=== PATIENT | male | born 1960 | race Caucasian/White ===

== ENCOUNTER 2016-10-25 03:29 | Inpatient (IN) | payer OTHER ==
[2016-10-25] VITALS (64 sets, daily range): BP systolic 97–230; BP diastolic 58–128; PULSE 72–132; RESP 0–39; TEMP 98.1–99.5; O2SAT 45–100
[~2016-10-25] VITALS: Ht 177.8 cm; Wt 127.2 kg
[~2016-10-25 03:29] MED LIST: LISI-363 PO; POTA-267 PO; WATER PILL PO
[2016-10-25] MEDS ORDERED: LISI-515 PO (03:56)
[2016-10-25] MEDS ORDERED: AMLO5TAB2 PO (03:56)
[2016-10-25] MEDS: RESP: ALBUTEROL 2.5 MG/IPRATROPIUM 0.5 MG NEB (SCH) INH ×7 (03:59→22:53)
[2016-10-25] MEDS ORDERED: methylPREDNISolone SOD SUCC 125 MG/2 ML VIAL IVP ONE (04:00)
[2016-10-25] MEDS ORDERED: SODIUM CHLORIDE 0.9% FLUSH 10 ML FLUSH IVF PRN (04:00)
[2016-10-25] MEDS ORDERED: ONDANSETRON HCL 4 MG/2 ML VIAL IV PUSH ONE (04:00)
[2016-10-25] MEDS ORDERED: MAGNESIUM SULFATE 1 GM PREMIX 100 ML IV ONE (04:00)
[2016-10-25] MEDS ORDERED: SODIUM CHLOR 0.9% 1000 ML INJ 1,000 ML IV ONE ×2 (04:00→05:00)
[2016-10-25 04:13] LABS: BLOOD GAS BASE EXCESS 6.2 mmol/L (-2-2); BLOOD GAS CARBOXYHEMOGLOBIN 5.5 % (0-4); BLOOD GAS HCO3 31 mmol/L (22-26); BLOOD GAS METHEMOGLOBIN 0.8 % (0-2); BLOOD GAS O2 HGB SATURATION 88 % (90-100); BLOOD GAS OXYGEN CONTENT 19.3 Vol % (12.0-20.0); BLOOD GAS PCO2 56 mmHg (38-42); BLOOD GAS PO2 69 mmHG (61-120); BLOOD GAS TOTAL HGB 15.6 G/DL (12.0-16.0); TEMP CORR TO 98.6
[2016-10-25 04:14] LABS: AUTOMATED NEUTROPHIL # 16.4 TH/MM3 (1.8-7.7); BASOPHIL # 0.2 TH/MM3 (0-0.2); BASOPHIL % 0.8 % (0.0-2.0); HEMATOCRIT 48.2 % (39.0-51.0); LYMPH % 3.8 % (9.0-44.0); LYMPHOCYTE # 0.7 TH/MM3 (1.0-4.8); MEAN CELL VOLUME 93.8 FL (80.0-100.0); MEAN CORPUSCULAR HEMOGLOBIN 30.7 PG (27.0-34.0); MEAN CORPUSCULAR HGB CONC 32.7 % (32.0-36.0); MONO % 6.1 % (0.0-8.0); NEUT % 89.3 % (16.0-70.0); PLATELET COUNT 230 TH/MM3 (150-450); RED BLOOD COUNT 5.13 MIL/MM3 (4.50-5.90); RED CELL DISTRIBUTION WIDTH 13.3 % (11.6-17.2); WHITE BLOOD COUNT 18.4 TH/MM3 (4.0-11.0)
[2016-10-25 04:14] LABS: CRITICAL VALUE YES; OXYGEN DEVICE NASAL CANNULA
--- NOTE | 2016-10-25 04:14 | PD ---
HPI Chief Complaint: Respiratory Symptoms Time Seen by Provider: 03:52 Travel History International Travel<30 days: No Contact w/Intl Traveler<30days: No Traveled to known affect area: No History of Present Illness HPI 55yo M with PMH of COPD, HTN presents to the ED with c/o sob, nausea, generalized fatigue and chills for 2 days. Pt keeps thinking it is from being out in the heat. Denies any fever, chest pain, vomiting, abdominal pain, focal weakness or numbness. Pt is saturating in the mid 80s on arrival with auditory wheezing and tachypnea. Pt placed on 4 liters of NC and saturating in the low 90. Pt does not use oxygen at home. Pt is also in sinus tachycardia in the 120s to low 130 with frequent PVCs. Pt also states 2 days ago, he came home and was sitting in a chair and was taking his shoes off when he passed out. States he woke up and was still on the chair. This has never happen before. PFSH Past Medical History Hx Anticoagulant Therapy: Yes (ASA) Cancer: No Cardiovascular Problems: Yes (HTN) High Cholesterol: Yes Chemotherapy: No COPD: Yes Diminished Hearing: No Gastrointestinal Disorders: No Hypertension: Yes Implanted Vascular Access Dvce: No Kidney Stones: Yes (15 YEARS AGO.) Neurologic: No Psychiatric: No Radiation Therapy: No Sleep Apnea: Yes Tetanus Vaccination: < 5 Years Influenza Vaccination: No Past Surgical History Surgical History: No Previous Surgery Other Surgery: No Social History Alcohol Use: No Tobacco Use: Yes (1 PPD) Substance Use: No Allergies-Medications (Allergen,Severity, Reaction): Coded Allergies: No Known Allergies (Unverified , 10/25/16) Reported Meds & Prescriptions Reported Meds & Active Scripts Active Reported Lisinopril 20 Mg Tab 20 Mg PO HS Amlodipine (Amlodipine Besylate) 5 Mg Tab 5 Mg PO HS Review of Systems Except as stated in HPI: all other systems reviewed are Neg Physical Exam Narrative GENERAL: 55yo SKIN: Focused skin assessment warm/dry. HEAD: Atraumatic. Normocephalic. EYES: Pupils equal and round. No scleral icterus. No injection or drainage. ENT: No nasal bleeding or discharge. Mucous membranes pink and moist. NECK: Trachea midline. No JVD. CARDIOVASCULAR: Tachycardic at 128bpm. No murmur appreciated. RESPIRATORY: + accessory muscle use. Expiratory wheezing bilaterally. GASTROINTESTINAL: Abdomen softly distended. Abdominal retractions. No tenderness to palpation. MUSCULOSKELETAL: No obvious deformities. No clubbing. No cyanosis. +Bilateral lower ext edema. NEUROLOGICAL: Awake and alert. No obvious cranial nerve deficits. Motor grossly within normal limits. Normal speech. PSYCHIATRIC: Appropriate mood and affect; insight and judgment normal. Data Data Last Documented VS Vital Signs Date Time Temp Pulse Resp B/P (MAP) Pulse Ox O2 Delivery O2 Flow Rate FiO2 10/25/16 05:33 92 Nasal Cannula 5.00 10/25/16 05:21 50 10/25/16 05:00 132 20 142/65 (90) 10/25/16 03:32 99.3 Orders Orders Complete Blood Count With Diff (10/25/16 03:52) Basic Metabolic Panel (Bmp) (10/25/16 03:52) B-Type Natriuretic Peptide (10/25/16 03:52) Act Partial Throm Time (Ptt) (10/25/16 03:52) Prothrombin Time / Inr (Pt) (10/25/16 03:52) Magnesium (Mg) (10/25/16 03:52) Troponin I (10/25/16 03:52) Arterial Blood Gas (Abg) (10/25/16 03:52) Blood Culture (10/25/16 03:52) Iv Access Insert/Monitor (10/25/16 03:52) Ecg Monitoring (10/25/16 03:52) Oximetry (10/25/16 03:52) Oxygen Administration (10/25/16 03:52) Chest, Single Ap (10/25/16 03:52) Sodium Chloride 0.9% Flush (Ns Flush) (10/25/16 04:00) Lactic Acid Sepsis Protocol (10/25/16 03:52) Sodium Chlor 0.9% 1000 Ml Inj (Ns 1000 M (10/25/16 04:00) Magnesium Sulfate 1 Gm Premix (Magnesium (10/25/16 04:00) Methylprednisolone So Succ Inj (Solumedr (10/25/16 04:00) Albuterol-Ipratropium Neb (Duoneb Neb) (10/25/16 04:00) Ondansetron Inj (Zofran Inj) (10/25/16 04:00) Ct Brain W/O Iv Contrast(Rout) (10/25/16 ) Ct Pulmonary Angiogram (10/25/16 ) Resp Bipap / Cpap Non Invas Vt (10/25/16 04:45) Sodium Chlor 0.9% 1000 Ml Inj (Ns 1000 M (10/25/16 05:00) Vancomycin Inj (Vancomycin Inj) (10/25/16 05:00) Piperacil-Tazo 3.375 Gm Premix (Zosyn 3. (10/25/16 05:00) Amlodipine (Norvasc) (10/25/16 21:00) Lisinopril (Prinivil) (10/25/16 21:00) Admit To Inpatient (10/25/16 ) Code Status (10/25/16 05:24) Vital Signs (Adult) ILDEFONSO.Q1H (10/25/16 05:24) Elevate Head Of Bed (10/25/16 05:24) Activity Oob With Assistance (10/25/16 05:24) Diet Heart Healthy (10/25/16 Breakfast) Sodium Chloride 0.9% Flush (Ns Flush) (10/25/16 05:30) Sodium Chloride 0.9% Flush (Ns Flush) (10/25/16 09:00) Acetaminophen (Tylenol) (10/25/16 05:30) Famotidine (Pepcid) (10/25/16 09:00) Ondansetron Inj (Zofran Inj) (10/25/16 05:30) Zolpidem (Ambien) (10/25/16 05:30) Albuterol-Ipratropium Neb (Duoneb Neb) (10/25/16 08:00) Albuterol-Ipratropium Neb (Duoneb Neb) (10/25/16 05:30) Complete Blood Count With Diff (10/26/16 04:00) Comprehensive Metabolic Panel (10/26/16 04:00) Magnesium (Mg) (10/26/16 04:00) Phosphorus (Po4) (10/26/16 04:00) Sputum Culture And Gram Stain (10/25/16 05:24) Chest, Single Ap (10/26/16 ) Pt Request For Service (10/25/16 05:24) Chair / Telemetry ILDEFONSO.Q8H (10/25/16 05:24) Enoxaparin Inj (Lovenox Inj) (10/25/16 06:00) Scd Bilateral/Knee High ILDEFONSO.BID (10/25/16 05:24) Thomas Bilateral/Knee High ILDEFONSO.QSHIFT (10/25/16 05:24) ^ Initiate Protocol (10/25/16 05:24) Instruction (10/25/16 05:24) Misc Nursing Information (10/25/16 05:30) Chlorhexidine 2% Cloth (Chlorhexidine 2% (10/26/16 04:00) Chlorhexidine 2% Cloth (Chlorhexidine 2% (10/25/16 05:30) Mrsa Pcr Surveillance (10/25/16 05:24) Docusate Sodium-Senna (Olga-Colace) (10/25/16 09:00) Magnesium Hydroxide Liq (Milk Of Magnesi (10/25/16 05:30) Sennosides (Senokot) (10/25/16 05:30) Bisacodyl Supp (Dulcolax Supp) (10/25/16 05:30) Lactulose Liq (Lactulose Liq) (10/25/16 05:30) Piperacil-Tazo 4.5 Gm Premix (Zosyn 4.5 (10/25/16 11:00) Azithromycin Inj (Zithromax Inj) (10/25/16 06:00) Methylprednisolone So Succ Inj (Solumedr (10/25/16 10:00) Inpatient Certification (10/25/16 ) Admit Order (Ed Use Only) (10/25/16 05:36) Labs Laboratory Tests Test 10/25/16 02:16 10/25/16 03:40 10/25/16 03:59 10/25/16 04:00 Blood Gas Puncture Site RT RADIAL LT RADIAL Blood Gas Patient Temperature 98.6 98.6 Blood Gas HCO3 31 mmol/L 31 mmol/L Blood Gas Base Excess 3.3 mmol/L 6.2 mmol/L Blood Gas Oxygen Saturation 85 % 88 % Arterial Blood pH 7.21 7.37 Arterial Blood Partial Pressure CO2 79 mmHg 56 mmHg Arterial Blood Partial Pressure O2 61 mmHg 69 mmHG Arterial Blood Oxygen Content 18.7 Vol % 19.3 Vol % Arterial Blood Carboxyhemoglobin 2.7 % 5.5 % Arterial Blood Methemoglobin 1.1 % 0.8 % Blood Gas Hemoglobin 15.6 G/DL 15.6 G/DL Oxygen Delivery Device VENTILATOR NASAL CANNULA Blood Gas Ventilator Setting SEE COMMENT Blood Gas Inspired Oxygen 55 % White Blood Count 18.4 TH/MM3 Red Blood Count 5.13 MIL/MM3 Hemoglobin 15.7 GM/DL Hematocrit 48.2 % Mean Corpuscular Volume 93.8 FL Mean Corpuscular Hemoglobin 30.7 PG Mean Corpuscular Hemoglobin Concent 32.7 % Red Cell Distribution Width 13.3 % Platelet Count 230 TH/MM3 Mean Platelet Volume 7.6 FL Neutrophils (%) (Auto) 89.3 % Lymphocytes (%) (Auto) 3.8 % Monocytes (%) (Auto) 6.1 % Eosinophils (%) (Auto) 0.0 % Basophils (%) (Auto) 0.8 % Neutrophils # (Auto) 16.4 TH/MM3 Lymphocytes # (Auto) 0.7 TH/MM3 Monocytes # (Auto) 1.1 TH/MM3 Eosinophils # (Auto) 0.0 TH/MM3 Basophils # (Auto) 0.2 TH/MM3 CBC Comment AUTO DIFF Differential Total Cells Counted 100 Neutrophils % (Manual) 75 % Band Neutrophils % 14 % Lymphocytes % 5 % Monocytes % 6 % Neutrophils # (Manual) 16.4 TH/MM3 Differential Comment FINAL DIFF MANUAL Atypical Lymphocytes % Toxic Vacuolation PRESENT Platelet Estimate NORMAL Platelet Morphology Comment NORMAL Red Cell Morphology Comment NORMAL Prothrombin Time 10.8 SEC Prothromb Time International Ratio 1.0 RATIO Activated Partial Thromboplast Time 32.5 SEC Blood Urea Nitrogen 14 MG/DL Creatinine 0.78 MG/DL Random Glucose 150 MG/DL Calcium Level 8.1 MG/DL Magnesium Level 2.2 MG/DL Sodium Level 133 MEQ/L Potassium Level 4.0 MEQ/L Chloride Level 93 MEQ/L Carbon Dioxide Level 32.2 MEQ/L Anion Gap 8 MEQ/L Estimat Glomerular Filtration Rate 103 ML/MIN Troponin I 0.06 NG/ML B-Type Natriuretic Peptide 168 PG/ML Blood Gas Liter Flow 4 L/M Lactic Acid Level 0.8 mmol/L [facility] Medical Decision Making Medical Screen Exam Complete: Yes Emergency Medical Condition: Yes Interpretation(s) EKG: Sinus tachycardia at 128bpm. Normal axis. Frequent PVCs. Differential Diagnosis Pneumonia vs. COPD exacerbation vs. ACS vs. CHF vs. electrolyte abnormality vs. dehydration vs. PE vs. arrhythmia Narrative Course 55yo M with sob, chills, nausea for 2 days. Pt in respiratory distress and hypoxic on arrival so placed on 4 liters nasal cannula. Pt given duonebs x 3, methylprednisolone 125mg IV. Pt placed on ekg monitor and showed sinus tachycardia in the 120s with frequent PVCs. Pt empirically given magnesium sulfate 1gm IV and NS IVF x1. IV inserted and sepsis labs drawn. Pt reevaluated at bedside and said he feels better and is less tachypneic but is still saturating at 90-91% on 5 L NC. Wanted to start pt on BIPAP but pt states he feels better now and wants to hold off. Good mental status. ABG on 4L NC showed chronic pCO2 retention at 56. pH is normal at 7.37. O2 sat is still low at 88%. Labs reviewed, leukocytosis at 18.4. Empirically given vancomycin and zosyn. Lactic acid normal at 0.8. Troponin mildly elevated at 0.06. BNP is only 168 so ordered second liter of NS IVF. CXR showed no focal infiltrate or effusion. Questionable vascular congestion pattern. This was changed to consolidation medial right lung after CT scan. Given hypoxemia and syncopal episode, will order CT angio to r/o PE. Pt reevaluated at bedside and is saturating at 87% on 5L NC. Pt agreed to BIPAP. Saturating at 100% on BIPAP. I reviewed the CXR and it has a vascular congestion pattern. Pt placed on BIPAP and is doing better with saturation at 100% on FiO2 50%. Discussed with Dr. Arrdeondo and accepted to his service. CT angio negative for PE. Large masslike consolidation in medial right lung involving posterior right upper lobe and right lower lobe. Pneumonia or underlying mass. CT brain negative. Pt awaiting ICU bed. Critical Care Narrative Aggregate critical care time was 50 minutes. Time to perform other separately billable procedures was not included in the critical care time. My time did not include minutes spent treating any other patients simultaneously or on activities that did not directly contribute to the patient's treatment. The services I provided to this patient were to treat and/or prevent clinically significant deterioration that could result in: cardiovascular collapse or . I provided critical care services requiring my management, as noted below: Chart data review, documentation time, medication orders and management, vital sign assessments/reviewing monitor data, ordering and reviewing lab tests, ordering and interpreting/reviewing x-rays and diagnostic studies, care of the patient and discussion of the patient with the admitting physicians. Diagnosis Primary Impression: Acute respiratory failure with hypoxia Admitting Information Admitting Physician Requests: Santa Romo DO Oct 25, 2016 04:14
[2016-10-25 04:15] LABS: DRAW SITE LT RADIAL; LITER FLOW 4 L/M; NUMBER OF ARTERIAL PUNCTURES 1; STAT YES; ULNAR PULSE PRESENT
--- NOTE | 2016-10-25 04:15 | RADRPT ---
EXAM DATE/TIME: 10/25/2016 04:06 CORRECTION Corrected on: October 25, 2016; [facility] COMPARISON: No previous studies available for comparison. INDICATIONS : Shortness of breath. MEDICAL HISTORY : Chronic obstructive pulmonary disease. Hypertension SURGICAL HISTORY : None. ENCOUNTER: Initial ACUITY: 3 days PAIN SCORE: 0/10 LOCATION: Bilateral chest FINDINGS: A single view of the chest demonstrates a mild cardiomegaly. Tortuous aorta. There is consolidation i n the medial aspect of the right lung which is somewhat masslike in appearance. See CT report. CONCLUSION: 1. Consolidation medial right lung. Cristofer De Santiago MD on October 25, 2016 at 4:12 Board Certified Radiologist. This report was verified electronically. Cristofer De Santiago MD on October 25, 2016 at 6:50 Board Certified Radiologist. This report was verified electronically.
[2016-10-25 04:18] LABS: HEMO FLAGS AUTO DIFF
[2016-10-25 04:30] LABS: BICARBONATE 32.2 MEQ/L (21.0-32.0); MAGNESIUM 2.2 MG/DL (1.5-2.5)
[2016-10-25 04:31] LABS: APTT (PATIENT) 32.5 SEC (24.3-30.1); PROTHROMBIN TIME - PATIENT 10.8 SEC (9.8-11.6)
[2016-10-25] MEDS ORDERED: VANCOMYCIN IV ONE (05:00)
[2016-10-25] MEDS ORDERED: SODIUM CHLORID 0.9% IV ONE (05:00)
[2016-10-25] MEDS ORDERED: PIPERACIL-TAZO 3.375 GM PREMIX 50 ML IV ONE (05:00)
[2016-10-25 05:07] LABS: BANDS 14 % (0-6); NEUTROPHIL # MANUAL DIFF 16.4 TH/MM3 (1.8-7.7); PLATELET ESTIMATE SMEAR NORMAL (NORMAL); PLATELET MORPHOLOGY NORMAL (NORMAL); POLYS (SEG NEUTROPHILS) 75 % (16-70); SCAN/DIFF FINAL DIFF MANUAL; WBC DIFF SAMPLE 100
[2016-10-25 05:08] LABS: TOXIC VACUOLATION PRESENT (NONE SEEN)
[2016-10-25] MEDS ORDERED: MISCELLANEOUS NURSING INFORMATION XX SCH (05:30)
[2016-10-25] MEDS ORDERED: MAGNESIUM HYDROXIDE SUSP 30 ML CUP PO PRN (05:30)
[2016-10-25] MEDS ORDERED: LACTULOSE SYRUP 20 GM/30 ML CUP PO PRN (05:30)
[2016-10-25] MEDS ORDERED: ONDANSETRON HCL 4 MG/2 ML VIAL IV PRN (05:30)
[2016-10-25] MEDS ORDERED: ZOLPIDEM TARTRATE 5 MG TAB PO PRN (05:30)
[2016-10-25] MEDS ORDERED: RESP: ALBUTEROL 2.5 MG/IPRATROPIUM 0.5 MG NEB (PRN) INH (05:30)
[2016-10-25] MEDS ORDERED: CHLORHEXIDINE GLUCONATE 2 % 1 PACK (2 CLOTHS) TOP PRN (05:30)
[2016-10-25] MEDS ORDERED: BISACODYL 10 MG SUPP RECTAL PRN (05:30)
--- NOTE | 2016-10-25 05:40 | HHI.HP ---
HPI Service Critical Care Medicine Primary Care Physician No Primary Care Physician Admission Diagnosis Diagnosis: Travel History International Travel<30 Days: No Contact w/Intl Traveler <30 Da: No Traveled to Known Affected Are: No History of Present Illness 55-year-old very pleasant gentleman with past medical history of COPD, and hypertension presents complaining of shortness of breath and nausea, generalized fatigue and chills for 2 days. He thinks it has been from being out in the heat. Denies any fever, chest pain, vomiting, abdominal pain, focal weakness or numbness. In the emergency department his saturation was in mid 80s on arrival with auditory wheezing and tachypnea. He was placed on 4 liters of NC and saturating in the low 90. He does not use oxygen at home. He also mentioned 2 days ago, he came home and was sitting in a chair and was taking his shoes off when he passed out. States he woke up and was still on the chair. This has never happen before. Review of Systems Constitutional: COMPLAINS OF: Fatigue, Chills, DENIES: Diaphoretic episodes, Fever, Weight gain, Weight loss, Dizziness, Change in appetite, Night Sweats Endocrine: DENIES: Heat/cold intolerance, Polydipsia, Polyuria, Polyphagia Eyes: DENIES: Blurred vision, Diplopia, Eye inflammation, Eye pain, Vision loss , Photosensitivity, Double Vision Ears, nose, mouth, throat: DENIES: Tinnitus, Hearing loss, Vertigo, Nasal discharge, Oral lesions, Throat pain, Hoarseness, Ear Pain, Running Nose, Epistaxis, Sinus Pain, Toothache, Odynophagia Respiratory: COMPLAINS OF: Shortness of breath, DENIES: Apneas, Cough, Snoring , Wheezing, Hemoptysis, Sputum production Cardiovascular: COMPLAINS OF: Dyspnea on Exertion, DENIES: Chest pain, Palpitations, Syncope, PND, Lower Extremity Edema, Orthopnea, Claudication Gastrointestinal: COMPLAINS OF: Nausea, DENIES: Abdominal pain, Black stools, Bloody stools, Constipation, Diarrhea, Vomiting, Difficulty Swallowing, Anorexia Genitourinary: DENIES: Sexual dysfunction, Urinary frequency, Urinary incontinence, Urgency, Hematuria, Dysuria, Nocturia, Penile Discharge, Testicular Pain, Testicular Swelling Musculoskeletal: DENIES: Joint pain, Muscle aches, Stiffness, Joint Swelling, Back pain, Neck pain Integumentary: DENIES: Abnormal pigmentation, Nail changes, Pruritus, Rash Hematologic/lymphatic: DENIES: Bruising, Lymphadenopathy Immunologic/allergic: DENIES: Eczema, Urticaria Neurologic: DENIES: Abnormal gait, Headache, Localized weakness, Paresthesias, Seizures, Speech Problems, Tremor, Poor Balance Psychiatric: DENIES: Anxiety, Confusion, Mood changes, Depression, Hallucinations, Agitation, Suicidal Ideation, Homicidal Ideation, Delusions Past Family Social History Allergies: Coded Allergies: No Known Allergies (Unverified , 10/25/16) Past Medical History COPD Hypertension Past Surgical History None Reported Medications Reported Meds & Active Scripts Active Reported Lisinopril 20 Mg Tab 20 Mg PO HS Amlodipine (Amlodipine Besylate) 5 Mg Tab 5 Mg PO HS Active Ordered Medications Current Medications Medications (Trade) Dose Ordered Sig/Audelia Route PRN Reason Start Time Stop Time Status Last Admin Dose Admin Sodium Chloride (NS Flush) 2 ml UNSCH PRN IVF FLUSH AFTER USING IV ACCESS 10/25/16 04:00 Sodium Chloride 1,000 ml @ 999 mls/hr BOLUS ONCE IV 10/25/16 05:00 10/25/16 06:00 10/25/16 05:30 Vancomycin HCl 2050 mg/Sodium Chloride 520.5 ml @ 250 mls/hr ONCE ONCE IV 10/25/16 05:00 10/25/16 07:04 Amlodipine Besylate (Norvasc) 5 mg HS PO 10/25/16 21:00 Lisinopril (Prinivil) 20 mg HS PO 10/25/16 21:00 Sodium Chloride (NS Flush) 2 ml UNSCH PRN .XX FLUSH AFTER USING IV ACCESS 10/25/16 05:30 UNV Sodium Chloride (NS Flush) 2 ml BID .XX 10/25/16 09:00 UNV Acetaminophen (Tylenol) 650 mg Q6H PRN PO PAIN 1-10 AND/OR FEVER >101F 10/25/16 05:30 UNV Famotidine (Pepcid) 20 mg Q12HR PO 10/25/16 09:00 UNV Ondansetron HCl (Zofran Inj) 4 mg Q6H PRN IV NAUSEA OR VOMITING 10/25/16 05:30 UNV Zolpidem Tartrate (Ambien) 5 mg HS PRN PO INSOMNIA 10/25/16 05:30 UNV Albuterol/ Ipratropium (Duoneb Neb) 1 ampule Q4HR NEB INH 10/25/16 08:00 UNV Albuterol/ Ipratropium (Duoneb Neb) 1 ampule Q2HR NEB PRN INH WHEEZING 10/25/16 05:30 UNV Enoxaparin Sodium (Lovenox Inj) 40 mg Q24H SQ 10/25/16 05:30 UNV Miscellaneous Information 1 Q361D XX 10/25/16 05:30 UNV Chlorhexidine Gluconate (Chlorhexidine 2% Cloth) 3 pack Taper DAILY@04 TOP 10/26/16 04:00 10/22/17 03:59 UNV Chlorhexidine Gluconate (Chlorhexidine 2% Cloth) 3 pack UNSCH PRN TOP HYGIENIC CARE 10/25/16 05:30 UNV Senna/Docusate Sodium (Olga-Colace) 1 tab BID PO 10/25/16 09:00 UNV Magnesium Hydroxide (Milk Of Magnesia Liq) 30 ml Q12H PRN PO MILD - MODERATE CONSTIPATION 10/25/16 05:30 UNV Sennosides (Senokot) 17.2 mg Q12H PRN PO MODERATE - SEVERE CONSTIPATION 10/25/16 05:30 UNV Bisacodyl (Dulcolax Supp) 10 mg DAILY PRN RECTAL SEVERE CONSITIPATION 10/25/16 05:30 UNV Lactulose (Lactulose Liq) 30 ml DAILY PRN PO SEVERE CONSITIPATION 10/25/16 05:30 UNV Family History No family history of early coronary artery disease or cancer Social History Smoker one pack per day Denies alcohol or illicit drug abuse Physical Exam Vital Signs Vital Signs Date Time Temp Pulse Resp B/P (MAP) Pulse Ox O2 Delivery O2 Flow Rate FiO2 10/25/16 05:21 100 BiPAP 50 10/25/16 04:55 94 40 10/25/16 04:42 10/25/16 04:42 92 Nasal Cannula 4.00 10/25/16 03:59 95 Nasal Cannula 4.00 10/25/16 03:51 123 165/77 (106) 97 Nasal Cannula 4.00 10/25/16 03:43 20 93 Room Air 4.00 10/25/16 03:32 99.3 101 28 140/75 (96) 90 Room Air Physical Exam GENERAL: Morbidly obese male in moderate distress on facemask BiPAP SKIN: Warm and dry. HEAD: Normocephalic. EYES: No scleral icterus. No injection or drainage. NECK: Supple, trachea midline. No JVD or lymphadenopathy. CARDIOVASCULAR: Regular rate and rhythm without murmurs, gallops, or rubs. RESPIRATORY: Breath sounds equal bilaterally. Some accessory muscle use. Bilateral wheezing GASTROINTESTINAL: Abdomen soft, non-tender, nondistended. MUSCULOSKELETAL: No cyanosis, or edema. BACK: Nontender without obvious deformity. NEURO EXAM: GCS: M6 V5 E4 Mental Status: The patient is alert and oriented to person, place Cranial Nerves: Pupils are round, reactive to light. Reflexes: Biceps, patellar, and Achilles are 2/4 bilaterally. No clonus. Motor: Good muscle tone. Strength is 5/5 bilaterally. Laboratory Laboratory Tests Test 10/25/16 03:40 10/25/16 03:59 10/25/16 04:00 White Blood Count 18.4 Red Blood Count 5.13 Hemoglobin 15.7 Hematocrit 48.2 Mean Corpuscular Volume 93.8 Mean Corpuscular Hemoglobin 30.7 Mean Corpuscular Hemoglobin Concent 32.7 Red Cell Distribution Width 13.3 Platelet Count 230 Mean Platelet Volume 7.6 Neutrophils (%) (Auto) 89.3 Lymphocytes (%) (Auto) 3.8 Monocytes (%) (Auto) 6.1 Eosinophils (%) (Auto) 0.0 Basophils (%) (Auto) 0.8 Neutrophils # (Auto) 16.4 Lymphocytes # (Auto) 0.7 Monocytes # (Auto) 1.1 Eosinophils # (Auto) 0.0 Basophils # (Auto) 0.2 CBC Comment AUTO DIFF Differential Total Cells Counted 100 Neutrophils % (Manual) 75 Band Neutrophils % 14 Lymphocytes % 5 Monocytes % 6 Neutrophils # (Manual) 16.4 Differential Comment FINAL DIFF MANUAL Atypical Lymphocytes Toxic Vacuolation PRESENT Platelet Estimate NORMAL Platelet Morphology Comment NORMAL Red Cell Morphology Comment NORMAL Prothrombin Time 10.8 Prothromb Time International Ratio 1.0 Activated Partial Thromboplast Time 32.5 Blood Urea Nitrogen 14 Creatinine 0.78 Random Glucose 150 Calcium Level 8.1 Magnesium Level 2.2 Sodium Level 133 Potassium Level 4.0 Chloride Level 93 Carbon Dioxide Level 32.2 Anion Gap 8 Estimat Glomerular Filtration Rate 103 Troponin I 0.06 B-Type Natriuretic Peptide 168 Blood Gas Puncture Site LT RADIAL Blood Gas Patient Temperature 98.6 Blood Gas HCO3 31 Blood Gas Base Excess 6.2 Blood Gas Oxygen Saturation 88 Arterial Blood pH 7.37 Arterial Blood Partial Pressure CO2 56 Arterial Blood Partial Pressure O2 69 Arterial Blood Oxygen Content 19.3 Arterial Blood Carboxyhemoglobin 5.5 Arterial Blood Methemoglobin 0.8 Blood Gas Hemoglobin 15.6 Oxygen Delivery Device NASAL CANNULA Blood Gas Liter Flow 4 Lactic Acid Level 0.8 Date/Time Source Procedure Growth Status 10/25/16 03:50 Blood Peripheral Aerobic Blood Culture Pending Received 10/25/16 03:50 Blood Peripheral Anaerobic Blood Culture Pending Received Result Diagram: 10/25/16 0340 10/25/16 034 Imaging Last 24 hours Impressions Chest X-Ray 10/25/16 035 Signed Impressions: Service Date/Time: , October 25, 2016 04:06 - CONCLUSION: 1. No focal infiltrate or effusion. Questionable vascular congestion pattern. Cristofer De Santiago MD Caprini VTE Risk Assessment Caprini VTE Risk Assessment: Mod/High Risk (score >= 2) Caprini Risk Assessment Model Point Value = 1 Point Value = 2 Point Value = 3 Point Value = 5 Age 41-60 Minor surgery BMI > 25 kg/m2 Swollen legs Varicose veins or History of unexplained or recurrent spontaneous Oral contraceptives or hormone replacement Sepsis (< 1 month) Serious lung disease, including pneumonia (< 1 month) Abnormal pulmonary function Acute myocardial infarction Congestive heart failure (< 1 month) History of inflammatory bowel disease Medical patient at bed rest Age 61-74 Arthroscopic surgery Major open surgery (> 45 min) Laparoscopic surgery (> 45 min) Malignancy Confined to bed (> 72 hours) Immobilizing plaster cast Central venous access Age >= 75 History of VTE Family history of VTE Factor V Leiden Prothrombin [id number] Lupus anticoagulant Anticardiolipin antibodies Elevated serum homocysteine Heparin-induced thrombocytopenia Other congenital or acquired thrombophilia Stroke (< 1 month) Elective arthroplasty Hip, pelvis, or leg fracture Acute spinal cord injury (< 1 month) Prophylaxis Regimen Total Risk Factor Score Risk Level Prophylaxis Regimen 0-1 Low Early ambulation 2 Moderate Order ONE of the following: *Sequential Compression Device (SCD) *Heparin 5000 units SQ BID 3-4 Higher Order ONE of the following medications: *Heparin 5000 units SQ TID *Enoxaparin/Lovenox 40 mg SQ daily (WT < 150 kg, CrCl > 30 mL/min) *Enoxaparin/Lovenox 30 mg SQ daily (WT < 150 kg, CrCl > 10-29 mL/min) *Enoxaparin/Lovenox 30 mg SQ BID (WT < 150 kg, CrCl > 30 mL/min) AND/OR *Sequential Compression Device (SCD) 5 or more Highest Order ONE of the following medications: *Heparin 5000 units SQ TID (Preferred with Epidurals) *Enoxaparin/Lovenox 40 mg SQ daily (WT < 150 kg, CrCl > 30 mL/min) *Enoxaparin/Lovenox 30 mg SQ daily (WT < 150 kg, CrCl > 10-29 mL/min) *Enoxaparin/Lovenox 30 mg SQ BID (WT < 150 kg, CrCl > 30 mL/min) AND *Sequential Compression Device (SCD) Assessment and Plan Assessment and Plan Respiratory failure - COPD exacerbation - Possible pneumonia - community-acquired - Obesity hypoventilation syndrome - Tobacco use disorder - Empiric antibiotics - IV steroids - DuoNeb scheduled and when necessary - Cultures to follow - BiPAP as needed Syncope - Likely from dehydration and overheat - 2-D echo - Series of troponins - Series of EKGs - Ultrasound carotids Hypertension - Norvasc - Lisinopril DVT GI prophylaxis - Teds SCDs subcutaneous Lovenox - Pepcid Critical Care: The total critical care time was 35 minutes. Time to perform other separately billable procedures was not included in the critical care time. Ko Arredondo MD Oct 25, 2016 05:40
[2016-10-25] MEDS: AZITHROMYCIN INJ 500 MG in SODIUM CHLOR 0.9% 250 ML INJ 250 ML IV SCH (06:17)
[2016-10-25] MEDS ORDERED: IOHEXOL 350 MG/ML 10 ML VIAL (for RAD DIAG) IVCONTRAST ONE (06:30)
--- NOTE | 2016-10-25 06:41 | RADRPT ---
EXAM DATE/TIME: 10/25/2016 06:08 [facility] COMPARISON: No previous studies available for comparison. INDICATIONS : Syncope and dizziness. RADIATION DOSE: 60.59 CTDIvol (mGy) ; Tabletop CT Head MEDICAL HISTORY : Hypertension. Chronic obstructive pulmonary disease. SURGICAL HISTORY : None. ENCOUNTER: Initial ACUITY: 1 day PAIN SCALE: 0/10 LOCATION: cranial TECHNIQUE: Multiple contiguous axial images were obtained of the head. Using automated exposure control and adj ustment of the mA and/or kV according to patient size, radiation dose was kept as low as reasonably a chievable to obtain optimal diagnostic quality images. DICOM format image data is available electro nically for review and comparison. FINDINGS: CEREBRUM: The ventricles are normal for age. No evidence of midline shift, mass lesion, hemorrhage or acute in farction. No extra-axial fluid collections are seen. POSTERIOR FOSSA: The cerebellum and brainstem are intact. The 4th ventricle is midline. The cerebellopontine angle i s unremarkable. EXTRACRANIAL: The visualized portion of the orbits is intact. SKULL: The calvaria is intact. No evidence of skull fracture. CONCLUSION: 1. No acute intracranial abnormalities. Cristofer De Santiago MD on October 25, 2016 at 6:37 Board Certified Radiologist. This report was verified electronically.
[2016-10-25] MEDS: ENOXAPARIN SODIUM 40 MG/0.4 ML SYRINGE SQ SCH (06:49)
--- NOTE | 2016-10-25 06:49 | RADRPT ---
EXAM DATE/TIME: 10/25/2016 06:12 [facility] COMPARISON: No previous studies available for comparison. INDICATIONS : Shortness of breath. Evaluate for emboli. IV CONTRAST: 75 cc Omnipaque 350 (iohexol) IV RADIATION DOSE: 30.61 CTDIvol (mGy) ; Patient body habitus MEDICAL HISTORY : Chronic obstructive pulmonary disease. Hypertension. SURGICAL HISTORY : None. ENCOUNTER: Initial ACUITY: 2 days PAIN SCALE: 0/10 LOCATION: Bilateral chest TECHNIQUE: Volumetric scanning of the chest was performed using a pulmonary embolism protocol MIP images were re constructed. Using automated exposure control and adjustment of the mA and/or kV according to patien t size, radiation dose was kept as low as reasonably achievable to obtain optimal diagnostic quality images. DICOM format image data is available electronically for review and comparison. Follow-up recommendations for detected pulmonary nodules are based at a minimum on nodule size and pa tient risk factors according to Fleischner Society Guidelines. FINDINGS: No definite filling defects identified to suggest pulmonary embolus. Moderate coronary calcifications . There is an area of masslike consolidation involving the posterior segment right upper lobe in the me dial aspect of the right lower lobe extending into the right costophrenic angle with small right effu bren. They are enlarged lymph nodes measuring up to 2.1 cm at the right hilum and 2.1 cm in the subca rinal region. There is some dependent atelectasis in the left lung. CONCLUSION: 1. Negative for pulmonary embolism. 2. There is a fairly large area of masslike consolidation in the medial right lung involving posterio r segment right upper lobe and medial aspect of right lower lobe. There is associated right hilar and mediastinal adenopathy measuring up to 2.1 cm. Differential diagnosis includes pneumonia or underlyi ng lung neoplasm. Close followup imaging recommended after treatment for pneumonia, to assess for und erlying mass. Cristofer De Santiago MD on October 25, 2016 at 6:40 Board Certified Radiologist. This report was verified electronically.
[2016-10-25] MEDS: DOCUSATE SODIUM 50 MG/SENNA 8.6 MG TAB PO SCH ×2 (09:00→21:08)
--- NOTE | 2016-10-25 09:25 | RADRPT ---
EXAM DATE/TIME: 10/25/2016 08:27 [facility] COMPARISON: No previous studies available for comparison. INDICATIONS : Syncope. MEDICAL HISTORY : Hypertension. Hypercholesterolemia. Dentures. Anticoagulant therapy. COPD. Sleep apnea. Dyspnea. Ki dney stones. Back pain. SURGICAL HISTORY : None. ENCOUNTER: Initial ACUITY: 1 day PAIN SCORE: 03/06 LOCATION: Bilateral neck PEAK SYSTOLIC VELOCITIES (cm/sec): ICA/CCA RATIO: Right: 1.0 Left: 1.1 ICA: Right: 153.1 Left: 175.2 CCA: Right: 147.2 Left: 155.0 ECA: Right: 224.9 Left: 183.9 VERTEBRAL: Right: 124.0 antegrade Left: 80.6 antegrade Elevated flow velocities and ICA/CCA ratios have been found to correlate with increased degrees of vessel stenosis, calculated as percentage of diameter relative to a normal segment of distal ICA/CCA FINDINGS: RIGHT CAROTID: No significant stenosis is visualized. Mild to moderate plaque is noted. The waveforms are within nor mal limits. LEFT CAROTID: No significant stenosis is visualized. Mild to moderate plaque is present. The waveforms are within normal limits. VERTEBRAL ARTERIES: Antegrade flow is seen in both vertebral arteries. MISCELLANEOUS: None. CONCLUSION: Mild to moderate plaque in both carotid systems with less than 40% diameter stenosis by velocity criteria. Jhonathan Dietz MD on October 25, 2016 at 9:23 Board Certified Radiologist. This report was verified electronically.
[2016-10-25] MEDS: FAMOTIDINE 20 MG TAB PO SCH ×2 (09:27→21:08)
[2016-10-25] MEDS: SODIUM CHLORIDE 0.9% FLUSH 10 ML FLUSH SCH ×2 (09:28→21:08)
[2016-10-25] MEDS ORDERED: methylPREDNISolone SOD SUCC 40 MG/1 ML VIAL IV SCH (10:00)
[2016-10-25] MEDS: PIPERACIL-TAZO 4.5 GM PREMIX 100 ML IV SCH ×3 (11:04→22:06)
[2016-10-25] MEDS ORDERED: ROCURONIUM INJ 50 MG/5 ML VIAL ONE (13:17)
[2016-10-25] MEDS ORDERED: ETOMIDATE 40 MG/20 ML VIAL ONE (13:17)
[2016-10-25] MEDS ORDERED: ETOMIDATE 40 MG/20 ML VIAL IV PUSH ONE (13:30)
[2016-10-25] MEDS ORDERED: ROCURONIUM INJ 100 MG/10 ML VIAL IV ONE (13:30)
[2016-10-25] MEDS: PROPOFOL 1000 MG/100 ML INJ 100 ML IV PRN ×4 (13:49→22:06)
[2016-10-25] MEDS: SODIUM CHLOR 0.9% 1000 ML INJ 1,000 ML IV SCH ×2 (13:54→23:08)
--- NOTE | 2016-10-25 14:06 | PD.PROCEDR ---
Procedure Note Procedure DATE: 10/25/2016 PROCEDURE: Orotracheal intubation INDICATION: Respiratory failure DETAILS OF PROCEDURE The patient was placed in optimal position and preoxygenated with 100% FiO2 via bag valve mask. At the start oxygen saturation was 100%. The patient was administered 40 milligrams etomidate IV and 100 milligrams rocuronium IV. I entered the oropharynx with a size 4 GVL glidescope blade and obtained a grade 2 view of the airway. On single attempt a size 8.0 cuffed endotracheal tube was passed through the vocal cords. Correct tube location was confirmed with end tidal CO2 detector and by auscultating over bilateral lung graves. The endotracheal tube was secured with adhesive tape at a depth of 24 cm at the lips. The patient was connected to the ventilator. The patient tolerated the procedure well without any apparent complications. Oxygen saturations were maintained greater than 95% all times. STAT chest x-ray pending at time of dictation. Ubaldo Story MD Oct 25, 2016 14:06
--- NOTE | 2016-10-25 14:10 | HHI.CCPN ---
Subjective Remarks/Hospital Course 55-year-old very pleasant gentleman with past medical history of COPD, and hypertension presents complaining of shortness of breath and nausea, generalized fatigue and chills for 2 days. He thinks it has been from being out in the heat. Denies any fever, chest pain, vomiting, abdominal pain, focal weakness or numbness. In the emergency department his saturation was in mid 80s on arrival with auditory wheezing and tachypnea. He was placed on 4 liters of NC and saturating in the low 90. He does not use oxygen at home. He also mentioned 2 days ago, he came home and was sitting in a chair and was taking his shoes off when he passed out. States he woke up and was still on the chair. This has never happen before. Subjective 10/25: Patient intubated secondary to increasing oxygen requirements, altered mental status. Discussed with son. Somewhat hypertensive post intubation. Objective Vital Signs Date Time Temp Pulse Resp B/P (MAP) Pulse Ox O2 Delivery O2 Flow Rate FiO2 10/25/16 13:59 91 50 10/25/16 11:07 Simple Mask 9.00 10/25/16 10:02 114 10/25/16 10:00 22 123/70 (87) 10/25/16 08:00 99.5 Intake and Output 10/25/16 10/25/16 10/26/16 08:00 16:00 00:00 Intake Total 2400 ml 671 ml Balance 2400 ml 671 ml Result Diagram: 10/25/16 0340 10/25/16 0340 Other Results Microbiology Date/Time Source Procedure Growth Status 10/25/16 03:50 Blood Peripheral Aerobic Blood Culture Pending Received 10/25/16 03:50 Blood Peripheral Anaerobic Blood Culture Pending Received Imaging Last Impressions Chest X-Ray 10/25/16 0352 Signed Impressions: Service Date/Time: September 04:06 - CONCLUSION: 1. Consolidation medial right lung. Cristofer De Santiago MD Head CT 10/25/16 0000 Signed Impressions: Service Date/Time: September 06:08 - CONCLUSION: 1. No acute intracranial abnormalities. Cristofer DeS antiago MD Carotid Artery Ultrasound 10/25/16 0000 Signed Impressions: Service Date/Time: September 08:27 - CONCLUSION: Mild to moderate plaque in both carotid systems with less than 40%% diameter stenosis by velocity criteria. Jhonathan Dietz MD CT Angiography 10/25/16 0000 Signed Impressions: Service Date/Time: September 06:12 - CONCLUSION: 1. Negative for pulmonary embolism. 2. There is a fairly large area of masslike consolidation in the medial right lung involving posterior segment right upper lobe and medial aspect of right lower lobe. There is associated right hilar and mediastinal adenopathy measuring up to 2.1 cm. Differential diagnosis includes pneumonia or underlying lung neoplasm. Close followup imaging recommended after treatment for pneumonia, to assess for underlying mass. Cristofer De Santiago MD Objective Remarks GENERAL: 55-year-old male, currently orotracheally intubated SKIN: Warm and dry. No rash HEAD: Normocephalic. EYES: No scleral icterus. No injection or drainage. NECK: Supple, trachea midline. obese CARDIOVASCULAR: Tachycardia, RR. S1, S2 no S4 without murmur. Distant RESPIRATORY: Distant breath sounds. Positive accessory muscle use. GASTROINTESTINAL: Abdomen soft, obese/protuberant. Hypoactive bowel sounds are appreciated MUSCULOSKELETAL: Nonpitting bilateral lower extremity edema. BACK: Nontender without obvious deformity. NEURO EXAM: Cranial nerves II through XII grossly intact prior to intubation. Strength was equal symmetric. Normal sensation. A/P Assessment and Plan Neuro/Psych: Syncope Patient is currently on propofol/fentanyl for sedation/analgesia while intubated Goal of RA SS -2 Daily sedation vacation Head CT on admission revealed no acute intracranial findings Carotid ultrasound less than 50% stenosis bilaterally CV: Hypertension - Currently on normal saline at 100 cc an hour - Norvasc 5 mg daily - Lisinopril 20 mg daily Resp: Respiratory failure - COPD exacerbation - Possible pneumonia - community-acquired - Obesity hypoventilation syndrome - Tobacco use disorder CT pulmonary revealed no pulmonary nose. Masslike consolidation in the posterior right upper lobe and medial right lower lobe. Small pleural effusion. Lymphadenopathy to 1 cm right hilum and subcarinal. Atelectasis left lower lobe. ACV 16/600/8/100 Wean FiO2 maintain saturations greater than equal to 90% Duo nebs every 4 hours with albuterol every 2 hours when necessary dyspnea Pulmicort twice a day Solu-Medrol 60 milligrams IV every 8 hours Daily sedation vacation GI: Patient is currently nothing by mouth - LIWS Pepcid for GI prophylaxis Olga-Colace for bowel regimen : Condom catheter Endo: Hyperglycemia Sliding-scale insulin with Accu-Cheks to maintain euglycemia Renal: Monitor urine output Accurate I's and O's Heme: Leukocytosis Monitor CBC daily. Follow trends ID: Pneumonia - community-acquired Zosyn/Zithromax day #1 Blood cultures 2, sputum, urine Legionella and pneumococcal antigens and influenza pending FEN: Replacing electrolyte as clinically indicated MSK: PT evaluate and treat Access - Utilize peripheral IV. Central line if indicated Prophylaxis - GI -famotidine - DVT - SCD/enoxaparin Additional 20 minutes critical care time Ubaldo Story MD Oct 25, 2016 14:10
[2016-10-25] MEDS ORDERED: DEXTROSE 50% IN WATER 50 ML VIAL(D50) IV PRN (14:15)
[2016-10-25] MEDS ORDERED: GLUCAGON 1 MG/ML VIAL OTHER PRN (14:15)
[2016-10-25 14:33] LABS: BLOOD GAS BASE EXCESS 3.3 mmol/L (-2-2); BLOOD GAS CARBOXYHEMOGLOBIN 2.7 % (0-4); BLOOD GAS HCO3 31 mmol/L (22-26); BLOOD GAS METHEMOGLOBIN 1.1 % (0-2); BLOOD GAS O2 HGB SATURATION 85 % (90-100); BLOOD GAS OXYGEN CONTENT 18.7 Vol % (12.0-20.0); BLOOD GAS PCO2 79 mmHg (38-42); BLOOD GAS PO2 61 mmHg (61-120); BLOOD GAS TOTAL HGB 15.6 G/DL (12.0-16.0); TEMP CORR TO 98.6
[2016-10-25 14:35] LABS: CRITICAL VALUE YES; OXYGEN DEVICE VENTILATOR
[2016-10-25 14:36] LABS: DRAW SITE RT RADIAL; FIO2 55 %; NUMBER OF ARTERIAL PUNCTURES 1; STAT NO; ULNAR PULSE PRESENT
[2016-10-25] MEDS: fentaNYL DRIP 250 ML IV PRN ×2 (14:56→23:07)
--- NOTE | 2016-10-25 15:10 | RADRPT ---
EXAM DATE/TIME: 10/25/2016 13:42 [facility] COMPARISON: CHEST SINGLE AP, October 25, 2016, 4:06. INDICATIONS : Evaluate intubation MEDICAL HISTORY : Chronic obstructive pulmonary disease. Hypertension SURGICAL HISTORY : None. ENCOUNTER: Subsequent ACUITY: 3 days PAIN SCORE: Non-responsive. LOCATION: chest FINDINGS: 2 portable frontal views of the chest shows endotracheal tube with the tip 2 cm proximal to the ester a. Nasogastric tube is seen with the tip in the lower thoracic esophagus. The heart is moderately lar ge. Pulmonary vascular engorgement observed. Small bilateral pleural effusions and bibasilar pulmonar y infiltrates. The infiltrates are more pronounced on the right. Appearance is considerably worse fro m the earlier study. CONCLUSION: Worsening bilateral pulmonary infiltrates and small bilateral pleural effusions. Fito Mar Jr., MD on October 25, 2016 at 15:05 Board Certified Radiologist. This report was verified electronically.
[2016-10-25] MEDS: RESP: SODIUM CHLORIDE 3% 4 ML NEB NEB SCH ×3 (15:23→22:53)
[2016-10-25] MEDS: methylPREDNISolone SOD SUCC 125 MG/2 ML VIAL IV SCH ×2 (15:57→22:06)
--- NOTE | 2016-10-25 16:16 | ECHRPT ---
Indication: cva/tia CONCLUSIONS The transthoracic study is normal by two-dimensional, color flow imaging and Doppler interrogation. BP: / HR: Rhythm: MEASUREMENTS (Male / Female) Normal Values Technical Quality:Technically difficult study 2D ECHO LV Diastolic Diameter PLAX 4.2 cm 4.2 - 5.9 / 3.9 - 5.3 cm LV Systolic Diameter PLAX 3.1 cm IVS Diastolic Thickness 1.7 cm 0.6 - 1.0 / 0.6 - 0.9 cm LVPW Diastolic Thickness 1.5 cm 0.6 - 1.0 / 0.6 - 0.9 cm LV Relative Wall Thickness 0.8 RV Internal Dim ED PLAX 4.2 cm DOPPLER Mitral E Point Velocity 72.1 cm/s Mitral A Point Velocity 61.7 cm/s Mitral E to A Ratio 1.2 LV E' Lateral Velocity 8.7 cm/s Mitral E to LV E' Lateral Ratio 8.3 LV E' Septal Velocity 7.4 cm/s Mitral E to LV E' Septal Ratio 9.7 TR Peak Velocity 252.0 cm/s TR Peak Gradient 25.4 mmHg FINDINGS LEFT VENTRICLE The left ventricular systolic function is normal with an estimated ejection fraction in the range of 60-65%. Normal left ventricular size. RIGHT VENTRICLE Normal right ventricular size and systolic function. LEFT ATRIUM The left atrial size is normal. RIGHT ATRIUM The right atrial size is normal. ATRIAL SEPTUM Normal atrial septal thickness without atrial level shunting by limited color doppler interrogation. AORTA The aortic root and proximal ascending aorta are normal in size on limited imaging. MITRAL VALVE Structurally normal mitral valve. No mitral valve stenosis or regurgitation. AORTIC VALVE The aortic valve is not well visualized. TRICUSPID VALVE Structurally normal tricuspid valve. There is trace tricuspid valve regurgitation. PULMONARY VALVE The pulmonary valve is not well visualized. VESSELS The inferior vena cava is normal in size. PERICARDIUM No pericardial effusion. Anupam Gamble MD, FACC (Electronically Signed) Final Date:25 October 2016 16:14
--- NOTE | 2016-10-25 16:46 | PD.PROCEDR ---
Central Line Procedure REASON FOR PROCEDURE Central venous access PROCEDURE PERFORMED Central line placement: Right IJ CVL CONSENT Informed consent for procedure was obtained . The risks and benefits of the procedure were discussed to include but limited to bleeding, clot formation, infection, and even . ANESTHESIA Local injection of 1% Lidocaine DESCRIPTION OF THE PROCEDURE The patient was placed in supine, mild Trendelenburg position. The area was exposed and cleansed with ChloraPrep, times two. Large sterile drape was used to cover the patient, with the site exposed, under sterile conditions including cap, face mask, sterile gown, and sterile gloves. On single attempt, the introducer needle was inserted with negative pressure in syringe and venous flash was obtained. The guide wire was then advanced without any restriction and the needle was removed. The dilator was used without any complications. Using Seldinger technique the triple-lumen catheter was advanced over the guide wire to a depth of 16 centimeters. The guide wire was removed. All ports were aspirated with dark venous blood return and flushed easily with sterile saline. All ports were capped. Antibiotic disc was placed around central line at puncture site. The central line was secured to the skin with two interrupted 2.0 silk sutures. The area was bandaged with sterile see-through central line bandage. RADIOLOGICAL DATA Ultrasound guidance was used to locate the right internal jugular vein. Doppler /color flow was used to confirm venous flow. COMPLICATIONS: No apparent complications ESTIMATED BLOOD LOSS: Less than 1 cc. Ubaldo Story MD Oct 25, 2016 16:46
--- NOTE | 2016-10-25 17:23 | RADRPT ---
EXAM DATE/TIME: 10/25/2016 16:49 This report includes an Addendum and supersedes previous reports for this exam. [facility] COMPARISON: CHEST SINGLE AP, October 25, 2016, 13:42. INDICATIONS : Evaluate central line placement MEDICAL HISTORY : Chronic obstructive pulmonary disease. Hypertension SURGICAL HISTORY : None. ENCOUNTER: Subsequent ACUITY: 3 days PAIN SCORE: Non-responsive. LOCATION: chest FINDINGS: A single AP supine portable view of the chest was obtained and demonstrates an endotracheal tube in p lace with the tip approximately 3 cm above the filiberto. There has been interval placement of a right i nternal jugular central venous line with the tip projected over the superior vena cava. There is no v isualized pneumothorax. A Dobbhoff type feeding tube is now noted with the tip projected over the lef t mainstem bronchus. The heart size remains enlarged. Hazy opacities present in the infrahilar region s and both lung bases right greater than left. Both costophrenic angles are blunted. CONCLUSION: 1. Dobbhoff type feeding tube with the tip in the left mainstem bronchus. 2. Right internal jugular central venous line with no visualized pneumothorax. 3. Cardiomegaly remains with abnormal opacity in the lung bases and bilateral effusions. Jhonathan Dietz MD on October 25, 2016 at 17:19 Board Certified Radiologist. This report was verified electronically. ADDENDUM: The nasogastric tube remains in place with the tip projected over the proximal stomach. Jhonathan Dietz MD on October 25, 2016 at 17:25 Board Certified Radiologist. This report was verified electronically.
--- NOTE | 2016-10-25 17:25 | RADRPT ---
EXAM DATE/TIME: 10/25/2016 16:58 [facility] COMPARISON: CHEST SINGLE AP, October 25, 2016, 16:49. INDICATIONS : Evaluate dobhuff placement MEDICAL HISTORY : Chronic obstructive pulmonary disease. Hypertension SURGICAL HISTORY : None. ENCOUNTER: Initial ACUITY: 3 days PAIN SCORE: Non-responsive. LOCATION: Left Abdomen FINDINGS: A limited single AP supine view of the central and left upper abdomen was obtained. The right side of the abdomen and pelvis was cut off the study. This again demonstrates a nasogastric tube in place wi th the tip projected over the proximal stomach. A Dobbhoff catheter is present with the tip projected over the left mainstem bronchus. The bowel gas pattern appears unremarkable. The heart size is enlar ged. The left costophrenic angle is blunted. CONCLUSION: Dobbhoff feeding tube with the tip projected over the left mainstem bronchus. Jhonathan Dietz MD on October 25, 2016 at 17:22 Board Certified Radiologist. This report was verified electronically.
[2016-10-25] MEDS: POTASSIUM CHLOR 20 MEQ PREMIX 100 ML IV SCH ×2 (18:00→18:55)
[2016-10-25 18:07] LABS: BLOOD GAS BASE EXCESS 2.6 mmol/L (-2-2); BLOOD GAS CARBOXYHEMOGLOBIN 1.8 % (0-4); BLOOD GAS HCO3 29 mmol/L (22-26); BLOOD GAS METHEMOGLOBIN 1.3 % (0-2); BLOOD GAS O2 HGB SATURATION 87 % (90-100); BLOOD GAS OXYGEN CONTENT 17.4 Vol % (12.0-20.0); BLOOD GAS PCO2 67 mmHg (38-42); BLOOD GAS PO2 62 mmHg (61-120); BLOOD GAS TOTAL HGB 14.3 G/DL (12.0-16.0); CRITICAL VALUE YES; DRAW SITE ART LINE; FIO2 100 %; NUMBER OF ARTERIAL PUNCTURES 0; OXYGEN DEVICE VENTILATOR; STAT NO; TEMP CORR TO 98.6; ULNAR PULSE PRESENT; VENT SETTINGS AC/16/600/PEEP12
[2016-10-25] MEDS: EPOPROSTENOL NEB SOLUTION 50 NG/KG/MIN 100 ML NEB SCH ×2 (18:41)
[2016-10-25] MEDS: CISATRACURIUM INJ 100 MG in SODIUM CHLOR 0.9% 250 ML INJ 250 ML IV PRN (18:42)
[2016-10-25] MEDS: MIDAZOLAM 100 MG/100 ML INJ 100 ML IV PRN (19:07)
[2016-10-25] MEDS: RESP: BUDESONIDE 0.5 MG/2 ML NEB NEB SCH (19:39)
[2016-10-25 20:06] LABS: BLOOD GAS CARBOXYHEMOGLOBIN 1.6 % (0-4); BLOOD GAS HCO3 26 mmol/L (22-26); BLOOD GAS METHEMOGLOBIN 1.1 % (0-2); BLOOD GAS O2 HGB SATURATION 89 % (90-100); BLOOD GAS OXYGEN CONTENT 16.9 Vol % (12.0-20.0); BLOOD GAS PCO2 43 mmHg (38-42); BLOOD GAS PO2 57 mmHg (61-120); BLOOD GAS TOTAL HGB 13.5 G/DL (12.0-16.0); TEMP CORR TO 98.6
[2016-10-25 20:09] LABS: CRITICAL VALUE YES; FIO2 100 %; OXYGEN DEVICE VENTILATOR; VENT SETTINGS AC 20/600/+12/
[2016-10-25 20:10] LABS: DRAW SITE ART LINE; STAT NO; ULNAR PULSE PRESENT
[2016-10-25] MEDS: LISINOPRIL 20 MG TAB PO SCH (21:00)
[2016-10-25] MEDS: amLODIPine BESYLATE 5 MG TAB PO SCH (21:08)
[2016-10-25] MEDS: CHLORHEXIDINE 0.12% (ORAL KIT) 15 ML CUP MT SCH (21:09)
--- NOTE | 2016-10-25 23:28 | MB ---
cc: Stephanie MANUEL M.D. DATE OF CONSULTATION 10/25/16 HISTORY OF PRESENT ILLNESS Mr. Andrews is a 55-year-old white male who presented with shortness of breath and exhaustion, thought he had had heat stroke. 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 He has been ill with fatigue and fever, chills for about 2 days. He is a chronic smoker of at least a pack per day, has smoked his entire adult life and had some cough with congestion but no hemoptysis. No clear-cut purulent sputum. On presentation to the ER he was noticeably dyspneic. He had a chest x-ray and then a CT angiogram which reveals no evidence of thromboembolism but a large infiltrate with consolidation in the medial right lung probably with associated hilar and perimediastinal adenopathy. He was admitted to the Intensive Care Unit due to probable sepsis, pneumonia and acute exacerbation of COPD. Today, at the time of this interview he is on BiPap, comfortable, awake and alert, responding appropriately. PAST MEDICAL HISTORY He has a past history of hypertension, a distant history of kidney stones and apparently sleep apnea. History is taken primarily from the record as the patient is on BiPap and although he is alert it is difficult to communicate. No significant prior surgeries. SOCIAL HISTORY As noted above. No alcohol use or substance abuse. ALLERGIES None known. MEDICATIONS Current medications reviewed in the EMR. SOCIAL HISTORY He lives with his son. He is . No other children. No unusual animal exposures. PHYSICAL EXAMINATION GENERAL: Obese white male on BiPAP, actually comfortable at rest. VITAL SIGNS: Pulse is 100, temperature is 98, blood pressure 146/84, saturation currently 95%. HEENT: Sclerae pale, anicteric. NECK: No adenopathy in the neck. CHEST: Diffuse wheezing with scattered congestion. HEART: No audible murmur. ABDOMEN: Abdomen is obese but soft and nontender. EXTREMITIES: No pitting edema in the legs. No cyanosis. IMAGING STUDIES CT is noted above. LABORATORY DATA White count is 18,000, hemoglobin is 15, platelets normal, left shift. PT/APTT okay. BUN and creatinine are normal. BNP is normal. Arterial blood gas earlier today on 4 liters his pO2 was 70 with a pH 7.37, pCO2 of 756. He presented with a pCO2 of 79. MRSA screen negative. DISCUSSION Mr. Andrews presents with pneumonia, possibly underlying mass, it is not clear at this point but a heavy prior smoking history and COPD with diffuse wheezing. Blood cultures are pending. He has been started on broad-spectrum antibiotics, aerosolized bronchodilators and corticosteroids, the dose of which I will increase because of the severity of the wheezing. He is currently stable on BiPap. I spoke to the critical care physician who is following him as well. He will be monitored in intensive care until more stable. Further diagnostic and/or therapeutic intervention will depend on his ongoing clinical course and response to therapy. R. Ward Manuel MD RSW/EO /5:56 PM /11:12 PM
[2016-10-26] VITALS (26 sets, daily range): BP systolic 84–156; BP diastolic 47–95; PULSE 74–91; RESP 20; TEMP 97.8–98.7; O2SAT 95–100
[2016-10-26] MEDS: PROPOFOL 1000 MG/100 ML INJ 100 ML IV PRN ×4 (00:10→06:45)
[2016-10-26] MEDS: EPOPROSTENOL NEB SOLUTION 50 NG/KG/MIN 100 ML NEB SCH ×6 (02:50→17:26)
[2016-10-26] MEDS: CISATRACURIUM INJ 100 MG in SODIUM CHLOR 0.9% 250 ML INJ 250 ML IV PRN (02:50)
--- NOTE | 2016-10-26 03:17 | RADRPT ---
EXAM DATE/TIME: 10/26/2016 02:37 [facility] COMPARISON: CHEST SINGLE AP, October 25, 2016, 16:49. INDICATIONS : Respiratory failure- Roto bed MEDICAL HISTORY : Chronic obstructive pulmonary disease. Hypertension SURGICAL HISTORY : None. ENCOUNTER: Subsequent ACUITY: 3 days PAIN SCORE: Non-responsive. LOCATION: Bilateral chest FINDINGS: Portable AP view the chest demonstrates cardiac silhouette size at the upper limits for normal. Nasog astric tube distal tip is near the GE junction with sentinel hole in the distal esophagus. The endotr acheal tube appears to extend into the proximal right main bronchus. No effusion, consolidation, or p neumothorax is identified. Bones and soft tissues demonstrate no acute finding. CONCLUSION: 1. The endotracheal tube extends into the right main bronchus. Suggest retraction in the 3-4 cm range . 2. Nasogastric tube distal tip is near the GE junction, suggest advancement. 3. No acute pulmonary abnormality is identified. These findings were telephoned to the patient's nurse, Patricia, via telephone at 3:14 AM on 10/26/2016. Jayson Levin MD on October 26, 2016 at 3:06 Board Certified Radiologist. This report was verified electronically.
[2016-10-26] MEDS: CHLORHEXIDINE GLUCONATE 2 % 1 PACK (2 CLOTHS) TOP SCH (04:00)
[2016-10-26] MEDS: RESP: SODIUM CHLORIDE 3% 4 ML NEB NEB SCH ×5 (04:13→20:44)
[2016-10-26] MEDS: RESP: ALBUTEROL 2.5 MG/IPRATROPIUM 0.5 MG NEB (SCH) INH ×5 (04:13→20:43)
--- NOTE | 2016-10-26 04:16 | RADRPT ---
EXAM DATE/TIME: 10/26/2016 03:38 [facility] COMPARISON: CHEST SINGLE AP, October 26, 2016, 2:37. INDICATIONS : Reposition of ET tube MEDICAL HISTORY : Chronic obstructive pulmonary disease. Hypertension SURGICAL HISTORY : None. ENCOUNTER: Subsequent ACUITY: 2 days PAIN SCORE: Non-responsive. LOCATION: Bilateral chest FINDINGS: Portable AP view of the chest demonstrates cardiac silhouette size is mildly enlarged. Endotracheal t ube tip measures approximately 2 cm from the filiberto. Nasogastric tube distal tip is near the GE junct ion. Lungs demonstrate no effusion, consolidation, or pneumothorax. Right IJ line tip is in the super ior aspect of the SVC. CONCLUSION: Endotracheal tube tip now measures approximately 2 cm from the filiberto. No acute finding is identified . Jayson Levin MD on October 26, 2016 at 4:13 Board Certified Radiologist. This report was verified electronically.
[2016-10-26 04:36] LABS: AUTOMATED NEUTROPHIL # 13.3 TH/MM3 (1.8-7.7); BASOPHIL # 0.1 TH/MM3 (0-0.2); BASOPHIL % 0.4 % (0.0-2.0); HEMATOCRIT 41.2 % (39.0-51.0); HEMO FLAGS DIFF FINAL; LYMPH % 3.4 % (9.0-44.0); LYMPHOCYTE # 0.5 TH/MM3 (1.0-4.8); MEAN CELL VOLUME 94.4 FL (80.0-100.0); MEAN CORPUSCULAR HEMOGLOBIN 31.3 PG (27.0-34.0); MEAN CORPUSCULAR HGB CONC 33.2 % (32.0-36.0); MONO % 6.2 % (0.0-8.0); PLATELET COUNT 229 TH/MM3 (150-450); RED BLOOD COUNT 4.36 MIL/MM3 (4.50-5.90); RED CELL DISTRIBUTION WIDTH 13.7 % (11.6-17.2); WHITE BLOOD COUNT 14.8 TH/MM3 (4.0-11.0)
[2016-10-26 04:52] LABS: APTT (PATIENT) 29.6 SEC (24.3-30.1)
[2016-10-26 05:06] LABS: BLOOD GAS BASE EXCESS 2.6 mmol/L (-2-2); BLOOD GAS CARBOXYHEMOGLOBIN 1.2 % (0-4); BLOOD GAS HCO3 27 mmol/L (22-26); BLOOD GAS METHEMOGLOBIN 1.2 % (0-2); BLOOD GAS O2 HGB SATURATION 96 % (90-100); BLOOD GAS OXYGEN CONTENT 18.5 Vol % (12.0-20.0); BLOOD GAS PCO2 45 mmHg (38-42); BLOOD GAS PO2 102 mmHg (61-120); BLOOD GAS TOTAL HGB 13.7 G/DL (12.0-16.0); CRITICAL VALUE NO; OXYGEN DEVICE VENTILATOR; TEMP CORR TO 98.6; VENT SETTINGS AC 20/600/+12
[2016-10-26] MEDS: PIPERACIL-TAZO 4.5 GM PREMIX 100 ML IV SCH ×4 (05:06→22:07)
[2016-10-26] MEDS: ENOXAPARIN SODIUM 40 MG/0.4 ML SYRINGE SQ SCH ×2 (05:06→20:52)
[2016-10-26 05:07] LABS: DRAW SITE ART LINE; FIO2 70 %; STAT NO; ULNAR PULSE PRESENT
[2016-10-26] MEDS: methylPREDNISolone SOD SUCC 125 MG/2 ML VIAL IV SCH ×4 (05:07→21:21)
[2016-10-26] MEDS: AZITHROMYCIN INJ 500 MG in SODIUM CHLOR 0.9% 250 ML INJ 250 ML IV SCH (05:07)
[2016-10-26 05:22] LABS: BICARBONATE 29.1 MEQ/L (21.0-32.0); CALCIUM-PROTEIN CORRECTED 7.9 MG/DL (8.5-10.1); MAGNESIUM 2.6 MG/DL (1.5-2.5); POTASSIUM 3.9 MEQ/L (3.5-5.1); TOTAL BILIRUBIN ADULT 0.4 MG/DL (0.2-1.0)
[2016-10-26] MEDS: INSULIN NovoLIN REGULAR SUPPLEMENTAL SCALE SQ SCH ×4 (06:00→17:19)
[2016-10-26] MEDS: RESP: BUDESONIDE 0.5 MG/2 ML NEB NEB SCH ×2 (08:18→20:43)
--- NOTE | 2016-10-26 08:19 | HHI.CCPN ---
Subjective Remarks/Hospital Course 55-year-old very pleasant gentleman with past medical history of COPD, and hypertension presents complaining of shortness of breath and nausea, generalized fatigue and chills for 2 days. He thinks it has been from being out in the heat. Denies any fever, chest pain, vomiting, abdominal pain, focal weakness or numbness. In the emergency department his saturation was in mid 80s on arrival with auditory wheezing and tachypnea. He was placed on 4 liters of NC and saturating in the low 90. He does not use oxygen at home. He also mentioned 2 days ago, he came home and was sitting in a chair and was taking his shoes off when he passed out. States he woke up and was still on the chair. This has never happen before. 10/25: Patient intubated secondary to increasing oxygen requirements, altered mental status. Discussed with son. Somewhat hypertensive post intubation. Subjective 10/26: Placed on rotaprone bed last evening. Flolan initiated. Saturations improved. Afebrile. Remains on Nimbex drip. Objective Vital Signs Date Time Temp Pulse Resp B/P (MAP) Pulse Ox O2 Delivery O2 Flow Rate FiO2 10/26/16 06:00 80 20 90/53 (65) 97 137/85 (102) 10/26/16 04:19 70 10/26/16 04:00 97.9 10/25/16 11:07 Simple Mask 9.00 Intake and Output 10/26/16 10/26/16 10/27/16 08:00 16:00 00:00 Intake Total 550 ml Output Total 650 ml Balance -100 ml Result Diagram: 10/26/16 0416 10/26/16 0416 Other Results Microbiology Date/Time Source Procedure Growth Status 10/25/16 03:50 Blood Peripheral Aerobic Blood Culture Pending Received 10/25/16 03:50 Blood Peripheral Anaerobic Blood Culture Pending Received 10/25/16 15:28 Sputum Expectorated Sputum Gram Stain Pending Received 10/25/16 15:28 Sputum Expectorated Sputum Sputum Culture Pending Received 10/25/16 17:00 Urine Catheterized Urine Legionella Antigen - Final PRESUMPTIVE NEGATIVE FOR LEGIONELLA P... Complete 10/25/16 17:00 Urine Catheterized Urine Streptococcus pneumoniae Antigen (M - Final PRESUMPTIVE NEGATIVE FOR STREPTOCOCCU... Complete Imaging Last Impressions Chest X-Ray 10/26/16 Signed Impressions: Service Date/Time: Wednesday, October 26, 2016 03:38 - CONCLUSION: Endotracheal tube tip now measures approximately 2 cm from the filiberto. No acute finding is identified. Jayson Levin MD Head CT 10/25/16 Signed Impressions: Service Date/Time: September 06:08 - CONCLUSION: 1. No acute intracranial abnormalities. Cristofer De Santiago MD Carotid Artery Ultrasound 10/25/16 Signed Impressions: Service Date/Time: September 08:27 - CONCLUSION: Mild to moderate plaque in both carotid systems with less than 40%% diameter stenosis by velocity criteria. Jhonathan Dietz MD CT Angiography 10/25/16 Signed Impressions: Service Date/Time: September 06:12 - CONCLUSION: 1. Negative for pulmonary embolism. 2. There is a fairly large area of masslike consolidation in the medial right lung involving posterior segment right upper lobe and medial aspect of right lower lobe. There is associated right hilar and mediastinal adenopathy measuring up to 2.1 cm. Differential diagnosis includes pneumonia or underlying lung neoplasm. Close followup imaging recommended after treatment for pneumonia, to assess for underlying mass. Cristofer De Santiago MD Abdomen X-Ray 10/25/16 Signed Impressions: Service Date/Time: September 16:58 - CONCLUSION: Dobbhoff feeding tube with the tip projected over the left mainstem bronchus. Jhonathan Dietz MD Objective Remarks GENERAL: 55-year-old male, currently orotracheally intubated in Rotaprone bed SKIN: Warm and dry. No rash HEAD: Normocephalic. EYES: No scleral icterus. No injection or drainage. NECK: Supple, trachea midline. obese CARDIOVASCULAR: RRR. S1, S2 no S4 without murmur. Distant RESPIRATORY: Distant breath sounds. No wheezing appreciated GASTROINTESTINAL: Abdomen soft, obese/protuberant. Hypoactive bowel sounds are appreciated MUSCULOSKELETAL: Nonpitting bilateral lower extremity edema. BACK: Nontender without obvious deformity. NEURO EXAM: Currently on paralytic drip. Urinary Catheter: Yes Assessment to: Continue Santiago insert reason: Prolonged Immobilization Vascular Central Line Catheter: Yes Assessment to: Continue Date of Insertion: Oct 25, 2016 Line: Central Venous Catheter Side: Right Location: Internal, Jugular A/P Assessment and Plan Neuro/Psych: Syncope Patient is currently on propofol drip at 45 mcg/kg per minute/fentanyl grams an hour and midazolam 5 mg an hour for sedation/analgesia while intubated On Cisatracurium drip 1 mcg/kg per minute to maintain [id number] 2 out of 4 Goal of RA SS -24-[address] on admission revealed no acute intracranial findings Carotid ultrasound less than 50% stenosis bilaterally CV: Hypertension - Currently on normal saline at 100 cc an hour Home medications include amlodipine 5 mg daily and Lisinopril 20 mg daily Not requiring when necessary antihypertensives of and/or vasopressors at the present time Resp: Acute hypoxemic Respiratory failure - ARDS - COPD exacerbation - Possible pneumonia - community-acquired - Obesity hypoventilation syndrome - Tobacco use disorder CT pulmonary revealed no pulmonary nose. Masslike consolidation in the posterior right upper lobe and medial right lower lobe. Small pleural effusion. Lymphadenopathy to 1 cm right hilum and subcarinal. Atelectasis left lower lobe. ACV 20/600/12/70 Ventilator bundle Wean FiO2 maintain saturations greater than equal to 90% Albuterol/ipratropium every 4 hours with albuterol every 2 hours when necessary dyspnea Budesonide 0.5 mg aerosols twice a day Solu-Medrol 60 milligrams IV every6 hours Currently on Epoprostenol at 50 ng/kg/m and continue today Pulmonary/Dr. olivera following GI: Patient is currently nothing by mouth - LIWS Once NG tube identified, start tube feedings of Jevity 1.5 trickle feeds 20 cc nor goal Famotidine 20 no grams IV twice a day for GI prophylaxis Docusate sodium/senna 1 tablet twice a day for bowel regimen : Maintain Santiago catheter while paralyzed Endo: Hyperglycemia Sliding-scale insulin with novulin R median protocol with Accu-Cheks every 6 hours to maintain euglycemia Renal: Monitor urine output Accurate I's and O's Heme: Leukocytosis Monitor CBC daily. Follow trends ID: Pneumonia - community-acquired Zosyn/Zithromax day #2 Blood cultures 2, sputum pending. Urine Legionella and pneumococcal antigens negative and influenza pending FEN: Hypocalcemia hypophosphatemia Hyper-magnesium 1 g calcium gluconate, 15 mmol potassium phosphate. Recheck lites lites in a.m. Replacing electrolyte as clinically indicated MSK: PT evaluate and treat Access -Right IJ CVL placed 10/25. Right radial arterial line placed 10/25. Central line if indicated Prophylaxis - GI -famotidine - DVT - SCD/enoxaparin Critical Care: The total critical care time was 35 minutes. Time to perform other separately billable procedures was not included in the critical care time. Ubaldo Story MD Oct 26, 2016 08:19
[2016-10-26] MEDS: CISATRACURIUM 100 MG/NS 250 ML IV PRN ×6 (08:27→21:22)
[2016-10-26] MEDS: PROPOFOL 1000 MG/100 ML IV PRN ×7 (08:29→22:06)
[2016-10-26] MEDS ORDERED: POTASSIUM PHOSPHATE INJ 15 MMOL in SODIUM CHLORIDE 0.9% INJ 150 ML IV ONE (08:45)
[2016-10-26] MEDS: CHLORHEXIDINE 0.12% (ORAL KIT) 15 ML CUP MT SCH ×2 (08:46→19:14)
[2016-10-26] MEDS: SODIUM CHLORIDE 0.9% FLUSH 10 ML FLUSH SCH ×2 (08:48→20:53)
[2016-10-26] MEDS: SODIUM CHLORIDE 0.9% FLUSH 10 ML FLUSH IVF SCH (08:49)
[2016-10-26] MEDS: BENEPROTEIN POWDER 1 PACK G-TUBE SCH ×3 (08:49→17:20)
[2016-10-26] MEDS: DOCUSATE SODIUM 50 MG/SENNA 8.6 MG TAB PO SCH ×2 (08:49→20:54)
[2016-10-26] MEDS: FAMOTIDINE 20 MG/2 ML VIAL IV PUSH SCH ×2 (08:49→20:52)
[2016-10-26] MEDS: SODIUM CHLOR 0.9% 1000 ML INJ 1,000 ML IV SCH ×2 (08:50→19:13)
[2016-10-26] MEDS: fentaNYL DRIP 250 ML IV PRN ×3 (08:51→18:24)
[2016-10-26] MEDS: MIDAZOLAM 100 MG/100 ML INJ 100 ML IV PRN ×2 (08:51→08:54)
[2016-10-26] MEDS ORDERED: CALCIUM GLUCONATE INJ 1 GM in DEXTROSE 5% IN WATER 100ML INJ 100 ML IV ONE ×2 (09:00)
[2016-10-26] MEDS: ARTIFICIAL TEARS OPTH OINT 3.5 APPLIC/3.5 GM TUBO EACH EYE SCH ×2 (12:16→20:54)
--- NOTE | 2016-10-26 12:18 | EKG ---
Date Performed: 10/25/2016 Time Performed: 11:31:26 PTAGE: 55 years EKG: SINUS TACHYCARDIA Possible left atrial enlargement Nonspecific T-wave abnormality PREVIOUS TRACING : 10/25/2016 03.49 Quadrigeminy is no longer present from the previous t racing. DOCTOR: Brennon Smith Interpretating Date/Time 10/26/2016 12:17:25
--- NOTE | 2016-10-26 12:20 | EKG ---
Date Performed: 10/25/2016 Time Performed: 03:49:25 PTAGE: 55 years EKG: Sinus tachycardia Ventricular quadrigeminy Nondiagnostic T-wave in inferior leads ABNORMAL RHYTHM ECG PREVIOUS TRACING : 06/01/1994 10.44 Quadrigeminy is new from the prior tracing. DOCTOR: Brennon Smith Interpretating Date/Time 10/26/2016 12:18:12
[2016-10-26 13:44] LABS: FREE T3 1.23 PG/ML (2.18-3.98); FREE T4 0.95 NG/DL (0.76-1.46)
[2016-10-26] MEDS: amLODIPine BESYLATE 5 MG TAB PO SCH (20:53)
[2016-10-26] MEDS: LISINOPRIL 20 MG TAB PO SCH (20:53)
[2016-10-27] VITALS (27 sets, daily range): BP systolic 78–145; BP diastolic 41–112; PULSE 79–91; RESP 14–20; TEMP 98.1–100.2; O2SAT 92–99
[2016-10-27] MEDS: PROPOFOL 1000 MG/100 ML IV PRN ×13 (00:17→23:46)
[2016-10-27] MEDS: EPOPROSTENOL NEB SOLUTION 50 NG/KG/MIN 100 ML NEB SCH ×4 (00:17→08:20)
[2016-10-27] MEDS: INSULIN NovoLIN REGULAR SUPPLEMENTAL SCALE SQ SCH ×5 (00:18→23:50)
[2016-10-27] MEDS: RESP: SODIUM CHLORIDE 3% 4 ML NEB NEB SCH ×6 (00:32→20:01)
[2016-10-27] MEDS: RESP: ALBUTEROL 2.5 MG/IPRATROPIUM 0.5 MG NEB (SCH) INH ×6 (00:32→20:01)
--- NOTE | 2016-10-27 01:15 | EKG ---
Date Performed: 10/25/2016 Time Performed: 15:49:37 PTAGE: 55 years EKG: Sinus rhythm NORMAL ECG PREVIOUS TRACING : 10/25/2016 11.31 Compared to the previous tracing, rate has decreased DOCTOR: Jeancarlos Pope Interpretating Date/Time 10/27/2016 01:13:37
[2016-10-27] MEDS: MIDAZOLAM 100 MG/100 ML INJ 100 ML IV PRN ×2 (01:39→17:29)
[2016-10-27] MEDS: CHLORHEXIDINE GLUCONATE 2 % 1 PACK (2 CLOTHS) TOP SCH (04:00)
[2016-10-27] MEDS: methylPREDNISolone SOD SUCC 125 MG/2 ML VIAL IV SCH ×4 (04:31→22:03)
[2016-10-27] MEDS: fentaNYL DRIP 250 ML IV PRN ×3 (04:33→23:46)
[2016-10-27] MEDS: PIPERACIL-TAZO 4.5 GM PREMIX 100 ML IV SCH ×4 (04:34→22:59)
[2016-10-27] MEDS: SODIUM CHLOR 0.9% 1000 ML INJ 1,000 ML IV SCH ×2 (04:34→15:25)
--- NOTE | 2016-10-27 05:16 | RADRPT ---
EXAM DATE/TIME: 10/27/2016 03:42 [facility] COMPARISON: CHEST SINGLE AP, October 26, 2016, 3:38. INDICATIONS : ARDS/ Respiratory failure MEDICAL HISTORY : Chronic obstructive pulmonary disease. Hypertension SURGICAL HISTORY : None. ENCOUNTER: Subsequent ACUITY: 3 days PAIN SCORE: Non-responsive. LOCATION: Bilateral chest FINDINGS: Endotracheal tube tip is near filiberto. NG enters stomach. Mild basilar dependent airspace disease. No new consolidation. No pneumothorax or significant effusion. Right IJ central line near junction with right brachiocephalic vein. CONCLUSION: 1. Support apparatus unchanged. Mild basilar dependent airspace disease. Cristofer De Santiago MD on October 27, 2016 at 5:13 Board Certified Radiologist. This report was verified electronically.
[2016-10-27] MEDS: CISATRACURIUM 100 MG/NS 250 ML IV PRN ×4 (06:08→15:25)
[2016-10-27 06:09] LABS: BLOOD GAS BASE EXCESS 3.7 mmol/L (-2-2); BLOOD GAS HCO3 29 mmol/L (22-26); BLOOD GAS METHEMOGLOBIN 1.3 % (0-2); BLOOD GAS O2 HGB SATURATION 95 % (90-100); BLOOD GAS OXYGEN CONTENT 18.4 Vol % (12.0-20.0); BLOOD GAS PCO2 51 mmHg (38-42); BLOOD GAS PO2 88 mmHg (61-120); BLOOD GAS TOTAL HGB 13.8 G/DL (12.0-16.0); CRITICAL VALUE YES; OXYGEN DEVICE VENTILATOR; TEMP CORR TO 98.6
[2016-10-27] MEDS: AZITHROMYCIN INJ 500 MG in SODIUM CHLOR 0.9% 250 ML INJ 250 ML IV SCH (06:09)
[2016-10-27 06:10] LABS: DRAW SITE LT RADIAL; FIO2 55 %; NUMBER OF ARTERIAL PUNCTURES 1; STAT NO; ULNAR PULSE PRESENT; VENT SETTINGS AC20/600/+12
[2016-10-27 06:39] LABS: ANION GAP 4 MEQ/L (5-15); AST (GOT) 17 U/L (15-37); BICARBONATE 30.1 MEQ/L (21.0-32.0); BLOOD UREA NITROGEN 18 MG/DL (7-18); CHLORIDE 103 MEQ/L (98-107); GLOMERULAR FILTRATION RATE 121 ML/MIN (>89); MAGNESIUM 2.9 MG/DL (1.5-2.5); POTASSIUM 4.6 MEQ/L (3.5-5.1); SODIUM (NA) 137 MEQ/L (136-145)
[2016-10-27 06:40] LABS: ALT (GPT) 25 U/L (12-78)
[2016-10-27 06:42] LABS: ALKALINE PHOSPHATASE 51 U/L (45-117); TOTAL BILIRUBIN ADULT 0.3 MG/DL (0.2-1.0)
[2016-10-27 06:52] LABS: AUTOMATED NEUTROPHIL # 16.4 TH/MM3 (1.8-7.7); BASOPHIL % 0.1 % (0.0-2.0); LYMPH % 1.5 % (9.0-44.0); LYMPHOCYTE # 0.3 TH/MM3 (1.0-4.8); MEAN CELL VOLUME 94.8 FL (80.0-100.0); MEAN CORPUSCULAR HEMOGLOBIN 30.7 PG (27.0-34.0); MEAN CORPUSCULAR HGB CONC 32.4 % (32.0-36.0); NEUT % 91.4 % (16.0-70.0); PLATELET COUNT 245 TH/MM3 (150-450); RED BLOOD COUNT 4.33 MIL/MM3 (4.50-5.90); RED CELL DISTRIBUTION WIDTH 14.2 % (11.6-17.2)
[2016-10-27 07:07] LABS: HEMO FLAGS AUTO DIFF
[2016-10-27] MEDS: RESP: BUDESONIDE 0.5 MG/2 ML NEB NEB SCH ×2 (07:40→20:01)
[2016-10-27] MEDS: SODIUM CHLORIDE 0.9% FLUSH 10 ML FLUSH IVF SCH (08:20)
[2016-10-27] MEDS: ARTIFICIAL TEARS OPTH OINT 3.5 APPLIC/3.5 GM TUBO EACH EYE SCH (08:20)
[2016-10-27] MEDS: SODIUM CHLORIDE 0.9% FLUSH 10 ML FLUSH SCH ×2 (08:20→20:05)
[2016-10-27] MEDS: CHLORHEXIDINE 0.12% (ORAL KIT) 15 ML CUP MT SCH ×2 (08:20→20:07)
[2016-10-27] MEDS: BENEPROTEIN POWDER 1 PACK G-TUBE SCH ×3 (08:21→17:29)
[2016-10-27] MEDS: DOCUSATE SODIUM 50 MG/SENNA 8.6 MG TAB PO SCH (08:21)
[2016-10-27] MEDS: FAMOTIDINE 20 MG/2 ML VIAL IV PUSH SCH ×2 (08:21→20:03)
[2016-10-27] MEDS: ENOXAPARIN SODIUM 40 MG/0.4 ML SYRINGE SQ SCH ×2 (08:21→20:02)
[2016-10-27 08:54] LABS: BANDS 8 % (0-6); NEUTROPHIL # MANUAL DIFF 15.8 TH/MM3 (1.8-7.7); POLYS (SEG NEUTROPHILS) 80 % (16-70); WBC DIFF SAMPLE 100
[2016-10-27 08:55] LABS: PLATELET ESTIMATE SMEAR NORMAL (NORMAL); PLATELET MORPHOLOGY NORMAL (NORMAL); SCAN/DIFF FINAL DIFF MANUAL
--- NOTE | 2016-10-27 12:38 | HHI.CCPN ---
Subjective Remarks/Hospital Course 55-year-old very pleasant gentleman with past medical history of COPD, and hypertension presents complaining of shortness of breath and nausea, generalized fatigue and chills for 2 days. He thinks it has been from being out in the heat. Denies any fever, chest pain, vomiting, abdominal pain, focal weakness or numbness. In the emergency department his saturation was in mid 80s on arrival with auditory wheezing and tachypnea. He was placed on 4 liters of NC and saturating in the low 90. He does not use oxygen at home. He also mentioned 2 days ago, he came home and was sitting in a chair and was taking his shoes off when he passed out. States he woke up and was still on the chair. This has never happen before. 10/25: Patient intubated secondary to increasing oxygen requirements, altered mental status. Discussed with son. Somewhat hypertensive post intubation. 10/26: Placed on rotaprone bed last evening. Flolan initiated. Saturations improved. Afebrile. Remains on Nimbex drip. Subjective 10/27: T max 99.7. Tolerated on not prone position 2 hours yesterday. Tolerating trickle feeds. FiO2 down to 55% Objective Vital Signs Date Time Temp Pulse Resp B/P (MAP) Pulse Ox O2 Delivery O2 Flow Rate FiO2 10/27/16 12:00 90 10/27/16 12:00 55 10/27/16 12:00 99.7 20 95/50 (65) 93 135/88 (104) 10/25/16 11:07 Simple Mask 9.00 Intake and Output 10/27/16 10/27/16 10/28/16 08:00 16:00 00:00 Intake Total 1870 ml 489 ml Output Total 1000 ml Balance 870 ml 489 ml Result Diagram: 10/27/16 0600 10/27/16 0600 Other Results Microbiology Date/Time Source Procedure Growth Status 10/25/16 03:50 Blood Peripheral Aerobic Blood Culture - Preliminary NO GROWTH IN 2 DAYS Resulted 10/25/16 03:50 Blood Peripheral Anaerobic Blood Culture - Preliminary NO GROWTH IN 2 DAYS Resulted 10/25/16 15:28 Sputum Expectorated Sputum Gram Stain - Final Resulted 10/25/16 15:28 Sputum Expectorated Sputum Sputum Culture - Preliminary IMMATURE GROWTH - REINCUBATE Resulted 10/25/16 17:00 Urine Catheterized Urine Legionella Antigen - Final PRESUMPTIVE NEGATIVE FOR LEGIONELLA P... Complete 10/25/16 17:00 Urine Catheterized Urine Streptococcus pneumoniae Antigen (M - Final PRESUMPTIVE NEGATIVE FOR STREPTOCOCCU... Complete Imaging Last Impressions Chest X-Ray 10/27/16 0600 Signed Impressions: Service Date/Time: Thursday, October 27, 2016 03:42 - CONCLUSION: 1. Support apparatus unchanged. Mild basilar dependent airspace disease. Cristofer De Santiago MD Head CT 10/25/16 0000 Signed Impressions: Service Date/Time: September 06:08 - CONCLUSION: 1. No acute intracranial abnormalities. Cristofer De Santiago MD Carotid Artery Ultrasound 10/25/16 0000 Signed Impressions: Service Date/Time: September 08:27 - CONCLUSION: Mild to moderate plaque in both carotid systems with less than 40%% diameter stenosis by velocity criteria. Jhonathan Dietz MD CT Angiography 10/25/16 0000 Signed Impressions: Service Date/Time: September 06:12 - CONCLUSION: 1. Negative for pulmonary embolism. 2. There is a fairly large area of masslike consolidation in the medial right lung involving posterior segment right upper lobe and medial aspect of right lower lobe. There is associated right hilar and mediastinal adenopathy measuring up to 2.1 cm. Differential diagnosis includes pneumonia or underlying lung neoplasm. Close followup imaging recommended after treatment for pneumonia, to assess for underlying mass. Cristofer De Santiago MD Abdomen X-Ray 10/25/16 0000 Signed Impressions: Service Date/Time: September 16:58 - CONCLUSION: Dobbhoff feeding tube with the tip projected over the left mainstem bronchus. Jhonathan Dietz MD Objective Remarks GENERAL: 55-year-old male, currently orotracheally intubated in Rotaprone bed SKIN: Warm and dry. No rash HEAD: Normocephalic. EYES: No scleral icterus. No injection or drainage. NECK: Supple, trachea midline. obese CARDIOVASCULAR: RRR. S1, S2 no S4 without murmur. Distant RESPIRATORY: Distant breath sounds. No wheezing appreciated GASTROINTESTINAL: Abdomen soft, obese/protuberant. Hypoactive bowel sounds are appreciated MUSCULOSKELETAL: Nonpitting bilateral lower extremity edema. BACK: Nontender without obvious deformity. NEURO EXAM: Currently on paralytic drip. Urinary Catheter: Yes Assessment to: Continue Santiago insert reason: Prolonged Immobilization Vascular Central Line Catheter: Yes Assessment to: Continue Date of Insertion: Oct 25, 2016 Line: Central Venous Catheter Side: Right Location: Internal, Jugular A/P Assessment and Plan Neuro/Psych: Syncope Patient is currently on propofol drip at 45 mcg/kg per minute/fentanyl 250 g an hour and midazolam 5 mg an hour for sedation/analgesia while intubated On Cisatracurium drip 1.5 mcg/kg per minute to maintain [id number] 2 out of 4 Goal of SS -24-[address] on admission revealed no acute intracranial findings Carotid ultrasound less than 50% stenosis bilaterally CV: Hypertension - Currently on normal saline at 100 cc an hour . Discontinue today Home medications include amlodipine 5 mg daily and Lisinopril 20 mg daily Not requiring when necessary antihypertensives of and/or vasopressors at the present time Resp: Acute hypoxemic Respiratory failure - ARDS - COPD exacerbation - Possible pneumonia - community-acquired - Obesity hypoventilation syndrome - Tobacco use disorder CT pulmonary revealed no pulmonary nose. Masslike consolidation in the posterior right upper lobe and medial right lower lobe. Small pleural effusion. Lymphadenopathy to 1 cm right hilum and subcarinal. Atelectasis left lower lobe. ACV 20/600/12/55 Ventilator bundle Wean FiO2 maintain saturations greater than equal to 90% Albuterol/ipratropium every 4 hours with albuterol every 2 hours when necessary dyspnea Budesonide 0.5 mg aerosols twice a day Solu-Medrol 60 milligrams IV every6 hours Currently on Epoprostenol at 50 ng/kg/m and decreased to 40 ng/kg per minute aerosolized today Pulmonary/Dr. Wynne following GI: Patient is currently nothing by mouth - LIWS Once NG tube identified, start tube feedings of Jevity 1.5 trickle feeds 20 cc nor goal Famotidine 20 milligrams IV twice a day for GI prophylaxis Docusate sodium 100 mg twice a day, senna 8.6 mg twice a day, polyethylene glycol 3350 17 g twice a day and lactulose 30 cc 4 times a day for bowel regimen : Maintain Santiago catheter while paralyzed Endo: Hyperglycemia Sliding-scale insulin with novulin R median protocol with Accu-Cheks every 6 hours to maintain euglycemia Renal: Monitor urine output Accurate I's and O's Heme: Leukocytosis Monitor CBC daily. Follow trends ID: Pneumonia - community-acquired Zosyn/Zithromax day #3 Blood cultures 2, sputum no growth to date. Urine Legionella and pneumococcal antigens negative and influenza pending FEN: Hypocalcemia hypophosphatemia Hyper-magnesium 30 mmol potassium phosphate. Recheck electrolytes in a.m. Replacing electrolyte as clinically indicated MSK: PT evaluate and treat Access -Right IJ CVL placed 10/25. Right radial arterial line placed 10/25. Prophylaxis - GI -famotidine - DVT - SCD/enoxaparin Critical Care: The total critical care time was 35 minutes. Time to perform other separately billable procedures was not included in the critical care time. Ubaldo Story MD Oct 27, 2016 12:38
[2016-10-27] MEDS ORDERED: FUROSEMIDE 40 MG/4 ML VIAL IV PUSH ONE (13:00)
[2016-10-27] MEDS: LACTULOSE SYRUP 20 GM/30 ML CUP PO SCH ×3 (13:53→20:03)
[2016-10-27] MEDS ORDERED: SODIUM PHOSPHATE INJ 15 MMOL in SODIUM CHLORIDE 0.9% INJ 150 ML IV ONE (14:00)
[2016-10-27] MEDS: EPOPROSTENOL NEB SOLUTION 40 NG/KG/MIN 100 ML NEB SCH ×2 (15:25)
[2016-10-27] MEDS: DOCUSATE SODIUM 100 MG/10 ML UDC PO SCH (20:02)
[2016-10-27] MEDS: POLYETHYLENE GLYCOL 17 GM PKG NG SCH (20:02)
[2016-10-27] MEDS: LISINOPRIL 20 MG TAB PO SCH (20:03)
[2016-10-27] MEDS: amLODIPine BESYLATE 5 MG TAB PO SCH (20:03)
[2016-10-27] MEDS: SENNOSIDES SYRUP 8.8 MG/5 ML CUP PEG SCH (20:04)
[2016-10-28] VITALS (24 sets, daily range): BP systolic 92–179; BP diastolic 51–90; PULSE 81–95; RESP 11–22; TEMP 99.2–101; O2SAT 92–99
[2016-10-28] MEDS: RESP: SODIUM CHLORIDE 3% 4 ML NEB NEB SCH ×7 (00:01→23:57)
[2016-10-28] MEDS: RESP: ALBUTEROL 2.5 MG/IPRATROPIUM 0.5 MG NEB (SCH) INH ×7 (00:01→23:57)
[2016-10-28] MEDS: ARTIFICIAL TEARS OPTH OINT 3.5 APPLIC/3.5 GM TUBO EACH EYE SCH ×3 (00:50→20:03)
[2016-10-28] MEDS: CISATRACURIUM 100 MG/NS 250 ML IV PRN ×6 (00:50→16:51)
[2016-10-28] MEDS: EPOPROSTENOL NEB SOLUTION 40 NG/KG/MIN 100 ML NEB SCH ×6 (02:28→08:31)
[2016-10-28] MEDS: PROPOFOL 1000 MG/100 ML IV PRN ×8 (02:28→22:36)
[2016-10-28] MEDS: CHLORHEXIDINE GLUCONATE 2 % 1 PACK (2 CLOTHS) TOP SCH (04:00)
[2016-10-28] MEDS: PIPERACIL-TAZO 4.5 GM PREMIX 100 ML IV SCH ×4 (05:10→22:04)
[2016-10-28] MEDS: methylPREDNISolone SOD SUCC 125 MG/2 ML VIAL IV SCH ×3 (05:10→22:03)
[2016-10-28 05:19] LABS: AUTOMATED NEUTROPHIL # 13.8 TH/MM3 (1.8-7.7); BASOPHIL % 0.2 % (0.0-2.0); HEMATOCRIT 42.3 % (39.0-51.0); LYMPH % 2.8 % (9.0-44.0); LYMPHOCYTE # 0.5 TH/MM3 (1.0-4.8); MEAN CELL VOLUME 95.3 FL (80.0-100.0); MEAN CORPUSCULAR HEMOGLOBIN 30.7 PG (27.0-34.0); MEAN CORPUSCULAR HGB CONC 32.2 % (32.0-36.0); MONO % 11.2 % (0.0-8.0); NEUT % 85.8 % (16.0-70.0); PLATELET COUNT 294 TH/MM3 (150-450); RED BLOOD COUNT 4.44 MIL/MM3 (4.50-5.90); RED CELL DISTRIBUTION WIDTH 14.7 % (11.6-17.2); WHITE BLOOD COUNT 16.1 TH/MM3 (4.0-11.0)
[2016-10-28 05:24] LABS: HEMO FLAGS AUTO DIFF
--- NOTE | 2016-10-28 05:38 | RADRPT ---
EXAM DATE/TIME: 10/28/2016 04:10 [facility] COMPARISON: CHEST SINGLE AP, October 27, 2016, 3:42. INDICATIONS : ARDS MEDICAL HISTORY : Chronic obstructive pulmonary disease. Hypertension SURGICAL HISTORY : None. ENCOUNTER: Subsequent ACUITY: 4 - 6 days PAIN SCORE: Non-responsive. LOCATION: Bilateral chest FINDINGS: A single view of the chest demonstrates endotracheal tube tip about 1 cm above the filiberto. NG enters stomach. Minimal basilar opacity probably atelectasis. No significant effusion. No pneumothorax. CONCLUSION: 1. Cardiomegaly with minimal basilar atelectasis. Support apparatus in satisfactory position. Cristofer De Santiago MD on October 28, 2016 at 5:34 Board Certified Radiologist. This report was verified electronically.
[2016-10-28 05:52] LABS: ALKALINE PHOSPHATASE 48 U/L (45-117); ALT (GPT) 31 U/L (12-78); ANION GAP 2 MEQ/L (5-15); AST (GOT) 54 U/L (15-37); BICARBONATE 32.9 MEQ/L (21.0-32.0); BLOOD UREA NITROGEN 25 MG/DL (7-18); CHLORIDE 104 MEQ/L (98-107); GLOMERULAR FILTRATION RATE 112 ML/MIN (>89); SODIUM (NA) 139 MEQ/L (136-145); TOTAL BILIRUBIN ADULT 0.4 MG/DL (0.2-1.0)
[2016-10-28 05:53] LABS: POTASSIUM 6.3 MEQ/L (3.5-5.1)
[2016-10-28] MEDS: INSULIN NovoLIN REGULAR SUPPLEMENTAL SCALE SQ SCH ×5 (06:00→23:51)
[2016-10-28] MEDS: AZITHROMYCIN INJ 500 MG in SODIUM CHLOR 0.9% 250 ML INJ 250 ML IV SCH (06:16)
[2016-10-28] MEDS ORDERED: CALCIUM GLUCONATE 10% 1 GM/10 ML VIAL SLOW IVP ONE (06:45)
[2016-10-28] MEDS ORDERED: SODIUM POLYSTYRENE SULFONATE SUSP 15 GM/60 ML CUP NG ONE (06:45)
[2016-10-28] MEDS ORDERED: RESP: ALBUTEROL 2.5 MG/3 ML NEB (SCH) NEB ONE (06:45)
[2016-10-28] MEDS ORDERED: DEXTROSE 50% IN WATER 50 ML VIAL(D50) IV PUSH ONE (06:45)
[2016-10-28] MEDS ORDERED: INSULIN HUMAN REGULAR 1,000 UNITS/10 ML VIAL IV PUSH ONE (06:45)
[2016-10-28] MEDS ORDERED: SODIUM BICARBONATE 8.4% SOLN 50 MEQ/50 ML VIAL SLOW IVP ONE (06:45)
[2016-10-28] MEDS: RESP: BUDESONIDE 0.5 MG/2 ML NEB NEB SCH ×2 (07:57→19:59)
[2016-10-28 08:11] LABS: BANDS 10 % (0-6); POLYS (SEG NEUTROPHILS) 77 % (16-70); WBC DIFF SAMPLE 100
[2016-10-28 08:12] LABS: PLATELET ESTIMATE SMEAR NORMAL (NORMAL); PLATELET MORPHOLOGY NORMAL (NORMAL); SCAN/DIFF FINAL DIFF MANUAL
[2016-10-28] MEDS: ACETAMINOPHEN 325 MG TAB PO PRN (08:31)
[2016-10-28] MEDS: SODIUM CHLORIDE 0.9% FLUSH 10 ML FLUSH IVF SCH (08:31)
[2016-10-28] MEDS: POLYETHYLENE GLYCOL 17 GM PKG NG SCH ×2 (08:31→20:03)
[2016-10-28] MEDS: CHLORHEXIDINE 0.12% (ORAL KIT) 15 ML CUP MT SCH ×2 (08:31→20:01)
[2016-10-28] MEDS: DOCUSATE SODIUM 100 MG/10 ML UDC PO SCH ×2 (08:31→20:03)
[2016-10-28] MEDS: SODIUM CHLORIDE 0.9% FLUSH 10 ML FLUSH SCH ×2 (08:31→20:02)
[2016-10-28] MEDS: LACTULOSE SYRUP 20 GM/30 ML CUP PO SCH ×4 (08:32→20:04)
[2016-10-28] MEDS: BENEPROTEIN POWDER 1 PACK G-TUBE SCH ×3 (08:32→18:00)
[2016-10-28] MEDS: SENNOSIDES SYRUP 8.8 MG/5 ML CUP PEG SCH ×2 (08:33→20:04)
[2016-10-28] MEDS: ENOXAPARIN SODIUM 40 MG/0.4 ML SYRINGE SQ SCH ×2 (08:33→20:04)
[2016-10-28] MEDS: FAMOTIDINE 20 MG/2 ML VIAL IV PUSH SCH ×2 (08:33→20:03)
[2016-10-28] MEDS: fentaNYL DRIP 250 ML IV PRN ×2 (08:34→18:06)
[2016-10-28] MEDS ORDERED: MINERAL OIL EMULSION 55% PO ONE (09:15)
--- NOTE | 2016-10-28 09:22 | HHI.CCPN ---
Subjective Remarks/Hospital Course 55-year-old very pleasant gentleman with past medical history of COPD, and hypertension presents complaining of shortness of breath and nausea, generalized fatigue and chills for 2 days. He thinks it has been from being out in the heat. Denies any fever, chest pain, vomiting, abdominal pain, focal weakness or numbness. In the emergency department his saturation was in mid 80s on arrival with auditory wheezing and tachypnea. He was placed on 4 liters of NC and saturating in the low 90. He does not use oxygen at home. He also mentioned 2 days ago, he came home and was sitting in a chair and was taking his shoes off when he passed out. States he woke up and was still on the chair. This has never happen before. 10/25: Patient intubated secondary to increasing oxygen requirements, altered mental status. Discussed with son. Somewhat hypertensive post intubation. 10/26: Placed on rotaprone bed last evening. Flolan initiated. Saturations improved. Afebrile. Remains on Nimbex drip. 10/27: T max 99.7. Tolerated on not prone position 2 hours yesterday. Tolerating trickle feeds. FiO2 down to 55% Subjective 10/28: Tmax 99.9. When unprone for chest x-ray this a.m. desaturated. Currently on 90% FiO2. Actually hypertensive. No bowel movements. Remains paralyzed Objective Vital Signs Date Time Temp Pulse Resp B/P (MAP) Pulse Ox O2 Delivery O2 Flow Rate FiO2 10/28/16 08:09 98 60 10/28/16 06:00 82 10/28/16 04:00 99.9 11 113/63 (80) 161/90 (113) 10/25/16 11:07 Simple Mask 9.00 Intake and Output 10/28/16 10/28/16 10/29/16 08:00 16:00 00:00 Intake Total 1056 ml Output Total 1450 ml Balance -394 ml Result Diagram: 10/28/16 0500 10/28/16 0500 Imaging Last Impressions Chest X-Ray 10/28/16 0600 Signed Impressions: Service Date/Time: Friday, October 28, 2016 04:10 - CONCLUSION: 1. Cardiomegaly with minimal basilar atelectasis. Support apparatus in satisfactory position. Cristofer De Santiago MD Head CT 10/25/16 Signed Impressions: Service Date/Time: September 06:08 - CONCLUSION: 1. No acute intracranial abnormalities. Cristofer De Santiago MD Carotid Artery Ultrasound 10/25/16 Signed Impressions: Service Date/Time: September 08:27 - CONCLUSION: Mild to moderate plaque in both carotid systems with less than 40%% diameter stenosis by velocity criteria. Jhonathan Dietz MD CT Angiography 10/25/16 Signed Impressions: Service Date/Time: September 06:12 - CONCLUSION: 1. Negative for pulmonary embolism. 2. There is a fairly large area of masslike consolidation in the medial right lung involving posterior segment right upper lobe and medial aspect of right lower lobe. There is associated right hilar and mediastinal adenopathy measuring up to 2.1 cm. Differential diagnosis includes pneumonia or underlying lung neoplasm. Close followup imaging recommended after treatment for pneumonia, to assess for underlying mass. Cristofer De Santiago MD Abdomen X-Ray 10/25/16 Signed Impressions: Service Date/Time: September 16:58 - CONCLUSION: Dobbhoff feeding tube with the tip projected over the left mainstem bronchus. Jhonathan Dietz MD Objective Remarks GENERAL: 55-year-old male, currently orotracheally intubated in Rotaprone bed SKIN: Warm and dry. No rash HEAD: Normocephalic. EYES: No scleral icterus. No injection or drainage. NECK: Supple, trachea midline. obese CARDIOVASCULAR: RRR. S1, S2 no S4 without murmur. Distant RESPIRATORY: Distant breath sounds. No wheezing appreciated GASTROINTESTINAL: Abdomen soft, obese/protuberant. Hypoactive bowel sounds are appreciated MUSCULOSKELETAL: Nonpitting bilateral lower extremity edema. BACK: Nontender without obvious deformity. NEURO EXAM: Currently on paralytic drip. Urinary Catheter: Yes Assessment to: Continue Santiago insert reason: Prolonged Immobilization Vascular Central Line Catheter: Yes Assessment to: Continue Date of Insertion: Oct 25, 2016 Line: Central Venous Catheter Side: Right Location: Internal, Jugular A/P Assessment and Plan Neuro/Psych: Syncope Patient is currently on propofol drip at 45 mcg/kg per minute/fentanyl 250 g an hour and midazolam 5 mg an hour for sedation/analgesia while intubated On Cisatracurium drip 1.5 mcg/kg per minute to maintain [id number] 2 out of 4 Goal of RA SS -24-[address] on admission revealed no acute intracranial findings Carotid ultrasound less than 50% stenosis bilaterally CV: Hypertension - Currently on normal saline at 100 cc an hour . Discontinue today Home medications include amlodipine 5 mg daily and lisinopril Started hydralazine 25 mg 3 times a day and Isordil 10 mg 3 times a day for hypertension Discontinued Lisinopril 20 mg daily acute hyperkalemia Resp: Acute hypoxemic Respiratory failure - ARDS - COPD exacerbation - Possible pneumonia - community-acquired - Obesity hypoventilation syndrome - Tobacco use disorder CT pulmonary revealed no pulmonary nose. Masslike consolidation in the posterior right upper lobe and medial right lower lobe. Small pleural effusion. Lymphadenopathy to 1 cm right hilum and subcarinal. Atelectasis left lower lobe. PRVC 20/550/1.03/10/89 Ventilator bundle Wean FiO2 maintain saturations greater than equal to 90% Albuterol/ipratropium every 4 hours with albuterol every 2 hours when necessary dyspnea Budesonide 0.5 mg aerosols twice a day Solu-Medrol 60 milligrams IV every 8 hours Currently on Epoprostenol at 50 ng/kg/m aerosolized today Pulmonary/Dr. Wynne following GI: Started on vital high protein 1.5 trickle feeds 40 cc nor goal. Goal is 65 cc an hour per nutrition's notes Famotidine 20 milligrams IV twice a day for GI prophylaxis Docusate sodium 100 mg twice a day, senna 8.6 mg twice a day, polyethylene glycol 3350 17 g twice a day and lactulose 30 cc 4 times a day for bowel regimen Relistor and mineral oil 1 today. Check KUB in a.m. : Maintain Santiago catheter while paralyzed Endo: Hyperglycemia Sliding-scale insulin with novulin R median protocol with Accu-Cheks every 6 hours to maintain euglycemia Renal: Monitor urine output Accurate I's and O's Heme: Leukocytosis Monitor CBC daily. Follow trends ID: Pneumonia - community-acquired Zosyn/Zithromax day #4 Blood cultures 2, sputum no growth to date. Urine Legionella and pneumococcal antigens negative and influenza pending FEN: Hyperkalemia Hyper-magnesium Calcium gluconate, insulin/D50/bicarbonate/Kayexalate and albuterol aerosols 1. Recheck potassium 3 hours Replacing electrolyte as clinically indicated MSK: PT evaluate and treat Access -Right IJ CVL placed 10/25. Right radial arterial line placed 10/25. Prophylaxis - GI -famotidine - DVT - SCD/enoxaparin Critical Care: The total critical care time was 35 minutes. Time to perform other separately billable procedures was not included in the critical care time. Ubaldo Story MD Oct 28, 2016 09:22
[2016-10-28 10:00] LABS: BLOOD GAS BASE EXCESS 5.8 mmol/L (-2-2); BLOOD GAS CARBOXYHEMOGLOBIN 0.9 % (0-4); BLOOD GAS HCO3 31 mmol/L (22-26); BLOOD GAS METHEMOGLOBIN 1.3 % (0-2); BLOOD GAS O2 HGB SATURATION 95 % (90-100); BLOOD GAS OXYGEN CONTENT 18.4 Vol % (12.0-20.0); BLOOD GAS PCO2 61 mmHg (38-42); BLOOD GAS PO2 105 mmHg (61-120); BLOOD GAS TOTAL HGB 13.7 G/DL (12.0-16.0); CRITICAL VALUE YES; OXYGEN DEVICE VENTILATOR; TEMP CORR TO 98.6
[2016-10-28] MEDS ORDERED: METHYLNALTREXONE BROMIDE 12 MG/0.6 ML VIAL SQ ONE (10:00)
[2016-10-28 10:01] LABS: DRAW SITE ART LINE; FIO2 90 %; STAT NO; VENT SETTINGS PRVC/AC 550/20
[2016-10-28] MEDS: EPOPROSTENOL NEB SOLUTION 50 NG/KG/MIN 100 ML NEB SCH ×6 (10:12→22:05)
[2016-10-28] MEDS: MIDAZOLAM 100 MG/100 ML INJ 100 ML IV PRN (10:49)
[2016-10-28] MEDS ORDERED: MINERAL OIL LIQUID 30 ML CUP PO ONE (11:00)
[2016-10-28] MEDS: hydrALAZINE HCL 25 MG TAB PO SCH ×2 (13:05→22:03)
[2016-10-28] MEDS: ISOSORBIDE DINITRATE 10 MG TAB PO SCH ×2 (13:05→22:04)
[2016-10-28] MEDS: amLODIPine BESYLATE 5 MG TAB PO SCH (20:04)
[2016-10-29] VITALS (25 sets, daily range): BP systolic 98–171; BP diastolic 56–120; PULSE 81–95; RESP 22; TEMP 98.7–100.8; O2SAT 90–99
[2016-10-29] MEDS: CISATRACURIUM 100 MG/NS 250 ML IV PRN ×6 (00:04→19:59)
[2016-10-29] MEDS: PROPOFOL 1000 MG/100 ML IV PRN ×9 (00:28→19:59)
[2016-10-29] MEDS: RESP: SODIUM CHLORIDE 3% 4 ML NEB NEB SCH ×5 (03:08→20:52)
[2016-10-29] MEDS: RESP: ALBUTEROL 2.5 MG/IPRATROPIUM 0.5 MG NEB (SCH) INH ×5 (03:08→20:52)
[2016-10-29] MEDS: CHLORHEXIDINE GLUCONATE 2 % 1 PACK (2 CLOTHS) TOP SCH (04:00)
[2016-10-29] MEDS: PIPERACIL-TAZO 4.5 GM PREMIX 100 ML IV SCH ×4 (05:12→21:56)
[2016-10-29] MEDS: fentaNYL DRIP 250 ML IV PRN ×3 (05:13→22:34)
[2016-10-29] MEDS: hydrALAZINE HCL 25 MG TAB PO SCH ×3 (05:14→21:57)
[2016-10-29] MEDS: ISOSORBIDE DINITRATE 10 MG TAB PO SCH ×3 (05:14→21:56)
[2016-10-29] MEDS: methylPREDNISolone SOD SUCC 125 MG/2 ML VIAL IV SCH ×3 (05:14→21:57)
[2016-10-29] MEDS: AZITHROMYCIN INJ 500 MG in SODIUM CHLOR 0.9% 250 ML INJ 250 ML IV SCH (05:14)
--- NOTE | 2016-10-29 05:42 | RADRPT ---
EXAM DATE/TIME: 10/29/2016 04:32 [facility] COMPARISON: CHEST SINGLE AP, October 28, 2016, 4:10. INDICATIONS : Shortness of breath, possible pulmonary disease. MEDICAL HISTORY : Chronic obstructive pulmonary disease. Hypertension SURGICAL HISTORY : None. ENCOUNTER: Subsequent ACUITY: 1 week PAIN SCORE: Non-responsive. LOCATION: Bilateral chest FINDINGS: Infiltrate is developing in the right upper lobe and both bases. No pleural effusion seen. No pneumot horax. Endotracheal tube tip is approximately 5 cm above the filiberto. Nasogastric tube courses into the stoma ch. Right IJ central venous catheter again noted, tip in the superior vena cava. CONCLUSION: Bibasilar and right upper lobe consolidation developing. Jayson Taylor MD on October 29, 2016 at 5:39 Board Certified Radiologist. This report was verified electronically.
--- NOTE | 2016-10-29 05:43 | RADRPT ---
EXAM DATE/TIME: 10/29/2016 04:41 [facility] COMPARISON: ABDOMEN KUB ONLY, October 25, 2016, 16:58. INDICATIONS : Abdominal pain. MEDICAL HISTORY : Chronic obstructive pulmonary disease. Hypertension SURGICAL HISTORY : None. ENCOUNTER: Subsequent ACUITY: 1 week PAIN SCORE: Non-responsive. LOCATION: Bilateral Abdomen FINDINGS: Supine view of the abdomen was performed. The abdominal bowel gas pattern is normal. No abnormal ma sses, calcifications, or organomegaly is seen. The osseous structures are unremarkable. CONCLUSION: Nonspecific, nonobstructive bowel gas pattern. No evidence of free air. Jayson Taylor MD on October 29, 2016 at 5:41 Board Certified Radiologist. This report was verified electronically.
[2016-10-29 06:18] LABS: AUTOMATED NEUTROPHIL # 13.8 TH/MM3 (1.8-7.7); HEMATOCRIT 40.1 % (39.0-51.0); LYMPH % 3.8 % (9.0-44.0); LYMPHOCYTE # 0.6 TH/MM3 (1.0-4.8); MEAN CELL VOLUME 95.5 FL (80.0-100.0); MEAN CORPUSCULAR HEMOGLOBIN 30.2 PG (27.0-34.0); MEAN CORPUSCULAR HGB CONC 31.6 % (32.0-36.0); MONO % 11.8 % (0.0-8.0); NEUT % 84.4 % (16.0-70.0); PLATELET COUNT 284 TH/MM3 (150-450); RED BLOOD COUNT 4.19 MIL/MM3 (4.50-5.90); RED CELL DISTRIBUTION WIDTH 14.3 % (11.6-17.2); WHITE BLOOD COUNT 16.3 TH/MM3 (4.0-11.0)
[2016-10-29 06:29] LABS: BLOOD GAS BASE EXCESS 5.4 mmol/L (-2-2); BLOOD GAS HCO3 31 mmol/L (22-26); BLOOD GAS METHEMOGLOBIN 1.4 % (0-2); BLOOD GAS O2 HGB SATURATION 91 % (90-100); BLOOD GAS OXYGEN CONTENT 16.5 Vol % (12.0-20.0); BLOOD GAS PCO2 61 mmHg (38-42); BLOOD GAS PO2 73 mmHg (61-120); BLOOD GAS TOTAL HGB 12.8 G/DL (12.0-16.0); TEMP CORR TO 98.6
[2016-10-29 06:30] LABS: CRITICAL VALUE YES; DRAW SITE ART LINE; FIO2 55 %; OXYGEN DEVICE VENTILATOR; STAT NO; VENT SETTINGS PRVC/AC
[2016-10-29 06:37] LABS: HEMO FLAGS AUTO DIFF
[2016-10-29 06:44] LABS: ANION GAP 5 MEQ/L (5-15); AST (GOT) 23 U/L (15-37); BICARBONATE 33.1 MEQ/L (21.0-32.0); BLOOD UREA NITROGEN 25 MG/DL (7-18); CHLORIDE 101 MEQ/L (98-107); GLOMERULAR FILTRATION RATE 121 ML/MIN (>89); MAGNESIUM 2.9 MG/DL (1.5-2.5); POTASSIUM 5.1 MEQ/L (3.5-5.1); SODIUM (NA) 139 MEQ/L (136-145)
[2016-10-29 06:47] LABS: ALKALINE PHOSPHATASE 42 U/L (45-117); ALT (GPT) 36 U/L (12-78); TOTAL BILIRUBIN ADULT 0.3 MG/DL (0.2-1.0)
[2016-10-29] MEDS: RESP: BUDESONIDE 0.5 MG/2 ML NEB NEB SCH ×2 (07:48→20:53)
[2016-10-29] MEDS: CHLORHEXIDINE 0.12% (ORAL KIT) 15 ML CUP MT SCH ×2 (08:18→20:47)
[2016-10-29] MEDS: ENOXAPARIN SODIUM 40 MG/0.4 ML SYRINGE SQ SCH ×2 (08:19→20:49)
[2016-10-29] MEDS: ARTIFICIAL TEARS OPTH OINT 3.5 APPLIC/3.5 GM TUBO EACH EYE SCH ×2 (08:19→20:49)
[2016-10-29] MEDS: SODIUM CHLORIDE 0.9% FLUSH 10 ML FLUSH SCH ×2 (08:19→20:49)
[2016-10-29] MEDS: POLYETHYLENE GLYCOL 17 GM PKG NG SCH ×2 (08:19→20:49)
[2016-10-29] MEDS: BENEPROTEIN POWDER 1 PACK G-TUBE SCH ×3 (08:19→17:54)
[2016-10-29] MEDS: DOCUSATE SODIUM 100 MG/10 ML UDC PO SCH ×2 (08:19→20:50)
[2016-10-29] MEDS: FAMOTIDINE 20 MG/2 ML VIAL IV PUSH SCH ×2 (08:19→20:48)
[2016-10-29] MEDS: LACTULOSE SYRUP 20 GM/30 ML CUP PO SCH ×4 (08:20→20:48)
[2016-10-29] MEDS: SODIUM CHLORIDE 0.9% FLUSH 10 ML FLUSH IVF SCH (08:20)
[2016-10-29] MEDS: SENNOSIDES SYRUP 8.8 MG/5 ML CUP PEG SCH ×2 (08:20→20:51)
[2016-10-29 09:05] LABS: BANDS 6 % (0-6); MYELOCYTES 3 % (0-0); NEUTROPHIL # MANUAL DIFF 14.2 TH/MM3 (1.8-7.7); POLYS (SEG NEUTROPHILS) 78 % (16-70); WBC DIFF SAMPLE 100
[2016-10-29 09:06] LABS: PLATELET ESTIMATE SMEAR NORMAL (NORMAL); PLATELET MORPHOLOGY NORMAL (NORMAL); SCAN/DIFF FINAL DIFF MANUAL
[2016-10-29] MEDS: EPOPROSTENOL NEB SOLUTION 50 NG/KG/MIN 100 ML NEB SCH ×4 (09:19→17:54)
[2016-10-29] MEDS: INSULIN NovoLIN REGULAR SUPPLEMENTAL SCALE SQ SCH ×2 (11:29→17:57)
--- NOTE | 2016-10-29 12:42 | HHI.CCPN ---
Subjective Remarks/Hospital Course 55-year-old very pleasant gentleman with past medical history of COPD, and hypertension presents complaining of shortness of breath and nausea, generalized fatigue and chills for 2 days. He thinks it has been from being out in the heat. Denies any fever, chest pain, vomiting, abdominal pain, focal weakness or numbness. In the emergency department his saturation was in mid 80s on arrival with auditory wheezing and tachypnea. He was placed on 4 liters of NC and saturating in the low 90. He does not use oxygen at home. He also mentioned 2 days ago, he came home and was sitting in a chair and was taking his shoes off when he passed out. States he woke up and was still on the chair. This has never happen before. 10/25: Patient intubated secondary to increasing oxygen requirements, altered mental status. Discussed with son. Somewhat hypertensive post intubation. 10/26: Placed on rotaprone bed last evening. Flolan initiated. Saturations improved. Afebrile. Remains on Nimbex drip. 10/27: T max 99.7. Tolerated on not prone position 2 hours yesterday. Tolerating trickle feeds. FiO2 down to 55% Subjective 10/28: Tmax 99.9. When unprone for chest x-ray this a.m. desaturated. Currently on 90% FiO2. Actually hypertensive. No bowel movements. Remains paralyzed Objective Vital Signs Date Time Temp Pulse Resp B/P (MAP) Pulse Ox O2 Delivery O2 Flow Rate FiO2 10/29/16 12:00 60 10/29/16 12:00 86 10/29/16 12:00 100.8 22 123/67 (85) 94 147/97 (114) 10/29/16 07:50 Ventilator 10/25/16 11:07 9.00 Intake and Output 10/29/16 10/29/16 10/30/16 08:00 16:00 00:00 Intake Total 2099 ml Output Total 2450 ml Balance -351 ml Result Diagram: 10/29/16 0550 10/29/16 0550 Other Results Laboratory Tests Test 10/29/16 06:00 Blood Gas Puncture Site ART LINE Blood Gas Patient Temperature 98.6 Blood Gas HCO3 31 mmol/L (22-26) Blood Gas Base Excess 5.4 mmol/L (-2-2) Blood Gas Oxygen Saturation 91 % (90-100) Arterial Blood pH 7.33 (7.380-7.420) Arterial Blood Partial Pressure CO2 61 mmHg (38-42) Arterial Blood Partial Pressure O2 73 mmHg (61-120) Arterial Blood Oxygen Content 16.5 Vol % (12.0-20.0) Arterial Blood Carboxyhemoglobin 1.0 % (0-4) Arterial Blood Methemoglobin 1.4 % (0-2) Blood Gas Hemoglobin 12.8 G/DL (12.0-16.0) Oxygen Delivery Device VENTILATOR Blood Gas Ventilator Setting PRVC/AC Blood Gas Inspired Oxygen 55 % Imaging Last Impressions Chest X-Ray 10/28/16 0600 Signed Impressions: Service Date/Time: Friday, October 28, 2016 04:10 - CONCLUSION: 1. Cardiomegaly with minimal basilar atelectasis. Support apparatus in satisfactory position. Cristofer De Santiago MD Head CT 10/25/16 0000 Signed Impressions: Service Date/Time: September 06:08 - CONCLUSION: 1. No acute intracranial abnormalities. Cristofer De Santiago MD Carotid Artery Ultrasound 10/25/16 0000 Signed Impressions: Service Date/Time: September 08:27 - CONCLUSION: Mild to moderate plaque in both carotid systems with less than 40%% diameter stenosis by velocity criteria. Jhonathan Dietz MD CT Angiography 10/25/16 0000 Signed Impressions: Service Date/Time: September 06:12 - CONCLUSION: 1. Negative for pulmonary embolism. 2. There is a fairly large area of masslike consolidation in the medial right lung involving posterior segment right upper lobe and medial aspect of right lower lobe. There is associated right hilar and mediastinal adenopathy measuring up to 2.1 cm. Differential diagnosis includes pneumonia or underlying lung neoplasm. Close followup imaging recommended after treatment for pneumonia, to assess for underlying mass. Cristofer De Santiago MD Abdomen X-Ray 10/25/16 0000 Signed Impressions: Service Date/Time: September 16:58 - CONCLUSION: Dobbhoff feeding tube with the tip projected over the left mainstem bronchus. Jhonathan Dietz MD Objective Remarks GENERAL: 55-year-old male, currently orotracheally intubated in Rotaprone bed SKIN: Warm and dry. No rash HEAD: Normocephalic. EYES: No scleral icterus. No injection or drainage. NECK: Supple, trachea midline. obese CARDIOVASCULAR: RRR. S1, S2 no S4 without murmur. Distant RESPIRATORY: Distant breath sounds. No wheezing appreciated GASTROINTESTINAL: Abdomen soft, obese/protuberant. Hypoactive bowel sounds are appreciated MUSCULOSKELETAL: Nonpitting bilateral lower extremity edema. BACK: Nontender without obvious deformity. NEURO EXAM: Currently on paralytic drip. Date of Insertion: Oct 25, 2016 Line: Central Venous Catheter Side: Right Location: Internal, Jugular A/P Assessment and Plan Neuro/Psych: Syncope Patient is currently on propofol/fentanyl /midazolam maximum dose for sedation/ analgesia while intubated On Cisatracurium drip 1.5 mcg/kg per minute to maintain [id number] 2 out of 4 Goal of RA SS -4-[address] on admission revealed no acute intracranial findings Carotid ultrasound less than 50% stenosis bilaterally CV: Fluid overload Hypertension - DC all IV fluids Start Bumex 1 mg IV every 8 hours, which in negative balance Diamox 500 mg IV every days Home medications include amlodipine 5 mg daily and lisinopril Started hydralazine 25 mg 3 times a day and Isordil 10 mg 3 times a day for hypertension Discontinued Lisinopril 20 mg daily acute hyperkalemia Resp: Acute hypoxemic Respiratory failure Severe ARDS COPD exacerbation Pneumonia most likely community-acquired Obesity hypoventilation syndrome Tobacco use disorder CT pulmonary revealed no pulmonary embolus. Masslike consolidation in the posterior right upper lobe and medial right lower lobe. Small pleural effusion. Lymphadenopathy to 1 cm right hilum and subcarinal. Atelectasis left lower lobe. PRVC 20/550/1.1//60. Increase PEEP 10 14 and wean FiO2 Continue Prone therapy. Prone for 8 huor with supine 1 hour starting 10/29 Continue Flolan. Ventilator bundle Wean FiO2 maintain saturations greater than equal to 90% Albuterol/ipratropium every 4 hours with albuterol every 2 hours when necessary dyspnea Budesonide 0.5 mg aerosols twice a day Solu-Medrol 60 milligrams IV every 8 hours Currently on Epoprostenol at 50 ng/kg/m aerosolized today Pulmonary/Dr. Wynne following GI: Vital high protein 1.5 trickle feeds 40 cc nor goal. Goal is 65 cc an hour per nutrition's notes Famotidine 20 milligrams IV twice a day for GI prophylaxis Docusate sodium 100 mg twice a day, senna 8.6 mg twice a day, polyethylene glycol 3350 17 g twice a day and lactulose 30 cc 4 times a day for bowel regimen Relistor and mineral oil 1 today. KUB nonspecific bowel pattern : Maintain Santiago catheter while paralyzed Endo: Hyperglycemia Sliding-scale insulin with Novolin R median protocol with Accu-Cheks every 6 hours to maintain euglycemia Renal: Monitor urine output Accurate I's and O's Heme: Leukocytosis Monitor CBC daily. Follow trends ID: Pneumonia - community-acquired Zosyn/Zithromax day #5. Add Zyvox today 10/29/16 Repeat Blood sputum and urine culture Blood cultures 2, sputum no growth to date. Urine Legionella and pneumococcal antigens negative and influenza pending FEN: Hyperkalemia Hyper-magnesium s/p Calcium gluconate, insulin/D50/bicarbonate/Kayexalate and albuterol aerosols 1. Monitor potassium levels Replacing electrolyte as clinically indicated MSK: PT for passive range of motion Access -Right IJ CVL placed 10/25. Right radial arterial line placed 10/25. Prophylaxis - GI -famotidine - DVT - SCD/enoxaparin Critical Care: The total critical care time was 45 minutes. Time to perform other separately billable procedures was not included in the critical care time. Patient remains critically ill with severe hypoxemic respiratory failure and worsening pneumonia., Sepsis. Still requiring very high ventilator settings to maintain his oxygen saturation. I will increase PEEP to 16 in an attempt to reduce FiO2. Add Zyvox for MRSA coverage. Also started on aggressive diuretic regimen Roro Tyler MD Oct 29, 2016 12:42
--- NOTE | 2016-10-29 12:49 | HHI.CCPN ---
Subjective Remarks/Hospital Course 55-year-old very pleasant gentleman with past medical history of COPD, and hypertension presents complaining of shortness of breath and nausea, generalized fatigue and chills for 2 days. He thinks it has been from being out in the heat. Denies any fever, chest pain, vomiting, abdominal pain, focal weakness or numbness. In the emergency department his saturation was in mid 80s on arrival with auditory wheezing and tachypnea. He was placed on 4 liters of NC and saturating in the low 90. He does not use oxygen at home. He also mentioned 2 days ago, he came home and was sitting in a chair and was taking his shoes off when he passed out. States he woke up and was still on the chair. This has never happen before. 10/25: Patient intubated secondary to increasing oxygen requirements, altered mental status. Discussed with son. Somewhat hypertensive post intubation. 10/26: Placed on rotaprone bed last evening. Flolan initiated. Saturations improved. Afebrile. Remains on Nimbex drip. 10/27: T max 99.7. Tolerated on not prone position 2 hours yesterday. Tolerating trickle feeds. FiO2 down to 55% Subjective 10/28: Tmax 99.9. When unprone for chest x-ray this a.m. desaturated. Currently on 90% FiO2. Actually hypertensive. No bowel movements. Remains paralyzed 10/29: Remains intubated sedated on continuous Prone therapy Except for chest x- ray. Fever 100.8. Panculture requested. Zyvox added. Continue IV sedation with propofol and fentanyl and Versed, neuromuscular paralysis with Nimbex Objective Vital Signs Date Time Temp Pulse Resp B/P (MAP) Pulse Ox O2 Delivery O2 Flow Rate FiO2 10/29/16 12:00 60 10/29/16 12:00 86 10/29/16 12:00 100.8 22 123/67 (85) 94 147/97 (114) 10/29/16 07:50 Ventilator 10/25/16 11:07 9.00 Intake and Output 10/29/16 10/29/16 10/29/16 07:59 15:59 23:59 Intake Total 2099 ml Output Total 2450 ml Balance -351 ml Result Diagram: 10/29/16 0550 10/29/16 0550 Other Results Laboratory Tests Test 10/29/16 06:00 Blood Gas Puncture Site ART LINE Blood Gas Patient Temperature 98.6 Blood Gas HCO3 31 mmol/L (22-26) Blood Gas Base Excess 5.4 mmol/L (-2-2) Blood Gas Oxygen Saturation 91 % (90-100) Arterial Blood pH 7.33 (7.380-7.420) Arterial Blood Partial Pressure CO2 61 mmHg (38-42) Arterial Blood Partial Pressure O2 73 mmHg (61-120) Arterial Blood Oxygen Content 16.5 Vol % (12.0-20.0) Arterial Blood Carboxyhemoglobin 1.0 % (0-4) Arterial Blood Methemoglobin 1.4 % (0-2) Blood Gas Hemoglobin 12.8 G/DL (12.0-16.0) Oxygen Delivery Device VENTILATOR Blood Gas Ventilator Setting PRVC/AC Blood Gas Inspired Oxygen 55 % Imaging Last Impressions Chest X-Ray 10/28/16 0600 Signed Impressions: Service Date/Time: Friday, October 28, 2016 04:10 - CONCLUSION: 1. Cardiomegaly with minimal basilar atelectasis. Support apparatus in satisfactory position. Cristofer De Santiago MD Head CT 10/25/16 0000 Signed Impressions: Service Date/Time: September 06:08 - CONCLUSION: 1. No acute intracranial abnormalities. Cristofer De Santiago MD Carotid Artery Ultrasound 10/25/16 0000 Signed Impressions: Service Date/Time: September 08:27 - CONCLUSION: Mild to moderate plaque in both carotid systems with less than 40%% diameter stenosis by velocity criteria. Jhonathan Dietz MD CT Angiography 10/25/16 0000 Signed Impressions: Service Date/Time: September 06:12 - CONCLUSION: 1. Negative for pulmonary embolism. 2. There is a fairly large area of masslike consolidation in the medial right lung involving posterior segment right upper lobe and medial aspect of right lower lobe. There is associated right hilar and mediastinal adenopathy measuring up to 2.1 cm. Differential diagnosis includes pneumonia or underlying lung neoplasm. Close followup imaging recommended after treatment for pneumonia, to assess for underlying mass. Cristofer De Santiago MD Abdomen X-Ray 10/25/16 0000 Signed Impressions: Service Date/Time: September 16:58 - CONCLUSION: Dobbhoff feeding tube with the tip projected over the left mainstem bronchus. Jhonathan Dietz MD Objective Remarks Infusions: Versed Fentanyl Propofol Nimbex Flolan inhaled GENERAL: 55-year-old male, currently orotracheally intubated in Rotaprone bed SKIN: Warm and dry. No rash HEAD: Normocephalic. EYES: No scleral icterus. No injection or drainage. NECK: Limited due to Proen therapy CARDIOVASCULAR: RRR. S1, S2 no S4 without murmur. Distant RESPIRATORY: Distant breath sounds. No wheezing appreciated GASTROINTESTINAL: Abdomen soft, obese/protuberant. MUSCULOSKELETAL: Nonpitting bilateral lower extremity edema. NEURO EXAM: Currently on paralytic drip. Date of Insertion: Oct 25, 2016 Line: Central Venous Catheter Side: Right Location: Internal, Jugular A/P Assessment and Plan Neuro/Psych: Syncope Patient is currently on propofol/fentanyl /midazolam maximum dose for sedation/ analgesia while intubated On Cisatracurium drip 1.5 mcg/kg per minute to maintain [id number] 2 out of 4 Goal of RA SS -4-[address] on admission revealed no acute intracranial findings Carotid ultrasound less than 50% stenosis bilaterally CV: Fluid overload Hypertension - DC all IV fluids Start Bumex 1 mg IV every 8 hours, which in negative balance Diamox 500 mg IV every days Home medications include amlodipine 5 mg daily and lisinopril Started hydralazine 25 mg 3 times a day and Isordil 10 mg 3 times a day for hypertension Discontinued Lisinopril 20 mg daily acute hyperkalemia Resp: Acute hypoxemic Respiratory failure Severe ARDS COPD exacerbation Pneumonia most likely community-acquired Obesity hypoventilation syndrome Tobacco use disorder CT pulmonary revealed no pulmonary embolus. Masslike consolidation in the posterior right upper lobe and medial right lower lobe. Small pleural effusion. Lymphadenopathy to 1 cm right hilum and subcarinal. Atelectasis left lower lobe. PRVC 20/550/1.03/10/59. Increase PEEP 10 14 and wean FiO2 Continue Prone therapy. Prone for 8 huor with supine 1 hour starting 10/29 Continue Flolan. Ventilator bundle Wean FiO2 maintain saturations greater than equal to 90% Albuterol/ipratropium every 4 hours with albuterol every 2 hours when necessary dyspnea Budesonide 0.5 mg aerosols twice a day Solu-Medrol 60 milligrams IV every 8 hours Currently on Epoprostenol at 50 ng/kg/m aerosolized today Pulmonary/Dr. Wynne following GI: Vital high protein 1.5 trickle feeds 40 cc nor goal. Goal is 65 cc an hour per nutrition's notes Famotidine 20 milligrams IV twice a day for GI prophylaxis Docusate sodium 100 mg twice a day, senna 8.6 mg twice a day, polyethylene glycol 3350 17 g twice a day and lactulose 30 cc 4 times a day for bowel regimen Relistor and mineral oil 1 today. KUB nonspecific bowel pattern : Maintain Santiago catheter while paralyzed Endo: Hyperglycemia Sliding-scale insulin with Novolin R median protocol with Accu-Cheks every 6 hours to maintain euglycemia Renal: Monitor urine output Accurate I's and O's Heme: Leukocytosis Monitor CBC daily. Follow trends ID: Pneumonia - community-acquired Zosyn/Zithromax day #5. Add Zyvox today 10/29/16 Repeat Blood sputum and urine culture Blood cultures 2, sputum no growth to date. Urine Legionella and pneumococcal antigens negative and influenza pending FEN: Hyperkalemia Hyper-magnesium s/p Calcium gluconate, insulin/D50/bicarbonate/Kayexalate and albuterol aerosols 1. Monitor potassium levels Replacing electrolyte as clinically indicated MSK: PT for passive range of motion Access -Right IJ CVL placed 10/25. Right radial arterial line placed 10/25. Prophylaxis - GI -famotidine - DVT - SCD/enoxaparin Critical Care: The total critical care time was 45 minutes. Time to perform other separately billable procedures was not included in the critical care time. Patient remains critically ill with severe hypoxemic respiratory failure and worsening pneumonia., Sepsis. Still requiring very high ventilator settings to maintain his oxygen saturation. I will increase PEEP to 16 in an attempt to reduce FiO2. Add Zyvox for MRSA coverage. Also started on aggressive diuretic regimen Roro Tyler MD Oct 29, 2016 12:49
[2016-10-29] MEDS: BUMETANIDE INJ 1 MG/4 ML VIAL IV PUSH SCH ×2 (13:01→20:48)
[2016-10-29] MEDS: LINEZOLID 600 MG PREMIX 300 ML IV SCH (14:22)
[2016-10-29] MEDS: amLODIPine BESYLATE 5 MG TAB PO SCH (20:50)
[2016-10-29] MEDS: SODIUM CHLORIDE 0.9% FLUSH 10 ML FLUSH PRN (20:50)
[2016-10-29] MEDS: MIDAZOLAM 100 MG/100 ML INJ 100 ML IV PRN (22:34)
[2016-10-30] VITALS (25 sets, daily range): BP systolic 107–155; BP diastolic 58–98; PULSE 66–78; RESP 0–22; TEMP 98–99.9; O2SAT 91–100
[2016-10-30] MEDS: RESP: SODIUM CHLORIDE 3% 4 ML NEB NEB SCH ×5 (00:45→16:17)
[2016-10-30] MEDS: RESP: ALBUTEROL 2.5 MG/IPRATROPIUM 0.5 MG NEB (SCH) INH ×7 (00:45→23:15)
[2016-10-30] MEDS: INSULIN NovoLIN REGULAR SUPPLEMENTAL SCALE SQ SCH ×5 (01:06→23:42)
[2016-10-30] MEDS: PROPOFOL 1000 MG/100 ML IV PRN ×10 (01:07→23:43)
[2016-10-30] MEDS: LINEZOLID 600 MG PREMIX 300 ML IV SCH ×2 (01:07→13:13)
[2016-10-30] MEDS: EPOPROSTENOL NEB SOLUTION 50 NG/KG/MIN 100 ML NEB SCH ×6 (01:10→20:49)
[2016-10-30] MEDS: CISATRACURIUM 100 MG/NS 250 ML IV PRN ×6 (03:24→17:52)
[2016-10-30] MEDS: CHLORHEXIDINE GLUCONATE 2 % 1 PACK (2 CLOTHS) TOP SCH (04:00)
[2016-10-30] MEDS: BUMETANIDE INJ 1 MG/4 ML VIAL IV PUSH SCH ×3 (04:57→21:36)
[2016-10-30] MEDS: PIPERACIL-TAZO 4.5 GM PREMIX 100 ML IV SCH ×4 (04:57→23:33)
[2016-10-30] MEDS: ISOSORBIDE DINITRATE 10 MG TAB PO SCH ×3 (05:42→21:56)
[2016-10-30] MEDS: methylPREDNISolone SOD SUCC 125 MG/2 ML VIAL IV SCH ×3 (05:42→21:56)
[2016-10-30] MEDS: hydrALAZINE HCL 25 MG TAB PO SCH ×3 (05:42→21:56)
[2016-10-30] MEDS: AZITHROMYCIN INJ 500 MG in SODIUM CHLOR 0.9% 250 ML INJ 250 ML IV SCH (05:42)
[2016-10-30 06:00] LABS: AUTOMATED NEUTROPHIL # 14.9 TH/MM3 (1.8-7.7); BASOPHIL % 0.1 % (0.0-2.0); EOSINOPHIL % 0.2 % (0.0-4.0); HEMATOCRIT 41.7 % (39.0-51.0); LYMPH % 7.5 % (9.0-44.0); LYMPHOCYTE # 1.4 TH/MM3 (1.0-4.8); MEAN CORPUSCULAR HEMOGLOBIN 30.7 PG (27.0-34.0); MEAN CORPUSCULAR HGB CONC 32.3 % (32.0-36.0); MONO % 9.5 % (0.0-8.0); NEUT % 82.7 % (16.0-70.0); PLATELET COUNT 326 TH/MM3 (150-450); RED BLOOD COUNT 4.38 MIL/MM3 (4.50-5.90); RED CELL DISTRIBUTION WIDTH 14.4 % (11.6-17.2)
[2016-10-30 06:02] LABS: HEMO FLAGS AUTO DIFF
[2016-10-30 06:22] LABS: ANION GAP 5 MEQ/L (5-15); AST (GOT) 30 U/L (15-37); BICARBONATE 33.3 MEQ/L (21.0-32.0); BLOOD UREA NITROGEN 27 MG/DL (7-18); CHLORIDE 98 MEQ/L (98-107); GLOMERULAR FILTRATION RATE 113 ML/MIN (>89); MAGNESIUM 2.5 MG/DL (1.5-2.5); POTASSIUM 4.3 MEQ/L (3.5-5.1); SODIUM (NA) 136 MEQ/L (136-145)
[2016-10-30 06:31] LABS: ALKALINE PHOSPHATASE 43 U/L (45-117); ALT (GPT) 56 U/L (12-78); TOTAL BILIRUBIN ADULT 0.4 MG/DL (0.2-1.0)
--- NOTE | 2016-10-30 06:40 | RADRPT ---
EXAM DATE/TIME: 10/30/2016 05:54 [facility] COMPARISON: CT PULMONARY ANGIOGRAM, October 25, 2016, 6:12. CHEST SINGLE AP, October 29, 2016, 4:32. INDICATIONS : Respiratory status. MEDICAL HISTORY : None. SURGICAL HISTORY : None. ENCOUNTER: Subsequent ACUITY: 4 - 6 days PAIN SCORE: Non-responsive. LOCATION: Bilateral chest FINDINGS: Stable ETT, right IJ central line, and suctioned type NGT coursing beyond the GE junction with typica l minute from the image. Redemonstration of airspace consolidation in the right lung and left lower l gabi zone. Cardiomediastinal contours are stable. Remainder of exam is unchanged. CONCLUSION: 1. Stable tubes and lines, as above. 2. Stable right lung and left lower lung zone airspace consolidation. 3. No significant interval change. Nico Vaughan MD on October 30, 2016 at 6:35 Board Certified Radiologist. This report was verified electronically.
[2016-10-30] MEDS: CHLORHEXIDINE 0.12% (ORAL KIT) 15 ML CUP MT SCH ×2 (07:28→20:50)
[2016-10-30] MEDS: RESP: BUDESONIDE 0.5 MG/2 ML NEB NEB SCH ×2 (08:25→19:43)
--- NOTE | 2016-10-30 08:26 | HHI.CCPN ---
Subjective Remarks/Hospital Course 55-year-old very pleasant gentleman with past medical history of COPD, and hypertension presents complaining of shortness of breath and nausea, generalized fatigue and chills for 2 days. He thinks it has been from being out in the heat. Denies any fever, chest pain, vomiting, abdominal pain, focal weakness or numbness. In the emergency department his saturation was in mid 80s on arrival with auditory wheezing and tachypnea. He was placed on 4 liters of NC and saturating in the low 90. He does not use oxygen at home. He also mentioned 2 days ago, he came home and was sitting in a chair and was taking his shoes off when he passed out. States he woke up and was still on the chair. This has never happen before. 10/25: Patient intubated secondary to increasing oxygen requirements, altered mental status. Discussed with son. Somewhat hypertensive post intubation. 10/26: Placed on rotaprone bed last evening. Flolan initiated. Saturations improved. Afebrile. Remains on Nimbex drip. 10/27: T max 99.7. Tolerated on not prone position 2 hours yesterday. Tolerating trickle feeds. FiO2 down to 55% 10/28: Tmax 99.9. When unprone for chest x-ray this a.m. desaturated. Currently on 90% FiO2. Actually hypertensive. No bowel movements. Remains paralyzed 10/29: Remains intubated sedated on continuous Prone therapy Except for chest x- ray. Fever 100.8. Panculture requested. Zyvox added. Continue IV sedation with propofol and fentanyl and Versed, neuromuscular paralysis with Nimbex 10/30: Prone cycle changed to 8 hr prone, 1 hr supine from 10/29. Due to hypoxia will continue with same cycle today. Chest x-ray remains unchanged. Patient remains severely hypoxemic FiO2 at 75% PEEP at 16. WBC count worsened to 18. Remains neuromuscularly paralyzed. Objective Vital Signs Date Time Temp Pulse Resp B/P (MAP) Pulse Ox O2 Delivery O2 Flow Rate FiO2 10/30/16 07:55 95 75 10/30/16 06:00 77 10/30/16 04:00 98.9 22 121/69 (86) 150/91 (110) 10/29/16 07:50 Ventilator Intake and Output 10/30/16 10/30/1617 08:00 16:00 00:00 Intake Total 1308 ml Output Total 2100 ml Balance -792 ml Result Diagram: 10/30/16 0530 10/30/16 0530 Imaging Last Impressions Chest X-Ray 10/28/16 0600 Signed Impressions: Service Date/Time: Friday, October 28, 2016 04:10 - CONCLUSION: 1. Cardiomegaly with minimal basilar atelectasis. Support apparatus in satisfactory position. Cristofer De Santiago MD Head CT 10/25/16 0000 Signed Impressions: Service Date/Time: September 06:08 - CONCLUSION: 1. No acute intracranial abnormalities. Cristofer De Santiago MD Carotid Artery Ultrasound 10/25/16 0000 Signed Impressions: Service Date/Time: September 08:27 - CONCLUSION: Mild to moderate plaque in both carotid systems with less than 40%% diameter stenosis by velocity criteria. Jhonathan Dietz MD CT Angiography 10/25/16 0000 Signed Impressions: Service Date/Time: September 06:12 - CONCLUSION: 1. Negative for pulmonary embolism. 2. There is a fairly large area of masslike consolidation in the medial right lung involving posterior segment right upper lobe and medial aspect of right lower lobe. There is associated right hilar and mediastinal adenopathy measuring up to 2.1 cm. Differential diagnosis includes pneumonia or underlying lung neoplasm. Close followup imaging recommended after treatment for pneumonia, to assess for underlying mass. Cristofer De Santiago MD Abdomen X-Ray 10/25/16 0000 Signed Impressions: Service Date/Time: September 16:58 - CONCLUSION: Dobbhoff feeding tube with the tip projected over the left mainstem bronchus. Jhonathan Dietz MD Objective Remarks Infusions: Versed Fentanyl Propofol Nimbex Flolan inhaled GENERAL: 55-year-old male, currently orotracheally intubated in Rotaprone bed SKIN: Warm and dry. HEAD: Normocephalic. EYES: No scleral icterus. No injection or drainage. NECK: Limited due to Prone therapy CARDIOVASCULAR: RRR. S1, S2 no S4 without murmur. Distant RESPIRATORY: Distant breath sounds. Bilateral scattered coarse rhonchi and coarse crackles anterior lung graves GASTROINTESTINAL: Abdomen soft, obese/protuberant. MUSCULOSKELETAL: Nonpitting bilateral lower extremity edema. NEURO EXAM: Currently on paralytic drip. Date of Insertion: Oct 25, 2016 Line: Central Venous Catheter Side: Right Location: Internal, Jugular A/P Assessment and Plan Neuro/Psych: Syncope Neuromuscular paralysis for ARDS/Prone therapy Head CT on admission revealed no acute intracranial findings Carotid ultrasound less than 50% stenosis bilaterally Patient is currently on propofol/fentanyl /midazolam maximum dose for sedation/ analgesia, On Cisatracurium drip Goal of RASS -4-5 CV: Fluid overload Hypertension On Bumex 1 mg IV every 8 hours, started 10/29 Diamox 500 mg IV every day 10/29- 10/31 (3 days) Achieving negative balance in the last 24 hours Home medications include amlodipine 5 mg daily and lisinopril Started hydralazine 25 mg 3 times a day and Isordil 10 mg 3 times a day for hypertension Discontinued Lisinopril 20 mg daily due to acute hyperkalemia Resp: Acute hypoxemic Respiratory failure Severe ARDS COPD exacerbation Pneumonia most likely community-acquired Obesity hypoventilation syndrome Tobacco use disorder CT pulmonary revealed no pulmonary embolus. Masslike consolidation in the posterior right upper lobe and medial right lower lobe. Small pleural effusion. Lymphadenopathy to 1 cm right hilum and subcarinal. Atelectasis left lower lobe. PRVC 20/550/1.1/. Titrate FiO2 to keep Saturation Continue Prone therapy. Prone for 8 hour with supine 1 hour starting 10/29, increase supine time to 2 hours in 24 hours Ventilator bundle, Wean FiO2 maintain saturations greater than equal to 90% Albuterol/ipratropium every 4 hours with albuterol every 2 hours when necessary dyspnea Budesonide 0.5 mg aerosols twice a day Solu-Medrol 60 milligrams IV every 8 hours Currently on Epoprostenol at 26 ng/kg/m aerosolized today Pulmonary/Dr. Wynne following GI: Vital high protein 1.5 trickle feeds 40 cc nor goal. Goal is 65 cc an hour per nutrition's notes Famotidine 20 milligrams IV twice a day for GI prophylaxis Docusate sodium 100 mg twice a day, senna 8.6 mg twice a day, polyethylene glycol 3350 17 g twice a day and lactulose 30 cc 4 times a day for bowel regimen Relistor and mineral oil 1 today. KUB nonspecific bowel pattern Having BM : Maintain Santiago catheter while paralyzed Endo: Hyperglycemia Sliding-scale insulin with Novolin R median protocol with Accu-Cheks every 6 hours to maintain euglycemia Renal: Monitor urine output Accurate I's and O's Diurese as above Heme: Leukocytosis Monitor CBC daily. Follow trends ID: Severe sepsis Pneumonia - community-acquired Zosyn/Zithromax day #6. Zyvox started 10/29/16 Day #2 f/u Repeat Blood sputum and urine culture from 10/29/16 Blood cultures 2, sputum no growth to date. Urine Legionella and pneumococcal antigens negative and influenza negative FEN: Hyperkalemia Hyper-magnesium s/p Calcium gluconate, insulin/D50/bicarbonate/Kayexalate and albuterol aerosols 1. Monitor potassium levels Replacing electrolyte as clinically indicated MSK: PT for passive range of motion Access -Right IJ CVL placed 10/25. Right radial arterial line placed 10/25. Prophylaxis - GI -famotidine - DVT - SCD/enoxaparin Critical Care: The total critical care time was 45 minutes. Time to perform other separately billable procedures was not included in the critical care time. Patient remains critically ill with severe hypoxemic respiratory failure ARDS and pneumonia., severe Sepsis. Still requiring very high ventilator settings to maintain his oxygen saturation. Continue to monitor. Roro Tyler MD Oct 30, 2016 08:26
[2016-10-30] MEDS: ARTIFICIAL TEARS OPTH OINT 3.5 APPLIC/3.5 GM TUBO EACH EYE SCH ×2 (08:29→21:34)
[2016-10-30] MEDS: SODIUM CHLORIDE 0.9% FLUSH 10 ML FLUSH SCH ×2 (08:29→20:50)
[2016-10-30] MEDS: DOCUSATE SODIUM 100 MG/10 ML UDC PO SCH ×2 (08:30→21:35)
[2016-10-30] MEDS: FAMOTIDINE 20 MG/2 ML VIAL IV PUSH SCH ×2 (08:30→21:35)
[2016-10-30] MEDS: SENNOSIDES SYRUP 8.8 MG/5 ML CUP PEG SCH ×2 (08:30→21:35)
[2016-10-30] MEDS: POLYETHYLENE GLYCOL 17 GM PKG NG SCH ×2 (08:31→21:35)
[2016-10-30] MEDS: ENOXAPARIN SODIUM 40 MG/0.4 ML SYRINGE SQ SCH ×2 (08:31→21:36)
[2016-10-30] MEDS: SODIUM CHLORIDE 0.9% FLUSH 10 ML FLUSH IVF SCH (08:31)
[2016-10-30] MEDS: BENEPROTEIN POWDER 1 PACK G-TUBE SCH ×3 (08:31→17:23)
[2016-10-30] MEDS: LACTULOSE SYRUP 20 GM/30 ML CUP PO SCH ×4 (08:31→21:35)
[2016-10-30 08:41] LABS: BANDS 11 % (0-6); NEUTROPHIL # MANUAL DIFF 14.2 TH/MM3 (1.8-7.7); PLATELET ESTIMATE SMEAR NORMAL (NORMAL); PLATELET MORPHOLOGY NORMAL (NORMAL); POLYS (SEG NEUTROPHILS) 68 % (16-70); SCAN/DIFF FINAL DIFF MANUAL; WBC DIFF SAMPLE 100
[2016-10-30 08:43] LABS: BLOOD GAS CARBOXYHEMOGLOBIN 1.1 % (0-4); BLOOD GAS HCO3 27 mmol/L (22-26); BLOOD GAS METHEMOGLOBIN 1.3 % (0-2); BLOOD GAS O2 HGB SATURATION 94 % (90-100); BLOOD GAS OXYGEN CONTENT 20.1 Vol % (12.0-20.0); BLOOD GAS PCO2 45 mmHg (38-42); BLOOD GAS PO2 82 mmHg (61-120); BLOOD GAS TOTAL HGB 15.2 G/DL (12.0-16.0); TEMP CORR TO 98.6
[2016-10-30 08:44] LABS: CRITICAL VALUE NO; DRAW SITE A LINE; FIO2 65 %; OXYGEN DEVICE VENTILATOR; STAT NO; ULNAR PULSE PRESENT
[2016-10-30] MEDS: fentaNYL DRIP 250 ML IV PRN ×2 (09:58→17:52)
[2016-10-30] MEDS: MIDAZOLAM 100 MG/100 ML INJ 100 ML IV PRN ×2 (09:59→23:33)
[2016-10-30] MEDS: SODIUM CHLORIDE 0.9% FLUSH 10 ML FLUSH PRN (20:50)
[2016-10-30] MEDS: amLODIPine BESYLATE 5 MG TAB PO SCH (21:35)
[2016-10-30] MEDS: hydrALAZINE HCL 20 MG/ML VIAL IV PUSH PRN (23:43)
[2016-10-31] VITALS (21 sets, daily range): BP systolic 126–193; BP diastolic 48–92; PULSE 66–82; RESP 22–23; TEMP 99–99.7; O2SAT 92–96
[2016-10-31] MEDS: CISATRACURIUM 100 MG/NS 250 ML IV PRN ×8 (00:03→23:26)
[2016-10-31] MEDS: PROPOFOL 1000 MG/100 ML IV PRN ×11 (01:47→22:51)
[2016-10-31] MEDS: LINEZOLID 600 MG PREMIX 300 ML IV SCH ×2 (01:47→13:07)
[2016-10-31] MEDS: RESP: ALBUTEROL 2.5 MG/IPRATROPIUM 0.5 MG NEB (SCH) INH ×5 (03:35→20:01)
[2016-10-31 03:52] LABS: C PNEUMO IGA <1:16 (<1:16); C PNEUMO IGM <1:10 (<1:10)
[2016-10-31] MEDS: CHLORHEXIDINE GLUCONATE 2 % 1 PACK (2 CLOTHS) TOP SCH (04:00)
[2016-10-31] MEDS: EPOPROSTENOL NEB SOLUTION 50 NG/KG/MIN 100 ML NEB SCH ×2 (04:32)
[2016-10-31] MEDS: PIPERACIL-TAZO 4.5 GM PREMIX 100 ML IV SCH ×4 (04:33→22:52)
[2016-10-31] MEDS: hydrALAZINE HCL 20 MG/ML VIAL IV PUSH PRN (04:33)
[2016-10-31] MEDS: BUMETANIDE INJ 1 MG/4 ML VIAL IV PUSH SCH ×3 (04:34→20:59)
[2016-10-31] MEDS: methylPREDNISolone SOD SUCC 125 MG/2 ML VIAL IV SCH (05:08)
[2016-10-31] MEDS: MIDAZOLAM 100 MG/100 ML INJ 100 ML IV PRN ×2 (05:08→16:12)
[2016-10-31] MEDS: ISOSORBIDE DINITRATE 10 MG TAB PO SCH ×3 (05:08→21:01)
[2016-10-31] MEDS: hydrALAZINE HCL 25 MG TAB PO SCH ×3 (05:09→21:01)
[2016-10-31] MEDS: AZITHROMYCIN INJ 500 MG in SODIUM CHLOR 0.9% 250 ML INJ 250 ML IV SCH (05:09)
--- NOTE | 2016-10-31 05:18 | RADRPT ---
EXAM DATE/TIME: 10/31/2016 03:43 [facility] COMPARISON: CHEST SINGLE AP, October 30, 2016, 5:54. INDICATIONS : Short of breath. MEDICAL HISTORY : None. SURGICAL HISTORY : None. ENCOUNTER: Subsequent ACUITY: 1 week PAIN SCORE: 0/10 LOCATION: Bilateral chest FINDINGS: Stable ETT and NGT. Redemonstration of airspace disease throughout the medial right lung and left low er lung zone. Cardiomediastinal contours are stable. Remainder of exam is unchanged. CONCLUSION: 1. Stable ETT and NGT. 2. Stable right lung and left lower lung zone airspace consolidation. 3. No significant interval change. Nico Vaughan MD on October 31, 2016 at 5:16 Board Certified Radiologist. This report was verified electronically.
[2016-10-31 05:23] LABS: AUTOMATED NEUTROPHIL # 16.2 TH/MM3 (1.8-7.7); BASOPHIL # 0.2 TH/MM3 (0-0.2); BASOPHIL % 1.3 % (0.0-2.0); HEMATOCRIT 43.4 % (39.0-51.0); LYMPH % 3.3 % (9.0-44.0); LYMPHOCYTE # 0.6 TH/MM3 (1.0-4.8); MEAN CELL VOLUME 94.9 FL (80.0-100.0); MEAN CORPUSCULAR HEMOGLOBIN 31.4 PG (27.0-34.0); MONO % 6.3 % (0.0-8.0); NEUT % 89.1 % (16.0-70.0); PLATELET COUNT 344 TH/MM3 (150-450); RED BLOOD COUNT 4.57 MIL/MM3 (4.50-5.90); WHITE BLOOD COUNT 18.2 TH/MM3 (4.0-11.0)
[2016-10-31 05:34] LABS: ANION GAP 8 MEQ/L (5-15); AST (GOT) 18 U/L (15-37); BICARBONATE 28.8 MEQ/L (21.0-32.0); BLOOD UREA NITROGEN 28 MG/DL (7-18); CHLORIDE 95 MEQ/L (98-107); GLOMERULAR FILTRATION RATE 137 ML/MIN (>89); MAGNESIUM 2.2 MG/DL (1.5-2.5); POTASSIUM 4.4 MEQ/L (3.5-5.1); SODIUM (NA) 132 MEQ/L (136-145)
[2016-10-31 05:35] LABS: ALT (GPT) 61 U/L (12-78)
[2016-10-31 05:37] LABS: ALKALINE PHOSPHATASE 44 U/L (45-117); TOTAL BILIRUBIN ADULT 0.4 MG/DL (0.2-1.0)
[2016-10-31 05:38] LABS: HEMO FLAGS AUTO DIFF
[2016-10-31 06:04] LABS: BLOOD GAS BASE EXCESS 2.6 mmol/L (-2-2); BLOOD GAS CARBOXYHEMOGLOBIN 0.9 % (0-4); BLOOD GAS HCO3 28 mmol/L (22-26); BLOOD GAS METHEMOGLOBIN 1.3 % (0-2); BLOOD GAS O2 HGB SATURATION 93 % (90-100); BLOOD GAS OXYGEN CONTENT 19.6 Vol % (12.0-20.0); BLOOD GAS PCO2 54 mmHg (38-42); BLOOD GAS PO2 85 mmHg (61-120); BLOOD GAS TOTAL HGB 14.9 G/DL (12.0-16.0); TEMP CORR TO 98.6
[2016-10-31 06:05] LABS: CRITICAL VALUE YES; OXYGEN DEVICE VENTILATOR
[2016-10-31 06:06] LABS: DRAW SITE ART LINE; FIO2 60 %; STAT YES; VENT SETTINGS PRVC
[2016-10-31] MEDS: INSULIN NovoLIN REGULAR SUPPLEMENTAL SCALE SQ SCH ×3 (06:38→17:31)
[2016-10-31] MEDS: CHLORHEXIDINE 0.12% (ORAL KIT) 15 ML CUP MT SCH ×2 (08:01→20:43)
[2016-10-31] MEDS: ARTIFICIAL TEARS OPTH OINT 3.5 APPLIC/3.5 GM TUBO EACH EYE SCH ×2 (08:01→21:01)
[2016-10-31] MEDS: SODIUM CHLORIDE 0.9% FLUSH 10 ML FLUSH SCH ×2 (08:01→21:00)
[2016-10-31] MEDS: RESP: BUDESONIDE 0.5 MG/2 ML NEB NEB SCH ×2 (08:01→20:01)
[2016-10-31] MEDS: BENEPROTEIN POWDER 1 PACK G-TUBE SCH ×3 (08:02→17:30)
[2016-10-31] MEDS: SODIUM CHLORIDE 0.9% FLUSH 10 ML FLUSH IVF SCH (08:02)
[2016-10-31] MEDS: FAMOTIDINE 20 MG/2 ML VIAL IV PUSH SCH ×2 (08:02→21:01)
[2016-10-31] MEDS: DOCUSATE SODIUM 100 MG/10 ML UDC PO SCH ×2 (08:03→20:59)
[2016-10-31] MEDS: SENNOSIDES SYRUP 8.8 MG/5 ML CUP PEG SCH ×2 (08:03→21:00)
[2016-10-31] MEDS: POLYETHYLENE GLYCOL 17 GM PKG NG SCH ×2 (08:03→21:00)
[2016-10-31] MEDS: LACTULOSE SYRUP 20 GM/30 ML CUP PO SCH ×4 (08:03→20:59)
[2016-10-31] MEDS: ENOXAPARIN SODIUM 40 MG/0.4 ML SYRINGE SQ SCH ×2 (08:04→21:00)
[2016-10-31 09:09] LABS: BANDS 8 % (0-6); MYELOCYTES 3 % (0-0); PLATELET ESTIMATE SMEAR NORMAL (NORMAL); PLATELET MORPHOLOGY NORMAL (NORMAL); POLYS (SEG NEUTROPHILS) 77 % (16-70); SCAN/DIFF FINAL DIFF MANUAL; WBC DIFF SAMPLE 100
--- NOTE | 2016-10-31 09:16 | HHI.CCPN ---
Subjective Remarks/Hospital Course 55-year-old very pleasant gentleman with past medical history of COPD, and hypertension presents complaining of shortness of breath and nausea, generalized fatigue and chills for 2 days. He thinks it has been from being out in the heat. Denies any fever, chest pain, vomiting, abdominal pain, focal weakness or numbness. In the emergency department his saturation was in mid 80s on arrival with auditory wheezing and tachypnea. He was placed on 4 liters of NC and saturating in the low 90. He does not use oxygen at home. He also mentioned 2 days ago, he came home and was sitting in a chair and was taking his shoes off when he passed out. States he woke up and was still on the chair. This has never happen before. 10/25: Patient intubated secondary to increasing oxygen requirements, altered mental status. Discussed with son. Somewhat hypertensive post intubation. 10/26: Placed on rotaprone bed last evening. Flolan initiated. Saturations improved. Afebrile. Remains on Nimbex drip. 10/27: T max 99.7. Tolerated on not prone position 2 hours yesterday. Tolerating trickle feeds. FiO2 down to 55% 10/28: Tmax 99.9. When unprone for chest x-ray this a.m. desaturated. Currently on 90% FiO2. Actually hypertensive. No bowel movements. Remains paralyzed 10/29: Remains intubated sedated on continuous Prone therapy Except for chest x- ray. Fever 100.8. Panculture requested. Zyvox added. Continue IV sedation with propofol and fentanyl and Versed, neuromuscular paralysis with Nimbex 10/30: Prone cycle changed to 8 hr prone, 1 hr supine from 10/29. Due to hypoxia will continue with same cycle today. Chest x-ray remains unchanged. Patient remains severely hypoxemic FiO2 at 75% PEEP at 16. WBC count worsened to 18. Remains neuromuscularly paralyzed. 10/31: Patient remains critically ill but stable. Oxygen saturation 95% on 55 of FiO2 and PEEP of 16. Reduce PEEP to 14, FiO2 to 50% and start weaning Flolan. Increase supine time to 4 hours, reduce Prone time to 6 hours Objective Vital Signs Date Time Temp Pulse Resp B/P (MAP) Pulse Ox O2 Delivery O2 Flow Rate FiO2 10/31/16 08:01 95 50 10/31/16 08:00 73 10/31/16 08:00 99.3 22 139/74 (95) 142/67 (92) 10/30/16 08:26 Ventilator Intake and Output 10/31/16 10/31/16 11/01/16 08:00 16:00 00:00 Intake Total 685 ml Output Total 3700 ml Balance -3015 ml Result Diagram: 10/31/16 0445 10/31/16 0445 Other Results Laboratory Tests Test 10/31/16 05:35 Blood Gas Puncture Site ART LINE Blood Gas Patient Temperature 98.6 Blood Gas HCO3 28 mmol/L (22-26) Blood Gas Base Excess 2.6 mmol/L (-2-2) Blood Gas Oxygen Saturation 93 % (90-100) Arterial Blood pH 7.33 (7.380-7.420) Arterial Blood Partial Pressure CO2 54 mmHg (38-42) Arterial Blood Partial Pressure O2 85 mmHg (61-120) Arterial Blood Oxygen Content 19.6 Vol % (12.0-20.0) Arterial Blood Carboxyhemoglobin 0.9 % (0-4) Arterial Blood Methemoglobin 1.3 % (0-2) Blood Gas Hemoglobin 14.9 G/DL (12.0-16.0) Oxygen Delivery Device VENTILATOR Blood Gas Ventilator Setting PRVC Blood Gas Inspired Oxygen 60 % Imaging Last Impressions Chest X-Ray 10/28/16 0600 Signed Impressions: Service Date/Time: Friday, October 28, 2016 04:10 - CONCLUSION: 1. Cardiomegaly with minimal basilar atelectasis. Support apparatus in satisfactory position. Cristofer De Santiago MD Head CT 10/25/16 0000 Signed Impressions: Service Date/Time: September 06:08 - CONCLUSION: 1. No acute intracranial abnormalities. Cristofer De Santiago MD Carotid Artery Ultrasound 10/25/16 0000 Signed Impressions: Service Date/Time: September 08:27 - CONCLUSION: Mild to moderate plaque in both carotid systems with less than 40%% diameter stenosis by velocity criteria. Jhonathan Dietz MD CT Angiography 10/25/16 0000 Signed Impressions: Service Date/Time: September 06:12 - CONCLUSION: 1. Negative for pulmonary embolism. 2. There is a fairly large area of masslike consolidation in the medial right lung involving posterior segment right upper lobe and medial aspect of right lower lobe. There is associated right hilar and mediastinal adenopathy measuring up to 2.1 cm. Differential diagnosis includes pneumonia or underlying lung neoplasm. Close followup imaging recommended after treatment for pneumonia, to assess for underlying mass. Cristofer De Santiago MD Abdomen X-Ray 10/25/16 0000 Signed Impressions: Service Date/Time: September 16:58 - CONCLUSION: Dobbhoff feeding tube with the tip projected over the left mainstem bronchus. Jhonathan Dietz MD Objective Remarks Infusions: Versed Fentanyl Propofol Nimbex Flolan inhaled-weaning GENERAL: 55-year-old male, currently orotracheally intubated in Rotaprone bed SKIN: Warm and dry. HEAD: Normocephalic. EYES: No scleral icterus. No injection or drainage. NECK: Limited due to Prone therapy CARDIOVASCULAR: RRR. S1, S2 no S4 without murmur. Distant RESPIRATORY: Distant breath sounds. Bilateral scattered coarse rhonchi and coarse crackles anterior lung graves GASTROINTESTINAL: Abdomen soft, obese/protuberant. MUSCULOSKELETAL: Nonpitting bilateral lower extremity edema. NEURO EXAM: Currently on paralytic drip. Date of Insertion: Oct 25, 2016 Line: Central Venous Catheter Side: Right Location: Internal, Jugular A/P Assessment and Plan Neuro/Psych: Syncope Neuromuscular paralysis for ARDS/Prone therapy Patient is currently on propofol/fentanyl /midazolam maximum dose for sedation/ analgesia, On Cisatracurium drip Goal of RASS -4-[address] on admission revealed no acute intracranial findings Carotid ultrasound less than 50% stenosis bilaterally CV: Fluid overload Hypertension On Bumex 1 mg IV every 8 hours, started 10/29 Diamox 500 mg IV every day 10/29- 10/31 (3 days) Achieving negative balance in the last 24 hours UO 6.7 L in 24 hours Home medications include amlodipine 5 mg daily and lisinopril Continue hydralazine 25 mg 3 times a day and Isordil 10 mg 3 times a day for hypertension Discontinued Lisinopril 20 mg daily due to acute hyperkalemia Resp: Acute hypoxemic Respiratory failure Severe ARDS COPD exacerbation Pneumonia most likely community-acquired Obesity hypoventilation syndrome Tobacco use disorder CT pulmonary revealed no pulmonary embolus. Masslike consolidation in the posterior right upper lobe and medial right lower lobe. Small pleural effusion. Lymphadenopathy to 1 cm right hilum and subcarinal. Atelectasis left lower lobe. PRVC 20/550/1.03/10/49. Titrate FiO2 to keep Saturation >88-90% Continue Prone therapy. Prone for 6 hour with supine 4 hour starting 10/31 Ventilator bundle, Albuterol/ipratropium every 4 hours with albuterol every 2 hours when necessary dyspnea Budesonide 0.5 mg aerosols twice a day Solu-Medrol 60 milligrams IV every 8 hours-reduce to 40 mg q8 Currently on Epoprostenol at 26 ng/kg/m aerosolized today- wean to DC in 24 hours Pulmonary/Dr. Wynne following GI: Vital high protein 1.5 trickle feeds 40 cc nor goal. Goal is 65 cc an hour per nutrition's notes Famotidine 20 milligrams IV twice a day for GI prophylaxis Docusate sodium 100 mg twice a day, senna 8.6 mg twice a day, polyethylene glycol 3350 17 g twice a day and lactulose 30 cc 4 times a day for bowel regimen Relistor and mineral oil 1 today. KUB nonspecific bowel pattern Having BM : Maintain Santiago catheter while paralyzed Endo: Hyperglycemia Sliding-scale insulin with Novolin R median protocol with Accu-Cheks every 6 hours to maintain euglycemia Renal: Monitor urine output Accurate I's and O's Diurese as above Heme: Leukocytosis Monitor CBC daily. Follow trends ID: Severe sepsis Pneumonia - community-acquired Zosyn/Zithromax day #7. Zyvox started 10/29/16 Day #3 f/u Repeat Blood sputum and urine culture from 10/29/16-GNR in sputum Blood cultures 2, sputum no growth to date. Urine Legionella and pneumococcal antigens negative and influenza negative FEN: Hyperkalemia Hyper-magnesium s/p Calcium gluconate, insulin/D50/bicarbonate/Kayexalate and albuterol aerosols 1. Monitor potassium levels Replacing electrolyte as clinically indicated MSK: PT for passive range of motion Access -Right IJ CVL placed 10/25. Right radial arterial line placed 10/25. Prophylaxis - GI -famotidine - DVT - SCD/enoxaparin Critical Care: The total critical care time was 45 minutes. Time to perform other separately billable procedures was not included in the critical care time. Patient remains critically ill with severe hypoxemic respiratory failure ARDS and pneumonia., severe Sepsis. Still requiring very high ventilator settings to maintain his oxygen saturation. Continue to monitor. Roro Tyler MD Oct 31, 2016 09:16
[2016-10-31] MEDS ORDERED: EPOPROSTENOL NEB SOLUTION 30 NG/KG/MIN 100 ML NEB SCH ×2 (10:00)
[2016-10-31] MEDS: methylPREDNISolone SOD SUCC 40 MG/1 ML VIAL IV SCH ×2 (13:07→22:34)
[2016-10-31] MEDS: fentaNYL DRIP 250 ML IV PRN (15:33)
[2016-10-31] MEDS ORDERED: EPOPROSTENOL NEB SOLUTION 20 NG/KG/MIN 100 ML NEB SCH ×2 (18:00)
[2016-10-31] MEDS: amLODIPine BESYLATE 5 MG TAB PO SCH (21:00)
[2016-10-31] MEDS: EPOPROSTENOL NEB SOLUTION 10 NG/KG/MIN 100 ML NEB SCH ×2 (23:28)
[2016-11-01] VITALS (37 sets, daily range): BP systolic 113–182; BP diastolic 48–90; PULSE 71–90; RESP 17–56; TEMP 99.1–100.3; O2SAT 87–98
[2016-11-01] MEDS: RESP: ALBUTEROL 2.5 MG/IPRATROPIUM 0.5 MG NEB (SCH) INH ×4 (00:05→11:21)
[2016-11-01] MEDS: PROPOFOL 1000 MG/100 ML IV PRN ×13 (00:14→23:32)
[2016-11-01] MEDS: MIDAZOLAM 100 MG/100 ML INJ 100 ML IV PRN ×3 (00:15→19:47)
[2016-11-01] MEDS: fentaNYL DRIP 250 ML IV PRN ×4 (00:15→19:46)
[2016-11-01] MEDS: SODIUM CHLORIDE 0.9% FLUSH 10 ML FLUSH PRN (00:15)
[2016-11-01] MEDS: INSULIN NovoLIN REGULAR SUPPLEMENTAL SCALE SQ SCH ×4 (00:31→17:46)
[2016-11-01] MEDS: LINEZOLID 600 MG PREMIX 300 ML IV SCH ×2 (02:43→13:21)
[2016-11-01] MEDS: CHLORHEXIDINE GLUCONATE 2 % 1 PACK (2 CLOTHS) TOP SCH (04:00)
[2016-11-01] MEDS: PIPERACIL-TAZO 4.5 GM PREMIX 100 ML IV SCH ×4 (04:07→21:31)
[2016-11-01] MEDS: BUMETANIDE INJ 1 MG/4 ML VIAL IV PUSH SCH ×3 (04:08→19:48)
[2016-11-01 04:30] LABS: AUTOMATED NEUTROPHIL # 15.2 TH/MM3 (1.8-7.7); BASOPHIL # 0.1 TH/MM3 (0-0.2); BASOPHIL % 0.6 % (0.0-2.0); EOSINOPHIL # 0.1 TH/MM3 (0-0.4); EOSINOPHIL % 0.4 % (0.0-4.0); LYMPH % 4.6 % (9.0-44.0); LYMPHOCYTE # 0.8 TH/MM3 (1.0-4.8); MEAN CORPUSCULAR HEMOGLOBIN 31.3 PG (27.0-34.0); MONO % 11.1 % (0.0-8.0); NEUT % 83.3 % (16.0-70.0); PLATELET COUNT 360 TH/MM3 (150-450); RED BLOOD COUNT 4.53 MIL/MM3 (4.50-5.90); RED CELL DISTRIBUTION WIDTH 13.9 % (11.6-17.2); WHITE BLOOD COUNT 18.3 TH/MM3 (4.0-11.0)
[2016-11-01 04:32] LABS: HEMO FLAGS AUTO DIFF
[2016-11-01 04:53] LABS: ALT (GPT) 60 U/L (12-78); ANION GAP 7 MEQ/L (5-15); AST (GOT) 18 U/L (15-37); BICARBONATE 31.1 MEQ/L (21.0-32.0); BLOOD UREA NITROGEN 34 MG/DL (7-18); CHLORIDE 99 MEQ/L (98-107); GLOMERULAR FILTRATION RATE 100 ML/MIN (>89); MAGNESIUM 2.3 MG/DL (1.5-2.5); POTASSIUM 4.1 MEQ/L (3.5-5.1); SODIUM (NA) 137 MEQ/L (136-145)
[2016-11-01 04:56] LABS: ALKALINE PHOSPHATASE 42 U/L (45-117); TOTAL BILIRUBIN ADULT 0.3 MG/DL (0.2-1.0)
[2016-11-01 05:17] LABS: BLOOD GAS BASE EXCESS 2.7 mmol/L (-2-2); BLOOD GAS CARBOXYHEMOGLOBIN 0.9 % (0-4); BLOOD GAS HCO3 28 mmol/L (22-26); BLOOD GAS METHEMOGLOBIN 1.2 % (0-2); BLOOD GAS O2 HGB SATURATION 97 % (90-100); BLOOD GAS OXYGEN CONTENT 21.6 Vol % (12.0-20.0); BLOOD GAS PCO2 49 mmHg (38-42); BLOOD GAS PO2 140 mmHg (61-120); BLOOD GAS TOTAL HGB 15.8 G/DL (12.0-16.0); CRITICAL VALUE NO; OXYGEN DEVICE VENT; TEMP CORR TO 98.6
[2016-11-01 05:18] LABS: DRAW SITE ART LINE; FIO2 45 %; STAT NO; ULNAR PULSE PRESENT; VENT SETTINGS SEE COMMENTS
[2016-11-01] MEDS: methylPREDNISolone SOD SUCC 40 MG/1 ML VIAL IV SCH ×3 (06:01→21:31)
[2016-11-01] MEDS: AZITHROMYCIN INJ 500 MG in SODIUM CHLOR 0.9% 250 ML INJ 250 ML IV SCH (06:01)
[2016-11-01] MEDS: CISATRACURIUM 100 MG/NS 250 ML IV PRN ×6 (06:02→20:36)
[2016-11-01] MEDS: ISOSORBIDE DINITRATE 10 MG TAB PO SCH ×3 (06:02→21:30)
[2016-11-01] MEDS: hydrALAZINE HCL 25 MG TAB PO SCH ×3 (06:02→21:30)
[2016-11-01 06:08] LABS: SCAN/DIFF AUTO DIFF CONFIRMED
--- NOTE | 2016-11-01 06:31 | RADRPT ---
EXAM DATE/TIME: 11/01/2016 04:55 [facility] COMPARISON: CHEST SINGLE AP, October 31, 2016, 3:43. INDICATIONS : Respiratory disease. MEDICAL HISTORY : None. SURGICAL HISTORY : None. ENCOUNTER: Subsequent ACUITY: 4 - 6 days PAIN SCORE: Non-responsive. LOCATION: Bilateral chest FINDINGS: Stable ETT and NGT with tip omitted from the image. Progression of airspace consolidation in the righ t upper and mid lung zones. Improved aeration in the left lower lung zone. Cardiomediastinal contours are stable. Remainder of exam is unchanged. CONCLUSION: 1. Stable ETT and NGT. 2. Worsening airspace consolidation in the right upper and midlung zones. 3. Improved airspace disease in the left lower lung zone. Nico Vaughan MD on November 01, 2016 at 6:28 Board Certified Radiologist. This report was verified electronically.
[2016-11-01] MEDS: ENOXAPARIN SODIUM 40 MG/0.4 ML SYRINGE SQ SCH ×2 (08:01→19:48)
[2016-11-01] MEDS: SODIUM CHLORIDE 0.9% FLUSH 10 ML FLUSH SCH ×2 (08:01→19:47)
[2016-11-01] MEDS: POLYETHYLENE GLYCOL 17 GM PKG NG SCH ×2 (08:01→19:47)
[2016-11-01] MEDS: DOCUSATE SODIUM 100 MG/10 ML UDC PO SCH ×2 (08:01→19:47)
[2016-11-01] MEDS: SENNOSIDES SYRUP 8.8 MG/5 ML CUP PEG SCH ×2 (08:01→19:47)
[2016-11-01] MEDS: LACTULOSE SYRUP 20 GM/30 ML CUP PO SCH ×4 (08:01→19:48)
[2016-11-01] MEDS: SODIUM CHLORIDE 0.9% FLUSH 10 ML FLUSH IVF SCH (08:01)
[2016-11-01] MEDS: BENEPROTEIN POWDER 1 PACK G-TUBE SCH ×3 (08:02→17:46)
[2016-11-01] MEDS: CHLORHEXIDINE 0.12% (ORAL KIT) 15 ML CUP MT SCH ×2 (08:03→19:49)
[2016-11-01] MEDS: ARTIFICIAL TEARS OPTH OINT 3.5 APPLIC/3.5 GM TUBO EACH EYE SCH ×2 (08:03→19:49)
[2016-11-01] MEDS: FAMOTIDINE 20 MG/2 ML VIAL IV PUSH SCH ×2 (08:03→19:48)
[2016-11-01] MEDS: RESP: BUDESONIDE 0.5 MG/2 ML NEB NEB SCH ×2 (08:38→21:46)
[2016-11-01] MEDS: hydrALAZINE HCL 20 MG/ML VIAL IV PUSH PRN (08:46)
[2016-11-01] MEDS: EPOPROSTENOL NEB SOLUTION 10 NG/KG/MIN 100 ML NEB SCH ×2 (10:00)
--- NOTE | 2016-11-01 12:51 | HHI.CCPN ---
Subjective Remarks/Hospital Course 55-year-old very pleasant gentleman with past medical history of COPD, and hypertension presents complaining of shortness of breath and nausea, generalized fatigue and chills for 2 days. He thinks it has been from being out in the heat. Denies any fever, chest pain, vomiting, abdominal pain, focal weakness or numbness. In the emergency department his saturation was in mid 80s on arrival with auditory wheezing and tachypnea. He was placed on 4 liters of NC and saturating in the low 90. He does not use oxygen at home. He also mentioned 2 days ago, he came home and was sitting in a chair and was taking his shoes off when he passed out. States he woke up and was still on the chair. This has never happen before. 10/25: Patient intubated secondary to increasing oxygen requirements, altered mental status. Discussed with son. Somewhat hypertensive post intubation. 10/26: Placed on rotaprone bed last evening. Flolan initiated. Saturations improved. Afebrile. Remains on Nimbex drip. 10/27: T max 99.7. Tolerated on not prone position 2 hours yesterday. Tolerating trickle feeds. FiO2 down to 55% 10/28: Tmax 99.9. When unprone for chest x-ray this a.m. desaturated. Currently on 90% FiO2. Actually hypertensive. No bowel movements. Remains paralyzed 10/29: Remains intubated sedated on continuous Prone therapy Except for chest x- ray. Fever 100.8. Panculture requested. Zyvox added. Continue IV sedation with propofol and fentanyl and Versed, neuromuscular paralysis with Nimbex 10/30: Prone cycle changed to 8 hr prone, 1 hr supine from 10/29. Due to hypoxia will continue with same cycle today. Chest x-ray remains unchanged. Patient remains severely hypoxemic FiO2 at 75% PEEP at 16. WBC count worsened to 18. Remains neuromuscularly paralyzed. 10/31: Patient remains critically ill but stable. Oxygen saturation 95% on 55 of FiO2 and PEEP of 16. Reduce PEEP to 14, FiO2 to 50% and start weaning Flolan. Increase supine time to 4 hours, reduce Prone time to 6 hours 11/01: Patient remains intubated sedated critically ill on neuromuscular paralysis. FiO2 reduced to 50, I will attempt PEEP wean gradually to 12 today. Prone/supine cycles will be changed to 6 hours each Objective Vital Signs Date Time Temp Pulse Resp B/P (MAP) Pulse Ox O2 Delivery O2 Flow Rate FiO2 11/01/16 12:00 50 11/01/16 11:22 92 11/01/16 10:00 78 11/01/16 08:30 22 176/90 (118) 182/80 (114) 11/01/16 08:00 99.3 10/30/16 08:26 Ventilator Intake and Output 11/01/16 11/01/16 11/02/16 08:00 16:00 00:00 Intake Total 4486 ml 14.6 ml Output Total 3500 ml Balance 986 ml 14.6 ml Result Diagram: 11/01/16 0400 11/01/16 0400 Other Results Microbiology Date/Time Source Procedure Growth Status 10/29/16 14:05 Sputum Endotracheal Gram Stain - Final Complete 10/29/16 14:05 Sputum Culture - Final Enterobacter Cloacae Complete 10/29/16 15:30 Urine Catheterized Urine Urine Culture - Final NO GROWTH IN 48 HOURS. Complete Laboratory Tests Test 11/01/16 05:00 Blood Gas Puncture Site ART LINE Blood Gas Patient Temperature 98.6 Blood Gas HCO3 28 mmol/L (22-26) Blood Gas Base Excess 2.7 mmol/L (-2-2) Blood Gas Oxygen Saturation 97 % (90-100) Arterial Blood pH 7.37 (7.380-7.420) Arterial Blood Partial Pressure CO2 49 mmHg (38-42) Arterial Blood Partial Pressure O2 140 mmHg (61-120) Arterial Blood Oxygen Content 21.6 Vol % (12.0-20.0) Arterial Blood Carboxyhemoglobin 0.9 % (0-4) Arterial Blood Methemoglobin 1.2 % (0-2) Blood Gas Hemoglobin 15.8 G/DL (12.0-16.0) Oxygen Delivery Device VENT Blood Gas Ventilator Setting SEE COMMENTS Blood Gas Inspired Oxygen 45 % Imaging Last Impressions Chest X-Ray 10/28/16 0600 Signed Impressions: Service Date/Time: Friday, October 28, 2016 04:10 - CONCLUSION: 1. Cardiomegaly with minimal basilar atelectasis. Support apparatus in satisfactory position. Cristofer De Santiago MD Head CT 10/25/16 0000 Signed Impressions: Service Date/Time: September 06:08 - CONCLUSION: 1. No acute intracranial abnormalities. Cristofer De Santiago MD Carotid Artery Ultrasound 10/25/16 0000 Signed Impressions: Service Date/Time: September 08:27 - CONCLUSION: Mild to moderate plaque in both carotid systems with less than 40%% diameter stenosis by velocity criteria. Jhonathan Dietz MD CT Angiography 10/25/16 0000 Signed Impressions: Service Date/Time: September 06:12 - CONCLUSION: 1. Negative for pulmonary embolism. 2. There is a fairly large area of masslike consolidation in the medial right lung involving posterior segment right upper lobe and medial aspect of right lower lobe. There is associated right hilar and mediastinal adenopathy measuring up to 2.1 cm. Differential diagnosis includes pneumonia or underlying lung neoplasm. Close followup imaging recommended after treatment for pneumonia, to assess for underlying mass. Cristofer De Santiago MD Abdomen X-Ray 10/25/16 0000 Signed Impressions: Service Date/Time: September 16:58 - CONCLUSION: Dobbhoff feeding tube with the tip projected over the left mainstem bronchus. Jhonathan Dietz MD Objective Remarks Infusions: Versed Fentanyl Propofol Nimbex Flolan DCd GENERAL: 55-year-old male, currently orotracheally intubated in Rotoprone bed SKIN: Warm and dry. HEAD: Normocephalic. EYES: No scleral icterus. NECK: Limited due to Prone therapy CARDIOVASCULAR: RRR. S1, S2 no S4 without murmur. Distant RESPIRATORY: Distant breath sounds. Bilateral scattered coarse rhonchi and coarse crackles anterior lung graves GASTROINTESTINAL: Abdomen soft, obese MUSCULOSKELETAL: Nonpitting bilateral lower extremity edema. NEURO EXAM: Currently on paralytic drip. Urinary Catheter: Yes Assessment to: Continue Vascular Central Line Catheter: Yes Assessment to: Continue Date of Insertion: Oct 25, 2016 Line: Central Venous Catheter Side: Right Location: Internal, Jugular A/P Assessment and Plan Neuro/Psych: Syncope Neuromuscular paralysis for ARDS/Prone therapy Patient is currently on propofol/fentanyl /midazolam maximum dose for sedation/ analgesia, On Cisatracurium drip Goal of RASS 4-[address] on admission revealed no acute intracranial findings Carotid ultrasound less than 50% stenosis bilaterally CV: Fluid overload Hypertension On Bumex 1 mg IV every 8 hours, started 9/4 Diamox 500 mg IV every day 10/29- 10/31 (3 days) completed Achieving negative balance Home medications include amlodipine 5 mg daily and lisinopril Continue hydralazine 25 mg 3 times a day and Isordil 10 mg 3 times a day for hypertension Discontinued Lisinopril 20 mg daily due to acute hyperkalemia Resp: Acute hypoxemic Respiratory failure Severe ARDS COPD exacerbation Pneumonia most likely community-acquired Obesity hypoventilation syndrome Tobacco use disorder CT pulmonary revealed no pulmonary embolus. Masslike consolidation in the posterior right upper lobe and medial right lower lobe. Small pleural effusion. Lymphadenopathy to 1 cm right hilum and subcarinal. Atelectasis left lower lobe. PRVC 20/550/1.1//50. Titrate FiO2 to keep Saturation >88-90%. Wean PEEP to 12 as tolerated Continue Prone therapy. Prone for 6 hour with supine 6 hour starting 11/01. DC Prone therapy 11/02/16 Ventilator bundle, Albuterol/ipratropium every 4 hours with albuterol every 2 hours when necessary dyspnea Budesonide 0.5 mg aerosols twice a day Solu-Medrol 40 mg q8 Currently on Epoprostenol DCd 10/31 Pulmonary/Dr. Wynne following GI: Vital high protein 1.5 trickle feeds 40 cc nor goal. Goal is 65 cc an hour per nutrition's notes Famotidine 20 milligrams IV twice a day for GI prophylaxis Docusate sodium 100 mg twice a day, senna 8.6 mg twice a day, polyethylene glycol 3350 17 g twice a day and lactulose 30 cc 4 times a day for bowel regimen Relistor and mineral oil 1 today. KUB nonspecific bowel pattern Having BM : Maintain Santiago catheter while paralyzed Endo: Hyperglycemia Sliding-scale insulin with Novolin R median protocol with Accu-Cheks every 6 hours to maintain euglycemia Add Levemir 15U BID Renal: Monitor urine output Accurate I's and O's Diurese as above Heme: Leukocytosis Monitor CBC daily. Follow trends ID: Severe sepsis Pneumonia - community-acquired Zosyn/Zithromax day #8. Zyvox started 10/29/16 Day #4 f/u Repeat Blood sputum and urine culture from 10/29/16-Enterobacter in sputum Blood cultures 2, sputum no growth to date. Urine Legionella and pneumococcal antigens negative and influenza negative FEN: Hyperkalemia Hyper-magnesium s/p Calcium gluconate, insulin/D50/bicarbonate/Kayexalate and albuterol aerosols 1. Monitor potassium levels Replacing electrolyte as clinically indicated Access -Right IJ CVL placed 10/25. Right radial arterial line placed 10/25. Prophylaxis - GI -famotidine - DVT - SCD/enoxaparin Critical Care: The total critical care time was 40 minutes. Time to perform other separately billable procedures was not included in the critical care time. Patient remains critically ill with severe hypoxemic respiratory failure ARDS and pneumonia., severe Sepsis. Requiring very high ventilator settings to maintain his oxygen saturation. Roro Tyler MD Nov 01, 2016 12:51
[2016-11-01] MEDS: INSULIN DETEMIR 100 UNITS/ML VIAL SQ SCH (13:00)
[2016-11-01] MEDS: amLODIPine BESYLATE 5 MG TAB PO SCH (19:49)
[2016-11-01] MEDS: RESP: ALBUTEROL 2.5 MG/3 ML NEB (PRN) NEB (21:46)
[2016-11-02] VITALS (37 sets, daily range): BP systolic 95–205; BP diastolic 56–205; PULSE 68–84; RESP 0–24; TEMP 99–99.7; O2SAT 86–98
[2016-11-02] MEDS: INSULIN NovoLIN REGULAR SUPPLEMENTAL SCALE SQ SCH ×4 (00:12→18:01)
[2016-11-02] MEDS: INSULIN DETEMIR 100 UNITS/ML VIAL SQ SCH ×3 (00:13→13:00)
[2016-11-02] MEDS: LINEZOLID 600 MG PREMIX 300 ML IV SCH ×2 (01:04→13:58)
[2016-11-02] MEDS: PROPOFOL 1000 MG/100 ML IV PRN ×10 (01:38→20:15)
[2016-11-02] MEDS: CISATRACURIUM 100 MG/NS 250 ML IV PRN ×4 (02:56→07:10)
[2016-11-02] MEDS: RESP: ALBUTEROL 2.5 MG/3 ML NEB (PRN) NEB (03:12)
[2016-11-02] MEDS: CHLORHEXIDINE GLUCONATE 2 % 1 PACK (2 CLOTHS) TOP SCH (04:00)
[2016-11-02] MEDS: PIPERACIL-TAZO 4.5 GM PREMIX 100 ML IV SCH ×2 (04:07→11:37)
[2016-11-02] MEDS: BUMETANIDE INJ 1 MG/4 ML VIAL IV PUSH SCH ×3 (04:07→13:00)
[2016-11-02] MEDS: methylPREDNISolone SOD SUCC 40 MG/1 ML VIAL IV SCH ×2 (05:04→20:13)
[2016-11-02] MEDS: AZITHROMYCIN INJ 500 MG in SODIUM CHLOR 0.9% 250 ML INJ 250 ML IV SCH (05:04)
[2016-11-02] MEDS: hydrALAZINE HCL 25 MG TAB PO SCH ×3 (05:04→20:09)
[2016-11-02] MEDS: ISOSORBIDE DINITRATE 10 MG TAB PO SCH ×2 (05:04→20:09)
[2016-11-02] MEDS: fentaNYL DRIP 250 ML IV PRN ×2 (05:49→15:57)
[2016-11-02] MEDS: MIDAZOLAM 100 MG/100 ML INJ 100 ML IV PRN ×2 (06:27→17:55)
[2016-11-02] MEDS: RESP: BUDESONIDE 0.5 MG/2 ML NEB NEB SCH ×2 (08:03→20:39)
[2016-11-02] MEDS: SODIUM CHLORIDE 0.9% FLUSH 10 ML FLUSH SCH ×2 (08:06→20:17)
[2016-11-02] MEDS: CHLORHEXIDINE 0.12% (ORAL KIT) 15 ML CUP MT SCH ×2 (08:06→20:17)
[2016-11-02] MEDS: SODIUM CHLORIDE 0.9% FLUSH 10 ML FLUSH IVF SCH (08:07)
[2016-11-02] MEDS: POLYETHYLENE GLYCOL 17 GM PKG NG SCH ×2 (08:14→20:09)
[2016-11-02] MEDS: ENOXAPARIN SODIUM 40 MG/0.4 ML SYRINGE SQ SCH ×2 (08:14→20:09)
[2016-11-02] MEDS: LACTULOSE SYRUP 20 GM/30 ML CUP PO SCH ×4 (08:14→20:08)
[2016-11-02] MEDS: DOCUSATE SODIUM 100 MG/10 ML UDC PO SCH ×2 (08:14→20:08)
[2016-11-02] MEDS: BENEPROTEIN POWDER 1 PACK G-TUBE SCH ×3 (08:14→17:55)
[2016-11-02] MEDS: SENNOSIDES SYRUP 8.8 MG/5 ML CUP PEG SCH ×2 (08:14→20:08)
[2016-11-02] MEDS: FAMOTIDINE 20 MG/2 ML VIAL IV PUSH SCH ×2 (08:14→20:13)
[2016-11-02] MEDS: ARTIFICIAL TEARS OPTH OINT 3.5 APPLIC/3.5 GM TUBO EACH EYE SCH ×2 (08:15→20:16)
[2016-11-02 09:37] LABS: AUTOMATED NEUTROPHIL # 19.7 TH/MM3 (1.8-7.7); BASOPHIL # 0.2 TH/MM3 (0-0.2); BASOPHIL % 0.7 % (0.0-2.0); EOSINOPHIL % 0.2 % (0.0-4.0); HEMATOCRIT 45.3 % (39.0-51.0); LYMPH % 2.9 % (9.0-44.0); LYMPHOCYTE # 0.7 TH/MM3 (1.0-4.8); MEAN CELL VOLUME 94.7 FL (80.0-100.0); MEAN CORPUSCULAR HEMOGLOBIN 30.1 PG (27.0-34.0); MEAN CORPUSCULAR HGB CONC 31.8 % (32.0-36.0); MONO % 7.9 % (0.0-8.0); NEUT % 88.3 % (16.0-70.0); PLATELET COUNT 372 TH/MM3 (150-450); RED BLOOD COUNT 4.78 MIL/MM3 (4.50-5.90); WHITE BLOOD COUNT 22.3 TH/MM3 (4.0-11.0)
--- NOTE | 2016-11-02 09:37 | RADRPT ---
EXAM DATE/TIME: 11/02/2016 08:43 [facility] COMPARISON: CHEST SINGLE AP, November 01, 2016, 4:55. INDICATIONS : Respiratory disease. MEDICAL HISTORY : None. SURGICAL HISTORY : None. ENCOUNTER: Subsequent ACUITY: 1 week PAIN SCORE: Non-responsive. LOCATION: Bilateral chest FINDINGS: ET tube nasogastric tube and central venous catheter are in good position. Minimal parenchymal headlye es are present in the right upper lobe, improved in interval. The left lung is clear. The heart is minimally enlarged. The pulmonary vascularity is normal. CONCLUSION: Interval improvement with less consolidation in the right upper lobe. There is some mild loss in the right upper lobe. Ward Kim MD FACR on November 02, 2016 at 9:35 Board Certified Radiologist. This report was verified electronically.
[2016-11-02 09:43] LABS: HEMO FLAGS AUTO DIFF
[2016-11-02 09:50] LABS: ANION GAP 7 MEQ/L (5-15); AST (GOT) 13 U/L (15-37); BICARBONATE 32.4 MEQ/L (21.0-32.0); BLOOD UREA NITROGEN 32 MG/DL (7-18); CHLORIDE 96 MEQ/L (98-107); GLOMERULAR FILTRATION RATE 123 ML/MIN (>89); POTASSIUM 3.9 MEQ/L (3.5-5.1); SODIUM (NA) 135 MEQ/L (136-145)
[2016-11-02 09:56] LABS: ALKALINE PHOSPHATASE 45 U/L (45-117); ALT (GPT) 54 U/L (12-78); TOTAL BILIRUBIN ADULT 0.3 MG/DL (0.2-1.0)
[2016-11-02 10:51] LABS: BANDS 9 % (0-6); METAMYELOCYTES 1 % (0-1); MYELOCYTES 4 % (0-0); NEUTROPHIL # MANUAL DIFF 20.5 TH/MM3 (1.8-7.7); POLYS (SEG NEUTROPHILS) 78 % (16-70); WBC DIFF SAMPLE 100
[2016-11-02 10:52] LABS: SCAN/DIFF FINAL DIFF MANUAL
--- NOTE | 2016-11-02 12:42 | HHI.CCPN ---
Subjective Remarks/Hospital Course 55-year-old very pleasant gentleman with past medical history of COPD, and hypertension presents complaining of shortness of breath and nausea, generalized fatigue and chills for 2 days. He thinks it has been from being out in the heat. Denies any fever, chest pain, vomiting, abdominal pain, focal weakness or numbness. In the emergency department his saturation was in mid 80s on arrival with auditory wheezing and tachypnea. He was placed on 4 liters of NC and saturating in the low 90. He does not use oxygen at home. He also mentioned 2 days ago, he came home and was sitting in a chair and was taking his shoes off when he passed out. States he woke up and was still on the chair. This has never happen before. 10/25: Patient intubated secondary to increasing oxygen requirements, altered mental status. Discussed with son. Somewhat hypertensive post intubation. 10/26: Placed on rotaprone bed last evening. Flolan initiated. Saturations improved. Afebrile. Remains on Nimbex drip. 10/27: T max 99.7. Tolerated on not prone position 2 hours yesterday. Tolerating trickle feeds. FiO2 down to 55% 10/28: Tmax 99.9. When unprone for chest x-ray this a.m. desaturated. Currently on 90% FiO2. Actually hypertensive. No bowel movements. Remains paralyzed 10/29: Remains intubated sedated on continuous Prone therapy Except for chest x- ray. Fever 100.8. Panculture requested. Zyvox added. Continue IV sedation with propofol and fentanyl and Versed, neuromuscular paralysis with Nimbex 10/30: Prone cycle changed to 8 hr prone, 1 hr supine from 10/29. Due to hypoxia will continue with same cycle today. Chest x-ray remains unchanged. Patient remains severely hypoxemic FiO2 at 75% PEEP at 16. WBC count worsened to 18. Remains neuromuscularly paralyzed. 10/31: Patient remains critically ill but stable. Oxygen saturation 95% on 55 of FiO2 and PEEP of 16. Reduce PEEP to 14, FiO2 to 50% and start weaning Flolan. Increase supine time to 4 hours, reduce Prone time to 6 hours 11/01: Patient remains intubated sedated critically ill on neuromuscular paralysis. FiO2 reduced to 50, I will attempt PEEP wean gradually to 12 today. Prone/supine cycles will be changed to 6 hours each 11/02: FiO2 remains at 50%, PEEP reduced from 14 to 12 today, TV increased to 600 and RR to 20, in anticipation of discontinuing prone therapy, which will be DCd today. Off Flolan for 2 days Objective Vital Signs Date Time Temp Pulse Resp B/P (MAP) Pulse Ox O2 Delivery O2 Flow Rate FiO2 11/02/16 12:30 68 20 128/76 (93) 98 161/83 (109) 11/02/16 12:00 70 11/02/16 12:00 99.0 10/30/16 08:26 Ventilator Intake and Output 11/02/16 11/02/16 11/03/16 08:00 16:00 00:00 Intake Total 2807 ml Output Total 4150 ml Balance -1343 ml Result Diagram: 11/02/16 0830 11/02/16 0830 Imaging Last Impressions Chest X-Ray 10/28/16 0600 Signed Impressions: Service Date/Time: Friday, October 28, 2016 04:10 - CONCLUSION: 1. Cardiomegaly with minimal basilar atelectasis. Support apparatus in satisfactory position. Cristofer De Santiago MD Head CT 10/25/16 0000 Signed Impressions: Service Date/Time: September 06:08 - CONCLUSION: 1. No acute intracranial abnormalities. Cristofer De Santiago MD Carotid Artery Ultrasound 10/25/16 0000 Signed Impressions: Service Date/Time: September 08:27 - CONCLUSION: Mild to moderate plaque in both carotid systems with less than 40%% diameter stenosis by velocity criteria. Jhonathan Dietz MD CT Angiography 10/25/16 0000 Signed Impressions: Service Date/Time: September 06:12 - CONCLUSION: 1. Negative for pulmonary embolism. 2. There is a fairly large area of masslike consolidation in the medial right lung involving posterior segment right upper lobe and medial aspect of right lower lobe. There is associated right hilar and mediastinal adenopathy measuring up to 2.1 cm. Differential diagnosis includes pneumonia or underlying lung neoplasm. Close followup imaging recommended after treatment for pneumonia, to assess for underlying mass. Cristofer De Santiago MD Abdomen X-Ray 10/25/16 0000 Signed Impressions: Service Date/Time: September 16:58 - CONCLUSION: Dobbhoff feeding tube with the tip projected over the left mainstem bronchus. Jhonathan Dietz MD Objective Remarks Infusions: Versed Fentanyl Propofol Nimbex DC 11/02 Flolan DCd 10/31 GENERAL: 55-year-old male, currently orotracheally intubated in Rotoprone bed SKIN: Warm and dry. HEAD: Normocephalic. EYES: No scleral icterus. ENT: Orotracheally intubated NECK: Limited due to Prone therapy CARDIOVASCULAR: RRR. S1, S2 no without murmur. Distant RESPIRATORY: Distant breath sounds. Bilateral scattered coarse rhonchi and coarse crackles anterior lung graves GASTROINTESTINAL: Abdomen soft, obese MUSCULOSKELETAL: Nonpitting bilateral lower extremity edema. NEURO EXAM: On paralytic drip. Urinary Catheter: Yes Assessment to: Continue Vascular Central Line Catheter: Yes Assessment to: Continue Date of Insertion: Oct 25, 2016 Line: Central Venous Catheter Side: Right Location: Internal, Jugular A/P Assessment and Plan Neuro/Psych: Syncope Neuromuscular paralysis for ARDS/Prone therapy Patient is currently on propofol/fentanyl /midazolam maximum dose for sedation/ analgesia On Cisatracurium drip -discontinue 11/02/16 Goal of RASS -[address] on admission revealed no acute intracranial findings Carotid ultrasound less than 50% stenosis bilaterally CV: Fluid overload Hypertension On Bumex 1 mg IV every 8 hours, started 10/29. Release to 1 mg IV every 12 hours Diamox 500 mg IV every day 10/29- 10/31 (3 days) completed Achieving negative balance Home medications include amlodipine 5 mg daily and lisinopril Continue hydralazine 25 mg 3 times a day and Isordil 10 mg 3 times a day for hypertension Discontinued Lisinopril 20 mg daily due to acute hyperkalemia Resp: Acute hypoxemic Respiratory failure Severe ARDS COPD exacerbation Pneumonia most likely community-acquired Obesity hypoventilation syndrome Tobacco use disorder CT pulmonary revealed no pulmonary embolus. Masslike consolidation in the posterior right upper lobe and medial right lower lobe. Small pleural effusion. Lymphadenopathy to 1 cm right hilum and subcarinal. Atelectasis left lower lobe. PRVC 20/600/1.0/12/50. Titrate FiO2 to keep Saturation >88-90%. Discontinue Prone therapy 11/02/16. Ventilator bundle, Albuterol/ipratropium every 4 hours with albuterol every 2 hours when necessary dyspnea Budesonide 0.5 mg aerosols twice a day Solu-Medrol 40 mg q8-reduced acute to q12 Currently on Epoprostenol DCd 10/31 Pulmonary/Dr. Wynne following GI: Vital high protein 1.5 trickle feeds Goal is 65 cc an hour per nutrition's notes Famotidine 20 milligrams IV twice a day for GI prophylaxis Docusate sodium 100 mg twice a day, senna 8.6 mg twice a day, polyethylene glycol 3350 17 g twice a day and lactulose 30 cc 4 times a day for bowel regimen KUB nonspecific bowel pattern Having BM : Maintain Santiago catheter while paralyzed Endo: Hyperglycemia Sliding-scale insulin with Novolin R median protocol with Accu-Cheks every 6 hours to maintain euglycemia Levemir 15U BID started 11/01, increase to 20 BID Renal: Monitor urine output Accurate I's and O's Diurese as above Heme: Leukocytosis Monitor CBC daily, up trend most likely from steroids. Follow trends ID: Severe sepsis Pneumonia - community-acquired Zosyn/Zithromax day #9. Zyvox started 10/29/16 Day #5. DC Zosyn and Zyvox and Zithromax Place on Rocephin 2 g IV every 24 hours for additional 5 days for Enterobacter pneumonia 11/02 to 11/07) f/u Repeat Blood sputum and urine culture from 10/29/16-Enterobacter in sputum Blood cultures 2, sputum no growth to date. Urine Legionella and pneumococcal antigens negative and influenza negative FEN: Hyperkalemia Hyper-magnesium s/p Calcium gluconate, insulin/D50/bicarbonate/Kayexalate and albuterol aerosols 1. Monitor potassium levels Replacing electrolyte as clinically indicated Access -Right IJ CVL placed 10/25. Right radial arterial line placed 10/25-DC Art line Prophylaxis - GI -famotidine - DVT - SCD/enoxaparin Critical Care: The total critical care time was 40 minutes. Time to perform other separately billable procedures was not included in the critical care time. Patient remains critically ill with severe hypoxemic respiratory failure ARDS and pneumonia., severe Sepsis. Requiring very high ventilator settings to maintain his oxygen saturation. Roro Tyler MD Nov 02, 2016 12:42
[2016-11-02] MEDS: RESP: ALBUTEROL 2.5 MG/IPRATROPIUM 0.5 MG NEB (SCH) NEB ×3 (12:45→20:39)
[2016-11-02] MEDS: hydrALAZINE HCL 20 MG/ML VIAL IV PUSH PRN (12:46)
[2016-11-02] MEDS: cefTRIAXone INJ 2,000 MG in SODIUM CHLORIDE 0.9% INJ 100 ML IV SCH (13:59)
[2016-11-02] MEDS: amLODIPine BESYLATE 5 MG TAB PO SCH (20:09)
[2016-11-03] VITALS (17 sets, daily range): BP systolic 123–163; BP diastolic 64–81; PULSE 74–128; RESP 20; TEMP 99.3–100.4; O2SAT 90–100
[2016-11-03] MEDS: PROPOFOL 1000 MG/100 ML IV PRN ×6 (00:27→21:58)
[2016-11-03] MEDS: INSULIN DETEMIR 100 UNITS/ML VIAL SQ SCH ×2 (00:39→12:31)
[2016-11-03] MEDS: INSULIN NovoLIN REGULAR SUPPLEMENTAL SCALE SQ SCH ×5 (00:39→20:00)
[2016-11-03] MEDS: BUMETANIDE INJ 1 MG/4 ML VIAL IV PUSH SCH ×2 (00:40→12:29)
[2016-11-03] MEDS: LINEZOLID 600 MG PREMIX 300 ML IV SCH ×2 (00:41→14:58)
[2016-11-03] MEDS: fentaNYL DRIP 250 ML IV PRN ×3 (02:12→12:48)
[2016-11-03] MEDS: RESP: ALBUTEROL 2.5 MG/IPRATROPIUM 0.5 MG NEB (SCH) NEB ×2 (03:46→20:22)
[2016-11-03] MEDS: MIDAZOLAM 100 MG/100 ML INJ 100 ML IV PRN (03:47)
[2016-11-03] MEDS: CHLORHEXIDINE GLUCONATE 2 % 1 PACK (2 CLOTHS) TOP SCH (04:00)
--- NOTE | 2016-11-03 05:10 | RADRPT ---
EXAM DATE/TIME: 11/03/2016 03:48 [facility] COMPARISON: CHEST SINGLE AP, November 02, 2016, 8:43. INDICATIONS : Respiratory failure, ARDS MEDICAL HISTORY : None. SURGICAL HISTORY : None. ENCOUNTER: Subsequent ACUITY: 1 week PAIN SCORE: Non-responsive. LOCATION: Bilateral chest FINDINGS: Mild consolidation seen in both bases and possibly a small pleural effusion developing on the right. No pneumothorax. Endotracheal tube tip is at the level of the thoracic inlet. Nasogastric tube courses into the stomac h. There is a right IJ central venous catheter with tip in the superior vena cava. CONCLUSION: Mild bibasilar consolidation and small right pleural effusion developing. Jayson Taylor MD on November 03, 2016 at 5:07 Board Certified Radiologist. This report was verified electronically.
[2016-11-03 05:31] LABS: AUTOMATED NEUTROPHIL # 17.6 TH/MM3 (1.8-7.7); BASOPHIL # 0.2 TH/MM3 (0-0.2); BASOPHIL % 0.9 % (0.0-2.0); EOSINOPHIL # 0.1 TH/MM3 (0-0.4); EOSINOPHIL % 0.3 % (0.0-4.0); LYMPH % 5.1 % (9.0-44.0); LYMPHOCYTE # 1.1 TH/MM3 (1.0-4.8); MEAN CELL VOLUME 94.8 FL (80.0-100.0); MEAN CORPUSCULAR HEMOGLOBIN 30.4 PG (27.0-34.0); MEAN CORPUSCULAR HGB CONC 32.1 % (32.0-36.0); MONO % 9.1 % (0.0-8.0); NEUT % 84.6 % (16.0-70.0); PLATELET COUNT 360 TH/MM3 (150-450); RED BLOOD COUNT 4.75 MIL/MM3 (4.50-5.90); RED CELL DISTRIBUTION WIDTH 13.8 % (11.6-17.2); WHITE BLOOD COUNT 20.8 TH/MM3 (4.0-11.0)
[2016-11-03 05:45] LABS: HEMO FLAGS AUTO DIFF
[2016-11-03 05:52] LABS: ANION GAP 7 MEQ/L (5-15); AST (GOT) 17 U/L (15-37); BICARBONATE 33.1 MEQ/L (21.0-32.0); BLOOD UREA NITROGEN 34 MG/DL (7-18); CHLORIDE 98 MEQ/L (98-107); GLOMERULAR FILTRATION RATE 119 ML/MIN (>89); MAGNESIUM 2.4 MG/DL (1.5-2.5); POTASSIUM 3.9 MEQ/L (3.5-5.1); SODIUM (NA) 138 MEQ/L (136-145)
[2016-11-03] MEDS: hydrALAZINE HCL 25 MG TAB PO SCH ×3 (05:55→21:35)
[2016-11-03] MEDS: ISOSORBIDE DINITRATE 10 MG TAB PO SCH ×3 (05:55→21:35)
[2016-11-03 05:56] LABS: ALKALINE PHOSPHATASE 47 U/L (45-117); ALT (GPT) 60 U/L (12-78); TOTAL BILIRUBIN ADULT 0.3 MG/DL (0.2-1.0)
[2016-11-03] MEDS: SODIUM CHLORIDE 0.9% FLUSH 10 ML FLUSH IVF SCH (09:00)
[2016-11-03] MEDS: BENEPROTEIN POWDER 1 PACK G-TUBE SCH ×3 (09:00→16:16)
[2016-11-03 09:07] LABS: BANDS 7 % (0-6); METAMYELOCYTES 1 % (0-1); MYELOCYTES 3 % (0-0); NEUTROPHIL # MANUAL DIFF 17.3 TH/MM3 (1.8-7.7); PLATELET ESTIMATE SMEAR NORMAL (NORMAL); PLATELET MORPHOLOGY NORMAL (NORMAL); POLYS (SEG NEUTROPHILS) 72 % (16-70); SCAN/DIFF FINAL DIFF MANUAL; WBC DIFF SAMPLE 100
[2016-11-03] MEDS: CHLORHEXIDINE 0.12% (ORAL KIT) 15 ML CUP MT SCH ×2 (09:38→20:00)
[2016-11-03] MEDS: methylPREDNISolone SOD SUCC 40 MG/1 ML VIAL IV SCH ×2 (09:39→21:35)
[2016-11-03] MEDS: SENNOSIDES SYRUP 8.8 MG/5 ML CUP PEG SCH ×2 (09:39→21:35)
[2016-11-03] MEDS: DOCUSATE SODIUM 100 MG/10 ML UDC PO SCH ×2 (09:39→21:35)
[2016-11-03] MEDS: FAMOTIDINE 20 MG/2 ML VIAL IV PUSH SCH ×2 (09:39→21:36)
[2016-11-03] MEDS: LACTULOSE SYRUP 20 GM/30 ML CUP PO SCH ×4 (09:39→21:35)
[2016-11-03] MEDS: SODIUM CHLORIDE 0.9% FLUSH 10 ML FLUSH SCH ×2 (09:39→21:37)
[2016-11-03] MEDS: POLYETHYLENE GLYCOL 17 GM PKG NG SCH ×2 (09:39→21:36)
[2016-11-03] MEDS: ENOXAPARIN SODIUM 40 MG/0.4 ML SYRINGE SQ SCH ×2 (09:40→21:35)
[2016-11-03] MEDS: ARTIFICIAL TEARS OPTH OINT 3.5 APPLIC/3.5 GM TUBO EACH EYE SCH ×2 (09:40→21:36)
[2016-11-03] MEDS ORDERED: DEXTROSE 50% IN WATER 50 ML VIAL(D50) IV PUSH PRN (13:00)
--- NOTE | 2016-11-03 13:00 | HHI.CCPN ---
Subjective Remarks/Hospital Course 55-year-old very pleasant gentleman with past medical history of COPD, and hypertension presents complaining of shortness of breath and nausea, generalized fatigue and chills for 2 days. He thinks it has been from being out in the heat. Denies any fever, chest pain, vomiting, abdominal pain, focal weakness or numbness. In the emergency department his saturation was in mid 80s on arrival with auditory wheezing and tachypnea. He was placed on 4 liters of NC and saturating in the low 90. He does not use oxygen at home. He also mentioned 2 days ago, he came home and was sitting in a chair and was taking his shoes off when he passed out. States he woke up and was still on the chair. This has never happen before. 10/25: Patient intubated secondary to increasing oxygen requirements, altered mental status. Discussed with son. Somewhat hypertensive post intubation. 10/26: Placed on rotaprone bed last evening. Flolan initiated. Saturations improved. Afebrile. Remains on Nimbex drip. 10/27: T max 99.7. Tolerated on not prone position 2 hours yesterday. Tolerating trickle feeds. FiO2 down to 55% 10/28: Tmax 99.9. When unprone for chest x-ray this a.m. desaturated. Currently on 90% FiO2. Actually hypertensive. No bowel movements. Remains paralyzed 10/29: Remains intubated sedated on continuous Prone therapy Except for chest x- ray. Fever 100.8. Panculture requested. Zyvox added. Continue IV sedation with propofol and fentanyl and Versed, neuromuscular paralysis with Nimbex 10/30: Prone cycle changed to 8 hr prone, 1 hr supine from 10/29. Due to hypoxia will continue with same cycle today. Chest x-ray remains unchanged. Patient remains severely hypoxemic FiO2 at 75% PEEP at 16. WBC count worsened to 18. Remains neuromuscularly paralyzed. 10/31: Patient remains critically ill but stable. Oxygen saturation 95% on 55 of FiO2 and PEEP of 16. Reduce PEEP to 14, FiO2 to 50% and start weaning Flolan. Increase supine time to 4 hours, reduce Prone time to 6 hours 11/01: Patient remains intubated sedated critically ill on neuromuscular paralysis. FiO2 reduced to 50, I will attempt PEEP wean gradually to 12 today. Prone/supine cycles will be changed to 6 hours each 11/02: FiO2 remains at 50%, PEEP reduced from 14 to 12 today, TV increased to 600 and RR to 20, in anticipation of discontinuing prone therapy, which will be DCd today. Off Flolan for 2 days 11/03: off pronation. fio2 up to 65% , peep 12. agitation causing desaturation. minimal improvements. Objective Vital Signs Date Time Temp Pulse Resp B/P (MAP) Pulse Ox O2 Delivery O2 Flow Rate FiO2 11/03/16 11:53 93 65 11/03/16 10:00 81 11/03/16 08:00 99.3 20 151/81 (104) 10/30/16 08:26 Ventilator Intake and Output 11/03/16 11/03/16 11/04/16 08:00 16:00 00:00 Intake Total 1475 ml Output Total 1950 ml Balance -475 ml Result Diagram: 11/03/16 0440 11/03/16 0440 Imaging Last Impressions Chest X-Ray 10/28/16 0600 Signed Impressions: Service Date/Time: Friday, October 28, 2016 04:10 - CONCLUSION: 1. Cardiomegaly with minimal basilar atelectasis. Support apparatus in satisfactory position. Cristofer De Santiago MD Head CT 10/25/16 0000 Signed Impressions: Service Date/Time: September 06:08 - CONCLUSION: 1. No acute intracranial abnormalities. Cristofer De Santiago MD Carotid Artery Ultrasound 10/25/16 0000 Signed Impressions: Service Date/Time: September 08:27 - CONCLUSION: Mild to moderate plaque in both carotid systems with less than 40%% diameter stenosis by velocity criteria. Jhonathan Dietz MD CT Angiography 10/25/16 0000 Signed Impressions: Service Date/Time: September 06:12 - CONCLUSION: 1. Negative for pulmonary embolism. 2. There is a fairly large area of masslike consolidation in the medial right lung involving posterior segment right upper lobe and medial aspect of right lower lobe. There is associated right hilar and mediastinal adenopathy measuring up to 2.1 cm. Differential diagnosis includes pneumonia or underlying lung neoplasm. Close followup imaging recommended after treatment for pneumonia, to assess for underlying mass. Cristofer De Santiago MD Abdomen X-Ray 10/25/16 0000 Signed Impressions: Service Date/Time: September 16:58 - CONCLUSION: Dobbhoff feeding tube with the tip projected over the left mainstem bronchus. Jhonathan Dietz MD Objective Remarks Infusions: Versed Fentanyl Propofol Nimbex DC 11/02 Flolan DCd 10/31 GENERAL: 55-year-old male, currently orotracheally intubated in Rotoprone bed SKIN: Warm and dry. HEAD: Normocephalic. EYES: No scleral icterus. ENT: Orotracheally intubated NECK: Limited due to Prone therapy CARDIOVASCULAR: RRR. S1, S2 no without murmur. Distant RESPIRATORY: Distant breath sounds. Bilateral scattered coarse rhonchi and coarse crackles anterior lung graves GASTROINTESTINAL: Abdomen soft, obese MUSCULOSKELETAL: Nonpitting bilateral lower extremity edema. NEURO EXAM: On paralytic drip. Date of Insertion: Oct 25, 2016 Line: Central Venous Catheter Side: Right Location: Internal, Jugular A/P Assessment and Plan Neuro/Psych: Syncope Neuromuscular paralysis for ARDS/Prone therapy Agitated Delirium Metabolic Encephalopathy Patient is currently on propofol/fentanyl /midazolam maximum dose for sedation/ analgesia Goal of RASS -2 start seroquel 100mg po q8h start oxycodone 10mg po q4h scheduled prn dilaudid for breakthrough d/c versed drip wean prop/fent for goal RASS -2. breakthrough haldol 5mg iv q4h prn for agitation. Head CT on admission revealed no acute intracranial findings Carotid ultrasound less than 50% stenosis bilaterally CV: Fluid overload Hypertension On Bumex 1 mg IV every 12 hours Diamox 500 mg IV q8h x 3 doses today. Achieving negative balance Home medications include amlodipine 5 mg daily and lisinopril Continue hydralazine 25 mg 3 times a day and Isordil 10 mg 3 times a day for hypertension Discontinued Lisinopril 20 mg daily due to acute hyperkalemia Resp: Acute hypoxemic Respiratory failure - severe and persistent. Severe ARDS COPD exacerbation Pneumonia most likely community-acquired Obesity hypoventilation syndrome Tobacco use disorder CT pulmonary revealed no pulmonary embolus. Masslike consolidation in the posterior right upper lobe and medial right lower lobe. Small pleural effusion. Lymphadenopathy to 1 cm right hilum and subcarinal. Atelectasis left lower lobe. PRVC 20/600/1.0/. Titrate FiO2 to keep Saturation >88-90%. Discontinue Prone therapy 11/02/16. Ventilator bundle, Albuterol/ipratropium every 4 hours with albuterol every 2 hours when necessary dyspnea Budesonide 0.5 mg aerosols twice a day Solu-Medrol 40 mg q8-reduced acute to q12 Pulmonary/Dr. Wynne following GI: Morbid Obesity Vital high protein 1.5 trickle feeds Goal is 65 cc an hour per nutrition's notes Famotidine 20 milligrams IV twice a day for GI prophylaxis Docusate sodium 100 mg twice a day, senna 8.6 mg twice a day, polyethylene glycol 3350 17 g twice a day and lactulose 30 cc 4 times a day for bowel regimen KUB nonspecific bowel pattern Having BM : Maintain Santiago catheter during aggressive diuresis. Endo: Hyperglycemia Increase SSI to q4h, high dose. Levemir 20 BID. Renal: Monitor urine output Accurate I's and O's Diurese as above Heme: Leukocytosis Monitor CBC daily, up trend most likely from steroids. Follow trends ID: Severe sepsis Pneumonia - community-acquired Zosyn/Zithromax day #9. Zyvox started 10/29/16 Day #5. DC Zosyn and Zyvox and Zithromax Place on Rocephin 2 g IV every 24 hours for additional 5 days for Enterobacter pneumonia 11/02 to 11/07) f/u Repeat Blood sputum and urine culture from 10/29/16-Enterobacter in sputum Blood cultures 2, sputum no growth to date. Urine Legionella and pneumococcal antigens negative and influenza negative FEN: Hyperkalemia Hyper-magnesium s/p Calcium gluconate, insulin/D50/bicarbonate/Kayexalate and albuterol aerosols 1. Monitor potassium levels Replacing electrolyte as clinically indicated Access -Right IJ CVL placed 10/25. Right radial arterial line placed 10/25-DC Art line Prophylaxis - GI -famotidine - DVT - SCD/enoxaparin Critical Care: The total critical care time was 37 minutes. Time to perform other separately billable procedures was not included in the critical care time. Patient remains critically ill with severe hypoxemic respiratory failure ARDS and pneumonia., severe Sepsis. Requiring very high ventilator settings to maintain his oxygen saturation. Agitated delirium and encephalopathy complicating multi-organ system dysfunction and preventing further improvements. rising fio2 overnight and clinically slightly worse today than yesterday. off pathway and remaining critically ill with lungs and agitation as ongoing threats to life. Keven Franco MD Nov 03, 2016 13:00
[2016-11-03] MEDS: oxyCODONE HCL ORAL CONC 20 MG/ML SYRINGE PO SCH ×3 (14:59→22:01)
[2016-11-03] MEDS: cefTRIAXone INJ 2,000 MG in SODIUM CHLORIDE 0.9% INJ 100 ML IV SCH (15:00)
[2016-11-03] MEDS: cloNIDine HCL 0.2 MG TAB PO SCH ×2 (15:12→21:35)
[2016-11-03] MEDS: QUEtiapine FUMARATE 100 MG TAB PO SCH ×2 (15:12→21:35)
[2016-11-03] MEDS: RESP: BUDESONIDE 0.5 MG/2 ML NEB NEB SCH (20:22)
[2016-11-03] MEDS: amLODIPine BESYLATE 5 MG TAB PO SCH (21:36)
[2016-11-04] VITALS (22 sets, daily range): BP systolic 128–244; BP diastolic 58–111; PULSE 76–158; RESP 20–30; TEMP 98.9–102; O2SAT 90–95
[2016-11-04] MEDS: BUMETANIDE INJ 1 MG/4 ML VIAL IV PUSH SCH ×3 (00:49→19:59)
[2016-11-04] MEDS: INSULIN DETEMIR 100 UNITS/ML VIAL SQ SCH ×2 (00:49→12:19)
[2016-11-04] MEDS: fentaNYL DRIP 250 ML IV PRN ×3 (00:51→22:02)
[2016-11-04] MEDS: LINEZOLID 600 MG PREMIX 300 ML IV SCH ×2 (01:00→13:01)
[2016-11-04] MEDS: oxyCODONE HCL ORAL CONC 20 MG/ML SYRINGE PO SCH ×6 (02:04→21:50)
[2016-11-04] MEDS: RESP: ALBUTEROL 2.5 MG/IPRATROPIUM 0.5 MG NEB (SCH) NEB ×3 (03:43→15:30)
[2016-11-04] MEDS: INSULIN NovoLIN REGULAR SUPPLEMENTAL SCALE SQ SCH ×6 (04:00→20:00)
[2016-11-04] MEDS: CHLORHEXIDINE GLUCONATE 2 % 1 PACK (2 CLOTHS) TOP SCH (04:00)
[2016-11-04] MEDS: ACETAMINOPHEN 325 MG TAB PO PRN ×2 (04:20→20:00)
[2016-11-04 04:21] LABS: HEMATOCRIT 45.6 % (39.0-51.0); MEAN CELL VOLUME 95.1 FL (80.0-100.0); MEAN CORPUSCULAR HEMOGLOBIN 29.9 PG (27.0-34.0); MEAN CORPUSCULAR HGB CONC 31.5 % (32.0-36.0); PLATELET COUNT 348 TH/MM3 (150-450); RED CELL DISTRIBUTION WIDTH 13.9 % (11.6-17.2); REVIEW FLAG FINAL; WHITE BLOOD COUNT 20.8 TH/MM3 (4.0-11.0)
[2016-11-04 04:38] LABS: BICARBONATE 34.3 MEQ/L (21.0-32.0); POTASSIUM 3.7 MEQ/L (3.5-5.1)
[2016-11-04] MEDS: QUEtiapine FUMARATE 100 MG TAB PO SCH ×3 (05:11→21:50)
[2016-11-04] MEDS: ISOSORBIDE DINITRATE 10 MG TAB PO SCH ×3 (05:11→21:50)
[2016-11-04] MEDS: hydrALAZINE HCL 25 MG TAB PO SCH ×3 (05:11→21:50)
[2016-11-04] MEDS: cloNIDine HCL 0.2 MG TAB PO SCH (05:11)
[2016-11-04] MEDS: RESP: BUDESONIDE 0.5 MG/2 ML NEB NEB SCH ×2 (08:21→20:12)
[2016-11-04] MEDS: CHLORHEXIDINE 0.12% (ORAL KIT) 15 ML CUP MT SCH ×2 (08:29→19:59)
[2016-11-04] MEDS: LACTULOSE SYRUP 20 GM/30 ML CUP PO SCH ×4 (08:30→19:59)
[2016-11-04] MEDS: methylPREDNISolone SOD SUCC 40 MG/1 ML VIAL IV SCH ×2 (08:30→20:00)
[2016-11-04] MEDS: DOCUSATE SODIUM 100 MG/10 ML UDC PO SCH ×2 (08:30→19:59)
[2016-11-04] MEDS: ENOXAPARIN SODIUM 40 MG/0.4 ML SYRINGE SQ SCH ×2 (08:30→20:00)
[2016-11-04] MEDS: FAMOTIDINE 20 MG/2 ML VIAL IV PUSH SCH ×2 (08:31→20:00)
[2016-11-04] MEDS: SENNOSIDES SYRUP 8.8 MG/5 ML CUP PEG SCH ×2 (08:31→19:59)
[2016-11-04] MEDS: ARTIFICIAL TEARS OPTH OINT 3.5 APPLIC/3.5 GM TUBO EACH EYE SCH ×2 (08:32→20:01)
[2016-11-04] MEDS: SODIUM CHLORIDE 0.9% FLUSH 10 ML FLUSH SCH ×2 (08:32→20:01)
[2016-11-04] MEDS: BENEPROTEIN POWDER 1 PACK G-TUBE SCH ×3 (08:33→17:14)
[2016-11-04] MEDS: SODIUM CHLORIDE 0.9% FLUSH 10 ML FLUSH IVF PRN (08:33)
[2016-11-04] MEDS: SODIUM CHLORIDE 0.9% FLUSH 10 ML FLUSH PRN (08:33)
[2016-11-04] MEDS: SODIUM CHLORIDE 0.9% FLUSH 10 ML FLUSH IVF SCH (08:34)
[2016-11-04] MEDS: POLYETHYLENE GLYCOL 17 GM PKG NG SCH ×2 (08:35→20:00)
--- NOTE | 2016-11-04 11:10 | HHI.CCPN ---
Subjective Remarks/Hospital Course 55-year-old very pleasant gentleman with past medical history of COPD, and hypertension presents complaining of shortness of breath and nausea, generalized fatigue and chills for 2 days. He thinks it has been from being out in the heat. Denies any fever, chest pain, vomiting, abdominal pain, focal weakness or numbness. In the emergency department his saturation was in mid 80s on arrival with auditory wheezing and tachypnea. He was placed on 4 liters of NC and saturating in the low 90. He does not use oxygen at home. He also mentioned 2 days ago, he came home and was sitting in a chair and was taking his shoes off when he passed out. States he woke up and was still on the chair. This has never happen before. 10/25: Patient intubated secondary to increasing oxygen requirements, altered mental status. Discussed with son. Somewhat hypertensive post intubation. 10/26: Placed on rotaprone bed last evening. Flolan initiated. Saturations improved. Afebrile. Remains on Nimbex drip. 10/27: T max 99.7. Tolerated on not prone position 2 hours yesterday. Tolerating trickle feeds. FiO2 down to 55% 10/28: Tmax 99.9. When unprone for chest x-ray this a.m. desaturated. Currently on 90% FiO2. Actually hypertensive. No bowel movements. Remains paralyzed 10/29: Remains intubated sedated on continuous Prone therapy Except for chest x- ray. Fever 100.8. Panculture requested. Zyvox added. Continue IV sedation with propofol and fentanyl and Versed, neuromuscular paralysis with Nimbex 10/30: Prone cycle changed to 8 hr prone, 1 hr supine from 10/29. Due to hypoxia will continue with same cycle today. Chest x-ray remains unchanged. Patient remains severely hypoxemic FiO2 at 75% PEEP at 16. WBC count worsened to 18. Remains neuromuscularly paralyzed. 10/31: Patient remains critically ill but stable. Oxygen saturation 95% on 55 of FiO2 and PEEP of 16. Reduce PEEP to 14, FiO2 to 50% and start weaning Flolan. Increase supine time to 4 hours, reduce Prone time to 6 hours 11/01: Patient remains intubated sedated critically ill on neuromuscular paralysis. FiO2 reduced to 50, I will attempt PEEP wean gradually to 12 today. Prone/supine cycles will be changed to 6 hours each 11/02: FiO2 remains at 50%, PEEP reduced from 14 to 12 today, TV increased to 600 and RR to 20, in anticipation of discontinuing prone therapy, which will be DCd today. Off Flolan for 2 days 11/03: off pronation. fio2 up to 65% , peep 12. agitation causing desaturation. minimal improvements. 11/04: good diuresis yesterday, but despite that, fio2 persists at 65% and spo2 decreasing to 91% today. no real improvements and some worsening of pulmonary function despite ongoing aggressive therapies. still not safe for SBT given hypoxia. also severely hypertensive this morning. Objective Vital Signs Date Time Temp Pulse Resp B/P (MAP) Pulse Ox O2 Delivery O2 Flow Rate FiO2 11/04/16 08:18 94 65 11/04/16 08:00 98.9 76 20 142/77 (98) Intake and Output 11/04/16 11/04/16 11/05/16 08:00 16:00 00:00 Intake Total 1964 ml Output Total 3100 ml Balance -1136 ml Result Diagram: 11/04/16 0343 11/04/16 0343 Imaging Last Impressions Chest X-Ray 10/28/16 0600 Signed Impressions: Service Date/Time: Friday, October 28, 2016 04:10 - CONCLUSION: 1. Cardiomegaly with minimal basilar atelectasis. Support apparatus in satisfactory position. Cristofer De Santiago MD Head CT 10/25/16 0000 Signed Impressions: Service Date/Time: September 06:08 - CONCLUSION: 1. No acute intracranial abnormalities. Cristofer De Santiago MD Carotid Artery Ultrasound 10/25/16 0000 Signed Impressions: Service Date/Time: September 08:27 - CONCLUSION: Mild to moderate plaque in both carotid systems with less than 40%% diameter stenosis by velocity criteria. Jhonathan Dietz MD CT Angiography 10/25/16 0000 Signed Impressions: Service Date/Time: September 06:12 - CONCLUSION: 1. Negative for pulmonary embolism. 2. There is a fairly large area of masslike consolidation in the medial right lung involving posterior segment right upper lobe and medial aspect of right lower lobe. There is associated right hilar and mediastinal adenopathy measuring up to 2.1 cm. Differential diagnosis includes pneumonia or underlying lung neoplasm. Close followup imaging recommended after treatment for pneumonia, to assess for underlying mass. Cristofer De Santiago MD Abdomen X-Ray 10/25/16 0000 Signed Impressions: Service Date/Time: , October 25, 2016 16:58 - CONCLUSION: Dobbhoff feeding tube with the tip projected over the left mainstem bronchus. Jhonathan Dietz MD Objective Remarks Infusions: Fentanyl Propofol GENERAL: 55-year-old male, currently orotracheally intubated SKIN: Warm and dry. HEAD: Normocephalic. EYES: No scleral icterus. ENT: Orotracheally intubated NECK: Limited due to morbid obesity CARDIOVASCULAR: RRR. sinus by tele. RESPIRATORY: Distant breath sounds. Bilateral scattered coarse rhonchi and coarse crackles anterior lung graves GASTROINTESTINAL: Abdomen soft, obese MUSCULOSKELETAL: Nonpitting bilateral lower extremity edema. NEURO EXAM: RASS -3. w/d x 4. does not follow commands. Date of Insertion: Oct 25, 2016 Line: Central Venous Catheter Side: Right Location: Internal, Jugular A/P Assessment and Plan Assessment: morbidly obese male with Severe ARDS, hypoxic respiratory failure, not improving, persistently hypoxic and not even stable for SBT trials yet. off pathway. if we withdraw or even lessen full mechanical support, he would . remains critically ill. Likely will require tracheostomy and longer-term ventilation. Neuro/Psych: Syncope Neuromuscular paralysis for ARDS/Prone therapy Agitated Delirium Metabolic Encephalopathy Patient is currently on propofol/fentanyl Goal of RASS -2 seroquel 100mg po q8h oxycodone 10mg po q4h scheduled prn dilaudid for breakthrough wean prop/fent for goal RASS -2. breakthrough haldol 5mg iv q4h prn for agitation. Head CT on admission revealed no acute intracranial findings Carotid ultrasound less than 50% stenosis bilaterally CV: Fluid overload Hypertension On Bumex 1 mg IV every 12 hours, increase to q8h today. Diamox 500 mg IV q8h x 3 doses again today. Achieving negative balance Home medications include amlodipine 5 mg daily and lisinopril Continue hydralazine 25 mg 3 times a day and Isordil 10 mg 3 times a day for hypertension Discontinued Lisinopril 20 mg daily due to acute hyperkalemia add propranolol 40mg po q8hr increase home amlodipine to 10mg daily Resp: Acute hypoxemic Respiratory failure - severe and persistent. Severe ARDS COPD exacerbation Pneumonia most likely community-acquired Obesity hypoventilation syndrome Tobacco use disorder CT pulmonary revealed no pulmonary embolus. Masslike consolidation in the posterior right upper lobe and medial right lower lobe. Small pleural effusion. Lymphadenopathy to 1 cm right hilum and subcarinal. Atelectasis left lower lobe. PRVC 20/600/1.0/. Titrate FiO2 to keep Saturation >88-90%. Discontinue Prone therapy 11/02/16. Ventilator bundle, Albuterol/ipratropium every 4 hours with albuterol every 2 hours when necessary dyspnea Budesonide 0.5 mg aerosols twice a day Solu-Medrol 40 mg q8-reduced acute to q12 Pulmonary/Dr. Wynne following worse today than yesterday. no sbt. wean fio2 as tolerated. currently up to 100 % fio2 at times. GI: Morbid Obesity Vital high protein 1.5 trickle feeds Goal is 65 cc an hour per nutrition's notes Famotidine 20 milligrams IV twice a day for GI prophylaxis Docusate sodium 100 mg twice a day, senna 8.6 mg twice a day, polyethylene glycol 3350 17 g twice a day and lactulose 30 cc 4 times a day for bowel regimen KUB nonspecific bowel pattern Having BM : Maintain Santiago catheter during aggressive diuresis. Endo: Hyperglycemia Increase SSI to q4h, high dose. Levemir 20 BID. Renal: Monitor urine output Accurate I's and O's Diurese as above Heme: Leukocytosis Monitor CBC daily, up trend most likely from steroids. Follow trends ID: Severe sepsis Pneumonia - community-acquired Zosyn/Zithromax day #9. Zyvox started 10/29/16 Day #5. DC Zosyn and Zyvox and Zithromax Place on Rocephin 2 g IV every 24 hours for additional 5 days for Enterobacter pneumonia 11/02 to 11/07) f/u Repeat Blood sputum and urine culture from 10/29/16-Enterobacter in sputum Blood cultures 2, sputum no growth to date. Urine Legionella and pneumococcal antigens negative and influenza negative FEN: Hyperkalemia Hyper-magnesium s/p Calcium gluconate, insulin/D50/bicarbonate/Kayexalate and albuterol aerosols 1. Monitor potassium levels Replacing electrolyte as clinically indicated Access -Right IJ CVL placed 10/25. Right radial arterial line placed 10/25-DC Art line Prophylaxis - GI -famotidine - DVT - SCD/enoxaparin Critical Care: The total critical care time was 44 minutes. Time to perform other separately billable procedures was not included in the critical care time. Patient remains critically ill with severe hypoxemic respiratory failure ARDS and pneumonia., severe Sepsis. Requiring very high ventilator settings to maintain his oxygen saturation. Agitated delirium and encephalopathy complicating multi-organ system dysfunction and preventing further improvements. rising fio2 overnight and clinically slightly worse today than yesterday. off pathway and remaining critically ill with lungs and agitation as ongoing threats to life. Keven Franco MD Nov 04, 2016 11:10
[2016-11-04] MEDS: LABETALOL HCL 100 MG/20 ML VIAL IV PUSH PRN (11:17)
[2016-11-04] MEDS ORDERED: niCARdipine INJ 25 MG in SODIUM CHLOR 0.9% 250 ML INJ 250 ML IV PRN (12:00)
[2016-11-04] MEDS: hydrALAZINE HCL 20 MG/ML VIAL IV PUSH PRN (12:04)
[2016-11-04] MEDS: PROPOFOL 1000 MG/100 ML IV PRN ×6 (12:05→23:08)
[2016-11-04] MEDS: cefTRIAXone INJ 2,000 MG in SODIUM CHLORIDE 0.9% INJ 100 ML IV SCH (13:01)
[2016-11-04] MEDS: cloNIDine HCL 0.3 MG TAB PO SCH ×2 (13:02→21:50)
[2016-11-04] MEDS: PROPRANOLOL HCL 40 MG TAB PO SCH ×2 (14:00→21:50)
--- NOTE | 2016-11-04 15:59 | PD.PROCEDR ---
Procedure Note Procedure Procedure: Arterial Line Placement Left radial arterial line Diagnosis: Hypoxic respiratory failure Indications: Need for serial arterial blood gas sampling Consent: Emergent Description of the Procedure: The left wrist was prepped and draped sterilely. 1% lidocaine was used for local anesthesia. The pulse was located and a needle was advanced into the artery. A 20 gauge, 12 cm catheter was advanced into the artery using a modified Seldinger technique. The catheter was sutured to the skin and a sterile dressing was applied. The catheter was connected to a pressure transducer and an arterial waveform was noted. There were no immediate complications noted. There was minimal EBL. I personally performed the procedure. Keven Franco MD Nov 04, 2016 15:58
[2016-11-04] MEDS ORDERED: ALTEPLASE RECOMBINANT 2 MG VIAL IV FLUSH ONE ×2 (20:45→21:00)
[2016-11-05] VITALS (19 sets, daily range): BP systolic 123–182; BP diastolic 57–87; PULSE 68–79; RESP 19–20; TEMP 97.8–102.5; O2SAT 90–96
[2016-11-05] MEDS: INSULIN DETEMIR 100 UNITS/ML VIAL SQ SCH ×2 (00:23→12:00)
[2016-11-05] MEDS: LINEZOLID 600 MG PREMIX 300 ML IV SCH ×2 (01:09→13:16)
[2016-11-05] MEDS: RESP: ALBUTEROL 2.5 MG/IPRATROPIUM 0.5 MG NEB (SCH) NEB ×5 (01:12→20:17)
[2016-11-05] MEDS: BUMETANIDE INJ 1 MG/4 ML VIAL IV PUSH SCH ×3 (03:10→20:00)
[2016-11-05] MEDS: oxyCODONE HCL ORAL CONC 20 MG/ML SYRINGE PO SCH ×6 (03:11→22:55)
[2016-11-05] MEDS: PROPOFOL 1000 MG/100 ML IV PRN ×7 (03:11→20:02)
[2016-11-05] MEDS: CHLORHEXIDINE GLUCONATE 2 % 1 PACK (2 CLOTHS) TOP SCH (03:12)
[2016-11-05] MEDS: LABETALOL HCL 100 MG/20 ML VIAL IV PUSH PRN (03:52)
[2016-11-05] MEDS: INSULIN NovoLIN REGULAR SUPPLEMENTAL SCALE SQ SCH ×6 (04:00→19:59)
[2016-11-05 04:12] LABS: HEMATOCRIT 45.2 % (39.0-51.0); MEAN CELL VOLUME 94.5 FL (80.0-100.0); MEAN CORPUSCULAR HEMOGLOBIN 30.3 PG (27.0-34.0); MEAN CORPUSCULAR HGB CONC 32.1 % (32.0-36.0); PLATELET COUNT 328 TH/MM3 (150-450); RED BLOOD COUNT 4.78 MIL/MM3 (4.50-5.90); RED CELL DISTRIBUTION WIDTH 13.7 % (11.6-17.2); REVIEW FLAG FINAL; WHITE BLOOD COUNT 19.1 TH/MM3 (4.0-11.0)
[2016-11-05 04:30] LABS: BICARBONATE 31.3 MEQ/L (21.0-32.0); POTASSIUM 3.2 MEQ/L (3.5-5.1)
[2016-11-05] MEDS ORDERED: POTASSIUM PHOSPHATE MONOBASIC 500 MG TAB PO/TUBE PRN (04:45)
[2016-11-05] MEDS ORDERED: MAGNESIUM SULFATE INJ 2 GM in SODIUM CHLORIDE 0.9% INJ 96 ML IV PRN (04:45)
[2016-11-05] MEDS ORDERED: POTASSIUM CHLOR 20 MEQ PREMIX 100 ML IV PRN (04:45)
[2016-11-05] MEDS ORDERED: MAGNESIUM SULFATE INJ 4 GM in SODIUM CHLORIDE 0.9% INJ 92 ML IV PRN (04:45)
[2016-11-05] MEDS ORDERED: MAGNESIUM OXIDE 400 MG TAB PO PRN (04:45)
[2016-11-05] MEDS ORDERED: POTASSIUM CHLORIDE 25 MEQ EFFERVESCENT TAB PO PRN (04:45)
[2016-11-05] MEDS ORDERED: POTASSIUM PHOSPHATE MONOBASIC 500 MG TAB PO PRN (04:45)
[2016-11-05] MEDS ORDERED: POTASSIUM PHOSPHATE INJ 30 MMOL in SODIUM CHLOR 0.9% 250 ML INJ 250 ML IV PRN (04:45)
[2016-11-05] MEDS: PROPRANOLOL HCL 40 MG TAB PO SCH ×3 (05:41→22:55)
[2016-11-05] MEDS: hydrALAZINE HCL 25 MG TAB PO SCH ×3 (05:42→22:54)
[2016-11-05] MEDS: ISOSORBIDE DINITRATE 10 MG TAB PO SCH ×3 (05:42→22:55)
[2016-11-05] MEDS: QUEtiapine FUMARATE 100 MG TAB PO SCH ×3 (05:42→22:55)
[2016-11-05] MEDS: cloNIDine HCL 0.3 MG TAB PO SCH ×3 (05:42→22:54)
[2016-11-05] MEDS: POTASSIUM CHLOR 40 MEQ PREMIX 100 ML IV PRN ×2 (06:00→08:25)
[2016-11-05] MEDS: RESP: BUDESONIDE 0.5 MG/2 ML NEB NEB SCH ×2 (07:18→20:17)
[2016-11-05] MEDS: CHLORHEXIDINE 0.12% (ORAL KIT) 15 ML CUP MT SCH ×2 (07:59→20:00)
[2016-11-05] MEDS: SODIUM CHLORIDE 0.9% FLUSH 10 ML FLUSH SCH ×2 (07:59→19:59)
[2016-11-05] MEDS: ARTIFICIAL TEARS OPTH OINT 3.5 APPLIC/3.5 GM TUBO EACH EYE SCH ×2 (08:00→19:59)
[2016-11-05] MEDS: methylPREDNISolone SOD SUCC 40 MG/1 ML VIAL IV SCH ×2 (08:00→19:58)
[2016-11-05] MEDS: BENEPROTEIN POWDER 1 PACK G-TUBE SCH ×3 (08:00→17:33)
[2016-11-05] MEDS: FAMOTIDINE 20 MG/2 ML VIAL IV PUSH SCH ×2 (08:00→19:58)
[2016-11-05] MEDS: SENNOSIDES SYRUP 8.8 MG/5 ML CUP PEG SCH ×2 (08:01→19:58)
[2016-11-05] MEDS: LACTULOSE SYRUP 20 GM/30 ML CUP PO SCH ×4 (08:01→19:59)
[2016-11-05] MEDS: DOCUSATE SODIUM 100 MG/10 ML UDC PO SCH ×2 (08:01→19:59)
[2016-11-05] MEDS: POLYETHYLENE GLYCOL 17 GM PKG NG SCH ×2 (08:01→19:59)
[2016-11-05] MEDS: ENOXAPARIN SODIUM 40 MG/0.4 ML SYRINGE SQ SCH ×2 (08:02→20:01)
[2016-11-05] MEDS: fentaNYL DRIP 250 ML IV PRN ×2 (08:21→17:35)
[2016-11-05] MEDS: SODIUM CHLORIDE 0.9% FLUSH 10 ML FLUSH IVF SCH (09:12)
--- NOTE | 2016-11-05 11:09 | HHI.CCPN ---
Subjective Remarks/Hospital Course 55-year-old very pleasant gentleman with past medical history of COPD, and hypertension presents complaining of shortness of breath and nausea, generalized fatigue and chills for 2 days. He thinks it has been from being out in the heat. Denies any fever, chest pain, vomiting, abdominal pain, focal weakness or numbness. In the emergency department his saturation was in mid 80s on arrival with auditory wheezing and tachypnea. He was placed on 4 liters of NC and saturating in the low 90. He does not use oxygen at home. He also mentioned 2 days ago, he came home and was sitting in a chair and was taking his shoes off when he passed out. States he woke up and was still on the chair. This has never happen before. 10/25: Patient intubated secondary to increasing oxygen requirements, altered mental status. Discussed with son. Somewhat hypertensive post intubation. 10/26: Placed on rotaprone bed last evening. Flolan initiated. Saturations improved. Afebrile. Remains on Nimbex drip. 10/27: T max 99.7. Tolerated on not prone position 2 hours yesterday. Tolerating trickle feeds. FiO2 down to 55% 10/28: Tmax 99.9. When unprone for chest x-ray this a.m. desaturated. Currently on 90% FiO2. Actually hypertensive. No bowel movements. Remains paralyzed 10/29: Remains intubated sedated on continuous Prone therapy Except for chest x- ray. Fever 100.8. Panculture requested. Zyvox added. Continue IV sedation with propofol and fentanyl and Versed, neuromuscular paralysis with Nimbex 10/30: Prone cycle changed to 8 hr prone, 1 hr supine from 10/29. Due to hypoxia will continue with same cycle today. Chest x-ray remains unchanged. Patient remains severely hypoxemic FiO2 at 75% PEEP at 16. WBC count worsened to 18. Remains neuromuscularly paralyzed. 10/31: Patient remains critically ill but stable. Oxygen saturation 95% on 55 of FiO2 and PEEP of 16. Reduce PEEP to 14, FiO2 to 50% and start weaning Flolan. Increase supine time to 4 hours, reduce Prone time to 6 hours 11/01: Patient remains intubated sedated critically ill on neuromuscular paralysis. FiO2 reduced to 50, I will attempt PEEP wean gradually to 12 today. Prone/supine cycles will be changed to 6 hours each 11/02: FiO2 remains at 50%, PEEP reduced from 14 to 12 today, TV increased to 600 and RR to 20, in anticipation of discontinuing prone therapy, which will be DCd today. Off Flolan for 2 days 11/03: off pronation. fio2 up to 65% , peep 12. agitation causing desaturation. minimal improvements. 11/04: good diuresis yesterday, but despite that, fio2 persists at 65% and spo2 decreasing to 91% today. no real improvements and some worsening of pulmonary function despite ongoing aggressive therapies. still not safe for SBT given hypoxia. also severely hypertensive this morning. 11/05: continues to diurese well and Cr still at baseline. fio2 at 90% however, and no clinical improvements in mental status or hypoxia. still unsafe for SBT given hypoxemia. off pathway. hypertension under much better control. poor neuro status is concerning. Objective Vital Signs Date Time Temp Pulse Resp B/P (MAP) Pulse Ox O2 Delivery O2 Flow Rate FiO2 11/05/16 08:00 68 11/05/16 08:00 97.9 20 124/69 (87) 95 133/65 (87) 11/05/16 08:00 80 Intake and Output 11/05/16 11/05/16 11/06/16 08:00 16:00 00:00 Intake Total 3300 ml Output Total 3450 ml Balance -150 ml Result Diagram: 11/05/16 0349 11/05/16 0349 Imaging Last Impressions Chest X-Ray 10/28/16 0600 Signed Impressions: Service Date/Time: Friday, October 28, 2016 04:10 - CONCLUSION: 1. Cardiomegaly with minimal basilar atelectasis. Support apparatus in satisfactory position. Cristofer De Santiago MD Head CT 10/25/16 0000 Signed Impressions: Service Date/Time: September 06:08 - CONCLUSION: 1. No acute intracranial abnormalities. Cristofer De Santiago MD Carotid Artery Ultrasound 10/25/16 0000 Signed Impressions: Service Date/Time: September 08:27 - CONCLUSION: Mild to moderate plaque in both carotid systems with less than 40%% diameter stenosis by velocity criteria. Jhonathan Dietz MD CT Angiography 10/25/16 0000 Signed Impressions: Service Date/Time: September 06:12 - CONCLUSION: 1. Negative for pulmonary embolism. 2. There is a fairly large area of masslike consolidation in the medial right lung involving posterior segment right upper lobe and medial aspect of right lower lobe. There is associated right hilar and mediastinal adenopathy measuring up to 2.1 cm. Differential diagnosis includes pneumonia or underlying lung neoplasm. Close followup imaging recommended after treatment for pneumonia, to assess for underlying mass. Cristofer De Santiago MD Abdomen X-Ray 10/25/16 0000 Signed Impressions: Service Date/Time: September 16:58 - CONCLUSION: Dobbhoff feeding tube with the tip projected over the left mainstem bronchus. Jhonathan Dietz MD Objective Remarks Infusions: Fentanyl Propofol GENERAL: 55-year-old male, currently orotracheally intubated SKIN: Warm and dry. HEAD: Normocephalic. EYES: No scleral icterus. ENT: Orotracheally intubated NECK: Limited due to morbid obesity CARDIOVASCULAR: RRR. sinus by tele. RESPIRATORY: Distant breath sounds. Bilateral scattered coarse rhonchi and coarse crackles anterior lung graves GASTROINTESTINAL: Abdomen soft, obese MUSCULOSKELETAL: Nonpitting bilateral lower extremity edema. NEURO EXAM: RASS -3. w/d x 4. does not follow commands. A/P Assessment and Plan Assessment: morbidly obese male with Severe ARDS, hypoxic respiratory failure, not improving, persistently hypoxic and not even stable for SBT trials yet. off pathway. if we withdraw or even lessen full mechanical support, he would . remains critically ill. Likely will require tracheostomy and longer-term ventilation. encephalopathy is concerning, will order CT head to evaluate today. Neuro/Psych: Syncope Neuromuscular paralysis for ARDS/Prone therapy Agitated Delirium Metabolic Encephalopathy Patient is currently on propofol/fentanyl Goal of RASS -2 seroquel 100mg po q8h oxycodone 10mg po q4h scheduled prn dilaudid for breakthrough wean prop/fent for goal RASS -2. breakthrough haldol 5mg iv q4h prn for agitation. Head CT on admission revealed no acute intracranial findings Carotid ultrasound less than 50% stenosis bilaterally repeat head CT today. CV: Fluid overload Hypertension- better controlled today. Continue bumex 1mg iv q8h. Diamox 500 mg IV q8h x 3 doses again today. Achieving negative balance Home medications include amlodipine 5 mg daily and lisinopril Continue hydralazine 25 mg 3 times a day and Isordil 10 mg 3 times a day for hypertension Discontinued Lisinopril 20 mg daily due to acute hyperkalemia propranolol 40mg po q8hr amlodipine to 10mg daily Resp: Acute hypoxemic Respiratory failure - severe and persistent. Severe ARDS COPD exacerbation Pneumonia most likely community-acquired Obesity hypoventilation syndrome Tobacco use disorder CT pulmonary revealed no pulmonary embolus. Masslike consolidation in the posterior right upper lobe and medial right lower lobe. Small pleural effusion. Lymphadenopathy to 1 cm right hilum and subcarinal. Atelectasis left lower lobe. PRVC 20/600/1.0/. Titrate FiO2 to keep Saturation >88-90%. Discontinue Prone therapy 11/02/16. Ventilator bundle, Albuterol/ipratropium every 4 hours with albuterol every 2 hours when necessary dyspnea Budesonide 0.5 mg aerosols twice a day Solu-Medrol 40 mg q8-reduced acute to q12 Pulmonary/Dr. Wynne following worse today than yesterday. no sbt. wean fio2 as tolerated. continue PEEP 12. GI: Morbid Obesity Vital high protein 1.5 trickle feeds Goal is 65 cc an hour per nutrition's notes Famotidine 20 milligrams IV twice a day for GI prophylaxis Docusate sodium 100 mg twice a day, senna 8.6 mg twice a day, polyethylene glycol 3350 17 g twice a day and lactulose 30 cc 4 times a day for bowel regimen KUB nonspecific bowel pattern Having BM : Maintain Santiago catheter during aggressive diuresis. Endo: Hyperglycemia- poorly controlled. SSI to q4h, high dose. Increase levemir to 30 BID. Renal: Monitor urine output Accurate I's and O's Diurese as above Heme: Leukocytosis Monitor CBC daily, up trend most likely from steroids. Follow trends ID: Severe sepsis Pneumonia - community-acquired Zosyn/Zithromax day #9. Zyvox started 10/29/16 Day #5. DC Zosyn and Zyvox and Zithromax Place on Rocephin 2 g IV every 24 hours for additional 5 days for Enterobacter pneumonia 11/02 to 11/07) f/u Repeat Blood sputum and urine culture from 10/29/16-Enterobacter in sputum Blood cultures 2, sputum no growth to date. Urine Legionella and pneumococcal antigens negative and influenza negative FEN: Hyperkalemia Hyper-magnesium s/p Calcium gluconate, insulin/D50/bicarbonate/Kayexalate and albuterol aerosols 1. Monitor potassium levels Replacing electrolyte as clinically indicated Access -Right IJ CVL placed 10/25. Right radial arterial line placed 10/25-DC Art line , replace art line 11/04 for persistent hypertension. - does not need CVL at this time, but given gross volume overload and obesity may need secure access. Prophylaxis - GI -famotidine - DVT - SCD/enoxaparin Critical Care: The total critical care time was 32 minutes. Time to perform other separately billable procedures was not included in the critical care time. Patient remains critically ill with severe hypoxemic respiratory failure ARDS and pneumonia., severe Sepsis. Requiring very high ventilator settings to maintain his oxygen saturation. Agitated delirium and encephalopathy complicating multi-organ system dysfunction and preventing further improvements. rising fio2 overnight and clinically slightly worse today than yesterday. off pathway and remaining critically ill with lungs and encephalopathy as ongoing threats to life. Keven Franco MD Nov 05, 2016 11:09
[2016-11-05] MEDS: hydrALAZINE HCL 20 MG/ML VIAL IV PUSH PRN ×2 (11:25→20:37)
[2016-11-05] MEDS: cefTRIAXone INJ 2,000 MG in SODIUM CHLORIDE 0.9% INJ 100 ML IV SCH (13:15)
--- NOTE | 2016-11-05 19:23 | RADRPT ---
EXAM DATE/TIME: 11/05/2016 18:56 [facility] COMPARISON: CHEST SINGLE AP, November 03, 2016, 3:48. INDICATIONS : Post PICC line placement. MEDICAL HISTORY : Chronic obstructive pulmonary disease. Hypertension. SURGICAL HISTORY : None. ENCOUNTER: Subsequent ACUITY: 1 week PAIN SCORE: Non-responsive. LOCATION: Bilateral chest FINDINGS: A single view of the chest demonstrates bibasilar densities. Endotracheal tube nasogastric tube and r ight jugular central line in stable position. Right-sided PICC line with tip in SVC Osseous structur es are intact. CONCLUSION: Right-sided PICC line with tip in the SVC. Javier Ulloa MD on November 05, 2016 at 19:20 Board Certified Radiologist. This report was verified electronically.
[2016-11-05] MEDS: ACETAMINOPHEN 325 MG TAB PO PRN (19:58)
[2016-11-05] MEDS ORDERED: SODIUM CHLORIDE 0.9% FLUSH 10 ML FLUSH IV FLUSH PRN (20:00)
--- NOTE | 2016-11-05 23:16 | RADRPT ---
EXAM DATE/TIME: 11/05/2016 21:43 [facility] COMPARISON: No previous studies available for comparison. INDICATIONS : Altered mental status. RADIATION DOSE: 58.89 CTDIvol (mGy) MEDICAL HISTORY : Chronic obstructive pulmonary disease. Hypertension. SURGICAL HISTORY : None. ENCOUNTER: Initial ACUITY: 1 day PAIN SCALE: Non-responsive LOCATION: cranial TECHNIQUE: Multiple contiguous axial images were obtained of the head. Using automated exposure control and adj ustment of the mA and/or kV according to patient size, radiation dose was kept as low as reasonably a chievable to obtain optimal diagnostic quality images. DICOM format image data is available electro nically for review and comparison. FINDINGS: CEREBRUM: The ventricles are normal for age. No evidence of midline shift, mass lesion, hemorrhage or acute in farction. No extra-axial fluid collections are seen. POSTERIOR FOSSA: The cerebellum and brainstem are intact. The 4th ventricle is midline. The cerebellopontine angle i s unremarkable. EXTRACRANIAL: The visualized portion of the orbits is intact. There is pansinus opacification. SKULL: The calvaria is intact. No evidence of skull fracture. CONCLUSION: 1. No acute intracranial abnormalities. Pansinus fluid opacification. Cristofer De Santiago MD on November 05, 2016 at 23:13 Board Certified Radiologist. This report was verified electronically.
[2016-11-06] VITALS (21 sets, daily range): BP systolic 96–159; BP diastolic 61–79; PULSE 65–150; RESP 18–20; TEMP 97.8–99.7; O2SAT 88–95
[2016-11-06] MEDS: PROPOFOL 1000 MG/100 ML IV PRN ×10 (00:03→23:38)
[2016-11-06] MEDS: INSULIN DETEMIR 100 UNITS/ML VIAL SQ SCH ×2 (00:07→12:23)
[2016-11-06] MEDS: LINEZOLID 600 MG PREMIX 300 ML IV SCH ×2 (01:22→13:44)
[2016-11-06] MEDS: hydrALAZINE HCL 20 MG/ML VIAL IV PUSH PRN (02:25)
[2016-11-06] MEDS: oxyCODONE HCL ORAL CONC 20 MG/ML SYRINGE PO SCH ×6 (02:38→23:22)
[2016-11-06] MEDS: LABETALOL HCL 100 MG/20 ML VIAL IV PUSH PRN ×2 (03:18→03:33)
[2016-11-06] MEDS: CHLORHEXIDINE GLUCONATE 2 % 1 PACK (2 CLOTHS) TOP SCH (03:55)
[2016-11-06] MEDS: RESP: ALBUTEROL 2.5 MG/IPRATROPIUM 0.5 MG NEB (SCH) NEB ×4 (04:00→20:19)
[2016-11-06] MEDS: INSULIN NovoLIN REGULAR SUPPLEMENTAL SCALE SQ SCH ×6 (04:00→21:15)
[2016-11-06] MEDS ORDERED: DILTIAZEM HCL 25 MG/5 ML VIAL IV PUSH ONE (04:15)
[2016-11-06] MEDS: DILTIAZEM INJ 125 MG in SODIUM CHLORIDE 0.9% INJ 100 ML IV PRN ×3 (04:38→22:47)
[2016-11-06] MEDS: hydrALAZINE HCL 25 MG TAB PO SCH ×3 (05:29→20:49)
[2016-11-06] MEDS: QUEtiapine FUMARATE 100 MG TAB PO SCH ×3 (05:29→20:49)
[2016-11-06] MEDS: PROPRANOLOL HCL 40 MG TAB PO SCH ×3 (05:29→20:57)
[2016-11-06] MEDS: cloNIDine HCL 0.3 MG TAB PO SCH ×3 (05:29→20:49)
[2016-11-06] MEDS: ISOSORBIDE DINITRATE 10 MG TAB PO SCH ×3 (05:30→20:50)
[2016-11-06 05:31] LABS: HEMATOCRIT 43.3 % (39.0-51.0); MEAN CELL VOLUME 94.8 FL (80.0-100.0); MEAN CORPUSCULAR HGB CONC 33.7 % (32.0-36.0); PLATELET COUNT 317 TH/MM3 (150-450); RED BLOOD COUNT 4.57 MIL/MM3 (4.50-5.90); REVIEW FLAG FINAL; WHITE BLOOD COUNT 17.2 TH/MM3 (4.0-11.0)
[2016-11-06] MEDS: BUMETANIDE INJ 1 MG/4 ML VIAL IV PUSH SCH ×3 (05:32→20:51)
[2016-11-06 06:01] LABS: BICARBONATE 30.5 MEQ/L (21.0-32.0); POTASSIUM 3.2 MEQ/L (3.5-5.1)
[2016-11-06] MEDS: POTASSIUM CHLOR 40 MEQ PREMIX 100 ML IV PRN ×2 (06:20→08:52)
--- NOTE | 2016-11-06 06:25 | RADRPT ---
EXAM DATE/TIME: 11/06/2016 05:15 [facility] COMPARISON: CHEST SINGLE AP, November 05, 2016, 18:56. INDICATIONS : Short of breath. MEDICAL HISTORY : None. SURGICAL HISTORY : None. ENCOUNTER: Subsequent ACUITY: 1 week PAIN SCORE: 0/10 LOCATION: Bilateral chest FINDINGS: A single view of the chest demonstrates endotracheal tube in satisfactory position. NG enters stomach . Right central line is in superior vena cava. Basilar airspace disease similar to November 05. CONCLUSION: 1. Basilar airspace disease similar to November 05. Support apparatus in satisfactory position. Cristofer De Santiago MD on November 06, 2016 at 6:21 Board Certified Radiologist. This report was verified electronically.
[2016-11-06] MEDS: RESP: BUDESONIDE 0.5 MG/2 ML NEB NEB SCH ×2 (08:32→20:19)
[2016-11-06] MEDS: ENOXAPARIN SODIUM 40 MG/0.4 ML SYRINGE SQ SCH ×2 (08:46→20:50)
[2016-11-06] MEDS: methylPREDNISolone SOD SUCC 40 MG/1 ML VIAL IV SCH ×2 (08:48→20:50)
[2016-11-06] MEDS: BENEPROTEIN POWDER 1 PACK G-TUBE SCH ×3 (08:48→16:34)
[2016-11-06] MEDS: FAMOTIDINE 20 MG/2 ML VIAL IV PUSH SCH ×2 (08:48→20:50)
[2016-11-06] MEDS: SODIUM CHLORIDE 0.9% FLUSH 10 ML FLUSH SCH ×2 (08:49→20:51)
[2016-11-06] MEDS: POLYETHYLENE GLYCOL 17 GM PKG NG SCH ×2 (08:49→20:49)
[2016-11-06] MEDS: SENNOSIDES SYRUP 8.8 MG/5 ML CUP PEG SCH ×2 (08:49→20:49)
[2016-11-06] MEDS: SODIUM CHLORIDE 0.9% FLUSH 10 ML FLUSH IV FLUSH SCH (08:49)
[2016-11-06] MEDS: SODIUM CHLORIDE 0.9% FLUSH 10 ML FLUSH IVF SCH (08:49)
[2016-11-06] MEDS: DOCUSATE SODIUM 100 MG/10 ML UDC PO SCH ×2 (08:50→20:49)
[2016-11-06] MEDS: LACTULOSE SYRUP 20 GM/30 ML CUP PO SCH ×4 (08:50→20:49)
[2016-11-06] MEDS: CHLORHEXIDINE 0.12% (ORAL KIT) 15 ML CUP MT SCH ×2 (08:52→20:54)
[2016-11-06] MEDS: ARTIFICIAL TEARS OPTH OINT 3.5 APPLIC/3.5 GM TUBO EACH EYE SCH ×2 (08:52→20:53)
--- NOTE | 2016-11-06 10:15 | HHI.CCPN ---
Subjective Remarks/Hospital Course 55-year-old very pleasant gentleman with past medical history of COPD, and hypertension presents complaining of shortness of breath and nausea, generalized fatigue and chills for 2 days. He thinks it has been from being out in the heat. Denies any fever, chest pain, vomiting, abdominal pain, focal weakness or numbness. In the emergency department his saturation was in mid 80s on arrival with auditory wheezing and tachypnea. He was placed on 4 liters of NC and saturating in the low 90. He does not use oxygen at home. He also mentioned 2 days ago, he came home and was sitting in a chair and was taking his shoes off when he passed out. States he woke up and was still on the chair. This has never happen before. 10/25: Patient intubated secondary to increasing oxygen requirements, altered mental status. Discussed with son. Somewhat hypertensive post intubation. 10/26: Placed on rotaprone bed last evening. Flolan initiated. Saturations improved. Afebrile. Remains on Nimbex drip. 10/27: T max 99.7. Tolerated on not prone position 2 hours yesterday. Tolerating trickle feeds. FiO2 down to 55% 10/28: Tmax 99.9. When unprone for chest x-ray this a.m. desaturated. Currently on 90% FiO2. Actually hypertensive. No bowel movements. Remains paralyzed 10/29: Remains intubated sedated on continuous Prone therapy Except for chest x- ray. Fever 100.8. Panculture requested. Zyvox added. Continue IV sedation with propofol and fentanyl and Versed, neuromuscular paralysis with Nimbex 10/30: Prone cycle changed to 8 hr prone, 1 hr supine from 10/29. Due to hypoxia will continue with same cycle today. Chest x-ray remains unchanged. Patient remains severely hypoxemic FiO2 at 75% PEEP at 16. WBC count worsened to 18. Remains neuromuscularly paralyzed. 10/31: Patient remains critically ill but stable. Oxygen saturation 95% on 55 of FiO2 and PEEP of 16. Reduce PEEP to 14, FiO2 to 50% and start weaning Flolan. Increase supine time to 4 hours, reduce Prone time to 6 hours 11/01: Patient remains intubated sedated critically ill on neuromuscular paralysis. FiO2 reduced to 50, I will attempt PEEP wean gradually to 12 today. Prone/supine cycles will be changed to 6 hours each 11/02: FiO2 remains at 50%, PEEP reduced from 14 to 12 today, TV increased to 600 and RR to 20, in anticipation of discontinuing prone therapy, which will be DCd today. Off Flolan for 2 days 11/03: off pronation. fio2 up to 65% , peep 12. agitation causing desaturation. minimal improvements. 11/04: good diuresis yesterday, but despite that, fio2 persists at 65% and spo2 decreasing to 91% today. no real improvements and some worsening of pulmonary function despite ongoing aggressive therapies. still not safe for SBT given hypoxia. also severely hypertensive this morning. 11/05: continues to diurese well and Cr still at baseline. fio2 at 90% however, and no clinical improvements in mental status or hypoxia. still unsafe for SBT given hypoxemia. off pathway. hypertension under much better control. poor neuro status is concerning. 11/06: Remains severely hypoxemic. FiO2 was 100% PEEP 14. I reduce FiO2 to 90% after increasing PEEP to 16. Developed a flutter with RVR overnight, currently on Cardizem drip. Unable to do SBT due to very high settings Objective Vital Signs Date Time Temp Pulse Resp B/P (MAP) Pulse Ox O2 Delivery O2 Flow Rate FiO2 11/06/16 08:33 95 100 11/06/16 08:00 127 11/06/16 08:00 18 96/62 (73) 11/06/16 00:00 99.6 Intake and Output 11/06/16 11/06/16 11/07/16 08:00 16:00 00:00 Intake Total 3681 ml Output Total 3275 ml Balance 406 ml Result Diagram: 11/06/16 0405 11/06/16 0405 Imaging Last Impressions Chest X-Ray 10/28/16 0600 Signed Impressions: Service Date/Time: Friday, October 28, 2016 04:10 - CONCLUSION: 1. Cardiomegaly with minimal basilar atelectasis. Support apparatus in satisfactory position. Cristofer De Santiago MD Head CT 10/25/16 0000 Signed Impressions: Service Date/Time: September 06:08 - CONCLUSION: 1. No acute intracranial abnormalities. Cristofer De Santiago MD Carotid Artery Ultrasound 10/25/16 0000 Signed Impressions: Service Date/Time: September 08:27 - CONCLUSION: Mild to moderate plaque in both carotid systems with less than 40%% diameter stenosis by velocity criteria. Jhonathan Dietz MD CT Angiography 10/25/16 0000 Signed Impressions: Service Date/Time: September 06:12 - CONCLUSION: 1. Negative for pulmonary embolism. 2. There is a fairly large area of masslike consolidation in the medial right lung involving posterior segment right upper lobe and medial aspect of right lower lobe. There is associated right hilar and mediastinal adenopathy measuring up to 2.1 cm. Differential diagnosis includes pneumonia or underlying lung neoplasm. Close followup imaging recommended after treatment for pneumonia, to assess for underlying mass. Cristofer De Santiago MD Abdomen X-Ray 10/25/16 0000 Signed Impressions: Service Date/Time: September 16:58 - CONCLUSION: Dobbhoff feeding tube with the tip projected over the left mainstem bronchus. Jhonathan Dietz MD Objective Remarks Infusions: Fentanyl Propofol Cardizem GENERAL: 55-year-old male, sedated for ventilator synchrony due to severe hypoxia SKIN: Warm and dry. HEAD: Normocephalic. EYES: No scleral icterus. ENT: Orotracheally intubated NECK: Limited due to morbid obesity CARDIOVASCULAR: Atrial flutter with RVR 2-1 block. RESPIRATORY: Distant breath sounds. Bilateral scattered coarse rhonchi and coarse crackles anterior lung graves GASTROINTESTINAL: Abdomen soft, obese MUSCULOSKELETAL: Nonpitting bilateral lower extremity edema. NEURO EXAM: RASS -3. w/d x 4. does not follow commands. A/P Assessment and Plan Assessment: morbidly obese male with Severe ARDS, hypoxic respiratory failure, not improving, persistently hypoxic and not stable for SBT trials yet. off pathway. if we withdraw or even lessen full mechanical support, he would . remains critically ill. Likely will require tracheostomy and longer-term ventilation, but not stable for trach. Neuro/Psych: Syncope Neuromuscular paralysis for ARDS/Prone therapy Agitated Delirium Metabolic Encephalopathy Patient is currently on propofol/fentanyl Goal of RASS -2 Seroquel 100mg po q8h oxycodone 10mg po q4h scheduled prn Dilaudid for breakthrough wean prop/fent for goal RASS -2 once O2 requirement has come down breakthrough Haldol 5mg iv q4h prn for agitation. Head CT on admission revealed no acute intracranial findings, CT head 11/05- no acute findings. opacification of sinuses. Carotid ultrasound less than 50% stenosis bilaterally CV: New onset atrial flutter with RVR Fluid overload Hypertension- better controlled today. On Cardizem infusion for a flutter with RVR, if lasting more than 24-48 hours start anticoagulation Continue bumex 1mg iv q8h. Diamox 500 mg IV q8h x 3 doses repeat dose. Achieving negative balance Home medications include amlodipine 5 mg daily and lisinopril Continue hydralazine 25 mg 3 times a day and Isordil 10 mg 3 times a day for hypertension Discontinued Lisinopril 20 mg daily due to acute hyperkalemia propranolol 40mg po q8hr amlodipine to 10mg daily Resp: Acute hypoxemic Respiratory failure - severe and persistent. Severe ARDS COPD exacerbation Pneumonia most likely community-acquired Obesity hypoventilation syndrome Tobacco use disorder CT pulmonary angio revealed no pulmonary embolus. Masslike consolidation in the posterior right upper lobe and medial right lower lobe. Small pleural effusion. Lymphadenopathy to 1 cm right hilum and subcarinal. Atelectasis left lower lobe. PRVC 20/600/1.0/14/100. Titrate FiO2 to keep Saturation >88-90%. Increase PEEP to 16 Discontinued Prone therapy 11/02/16. Ventilator bundle, Albuterol/ipratropium every 4 hours with albuterol every 2 hours when necessary dyspnea Budesonide 0.5 mg aerosols twice a day Solu-Medrol 40 mg q12 Pulmonary/Dr. Wynne following GI: Morbid Obesity Vital high protein 1.5 trickle feeds Goal is 65 cc an hour per nutrition's notes Famotidine 20 milligrams IV twice a day for GI prophylaxis Docusate sodium 100 mg twice a day, senna 8.6 mg twice a day, polyethylene glycol 3350 17 g twice a day and lactulose 30 cc 4 times a day for bowel regimen KUB nonspecific bowel pattern Having BM : Maintain Santiago catheter during aggressive diuresis. Endo: Hyperglycemia- poorly controlled. SSI to q4h, high dose. Levemir to 30 BID. Renal: Monitor urine output Accurate I's and O's Diurese as above Heme: Leukocytosis Monitor CBC daily, trending up ID: Severe sepsis Pneumonia Continue Rocephin 2 g IV every 24 hours ffor Enterobacter pneumonia. Repeat sputum culture f/u Repeat Blood sputum and urine culture from 10/29/16-Enterobacter in sputum Blood cultures 2, sputum no growth to date. Urine Legionella and pneumococcal antigens negative and influenza negative FEN: Hyperkalemia Hyper-magnesium s/p Calcium gluconate, insulin/D50/bicarbonate/Kayexalate and albuterol aerosols 1. Monitor potassium levels Replacing electrolyte as clinically indicated Access -Right IJ CVL placed 10/25. Right radial arterial line placed 10/25-DC Art line , replaced art line 11/04 - does not need CVL at this time, but given gross volume overload and obesity may need secure access. Prophylaxis - GI -famotidine - DVT - SCD/enoxaparin Critical Care: The total critical care time was 38 minutes. Time to perform other separately billable procedures was not included in the critical care time. Patient remains critically ill with severe hypoxemic respiratory failure ARDS and pneumonia., severe Sepsis. Requiring very high ventilator settings to maintain his oxygen saturation. Agitated delirium and encephalopathy complicating multi-organ system dysfunction and preventing further improvements. rising fio2 overnight and clinically slightly worse Roro Tyler MD Nov 06, 2016 10:15
[2016-11-06 10:22] LABS: BLOOD GAS BASE EXCESS 1.3 mmol/L (-2-2); BLOOD GAS CARBOXYHEMOGLOBIN 0.9 % (0-4); BLOOD GAS HCO3 26 mmol/L (22-26); BLOOD GAS O2 HGB SATURATION 93 % (90-100); BLOOD GAS OXYGEN CONTENT 19.6 Vol % (12.0-20.0); BLOOD GAS PCO2 43 mmHg (38-42); BLOOD GAS PO2 77 mmHg (61-120); BLOOD GAS TOTAL HGB 14.9 G/DL (12.0-16.0); CRITICAL VALUE NO; OXYGEN DEVICE VENT; TEMP CORR TO 98.6
[2016-11-06 10:23] LABS: DRAW SITE ALINE; FIO2 85 %; STAT YES; VENT SETTINGS 18/600/16PEEP
--- NOTE | 2016-11-06 11:54 | RADRPT ---
EXAM DATE/TIME: 11/06/2016 11:24 [facility] COMPARISON: No previous studies available for comparison. INDICATIONS : Evaluate infiltrates RADIATION DOSE: 9.93 CTDIvol (mGy) MEDICAL HISTORY : Hypertension. Chronic obstructive pulmonary disease. SURGICAL HISTORY : None. ENCOUNTER: Initial ACUITY: 1 day PAIN SCALE: Non-responsive LOCATION: chest TECHNIQUE: Volumetric scanning of the chest was performed. Using automated exposure control and adjustment of t he mA and/or kV according to patient size, radiation dose was kept as low as reasonably achievable to obtain optimal diagnostic quality images. DICOM format image data is available electronically for r eview and comparison. Follow-up recommendations for detected pulmonary nodules are based at a minimum on nodule size and pa tient risk factors according to Fleischner Society Guidelines. FINDINGS: LUNGS: Dense bilateral posterior lower lobe consolidation. Linear parenchymal consolidation in the right mid dle lobe. PLEURAE: Trace left and small right pleural effusions. MEDIASTINUM: Prominent coronary artery calcifications. Heart is grossly unremarkable without significant pericardi al effusion. No gross mediastinal adenopathy. AXILLAE: Within normal limits. No lymphadenopathy. MUSCULOSKELETAL: Within normal limits for patient age. MISCELLANEOUS: Patient is intubated with ETT in good position. There is an NGT in the stomach. There is a right IJ c entral line terminating near the atriocaval junction. Visualized upper abdomen is grossly unremarkabl e. CONCLUSION: 1. Dense bilateral posterior lower lobe airspace consolidation consistent with aspiration versus less likely pneumonia. 2. Linear consolidation in the right middle lobe consistent with atelectasis versus aspiration. 3. Trace left and small right pleural effusions. 4. Support lines and tubes in good position. 5. Prominent coronary artery calcifications. Nico Vaughan MD on November 06, 2016 at 11:47 Board Certified Radiologist. This report was verified electronically.
[2016-11-06] MEDS: cefTRIAXone INJ 2,000 MG in SODIUM CHLORIDE 0.9% INJ 100 ML IV SCH (12:23)
[2016-11-06] MEDS: fentaNYL DRIP 250 ML IV PRN ×3 (13:03→22:47)
--- NOTE | 2016-11-06 13:48 | EKG ---
Date Performed: 11/06/2016 Time Performed: 03:40:52 PTAGE: 55 years EKG: Atrial flutter with rapid ventricular response with 2:1 A-V block. Extensive ST-T changes m ay be due to myocardial ischemia Abnormal ECG PREVIOUS TRACING 10/25/16 Since the prior tracing, the atrial flutter with rapid ventricular re sponse and the extensive nonspecific ST-T wave changes are new. Clinical correlation will be adriel kaufman DOCTOR: Jayashree Leavitt Interpretating Date/Time 11/06/2016 13:46:56
[2016-11-06 15:51] LABS: MAGNESIUM 2.3 MG/DL (1.5-2.5); POTASSIUM 3.6 MEQ/L (3.5-5.1)
[2016-11-07] VITALS (19 sets, daily range): BP systolic 114–133; BP diastolic 63–75; PULSE 83–107; RESP 18; TEMP 99.3–100; O2SAT 88–96
[2016-11-07] MEDS: INSULIN DETEMIR 100 UNITS/ML VIAL SQ SCH ×2 (00:53→11:32)
[2016-11-07] MEDS: LINEZOLID 600 MG PREMIX 300 ML IV SCH ×2 (00:54→12:43)
[2016-11-07] MEDS: PROPOFOL 1000 MG/100 ML IV PRN ×8 (02:09→23:19)
[2016-11-07] MEDS: RESP: ALBUTEROL 2.5 MG/IPRATROPIUM 0.5 MG NEB (SCH) NEB ×4 (03:19→19:41)
[2016-11-07] MEDS: oxyCODONE HCL ORAL CONC 20 MG/ML SYRINGE PO SCH ×6 (03:37→23:19)
[2016-11-07] MEDS: BUMETANIDE INJ 1 MG/4 ML VIAL IV PUSH SCH ×3 (03:38→20:48)
[2016-11-07] MEDS: INSULIN NovoLIN REGULAR SUPPLEMENTAL SCALE SQ SCH ×6 (03:38→20:51)
[2016-11-07] MEDS: CHLORHEXIDINE GLUCONATE 2 % 1 PACK (2 CLOTHS) TOP SCH (03:53)
[2016-11-07 04:08] LABS: AUTOMATED NEUTROPHIL # 14.4 TH/MM3 (1.8-7.7); BASOPHIL # 0.1 TH/MM3 (0-0.2); BASOPHIL % 0.7 % (0.0-2.0); HEMATOCRIT 45.8 % (39.0-51.0); HEMO FLAGS DIFF FINAL; LYMPH % 3.2 % (9.0-44.0); LYMPHOCYTE # 0.5 TH/MM3 (1.0-4.8); MEAN CELL VOLUME 94.4 FL (80.0-100.0); MEAN CORPUSCULAR HGB CONC 32.9 % (32.0-36.0); MONO % 5.3 % (0.0-8.0); NEUT % 90.8 % (16.0-70.0); PLATELET COUNT 344 TH/MM3 (150-450); RED BLOOD COUNT 4.85 MIL/MM3 (4.50-5.90); RED CELL DISTRIBUTION WIDTH 13.9 % (11.6-17.2); WHITE BLOOD COUNT 15.9 TH/MM3 (4.0-11.0)
[2016-11-07 04:27] LABS: ANION GAP 7 MEQ/L (5-15); BICARBONATE 29.8 MEQ/L (21.0-32.0); BLOOD UREA NITROGEN 40 MG/DL (7-18); CHLORIDE 102 MEQ/L (98-107); GLOMERULAR FILTRATION RATE 140 ML/MIN (>89); MAGNESIUM 2.1 MG/DL (1.5-2.5); POTASSIUM 3.8 MEQ/L (3.5-5.1); SODIUM (NA) 139 MEQ/L (136-145)
[2016-11-07 04:28] LABS: ALT (GPT) 80 U/L (12-78); AST (GOT) 30 U/L (15-37)
[2016-11-07 04:30] LABS: ALKALINE PHOSPHATASE 49 U/L (45-117); TOTAL BILIRUBIN ADULT 0.3 MG/DL (0.2-1.0)
[2016-11-07] MEDS: hydrALAZINE HCL 25 MG TAB PO SCH ×3 (04:50→20:48)
[2016-11-07] MEDS: PROPRANOLOL HCL 40 MG TAB PO SCH ×3 (04:50→20:48)
[2016-11-07] MEDS: ISOSORBIDE DINITRATE 10 MG TAB PO SCH ×3 (04:50→20:49)
[2016-11-07] MEDS: QUEtiapine FUMARATE 100 MG TAB PO SCH ×3 (04:50→20:48)
[2016-11-07] MEDS: cloNIDine HCL 0.3 MG TAB PO SCH ×3 (04:50→20:48)
--- NOTE | 2016-11-07 06:09 | RADRPT ---
EXAM DATE/TIME: 11/07/2016 04:30 [facility] COMPARISON: CHEST SINGLE AP, November 06, 2016, 5:15. INDICATIONS : Shortness of breath. MEDICAL HISTORY : None. SURGICAL HISTORY : None. ENCOUNTER: Subsequent ACUITY: 1 week PAIN SCORE: Non-responsive. LOCATION: Bilateral chest FINDINGS: A single view of the chest demonstrates endotracheal tube in good position. Nasogastric tube enters s tomach. Right PICC line in superior vena cava. Basilar airspace disease and probable small effusions similar to November 06. CONCLUSION: 1. Stable basilar airspace disease and small effusions similar to November 06. Support apparatus unc hanged. Cristofer De Santiago MD on November 07, 2016 at 6:07 Board Certified Radiologist. This report was verified electronically.
[2016-11-07] MEDS: RESP: BUDESONIDE 0.5 MG/2 ML NEB NEB SCH ×2 (07:45→19:41)
[2016-11-07] MEDS: POLYETHYLENE GLYCOL 17 GM PKG NG SCH ×2 (07:59→20:49)
[2016-11-07] MEDS: fentaNYL DRIP 250 ML IV PRN ×2 (08:00→23:20)
[2016-11-07] MEDS: SENNOSIDES SYRUP 8.8 MG/5 ML CUP PEG SCH ×2 (08:00→20:47)
[2016-11-07] MEDS: methylPREDNISolone SOD SUCC 40 MG/1 ML VIAL IV SCH ×2 (08:00→20:48)
[2016-11-07] MEDS: DOCUSATE SODIUM 100 MG/10 ML UDC PO SCH ×2 (08:00→20:47)
[2016-11-07] MEDS: LACTULOSE SYRUP 20 GM/30 ML CUP PO SCH ×4 (08:00→20:56)
[2016-11-07] MEDS: ENOXAPARIN SODIUM 40 MG/0.4 ML SYRINGE SQ SCH ×2 (08:00→20:48)
[2016-11-07] MEDS: FAMOTIDINE 20 MG/2 ML VIAL IV PUSH SCH ×2 (08:00→20:48)
[2016-11-07] MEDS: BENEPROTEIN POWDER 1 PACK G-TUBE SCH ×3 (08:00→17:29)
[2016-11-07] MEDS: ARTIFICIAL TEARS OPTH OINT 3.5 APPLIC/3.5 GM TUBO EACH EYE SCH ×2 (08:02→20:26)
[2016-11-07] MEDS: SODIUM CHLORIDE 0.9% FLUSH 10 ML FLUSH SCH ×2 (08:02→20:26)
[2016-11-07] MEDS: CHLORHEXIDINE 0.12% (ORAL KIT) 15 ML CUP MT SCH ×2 (08:03→20:26)
[2016-11-07] MEDS: SODIUM CHLORIDE 0.9% FLUSH 10 ML FLUSH IVF SCH (08:03)
[2016-11-07] MEDS: SODIUM CHLORIDE 0.9% FLUSH 10 ML FLUSH IV FLUSH SCH (08:03)
[2016-11-07] MEDS: DILTIAZEM INJ 125 MG in SODIUM CHLORIDE 0.9% INJ 100 ML IV PRN ×2 (11:03→23:20)
[2016-11-07] MEDS: cefTRIAXone INJ 2,000 MG in SODIUM CHLORIDE 0.9% INJ 100 ML IV SCH (12:43)
--- NOTE | 2016-11-07 15:23 | HHI.CCPN ---
Subjective Remarks/Hospital Course 55-year-old very pleasant gentleman with past medical history of COPD, and hypertension presents complaining of shortness of breath and nausea, generalized fatigue and chills for 2 days. He thinks it has been from being out in the heat. Denies any fever, chest pain, vomiting, abdominal pain, focal weakness or numbness. In the emergency department his saturation was in mid 80s on arrival with auditory wheezing and tachypnea. He was placed on 4 liters of NC and saturating in the low 90. He does not use oxygen at home. He also mentioned 2 days ago, he came home and was sitting in a chair and was taking his shoes off when he passed out. States he woke up and was still on the chair. This has never happen before. 10/25: Patient intubated secondary to increasing oxygen requirements, altered mental status. Discussed with son. Somewhat hypertensive post intubation. 10/26: Placed on rotaprone bed last evening. Flolan initiated. Saturations improved. Afebrile. Remains on Nimbex drip. 10/27: T max 99.7. Tolerated on not prone position 2 hours yesterday. Tolerating trickle feeds. FiO2 down to 55% 10/28: Tmax 99.9. When unprone for chest x-ray this a.m. desaturated. Currently on 90% FiO2. Actually hypertensive. No bowel movements. Remains paralyzed 10/29: Remains intubated sedated on continuous Prone therapy Except for chest x- ray. Fever 100.8. Panculture requested. Zyvox added. Continue IV sedation with propofol and fentanyl and Versed, neuromuscular paralysis with Nimbex 10/30: Prone cycle changed to 8 hr prone, 1 hr supine from 10/29. Due to hypoxia will continue with same cycle today. Chest x-ray remains unchanged. Patient remains severely hypoxemic FiO2 at 75% PEEP at 16. WBC count worsened to 18. Remains neuromuscularly paralyzed. 10/31: Patient remains critically ill but stable. Oxygen saturation 95% on 55 of FiO2 and PEEP of 16. Reduce PEEP to 14, FiO2 to 50% and start weaning Flolan. Increase supine time to 4 hours, reduce Prone time to 6 hours 11/01: Patient remains intubated sedated critically ill on neuromuscular paralysis. FiO2 reduced to 50, I will attempt PEEP wean gradually to 12 today. Prone/supine cycles will be changed to 6 hours each 11/02: FiO2 remains at 50%, PEEP reduced from 14 to 12 today, TV increased to 600 and RR to 20, in anticipation of discontinuing prone therapy, which will be DCd today. Off Flolan for 2 days 11/03: off pronation. fio2 up to 65% , peep 12. agitation causing desaturation. minimal improvements. 11/04: good diuresis yesterday, but despite that, fio2 persists at 65% and spo2 decreasing to 91% today. no real improvements and some worsening of pulmonary function despite ongoing aggressive therapies. still not safe for SBT given hypoxia. also severely hypertensive this morning. 11/05: continues to diurese well and Cr still at baseline. fio2 at 90% however, and no clinical improvements in mental status or hypoxia. still unsafe for SBT given hypoxemia. off pathway. hypertension under much better control. poor neuro status is concerning. 11/06: Remains severely hypoxemic. FiO2 was 100% PEEP 14. I reduce FiO2 to 90% after increasing PEEP to 16. Developed a flutter with RVR overnight, currently on Cardizem drip. Unable to do SBT due to very high settings 11/07: Remains hypoxemic and but able to wean FiO2 down to 80% with PEEP of 16. Remains unresponsive on sedation. Unable to trach due to his high vent settings and high FiO2. Remains on Cardizem and 15 mg per hour, with rate controlled a flutter. We'll start by mouth Cardizem in an attempt to wean IV Cardizem Objective Vital Signs Date Time Temp Pulse Resp B/P (MAP) Pulse Ox O2 Delivery O2 Flow Rate FiO2 11/07/16 14:00 107 11/07/16 13:11 92 80 11/07/16 12:00 100.0 18 128/75 (92) 123/68 (86) Intake and Output 11/07/16 11/07/16 11/08/16 08:00 16:00 00:00 Intake Total 1210 ml 100 ml Output Total 1900 ml Balance -690 ml 100 ml Result Diagram: 11/07/16 0330 11/07/16 0330 Imaging Last Impressions Chest X-Ray 10/28/16 0600 Signed Impressions: Service Date/Time: Friday, October 28, 2016 04:10 - CONCLUSION: 1. Cardiomegaly with minimal basilar atelectasis. Support apparatus in satisfactory position. Cristofer De Santiago MD Head CT 10/25/16 0000 Signed Impressions: Service Date/Time: September 06:08 - CONCLUSION: 1. No acute intracranial abnormalities. Cristofer De Santiago MD Carotid Artery Ultrasound 10/25/16 Signed Impressions: Service Date/Time: September 08:27 - CONCLUSION: Mild to moderate plaque in both carotid systems with less than 40%% diameter stenosis by velocity criteria. Jhonathan Dietz MD CT Angiography 10/25/16 0000 Signed Impressions: Service Date/Time: September 06:12 - CONCLUSION: 1. Negative for pulmonary embolism. 2. There is a fairly large area of masslike consolidation in the medial right lung involving posterior segment right upper lobe and medial aspect of right lower lobe. There is associated right hilar and mediastinal adenopathy measuring up to 2.1 cm. Differential diagnosis includes pneumonia or underlying lung neoplasm. Close followup imaging recommended after treatment for pneumonia, to assess for underlying mass. Cristofer De Santiago MD Abdomen X-Ray 10/25/16 Signed Impressions: Service Date/Time: September 16:58 - CONCLUSION: Dobbhoff feeding tube with the tip projected over the left mainstem bronchus. Jhonathan Dietz MD Objective Remarks Infusions: Fentanyl Propofol Cardizem GENERAL: 55-year-old male, heavily sedated for ventilator synchrony due to severe hypoxia SKIN: Warm and dry. HEAD: Normocephalic. EYES: No scleral icterus. ENT: Orotracheally intubated NECK: Limited due to morbid obesity CARDIOVASCULAR: Atrial flutter with RVR RESPIRATORY: Distant breath sounds. Bilateral scattered coarse rhonchi and coarse crackles anterior lung graves GASTROINTESTINAL: Abdomen soft, obese MUSCULOSKELETAL: Nonpitting bilateral lower extremity edema. NEURO EXAM: RASS -3. w/d x 4. does not follow commands. A/P Assessment and Plan Assessment: morbidly obese male with Severe hypoxic respiratory failure, multilobar pneumonia, not improving, persistently hypoxic and not stable for SBT trials yet. off pathway. if we withdraw or even lessen full mechanical support, he would . remains critically ill. Likely will require tracheostomy and longer-term ventilation, but not stable for trach. Neuro/Psych: Syncope s/p Neuromuscular paralysis for Prone therapy Agitated Delirium Metabolic Encephalopathy Patient is currently on propofol/fentanyl Goal of RASS -2 Seroquel 100mg po q8h oxycodone 10mg po q4h scheduled prn Dilaudid for breakthrough wean prop/fent for goal RASS -2 once O2 requirement has come down Haldol 5mg iv q4h prn for agitation. Head CT on admission revealed no acute intracranial findings, CT head 11/05- no acute findings. opacification of sinuses. Carotid ultrasound less than 50% stenosis bilaterally CV: New onset atrial flutter with RVR Fluid overload Hypertension- better controlled today. On Cardizem infusion for a flutter with RVR, consider anticoagulation if persistent >48 hours Start PO Cardizem 60 mg PO q6hr Continue bumex 1mg iv q8h. Diamox 500 mg IV q8h x 3 doses repeat dose given Achieving negative balance Home medications include amlodipine 5 mg daily and lisinopril Continue hydralazine 25 mg 3 times a day and Isordil 10 mg 3 times a day for hypertension Discontinued Lisinopril 20 mg daily due to acute hyperkalemia propranolol 40mg po q8hr amlodipine to 10mg daily-DC 11/07 and start Cardizem Resp: Acute hypoxemic Respiratory failure - severe and persistent. Severe ARDS COPD exacerbation Pneumonia most likely community-acquired Obesity hypoventilation syndrome Tobacco use disorder CT pulmonary angio revealed no pulmonary embolus. Masslike consolidation in the posterior right upper lobe and medial right lower lobe. Lymphadenopathy to 1 cm right hilum and subcarinal. Atelectasis left lower lobe. PRVC 20/700/1.1. Titrate FiO2 to keep Saturation >88%. Discontinued Prone therapy 11/02/16. Ventilator bundle, Albuterol/ipratropium every 4 hours with albuterol every 2 hours when necessary dyspnea Budesonide 0.5 mg aerosols twice a day Solu-Medrol 40 mg q12 Pulmonary/Dr. Wynne following GI: Morbid Obesity Vital high protein 1.5 trickle feeds Goal is 65 cc an hour per nutrition's notes Famotidine 20 milligrams IV twice a day for GI prophylaxis Docusate sodium 100 mg twice a day, senna 8.6 mg twice a day, polyethylene glycol 3350 17 g twice a day and lactulose 30 cc 4 times a day for bowel regimen KUB nonspecific bowel pattern Having BM : Maintain Santiago catheter during aggressive diuresis. Endo: Hyperglycemia- poorly controlled. SSI to q4h, high dose. Levemir to 30 BID. Renal: Monitor urine output Accurate I's and O's Diurese as above Heme: Leukocytosis Monitor CBC daily, trending up ID: Severe sepsis Pneumonia Continue Rocephin 2 g IV every 24 hours for Enterobacter pneumonia. Repeat sputum culture-GNR f/u Repeat Blood sputum and urine culture from 10/29/16-Enterobacter in sputum Blood cultures 2, sputum no growth to date. Urine Legionella and pneumococcal antigens negative and influenza negative FEN: Hyperkalemia Hyper-magnesium s/p Calcium gluconate, insulin/D50/bicarbonate/Kayexalate and albuterol aerosols 1. Monitor potassium levels Replacing electrolyte as clinically indicated Access -Right IJ CVL placed 10/25. Right radial arterial line placed 10/25-DC Art line 9 /8, replaced art line 9/10 - does not need CVL at this time, but given gross volume overload and obesity may need secure access. Prophylaxis - GI -famotidine - DVT - SCD/enoxaparin Critical Care: The total critical care time was 35 minutes. Time to perform other separately billable procedures was not included in the critical care time. Patient remains critically ill with severe hypoxemic respiratory failure ARDS and pneumonia., severe Sepsis. Requiring very high ventilator settings to maintain his oxygen saturation. Agitated delirium and encephalopathy complicating multi-organ system dysfunction and preventing further improvements. rising fio2 overnight and clinically slightly worse Roro Tyler MD Nov 07, 2016 15:23
[2016-11-07] MEDS: DILTIAZEM HCL 60 MG TAB PO SCH ×2 (17:22→23:24)
--- NOTE | 2016-11-07 22:04 | EKG ---
Date Performed: 11/06/2016 Time Performed: 09:15:02 PTAGE: 55 years EKG: Atrial flutter with rapid ventricular response and variable block Inferior/lateral ST-T jalil nges Abnormal ECG Compared to the PREVIOUS TRACING rate slower DOCTOR: Jg Ni Interpretating Date/Time 11/07/2016 22:02:59
[2016-11-08] VITALS (18 sets, daily range): BP systolic 101–141; BP diastolic 62–83; PULSE 85–116; RESP 18–19; TEMP 100.4–103.2; O2SAT 84–95
[2016-11-08] MEDS: INSULIN DETEMIR 100 UNITS/ML VIAL SQ SCH ×2 (01:00→13:00)
[2016-11-08] MEDS: INSULIN NovoLIN REGULAR SUPPLEMENTAL SCALE SQ SCH ×6 (01:40→20:46)
[2016-11-08] MEDS: LINEZOLID 600 MG PREMIX 300 ML IV SCH ×2 (01:53→12:50)
[2016-11-08] MEDS: PROPOFOL 1000 MG/100 ML IV PRN ×7 (02:12→23:50)
[2016-11-08] MEDS: oxyCODONE HCL ORAL CONC 20 MG/ML SYRINGE PO SCH ×2 (02:12→06:35)
[2016-11-08] MEDS: ACETAMINOPHEN 325 MG TAB PO PRN ×3 (02:39→16:21)
[2016-11-08] MEDS: RESP: ALBUTEROL 2.5 MG/IPRATROPIUM 0.5 MG NEB (SCH) NEB ×4 (02:58→20:19)
[2016-11-08 05:13] LABS: MEAN CELL VOLUME 94.4 FL (80.0-100.0); MEAN CORPUSCULAR HEMOGLOBIN 30.8 PG (27.0-34.0); MEAN CORPUSCULAR HGB CONC 32.6 % (32.0-36.0); PLATELET COUNT 312 TH/MM3 (150-450); RED BLOOD COUNT 4.77 MIL/MM3 (4.50-5.90); RED CELL DISTRIBUTION WIDTH 13.7 % (11.6-17.2); REVIEW FLAG FINAL; WHITE BLOOD COUNT 16.3 TH/MM3 (4.0-11.0)
[2016-11-08] MEDS: ISOSORBIDE DINITRATE 10 MG TAB PO SCH ×3 (05:37→20:34)
[2016-11-08] MEDS: QUEtiapine FUMARATE 100 MG TAB PO SCH (05:37)
[2016-11-08] MEDS: cloNIDine HCL 0.3 MG TAB PO SCH ×3 (05:37→20:34)
[2016-11-08] MEDS: PROPRANOLOL HCL 40 MG TAB PO SCH ×3 (05:37→20:46)
[2016-11-08] MEDS: DILTIAZEM HCL 60 MG TAB PO SCH ×3 (05:37→17:47)
[2016-11-08] MEDS: hydrALAZINE HCL 25 MG TAB PO SCH ×3 (05:37→20:34)
[2016-11-08] MEDS: BUMETANIDE INJ 1 MG/4 ML VIAL IV PUSH SCH ×2 (05:38→12:24)
[2016-11-08] MEDS: CHLORHEXIDINE GLUCONATE 2 % 1 PACK (2 CLOTHS) TOP SCH (05:41)
[2016-11-08 05:46] LABS: BICARBONATE 30.8 MEQ/L (21.0-32.0); POTASSIUM 3.6 MEQ/L (3.5-5.1)
[2016-11-08] MEDS: RESP: BUDESONIDE 0.5 MG/2 ML NEB NEB SCH ×2 (07:50→20:19)
[2016-11-08] MEDS: CHLORHEXIDINE 0.12% (ORAL KIT) 15 ML CUP MT SCH ×2 (08:30→20:33)
[2016-11-08] MEDS: SODIUM CHLORIDE 0.9% FLUSH 10 ML FLUSH SCH ×2 (08:32→20:33)
[2016-11-08] MEDS: ARTIFICIAL TEARS OPTH OINT 3.5 APPLIC/3.5 GM TUBO EACH EYE SCH ×2 (08:33→20:33)
[2016-11-08] MEDS: methylPREDNISolone SOD SUCC 40 MG/1 ML VIAL IV SCH ×2 (08:33→20:33)
[2016-11-08] MEDS: POLYETHYLENE GLYCOL 17 GM PKG NG SCH ×2 (08:35→20:34)
[2016-11-08] MEDS: FAMOTIDINE 20 MG/2 ML VIAL IV PUSH SCH ×2 (08:35→20:34)
[2016-11-08] MEDS: SENNOSIDES SYRUP 8.8 MG/5 ML CUP PEG SCH ×2 (08:35→20:34)
[2016-11-08] MEDS: LACTULOSE SYRUP 20 GM/30 ML CUP PO SCH ×4 (08:36→20:35)
[2016-11-08] MEDS: ENOXAPARIN SODIUM 40 MG/0.4 ML SYRINGE SQ SCH (08:36)
[2016-11-08] MEDS: DOCUSATE SODIUM 100 MG/10 ML UDC PO SCH ×2 (08:36→20:35)
[2016-11-08] MEDS: BENEPROTEIN POWDER 1 PACK G-TUBE SCH ×3 (08:37→18:00)
[2016-11-08] MEDS: SODIUM CHLORIDE 0.9% FLUSH 10 ML FLUSH IVF SCH (09:00)
[2016-11-08] MEDS: SODIUM CHLORIDE 0.9% FLUSH 10 ML FLUSH IV FLUSH SCH (09:00)
--- NOTE | 2016-11-08 10:28 | HHI.CCPN ---
Subjective Remarks/Hospital Course 55-year-old very pleasant gentleman with past medical history of COPD, and hypertension presents complaining of shortness of breath and nausea, generalized fatigue and chills for 2 days. He thinks it has been from being out in the heat. Denies any fever, chest pain, vomiting, abdominal pain, focal weakness or numbness. In the emergency department his saturation was in mid 80s on arrival with auditory wheezing and tachypnea. He was placed on 4 liters of NC and saturating in the low 90. He does not use oxygen at home. He also mentioned 2 days ago, he came home and was sitting in a chair and was taking his shoes off when he passed out. States he woke up and was still on the chair. This has never happen before. 10/25: Patient intubated secondary to increasing oxygen requirements, altered mental status. Discussed with son. Somewhat hypertensive post intubation. 10/26: Placed on rotaprone bed last evening. Flolan initiated. Saturations improved. Afebrile. Remains on Nimbex drip. 10/27: T max 99.7. Tolerated on not prone position 2 hours yesterday. Tolerating trickle feeds. FiO2 down to 55% 10/28: Tmax 99.9. When unprone for chest x-ray this a.m. desaturated. Currently on 90% FiO2. Actually hypertensive. No bowel movements. Remains paralyzed 10/29: Remains intubated sedated on continuous Prone therapy Except for chest x- ray. Fever 100.8. Panculture requested. Zyvox added. Continue IV sedation with propofol and fentanyl and Versed, neuromuscular paralysis with Nimbex 10/30: Prone cycle changed to 8 hr prone, 1 hr supine from 10/29. Due to hypoxia will continue with same cycle today. Chest x-ray remains unchanged. Patient remains severely hypoxemic FiO2 at 75% PEEP at 16. WBC count worsened to 18. Remains neuromuscularly paralyzed. 10/31: Patient remains critically ill but stable. Oxygen saturation 95% on 55 of FiO2 and PEEP of 16. Reduce PEEP to 14, FiO2 to 50% and start weaning Flolan. Increase supine time to 4 hours, reduce Prone time to 6 hours 11/01: Patient remains intubated sedated critically ill on neuromuscular paralysis. FiO2 reduced to 50, I will attempt PEEP wean gradually to 12 today. Prone/supine cycles will be changed to 6 hours each 11/02: FiO2 remains at 50%, PEEP reduced from 14 to 12 today, TV increased to 600 and RR to 20, in anticipation of discontinuing prone therapy, which will be DCd today. Off Flolan for 2 days 11/03: off pronation. fio2 up to 65% , peep 12. agitation causing desaturation. minimal improvements. 11/04: good diuresis yesterday, but despite that, fio2 persists at 65% and spo2 decreasing to 91% today. no real improvements and some worsening of pulmonary function despite ongoing aggressive therapies. still not safe for SBT given hypoxia. also severely hypertensive this morning. 11/05: continues to diurese well and Cr still at baseline. fio2 at 90% however, and no clinical improvements in mental status or hypoxia. still unsafe for SBT given hypoxemia. off pathway. hypertension under much better control. poor neuro status is concerning. 11/06: Remains severely hypoxemic. FiO2 was 100% PEEP 14. I reduce FiO2 to 90% after increasing PEEP to 16. Developed a flutter with RVR overnight, currently on Cardizem drip. Unable to do SBT due to very high settings 11/07: Remains hypoxemic and but able to wean FiO2 down to 80% with PEEP of 16. Remains unresponsive on sedation. Unable to trach due to his high vent settings and high FiO2. Remains on Cardizem and 15 mg per hour, with rate controlled a flutter. We'll start by mouth Cardizem in an attempt to wean IV Cardizem 11/08: Remains critically ill hypoxic but FiO2 now weaned to 60%, PEEP remains at 16. Very heavily sedated no withdrawal to pain. Will hold all continuos sedation. Sputum culture with Klebsiella sensitive to Rocephin. A flutter persistent, will start IV heparin Objective Vital Signs Date Time Temp Pulse Resp B/P (MAP) Pulse Ox O2 Delivery O2 Flow Rate FiO2 11/08/16 07:50 94 60 11/08/16 06:00 90 11/08/16 04:00 101.0 18 115/62 (79) 118/72 (87) Intake and Output 11/08/16 11/08/16 11/09/16 08:00 16:00 00:00 Intake Total 1262 ml Output Total 1900 ml Balance -638 ml Result Diagram: 11/08/16 0500 11/08/16 0500 Other Results Microbiology Date/Time Source Procedure Growth Status 11/06/16 17:00 Sputum Endotracheal Gram Stain - Final Complete 11/06/16 17:00 Sputum Culture - Final Klebsiella Pneumoniae Complete Imaging Last Impressions Chest X-Ray 10/28/16 0600 Signed Impressions: Service Date/Time: Friday, October 28, 2016 04:10 - CONCLUSION: 1. Cardiomegaly with minimal basilar atelectasis. Support apparatus in satisfactory position. Cristofer De Santiago MD Head CT 10/25/16 0000 Signed Impressions: Service Date/Time: September 06:08 - CONCLUSION: 1. No acute intracranial abnormalities. Cristofer De Santiago MD Carotid Artery Ultrasound 10/25/16 0000 Signed Impressions: Service Date/Time: , October 25, 2016 08:27 - CONCLUSION: Mild to moderate plaque in both carotid systems with less than 40%% diameter stenosis by velocity criteria. Jhonathan Dietz MD CT Angiography 10/25/16 0000 Signed Impressions: Service Date/Time: September 06:12 - CONCLUSION: 1. Negative for pulmonary embolism. 2. There is a fairly large area of masslike consolidation in the medial right lung involving posterior segment right upper lobe and medial aspect of right lower lobe. There is associated right hilar and mediastinal adenopathy measuring up to 2.1 cm. Differential diagnosis includes pneumonia or underlying lung neoplasm. Close followup imaging recommended after treatment for pneumonia, to assess for underlying mass. Cristofer De Santiago MD Abdomen X-Ray 10/25/16 0000 Signed Impressions: Service Date/Time: September 16:58 - CONCLUSION: Dobbhoff feeding tube with the tip projected over the left mainstem bronchus. Jhonathan Dietz MD Objective Remarks Infusions: Fentanyl -hold 11/08 Propofol -hold 11/08 Cardizem GENERAL: 55-year-old male, heavily sedated for ventilator synchrony due to severe hypoxia SKIN: Warm and dry. HEAD: Normocephalic. EYES: No scleral icterus. ENT: Orotracheally intubated NECK: Limited due to morbid obesity CARDIOVASCULAR: Atrial flutter with controlled rate. RESPIRATORY: Distant breath sounds. Bilateral scattered coarse rhonchi and coarse crackles anterior lung graves GASTROINTESTINAL: Abdomen soft, obese. No organomegaly by limited exam MUSCULOSKELETAL: Nonpitting bilateral lower extremity edema. NEURO EXAM: RASS -3. w/d x 4, but very weakly. does not follow commands. A/P Assessment and Plan Assessment: morbidly obese male with Severe hypoxic respiratory failure, multilobar pneumonia, not improving, persistently hypoxic and not stable for SBT trials yet. off pathway. if we withdraw or even lessen full mechanical support, he would . remains critically ill. Likely will require tracheostomy and longer-term ventilation, but not stable for trach. Neuro/Psych: Syncope s/p Neuromuscular paralysis for Prone therapy Agitated Delirium Metabolic Encephalopathy Patient is currently on propofol/fentanyl-hold all continuos sedation, patient is unresponsive DC Seroquel 100mg po q8h, oxycodone 10mg po q4h scheduled prn Dilaudid for breakthrough. Haldol 5mg iv q4h prn for agitation. Head CT on admission revealed no acute intracranial findings, CT head 11/05- no acute findings. opacification of sinuses. Carotid ultrasound less than 50% stenosis bilaterally CV: New onset atrial flutter with RVR Fluid overload Hypertension- better controlled today. On Cardizem infusion for a flutter with RVR PO Cardizem 60 mg PO q6hr Start IV heparin for anticoagulation Reduced Bumex 1mg iv q8h to q12 11/08 s/p Diamox 500 mg IV q8h Home medications include amlodipine 5 mg daily and lisinopril Continue hydralazine 25 mg 3 times a day and Isordil 10 mg 3 times a day for hypertension Discontinued Lisinopril 20 mg daily due to acute hyperkalemia Propranolol 40mg po q8hr Amlodipine to 10mg daily-DCd 11/07 and start Cardizem Resp: Acute hypoxemic Respiratory failure - severe and persistent. Severe ARDS COPD exacerbation Pneumonia most likely community-acquired Obesity hypoventilation syndrome Tobacco use disorder CT pulmonary angio revealed no pulmonary embolus. Masslike consolidation in the posterior right upper lobe and medial right lower lobe. Lymphadenopathy to 1 cm right hilum and subcarinal. Atelectasis left lower lobe. PRVC 20/700/1.2/16/60. Titrate FiO2 to keep Saturation >88%. Will Need trach once PEEP <10, FiO2<50% Discontinued Prone therapy 11/02/16. Ventilator bundle, Albuterol/ipratropium every 4 hours with albuterol every 2 hours when necessary dyspnea Budesonide 0.5 mg aerosols twice a day. Solu-Medrol 40 mg q12 Pulmonary/Dr. Wynne following GI: Morbid Obesity Vital high protein 1.5 trickle feeds Goal is 65 cc an hour per nutrition's notes Famotidine 20 milligrams IV twice a day for GI prophylaxis Docusate sodium 100 mg twice a day, senna 8.6 mg twice a day, polyethylene glycol 3350 17 g twice a day and lactulose 30 cc 4 times a day for bowel regimen Having BM : Maintain Santiago catheter during aggressive diuresis. Endo: Hyperglycemia- poorly controlled. SSI to q4h, high dose. Levemir to 30 q12. Renal: Monitor urine output Accurate I's and O's Diurese as above Heme: Leukocytosis Monitor CBC daily, trending up Solu-Medrol, terbutaline ID: Severe sepsis Pneumonia Continue Rocephin 2 g IV every 24 hours for Enterobacter pneumonia. Repeat sputum Klebsiella sensitive to Rocephin 10/29/16-Enterobacter in sputum, 11/06/16 sputum- Klebsiella Urine Legionella and pneumococcal antigens negative and influenza negative FEN: Hyperkalemia Hyper-magnesium s/p Calcium gluconate, insulin/D50/bicarbonate/Kayexalate and albuterol aerosols 1. Monitor potassium levels Replacing electrolyte as clinically indicated Access - Right IJ CVL placed 10/25. Right radial arterial line placed 10/25-DC Art line 11/02, replaced art line 11/04, will DC today Prophylaxis - GI, famotidine - DVT - SCD/enoxaparin-DC and start IV heparin Critical Care: The total critical care time was 35 minutes. Time to perform other separately billable procedures was not included in the critical care time. Patient remains critically ill with severe hypoxemic respiratory failure ARDS and pneumonia., severe Sepsis. Requiring very high ventilator settings to maintain his oxygen saturation. Agitated delirium and encephalopathy complicating multi-organ system dysfunction and preventing further improvements. rising fio2 overnight and clinically slightly worse Roro Tyler MD Nov 08, 2016 10:28
[2016-11-08] MEDS: LABETALOL HCL 100 MG/20 ML VIAL IV PUSH PRN (10:50)
[2016-11-08] MEDS: DILTIAZEM INJ 125 MG in SODIUM CHLORIDE 0.9% INJ 100 ML IV PRN ×2 (11:10→23:50)
[2016-11-08] MEDS ORDERED: Vancomycin Consult Pharmacy 1 EA OTHER SCH (11:45)
[2016-11-08] MEDS: PIPERACIL-TAZO 4.5 GM PREMIX 100 ML IV SCH ×2 (12:50→17:48)
[2016-11-08] MEDS: cefTRIAXone INJ 2,000 MG in SODIUM CHLORIDE 0.9% INJ 100 ML IV SCH (12:50)
[2016-11-08 12:53] LABS: HEMATOCRIT 47.2 % (39.0-51.0); MEAN CELL VOLUME 94.4 FL (80.0-100.0); MEAN CORPUSCULAR HEMOGLOBIN 30.5 PG (27.0-34.0); MEAN CORPUSCULAR HGB CONC 32.3 % (32.0-36.0); PLATELET COUNT 342 TH/MM3 (150-450); REVIEW FLAG FINAL; WHITE BLOOD COUNT 16.9 TH/MM3 (4.0-11.0)
[2016-11-08 13:12] LABS: APTT (PATIENT) 26.8 SEC (24.3-30.1); PROTHROMBIN TIME - PATIENT 11.4 SEC (9.8-11.6)
[2016-11-08] MEDS ORDERED: VANCOMYCIN INJ 1,250 MG in SODIUM CHLOR 0.9% 250 ML INJ 250 ML IV ONE (14:00)
[2016-11-08] MEDS: HEPARIN-D5W 25,000 U/250 ML 250 ML IV PRN (15:00)
[2016-11-08] MEDS: VANCOMYCIN INJ 2,250 MG in SODIUM CHLORID 0.9% 500 ML INJ 500 ML IV SCH (15:28)
[2016-11-09] VITALS (19 sets, daily range): BP systolic 113–146; BP diastolic 65–99; PULSE 87–137; RESP 18–19; TEMP 100.1–102; O2SAT 87–96
[2016-11-09] MEDS: PIPERACIL-TAZO 4.5 GM PREMIX 100 ML IV SCH ×5 (00:15→23:57)
[2016-11-09] MEDS: INSULIN DETEMIR 100 UNITS/ML VIAL SQ SCH ×2 (01:00→13:00)
[2016-11-09] MEDS: LINEZOLID 600 MG PREMIX 300 ML IV SCH ×2 (02:00→14:14)
[2016-11-09] MEDS: PROPOFOL 1000 MG/100 ML IV PRN ×6 (03:00→22:07)
[2016-11-09] MEDS: RESP: ALBUTEROL 2.5 MG/IPRATROPIUM 0.5 MG NEB (SCH) NEB ×4 (03:10→20:19)
[2016-11-09] MEDS: CHLORHEXIDINE GLUCONATE 2 % 1 PACK (2 CLOTHS) TOP SCH (03:31)
[2016-11-09] MEDS: INSULIN NovoLIN REGULAR SUPPLEMENTAL SCALE SQ SCH ×6 (04:00→23:50)
[2016-11-09] MEDS: cloNIDine HCL 0.3 MG TAB PO SCH ×3 (04:47→21:03)
[2016-11-09] MEDS: PROPRANOLOL HCL 40 MG TAB PO SCH ×3 (04:48→21:03)
[2016-11-09] MEDS: hydrALAZINE HCL 25 MG TAB PO SCH ×3 (04:48→21:03)
[2016-11-09] MEDS: ISOSORBIDE DINITRATE 10 MG TAB PO SCH ×3 (04:48→23:56)
[2016-11-09] MEDS: DILTIAZEM HCL 60 MG TAB PO SCH ×5 (04:48→23:56)
[2016-11-09] MEDS: ACETAMINOPHEN 325 MG TAB PO PRN (05:34)
[2016-11-09 05:51] LABS: HEMATOCRIT 45.6 % (39.0-51.0); MEAN CELL VOLUME 95.6 FL (80.0-100.0); MEAN CORPUSCULAR HEMOGLOBIN 30.5 PG (27.0-34.0); MEAN CORPUSCULAR HGB CONC 31.9 % (32.0-36.0); PLATELET COUNT 281 TH/MM3 (150-450); RED BLOOD COUNT 4.77 MIL/MM3 (4.50-5.90); RED CELL DISTRIBUTION WIDTH 13.9 % (11.6-17.2); REVIEW FLAG FINAL; WHITE BLOOD COUNT 14.8 TH/MM3 (4.0-11.0)
--- NOTE | 2016-11-09 05:51 | RADRPT ---
EXAM DATE/TIME: 11/09/2016 04:08 [facility] COMPARISON: CHEST SINGLE AP, November 07, 2016, 4:30. INDICATIONS : Respiratory failure MEDICAL HISTORY : Chronic obstructive pulmonary disease. Hypertension SURGICAL HISTORY : None. ENCOUNTER: Subsequent ACUITY: 3 weeks PAIN SCORE: Non-responsive. LOCATION: Bilateral chest FINDINGS: A single view of the chest demonstrates the lungs to be symmetrically aerated with improving aeration in both lung bases. On the left, consolidation/effusion has almost completely resolved. There is sti ll some consolidation and a small effusion on the right, however. Right upper extremity PICC line and nasogastric tube are unchanged in position. Endotracheal tube is identified with the tip at the thor acic inlet. CONCLUSION: 1. Significant improvement in aeration in the left lung base with resolving consolidation/effusion. 2. While there is a persistent right basilar consolidation/effusion, this too shows interval improvem ent. 3. Endotracheal tube is somewhat shallow likely thoracic inlet. This can probably be advanced a few c entimeters. Life support tubes are otherwise stable in position. Jorge Jolly MD on November 09, 2016 at 5:47 Board Certified Radiologist. This report was verified electronically.
[2016-11-09 06:03] LABS: ALT (GPT) 108 U/L (12-78); ANION GAP 7 MEQ/L (5-15); AST (GOT) 32 U/L (15-37); BICARBONATE 33.9 MEQ/L (21.0-32.0); BLOOD UREA NITROGEN 47 MG/DL (7-18); CHLORIDE 103 MEQ/L (98-107); GLOMERULAR FILTRATION RATE 87 ML/MIN (>89); POTASSIUM 3.4 MEQ/L (3.5-5.1); SODIUM (NA) 144 MEQ/L (136-145)
[2016-11-09 06:05] LABS: ALKALINE PHOSPHATASE 47 U/L (45-117); TOTAL BILIRUBIN ADULT 0.6 MG/DL (0.2-1.0)
[2016-11-09] MEDS: POTASSIUM CHLOR 40 MEQ PREMIX 100 ML IV PRN (06:16)
[2016-11-09] MEDS: RESP: BUDESONIDE 0.5 MG/2 ML NEB NEB SCH ×2 (08:05→20:19)
--- NOTE | 2016-11-09 08:07 | HHI.CCPN ---
Subjective Remarks/Hospital Course 55-year-old very pleasant gentleman with past medical history of COPD, and hypertension presents complaining of shortness of breath and nausea, generalized fatigue and chills for 2 days. He thinks it has been from being out in the heat. Denies any fever, chest pain, vomiting, abdominal pain, focal weakness or numbness. In the emergency department his saturation was in mid 80s on arrival with auditory wheezing and tachypnea. He was placed on 4 liters of NC and saturating in the low 90. He does not use oxygen at home. He also mentioned 2 days ago, he came home and was sitting in a chair and was taking his shoes off when he passed out. States he woke up and was still on the chair. This has never happen before. 10/25: Patient intubated secondary to increasing oxygen requirements, altered mental status. Discussed with son. Somewhat hypertensive post intubation. 10/26: Placed on rotaprone bed last evening. Flolan initiated. Saturations improved. Afebrile. Remains on Nimbex drip. 10/27: T max 99.7. Tolerated on not prone position 2 hours yesterday. Tolerating trickle feeds. FiO2 down to 55% 10/28: Tmax 99.9. When unprone for chest x-ray this a.m. desaturated. Currently on 90% FiO2. Actually hypertensive. No bowel movements. Remains paralyzed 10/29: Remains intubated sedated on continuous Prone therapy Except for chest x- ray. Fever 100.8. Panculture requested. Zyvox added. Continue IV sedation with propofol and fentanyl and Versed, neuromuscular paralysis with Nimbex 10/30: Prone cycle changed to 8 hr prone, 1 hr supine from 10/29. Due to hypoxia will continue with same cycle today. Chest x-ray remains unchanged. Patient remains severely hypoxemic FiO2 at 75% PEEP at 16. WBC count worsened to 18. Remains neuromuscularly paralyzed. 10/31: Patient remains critically ill but stable. Oxygen saturation 95% on 55 of FiO2 and PEEP of 16. Reduce PEEP to 14, FiO2 to 50% and start weaning Flolan. Increase supine time to 4 hours, reduce Prone time to 6 hours 11/01: Patient remains intubated sedated critically ill on neuromuscular paralysis. FiO2 reduced to 50, I will attempt PEEP wean gradually to 12 today. Prone/supine cycles will be changed to 6 hours each 11/02: FiO2 remains at 50%, PEEP reduced from 14 to 12 today, TV increased to 600 and RR to 20, in anticipation of discontinuing prone therapy, which will be DCd today. Off Flolan for 2 days 11/03: off pronation. fio2 up to 65% , peep 12. agitation causing desaturation. minimal improvements. 11/04: good diuresis yesterday, but despite that, fio2 persists at 65% and spo2 decreasing to 91% today. no real improvements and some worsening of pulmonary function despite ongoing aggressive therapies. still not safe for SBT given hypoxia. also severely hypertensive this morning. 11/05: continues to diurese well and Cr still at baseline. fio2 at 90% however, and no clinical improvements in mental status or hypoxia. still unsafe for SBT given hypoxemia. off pathway. hypertension under much better control. poor neuro status is concerning. 11/06: Remains severely hypoxemic. FiO2 was 100% PEEP 14. I reduce FiO2 to 90% after increasing PEEP to 16. Developed a flutter with RVR overnight, currently on Cardizem drip. Unable to do SBT due to very high settings 11/07: Remains hypoxemic and but able to wean FiO2 down to 80% with PEEP of 16. Remains unresponsive on sedation. Unable to trach due to his high vent settings and high FiO2. Remains on Cardizem and 15 mg per hour, with rate controlled a flutter. We'll start by mouth Cardizem in an attempt to wean IV Cardizem 11/08: Remains critically ill hypoxic but FiO2 now weaned to 60%, PEEP remains at 16. Very heavily sedated no withdrawal to pain. Will hold all continuos sedation. Sputum culture with Klebsiella sensitive to Rocephin. A flutter persistent, will start IV heparin 11/09 Patient is sedated with Diprivan and intubated, On Cardizem drip 15mg/hr for Aflutter. Heparin drip stated yesterday. Objective Vital Signs Date Time Temp Pulse Resp B/P (MAP) Pulse Ox O2 Delivery O2 Flow Rate FiO2 11/09/16 06:00 107 11/09/16 04:28 93 60 11/09/16 04:00 100.2 18 113/65 (81) Intake and Output 11/09/16 11/09/16 11/10/16 08:00 16:00 00:00 Intake Total 1417 ml Output Total 2125 ml Balance -708 ml Result Diagram: 11/09/16 0440 11/09/16 0440 Other Results Laboratory Tests Test 11/08/16 12:18 11/08/16 20:30 11/09/16 04:40 White Blood Count 16.9 TH/MM3 14.8 TH/MM3 Red Blood Count 5.00 MIL/MM3 4.77 MIL/MM3 Hemoglobin 15.2 GM/DL 14.5 GM/DL Hematocrit 47.2 % 45.6 % Mean Corpuscular Volume 94.4 FL 95.6 FL Mean Corpuscular Hemoglobin 30.5 PG 30.5 PG Mean Corpuscular Hemoglobin Concent 32.3 % 31.9 % Red Cell Distribution Width 14.0 % 13.9 % Platelet Count 342 TH/MM3 281 TH/MM3 Mean Platelet Volume 8.6 FL 9.0 FL Prothrombin Time 11.4 SEC Prothromb Time International Ratio 1.0 RATIO Activated Partial Thromboplast Time 26.8 SEC 29.0 SEC Blood Urea Nitrogen 47 MG/DL Creatinine 0.90 MG/DL Random Glucose 326 MG/DL Total Protein 6.1 GM/DL Albumin 2.4 GM/DL Calcium Level 8.1 MG/DL Alkaline Phosphatase 47 U/L Aspartate Amino Transf (AST/SGOT) 32 U/L Alanine Aminotransferase (ALT/SGPT) 108 U/L Total Bilirubin 0.6 MG/DL Sodium Level 144 MEQ/L Potassium Level 3.4 MEQ/L Chloride Level 103 MEQ/L Carbon Dioxide Level 33.9 MEQ/L Anion Gap 7 MEQ/L Estimat Glomerular Filtration Rate 87 ML/MIN Imaging Last Impressions Chest X-Ray 11/07/16 0600 Signed Impressions: Service Date/Time: Monday, November 07, 2016 04:30 - CONCLUSION: 1. Stable basilar airspace disease and small effusions similar to November 06. Support apparatus unchanged. Cristofer De Santiago MD Chest CT 11/06/16 0000 Signed Impressions: Service Date/Time: Sunday, November 06, 2016 11:24 - CONCLUSION: 1. Dense bilateral posterior lower lobe airspace consolidation consistent with aspiration versus less likely pneumonia. 2. Linear consolidation in the right middle lobe consistent with atelectasis versus aspiration. 3. Trace left and small right pleural effusions. 4. Support lines and tubes in good position. 5. Prominent coronary artery calcifications. Nico Vaughan MD Head CT 11/05/16 0000 Signed Impressions: Service Date/Time: Saturday, November 05, 2016 21:43 - CONCLUSION: 1. No acute intracranial abnormalities. Pansinus fluid opacification. Cristofer De Santiago MD Abdomen X-Ray 10/29/16 0600 Signed Impressions: Service Date/Time: Saturday, October 29, 2016 04:41 - CONCLUSION: Nonspecific , nonobstructive bowel gas pattern. No evidence of free air. Jayson Taylor MD Carotid Artery Ultrasound 10/25/16 0000 Signed Impressions: Service Date/Time: September 08:27 - CONCLUSION: Mild to moderate plaque in both carotid systems with less than 40%% diameter stenosis by velocity criteria. Jhonathan Dietz MD CT Angiography 10/25/16 0000 Signed Impressions: Service Date/Time: September 06:12 - CONCLUSION: 1. Negative for pulmonary embolism. 2. There is a fairly large area of masslike consolidation in the medial right lung involving posterior segment right upper lobe and medial aspect of right lower lobe. There is associated right hilar and mediastinal adenopathy measuring up to 2.1 cm. Differential diagnosis includes pneumonia or underlying lung neoplasm. Close followup imaging recommended after treatment for pneumonia, to assess for underlying mass. Cristofer De Santiago MD Objective Remarks GENERAL: 55-year-old male, sedated and intubated SKIN: Warm and dry. HEAD: Normocephalic. EYES: No scleral icterus. ENT: Orotracheally intubated NECK: Limited due to morbid obesity CARDIOVASCULAR: Atrial flutter with controlled rate. RESPIRATORY: B/l equal air entry GASTROINTESTINAL: Abdomen soft, obese. No organomegaly by limited exam MUSCULOSKELETAL: Nonpitting bilateral lower extremity edema. NEURO EXAM: Sedated A/P Assessment and Plan Assessment: morbidly obese male with Severe hypoxic respiratory failure, multilobar pneumonia, not improving, persistently hypoxic and not stable for SBT trials yet. off pathway. if we withdraw or even lessen full mechanical support, he would . remains critically ill. Likely will require tracheostomy and longer-term ventilation, but not stable for trach. Neuro/Psych: Syncope s/p Neuromuscular paralysis for Prone therapy Agitated Delirium Metabolic Encephalopathy On Diprivan infusion for sedation and vent synchrony. Daily sedation vacation prn Dilaudid for breakthrough. Haldol 5mg iv q4h prn for agitation. Head CT on admission revealed no acute intracranial findings, CT head 11/05- no acute findings. opacification of sinuses. Carotid ultrasound less than 50% stenosis bilaterally Check EEG CV: New onset atrial flutter with RVR Fluid overload Hypertension- better controlled today. PO Cardizem 60 mg PO q6hr, wean off Cardizem drip. IV heparin for anticoagulation Bumex 1mg iv q8h to q12 11/08 Continue hydralazine 25 mg 3 times a day, Clonidine 0.3mg Q8 and Isordil 10 mg 3 times a day for hypertension Propranolol 40mg po q8hr Resp: Acute hypoxemic Respiratory failure - severe and persistent. Severe ARDS COPD exacerbation Pneumonia most likely community-acquired Obesity hypoventilation syndrome Tobacco use disorder CT pulmonary angio revealed no pulmonary embolus. Masslike consolidation in the posterior right upper lobe and medial right lower lobe. Lymphadenopathy to 1 cm right hilum and subcarinal. Atelectasis left lower lobe. PRVC 20/700/1.2/60. Titrate FiO2 to keep Saturation >88%. Will Need trach once PEEP <10, FiO2<50% Discontinued Prone therapy 11/02/16. Ventilator bundle, Albuterol/ipratropium every 4 hours with albuterol every 2 hours when necessary dyspnea Budesonide 0.5 mg aerosols twice a day.Decrease Solu-Medrol 40 mg daily Pulmonary/Dr. Wynne following Patient has been intubated since 10/25 will likely require trach next week will discuss with family. GI: Morbid Obesity Elevated ALT Monitor LFT, check US liver Vital high protein 1.5 trickle feeds Goal is 65 cc an hour per nutrition's notes Famotidine 20 milligrams IV twice a day for GI prophylaxis Docusate sodium 100 mg twice a day, senna 8.6 mg twice a day, polyethylene glycol 3350 17 g twice a day and lactulose 30 cc 4 times a day for bowel regimen : Monitor renal function, I/O's, electrolytes replacement per protocol. On Bumex 1mg Q12 Endo: Hyperglycemia- poorly controlled. SSI to q4h, high dose. Levemir to 30 q12. Taper IV steroids which should help with glycemic control. Heme: Leukocytosis Monitor CBC daily ID: Severe sepsis Pneumonia Continue Rocephin 2 g IV every 24 hours for Enterobacter pneumonia. Repeat sputum Klebsiella sensitive to Rocephin 10/29/16-Enterobacter in sputum, 11/06/16 sputum- Klebsiella Urine Legionella and pneumococcal antigens negative and influenza negative Follow up on BC from 11/08, check Sputum cx, replace Santiago Access RUE PICC placed 11/05 Prophylaxis - GI, famotidine - DVT - IV heparin Check Doppler US LE Critical Care: The total critical care time was 30 minutes. Time to perform other separately billable procedures was not included in the critical care time. Patient remains critically ill with severe hypoxemic respiratory failure ARDS and pneumonia., severe Sepsis. Requiring very high ventilator settings to maintain his oxygen saturation. Agitated delirium and encephalopathy complicating multi-organ system dysfunction and preventing further improvements. Chepe Carney MD Nov 09, 2016 08:07
[2016-11-09] MEDS: FAMOTIDINE 20 MG/2 ML VIAL IV PUSH SCH ×2 (08:20→21:03)
[2016-11-09] MEDS: SODIUM CHLORIDE 0.9% FLUSH 10 ML FLUSH SCH ×2 (08:21→21:04)
[2016-11-09] MEDS: SODIUM CHLORIDE 0.9% FLUSH 10 ML FLUSH IV FLUSH SCH (08:21)
[2016-11-09] MEDS: SODIUM CHLORIDE 0.9% FLUSH 10 ML FLUSH IVF SCH (08:21)
[2016-11-09] MEDS: LACTULOSE SYRUP 20 GM/30 ML CUP PO SCH ×4 (08:22→21:00)
[2016-11-09] MEDS: POLYETHYLENE GLYCOL 17 GM PKG NG SCH ×2 (08:22→21:05)
[2016-11-09] MEDS: SENNOSIDES SYRUP 8.8 MG/5 ML CUP PEG SCH ×2 (08:22→21:05)
[2016-11-09] MEDS: ARTIFICIAL TEARS OPTH OINT 3.5 APPLIC/3.5 GM TUBO EACH EYE SCH ×2 (08:22→21:00)
[2016-11-09] MEDS: DOCUSATE SODIUM 100 MG/10 ML UDC PO SCH ×2 (08:22→21:03)
[2016-11-09] MEDS: CHLORHEXIDINE 0.12% (ORAL KIT) 15 ML CUP MT SCH ×2 (08:24→21:04)
[2016-11-09] MEDS: BENEPROTEIN POWDER 1 PACK G-TUBE SCH ×3 (09:00→16:54)
[2016-11-09] MEDS: methylPREDNISolone SOD SUCC 40 MG/1 ML VIAL IV SCH (11:00)
[2016-11-09] MEDS: BUMETANIDE INJ 1 MG/4 ML VIAL IV PUSH SCH ×3 (11:01→23:56)
[2016-11-09 13:41] LABS: APTT (PATIENT) 29.4 SEC (24.3-30.1)
[2016-11-09] MEDS: VANCOMYCIN INJ 2,250 MG in SODIUM CHLORID 0.9% 500 ML INJ 500 ML IV SCH (14:13)
--- NOTE | 2016-11-09 14:13 | RADRPT ---
EXAM DATE/TIME: 11/09/2016 13:36 [facility] COMPARISON: CHEST SINGLE AP, November 09, 2016, 4:08. INDICATIONS : Intubation adjustment. MEDICAL HISTORY : Hypertension. Chronic obstructive pulmonary disease. SURGICAL HISTORY : None. ENCOUNTER: Initial ACUITY: 2 weeks PAIN SCORE: Non-responsive. LOCATION: Bilateral chest FINDINGS: The endotracheal has its tip approximately 4 cm above the filiberto in good position. A right-sided PICC line has its tip at the junction of the superior vena cava and right atrium. Right basilar patchines s is again noted consistent with a probable pneumonia. Minimal left basilar streakiness is also again noted. The heart is stable. CONCLUSION: 1. Endotracheal tube in good position approximately 4 cm above the filiberto. 2. Bibasilar patchiness (right worse than left) which is stable. Peter Philip MD on November 09, 2016 at 14:10 Board Certified Radiologist. This report was verified electronically.
[2016-11-09] MEDS: cefTRIAXone INJ 2,000 MG in SODIUM CHLORIDE 0.9% INJ 100 ML IV SCH (14:16)
--- NOTE | 2016-11-09 15:46 | RADRPT ---
EXAM DATE/TIME: 11/09/2016 14:13 [facility] COMPARISON: No previous studies available for comparison. INDICATIONS : Bilateral leg swelling. MEDICAL HISTORY : Hypertension. Chronic obstructive pulmonary disease. Hypercholesterolemia. Kidney stones. Anticoagula nt therapy. SURGICAL HISTORY : None. ENCOUNTER: Initial ACUITY: 1 day PAIN SCORE: Non-responsive LOCATION: Bilateral legs. TECHNIQUE: Venous ultrasound of the left and right leg was performed from the inguinal ligament to the proximal calf. Real-time, color Doppler and spectral tracing, compression and augmentation techniques were us ed. FINDINGS: RIGHT LEG: There is normal compressibility of the deep venous system from the inguinal region to the proximal ca lf. No echogenic clot is seen in the lumen of the common femoral, femoral, popliteal, and posterior tibial veins. There is a normal response of the venous system to proximal and distal augmentation an d respiration. LEFT LEG: There is normal compressibility of the deep venous system from the inguinal region to the proximal ca lf. No echogenic clot is seen in the lumen of the common femoral, femoral, popliteal, and posterior tibial veins. There is a normal response of the venous system to proximal and distal augmentation an d respiration. CONCLUSION: Normal examination. Jayson Manning MD on November 09, 2016 at 15:44 Board Certified Radiologist. This report was verified electronically.
--- NOTE | 2016-11-09 16:37 | RADRPT ---
EXAM DATE/TIME: 11/09/2016 13:58 [facility] COMPARISON: CT THORAX W/O CONTRAST, November 06, 2016, 11:24. INDICATIONS : Increased lab values. MEDICAL HISTORY : Hypercholesterolemia. Hypertension. Chronic obstructive pulmonary disease. SURGICAL HISTORY : None. ENCOUNTER: Initial ACUITY: 1 day PAIN SCORE: Nonresponsive. LOCATION: Bilateral upper quadrant MEASUREMENTS: LIVER: 20.2 cm length COMMON DUCT: 4 mm RIGHT KIDNEY: 14.7 x 5.7 x 6.1 cm SPLEEN: 9.7 cm length FINDINGS: LIVER: Liver is enlarged and somewhat echogenic. COMMON DUCT: No intraluminal mass or stone visualized. GALLBLADDER: Mild gallbladder wall thickening without stones. PANCREAS: Poorly seen RIGHT KIDNEY: Without hydronephrosis. SPLEEN: No focal lesion. CONCLUSION: Sono dense liver without duct dilatation. 4 mm common duct. Ward Kim MD FACR on November 09, 2016 at 16:34 Board Certified Radiologist. This report was verified electronically.
--- NOTE | 2016-11-09 16:37 | RADRPT ---
EXAM DATE/TIME: 11/09/2016 15:24 [facility] COMPARISON: CHEST SINGLE AP, November 09, 2016, 13:36. INDICATIONS : ETT placement MEDICAL HISTORY : Chronic obstructive pulmonary disease. Hypertension SURGICAL HISTORY : None. ENCOUNTER: Subsequent ACUITY: 2 weeks PAIN SCORE: Non-responsive. LOCATION: chest FINDINGS: Endotracheal tubes in good position. The PICC is in satisfactory position. The heart is normal in siz e. The lungs demonstrate chronic interstitial changes but are otherwise clear. CONCLUSION: 1. Support equipment into position. 2. COPD changes. 3. Stable compared to previous Román Kim MD on November 09, 2016 at 16:35 Board Certified Radiologist. This report was verified electronically.
[2016-11-09 17:08] LABS: BLOOD GAS BASE EXCESS 8.7 mmol/L (-2-2); BLOOD GAS HCO3 33 mmol/L (22-26); BLOOD GAS METHEMOGLOBIN 1.2 % (0-2); BLOOD GAS O2 HGB SATURATION 88 % (90-100); BLOOD GAS OXYGEN CONTENT 19.2 Vol % (12.0-20.0); BLOOD GAS PCO2 48 mmHg (38-42); BLOOD GAS PO2 58 mmHg (61-120); BLOOD GAS TOTAL HGB 15.5 G/DL (12.0-16.0); TEMP CORR TO 98.6
[2016-11-09 17:09] LABS: CRITICAL VALUE YES; DRAW SITE RT RADIAL; FIO2 60 %; NUMBER OF ARTERIAL PUNCTURES 1; OXYGEN DEVICE VENTILATOR; STAT NO; ULNAR PULSE PRESENT; VENT SETTINGS PRVC/AC
[2016-11-09] MEDS: HEPARIN-D5W 25,000 U/250 ML 250 ML IV PRN (17:39)
--- NOTE | 2016-11-09 17:42 | MG ---
cc: YULIET JOHNSON M.D. Lab No: Date: 11/09/2016 Age: Sex: M Race: TECHNIQUE 17 channel EEG. DESCRIPTION: The background rhythm reveals generalized slowing in the delta frequency at 3-4 Hz. Amplitude 10-20 microvolts. Rare muscle artifact identified. There are no lateralizing features seen. There are no epileptic discharges present. INTERPRETATION: Abnormal study consistent with a severe encephalopathy. MD WILFREDO Nickerson/JOSÉ MIGUEL /3:25 PM /5:34 PM
[2016-11-09] MEDS: SODIUM CHLORIDE 0.9% FLUSH 10 ML FLUSH PRN ×2 (21:04→23:57)
[2016-11-09 21:22] LABS: APTT (PATIENT) 34.3 SEC (24.3-30.1)
[2016-11-10] VITALS (19 sets, daily range): BP systolic 96–139; BP diastolic 66–91; PULSE 102–144; RESP 18–19; TEMP 100.3–103.2; O2SAT 90–98
[2016-11-10] MEDS: INSULIN DETEMIR 100 UNITS/ML VIAL SQ SCH ×2 (01:00→11:46)
[2016-11-10] MEDS: PROPOFOL 1000 MG/100 ML IV PRN ×7 (01:11→23:42)
[2016-11-10] MEDS: RESP: ALBUTEROL 2.5 MG/IPRATROPIUM 0.5 MG NEB (SCH) NEB ×3 (02:40→15:14)
[2016-11-10] MEDS: LINEZOLID 600 MG PREMIX 300 ML IV SCH ×2 (02:48→14:02)
[2016-11-10] MEDS: CHLORHEXIDINE GLUCONATE 2 % 1 PACK (2 CLOTHS) TOP SCH ×2 (04:00→19:11)
[2016-11-10] MEDS: INSULIN NovoLIN REGULAR SUPPLEMENTAL SCALE SQ SCH ×5 (04:00→20:00)
[2016-11-10 04:24] LABS: MEAN CORPUSCULAR HEMOGLOBIN 30.6 PG (27.0-34.0); MEAN CORPUSCULAR HGB CONC 32.2 % (32.0-36.0); PLATELET COUNT 223 TH/MM3 (150-450); RED BLOOD COUNT 4.73 MIL/MM3 (4.50-5.90); RED CELL DISTRIBUTION WIDTH 14.2 % (11.6-17.2); WHITE BLOOD COUNT 14.5 TH/MM3 (4.0-11.0)
[2016-11-10 04:29] LABS: HEMO FLAGS AUTO DIFF
[2016-11-10 04:47] LABS: APTT (PATIENT) 41.1 SEC (24.3-30.1)
[2016-11-10] MEDS: cloNIDine HCL 0.3 MG TAB PO SCH ×3 (04:52→20:13)
[2016-11-10] MEDS: DILTIAZEM HCL 60 MG TAB PO SCH ×4 (04:53→22:53)
[2016-11-10] MEDS: ACETAMINOPHEN 325 MG TAB PO PRN (04:53)
[2016-11-10] MEDS: hydrALAZINE HCL 25 MG TAB PO SCH ×3 (04:53→20:13)
[2016-11-10] MEDS: PROPRANOLOL HCL 40 MG TAB PO SCH ×3 (04:53→20:13)
[2016-11-10] MEDS: ISOSORBIDE DINITRATE 10 MG TAB PO SCH ×3 (04:53→20:14)
[2016-11-10 05:04] LABS: ALKALINE PHOSPHATASE 45 U/L (45-117); ALT (GPT) 225 U/L (12-78); ANION GAP 8 MEQ/L (5-15); AST (GOT) 121 U/L (15-37); BLOOD UREA NITROGEN 49 MG/DL (7-18); CHLORIDE 103 MEQ/L (98-107); GLOMERULAR FILTRATION RATE 82 ML/MIN (>89); MAGNESIUM 2.6 MG/DL (1.5-2.5); POTASSIUM 3.4 MEQ/L (3.5-5.1); SODIUM (NA) 144 MEQ/L (136-145); TOTAL BILIRUBIN ADULT 0.7 MG/DL (0.2-1.0)
[2016-11-10 05:16] LABS: METAMYELOCYTES 1 % (0-1); NEUTROPHIL # MANUAL DIFF 10.4 TH/MM3 (1.8-7.7); PLATELET ESTIMATE SMEAR NORMAL (NORMAL); PLATELET MORPHOLOGY NORMAL (NORMAL); POLYS (SEG NEUTROPHILS) 71 % (16-70); SCAN/DIFF FINAL DIFF MANUAL; STOMATOCYTES 1+ (NORMAL); WBC DIFF SAMPLE 100
[2016-11-10] MEDS: POTASSIUM CHLOR 40 MEQ PREMIX 100 ML IV PRN (05:42)
[2016-11-10] MEDS: PIPERACIL-TAZO 4.5 GM PREMIX 100 ML IV SCH ×3 (06:53→17:42)
--- NOTE | 2016-11-10 07:15 | HHI.CCPN ---
Subjective Remarks/Hospital Course 55-year-old very pleasant gentleman with past medical history of COPD, and hypertension presents complaining of shortness of breath and nausea, generalized fatigue and chills for 2 days. He thinks it has been from being out in the heat. Denies any fever, chest pain, vomiting, abdominal pain, focal weakness or numbness. In the emergency department his saturation was in mid 80s on arrival with auditory wheezing and tachypnea. He was placed on 4 liters of NC and saturating in the low 90. He does not use oxygen at home. He also mentioned 2 days ago, he came home and was sitting in a chair and was taking his shoes off when he passed out. States he woke up and was still on the chair. This has never happen before. 10/25: Patient intubated secondary to increasing oxygen requirements, altered mental status. Discussed with son. Somewhat hypertensive post intubation. 10/26: Placed on rotaprone bed last evening. Flolan initiated. Saturations improved. Afebrile. Remains on Nimbex drip. 10/27: T max 99.7. Tolerated on not prone position 2 hours yesterday. Tolerating trickle feeds. FiO2 down to 55% 10/28: Tmax 99.9. When unprone for chest x-ray this a.m. desaturated. Currently on 90% FiO2. Actually hypertensive. No bowel movements. Remains paralyzed 10/29: Remains intubated sedated on continuous Prone therapy Except for chest x- ray. Fever 100.8. Panculture requested. Zyvox added. Continue IV sedation with propofol and fentanyl and Versed, neuromuscular paralysis with Nimbex 10/30: Prone cycle changed to 8 hr prone, 1 hr supine from 10/29. Due to hypoxia will continue with same cycle today. Chest x-ray remains unchanged. Patient remains severely hypoxemic FiO2 at 75% PEEP at 16. WBC count worsened to 18. Remains neuromuscularly paralyzed. 10/31: Patient remains critically ill but stable. Oxygen saturation 95% on 55 of FiO2 and PEEP of 16. Reduce PEEP to 14, FiO2 to 50% and start weaning Flolan. Increase supine time to 4 hours, reduce Prone time to 6 hours 11/01: Patient remains intubated sedated critically ill on neuromuscular paralysis. FiO2 reduced to 50, I will attempt PEEP wean gradually to 12 today. Prone/supine cycles will be changed to 6 hours each 11/02: FiO2 remains at 50%, PEEP reduced from 14 to 12 today, TV increased to 600 and RR to 20, in anticipation of discontinuing prone therapy, which will be DCd today. Off Flolan for 2 days 11/03: off pronation. fio2 up to 65% , peep 12. agitation causing desaturation. minimal improvements. 11/04: good diuresis yesterday, but despite that, fio2 persists at 65% and spo2 decreasing to 91% today. no real improvements and some worsening of pulmonary function despite ongoing aggressive therapies. still not safe for SBT given hypoxia. also severely hypertensive this morning. 11/05: continues to diurese well and Cr still at baseline. fio2 at 90% however, and no clinical improvements in mental status or hypoxia. still unsafe for SBT given hypoxemia. off pathway. hypertension under much better control. poor neuro status is concerning. 11/06: Remains severely hypoxemic. FiO2 was 100% PEEP 14. I reduce FiO2 to 90% after increasing PEEP to 16. Developed a flutter with RVR overnight, currently on Cardizem drip. Unable to do SBT due to very high settings 11/07: Remains hypoxemic and but able to wean FiO2 down to 80% with PEEP of 16. Remains unresponsive on sedation. Unable to trach due to his high vent settings and high FiO2. Remains on Cardizem and 15 mg per hour, with rate controlled a flutter. We'll start by mouth Cardizem in an attempt to wean IV Cardizem 11/08: Remains critically ill hypoxic but FiO2 now weaned to 60%, PEEP remains at 16. Very heavily sedated no withdrawal to pain. Will hold all continuos sedation. Sputum culture with Klebsiella sensitive to Rocephin. A flutter persistent, will start IV heparin 11/09 Patient is sedated with Diprivan and intubated, On Cardizem drip 15mg/hr for Aflutter. Heparin drip stated yesterday. 11/10 Patient remains sedated and intubated. On Heparin drip. Persistent fever with Tmax 102.5. ETT was replaced yesterday. Objective Vital Signs Date Time Temp Pulse Resp B/P (MAP) Pulse Ox O2 Delivery O2 Flow Rate FiO2 11/10/16 06:00 120 11/10/16 04:22 93 90 11/10/16 04:00 102.5 18 111/67 (82) Intake and Output 11/10/16 11/10/16 11/11/16 08:00 16:00 00:00 Intake Total 400 ml Output Total 1550 ml Balance -1150 ml Result Diagram: 11/10/16 0400 11/10/16 0400 Other Results Laboratory Tests Test 11/09/16 12:37 11/09/16 17:00 11/09/16 20:45 11/10/16 04:00 Activated Partial Thromboplast Time 29.4 SEC 34.3 SEC 41.1 SEC Blood Gas Puncture Site RT RADIAL Blood Gas Patient Temperature 98.6 Blood Gas HCO3 33 mmol/L Blood Gas Base Excess 8.7 mmol/L Blood Gas Oxygen Saturation 88 % Arterial Blood pH 7.45 Arterial Blood Partial Pressure CO2 48 mmHg Arterial Blood Partial Pressure O2 58 mmHg Arterial Blood Oxygen Content 19.2 Vol % Arterial Blood Carboxyhemoglobin 1.0 % Arterial Blood Methemoglobin 1.2 % Blood Gas Hemoglobin 15.5 G/DL Oxygen Delivery Device VENTILATOR Blood Gas Ventilator Setting PRVC/AC Blood Gas Inspired Oxygen 60 % White Blood Count 14.5 TH/MM3 Red Blood Count 4.73 MIL/MM3 Hemoglobin 14.5 GM/DL Hematocrit 45.0 % Mean Corpuscular Volume 95.0 FL Mean Corpuscular Hemoglobin 30.6 PG Mean Corpuscular Hemoglobin Concent 32.2 % Red Cell Distribution Width 14.2 % Platelet Count 223 TH/MM3 Mean Platelet Volume 8.7 FL CBC Comment AUTO DIFF Differential Total Cells Counted 100 Neutrophils % (Manual) 71 % Lymphocytes % 9 % Monocytes % 19 % Neutrophils # (Manual) 10.4 TH/MM3 Metamyelocytes 1 % Differential Comment FINAL DIFF MANUAL Platelet Estimate NORMAL Platelet Morphology Comment NORMAL Stomatocytes 1+ Blood Urea Nitrogen 49 MG/DL Creatinine 0.95 MG/DL Random Glucose 244 MG/DL Total Protein 6.1 GM/DL Albumin 2.3 GM/DL Calcium Level 8.0 MG/DL Phosphorus Level 2.4 MG/DL Magnesium Level 2.6 MG/DL Alkaline Phosphatase 45 U/L Aspartate Amino Transf (AST/SGOT) 121 U/L Alanine Aminotransferase (ALT/SGPT) 225 U/L Total Bilirubin 0.7 MG/DL Sodium Level 144 MEQ/L Potassium Level 3.4 MEQ/L Chloride Level 103 MEQ/L Carbon Dioxide Level 33.0 MEQ/L Anion Gap 8 MEQ/L Estimat Glomerular Filtration Rate 82 ML/MIN Imaging Last Impressions Chest X-Ray 11/09/16 0600 Signed Impressions: Service Date/Time: Wednesday, November 09, 2016 04:08 - CONCLUSION: 1. Significant improvement in aeration in the left lung base with resolving consolidation/effusion. 2. While there is a persistent right basilar consolidation/effusion, this too shows interval improvement. 3. Endotracheal tube is somewhat shallow likely thoracic inlet. This can probably be advanced a few centimeters. Life support tubes are otherwise stable in position. Jorge Jolly MD Lower Extremity Ultrasound 11/09/16 0000 Signed Impressions: Service Date/Time: Wednesday, November 09, 2016 14:13 - CONCLUSION: Normal examination. Jayson Manning MD Liver Ultrasound 11/09/16 0000 Signed Impressions: Service Date/Time: Wednesday, November 09, 2016 13:58 - CONCLUSION: Sono dense liver without duct dilatation. 4 mm common duct. Ward Kim MD FACR Chest CT 11/06/16 0000 Signed Impressions: Service Date/Time: Sunday, November 06, 2016 11:24 - CONCLUSION: 1. Dense bilateral posterior lower lobe airspace consolidation consistent with aspiration versus less likely pneumonia. 2. Linear consolidation in the right middle lobe consistent with atelectasis versus aspiration. 3. Trace left and small right pleural effusions. 4. Support lines and tubes in good position. 5. Prominent coronary artery calcifications. Nico Vaughan MD Head CT 11/05/16 0000 Signed Impressions: Service Date/Time: Saturday, November 05, 2016 21:43 - CONCLUSION: 1. No acute intracranial abnormalities. Pansinus fluid opacification. Cristofer De Santiago MD Abdomen X-Ray 10/29/16 0600 Signed Impressions: Service Date/Time: Saturday, October 29, 2016 04:41 - CONCLUSION: Nonspecific , nonobstructive bowel gas pattern. No evidence of free air. Jayson Taylor MD Carotid Artery Ultrasound 10/25/16 0000 Signed Impressions: Service Date/Time: September 08:27 - CONCLUSION: Mild to moderate plaque in both carotid systems with less than 40%% diameter stenosis by velocity criteria. Jhonathan Dietz MD CT Angiography 8/31/17 0000 Signed Impressions: Service Date/Time: September 06:12 - CONCLUSION: 1. Negative for pulmonary embolism. 2. There is a fairly large area of masslike consolidation in the medial right lung involving posterior segment right upper lobe and medial aspect of right lower lobe. There is associated right hilar and mediastinal adenopathy measuring up to 2.1 cm. Differential diagnosis includes pneumonia or underlying lung neoplasm. Close followup imaging recommended after treatment for pneumonia, to assess for underlying mass. Cristofer De Santiago MD Objective Remarks GENERAL: 55-year-old male, sedated and intubated SKIN: Warm and dry. HEAD: Normocephalic. EYES: No scleral icterus. ENT: Orotracheally intubated NECK: Limited due to morbid obesity CARDIOVASCULAR: Atrial flutter with controlled rate. RESPIRATORY: B/l equal air entry GASTROINTESTINAL: Abdomen soft, obese. No organomegaly by limited exam MUSCULOSKELETAL: Nonpitting bilateral lower extremity edema. NEURO EXAM: Sedated A/P Assessment and Plan Assessment: morbidly obese male with Severe hypoxic respiratory failure, multilobar pneumonia, not improving, persistently hypoxic and not stable for SBT trials yet. off pathway. if we withdraw or even lessen full mechanical support, he would . remains critically ill. Likely will require tracheostomy and longer-term ventilation, but not stable for trach. Neuro/Psych: Syncope s/p Neuromuscular paralysis for Prone therapy Agitated Delirium Metabolic Encephalopathy On Diprivan infusion for sedation and vent synchrony. Daily sedation vacation prn Dilaudid for breakthrough. Haldol 5mg iv q4h prn for agitation. Head CT on admission revealed no acute intracranial findings, CT head 11/05- no acute findings. opacification of sinuses. Carotid ultrasound less than 50% stenosis bilaterally EEG 11/09: severe encephalopathy CV: New onset atrial flutter with RVR Fluid overload Hypertension- better controlled today. PO Cardizem 60 mg PO q6hr, wean off Cardizem drip. IV heparin for anticoagulation Continue hydralazine 25 mg 3 times a day, Clonidine 0.3mg Q8 and Isordil 10 mg 3 times a day for hypertension Propranolol 40mg po q8hr Resp: Acute hypoxemic Respiratory failure - severe and persistent. Severe ARDS COPD exacerbation Pneumonia most likely community-acquired Obesity hypoventilation syndrome Tobacco use disorder CT pulmonary angio revealed no pulmonary embolus. Masslike consolidation in the posterior right upper lobe and medial right lower lobe. Lymphadenopathy to 1 cm right hilum and subcarinal. Atelectasis left lower lobe. PRVC 18, TV 700, IT:1.2, PEEP:15, FIO2 90% to keep Saturation >88%. Will Need trach once PEEP <10, FiO2<50% Discontinued Prone therapy 11/02/16. Ventilator bundle, Albuterol/ipratropium every 4 hours with albuterol every 2 hours when necessary dyspnea Budesonide 0.5 mg aerosols twice a day. Solu-Medrol 40 mg daily Pulmonary/Dr. Wynne following Patient has been intubated since 10/25 will need trach once his O2 requirements is better GI: Morbid Obesity Elevated ALT Monitor LFT, US liver: No ductal dilatation Resume tube feeds-Vital high protein 1.5 Goal is 65 cc an hour per nutrition's notes Famotidine 20 milligrams IV twice a day for GI prophylaxis Docusate sodium 100 mg twice a day, senna 8.6 mg twice a day, polyethylene glycol 3350 17 g twice a day and lactulose 30 cc 4 times a day for bowel regimen : Monitor renal function, I/O's, electrolytes replacement per protocol. d/c Bumex Endo: Hyperglycemia- poorly controlled. SSI to q4h, high dose. Levemir to 30 q12. Taper IV steroids which should help with glycemic control. Heme: Leukocytosis Monitor CBC daily ID: Severe sepsis Pneumonia s/p Rocephin 11/02-11/09 for Enterobacter pneumonia. Repeat sputum Klebsiella sensitive to Rocephin 10/29/16-Enterobacter in sputum, 11/06/16 sputum- Klebsiella Urine Legionella and pneumococcal antigens negative and influenza negative Follow up on BC from 11/08, Santiago replaced 11/09. Check PCR C-diff Continue Zyvox add Zosyn. ID eval. Access RUE PICC placed 11/05 Prophylaxis - GI, famotidine - DVT - IV heparin Check Doppler US LE Critical Care: The total critical care time was 30 minutes. Time to perform other separately billable procedures was not included in the critical care time. Patient remains critically ill with severe hypoxemic respiratory failure ARDS and pneumonia., severe Sepsis. Requiring very high ventilator settings to maintain his oxygen saturation. Agitated delirium and encephalopathy complicating multi-organ system dysfunction and preventing further improvements. Chepe Carney MD Nov 10, 2016 07:15
[2016-11-10] MEDS: RESP: BUDESONIDE 0.5 MG/2 ML NEB NEB SCH ×2 (07:32→20:40)
[2016-11-10] MEDS ORDERED: PIPERACIL-TAZO 4.5 GM PREMIX 100 ML IV SCH (08:00)
[2016-11-10] MEDS: CHLORHEXIDINE 0.12% (ORAL KIT) 15 ML CUP MT SCH ×2 (08:00→20:00)
[2016-11-10] MEDS: SODIUM CHLORIDE 0.9% FLUSH 10 ML FLUSH IVF SCH (09:00)
[2016-11-10] MEDS: SODIUM CHLORIDE 0.9% FLUSH 10 ML FLUSH IV FLUSH SCH (09:00)
[2016-11-10] MEDS: BENEPROTEIN POWDER 1 PACK G-TUBE SCH ×3 (09:00→17:42)
[2016-11-10] MEDS: SODIUM CHLORIDE 0.9% FLUSH 10 ML FLUSH SCH ×2 (10:11→20:13)
[2016-11-10] MEDS: ARTIFICIAL TEARS OPTH OINT 3.5 APPLIC/3.5 GM TUBO EACH EYE SCH ×2 (10:11→20:13)
[2016-11-10] MEDS: FAMOTIDINE 20 MG/2 ML VIAL IV PUSH SCH ×2 (10:11→20:13)
[2016-11-10] MEDS: methylPREDNISolone SOD SUCC 40 MG/1 ML VIAL IV SCH (10:11)
[2016-11-10] MEDS: HEPARIN-D5W 25,000 U/250 ML 250 ML IV PRN (11:45)
[2016-11-10 11:56] LABS: C. DIFF EPI 027 PRESUMPTIVE NEGATIVE (NEGATIVE)
[2016-11-10 12:20] LABS: APTT (PATIENT) 45.5 SEC (24.3-30.1)
--- NOTE | 2016-11-10 13:17 | PD.ID.CON ---
History of Present Illness Service ID Consult Requested By Dr Wood Reason for Consult fever, PNA Primary Care Physician No Primary Care Physician Diagnoses: History of Present Illness 56 yo male with COPD and obesity admitted on 10/25 with complaining of shortness of breath and nausea, generalized fatigue and chills for 2 days On presentation with fever and leukocytosis of [address] showed fairly large area of masslike consolidation in the medial right lung involving posterior segment right upper lobe and medial aspect of right lower lobe. He was diagnosed with PNA Due to progressive resp failure pt was intubated and placed on mech ventilation His original sputum grew nl resp cecelia, repeat from 10/29 had pannS Enerobacter, next sputum clx from 11/06 had Kleb pneumo with mild resistance issues ( cefuroxime, tetracycline) All blood clx negative to date Flu, Legionella and pneumococcus antigens all negative Since then he remains unstable from resp standpoint with high FiO2 demands up to 90%, febrile with latest fever increasing into 102-103 range and with perseisten leukocytosis Abx were reviewd: pt was Rx d with azithro x 8 days (10/25- 11/02), CFTX for 7 days (11/02-) and is on Zyvox since 10/29 Vanco and zosyn started rosalie Review of Systems ROS Limitations: Clinical Condition, Intubated Past Family Social History Allergies: Coded Allergies: No Known Allergies (Unverified , 10/25/16) Past Medical History f COPD, and hypertension Past Surgical History none Active Ordered Medications Medications where reviewed in EMR Antibiotics Include: zosyn, vancomycin zyvox Family History reviewed and Non-Contributory. Social History + Tobacco. 1 PPD No ETOH. No Illicit Drugs. Physical Exam Vital Signs Vital Signs Date Time Temp Pulse Resp B/P (MAP) Pulse Ox O2 Delivery O2 Flow Rate FiO2 11/10/16 08:41 91 80 11/10/16 08:00 103.2 122 19 118/71 (87) 90 11/10/16 08:00 122 11/10/16 08:00 90 11/10/16 06:00 120 11/10/16 04:22 93 90 11/10/16 04:00 123 11/10/16 04:00 90 11/10/16 04:00 102.5 123 18 111/67 (82) 93 11/10/16 02:00 123 11/10/16 00:10 92 90 11/10/16 00:00 90 11/10/16 00:00 100.5 123 18 128/75 (92) 91 11/10/16 00:00 120 11/09/16 23:44 90 11/09/16 23:29 91 90 11/09/16 22:30 89 100 11/09/16 22:00 123 11/09/16 22:00 100 11/09/16 21:19 91 70 11/09/16 20:00 70 11/09/16 20:00 100.1 123 18 123/72 (89) 89 11/09/16 20:00 123 11/09/16 18:00 123 11/09/16 16:00 102.0 128 18 125/76 (92) 96 11/09/16 16:00 60 11/09/16 16:00 128 11/09/16 15:50 96 85 11/09/16 14:00 137 Physical Exam CONSTITUTIONAL/GENERAL: This is a morbidly obese patient, sedated int'd on vent TUBES/LINES/DRAINS: SKIN: No jaundice, rashes, or lesions. Skin temperature appropriate. Not diaphoretic. HEAD: Atraumatic. Normocephalic. EYES: Pupils equal and round and reactive. Extraocular motions intact. No scleral icterus. No injection or drainage. Fundi not examined. ENT: Hearing not tested . Nose without bleeding or purulent drainage. Throat without visible erythema, exudates, masses, or lesions. NECK: Trachea midline. Supple, nontender. CARDIOVASCULAR: Regular rate and rhythm without murmurs, gallops, or rubs. No JVD. Peripheral pulses symmetric. RESPIRATORY/CHEST: Symmetric, unlabored respirations. Clear to auscultation. Breath sounds equal bilaterally. No wheezes, rales, or rhonchi. GASTROINTESTINAL: Abdomen soft, non-tender, nondistended. No hepato-splenomegaly , or palpable masses. No guarding. Bowel sounds present. [address] in [address],[place] with liquid brown stool GENITOURINARY: Without palpable bladder distension. Santiago catheter in place. MUSCULOSKELETAL: Extremities without clubbing, cyanosis, or edema. No joint tenderness or effusion noted. No calf tenderness. No mottling or clubbing. LYMPHATICS: No palpable cervical or supraclavicular adenopathy. NEUROLOGICAL: Sedated. nresponsive PSYCHIATRIC: unable to assess Laboratory Laboratory Tests Test 11/09/16 17:00 11/09/16 20:45 11/10/16 04:00 11/10/16 07:25 Blood Gas Puncture Site RT RADIAL Blood Gas Patient Temperature 98.6 Blood Gas HCO3 33 Blood Gas Base Excess 8.7 Blood Gas Oxygen Saturation 88 Arterial Blood pH 7.45 Arterial Blood Partial Pressure CO2 48 Arterial Blood Partial Pressure O2 58 Arterial Blood Oxygen Content 19.2 Arterial Blood Carboxyhemoglobin 1.0 Arterial Blood Methemoglobin 1.2 Blood Gas Hemoglobin 15.5 Oxygen Delivery Device VENTILATOR Blood Gas Ventilator Setting PRVC/AC Blood Gas Inspired Oxygen 60 Activated Partial Thromboplast Time 34.3 41.1 White Blood Count 14.5 Red Blood Count 4.73 Hemoglobin 14.5 Hematocrit 45.0 Mean Corpuscular Volume 95.0 Mean Corpuscular Hemoglobin 30.6 Mean Corpuscular Hemoglobin Concent 32.2 Red Cell Distribution Width 14.2 Platelet Count 223 Mean Platelet Volume 8.7 CBC Comment AUTO DIFF Differential Total Cells Counted 100 Neutrophils % (Manual) 71 Lymphocytes % 9 Monocytes % 19 Neutrophils # (Manual) 10.4 Metamyelocytes 1 Differential Comment FINAL DIFF MANUAL Platelet Estimate NORMAL Platelet Morphology Comment NORMAL Stomatocytes 1+ Blood Urea Nitrogen 49 Creatinine 0.95 Random Glucose 244 Total Protein 6.1 Albumin 2.3 Calcium Level 8.0 Phosphorus Level 2.4 Magnesium Level 2.6 Alkaline Phosphatase 45 Aspartate Amino Transf (AST/SGOT) 121 Alanine Aminotransferase (ALT/SGPT) 225 Total Bilirubin 0.7 Sodium Level 144 Potassium Level 3.4 Chloride Level 103 Carbon Dioxide Level 33.0 Anion Gap 8 Estimat Glomerular Filtration Rate 82 Ammonia 23 Test 11/10/16 09:30 11/10/16 11:35 Stool C. difficile Toxin (PCR) NEGATIVE Stl C. difficile Toxin Epiderm 027 PRESUMPTIVE NEGATIVE Activated Partial Thromboplast Time 45.5 Date/Time Source Procedure Growth Status 11/10/16 11:40 Blood Peripheral Aerobic Blood Culture Pending Received 11/10/16 11:40 Blood Peripheral Anaerobic Blood Culture Pending Received 11/08/16 14:15 Stool Stool Stool Occult Blood ([facility]) - Final HEMOCCULT NEGATIVE Complete 11/10/16 05:45 Sputum Endotracheal Gram Stain Pending Received 11/10/16 05:45 Sputum Endotracheal Sputum Culture Pending Received 10/29/16 15:30 Urine Catheterized Urine Urine Culture - Final NO GROWTH IN 48 HOURS. Complete Result Diagram: 11/10/1639911/[id number]/16399 Imaging Last Impressions Chest X-Ray 11/09/16 06 Signed Impressions: Service Date/Time: Wednesday, November 09, 2016 04:08 - CONCLUSION: 1. Significant improvement in aeration in the left lung base with resolving consolidation/effusion. 2. While there is a persistent right basilar consolidation/effusion, this too shows interval improvement. 3. Endotracheal tube is somewhat shallow likely thoracic inlet. This can probably be advanced a few centimeters. Life support tubes are otherwise stable in position. Jorge Jolly MD Lower Extremity Ultrasound 11/09/16 0000 Signed Impressions: Service Date/Time: Wednesday, November 09, 2016 14:13 - CONCLUSION: Normal examination. Jayson Manning MD Liver Ultrasound 11/09/16 0000 Signed Impressions: Service Date/Time: Wednesday, November 09, 2016 13:58 - CONCLUSION: Sono dense liver without duct dilatation. 4 mm common duct. Ward Kim MD FACR Chest CT 11/06/16 0000 Signed Impressions: Service Date/Time: Sunday, November 06, 2016 11:24 - CONCLUSION: 1. Dense bilateral posterior lower lobe airspace consolidation consistent with aspiration versus less likely pneumonia. 2. Linear consolidation in the right middle lobe consistent with atelectasis versus aspiration. 3. Trace left and small right pleural effusions. 4. Support lines and tubes in good position. 5. Prominent coronary artery calcifications. Nico Vaughan MD Head CT 11/05/16 0000 Signed Impressions: Service Date/Time: Saturday, November 05, 2016 21:43 - CONCLUSION: 1. No acute intracranial abnormalities. Pansinus fluid opacification. Cristofer De Santiago MD Abdomen X-Ray 10/29/16 06 Signed Impressions: Service Date/Time: Saturday, October 29, 2016 04:41 - CONCLUSION: Nonspecific , nonobstructive bowel gas pattern. No evidence of free air. Jayson Taylor MD Carotid Artery Ultrasound 10/25/16 0000 Signed Impressions: Service Date/Time: September 08:27 - CONCLUSION: Mild to moderate plaque in both carotid systems with less than 40%% diameter stenosis by velocity criteria. Jhonathan Dietz MD CT Angiography 10/25/16 0000 Signed Impressions: Service Date/Time: September 06:12 - CONCLUSION: 1. Negative for pulmonary embolism. 2. There is a fairly large area of masslike consolidation in the medial right lung involving posterior segment right upper lobe and medial aspect of right lower lobe. There is associated right hilar and mediastinal adenopathy measuring up to 2.1 cm. Differential diagnosis includes pneumonia or underlying lung neoplasm. Close followup imaging recommended after treatment for pneumonia, to assess for underlying mass. Cristofer De Santiago MD Assessment and Plan Assessment and Plan PNA ARDS Acute VDRF HIgh fever despite of appropriate abx coverage - new infx - ? drug reaction - 2/2 ARDS Abx associated diarrhea, C.diff negatve Critically ill, unstable REC's: cont current abx dc zyvox chk procalcitonine fu repeat blood and sputum clx - add micafungin - chk UA, C+S Discussed Condition With RN Dr Israel Patel,Mariana Yost MD Nov 10, 2016 13:17
[2016-11-10] MEDS: RESP: ALBUTEROL 2.5 MG/3 ML NEB (PRN) NEB (20:40)
[2016-11-10] MEDS: DILTIAZEM INJ 125 MG in SODIUM CHLORIDE 0.9% INJ 100 ML IV PRN (22:00)
[2016-11-11] VITALS (18 sets, daily range): BP systolic 95–123; BP diastolic 67–75; PULSE 85–160; RESP 18–23; TEMP 97.3–100.6; O2SAT 89–97
[2016-11-11] MEDS ORDERED: DILTIAZEM HCL 25 MG/5 ML VIAL IV ONE (00:15)
[2016-11-11] MEDS: INSULIN DETEMIR 100 UNITS/ML VIAL SQ SCH ×3 (00:24→23:59)
[2016-11-11] MEDS: PIPERACIL-TAZO 4.5 GM PREMIX 100 ML IV SCH ×4 (00:25→20:05)
[2016-11-11] MEDS ORDERED: MICAFUNGIN INJ 150 MG in SODIUM CHLORIDE 0.9% INJ 100 ML IV SCH (01:00)
[2016-11-11] MEDS ORDERED: AMIODARONE INJ 150 MG in DEXTROSE 5% IN WATER 100ML INJ 100 ML IV ONE ×2 (01:18)
[2016-11-11] MEDS: AMIODARONE INJ 450 MG in DEXTROSE 5% IN WATE(EXCEL) INJ 241 ML IV SCH ×4 (01:41→11:01)
[2016-11-11] MEDS: MICAFUNGIN INJ 150 MG in SODIUM CHLORIDE 0.9% INJ 100 ML IV SCH (01:42)
[2016-11-11 01:51] LABS: BACTERIA, URINE OCC /hpf; BLOOD, URINE MOD (NEG); GLUCOSE,URINE 300 mg/dL (NEG); KETONE, URINE NEG (NEG); NITRITE,URINE NEG (NEG); URINE COLOR YELLOW (YELLW/STRAW)
[2016-11-11 01:52] LABS: COMMENT (UR) CATH-CULTURE IND; CULTURE IF INDICATED CATH CULTURE IND
[2016-11-11] MEDS: PROPOFOL 1000 MG/100 ML IV PRN ×7 (02:40→23:57)
[2016-11-11] MEDS: INSULIN NovoLIN REGULAR SUPPLEMENTAL SCALE SQ SCH ×7 (03:09→23:59)
[2016-11-11 05:05] LABS: AUTOMATED NEUTROPHIL # 13.4 TH/MM3 (1.8-7.7); BASOPHIL # 0.1 TH/MM3 (0-0.2); BASOPHIL % 0.6 % (0.0-2.0); EOSINOPHIL # 0.4 TH/MM3 (0-0.4); EOSINOPHIL % 2.4 % (0.0-4.0); HEMATOCRIT 46.8 % (39.0-51.0); LYMPH % 8.8 % (9.0-44.0); LYMPHOCYTE # 1.5 TH/MM3 (1.0-4.8); MEAN CELL VOLUME 95.3 FL (80.0-100.0); MEAN CORPUSCULAR HEMOGLOBIN 30.7 PG (27.0-34.0); MEAN CORPUSCULAR HGB CONC 32.2 % (32.0-36.0); MONO % 8.1 % (0.0-8.0); NEUT % 80.1 % (16.0-70.0); PLATELET COUNT 176 TH/MM3 (150-450); RED BLOOD COUNT 4.91 MIL/MM3 (4.50-5.90); RED CELL DISTRIBUTION WIDTH 13.8 % (11.6-17.2); WHITE BLOOD COUNT 16.7 TH/MM3 (4.0-11.0)
[2016-11-11 05:13] LABS: APTT (PATIENT) 48.6 SEC (24.3-30.1)
[2016-11-11] MEDS: hydrALAZINE HCL 25 MG TAB PO SCH ×3 (05:14→20:05)
[2016-11-11] MEDS: HEPARIN-D5W 25,000 U/250 ML 250 ML IV PRN ×2 (05:14→20:02)
[2016-11-11] MEDS: DILTIAZEM HCL 60 MG TAB PO SCH ×4 (05:15→23:58)
[2016-11-11] MEDS: ISOSORBIDE DINITRATE 10 MG TAB PO SCH ×3 (05:15→20:05)
[2016-11-11] MEDS: PROPRANOLOL HCL 40 MG TAB PO SCH (05:15)
[2016-11-11] MEDS: cloNIDine HCL 0.3 MG TAB PO SCH ×3 (05:15→20:05)
[2016-11-11 05:20] LABS: HEMO FLAGS AUTO DIFF
[2016-11-11 05:29] LABS: ALT (GPT) 248 U/L (12-78); ANION GAP 7 MEQ/L (5-15); AST (GOT) 44 U/L (15-37); BICARBONATE 34.3 MEQ/L (21.0-32.0); BLOOD UREA NITROGEN 47 MG/DL (7-18); CHLORIDE 99 MEQ/L (98-107); GLOMERULAR FILTRATION RATE 121 ML/MIN (>89); MAGNESIUM 2.6 MG/DL (1.5-2.5); POTASSIUM 3.1 MEQ/L (3.5-5.1); SODIUM (NA) 140 MEQ/L (136-145)
[2016-11-11 05:30] LABS: ALKALINE PHOSPHATASE 46 U/L (45-117); TOTAL BILIRUBIN ADULT 0.8 MG/DL (0.2-1.0)
[2016-11-11] MEDS: POTASSIUM CHLOR 20 MEQ PREMIX 100 ML IV PRN ×4 (05:38→13:00)
[2016-11-11] MEDS: DILTIAZEM INJ 125 MG in SODIUM CHLORIDE 0.9% INJ 100 ML IV PRN ×3 (05:41→23:57)
[2016-11-11] MEDS: RESP: BUDESONIDE 0.5 MG/2 ML NEB NEB SCH ×2 (07:10→20:13)
[2016-11-11] MEDS: methylPREDNISolone SOD SUCC 40 MG/1 ML VIAL IV SCH (08:22)
[2016-11-11] MEDS: FAMOTIDINE 20 MG/2 ML VIAL IV PUSH SCH ×2 (08:23→20:05)
[2016-11-11] MEDS: BENEPROTEIN POWDER 1 PACK G-TUBE SCH ×3 (08:23→17:33)
[2016-11-11] MEDS: CHLORHEXIDINE 0.12% (ORAL KIT) 15 ML CUP MT SCH ×2 (08:30→20:00)
[2016-11-11] MEDS: SODIUM CHLORIDE 0.9% FLUSH 10 ML FLUSH SCH ×2 (08:31→20:06)
[2016-11-11] MEDS: ARTIFICIAL TEARS OPTH OINT 3.5 APPLIC/3.5 GM TUBO EACH EYE SCH ×2 (08:33→20:06)
[2016-11-11 08:51] LABS: BANDS 15 % (0-6); EOSINOPHILS 1 % (0-4); NEUTROPHIL # MANUAL DIFF 14.2 TH/MM3 (1.8-7.7); PLATELET ESTIMATE SMEAR NORMAL (NORMAL); PLATELET MORPHOLOGY NORMAL (NORMAL); POLYS (SEG NEUTROPHILS) 70 % (16-70); SCAN/DIFF FINAL DIFF MANUAL; WBC DIFF SAMPLE 100
[2016-11-11] MEDS: SODIUM CHLORIDE 0.9% FLUSH 10 ML FLUSH IVF SCH (09:00)
--- NOTE | 2016-11-11 09:30 | HHI.CCPN ---
Subjective Remarks/Hospital Course 55-year-old very pleasant gentleman with past medical history of COPD, and hypertension presents complaining of shortness of breath and nausea, generalized fatigue and chills for 2 days. He thinks it has been from being out in the heat. Denies any fever, chest pain, vomiting, abdominal pain, focal weakness or numbness. In the emergency department his saturation was in mid 80s on arrival with auditory wheezing and tachypnea. He was placed on 4 liters of NC and saturating in the low 90. He does not use oxygen at home. He also mentioned 2 days ago, he came home and was sitting in a chair and was taking his shoes off when he passed out. States he woke up and was still on the chair. This has never happen before. 10/25: Patient intubated secondary to increasing oxygen requirements, altered mental status. Discussed with son. Somewhat hypertensive post intubation. 10/26: Placed on rotaprone bed last evening. Flolan initiated. Saturations improved. Afebrile. Remains on Nimbex drip. 10/27: T max 99.7. Tolerated on not prone position 2 hours yesterday. Tolerating trickle feeds. FiO2 down to 55% 10/28: Tmax 99.9. When unprone for chest x-ray this a.m. desaturated. Currently on 90% FiO2. Actually hypertensive. No bowel movements. Remains paralyzed 10/29: Remains intubated sedated on continuous Prone therapy Except for chest x- ray. Fever 100.8. Panculture requested. Zyvox added. Continue IV sedation with propofol and fentanyl and Versed, neuromuscular paralysis with Nimbex 10/30: Prone cycle changed to 8 hr prone, 1 hr supine from 10/29. Due to hypoxia will continue with same cycle today. Chest x-ray remains unchanged. Patient remains severely hypoxemic FiO2 at 75% PEEP at 16. WBC count worsened to 18. Remains neuromuscularly paralyzed. 10/31: Patient remains critically ill but stable. Oxygen saturation 95% on 55 of FiO2 and PEEP of 16. Reduce PEEP to 14, FiO2 to 50% and start weaning Flolan. Increase supine time to 4 hours, reduce Prone time to 6 hours 11/01: Patient remains intubated sedated critically ill on neuromuscular paralysis. FiO2 reduced to 50, I will attempt PEEP wean gradually to 12 today. Prone/supine cycles will be changed to 6 hours each 11/02: FiO2 remains at 50%, PEEP reduced from 14 to 12 today, TV increased to 600 and RR to 20, in anticipation of discontinuing prone therapy, which will be DCd today. Off Flolan for 2 days 11/03: off pronation. fio2 up to 65% , peep 12. agitation causing desaturation. minimal improvements. 11/04: good diuresis yesterday, but despite that, fio2 persists at 65% and spo2 decreasing to 91% today. no real improvements and some worsening of pulmonary function despite ongoing aggressive therapies. still not safe for SBT given hypoxia. also severely hypertensive this morning. 11/05: continues to diurese well and Cr still at baseline. fio2 at 90% however, and no clinical improvements in mental status or hypoxia. still unsafe for SBT given hypoxemia. off pathway. hypertension under much better control. poor neuro status is concerning. 11/06: Remains severely hypoxemic. FiO2 was 100% PEEP 14. I reduce FiO2 to 90% after increasing PEEP to 16. Developed a flutter with RVR overnight, currently on Cardizem drip. Unable to do SBT due to very high settings 11/07: Remains hypoxemic and but able to wean FiO2 down to 80% with PEEP of 16. Remains unresponsive on sedation. Unable to trach due to his high vent settings and high FiO2. Remains on Cardizem and 15 mg per hour, with rate controlled a flutter. We'll start by mouth Cardizem in an attempt to wean IV Cardizem 11/08: Remains critically ill hypoxic but FiO2 now weaned to 60%, PEEP remains at 16. Very heavily sedated no withdrawal to pain. Will hold all continuos sedation. Sputum culture with Klebsiella sensitive to Rocephin. A flutter persistent, will start IV heparin 11/09 Patient is sedated with Diprivan and intubated, On Cardizem drip 15mg/hr for Aflutter. Heparin drip stated yesterday. 11/10 Patient remains sedated and intubated. On Heparin drip. Persistent fever with Tmax 102.5. ETT was replaced yesterday. 11/11 Patient was placed on Cardizem and amio drips overnight for Afib with RVR. Sedated with Diprivan and intubated. On Heparin drip. T;99.3 this morning. Objective Vital Signs Date Time Temp Pulse Resp B/P (MAP) Pulse Ox O2 Delivery O2 Flow Rate FiO2 11/11/16 07:12 89 60 11/11/16 06:00 110 11/11/16 05:41 110/68 11/11/16 04:00 99.3 20 Intake and Output 11/11/16 11/11/16 11/12/16 08:00 16:00 00:00 Intake Total 1545 ml Output Total 650 ml Balance 895 ml Result Diagram: 11/11/16 0440 11/11/16 0440 Other Results Laboratory Tests Test 11/10/16 09:30 11/10/16 11:35 11/11/16 01:15 11/11/16 04:40 Stool C. difficile Toxin (PCR) NEGATIVE Stl C. difficile Toxin Epiderm 027 PRESUMPTIVE NEGATIVE Activated Partial Thromboplast Time 45.5 SEC 48.6 SEC Urine Color YELLOW Urine Turbidity HAZY Urine pH 6.0 Urine Specific [place] 1.039 Urine Protein 30 mg/dL Urine Glucose (UA) 300 mg/dL Urine Ketones NEG mg/dL Urine Occult Blood MOD Urine Nitrite NEG Urine Bilirubin NEG Urine Urobilinogen LESS THAN 2.0 MG/DL Urine Leukocyte Esterase LARGE Urine RBC /hpf Urine WBC 104 /hpf Urine WBC Clumps RARE Urine Amorphous Sediment RARE Urine Bacteria OCC /hpf Microscopic Urinalysis Comment CATH-CULTURE IND White Blood Count 16.7 TH/MM3 Red Blood Count 4.91 MIL/MM3 Hemoglobin 15.1 GM/DL Hematocrit 46.8 % Mean Corpuscular Volume 95.3 FL Mean Corpuscular Hemoglobin 30.7 PG Mean Corpuscular Hemoglobin Concent 32.2 % Red Cell Distribution Width 13.8 % Platelet Count 176 TH/MM3 Mean Platelet Volume 9.5 FL Neutrophils (%) (Auto) 80.1 % Lymphocytes (%) (Auto) 8.8 % Monocytes (%) (Auto) 8.1 % Eosinophils (%) (Auto) 2.4 % Basophils (%) (Auto) 0.6 % Neutrophils # (Auto) 13.4 TH/MM3 Lymphocytes # (Auto) 1.5 TH/MM3 Monocytes # (Auto) 1.4 TH/MM3 Eosinophils # (Auto) 0.4 TH/MM3 Basophils # (Auto) 0.1 TH/MM3 CBC Comment AUTO DIFF Differential Total Cells Counted 100 Neutrophils % (Manual) 70 % Band Neutrophils % 15 % Lymphocytes % 9 % Monocytes % 5 % Eosinophils % 1 % Neutrophils # (Manual) 14.2 TH/MM3 Differential Comment FINAL DIFF MANUAL Platelet Estimate NORMAL Platelet Morphology Comment NORMAL Red Cell Morphology Comment NORMAL Blood Urea Nitrogen 47 MG/DL Creatinine 0.68 MG/DL Random Glucose 339 MG/DL Total Protein 6.1 GM/DL Albumin 2.4 GM/DL Calcium Level 7.9 MG/DL Phosphorus Level 2.6 MG/DL Magnesium Level 2.6 MG/DL Alkaline Phosphatase 46 U/L Aspartate Amino Transf (AST/SGOT) 44 U/L Alanine Aminotransferase (ALT/SGPT) 248 U/L Total Bilirubin 0.8 MG/DL Sodium Level 140 MEQ/L Potassium Level 3.1 MEQ/L Chloride Level 99 MEQ/L Carbon Dioxide Level 34.3 MEQ/L Anion Gap 7 MEQ/L Estimat Glomerular Filtration Rate 121 ML/MIN Procalcitonin 0.16 ng/mL Imaging Last Impressions Chest X-Ray 11/09/16 0600 Signed Impressions: Service Date/Time: Wednesday, November 09, 2016 04:08 - CONCLUSION: 1. Significant improvement in aeration in the left lung base with resolving consolidation/effusion. 2. While there is a persistent right basilar consolidation/effusion, this too shows interval improvement. 3. Endotracheal tube is somewhat shallow likely thoracic inlet. This can probably be advanced a few centimeters. Life support tubes are otherwise stable in position. Jorge Jolly MD Lower Extremity Ultrasound 11/09/16 0000 Signed Impressions: Service Date/Time: Wednesday, November 09, 2016 14:13 - CONCLUSION: Normal examination. Jayson Manning MD Liver Ultrasound 11/09/16 0000 Signed Impressions: Service Date/Time: Wednesday, November 09, 2016 13:58 - CONCLUSION: Sono dense liver without duct dilatation. 4 mm common duct. Ward Kim MD FACR Chest CT 11/06/16 0000 Signed Impressions: Service Date/Time: Sunday, November 06, 2016 11:24 - CONCLUSION: 1. Dense bilateral posterior lower lobe airspace consolidation consistent with aspiration versus less likely pneumonia. 2. Linear consolidation in the right middle lobe consistent with atelectasis versus aspiration. 3. Trace left and small right pleural effusions. 4. Support lines and tubes in good position. 5. Prominent coronary artery calcifications. Nico Vaughan MD Head CT 11/05/16 0000 Signed Impressions: Service Date/Time: Saturday, November 05, 2016 21:43 - CONCLUSION: 1. No acute intracranial abnormalities. Pansinus fluid opacification. Cristofer De Santiago MD Abdomen X-Ray 10/29/16 0600 Signed Impressions: Service Date/Time: Saturday, October 29, 2016 04:41 - CONCLUSION: Nonspecific , nonobstructive bowel gas pattern. No evidence of free air. Jayson Taylor MD Carotid Artery Ultrasound 10/25/16 0000 Signed Impressions: Service Date/Time: September 08:27 - CONCLUSION: Mild to moderate plaque in both carotid systems with less than 40%% diameter stenosis by velocity criteria. Jhonathan Dietz MD CT Angiography 10/25/16 0000 Signed Impressions: Service Date/Time: September 06:12 - CONCLUSION: 1. Negative for pulmonary embolism. 2. There is a fairly large area of masslike consolidation in the medial right lung involving posterior segment right upper lobe and medial aspect of right lower lobe. There is associated right hilar and mediastinal adenopathy measuring up to 2.1 cm. Differential diagnosis includes pneumonia or underlying lung neoplasm. Close followup imaging recommended after treatment for pneumonia, to assess for underlying mass. Cristofer De Santiago MD Objective Remarks GENERAL: 55-year-old male, sedated and intubated SKIN: Warm and dry. HEAD: Normocephalic. EYES: No scleral icterus. ENT: Orotracheally intubated NECK: Limited due to morbid obesity CARDIOVASCULAR: Atrial flutter with controlled rate. RESPIRATORY: B/l equal air entry GASTROINTESTINAL: Abdomen soft, obese. No organomegaly by limited exam MUSCULOSKELETAL: Nonpitting bilateral lower extremity edema. NEURO EXAM: Sedated A/P Assessment and Plan Assessment: morbidly obese male with Severe hypoxic respiratory failure, multilobar pneumonia, not improving, persistently hypoxic and not stable for SBT trials yet. off pathway. if we withdraw or even lessen full mechanical support, he would . remains critically ill. Likely will require tracheostomy and longer-term ventilation, but not stable for trach. Neuro/Psych: Syncope s/p Neuromuscular paralysis for Prone therapy Agitated Delirium Metabolic Encephalopathy On Diprivan infusion for sedation and vent synchrony. Daily sedation vacation prn Dilaudid for breakthrough. Haldol 5mg iv q4h prn for agitation. Head CT on admission revealed no acute intracranial findings, CT head 11/05- no acute findings. opacification of sinuses. Carotid ultrasound less than 50% stenosis bilaterally EEG 11/09: severe encephalopathy CV: Atrial fib/ flutter with RVR Hypertension- On Cardizem drip 10mg/r and Amio drip for Afib with RVR. HR now 96. PO Cardizem 60 mg PO q6hr, Wean off Amio drip given elevated LFT's. Place on Lopressor 50mg Q12, d/c Propranolol. Continue with hydralazine 25 mg 3 times a day, Clonidine 0.3mg Q8 and Isordil 10 mg 3 times a day for hypertension IV heparin for anticoagulation Echo 10/25 EF 60-65% Resp: Acute hypoxemic Respiratory failure - severe and persistent. Severe ARDS COPD exacerbation Pneumonia most likely community-acquired Obesity hypoventilation syndrome Tobacco use disorder CT pulmonary angio revealed no pulmonary embolus. Masslike consolidation in the posterior right upper lobe and medial right lower lobe. Lymphadenopathy to 1 cm right hilum and subcarinal. Atelectasis left lower lobe. PRVC 18, TV 700, IT:1.2, PEEP:15, FIO2 60% to keep Saturation >88%. Will Need trach once PEEP <10, FiO2<50% Decrease PEEP:12 Discontinued Prone therapy 11/02/16. Ventilator bundle, Albuterol/ipratropium every 4 hours with albuterol every 2 hours when necessary dyspnea Budesonide 0.5 mg aerosols twice a day. Solu-Medrol 40 mg IV daily Pulmonary/Dr. Wynne following Patient has been intubated since 10/25 will need trach once his O2 requirements is better GI: Morbid Obesity Elevated ALT Monitor LFT, US liver: No ductal dilatation Resume tube feeds-Vital high protein 1.5@40ml/hr Famotidine 20 milligrams IV twice a day for GI prophylaxis Docusate sodium 100 mg twice a day, senna 8.6 mg twice a day, polyethylene glycol 3350 17 g twice a day and lactulose 30 cc 4 times a day for bowel regimen : Monitor renal function, I/O's, electrolytes replacement per protocol. Endo: Hyperglycemia- poorly controlled. SSI to q4h, high dose. Levemir to 30 q12. Taper IV steroids which should help with glycemic control. Heme: Leukocytosis Monitor CBC daily ID: Severe sepsis Pneumonia s/p Rocephin 11/02-11/09 for Enterobacter pneumonia. Repeat sputum Klebsiella sensitive to Rocephin 10/29/16-Enterobacter in sputum, 11/06/16 sputum- Klebsiella Urine Legionella and pneumococcal antigens negative and influenza negative Follow up on BC from 11/08, Santiago replaced 11/09. C-diff PCR is negative Continue Zosyn and Micafungin. ID is following-Dr. Patel Access RUE PICC placed 11/05 Prophylaxis - GI, famotidine - DVT - IV heparin 11/09 Doppler US LE negative for DVT Critical Care: The total critical care time was 30 minutes. Time to perform other separately billable procedures was not included in the critical care time. Patient remains critically ill with severe hypoxemic respiratory failure ARDS and pneumonia., severe Sepsis. Requiring very high ventilator settings to maintain his oxygen saturation. Agitated delirium and encephalopathy complicating multi-organ system dysfunction and preventing further improvements. Chepe Carney MD Nov 11, 2016 09:30
[2016-11-11] MEDS: SODIUM CHLORIDE 0.9% FLUSH 10 ML FLUSH IV FLUSH SCH (09:43)
[2016-11-11 11:09] LABS: BLOOD GAS BASE EXCESS 6.8 mmol/L (-2-2); BLOOD GAS CARBOXYHEMOGLOBIN 0.9 % (0-4); BLOOD GAS HCO3 31 mmol/L (22-26); BLOOD GAS METHEMOGLOBIN 1.2 % (0-2); BLOOD GAS O2 HGB SATURATION 87 % (90-100); BLOOD GAS OXYGEN CONTENT 19.1 Vol % (12.0-20.0); BLOOD GAS PCO2 49 mmHg (38-42); BLOOD GAS PO2 58 mmHg (61-120); BLOOD GAS TOTAL HGB 15.6 G/DL (12.0-16.0); TEMP CORR TO 98.6
[2016-11-11 11:10] LABS: CRITICAL VALUE YES
[2016-11-11 11:11] LABS: DRAW SITE RT RADIAL; FIO2 60 %; NUMBER OF ARTERIAL PUNCTURES 1; STAT NO; ULNAR PULSE PRESENT
[2016-11-11] MEDS: METOPROLOL TARTRATE 50 MG TAB PO SCH ×2 (11:18→20:05)
[2016-11-11] MEDS ORDERED: PHARMACY ORDERED LAB ONE (13:45)
[2016-11-11] MEDS ORDERED: Vancomycin Consult Pharmacy 1 EA OTHER SCH (14:00)
--- NOTE | 2016-11-11 14:13 | HHI.IDPN ---
Subjective Subjective Remarks fever improved and was afebrile today untill last temp of 100.6 He remains on quite high O2 requirements Antibiotics micafungin zosyn vancomycin Allergies: Coded Allergies: No Known Allergies (Unverified , 10/25/16) Objective . Vital Signs Date Time Temp Pulse Resp B/P (MAP) Pulse Ox O2 Delivery O2 Flow Rate FiO2 11/11/16 12:00 85 11/11/16 12:00 100.6 86 21 109/73 (85) 92 11/11/16 12:00 80 11/11/16 12:00 85 123/76 11/11/16 11:01 89 114/80 11/11/16 10:00 90 11/11/16 08:00 100 11/11/16 08:00 97.8 85 19 108/71 (83) 94 11/11/16 08:00 85 11/11/16 07:12 89 60 11/11/16 06:00 110 11/11/16 05:41 133 110/68 11/11/16 04:00 99.3 160 20 123/75 (91) 95 11/11/16 04:00 160 11/11/16 04:00 90 11/11/16 03:51 95 60 11/11/16 02:00 145 11/11/16 01:41 157 114/69 11/11/16 01:41 157 114/69 11/11/16 01:17 94 60 11/11/16 00:00 99.6 158 23 95/73 (80) 92 11/11/16 00:00 158 11/11/16 00:00 90 11/10/16 23:10 92 60 11/10/16 22:00 144 11/10/16 22:00 155 124/77 11/10/16 20:40 94 60 11/10/16 20:00 125 11/10/16 20:00 90 11/10/16 20:00 100.3 125 18 139/91 (107) 93 11/10/16 18:00 135 11/10/16 17:05 91 80 11/10/16 16:00 130 11/10/16 16:00 80 11/10/16 16:00 102.6 102 19 96/66 (76) 98 11/10/16 14:00 143 11/11/16 11/11/16 11/12/16 15:00 23:00 07:00 Intake Total 150 ml Balance 150 ml Intake IV Total 150 ml . Laboratory Tests Test 11/10/16 04:00 11/11/16 04:40 White Blood Count 14.5 TH/MM3 16.7 TH/MM3 Red Blood Count 4.73 MIL/MM3 4.91 MIL/MM3 Hemoglobin 14.5 GM/DL 15.1 GM/DL Hematocrit 45.0 % 46.8 % Mean Corpuscular Volume 95.0 FL 95.3 FL Mean Corpuscular Hemoglobin 30.6 PG 30.7 PG Mean Corpuscular Hemoglobin Concent 32.2 % 32.2 % Red Cell Distribution Width 14.2 % 13.8 % Platelet Count 223 TH/MM3 176 TH/MM3 Mean Platelet Volume 8.7 FL 9.5 FL CBC Comment AUTO DIFF AUTO DIFF Differential Total Cells Counted 100 100 Neutrophils % (Manual) 71 % 70 % Lymphocytes % 9 % 9 % Monocytes % 19 % 5 % Neutrophils # (Manual) 10.4 TH/MM3 14.2 TH/MM3 Metamyelocytes 1 % Differential Comment FINAL DIFF MANUAL FINAL DIFF MANUAL Platelet Estimate NORMAL NORMAL Platelet Morphology Comment NORMAL NORMAL Stomatocytes 1+ Neutrophils (%) (Auto) 80.1 % Lymphocytes (%) (Auto) 8.8 % Monocytes (%) (Auto) 8.1 % Eosinophils (%) (Auto) 2.4 % Basophils (%) (Auto) 0.6 % Neutrophils # (Auto) 13.4 TH/MM3 Lymphocytes # (Auto) 1.5 TH/MM3 Monocytes # (Auto) 1.4 TH/MM3 Eosinophils # (Auto) 0.4 TH/MM3 Basophils # (Auto) 0.1 TH/MM3 Band Neutrophils % 15 % Eosinophils % 1 % Red Cell Morphology Comment NORMAL Laboratory Tests Test 11/10/16 04:00 11/10/16 07:25 11/11/16 04:40 Blood Urea Nitrogen 49 MG/DL 47 MG/DL Creatinine 0.95 MG/DL 0.68 MG/DL Random Glucose 244 MG/DL 339 MG/DL Total Protein 6.1 GM/DL 6.1 GM/DL Albumin 2.3 GM/DL 2.4 GM/DL Calcium Level 8.0 MG/DL 7.9 MG/DL Phosphorus Level 2.4 MG/DL 2.6 MG/DL Magnesium Level 2.6 MG/DL 2.6 MG/DL Alkaline Phosphatase 45 U/L 46 U/L Aspartate Amino Transf (AST/SGOT) 121 U/L 44 U/L Alanine Aminotransferase (ALT/SGPT) 225 U/L 248 U/L Total Bilirubin 0.7 MG/DL 0.8 MG/DL Sodium Level 144 MEQ/L 140 MEQ/L Potassium Level 3.4 MEQ/L 3.1 MEQ/L Chloride Level 103 MEQ/L 99 MEQ/L Carbon Dioxide Level 33.0 MEQ/L 34.3 MEQ/L Anion Gap 8 MEQ/L 7 MEQ/L Estimat Glomerular Filtration Rate 82 ML/MIN 121 ML/MIN Ammonia 23 MCMOL/L Procalcitonin 0.16 ng/mL Microbiology Date/Time Source Procedure Growth Status 11/10/16 11:40 Blood Peripheral Aerobic Blood Culture - Preliminary NO GROWTH IN 1 DAY Resulted 11/10/16 11:40 Blood Peripheral Anaerobic Blood Culture - Preliminary NO GROWTH IN 1 DAY Resulted 11/10/16 11:35 Blood Peripheral Aerobic Blood Culture - Preliminary NO GROWTH IN 1 DAY Resulted 11/10/16 11:35 Blood Peripheral Anaerobic Blood Culture - Preliminary NO GROWTH IN 1 DAY Resulted 11/08/16 20:40 Blood Peripheral Aerobic Blood Culture - Preliminary NO GROWTH IN 3 DAYS Resulted 11/08/16 20:40 Blood Peripheral Anaerobic Blood Culture - Preliminary NO GROWTH IN 3 DAYS Resulted 11/08/16 20:33 Blood Peripheral Aerobic Blood Culture - Preliminary NO GROWTH IN 3 DAYS Resulted 11/08/16 20:33 Blood Peripheral Anaerobic Blood Culture - Preliminary NO GROWTH IN 3 DAYS Resulted 11/08/16 14:15 Stool Stool Stool Occult Blood ([facility]) - Final HEMOCCULT NEGATIVE Complete 11/10/16 05:45 Sputum Endotracheal Gram Stain - Final Resulted 11/10/16 05:45 Sputum Endotracheal Sputum Culture Pending Resulted 11/11/16 01:15 Urine Catheterized Urine Urine Culture Pending Received Imaging Last Impressions Chest X-Ray 11/09/16 0600 Signed Impressions: Service Date/Time: Wednesday, November 09, 2016 04:08 - CONCLUSION: 1. Significant improvement in aeration in the left lung base with resolving consolidation/effusion. 2. While there is a persistent right basilar consolidation/effusion, this too shows interval improvement. 3. Endotracheal tube is somewhat shallow likely thoracic inlet. This can probably be advanced a few centimeters. Life support tubes are otherwise stable in position. Jorge Jolly MD Lower Extremity Ultrasound 11/09/16 Signed Impressions: Service Date/Time: Wednesday, November 09, 2016 14:13 - CONCLUSION: Normal examination. Jayson Manning MD Liver Ultrasound 11/09/16 0000 Signed Impressions: Service Date/Time: Wednesday, November 09, 2016 13:58 - CONCLUSION: Sono dense liver without duct dilatation. 4 mm common duct. Ward Kim MD FACR Chest CT 11/06/16 Signed Impressions: Service Date/Time: Sunday, November 06, 2016 11:24 - CONCLUSION: 1. Dense bilateral posterior lower lobe airspace consolidation consistent with aspiration versus less likely pneumonia. 2. Linear consolidation in the right middle lobe consistent with atelectasis versus aspiration. 3. Trace left and small right pleural effusions. 4. Support lines and tubes in good position. 5. Prominent coronary artery calcifications. Nico Vaughan MD Head CT 11/05/16 Signed Impressions: Service Date/Time: Saturday, November 05, 2016 21:43 - CONCLUSION: 1. No acute intracranial abnormalities. Pansinus fluid opacification. Cristofer De Santiago MD Abdomen X-Ray 10/29/16 0600 Signed Impressions: Service Date/Time: Saturday, October 29, 2016 04:41 - CONCLUSION: Nonspecific , nonobstructive bowel gas pattern. No evidence of free air. Jayson Talyor MD Carotid Artery Ultrasound 10/25/16 0000 Signed Impressions: Service Date/Time: September 08:27 - CONCLUSION: Mild to moderate plaque in both carotid systems with less than 40%% diameter stenosis by velocity criteria. Jhonathan Dietz MD CT Angiography 10/25/16 0000 Signed Impressions: Service Date/Time: September 06:12 - CONCLUSION: 1. Negative for pulmonary embolism. 2. There is a fairly large area of masslike consolidation in the medial right lung involving posterior segment right upper lobe and medial aspect of right lower lobe. There is associated right hilar and mediastinal adenopathy measuring up to 2.1 cm. Differential diagnosis includes pneumonia or underlying lung neoplasm. Close followup imaging recommended after treatment for pneumonia, to assess for underlying mass. Cristofer De Santiago MD Physical Exam CONSTITUTIONAL/GENERAL: This is a morbidly obese patient, sedated int'd on vent TUBES/LINES/DRAINS: SKIN: No jaundice, rashes, or lesions. Skin temperature appropriate. Not diaphoretic. HEAD: Atraumatic. Normocephalic. EYES: Pupils equal and round and reactive. Extraocular motions intact. No scleral icterus. No injection or drainage. Fundi not examined. ENT: Hearing not tested . Nose without bleeding or purulent drainage. Throat without visible erythema, exudates, masses, or lesions. NECK: Trachea midline. Supple, nontender. CARDIOVASCULAR: Regular rate and rhythm without murmurs, gallops, or rubs. No JVD. Peripheral pulses symmetric. RESPIRATORY/CHEST: Symmetric, unlabored respirations. Clear to auscultation. Breath sounds equal bilaterally. No wheezes, rales, or rhonchi. GASTROINTESTINAL: Abdomen soft, non-tender, nondistended. No hepato-splenomegaly , or palpable masses. No guarding. Bowel sounds present. [place] in [address],[place] with liquid brown stool GENITOURINARY: Without palpable bladder distension. Santiago catheter in place with somewhat cloudy urine MUSCULOSKELETAL: Extremities without clubbing, cyanosis, + 1 edema. LYMPHATICS: No palpable cervical or supraclavicular adenopathy. NEUROLOGICAL: Sedated. nresponsive PSYCHIATRIC: unable to assess Assessment & Plan Remarks PNA ARDS Acute VDRF HIgh fever despite of appropriate abx coverage: fever significantly improved - new infx - ? drug reaction - 2/2 ARDS - procalcitonine is quite low Abx associated diarrhea, C.diff negative Critically ill, unstable Abnormal UA, clx P REC's: cont current abx cont vancomycin, zosyn fu P blood and urine and sputum clx fu repeat blood and sputum clx -cont micafungin Discussed Condition With Mariana De Guzman MD Nov 11, 2016 14:13
[2016-11-11] MEDS: VANCOMYCIN INJ 2,000 MG in SODIUM CHLORID 0.9% 500 ML INJ 500 ML IV SCH (17:32)
[2016-11-11] MEDS: CHLORHEXIDINE GLUCONATE 2 % 1 PACK (2 CLOTHS) TOP SCH (19:57)
[2016-11-11] MEDS: RESP: ALBUTEROL 2.5 MG/3 ML NEB (PRN) NEB (20:13)
[2016-11-12] VITALS (21 sets, daily range): BP systolic 99–128; BP diastolic 58–94; PULSE 98–156; RESP 18–23; TEMP 98.8–100.4; O2SAT 86–95
[2016-11-12] MEDS: PIPERACIL-TAZO 4.5 GM PREMIX 100 ML IV SCH ×3 (00:36→13:07)
[2016-11-12] MEDS: MICAFUNGIN INJ 150 MG in SODIUM CHLORIDE 0.9% INJ 100 ML IV SCH (00:36)
[2016-11-12] MEDS: INSULIN NovoLIN REGULAR SUPPLEMENTAL SCALE SQ SCH ×6 (03:03→23:44)
[2016-11-12] MEDS: RESP: ALBUTEROL 2.5 MG/3 ML NEB (PRN) NEB (03:42)
[2016-11-12 03:58] LABS: AUTOMATED NEUTROPHIL # 12.3 TH/MM3 (1.8-7.7); BASOPHIL # 0.1 TH/MM3 (0-0.2); BASOPHIL % 0.5 % (0.0-2.0); EOSINOPHIL # 0.1 TH/MM3 (0-0.4); EOSINOPHIL % 0.5 % (0.0-4.0); HEMATOCRIT 43.9 % (39.0-51.0); HEMO FLAGS DIFF FINAL; LYMPH % 6.4 % (9.0-44.0); LYMPHOCYTE # 0.9 TH/MM3 (1.0-4.8); MEAN CELL VOLUME 94.6 FL (80.0-100.0); MEAN CORPUSCULAR HEMOGLOBIN 30.4 PG (27.0-34.0); MEAN CORPUSCULAR HGB CONC 32.2 % (32.0-36.0); MONO % 6.2 % (0.0-8.0); NEUT % 86.4 % (16.0-70.0); PLATELET COUNT 152 TH/MM3 (150-450); RED BLOOD COUNT 4.65 MIL/MM3 (4.50-5.90); RED CELL DISTRIBUTION WIDTH 14.1 % (11.6-17.2); WHITE BLOOD COUNT 14.2 TH/MM3 (4.0-11.0)
[2016-11-12 04:02] LABS: ALT (GPT) 168 U/L (12-78); ANION GAP 6 MEQ/L (5-15); AST (GOT) 23 U/L (15-37); BICARBONATE 34.3 MEQ/L (21.0-32.0); BLOOD UREA NITROGEN 40 MG/DL (7-18); CHLORIDE 102 MEQ/L (98-107); GLOMERULAR FILTRATION RATE 111 ML/MIN (>89); SODIUM (NA) 142 MEQ/L (136-145)
[2016-11-12 04:04] LABS: ALKALINE PHOSPHATASE 42 U/L (45-117); TOTAL BILIRUBIN ADULT 0.8 MG/DL (0.2-1.0)
[2016-11-12 04:11] LABS: APTT (PATIENT) 32.7 SEC (24.3-30.1)
[2016-11-12] MEDS: PROPOFOL 1000 MG/100 ML IV PRN ×6 (04:21→22:24)
[2016-11-12] MEDS: DILTIAZEM HCL 60 MG TAB PO SCH ×4 (05:04→23:37)
[2016-11-12] MEDS: ISOSORBIDE DINITRATE 10 MG TAB PO SCH ×3 (05:04→19:41)
[2016-11-12] MEDS: hydrALAZINE HCL 25 MG TAB PO SCH (05:04)
[2016-11-12] MEDS: cloNIDine HCL 0.3 MG TAB PO SCH ×3 (05:04→19:41)
[2016-11-12] MEDS: VANCOMYCIN INJ 2,000 MG in SODIUM CHLORID 0.9% 500 ML INJ 500 ML IV SCH (05:04)
[2016-11-12] MEDS ORDERED: PHARMACY ORDERED LAB ONE (05:45)
[2016-11-12] MEDS ORDERED: SODIUM CHLORID 0.9% 500 ML INJ 500 ML IV ONE (07:15)
--- NOTE | 2016-11-12 07:23 | HHI.CCPN ---
Subjective Remarks/Hospital Course 55-year-old very pleasant gentleman with past medical history of COPD, and hypertension presents complaining of shortness of breath and nausea, generalized fatigue and chills for 2 days. He thinks it has been from being out in the heat. Denies any fever, chest pain, vomiting, abdominal pain, focal weakness or numbness. In the emergency department his saturation was in mid 80s on arrival with auditory wheezing and tachypnea. He was placed on 4 liters of NC and saturating in the low 90. He does not use oxygen at home. He also mentioned 2 days ago, he came home and was sitting in a chair and was taking his shoes off when he passed out. States he woke up and was still on the chair. This has never happen before. 10/25: Patient intubated secondary to increasing oxygen requirements, altered mental status. Discussed with son. Somewhat hypertensive post intubation. 10/26: Placed on rotaprone bed last evening. Flolan initiated. Saturations improved. Afebrile. Remains on Nimbex drip. 10/27: T max 99.7. Tolerated on not prone position 2 hours yesterday. Tolerating trickle feeds. FiO2 down to 55% 10/28: Tmax 99.9. When unprone for chest x-ray this a.m. desaturated. Currently on 90% FiO2. Actually hypertensive. No bowel movements. Remains paralyzed 10/29: Remains intubated sedated on continuous Prone therapy Except for chest x- ray. Fever 100.8. Panculture requested. Zyvox added. Continue IV sedation with propofol and fentanyl and Versed, neuromuscular paralysis with Nimbex 10/30: Prone cycle changed to 8 hr prone, 1 hr supine from 10/29. Due to hypoxia will continue with same cycle today. Chest x-ray remains unchanged. Patient remains severely hypoxemic FiO2 at 75% PEEP at 16. WBC count worsened to 18. Remains neuromuscularly paralyzed. 10/31: Patient remains critically ill but stable. Oxygen saturation 95% on 55 of FiO2 and PEEP of 16. Reduce PEEP to 14, FiO2 to 50% and start weaning Flolan. Increase supine time to 4 hours, reduce Prone time to 6 hours 11/01: Patient remains intubated sedated critically ill on neuromuscular paralysis. FiO2 reduced to 50, I will attempt PEEP wean gradually to 12 today. Prone/supine cycles will be changed to 6 hours each 11/02: FiO2 remains at 50%, PEEP reduced from 14 to 12 today, TV increased to 600 and RR to 20, in anticipation of discontinuing prone therapy, which will be DCd today. Off Flolan for 2 days 11/03: off pronation. fio2 up to 65% , peep 12. agitation causing desaturation. minimal improvements. 11/04: good diuresis yesterday, but despite that, fio2 persists at 65% and spo2 decreasing to 91% today. no real improvements and some worsening of pulmonary function despite ongoing aggressive therapies. still not safe for SBT given hypoxia. also severely hypertensive this morning. 11/05: continues to diurese well and Cr still at baseline. fio2 at 90% however, and no clinical improvements in mental status or hypoxia. still unsafe for SBT given hypoxemia. off pathway. hypertension under much better control. poor neuro status is concerning. 11/06: Remains severely hypoxemic. FiO2 was 100% PEEP 14. I reduce FiO2 to 90% after increasing PEEP to 16. Developed a flutter with RVR overnight, currently on Cardizem drip. Unable to do SBT due to very high settings 11/07: Remains hypoxemic and but able to wean FiO2 down to 80% with PEEP of 16. Remains unresponsive on sedation. Unable to trach due to his high vent settings and high FiO2. Remains on Cardizem and 15 mg per hour, with rate controlled a flutter. We'll start by mouth Cardizem in an attempt to wean IV Cardizem 11/08: Remains critically ill hypoxic but FiO2 now weaned to 60%, PEEP remains at 16. Very heavily sedated no withdrawal to pain. Will hold all continuos sedation. Sputum culture with Klebsiella sensitive to Rocephin. A flutter persistent, will start IV heparin 11/09 Patient is sedated with Diprivan and intubated, On Cardizem drip 15mg/hr for Aflutter. Heparin drip stated yesterday. 11/10 Patient remains sedated and intubated. On Heparin drip. Persistent fever with Tmax 102.5. ETT was replaced yesterday. 11/11 Patient was placed on Cardizem and amio drips overnight for Afib with RVR. Sedated with Diprivan and intubated. On Heparin drip. T;99.3 this morning. 11/12 Patient remains intubated and sedated with Diprivan. On Cardizem drip 15mg/ hr. Afebrile, Tmax 100.6 Objective Vital Signs Date Time Temp Pulse Resp B/P (MAP) Pulse Ox O2 Delivery O2 Flow Rate FiO2 11/12/16 06:00 115 11/12/16 04:15 94 60 11/12/16 04:00 99.6 18 126/75 (92) Intake and Output 11/12/16 11/12/16 11/13/16 08:00 16:00 00:00 Output Total 1150 ml Balance -1150 ml Result Diagram: 11/12/16 0300 11/12/16 0300 Other Results Laboratory Tests Test 11/11/16 11:00 11/11/16 18:30 11/12/16 03:00 Blood Gas Puncture Site RT RADIAL Blood Gas Patient Temperature 98.6 Blood Gas HCO3 31 mmol/L Blood Gas Base Excess 6.8 mmol/L Blood Gas Oxygen Saturation 87 % Arterial Blood pH 7.42 Arterial Blood Partial Pressure CO2 49 mmHg Arterial Blood Partial Pressure O2 58 mmHg Arterial Blood Oxygen Content 19.1 Vol % Arterial Blood Carboxyhemoglobin 0.9 % Arterial Blood Methemoglobin 1.2 % Blood Gas Hemoglobin 15.6 G/DL Oxygen Delivery Device [id number] Blood Gas Inspired Oxygen 60 % Potassium Level 3.5 MEQ/L 4.0 MEQ/L White Blood Count 14.2 TH/MM3 Red Blood Count 4.65 MIL/MM3 Hemoglobin 14.1 GM/DL Hematocrit 43.9 % Mean Corpuscular Volume 94.6 FL Mean Corpuscular Hemoglobin 30.4 PG Mean Corpuscular Hemoglobin Concent 32.2 % Red Cell Distribution Width 14.1 % Platelet Count 152 TH/MM3 Mean Platelet Volume 10.0 FL Neutrophils (%) (Auto) 86.4 % Lymphocytes (%) (Auto) 6.4 % Monocytes (%) (Auto) 6.2 % Eosinophils (%) (Auto) 0.5 % Basophils (%) (Auto) 0.5 % Neutrophils # (Auto) 12.3 TH/MM3 Lymphocytes # (Auto) 0.9 TH/MM3 Monocytes # (Auto) 0.9 TH/MM3 Eosinophils # (Auto) 0.1 TH/MM3 Basophils # (Auto) 0.1 TH/MM3 CBC Comment DIFF FINAL Differential Comment Activated Partial Thromboplast Time 32.7 SEC Blood Urea Nitrogen 40 MG/DL Creatinine 0.73 MG/DL Random Glucose 267 MG/DL Total Protein 5.9 GM/DL Albumin 2.3 GM/DL Calcium Level 8.0 MG/DL Alkaline Phosphatase 42 U/L Aspartate Amino Transf (AST/SGOT) 23 U/L Alanine Aminotransferase (ALT/SGPT) 168 U/L Total Bilirubin 0.8 MG/DL Sodium Level 142 MEQ/L Chloride Level 102 MEQ/L Carbon Dioxide Level 34.3 MEQ/L Anion Gap 6 MEQ/L Estimat Glomerular Filtration Rate 111 ML/MIN Imaging Last Impressions Chest X-Ray 11/09/16 0600 Signed Impressions: Service Date/Time: Wednesday, November 09, 2016 04:08 - CONCLUSION: 1. Significant improvement in aeration in the left lung base with resolving consolidation/effusion. 2. While there is a persistent right basilar consolidation/effusion, this too shows interval improvement. 3. Endotracheal tube is somewhat shallow likely thoracic inlet. This can probably be advanced a few centimeters. Life support tubes are otherwise stable in position. Jorge Jolly MD Lower Extremity Ultrasound 11/09/16 0000 Signed Impressions: Service Date/Time: Wednesday, November 09, 2016 14:13 - CONCLUSION: Normal examination. Jayson Manning MD Liver Ultrasound 11/09/16 0000 Signed Impressions: Service Date/Time: Wednesday, November 09, 2016 13:58 - CONCLUSION: Sono dense liver without duct dilatation. 4 mm common duct. Ward Kim MD FACR Chest CT 11/06/16 0000 Signed Impressions: Service Date/Time: Sunday, November 06, 2016 11:24 - CONCLUSION: 1. Dense bilateral posterior lower lobe airspace consolidation consistent with aspiration versus less likely pneumonia. 2. Linear consolidation in the right middle lobe consistent with atelectasis versus aspiration. 3. Trace left and small right pleural effusions. 4. Support lines and tubes in good position. 5. Prominent coronary artery calcifications. Nico Vaughan MD Head CT 11/05/16 0000 Signed Impressions: Service Date/Time: Saturday, November 05, 2016 21:43 - CONCLUSION: 1. No acute intracranial abnormalities. Pansinus fluid opacification. Cristofer De Santiago MD Abdomen X-Ray 10/29/16 0600 Signed Impressions: Service Date/Time: Saturday, October 29, 2016 04:41 - CONCLUSION: Nonspecific , nonobstructive bowel gas pattern. No evidence of free air. Jasyon Taylor MD Carotid Artery Ultrasound 10/25/16 0000 Signed Impressions: Service Date/Time: September 08:27 - CONCLUSION: Mild to moderate plaque in both carotid systems with less than 40%% diameter stenosis by velocity criteria. Jhonathan Dietz MD CT Angiography 10/25/16 0000 Signed Impressions: Service Date/Time: September 06:12 - CONCLUSION: 1. Negative for pulmonary embolism. 2. There is a fairly large area of masslike consolidation in the medial right lung involving posterior segment right upper lobe and medial aspect of right lower lobe. There is associated right hilar and mediastinal adenopathy measuring up to 2.1 cm. Differential diagnosis includes pneumonia or underlying lung neoplasm. Close followup imaging recommended after treatment for pneumonia, to assess for underlying mass. Cristofer De Santiago MD Objective Remarks GENERAL: 55-year-old male, sedated and intubated SKIN: Warm and dry. HEAD: Normocephalic. EYES: No scleral icterus. ENT: Orotracheally intubated NECK: Limited due to morbid obesity CARDIOVASCULAR: Atrial flutter with controlled rate. RESPIRATORY: B/l equal air entry GASTROINTESTINAL: Abdomen soft, obese. No organomegaly by limited exam MUSCULOSKELETAL: Nonpitting bilateral lower extremity edema. NEURO EXAM: Sedated A/P Assessment and Plan Assessment: morbidly obese male with Severe hypoxic respiratory failure, multilobar pneumonia, not improving, persistently hypoxic and not stable for SBT trials yet. off pathway. if we withdraw or even lessen full mechanical support, he would . remains critically ill. Likely will require tracheostomy and longer-term ventilation, but not stable for trach. Neuro/Psych: Syncope s/p Neuromuscular paralysis for Prone therapy Agitated Delirium Metabolic Encephalopathy On Diprivan infusion for sedation and vent synchrony. Daily sedation vacation prn Dilaudid for breakthrough. Haldol 5mg iv q4h prn for agitation. Head CT on admission revealed no acute intracranial findings, CT head 11/05- no acute findings. opacification of sinuses. Carotid ultrasound less than 50% stenosis bilaterally EEG 9/15: severe encephalopathy CV: Atrial fib/ flutter with RVR Hypertension- On Cardizem drip 15mg/r, will give Digoxin 0.25mg IV x1 PO Cardizem 60 mg PO q6hr,change Lopressor 50mg Q8, Clonidine 0.3mg Q8 and Isordil 10 mg 3 times a day for hypertension IV heparin for anticoagulation Echo 10/25 EF 60-65% Resp: Acute hypoxemic Respiratory failure - severe and persistent. Severe ARDS COPD exacerbation Pneumonia most likely community-acquired Obesity hypoventilation syndrome Tobacco use disorder CT pulmonary angio revealed no pulmonary embolus. Masslike consolidation in the posterior right upper lobe and medial right lower lobe. Lymphadenopathy to 1 cm right hilum and subcarinal. Atelectasis left lower lobe. PRVC 18, TV 700, IT:1.2, PEEP:12, FIO2 60% to keep Saturation >88%. Will Need trach once PEEP <10, FiO2<50% Check CXR/ABG Discontinued Prone therapy 11/02/16. Ventilator bundle, Albuterol/ipratropium every 4 hours with albuterol every 2 hours when necessary dyspnea Budesonide 0.5 mg aerosols twice a day. Solu-Medrol 40 mg IV daily Pulmonary/Dr. Wynne following Patient has been intubated since 10/25 will need trach once his O2 requirements is better GI: Morbid Obesity Elevated LFT's Monitor LFT, US liver: No ductal dilatation Continue tube feeds-Vital high protein 1.5@40ml/hr Famotidine 20 milligrams IV twice a day for GI prophylaxis Docusate sodium 100 mg twice a day, senna 8.6 mg twice a day, polyethylene glycol 3350 17 g twice a day and lactulose 30 cc 4 times a day for bowel regimen : Monitor renal function, I/O's, electrolytes replacement per protocol. Endo: Hyperglycemia- poorly controlled. SSI to q4h, high dose.increase Levemir 35U q12. . Heme: Leukocytosis Monitor CBC, coags- patient is on heparin drip. ID: Severe sepsis Pneumonia s/p Rocephin 11/02-11/09 for Enterobacter pneumonia. Repeat sputum Klebsiella sensitive to Rocephin 10/29/16-Enterobacter in sputum, 11/06/16, 11/10 sputum- Klebsiella Urine Legionella and pneumococcal antigens negative and influenza negative Follow up on from 11/08, Santiago replaced 11/09. C-diff PCR is negative Continue Zosyn, Vanco and Micafungin. ID is following-Dr. Amanda Lewis RURobert PICC placed 11/05 Prophylaxis - GI, famotidine - DVT - IV heparin 11/09 Doppler US LE negative for DVT Critical Care: The total critical care time was 30 minutes. Time to perform other separately billable procedures was not included in the critical care time. Patient remains critically ill with severe hypoxemic respiratory failure ARDS and pneumonia., severe Sepsis. Requiring very high ventilator settings to maintain his oxygen saturation. Agitated delirium and encephalopathy complicating multi-organ system dysfunction and preventing further improvements. Chepe Carney MD Nov 12, 2016 07:23
[2016-11-12] MEDS: RESP: BUDESONIDE 0.5 MG/2 ML NEB NEB SCH ×2 (07:29→20:00)
[2016-11-12] MEDS: RESP: ALBUTEROL 2.5 MG/IPRATROPIUM 0.5 MG NEB (SCH) NEB ×4 (08:00→20:00)
[2016-11-12] MEDS: CHLORHEXIDINE 0.12% (ORAL KIT) 15 ML CUP MT SCH ×2 (08:00→19:27)
[2016-11-12] MEDS ORDERED: DIGOXIN 0.5 MG/2 ML VIAL IV PUSH ONE (08:00)
--- NOTE | 2016-11-12 08:39 | RADRPT ---
EXAM DATE/TIME: 11/12/2016 07:42 [facility] COMPARISON: CT THORAX W/O CONTRAST, November 06, 2016, 11:24. CHEST SINGLE AP, November 09, 2016, 13:36. CHES T SINGLE AP, November 09, 2016, 15:24. INDICATIONS : Short of breath. MEDICAL HISTORY : Hypertension. Chronic obstructive pulmonary disease. Hypercholesterolemia. SURGICAL HISTORY : None. ENCOUNTER: Subsequent ACUITY: 3 weeks PAIN SCORE: Non-responsive. LOCATION: Bilateral chest FINDINGS: 2 AP views of the chest demonstrate a normal-sized cardiac silhouette. Endotracheal tube, nasogastric tube, and right upper cavity PICC remain present. Lungs are underinflated and there are stable bibas ilar pleural-parenchymal opacities, right slightly greater than left. No pneumothorax is visualized. Bones demonstrate no acute finding. CONCLUSION: Stable chest x-ray with bibasilar opacities likely representing pleural effusion with associated volu me loss and/or airspace consolidation. Jayson Levin MD on November 12, 2016 at 8:36 Board Certified Radiologist. This report was verified electronically.
[2016-11-12] MEDS: METOPROLOL TARTRATE 50 MG TAB PO SCH ×3 (09:00→23:37)
[2016-11-12] MEDS: FAMOTIDINE 20 MG/2 ML VIAL IV PUSH SCH ×2 (09:00→19:40)
[2016-11-12] MEDS: SODIUM CHLORIDE 0.9% FLUSH 10 ML FLUSH IV FLUSH SCH (09:00)
[2016-11-12] MEDS: SODIUM CHLORIDE 0.9% FLUSH 10 ML FLUSH IVF SCH (09:00)
[2016-11-12] MEDS: BENEPROTEIN POWDER 1 PACK G-TUBE SCH ×3 (09:00→18:00)
[2016-11-12] MEDS: methylPREDNISolone SOD SUCC 40 MG/1 ML VIAL IV SCH (09:02)
[2016-11-12] MEDS: SODIUM CHLORIDE 0.9% FLUSH 10 ML FLUSH SCH ×2 (09:10→19:27)
[2016-11-12] MEDS: ARTIFICIAL TEARS OPTH OINT 3.5 APPLIC/3.5 GM TUBO EACH EYE SCH ×2 (09:10→19:26)
[2016-11-12] MEDS ORDERED: AMIODARONE INJ 150 MG in DEXTROSE 5% IN WATER 100ML INJ 100 ML IV ONE ×2 (09:16)
[2016-11-12 09:17] LABS: BLOOD GAS BASE EXCESS 6.2 mmol/L (-2-2); BLOOD GAS CARBOXYHEMOGLOBIN 1.1 % (0-4); BLOOD GAS HCO3 30 mmol/L (22-26); BLOOD GAS METHEMOGLOBIN 1.1 % (0-2); BLOOD GAS O2 HGB SATURATION 92 % (90-100); BLOOD GAS OXYGEN CONTENT 18.6 Vol % (12.0-20.0); BLOOD GAS PCO2 43 mmHg (38-42); BLOOD GAS PO2 68 mmHg (61-120); BLOOD GAS TOTAL HGB 14.4 G/DL (12.0-16.0); CRITICAL VALUE NO; OXYGEN DEVICE VENTILATOR; TEMP CORR TO 98.6
[2016-11-12 09:18] LABS: DRAW SITE RT RADIAL; FIO2 70 %; NUMBER OF ARTERIAL PUNCTURES 1; STAT NO; ULNAR PULSE PRESENT; VENT SETTINGS PRVC/AC700/18
[2016-11-12] MEDS: AMIODARONE INJ 450 MG in DEXTROSE 5% IN WATE(EXCEL) INJ 241 ML IV SCH ×6 (09:26→23:37)
[2016-11-12] MEDS: HEPARIN-D5W 25,000 U/250 ML 250 ML IV PRN (11:30)
[2016-11-12] MEDS: ACETAMINOPHEN 325 MG TAB PO PRN (12:02)
[2016-11-12 12:57] LABS: APTT (PATIENT) 33.1 SEC (24.3-30.1)
[2016-11-12] MEDS: INSULIN DETEMIR 100 UNITS/ML VIAL SQ SCH ×2 (13:00→23:44)
--- NOTE | 2016-11-12 16:13 | HHI.PR ---
Addendum to Inpatient Note Additional Information I saw the pt around 1600 Full note to follow Mariana Patel MD Nov 12, 2016 16:13
--- NOTE | 2016-11-12 17:44 | HHI.IDPN ---
Subjective Subjective Remarks fever occasional < 100F He remains on quite high O2 requirements though slightly better down to 60% now quite tachycardic in 150s Antibiotics micafungin zosyn vancomycin Allergies: Coded Allergies: No Known Allergies (Unverified , 10/25/16) Objective . Vital Signs Date Time Temp Pulse Resp B/P (MAP) Pulse Ox O2 Delivery O2 Flow Rate FiO2 11/12/16 16:15 152 109/73 11/12/16 16:00 70 11/12/16 16:00 99.8 107 18 118/58 (78) 11/12/16 15:32 94 70 11/12/16 15:00 99.8 156 18 99/71 (80) 95 11/12/16 14:00 151 11/12/16 13:35 24 11/12/16 12:00 70 11/12/16 12:00 142 11/12/16 12:00 100.4 142 23 127/74 (91) 86 11/12/16 11:00 100.4 98 23 115/77 (90) 11/12/16 10:49 90 70 11/12/16 10:00 154 11/12/16 09:26 170 108/75 11/12/16 09:16 170 111/75 11/12/16 08:00 55 11/12/16 08:00 98.8 147 18 118/71 (87) 86 11/12/16 08:00 147 11/12/16 07:29 93 55 11/12/16 07:00 170 11/12/16 06:00 115 11/12/16 04:15 94 60 11/12/16 04:00 90 11/12/16 04:00 99.6 122 18 126/75 (92) 93 11/12/16 04:00 122 11/12/16 02:00 116 11/12/16 01:45 95 70 11/12/16 00:00 100 11/12/16 00:00 99.6 100 18 112/64 (80) 95 11/12/16 00:00 90 11/11/16 23:57 100 114/68 11/11/16 22:36 95 80 11/11/16 22:00 92 11/11/16 20:05 91 80 11/11/16 20:00 115 11/11/16 20:00 90 11/11/16 20:00 99.0 115 18 121/71 (88) 92 11/11/16 18:54 98 122/68 11/11/16 18:00 114 11/12/16 11/12/16 11/13/16 15:00 23:00 07:00 Intake Total 603 ml Balance 603 ml Intake IV Total 603 ml . Laboratory Tests Test 11/11/16 04:40 11/12/16 03:00 White Blood Count 16.7 TH/MM3 14.2 TH/MM3 Red Blood Count 4.91 MIL/MM3 4.65 MIL/MM3 Hemoglobin 15.1 GM/DL 14.1 GM/DL Hematocrit 46.8 % 43.9 % Mean Corpuscular Volume 95.3 FL 94.6 FL Mean Corpuscular Hemoglobin 30.7 PG 30.4 PG Mean Corpuscular Hemoglobin Concent 32.2 % 32.2 % Red Cell Distribution Width 13.8 % 14.1 % Platelet Count 176 TH/MM3 152 TH/MM3 Mean Platelet Volume 9.5 FL 10.0 FL Neutrophils (%) (Auto) 80.1 % 86.4 % Lymphocytes (%) (Auto) 8.8 % 6.4 % Monocytes (%) (Auto) 8.1 % 6.2 % Eosinophils (%) (Auto) 2.4 % 0.5 % Basophils (%) (Auto) 0.6 % 0.5 % Neutrophils # (Auto) 13.4 TH/MM3 12.3 TH/MM3 Lymphocytes # (Auto) 1.5 TH/MM3 0.9 TH/MM3 Monocytes # (Auto) 1.4 TH/MM3 0.9 TH/MM3 Eosinophils # (Auto) 0.4 TH/MM3 0.1 TH/MM3 Basophils # (Auto) 0.1 TH/MM3 0.1 TH/MM3 CBC Comment AUTO DIFF DIFF FINAL Differential Total Cells Counted 100 Neutrophils % (Manual) 70 % Band Neutrophils % 15 % Lymphocytes % 9 % Monocytes % 5 % Eosinophils % 1 % Neutrophils # (Manual) 14.2 TH/MM3 Differential Comment FINAL DIFF MANUAL Platelet Estimate NORMAL Platelet Morphology Comment NORMAL Red Cell Morphology Comment NORMAL Laboratory Tests Test 11/11/16 04:40 11/11/16 18:30 11/12/16 03:00 Blood Urea Nitrogen 47 MG/DL 40 MG/DL Creatinine 0.68 MG/DL 0.73 MG/DL Random Glucose 339 MG/DL 267 MG/DL Total Protein 6.1 GM/DL 5.9 GM/DL Albumin 2.4 GM/DL 2.3 GM/DL Calcium Level 7.9 MG/DL 8.0 MG/DL Phosphorus Level 2.6 MG/DL Magnesium Level 2.6 MG/DL Alkaline Phosphatase 46 U/L 42 U/L Aspartate Amino Transf (AST/SGOT) 44 U/L 23 U/L Alanine Aminotransferase (ALT/SGPT) 248 U/L 168 U/L Total Bilirubin 0.8 MG/DL 0.8 MG/DL Sodium Level 140 MEQ/L 142 MEQ/L Potassium Level 3.1 MEQ/L 3.5 MEQ/L 4.0 MEQ/L Chloride Level 99 MEQ/L 102 MEQ/L Carbon Dioxide Level 34.3 MEQ/L 34.3 MEQ/L Anion Gap 7 MEQ/L 6 MEQ/L Estimat Glomerular Filtration Rate 121 ML/MIN 111 ML/MIN Procalcitonin 0.16 ng/mL Microbiology Date/Time Source Procedure Growth Status 11/10/16 11:40 Blood Peripheral Aerobic Blood Culture - Preliminary NO GROWTH IN 2 DAYS Resulted 11/10/16 11:40 Blood Peripheral Anaerobic Blood Culture - Preliminary NO GROWTH IN 2 DAYS Resulted 11/10/16 11:35 Blood Peripheral Aerobic Blood Culture - Preliminary NO GROWTH IN 2 DAYS Resulted 11/10/16 11:35 Blood Peripheral Anaerobic Blood Culture - Preliminary NO GROWTH IN 2 DAYS Resulted 11/10/16 05:45 Sputum Endotracheal Gram Stain - Final Complete 11/10/16 05:45 Sputum Culture - Final Klebsiella Pneumoniae Complete 11/11/16 01:15 Urine Catheterized Urine Urine Culture - Preliminary Ana Albicans Resulted Imaging Last Impressions Chest X-Ray 11/12/16 0000 Signed Impressions: Service Date/Time: Saturday, November 12, 2016 07:42 - CONCLUSION: Stable chest x-ray with bibasilar opacities likely representing pleural effusion with associated volume loss and/or airspace consolidation. Jayson Levin MD Lower Extremity Ultrasound 11/09/16 0000 Signed Impressions: Service Date/Time: Wednesday, November 09, 2016 14:13 - CONCLUSION: Normal examination. Jayson Manning MD Liver Ultrasound 11/09/16 0000 Signed Impressions: Service Date/Time: Wednesday, November 09, 2016 13:58 - CONCLUSION: Sono dense liver without duct dilatation. 4 mm common duct. Ward Kim MD FACR Chest CT 11/06/16 0000 Signed Impressions: Service Date/Time: Sunday, November 06, 2016 11:24 - CONCLUSION: 1. Dense bilateral posterior lower lobe airspace consolidation consistent with aspiration versus less likely pneumonia. 2. Linear consolidation in the right middle lobe consistent with atelectasis versus aspiration. 3. Trace left and small right pleural effusions. 4. Support lines and tubes in good position. 5. Prominent coronary artery calcifications. Nico Vaughan MD Head CT 11/05/16 0000 Signed Impressions: Service Date/Time: Saturday, November 05, 2016 21:43 - CONCLUSION: 1. No acute intracranial abnormalities. Pansinus fluid opacification. Cristofer De Santiago MD Abdomen X-Ray 10/29/16 0600 Signed Impressions: Service Date/Time: Saturday, October 29, 2016 04:41 - CONCLUSION: Nonspecific , nonobstructive bowel gas pattern. No evidence of free air. Jayson Taylor MD Carotid Artery Ultrasound 10/25/16 0000 Signed Impressions: Service Date/Time: September 08:27 - CONCLUSION: Mild to moderate plaque in both carotid systems with less than 40%% diameter stenosis by velocity criteria. Jhonathan Dietz MD CT Angiography 10/25/16 0000 Signed Impressions: Service Date/Time: September 06:12 - CONCLUSION: 1. Negative for pulmonary embolism. 2. There is a fairly large area of masslike consolidation in the medial right lung involving posterior segment right upper lobe and medial aspect of right lower lobe. There is associated right hilar and mediastinal adenopathy measuring up to 2.1 cm. Differential diagnosis includes pneumonia or underlying lung neoplasm. Close followup imaging recommended after treatment for pneumonia, to assess for underlying mass. Cristofer De Santiago MD Physical Exam CONSTITUTIONAL/GENERAL: This is a morbidly obese patient, sedated int'd on vent TUBES/LINES/DRAINS: SKIN: No jaundice, rashes, or lesions. Skin temperature appropriate. Not diaphoretic. HEAD: Atraumatic. Normocephalic. EYES: Pupils equal and round and reactive. Extraocular motions intact. No scleral icterus. No injection or drainage. Fundi not examined. ENT: Hearing not tested . Nose without bleeding or purulent drainage. Throat without visible erythema, exudates, masses, or lesions. NECK: Trachea midline. Supple, nontender. CARDIOVASCULAR: Afib on the monitor tachycardia without murmurs, gallops, or rubs. No JVD. Peripheral pulses symmetric. RESPIRATORY/CHEST: Symmetric, unlabored respirations. Clear to auscultation. Breath sounds equal bilaterally. No wheezes, rales, or rhonchi. GASTROINTESTINAL: Abdomen soft, non-tender, nondistended. No hepato-splenomegaly , or palpable masses. No guarding. Bowel sounds present. [address] in [address],[place] with liquid brown stool GENITOURINARY: Without palpable bladder distension. Santiago catheter in place with somewhat cloudy urine MUSCULOSKELETAL: Extremities without clubbing, cyanosis, + 1-2 edema. LYMPHATICS: No palpable cervical or supraclavicular adenopathy. NEUROLOGICAL: Sedated. nresponsive PSYCHIATRIC: unable to assess Assessment & Plan Remarks PNA, Kleb oneumo - failrly sensitive ARDS Acute VDRF Fever: significantly improved - new infx - ? drug reaction - 2/2 ARDS - procalcitonine is quite low blood clx remain negative Abx associated diarrhea, C.diff negative Critically ill, unstable Abnormal UA, CANDIDURIA REC's: cont current abx dc vancomycin, zosyn start CFTX dc micafungin start fluconazoe fu P blood clx untill final fu repeat blood and sputum clx -cont micafungin Discussed Condition With RN and Mariana Alcocer MD Nov 12, 2016 17:44
[2016-11-12] MEDS: cefTRIAXone INJ 2,000 MG in SODIUM CHLORIDE 0.9% INJ 100 ML IV SCH (18:00)
[2016-11-12] MEDS: CHLORHEXIDINE GLUCONATE 2 % 1 PACK (2 CLOTHS) TOP SCH (19:27)
[2016-11-12] MEDS: FLUCONAZOLE 200 MG PREMIX BAG 100 ML IV SCH (19:40)
[2016-11-12 20:32] LABS: APTT (PATIENT) 36.7 SEC (24.3-30.1)
[2016-11-13] VITALS (21 sets, daily range): BP systolic 107–156; BP diastolic 62–95; PULSE 102–160; RESP 16–21; TEMP 98–99.7; O2SAT 90–100
[2016-11-13] MEDS: PROPOFOL 1000 MG/100 ML IV PRN ×6 (03:27→18:50)
[2016-11-13] MEDS: INSULIN NovoLIN REGULAR SUPPLEMENTAL SCALE SQ SCH ×5 (03:29→20:42)
[2016-11-13 03:46] LABS: APTT (PATIENT) 35.7 SEC (24.3-30.1)
[2016-11-13 03:52] LABS: AUTOMATED NEUTROPHIL # 13.5 TH/MM3 (1.8-7.7); BASOPHIL # 0.1 TH/MM3 (0-0.2); BASOPHIL % 0.4 % (0.0-2.0); EOSINOPHIL # 0.1 TH/MM3 (0-0.4); EOSINOPHIL % 0.5 % (0.0-4.0); HEMATOCRIT 43.2 % (39.0-51.0); HEMO FLAGS DIFF FINAL; LYMPH % 5.1 % (9.0-44.0); LYMPHOCYTE # 0.8 TH/MM3 (1.0-4.8); MEAN CELL VOLUME 94.3 FL (80.0-100.0); MEAN CORPUSCULAR HEMOGLOBIN 30.3 PG (27.0-34.0); MEAN CORPUSCULAR HGB CONC 32.1 % (32.0-36.0); MONO % 5.5 % (0.0-8.0); NEUT % 88.5 % (16.0-70.0); PLATELET COUNT 136 TH/MM3 (150-450); RED BLOOD COUNT 4.58 MIL/MM3 (4.50-5.90); RED CELL DISTRIBUTION WIDTH 13.9 % (11.6-17.2); WHITE BLOOD COUNT 15.2 TH/MM3 (4.0-11.0)
[2016-11-13] MEDS: RESP: ALBUTEROL 2.5 MG/IPRATROPIUM 0.5 MG NEB (SCH) NEB ×7 (04:00→23:39)
[2016-11-13] MEDS: HEPARIN-D5W 25,000 U/250 ML 250 ML IV PRN ×2 (04:06→17:37)
[2016-11-13 04:09] LABS: ANION GAP 4 MEQ/L (5-15); AST (GOT) 25 U/L (15-37); BICARBONATE 34.8 MEQ/L (21.0-32.0); BLOOD UREA NITROGEN 35 MG/DL (7-18); CHLORIDE 101 MEQ/L (98-107); GLOMERULAR FILTRATION RATE 139 ML/MIN (>89); POTASSIUM 4.1 MEQ/L (3.5-5.1); SODIUM (NA) 140 MEQ/L (136-145)
[2016-11-13 04:12] LABS: ALKALINE PHOSPHATASE 42 U/L (45-117); ALT (GPT) 130 U/L (12-78); TOTAL BILIRUBIN ADULT 0.6 MG/DL (0.2-1.0)
[2016-11-13] MEDS: ISOSORBIDE DINITRATE 10 MG TAB PO SCH ×3 (04:53→20:43)
[2016-11-13] MEDS: cloNIDine HCL 0.3 MG TAB PO SCH ×3 (04:53→20:43)
[2016-11-13] MEDS: DILTIAZEM HCL 60 MG TAB PO SCH ×3 (04:53→17:34)
--- NOTE | 2016-11-13 07:43 | HHI.CCPN ---
Subjective Remarks/Hospital Course 55-year-old very pleasant gentleman with past medical history of COPD, and hypertension presents complaining of shortness of breath and nausea, generalized fatigue and chills for 2 days. He thinks it has been from being out in the heat. Denies any fever, chest pain, vomiting, abdominal pain, focal weakness or numbness. In the emergency department his saturation was in mid 80s on arrival with auditory wheezing and tachypnea. He was placed on 4 liters of NC and saturating in the low 90. He does not use oxygen at home. He also mentioned 2 days ago, he came home and was sitting in a chair and was taking his shoes off when he passed out. States he woke up and was still on the chair. This has never happen before. 10/25: Patient intubated secondary to increasing oxygen requirements, altered mental status. Discussed with son. Somewhat hypertensive post intubation. 10/26: Placed on rotaprone bed last evening. Flolan initiated. Saturations improved. Afebrile. Remains on Nimbex drip. 10/27: T max 99.7. Tolerated on not prone position 2 hours yesterday. Tolerating trickle feeds. FiO2 down to 55% 10/28: Tmax 99.9. When unprone for chest x-ray this a.m. desaturated. Currently on 90% FiO2. Actually hypertensive. No bowel movements. Remains paralyzed 10/29: Remains intubated sedated on continuous Prone therapy Except for chest x- ray. Fever 100.8. Panculture requested. Zyvox added. Continue IV sedation with propofol and fentanyl and Versed, neuromuscular paralysis with Nimbex 10/30: Prone cycle changed to 8 hr prone, 1 hr supine from 10/29. Due to hypoxia will continue with same cycle today. Chest x-ray remains unchanged. Patient remains severely hypoxemic FiO2 at 75% PEEP at 16. WBC count worsened to 18. Remains neuromuscularly paralyzed. 10/31: Patient remains critically ill but stable. Oxygen saturation 95% on 55 of FiO2 and PEEP of 16. Reduce PEEP to 14, FiO2 to 50% and start weaning Flolan. Increase supine time to 4 hours, reduce Prone time to 6 hours 11/01: Patient remains intubated sedated critically ill on neuromuscular paralysis. FiO2 reduced to 50, I will attempt PEEP wean gradually to 12 today. Prone/supine cycles will be changed to 6 hours each 11/02: FiO2 remains at 50%, PEEP reduced from 14 to 12 today, TV increased to 600 and RR to 20, in anticipation of discontinuing prone therapy, which will be DCd today. Off Flolan for 2 days 11/03: off pronation. fio2 up to 65% , peep 12. agitation causing desaturation. minimal improvements. 11/04: good diuresis yesterday, but despite that, fio2 persists at 65% and spo2 decreasing to 91% today. no real improvements and some worsening of pulmonary function despite ongoing aggressive therapies. still not safe for SBT given hypoxia. also severely hypertensive this morning. 11/05: continues to diurese well and Cr still at baseline. fio2 at 90% however, and no clinical improvements in mental status or hypoxia. still unsafe for SBT given hypoxemia. off pathway. hypertension under much better control. poor neuro status is concerning. 11/06: Remains severely hypoxemic. FiO2 was 100% PEEP 14. I reduce FiO2 to 90% after increasing PEEP to 16. Developed a flutter with RVR overnight, currently on Cardizem drip. Unable to do SBT due to very high settings 11/07: Remains hypoxemic and but able to wean FiO2 down to 80% with PEEP of 16. Remains unresponsive on sedation. Unable to trach due to his high vent settings and high FiO2. Remains on Cardizem and 15 mg per hour, with rate controlled a flutter. We'll start by mouth Cardizem in an attempt to wean IV Cardizem 11/08: Remains critically ill hypoxic but FiO2 now weaned to 60%, PEEP remains at 16. Very heavily sedated no withdrawal to pain. Will hold all continuos sedation. Sputum culture with Klebsiella sensitive to Rocephin. A flutter persistent, will start IV heparin 11/09 Patient is sedated with Diprivan and intubated, On Cardizem drip 15mg/hr for Aflutter. Heparin drip stated yesterday. 11/10 Patient remains sedated and intubated. On Heparin drip. Persistent fever with Tmax 102.5. ETT was replaced yesterday. 11/11 Patient was placed on Cardizem and amio drips overnight for Afib with RVR. Sedated with Diprivan and intubated. On Heparin drip. T;99.3 this morning. 11/12 Patient remains intubated and sedated with Diprivan. On Cardizem drip 15mg/ hr. Afebrile, Tmax 100.6 11/13 Patient is sedate with Diprivan and intubated. In Afib with RVR now on Amio drip. Tmax 100,4 Objective Vital Signs Date Time Temp Pulse Resp B/P (MAP) Pulse Ox O2 Delivery O2 Flow Rate FiO2 11/13/16 06:00 145 11/13/16 04:09 93 70 11/13/16 04:00 99.4 20 121/92 (102) Intake and Output 11/13/16 11/13/16 11/14/16 08:00 16:00 00:00 Intake Total 488 ml Output Total 975 ml Balance -487 ml Result Diagram: 11/13/16 0300 11/13/16 0300 Other Results Laboratory Tests Test 11/12/16 09:10 11/12/16 12:25 11/12/16 20:00 11/13/16 03:00 Blood Gas Puncture Site RT RADIAL Blood Gas Patient Temperature 98.6 Blood Gas HCO3 30 mmol/L Blood Gas Base Excess 6.2 mmol/L Blood Gas Oxygen Saturation 92 % Arterial Blood pH 7.46 Arterial Blood Partial Pressure CO2 43 mmHg Arterial Blood Partial Pressure O2 68 mmHg Arterial Blood Oxygen Content 18.6 Vol % Arterial Blood Carboxyhemoglobin 1.1 % Arterial Blood Methemoglobin 1.1 % Blood Gas Hemoglobin 14.4 G/DL Oxygen Delivery Device VENTILATOR Blood Gas [facility]ilator [facility]18 Blood Gas Inspired Oxygen 70 % Activated Partial Thromboplast Time 33.1 SEC 36.7 SEC 35.7 SEC White Blood Count 15.2 TH/MM3 Red Blood Count 4.58 MIL/MM3 Hemoglobin 13.9 GM/DL Hematocrit 43.2 % Mean Corpuscular Volume 94.3 FL Mean Corpuscular Hemoglobin 30.3 PG Mean Corpuscular Hemoglobin Concent 32.1 % Red Cell Distribution Width 13.9 % Platelet Count 136 TH/MM3 Mean Platelet Volume 10.0 FL Neutrophils (%) (Auto) 88.5 % Lymphocytes (%) (Auto) 5.1 % Monocytes (%) (Auto) 5.5 % Eosinophils (%) (Auto) 0.5 % Basophils (%) (Auto) 0.4 % Neutrophils # (Auto) 13.5 TH/MM3 Lymphocytes # (Auto) 0.8 TH/MM3 Monocytes # (Auto) 0.8 TH/MM3 Eosinophils # (Auto) 0.1 TH/MM3 Basophils # (Auto) 0.1 TH/MM3 CBC Comment DIFF FINAL Differential Comment Blood Urea Nitrogen 35 MG/DL Creatinine 0.60 MG/DL Random Glucose 248 MG/DL Total Protein 6.0 GM/DL Albumin 2.3 GM/DL Calcium Level 8.2 MG/DL Alkaline Phosphatase 42 U/L Aspartate Amino Transf (AST/SGOT) 25 U/L Alanine Aminotransferase (ALT/SGPT) 130 U/L Total Bilirubin 0.6 MG/DL Sodium Level 140 MEQ/L Potassium Level 4.1 MEQ/L Chloride Level 101 MEQ/L Carbon Dioxide Level 34.8 MEQ/L Anion Gap 4 MEQ/L Estimat Glomerular Filtration Rate 139 ML/MIN Imaging Last Impressions Chest X-Ray 11/12/16 0000 Signed Impressions: Service Date/Time: Saturday, November 12, 2016 07:42 - CONCLUSION: Stable chest x-ray with bibasilar opacities likely representing pleural effusion with associated volume loss and/or airspace consolidation. Jayson Levin MD Lower Extremity Ultrasound 11/09/16 0000 Signed Impressions: Service Date/Time: Wednesday, November 09, 2016 14:13 - CONCLUSION: Normal examination. Jayson Manning MD Liver Ultrasound 11/09/16 0000 Signed Impressions: Service Date/Time: Wednesday, November 09, 2016 13:58 - CONCLUSION: Sono dense liver without duct dilatation. 4 mm common duct. Ward Kim MD FACR Chest CT 11/06/16 0000 Signed Impressions: Service Date/Time: Sunday, November 06, 2016 11:24 - CONCLUSION: 1. Dense bilateral posterior lower lobe airspace consolidation consistent with aspiration versus less likely pneumonia. 2. Linear consolidation in the right middle lobe consistent with atelectasis versus aspiration. 3. Trace left and small right pleural effusions. 4. Support lines and tubes in good position. 5. Prominent coronary artery calcifications. Nico Vaughan MD Head CT 11/05/16 0000 Signed Impressions: Service Date/Time: Saturday, November 05, 2016 21:43 - CONCLUSION: 1. No acute intracranial abnormalities. Pansinus fluid opacification. Cristofer De Santiago MD Abdomen X-Ray 10/29/16 0600 Signed Impressions: Service Date/Time: Saturday, October 29, 2016 04:41 - CONCLUSION: Nonspecific , nonobstructive bowel gas pattern. No evidence of free air. Jayson Taylor MD Carotid Artery Ultrasound 10/25/16 0000 Signed Impressions: Service Date/Time: September 08:27 - CONCLUSION: Mild to moderate plaque in both carotid systems with less than 40%% diameter stenosis by velocity criteria. Jhonathan Dietz MD CT Angiography 10/25/16 0000 Signed Impressions: Service Date/Time: September 06:12 - CONCLUSION: 1. Negative for pulmonary embolism. 2. There is a fairly large area of masslike consolidation in the medial right lung involving posterior segment right upper lobe and medial aspect of right lower lobe. There is associated right hilar and mediastinal adenopathy measuring up to 2.1 cm. Differential diagnosis includes pneumonia or underlying lung neoplasm. Close followup imaging recommended after treatment for pneumonia, to assess for underlying mass. Cristofer De Santiago MD Objective Remarks GENERAL: 55-year-old male, sedated and intubated SKIN: Warm and dry. HEAD: Normocephalic. EYES: No scleral icterus. ENT: Orotracheally intubated NECK: Limited due to morbid obesity CARDIOVASCULAR: Atrial flutter with controlled rate. RESPIRATORY: B/l equal air entry GASTROINTESTINAL: Abdomen soft, obese. No organomegaly by limited exam MUSCULOSKELETAL: Nonpitting bilateral lower extremity edema. NEURO EXAM: Sedated A/P Assessment and Plan Assessment: morbidly obese male with Severe hypoxic respiratory failure, multilobar pneumonia, not improving, persistently hypoxic and not stable for SBT trials yet. off pathway. if we withdraw or even lessen full mechanical support, he would . remains critically ill. Likely will require tracheostomy and longer-term ventilation, but not stable for trach. Neuro/Psych: Syncope s/p Neuromuscular paralysis for Prone therapy Agitated Delirium Metabolic Encephalopathy On Diprivan infusion for sedation and vent synchrony. Daily sedation vacation prn Dilaudid for breakthrough. Haldol 5mg iv q4h prn for agitation. Head CT on admission revealed no acute intracranial findings, CT head 11/05- no acute findings. opacification of sinuses. Carotid ultrasound less than 50% stenosis bilaterally EEG 11/09: severe encephalopathy CV: Atrial fib/ flutter with RVR Hypertension- Resume Cardizem drip, continue with Amio drip. PO Cardizem 60 mg PO q6hr, Lopressor 50mg Q8, Clonidine 0.3mg Q8 and Isordil 10 mg 3 times a day for hypertension IV heparin for anticoagulation Echo 10/25 EF 60-65% Resp: Acute hypoxemic Respiratory failure - severe and persistent. Severe ARDS COPD exacerbation Pneumonia most likely community-acquired Obesity hypoventilation syndrome Tobacco use disorder CT pulmonary angio revealed no pulmonary embolus. Masslike consolidation in the posterior right upper lobe and medial right lower lobe. Lymphadenopathy to 1 cm right hilum and subcarinal. Atelectasis left lower lobe. PRVC 18, TV 700, IT:1.2, PEEP:12, FIO2 60% to keep Saturation >88%. Will Need trach once PEEP <10, FiO2<50% CXR yesterday- Bibasilar opacities ( unchanged) Discontinued Prone therapy 11/02/16. Ventilator bundle, Albuterol/ipratropium every 4 hours with albuterol every 2 hours when necessary dyspnea Budesonide 0.5 mg aerosols twice a day. Solu-Medrol 40 mg IV daily Pulmonary/Dr. Wynne following Patient has been intubated since 10/25 will need trach once his O2 requirements is better GI: Morbid Obesity Elevated LFT's Monitor LFT, US liver: No ductal dilatation Continue tube feeds-Vital high protein 1.5@40ml/hr Famotidine 20 milligrams IV twice a day for GI prophylaxis : Monitor renal function, I/O's, electrolytes replacement per protocol. Endo: Hyperglycemia- poorly controlled. SSI to q4h, high dose. Levemir 35U q12. . Heme: Leukocytosis Monitor CBC, coags- patient is on heparin drip. ID: Severe sepsis Pneumonia s/p Rocephin 11/02-11/09 for Enterobacter pneumonia. Repeat sputum Klebsiella sensitive to Rocephin 10/29/16-Enterobacter in sputum, 11/06/16, 11/10 sputum- Klebsiella Urine Legionella and pneumococcal antigens negative and influenza negative Follow up on BC from 11/08, Santiago replaced 11/09. C-diff PCR is negative Continue abx per ID ( Rocephin, Diflucan). ID is following-Dr. Patel Access RUE PICC placed 11/05 Prophylaxis - GI, famotidine - DVT - IV heparin 11/09 Doppler US LE negative for DVT Critical Care: The total critical care time was 30 minutes. Time to perform other separately billable procedures was not included in the critical care time. Patient remains critically ill with severe hypoxemic respiratory failure ARDS and pneumonia.. Requiring very high ventilator settings to maintain his oxygen saturation. Agitated delirium and encephalopathy complicating multi-organ system dysfunction and preventing further improvements. Chepe aCrney MD Nov 13, 2016 07:43
[2016-11-13] MEDS ORDERED: SODIUM CHLOR 0.9% 1000 ML INJ 1,000 ML IV ONE (07:45)
[2016-11-13] MEDS: RESP: BUDESONIDE 0.5 MG/2 ML NEB NEB SCH ×2 (07:59→19:42)
[2016-11-13] MEDS: AMIODARONE INJ 450 MG in DEXTROSE 5% IN WATE(EXCEL) INJ 241 ML IV SCH ×4 (08:11→20:41)
[2016-11-13] MEDS: SODIUM CHLORIDE 0.9% FLUSH 10 ML FLUSH IV FLUSH SCH (09:00)
[2016-11-13] MEDS: DILTIAZEM INJ 125 MG in SODIUM CHLORIDE 0.9% INJ 100 ML IV PRN ×2 (09:09→17:08)
[2016-11-13] MEDS: methylPREDNISolone SOD SUCC 40 MG/1 ML VIAL IV SCH (09:11)
[2016-11-13] MEDS: FAMOTIDINE 20 MG/2 ML VIAL IV PUSH SCH ×2 (09:11→20:43)
[2016-11-13] MEDS: METOPROLOL TARTRATE 50 MG TAB PO SCH ×2 (09:11→16:27)
[2016-11-13] MEDS: SODIUM CHLORIDE 0.9% FLUSH 10 ML FLUSH SCH ×2 (09:12→20:43)
[2016-11-13] MEDS: ARTIFICIAL TEARS OPTH OINT 3.5 APPLIC/3.5 GM TUBO EACH EYE SCH ×2 (09:13→20:44)
[2016-11-13] MEDS: CHLORHEXIDINE 0.12% (ORAL KIT) 15 ML CUP MT SCH ×2 (09:14→20:45)
[2016-11-13] MEDS: SODIUM CHLORIDE 0.9% FLUSH 10 ML FLUSH IVF SCH (09:15)
[2016-11-13 12:14] LABS: APTT (PATIENT) 64.4 SEC (24.3-30.1)
[2016-11-13] MEDS: INSULIN DETEMIR 100 UNITS/ML VIAL SQ SCH (13:00)
[2016-11-13] MEDS: fentaNYL DRIP 250 ML IV PRN (15:14)
[2016-11-13] MEDS: cefTRIAXone INJ 2,000 MG in SODIUM CHLORIDE 0.9% INJ 100 ML IV SCH (17:34)
--- NOTE | 2016-11-13 18:58 | HHI.PR ---
Addendum to Inpatient Note Additional Information Pt seen around 1630 Full note to follow Mariana Patel MD Nov 13, 2016 18:58
[2016-11-13 20:36] LABS: APTT (PATIENT) 89.9 SEC (24.3-30.1)
[2016-11-13] MEDS: FLUCONAZOLE 200 MG PREMIX BAG 100 ML IV SCH (20:40)
--- NOTE | 2016-11-13 22:40 | HHI.IDPN ---
Subjective Subjective Remarks low grade fever not tolerating weaning, still on 70% FiO2, PEEP 12 WBC 15K Antibiotics CFTX fluconazole Allergies: Coded Allergies: No Known Allergies (Unverified , 10/25/16) Objective . Vital Signs Date Time Temp Pulse Resp B/P (MAP) Pulse Ox O2 Delivery O2 Flow Rate FiO2 11/13/16 20:41 103 117/66 11/13/16 19:40 94 Ventilator 11/13/16 19:33 94 70 11/13/16 18:00 135 11/13/16 17:08 150 112/69 11/13/16 16:12 93 70 11/13/16 16:00 98.0 154 21 107/67 (80) 91 11/13/16 16:00 154 11/13/16 16:00 70 11/13/16 14:00 159 11/13/16 12:00 147 11/13/16 12:00 70 11/13/16 12:00 98.7 147 20 124/85 (98) 90 11/13/16 11:09 92 70 11/13/16 10:00 156 11/13/16 09:09 160 137/77 11/13/16 08:11 160 137/77 11/13/16 08:00 157 11/13/16 08:00 70 11/13/16 08:00 99.7 157 20 130/93 (105) 91 11/13/16 07:59 92 70 11/13/16 06:00 145 11/13/16 04:09 93 70 11/13/16 04:00 159 11/13/16 04:00 70 11/13/16 04:00 99.4 159 20 121/92 (102) 90 11/13/16 02:00 160 11/13/16 01:02 90 60 11/13/16 00:00 99.3 156 20 138/95 (109) 90 11/13/16 00:00 70 11/13/16 00:00 156 11/13/16 11/13/16 11/14/16 15:00 23:00 07:00 Intake Total 1000 ml 675 ml Output Total 1075 ml Balance 1000 ml -400 ml Intake IV Total 1000 ml Tube Feeding 495 ml Tube Irrigant 180 ml Output Urine Total 875 ml Stool Total 200 ml . Laboratory Tests Test 11/12/16 03:00 11/13/16 03:00 White Blood Count 14.2 TH/MM3 15.2 TH/MM3 Red Blood Count 4.65 MIL/MM3 4.58 MIL/MM3 Hemoglobin 14.1 GM/DL 13.9 GM/DL Hematocrit 43.9 % 43.2 % Mean Corpuscular Volume 94.6 FL 94.3 FL Mean Corpuscular Hemoglobin 30.4 PG 30.3 PG Mean Corpuscular Hemoglobin Concent 32.2 % 32.1 % Red Cell Distribution Width 14.1 % 13.9 % Platelet Count 152 TH/MM3 136 TH/MM3 Mean Platelet Volume 10.0 FL 10.0 FL Neutrophils (%) (Auto) 86.4 % 88.5 % Lymphocytes (%) (Auto) 6.4 % 5.1 % Monocytes (%) (Auto) 6.2 % 5.5 % Eosinophils (%) (Auto) 0.5 % 0.5 % Basophils (%) (Auto) 0.5 % 0.4 % Neutrophils # (Auto) 12.3 TH/MM3 13.5 TH/MM3 Lymphocytes # (Auto) 0.9 TH/MM3 0.8 TH/MM3 Monocytes # (Auto) 0.9 TH/MM3 0.8 TH/MM3 Eosinophils # (Auto) 0.1 TH/MM3 0.1 TH/MM3 Basophils # (Auto) 0.1 TH/MM3 0.1 TH/MM3 CBC Comment DIFF FINAL DIFF FINAL Differential Comment Laboratory Tests Test 11/12/16 03:00 11/13/16 03:00 Blood Urea Nitrogen 40 MG/DL 35 MG/DL Creatinine 0.73 MG/DL 0.60 MG/DL Random Glucose 267 MG/DL 248 MG/DL Total Protein 5.9 GM/DL 6.0 GM/DL Albumin 2.3 GM/DL 2.3 GM/DL Calcium Level 8.0 MG/DL 8.2 MG/DL Alkaline Phosphatase 42 U/L 42 U/L Aspartate Amino Transf (AST/SGOT) 23 U/L 25 U/L Alanine Aminotransferase (ALT/SGPT) 168 U/L 130 U/L Total Bilirubin 0.8 MG/DL 0.6 MG/DL Sodium Level 142 MEQ/L 140 MEQ/L Potassium Level 4.0 MEQ/L 4.1 MEQ/L Chloride Level 102 MEQ/L 101 MEQ/L Carbon Dioxide Level 34.3 MEQ/L 34.8 MEQ/L Anion Gap 6 MEQ/L 4 MEQ/L Estimat Glomerular Filtration Rate 111 ML/MIN 139 ML/MIN Microbiology Date/Time Source Procedure Growth Status 11/11/16 01:15 Urine Catheterized Urine Urine Culture - Final Ana Albicans Complete Imaging Last Impressions Chest X-Ray 11/12/16 0000 Signed Impressions: Service Date/Time: Saturday, November 12, 2016 07:42 - CONCLUSION: Stable chest x-ray with bibasilar opacities likely representing pleural effusion with associated volume loss and/or airspace consolidation. Jayson Levin MD Lower Extremity Ultrasound 11/09/16 0000 Signed Impressions: Service Date/Time: Wednesday, November 09, 2016 14:13 - CONCLUSION: Normal examination. Jayson Manning MD Liver Ultrasound 11/09/16 0000 Signed Impressions: Service Date/Time: Wednesday, November 09, 2016 13:58 - CONCLUSION: Sono dense liver without duct dilatation. 4 mm common duct. Ward Kim MD FACR Chest CT 11/06/16 0000 Signed Impressions: Service Date/Time: Sunday, November 06, 2016 11:24 - CONCLUSION: 1. Dense bilateral posterior lower lobe airspace consolidation consistent with aspiration versus less likely pneumonia. 2. Linear consolidation in the right middle lobe consistent with atelectasis versus aspiration. 3. Trace left and small right pleural effusions. 4. Support lines and tubes in good position. 5. Prominent coronary artery calcifications. Nico Vaughan MD Head CT 11/05/16 0000 Signed Impressions: Service Date/Time: Saturday, November 05, 2016 21:43 - CONCLUSION: 1. No acute intracranial abnormalities. Pansinus fluid opacification. Cristofer De Santiago MD Abdomen X-Ray 10/29/16 0600 Signed Impressions: Service Date/Time: Saturday, October 29, 2016 04:41 - CONCLUSION: Nonspecific , nonobstructive bowel gas pattern. No evidence of free air. Jayson Taylor MD Carotid Artery Ultrasound 10/25/16 0000 Signed Impressions: Service Date/Time: September 08:27 - CONCLUSION: Mild to moderate plaque in both carotid systems with less than 40%% diameter stenosis by velocity criteria. Jhonathan Dietz MD CT Angiography 10/25/16 0000 Signed Impressions: Service Date/Time: September 06:12 - CONCLUSION: 1. Negative for pulmonary embolism. 2. There is a fairly large area of masslike consolidation in the medial right lung involving posterior segment right upper lobe and medial aspect of right lower lobe. There is associated right hilar and mediastinal adenopathy measuring up to 2.1 cm. Differential diagnosis includes pneumonia or underlying lung neoplasm. Close followup imaging recommended after treatment for pneumonia, to assess for underlying mass. Cristofer De Santiago MD Physical Exam CONSTITUTIONAL/GENERAL: This is a morbidly obese patient, sedated int'd on vent TUBES/LINES/DRAINS: SKIN: No jaundice, rashes, or lesions. Skin temperature appropriate. Not diaphoretic. CARDIOVASCULAR: Afib on the monitor tachycardia without murmurs, gallops, or rubs. No JVD. Peripheral pulses symmetric. RESPIRATORY/CHEST: Symmetric, unlabored respirations. Clear to auscultation. Breath sounds equal bilaterally. No wheezes, rales, or rhonchi. GASTROINTESTINAL: Abdomen soft, non-tender, nondistended. No hepato-splenomegaly , or palpable masses. No guarding. Bowel sounds present. Dign[address]heilld in pl,jessica with liquid brown stool GENITOURINARY: Without palpable bladder distension. Santiago catheter in place with somewhat cloudy urine MUSCULOSKELETAL: Extremities without clubbing, cyanosis, less edema. LYMPHATICS: No palpable cervical or supraclavicular adenopathy. NEUROLOGICAL: Sedated. unresponsive PSYCHIATRIC: unable to assess Assessment & Plan Remarks PNA, Kleb oneumo - failrly sensitive ARDS Acute VDRF, failure to wean Fever: low grade - new infx - ? drug reaction - 2/2 ARDS - procalcitonine is quite low blood clx remain negative Abx associated diarrhea, C.diff negative Critically ill, unstable Abnormal UA, CANDIDURIA REC's: cont CFTX x 1 week cont fluconazol x 1 week fu P blood clx untill final fu clinically Discussed Condition With RN and Mariana Alcocer MD Nov 13, 2016 22:40
[2016-11-14] VITALS (19 sets, daily range): BP systolic 112–161; BP diastolic 65–80; PULSE 78–136; RESP 18; TEMP 97.9–99.1; O2SAT 90–95
[2016-11-14] MEDS: INSULIN NovoLIN REGULAR SUPPLEMENTAL SCALE SQ SCH ×6 (00:47→19:49)
[2016-11-14] MEDS: METOPROLOL TARTRATE 50 MG TAB PO SCH ×3 (00:48→17:50)
[2016-11-14] MEDS: CHLORHEXIDINE GLUCONATE 2 % 1 PACK (2 CLOTHS) TOP SCH (00:50)
[2016-11-14] MEDS: INSULIN DETEMIR 100 UNITS/ML VIAL SQ SCH ×2 (00:50→12:39)
[2016-11-14] MEDS: PROPOFOL 1000 MG/100 ML IV PRN ×7 (00:52→22:09)
--- NOTE | 2016-11-14 03:37 | RADRPT ---
EXAM DATE/TIME: 11/14/2016 02:34 [facility] COMPARISON: CHEST SINGLE AP, November 12, 2016, 7:42. INDICATIONS : Shortness of breath. MEDICAL HISTORY : Hypercholesterolemia. Renal calculi. Hypertension. Chronic obstructive pulmonary disease SURGICAL HISTORY : None. ENCOUNTER: Subsequent ACUITY: 3 weeks PAIN SCORE: Non-responsive. LOCATION: Bilateral chest FINDINGS: A single portable frontal view of the chest shows no significant change. Bilateral pleural effusions with bibasilar infiltrates. Tip of endotracheal tube 5 cm from the filiberto. The nasogastric tube in th e body of the stomach. Right-sided PICC line. Heart small enlarged. Scoliotic and degenerative spine. CONCLUSION: Unchanged bilateral pleural effusions and bibasilar infiltrates. Fito Mar Jr., MD on November 14, 2016 at 3:35 Board Certified Radiologist. This report was verified electronically.
[2016-11-14 04:43] LABS: AUTOMATED NEUTROPHIL # 11.6 TH/MM3 (1.8-7.7); BASOPHIL % 0.3 % (0.0-2.0); EOSINOPHIL # 0.1 TH/MM3 (0-0.4); EOSINOPHIL % 0.4 % (0.0-4.0); HEMATOCRIT 42.5 % (39.0-51.0); HEMO FLAGS DIFF FINAL; LYMPH % 5.7 % (9.0-44.0); LYMPHOCYTE # 0.7 TH/MM3 (1.0-4.8); MEAN CELL VOLUME 95.6 FL (80.0-100.0); MEAN CORPUSCULAR HEMOGLOBIN 30.4 PG (27.0-34.0); MEAN CORPUSCULAR HGB CONC 31.8 % (32.0-36.0); MONO % 4.9 % (0.0-8.0); NEUT % 88.7 % (16.0-70.0); PLATELET COUNT 132 TH/MM3 (150-450); RED BLOOD COUNT 4.44 MIL/MM3 (4.50-5.90); RED CELL DISTRIBUTION WIDTH 14.1 % (11.6-17.2)
[2016-11-14 05:00] LABS: ALKALINE PHOSPHATASE 46 U/L (45-117); ALT (GPT) 99 U/L (12-78); ANION GAP 4 MEQ/L (5-15); AST (GOT) 22 U/L (15-37); BICARBONATE 31.1 MEQ/L (21.0-32.0); BLOOD UREA NITROGEN 32 MG/DL (7-18); CHLORIDE 105 MEQ/L (98-107); GLOMERULAR FILTRATION RATE 164 ML/MIN (>89); MAGNESIUM 2.4 MG/DL (1.5-2.5); POTASSIUM 4.9 MEQ/L (3.5-5.1); SODIUM (NA) 140 MEQ/L (136-145); TOTAL BILIRUBIN ADULT 0.5 MG/DL (0.2-1.0)
[2016-11-14] MEDS: ISOSORBIDE DINITRATE 10 MG TAB PO SCH ×3 (05:13→23:43)
[2016-11-14] MEDS: DILTIAZEM INJ 125 MG in SODIUM CHLORIDE 0.9% INJ 100 ML IV PRN (05:14)
[2016-11-14] MEDS: cloNIDine HCL 0.3 MG TAB PO SCH ×3 (05:22→22:49)
[2016-11-14] MEDS: DILTIAZEM HCL 60 MG TAB PO SCH ×5 (05:22→22:49)
[2016-11-14] MEDS: RESP: ALBUTEROL 2.5 MG/IPRATROPIUM 0.5 MG NEB (SCH) NEB ×5 (07:59→23:32)
[2016-11-14] MEDS: RESP: BUDESONIDE 0.5 MG/2 ML NEB NEB SCH ×2 (07:59→19:37)
[2016-11-14] MEDS: FAMOTIDINE 20 MG/2 ML VIAL IV PUSH SCH ×2 (08:47→20:40)
[2016-11-14] MEDS: SODIUM CHLORIDE 0.9% FLUSH 10 ML FLUSH SCH ×2 (08:47→23:52)
[2016-11-14] MEDS: methylPREDNISolone SOD SUCC 40 MG/1 ML VIAL IV SCH (08:48)
[2016-11-14] MEDS: SODIUM CHLORIDE 0.9% FLUSH 10 ML FLUSH IV FLUSH SCH (08:48)
[2016-11-14] MEDS: SODIUM CHLORIDE 0.9% FLUSH 10 ML FLUSH IVF SCH (08:48)
[2016-11-14] MEDS: ARTIFICIAL TEARS OPTH OINT 3.5 APPLIC/3.5 GM TUBO EACH EYE SCH ×2 (08:49→21:41)
[2016-11-14] MEDS: CHLORHEXIDINE 0.12% (ORAL KIT) 15 ML CUP MT SCH ×2 (08:49→19:49)
--- NOTE | 2016-11-14 09:43 | HHI.CCPN ---
Subjective Remarks/Hospital Course 55-year-old very pleasant gentleman with past medical history of COPD, and hypertension presents complaining of shortness of breath and nausea, generalized fatigue and chills for 2 days. He thinks it has been from being out in the heat. Denies any fever, chest pain, vomiting, abdominal pain, focal weakness or numbness. In the emergency department his saturation was in mid 80s on arrival with auditory wheezing and tachypnea. He was placed on 4 liters of NC and saturating in the low 90. He does not use oxygen at home. He also mentioned 2 days ago, he came home and was sitting in a chair and was taking his shoes off when he passed out. States he woke up and was still on the chair. This has never happen before. 10/25: Patient intubated secondary to increasing oxygen requirements, altered mental status. Discussed with son. Somewhat hypertensive post intubation. 10/26: Placed on rotaprone bed last evening. Flolan initiated. Saturations improved. Afebrile. Remains on Nimbex drip. 10/27: T max 99.7. Tolerated on not prone position 2 hours yesterday. Tolerating trickle feeds. FiO2 down to 55% 10/28: Tmax 99.9. When unprone for chest x-ray this a.m. desaturated. Currently on 90% FiO2. Actually hypertensive. No bowel movements. Remains paralyzed 10/29: Remains intubated sedated on continuous Prone therapy Except for chest x- ray. Fever 100.8. Panculture requested. Zyvox added. Continue IV sedation with propofol and fentanyl and Versed, neuromuscular paralysis with Nimbex 10/30: Prone cycle changed to 8 hr prone, 1 hr supine from 10/29. Due to hypoxia will continue with same cycle today. Chest x-ray remains unchanged. Patient remains severely hypoxemic FiO2 at 75% PEEP at 16. WBC count worsened to 18. Remains neuromuscularly paralyzed. 10/31: Patient remains critically ill but stable. Oxygen saturation 95% on 55 of FiO2 and PEEP of 16. Reduce PEEP to 14, FiO2 to 50% and start weaning Flolan. Increase supine time to 4 hours, reduce Prone time to 6 hours 11/01: Patient remains intubated sedated critically ill on neuromuscular paralysis. FiO2 reduced to 50, I will attempt PEEP wean gradually to 12 today. Prone/supine cycles will be changed to 6 hours each 11/02: FiO2 remains at 50%, PEEP reduced from 14 to 12 today, TV increased to 600 and RR to 20, in anticipation of discontinuing prone therapy, which will be DCd today. Off Flolan for 2 days 11/03: off pronation. fio2 up to 65% , peep 12. agitation causing desaturation. minimal improvements. 11/04: good diuresis yesterday, but despite that, fio2 persists at 65% and spo2 decreasing to 91% today. no real improvements and some worsening of pulmonary function despite ongoing aggressive therapies. still not safe for SBT given hypoxia. also severely hypertensive this morning. 11/05: continues to diurese well and Cr still at baseline. fio2 at 90% however, and no clinical improvements in mental status or hypoxia. still unsafe for SBT given hypoxemia. off pathway. hypertension under much better control. poor neuro status is concerning. 11/06: Remains severely hypoxemic. FiO2 was 100% PEEP 14. I reduce FiO2 to 90% after increasing PEEP to 16. Developed a flutter with RVR overnight, currently on Cardizem drip. Unable to do SBT due to very high settings 11/07: Remains hypoxemic and but able to wean FiO2 down to 80% with PEEP of 16. Remains unresponsive on sedation. Unable to trach due to his high vent settings and high FiO2. Remains on Cardizem and 15 mg per hour, with rate controlled a flutter. We'll start by mouth Cardizem in an attempt to wean IV Cardizem 11/08: Remains critically ill hypoxic but FiO2 now weaned to 60%, PEEP remains at 16. Very heavily sedated no withdrawal to pain. Will hold all continuos sedation. Sputum culture with Klebsiella sensitive to Rocephin. A flutter persistent, will start IV heparin 11/09 Patient is sedated with Diprivan and intubated, On Cardizem drip 15mg/hr for Aflutter. Heparin drip stated yesterday. 11/10 Patient remains sedated and intubated. On Heparin drip. Persistent fever with Tmax 102.5. ETT was replaced yesterday. 11/11 Patient was placed on Cardizem and amio drips overnight for Afib with RVR. Sedated with Diprivan and intubated. On Heparin drip. T;99.3 this morning. 11/12 Patient remains intubated and sedated with Diprivan. On Cardizem drip 15mg/ hr. Afebrile, Tmax 100.6 11/13 Patient is sedate with Diprivan and intubated. In Afib with RVR now on Amio drip. Tmax 100,4 11/14 Remains intubated sedated with propofol and fentanyl. Afib rate controlled , remains on amiodarone and Cardizem gtt. Fio2 remains high at 70%, PEEP 12. CXR persistent bibasilar infiltrates/effusion Objective Vital Signs Date Time Temp Pulse Resp B/P (MAP) Pulse Ox O2 Delivery O2 Flow Rate FiO2 11/14/16 08:02 95 65 11/14/16 06:00 103 11/14/16 05:14 133/66 11/14/16 04:00 98.1 18 11/14/16 03:47 Ventilator Intake and Output 11/14/16 11/14/16 11/15/16 08:00 16:00 00:00 Intake Total 1690 ml Output Total 775 ml Balance 915 ml Result Diagram: 11/14/16 0354 11/14/16 0354 Imaging Last Impressions Chest X-Ray 11/12/16 0000 Signed Impressions: Service Date/Time: Saturday, November 12, 2016 07:42 - CONCLUSION: Stable chest x-ray with bibasilar opacities likely representing pleural effusion with associated volume loss and/or airspace consolidation. Jayson Levin MD Lower Extremity Ultrasound 11/09/16 0000 Signed Impressions: Service Date/Time: Wednesday, November 09, 2016 14:13 - CONCLUSION: Normal examination. Jayson Manning MD Liver Ultrasound 11/09/16 0000 Signed Impressions: Service Date/Time: Wednesday, November 09, 2016 13:58 - CONCLUSION: Sono dense liver without duct dilatation. 4 mm common duct. Ward Kim MD FACR Chest CT 11/06/16 0000 Signed Impressions: Service Date/Time: Sunday, November 06, 2016 11:24 - CONCLUSION: 1. Dense bilateral posterior lower lobe airspace consolidation consistent with aspiration versus less likely pneumonia. 2. Linear consolidation in the right middle lobe consistent with atelectasis versus aspiration. 3. Trace left and small right pleural effusions. 4. Support lines and tubes in good position. 5. Prominent coronary artery calcifications. Nico Vaughan MD Head CT 11/05/16 0000 Signed Impressions: Service Date/Time: Saturday, November 05, 2016 21:43 - CONCLUSION: 1. No acute intracranial abnormalities. Pansinus fluid opacification. Cristofer De Santiago MD Abdomen X-Ray 10/29/16 0600 Signed Impressions: Service Date/Time: Saturday, October 29, 2016 04:41 - CONCLUSION: Nonspecific , nonobstructive bowel gas pattern. No evidence of free air. Jayson Taylor MD Carotid Artery Ultrasound 10/25/16 0000 Signed Impressions: Service Date/Time: September 08:27 - CONCLUSION: Mild to moderate plaque in both carotid systems with less than 40%% diameter stenosis by velocity criteria. Jhonathan Dietz MD CT Angiography 10/25/16 0000 Signed Impressions: Service Date/Time: September 06:12 - CONCLUSION: 1. Negative for pulmonary embolism. 2. There is a fairly large area of masslike consolidation in the medial right lung involving posterior segment right upper lobe and medial aspect of right lower lobe. There is associated right hilar and mediastinal adenopathy measuring up to 2.1 cm. Differential diagnosis includes pneumonia or underlying lung neoplasm. Close followup imaging recommended after treatment for pneumonia, to assess for underlying mass. Cristofer De Santiago MD Objective Remarks GENERAL: 55-year-old male, sedated and intubated SKIN: Warm and dry. HEAD: Normocephalic. EYES: No scleral icterus. ENT: Orotracheally intubated NECK: Limited due to morbid obesity CARDIOVASCULAR: Atrial flutter with controlled rate. No murmurs RESPIRATORY: B/l equal air entry. Diminished at the bases GASTROINTESTINAL: Abdomen soft, obese. No organomegaly by limited exam MUSCULOSKELETAL: Nonpitting bilateral lower extremity edema. NEURO EXAM: Sedated. Grimaces to painful stimuli opens eyes. No withdrawal to pain A/P Assessment and Plan Assessment: morbidly obese male with Severe hypoxic respiratory failure, multilobar pneumonia, not improving, persistently hypoxic and not stable for SBT trials yet. off pathway. if we withdraw or even lessen full mechanical support, he would . remains critically ill. Likely will require tracheostomy and longer-term ventilation, but not stable for trach. 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 Daily sedation vacation prn Dilaudid for breakthrough. Haldol 5mg iv q4h prn for agitation. Head CT on admission revealed no acute intracranial findings, CT head 11/05- no acute findings. opacification of sinuses. Carotid ultrasound less than 50% stenosis bilaterally EEG 11/09: severe encephalopathy PT/OT for range of motion CV: Atrial fib/ flutter with RVR Hypertension- On Cardizem drip, and Amio drip. Wean to DC Cardizem gtt PO Cardizem 60 mg PO q6hr, Lopressor 50mg Q8, Clonidine 0.3mg Q8 and Isordil 10 mg 3 times a day for hypertension IV heparin for anticoagulation Echo 10/25 EF 60-65% Bumex 2 mg IV x1 Resp: Acute hypoxemic Respiratory failure - severe and persistent. Severe ARDS COPD exacerbation Pneumonia most likely community-acquired Obesity hypoventilation syndrome Tobacco use disorder CT pulmonary angio revealed no pulmonary embolus. Masslike consolidation in the posterior right upper lobe and medial right lower lobe. Lymphadenopathy to 1 cm right hilum and subcarinal. Atelectasis left lower lobe. PRVC 18, TV 700, IT:1.2, PEEP:12, FIO2 70% to keep Saturation >88%. Will Need trach once PEEP <10, FiO2<50%. Intubated 10/25 CXR 11/14- Bibasilar infiltrates/effusion ( unchanged) Discontinued Prone therapy 11/02/16. Ventilator bundle, Albuterol/ipratropium every 4 hours with albuterol every 2 hours when necessary dyspnea Budesonide 0.5 mg aerosols twice a day. Solu-Medrol 40 mg IV daily Pulmonary/Dr. Wynne following GI: Morbid Obesity Elevated LFT's Monitor LFT, US liver: No ductal dilatation Continue tube feeds-Vital high protein 1.5@40ml/hr Famotidine 20 milligrams IV twice a day for GI prophylaxis : Monitor renal function, I/O's, electrolytes replacement per protocol. Endo: Hyperglycemia- poorly controlled. SSI to q4h, high dose. Levemir 35U q12- increase to 45 q12 . Heme: Leukocytosis Monitor CBC, coags- patient is on heparin drip. ID: Severe sepsis Pneumonia s/p Rocephin 11/02-11/09 for Enterobacter pneumonia. Repeat sputum Klebsiella sensitive to Rocephin 10/29/16-Enterobacter in sputum, 11/06/16, 11/10 sputum- Klebsiella Urine Legionella and pneumococcal antigens negative and influenza negative Follow up on BC from 11/08, Santiago replaced 11/09. C-diff PCR is negative Continue abx per ID ( Rocephin, Diflucan). ID is following-Dr. Patel Access RUE PICC placed 11/05 Prophylaxis - GI, famotidine - DVT - IV heparin 11/09 Doppler US LE negative for DVT Critical Care: The total critical care time was 32 minutes. Time to perform other separately billable procedures was not included in the critical care time. Patient remains critically ill with severe hypoxemic respiratory failure and pneumonia. Requiring very high ventilator settings to maintain his oxygen saturation. Agitated delirium and encephalopathy complicating multi-organ system dysfunction and preventing further improvements. Roro Tyler MD Nov 14, 2016 09:43
[2016-11-14] MEDS ORDERED: BUMETANIDE INJ 1 MG/4 ML VIAL IV PUSH ONE (10:45)
[2016-11-14] MEDS: fentaNYL DRIP 250 ML IV PRN ×2 (10:57→20:40)
[2016-11-14 11:13] LABS: APTT (PATIENT) 28.2 SEC (24.3-30.1)
--- NOTE | 2016-11-14 15:12 | RADRPT ---
EXAM DATE/TIME: 11/14/2016 14:40 [facility] COMPARISON: CHEST SINGLE AP, November 14, 2016, 2:34. INDICATIONS : Post PICC line placement. MEDICAL HISTORY : Hypercholesterolemia. Renal calculi. Hypertension. Chronic obstructive pulmonary disease. SURGICAL HISTORY : None. ENCOUNTER: Subsequent ACUITY: 1 day PAIN SCORE: Non-responsive. LOCATION: Bilateral chest FINDINGS: Portable AP view of the chest demonstrates a normal-sized cardiac silhouette. ETT and nasogastric tub e remain present. Right upper extremity PICC is present with distal tip in the region of the axillary vein. It has been retracted since the prior study. There are stable bibasilar pleural-parenchymal op acities. No pneumothorax is present. CONCLUSION: Right upper extremity PICC distal tip in the region of the right axillary vein. Jayson Levin MD on November 14, 2016 at 15:10 Board Certified Radiologist. This report was verified electronically.
[2016-11-14] MEDS: AMIODARONE INJ 450 MG in DEXTROSE 5% IN WATE(EXCEL) INJ 241 ML IV SCH ×2 (15:35)
[2016-11-14] MEDS: cefTRIAXone INJ 2,000 MG in SODIUM CHLORIDE 0.9% INJ 100 ML IV SCH (18:06)
[2016-11-14] MEDS: FLUCONAZOLE 200 MG PREMIX BAG 100 ML IV SCH (19:49)
[2016-11-14 21:09] LABS: APTT (PATIENT) 35.7 SEC (24.3-30.1)
[2016-11-14] MEDS: HEPARIN-D5W 25,000 U/250 ML 250 ML IV PRN (23:53)
[2016-11-15] VITALS (20 sets, daily range): BP systolic 111–165; BP diastolic 68–85; PULSE 86–138; RESP 18–19; TEMP 98.8–100.1; O2SAT 88–93
[2016-11-15] MEDS: METOPROLOL TARTRATE 50 MG TAB PO SCH ×3 (00:30→16:59)
[2016-11-15] MEDS: INSULIN DETEMIR 100 UNITS/ML VIAL SQ SCH ×2 (00:31→13:11)
[2016-11-15] MEDS: INSULIN NovoLIN REGULAR SUPPLEMENTAL SCALE SQ SCH ×6 (00:32→20:49)
[2016-11-15] MEDS: PROPOFOL 1000 MG/100 ML IV PRN ×8 (02:36→23:02)
[2016-11-15] MEDS: RESP: ALBUTEROL 2.5 MG/IPRATROPIUM 0.5 MG NEB (SCH) NEB ×6 (03:48→23:19)
[2016-11-15] MEDS: CHLORHEXIDINE GLUCONATE 2 % 1 PACK (2 CLOTHS) TOP SCH (04:00)
[2016-11-15] MEDS: DILTIAZEM INJ 125 MG in SODIUM CHLORIDE 0.9% INJ 100 ML IV PRN ×2 (04:06→12:23)
[2016-11-15] MEDS: DILTIAZEM HCL 60 MG TAB PO SCH ×2 (04:49→13:11)
[2016-11-15] MEDS: cloNIDine HCL 0.3 MG TAB PO SCH ×3 (04:49→21:39)
--- NOTE | 2016-11-15 05:05 | RADRPT ---
EXAM DATE/TIME: 11/15/2016 04:20 [facility] COMPARISON: CHEST SINGLE AP, November 14, 2016, 14:40. INDICATIONS : Shortness of breath, possible pulmonary disease. MEDICAL HISTORY : Hypercholesterolemia. Renal calculi. Hypertension. COPD SURGICAL HISTORY : None. ENCOUNTER: Subsequent ACUITY: 3 weeks PAIN SCORE: Non-responsive. LOCATION: Bilateral chest FINDINGS: A single portable frontal view the chest shows persistent and unchanged bibasilar pulmonary infiltrat es with small effusions. The heart at the upper limits of normal in terms of size. Tip of endotrachea l tube 5 cm from the filiberto. Nasogastric tube tip courses off the inferior margin of the film. CONCLUSION: Unchanged bilateral pleural effusions and bibasilar infiltrates. Fito Mar Jr., MD on November 15, 2016 at 5:03 Board Certified Radiologist. This report was verified electronically.
[2016-11-15 05:10] LABS: AUTOMATED NEUTROPHIL # 12.2 TH/MM3 (1.8-7.7); BASOPHIL % 0.2 % (0.0-2.0); EOSINOPHIL % 0.3 % (0.0-4.0); HEMATOCRIT 41.4 % (39.0-51.0); LYMPH % 6.1 % (9.0-44.0); LYMPHOCYTE # 0.9 TH/MM3 (1.0-4.8); MEAN CELL VOLUME 94.8 FL (80.0-100.0); MEAN CORPUSCULAR HEMOGLOBIN 30.5 PG (27.0-34.0); MEAN CORPUSCULAR HGB CONC 32.1 % (32.0-36.0); MONO % 6.7 % (0.0-8.0); NEUT % 86.7 % (16.0-70.0); PLATELET COUNT 137 TH/MM3 (150-450); RED BLOOD COUNT 4.37 MIL/MM3 (4.50-5.90); RED CELL DISTRIBUTION WIDTH 13.7 % (11.6-17.2)
[2016-11-15 05:25] LABS: HEMO FLAGS AUTO DIFF
[2016-11-15] MEDS: AMIODARONE INJ 450 MG in DEXTROSE 5% IN WATE(EXCEL) INJ 241 ML IV SCH ×6 (05:41→21:39)
[2016-11-15] MEDS: fentaNYL DRIP 250 ML IV PRN ×2 (06:17→17:23)
[2016-11-15] MEDS: ISOSORBIDE DINITRATE 10 MG TAB PO SCH ×3 (06:17→21:39)
[2016-11-15 07:12] LABS: ALT (GPT) 97 U/L (12-78); ANION GAP 9 MEQ/L (5-15); AST (GOT) 21 U/L (15-37); BICARBONATE 29.3 MEQ/L (21.0-32.0); BLOOD UREA NITROGEN 31 MG/DL (7-18); CHLORIDE 101 MEQ/L (98-107); GLOMERULAR FILTRATION RATE 154 ML/MIN (>89); POTASSIUM 4.6 MEQ/L (3.5-5.1); SODIUM (NA) 139 MEQ/L (136-145)
[2016-11-15 07:13] LABS: ALKALINE PHOSPHATASE 45 U/L (45-117); TOTAL BILIRUBIN ADULT 0.4 MG/DL (0.2-1.0)
[2016-11-15] MEDS: RESP: BUDESONIDE 0.5 MG/2 ML NEB NEB SCH ×2 (07:24→19:34)
[2016-11-15 07:36] LABS: BANDS 13 % (0-6); NEUTROPHIL # MANUAL DIFF 11.3 TH/MM3 (1.8-7.7); POLYS (SEG NEUTROPHILS) 68 % (16-70); WBC DIFF SAMPLE 100
[2016-11-15 07:37] LABS: PLATELET ESTIMATE SMEAR LOW (NORMAL); PLATELET MORPHOLOGY NORMAL (NORMAL); SCAN/DIFF FINAL DIFF MANUAL
[2016-11-15] MEDS: SODIUM CHLORIDE 0.9% FLUSH 10 ML FLUSH SCH ×2 (08:21→20:11)
[2016-11-15] MEDS: FAMOTIDINE 20 MG/2 ML VIAL IV PUSH SCH ×2 (08:21→20:11)
[2016-11-15] MEDS: methylPREDNISolone SOD SUCC 40 MG/1 ML VIAL IV SCH (08:21)
[2016-11-15] MEDS: SODIUM CHLORIDE 0.9% FLUSH 10 ML FLUSH IV FLUSH SCH (08:22)
[2016-11-15] MEDS: SODIUM CHLORIDE 0.9% FLUSH 10 ML FLUSH IVF SCH (08:22)
[2016-11-15] MEDS: ARTIFICIAL TEARS OPTH OINT 3.5 APPLIC/3.5 GM TUBO EACH EYE SCH ×2 (08:23→20:11)
[2016-11-15] MEDS: CHLORHEXIDINE 0.12% (ORAL KIT) 15 ML CUP MT SCH ×2 (08:23→20:00)
--- NOTE | 2016-11-15 11:21 | HHI.IDPN ---
Subjective Subjective Remarks no fever not tolerating weaning, still on 35% FiO2, PEEP 12 WBC 14K Antibiotics CFTX fluconazole Allergies: Coded Allergies: No Known Allergies (Unverified , 10/25/16) Objective . Vital Signs Date Time Temp Pulse Resp B/P (MAP) Pulse Ox O2 Delivery O2 Flow Rate FiO2 11/15/16 10:00 102 11/15/16 08:54 92 65 11/15/16 08:00 99.0 132 18 151/81 (104) 92 11/15/16 08:00 65 11/15/16 08:00 132 11/15/16 06:17 109 132/93 11/15/16 06:00 104 11/15/16 04:06 130 151/76 11/15/16 04:05 90 65 11/15/16 04:00 65 11/15/16 04:00 99.2 116 18 151/76 (101) 90 11/15/16 04:00 116 11/15/16 02:00 134 11/15/16 01:28 91 65 11/15/16 00:00 134 11/15/16 00:00 99.0 134 18 115/73 (87) 89 11/15/16 00:00 65 11/14/16 22:19 92 65 11/14/16 22:00 116 11/14/16 20:00 65 11/14/16 20:00 99.1 105 18 138/71 (93) 93 11/14/16 20:00 105 11/14/16 19:41 92 65 11/14/16 18:00 134 11/14/16 16:08 91 65 11/14/16 16:00 65 11/14/16 16:00 136 11/14/16 16:00 99.1 136 18 119/65 (83) 90 11/14/16 15:35 156 172/84 11/14/16 14:00 128 11/14/16 13:00 60 11/14/16 12:50 93 65 11/14/16 12:00 70 11/14/16 12:00 99.0 102 18 161/76 (104) 91 11/14/16 12:00 102 . Laboratory Tests Test 11/14/16 03:54 11/15/16 03:56 White Blood Count 13.0 TH/MM3 14.0 TH/MM3 Red Blood Count 4.44 MIL/MM3 4.37 MIL/MM3 Hemoglobin 13.5 GM/DL 13.3 GM/DL Hematocrit 42.5 % 41.4 % Mean Corpuscular Volume 95.6 FL 94.8 FL Mean Corpuscular Hemoglobin 30.4 PG 30.5 PG Mean Corpuscular Hemoglobin Concent 31.8 % 32.1 % Red Cell Distribution Width 14.1 % 13.7 % Platelet Count 132 TH/MM3 137 TH/MM3 Mean Platelet Volume 10.3 FL 11.1 FL Neutrophils (%) (Auto) 88.7 % 86.7 % Lymphocytes (%) (Auto) 5.7 % 6.1 % Monocytes (%) (Auto) 4.9 % 6.7 % Eosinophils (%) (Auto) 0.4 % 0.3 % Basophils (%) (Auto) 0.3 % 0.2 % Neutrophils # (Auto) 11.6 TH/MM3 12.2 TH/MM3 Lymphocytes # (Auto) 0.7 TH/MM3 0.9 TH/MM3 Monocytes # (Auto) 0.6 TH/MM3 0.9 TH/MM3 Eosinophils # (Auto) 0.1 TH/MM3 0.0 TH/MM3 Basophils # (Auto) 0.0 TH/MM3 0.0 TH/MM3 CBC Comment DIFF FINAL AUTO DIFF Differential Comment FINAL DIFF MANUAL Differential Total Cells Counted 100 Neutrophils % (Manual) 68 % Band Neutrophils % 13 % Lymphocytes % 13 % Monocytes % 6 % Neutrophils # (Manual) 11.3 TH/MM3 Platelet Estimate LOW Platelet Morphology Comment NORMAL Laboratory Tests Test 11/14/16 03:54 11/15/16 03:56 Blood Urea Nitrogen 32 MG/DL 31 MG/DL Creatinine 0.52 MG/DL 0.55 MG/DL Random Glucose 266 MG/DL 177 MG/DL Total Protein 5.7 GM/DL 5.8 GM/DL Albumin 2.1 GM/DL 2.2 GM/DL Calcium Level 8.0 MG/DL 8.3 MG/DL Phosphorus Level 2.8 MG/DL Magnesium Level 2.4 MG/DL Alkaline Phosphatase 46 U/L 45 U/L Aspartate Amino Transf (AST/SGOT) 22 U/L 21 U/L Alanine Aminotransferase (ALT/SGPT) 99 U/L 97 U/L Total Bilirubin 0.5 MG/DL 0.4 MG/DL Sodium Level 140 MEQ/L 139 MEQ/L Potassium Level 4.9 MEQ/L 4.6 MEQ/L Chloride Level 105 MEQ/L 101 MEQ/L Carbon Dioxide Level 31.1 MEQ/L 29.3 MEQ/L Anion Gap 4 MEQ/L 9 MEQ/L Estimat Glomerular Filtration Rate 164 ML/MIN 154 ML/MIN Imaging Last Impressions Chest X-Ray 11/15/16 0600 Signed Impressions: Service Date/Time: October 04:20 - CONCLUSION: Unchanged bilateral pleural effusions and bibasilar infiltrates. Fito Mar Jr., MD Lower Extremity Ultrasound 11/09/16 0000 Signed Impressions: Service Date/Time: Wednesday, November 09, 2016 14:13 - CONCLUSION: Normal examination. Jayson Manning MD Liver Ultrasound 11/09/16 Signed Impressions: Service Date/Time: Wednesday, November 09, 2016 13:58 - CONCLUSION: Sono dense liver without duct dilatation. 4 mm common duct. Ward Kim MD FACR Chest CT 11/06/16 0000 Signed Impressions: Service Date/Time: Sunday, November 06, 2016 11:24 - CONCLUSION: 1. Dense bilateral posterior lower lobe airspace consolidation consistent with aspiration versus less likely pneumonia. 2. Linear consolidation in the right middle lobe consistent with atelectasis versus aspiration. 3. Trace left and small right pleural effusions. 4. Support lines and tubes in good position. 5. Prominent coronary artery calcifications. Nico Vaughan MD Head CT 11/05/16 0000 Signed Impressions: Service Date/Time: Saturday, November 05, 2016 21:43 - CONCLUSION: 1. No acute intracranial abnormalities. Pansinus fluid opacification. Cristofer De Santiago MD Abdomen X-Ray 10/29/16 0600 Signed Impressions: Service Date/Time: Saturday, October 29, 2016 04:41 - CONCLUSION: Nonspecific , nonobstructive bowel gas pattern. No evidence of free air. Jayson Taylor MD Carotid Artery Ultrasound 10/25/16 0000 Signed Impressions: Service Date/Time: September 08:27 - CONCLUSION: Mild to moderate plaque in both carotid systems with less than 40%% diameter stenosis by velocity criteria. Jhonathan Dietz MD CT Angiography 10/25/16 Signed Impressions: Service Date/Time: September 06:12 - CONCLUSION: 1. Negative for pulmonary embolism. 2. There is a fairly large area of masslike consolidation in the medial right lung involving posterior segment right upper lobe and medial aspect of right lower lobe. There is associated right hilar and mediastinal adenopathy measuring up to 2.1 cm. Differential diagnosis includes pneumonia or underlying lung neoplasm. Close followup imaging recommended after treatment for pneumonia, to assess for underlying mass. Cristofer De Santiago MD Physical Exam CONSTITUTIONAL/GENERAL: This is a morbidly obese patient, sedated int'd on vent TUBES/LINES/DRAINS: SKIN: No jaundice, rashes, or lesions. Skin temperature appropriate. Not diaphoretic. CARDIOVASCULAR: Afib on the monitor tachycardia without murmurs, gallops, or rubs. No JVD. Peripheral pulses symmetric. RESPIRATORY/CHEST: Symmetric, unlabored respirations. Clear to auscultation. Breath sounds equal bilaterally. No wheezes, rales, or rhonchi. GASTROINTESTINAL: Abdomen soft, non-tender, mildly distended. No hepato- splenomegaly, or palpable masses. No guarding. Bowel sounds present. Dignisheilld in pl,jessica with liquid brown stool GENITOURINARY: Without palpable bladder distension. Santiago catheter in place with somewhat cloudy urine MUSCULOSKELETAL: Extremities without clubbing, cyanosis, less edema, but still about 2-3+ LYMPHATICS: No palpable cervical or supraclavicular adenopathy. NEUROLOGICAL: Sedated. opens eyes to voice and tactale stimulation PSYCHIATRIC: unable to assess Assessment & Plan Remarks PNA, Kleb oneumo - failrly sensitive ARDS Acute VDRF, failure to wean Fever: low grade - new infx - ? drug reaction - 2/2 ARDS - procalcitonine is quite low blood clx remain negative Abx associated diarrhea, C.diff negative Abnormal UA, CANDIDURIA Persiastent leukocytosis - worse again today REC's: cont CFTX x 1 week cont fluconazol x 1 week fu P blood clx untill final fu clinically fu WBC and temps Discussed Condition With Mariana De Guzman MD Nov 15, 2016 11:21
[2016-11-15] MEDS: HEPARIN-D5W 25,000 U/250 ML 250 ML IV PRN (14:43)
[2016-11-15 14:53] LABS: APTT (PATIENT) 41.4 SEC (24.3-30.1)
[2016-11-15] MEDS ORDERED: NITROGLYCERIN 2% OINT 1 GM PACKET TOPICAL PRN (16:15)
--- NOTE | 2016-11-15 16:20 | HHI.CCPN ---
Subjective Remarks/Hospital Course 56-year-old very pleasant gentleman with past medical history of COPD, and hypertension presents complaining of shortness of breath and nausea, generalized fatigue and chills for 2 days. He thinks it has been from being out in the heat. Denies any fever, chest pain, vomiting, abdominal pain, focal weakness or numbness. In the emergency department his saturation was in mid 80s on arrival with auditory wheezing and tachypnea. He was placed on 4 liters of NC and saturating in the low 90. He does not use oxygen at home. He also mentioned 2 days ago, he came home and was sitting in a chair and was taking his shoes off when he passed out. States he woke up and was still on the chair. This has never happen before. 10/25: Patient intubated secondary to increasing oxygen requirements, altered mental status. Discussed with son. Somewhat hypertensive post intubation. 10/26: Placed on rotaprone bed last evening. Flolan initiated. Saturations improved. Afebrile. Remains on Nimbex drip. 10/27: T max 99.7. Tolerated on not prone position 2 hours yesterday. Tolerating trickle feeds. FiO2 down to 55% 10/28: Tmax 99.9. When unprone for chest x-ray this a.m. desaturated. Currently on 90% FiO2. Actually hypertensive. No bowel movements. Remains paralyzed 10/29: Remains intubated sedated on continuous Prone therapy Except for chest x- ray. Fever 100.8. Panculture requested. Zyvox added. Continue IV sedation with propofol and fentanyl and Versed, neuromuscular paralysis with Nimbex 10/30: Prone cycle changed to 8 hr prone, 1 hr supine from 10/29. Due to hypoxia will continue with same cycle today. Chest x-ray remains unchanged. Patient remains severely hypoxemic FiO2 at 75% PEEP at 16. WBC count worsened to 18. Remains neuromuscularly paralyzed. 10/31: Patient remains critically ill but stable. Oxygen saturation 95% on 55 of FiO2 and PEEP of 16. Reduce PEEP to 14, FiO2 to 50% and start weaning Flolan. Increase supine time to 4 hours, reduce Prone time to 6 hours 11/01: Patient remains intubated sedated critically ill on neuromuscular paralysis. FiO2 reduced to 50, I will attempt PEEP wean gradually to 12 today. Prone/supine cycles will be changed to 6 hours each 11/02: FiO2 remains at 50%, PEEP reduced from 14 to 12 today, TV increased to 600 and RR to 20, in anticipation of discontinuing prone therapy, which will be DCd today. Off Flolan for 2 days 11/03: off pronation. fio2 up to 65% , peep 12. agitation causing desaturation. minimal improvements. 11/04: good diuresis yesterday, but despite that, fio2 persists at 65% and spo2 decreasing to 91% today. no real improvements and some worsening of pulmonary function despite ongoing aggressive therapies. still not safe for SBT given hypoxia. also severely hypertensive this morning. 11/05: continues to diurese well and Cr still at baseline. fio2 at 90% however, and no clinical improvements in mental status or hypoxia. still unsafe for SBT given hypoxemia. off pathway. hypertension under much better control. poor neuro status is concerning. 11/06: Remains severely hypoxemic. FiO2 was 100% PEEP 14. I reduce FiO2 to 90% after increasing PEEP to 16. Developed a flutter with RVR overnight, currently on Cardizem drip. Unable to do SBT due to very high settings 11/07: Remains hypoxemic and but able to wean FiO2 down to 80% with PEEP of 16. Remains unresponsive on sedation. Unable to trach due to his high vent settings and high FiO2. Remains on Cardizem and 15 mg per hour, with rate controlled a flutter. We'll start by mouth Cardizem in an attempt to wean IV Cardizem 11/08: Remains critically ill hypoxic but FiO2 now weaned to 60%, PEEP remains at 16. Very heavily sedated no withdrawal to pain. Will hold all continuos sedation. Sputum culture with Klebsiella sensitive to Rocephin. A flutter persistent, will start IV heparin 11/09 Patient is sedated with Diprivan and intubated, On Cardizem drip 15mg/hr for Aflutter. Heparin drip stated yesterday. 11/10 Patient remains sedated and intubated. On Heparin drip. Persistent fever with Tmax 102.5. ETT was replaced yesterday. 11/11 Patient was placed on Cardizem and amio drips overnight for Afib with RVR. Sedated with Diprivan and intubated. On Heparin drip. T;99.3 this morning. 11/12 Patient remains intubated and sedated with Diprivan. On Cardizem drip 15mg/ hr. Afebrile, Tmax 100.6 11/13 Patient is sedate with Diprivan and intubated. In Afib with RVR now on Amio drip. Tmax 100,4 11/14 Remains intubated sedated with propofol and fentanyl. Afib rate controlled , remains on amiodarone and Cardizem gtt. Fio2 remains high at 70%, PEEP 12. CXR persistent bibasilar infiltrates/effusion Subjective 11/15: Currently sedated with propofol and fentanyl drips. Currently in A. fib/ flutter on amiodarone drip and Cardizem drip. PEEP increased to 14. FiO2 65. Objective Vital Signs Date Time Temp Pulse Resp B/P (MAP) Pulse Ox O2 Delivery O2 Flow Rate FiO2 11/15/16 14:46 91 65 11/15/16 14:00 101 11/15/16 12:23 126/70 11/15/16 12:00 100.1 18 11/14/16 03:47 Ventilator Intake and Output 11/15/16 11/15/16 11/16/16 08:00 16:00 00:00 Intake Total 600 ml 340 ml Output Total 550 ml Balance 50 ml 340 ml Result Diagram: 11/15/16 0356 11/15/16 0356 Other Results Microbiology Date/Time Source Procedure Growth Status 11/10/16 11:40 Blood Peripheral Aerobic Blood Culture - Final NO GROWTH IN 5 DAYS Complete 11/10/16 11:40 Blood Peripheral Anaerobic Blood Culture - Final NO GROWTH IN 5 DAYS Complete 11/08/16 14:15 Stool Stool Stool Occult Blood (TYLER) - Final HEMOCCULT NEGATIVE Complete 11/10/16 05:45 Sputum Endotracheal Gram Stain - Final Complete 11/10/16 05:45 Sputum Culture - Final Klebsiella Pneumoniae Complete 11/11/16 01:15 Urine Catheterized Urine Urine Culture - Final Ana Albicans Complete Imaging Last Impressions Chest X-Ray 11/15/16 0600 Signed Impressions: Service Date/Time: October 04:20 - CONCLUSION: Unchanged bilateral pleural effusions and bibasilar infiltrates. Fito Mar Jr., MD Lower Extremity Ultrasound 11/09/16 0000 Signed Impressions: Service Date/Time: Wednesday, November 09, 2016 14:13 - CONCLUSION: Normal examination. Jayson Manning MD Liver Ultrasound 11/09/16 0000 Signed Impressions: Service Date/Time: Wednesday, November 09, 2016 13:58 - CONCLUSION: Sono dense liver without duct dilatation. 4 mm common duct. Ward Kim MD FACR Chest CT 11/06/16 0000 Signed Impressions: Service Date/Time: Sunday, November 06, 2016 11:24 - CONCLUSION: 1. Dense bilateral posterior lower lobe airspace consolidation consistent with aspiration versus less likely pneumonia. 2. Linear consolidation in the right middle lobe consistent with atelectasis versus aspiration. 3. Trace left and small right pleural effusions. 4. Support lines and tubes in good position. 5. Prominent coronary artery calcifications. Nico Vaughan MD Head CT 11/05/16 0000 Signed Impressions: Service Date/Time: Saturday, November 05, 2016 21:43 - CONCLUSION: 1. No acute intracranial abnormalities. Pansinus fluid opacification. Cristofer De Santiago MD Abdomen X-Ray 10/29/16 0600 Signed Impressions: Service Date/Time: Saturday, October 29, 2016 04:41 - CONCLUSION: Nonspecific , nonobstructive bowel gas pattern. No evidence of free air. Jayson Taylor MD Carotid Artery Ultrasound 10/25/16 0000 Signed Impressions: Service Date/Time: September 08:27 - CONCLUSION: Mild to moderate plaque in both carotid systems with less than 40%% diameter stenosis by velocity criteria. Jhonathan Dietz MD CT Angiography 10/25/16 0000 Signed Impressions: Service Date/Time: September 06:12 - CONCLUSION: 1. Negative for pulmonary embolism. 2. There is a fairly large area of masslike consolidation in the medial right lung involving posterior segment right upper lobe and medial aspect of right lower lobe. There is associated right hilar and mediastinal adenopathy measuring up to 2.1 cm. Differential diagnosis includes pneumonia or underlying lung neoplasm. Close followup imaging recommended after treatment for pneumonia, to assess for underlying mass. Cristofer De Santiago MD Objective Remarks GENERAL: 56-year-old male, critically ill currently orotracheally intubated SKIN: Warm and dry. Positive intertrigo HEAD: Atraumatic. Normocephalic. EYES: Pupils equal and round about 3 mm bilaterally and reactive. No scleral icterus. No injection or drainage. ENT: No nasal bleeding or discharge. Mucous membranes pink and moist. NECK: Trachea midline. No JVD. CARDIOVASCULAR: Tachycardia, IR. S1, S2 no S4. Diminished heart sounds. Without murmur, clicks, or rubs RESPIRATORY: To Ms. Wojciech sounds throughout. Few cocci appreciated in bases bilaterally. Diminished. GASTROINTESTINAL: Abdomen soft, obese. Hypoactive bowel sounds appreciated MUSCULOSKELETAL: Extremities with trace lower extremity bilateral edema. No obvious deformities. NEUROLOGICAL: Positive gag. Positive corneal reflex. 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 Haldol 5mg iv q4h prn for agitation. Head CT on admission revealed no acute intracranial findings, CT head 11/05- no acute findings. opacification of sinuses. Carotid ultrasound less than 50% stenosis bilaterally EEG 11/09: severe encephalopathy PT/OT for range of motion CV: Atrial fib/ flutter with RVR Hypertension- On Cardizem drip at 5 mg an hour, and Amio drip. An 0.5 mg/mL PO Cardizem 90 mg PO q6hr, Lopressor 50mg Q8, Clonidine 0.3mg Q8 and Isordil 10 mg 3 times a day for hypertension IV heparin for anticoagulation Echo 10/25 EF 60-65% Resp: Acute hypoxemic Respiratory failure - severe and persistent. Severe ARDS COPD exacerbation Pneumonia most likely community-acquired Obesity hypoventilation syndrome Tobacco use disorder CT pulmonary angio revealed no pulmonary embolus. Masslike consolidation in the posterior right upper lobe and medial right lower lobe. Lymphadenopathy to 1 cm right hilum and subcarinal. Atelectasis left lower lobe. PRVC 18, TV 700, IT:1.2, PEEP:14, FIO2 65% to keep Saturation >88%. Will Need trach once PEEP <10, FiO2<50%. Intubated 10/25 CXR 11/14- Bibasilar infiltrates/effusion ( unchanged) Discontinued Prone therapy 11/02/16. Ventilator bundle, Albuterol/ipratropium every 4 hours with albuterol every 2 hours when necessary dyspnea Budesonide 0.5 mg aerosols twice a day. Solu-Medrol 40 mg IV daily Pulmonary/Dr. Wynne following GI: Morbid Obesity Elevated LFT's Monitor LFT, US liver: No ductal dilatation Continue tube feeds-Vital high protein 1.5@40ml/hr Famotidine 20 milligrams IV twice a day for GI prophylaxis : Monitor renal function, I/O's, electrolytes replacement per protocol. Endo: Hyperglycemia- poorly controlled. SSI to q4h, high dose. Insulin detemir 45U q12- . Heme: Leukocytosis Monitor CBC, coags- patient is on heparin drip. ID: Severe sepsis Pneumonia s/p ceftriaxone 11/02-11/09 for Enterobacter pneumonia. Repeat sputum Klebsiella sensitive to Rocephin 10/29/16-Enterobacter in sputum, 11/06/16, 11/10 sputum- Klebsiella Urine Legionella and pneumococcal antigens negative and influenza negative Follow up on BC from 11/08, Santiago replaced 11/09. C-diff PCR is negative Continue abx per ID (ceftriaxone, Diflucan). ID is following-Dr. Patel Access RUE PICC placed 11/05 and removed yesterday. Replace today Prophylaxis - GI, famotidine - DVT - IV heparin 11/09 Doppler US LE negative for DVT Critical Care: The total critical care time was 35 minutes. Time to perform other separately billable procedures was not included in the critical care time. Ubaldo Story MD Nov 15, 2016 16:20
[2016-11-15] MEDS: DILTIAZEM HCL 90 MG TAB PO SCH ×2 (17:23→23:57)
[2016-11-15] MEDS: cefTRIAXone INJ 2,000 MG in SODIUM CHLORIDE 0.9% INJ 100 ML IV SCH (17:23)
[2016-11-15] MEDS ORDERED: DILTIAZEM HCL 30 MG TAB PO SCH (18:00)
[2016-11-15] MEDS: FLUCONAZOLE 200 MG PREMIX BAG 100 ML IV SCH (20:11)
[2016-11-16] VITALS (19 sets, daily range): BP systolic 124–185; BP diastolic 63–102; PULSE 68–137; RESP 16–18; TEMP 98.6–99.1; O2SAT 88–94
[2016-11-16] MEDS: INSULIN NovoLIN REGULAR SUPPLEMENTAL SCALE SQ SCH ×6 (00:26→22:03)
[2016-11-16] MEDS: METOPROLOL TARTRATE 50 MG TAB PO SCH ×3 (01:00→17:25)
[2016-11-16] MEDS: INSULIN DETEMIR 100 UNITS/ML VIAL SQ SCH ×2 (01:00→14:49)
[2016-11-16] MEDS: PROPOFOL 1000 MG/100 ML IV PRN ×11 (01:15→22:00)
[2016-11-16] MEDS: DILTIAZEM INJ 125 MG in SODIUM CHLORIDE 0.9% INJ 100 ML IV PRN (02:17)
[2016-11-16] MEDS: RESP: ALBUTEROL 2.5 MG/IPRATROPIUM 0.5 MG NEB (SCH) NEB ×6 (03:30→23:24)
[2016-11-16] MEDS: HEPARIN-D5W 25,000 U/250 ML 250 ML IV PRN (03:48)
[2016-11-16] MEDS: fentaNYL DRIP 250 ML IV PRN ×5 (03:48→22:56)
[2016-11-16] MEDS: CHLORHEXIDINE GLUCONATE 2 % 1 PACK (2 CLOTHS) TOP SCH (03:52)
[2016-11-16] MEDS: DILTIAZEM HCL 90 MG TAB PO SCH ×3 (05:26→17:25)
[2016-11-16] MEDS: cloNIDine HCL 0.3 MG TAB PO SCH ×3 (05:26→22:03)
[2016-11-16 06:18] LABS: HEMATOCRIT 41.6 % (39.0-51.0); MEAN CELL VOLUME 95.4 FL (80.0-100.0); MEAN CORPUSCULAR HEMOGLOBIN 30.3 PG (27.0-34.0); MEAN CORPUSCULAR HGB CONC 31.8 % (32.0-36.0); PLATELET COUNT 139 TH/MM3 (150-450); RED BLOOD COUNT 4.35 MIL/MM3 (4.50-5.90); RED CELL DISTRIBUTION WIDTH 14.3 % (11.6-17.2); REVIEW FLAG FINAL; WHITE BLOOD COUNT 11.7 TH/MM3 (4.0-11.0)
[2016-11-16] MEDS: ISOSORBIDE DINITRATE 10 MG TAB PO SCH ×3 (06:25→22:03)
[2016-11-16 06:27] LABS: APTT (PATIENT) 49.5 SEC (24.3-30.1)
[2016-11-16 06:36] LABS: BICARBONATE 27.9 MEQ/L (21.0-32.0); MAGNESIUM 2.1 MG/DL (1.5-2.5); POTASSIUM 4.7 MEQ/L (3.5-5.1)
[2016-11-16] MEDS: RESP: BUDESONIDE 0.5 MG/2 ML NEB NEB SCH ×2 (08:00→20:49)
[2016-11-16] MEDS: FAMOTIDINE 20 MG/2 ML VIAL IV PUSH SCH (08:19)
[2016-11-16] MEDS: methylPREDNISolone SOD SUCC 40 MG/1 ML VIAL IV SCH (08:19)
[2016-11-16] MEDS: SODIUM CHLORIDE 0.9% FLUSH 10 ML FLUSH IVF SCH (08:20)
[2016-11-16] MEDS: SODIUM CHLORIDE 0.9% FLUSH 10 ML FLUSH IV FLUSH SCH (08:20)
[2016-11-16] MEDS: SODIUM CHLORIDE 0.9% FLUSH 10 ML FLUSH SCH ×2 (08:20→20:35)
[2016-11-16] MEDS: CHLORHEXIDINE 0.12% (ORAL KIT) 15 ML CUP MT SCH ×2 (08:20→20:34)
[2016-11-16] MEDS: ARTIFICIAL TEARS OPTH OINT 3.5 APPLIC/3.5 GM TUBO EACH EYE SCH ×2 (08:21→20:35)
[2016-11-16] MEDS: AMIODARONE INJ 450 MG in DEXTROSE 5% IN WATE(EXCEL) INJ 241 ML IV SCH ×4 (12:02→19:36)
--- NOTE | 2016-11-16 12:16 | HHI.CCPN ---
Subjective Remarks/Hospital Course 56-year-old very pleasant gentleman with past medical history of COPD, and hypertension presents complaining of shortness of breath and nausea, generalized fatigue and chills for 2 days. He thinks it has been from being out in the heat. Denies any fever, chest pain, vomiting, abdominal pain, focal weakness or numbness. In the emergency department his saturation was in mid 80s on arrival with auditory wheezing and tachypnea. He was placed on 4 liters of NC and saturating in the low 90. He does not use oxygen at home. He also mentioned 2 days ago, he came home and was sitting in a chair and was taking his shoes off when he passed out. States he woke up and was still on the chair. This has never happen before. 10/25: Patient intubated secondary to increasing oxygen requirements, altered mental status. Discussed with son. Somewhat hypertensive post intubation. 10/26: Placed on rotaprone bed last evening. Flolan initiated. Saturations improved. Afebrile. Remains on Nimbex drip. 10/27: T max 99.7. Tolerated on not prone position 2 hours yesterday. Tolerating trickle feeds. FiO2 down to 55% 10/28: Tmax 99.9. When unprone for chest x-ray this a.m. desaturated. Currently on 90% FiO2. Actually hypertensive. No bowel movements. Remains paralyzed 10/29: Remains intubated sedated on continuous Prone therapy Except for chest x- ray. Fever 100.8. Panculture requested. Zyvox added. Continue IV sedation with propofol and fentanyl and Versed, neuromuscular paralysis with Nimbex 10/30: Prone cycle changed to 8 hr prone, 1 hr supine from 10/29. Due to hypoxia will continue with same cycle today. Chest x-ray remains unchanged. Patient remains severely hypoxemic FiO2 at 75% PEEP at 16. WBC count worsened to 18. Remains neuromuscularly paralyzed. 10/31: Patient remains critically ill but stable. Oxygen saturation 95% on 55 of FiO2 and PEEP of 16. Reduce PEEP to 14, FiO2 to 50% and start weaning Flolan. Increase supine time to 4 hours, reduce Prone time to 6 hours 11/01: Patient remains intubated sedated critically ill on neuromuscular paralysis. FiO2 reduced to 50, I will attempt PEEP wean gradually to 12 today. Prone/supine cycles will be changed to 6 hours each 11/02: FiO2 remains at 50%, PEEP reduced from 14 to 12 today, TV increased to 600 and RR to 20, in anticipation of discontinuing prone therapy, which will be DCd today. Off Flolan for 2 days 11/03: off pronation. fio2 up to 65% , peep 12. agitation causing desaturation. minimal improvements. 11/04: good diuresis yesterday, but despite that, fio2 persists at 65% and spo2 decreasing to 91% today. no real improvements and some worsening of pulmonary function despite ongoing aggressive therapies. still not safe for SBT given hypoxia. also severely hypertensive this morning. 11/05: continues to diurese well and Cr still at baseline. fio2 at 90% however, and no clinical improvements in mental status or hypoxia. still unsafe for SBT given hypoxemia. off pathway. hypertension under much better control. poor neuro status is concerning. 11/06: Remains severely hypoxemic. FiO2 was 100% PEEP 14. I reduce FiO2 to 90% after increasing PEEP to 16. Developed a flutter with RVR overnight, currently on Cardizem drip. Unable to do SBT due to very high settings 11/07: Remains hypoxemic and but able to wean FiO2 down to 80% with PEEP of 16. Remains unresponsive on sedation. Unable to trach due to his high vent settings and high FiO2. Remains on Cardizem and 15 mg per hour, with rate controlled a flutter. We'll start by mouth Cardizem in an attempt to wean IV Cardizem 11/08: Remains critically ill hypoxic but FiO2 now weaned to 60%, PEEP remains at 16. Very heavily sedated no withdrawal to pain. Will hold all continuos sedation. Sputum culture with Klebsiella sensitive to Rocephin. A flutter persistent, will start IV heparin 11/09 Patient is sedated with Diprivan and intubated, On Cardizem drip 15mg/hr for Aflutter. Heparin drip stated yesterday. 11/10 Patient remains sedated and intubated. On Heparin drip. Persistent fever with Tmax 102.5. ETT was replaced yesterday. 11/11 Patient was placed on Cardizem and amio drips overnight for Afib with RVR. Sedated with Diprivan and intubated. On Heparin drip. T;99.3 this morning. 11/12 Patient remains intubated and sedated with Diprivan. On Cardizem drip 15mg/ hr. Afebrile, Tmax 100.6 11/13 Patient is sedate with Diprivan and intubated. In Afib with RVR now on Amio drip. Tmax 100,4 11/14 Remains intubated sedated with propofol and fentanyl. Afib rate controlled , remains on amiodarone and Cardizem gtt. Fio2 remains high at 70%, PEEP 12. CXR persistent bibasilar infiltrates/effusion 11/15: Currently sedated with propofol and fentanyl drips. Currently in A. fib/ flutter on amiodarone drip and Cardizem drip. PEEP increased to 14. FiO2 65. Subjective 11/16: Tmax 100.1. Patient more alert and tachycardic this AM. Adding midazolam gtt for sedation tolerating tube feeding. Positive BM. PEEP to 12. FiO2 75% Objective Vital Signs Date Time Temp Pulse Resp B/P (MAP) Pulse Ox O2 Delivery O2 Flow Rate FiO2 11/16/16 12:02 137 191/92 11/16/16 11:23 93 75 11/16/16 04:00 98.8 18 11/14/16 03:47 Ventilator Intake and Output 11/16/16 11/16/16 11/17/16 08:00 16:00 00:00 Intake Total 1708 ml 137 ml Output Total 850 ml Balance 858 ml 137 ml Result Diagram: 11/16/16 0543 11/16/16 0540 Other Results Microbiology Date/Time Source Procedure Growth Status 11/10/16 11:40 Blood Peripheral Aerobic Blood Culture - Final NO GROWTH IN 5 DAYS Complete 11/10/16 11:40 Blood Peripheral Anaerobic Blood Culture - Final NO GROWTH IN 5 DAYS Complete 11/08/16 14:15 Stool Stool Stool Occult Blood (TYLER) - Final HEMOCCULT NEGATIVE Complete 11/10/16 05:45 Sputum Endotracheal Gram Stain - Final Complete 11/10/16 05:45 Sputum Culture - Final Klebsiella Pneumoniae Complete 11/11/16 01:15 Urine Catheterized Urine Urine Culture - Final Ana Albicans Complete Imaging Last Impressions Chest X-Ray 11/15/16 0600 Signed Impressions: Service Date/Time: , November 15, 2016 04:20 - CONCLUSION: Unchanged bilateral pleural effusions and bibasilar infiltrates. Fito Mar Jr., MD Lower Extremity Ultrasound 11/09/16 Signed Impressions: Service Date/Time: Wednesday, November 09, 2016 14:13 - CONCLUSION: Normal examination. Jayson Manning MD Liver Ultrasound 11/09/16 0000 Signed Impressions: Service Date/Time: Wednesday, November 09, 2016 13:58 - CONCLUSION: Sono dense liver without duct dilatation. 4 mm common duct. Ward Kim MD FACR Chest CT 11/06/16 Signed Impressions: Service Date/Time: Sunday, November 06, 2016 11:24 - CONCLUSION: 1. Dense bilateral posterior lower lobe airspace consolidation consistent with aspiration versus less likely pneumonia. 2. Linear consolidation in the right middle lobe consistent with atelectasis versus aspiration. 3. Trace left and small right pleural effusions. 4. Support lines and tubes in good position. 5. Prominent coronary artery calcifications. Nico Vaughan MD Head CT 11/05/16 0000 Signed Impressions: Service Date/Time: Saturday, November 05, 2016 21:43 - CONCLUSION: 1. No acute intracranial abnormalities. Pansinus fluid opacification. Cristofer De Santiago MD Abdomen X-Ray 10/29/16 0600 Signed Impressions: Service Date/Time: Saturday, October 29, 2016 04:41 - CONCLUSION: Nonspecific , nonobstructive bowel gas pattern. No evidence of free air. Jayson Taylor MD Carotid Artery Ultrasound 10/25/16 0000 Signed Impressions: Service Date/Time: September 08:27 - CONCLUSION: Mild to moderate plaque in both carotid systems with less than 40%% diameter stenosis by velocity criteria. Jhonathan Dietz MD CT Angiography 10/25/16 0000 Signed Impressions: Service Date/Time: September 06:12 - CONCLUSION: 1. Negative for pulmonary embolism. 2. There is a fairly large area of masslike consolidation in the medial right lung involving posterior segment right upper lobe and medial aspect of right lower lobe. There is associated right hilar and mediastinal adenopathy measuring up to 2.1 cm. Differential diagnosis includes pneumonia or underlying lung neoplasm. Close followup imaging recommended after treatment for pneumonia, to assess for underlying mass. Cristofer De Santiago MD Objective Remarks GENERAL: 56-year-old male, critically ill currently orotracheally intubated SKIN: Warm and dry. Positive intertrigo HEAD: Atraumatic. Normocephalic. EYES: Pupils equal and round about 3 mm bilaterally and reactive. No scleral icterus. No injection or drainage. ENT: No nasal bleeding or discharge. Mucous membranes pink and moist. NECK: Trachea midline. No JVD. CARDIOVASCULAR: Tachycardia, IR. S1, S2 no S4. Diminished heart sounds. Without murmur, clicks, or rubs RESPIRATORY: To Ms. Wojciech sounds throughout. Few cocci appreciated in bases bilaterally. Diminished. GASTROINTESTINAL: Abdomen soft, obese. Hypoactive bowel sounds appreciated MUSCULOSKELETAL: Extremities with trace lower extremity bilateral edema. No obvious deformities. NEUROLOGICAL: Positive gag. Positive corneal reflex. 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 Haloperidol 5mg iv q4h prn for agitation. Brain CT on admission revealed no acute intracranial findings, CT brain 11/05- no acute findings. opacification of sinuses. Carotid ultrasound less than 50% stenosis bilaterally EEG 11/09: severe encephalopathy PT/OT for range of motion CV: Atrial fib/ flutter with RVR Hypertension- On Cardizem drip at 15 mg an hour, and amiodarone drip at 0.5 mg/mL Start esmolol drip and add digoxin in attempt to wean off drip PO Cardizem 90 mg PO q6hr, Lopressor 50mg Q6, Clonidine 0.3mg Q8 and Isordil 10 mg 3 times a day for hypertension IV heparin for anticoagulation Echo 10/25 EF 60-65% Resp: Acute hypoxemic Respiratory failure - severe and persistent. Severe ARDS COPD exacerbation Pneumonia most likely community-acquired Obesity hypoventilation syndrome Tobacco use disorder CT pulmonary angio revealed no pulmonary embolus. Masslike consolidation in the posterior right upper lobe and medial right lower lobe. Lymphadenopathy to 1 cm right hilum and subcarinal. Atelectasis left lower lobe. PRVC 16, TV 700, IT:1.0, PEEP:12, FIO2 75% to keep Saturation >88%. Will Need trach once PEEP <10, FiO2<50%. Intubated 10/25 CXR 11/14- Bibasilar infiltrates/effusion ( unchanged) Discontinued Prone therapy 11/02/16. Ventilator bundle, Albuterol/ipratropium every 4 hours with albuterol every 2 hours when necessary dyspnea Budesonide 0.5 mg aerosols twice a day. Solu-Medrol 40 mg IV daily Pulmonary/Dr. Wynne following GI: Morbid Obesity Elevated LFT's Monitor LFT, US liver: No ductal dilatation Continue tube feeds-Vital high protein 1.5@40ml/hr Famotidine 20 milligrams IV twice a day for GI prophylaxis : Monitor renal function, I/O's, electrolytes replacement per protocol. Endo: Hyperglycemia- poorly controlled. SSI to q4h, high dose. Insulin detemir 45U q12- . Heme: Leukocytosis Monitor CBC, coags- patient is on heparin drip. ID: Severe sepsis Pneumonia s/p ceftriaxone 11/02-11/09 for Enterobacter pneumonia. Repeat sputum Klebsiella sensitive to Rocephin 10/29/16-Enterobacter in sputum, 11/06/16, 11/10 sputum- Klebsiella Urine Legionella and pneumococcal antigens negative and influenza negative Follow up on BC from 11/08, Santiago replaced 11/09. C-diff PCR is negative Continue abx per ID (ceftriaxone, Diflucan). ID is following-Dr. Patel Access RUE PICC placed 11/05 and removed yesterday. Replace today Prophylaxis - GI, famotidine - DVT - IV heparin 11/09 Doppler US LE negative for DVT Critical Care: The total critical care time was 35 minutes. Time to perform other separately billable procedures was not included in the critical care time. Ubaldo Story MD Nov 16, 2016 12:15
[2016-11-16] MEDS ORDERED: DIGOXIN 0.5 MG/2 ML VIAL IV PUSH ONE ×2 (12:30→18:30)
[2016-11-16] MEDS: ESMOLOL DRIP INJ PREMIX 250 ML IV PRN ×2 (14:29→20:05)
[2016-11-16] MEDS: MIDAZOLAM 100 MG/100 ML INJ 100 ML IV PRN (14:30)
[2016-11-16] MEDS ORDERED: SODIUM CHLORIDE 0.9% FLUSH 10 ML FLUSH IV FLUSH PRN (14:30)
--- NOTE | 2016-11-16 14:48 | RADRPT ---
EXAM DATE/TIME: 11/16/2016 14:13 [facility] COMPARISON: CHEST SINGLE AP, November 15, 2016, 4:20. INDICATIONS : Post PICC line placement. MEDICAL HISTORY : Hypertension. Chronic obstructive pulmonary disease. Hypercholesterolemia.Kidney stones. Anticoagulan t therapy. SURGICAL HISTORY : None. ENCOUNTER: Subsequent ACUITY: 3 weeks PAIN SCORE: 0/10 LOCATION: chest FINDINGS: The ET tube and nasogastric remain in place with bibasilar pulmonary densities representing pulmonary consolidation and/or effusion. Placement of right PICC line turns out into the soft tissues of the n kristofer. CONCLUSION: Right PICC line placed which turns up and terminates in the soft tissues of the neck on the right. Fan Patel MD on November 16, 2016 at 14:45 Board Certified Radiologist. This report was verified electronically.
--- NOTE | 2016-11-16 17:20 | RADRPT ---
EXAM DATE/TIME: 11/16/2016 16:14 [facility] COMPARISON: CHEST SINGLE AP, November 16, 2016, 14:13. INDICATIONS : Post Picc line placement. MEDICAL HISTORY : Chronic obstructive pulmonary disease. Hypertension Hypercholesterolemia.Kidney stones. Anticoag ulant therapy. SURGICAL HISTORY : None. ENCOUNTER: Subsequent ACUITY: 1 day PAIN SCORE: Non-responsive. LOCATION: Bilateral chest FINDINGS: A single view of the chest demonstrates stable position of the right upper extremity PICC line with t he tip extending cephalad through the internal jugular vein. Bibasilar areas of consolidation/effusio n.. Heart size is borderline prominent. Endotracheal and nasogastric tubes are appear to be appropria tely positioned. Osseous structures are intact. CONCLUSION: 1. Right upper extremity PICC line with the tip again identified in the ipsilateral internal jugular vein. 2. Stable bibasilar areas of consolidation/effusion. Jorge Jolly MD on November 16, 2016 at 17:16 Board Certified Radiologist. This report was verified electronically.
[2016-11-16] MEDS: cefTRIAXone INJ 2,000 MG in SODIUM CHLORIDE 0.9% INJ 100 ML IV SCH (17:28)
--- NOTE | 2016-11-16 18:57 | RADRPT ---
EXAM DATE/TIME: 11/16/2016 18:32 [facility] COMPARISON: CHEST SINGLE AP, November 16, 2016, 16:14. INDICATIONS : PICC line placement MEDICAL HISTORY : Chronic obstructive pulmonary disease. Hypertension Hypercholesterolemia. Kidney stones. Anticoagulan t therapy SURGICAL HISTORY : None. ENCOUNTER: Initial ACUITY: 1 day PAIN SCORE: Non-responsive. LOCATION: Bilateral chest FINDINGS: The endotracheal tube has its tip 3 cm above the filiberto. A nasogastric tube has its tip below diaphr agm. A left-sided PICC line has its tip has its tip at the junction of the right atrium and superior vena cava. Mild pulmonary vascular congestion is noted bilaterally. Heart is mildly prominent. De generative changes and scoliosis of the thoracic spine are noted. CONCLUSION: 1. Left-sided PICC line in good position at the junction of the superior vena cava and right atrium. 2. Mild pulmonary vascular congestion. 3. Mild cardiomegaly. 4. Endotracheal tube and nasogastric tube remain in good positions. 5. Degenerative changes and scoliosis of the thoracic spine. Peter Philip MD on November 16, 2016 at 18:50 Board Certified Radiologist. This report was verified electronically.
[2016-11-16] MEDS: FLUCONAZOLE 200 MG PREMIX BAG 100 ML IV SCH (20:34)
[2016-11-16] MEDS: FAMOTIDINE 20 MG TAB NG SCH (20:35)
[2016-11-17] VITALS (23 sets, daily range): BP systolic 128–179; BP diastolic 67–101; PULSE 69–86; RESP 15–17; TEMP 98–98.9; O2SAT 16–93
[2016-11-17] MEDS: PROPOFOL 1000 MG/100 ML IV PRN ×9 (00:05→19:41)
[2016-11-17] MEDS: ESMOLOL DRIP INJ PREMIX 250 ML IV PRN ×5 (00:06→12:07)
[2016-11-17] MEDS: DILTIAZEM HCL 90 MG TAB PO SCH ×4 (00:06→17:47)
[2016-11-17] MEDS: METOPROLOL TARTRATE 50 MG TAB PO SCH ×4 (00:06→17:47)
[2016-11-17] MEDS: INSULIN NovoLIN REGULAR SUPPLEMENTAL SCALE SQ SCH ×6 (00:16→21:14)
[2016-11-17] MEDS: INSULIN DETEMIR 100 UNITS/ML VIAL SQ SCH ×2 (01:12→13:00)
[2016-11-17] MEDS: AMIODARONE INJ 450 MG in DEXTROSE 5% IN WATE(EXCEL) INJ 241 ML IV SCH ×6 (02:01→13:11)
[2016-11-17] MEDS: RESP: ALBUTEROL 2.5 MG/IPRATROPIUM 0.5 MG NEB (SCH) NEB ×6 (03:47→23:50)
[2016-11-17] MEDS: CHLORHEXIDINE GLUCONATE 2 % 1 PACK (2 CLOTHS) TOP SCH (04:00)
[2016-11-17 05:31] LABS: AUTOMATED NEUTROPHIL # 9.8 TH/MM3 (1.8-7.7); BASOPHIL # 0.1 TH/MM3 (0-0.2); BASOPHIL % 0.5 % (0.0-2.0); EOSINOPHIL % 0.3 % (0.0-4.0); HEMATOCRIT 39.8 % (39.0-51.0); LYMPH % 4.9 % (9.0-44.0); LYMPHOCYTE # 0.5 TH/MM3 (1.0-4.8); MEAN CELL VOLUME 95.9 FL (80.0-100.0); MEAN CORPUSCULAR HEMOGLOBIN 30.8 PG (27.0-34.0); MEAN CORPUSCULAR HGB CONC 32.1 % (32.0-36.0); MONO % 6.1 % (0.0-8.0); NEUT % 88.2 % (16.0-70.0); PLATELET COUNT 131 TH/MM3 (150-450); RED BLOOD COUNT 4.15 MIL/MM3 (4.50-5.90); RED CELL DISTRIBUTION WIDTH 14.1 % (11.6-17.2); WHITE BLOOD COUNT 11.1 TH/MM3 (4.0-11.0)
[2016-11-17] MEDS: cloNIDine HCL 0.3 MG TAB PO SCH ×3 (05:33→21:08)
[2016-11-17] MEDS: ISOSORBIDE DINITRATE 10 MG TAB PO SCH ×3 (05:33→21:08)
[2016-11-17 05:39] LABS: HEMO FLAGS AUTO DIFF
[2016-11-17 05:50] LABS: BICARBONATE 30.4 MEQ/L (21.0-32.0); MAGNESIUM 2.1 MG/DL (1.5-2.5); POTASSIUM 4.6 MEQ/L (3.5-5.1)
[2016-11-17] MEDS: HEPARIN-D5W 25,000 U/250 ML 250 ML IV PRN ×2 (06:00→21:14)
[2016-11-17 06:11] LABS: DIGOXIN 0.7 NG/ML (0.8-2.0)
--- NOTE | 2016-11-17 06:39 | RADRPT ---
EXAM DATE/TIME: 11/17/2016 04:28 [facility] COMPARISON: CHEST SINGLE AP, November 16, 2016, 18:32. INDICATIONS : Shortness of breath, possible pulmonary disease. MEDICAL HISTORY : Chronic obstructive pulmonary disease. Hypertension Hypercholesterolemia. Renal stones SURGICAL HISTORY : None. ENCOUNTER: Subsequent ACUITY: 3 weeks PAIN SCORE: Non-responsive. LOCATION: Bilateral chest FINDINGS: ET tube above the filiberto. Left subclavian catheter tip projects over the mid superior vena cava. Ga stric tube traverses the [id number]. Persistent bilateral lower lung consolidative infiltrates an d pleural effusions, stable in severity. CONCLUSION: Persistent bilateral lower lung consolidative infiltrates. Fito Joshua MD on November 17, 2016 at 6:37 Board Certified Radiologist. This report was verified electronically.
[2016-11-17] MEDS: CHLORHEXIDINE 0.12% (ORAL KIT) 15 ML CUP MT SCH ×2 (08:00→21:07)
[2016-11-17] MEDS: MIDAZOLAM 100 MG/100 ML INJ 100 ML IV PRN (08:35)
[2016-11-17] MEDS: methylPREDNISolone SOD SUCC 40 MG/1 ML VIAL IV SCH (08:35)
[2016-11-17] MEDS: FAMOTIDINE 20 MG TAB NG SCH ×2 (08:35→21:08)
[2016-11-17] MEDS: SODIUM CHLORIDE 0.9% FLUSH 10 ML FLUSH SCH ×2 (08:36→21:08)
[2016-11-17] MEDS: fentaNYL DRIP 250 ML IV PRN (08:36)
[2016-11-17] MEDS: SODIUM CHLORIDE 0.9% FLUSH 10 ML FLUSH IVF SCH (08:41)
[2016-11-17] MEDS: SODIUM CHLORIDE 0.9% FLUSH 10 ML FLUSH IV FLUSH SCH (08:41)
[2016-11-17] MEDS: ARTIFICIAL TEARS OPTH OINT 3.5 APPLIC/3.5 GM TUBO EACH EYE SCH ×2 (08:41→21:00)
[2016-11-17] MEDS: RESP: BUDESONIDE 0.5 MG/2 ML NEB NEB SCH ×2 (09:19→20:33)
[2016-11-17 11:13] LABS: BANDS 17 % (0-6); METAMYELOCYTES 4 % (0-1); NEUTROPHIL # MANUAL DIFF 10.2 TH/MM3 (1.8-7.7); POLYS (SEG NEUTROPHILS) 71 % (16-70); WBC DIFF SAMPLE 100
[2016-11-17 11:14] LABS: PLATELET ESTIMATE SMEAR LOW (NORMAL); PLATELET MORPHOLOGY NORMAL (NORMAL); SCAN/DIFF FINAL DIFF MANUAL
--- NOTE | 2016-11-17 13:28 | HHI.CCPN ---
Subjective Remarks/Hospital Course 56-year-old very pleasant gentleman with past medical history of COPD, and hypertension presents complaining of shortness of breath and nausea, generalized fatigue and chills for 2 days. He thinks it has been from being out in the heat. Denies any fever, chest pain, vomiting, abdominal pain, focal weakness or numbness. In the emergency department his saturation was in mid 80s on arrival with auditory wheezing and tachypnea. He was placed on 4 liters of NC and saturating in the low 90. He does not use oxygen at home. He also mentioned 2 days ago, he came home and was sitting in a chair and was taking his shoes off when he passed out. States he woke up and was still on the chair. This has never happen before. 10/25: Patient intubated secondary to increasing oxygen requirements, altered mental status. Discussed with son. Somewhat hypertensive post intubation. 10/26: Placed on rotaprone bed last evening. Flolan initiated. Saturations improved. Afebrile. Remains on Nimbex drip. 10/27: T max 99.7. Tolerated on not prone position 2 hours yesterday. Tolerating trickle feeds. FiO2 down to 55% 10/28: Tmax 99.9. When unprone for chest x-ray this a.m. desaturated. Currently on 90% FiO2. Actually hypertensive. No bowel movements. Remains paralyzed 10/29: Remains intubated sedated on continuous Prone therapy Except for chest x- ray. Fever 100.8. Panculture requested. Zyvox added. Continue IV sedation with propofol and fentanyl and Versed, neuromuscular paralysis with Nimbex 10/30: Prone cycle changed to 8 hr prone, 1 hr supine from 10/29. Due to hypoxia will continue with same cycle today. Chest x-ray remains unchanged. Patient remains severely hypoxemic FiO2 at 75% PEEP at 16. WBC count worsened to 18. Remains neuromuscularly paralyzed. 10/31: Patient remains critically ill but stable. Oxygen saturation 95% on 55 of FiO2 and PEEP of 16. Reduce PEEP to 14, FiO2 to 50% and start weaning Flolan. Increase supine time to 4 hours, reduce Prone time to 6 hours 11/01: Patient remains intubated sedated critically ill on neuromuscular paralysis. FiO2 reduced to 50, I will attempt PEEP wean gradually to 12 today. Prone/supine cycles will be changed to 6 hours each 11/02: FiO2 remains at 50%, PEEP reduced from 14 to 12 today, TV increased to 600 and RR to 20, in anticipation of discontinuing prone therapy, which will be DCd today. Off Flolan for 2 days 11/03: off pronation. fio2 up to 65% , peep 12. agitation causing desaturation. minimal improvements. 11/04: good diuresis yesterday, but despite that, fio2 persists at 65% and spo2 decreasing to 91% today. no real improvements and some worsening of pulmonary function despite ongoing aggressive therapies. still not safe for SBT given hypoxia. also severely hypertensive this morning. 11/05: continues to diurese well and Cr still at baseline. fio2 at 90% however, and no clinical improvements in mental status or hypoxia. still unsafe for SBT given hypoxemia. off pathway. hypertension under much better control. poor neuro status is concerning. 11/06: Remains severely hypoxemic. FiO2 was 100% PEEP 14. I reduce FiO2 to 90% after increasing PEEP to 16. Developed a flutter with RVR overnight, currently on Cardizem drip. Unable to do SBT due to very high settings 11/07: Remains hypoxemic and but able to wean FiO2 down to 80% with PEEP of 16. Remains unresponsive on sedation. Unable to trach due to his high vent settings and high FiO2. Remains on Cardizem and 15 mg per hour, with rate controlled a flutter. We'll start by mouth Cardizem in an attempt to wean IV Cardizem 11/08: Remains critically ill hypoxic but FiO2 now weaned to 60%, PEEP remains at 16. Very heavily sedated no withdrawal to pain. Will hold all continuos sedation. Sputum culture with Klebsiella sensitive to Rocephin. A flutter persistent, will start IV heparin 11/09 Patient is sedated with Diprivan and intubated, On Cardizem drip 15mg/hr for Aflutter. Heparin drip stated yesterday. 11/10 Patient remains sedated and intubated. On Heparin drip. Persistent fever with Tmax 102.5. ETT was replaced yesterday. 11/11 Patient was placed on Cardizem and amio drips overnight for Afib with RVR. Sedated with Diprivan and intubated. On Heparin drip. T;99.3 this morning. 11/12 Patient remains intubated and sedated with Diprivan. On Cardizem drip 15mg/ hr. Afebrile, Tmax 100.6 11/13 Patient is sedate with Diprivan and intubated. In Afib with RVR now on Amio drip. Tmax 100,4 11/14 Remains intubated sedated with propofol and fentanyl. Afib rate controlled , remains on amiodarone and Cardizem gtt. Fio2 remains high at 70%, PEEP 12. CXR persistent bibasilar infiltrates/effusion 11/15: Currently sedated with propofol and fentanyl drips. Currently in A. fib/ flutter on amiodarone drip and Cardizem drip. PEEP increased to 14. FiO2 65. 11/16: Tmax 100.1. Patient more alert and tachycardic this AM. Adding midazolam gtt for sedation and currently tolerating tube feeding. Positive BM. PEEP to 12. FiO2 75% Subjective 11/17: Afebrile. FiO2 down to 60%. PEEP set 12. Multiple tracheostomy hopefully on Saturday. Heart rate better control. Objective Vital Signs Date Time Temp Pulse Resp B/P (MAP) Pulse Ox O2 Delivery O2 Flow Rate FiO2 11/17/16 13:11 71 130/68 11/17/16 13:00 16 91 11/17/16 12:00 70 11/17/16 12:00 98.2 11/14/16 03:47 Ventilator Intake and Output 11/17/16 11/17/16 11/18/16 08:00 16:00 00:00 Intake Total 1082 ml 1094 ml Output Total 1350 ml Balance -268 ml 1094 ml Result Diagram: 11/17/16 0415 11/17/16 0415 Other Results Microbiology Date/Time Source Procedure Growth Status 11/10/16 11:40 Blood Peripheral Aerobic Blood Culture - Final NO GROWTH IN 5 DAYS Complete 11/10/16 11:40 Blood Peripheral Anaerobic Blood Culture - Final NO GROWTH IN 5 DAYS Complete 11/08/16 14:15 Stool Stool Stool Occult Blood (TYLER) - Final HEMOCCULT NEGATIVE Complete 11/10/16 05:45 Sputum Endotracheal Gram Stain - Final Complete 11/10/16 05:45 Sputum Culture - Final Klebsiella Pneumoniae Complete 11/11/16 01:15 Urine Catheterized Urine Urine Culture - Final Ana Albicans Complete Imaging Last Impressions Chest X-Ray 11/17/16 0600 Signed Impressions: Service Date/Time: Thursday, November 17, 2016 04:28 - CONCLUSION: Persistent bilateral lower lung consolidative infiltrates. Fito Joshua MD Lower Extremity Ultrasound 11/09/16 Signed Impressions: Service Date/Time: Wednesday, November 09, 2016 14:13 - CONCLUSION: Normal examination. Jayson Manning MD Liver Ultrasound 11/09/16 Signed Impressions: Service Date/Time: Wednesday, November 09, 2016 13:58 - CONCLUSION: Sono dense liver without duct dilatation. 4 mm common duct. Ward Kim MD FACR Chest CT 11/06/16 Signed Impressions: Service Date/Time: Sunday, November 06, 2016 11:24 - CONCLUSION: 1. Dense bilateral posterior lower lobe airspace consolidation consistent with aspiration versus less likely pneumonia. 2. Linear consolidation in the right middle lobe consistent with atelectasis versus aspiration. 3. Trace left and small right pleural effusions. 4. Support lines and tubes in good position. 5. Prominent coronary artery calcifications. Nico Vaughan MD Head CT 11/05/16 0000 Signed Impressions: Service Date/Time: Saturday, November 05, 2016 21:43 - CONCLUSION: 1. No acute intracranial abnormalities. Pansinus fluid opacification. Cristofer De Santiago MD Abdomen X-Ray 10/29/16 0600 Signed Impressions: Service Date/Time: Saturday, October 29, 2016 04:41 - CONCLUSION: Nonspecific , nonobstructive bowel gas pattern. No evidence of free air. Jayson Taylor MD Carotid Artery Ultrasound 10/25/16 Signed Impressions: Service Date/Time: September 08:27 - CONCLUSION: Mild to moderate plaque in both carotid systems with less than 40%% diameter stenosis by velocity criteria. Jhonathan Dietz MD CT Angiography 10/25/16 Signed Impressions: Service Date/Time: September 06:12 - CONCLUSION: 1. Negative for pulmonary embolism. 2. There is a fairly large area of masslike consolidation in the medial right lung involving posterior segment right upper lobe and medial aspect of right lower lobe. There is associated right hilar and mediastinal adenopathy measuring up to 2.1 cm. Differential diagnosis includes pneumonia or underlying lung neoplasm. Close followup imaging recommended after treatment for pneumonia, to assess for underlying mass. Cristofer De Santiago MD Objective Remarks GENERAL: 56-year-old male, critically ill currently orotracheally intubated SKIN: Warm and dry. Positive intertrigo HEAD: Atraumatic. Normocephalic. EYES: Pupils equal and round about 3 mm bilaterally and reactive. No scleral icterus. No injection or drainage. ENT: No nasal bleeding or discharge. Mucous membranes pink and moist. NECK: Trachea midline. No JVD. CARDIOVASCULAR: Tachycardia, IR. S1, S2 no S4. Diminished heart sounds. Without murmur, clicks, or rubs RESPIRATORY: To Ms. Wojciech sounds throughout. Few cocci appreciated in bases bilaterally. Diminished. GASTROINTESTINAL: Abdomen soft, obese. Hypoactive bowel sounds appreciated MUSCULOSKELETAL: Extremities with trace lower extremity bilateral edema. No obvious deformities. NEUROLOGICAL: Positive gag. Positive corneal reflex. 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 Haloperidol 5mg iv q4h prn for agitation. Brain CT on admission revealed no acute intracranial findings, CT brain 11/05- no acute findings. opacification of sinuses. Carotid ultrasound less than 50% stenosis bilaterally EEG 11/09: severe encephalopathy PT/OT for range of motion CV: Atrial fib/ flutter with RVR Hypertension- On Cardizem drip at 15 mg an hour, and amiodarone drip at 0.5 mg/mL Start esmolol drip and add digoxin in attempt to wean off drip PO Cardizem 90 mg PO q6hr, Lopressor 50mg Q6, Clonidine 0.3mg Q8 and Isordil 10 mg 3 times a day for hypertension IV heparin for anticoagulation Echo 10/25 EF 60-65% Resp: Acute hypoxemic Respiratory failure - severe and persistent. Severe ARDS COPD exacerbation Pneumonia most likely community-acquired Obesity hypoventilation syndrome Tobacco use disorder CT pulmonary angio revealed no pulmonary embolus. Masslike consolidation in the posterior right upper lobe and medial right lower lobe. Lymphadenopathy to 1 cm right hilum and subcarinal. Atelectasis left lower lobe. PRVC 16, TV 700, IT:1.0, PEEP:12, FIO2 75% to keep Saturation >88%. Will Need trach once PEEP <10, FiO2<50%. Intubated 10/25 CXR 11/14- Bibasilar infiltrates/effusion ( unchanged) Discontinued Prone therapy 11/02/16. Ventilator bundle, Albuterol/ipratropium every 4 hours with albuterol every 2 hours when necessary dyspnea Budesonide 0.5 mg aerosols twice a day. Solu-Medrol 40 mg IV daily Pulmonary/Dr. Wynne following GI: Morbid Obesity Elevated LFT's Monitor LFT, US liver: No ductal dilatation Continue tube feeds-Vital high protein 1.5@40ml/hr Famotidine 20 milligrams IV twice a day for GI prophylaxis : Monitor renal function, I/O's, electrolytes replacement per protocol. Endo: Hyperglycemia- poorly controlled. SSI to q4h, high dose. Insulin detemir 45U q12- . Heme: Leukocytosis Monitor CBC, coags- patient is on heparin drip. ID: Severe sepsis Pneumonia s/p ceftriaxone 11/02-11/09 for Enterobacter pneumonia. Repeat sputum Klebsiella sensitive to Rocephin 10/29/16-Enterobacter in sputum, 11/06/16, 11/10 sputum- Klebsiella Urine Legionella and pneumococcal antigens negative and influenza negative Follow up on BC from 11/08, Santiago replaced 11/09. C-diff PCR is negative Continue abx per ID (ceftriaxone, Diflucan). ID is following-Dr. Patel Access RUE PICC placed 11/05 and removed yesterday. Replace today Prophylaxis - GI, famotidine - DVT - IV heparin 11/09 Doppler US LE negative for DVT Critical Care: The total critical care time was 35 minutes. Time to perform other separately billable procedures was not included in the critical care time. Ubaldo Story MD Nov 17, 2016 13:28
[2016-11-17] MEDS ORDERED: BUMETANIDE INJ 1 MG/4 ML VIAL IV PUSH ONE (13:30)
--- NOTE | 2016-11-17 15:33 | HHI.PR ---
Addendum to Inpatient Note Additional Information pt seen around 1500 full note to follow remains on vent PEEP 12, FiO2 60% heavily sedated + liquid stool afebrile Mariana Sofia RN, MD Nov 17, 2016 15:33
[2016-11-17 16:47] LABS: APTT (PATIENT) 43.1 SEC (24.3-30.1)
[2016-11-17] MEDS: cefTRIAXone INJ 2,000 MG in SODIUM CHLORIDE 0.9% INJ 100 ML IV SCH (17:47)
[2016-11-17] MEDS: FLUCONAZOLE 200 MG PREMIX BAG 100 ML IV SCH (21:08)
--- NOTE | 2016-11-17 21:57 | HHI.IDPN ---
Subjective Subjective Remarks Delaeyd entry pt seen around 1500 Essentially no change, remains on vent PEEP 12, FiO2 60% heavily sedated + liquid stool afebrile Antibiotics CFTX fluconazole Allergies: Coded Allergies: No Known Allergies (Unverified , 10/25/16) Objective . Vital Signs Date Time Temp Pulse Resp B/P (MAP) Pulse Ox O2 Delivery O2 Flow Rate FiO2 11/17/16 20:28 90 60 11/17/16 18:08 73 127/72 11/17/16 18:05 73 11/17/16 16:00 71 11/17/16 16:00 72 11/17/16 16:00 70 11/17/16 16:00 98.9 72 16 158/80 (106) 90 11/17/16 15:51 90 60 11/17/16 15:00 72 16 143/74 (97) 90 11/17/16 14:00 71 15 136/81 (99) 92 11/17/16 14:00 71 11/17/16 13:11 71 130/68 11/17/16 13:00 71 16 130/68 (88) 91 11/17/16 12:07 71 139/67 11/17/16 12:00 71 11/17/16 12:00 70 11/17/16 12:00 98.2 71 17 139/67 (91) 91 11/17/16 11:00 71 16 141/73 (95) 92 11/17/16 10:00 71 11/17/16 10:00 71 16 136/72 (93) 92 11/17/16 09:46 78 11/17/16 09:20 16 65 11/17/16 09:05 71 179/70 11/17/16 09:00 71 16 179/70 (106) 93 11/17/16 08:00 70 11/17/16 08:00 98.0 71 16 148/72 (97) 92 11/17/16 07:00 71 16 144/69 (94) 92 11/17/16 06:00 71 11/17/16 05:56 71 147/84 11/17/16 04:00 70 17 154/77 (102) 91 11/17/16 04:00 70 11/17/16 04:00 70 11/17/16 03:48 92 65 11/17/16 03:27 70 170/81 11/17/16 02:01 69 155/78 11/17/16 02:00 69 11/17/16 01:23 91 65 11/17/16 00:06 87 176/101 11/17/16 00:00 70 11/17/16 00:00 86 11/17/16 00:00 86 16 176/101 (126) 93 11/16/16 22:30 94 70 11/16/16 22:00 68 11/17/16 11/17/16 11/18/16 15:00 23:00 07:00 Intake Total 1094 ml 1564 ml Output Total 4125 ml Balance 1094 ml -2561 ml Intake IV Total 1094 ml 1018 ml Tube Feeding 546 ml Output Urine Total 3925 ml Stool Total 200 ml . Laboratory Tests Test 11/16/16 05:43 11/17/16 04:15 White Blood Count 11.7 TH/MM3 11.1 TH/MM3 Red Blood Count 4.35 MIL/MM3 4.15 MIL/MM3 Hemoglobin 13.2 GM/DL 12.8 GM/DL Hematocrit 41.6 % 39.8 % Mean Corpuscular Volume 95.4 FL 95.9 FL Mean Corpuscular Hemoglobin 30.3 PG 30.8 PG Mean Corpuscular Hemoglobin Concent 31.8 % 32.1 % Red Cell Distribution Width 14.3 % 14.1 % Platelet Count 139 TH/MM3 131 TH/MM3 Mean Platelet Volume 10.2 FL 10.1 FL Neutrophils (%) (Auto) 88.2 % Lymphocytes (%) (Auto) 4.9 % Monocytes (%) (Auto) 6.1 % Eosinophils (%) (Auto) 0.3 % Basophils (%) (Auto) 0.5 % Neutrophils # (Auto) 9.8 TH/MM3 Lymphocytes # (Auto) 0.5 TH/MM3 Monocytes # (Auto) 0.7 TH/MM3 Eosinophils # (Auto) 0.0 TH/MM3 Basophils # (Auto) 0.1 TH/MM3 CBC Comment AUTO DIFF Differential Total Cells Counted 100 Neutrophils % (Manual) 71 % Band Neutrophils % 17 % Lymphocytes % 4 % Monocytes % 4 % Neutrophils # (Manual) 10.2 TH/MM3 Metamyelocytes 4 % Differential Comment FINAL DIFF MANUAL Platelet Estimate LOW Platelet Morphology Comment NORMAL Laboratory Tests Test 11/16/16 05:40 11/17/16 04:15 Blood Urea Nitrogen 27 MG/DL 19 MG/DL Creatinine 0.50 MG/DL 0.52 MG/DL Random Glucose 204 MG/DL 319 MG/DL Calcium Level 8.2 MG/DL 7.8 MG/DL Phosphorus Level 3.2 MG/DL 5.0 MG/DL Magnesium Level 2.1 MG/DL 2.1 MG/DL Sodium Level 132 MEQ/L 135 MEQ/L Potassium Level 4.7 MEQ/L 4.6 MEQ/L Chloride Level 97 MEQ/L 96 MEQ/L Carbon Dioxide Level 27.9 MEQ/L 30.4 MEQ/L Anion Gap 7 MEQ/L 9 MEQ/L Estimat Glomerular Filtration Rate 172 ML/MIN 164 ML/MIN Imaging Last Impressions Chest X-Ray 11/17/16 0600 Signed Impressions: Service Date/Time: Thursday, November 17, 2016 04:28 - CONCLUSION: Persistent bilateral lower lung consolidative infiltrates. Fito Joshua MD Lower Extremity Ultrasound 11/09/16 0000 Signed Impressions: Service Date/Time: Wednesday, November 09, 2016 14:13 - CONCLUSION: Normal examination. Jayson Manning MD Liver Ultrasound 11/09/16 0000 Signed Impressions: Service Date/Time: Wednesday, November 09, 2016 13:58 - CONCLUSION: Sono dense liver without duct dilatation. 4 mm common duct. Ward Kim MD FACR Chest CT 11/06/16 0000 Signed Impressions: Service Date/Time: Sunday, November 06, 2016 11:24 - CONCLUSION: 1. Dense bilateral posterior lower lobe airspace consolidation consistent with aspiration versus less likely pneumonia. 2. Linear consolidation in the right middle lobe consistent with atelectasis versus aspiration. 3. Trace left and small right pleural effusions. 4. Support lines and tubes in good position. 5. Prominent coronary artery calcifications. Nico Vaughan MD Head CT 11/05/16 0000 Signed Impressions: Service Date/Time: Saturday, November 05, 2016 21:43 - CONCLUSION: 1. No acute intracranial abnormalities. Pansinus fluid opacification. Cristofer De Santiago MD Abdomen X-Ray 10/29/16 0600 Signed Impressions: Service Date/Time: Saturday, October 29, 2016 04:41 - CONCLUSION: Nonspecific , nonobstructive bowel gas pattern. No evidence of free air. Jayson Taylor MD Carotid Artery Ultrasound 10/25/16 0000 Signed Impressions: Service Date/Time: September 08:27 - CONCLUSION: Mild to moderate plaque in both carotid systems with less than 40%% diameter stenosis by velocity criteria. Jhonathan Dietz MD CT Angiography 10/25/16 0000 Signed Impressions: Service Date/Time: September 06:12 - CONCLUSION: 1. Negative for pulmonary embolism. 2. There is a fairly large area of masslike consolidation in the medial right lung involving posterior segment right upper lobe and medial aspect of right lower lobe. There is associated right hilar and mediastinal adenopathy measuring up to 2.1 cm. Differential diagnosis includes pneumonia or underlying lung neoplasm. Close followup imaging recommended after treatment for pneumonia, to assess for underlying mass. Cristofer De Santiago MD Physical Exam CONSTITUTIONAL/GENERAL: This is a morbidly obese patient, sedated int'd on vent TUBES/LINES/DRAINS: SKIN: No jaundice, rashes, or lesions. Skin temperature appropriate. Not diaphoretic. CARDIOVASCULAR: Afib on the monitor tachycardia without murmurs, gallops, or rubs. No JVD. Peripheral pulses symmetric. RESPIRATORY/CHEST: Symmetric, unlabored respirations. Clear to auscultation. Breath sounds equal bilaterally. No wheezes, rales, or rhonchi. GASTROINTESTINAL: Abdomen soft, non-tender, mildly distended. No hepato- splenomegaly, or palpable masses. No guarding. Bowel sounds present. Dignisheilld in pl,jessica with liquid brown stool GENITOURINARY: Without palpable bladder distension. Santiago catheter in place with somewhat cloudy urine MUSCULOSKELETAL: Extremities without clubbing, cyanosis, less edema, but still about 2 + LYMPHATICS: No palpable cervical or supraclavicular adenopathy. NEUROLOGICAL: Sedated. opens eyes to voice and tactale stimulation PSYCHIATRIC: unable to assess Assessment & Plan Remarks PNA, Kleb oneumo - failrly sensitive ARDS Acute VDRF, failure to wean - also not a candidae for trach untill vent settings are lower Fever: low grade - new infx - ? drug reaction - 2/2 ARDS - procalcitonine is quite low blood clx remain negative Abx associated diarrhea, C.diff negative Abnormal UA, CANDIDURIA Persiastent leukocytosis REC's: cont CFTX x 1 week cont fluconazol x 1 week fu P blood clx untill final fu clinically fu WBC and temps will repeat sputumm clx Discussed Condition With Mariana De Guzman MD Nov 17, 2016 21:57
[2016-11-18] VITALS (23 sets, daily range): BP systolic 105–135; BP diastolic 57–88; PULSE 72–77; RESP 16; TEMP 98–99.7; O2SAT 88–92
[2016-11-18] MEDS: DILTIAZEM HCL 90 MG TAB PO SCH ×5 (00:17→23:31)
[2016-11-18] MEDS: METOPROLOL TARTRATE 50 MG TAB PO SCH ×5 (00:17→23:31)
[2016-11-18] MEDS: PROPOFOL 1000 MG/100 ML IV PRN ×8 (00:18→20:23)
[2016-11-18] MEDS ORDERED: INSULIN DETEMIR 100 UNITS/ML VIAL SQ SCH (01:00)
[2016-11-18 02:05] LABS: APTT (PATIENT) 46.9 SEC (24.3-30.1)
[2016-11-18] MEDS: RESP: ALBUTEROL 2.5 MG/IPRATROPIUM 0.5 MG NEB (SCH) NEB ×4 (02:56→19:54)
[2016-11-18] MEDS: INSULIN NovoLIN REGULAR SUPPLEMENTAL SCALE SQ SCH ×7 (04:00→23:31)
[2016-11-18] MEDS: CHLORHEXIDINE GLUCONATE 2 % 1 PACK (2 CLOTHS) TOP SCH (04:00)
[2016-11-18] MEDS: fentaNYL DRIP 250 ML IV PRN ×3 (04:57→22:45)
[2016-11-18] MEDS: cloNIDine HCL 0.3 MG TAB PO SCH (04:58)
[2016-11-18] MEDS: ISOSORBIDE DINITRATE 10 MG TAB PO SCH ×3 (04:58→21:35)
[2016-11-18 07:18] LABS: HEMATOCRIT 38.4 % (39.0-51.0); MEAN CELL VOLUME 96.6 FL (80.0-100.0); MEAN CORPUSCULAR HGB CONC 33.1 % (32.0-36.0); PLATELET COUNT 150 TH/MM3 (150-450); RED BLOOD COUNT 3.98 MIL/MM3 (4.50-5.90); RED CELL DISTRIBUTION WIDTH 14.5 % (11.6-17.2); REVIEW FLAG FINAL; WHITE BLOOD COUNT 10.1 TH/MM3 (4.0-11.0)
[2016-11-18] MEDS: RESP: BUDESONIDE 0.5 MG/2 ML NEB NEB SCH ×2 (07:33→19:54)
[2016-11-18 07:36] LABS: BICARBONATE 29.1 MEQ/L (21.0-32.0); POTASSIUM 4.2 MEQ/L (3.5-5.1)
[2016-11-18] MEDS: methylPREDNISolone SOD SUCC 40 MG/1 ML VIAL IV SCH (08:26)
[2016-11-18] MEDS: FAMOTIDINE 20 MG TAB NG SCH ×2 (08:26→20:22)
[2016-11-18] MEDS: SODIUM CHLORIDE 0.9% FLUSH 10 ML FLUSH SCH ×2 (08:26→20:10)
[2016-11-18] MEDS: SODIUM CHLORIDE 0.9% FLUSH 10 ML FLUSH IV FLUSH SCH (08:27)
[2016-11-18] MEDS: ARTIFICIAL TEARS OPTH OINT 3.5 APPLIC/3.5 GM TUBO EACH EYE SCH ×2 (08:27→20:22)
[2016-11-18] MEDS: SODIUM CHLORIDE 0.9% FLUSH 10 ML FLUSH IVF SCH (08:27)
[2016-11-18] MEDS: CHLORHEXIDINE 0.12% (ORAL KIT) 15 ML CUP MT SCH ×2 (08:30→20:06)
[2016-11-18] MEDS: HEPARIN-D5W 25,000 U/250 ML 250 ML IV PRN ×2 (08:50→22:47)
--- NOTE | 2016-11-18 08:58 | HHI.CCPN ---
Subjective Remarks/Hospital Course 56-year-old very pleasant gentleman with past medical history of COPD, and hypertension presents complaining of shortness of breath and nausea, generalized fatigue and chills for 2 days. He thinks it has been from being out in the heat. Denies any fever, chest pain, vomiting, abdominal pain, focal weakness or numbness. In the emergency department his saturation was in mid 80s on arrival with auditory wheezing and tachypnea. He was placed on 4 liters of NC and saturating in the low 90. He does not use oxygen at home. He also mentioned 2 days ago, he came home and was sitting in a chair and was taking his shoes off when he passed out. States he woke up and was still on the chair. This has never happen before. 10/25: Patient intubated secondary to increasing oxygen requirements, altered mental status. Discussed with son. Somewhat hypertensive post intubation. 10/26: Placed on rotaprone bed last evening. Flolan initiated. Saturations improved. Afebrile. Remains on Nimbex drip. 10/27: T max 99.7. Tolerated on not prone position 2 hours yesterday. Tolerating trickle feeds. FiO2 down to 55% 10/28: Tmax 99.9. When unprone for chest x-ray this a.m. desaturated. Currently on 90% FiO2. Actually hypertensive. No bowel movements. Remains paralyzed 10/29: Remains intubated sedated on continuous Prone therapy Except for chest x- ray. Fever 100.8. Panculture requested. Zyvox added. Continue IV sedation with propofol and fentanyl and Versed, neuromuscular paralysis with Nimbex 10/30: Prone cycle changed to 8 hr prone, 1 hr supine from 10/29. Due to hypoxia will continue with same cycle today. Chest x-ray remains unchanged. Patient remains severely hypoxemic FiO2 at 75% PEEP at 16. WBC count worsened to 18. Remains neuromuscularly paralyzed. 10/31: Patient remains critically ill but stable. Oxygen saturation 95% on 55 of FiO2 and PEEP of 16. Reduce PEEP to 14, FiO2 to 50% and start weaning Flolan. Increase supine time to 4 hours, reduce Prone time to 6 hours 11/01: Patient remains intubated sedated critically ill on neuromuscular paralysis. FiO2 reduced to 50, I will attempt PEEP wean gradually to 12 today. Prone/supine cycles will be changed to 6 hours each 11/02: FiO2 remains at 50%, PEEP reduced from 14 to 12 today, TV increased to 600 and RR to 20, in anticipation of discontinuing prone therapy, which will be DCd today. Off Flolan for 2 days 11/03: off pronation. fio2 up to 65% , peep 12. agitation causing desaturation. minimal improvements. 11/04: good diuresis yesterday, but despite that, fio2 persists at 65% and spo2 decreasing to 91% today. no real improvements and some worsening of pulmonary function despite ongoing aggressive therapies. still not safe for SBT given hypoxia. also severely hypertensive this morning. 11/05: continues to diurese well and Cr still at baseline. fio2 at 90% however, and no clinical improvements in mental status or hypoxia. still unsafe for SBT given hypoxemia. off pathway. hypertension under much better control. poor neuro status is concerning. 11/06: Remains severely hypoxemic. FiO2 was 100% PEEP 14. I reduce FiO2 to 90% after increasing PEEP to 16. Developed a flutter with RVR overnight, currently on Cardizem drip. Unable to do SBT due to very high settings 11/07: Remains hypoxemic and but able to wean FiO2 down to 80% with PEEP of 16. Remains unresponsive on sedation. Unable to trach due to his high vent settings and high FiO2. Remains on Cardizem and 15 mg per hour, with rate controlled a flutter. We'll start by mouth Cardizem in an attempt to wean IV Cardizem 11/08: Remains critically ill hypoxic but FiO2 now weaned to 60%, PEEP remains at 16. Very heavily sedated no withdrawal to pain. Will hold all continuos sedation. Sputum culture with Klebsiella sensitive to Rocephin. A flutter persistent, will start IV heparin 11/09 Patient is sedated with Diprivan and intubated, On Cardizem drip 15mg/hr for Aflutter. Heparin drip stated yesterday. 11/10 Patient remains sedated and intubated. On Heparin drip. Persistent fever with Tmax 102.5. ETT was replaced yesterday. 11/11 Patient was placed on Cardizem and amio drips overnight for Afib with RVR. Sedated with Diprivan and intubated. On Heparin drip. T;99.3 this morning. 11/12 Patient remains intubated and sedated with Diprivan. On Cardizem drip 15mg/ hr. Afebrile, Tmax 100.6 11/13 Patient is sedate with Diprivan and intubated. In Afib with RVR now on Amio drip. Tmax 100,4 11/14 Remains intubated sedated with propofol and fentanyl. Afib rate controlled , remains on amiodarone and Cardizem gtt. Fio2 remains high at 70%, PEEP 12. CXR persistent bibasilar infiltrates/effusion 11/15: Currently sedated with propofol and fentanyl drips. Currently in A. fib/ flutter on amiodarone drip and Cardizem drip. PEEP increased to 14. FiO2 65. 11/16: Tmax 100.1. Patient more alert and tachycardic this AM. Adding midazolam gtt for sedation and currently tolerating tube feeding. Positive BM. PEEP to 12. FiO2 75% 11/17: Afebrile. FiO2 down to 60%. PEEP set 12. Multiple tracheostomy hopefully on Saturday. Heart rate better control. Subjective 11/18: Afebrile. Discontinuing amiodarone drip today and switching to oral. FiO2 between 60 and 70%. Restarting epoprostenol in attempt to get FiO2 down to 50% for tracheostomy tomorrow Objective Vital Signs Date Time Temp Pulse Resp B/P (MAP) Pulse Ox O2 Delivery O2 Flow Rate FiO2 11/18/16 07:34 92 60 11/18/16 06:00 76 11/18/16 04:00 98.2 16 122/72 (89) Intake and Output 11/18/16 11/18/16 11/19/16 08:00 16:00 00:00 Intake Total 1683 ml Output Total 1550 ml Balance 133 ml Result Diagram: 11/18/16 0556 11/18/16 0556 Other Results Microbiology Date/Time Source Procedure Growth Status 11/10/16 11:40 Blood Peripheral Aerobic Blood Culture - Final NO GROWTH IN 5 DAYS Complete 11/10/16 11:40 Blood Peripheral Anaerobic Blood Culture - Final NO GROWTH IN 5 DAYS Complete 11/08/16 14:15 Stool Stool Stool Occult Blood (TYLER) - Final HEMOCCULT NEGATIVE Complete 11/10/16 05:45 Sputum Endotracheal Gram Stain - Final Complete 11/10/16 05:45 Sputum Culture - Final Klebsiella Pneumoniae Complete 11/11/16 01:15 Urine Catheterized Urine Urine Culture - Final Ana Albicans Complete Imaging Last Impressions Chest X-Ray 11/17/16 0600 Signed Impressions: Service Date/Time: Thursday, November 17, 2016 04:28 - CONCLUSION: Persistent bilateral lower lung consolidative infiltrates. Fito Joshua MD Lower Extremity Ultrasound 11/09/16 0000 Signed Impressions: Service Date/Time: Wednesday, November 09, 2016 14:13 - CONCLUSION: Normal examination. Jayson Manning MD Liver Ultrasound 11/09/16 0000 Signed Impressions: Service Date/Time: Wednesday, November 09, 2016 13:58 - CONCLUSION: Sono dense liver without duct dilatation. 4 mm common duct. Ward Kim MD FACR Chest CT 11/06/16 0000 Signed Impressions: Service Date/Time: Sunday, November 06, 2016 11:24 - CONCLUSION: 1. Dense bilateral posterior lower lobe airspace consolidation consistent with aspiration versus less likely pneumonia. 2. Linear consolidation in the right middle lobe consistent with atelectasis versus aspiration. 3. Trace left and small right pleural effusions. 4. Support lines and tubes in good position. 5. Prominent coronary artery calcifications. Nico Vaughan MD Head CT 11/05/16 0000 Signed Impressions: Service Date/Time: Saturday, November 05, 2016 21:43 - CONCLUSION: 1. No acute intracranial abnormalities. Pansinus fluid opacification. Cristofer De Santiago MD Abdomen X-Ray 10/29/16 0600 Signed Impressions: Service Date/Time: Saturday, October 29, 2016 04:41 - CONCLUSION: Nonspecific , nonobstructive bowel gas pattern. No evidence of free air. Jayson Taylor MD Carotid Artery Ultrasound 10/25/16 0000 Signed Impressions: Service Date/Time: September 08:27 - CONCLUSION: Mild to moderate plaque in both carotid systems with less than 40%% diameter stenosis by velocity criteria. Jhonathan Dietz MD CT Angiography 10/25/16 0000 Signed Impressions: Service Date/Time: September 06:12 - CONCLUSION: 1. Negative for pulmonary embolism. 2. There is a fairly large area of masslike consolidation in the medial right lung involving posterior segment right upper lobe and medial aspect of right lower lobe. There is associated right hilar and mediastinal adenopathy measuring up to 2.1 cm. Differential diagnosis includes pneumonia or underlying lung neoplasm. Close followup imaging recommended after treatment for pneumonia, to assess for underlying mass. Cristofer De Santiago MD Objective Remarks GENERAL: 56-year-old male, critically ill currently orotracheally intubated SKIN: Warm and dry. Positive intertrigo HEAD: Atraumatic. Normocephalic. EYES: Pupils equal and round about 3 mm bilaterally and reactive. No scleral icterus. No injection or drainage. ENT: No nasal bleeding or discharge. Mucous membranes pink and moist. NECK: Trachea midline. No JVD. CARDIOVASCULAR: Tachycardia, IR. S1, S2 no S4. Diminished heart sounds. Without murmur, clicks, or rubs RESPIRATORY: To Ms. Wojciech sounds throughout. Few cocci appreciated in bases bilaterally. Diminished. GASTROINTESTINAL: Abdomen soft, obese. Hypoactive bowel sounds appreciated MUSCULOSKELETAL: Extremities with trace lower extremity bilateral edema. No obvious deformities. NEUROLOGICAL: Positive gag. Positive corneal reflex. Withdraws to pain. 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 Haloperidol 5mg iv q4h prn for agitation. Brain CT on admission revealed no acute intracranial findings, CT brain 11/05- no acute findings. opacification of sinuses. Carotid ultrasound less than 50% stenosis bilaterally EEG 11/09: severe encephalopathy PT/OT for range of motion CV: Atrial fib/ flutter with RVR Hypertension- Discontinue amiodarone drip at 0.5 mg/mL and changed to amiodarone 4 mg by PEG twice a day Discontinued esmolol drip yesterday. Digoxin 0.125 mg daily. Recheck level in a.m. PO Cardizem 90 mg PO q6hr, Lopressor 50mg Q6, Clonidine 0.2mg Q8 and Isordil 10 mg 3 times a day for hypertension IV heparin for anticoagulation will be continued as patient will need tracheostomy Echo 10/25 EF 60-65% Resp: Acute hypoxemic Respiratory failure - severe and persistent. Severe ARDS COPD exacerbation Pneumonia most likely community-acquired Obesity hypoventilation syndrome Tobacco use disorder CT pulmonary angio revealed no pulmonary embolus. Masslike consolidation in the posterior right upper lobe and medial right lower lobe. Lymphadenopathy to 1 cm right hilum and subcarinal. Atelectasis left lower lobe. PRVC 16, TV 700, IT:1.1, PEEP:12, FIO2 70% to keep Saturation >88%. Will Need trach once PEEP <10, FiO2<50%. Intubated 10/25 CXR 11/17- Bibasilar infiltrates/effusion ( unchanged) Discontinued Prone therapy 11/02/16. Ventilator bundle, Albuterol/ipratropium every 4 hours with albuterol every 2 hours when necessary dyspnea Budesonide 0.5 mg aerosols twice a day. Methylprednisolone 40 mg IV daily Pulmonary/Dr. Wynne following Restarting epoprostenol attempt tracheostomy soon with Dr. Tyler GI: Morbid Obesity Elevated LFT's Monitor LFT, US liver: No ductal dilatation Continue tube feeds-Vital high protein 1.5@40ml/hr Famotidine 20 milligrams ng twice a day for GI prophylaxis Having bowel movements : Hypocalcemia Monitor renal function, I/O's, electrolytes replacement per protocol. 1 g calcium chloride 1 now. Recheck in a.m. Endo: Hyperglycemia- poorly controlled. SSI to q4h, high dose. Insulin detemir 62U q12- . Heme: Normocytic anemia Monitor CBC, coags- patient is on heparin drip. ID: Severe sepsis Pneumonia s/p ceftriaxone 11/02-11/09 for Enterobacter pneumonia. Repeat sputum Klebsiella sensitive to Rocephin 10/29/16-Enterobacter in sputum, 11/06/16, 11/10 sputum- Klebsiella Urine Legionella and pneumococcal antigens negative and influenza negative Follow up on BC from 11/08, Santiago replaced 11/09. C-diff PCR is negative Continue abx per ID (ceftriaxone through 11/20, Diflucan through 11/19). ID is following-Dr. Patel Access RUE PICC placed 11/05 through 11/15 replaced 11/16 with left upper extremity PICC Prophylaxis - GI, famotidine - DVT - IV heparin 11/09 Doppler US LE negative for DVT Critical Care: The total critical care time was 35 minutes. Time to perform other separately billable procedures was not included in the critical care time. Ubaldo Story MD Nov 18, 2016 08:58
[2016-11-18] MEDS: EPOPROSTENOL NEB SOLUTION 50 NG/KG/MIN 100 ML NEB SCH ×8 (09:00→23:10)
[2016-11-18] MEDS: AMIODARONE 200 MG TAB OG-TUBE SCH ×2 (09:00→20:22)
[2016-11-18] MEDS ORDERED: EPOPROSTENOL NEB SOLUTION 50 NG/KG/MIN 100 ML NEB SCH ×2 (09:00)
[2016-11-18] MEDS ORDERED: DIGOXIN 0.125 MG TAB PO ONE (09:30)
[2016-11-18] MEDS ORDERED: CALCIUM CHLORIDE INJ 1 GM in SODIUM CHLORIDE 0.9% INJ 100 ML IV ONE (10:00)
[2016-11-18] MEDS ORDERED: SODIUM CHLORIDE 1 GRAM TAB PO ONE (10:00)
[2016-11-18 10:28] LABS: CALCIUM-PROTEIN CORRECTED 7.8 MG/DL (8.5-10.1)
[2016-11-18] MEDS: INSULIN DETEMIR 100 UNITS/ML VIAL SQ SCH (13:00)
[2016-11-18] MEDS ORDERED: cloNIDine HCL 0.3 MG TAB OG-TUBE SCH (14:00)
[2016-11-18] MEDS: cefTRIAXone INJ 2,000 MG in SODIUM CHLORIDE 0.9% INJ 100 ML IV SCH (17:40)
[2016-11-18] MEDS: FLUCONAZOLE 200 MG PREMIX BAG 100 ML IV SCH (20:22)
[2016-11-18] MEDS: cloNIDine HCL 0.2 MG TAB OG-TUBE SCH (21:34)
--- NOTE | 2016-11-18 22:11 | HHI.PR ---
Addendum to Inpatient Note Addendum Reason: Additional Documentation Additional Information I will be off November [address] Sy is covering for me Mariana Patel MD Nov 18, 2016 22:11
[2016-11-19] VITALS (19 sets, daily range): BP systolic 112–144; BP diastolic 52–75; PULSE 71–145; RESP 9–18; TEMP 98–99; O2SAT 89–97
[2016-11-19] MEDS: PROPOFOL 1000 MG/100 ML IV PRN ×6 (00:05→21:39)
[2016-11-19] MEDS: INSULIN DETEMIR 100 UNITS/ML VIAL SQ SCH (00:23)
[2016-11-19] MEDS: RESP: ALBUTEROL 2.5 MG/IPRATROPIUM 0.5 MG NEB (SCH) NEB ×5 (00:39→16:00)
[2016-11-19] MEDS: CHLORHEXIDINE GLUCONATE 2 % 1 PACK (2 CLOTHS) TOP SCH (02:43)
[2016-11-19] MEDS: INSULIN NovoLIN REGULAR SUPPLEMENTAL SCALE SQ SCH ×5 (03:13→20:00)
[2016-11-19] MEDS: METOPROLOL TARTRATE 50 MG TAB PO SCH ×3 (05:19→17:45)
[2016-11-19] MEDS: DILTIAZEM HCL 90 MG TAB PO SCH ×3 (05:19→17:45)
[2016-11-19] MEDS: ISOSORBIDE DINITRATE 10 MG TAB PO SCH ×3 (05:19→21:39)
[2016-11-19] MEDS: cloNIDine HCL 0.2 MG TAB OG-TUBE SCH ×3 (05:19→21:39)
--- NOTE | 2016-11-19 05:42 | RADRPT ---
EXAM DATE/TIME: 11/19/2016 03:12 [facility] COMPARISON: CHEST SINGLE AP, November 17, 2016, 4:28. INDICATIONS : Shortness of breath, possible pulmonary disease. MEDICAL HISTORY : Chronic obstructive pulmonary disease. Hypertension Hypercholesterolemia. Renal stones SURGICAL HISTORY : None. ENCOUNTER: Subsequent ACUITY: 3 weeks PAIN SCORE: Non-responsive. LOCATION: Bilateral chest FINDINGS: A single view of the chest demonstrates endotracheal tube in good position. NG enters stomach. Left-s ided PICC line tip in superior vena cava. Basilar airspace disease and pleural effusions unchanged fr om November 17. CONCLUSION: 1. Support apparatus in good position. Stable basilar airspace disease and effusions. Cristofer De Santiago MD on November 19, 2016 at 5:39 Board Certified Radiologist. This report was verified electronically.
[2016-11-19 05:48] LABS: HEMATOCRIT 41.3 % (39.0-51.0); MEAN CELL VOLUME 96.4 FL (80.0-100.0); MEAN CORPUSCULAR HEMOGLOBIN 30.7 PG (27.0-34.0); MEAN CORPUSCULAR HGB CONC 31.8 % (32.0-36.0); PLATELET COUNT 163 TH/MM3 (150-450); RED BLOOD COUNT 4.29 MIL/MM3 (4.50-5.90); RED CELL DISTRIBUTION WIDTH 14.8 % (11.6-17.2); REVIEW FLAG FINAL; WHITE BLOOD COUNT 10.8 TH/MM3 (4.0-11.0)
[2016-11-19 06:01] LABS: APTT (PATIENT) 61.4 SEC (24.3-30.1)
[2016-11-19 06:39] LABS: BICARBONATE 31.4 MEQ/L (21.0-32.0); DIGOXIN 0.5 NG/ML (0.8-2.0); MAGNESIUM 1.9 MG/DL (1.5-2.5); POTASSIUM 4.7 MEQ/L (3.5-5.1)
--- NOTE | 2016-11-19 07:44 | HHI.CCPN ---
Subjective Remarks/Hospital Course 56-year-old very pleasant gentleman with past medical history of COPD, and hypertension presents complaining of shortness of breath and nausea, generalized fatigue and chills for 2 days. He thinks it has been from being out in the heat. Denies any fever, chest pain, vomiting, abdominal pain, focal weakness or numbness. In the emergency department his saturation was in mid 80s on arrival with auditory wheezing and tachypnea. He was placed on 4 liters of NC and saturating in the low 90. He does not use oxygen at home. He also mentioned 2 days ago, he came home and was sitting in a chair and was taking his shoes off when he passed out. States he woke up and was still on the chair. This has never happen before. 10/25: Patient intubated secondary to increasing oxygen requirements, altered mental status. Discussed with son. Somewhat hypertensive post intubation. 10/26: Placed on rotaprone bed last evening. Flolan initiated. Saturations improved. Afebrile. Remains on Nimbex drip. 10/27: T max 99.7. Tolerated on not prone position 2 hours yesterday. Tolerating trickle feeds. FiO2 down to 55% 10/28: Tmax 99.9. When unprone for chest x-ray this a.m. desaturated. Currently on 90% FiO2. Actually hypertensive. No bowel movements. Remains paralyzed 10/29: Remains intubated sedated on continuous Prone therapy Except for chest x- ray. Fever 100.8. Panculture requested. Zyvox added. Continue IV sedation with propofol and fentanyl and Versed, neuromuscular paralysis with Nimbex 10/30: Prone cycle changed to 8 hr prone, 1 hr supine from 10/29. Due to hypoxia will continue with same cycle today. Chest x-ray remains unchanged. Patient remains severely hypoxemic FiO2 at 75% PEEP at 16. WBC count worsened to 18. Remains neuromuscularly paralyzed. 10/31: Patient remains critically ill but stable. Oxygen saturation 95% on 55 of FiO2 and PEEP of 16. Reduce PEEP to 14, FiO2 to 50% and start weaning Flolan. Increase supine time to 4 hours, reduce Prone time to 6 hours 11/01: Patient remains intubated sedated critically ill on neuromuscular paralysis. FiO2 reduced to 50, I will attempt PEEP wean gradually to 12 today. Prone/supine cycles will be changed to 6 hours each 11/02: FiO2 remains at 50%, PEEP reduced from 14 to 12 today, TV increased to 600 and RR to 20, in anticipation of discontinuing prone therapy, which will be DCd today. Off Flolan for 2 days 11/03: off pronation. fio2 up to 65% , peep 12. agitation causing desaturation. minimal improvements. 11/04: good diuresis yesterday, but despite that, fio2 persists at 65% and spo2 decreasing to 91% today. no real improvements and some worsening of pulmonary function despite ongoing aggressive therapies. still not safe for SBT given hypoxia. also severely hypertensive this morning. 11/05: continues to diurese well and Cr still at baseline. fio2 at 90% however, and no clinical improvements in mental status or hypoxia. still unsafe for SBT given hypoxemia. off pathway. hypertension under much better control. poor neuro status is concerning. 11/06: Remains severely hypoxemic. FiO2 was 100% PEEP 14. I reduce FiO2 to 90% after increasing PEEP to 16. Developed a flutter with RVR overnight, currently on Cardizem drip. Unable to do SBT due to very high settings 11/07: Remains hypoxemic and but able to wean FiO2 down to 80% with PEEP of 16. Remains unresponsive on sedation. Unable to trach due to his high vent settings and high FiO2. Remains on Cardizem and 15 mg per hour, with rate controlled a flutter. We'll start by mouth Cardizem in an attempt to wean IV Cardizem 11/08: Remains critically ill hypoxic but FiO2 now weaned to 60%, PEEP remains at 16. Very heavily sedated no withdrawal to pain. Will hold all continuos sedation. Sputum culture with Klebsiella sensitive to Rocephin. A flutter persistent, will start IV heparin 11/09 Patient is sedated with Diprivan and intubated, On Cardizem drip 15mg/hr for Aflutter. Heparin drip stated yesterday. 11/10 Patient remains sedated and intubated. On Heparin drip. Persistent fever with Tmax 102.5. ETT was replaced yesterday. 11/11 Patient was placed on Cardizem and amio drips overnight for Afib with RVR. Sedated with Diprivan and intubated. On Heparin drip. T;99.3 this morning. 11/12 Patient remains intubated and sedated with Diprivan. On Cardizem drip 15mg/ hr. Afebrile, Tmax 100.6 11/13 Patient is sedate with Diprivan and intubated. In Afib with RVR now on Amio drip. Tmax 100,4 11/14 Remains intubated sedated with propofol and fentanyl. Afib rate controlled , remains on amiodarone and Cardizem gtt. Fio2 remains high at 70%, PEEP 12. CXR persistent bibasilar infiltrates/effusion 11/15: Currently sedated with propofol and fentanyl drips. Currently in A. fib/ flutter on amiodarone drip and Cardizem drip. PEEP increased to 14. FiO2 65. 11/16: Tmax 100.1. Patient more alert and tachycardic this AM. Adding midazolam gtt for sedation and currently tolerating tube feeding. Positive BM. PEEP to 12. FiO2 75% 11/17: Afebrile. FiO2 down to 60%. PEEP set 12. Multiple tracheostomy hopefully on Saturday. Heart rate better control. Subjective 11/18: Afebrile. Discontinuing amiodarone drip today and switching to oral. FiO2 between 60 and 70%. Restarting epoprostenol in attempt to get FiO2 down to 50% for tracheostomy tomorrow 11/19 No events overnight. Sedated with Diprivan, Fentanyl and versed. Still requiring high O2 - on PRVC with PEEP;12 and FIO2 70%. Afebrile. Objective Vital Signs Date Time Temp Pulse Resp B/P (MAP) Pulse Ox O2 Delivery O2 Flow Rate FiO2 11/19/16 06:00 75 11/19/16 04:07 89 70 11/19/16 04:00 98.8 16 133/75 (94) Intake and Output 11/19/16 11/19/16 11/20/16 08:00 16:00 00:00 Intake Total 750 ml Output Total 1225 ml Balance -475 ml Result Diagram: 11/19/1639911/19/16399 Other Results Laboratory Tests Test 11/19/16 04:00 White Blood Count 10.8 TH/MM3 Red Blood Count 4.29 MIL/MM3 Hemoglobin 13.1 GM/DL Hematocrit 41.3 % Mean Corpuscular Volume 96.4 FL Mean Corpuscular Hemoglobin 30.7 PG Mean Corpuscular Hemoglobin Concent 31.8 % Red Cell Distribution Width 14.8 % Platelet Count 163 TH/MM3 Mean Platelet Volume 9.5 FL Activated Partial Thromboplast Time 61.4 SEC Blood Urea Nitrogen 20 MG/DL Creatinine 0.34 MG/DL Random Glucose 123 MG/DL Calcium Level 8.5 MG/DL Phosphorus Level 3.1 MG/DL Magnesium Level 1.9 MG/DL Sodium Level 138 MEQ/L Potassium Level 4.7 MEQ/L Chloride Level 98 MEQ/L Carbon Dioxide Level 31.4 MEQ/L Anion Gap 9 MEQ/L Estimat Glomerular Filtration Rate 268 ML/MIN Digoxin Level 0.5 NG/ML Imaging Last Impressions Chest X-Ray 11/19/16 0600 Signed Impressions: Service Date/Time: Saturday, November 19, 2016 03:12 - CONCLUSION: 1. Support apparatus in good position. Stable basilar airspace disease and effusions. Cristofer De Santiago MD Lower Extremity Ultrasound 11/09/16 0000 Signed Impressions: Service Date/Time: Wednesday, November 09, 2016 14:13 - CONCLUSION: Normal examination. Jayson Manning MD Liver Ultrasound 11/09/16 0000 Signed Impressions: Service Date/Time: Wednesday, November 09, 2016 13:58 - CONCLUSION: Sono dense liver without duct dilatation. 4 mm common duct. Ward Kim MD FACR Chest CT 11/06/16 0000 Signed Impressions: Service Date/Time: Sunday, November 06, 2016 11:24 - CONCLUSION: 1. Dense bilateral posterior lower lobe airspace consolidation consistent with aspiration versus less likely pneumonia. 2. Linear consolidation in the right middle lobe consistent with atelectasis versus aspiration. 3. Trace left and small right pleural effusions. 4. Support lines and tubes in good position. 5. Prominent coronary artery calcifications. Nico Vaughan MD Head CT 11/05/16 0000 Signed Impressions: Service Date/Time: Saturday, November 05, 2016 21:43 - CONCLUSION: 1. No acute intracranial abnormalities. Pansinus fluid opacification. Cristofer De Santiago MD Abdomen X-Ray 10/29/16 0600 Signed Impressions: Service Date/Time: Saturday, October 29, 2016 04:41 - CONCLUSION: Nonspecific , nonobstructive bowel gas pattern. No evidence of free air. Jayson Taylor MD Carotid Artery Ultrasound 10/25/16 0000 Signed Impressions: Service Date/Time: September 08:27 - CONCLUSION: Mild to moderate plaque in both carotid systems with less than 40%% diameter stenosis by velocity criteria. Jhonathan Dietz MD CT Angiography 10/25/16 0000 Signed Impressions: Service Date/Time: September 06:12 - CONCLUSION: 1. Negative for pulmonary embolism. 2. There is a fairly large area of masslike consolidation in the medial right lung involving posterior segment right upper lobe and medial aspect of right lower lobe. There is associated right hilar and mediastinal adenopathy measuring up to 2.1 cm. Differential diagnosis includes pneumonia or underlying lung neoplasm. Close followup imaging recommended after treatment for pneumonia, to assess for underlying mass. Cristofer De Santiago MD Objective Remarks GENERAL: 56-year-old male, critically ill currently orotracheally intubated SKIN: Warm and dry. Positive intertrigo HEAD: Atraumatic. Normocephalic. EYES: Pupils equal and round about 3 mm bilaterally and reactive. No scleral icterus. No injection or drainage. ENT: No nasal bleeding or discharge. Mucous membranes pink and moist. NECK: Trachea midline. No JVD. CARDIOVASCULAR: Tachycardia, IR. S1, S2 no S4. Diminished heart sounds. Without murmur, clicks, or rubs RESPIRATORY: To Ms. Wojciech sounds throughout. Few cocci appreciated in bases bilaterally. Diminished. GASTROINTESTINAL: Abdomen soft, obese. Hypoactive bowel sounds appreciated MUSCULOSKELETAL: Extremities with trace lower extremity bilateral edema. No obvious deformities. NEUROLOGICAL: Positive gag. Positive corneal reflex. Withdraws to pain. 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 Goal of RASS -2 Daily sedation vacation prn hydromorphone for breakthrough. Haloperidol 5mg iv q4h prn for agitation. Brain CT on admission revealed no acute intracranial findings, CT brain 11/05- no acute findings. opacification of sinuses. Carotid ultrasound less than 50% stenosis bilaterally EEG 11/09: severe encephalopathy PT/OT for range of motion CV: Atrial fib/ flutter with RVR Hypertension- On Amiodarone 400mg Q12, Digoxin 0.125 mg daily(Dig. level 0.5) PO Cardizem 90 mg PO q6hr, Lopressor 50mg Q6, Clonidine 0.2mg Q8 and Isordil 10 mg 3 times a day for hypertension IV heparin for anticoagulation Echo 10/25 EF 60-65% Resp: Acute hypoxemic Respiratory failure - severe and persistent. Severe ARDS COPD exacerbation Pneumonia most likely community-acquired Obesity hypoventilation syndrome Tobacco use disorder CT pulmonary angio revealed no pulmonary embolus. Masslike consolidation in the posterior right upper lobe and medial right lower lobe. Lymphadenopathy to 1 cm right hilum and subcarinal. Atelectasis left lower lobe. PRVC 16, TV 700, IT:1.1, PEEP:12, FIO2 70% to keep Saturation >88%. Will Need trach once PEEP <10, FiO2<50%. Intubated 10/25 CXR today- stable basilar airspace disease ( unchanged) check ABG Discontinued Prone therapy 11/02/16. Ventilator bundle, Flolan restarted 11/18 30,000 ng/ml 8 ml/hr nebs Albuterol/ipratropium every 4 hours with albuterol every 2 hours when necessary dyspnea Budesonide 0.5 mg aerosols twice a day. Methylprednisolone 40 mg IV daily Pulmonary/Dr. Wynne following GI: Morbid Obesity Elevated LFT's Monitor LFT, US liver: No ductal dilatation Continue tube feeds-Vital high protein 1.5@40ml/hr Famotidine 20 milligrams ng twice a day for GI prophylaxis : Monitor renal function, I/O's, electrolytes replacement per protocol. Endo: Hyperglycemia- poorly controlled. SSI to q4h, high dose. hold Insulin detemir 62U q12- . Heme: Normocytic anemia Monitor CBC, coags- patient is on heparin drip. ID: Severe sepsis Pneumonia s/p ceftriaxone 11/02-11/09 for Enterobacter pneumonia. Repeat sputum Klebsiella sensitive to Rocephin 10/29/16-Enterobacter in sputum, 11/06/16, 11/10 sputum- Klebsiella Urine Legionella and pneumococcal antigens negative and influenza negative Follow up on BC from 11/08, Santiago replaced 11/09. C-diff PCR is negative Continue abx per ID (ceftriaxone through 11/20, Diflucan through 11/19). ID is following-Dr. Amanda Lewis RURobert PICC placed 11/05 through 11/15 replaced 11/16 with left upper extremity PICC Prophylaxis - GI, famotidine - DVT - IV heparin 11/09 Doppler US LE negative for DVT Critical Care: The total critical care time was 30 minutes. Time to perform other separately billable procedures was not included in the critical care time. Chepe Carney MD Nov 19, 2016 07:44
[2016-11-19] MEDS: RESP: BUDESONIDE 0.5 MG/2 ML NEB NEB SCH ×2 (08:00→20:05)
[2016-11-19] MEDS: AMIODARONE 200 MG TAB OG-TUBE SCH ×2 (08:11→21:39)
[2016-11-19] MEDS: FAMOTIDINE 20 MG TAB NG SCH ×2 (08:11→21:39)
[2016-11-19] MEDS: DIGOXIN 0.125 MG TAB PO SCH (08:12)
[2016-11-19] MEDS: EPOPROSTENOL NEB SOLUTION 50 NG/KG/MIN 100 ML NEB SCH ×4 (08:12→17:16)
[2016-11-19] MEDS: methylPREDNISolone SOD SUCC 40 MG/1 ML VIAL IV SCH (08:12)
[2016-11-19] MEDS: SODIUM CHLORIDE 0.9% FLUSH 10 ML FLUSH SCH ×2 (08:12→21:43)
[2016-11-19] MEDS: ARTIFICIAL TEARS OPTH OINT 3.5 APPLIC/3.5 GM TUBO EACH EYE SCH (08:13)
[2016-11-19] MEDS: CHLORHEXIDINE 0.12% (ORAL KIT) 15 ML CUP MT SCH ×2 (08:13→21:39)
[2016-11-19] MEDS: SODIUM CHLORIDE 0.9% FLUSH 10 ML FLUSH IV FLUSH SCH (08:13)
[2016-11-19] MEDS: SODIUM CHLORIDE 0.9% FLUSH 10 ML FLUSH IVF SCH (08:14)
[2016-11-19 08:42] LABS: BLOOD GAS BASE EXCESS 5.1 mmol/L (-2-2); BLOOD GAS HCO3 29 mmol/L (22-26); BLOOD GAS METHEMOGLOBIN 0.9 % (0-2); BLOOD GAS O2 HGB SATURATION 88 % (90-100); BLOOD GAS OXYGEN CONTENT 16.2 Vol % (12.0-20.0); BLOOD GAS PCO2 45 mmHg (38-42); BLOOD GAS PO2 59 mmHg (61-120); BLOOD GAS TOTAL HGB 13.1 G/DL (12.0-16.0); CRITICAL VALUE YES; OXYGEN DEVICE VENTILATOR; TEMP CORR TO 98.6
[2016-11-19 08:43] LABS: DRAW SITE RT RADIAL; FIO2 70 %
[2016-11-19 08:44] LABS: NUMBER OF ARTERIAL PUNCTURES 1; STAT NO; ULNAR PULSE PRESENT
[2016-11-19] MEDS ORDERED: DILTIAZEM HCL 25 MG/5 ML VIAL ONE (11:09)
[2016-11-19] MEDS: HEPARIN-D5W 25,000 U/250 ML 250 ML IV PRN (11:31)
[2016-11-19] MEDS: fentaNYL DRIP 250 ML IV PRN (12:44)
[2016-11-19] MEDS ORDERED: DILTIAZEM HCL 25 MG/5 ML VIAL IV PUSH ONE (13:15)
[2016-11-19] MEDS: cefTRIAXone INJ 2,000 MG in SODIUM CHLORIDE 0.9% INJ 100 ML IV SCH (17:45)
[2016-11-20] VITALS (21 sets, daily range): BP systolic 123–141; BP diastolic 67–84; PULSE 70–97; RESP 16–18; TEMP 98.1–99.1; O2SAT 83–98
[2016-11-20] MEDS: PROPOFOL 1000 MG/100 ML IV PRN ×8 (00:07→23:32)
[2016-11-20] MEDS: HEPARIN-D5W 25,000 U/250 ML 250 ML IV PRN ×2 (00:10→12:35)
[2016-11-20] MEDS: RESP: ALBUTEROL 2.5 MG/3 ML NEB (PRN) NEB ×4 (00:23→20:11)
[2016-11-20] MEDS: fentaNYL DRIP 250 ML IV PRN ×3 (00:50→12:33)
[2016-11-20] MEDS: METOPROLOL TARTRATE 50 MG TAB PO SCH ×4 (00:50→18:51)
[2016-11-20] MEDS: DILTIAZEM HCL 90 MG TAB PO SCH ×4 (00:50→18:51)
[2016-11-20] MEDS: INSULIN NovoLIN REGULAR SUPPLEMENTAL SCALE SQ SCH ×6 (04:00→20:00)
[2016-11-20] MEDS: CHLORHEXIDINE GLUCONATE 2 % 1 PACK (2 CLOTHS) TOP SCH (04:00)
[2016-11-20 05:04] LABS: APTT (PATIENT) 58.1 SEC (24.3-30.1)
[2016-11-20] MEDS: EPOPROSTENOL NEB SOLUTION 50 NG/KG/MIN 100 ML NEB SCH ×6 (05:05→14:13)
[2016-11-20 05:14] LABS: BASOPHIL % 0.3 % (0.0-2.0); EOSINOPHIL % 0.4 % (0.0-4.0); LYMPH % 5.2 % (9.0-44.0); LYMPHOCYTE # 0.6 TH/MM3 (1.0-4.8); MEAN CORPUSCULAR HEMOGLOBIN 30.6 PG (27.0-34.0); MEAN CORPUSCULAR HGB CONC 32.2 % (32.0-36.0); MONO % 4.8 % (0.0-8.0); NEUT % 89.3 % (16.0-70.0); PLATELET COUNT 172 TH/MM3 (150-450); RED BLOOD COUNT 4.31 MIL/MM3 (4.50-5.90); RED CELL DISTRIBUTION WIDTH 14.7 % (11.6-17.2); WHITE BLOOD COUNT 11.2 TH/MM3 (4.0-11.0)
[2016-11-20 05:16] LABS: BICARBONATE 31.8 MEQ/L (21.0-32.0); MAGNESIUM 2.1 MG/DL (1.5-2.5); POTASSIUM 4.9 MEQ/L (3.5-5.1)
[2016-11-20 05:31] LABS: HEMO FLAGS AUTO DIFF
[2016-11-20] MEDS: ISOSORBIDE DINITRATE 10 MG TAB PO SCH ×3 (06:15→21:01)
[2016-11-20] MEDS: cloNIDine HCL 0.2 MG TAB OG-TUBE SCH ×3 (06:15→21:01)
[2016-11-20] MEDS: MIDAZOLAM 100 MG/100 ML INJ 100 ML IV PRN (06:29)
[2016-11-20 06:58] LABS: BANDS 12 % (0-6); METAMYELOCYTES 2 % (0-1); MYELOCYTES 3 % (0-0); NEUTROPHIL # MANUAL DIFF 10.3 TH/MM3 (1.8-7.7); PLATELET ESTIMATE SMEAR NORMAL (NORMAL); PLATELET MORPHOLOGY NORMAL (NORMAL); POLYS (SEG NEUTROPHILS) 75 % (16-70); SCAN/DIFF FINAL DIFF MANUAL; WBC DIFF SAMPLE 100
--- NOTE | 2016-11-20 07:29 | HHI.IDPN ---
Note Infectious Disease Note ID COVERAGE FOR DR ADKINS Laboratory Tests Test 11/18/16 05:56 11/19/16 04:00 White Blood Count 10.1 TH/MM3 10.8 TH/MM3 Red Blood Count 3.98 MIL/MM3 4.29 MIL/MM3 Hemoglobin 12.7 GM/DL 13.1 GM/DL Hematocrit 38.4 % 41.3 % Mean Corpuscular Volume 96.6 FL 96.4 FL Mean Corpuscular Hemoglobin 32.0 PG 30.7 PG Mean Corpuscular Hemoglobin Concent 33.1 % 31.8 % Red Cell Distribution Width 14.5 % 14.8 % Platelet Count 150 TH/MM3 163 TH/MM3 Mean Platelet Volume 10.5 FL 9.5 FL Laboratory Tests Test 11/18/16 05:56 11/19/16 04:00 Blood Urea Nitrogen 17 MG/DL 20 MG/DL Creatinine 0.41 MG/DL 0.34 MG/DL Random Glucose 250 MG/DL 123 MG/DL Total Protein 4.6 GM/DL Calcium Level 6.5 MG/DL 8.5 MG/DL Phosphorus Level 4.9 MG/DL 3.1 MG/DL Magnesium Level 2.0 MG/DL 1.9 MG/DL Sodium Level 131 MEQ/L 138 MEQ/L Potassium Level 4.2 MEQ/L 4.7 MEQ/L Chloride Level 92 MEQ/L 98 MEQ/L Carbon Dioxide Level 29.1 MEQ/L 31.4 MEQ/L Anion Gap 10 MEQ/L 9 MEQ/L Estimat Glomerular Filtration Rate 216 ML/MIN 268 ML/MIN Protein Corrected Calcium 7.8 MG/DL Vital Signs Date Time Temp Pulse Resp B/P (MAP) Pulse Ox O2 Delivery O2 Flow Rate FiO2 11/19/16 08:04 91 70 11/19/16 06:00 75 11/19/16 04:07 89 70 11/19/16 04:00 98.8 73 16 133/75 (94) 89 11/19/16 04:00 73 11/19/16 04:00 70 11/19/16 02:00 73 11/19/16 00:46 94 70 11/19/16 00:00 98.8 74 16 144/74 (97) 96 11/19/16 00:00 74 11/19/16 00:00 70 11/18/16 22:00 76 11/18/16 20:00 73 11/18/16 20:00 70 11/18/16 20:00 99.1 74 16 135/71 (92) 90 11/18/16 19:55 90 70 11/18/16 18:11 74 11/18/16 16:05 70 11/18/16 16:00 72 11/18/16 16:00 99.7 72 16 127/69 (88) 90 11/18/16 15:00 72 16 122/88 (99) 90 11/18/16 14:39 89 80 11/18/16 14:03 73 16 113/62 (79) 89 11/18/16 14:00 73 11/18/16 13:00 73 16 117/64 (81) 89 11/18/16 12:00 73 11/18/16 12:00 99.2 73 16 126/68 (87) 89 11/18/16 12:00 70 11/18/16 11:00 74 16 117/69 (85) 90 11/18/16 10:00 74 16 110/75 (87) 90 11/18/16 10:00 74 11/18/16 09:00 74 16 109/64 (79) 88 MICROBIOLOGY DATA - REVIEWED SUBJECTIVE : Patient is sedated on the ventilator patient is afebrile PHYSICAL EXAM : VITALS: reviewed GENERAL: vented . intubated . HEENT: INTUBATED . No jaundice . NECK: Supple. No tenderness LUNGS: Transmitted upper airway sounds . CARDIAC: Regular rate and rhythm ABDOMEN: Soft, non tender. EXTREMITIES: Trace bilateral llower extremity edema : lawton cath is present with clear urine . SKIN: No rash. NEURO: Sedated on the ventilator Clinical Impression : Bacterial Pneumonia due to Klebsiella pneumoniae Candiduria , due to C.albicans Acute VDRF Pulmonary infiltrates / ARDS RECOMMENDATIONS : Continue present anti- infectives ID will continue to follow Devan Marrero MD Nov 20, 2016 07:29
[2016-11-20] MEDS: RESP: BUDESONIDE 0.5 MG/2 ML NEB NEB SCH ×2 (07:40→20:11)
--- NOTE | 2016-11-20 07:41 | HHI.CCPN ---
Subjective Remarks/Hospital Course 56-year-old very pleasant gentleman with past medical history of COPD, and hypertension presents complaining of shortness of breath and nausea, generalized fatigue and chills for 2 days. He thinks it has been from being out in the heat. Denies any fever, chest pain, vomiting, abdominal pain, focal weakness or numbness. In the emergency department his saturation was in mid 80s on arrival with auditory wheezing and tachypnea. He was placed on 4 liters of NC and saturating in the low 90. He does not use oxygen at home. He also mentioned 2 days ago, he came home and was sitting in a chair and was taking his shoes off when he passed out. States he woke up and was still on the chair. This has never happen before. 10/25: Patient intubated secondary to increasing oxygen requirements, altered mental status. Discussed with son. Somewhat hypertensive post intubation. 10/26: Placed on rotaprone bed last evening. Flolan initiated. Saturations improved. Afebrile. Remains on Nimbex drip. 10/27: T max 99.7. Tolerated on not prone position 2 hours yesterday. Tolerating trickle feeds. FiO2 down to 55% 10/28: Tmax 99.9. When unprone for chest x-ray this a.m. desaturated. Currently on 90% FiO2. Actually hypertensive. No bowel movements. Remains paralyzed 10/29: Remains intubated sedated on continuous Prone therapy Except for chest x- ray. Fever 100.8. Panculture requested. Zyvox added. Continue IV sedation with propofol and fentanyl and Versed, neuromuscular paralysis with Nimbex 10/30: Prone cycle changed to 8 hr prone, 1 hr supine from 10/29. Due to hypoxia will continue with same cycle today. Chest x-ray remains unchanged. Patient remains severely hypoxemic FiO2 at 75% PEEP at 16. WBC count worsened to 18. Remains neuromuscularly paralyzed. 10/31: Patient remains critically ill but stable. Oxygen saturation 95% on 55 of FiO2 and PEEP of 16. Reduce PEEP to 14, FiO2 to 50% and start weaning Flolan. Increase supine time to 4 hours, reduce Prone time to 6 hours 11/01: Patient remains intubated sedated critically ill on neuromuscular paralysis. FiO2 reduced to 50, I will attempt PEEP wean gradually to 12 today. Prone/supine cycles will be changed to 6 hours each 11/02: FiO2 remains at 50%, PEEP reduced from 14 to 12 today, TV increased to 600 and RR to 20, in anticipation of discontinuing prone therapy, which will be DCd today. Off Flolan for 2 days 11/03: off pronation. fio2 up to 65% , peep 12. agitation causing desaturation. minimal improvements. 11/04: good diuresis yesterday, but despite that, fio2 persists at 65% and spo2 decreasing to 91% today. no real improvements and some worsening of pulmonary function despite ongoing aggressive therapies. still not safe for SBT given hypoxia. also severely hypertensive this morning. 11/05: continues to diurese well and Cr still at baseline. fio2 at 90% however, and no clinical improvements in mental status or hypoxia. still unsafe for SBT given hypoxemia. off pathway. hypertension under much better control. poor neuro status is concerning. 11/06: Remains severely hypoxemic. FiO2 was 100% PEEP 14. I reduce FiO2 to 90% after increasing PEEP to 16. Developed a flutter with RVR overnight, currently on Cardizem drip. Unable to do SBT due to very high settings 11/07: Remains hypoxemic and but able to wean FiO2 down to 80% with PEEP of 16. Remains unresponsive on sedation. Unable to trach due to his high vent settings and high FiO2. Remains on Cardizem and 15 mg per hour, with rate controlled a flutter. We'll start by mouth Cardizem in an attempt to wean IV Cardizem 11/08: Remains critically ill hypoxic but FiO2 now weaned to 60%, PEEP remains at 16. Very heavily sedated no withdrawal to pain. Will hold all continuos sedation. Sputum culture with Klebsiella sensitive to Rocephin. A flutter persistent, will start IV heparin 11/09 Patient is sedated with Diprivan and intubated, On Cardizem drip 15mg/hr for Aflutter. Heparin drip stated yesterday. 11/10 Patient remains sedated and intubated. On Heparin drip. Persistent fever with Tmax 102.5. ETT was replaced yesterday. 11/11 Patient was placed on Cardizem and amio drips overnight for Afib with RVR. Sedated with Diprivan and intubated. On Heparin drip. T;99.3 this morning. 11/12 Patient remains intubated and sedated with Diprivan. On Cardizem drip 15mg/ hr. Afebrile, Tmax 100.6 11/13 Patient is sedate with Diprivan and intubated. In Afib with RVR now on Amio drip. Tmax 100,4 11/14 Remains intubated sedated with propofol and fentanyl. Afib rate controlled , remains on amiodarone and Cardizem gtt. Fio2 remains high at 70%, PEEP 12. CXR persistent bibasilar infiltrates/effusion 11/15: Currently sedated with propofol and fentanyl drips. Currently in A. fib/ flutter on amiodarone drip and Cardizem drip. PEEP increased to 14. FiO2 65. 11/16: Tmax 100.1. Patient more alert and tachycardic this AM. Adding midazolam gtt for sedation and currently tolerating tube feeding. Positive BM. PEEP to 12. FiO2 75% 11/17: Afebrile. FiO2 down to 60%. PEEP set 12. Multiple tracheostomy hopefully on Saturday. Heart rate better control. Subjective 11/18: Afebrile. Discontinuing amiodarone drip today and switching to oral. FiO2 between 60 and 70%. Restarting epoprostenol in attempt to get FiO2 down to 50% for tracheostomy tomorrow 11/19 No events overnight. Sedated with Diprivan, Fentanyl and versed. Still requiring high O2 - on PRVC with PEEP;12 and FIO2 70%. Afebrile. 11/20 Patient remains sedated with Diprivan, versed, Fentanyl and intubated. On PRVC with PEEP: 12, FIO2 50% , sats 88-90%. On Heparin drip. Objective Vital Signs Date Time Temp Pulse Resp B/P (MAP) Pulse Ox O2 Delivery O2 Flow Rate FiO2 11/20/16 06:00 72 11/20/16 04:09 93 50 11/20/16 04:00 99.1 18 123/81 (95) 11/19/16 16:09 Ventilator Intake and Output 11/20/16 11/20/16 11/21/16 08:00 16:00 00:00 Intake Total 2067 ml Output Total 600 ml Balance 1467 ml Result Diagram: 11/20/16 0440 11/20/16 0440 Other Results Laboratory Tests Test 11/19/16 08:25 11/20/16 04:40 Blood Gas Puncture Site RT RADIAL Blood Gas Patient Temperature 98.6 Blood Gas HCO3 29 mmol/L Blood Gas Base Excess 5.1 mmol/L Blood Gas Oxygen Saturation 88 % Arterial Blood pH 7.43 Arterial Blood Partial Pressure CO2 45 mmHg Arterial Blood Partial Pressure O2 59 mmHg Arterial Blood Oxygen Content 16.2 Vol % Arterial Blood Carboxyhemoglobin 1.0 % Arterial Blood Methemoglobin 0.9 % Blood Gas Hemoglobin 13.1 G/DL Oxygen Delivery Device VENTILATOR Blood Gas Ventilator Setting Blood Gas Inspired Oxygen 70 % White Blood Count 11.2 TH/MM3 Red Blood Count 4.31 MIL/MM3 Hemoglobin 13.2 GM/DL Hematocrit 41.0 % Mean Corpuscular Volume 95.0 FL Mean Corpuscular Hemoglobin 30.6 PG Mean Corpuscular Hemoglobin Concent 32.2 % Red Cell Distribution Width 14.7 % Platelet Count 172 TH/MM3 Mean Platelet Volume 9.2 FL Neutrophils (%) (Auto) 89.3 % Lymphocytes (%) (Auto) 5.2 % Monocytes (%) (Auto) 4.8 % Eosinophils (%) (Auto) 0.4 % Basophils (%) (Auto) 0.3 % Neutrophils # (Auto) 10.0 TH/MM3 Lymphocytes # (Auto) 0.6 TH/MM3 Monocytes # (Auto) 0.5 TH/MM3 Eosinophils # (Auto) 0.0 TH/MM3 Basophils # (Auto) 0.0 TH/MM3 CBC Comment AUTO DIFF Differential Total Cells Counted 100 Neutrophils % (Manual) 75 % Band Neutrophils % 12 % Lymphocytes % 3 % Monocytes % 5 % Neutrophils # (Manual) 10.3 TH/MM3 Metamyelocytes 2 % Myelocytes 3 % Differential Comment FINAL DIFF MANUAL Platelet Estimate NORMAL Platelet Morphology Comment NORMAL Activated Partial Thromboplast Time 58.1 SEC Blood Urea Nitrogen 19 MG/DL Creatinine 0.37 MG/DL Random Glucose 137 MG/DL Calcium Level 8.2 MG/DL Phosphorus Level 3.5 MG/DL Magnesium Level 2.1 MG/DL Sodium Level 135 MEQ/L Potassium Level 4.9 MEQ/L Chloride Level 98 MEQ/L Carbon Dioxide Level 31.8 MEQ/L Anion Gap 5 MEQ/L Estimat Glomerular Filtration Rate 243 ML/MIN Imaging Last Impressions Chest X-Ray 11/19/16 0600 Signed Impressions: Service Date/Time: Saturday, November 19, 2016 03:12 - CONCLUSION: 1. Support apparatus in good position. Stable basilar airspace disease and effusions. Cristofer De Santiago MD Lower Extremity Ultrasound 11/09/16 Signed Impressions: Service Date/Time: Wednesday, November 09, 2016 14:13 - CONCLUSION: Normal examination. Jayson Manning MD Liver Ultrasound 11/09/16 Signed Impressions: Service Date/Time: Wednesday, November 09, 2016 13:58 - CONCLUSION: Sono dense liver without duct dilatation. 4 mm common duct. Ward Kim MD FACR Chest CT 11/06/16 Signed Impressions: Service Date/Time: Sunday, November 06, 2016 11:24 - CONCLUSION: 1. Dense bilateral posterior lower lobe airspace consolidation consistent with aspiration versus less likely pneumonia. 2. Linear consolidation in the right middle lobe consistent with atelectasis versus aspiration. 3. Trace left and small right pleural effusions. 4. Support lines and tubes in good position. 5. Prominent coronary artery calcifications. Nico Vaughan MD Head CT 11/05/16 Signed Impressions: Service Date/Time: Saturday, November 05, 2016 21:43 - CONCLUSION: 1. No acute intracranial abnormalities. Pansinus fluid opacification. Cristofer De Santiago MD Abdomen X-Ray 10/29/16599 Signed Impressions: Service Date/Time: Saturday, October 29, 2016 04:41 - CONCLUSION: Nonspecific , nonobstructive bowel gas pattern. No evidence of free air. Jayson Taylor MD Carotid Artery Ultrasound 10/25/16 Signed Impressions: Service Date/Time: September 08:27 - CONCLUSION: Mild to moderate plaque in both carotid systems with less than 40%% diameter stenosis by velocity criteria. Jhonathan Dietz MD CT Angiography 10/25/16 Signed Impressions: Service Date/Time: September 06:12 - CONCLUSION: 1. Negative for pulmonary embolism. 2. There is a fairly large area of masslike consolidation in the medial right lung involving posterior segment right upper lobe and medial aspect of right lower lobe. There is associated right hilar and mediastinal adenopathy measuring up to 2.1 cm. Differential diagnosis includes pneumonia or underlying lung neoplasm. Close followup imaging recommended after treatment for pneumonia, to assess for underlying mass. Cristofer De Santiago MD Objective Remarks GENERAL: 56-year-old male, critically ill currently orotracheally intubated SKIN: Warm and dry. Positive intertrigo HEAD: Atraumatic. Normocephalic. EYES: Pupils equal and round about 3 mm bilaterally and reactive. No scleral icterus. No injection or drainage. ENT: No nasal bleeding or discharge. Mucous membranes pink and moist. NECK: Trachea midline. No JVD. CARDIOVASCULAR: Tachycardia, IR. S1, S2 no S4. Diminished heart sounds. Without murmur, clicks, or rubs RESPIRATORY: To Ms. Wojciech sounds throughout. Few cocci appreciated in bases bilaterally. Diminished. GASTROINTESTINAL: Abdomen soft, obese. Hypoactive bowel sounds appreciated MUSCULOSKELETAL: Extremities with trace lower extremity bilateral edema. No obvious deformities. NEUROLOGICAL: Positive gag. Positive corneal reflex. Withdraws to pain. 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 Goal of RASS -2 ,Daily sedation vacation Neuro eval for encephalopathy prn hydromorphone for breakthrough. Haloperidol 5mg iv q4h prn for agitation. Brain CT on admission revealed no acute intracranial findings, CT brain 11/05- no acute findings. opacification of sinuses. Carotid ultrasound less than 50% stenosis bilaterally EEG 11/09: severe encephalopathy PT/OT for range of motion CV: Atrial fib/ flutter with RVR Hypertension- On Amiodarone 400mg Q12, Digoxin 0.125 mg daily(Dig. level 0.5 on 11/19) PO Cardizem 90 mg PO q6hr, Lopressor 50mg Q6, Clonidine 0.2mg Q8 and Isordil 10 mg 3 times a day for hypertension IV heparin for anticoagulation Check echo with bubble study r/o shunt. Echo 10/25 EF 60-65% Resp: Acute hypoxemic Respiratory failure - severe and persistent. Severe ARDS COPD exacerbation Pneumonia most likely community-acquired Obesity hypoventilation syndrome Tobacco use disorder CT pulmonary angio revealed no pulmonary embolus. Masslike consolidation in the posterior right upper lobe and medial right lower lobe. Lymphadenopathy to 1 cm right hilum and subcarinal. Atelectasis left lower lobe. PRVC 16, TV 700, IT:1.3, PEEP:12, FIO2 50% to keep Saturation >88%. Will Need trach once PEEP <10, FiO2<50%. Intubated 10/25 CXR 11/19- stable basilar airspace disease ( unchanged) check ABG Discontinued Prone therapy 11/02/16. Ventilator bundle, Flolan restarted 11/18 30,000 ng/ml 8 ml/hr nebs Albuterol/ipratropium every 4 hours with albuterol every 2 hours when necessary dyspnea Budesonide 0.5 mg aerosols twice a day. Methylprednisolone 40 mg IV daily Pulmonary/Dr. Wynne following GI: Morbid Obesity Elevated LFT's Monitor LFT, US liver: No ductal dilatation Continue tube feeds-Vital high protein 1.5@40ml/hr Famotidine 20 milligrams ng twice a day for GI prophylaxis : Monitor renal function, I/O's, electrolytes replacement per protocol. Endo: Hyperglycemia- poorly controlled. SSI Q4 for glycemic control. . Heme: Normocytic anemia Monitor CBC, coags- patient is on heparin drip. ID: Severe sepsis Pneumonia s/p ceftriaxone 11/02-11/09 for Enterobacter pneumonia. Repeat sputum Klebsiella sensitive to Rocephin 10/29/16-Enterobacter in sputum, 11/06/16, 11/10 sputum- Klebsiella Urine Legionella and pneumococcal antigens negative and influenza negative Follow up on from 11/08, Santiago replaced 11/09. C-diff PCR is negative Continue abx per ID (ceftriaxone through 11/20, s/p Diflucan finished 11/19). ID is following-Dr. Patel Access RUE PICC placed 11/05 through 11/15 replaced 11/16 with left upper extremity PICC Prophylaxis - GI, famotidine - DVT - IV heparin 11/09 Doppler US LE negative for DVT Critical Care: The total critical care time was 30 minutes. Time to perform other separately billable procedures was not included in the critical care time. Chepe Carney MD Nov 20, 2016 07:41
[2016-11-20] MEDS ORDERED: GLUCAGON 1 MG/ML VIAL OTHER PRN (07:45)
[2016-11-20] MEDS ORDERED: INSULIN NovoLIN REGULAR SUPPLEMENTAL SCALE SQ SCH (07:45)
[2016-11-20] MEDS: CHLORHEXIDINE 0.12% (ORAL KIT) 15 ML CUP MT SCH ×2 (07:53→21:03)
[2016-11-20] MEDS: FAMOTIDINE 20 MG TAB NG SCH ×2 (07:53→21:01)
[2016-11-20] MEDS: methylPREDNISolone SOD SUCC 40 MG/1 ML VIAL IV SCH (07:53)
[2016-11-20] MEDS: AMIODARONE 200 MG TAB OG-TUBE SCH ×2 (07:54→21:01)
[2016-11-20] MEDS: DIGOXIN 0.125 MG TAB PO SCH (07:54)
[2016-11-20] MEDS: SODIUM CHLORIDE 0.9% FLUSH 10 ML FLUSH SCH ×2 (07:54→21:00)
[2016-11-20] MEDS: ARTIFICIAL TEARS OPTH OINT 3.5 APPLIC/3.5 GM TUBO EACH EYE SCH (07:55)
[2016-11-20] MEDS: SODIUM CHLORIDE 0.9% FLUSH 10 ML FLUSH IV FLUSH SCH (07:56)
[2016-11-20] MEDS: SODIUM CHLORIDE 0.9% FLUSH 10 ML FLUSH IVF SCH (07:56)
--- NOTE | 2016-11-20 16:14 | PD.CONS ---
History of Present Illness Service Neurology Consult Requested By [facility] Reason for Consult neuro status Primary Care Physician No Primary Care Physician History of Present Illness 55-year-old m admitted on 10/25/2016 for resp distress eventually intubated and has refractory hypoxemia. difficulty weaning off vent. not following. in ARDS. 11/05 ct brain naicp. prior eeg showed severe encephalopathy pt unable to give any hx. Review of Systems unable to obtain 2/2 mental status Past Family Social History Allergies: Coded Allergies: No Known Allergies (Unverified , 10/25/16) Past Medical History COPD Hypertension Past Surgical History None Reported Medications Reported Meds & Active Scripts Active Reported Lisinopril 20 Mg Tab 20 Mg PO HS Amlodipine (Amlodipine Besylate) 5 Mg Tab 5 Mg PO HS Family History No family history of early coronary artery disease or cancer Social History Smoker one pack per day Denies alcohol or illicit drug abuse Review of Systems All other ROS: Unable to obtain Past Family Social History Allergies: Coded Allergies: No Known Allergies (Unverified , 10/25/16) Active Ordered Medications Current Medications Medications (Trade) Dose Ordered Sig/Audelia Route Start Time Stop Time Status Last Admin (NS Flush) 2 ml UNSCH PRN .XX 10/25/16 05:30 11/09/16 23:57 (NS Flush) 2 ml BID .XX 10/25/16 09:00 11/20/16 07:54 (Tylenol) 650 mg Q6H PRN PO 10/25/16 05:30 11/12/16 12:02 (Zofran Inj) 4 mg Q6H PRN IV 10/25/16 05:30 Miscellaneous Information 1 Q361D XX 10/25/16 05:30 10/25/16 21:10 (Chlorhexidine 2% Cloth) Taper DAILY@04 TOP 10/26/16 04:00 10/22/17 03:59 11/18/16 04:00 (Chlorhexidine 2% Cloth) 3 pack UNSCH PRN TOP 10/25/16 05:30 (Milk Of Magnesia Liq) 30 ml Q12H PRN PO 10/25/16 05:30 10/26/16 20:52 (Senokot) 17.2 mg Q12H PRN PO 10/25/16 05:30 (Dulcolax Supp) 10 mg DAILY PRN RECTAL 10/25/16 05:30 (Lactulose Liq) 30 ml DAILY PRN PO 10/25/16 05:30 (Albuterol Neb) 2.5 mg Q2HR NEB PRN NEB 10/25/16 14:00 11/20/16 07:40 (Pulmicort Respule Neb) 0.5 mg Q12HR NEB NEB 10/25/16 20:00 11/20/16 07:40 (Peridex 0.12% Liq) 15 ml BID@08,20 MT 10/25/16 20:00 11/20/16 07:53 (NS Flush) DAILY IVF 10/26/16 09:00 11/18/16 08:27 (NS Flush) UNSCH PRN IVF 10/25/16 16:45 11/04/16 08:33 Propofol 100 ml @ 4.695 mls/ hr TITRATE PRN IV 10/26/16 08:30 11/20/16 12:32 (Lacrilube Opht Oint) 1 applic Q12HR EACH EYE 10/26/16 10:00 11/20/16 07:55 (Isordil) 10 mg Q8HR PO 10/28/16 14:00 11/20/16 14:53 (Haldol Inj) 5 mg Q4H PRN IV PUSH 11/03/16 13:00 (Trandate Inj) 20 mg Q15M PRN IV PUSH 11/03/16 13:00 11/08/16 10:50 Potassium Chloride 100 ml @ 50 mls/hr Q2H PRN IV 11/05/16 04:45 11/06/16 08:52 Potassium Chloride 100 ml @ 50 mls/hr Q2H PRN IV 11/05/16 04:45 11/11/16 13:00 (K-Lyte Cl Eff) 50 meq UNSCH PRN PO 11/05/16 04:45 Potassium Chloride 100 ml @ 25 mls/hr UNSCH PRN IV 11/05/16 04:45 11/10/16 05:42 Potassium Chloride 100 ml @ 50 mls/hr Q2H PRN IV 11/05/16 04:45 Magnesium Sulfate 4 gm/Sodium Chloride 100 ml @ 50 mls/hr UNSCH PRN IV 11/05/16 04:45 (Mag-Ox) 800 mg UNSCH PRN PO 11/05/16 04:45 Magnesium Sulfate 2 gm/Sodium Chloride 100 ml @ 50 mls/hr UNSCH PRN IV 11/05/16 04:45 (K-Phos) 2,000 mg Q4H PRN PO 11/05/16 04:45 Sodium Phosphate 30 mmol/Sodium Chloride 250 ml @ 42 mls/hr UNSCH PRN IV 11/05/16 04:45 (K-Phos) 2,000 mg UNSCH PRN PO/TUBE 11/05/16 04:45 Potassium Phosphate 30 mmol/ Sodium Chloride 260 ml @ 42 mls/hr UNSCH PRN IV 11/05/16 04:45 Heparin Sodium/ Dextrose 250 ml @ 10 mls/hr TITRATE PRN IV 11/08/16 10:15 11/20/16 12:35 (SoluMEDROL INJ) 40 mg DAILY IV 11/09/16 09:00 11/20/16 07:53 Ceftriaxone Sodium 2000 mg/ Sodium Chloride 100 ml @ 200 mls/hr Q24H IV 11/12/16 18:00 11/20/16 23:55 11/19/16 17:45 Fentanyl Citrate 250 ml @ 5 mls/hr TITRATE PRN IV 11/13/16 14:00 11/20/16 12:33 (Apresoline Inj) 10 mg Q1HR PRN IV PUSH 11/15/16 16:15 (Nitroglycerin 2% Oint) 2 inch Q6HR PRN TOPICAL 11/15/16 16:15 (Trandate Inj) 10 mg Q1HR PRN IV PUSH 11/15/16 16:15 (Cardizem) 90 mg Q6HR PO 11/15/16 18:00 11/20/16 12:32 Midazolam HCl 100 ml @ 2 mls/hr TITRATE PRN IV 11/16/16 12:15 11/20/16 06:29 (Lopressor) 50 mg Q6HR PO 11/16/16 18:00 11/20/16 12:32 (Pepcid) 20 mg BID NG 11/16/16 21:00 11/20/16 07:53 (NS Flush) See Protocol DAILY IV FLUSH 11/17/16 09:00 11/18/16 08:27 (NS Flush) See Protocol UNSCH PRN IV FLUSH 11/16/16 14:30 (Heparin Central Flush) See Protocol DAILY IV FLUSH 11/17/16 09:00 11/20/16 07:53 (Heparin Central Flush) See Protocol UNSCH PRN IV FLUSH 11/16/16 14:30 (NS Flush) UNSCH PRN IV FLUSH 11/16/16 14:30 (Cordarone) 400 mg Q12HR OG-TUBE 11/18/16 09:00 11/20/16 07:54 Epoprostenol Sodium 87.5 ml/ Sodium Chloride 100 ml @ 8 mls/hr Q8H NEB 11/18/16 09:00 11/20/16 14:13 (Lanoxin) 0.125 mg DAILY PO 11/19/16 09:00 11/20/16 07:54 (Levemir Inj) 62 units Q12H SQ 11/18/16 13:00 Future Hold 11/18/16 13:00 (Catapres) 0.2 mg Q8HR OG-TUBE 11/18/16 22:00 11/20/16 14:53 (D50w (Vial) Inj) 50 ml UNSCH PRN IV PUSH 11/20/16 07:45 (Glucagon Inj) 1 mg UNSCH PRN OTHER 11/20/16 07:45 (NovoLIN R SUPPLEMENTAL SCALE) 1 Q4HR SQ 11/20/16 08:00 11/20/16 12:00 Exam I&O / VS Vital Signs Date Time Temp Pulse Resp B/P (MAP) Pulse Ox O2 Delivery O2 Flow Rate FiO2 11/20/16 15:57 93 60 11/20/16 14:00 94 11/20/16 12:05 87 60 11/20/16 12:00 50 11/20/16 12:00 70 11/20/16 12:00 72 11/20/16 12:00 98.2 93 16 132/68 (89) 83 11/20/16 10:50 90 50 11/20/16 10:06 92 50 11/20/16 10:00 72 11/20/16 08:00 72 11/20/16 08:00 98.6 74 16 123/75 (91) 92 11/20/16 08:00 50 11/20/16 07:41 93 50 11/20/16 06:00 72 11/20/16 04:09 93 50 11/20/16 04:00 50 11/20/16 04:00 72 11/20/16 04:00 99.1 72 18 123/81 (95) 92 11/20/16 02:00 74 11/20/16 00:18 94 50 11/20/16 00:00 60 11/20/16 00:00 98.2 74 18 141/84 (103) 94 11/20/16 00:00 74 11/19/16 22:00 74 11/19/16 20:00 98.6 72 18 125/66 (85) 94 11/19/16 20:00 50 11/19/16 20:00 74 11/19/16 19:56 94 50 11/19/16 18:00 71 11/19/16 16:09 95 Ventilator Exam Comments intubated, morbidly obese. eyes open, minimal blink to threat. ou 3.5-3mm with mild ou opacity, mild eomi, not following, not verbal, not pinto, no clonus, planter flexor Review/Management Diagnosis/Plan: (1) Anoxic encephalopathy ICD Codes: G93.1 - Anoxic brain damage, not elsewhere classified Status: Acute Plan: encephalopathy 2/2 refractory hypoxemia/ARDS last ct brain 11/05 previous eeg-severe encephalopathy does have brainstem reflexes recs eeg mri brain/cspine when medically feasible. 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
[2016-11-20] MEDS: cefTRIAXone INJ 2,000 MG in SODIUM CHLORIDE 0.9% INJ 100 ML IV SCH (18:51)
--- NOTE | 2016-11-20 21:48 | MG ---
cc: FIONA RIGGINS Lab No: [id number] Date: 11/20/16 Age: Sex: M Race: Sedation has been stopped. Hyperventilation not performed. Hypertension. Catapres Lopressor A symmetric 8-9 Hz 60 microvolt posterior rhythm is seen. Overall, recording is synchronous and symmetric. Some blink artifact is noted. No epileptiform or seizure activity is seen. Occasionally some theta slowing is seen bilaterally and bitemporally. Photic stimulation was performed without significant posterior driving. IMPRESSION Minimal diffuse slowing, otherwise, a generally unremarkable recording. No seizure activity is seen. No hemisphere asymmetry is noted. MD CHRISTIANO Choudhury/ /9:33 PM /9:42 PM
[2016-11-21] VITALS (15 sets, daily range): BP systolic 115–176; BP diastolic 58–88; PULSE 71–132; RESP 16; TEMP 98.1–99.5; O2SAT 89–99
[2016-11-21] MEDS: DILTIAZEM HCL 90 MG TAB PO SCH ×4 (01:16→16:41)
[2016-11-21] MEDS: METOPROLOL TARTRATE 50 MG TAB PO SCH ×4 (01:16→16:41)
[2016-11-21] MEDS: HEPARIN-D5W 25,000 U/250 ML 250 ML IV PRN ×2 (01:19→14:15)
[2016-11-21] MEDS: fentaNYL DRIP 250 ML IV PRN ×2 (02:36→15:27)
[2016-11-21] MEDS: PROPOFOL 1000 MG/100 ML IV PRN ×6 (02:37→21:43)
[2016-11-21] MEDS: RESP: ALBUTEROL 2.5 MG/3 ML NEB (PRN) NEB ×3 (03:44→20:00)
[2016-11-21] MEDS: CHLORHEXIDINE GLUCONATE 2 % 1 PACK (2 CLOTHS) TOP SCH (04:00)
--- NOTE | 2016-11-21 06:07 | RADRPT ---
EXAM DATE/TIME: 11/21/2016 04:46 [facility] COMPARISON: CHEST SINGLE AP, November 19, 2016, 3:12. INDICATIONS : Shortness of breath. MEDICAL HISTORY : Chronic obstructive pulmonary disease. Hypercholesterolemia. Hypertension. SURGICAL HISTORY : None. ENCOUNTER: Subsequent ACUITY: 3 weeks PAIN SCORE: Non-responsive. LOCATION: Bilateral chest FINDINGS: A single view of the chest demonstrates endotracheal tube in good position. NG enters stomach. A cent ral line in superior vena cava. Basilar airspace disease. No pneumothorax. CONCLUSION: 1. Support apparatus unchanged. Basilar airspace disease and pleural fluid similar to November 19. Cristofer De Santiago MD on November 21, 2016 at 6:05 Board Certified Radiologist. This report was verified electronically.
[2016-11-21 06:55] LABS: APTT (PATIENT) 62.2 SEC (24.3-30.1)
[2016-11-21] MEDS: ISOSORBIDE DINITRATE 10 MG TAB PO SCH ×3 (06:59→21:42)
[2016-11-21] MEDS: EPOPROSTENOL NEB SOLUTION 50 NG/KG/MIN 100 ML NEB SCH ×2 (06:59)
[2016-11-21] MEDS: cloNIDine HCL 0.2 MG TAB OG-TUBE SCH ×3 (06:59→21:42)
[2016-11-21 07:04] LABS: ANION GAP 9 MEQ/L (5-15); AST (GOT) 19 U/L (15-37); BICARBONATE 30.1 MEQ/L (21.0-32.0); BLOOD UREA NITROGEN 19 MG/DL (7-18); CHLORIDE 98 MEQ/L (98-107); GLOMERULAR FILTRATION RATE 236 ML/MIN (>89); MAGNESIUM 2.1 MG/DL (1.5-2.5); POTASSIUM 4.5 MEQ/L (3.5-5.1); SODIUM (NA) 137 MEQ/L (136-145)
[2016-11-21 07:05] LABS: AUTOMATED NEUTROPHIL # 13.2 TH/MM3 (1.8-7.7); BASOPHIL % 0.3 % (0.0-2.0); EOSINOPHIL # 0.1 TH/MM3 (0-0.4); EOSINOPHIL % 0.8 % (0.0-4.0); HEMATOCRIT 41.7 % (39.0-51.0); LYMPH % 6.3 % (9.0-44.0); LYMPHOCYTE # 0.9 TH/MM3 (1.0-4.8); MEAN CELL VOLUME 95.1 FL (80.0-100.0); MEAN CORPUSCULAR HEMOGLOBIN 31.3 PG (27.0-34.0); MEAN CORPUSCULAR HGB CONC 32.9 % (32.0-36.0); NEUT % 87.6 % (16.0-70.0); PLATELET COUNT 181 TH/MM3 (150-450); RED BLOOD COUNT 4.39 MIL/MM3 (4.50-5.90); RED CELL DISTRIBUTION WIDTH 14.7 % (11.6-17.2); WHITE BLOOD COUNT 15.1 TH/MM3 (4.0-11.0)
[2016-11-21 07:07] LABS: ALKALINE PHOSPHATASE 58 U/L (45-117); ALT (GPT) 76 U/L (12-78); TOTAL BILIRUBIN ADULT 0.4 MG/DL (0.2-1.0)
[2016-11-21 07:12] LABS: HEMO FLAGS AUTO DIFF
[2016-11-21] MEDS: RESP: BUDESONIDE 0.5 MG/2 ML NEB NEB SCH ×2 (07:50→20:00)
[2016-11-21] MEDS: INSULIN NovoLIN REGULAR SUPPLEMENTAL SCALE SQ SCH ×5 (08:00→20:00)
[2016-11-21] MEDS: CHLORHEXIDINE 0.12% (ORAL KIT) 15 ML CUP MT SCH ×2 (08:49→20:34)
[2016-11-21] MEDS: methylPREDNISolone SOD SUCC 40 MG/1 ML VIAL IV SCH (08:50)
[2016-11-21] MEDS: FAMOTIDINE 20 MG TAB NG SCH ×2 (08:51→20:35)
[2016-11-21] MEDS: AMIODARONE 200 MG TAB OG-TUBE SCH ×2 (08:51→20:35)
[2016-11-21] MEDS: DIGOXIN 0.125 MG TAB PO SCH (08:52)
[2016-11-21] MEDS: SODIUM CHLORIDE 0.9% FLUSH 10 ML FLUSH IVF SCH (08:53)
[2016-11-21] MEDS: ARTIFICIAL TEARS OPTH OINT 3.5 APPLIC/3.5 GM TUBO EACH EYE SCH ×3 (08:54→20:35)
[2016-11-21] MEDS: SODIUM CHLORIDE 0.9% FLUSH 10 ML FLUSH IV FLUSH SCH (09:00)
[2016-11-21] MEDS: SODIUM CHLORIDE 0.9% FLUSH 10 ML FLUSH SCH ×2 (09:00→20:35)
[2016-11-21 09:03] LABS: BANDS 13 % (0-6); CORRECTED NUCLEATED RBC 1 /100 WBC (0-0); EOSINOPHILS 1 % (0-4); NEUTROPHIL # MANUAL DIFF 14.2 TH/MM3 (1.8-7.7); POLYS (SEG NEUTROPHILS) 81 % (16-70); WBC DIFF SAMPLE 100
[2016-11-21 09:18] LABS: SCAN/DIFF FINAL DIFF MANUAL
[2016-11-21] MEDS: LABETALOL HCL 100 MG/20 ML VIAL IV PUSH PRN (11:39)
--- NOTE | 2016-11-21 12:25 | HHI.CCPN ---
Subjective Remarks/Hospital Course 56-year-old very pleasant gentleman with past medical history of COPD, and hypertension presents complaining of shortness of breath and nausea, generalized fatigue and chills for 2 days. He thinks it has been from being out in the heat. Denies any fever, chest pain, vomiting, abdominal pain, focal weakness or numbness. In the emergency department his saturation was in mid 80s on arrival with auditory wheezing and tachypnea. He was placed on 4 liters of NC and saturating in the low 90. He does not use oxygen at home. He also mentioned 2 days ago, he came home and was sitting in a chair and was taking his shoes off when he passed out. States he woke up and was still on the chair. This has never happen before. 10/25: Patient intubated secondary to increasing oxygen requirements, altered mental status. Discussed with son. Somewhat hypertensive post intubation. 10/26: Placed on rotaprone bed last evening. Flolan initiated. Saturations improved. Afebrile. Remains on Nimbex drip. 10/27: T max 99.7. Tolerated on not prone position 2 hours yesterday. Tolerating trickle feeds. FiO2 down to 55% 10/28: Tmax 99.9. When unprone for chest x-ray this a.m. desaturated. Currently on 90% FiO2. Actually hypertensive. No bowel movements. Remains paralyzed 10/29: Remains intubated sedated on continuous Prone therapy Except for chest x- ray. Fever 100.8. Panculture requested. Zyvox added. Continue IV sedation with propofol and fentanyl and Versed, neuromuscular paralysis with Nimbex 10/30: Prone cycle changed to 8 hr prone, 1 hr supine from 10/29. Due to hypoxia will continue with same cycle today. Chest x-ray remains unchanged. Patient remains severely hypoxemic FiO2 at 75% PEEP at 16. WBC count worsened to 18. Remains neuromuscularly paralyzed. 10/31: Patient remains critically ill but stable. Oxygen saturation 95% on 55 of FiO2 and PEEP of 16. Reduce PEEP to 14, FiO2 to 50% and start weaning Flolan. Increase supine time to 4 hours, reduce Prone time to 6 hours 11/01: Patient remains intubated sedated critically ill on neuromuscular paralysis. FiO2 reduced to 50, I will attempt PEEP wean gradually to 12 today. Prone/supine cycles will be changed to 6 hours each 11/02: FiO2 remains at 50%, PEEP reduced from 14 to 12 today, TV increased to 600 and RR to 20, in anticipation of discontinuing prone therapy, which will be DCd today. Off Flolan for 2 days 11/03: off pronation. fio2 up to 65% , peep 12. agitation causing desaturation. minimal improvements. 11/04: good diuresis yesterday, but despite that, fio2 persists at 65% and spo2 decreasing to 91% today. no real improvements and some worsening of pulmonary function despite ongoing aggressive therapies. still not safe for SBT given hypoxia. also severely hypertensive this morning. 11/05: continues to diurese well and Cr still at baseline. fio2 at 90% however, and no clinical improvements in mental status or hypoxia. still unsafe for SBT given hypoxemia. off pathway. hypertension under much better control. poor neuro status is concerning. 11/06: Remains severely hypoxemic. FiO2 was 100% PEEP 14. I reduce FiO2 to 90% after increasing PEEP to 16. Developed a flutter with RVR overnight, currently on Cardizem drip. Unable to do SBT due to very high settings 11/07: Remains hypoxemic and but able to wean FiO2 down to 80% with PEEP of 16. Remains unresponsive on sedation. Unable to trach due to his high vent settings and high FiO2. Remains on Cardizem and 15 mg per hour, with rate controlled a flutter. We'll start by mouth Cardizem in an attempt to wean IV Cardizem 11/08: Remains critically ill hypoxic but FiO2 now weaned to 60%, PEEP remains at 16. Very heavily sedated no withdrawal to pain. Will hold all continuos sedation. Sputum culture with Klebsiella sensitive to Rocephin. A flutter persistent, will start IV heparin 11/09 Patient is sedated with Diprivan and intubated, On Cardizem drip 15mg/hr for Aflutter. Heparin drip stated yesterday. 11/10 Patient remains sedated and intubated. On Heparin drip. Persistent fever with Tmax 102.5. ETT was replaced yesterday. 11/11 Patient was placed on Cardizem and amio drips overnight for Afib with RVR. Sedated with Diprivan and intubated. On Heparin drip. T;99.3 this morning. 11/12 Patient remains intubated and sedated with Diprivan. On Cardizem drip 15mg/ hr. Afebrile, Tmax 100.6 11/13 Patient is sedate with Diprivan and intubated. In Afib with RVR now on Amio drip. Tmax 100,4 11/14 Remains intubated sedated with propofol and fentanyl. Afib rate controlled , remains on amiodarone and Cardizem gtt. Fio2 remains high at 70%, PEEP 12. CXR persistent bibasilar infiltrates/effusion 11/15: Currently sedated with propofol and fentanyl drips. Currently in A. fib/ flutter on amiodarone drip and Cardizem drip. PEEP increased to 14. FiO2 65. 11/16: Tmax 100.1. Patient more alert and tachycardic this AM. Adding midazolam gtt for sedation and currently tolerating tube feeding. Positive BM. PEEP to 12. FiO2 75% 11/17: Afebrile. FiO2 down to 60%. PEEP set 12. Multiple tracheostomy hopefully on Saturday. Heart rate better control. 11/18: Afebrile. Discontinuing amiodarone drip today and switching to oral. FiO2 between 60 and 70%. Restarting epoprostenol in attempt to get FiO2 down to 50% for tracheostomy tomorrow 11/19 No events overnight. Sedated with Diprivan, Fentanyl and versed. Still requiring high O2 - on PRVC with PEEP;12 and FIO2 70%. Afebrile. 11/20 Patient remains sedated with Diprivan, versed, Fentanyl and intubated. On PRVC with PEEP: 12, FIO2 50% , sats 88-90%. On Heparin drip. Subjective 11/21: Tmax 99.4. Tolerating tube feeds. Remains on heparin drip. FiO2 down to 55%. PEEP of 10. Eyes open blinks spontaneously. Does squeeze and weakly on left side with encouragement Objective Vital Signs Date Time Temp Pulse Resp B/P (MAP) Pulse Ox O2 Delivery O2 Flow Rate FiO2 11/21/16 11:31 92 55 11/21/16 04:00 99.4 86 16 122/58 (79) 11/19/16 16:09 Ventilator Intake and Output 9/11/21/16 11/22/16 08:00 16:00 00:00 Intake Total 2396 ml 100 ml Output Total 1550 ml Balance 846 ml 100 ml Result Diagram: 11/21/16 0515 11/21/16 0515 Other Results Microbiology Date/Time Source Procedure Growth Status 11/10/16 11:40 Blood Peripheral Aerobic Blood Culture - Final NO GROWTH IN 5 DAYS Complete 11/10/16 11:40 Blood Peripheral Anaerobic Blood Culture - Final NO GROWTH IN 5 DAYS Complete 11/08/16 14:15 Stool Stool Stool Occult Blood (TYLER) - Final HEMOCCULT NEGATIVE Complete 11/10/16 05:45 Sputum Endotracheal Gram Stain - Final Complete 11/10/16 05:45 Sputum Culture - Final Klebsiella Pneumoniae Complete 11/11/16 01:15 Urine Catheterized Urine Urine Culture - Final Ana Albicans Complete Imaging Last Impressions Chest X-Ray 11/21/16 0000 Signed Impressions: Service Date/Time: Monday, November 21, 2016 04:46 - CONCLUSION: 1. Support apparatus unchanged. Basilar airspace disease and pleural fluid similar to November 19. Cristfoer De Santiago MD Lower Extremity Ultrasound 11/09/16 0000 Signed Impressions: Service Date/Time: Wednesday, November 09, 2016 14:13 - CONCLUSION: Normal examination. Jayson Manning MD Liver Ultrasound 11/09/16 0000 Signed Impressions: Service Date/Time: Wednesday, November 09, 2016 13:58 - CONCLUSION: Sono dense liver without duct dilatation. 4 mm common duct. Ward Kim MD FACR Chest CT 11/06/16 0000 Signed Impressions: Service Date/Time: Sunday, November 06, 2016 11:24 - CONCLUSION: 1. Dense bilateral posterior lower lobe airspace consolidation consistent with aspiration versus less likely pneumonia. 2. Linear consolidation in the right middle lobe consistent with atelectasis versus aspiration. 3. Trace left and small right pleural effusions. 4. Support lines and tubes in good position. 5. Prominent coronary artery calcifications. Nico Vaughan MD Head CT 11/05/16 0000 Signed Impressions: Service Date/Time: Saturday, November 05, 2016 21:43 - CONCLUSION: 1. No acute intracranial abnormalities. Pansinus fluid opacification. Cristofer De Santiago MD Abdomen X-Ray 10/29/16 0600 Signed Impressions: Service Date/Time: Saturday, October 29, 2016 04:41 - CONCLUSION: Nonspecific , nonobstructive bowel gas pattern. No evidence of free air. Jayson Taylor MD Carotid Artery Ultrasound 10/25/16 0000 Signed Impressions: Service Date/Time: September 08:27 - CONCLUSION: Mild to moderate plaque in both carotid systems with less than 40%% diameter stenosis by velocity criteria. Jhonathan Dietz MD CT Angiography 10/25/16 0000 Signed Impressions: Service Date/Time: September 06:12 - CONCLUSION: 1. Negative for pulmonary embolism. 2. There is a fairly large area of masslike consolidation in the medial right lung involving posterior segment right upper lobe and medial aspect of right lower lobe. There is associated right hilar and mediastinal adenopathy measuring up to 2.1 cm. Differential diagnosis includes pneumonia or underlying lung neoplasm. Close followup imaging recommended after treatment for pneumonia, to assess for underlying mass. Cristofer De Santiago MD Objective Remarks GENERAL: 56-year-old male, critically ill currently orotracheally intubated SKIN: Warm and dry. Positive intertrigo HEAD: Atraumatic. Normocephalic. EYES: Pupils equal and round about 3 mm bilaterally and reactive. No scleral icterus. No injection or drainage. ENT: No nasal bleeding or discharge. Mucous membranes pink and moist. NECK: Trachea midline. No JVD. CARDIOVASCULAR: Tachycardia, IR. S1, S2 no S4. Diminished heart sounds. Without murmur, clicks, or rubs RESPIRATORY: To Ms. Wojciech sounds throughout. Few cocci appreciated in bases bilaterally. Diminished. GASTROINTESTINAL: Abdomen soft, obese. Hypoactive bowel sounds appreciated MUSCULOSKELETAL: Extremities with trace lower extremity bilateral edema. No obvious deformities. NEUROLOGICAL: Positive gag. Positive corneal reflex. Withdraws to pain. Weakly follows commands by squeezing hands left greater than right side to me today on sedation vacation Urinary Catheter: No Assessment to: Continue Vascular Central Line Catheter: Yes Assessment to: Continue Date of Insertion: Nov 16, 2016 Line: PICC Side: Left Location: Antecubital A/P Assessment and Plan Neuro/Psych: CIM/SHEFALI s/p Neuromuscular paralysis for Prone therapy Agitated Delirium, Metabolic Encephalopathy Syncope On propofol at 28 mics grams per kilogram minutes,, Fentanyl drip at 200 g an hour and Versed at 2 mg an hour infusion for sedation and vent synchrony. Goal of RASS -2 ,Daily sedation vacation Neuro eval for encephalopathy noted. Recommended MRI brain once stable prn hydromorphone for breakthrough. Haloperidol 5mg iv q4h prn for agitation. Brain CT on admission revealed no acute intracranial findings, CT brain 11/05- no acute findings. opacification of sinuses. Carotid ultrasound less than 50% stenosis bilaterally EEG 11/09: severe encephalopathy PT/OT for range of motion CV: Atrial fib/ flutter with RVR Hypertension- On Amiodarone 400mg Q12, Digoxin 0.125 mg daily(Dig. level 0.5 on 11/19) PO Cardizem 90 mg PO q6hr, Lopressor 50mg Q6, Clonidine 0.2mg Q8 and Isordil 10 mg 3 times a day for hypertension IV heparin for anticoagulation while awaiting trach placement Echo 10/25 EF 60-65% Additional bolus digoxin 0.25 mg 1 today. Recheck digoxin level in a.m. 11/22 Resp: Acute hypoxemic Respiratory failure - severe and persistent. Severe ARDS COPD exacerbation Pneumonia most likely community-acquired Obesity hypoventilation syndrome Tobacco use disorder CT pulmonary angio revealed no pulmonary embolus. Masslike consolidation in the posterior right upper lobe and medial right lower lobe. Lymphadenopathy to 1 cm right hilum and subcarinal. Atelectasis left lower lobe. PRVC 16, TV 700, IT:1.3, PEEP:10, FIO2 55% to keep Saturation >88%. Will Need trach once PEEP <10, FiO2<50%. Intubated 10/25 CXR 11/19- stable basilar airspace disease ( unchanged) check ABG Discontinued Prone therapy 11/02/16. Ventilator bundle, Epoprostenol restarted 11/18 50,000 ng/ml 8 ml/hr nebs Albuterol/ipratropium every 4 hours with albuterol every 2 hours when necessary dyspnea Budesonide 0.5 mg aerosols twice a day. Methylprednisolone 40 mg IV daily Pulmonary/Dr. Wynne following GI: Morbid Obesity Elevated LFT's Monitor LFT, US liver: No ductal dilatation Continue tube feeds-Vital high protein 1.5@40ml/hr Famotidine 20 milligrams mg twice a day for GI prophylaxis /renal: Monitor renal function, I/O's, electrolytes replacement per protocol. Endo: Hyperglycemia- poorly controlled. SSI Q4 for glycemic control. . Heme: Normocytic anemia Monitor CBC, coags- patient is on heparin drip. ID: Severe sepsis Pneumonia s/p ceftriaxone 11/02-11/09 for Enterobacter pneumonia. Repeat sputum Klebsiella sensitive to Rocephin 10/29/16-Enterobacter in sputum, 11/06/16, 11/10 sputum- Klebsiella Urine Legionella and pneumococcal antigens negative and influenza negative Follow up on BC from 11/08, Santiago replaced 11/09. C-diff PCR is negative Continue abx per ID (ceftriaxone through 11/20, s/p Diflucan finished 11/19). ID is following-Dr. Amanda MARK PICC placed 11/05 through 11/15 replaced 11/16 with left upper extremity PICC Prophylaxis - GI, famotidine - DVT - IV heparin gtt 11/09 Doppler US LE negative for DVT Critical Care: The total critical care time was 30 minutes. Time to perform other separately billable procedures was not included in the critical care time. Ubaldo Story MD Nov 21, 2016 12:25
[2016-11-21] MEDS ORDERED: DIGOXIN 0.5 MG/2 ML VIAL IV PUSH ONE (12:30)
[2016-11-22] VITALS (19 sets, daily range): BP systolic 122–170; BP diastolic 66–85; PULSE 71–98; RESP 16–31; TEMP 97.6–99.6; O2SAT 88–97
[2016-11-22] MEDS: EPOPROSTENOL NEB SOLUTION 50 NG/KG/MIN 100 ML NEB SCH ×6 (00:35→23:44)
[2016-11-22] MEDS: METOPROLOL TARTRATE 50 MG TAB PO SCH ×5 (00:35→23:44)
[2016-11-22] MEDS: DILTIAZEM HCL 90 MG TAB PO SCH ×5 (00:35→23:44)
[2016-11-22] MEDS: CHLORHEXIDINE GLUCONATE 2 % 1 PACK (2 CLOTHS) TOP SCH (00:36)
[2016-11-22] MEDS: PROPOFOL 1000 MG/100 ML IV PRN ×8 (00:50→23:45)
[2016-11-22] MEDS: RESP: ALBUTEROL 2.5 MG/3 ML NEB (PRN) NEB (03:15)
[2016-11-22] MEDS: fentaNYL DRIP 250 ML IV PRN ×2 (03:24→13:32)
[2016-11-22] MEDS: INSULIN NovoLIN REGULAR SUPPLEMENTAL SCALE SQ SCH ×7 (04:00→23:44)
[2016-11-22 05:02] LABS: AUTOMATED NEUTROPHIL # 14.4 TH/MM3 (1.8-7.7); BASOPHIL # 0.1 TH/MM3 (0-0.2); BASOPHIL % 0.4 % (0.0-2.0); EOSINOPHIL % 0.2 % (0.0-4.0); HEMATOCRIT 39.6 % (39.0-51.0); LYMPH % 4.8 % (9.0-44.0); LYMPHOCYTE # 0.8 TH/MM3 (1.0-4.8); MEAN CELL VOLUME 94.6 FL (80.0-100.0); MEAN CORPUSCULAR HEMOGLOBIN 31.4 PG (27.0-34.0); MEAN CORPUSCULAR HGB CONC 33.2 % (32.0-36.0); MONO % 6.3 % (0.0-8.0); NEUT % 88.3 % (16.0-70.0); PLATELET COUNT 174 TH/MM3 (150-450); RED BLOOD COUNT 4.18 MIL/MM3 (4.50-5.90); RED CELL DISTRIBUTION WIDTH 14.6 % (11.6-17.2); WHITE BLOOD COUNT 16.3 TH/MM3 (4.0-11.0)
[2016-11-22 05:03] LABS: HEMO FLAGS AUTO DIFF
[2016-11-22] MEDS: cloNIDine HCL 0.2 MG TAB OG-TUBE SCH ×3 (05:09→22:08)
[2016-11-22] MEDS: ISOSORBIDE DINITRATE 10 MG TAB PO SCH ×3 (05:09→22:08)
[2016-11-22 05:23] LABS: APTT (PATIENT) 27.7 SEC (24.3-30.1)
[2016-11-22 05:24] LABS: ANION GAP 6 MEQ/L (5-15); AST (GOT) 12 U/L (15-37); BICARBONATE 33.7 MEQ/L (21.0-32.0); BLOOD UREA NITROGEN 14 MG/DL (7-18); CHLORIDE 97 MEQ/L (98-107); GLOMERULAR FILTRATION RATE 288 ML/MIN (>89); POTASSIUM 4.5 MEQ/L (3.5-5.1); SODIUM (NA) 137 MEQ/L (136-145)
[2016-11-22 05:38] LABS: ALKALINE PHOSPHATASE 55 U/L (45-117); ALT (GPT) 59 U/L (12-78); DIGOXIN 0.8 NG/ML (0.8-2.0); TOTAL BILIRUBIN ADULT 0.5 MG/DL (0.2-1.0)
[2016-11-22 05:48] LABS: SCAN/DIFF AUTO DIFF CONFIRMED
[2016-11-22] MEDS: MIDAZOLAM 100 MG/100 ML INJ 100 ML IV PRN (05:52)
--- NOTE | 2016-11-22 05:58 | RADRPT ---
EXAM DATE/TIME: 11/22/2016 05:01 [facility] COMPARISON: CHEST SINGLE AP, November 21, 2016, 4:46. INDICATIONS : Respiratory failure. MEDICAL HISTORY : Chronic obstructive pulmonary disease. Hypertension Hypercholesterolemia. Renal stones. SURGICAL HISTORY : None. ENCOUNTER: Subsequent ACUITY: 3 weeks PAIN SCORE: Non-responsive. LOCATION: Bilateral chest FINDINGS: A single view of the chest demonstrates endotracheal tube in good position. Nasogastric tube enters s tomach. A left central line in superior vena cava. Bilateral mostly basilar lung consolidation and sm all effusions. CONCLUSION: 1. Support apparatus in good position. Basilar lung consolidation and small effusions. Cristofer De Santiago MD on November 22, 2016 at 5:56 Board Certified Radiologist. This report was verified electronically.
--- NOTE | 2016-11-22 07:29 | HHI.CCPN ---
Subjective Remarks/Hospital Course 56-year-old very pleasant gentleman with past medical history of COPD, and hypertension presents complaining of shortness of breath and nausea, generalized fatigue and chills for 2 days. He thinks it has been from being out in the heat. Denies any fever, chest pain, vomiting, abdominal pain, focal weakness or numbness. In the emergency department his saturation was in mid 80s on arrival with auditory wheezing and tachypnea. He was placed on 4 liters of NC and saturating in the low 90. He does not use oxygen at home. He also mentioned 2 days ago, he came home and was sitting in a chair and was taking his shoes off when he passed out. States he woke up and was still on the chair. This has never happen before. 10/25: Patient intubated secondary to increasing oxygen requirements, altered mental status. Discussed with son. Somewhat hypertensive post intubation. 10/26: Placed on rotaprone bed last evening. Flolan initiated. Saturations improved. Afebrile. Remains on Nimbex drip. 10/27: T max 99.7. Tolerated on not prone position 2 hours yesterday. Tolerating trickle feeds. FiO2 down to 55% 10/28: Tmax 99.9. When unprone for chest x-ray this a.m. desaturated. Currently on 90% FiO2. Actually hypertensive. No bowel movements. Remains paralyzed 10/29: Remains intubated sedated on continuous Prone therapy Except for chest x- ray. Fever 100.8. Panculture requested. Zyvox added. Continue IV sedation with propofol and fentanyl and Versed, neuromuscular paralysis with Nimbex 10/30: Prone cycle changed to 8 hr prone, 1 hr supine from 10/29. Due to hypoxia will continue with same cycle today. Chest x-ray remains unchanged. Patient remains severely hypoxemic FiO2 at 75% PEEP at 16. WBC count worsened to 18. Remains neuromuscularly paralyzed. 10/31: Patient remains critically ill but stable. Oxygen saturation 95% on 55 of FiO2 and PEEP of 16. Reduce PEEP to 14, FiO2 to 50% and start weaning Flolan. Increase supine time to 4 hours, reduce Prone time to 6 hours 11/01: Patient remains intubated sedated critically ill on neuromuscular paralysis. FiO2 reduced to 50, I will attempt PEEP wean gradually to 12 today. Prone/supine cycles will be changed to 6 hours each 11/02: FiO2 remains at 50%, PEEP reduced from 14 to 12 today, TV increased to 600 and RR to 20, in anticipation of discontinuing prone therapy, which will be DCd today. Off Flolan for 2 days 11/03: off pronation. fio2 up to 65% , peep 12. agitation causing desaturation. minimal improvements. 11/04: good diuresis yesterday, but despite that, fio2 persists at 65% and spo2 decreasing to 91% today. no real improvements and some worsening of pulmonary function despite ongoing aggressive therapies. still not safe for SBT given hypoxia. also severely hypertensive this morning. 11/05: continues to diurese well and Cr still at baseline. fio2 at 90% however, and no clinical improvements in mental status or hypoxia. still unsafe for SBT given hypoxemia. off pathway. hypertension under much better control. poor neuro status is concerning. 11/06: Remains severely hypoxemic. FiO2 was 100% PEEP 14. I reduce FiO2 to 90% after increasing PEEP to 16. Developed a flutter with RVR overnight, currently on Cardizem drip. Unable to do SBT due to very high settings 11/07: Remains hypoxemic and but able to wean FiO2 down to 80% with PEEP of 16. Remains unresponsive on sedation. Unable to trach due to his high vent settings and high FiO2. Remains on Cardizem and 15 mg per hour, with rate controlled a flutter. We'll start by mouth Cardizem in an attempt to wean IV Cardizem 11/08: Remains critically ill hypoxic but FiO2 now weaned to 60%, PEEP remains at 16. Very heavily sedated no withdrawal to pain. Will hold all continuos sedation. Sputum culture with Klebsiella sensitive to Rocephin. A flutter persistent, will start IV heparin 11/09 Patient is sedated with Diprivan and intubated, On Cardizem drip 15mg/hr for Aflutter. Heparin drip stated yesterday. 11/10 Patient remains sedated and intubated. On Heparin drip. Persistent fever with Tmax 102.5. ETT was replaced yesterday. 11/11 Patient was placed on Cardizem and amio drips overnight for Afib with RVR. Sedated with Diprivan and intubated. On Heparin drip. T;99.3 this morning. 11/12 Patient remains intubated and sedated with Diprivan. On Cardizem drip 15mg/ hr. Afebrile, Tmax 100.6 11/13 Patient is sedate with Diprivan and intubated. In Afib with RVR now on Amio drip. Tmax 100,4 11/14 Remains intubated sedated with propofol and fentanyl. Afib rate controlled , remains on amiodarone and Cardizem gtt. Fio2 remains high at 70%, PEEP 12. CXR persistent bibasilar infiltrates/effusion 11/15: Currently sedated with propofol and fentanyl drips. Currently in A. fib/ flutter on amiodarone drip and Cardizem drip. PEEP increased to 14. FiO2 65. 11/16: Tmax 100.1. Patient more alert and tachycardic this AM. Adding midazolam gtt for sedation and currently tolerating tube feeding. Positive BM. PEEP to 12. FiO2 75% 11/17: Afebrile. FiO2 down to 60%. PEEP set 12. Multiple tracheostomy hopefully on Saturday. Heart rate better control. 11/18: Afebrile. Discontinuing amiodarone drip today and switching to oral. FiO2 between 60 and 70%. Restarting epoprostenol in attempt to get FiO2 down to 50% for tracheostomy tomorrow 11/19 No events overnight. Sedated with Diprivan, Fentanyl and versed. Still requiring high O2 - on PRVC with PEEP;12 and FIO2 70%. Afebrile. 11/20 Patient remains sedated with Diprivan, versed, Fentanyl and intubated. On PRVC with PEEP: 12, FIO2 50% , sats 88-90%. On Heparin drip. Subjective 11/21: Tmax 99.4. Tolerating tube feeds. Remains on heparin drip. FiO2 down to 55%. PEEP of 10. Eyes open blinks spontaneously. Does squeeze and weakly on left side with encouragement 11/22: Intubated heavily sedated. FiO2 50%, remains on Flolan. PEEP 10. Bumex 1 mg 1 and Diamox 500 mg 1 IV. She will negative balance. Heparinized tube feeds on hold for tracheostomy today at 12. Remains in atrial flutter Objective Vital Signs Date Time Temp Pulse Resp B/P (MAP) Pulse Ox O2 Delivery O2 Flow Rate FiO2 11/22/16 06:00 75 11/22/16 04:36 91 50 11/22/16 04:00 98.8 16 160/77 (104) 11/19/16 16:09 Ventilator Intake and Output 11/22/16 11/22/16 11/23/16 08:00 16:00 00:00 Intake Total 1085 ml Output Total 1750 ml Balance -665 ml Result Diagram: 11/22/16 0355 11/22/16 0355 Imaging Last Impressions Chest X-Ray 11/21/16 0000 Signed Impressions: Service Date/Time: Monday, November 21, 2016 04:46 - CONCLUSION: 1. Support apparatus unchanged. Basilar airspace disease and pleural fluid similar to November 19. Cristofer De Santiago MD Lower Extremity Ultrasound 11/09/16 0000 Signed Impressions: Service Date/Time: Wednesday, November 09, 2016 14:13 - CONCLUSION: Normal examination. Jayson Manning MD Liver Ultrasound 11/09/16 0000 Signed Impressions: Service Date/Time: Wednesday, November 09, 2016 13:58 - CONCLUSION: Sono dense liver without duct dilatation. 4 mm common duct. Ward Kim MD FACR Chest CT 11/06/16 0000 Signed Impressions: Service Date/Time: Sunday, November 06, 2016 11:24 - CONCLUSION: 1. Dense bilateral posterior lower lobe airspace consolidation consistent with aspiration versus less likely pneumonia. 2. Linear consolidation in the right middle lobe consistent with atelectasis versus aspiration. 3. Trace left and small right pleural effusions. 4. Support lines and tubes in good position. 5. Prominent coronary artery calcifications. Nico Vaughan MD Head CT 11/05/16 0000 Signed Impressions: Service Date/Time: Saturday, November 05, 2016 21:43 - CONCLUSION: 1. No acute intracranial abnormalities. Pansinus fluid opacification. Cristofer De Santiago MD Abdomen X-Ray 10/29/16 0600 Signed Impressions: Service Date/Time: Saturday, October 29, 2016 04:41 - CONCLUSION: Nonspecific , nonobstructive bowel gas pattern. No evidence of free air. Jayson Taylor MD Carotid Artery Ultrasound 10/25/16 0000 Signed Impressions: Service Date/Time: September 08:27 - CONCLUSION: Mild to moderate plaque in both carotid systems with less than 40%% diameter stenosis by velocity criteria. Jhonathan Dietz MD CT Angiography 10/25/16 0000 Signed Impressions: Service Date/Time: September 06:12 - CONCLUSION: 1. Negative for pulmonary embolism. 2. There is a fairly large area of masslike consolidation in the medial right lung involving posterior segment right upper lobe and medial aspect of right lower lobe. There is associated right hilar and mediastinal adenopathy measuring up to 2.1 cm. Differential diagnosis includes pneumonia or underlying lung neoplasm. Close followup imaging recommended after treatment for pneumonia, to assess for underlying mass. Cristofer De Santiago MD Objective Remarks GENERAL: 56-year-old male, critically ill orotracheally intubated, heavily sedated SKIN: Warm and dry. Positive intertrigo HEAD: Atraumatic. Normocephalic. EYES: Pupils equal and round about 3 mm bilaterally and reactive. No scleral icterus. No injection or drainage. ENT: No nasal bleeding or discharge. Orotracheally intubated NECK: Trachea midline. No JVD. CARDIOVASCULAR: Atrial fibrillation rate controlled, IR. S1, S2 no S4. Diminished heart sounds. Without murmur, clicks, or rubs RESPIRATORY: Bilateral wheezes and rhonchi appreciated. Diminished. GASTROINTESTINAL: Abdomen soft, obese. Hypoactive bowel sounds appreciated MUSCULOSKELETAL: Extremities with trace lower extremity bilateral edema. No obvious deformities. NEUROLOGICAL: Withdraws to pain. Opens eyes intermittently. Positive gag. Positive corneal reflex. (Weakly follows commands by squeezing hands left greater than right side to Dr. Story 11/21/16 on sedation vacation) Urinary Catheter: Yes Assessment to: Continue Date of Insertion: Nov 16, 2016 Line: PICC Side: Left Location: Antecubital A/P Assessment and Plan Neuro/Psych: CIM/SHEFALI s/p Neuromuscular paralysis for Prone therapy Agitated Delirium, Metabolic Encephalopathy Syncope On propofol at 30 mics grams per kilogram minutes,, Fentanyl drip at 200 g an hour and Versed at 2 mg an hour infusion for sedation and vent synchrony. Goal of RASS -2 ,Daily sedation vacation Neuro eval for encephalopathy noted. Recommended MRI brain once stable prn hydromorphone for breakthrough. Haloperidol 5mg iv q4h prn for agitation. Brain CT on admission revealed no acute intracranial findings, CT brain 11/05- no acute findings. opacification of sinuses. Carotid ultrasound less than 50% stenosis bilaterally EEG 11/09: severe encephalopathy PT/OT for range of motion CV: Atrial fib/ flutter with RVR Hypertension- On Amiodarone 400mg Q12, Digoxin 0.125 mg daily(Dig. level 0.5 on 11/19) PO Cardizem 90 mg PO q6hr, Lopressor 50mg Q6, Clonidine 0.2mg Q8 and Isordil 10 mg 3 times a day for hypertension IV heparin for anticoagulation on hold for trach placement Echo 10/25 EF 60-65% Additional bolus digoxin 0.25 mg 11/21. Digoxin level 11/22-0.8 Consider DCCV after fully anticoagulated on Heparin Resp: Acute hypoxemic Respiratory failure - severe and persistent. Severe ARDS COPD exacerbation Pneumonia most likely community-acquired Obesity hypoventilation syndrome Tobacco use disorder Plan for perc trach today 11/21/16 CT pulmonary angio revealed no pulmonary embolus. Masslike consolidation in the posterior right upper lobe and medial right lower lobe. Lymphadenopathy to 1 cm right hilum and subcarinal. Atelectasis left lower lobe. PRVC 16, TV 700, IT:1.3, PEEP:10, FIO2 50% to keep Saturation >88%. Intubated . Trach today 11/22 Discontinued Prone therapy 11/02/16. Epoprostenol restarted 11/18 50,000 ng/ml 8 ml/hr nebs Albuterol/ipratropium every 4 hours with albuterol every 2 hours when necessary dyspnea. Ventilator bundle, Budesonide 0.5 mg aerosols twice a day. Methylprednisolone 40 mg IV daily Pulmonary/Dr. Wynne following GI: Morbid Obesity Elevated LFT's Monitor LFT, US liver: No ductal dilatation Continue tube feeds-Vital high protein 1.5@40ml/hr Famotidine 20 milligrams mg twice a day for GI prophylaxis /renal: Monitor renal function, I/O's, electrolytes replacement per protocol. IV Bumex 1 mg 1 and IV Diamox 500 mg 1 11/22/16 Endo: Hyperglycemia- poorly controlled. SSI Q4 for glycemic control. . Heme: Normocytic anemia Monitor CBC, coags- patient is on heparin drip. ID: Severe sepsis Pneumonia s/p ceftriaxone 11/02-11/09 for Enterobacter pneumonia. Repeat sputum Klebsiella sensitive to Rocephin 10/29/16-Enterobacter in sputum, 11/06/16, 11/10 sputum- Klebsiella Urine Legionella and pneumococcal antigens negative and influenza negative Follow up on BC from 11/08, Santiago replaced 11/09. C-diff PCR is negative Continue abx per ID (ceftriaxone through 11/20, s/p Diflucan finished 11/19). ID is following-Dr. Amanda MARK PICC placed 11/05 through 11/15 replaced 11/16 with left upper extremity PICC Prophylaxis - GI, famotidine - DVT - IV heparin gtt 11/09 Doppler US LE negative for DVT Critical Care: The total critical care time was 32 minutes. Time to perform other separately billable procedures was not included in the critical care time. Roro Tyler MD Nov 22, 2016 07:29
[2016-11-22] MEDS ORDERED: BUMETANIDE INJ 1 MG/4 ML VIAL IV PUSH ONE (07:30)
[2016-11-22] MEDS: methylPREDNISolone SOD SUCC 40 MG/1 ML VIAL IV SCH (07:55)
[2016-11-22] MEDS: FAMOTIDINE 20 MG TAB NG SCH ×2 (07:56→20:10)
[2016-11-22] MEDS: DIGOXIN 0.125 MG TAB PO SCH (07:57)
[2016-11-22] MEDS: AMIODARONE 200 MG TAB OG-TUBE SCH ×2 (07:57→20:10)
[2016-11-22] MEDS: SODIUM CHLORIDE 0.9% FLUSH 10 ML FLUSH SCH ×2 (07:58→20:10)
[2016-11-22] MEDS: SODIUM CHLORIDE 0.9% FLUSH 10 ML FLUSH IV FLUSH SCH (07:58)
[2016-11-22] MEDS: ARTIFICIAL TEARS OPTH OINT 3.5 APPLIC/3.5 GM TUBO EACH EYE SCH ×2 (07:58→20:10)
[2016-11-22] MEDS: SODIUM CHLORIDE 0.9% FLUSH 10 ML FLUSH IVF SCH (08:02)
[2016-11-22] MEDS: CHLORHEXIDINE 0.12% (ORAL KIT) 15 ML CUP MT SCH ×2 (08:03→20:09)
[2016-11-22] MEDS ORDERED: fentaNYL CITRATE 250 MCG/5 ML AMP IV PUSH ONE (08:15)
[2016-11-22] MEDS ORDERED: ROCURONIUM INJ 50 MG/5 ML VIAL IV ONE (08:15)
[2016-11-22] MEDS: RESP: ALBUTEROL 2.5 MG/IPRATROPIUM 0.5 MG NEB (SCH) NEB ×5 (08:17→23:27)
[2016-11-22] MEDS: RESP: BUDESONIDE 0.5 MG/2 ML NEB NEB SCH ×2 (08:17→19:33)
--- NOTE | 2016-11-22 11:20 | RADRPT ---
EXAM DATE/TIME: 11/22/2016 10:26 [facility] COMPARISON: CHEST SINGLE AP, November 22, 2016, 5:01. INDICATIONS : Decrease in O2 saturation level. MEDICAL HISTORY : Chronic obstructive pulmonary disease. Hypertension. Hypercholesterolemia. Renal stones. SURGICAL HISTORY : None. ENCOUNTER: Subsequent ACUITY: 1 day PAIN SCORE: Non-responsive. LOCATION: Bilateral chest FINDINGS: Stable ETT, left subclavian central line, and suctioned a nasogastric catheter with tip extending bey ond the GE junction limited from the image. Persistent small to moderate right pleural effusion and a ssociated right lower lobe airspace disease. Grossly stable left lower lobe airspace disease and like ly small left pleural effusion. Cardiomedi cell contours are stable. Remainder of the exam is unchang ed. CONCLUSION: 1. Limited exam due to omission of portions of the left lower hemithorax. 2. Stable tubes and lines. 3. Stable small to moderate right pleural effusion and associated right lower lobe airspace disease. 4. Stable left lower lobe airspace disease and small left pleural effusion. 5. No significant interval change. Nico Vaughan MD on November 22, 2016 at 11:16 Board Certified Radiologist. This report was verified electronically.
--- NOTE | 2016-11-22 16:23 | ECHRPT ---
Indication: R/O Shunt CONCLUSIONS No atrial level shunt is observed with agitated saline contrast administration. BP: 157 / 88 HR: 84 Rhythm: Sinus MEASUREMENTS (Male / Female) Normal Values Technical Quality:Technically difficult study 2D ECHO LVOT Diameter 2.1 cm M-MODE Aortic Root Diameter MM 3.8 cm AV Cusp Separation MM 2.3 cm FINDINGS ATRIAL SEPTUM No atrial level shunt is observed with agitated saline contrast administration. Brennon Smith MD (Electronically Signed) Final Date:22 November 2016 16:22
[2016-11-22 16:24] LABS: BLOOD GAS BASE EXCESS 4.6 mmol/L (-2-2); BLOOD GAS CARBOXYHEMOGLOBIN 1.3 % (0-4); BLOOD GAS HCO3 29 mmol/L (22-26); BLOOD GAS METHEMOGLOBIN 1.1 % (0-2); BLOOD GAS O2 HGB SATURATION 95 % (90-100); BLOOD GAS OXYGEN CONTENT 18.9 Vol % (12.0-20.0); BLOOD GAS PCO2 46 mmHg (38-42); BLOOD GAS PO2 96 mmHg (61-120); BLOOD GAS TOTAL HGB 14.1 G/DL (12.0-16.0); CRITICAL VALUE YES; OXYGEN DEVICE VENTILATOR; TEMP CORR TO 98.6
[2016-11-22 16:26] LABS: DRAW SITE LT RADIAL; FIO2 70 %; NUMBER OF ARTERIAL PUNCTURES 1; STAT NO; ULNAR PULSE PRESENT
[2016-11-22] MEDS ORDERED: HEPARIN SODIUM - IV 10,000 UNITS/10 ML VIAL IV PUSH PRN (17:45)
[2016-11-22] MEDS: HEPARIN 25,000 UNITS-D5W 250 ML - PREMIX IV SCH (18:58)
[2016-11-22] MEDS ORDERED: HEPARIN-D5W 25,000 U/250 ML 250 ML IV PRN (20:15)
[2016-11-23] VITALS (52 sets, daily range): BP systolic 109–181; BP diastolic 63–92; PULSE 52–123; RESP 5–29; TEMP 98.2–101.6; O2SAT 84–96
[2016-11-23 01:32] LABS: APTT (PATIENT) 30.7 SEC (24.3-30.1)
[2016-11-23] MEDS: fentaNYL DRIP 250 ML IV PRN ×2 (01:36→13:24)
[2016-11-23] MEDS: HEPARIN SODIUM - IV 10,000 UNITS/10 ML VIAL IV PUSH PRN ×2 (01:45→09:39)
[2016-11-23] MEDS: RESP: ALBUTEROL 2.5 MG/IPRATROPIUM 0.5 MG NEB (SCH) NEB ×6 (03:22→23:57)
[2016-11-23] MEDS: CHLORHEXIDINE GLUCONATE 2 % 1 PACK (2 CLOTHS) TOP SCH ×2 (04:00→19:41)
[2016-11-23] MEDS: PROPOFOL 1000 MG/100 ML IV PRN ×5 (04:20→13:24)
[2016-11-23] MEDS: INSULIN NovoLIN REGULAR SUPPLEMENTAL SCALE SQ SCH ×6 (04:26→23:53)
[2016-11-23 05:27] LABS: HEMATOCRIT 41.3 % (39.0-51.0); MEAN CELL VOLUME 95.5 FL (80.0-100.0); MEAN CORPUSCULAR HEMOGLOBIN 31.1 PG (27.0-34.0); MEAN CORPUSCULAR HGB CONC 32.6 % (32.0-36.0); PLATELET COUNT 167 TH/MM3 (150-450); RED BLOOD COUNT 4.33 MIL/MM3 (4.50-5.90); RED CELL DISTRIBUTION WIDTH 14.6 % (11.6-17.2); REVIEW FLAG FINAL; WHITE BLOOD COUNT 17.1 TH/MM3 (4.0-11.0)
[2016-11-23] MEDS: ISOSORBIDE DINITRATE 10 MG TAB PO SCH ×2 (05:27→14:00)
[2016-11-23] MEDS: METOPROLOL TARTRATE 50 MG TAB PO SCH ×2 (05:27→13:21)
[2016-11-23] MEDS: cloNIDine HCL 0.2 MG TAB OG-TUBE SCH ×2 (06:10→14:00)
[2016-11-23] MEDS: DILTIAZEM HCL 90 MG TAB PO SCH ×2 (06:10→13:20)
[2016-11-23] MEDS ORDERED: BUMETANIDE INJ 1 MG/4 ML VIAL IV PUSH ONE (07:15)
[2016-11-23] MEDS: EPOPROSTENOL NEB SOLUTION 50 NG/KG/MIN 100 ML NEB SCH ×2 (07:26)
--- NOTE | 2016-11-23 07:26 | HHI.CCPN ---
Subjective Remarks/Hospital Course 56-year-old very pleasant gentleman with past medical history of COPD, and hypertension presents complaining of shortness of breath and nausea, generalized fatigue and chills for 2 days. He thinks it has been from being out in the heat. Denies any fever, chest pain, vomiting, abdominal pain, focal weakness or numbness. In the emergency department his saturation was in mid 80s on arrival with auditory wheezing and tachypnea. He was placed on 4 liters of NC and saturating in the low 90. He does not use oxygen at home. He also mentioned 2 days ago, he came home and was sitting in a chair and was taking his shoes off when he passed out. States he woke up and was still on the chair. This has never happen before. 10/25: Patient intubated secondary to increasing oxygen requirements, altered mental status. Discussed with son. Somewhat hypertensive post intubation. 10/26: Placed on rotaprone bed last evening. Flolan initiated. Saturations improved. Afebrile. Remains on Nimbex drip. 10/27: T max 99.7. Tolerated on not prone position 2 hours yesterday. Tolerating trickle feeds. FiO2 down to 55% 10/28: Tmax 99.9. When unprone for chest x-ray this a.m. desaturated. Currently on 90% FiO2. Actually hypertensive. No bowel movements. Remains paralyzed 10/29: Remains intubated sedated on continuous Prone therapy Except for chest x- ray. Fever 100.8. Panculture requested. Zyvox added. Continue IV sedation with propofol and fentanyl and Versed, neuromuscular paralysis with Nimbex 10/30: Prone cycle changed to 8 hr prone, 1 hr supine from 10/29. Due to hypoxia will continue with same cycle today. Chest x-ray remains unchanged. Patient remains severely hypoxemic FiO2 at 75% PEEP at 16. WBC count worsened to 18. Remains neuromuscularly paralyzed. 10/31: Patient remains critically ill but stable. Oxygen saturation 95% on 55 of FiO2 and PEEP of 16. Reduce PEEP to 14, FiO2 to 50% and start weaning Flolan. Increase supine time to 4 hours, reduce Prone time to 6 hours 11/01: Patient remains intubated sedated critically ill on neuromuscular paralysis. FiO2 reduced to 50, I will attempt PEEP wean gradually to 12 today. Prone/supine cycles will be changed to 6 hours each 11/02: FiO2 remains at 50%, PEEP reduced from 14 to 12 today, TV increased to 600 and RR to 20, in anticipation of discontinuing prone therapy, which will be DCd today. Off Flolan for 2 days 11/03: off pronation. fio2 up to 65% , peep 12. agitation causing desaturation. minimal improvements. 11/04: good diuresis yesterday, but despite that, fio2 persists at 65% and spo2 decreasing to 91% today. no real improvements and some worsening of pulmonary function despite ongoing aggressive therapies. still not safe for SBT given hypoxia. also severely hypertensive this morning. 11/05: continues to diurese well and Cr still at baseline. fio2 at 90% however, and no clinical improvements in mental status or hypoxia. still unsafe for SBT given hypoxemia. off pathway. hypertension under much better control. poor neuro status is concerning. 11/06: Remains severely hypoxemic. FiO2 was 100% PEEP 14. I reduce FiO2 to 90% after increasing PEEP to 16. Developed a flutter with RVR overnight, currently on Cardizem drip. Unable to do SBT due to very high settings 11/07: Remains hypoxemic and but able to wean FiO2 down to 80% with PEEP of 16. Remains unresponsive on sedation. Unable to trach due to his high vent settings and high FiO2. Remains on Cardizem and 15 mg per hour, with rate controlled a flutter. We'll start by mouth Cardizem in an attempt to wean IV Cardizem 11/08: Remains critically ill hypoxic but FiO2 now weaned to 60%, PEEP remains at 16. Very heavily sedated no withdrawal to pain. Will hold all continuos sedation. Sputum culture with Klebsiella sensitive to Rocephin. A flutter persistent, will start IV heparin 11/09 Patient is sedated with Diprivan and intubated, On Cardizem drip 15mg/hr for Aflutter. Heparin drip stated yesterday. 11/10 Patient remains sedated and intubated. On Heparin drip. Persistent fever with Tmax 102.5. ETT was replaced yesterday. 11/11 Patient was placed on Cardizem and amio drips overnight for Afib with RVR. Sedated with Diprivan and intubated. On Heparin drip. T;99.3 this morning. 11/12 Patient remains intubated and sedated with Diprivan. On Cardizem drip 15mg/ hr. Afebrile, Tmax 100.6 11/13 Patient is sedate with Diprivan and intubated. In Afib with RVR now on Amio drip. Tmax 100,4 11/14 Remains intubated sedated with propofol and fentanyl. Afib rate controlled , remains on amiodarone and Cardizem gtt. Fio2 remains high at 70%, PEEP 12. CXR persistent bibasilar infiltrates/effusion 11/15: Currently sedated with propofol and fentanyl drips. Currently in A. fib/ flutter on amiodarone drip and Cardizem drip. PEEP increased to 14. FiO2 65. 11/16: Tmax 100.1. Patient more alert and tachycardic this AM. Adding midazolam gtt for sedation and currently tolerating tube feeding. Positive BM. PEEP to 12. FiO2 75% 11/17: Afebrile. FiO2 down to 60%. PEEP set 12. Multiple tracheostomy hopefully on Saturday. Heart rate better control. 11/18: Afebrile. Discontinuing amiodarone drip today and switching to oral. FiO2 between 60 and 70%. Restarting epoprostenol in attempt to get FiO2 down to 50% for tracheostomy tomorrow 11/19 No events overnight. Sedated with Diprivan, Fentanyl and versed. Still requiring high O2 - on PRVC with PEEP;12 and FIO2 70%. Afebrile. 11/20 Patient remains sedated with Diprivan, versed, Fentanyl and intubated. On PRVC with PEEP: 12, FIO2 50% , sats 88-90%. On Heparin drip. Subjective 11/21: Tmax 99.4. Tolerating tube feeds. Remains on heparin drip. FiO2 down to 55%. PEEP of 10. Eyes open blinks spontaneously. Does squeeze and weakly on left side with encouragement 11/22: Intubated heavily sedated. FiO2 50%, remains on Flolan. PEEP 10. Bumex 1 mg 1 and Diamox 500 mg 1 IV. She will negative balance. Heparinized tube feeds on hold for tracheostomy today at 12. Remains in atrial flutter 11/23 Patient remains sedated with Diprivan, Fentanyl, Versed and intubated. On Heparin drip. For CT guided thoracentesis today. On APRV Objective Vital Signs Date Time Temp Pulse Resp B/P (MAP) Pulse Ox O2 Delivery O2 Flow Rate FiO2 11/23/16 06:00 72 11/23/16 04:00 55 11/23/16 04:00 98.7 22 138/76 (96) 94 11/19/16 16:09 Ventilator Intake and Output 11/23/16 11/23/16 11/24/16 08:00 16:00 00:00 Intake Total 1301 ml Output Total 750 ml Balance 551 ml Result Diagram: 11/23/16 0415 11/22/16 0355 Other Results Laboratory Tests Test 11/22/16 16:19 11/23/16 01:00 11/23/16 04:15 Blood Gas Puncture Site LT RADIAL Blood Gas Patient Temperature 98.6 Blood Gas HCO3 29 mmol/L Blood Gas Base Excess 4.6 mmol/L Blood Gas Oxygen Saturation 95 % Arterial Blood pH 7.42 Arterial Blood Partial Pressure CO2 46 mmHg Arterial Blood Partial Pressure O2 96 mmHg Arterial Blood Oxygen Content 18.9 Vol % Arterial Blood Carboxyhemoglobin 1.3 % Arterial Blood Methemoglobin 1.1 % Blood Gas Hemoglobin 14.1 G/DL Oxygen Delivery Device VENTILATOR Blood Gas Ventilator Setting Blood Gas Inspired Oxygen 70 % Activated Partial Thromboplast Time 30.7 SEC White Blood Count 17.1 TH/MM3 Red Blood Count 4.33 MIL/MM3 Hemoglobin 13.5 GM/DL Hematocrit 41.3 % Mean Corpuscular Volume 95.5 FL Mean Corpuscular Hemoglobin 31.1 PG Mean Corpuscular Hemoglobin Concent 32.6 % Red Cell Distribution Width 14.6 % Platelet Count 167 TH/MM3 Mean Platelet Volume 9.0 FL Imaging Last Impressions Chest X-Ray 11/22/16 0600 Signed Impressions: Service Date/Time: October 05:01 - CONCLUSION: 1. Support apparatus in good position. Basilar lung consolidation and small effusions. Cristofer De Santiago MD Lower Extremity Ultrasound 11/09/16 0000 Signed Impressions: Service Date/Time: Wednesday, November 09, 2016 14:13 - CONCLUSION: Normal examination. Jayson Manning MD Liver Ultrasound 11/09/16 0000 Signed Impressions: Service Date/Time: Wednesday, November 09, 2016 13:58 - CONCLUSION: Sono dense liver without duct dilatation. 4 mm common duct. Ward Kim MD FACR Chest CT 11/06/16 0000 Signed Impressions: Service Date/Time: Sunday, November 06, 2016 11:24 - CONCLUSION: 1. Dense bilateral posterior lower lobe airspace consolidation consistent with aspiration versus less likely pneumonia. 2. Linear consolidation in the right middle lobe consistent with atelectasis versus aspiration. 3. Trace left and small right pleural effusions. 4. Support lines and tubes in good position. 5. Prominent coronary artery calcifications. Nico Vaughan MD Head CT 11/05/16 0000 Signed Impressions: Service Date/Time: Saturday, November 05, 2016 21:43 - CONCLUSION: 1. No acute intracranial abnormalities. Pansinus fluid opacification. Cristofer De Santiago MD Abdomen X-Ray 10/29/16 0600 Signed Impressions: Service Date/Time: Saturday, October 29, 2016 04:41 - CONCLUSION: Nonspecific , nonobstructive bowel gas pattern. No evidence of free air. Jayson Taylor MD Carotid Artery Ultrasound 10/25/16 0000 Signed Impressions: Service Date/Time: September 08:27 - CONCLUSION: Mild to moderate plaque in both carotid systems with less than 40%% diameter stenosis by velocity criteria. Jhonathan Dietz MD CT Angiography 10/25/16 0000 Signed Impressions: Service Date/Time: September 06:12 - CONCLUSION: 1. Negative for pulmonary embolism. 2. There is a fairly large area of masslike consolidation in the medial right lung involving posterior segment right upper lobe and medial aspect of right lower lobe. There is associated right hilar and mediastinal adenopathy measuring up to 2.1 cm. Differential diagnosis includes pneumonia or underlying lung neoplasm. Close followup imaging recommended after treatment for pneumonia, to assess for underlying mass. Cristofer De Santiago MD Objective Remarks GENERAL: 56-year-old male, critically ill orotracheally intubated, heavily sedated SKIN: Warm and dry. Positive intertrigo HEAD: Atraumatic. Normocephalic. EYES: Pupils equal and round about 3 mm bilaterally and reactive. No scleral icterus. No injection or drainage. ENT: No nasal bleeding or discharge. Orotracheally intubated NECK: Trachea midline. No JVD. CARDIOVASCULAR: Atrial fibrillation rate controlled, IR. S1, S2 no S4. Diminished heart sounds. Without murmur, clicks, or rubs RESPIRATORY: Bilateral wheezes and rhonchi appreciated. Diminished. GASTROINTESTINAL: Abdomen soft, obese. Hypoactive bowel sounds appreciated MUSCULOSKELETAL: Extremities with trace lower extremity bilateral edema. No obvious deformities. NEUROLOGICAL: Withdraws to pain. Opens eyes intermittently. Positive gag. Positive corneal reflex. (Weakly follows commands by squeezing hands left greater than right side to Dr. Story 11/21/16 on sedation vacation) Date of Insertion: Nov 16, 2016 Line: PICC Side: Left Location: Antecubital A/P Assessment and Plan Neuro/Psych: CIM/SHEFALI s/p Neuromuscular paralysis for Prone therapy Agitated Delirium, Metabolic Encephalopathy Syncope On propofol,, Fentanyl and Versed for sedation and vent synchrony. Goal of RASS -2 ,Daily sedation vacation Neuro is following-Dr. Rdz recommended MRI brain once stable prn hydromorphone for breakthrough. Haloperidol 5mg iv q4h prn for agitation. Brain CT on admission revealed no acute intracranial findings, CT brain 11/05- no acute findings. opacification of sinuses. Carotid ultrasound less than 50% stenosis bilaterally EEG 11/20: No seizure activity. EEG 11/09: severe encephalopathy PT/OT for range of motion CV: Atrial fib/ flutter with RVR Hypertension- On Amiodarone 400mg Q12, Digoxin 0.125 mg daily(Dig. level 0.8 on 11/22) PO Cardizem 90 mg PO q6hr, Lopressor 50mg Q6, Clonidine 0.2mg Q8 and Isordil 10 mg 3 times a day for hypertension IV heparin for anticoagulation Repeat echo with bubble study: 11/22: No shunt seen Echo 10/25 EF 60-65% Resp: Acute hypoxemic Respiratory failure - severe and persistent. Severe ARDS COPD exacerbation Pneumonia most likely community-acquired Obesity hypoventilation syndrome Tobacco use disorder Continue with vent support keep sat >92% For CT guided thoracentesis today CT pulmonary angio revealed no pulmonary embolus. Masslike consolidation in the posterior right upper lobe and medial right lower lobe. Lymphadenopathy to 1 cm right hilum and subcarinal. Atelectasis left lower lobe. Change vent setting: PRVC 16, TV 700, IT:1.3, PEEP:10, FIO2 50% to keep Saturation >88%. Intubated 10/25. Check ABG Discontinued Prone therapy 11/02/16. Epoprostenol restarted 11/18 50,000 ng/ml 8 ml/hr nebs Albuterol/ipratropium every 4 hours with albuterol every 2 hours when necessary dyspnea. Ventilator bundle, Budesonide 0.5 mg aerosols twice a day. Methylprednisolone 40 mg IV daily Pulmonary/Dr. Wynne following GI: Morbid Obesity Elevated LFT's Monitor LFT, US liver: No ductal dilatation Continue tube feeds-Vital high protein 1.5 currently at 30ml/hr Famotidine 20 milligrams mg twice a day for GI prophylaxis /renal: Monitor renal function, I/O's, electrolytes replacement per protocol. Diurese with Bumex 1mg x1 Endo: Hyperglycemia- SSI Q4 for glycemic control. . Heme: Normocytic anemia Monitor CBC, coags- patient is on heparin drip. ID: Severe sepsis Pneumonia s/p ceftriaxone 11/02-11/09 for Enterobacter pneumonia. Repeat sputum Klebsiella sensitive to Rocephin 10/29/16-Enterobacter in sputum, 11/06/16, 11/10 sputum- Klebsiella Urine Legionella and pneumococcal antigens negative and influenza negative Follow up on BC from 11/08, Santiago replaced 11/09. C-diff PCR is negative Off abx per ID s/p (ceftriaxone and Diflucan course). ID is following-Dr. Amanda MARK PICC placed 11/05 through 11/15 replaced 11/16 with left upper extremity PICC Prophylaxis - GI, famotidine - DVT - IV heparin gtt 11/09 Doppler US LE negative for DVT Critical Care: The total critical care time was 30 minutes. Time to perform other separately billable procedures was not included in the critical care time. Chepe Carney MD Nov 23, 2016 07:26
[2016-11-23] MEDS: RESP: BUDESONIDE 0.5 MG/2 ML NEB NEB SCH ×2 (07:59→19:54)
[2016-11-23] MEDS: CHLORHEXIDINE 0.12% (ORAL KIT) 15 ML CUP MT SCH ×2 (08:00→19:06)
--- NOTE | 2016-11-23 08:07 | HHI.PR ---
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 - Critical illness polyneuropathy Status: Acute Plan: aggressive nutritional support (4) Morbid obesity ICD Codes: E66.01 - Morbid (severe) obesity due to excess calories Status: Chronic Subjective Subjective Comments resp issues Active Medications Current Medications Medications (Trade) Dose Ordered Sig/Audelia Route Start Time Stop Time Status Last Admin (NS Flush) 2 ml UNSCH PRN .XX 10/25/16 05:30 11/09/16 23:57 (NS Flush) 2 ml BID .XX 10/25/16 09:00 11/22/16 20:10 (Tylenol) 650 mg Q6H PRN PO 10/25/16 05:30 11/12/16 12:02 (Zofran Inj) 4 mg Q6H PRN IV 10/25/16 05:30 Miscellaneous Information 1 Q361D XX 10/25/16 05:30 10/25/16 21:10 (Chlorhexidine 2% Cloth) Taper DAILY@04 TOP 10/26/16 04:00 10/22/17 03:59 11/18/16 04:00 (Chlorhexidine 2% Cloth) 3 pack UNSCH PRN TOP 10/25/16 05:30 (Milk Of Magnesia Liq) 30 ml Q12H PRN PO 10/25/16 05:30 10/26/16 20:52 (Senokot) 17.2 mg Q12H PRN PO 10/25/16 05:30 (Dulcolax Supp) 10 mg DAILY PRN RECTAL 10/25/16 05:30 (Lactulose Liq) 30 ml DAILY PRN PO 10/25/16 05:30 (Albuterol Neb) 2.5 mg Q2HR NEB PRN NEB 10/25/16 14:00 11/22/16 03:15 (Pulmicort Respule Neb) 0.5 mg Q12HR NEB NEB 10/25/16 20:00 11/23/16 07:59 (Peridex 0.12% Liq) 15 ml BID@08,20 MT 10/25/16 20:00 11/22/16 20:09 (NS Flush) DAILY IVF 10/26/16 09:00 11/22/16 08:02 (NS Flush) UNSCH PRN IVF 10/25/16 16:45 11/04/16 08:33 Propofol 100 ml @ 4.695 mls/ hr TITRATE PRN IV 10/26/16 08:30 11/23/16 06:40 (Lacrilube Opht Oint) 1 applic Q12HR EACH EYE 10/26/16 10:00 11/22/16 20:10 (Isordil) 10 mg Q8HR PO 10/28/16 14:00 11/23/16 05:27 (Haldol Inj) 5 mg Q4H PRN IV PUSH 11/03/16 13:00 (Trandate Inj) 20 mg Q15M PRN IV PUSH 11/03/16 13:00 11/08/16 10:50 Potassium Chloride 100 ml @ 50 mls/hr Q2H PRN IV 11/05/16 04:45 11/06/16 08:52 Potassium Chloride 100 ml @ 50 mls/hr Q2H PRN IV 11/05/16 04:45 11/11/16 13:00 (K-Lyte Cl Eff) 50 meq UNSCH PRN PO 11/05/16 04:45 Potassium Chloride 100 ml @ 25 mls/hr UNSCH PRN IV 11/05/16 04:45 11/10/16 05:42 Potassium Chloride 100 ml @ 50 mls/hr Q2H PRN IV 11/05/16 04:45 Magnesium Sulfate 4 gm/Sodium Chloride 100 ml @ 50 mls/hr UNSCH PRN IV 11/05/16 04:45 (Mag-Ox) 800 mg UNSCH PRN PO 11/05/16 04:45 Magnesium Sulfate 2 gm/Sodium Chloride 100 ml @ 50 mls/hr UNSCH PRN IV 11/05/16 04:45 (K-Phos) 2,000 mg Q4H PRN PO 11/05/16 04:45 Sodium Phosphate 30 mmol/Sodium Chloride 250 ml @ 42 mls/hr UNSCH PRN IV 11/05/16 04:45 (K-Phos) 2,000 mg UNSCH PRN PO/TUBE 11/05/16 04:45 Potassium Phosphate 30 mmol/ Sodium Chloride 260 ml @ 42 mls/hr UNSCH PRN IV 11/05/16 04:45 (SoluMEDROL INJ) 40 mg DAILY IV 11/09/16 09:00 11/22/16 07:55 Fentanyl Citrate 250 ml @ 5 mls/hr TITRATE PRN IV 11/13/16 14:00 11/23/16 01:36 (Apresoline Inj) 10 mg Q1HR PRN IV PUSH 11/15/16 16:15 (Nitroglycerin 2% Oint) 2 inch Q6HR PRN TOPICAL 11/15/16 16:15 (Trandate Inj) 10 mg Q1HR PRN IV PUSH 11/15/16 16:15 11/21/16 11:39 (Cardizem) 90 mg Q6HR PO 11/15/16 18:00 11/23/16 06:10 Midazolam HCl 100 ml @ 2 mls/hr TITRATE PRN IV 11/16/16 12:15 11/22/16 05:52 (Lopressor) 50 mg Q6HR PO 11/16/16 18:00 11/23/16 05:27 (Pepcid) 20 mg BID NG 11/16/16 21:00 11/22/16 20:10 (NS Flush) See Protocol DAILY IV FLUSH 11/17/16 09:00 11/22/16 07:58 (NS Flush) See Protocol UNSCH PRN IV FLUSH 11/16/16 14:30 (Heparin Central Flush) See Protocol DAILY IV FLUSH 11/17/16 09:00 11/20/16 07:53 (Heparin Central Flush) See Protocol UNSCH PRN IV FLUSH 11/16/16 14:30 (NS Flush) UNSCH PRN IV FLUSH 11/16/16 14:30 (Cordarone) 400 mg Q12HR OG-TUBE 11/18/16 09:00 11/22/16 20:10 Epoprostenol Sodium 87.5 ml/ Sodium Chloride 100 ml @ 8 mls/hr Q8H NEB 11/18/16 09:00 11/23/16 07:26 (Lanoxin) 0.125 mg DAILY PO 11/19/16 09:00 11/22/16 07:57 (Levemir Inj) 62 units Q12H SQ 11/18/16 13:00 Future Hold 11/18/16 13:00 (Catapres) 0.2 mg Q8HR OG-TUBE 11/18/16 22:00 11/23/16 06:10 (D50w (Vial) Inj) 50 ml UNSCH PRN IV PUSH 11/20/16 07:45 (Glucagon Inj) 1 mg UNSCH PRN OTHER 11/20/16 07:45 (NovoLIN R SUPPLEMENTAL SCALE) 1 Q4HR SQ 11/20/16 08:00 11/23/16 04:26 (Duoneb Neb) 1 ampule Q4HR NEB NEB 11/22/16 08:00 11/23/16 07:59 Heparin Sodium/ Dextrose 250 ml @ 10 mls/hr TITRATE IV 11/22/16 17:45 11/22/16 18:58 (Heparin Inj) 5,000 units UNSCH PRN IV PUSH 11/22/16 17:45 (Heparin Inj) 2,500 units UNSCH PRN IV PUSH 11/22/16 17:45 11/23/16 01:45 Allergies Allergies Coded Allergies No Known Allergies (Unverified10/25/16) Review of Systems All other ROS: Unable to obtain Exam I&O / VS Vital Signs Date Time Temp Pulse Resp B/P (MAP) Pulse Ox O2 Delivery O2 Flow Rate FiO2 11/23/16 07:51 92 55 11/23/16 06:00 72 11/23/16 04:00 72 11/23/16 04:00 55 11/23/16 04:00 98.7 72 22 138/76 (96) 94 11/23/16 03:28 94 55 11/23/16 02:00 73 11/23/16 00:00 55 11/23/16 00:00 98.2 73 21 121/72 (88) 96 11/23/16 00:00 73 11/22/16 23:32 95 55 11/22/16 22:00 72 11/22/16 20:00 55 11/22/16 20:00 97.6 71 20 170/78 (108) 95 11/22/16 20:00 71 11/22/16 19:40 95 55 11/22/16 18:00 74 11/22/16 16:00 99.6 73 31 127/72 (90) 92 11/22/16 16:00 73 11/22/16 16:00 70 11/22/16 15:50 97 70 11/22/16 14:00 73 11/22/16 12:40 90 11/22/16 12:30 92 90 11/22/16 12:00 99.3 98 23 138/85 (102) 94 11/22/16 12:00 98 11/22/16 10:00 77 11/22/16 08:15 94 70 Exam Comments intubated, morbidly obese. on multiple sedative gtt's, coma state, not following , not verbal, not pinto, no clonus, planter flexor Objective Micro and Labs Laboratory Tests Test 11/22/16 16:19 11/23/16 01:00 11/23/16 04:15 Blood Gas Puncture Site LT RADIAL Blood Gas Patient Temperature 98.6 Blood Gas HCO3 29 Blood Gas Base Excess 4.6 Blood Gas Oxygen Saturation 95 Arterial Blood pH 7.42 Arterial Blood Partial Pressure CO2 46 Arterial Blood Partial Pressure O2 96 Arterial Blood Oxygen Content 18.9 Arterial Blood Carboxyhemoglobin 1.3 Arterial Blood Methemoglobin 1.1 Blood Gas Hemoglobin 14.1 Oxygen Delivery Device VENTILATOR Blood Gas Ventilator Setting Blood Gas Inspired Oxygen 70 Activated Partial Thromboplast Time 30.7 White Blood Count 17.1 Red Blood Count 4.33 Hemoglobin 13.5 Hematocrit 41.3 Mean Corpuscular Volume 95.5 Mean Corpuscular Hemoglobin 31.1 Mean Corpuscular Hemoglobin Concent 32.6 Red Cell Distribution Width 14.6 Platelet Count 167 Mean Platelet Volume 9.0 Date/Time Source Procedure Growth Status 11/10/16 11:40 Blood Peripheral Aerobic Blood Culture - Final NO GROWTH IN 5 DAYS Complete 11/10/16 11:40 Blood Peripheral Anaerobic Blood Culture - Final NO GROWTH IN 5 DAYS Complete 11/08/16 14:15 Stool Stool Stool Occult Blood (TYLER) - Final HEMOCCULT NEGATIVE Complete 11/10/16 05:45 Sputum Endotracheal Gram Stain - Final Complete 11/10/16 05:45 Sputum Culture - Final Klebsiella Pneumoniae Complete 11/11/16 01:15 Urine Catheterized Urine Urine Culture - Final Ana Albicans Complete Anish Riggins MD Nov 23, 2016 08:07
[2016-11-23] MEDS: methylPREDNISolone SOD SUCC 40 MG/1 ML VIAL IV SCH (08:54)
[2016-11-23] MEDS: SODIUM CHLORIDE 0.9% FLUSH 10 ML FLUSH SCH ×2 (08:56→19:07)
[2016-11-23] MEDS: AMIODARONE 200 MG TAB OG-TUBE SCH ×2 (08:56→19:57)
[2016-11-23] MEDS: DIGOXIN 0.125 MG TAB PO SCH (08:56)
[2016-11-23] MEDS: FAMOTIDINE 20 MG TAB NG SCH ×2 (08:56→19:57)
[2016-11-23] MEDS: ARTIFICIAL TEARS OPTH OINT 3.5 APPLIC/3.5 GM TUBO EACH EYE SCH ×2 (08:57→19:07)
[2016-11-23] MEDS: SODIUM CHLORIDE 0.9% FLUSH 10 ML FLUSH IVF SCH (09:00)
[2016-11-23] MEDS: SODIUM CHLORIDE 0.9% FLUSH 10 ML FLUSH IV FLUSH SCH (09:00)
[2016-11-23 09:02] LABS: APTT (PATIENT) 29.5 SEC (24.3-30.1)
[2016-11-23 09:19] LABS: BLOOD GAS BASE EXCESS 6.8 mmol/L (-2-2); BLOOD GAS CARBOXYHEMOGLOBIN 1.5 % (0-4); BLOOD GAS HCO3 31 mmol/L (22-26); BLOOD GAS METHEMOGLOBIN 1.1 % (0-2); BLOOD GAS O2 HGB SATURATION 85 % (90-100); BLOOD GAS OXYGEN CONTENT 16.7 Vol % (12.0-20.0); BLOOD GAS PCO2 45 mmHg (38-42); BLOOD GAS PO2 54 mmHg (61-120)
[2016-11-23 09:20] LABS: CRITICAL VALUE YES; DRAW SITE LT RADIAL; NUMBER OF ARTERIAL PUNCTURES 2; OXYGEN DEVICE VENTILATOR; STAT NO; TEMP CORR TO 55; ULNAR PULSE Y; VENT SETTINGS PRVC/AC
--- NOTE | 2016-11-23 11:14 | RADRPT ---
EXAM DATE/TIME: 11/23/2016 10:38 [facility] COMPARISON: CHEST SINGLE AP, November 22, 2016, 10:26. INDICATIONS : Short of breath. MEDICAL HISTORY : Chronic obstructive pulmonary disease. Hypertension Hypercholesterolemia. renal stones SURGICAL HISTORY : None. ENCOUNTER: Initial ACUITY: 1 month PAIN SCORE: Non-responsive. LOCATION: Bilateral chest FINDINGS: There is enlarged pneumothorax on the right. Left lung is compressed. ET tube in good position. CONCLUSION: Large right pneumothorax. Ward Kim MD FACR on November 23, 2016 at 11:09 Board Certified Radiologist. This report was verified electronically.
[2016-11-23] MEDS ORDERED: LIDOCAINE HCL 1% 50 ML VIAL ONE (11:26)
--- NOTE | 2016-11-23 12:15 | RADRPT ---
EXAM DATE/TIME: 11/23/2016 11:49 [facility] COMPARISON: CHEST SINGLE AP, November 23, 2016, 10:38. INDICATIONS : Post right chest tube insertion. MEDICAL HISTORY : Chronic obstructive pulmonary disease. Hypertension.Hypercholesterolemia. Renal stones. SURGICAL HISTORY : None. ENCOUNTER: Subsequent ACUITY: 1 day PAIN SCORE: Non-responsive. LOCATION: Right chest FINDINGS: The exam demonstrates interval insertion of a chest tube on the right with near complete resolution o f the pneumothorax. There is a left subclavian central venous catheter. The catheter tip is in the distal SVC. The endotracheal tube and NG tube are stable in position. There are consolidative changes in the right middle lobe. There is diffuse interstitial prominence in both lungs suggesting some degree of interstitial edema. CONCLUSION: 1. Near-complete reexpansion of the right lung following chest tube insertion. Román Kim MD on November 23, 2016 at 12:13 Board Certified Radiologist. This report was verified electronically.
[2016-11-23] MEDS ORDERED: LIDOCAINE HCL 1% PF 5 ML AMPULE OTHER ONE (13:02)
[2016-11-23] MEDS ORDERED: ONDANSETRON HCL 4 MG/2 ML VIAL IV PUSH ONE (13:02)
[2016-11-23] MEDS ORDERED: ROCURONIUM INJ 50 MG/5 ML SYRINGE IV PUSH ONE (13:02)
[2016-11-23] MEDS ORDERED: PHENYLEPH/NS 1000 MCG/10 ML SYR IV ONE (13:02)
[2016-11-23] MEDS ORDERED: PROPOFOL 200 MG/20 ML AMP IV ONE (13:02)
[2016-11-23] MEDS ORDERED: MIDAZOLAM HCL 2 MG/2 ML VIAL IV ONE (13:02)
[2016-11-23] MEDS ORDERED: KETOROLAC TROMETHAMINE 60 MG/2 ML (IM) VIAL IM ONE (13:02)
[2016-11-23] MEDS ORDERED: DEXAMETHASONE SOD PHOS 4 MG/ML VIAL IV ONE (13:02)
[2016-11-23] MEDS ORDERED: SODIUM CHLORIDE 0.9% 20 ML VIAL IV ONE (13:02)
[2016-11-23] MEDS: ACETAMINOPHEN 325 MG TAB PO PRN (13:20)
[2016-11-23] MEDS ORDERED: Vancomycin Consult Pharmacy 1 EA OTHER SCH (15:15)
[2016-11-23] MEDS ORDERED: VANCOMYCIN INJ 1,000 MG in SODIUM CHLOR 0.9% 250 ML INJ 250 ML IV SCH (15:15)
[2016-11-23 15:37] LABS: BLOOD, URINE TRACE (NEG); GLUCOSE,URINE NEG (NEG); KETONE, URINE NEG (NEG); MUCUS URINE FEW /lpf (OCC); NITRITE,URINE NEG (NEG); PH, URINE 5.5 (5.0-8.5); URINE COLOR YELLOW (YELLW/STRAW)
[2016-11-23 15:40] LABS: COMMENT (UR) CATH-CULT NOT IND; CULTURE IF INDICATED CATH CULTURE NOT IND
--- NOTE | 2016-11-23 15:45 | PD.CONS ---
Consult Service Palliative Care . Consult Requested By Dr. Colin . Primary Care Physician No Primary Care Physician . Reason for Consultation a. To assist with evaluation and management of symptoms including: pain, dyspnea, encephalopathy. b. To assist medical decision maker(s) with: better understanding of current medical conditions; weighing benefits/burdens of medical treatment options; making medical treatment decisions. . HPI History of Present Illness Mr. Andrews is a 56-year-old male with past medical history of COPD, hyperlipidemia, hypertension, sleep apnea and remote history of kidney stones. Patient presented to [facility] emergency department on 10/25/16 with shortness of breath, nausea, generalized fatigue and chills for 2 days prior to presentation. He also reported he passed out 2 days prior while sitting in chair taking his shoes off. No prior history of syncope. He denied and any other associated symptoms. Upon arrival to the emergency department oxygen saturation was in the mid 80s with auditory wheezing and tachypnea. It was placed on oxygen via nasal cannula 4 L to maintain saturation in the low 90's. He was tachycardic, rate 120-130s with PVCs. Initial evaluation revealed: ABG on 4L NC with pCO2 retention at 56, pH 7.37 ( normal), O2 sat 88%. Leukocytosis 18.4. Lactic acid 0.8 (normal). Troponin mildly elevated at 0.06. BNP 168. Chest xray no focal infiltrate or effusion, questionable vascular congestion pattern this changed to consolidation medial right lung after CT scan. CTA chest negative for pulmonary embolism, fairly large area of masslike consolidation in the medial right lung involving posterior segment right upper lobe in medial aspect of right lower lobe, associated right hilar and mediastinal adenopathy measuring up to 2.1 cm initial diagnosis of pneumonia versus underlying neoplasm. CT brain negative. Patient with continued hypoxia, saturations 87% was started on BiPAP. Patient was admitted to ICU with respiratory failure, COPD exacerbation, obesity hypoventilation syndrome and possible pneumonia. Patient was later intubated for increasing oxygen requirements and altered mental status. Pulmonology, Dr. Ward Wynne was consulted. Infectious disease, Dr. Patel was consulted for pneumonia and ARDS. Hospital course has been complicated by ARDS, continued high oxygen/ pressure support needs and hypotension. On 10/25/16 night patient was placed on rotoprone bed, Flolan and Nimbex was started. He developed Atrial Flutter. Sputum culture positive for Klebsiella pneumoniae. Urine positive jim albicans. Patient has been unable to be weaned from mechanical ventilation and has been too unstable for tracheostomy or PEG tube placement since admission. Pronation was stopped on 11/03/16. On 11/20/16, Dr. Riggins neurology was consulted for persistent encephalopathy. EEG showed severe encephalopathy. CT brain negative for acute intracranial abnormality. Carotid ultrasound less than 50% stenosis bilaterally. On 11/23/16, chest xray revealed large right pneumothorax. Dr. Colin placed right chest tube. Palliative care is consulted to assist with clarification of treatment goals in this patient with prolonged hospital course and worsening clinical condition per Dr. Colin. . 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 . Review of Systems ROS Limitations: Intubated (on mech vent), Altered Mental Status Constitutional: COMPLAINS OF: Fatigue, Generalized weakness Respiratory: COMPLAINS OF: Apneas, Shortness of breath Cardiovascular: COMPLAINS OF: Dyspnea on Exertion, Lower Extremity Edema Gastrointestinal: COMPLAINS OF: Diarrhea Hematologic/Lymphatics: COMPLAINS OF: Bruising Other ROS: ROS per EMR review, no family at bedside, pt incapacitated. Past Family Social History Coded Allergies: No Known Allergies (Unverified , 10/25/16) Past Medical History COPD Hypertension Hyperlipidemia Sleep apnea Remote history of kidney stones (> 15 years ago) . Past Surgical History None reported. Reported Medications Reported Meds & Active Scripts Active Reported Lisinopril 20 Mg Tab 20 Mg PO HS Amlodipine (Amlodipine Besylate) 5 Mg Tab 5 Mg PO HS . Current Medications Medications (Trade) Dose Ordered Sig/Audelia Route Start Time Stop Time Status Last Admin (NS Flush) 2 ml UNSCH PRN .XX 10/25/16 05:30 11/09/16 23:57 (NS Flush) 2 ml BID .XX 10/25/16 09:00 11/23/16 08:56 (Tylenol) 650 mg Q6H PRN PO 10/25/16 05:30 11/23/16 13:20 (Zofran Inj) 4 mg Q6H PRN IV 10/25/16 05:30 Miscellaneous Information 1 Q361D XX 10/25/16 05:30 10/25/16 21:10 (Chlorhexidine 2% Cloth) Taper DAILY@04 TOP 10/26/16 04:00 10/22/17 03:59 11/18/16 04:00 (Chlorhexidine 2% Cloth) 3 pack UNSCH PRN TOP 10/25/16 05:30 (Milk Of Magnesia Liq) 30 ml Q12H PRN PO 10/25/16 05:30 10/26/16 20:52 (Senokot) 17.2 mg Q12H PRN PO 10/25/16 05:30 (Dulcolax Supp) 10 mg DAILY PRN RECTAL 10/25/16 05:30 (Lactulose Liq) 30 ml DAILY PRN PO 10/25/16 05:30 (Pulmicort Respule Neb) 0.5 mg Q12HR NEB NEB 10/25/16 20:00 11/23/16 07:59 (Peridex 0.12% Liq) 15 ml BID@08,20 MT 10/25/16 20:00 11/23/16 08:00 (NS Flush) DAILY IVF 10/26/16 09:00 11/23/16 09:00 (NS Flush) UNSCH PRN IVF 10/25/16 16:45 11/04/16 08:33 Propofol 100 ml @ 4.695 mls/ hr TITRATE PRN IV 10/26/16 08:30 11/23/16 13:24 (Lacrilube Opht Oint) 1 applic Q12HR EACH EYE 10/26/16 10:00 11/23/16 08:57 (Isordil) 10 mg Q8HR PO 10/28/16 14:00 11/23/16 05:27 (Haldol Inj) 5 mg Q4H PRN IV PUSH 11/03/16 13:00 (Trandate Inj) 20 mg Q15M PRN IV PUSH 11/03/16 13:00 11/08/16 10:50 Potassium Chloride 100 ml @ 50 mls/hr Q2H PRN IV 11/05/16 04:45 11/06/16 08:52 Potassium Chloride 100 ml @ 50 mls/hr Q2H PRN IV 11/05/16 04:45 11/11/16 13:00 (K-Lyte Cl Eff) 50 meq UNSCH PRN PO 11/05/16 04:45 Potassium Chloride 100 ml @ 25 mls/hr UNSCH PRN IV 11/05/16 04:45 11/10/16 05:42 Potassium Chloride 100 ml @ 50 mls/hr Q2H PRN IV 11/05/16 04:45 Magnesium Sulfate 4 gm/Sodium Chloride 100 ml @ 50 mls/hr UNSCH PRN IV 11/05/16 04:45 (Mag-Ox) 800 mg UNSCH PRN PO 11/05/16 04:45 Magnesium Sulfate 2 gm/Sodium Chloride 100 ml @ 50 mls/hr UNSCH PRN IV 11/05/16 04:45 (K-Phos) 2,000 mg Q4H PRN PO 11/05/16 04:45 Sodium Phosphate 30 mmol/Sodium Chloride 250 ml @ 42 mls/hr UNSCH PRN IV 11/05/16 04:45 (K-Phos) 2,000 mg UNSCH PRN PO/TUBE 11/05/16 04:45 Potassium Phosphate 30 mmol/ Sodium Chloride 260 ml @ 42 mls/hr UNSCH PRN IV 11/05/16 04:45 (SoluMEDROL INJ) 40 mg DAILY IV 11/09/16 09:00 11/23/16 08:54 Fentanyl Citrate 250 ml @ 5 mls/hr TITRATE PRN IV 11/13/16 14:00 11/23/16 13:24 (Apresoline Inj) 10 mg Q1HR PRN IV PUSH 11/15/16 16:15 (Nitroglycerin 2% Oint) 2 inch Q6HR PRN TOPICAL 11/15/16 16:15 (Trandate Inj) 10 mg Q1HR PRN IV PUSH 11/15/16 16:15 11/21/16 11:39 (Cardizem) 90 mg Q6HR PO 11/15/16 18:00 11/23/16 13:20 Midazolam HCl 100 ml @ 2 mls/hr TITRATE PRN IV 11/16/16 12:15 11/22/16 05:52 (Lopressor) 50 mg Q6HR PO 11/16/16 18:00 11/23/16 13:21 (Pepcid) 20 mg BID NG 11/16/16 21:00 11/23/16 08:56 (NS Flush) See Protocol DAILY IV FLUSH 11/17/16 09:00 11/23/16 09:00 (NS Flush) See Protocol UNSCH PRN IV FLUSH 11/16/16 14:30 (Heparin Central Flush) See Protocol DAILY IV FLUSH 11/17/16 09:00 11/20/16 07:53 (Heparin Central Flush) See Protocol UNSCH PRN IV FLUSH 11/16/16 14:30 (NS Flush) UNSCH PRN IV FLUSH 11/16/16 14:30 (Cordarone) 400 mg Q12HR OG-TUBE 11/18/16 09:00 11/23/16 08:56 Epoprostenol Sodium 87.5 ml/ Sodium Chloride 100 ml @ 8 mls/hr Q8H NEB 11/18/16 09:00 11/23/16 07:26 (Lanoxin) 0.125 mg DAILY PO 11/19/16 09:00 11/23/16 08:56 (Levemir Inj) 62 units Q12H SQ 11/18/16 13:00 Future Hold 11/18/16 13:00 (Catapres) 0.2 mg Q8HR OG-TUBE 11/18/16 22:00 11/23/16 06:10 (D50w (Vial) Inj) 50 ml UNSCH PRN IV PUSH 11/20/16 07:45 (Glucagon Inj) 1 mg UNSCH PRN OTHER 11/20/16 07:45 (NovoLIN R SUPPLEMENTAL SCALE) 1 Q4HR SQ 11/20/16 08:00 11/23/16 12:00 (Duoneb Neb) 1 ampule Q4HR NEB NEB 11/22/16 08:00 11/23/16 10:15 Heparin Sodium/ Dextrose 250 ml @ 10 mls/hr TITRATE IV 11/22/16 17:45 11/22/16 18:58 (Heparin Inj) 5,000 units UNSCH PRN IV PUSH 11/22/16 17:45 (Heparin Inj) 2,500 units UNSCH PRN IV PUSH 11/22/16 17:45 11/23/16 09:39 (Duoneb Neb) 1 ampule Q2HR NEB PRN NEB 11/23/16 10:45 Family History No family history of early coronary artery disease or cancer. . Substance Use Tobacco: Smoked one pack per day. Alcohol: None. Prescription med abuse: None. Illicits: None. . Psychosocial History Single. Kelly. Lives with his son in [place]. Has 1 son (Drake) and 2 daughters (Krystyna and Ira). , Spiritual/Cultural Factors Unknown. . Living Will: Never completed Health Care Surrogate: Never completed Durable Power of Donor Center Technician: Never completed Health Care Surrogate(s): Patient is currently incapacitated, uncertain if he will regain capacity. Notes indicate he is single. Nurse reports he has 1 son and 1 daughter. This information is accurate, according to [place] statutes, health care proxy decision-making would fall to the majority of adult children. . Today's verbally stated goals: Patient is currently incapacitated, uncertain if he will regain capacity. Family/friends goals: Left message for sonDrake as he is the only family contact information for at this time. . Ethical and Legal Issues Patient is currently incapacitated, uncertain if he will regain capacity. Notes indicate he is single. Nurse reports he has 1 son and 1 daughter. This information is accurate, according to [place] statutes, health care proxy decision-making would fall to the majority of adult children. . Physical Exam Vital Signs Date Time Temp Pulse Resp B/P (MAP) Pulse Ox O2 Delivery O2 Flow Rate FiO2 11/23/16 13:30 74 16 159/71 (100) 92 11/23/16 13:15 74 16 153/75 (101) 91 11/23/16 13:00 100.9 74 16 147/71 (96) 89 11/23/16 12:45 73 16 168/81 (110) 89 11/23/16 12:30 73 16 149/76 (100) 86 11/23/16 12:16 71 25 159/76 (103) 88 11/23/16 12:14 88 100 11/23/16 12:00 71 19 133/66 (88) 84 11/23/16 11:45 71 17 151/71 (97) 86 11/23/16 11:30 72 22 143/72 (95) 86 11/23/16 11:15 71 16 132/74 (93) 86 11/23/16 11:00 71 16 137/75 (95) 86 11/23/16 10:45 71 29 134/75 (94) 87 11/23/16 10:30 72 16 134/69 (90) 87 11/23/16 10:15 71 16 129/67 (87) 84 11/23/16 10:00 70 17 134/64 (87) 87 11/23/16 09:45 71 16 144/71 (95) 87 11/23/16 09:30 71 16 158/76 (103) 87 11/23/16 09:15 73 16 148/67 (94) 86 11/23/16 09:00 72 15 142/69 (93) 86 11/23/16 08:45 77 16 160/76 (104) 86 11/23/16 08:30 84 16 153/86 (108) 86 11/23/16 08:15 72 11 138/84 (102) 89 11/23/16 08:03 93 50 11/23/16 08:00 98.9 72 14 132/84 (100) 92 11/23/16 07:51 92 55 11/23/16 06:00 72 11/23/16 04:00 72 11/23/16 04:00 55 11/23/16 04:00 98.7 72 22 138/76 (96) 94 11/23/16 03:28 94 55 11/23/16 02:00 73 11/23/16 00:00 55 11/23/16 00:00 98.2 73 21 121/72 (88) 96 11/23/16 00:00 73 11/22/16 23:32 95 55 11/22/16 22:00 72 11/22/16 20:00 55 11/22/16 20:00 97.6 71 20 170/78 (108) 95 11/22/16 20:00 71 11/22/16 19:40 95 55 11/22/16 18:00 74 11/22/16 16:00 99.6 73 31 127/72 (90) 92 11/22/16 16:00 73 11/22/16 16:00 70 11/22/16 15:50 97 70 11/23/16 11/24/16 19:00 07:00 Intake Total 100 ml Balance 100 ml Intake IV Total 100 ml Exam CONSTITUTIONAL/GENERAL: This is an overweight, critically ill patient, on mechanical ventilation. TUBES/LINES/DRAINS: ETT, OG, left upper PIC line, PIV left forearm, bilateral soft wrist restraints, Ashley Shield, Santiago catheter, SCDs, right chest tube. SKIN: No jaundice, rashes, or lesions. Ecchymoses on upper extremities. Abrasion / scab on right knee. Skin temperature appropriate. Not diaphoretic. HEAD: Atraumatic. Normocephalic. EYES: eyes open, blinks to threat. Does not appear to track. ENT: unable to assess hearing given clinical condition. Nose without bleeding or purulent drainage. Throat difficult to visualize secondary to tubes. NECK: Trachea midline. CARDIOVASCULAR: atrial flutter on monitor. No JVD. RESPIRATORY/CHEST: Mildly labored respiration on mech vent. FiO2 70%, PEEP 12, oxygen saturation 89%. Right chest tube. GASTROINTESTINAL: Abdomen soft, nondistended. No guarding. Bowel sounds present. Tolerating tube feeding. GENITOURINARY: Without palpable bladder distension. Santiago catheter in place. MUSCULOSKELETAL: Extremities with edema. LYMPHATICS: No palpable cervical or supraclavicular adenopathy. NEUROLOGICAL: Eyes open, does not appear to track. Blinks to threat. Does not follow simple commands for me. PSYCHIATRIC: Unable to assess due to clinical condition. . Diagnostic Tests Laboratory Laboratory Tests Test 11/21/16 05:15 11/22/16 03:55 11/22/16 16:19 11/23/16 01:00 White Blood Count 15.1 TH/MM3 (4.0-11.0) 16.3 TH/MM3 (4.0-11.0) Red Blood Count 4.39 MIL/MM3 (4.50-5.90) 4.18 MIL/MM3 (4.50-5.90) Hemoglobin 13.7 GM/DL (13.0-17.0) 13.2 GM/DL (13.0-17.0) Hematocrit 41.7 % (39.0-51.0) 39.6 % (39.0-51.0) Mean Corpuscular Volume 95.1 FL (80.0-100.0) 94.6 FL (80.0-100.0) Mean Corpuscular Hemoglobin 31.3 PG (27.0-34.0) 31.4 PG (27.0-34.0) Mean Corpuscular Hemoglobin Concent 32.9 % (32.0-36.0) 33.2 % (32.0-36.0) Red Cell Distribution Width 14.7 % (11.6-17.2) 14.6 % (11.6-17.2) Platelet Count 181 TH/MM3 (150-450) 174 TH/MM3 (150-450) Mean Platelet Volume 9.5 FL (7.0-11.0) 8.8 FL (7.0-11.0) Neutrophils (%) (Auto) 87.6 % (16.0-70.0) 88.3 % (16.0-70.0) Lymphocytes (%) (Auto) 6.3 % (9.0-44.0) 4.8 % (9.0-44.0) Monocytes (%) (Auto) 5.0 % (0.0-8.0) 6.3 % (0.0-8.0) Eosinophils (%) (Auto) 0.8 % (0.0-4.0) 0.2 % (0.0-4.0) Basophils (%) (Auto) 0.3 % (0.0-2.0) 0.4 % (0.0-2.0) Neutrophils # (Auto) 13.2 TH/MM3 (1.8-7.7) 14.4 TH/MM3 (1.8-7.7) Lymphocytes # (Auto) 0.9 TH/MM3 (1.0-4.8) 0.8 TH/MM3 (1.0-4.8) Monocytes # (Auto) 0.8 TH/MM3 (0-0.9) 1.0 TH/MM3 (0-0.9) Eosinophils # (Auto) 0.1 TH/MM3 (0-0.4) 0.0 TH/MM3 (0-0.4) Basophils # (Auto) 0.0 TH/MM3 (0-0.2) 0.1 TH/MM3 (0-0.2) CBC Comment AUTO DIFF AUTO DIFF Differential Total Cells Counted 100 Neutrophils % (Manual) 81 % (16-70) Band Neutrophils % 13 % (0-6) Lymphocytes % 4 % (9-44) Monocytes % 1 % (0-8) Eosinophils % 1 % (0-4) Neutrophils # (Manual) 14.2 TH/MM3 (1.8-7.7) Nucleated Red Blood Cells 1 /100 WBC (0-0) Differential Comment FINAL DIFF MANUAL AUTO DIFF CONFIRMED Activated Partial Thromboplast Time 62.2 SEC (24.3-30.1) 27.7 SEC (24.3-30.1) 30.7 SEC (24.3-30.1) Blood Urea Nitrogen 19 MG/DL (7-18) 14 MG/DL (7-18) Creatinine 0.38 MG/DL (0.60-1.30) 0.32 MG/DL (0.60-1.30) Random Glucose 148 MG/DL (74-106) 121 MG/DL (74-106) Total Protein 5.6 GM/DL (6.4-8.2) 5.6 GM/DL (6.4-8.2) Albumin 2.2 GM/DL (3.4-5.0) 2.1 GM/DL (3.4-5.0) Calcium Level 8.6 MG/DL (8.5-10.1) 8.5 MG/DL (8.5-10.1) Phosphorus Level 3.7 MG/DL (2.5-4.9) 3.5 MG/DL (2.5-4.9) Magnesium Level 2.1 MG/DL (1.5-2.5) 2.0 MG/DL (1.5-2.5) Alkaline Phosphatase 58 U/L (45-117) 55 U/L (45-117) Aspartate Amino Transf (AST/SGOT) 19 U/L (15-37) 12 U/L (15-37) Alanine Aminotransferase (ALT/SGPT) 76 U/L (12-78) 59 U/L (12-78) Total Bilirubin 0.4 MG/DL (0.2-1.0) 0.5 MG/DL (0.2-1.0) Sodium Level 137 MEQ/L (136-145) 137 MEQ/L (136-145) Potassium Level 4.5 MEQ/L (3.5-5.1) 4.5 MEQ/L (3.5-5.1) Chloride Level 98 MEQ/L (98-107) 97 MEQ/L (98-107) Carbon Dioxide Level 30.1 MEQ/L (21.0-32.0) 33.7 MEQ/L (21.0-32.0) Anion Gap 9 MEQ/L (5-15) 6 MEQ/L (5-15) Estimat Glomerular Filtration Rate 236 ML/MIN (>89) 288 ML/MIN (>89) Digoxin Level 0.8 NG/ML (0.8-2.0) Blood Gas Puncture Site LT RADIAL Blood Gas Patient Temperature 98.6 Blood Gas HCO3 29 mmol/L (22-26) Blood Gas Base Excess 4.6 mmol/L (-2-2) Blood Gas Oxygen Saturation 95 % (90-100) Arterial Blood pH 7.42 (7.380-7.420) Arterial Blood Partial Pressure CO2 46 mmHg (38-42) Arterial Blood Partial Pressure O2 96 mmHg (61-120) Arterial Blood Oxygen Content 18.9 Vol % (12.0-20.0) Arterial Blood Carboxyhemoglobin 1.3 % (0-4) Arterial Blood Methemoglobin 1.1 % (0-2) Blood Gas Hemoglobin 14.1 G/DL (12.0-16.0) Oxygen Delivery Device VENTILATOR Blood Gas Ventilator Setting Blood Gas Inspired Oxygen 70 % Test 11/23/16 04:15 11/23/16 07:45 11/23/16 09:15 White Blood Count 17.1 TH/MM3 (4.0-11.0) Red Blood Count 4.33 MIL/MM3 (4.50-5.90) Hemoglobin 13.5 GM/DL (13.0-17.0) Hematocrit 41.3 % (39.0-51.0) Mean Corpuscular Volume 95.5 FL (80.0-100.0) Mean Corpuscular Hemoglobin 31.1 PG (27.0-34.0) Mean Corpuscular Hemoglobin Concent 32.6 % (32.0-36.0) Red Cell Distribution Width 14.6 % (11.6-17.2) Platelet Count 167 TH/MM3 (150-450) Mean Platelet Volume 9.0 FL (7.0-11.0) Activated Partial Thromboplast Time 29.5 SEC (24.3-30.1) Blood Gas Puncture Site LT RADIAL Blood Gas Patient Temperature 55 Blood Gas HCO3 31 mmol/L (22-26) Blood Gas Base Excess 6.8 mmol/L (-2-2) Blood Gas Oxygen Saturation 85 % (90-100) Arterial Blood pH 7.45 (7.380-7.420) Arterial Blood Partial Pressure CO2 45 mmHg (38-42) Arterial Blood Partial Pressure O2 54 mmHg (61-120) Arterial Blood Oxygen Content 16.7 Vol % (12.0-20.0) Arterial Blood Carboxyhemoglobin 1.5 % (0-4) Arterial Blood Methemoglobin 1.1 % (0-2) Blood Gas Hemoglobin 14.0 G/DL (12.0-16.0) Oxygen Delivery Device VENTILATOR Blood Gas Ventilator Setting PRVC/AC Result Diagram: 11/23/16 0415 11/22/16 0355 Microbiology Microbiology Date/Time Source Procedure Growth Status 11/23/16 14:50 Blood Peripheral Aerobic Blood Culture Pending Received 11/23/16 14:50 Blood Peripheral Anaerobic Blood Culture Pending Received 11/08/16 14:15 Stool Stool Stool Occult Blood (TYLER) - Final HEMOCCULT NEGATIVE Complete 11/23/16 14:50 Sputum Endotracheal Gram Stain Pending Received 11/23/16 14:50 Sputum Endotracheal Sputum Culture Pending Received 11/11/16 01:15 Urine Catheterized Urine Urine Culture - Final Jim Albicans Complete . Imaging Last Impressions Chest X-Ray 11/23/16 0000 Signed Impressions: Service Date/Time: Wednesday, November 23, 2016 11:49 - CONCLUSION: 1. Near-complete reexpansion of the right lung following chest tube insertion. Román Kim MD Lower Extremity Ultrasound 11/09/16 0000 Signed Impressions: Service Date/Time: Wednesday, November 09, 2016 14:13 - CONCLUSION: Normal examination. Jayson Manning MD Liver Ultrasound 11/09/16 0000 Signed Impressions: Service Date/Time: Wednesday, November 09, 2016 13:58 - CONCLUSION: Sono dense liver without duct dilatation. 4 mm common duct. Ward Kim MD FACR Chest CT 11/06/16 0000 Signed Impressions: Service Date/Time: Sunday, November 06, 2016 11:24 - CONCLUSION: 1. Dense bilateral posterior lower lobe airspace consolidation consistent with aspiration versus less likely pneumonia. 2. Linear consolidation in the right middle lobe consistent with atelectasis versus aspiration. 3. Trace left and small right pleural effusions. 4. Support lines and tubes in good position. 5. Prominent coronary artery calcifications. Nico Vaughan MD Head CT 11/05/16 0000 Signed Impressions: Service Date/Time: Saturday, November 05, 2016 21:43 - CONCLUSION: 1. No acute intracranial abnormalities. Pansinus fluid opacification. Cristofer De Santiago MD Abdomen X-Ray 10/29/16 0600 Signed Impressions: Service Date/Time: Saturday, October 29, 2016 04:41 - CONCLUSION: Nonspecific , nonobstructive bowel gas pattern. No evidence of free air. Jayson Taylor MD Carotid Artery Ultrasound 10/25/16 0000 Signed Impressions: Service Date/Time: September 08:27 - CONCLUSION: Mild to moderate plaque in both carotid systems with less than 40%% diameter stenosis by velocity criteria. Jhonathan Dietz MD CT Angiography 10/25/16 0000 Signed Impressions: Service Date/Time: September 06:12 - CONCLUSION: 1. Negative for pulmonary embolism. 2. There is a fairly large area of masslike consolidation in the medial right lung involving posterior segment right upper lobe and medial aspect of right lower lobe. There is associated right hilar and mediastinal adenopathy measuring up to 2.1 cm. Differential diagnosis includes pneumonia or underlying lung neoplasm. Close followup imaging recommended after treatment for pneumonia, to assess for underlying mass. Cristofer De Santiago MD . Procedures * 11/23/16 - right chest tube placement. * 11/10/16 - ETT replaced. * 11/04/16 - arterial line placement. * 10/25/16 - Intubation and central line placed. . Patient/Family Conference Present at Family Conference: Left message for sonDrake. Awaiting return call. . Issues Discussed: * Palliative care role, purpose, approach * Additional medical, psychosocial, and spiritual history * Patients general health, functional status, and cognitive changes in the months leading up to the current hospitalization * Patient/family understanding of the current medical problems * Patient/family understanding of prognosis * Patients goals of care as best understood from advance directives and/or conversations and/or values * Current medical treatment options and benefits/burdens of those options * Likely scenarios comparing ongoing aggressive care with a transition to comfort measures only * Questions answered to the best of my ability * Palliative care contact information provided Assessment and Plan Disease Oriented Problem List: (1) Acute respiratory failure (2) ARDS (adult respiratory distress syndrome) (3) COPD (chronic obstructive pulmonary disease) (4) Obesity hypoventilation syndrome (5) Anoxic encephalopathy (6) Metabolic encephalopathy (7) Atrial flutter (8) Leukocytosis (9) Sepsis (10) Hyperglycemia (11) Morbid obesity (12) Tobacco use (13) Hypertension Symptom Scale: (1) Pain 0-10 Scale: Unable to quantify (2) Dyspnea 0-10 Scale: Unable to quantify (3) Encephalopathy 0-10 Scale: Unable to quantify Pertinent Non-Medical Issues Psychosocial: notes indicate patient is single. Has one son and one daughter. Was living with his son prior to admission. Spiritual: unknown. Legal: Patient is currently incapacitated, uncertain if he will regain capacity. Notes indicate he is single. Nurse reports he has 1 son and 1 daughter. This information is accurate, according to [place] statutes, health care proxy decision-making would fall to the majority of adult children. Ethical issues impacting care: no known concerns at this time. . Important Contacts * Drake Andrews, son: [phone] . Prognosis Mr. Andrews is an unfortunate 56-year-old male who was admitted with respiratory distress, pneumonia, ARDS with prolonged hospitalization/mechanical ventilation still requiring high FI 02 and PEEP needs, unable to proceed with tracheostomy/ PEG tube given medical instability, high oxygen needs. Overall condition does not appear to be improving. . Code Status: Full Code Plan * Decision Maker: Patient is currently incapacitated, uncertain if he will regain capacity. Notes indicate he is single. Nurse reports he has 1 son and 1 daughter. This information is accurate, according to [place] statutes, health care proxy decision-making would fall to the majority of adult children. * FULL CODE * Palliative care left message for sonDrake as he is the only family contact information for at this time. Awaiting return call. * SYMPTOMS: Pain: potential sources of pain include COPD, intubation, prolonged hospitalization, bedbound status, chest tube, infection, etc. on fentanyl drip, intermittent grimacing during physical exam. Given underlying encephalopathy no new pain medication recommendations at this time. Dyspnea: remains on prolonged mechanical ventilation requiring high Fi02 and PEEP support. Has been too unstable for tracheostomy. Encephalopathy: patient with possible anoxic encephalopathy. No new medication recommendations at this time. * Palliative care number provided. * Palliative care will continue to follow throughout hospital course to assist with symptom management and clarification of goals as needed. . Thank you for the opportunity to participate in the care of Mr. Andrews. Attestation To help prompt me to consider important information that might be impacting today's encounter and assessment, information from prior notes written by myself or my colleagues may have been "brought forward" into today's note. My signature on this note, however, is an attestation that I personally performed the exam, history, and/or decision-making noted today, and, unless otherwise indicated, the interactions with patient, family, and staff as well as the review of records all occurred today. I also attest that the listed assessment and stated plan reflect my best clinical judgment today based on the combination of historical information, prior notes, and today's exam/ interactions. When time spent is documented, it refers only to time spent today by the signer, or if indicated, combined time spent today by collaborating physician/nurse practitioner. Sandra Mccabe Nov 23, 2016 15:40
--- NOTE | 2016-11-23 16:25 | HHI.IDPN ---
Subjective Subjective Remarks doing poorly febrile T max 101.7 stays on 70% FiO2 sp spontaneous R sided pneumothorax, CT was placed Antibiotics zosyn vancomycion fluconazole Allergies: Coded Allergies: No Known Allergies (Unverified , 10/25/16) Objective . Vital Signs Date Time Temp Pulse Resp B/P (MAP) Pulse Ox O2 Delivery O2 Flow Rate FiO2 11/23/16 13:30 74 16 159/71 (100) 92 11/23/16 13:15 74 16 153/75 (101) 91 11/23/16 13:00 100.9 74 16 147/71 (96) 89 11/23/16 12:45 73 16 168/81 (110) 89 11/23/16 12:30 73 16 149/76 (100) 86 11/23/16 12:16 71 25 159/76 (103) 88 11/23/16 12:14 88 100 11/23/16 12:00 71 19 133/66 (88) 84 11/23/16 12:00 70 11/23/16 11:45 71 17 151/71 (97) 86 11/23/16 11:30 72 22 143/72 (95) 86 11/23/16 11:15 71 16 132/74 (93) 86 11/23/16 11:00 71 16 137/75 (95) 86 11/23/16 10:45 71 29 134/75 (94) 87 11/23/16 10:30 72 16 134/69 (90) 87 11/23/16 10:15 71 16 129/67 (87) 84 11/23/16 10:00 70 17 134/64 (87) 87 11/23/16 09:45 71 16 144/71 (95) 87 11/23/16 09:30 71 16 158/76 (103) 87 11/23/16 09:15 73 16 148/67 (94) 86 11/23/16 09:00 72 15 142/69 (93) 86 11/23/16 08:45 77 16 160/76 (104) 86 11/23/16 08:30 84 16 153/86 (108) 86 11/23/16 08:15 72 11 138/84 (102) 89 11/23/16 08:03 93 50 11/23/16 08:00 55 11/23/16 08:00 98.9 72 14 132/84 (100) 92 11/23/16 07:51 92 55 11/23/16 06:00 72 11/23/16 04:00 72 11/23/16 04:00 55 11/23/16 04:00 98.7 72 22 138/76 (96) 94 11/23/16 03:28 94 55 11/23/16 02:00 73 11/23/16 00:00 55 11/23/16 00:00 98.2 73 21 121/72 (88) 96 11/23/16 00:00 73 11/22/16 23:32 95 55 11/22/16 22:00 72 11/22/16 20:00 55 11/22/16 20:00 97.6 71 20 170/78 (108) 95 11/22/16 20:00 71 11/22/16 19:40 95 55 11/22/16 18:00 74 11/23/16 11/23/16 11/24/16 15:00 23:00 07:00 Intake Total 100 ml Balance 100 ml Intake IV Total 100 ml . Laboratory Tests Test 11/22/16 03:55 11/23/16 04:15 White Blood Count 16.3 TH/MM3 17.1 TH/MM3 Red Blood Count 4.18 MIL/MM3 4.33 MIL/MM3 Hemoglobin 13.2 GM/DL 13.5 GM/DL Hematocrit 39.6 % 41.3 % Mean Corpuscular Volume 94.6 FL 95.5 FL Mean Corpuscular Hemoglobin 31.4 PG 31.1 PG Mean Corpuscular Hemoglobin Concent 33.2 % 32.6 % Red Cell Distribution Width 14.6 % 14.6 % Platelet Count 174 TH/MM3 167 TH/MM3 Mean Platelet Volume 8.8 FL 9.0 FL Neutrophils (%) (Auto) 88.3 % Lymphocytes (%) (Auto) 4.8 % Monocytes (%) (Auto) 6.3 % Eosinophils (%) (Auto) 0.2 % Basophils (%) (Auto) 0.4 % Neutrophils # (Auto) 14.4 TH/MM3 Lymphocytes # (Auto) 0.8 TH/MM3 Monocytes # (Auto) 1.0 TH/MM3 Eosinophils # (Auto) 0.0 TH/MM3 Basophils # (Auto) 0.1 TH/MM3 CBC Comment AUTO DIFF Differential Comment AUTO DIFF CONFIRMED Laboratory Tests Test 11/22/16 03:55 Blood Urea Nitrogen 14 MG/DL Creatinine 0.32 MG/DL Random Glucose 121 MG/DL Total Protein 5.6 GM/DL Albumin 2.1 GM/DL Calcium Level 8.5 MG/DL Phosphorus Level 3.5 MG/DL Magnesium Level 2.0 MG/DL Alkaline Phosphatase 55 U/L Aspartate Amino Transf (AST/SGOT) 12 U/L Alanine Aminotransferase (ALT/SGPT) 59 U/L Total Bilirubin 0.5 MG/DL Sodium Level 137 MEQ/L Potassium Level 4.5 MEQ/L Chloride Level 97 MEQ/L Carbon Dioxide Level 33.7 MEQ/L Anion Gap 6 MEQ/L Estimat Glomerular Filtration Rate 288 ML/MIN Microbiology Date/Time Source Procedure Growth Status 11/23/16 14:50 Blood Peripheral Aerobic Blood Culture Pending Received 11/23/16 14:50 Blood Peripheral Anaerobic Blood Culture Pending Received 11/23/16 14:50 Sputum Endotracheal Gram Stain Pending Received 11/23/16 14:50 Sputum Endotracheal Sputum Culture Pending Received Imaging Last Impressions Chest X-Ray 11/17/16 0600 Signed Impressions: Service Date/Time: Thursday, November 17, 2016 04:28 - CONCLUSION: Persistent bilateral lower lung consolidative infiltrates. Fito Joshua MD Lower Extremity Ultrasound 11/09/16 0000 Signed Impressions: Service Date/Time: Wednesday, November 09, 2016 14:13 - CONCLUSION: Normal examination. Jayson Manning MD Liver Ultrasound 11/09/16 0000 Signed Impressions: Service Date/Time: Wednesday, November 09, 2016 13:58 - CONCLUSION: Sono dense liver without duct dilatation. 4 mm common duct. Ward Kim MD FACR Chest CT 11/06/16 0000 Signed Impressions: Service Date/Time: Sunday, November 06, 2016 11:24 - CONCLUSION: 1. Dense bilateral posterior lower lobe airspace consolidation consistent with aspiration versus less likely pneumonia. 2. Linear consolidation in the right middle lobe consistent with atelectasis versus aspiration. 3. Trace left and small right pleural effusions. 4. Support lines and tubes in good position. 5. Prominent coronary artery calcifications. Nico Vaughan MD Head CT 11/05/16 0000 Signed Impressions: Service Date/Time: Saturday, November 05, 2016 21:43 - CONCLUSION: 1. No acute intracranial abnormalities. Pansinus fluid opacification. Cristofer De Santiago MD Abdomen X-Ray 10/29/16 0600 Signed Impressions: Service Date/Time: Saturday, October 29, 2016 04:41 - CONCLUSION: Nonspecific , nonobstructive bowel gas pattern. No evidence of free air. Jayson Taylor MD Carotid Artery Ultrasound 10/25/16 0000 Signed Impressions: Service Date/Time: September 08:27 - CONCLUSION: Mild to moderate plaque in both carotid systems with less than 40%% diameter stenosis by velocity criteria. Jhonathan Dietz MD CT Angiography 10/25/16 0000 Signed Impressions: Service Date/Time: September 06:12 - CONCLUSION: 1. Negative for pulmonary embolism. 2. There is a fairly large area of masslike consolidation in the medial right lung involving posterior segment right upper lobe and medial aspect of right lower lobe. There is associated right hilar and mediastinal adenopathy measuring up to 2.1 cm. Differential diagnosis includes pneumonia or underlying lung neoplasm. Close followup imaging recommended after treatment for pneumonia, to assess for underlying mass. Cristofer De Santiago MD Physical Exam CONSTITUTIONAL/GENERAL: This is a morbidly obese patient, sedated int'd on vent TUBES/LINES/DRAINS: SKIN: No jaundice, rashes, or lesions. Skin temperature appropriate. Not diaphoretic. CARDIOVASCULAR: Afib on the monitor tachycardia without murmurs, gallops, or rubs. No JVD. Peripheral pulses symmetric. RESPIRATORY/CHEST: Symmetric, unlabored respirations. Few rhonchi to auscultation. R sided CT in place GASTROINTESTINAL: Abdomen soft, non-tender, mildly distended. No hepato- splenomegaly, or palpable masses. No guarding. Bowel sounds present. Dign[place] in [place],j[place] with liquid brown stool GENITOURINARY: Without palpable bladder distension. Santiago catheter in place with somewhat cloudy urine MUSCULOSKELETAL: Extremities without clubbing, cyanosis, Tight edema, 3+ NEUROLOGICAL: Sedated. opens eyes to voice and tactale stimulation PSYCHIATRIC: unable to assess Assessment & Plan Remarks PNA, Kleb oneumo - failrly sensitive ARDS Acute VDRF, failure to wean - also not a candidae for trach untill vent settings are lower - getting worse New R sided PTX sp CT Abx associated diarrhea, C.diff negative Abnormal UA, CANDIDURIA Persiastent leukocytosis -worse New fever Worsening resp status REC's: cont zosyn, vanco rechk blood, sputum clx fu clinically fu WBC and temps Discussed Condition With Mariana De Guzman MD Nov 23, 2016 16:25
[2016-11-23] MEDS: PIPERACIL-TAZO 4.5 GM PREMIX 100 ML IV SCH ×2 (16:55→23:55)
[2016-11-23] MEDS ORDERED: VANCOMYCIN INJ 2,000 MG in SODIUM CHLORID 0.9% 500 ML INJ 500 ML IV SCH (18:00)
[2016-11-23] MEDS ORDERED: VANCOMYCIN 500 MG/NS 100 ML IV ONE ×2 (22:00)
[2016-11-24] VITALS (20 sets, daily range): BP systolic 113–170; BP diastolic 66–76; PULSE 75–134; RESP 16–18; TEMP 98.5–99.4; O2SAT 91–98
[2016-11-24] MEDS: fentaNYL DRIP 250 ML IV PRN ×2 (03:18→12:52)
[2016-11-24] MEDS: INSULIN NovoLIN REGULAR SUPPLEMENTAL SCALE SQ SCH ×6 (04:00→23:26)
[2016-11-24] MEDS: RESP: ALBUTEROL 2.5 MG/IPRATROPIUM 0.5 MG NEB (SCH) NEB ×6 (04:04→23:41)
[2016-11-24 04:24] LABS: BASOPHIL % 0.2 % (0.0-2.0); EOSINOPHIL % 0.1 % (0.0-4.0); HEMATOCRIT 37.9 % (39.0-51.0); LYMPHOCYTE # 0.5 TH/MM3 (1.0-4.8); MEAN CELL VOLUME 94.3 FL (80.0-100.0); MEAN CORPUSCULAR HEMOGLOBIN 30.7 PG (27.0-34.0); MEAN CORPUSCULAR HGB CONC 32.5 % (32.0-36.0); MONO % 5.5 % (0.0-8.0); NEUT % 91.2 % (16.0-70.0); PLATELET COUNT 154 TH/MM3 (150-450); RED BLOOD COUNT 4.02 MIL/MM3 (4.50-5.90); RED CELL DISTRIBUTION WIDTH 14.6 % (11.6-17.2); WHITE BLOOD COUNT 17.5 TH/MM3 (4.0-11.0)
[2016-11-24 04:26] LABS: HEMO FLAGS AUTO DIFF
[2016-11-24 04:52] LABS: BICARBONATE 33.2 MEQ/L (21.0-32.0); POTASSIUM 3.2 MEQ/L (3.5-5.1)
[2016-11-24 05:24] LABS: BANDS 2 % (0-6); METAMYELOCYTES 1 % (0-1); NEUTROPHIL # MANUAL DIFF 16.6 TH/MM3 (1.8-7.7); POLYS (SEG NEUTROPHILS) 92 % (16-70); WBC DIFF SAMPLE 100
[2016-11-24 05:26] LABS: PLATELET ESTIMATE SMEAR LOW (NORMAL); PLATELET MORPHOLOGY NORMAL (NORMAL); SCAN/DIFF FINAL DIFF MANUAL
[2016-11-24] MEDS: PIPERACIL-TAZO 4.5 GM PREMIX 100 ML IV SCH ×4 (05:48→23:12)
[2016-11-24] MEDS: PROPOFOL 1000 MG/100 ML IV PRN ×7 (05:49→23:12)
[2016-11-24 06:10] LABS: APTT (PATIENT) 33.5 SEC (24.3-30.1)
[2016-11-24] MEDS: LABETALOL HCL 100 MG/20 ML VIAL IV PUSH PRN (06:41)
[2016-11-24] MEDS: POTASSIUM CHLOR 20 MEQ PREMIX 100 ML IV PRN ×2 (06:43→13:18)
--- NOTE | 2016-11-24 07:31 | HHI.CCPN ---
Subjective Remarks/Hospital Course 56-year-old very pleasant gentleman with past medical history of COPD, and hypertension presents complaining of shortness of breath and nausea, generalized fatigue and chills for 2 days. He thinks it has been from being out in the heat. Denies any fever, chest pain, vomiting, abdominal pain, focal weakness or numbness. In the emergency department his saturation was in mid 80s on arrival with auditory wheezing and tachypnea. He was placed on 4 liters of NC and saturating in the low 90. He does not use oxygen at home. He also mentioned 2 days ago, he came home and was sitting in a chair and was taking his shoes off when he passed out. States he woke up and was still on the chair. This has never happen before. 10/25: Patient intubated secondary to increasing oxygen requirements, altered mental status. Discussed with son. Somewhat hypertensive post intubation. 10/26: Placed on rotaprone bed last evening. Flolan initiated. Saturations improved. Afebrile. Remains on Nimbex drip. 10/27: T max 99.7. Tolerated on not prone position 2 hours yesterday. Tolerating trickle feeds. FiO2 down to 55% 10/28: Tmax 99.9. When unprone for chest x-ray this a.m. desaturated. Currently on 90% FiO2. Actually hypertensive. No bowel movements. Remains paralyzed 10/29: Remains intubated sedated on continuous Prone therapy Except for chest x- ray. Fever 100.8. Panculture requested. Zyvox added. Continue IV sedation with propofol and fentanyl and Versed, neuromuscular paralysis with Nimbex 10/30: Prone cycle changed to 8 hr prone, 1 hr supine from 10/29. Due to hypoxia will continue with same cycle today. Chest x-ray remains unchanged. Patient remains severely hypoxemic FiO2 at 75% PEEP at 16. WBC count worsened to 18. Remains neuromuscularly paralyzed. 10/31: Patient remains critically ill but stable. Oxygen saturation 95% on 55 of FiO2 and PEEP of 16. Reduce PEEP to 14, FiO2 to 50% and start weaning Flolan. Increase supine time to 4 hours, reduce Prone time to 6 hours 11/01: Patient remains intubated sedated critically ill on neuromuscular paralysis. FiO2 reduced to 50, I will attempt PEEP wean gradually to 12 today. Prone/supine cycles will be changed to 6 hours each 11/02: FiO2 remains at 50%, PEEP reduced from 14 to 12 today, TV increased to 600 and RR to 20, in anticipation of discontinuing prone therapy, which will be DCd today. Off Flolan for 2 days 11/03: off pronation. fio2 up to 65% , peep 12. agitation causing desaturation. minimal improvements. 11/04: good diuresis yesterday, but despite that, fio2 persists at 65% and spo2 decreasing to 91% today. no real improvements and some worsening of pulmonary function despite ongoing aggressive therapies. still not safe for SBT given hypoxia. also severely hypertensive this morning. 11/05: continues to diurese well and Cr still at baseline. fio2 at 90% however, and no clinical improvements in mental status or hypoxia. still unsafe for SBT given hypoxemia. off pathway. hypertension under much better control. poor neuro status is concerning. 11/06: Remains severely hypoxemic. FiO2 was 100% PEEP 14. I reduce FiO2 to 90% after increasing PEEP to 16. Developed a flutter with RVR overnight, currently on Cardizem drip. Unable to do SBT due to very high settings 11/07: Remains hypoxemic and but able to wean FiO2 down to 80% with PEEP of 16. Remains unresponsive on sedation. Unable to trach due to his high vent settings and high FiO2. Remains on Cardizem and 15 mg per hour, with rate controlled a flutter. We'll start by mouth Cardizem in an attempt to wean IV Cardizem 11/08: Remains critically ill hypoxic but FiO2 now weaned to 60%, PEEP remains at 16. Very heavily sedated no withdrawal to pain. Will hold all continuos sedation. Sputum culture with Klebsiella sensitive to Rocephin. A flutter persistent, will start IV heparin 11/09 Patient is sedated with Diprivan and intubated, On Cardizem drip 15mg/hr for Aflutter. Heparin drip stated yesterday. 11/10 Patient remains sedated and intubated. On Heparin drip. Persistent fever with Tmax 102.5. ETT was replaced yesterday. 11/11 Patient was placed on Cardizem and amio drips overnight for Afib with RVR. Sedated with Diprivan and intubated. On Heparin drip. T;99.3 this morning. 11/12 Patient remains intubated and sedated with Diprivan. On Cardizem drip 15mg/ hr. Afebrile, Tmax 100.6 11/13 Patient is sedate with Diprivan and intubated. In Afib with RVR now on Amio drip. Tmax 100,4 11/14 Remains intubated sedated with propofol and fentanyl. Afib rate controlled , remains on amiodarone and Cardizem gtt. Fio2 remains high at 70%, PEEP 12. CXR persistent bibasilar infiltrates/effusion 11/15: Currently sedated with propofol and fentanyl drips. Currently in A. fib/ flutter on amiodarone drip and Cardizem drip. PEEP increased to 14. FiO2 65. 11/16: Tmax 100.1. Patient more alert and tachycardic this AM. Adding midazolam gtt for sedation and currently tolerating tube feeding. Positive BM. PEEP to 12. FiO2 75% 11/17: Afebrile. FiO2 down to 60%. PEEP set 12. Multiple tracheostomy hopefully on Saturday. Heart rate better control. 11/18: Afebrile. Discontinuing amiodarone drip today and switching to oral. FiO2 between 60 and 70%. Restarting epoprostenol in attempt to get FiO2 down to 50% for tracheostomy tomorrow 11/19 No events overnight. Sedated with Diprivan, Fentanyl and versed. Still requiring high O2 - on PRVC with PEEP;12 and FIO2 70%. Afebrile. 11/20 Patient remains sedated with Diprivan, versed, Fentanyl and intubated. On PRVC with PEEP: 12, FIO2 50% , sats 88-90%. On Heparin drip. Subjective 11/21: Tmax 99.4. Tolerating tube feeds. Remains on heparin drip. FiO2 down to 55%. PEEP of 10. Eyes open blinks spontaneously. Does squeeze and weakly on left side with encouragement 11/22: Intubated heavily sedated. FiO2 50%, remains on Flolan. PEEP 10. Bumex 1 mg 1 and Diamox 500 mg 1 IV. She will negative balance. Heparinized tube feeds on hold for tracheostomy today at 12. Remains in atrial flutter 11/23 Patient remains sedated with Diprivan, Fentanyl, Versed and intubated. On Heparin drip. For CT guided thoracentesis today. On APRV 11/24 Patient remains sedated and intubated. 20Fr CT placed yesterday for right sided PTX. Spiked fever with T 101.6. Remains on Heparin drip. Objective Vital Signs Date Time Temp Pulse Resp B/P (MAP) Pulse Ox O2 Delivery O2 Flow Rate FiO2 11/24/16 06:00 127 11/24/16 04:04 93 Ventilator 11/24/16 04:00 70 11/24/16 04:00 99.2 16 131/72 (91) Intake and Output 11/24/16 11/24/16 11/25/16 08:00 16:00 00:00 Intake Total 650 ml Output Total 2100 ml Balance -1450 ml Result Diagram: 11/24/16 0400 11/24/16 0400 Other Results Laboratory Tests Test 11/23/16 07:45 11/23/16 09:15 11/23/16 14:50 11/23/16 16:30 Activated Partial Thromboplast Time 29.5 SEC 29.0 SEC Blood Gas Puncture Site LT RADIAL Blood Gas Patient Temperature 55 Blood Gas HCO3 31 mmol/L Blood Gas Base Excess 6.8 mmol/L Blood Gas Oxygen Saturation 85 % Arterial Blood pH 7.45 Arterial Blood Partial Pressure CO2 45 mmHg Arterial Blood Partial Pressure O2 54 mmHg Arterial Blood Oxygen Content 16.7 Vol % Arterial Blood Carboxyhemoglobin 1.5 % Arterial Blood Methemoglobin 1.1 % Blood Gas Hemoglobin 14.0 G/DL Oxygen Delivery Device VENTILATOR Blood Gas Ventilator Setting PRVC/AC Urine Color YELLOW Urine Turbidity CLEAR Urine pH 5.5 Urine Specific [place] 1.022 Urine Protein TRACE mg/dL Urine Glucose (UA) NEG mg/dL Urine Ketones NEG mg/dL Urine Occult Blood TRACE Urine Nitrite NEG Urine Bilirubin NEG Urine Urobilinogen LESS THAN 2.0 MG/DL Urine Leukocyte Esterase TRACE Urine RBC 16 /hpf Urine WBC 1 /hpf Urine Mucus FEW /lpf Microscopic Urinalysis Comment CATH-CULT NOT IND Test 11/24/16 04:00 White Blood Count 17.5 TH/MM3 Red Blood Count 4.02 MIL/MM3 Hemoglobin 12.3 GM/DL Hematocrit 37.9 % Mean Corpuscular Volume 94.3 FL Mean Corpuscular Hemoglobin 30.7 PG Mean Corpuscular Hemoglobin Concent 32.5 % Red Cell Distribution Width 14.6 % Platelet Count 154 TH/MM3 Mean Platelet Volume 8.2 FL Neutrophils (%) (Auto) 91.2 % Lymphocytes (%) (Auto) 3.0 % Monocytes (%) (Auto) 5.5 % Eosinophils (%) (Auto) 0.1 % Basophils (%) (Auto) 0.2 % Neutrophils # (Auto) 16.0 TH/MM3 Lymphocytes # (Auto) 0.5 TH/MM3 Monocytes # (Auto) 1.0 TH/MM3 Eosinophils # (Auto) 0.0 TH/MM3 Basophils # (Auto) 0.0 TH/MM3 CBC Comment AUTO DIFF Differential Total Cells Counted 100 Neutrophils % (Manual) 92 % Band Neutrophils % 2 % Lymphocytes % 2 % Monocytes % 3 % Neutrophils # (Manual) 16.6 TH/MM3 Metamyelocytes 1 % Differential Comment FINAL DIFF MANUAL Platelet Estimate LOW Platelet Morphology Comment NORMAL Red Cell Morphology Comment NORMAL Activated Partial Thromboplast Time 33.5 SEC Blood Urea Nitrogen 18 MG/DL Creatinine 0.27 MG/DL Random Glucose 150 MG/DL Calcium Level 8.1 MG/DL Sodium Level 136 MEQ/L Potassium Level 3.2 MEQ/L Chloride Level 94 MEQ/L Carbon Dioxide Level 33.2 MEQ/L Anion Gap 9 MEQ/L Estimat Glomerular Filtration Rate 350 ML/MIN Imaging Last Impressions Chest X-Ray 11/23/16 0000 Signed Impressions: Service Date/Time: Wednesday, November 23, 2016 11:49 - CONCLUSION: 1. Near-complete reexpansion of the right lung following chest tube insertion. Román Kim MD Lower Extremity Ultrasound 11/09/16 0000 Signed Impressions: Service Date/Time: Wednesday, November 09, 2016 14:13 - CONCLUSION: Normal examination. Jayson Manning MD Liver Ultrasound 11/09/16 0000 Signed Impressions: Service Date/Time: Wednesday, November 09, 2016 13:58 - CONCLUSION: Sono dense liver without duct dilatation. 4 mm common duct. Ward Kim MD FACR Chest CT 11/06/16 0000 Signed Impressions: Service Date/Time: Sunday, November 06, 2016 11:24 - CONCLUSION: 1. Dense bilateral posterior lower lobe airspace consolidation consistent with aspiration versus less likely pneumonia. 2. Linear consolidation in the right middle lobe consistent with atelectasis versus aspiration. 3. Trace left and small right pleural effusions. 4. Support lines and tubes in good position. 5. Prominent coronary artery calcifications. Nico Vaughan MD Head CT 11/05/16 0000 Signed Impressions: Service Date/Time: Saturday, November 05, 2016 21:43 - CONCLUSION: 1. No acute intracranial abnormalities. Pansinus fluid opacification. Critsofer De Santiago MD Abdomen X-Ray 10/29/16 0600 Signed Impressions: Service Date/Time: Saturday, October 29, 2016 04:41 - CONCLUSION: Nonspecific , nonobstructive bowel gas pattern. No evidence of free air. Jayson Taylor MD Carotid Artery Ultrasound 10/25/16 0000 Signed Impressions: Service Date/Time: September 08:27 - CONCLUSION: Mild to moderate plaque in both carotid systems with less than 40%% diameter stenosis by velocity criteria. Jhonathan Dietz MD CT Angiography 10/25/16 0000 Signed Impressions: Service Date/Time: September 06:12 - CONCLUSION: 1. Negative for pulmonary embolism. 2. There is a fairly large area of masslike consolidation in the medial right lung involving posterior segment right upper lobe and medial aspect of right lower lobe. There is associated right hilar and mediastinal adenopathy measuring up to 2.1 cm. Differential diagnosis includes pneumonia or underlying lung neoplasm. Close followup imaging recommended after treatment for pneumonia, to assess for underlying mass. Cristofer De Santiago MD Objective Remarks GENERAL: 56-year-old male, critically ill orotracheally intubated, heavily sedated SKIN: Warm and dry. Positive intertrigo HEAD: Atraumatic. Normocephalic. EYES: Pupils equal and round about 3 mm bilaterally and reactive. No scleral icterus. No injection or drainage. ENT: No nasal bleeding or discharge. Orotracheally intubated NECK: Trachea midline. No JVD. CARDIOVASCULAR: Atrial fibrillation rate controlled, IR. S1, S2 no S4. Diminished heart sounds. Without murmur, clicks, or rubs RESPIRATORY: Bilateral wheezes and rhonchi appreciated. Diminished. GASTROINTESTINAL: Abdomen soft, obese. Hypoactive bowel sounds appreciated MUSCULOSKELETAL: Extremities with trace lower extremity bilateral edema. No obvious deformities. NEUROLOGICAL: Withdraws to pain. Opens eyes intermittently. Positive gag. Positive corneal reflex. (Weakly follows commands by squeezing hands left greater than right side to Dr. Story 11/21/16 on sedation vacation) Date of Insertion: Nov 16, 2016 Line: PICC Side: Left Location: Antecubital A/P Assessment and Plan Neuro/Psych: CIM/SHEFALI s/p Neuromuscular paralysis for Prone therapy Agitated Delirium, Metabolic Encephalopathy Syncope On propofol,, Fentanyl and Versed for sedation and vent synchrony. Goal of RASS -2 ,Daily sedation vacation Neuro is following-Dr. Rdz recommended MRI brain once stable prn hydromorphone for breakthrough. Haloperidol 5mg iv q4h prn for agitation. Brain CT on admission revealed no acute intracranial findings, CT brain 11/05- no acute findings. opacification of sinuses. Carotid ultrasound less than 50% stenosis bilaterally EEG 11/20: No seizure activity. EEG 11/09: severe encephalopathy PT/OT for range of motion CV: Atrial fib/ flutter with RVR Hypertension- On Amiodarone 400mg Q12, Digoxin 0.125 mg daily(Dig. level 0.8 on 11/22) Resume PO Cardizem 90 mg PO q6hr, Lopressor 50mg Q6, Clonidine 0.2mg Q8 for hypertension and Atrial fib/flutter IV heparin for anticoagulation Repeat echo with bubble study: 11/22: No shunt seen Echo 10/25 EF 60-65% Resp: Acute hypoxemic Respiratory failure - severe and persistent. Spontaneous Right sided PTX 2nd barotrauma Severe ARDS COPD exacerbation Pneumonia most likely community-acquired Obesity hypoventilation syndrome Tobacco use disorder Continue with vent support keep sat >92% s/p 20Fr CT placement for right PTX 11/23, monitor CT drainage Check CXR and ABG CT pulmonary angio revealed no pulmonary embolus. Masslike consolidation in the posterior right upper lobe and medial right lower lobe. Lymphadenopathy to 1 cm right hilum and subcarinal. Atelectasis left lower lobe. Change vent setting: PRVC 16, TV 700, IT:1.3, PEEP:10, FIO2 50% to keep Saturation >88%. Intubated 10/25. Discontinued Prone therapy 11/02/16. Epoprostenol restarted 11/18 50,000 ng/ml 8 ml/hr nebs, start weaning off Flolan Albuterol/ipratropium every 4 hours with albuterol every 2 hours when necessary dyspnea. Ventilator bundle, Budesonide 0.5 mg aerosols twice a day. Methylprednisolone 40 mg IV daily Pulmonary/Dr. Wynne following GI: Morbid Obesity Elevated LFT's Monitor LFT, US liver: No ductal dilatation Continue tube feeds-Vital high protein 1.5 currently at 30ml/hr Famotidine 20 milligrams mg twice a day for GI prophylaxis /renal: Monitor renal function, I/O's, electrolytes replacement per protocol. Will need K replacement today Endo: Hyperglycemia- SSI Q4 for glycemic control. . Heme: Normocytic anemia Monitor CBC, coags- patient is on heparin drip. ID: Severe sepsis Pneumonia Started on Vanco and Zosyn yesterday for new onset fever, Follow up on Blood and sputum cx from 11/23- NGTD s/p (ceftriaxone and Diflucan course). ID is following-Dr. Patel s/p ceftriaxone 11/02-11/09 for Enterobacter pneumonia. Repeat sputum Klebsiella sensitive to Rocephin 10/29/16-Enterobacter in sputum, 11/06/16, 11/10 sputum- Klebsiella Urine Legionella and pneumococcal antigens negative and influenza negative C-diff PCR is negative Access RUE PICC placed 11/05 through 11/15 replaced 11/16 with left upper extremity PICC Prophylaxis - GI, famotidine - DVT - IV heparin gtt 11/09 Doppler US LE negative for DVT Palliative care consulted to asses with goals of care Critical Care: The total critical care time was 30 minutes. Time to perform other separately billable procedures was not included in the critical care time. Chepe Carney MD Nov 24, 2016 07:31
[2016-11-24] MEDS: methylPREDNISolone SOD SUCC 40 MG/1 ML VIAL IV SCH (07:55)
[2016-11-24] MEDS: FAMOTIDINE 20 MG TAB NG SCH ×2 (07:55→20:47)
[2016-11-24] MEDS: AMIODARONE 200 MG TAB OG-TUBE SCH ×2 (07:55→20:47)
[2016-11-24] MEDS: VANCOMYCIN INJ 2,500 MG in SODIUM CHLORID 0.9% 500 ML INJ 500 ML IV SCH ×2 (07:57→20:47)
[2016-11-24] MEDS: CHLORHEXIDINE 0.12% (ORAL KIT) 15 ML CUP MT SCH ×2 (07:57→20:49)
[2016-11-24] MEDS: SODIUM CHLORIDE 0.9% FLUSH 10 ML FLUSH SCH ×2 (08:09→20:48)
[2016-11-24] MEDS: POTASSIUM CHLOR 40 MEQ PREMIX 100 ML IV PRN (08:26)
[2016-11-24] MEDS: DIGOXIN 0.125 MG TAB PO SCH (08:26)
[2016-11-24] MEDS: RESP: BUDESONIDE 0.5 MG/2 ML NEB NEB SCH ×2 (08:45→20:25)
--- NOTE | 2016-11-24 08:48 | RADRPT ---
EXAM DATE/TIME: 11/24/2016 08:00 [place] COMPARISON: CHEST SINGLE AP, November 23, 2016, 11:49. INDICATIONS : Shortness of breath. MEDICAL HISTORY : Chronic obstructive pulmonary disease. Hypertension.Hypercholesterolemia. Renal stones. SURGICAL HISTORY : None. ENCOUNTER: Subsequent ACUITY: 2 days PAIN SCORE: Non-responsive. LOCATION: Bilateral chest FINDINGS: AP semiupright portable view of the chest demonstrates stable appearance of an endotracheal tube with the tip at the level of the clavicles. Stable left sided central line with the tip overlying the dis delfin SVC. NG tubing which extends beyond the imaged portion of the film. Stable appearance of a right apically directed chest tube. No visualized pneumothorax. The right hemithorax is significant for per sistent right basilar airspace consolidation and blunting of the right costophrenic angle consistent with fluid. Slight hazy increased density overlying the remainder of the right hemithorax concerning for pleural fluid. There is blunting of the left costophrenic angle consistent with a left-sided pleu ral effusion and adjacent atelectasis. CONCLUSION: Stable lines and tubes. The right pneumothorax is no longer visualized. There is overall slight incre ase within the right basilar airspace consolidation and pleural fluid. Small left-sided pleural fusio n and overlying atelectasis is stable. Rose Nicole MD on November 24, 2016 at 8:43 Board Certified Radiologist. This report was verified electronically.
[2016-11-24] MEDS: SODIUM CHLORIDE 0.9% FLUSH 10 ML FLUSH IVF SCH (09:00)
[2016-11-24] MEDS: EPOPROSTENOL NEB SOLUTION 50 NG/KG/MIN 100 ML NEB SCH ×2 (09:00)
[2016-11-24 09:15] LABS: BLOOD GAS BASE EXCESS 6.9 mmol/L (-2-2); BLOOD GAS CARBOXYHEMOGLOBIN 1.4 % (0-4); BLOOD GAS HCO3 31 mmol/L (22-26); BLOOD GAS METHEMOGLOBIN 1.2 % (0-2); BLOOD GAS O2 HGB SATURATION 94 % (90-100); BLOOD GAS PCO2 43 mmHg (38-42); BLOOD GAS PO2 88 mmHg (61-120); BLOOD GAS TOTAL HGB 12.8 G/DL (12.0-16.0); CRITICAL VALUE NO; OXYGEN DEVICE VENTILATOR; TEMP CORR TO 98.6
[2016-11-24 09:16] LABS: DRAW SITE RT RADIAL; FIO2 50 %; NUMBER OF ARTERIAL PUNCTURES 1; STAT NO; ULNAR PULSE PRESENT; VENT SETTINGS PRVC/AC 700/16
[2016-11-24] MEDS ORDERED: EPOPROSTENOL NEB SOLUTION 40 NG/KG/MIN 100 ML NEB SCH ×2 (10:00)
[2016-11-24] MEDS: ARTIFICIAL TEARS OPTH OINT 3.5 APPLIC/3.5 GM TUBO EACH EYE SCH ×2 (10:29→20:48)
[2016-11-24] MEDS: SODIUM CHLORIDE 0.9% FLUSH 10 ML FLUSH IV FLUSH SCH (10:30)
[2016-11-24 12:10] LABS: APTT (PATIENT) 33.6 SEC (24.3-30.1)
[2016-11-24] MEDS: DILTIAZEM HCL 90 MG TAB PO SCH ×3 (12:36→23:12)
[2016-11-24] MEDS: METOPROLOL TARTRATE 50 MG TAB PO SCH ×3 (12:36→23:12)
[2016-11-24] MEDS: HEPARIN 25,000 UNITS-D5W 250 ML - PREMIX IV SCH (12:38)
[2016-11-24] MEDS: HEPARIN SODIUM - IV 10,000 UNITS/10 ML VIAL IV PUSH PRN (12:40)
[2016-11-24] MEDS: cloNIDine HCL 0.2 MG TAB OG-TUBE SCH ×2 (12:51→20:47)
[2016-11-24] MEDS ORDERED: EPOPROSTENOL NEB SOLUTION 30 NG/KG/MIN 100 ML NEB SCH ×2 (18:00)
[2016-11-24 20:13] LABS: APTT (PATIENT) 104.8 SEC (24.3-30.1)
--- NOTE | 2016-11-24 20:47 | MB ---
cc: RAUL RICHEY MD DATE OF CONSULTATION: 11/24/2016. REASON FOR CONSULTATION: Acute respiratory failure, tracheostomy placement. HISTORY OF PRESENT ILLNESS: The patient is a 56-year-old male who presents with acute onset of acute respiratory distress. The patient is noted to be admitted on 10/25 with initial diagnosis of pneumonia. The patient subsequently developed florid ARDS and has been somewhat unstable. He has also been in acute respiratory failure, also in the atrial fibrillation currently on heparin drip. He developed Klebsiella pneumoniae, severe encephalopathy confirmed by EEG and a right pneumothorax status post a right chest tube replacement. The patient is currently intubated and nonverbal. History is obtained through the chart and the hospital staff. Surgery was consulted for request in tracheostomy placement. PAST MEDICAL HISTORY: 1. COPD. 2. Sleep apnea. 3. Kidney stones. 4. Hypertension. PAST SURGICAL HISTORY: The patient has had no surgeries. ALLERGIES: NO KNOWN DRUG ALLERGIES. SOCIAL HISTORY: A Pack a day smoker. unable to obtain EtOH or IV drug abuse history. FAMILY HISTORY: Unable to obtain. MEDICATIONS: See the electronic medical record. REVIEW OF SYSTEMS: GENERAL: Unable to obtain. HEAD, EYES, EARS, NOSE, THROAT: Unable to obtain. RESPIRATORY: Unable to obtain. NEUROLOGIC: Unable to obtain. ABDOMINAL: Unable to obtain. CARDIAC: Unable to obtain. PSYCHIATRIC: Unable to obtain. PHYSICAL EXAMINATION: GENERAL: Patient in no acute distress. VITAL SIGNS: Temperature 99.2, pulse 127, respirations 16, blood pressure 121/72, saturation 93% on 60% FIO2. HEAD, EYES, EARS, NOSE, THROAT: Pupils equal, round and reactive. ET tube in place. NECK: The neck is supple. Trachea is midline. LUNGS: Bilateral expansion. Right chest tube in place. ABDOMEN: Abdomen soft, obese. EXTREMITIES: Warm. Mild edema. NEUROLOGIC: Unable to assess. Sedated. LABORATORY AND DIAGNOSTIC DATA: WBCs 17.5, hemoglobin 12.3, hematocrit 37.9, platelet count 154,000. Sodium 136, potassium 3.2, chloride 94, BUN is 18, creatinine is 0.2, glucose 150. PTT is 33.6. Xrays reviewed by myself. No pneumothorax. Right chest tube in place. Consolidation of the right. Small left pleural effusion. ASSESSMENT: The patient is 56-year-old male with several medical issues who developed acute respiratory failure, pneumonia, ARDS and is currently ventilator dependent for over 30 days. PLAN: After full clinical, radiologic and laboratory workup, the patient with the above-named issues including acute respiratory failure. The patient is in need of surgical airway including tracheostomy. Will discuss with the novelty twister operator to set up a time and date to do this, and will likely plan for Saturday for tracheostomy placement in the OR. Will attempt to address and discuss with family. However, no family appears to be at bedside. MD MAGDA Amaro/JOSÉ MIGUEL /8:26 PM /8:35 PM MTDTess
[2016-11-24 23:12] LABS: APTT (PATIENT) 28.1 SEC (24.3-30.1)
[2016-11-25] VITALS (19 sets, daily range): BP systolic 103–162; BP diastolic 64–82; PULSE 72–121; RESP 16; TEMP 98.4–98.8; O2SAT 87–97
[2016-11-25] MEDS: PROPOFOL 1000 MG/100 ML IV PRN ×7 (01:49→21:52)
[2016-11-25] MEDS ORDERED: EPOPROSTENOL NEB SOLUTION 20 NG/KG/MIN 100 ML NEB SCH ×2 (02:00)
[2016-11-25] MEDS: fentaNYL DRIP 250 ML IV PRN ×2 (02:09→13:46)
[2016-11-25] MEDS: RESP: ALBUTEROL 2.5 MG/IPRATROPIUM 0.5 MG NEB (SCH) NEB ×5 (04:00→19:35)
[2016-11-25] MEDS: CHLORHEXIDINE GLUCONATE 2 % 1 PACK (2 CLOTHS) TOP SCH (04:00)
[2016-11-25] MEDS: PIPERACIL-TAZO 4.5 GM PREMIX 100 ML IV SCH ×4 (05:00→22:00)
[2016-11-25] MEDS: INSULIN NovoLIN REGULAR SUPPLEMENTAL SCALE SQ SCH ×6 (05:01→23:53)
[2016-11-25] MEDS: DILTIAZEM HCL 90 MG TAB PO SCH ×4 (05:02→23:53)
[2016-11-25] MEDS: cloNIDine HCL 0.2 MG TAB OG-TUBE SCH ×3 (05:02→20:27)
[2016-11-25] MEDS: METOPROLOL TARTRATE 50 MG TAB PO SCH ×4 (05:02→23:53)
[2016-11-25 06:18] LABS: AUTOMATED NEUTROPHIL # 13.1 TH/MM3 (1.8-7.7); BASOPHIL # 0.1 TH/MM3 (0-0.2); BASOPHIL % 0.5 % (0.0-2.0); EOSINOPHIL % 0.2 % (0.0-4.0); HEMATOCRIT 37.2 % (39.0-51.0); LYMPH % 3.4 % (9.0-44.0); LYMPHOCYTE # 0.5 TH/MM3 (1.0-4.8); MEAN CELL VOLUME 94.7 FL (80.0-100.0); MEAN CORPUSCULAR HEMOGLOBIN 31.4 PG (27.0-34.0); MEAN CORPUSCULAR HGB CONC 33.1 % (32.0-36.0); MONO % 5.6 % (0.0-8.0); NEUT % 90.3 % (16.0-70.0); PLATELET COUNT 157 TH/MM3 (150-450); RED BLOOD COUNT 3.93 MIL/MM3 (4.50-5.90); RED CELL DISTRIBUTION WIDTH 14.6 % (11.6-17.2); WHITE BLOOD COUNT 14.5 TH/MM3 (4.0-11.0)
[2016-11-25 06:20] LABS: HEMO FLAGS AUTO DIFF
[2016-11-25 06:35] LABS: BICARBONATE 31.6 MEQ/L (21.0-32.0); MAGNESIUM 1.8 MG/DL (1.5-2.5); POTASSIUM 3.9 MEQ/L (3.5-5.1)
[2016-11-25 07:17] LABS: BANDS 1 % (0-6); CORRECTED NUCLEATED RBC 1 /100 WBC (0-0); METAMYELOCYTES 1 % (0-1); MYELOCYTES 1 % (0-0); NEUTROPHIL # MANUAL DIFF 13.8 TH/MM3 (1.8-7.7); PLATELET ESTIMATE SMEAR NORMAL (NORMAL); PLATELET MORPHOLOGY NORMAL (NORMAL); POLYS (SEG NEUTROPHILS) 92 % (16-70); SCAN/DIFF FINAL DIFF MANUAL; WBC DIFF SAMPLE 100
--- NOTE | 2016-11-25 07:49 | HHI.CCPN ---
Subjective Remarks/Hospital Course 56-year-old very pleasant gentleman with past medical history of COPD, and hypertension presents complaining of shortness of breath and nausea, generalized fatigue and chills for 2 days. He thinks it has been from being out in the heat. Denies any fever, chest pain, vomiting, abdominal pain, focal weakness or numbness. In the emergency department his saturation was in mid 80s on arrival with auditory wheezing and tachypnea. He was placed on 4 liters of NC and saturating in the low 90. He does not use oxygen at home. He also mentioned 2 days ago, he came home and was sitting in a chair and was taking his shoes off when he passed out. States he woke up and was still on the chair. This has never happen before. 10/25: Patient intubated secondary to increasing oxygen requirements, altered mental status. Discussed with son. Somewhat hypertensive post intubation. 10/26: Placed on rotaprone bed last evening. Flolan initiated. Saturations improved. Afebrile. Remains on Nimbex drip. 10/27: T max 99.7. Tolerated on not prone position 2 hours yesterday. Tolerating trickle feeds. FiO2 down to 55% 10/28: Tmax 99.9. When unprone for chest x-ray this a.m. desaturated. Currently on 90% FiO2. Actually hypertensive. No bowel movements. Remains paralyzed 10/29: Remains intubated sedated on continuous Prone therapy Except for chest x- ray. Fever 100.8. Panculture requested. Zyvox added. Continue IV sedation with propofol and fentanyl and Versed, neuromuscular paralysis with Nimbex 10/30: Prone cycle changed to 8 hr prone, 1 hr supine from 10/29. Due to hypoxia will continue with same cycle today. Chest x-ray remains unchanged. Patient remains severely hypoxemic FiO2 at 75% PEEP at 16. WBC count worsened to 18. Remains neuromuscularly paralyzed. 10/31: Patient remains critically ill but stable. Oxygen saturation 95% on 55 of FiO2 and PEEP of 16. Reduce PEEP to 14, FiO2 to 50% and start weaning Flolan. Increase supine time to 4 hours, reduce Prone time to 6 hours 11/01: Patient remains intubated sedated critically ill on neuromuscular paralysis. FiO2 reduced to 50, I will attempt PEEP wean gradually to 12 today. Prone/supine cycles will be changed to 6 hours each 11/02: FiO2 remains at 50%, PEEP reduced from 14 to 12 today, TV increased to 600 and RR to 20, in anticipation of discontinuing prone therapy, which will be DCd today. Off Flolan for 2 days 11/03: off pronation. fio2 up to 65% , peep 12. agitation causing desaturation. minimal improvements. 11/04: good diuresis yesterday, but despite that, fio2 persists at 65% and spo2 decreasing to 91% today. no real improvements and some worsening of pulmonary function despite ongoing aggressive therapies. still not safe for SBT given hypoxia. also severely hypertensive this morning. 11/05: continues to diurese well and Cr still at baseline. fio2 at 90% however, and no clinical improvements in mental status or hypoxia. still unsafe for SBT given hypoxemia. off pathway. hypertension under much better control. poor neuro status is concerning. 11/06: Remains severely hypoxemic. FiO2 was 100% PEEP 14. I reduce FiO2 to 90% after increasing PEEP to 16. Developed a flutter with RVR overnight, currently on Cardizem drip. Unable to do SBT due to very high settings 11/07: Remains hypoxemic and but able to wean FiO2 down to 80% with PEEP of 16. Remains unresponsive on sedation. Unable to trach due to his high vent settings and high FiO2. Remains on Cardizem and 15 mg per hour, with rate controlled a flutter. We'll start by mouth Cardizem in an attempt to wean IV Cardizem 11/08: Remains critically ill hypoxic but FiO2 now weaned to 60%, PEEP remains at 16. Very heavily sedated no withdrawal to pain. Will hold all continuos sedation. Sputum culture with Klebsiella sensitive to Rocephin. A flutter persistent, will start IV heparin 11/09 Patient is sedated with Diprivan and intubated, On Cardizem drip 15mg/hr for Aflutter. Heparin drip stated yesterday. 11/10 Patient remains sedated and intubated. On Heparin drip. Persistent fever with Tmax 102.5. ETT was replaced yesterday. 11/11 Patient was placed on Cardizem and amio drips overnight for Afib with RVR. Sedated with Diprivan and intubated. On Heparin drip. T;99.3 this morning. 11/12 Patient remains intubated and sedated with Diprivan. On Cardizem drip 15mg/ hr. Afebrile, Tmax 100.6 11/13 Patient is sedate with Diprivan and intubated. In Afib with RVR now on Amio drip. Tmax 100,4 11/14 Remains intubated sedated with propofol and fentanyl. Afib rate controlled , remains on amiodarone and Cardizem gtt. Fio2 remains high at 70%, PEEP 12. CXR persistent bibasilar infiltrates/effusion 11/15: Currently sedated with propofol and fentanyl drips. Currently in A. fib/ flutter on amiodarone drip and Cardizem drip. PEEP increased to 14. FiO2 65. 11/16: Tmax 100.1. Patient more alert and tachycardic this AM. Adding midazolam gtt for sedation and currently tolerating tube feeding. Positive BM. PEEP to 12. FiO2 75% 11/17: Afebrile. FiO2 down to 60%. PEEP set 12. Multiple tracheostomy hopefully on Saturday. Heart rate better control. 11/18: Afebrile. Discontinuing amiodarone drip today and switching to oral. FiO2 between 60 and 70%. Restarting epoprostenol in attempt to get FiO2 down to 50% for tracheostomy tomorrow 11/19 No events overnight. Sedated with Diprivan, Fentanyl and versed. Still requiring high O2 - on PRVC with PEEP;12 and FIO2 70%. Afebrile. 11/20 Patient remains sedated with Diprivan, versed, Fentanyl and intubated. On PRVC with PEEP: 12, FIO2 50% , sats 88-90%. On Heparin drip. Subjective 11/21: Tmax 99.4. Tolerating tube feeds. Remains on heparin drip. FiO2 down to 55%. PEEP of 10. Eyes open blinks spontaneously. Does squeeze and weakly on left side with encouragement 11/22: Intubated heavily sedated. FiO2 50%, remains on Flolan. PEEP 10. Bumex 1 mg 1 and Diamox 500 mg 1 IV. She will negative balance. Heparinized tube feeds on hold for tracheostomy today at 12. Remains in atrial flutter 11/23 Patient remains sedated with Diprivan, Fentanyl, Versed and intubated. On Heparin drip. For CT guided thoracentesis today. On APRV 11/24 Patient remains sedated and intubated. 20Fr CT placed yesterday for right sided PTX. Spiked fever with T 101.6. Remains on Heparin drip. 11/25 Patient remains intubated with Diprivan, fentanyl and intubated. On PRVC with PEEP: 10, FIO2 50%. Afebrile. Objective Vital Signs Date Time Temp Pulse Resp B/P (MAP) Pulse Ox O2 Delivery O2 Flow Rate FiO2 11/25/16 06:00 81 11/25/16 04:07 97 50 11/25/16 04:00 98.8 16 103/64 (77) 11/24/16 20:24 Ventilator Intake and Output 11/25/16 11/25/16 11/26/16 08:00 16:00 00:00 Intake Total 1025.2 ml Output Total 1580 ml Balance -554.8 ml Result Diagram: 11/25/16 0545 11/25/16 0545 Other Results Laboratory Tests Test 11/24/16 09:05 11/24/16 11:40 11/24/16 19:30 11/24/16 20:30 Blood Gas Puncture Site RT RADIAL Blood Gas Patient Temperature 98.6 Blood Gas HCO3 31 mmol/L Blood Gas Base Excess 6.9 mmol/L Blood Gas Oxygen Saturation 94 % Arterial Blood pH 7.47 Arterial Blood Partial Pressure CO2 43 mmHg Arterial Blood Partial Pressure O2 88 mmHg Arterial Blood Oxygen Content 17.0 Vol % Arterial Blood Carboxyhemoglobin 1.4 % Arterial Blood Methemoglobin 1.2 % Blood Gas Hemoglobin 12.8 G/DL Oxygen Delivery Device VENTILATOR Blood Gas Ventilator Setting PRVC/AC 700/16 Blood Gas Inspired Oxygen 50 % Activated Partial Thromboplast Time 33.6 SEC 104.8 SEC Potassium Level 4.1 MEQ/L Test 11/24/16 22:10 11/25/16 05:45 Activated Partial Thromboplast Time 28.1 SEC 31.0 SEC White Blood Count 14.5 TH/MM3 Red Blood Count 3.93 MIL/MM3 Hemoglobin 12.3 GM/DL Hematocrit 37.2 % Mean Corpuscular Volume 94.7 FL Mean Corpuscular Hemoglobin 31.4 PG Mean Corpuscular Hemoglobin Concent 33.1 % Red Cell Distribution Width 14.6 % Platelet Count 157 TH/MM3 Mean Platelet Volume 7.9 FL Neutrophils (%) (Auto) 90.3 % Lymphocytes (%) (Auto) 3.4 % Monocytes (%) (Auto) 5.6 % Eosinophils (%) (Auto) 0.2 % Basophils (%) (Auto) 0.5 % Neutrophils # (Auto) 13.1 TH/MM3 Lymphocytes # (Auto) 0.5 TH/MM3 Monocytes # (Auto) 0.8 TH/MM3 Eosinophils # (Auto) 0.0 TH/MM3 Basophils # (Auto) 0.1 TH/MM3 CBC Comment AUTO DIFF Differential Total Cells Counted 100 Neutrophils % (Manual) 92 % Band Neutrophils % 1 % Lymphocytes % 1 % Monocytes % 4 % Neutrophils # (Manual) 13.8 TH/MM3 Metamyelocytes 1 % Myelocytes 1 % Nucleated Red Blood Cells 1 /100 WBC Differential Comment FINAL DIFF MANUAL Platelet Estimate NORMAL Platelet Morphology Comment NORMAL Red Cell Morphology Comment NORMAL Blood Urea Nitrogen 14 MG/DL Creatinine 0.32 MG/DL Random Glucose 177 MG/DL Calcium Level 8.0 MG/DL Phosphorus Level 2.0 MG/DL Magnesium Level 1.8 MG/DL Sodium Level 136 MEQ/L Potassium Level 3.9 MEQ/L Chloride Level 96 MEQ/L Carbon Dioxide Level 31.6 MEQ/L Anion Gap 8 MEQ/L Estimat Glomerular Filtration Rate 288 ML/MIN Imaging Last Impressions Chest X-Ray 11/24/16 0000 Signed Impressions: Service Date/Time: Thursday, November 24, 2016 08:00 - CONCLUSION: Stable lines and tubes. The right pneumothorax is no longer visualized. There is overall slight increase within the right basilar airspace consolidation and pleural fluid. Small left-sided pleural fusion and overlying atelectasis is stable. Rose Nicole MD Lower Extremity Ultrasound 11/09/16 0000 Signed Impressions: Service Date/Time: Wednesday, November 09, 2016 14:13 - CONCLUSION: Normal examination. Jayson Manning MD Liver Ultrasound 11/09/16 0000 Signed Impressions: Service Date/Time: Wednesday, November 09, 2016 13:58 - CONCLUSION: Sono dense liver without duct dilatation. 4 mm common duct. Ward Kim MD FACR Chest CT 11/06/16 0000 Signed Impressions: Service Date/Time: Sunday, November 06, 2016 11:24 - CONCLUSION: 1. Dense bilateral posterior lower lobe airspace consolidation consistent with aspiration versus less likely pneumonia. 2. Linear consolidation in the right middle lobe consistent with atelectasis versus aspiration. 3. Trace left and small right pleural effusions. 4. Support lines and tubes in good position. 5. Prominent coronary artery calcifications. Nico Vaughan MD Head CT 11/05/16 0000 Signed Impressions: Service Date/Time: Saturday, November 05, 2016 21:43 - CONCLUSION: 1. No acute intracranial abnormalities. Pansinus fluid opacification. Cristofer De Santiago MD Abdomen X-Ray 10/29/16 0600 Signed Impressions: Service Date/Time: Saturday, October 29, 2016 04:41 - CONCLUSION: Nonspecific , nonobstructive bowel gas pattern. No evidence of free air. Jayson Taylor MD Carotid Artery Ultrasound 10/25/16 0000 Signed Impressions: Service Date/Time: September 08:27 - CONCLUSION: Mild to moderate plaque in both carotid systems with less than 40%% diameter stenosis by velocity criteria. Jhonathan Dietz MD CT Angiography 10/25/16 0000 Signed Impressions: Service Date/Time: , October 25, 2016 06:12 - CONCLUSION: 1. Negative for pulmonary embolism. 2. There is a fairly large area of masslike consolidation in the medial right lung involving posterior segment right upper lobe and medial aspect of right lower lobe. There is associated right hilar and mediastinal adenopathy measuring up to 2.1 cm. Differential diagnosis includes pneumonia or underlying lung neoplasm. Close followup imaging recommended after treatment for pneumonia, to assess for underlying mass. Cristofer De Santiago MD Objective Remarks GENERAL: 56-year-old male, critically ill orotracheally intubated, heavily sedated SKIN: Warm and dry. Positive intertrigo HEAD: Atraumatic. Normocephalic. EYES: Pupils equal and round about 3 mm bilaterally and reactive. No scleral icterus. No injection or drainage. ENT: No nasal bleeding or discharge. Orotracheally intubated NECK: Trachea midline. No JVD. CARDIOVASCULAR: Atrial fibrillation rate controlled, IR. S1, S2 no S4. Diminished heart sounds. Without murmur, clicks, or rubs RESPIRATORY: Bilateral wheezes and rhonchi appreciated. Diminished. GASTROINTESTINAL: Abdomen soft, obese. Hypoactive bowel sounds appreciated MUSCULOSKELETAL: Extremities with trace lower extremity bilateral edema. No obvious deformities. NEUROLOGICAL: Withdraws to pain. Opens eyes intermittently. Positive gag. Positive corneal reflex. (Weakly follows commands by squeezing hands left greater than right side to Dr. Story 11/21/16 on sedation vacation) Date of Insertion: Nov 16, 2016 Line: PICC Side: Left Location: Antecubital A/P Assessment and Plan Neuro/Psych: CIM/SHEFALI s/p Neuromuscular paralysis for Prone therapy Agitated Delirium, Metabolic Encephalopathy Syncope On propofol,,Fentanyl for sedation and vent synchrony. Goal of RASS -2 ,Daily sedation vacation Neuro is following-Dr. Rdz recommended MRI brain once stable prn hydromorphone for breakthrough. Haloperidol 5mg iv q4h prn for agitation. Brain CT on admission revealed no acute intracranial findings, CT brain 11/05- no acute findings. opacification of sinuses. Carotid ultrasound less than 50% stenosis bilaterally EEG 11/20: No seizure activity. EEG 11/09: severe encephalopathy PT/OT for range of motion CV: Atrial fib/ flutter with RVR Hypertension- On Amiodarone 400mg Q12, Digoxin 0.125 mg daily(Dig. level 0.8 on 11/22) On PO Cardizem 90 mg PO q6hr, Lopressor 50mg Q6, Clonidine 0.2mg Q8 for hypertension and Atrial fib/flutter IV heparin for anticoagulation Repeat echo with bubble study: 11/22: No shunt seen Echo 10/25 EF 60-65% Resp: Acute hypoxemic Respiratory failure - severe and persistent. Spontaneous Right sided PTX 2nd barotrauma Severe ARDS COPD exacerbation Pneumonia most likely community-acquired Obesity hypoventilation syndrome Tobacco use disorder On PRVC RR 16, TV 700, IT: 1.3, PEEP: 10, FIO2 50%.Intubated 10/25 Continue with vent support keep sat >92% Decrease FIO2 as daniel s/p 20Fr CT placed for right PTX 11/23, monitor CT drainage- Drained 260ml overnight. Gen surg consulted for trach placement CT pulmonary angio revealed no pulmonary embolus. Masslike consolidation in the posterior right upper lobe and medial right lower lobe. Lymphadenopathy to 1 cm right hilum and subcarinal. Atelectasis left lower lobe. Discontinued Prone therapy 11/02/16. Epoprostenol restarted 11/18 50,000 ng/ml 8 ml/hr nebs, weaning off Flolan Albuterol/ipratropium every 4 hours with albuterol every 2 hours when necessary dyspnea. Ventilator bundle, Budesonide 0.5 mg aerosols twice a day. Methylprednisolone 40 mg IV daily Pulmonary/Dr. Wynne following GI: Morbid Obesity Elevated LFT's Monitor LFT, US liver: No ductal dilatation Continue tube feeds-Vital high protein 1.5 currently at 40ml/hr Famotidine 20 milligrams mg twice a day for GI prophylaxis /renal: Monitor renal function, I/O's, electrolytes replacement per protocol. Will need Phos replacement today Endo: Hyperglycemia- SSI Q4 for glycemic control. . Heme: Normocytic anemia Monitor CBC, coags- patient is on heparin drip. ID: Severe sepsis Pneumonia On Vanco and Zosyn, Monitor for signs of infections ( Fever, WBC) WBC is trending down. Sputum cx 11/23: GNR s/p (ceftriaxone and Diflucan course). ID is following-Dr. Patel s/p ceftriaxone 11/02-11/09 for Enterobacter pneumonia. Repeat sputum Klebsiella sensitive to Rocephin 10/29/16-Enterobacter in sputum, 11/06/16, 11/10 sputum- Klebsiella Urine Legionella and pneumococcal antigens negative and influenza negative C-diff PCR is negative Access RUE PICC placed 11/05 through 11/15 replaced 11/16 with left upper extremity PICC Prophylaxis - GI, famotidine - DVT - IV heparin gtt 11/09 Doppler US LE negative for DVT Palliative care is following Critical Care: The total critical care time was 30 minutes. Time to perform other separately billable procedures was not included in the critical care time. Chepe Carney MD Nov 25, 2016 07:49
[2016-11-25] MEDS: RESP: BUDESONIDE 0.5 MG/2 ML NEB NEB SCH ×2 (08:06→19:35)
[2016-11-25] MEDS: VANCOMYCIN INJ 2,500 MG in SODIUM CHLORID 0.9% 500 ML INJ 500 ML IV SCH ×2 (08:26→20:28)
[2016-11-25] MEDS: CHLORHEXIDINE 0.12% (ORAL KIT) 15 ML CUP MT SCH ×2 (08:26→20:27)
[2016-11-25] MEDS: methylPREDNISolone SOD SUCC 40 MG/1 ML VIAL IV SCH (08:26)
[2016-11-25] MEDS: FAMOTIDINE 20 MG TAB NG SCH ×2 (08:27→20:25)
[2016-11-25] MEDS: DIGOXIN 0.125 MG TAB PO SCH (08:27)
[2016-11-25] MEDS: SODIUM CHLORIDE 0.9% FLUSH 10 ML FLUSH SCH ×2 (08:27→20:27)
[2016-11-25] MEDS: ARTIFICIAL TEARS OPTH OINT 3.5 APPLIC/3.5 GM TUBO EACH EYE SCH ×2 (08:27→20:28)
[2016-11-25] MEDS: AMIODARONE 200 MG TAB OG-TUBE SCH ×2 (08:27→20:25)
[2016-11-25] MEDS: SODIUM CHLORIDE 0.9% FLUSH 10 ML FLUSH IV FLUSH SCH (08:28)
[2016-11-25] MEDS: SODIUM CHLORIDE 0.9% FLUSH 10 ML FLUSH IVF SCH (08:28)
[2016-11-25] MEDS: HEPARIN 25,000 UNITS-D5W 250 ML - PREMIX IV SCH (08:34)
[2016-11-25] MEDS ORDERED: PHARMACY ORDERED LAB ONE (08:45)
[2016-11-25] MEDS ORDERED: EPOPROSTENOL NEB SOLUTION 10 NG/KG/MIN 100 ML NEB SCH ×2 (10:00)
[2016-11-25 14:57] LABS: APTT (PATIENT) 30.8 SEC (24.3-30.1)
--- NOTE | 2016-11-25 15:22 | HHI.IDPN ---
Subjective Subjective Remarks doing poorly afebrile remains unresponsive remains on vent , FiO2 50% sputum with GPCs and GNBs Antibiotics zosyn vancomycion Allergies: Coded Allergies: No Known Allergies (Unverified , 10/25/16) Objective . Vital Signs Date Time Temp Pulse Resp B/P (MAP) Pulse Ox O2 Delivery O2 Flow Rate FiO2 11/25/16 14:00 99 11/25/16 12:21 90 50 11/25/16 12:00 98.7 83 16 131/82 (98) 87 11/25/16 12:00 74 11/25/16 12:00 50 11/25/16 10:00 75 11/25/16 08:59 94 50 11/25/16 08:00 98.4 74 16 107/67 (80) 94 11/25/16 08:00 50 11/25/16 08:00 75 11/25/16 06:00 81 11/25/16 04:07 97 50 11/25/16 04:00 98.8 75 16 103/64 (77) 94 11/25/16 04:00 50 11/25/16 04:00 110 11/25/16 02:00 101 11/25/16 00:41 97 50 11/25/16 00:00 100 11/25/16 00:00 98.6 100 16 162/78 (106) 97 11/25/16 00:00 50 11/24/16 22:00 101 11/24/16 20:24 96 Ventilator 11/24/16 20:16 98 50 11/24/16 20:00 50 11/24/16 20:00 75 11/24/16 20:00 98.8 76 16 156/67 (96) 96 11/24/16 18:00 100 11/24/16 16:00 100 11/24/16 16:00 50 11/24/16 16:00 98.5 101 16 151/72 (98) 94 11/25/16 11/25/16 11/26/16 15:00 23:00 07:00 Intake Total 1325 ml Balance 1325 ml IV Total 1325 ml . Laboratory Tests Test 11/24/16 04:00 11/25/16 05:45 White Blood Count 17.5 TH/MM3 14.5 TH/MM3 Red Blood Count 4.02 MIL/MM3 3.93 MIL/MM3 Hemoglobin 12.3 GM/DL 12.3 GM/DL Hematocrit 37.9 % 37.2 % Mean Corpuscular Volume 94.3 FL 94.7 FL Mean Corpuscular Hemoglobin 30.7 PG 31.4 PG Mean Corpuscular Hemoglobin Concent 32.5 % 33.1 % Red Cell Distribution Width 14.6 % 14.6 % Platelet Count 154 TH/MM3 157 TH/MM3 Mean Platelet Volume 8.2 FL 7.9 FL Neutrophils (%) (Auto) 91.2 % 90.3 % Lymphocytes (%) (Auto) 3.0 % 3.4 % Monocytes (%) (Auto) 5.5 % 5.6 % Eosinophils (%) (Auto) 0.1 % 0.2 % Basophils (%) (Auto) 0.2 % 0.5 % Neutrophils # (Auto) 16.0 TH/MM3 13.1 TH/MM3 Lymphocytes # (Auto) 0.5 TH/MM3 0.5 TH/MM3 Monocytes # (Auto) 1.0 TH/MM3 0.8 TH/MM3 Eosinophils # (Auto) 0.0 TH/MM3 0.0 TH/MM3 Basophils # (Auto) 0.0 TH/MM3 0.1 TH/MM3 CBC Comment AUTO DIFF AUTO DIFF Differential Total Cells Counted 100 100 Neutrophils % (Manual) 92 % 92 % Band Neutrophils % 2 % 1 % Lymphocytes % 2 % 1 % Monocytes % 3 % 4 % Neutrophils # (Manual) 16.6 TH/MM3 13.8 TH/MM3 Metamyelocytes 1 % 1 % Differential Comment FINAL DIFF MANUAL FINAL DIFF MANUAL Platelet Estimate LOW NORMAL Platelet Morphology Comment NORMAL NORMAL Red Cell Morphology Comment NORMAL NORMAL Myelocytes 1 % Nucleated Red Blood Cells 1 /100 WBC Laboratory Tests Test 11/24/16 04:00 11/24/16 20:30 11/25/16 05:45 Blood Urea Nitrogen 18 MG/DL 14 MG/DL Creatinine 0.27 MG/DL 0.32 MG/DL Random Glucose 150 MG/DL 177 MG/DL Calcium Level 8.1 MG/DL 8.0 MG/DL Sodium Level 136 MEQ/L 136 MEQ/L Potassium Level 3.2 MEQ/L 4.1 MEQ/L 3.9 MEQ/L Chloride Level 94 MEQ/L 96 MEQ/L Carbon Dioxide Level 33.2 MEQ/L 31.6 MEQ/L Anion Gap 9 MEQ/L 8 MEQ/L Estimat Glomerular Filtration Rate 350 ML/MIN 288 ML/MIN Phosphorus Level 2.0 MG/DL Magnesium Level 1.8 MG/DL Microbiology Date/Time Source Procedure Growth Status 11/23/16 19:26 Blood Peripheral Aerobic Blood Culture - Preliminary NO GROWTH IN 2 DAYS Resulted 11/23/16 19:26 Blood Peripheral Anaerobic Blood Culture - Preliminary NO GROWTH IN 2 DAYS Resulted 11/23/16 14:50 Blood Peripheral Aerobic Blood Culture - Preliminary NO GROWTH IN 2 DAYS Resulted 11/23/16 14:50 Blood Peripheral Anaerobic Blood Culture - Preliminary NO GROWTH IN 2 DAYS Resulted 11/23/16 14:50 Sputum Endotracheal Gram Stain - Final Resulted 11/23/16 14:50 Sputum Culture - Preliminary Gram Negative Louis Resulted Imaging Last Impressions Chest X-Ray 11/24/16 0000 Signed Impressions: Service Date/Time: Thursday, November 24, 2016 08:00 - CONCLUSION: Stable lines and tubes. The right pneumothorax is no longer visualized. There is overall slight increase within the right basilar airspace consolidation and pleural fluid. Small left-sided pleural fusion and overlying atelectasis is stable. Rose Nicole MD Lower Extremity Ultrasound 11/09/16 0000 Signed Impressions: Service Date/Time: Wednesday, November 09, 2016 14:13 - CONCLUSION: Normal examination. Jayson Manning MD Liver Ultrasound 11/09/16 0000 Signed Impressions: Service Date/Time: Wednesday, November 09, 2016 13:58 - CONCLUSION: Sono dense liver without duct dilatation. 4 mm common duct. Ward Kim MD FACR Chest CT 11/06/16 0000 Signed Impressions: Service Date/Time: Sunday, November 06, 2016 11:24 - CONCLUSION: 1. Dense bilateral posterior lower lobe airspace consolidation consistent with aspiration versus less likely pneumonia. 2. Linear consolidation in the right middle lobe consistent with atelectasis versus aspiration. 3. Trace left and small right pleural effusions. 4. Support lines and tubes in good position. 5. Prominent coronary artery calcifications. Nico Vaughan MD Head CT 11/05/16 0000 Signed Impressions: Service Date/Time: Saturday, November 05, 2016 21:43 - CONCLUSION: 1. No acute intracranial abnormalities. Pansinus fluid opacification. Cristofer De Santiago MD Abdomen X-Ray 10/29/16 0600 Signed Impressions: Service Date/Time: Saturday, October 29, 2016 04:41 - CONCLUSION: Nonspecific , nonobstructive bowel gas pattern. No evidence of free air. Jayson Taylor MD Carotid Artery Ultrasound 10/25/16 0000 Signed Impressions: Service Date/Time: September 08:27 - CONCLUSION: Mild to moderate plaque in both carotid systems with less than 40%% diameter stenosis by velocity criteria. Jhonathan Dietz MD CT Angiography 10/25/16 0000 Signed Impressions: Service Date/Time: September 06:12 - CONCLUSION: 1. Negative for pulmonary embolism. 2. There is a fairly large area of masslike consolidation in the medial right lung involving posterior segment right upper lobe and medial aspect of right lower lobe. There is associated right hilar and mediastinal adenopathy measuring up to 2.1 cm. Differential diagnosis includes pneumonia or underlying lung neoplasm. Close followup imaging recommended after treatment for pneumonia, to assess for underlying mass. Cristofer De Santiago MD Physical Exam CONSTITUTIONAL/GENERAL: This is a morbidly obese patient, sedated int'd on vent TUBES/LINES/DRAINS: SKIN: No jaundice, rashes, or lesions. Skin temperature appropriate. Not diaphoretic. CARDIOVASCULAR: Afib on the monitor tachycardia without murmurs, gallops, or rubs. No JVD. Peripheral pulses symmetric. RESPIRATORY/CHEST: Symmetric, unlabored respirations. Diffuserhonchi to auscultation. R sided CT in place GASTROINTESTINAL: Abdomen soft, ? tender (grimacing to deep palpation), mildly distended. No hepato-splenomegaly, or palpable masses. No guarding. Bowel sounds present. Dignisheilld in pl,jessica with liquid brown stool GENITOURINARY: Without palpable bladder distension. Santiago catheter in place with somewhat cloudy urine MUSCULOSKELETAL: Extremities without clubbing, cyanosis, Tight edema, 3+ NEUROLOGICAL: opens eyes to voice and tactale stimulation PSYCHIATRIC: unable to assess Assessment & Plan Remarks PNA, Kleb oneumo - failrly sensitive ARDS Acute VDRF, failure to wean - also not a candidae for trach untill vent settings are lower - getting worse New R sided PTX sp CT Abx associated diarrhea, C.diff negative Abnormal UA, CANDIDURIA Persiastent leukocytosis -worse New fever Worsening resp status Sputum with GNB and GPC REC's: cont zosyn, vanco fu repeat blood, sputum clx fu clinically fu WBC and temps Discussed Condition With RN dw family @ b/s Mariana Patel MD Nov 25, 2016 15:22
[2016-11-26] VITALS (22 sets, daily range): BP systolic 11–161; BP diastolic 67–91; PULSE 72–146; RESP 16–22; TEMP 98.1–99.2; O2SAT 89–98
[2016-11-26] MEDS: RESP: ALBUTEROL 2.5 MG/IPRATROPIUM 0.5 MG NEB (SCH) NEB ×2 (00:05→03:35)
[2016-11-26] MEDS: PROPOFOL 1000 MG/100 ML IV PRN ×9 (00:45→21:32)
[2016-11-26] MEDS: fentaNYL DRIP 250 ML IV PRN ×2 (02:30→14:06)
[2016-11-26] MEDS: CHLORHEXIDINE GLUCONATE 2 % 1 PACK (2 CLOTHS) TOP SCH (04:00)
[2016-11-26] MEDS: INSULIN NovoLIN REGULAR SUPPLEMENTAL SCALE SQ SCH ×5 (04:23→20:00)
[2016-11-26] MEDS: PIPERACIL-TAZO 4.5 GM PREMIX 100 ML IV SCH ×4 (04:24→23:56)
[2016-11-26 04:53] LABS: AUTOMATED NEUTROPHIL # 15.7 TH/MM3 (1.8-7.7); BASOPHIL # 0.1 TH/MM3 (0-0.2); BASOPHIL % 0.8 % (0.0-2.0); EOSINOPHIL % 0.1 % (0.0-4.0); HEMATOCRIT 38.7 % (39.0-51.0); LYMPHOCYTE # 0.5 TH/MM3 (1.0-4.8); MEAN CELL VOLUME 94.5 FL (80.0-100.0); MEAN CORPUSCULAR HEMOGLOBIN 30.9 PG (27.0-34.0); MEAN CORPUSCULAR HGB CONC 32.8 % (32.0-36.0); MONO % 5.8 % (0.0-8.0); NEUT % 90.3 % (16.0-70.0); PLATELET COUNT 171 TH/MM3 (150-450); RED CELL DISTRIBUTION WIDTH 14.4 % (11.6-17.2); WHITE BLOOD COUNT 17.4 TH/MM3 (4.0-11.0)
[2016-11-26] MEDS: HEPARIN 25,000 UNITS-D5W 250 ML - PREMIX IV SCH ×3 (04:53→19:28)
[2016-11-26 04:56] LABS: HEMO FLAGS AUTO DIFF
[2016-11-26] MEDS: cloNIDine HCL 0.2 MG TAB OG-TUBE SCH ×3 (05:00→21:32)
[2016-11-26] MEDS: DILTIAZEM HCL 90 MG TAB PO SCH ×3 (05:00→16:20)
[2016-11-26] MEDS: METOPROLOL TARTRATE 50 MG TAB PO SCH ×3 (05:00→16:20)
[2016-11-26 05:01] LABS: APTT (PATIENT) 32.9 SEC (24.3-30.1); PROTHROMBIN TIME - PATIENT 10.7 SEC (9.8-11.6)
[2016-11-26 05:15] LABS: BICARBONATE 31.9 MEQ/L (21.0-32.0); MAGNESIUM 1.7 MG/DL (1.5-2.5); POTASSIUM 3.7 MEQ/L (3.5-5.1)
[2016-11-26 05:32] LABS: BANDS 19 % (0-6); METAMYELOCYTES 1 % (0-1); NEUTROPHIL # MANUAL DIFF 15.5 TH/MM3 (1.8-7.7); PLATELET ESTIMATE SMEAR NORMAL (NORMAL); PLATELET MORPHOLOGY NORMAL (NORMAL); POLYS (SEG NEUTROPHILS) 69 % (16-70); SCAN/DIFF FINAL DIFF MANUAL; WBC DIFF SAMPLE 100
--- NOTE | 2016-11-26 07:48 | HHI.CCPN ---
Subjective Remarks/Hospital Course 56-year-old very pleasant gentleman with past medical history of COPD, and hypertension presents complaining of shortness of breath and nausea, generalized fatigue and chills for 2 days. He thinks it has been from being out in the heat. Denies any fever, chest pain, vomiting, abdominal pain, focal weakness or numbness. In the emergency department his saturation was in mid 80s on arrival with auditory wheezing and tachypnea. He was placed on 4 liters of NC and saturating in the low 90. He does not use oxygen at home. He also mentioned 2 days ago, he came home and was sitting in a chair and was taking his shoes off when he passed out. States he woke up and was still on the chair. This has never happen before. 10/25: Patient intubated secondary to increasing oxygen requirements, altered mental status. Discussed with son. Somewhat hypertensive post intubation. 10/26: Placed on rotaprone bed last evening. Flolan initiated. Saturations improved. Afebrile. Remains on Nimbex drip. 10/27: T max 99.7. Tolerated on not prone position 2 hours yesterday. Tolerating trickle feeds. FiO2 down to 55% 10/28: Tmax 99.9. When unprone for chest x-ray this a.m. desaturated. Currently on 90% FiO2. Actually hypertensive. No bowel movements. Remains paralyzed 10/29: Remains intubated sedated on continuous Prone therapy Except for chest x- ray. Fever 100.8. Panculture requested. Zyvox added. Continue IV sedation with propofol and fentanyl and Versed, neuromuscular paralysis with Nimbex 10/30: Prone cycle changed to 8 hr prone, 1 hr supine from 10/29. Due to hypoxia will continue with same cycle today. Chest x-ray remains unchanged. Patient remains severely hypoxemic FiO2 at 75% PEEP at 16. WBC count worsened to 18. Remains neuromuscularly paralyzed. 10/31: Patient remains critically ill but stable. Oxygen saturation 95% on 55 of FiO2 and PEEP of 16. Reduce PEEP to 14, FiO2 to 50% and start weaning Flolan. Increase supine time to 4 hours, reduce Prone time to 6 hours 11/01: Patient remains intubated sedated critically ill on neuromuscular paralysis. FiO2 reduced to 50, I will attempt PEEP wean gradually to 12 today. Prone/supine cycles will be changed to 6 hours each 11/02: FiO2 remains at 50%, PEEP reduced from 14 to 12 today, TV increased to 600 and RR to 20, in anticipation of discontinuing prone therapy, which will be DCd today. Off Flolan for 2 days 11/03: off pronation. fio2 up to 65% , peep 12. agitation causing desaturation. minimal improvements. 11/04: good diuresis yesterday, but despite that, fio2 persists at 65% and spo2 decreasing to 91% today. no real improvements and some worsening of pulmonary function despite ongoing aggressive therapies. still not safe for SBT given hypoxia. also severely hypertensive this morning. 11/05: continues to diurese well and Cr still at baseline. fio2 at 90% however, and no clinical improvements in mental status or hypoxia. still unsafe for SBT given hypoxemia. off pathway. hypertension under much better control. poor neuro status is concerning. 11/06: Remains severely hypoxemic. FiO2 was 100% PEEP 14. I reduce FiO2 to 90% after increasing PEEP to 16. Developed a flutter with RVR overnight, currently on Cardizem drip. Unable to do SBT due to very high settings 11/07: Remains hypoxemic and but able to wean FiO2 down to 80% with PEEP of 16. Remains unresponsive on sedation. Unable to trach due to his high vent settings and high FiO2. Remains on Cardizem and 15 mg per hour, with rate controlled a flutter. We'll start by mouth Cardizem in an attempt to wean IV Cardizem 11/08: Remains critically ill hypoxic but FiO2 now weaned to 60%, PEEP remains at 16. Very heavily sedated no withdrawal to pain. Will hold all continuos sedation. Sputum culture with Klebsiella sensitive to Rocephin. A flutter persistent, will start IV heparin 11/09 Patient is sedated with Diprivan and intubated, On Cardizem drip 15mg/hr for Aflutter. Heparin drip stated yesterday. 11/10 Patient remains sedated and intubated. On Heparin drip. Persistent fever with Tmax 102.5. ETT was replaced yesterday. 11/11 Patient was placed on Cardizem and amio drips overnight for Afib with RVR. Sedated with Diprivan and intubated. On Heparin drip. T;99.3 this morning. 11/12 Patient remains intubated and sedated with Diprivan. On Cardizem drip 15mg/ hr. Afebrile, Tmax 100.6 11/13 Patient is sedate with Diprivan and intubated. In Afib with RVR now on Amio drip. Tmax 100,4 11/14 Remains intubated sedated with propofol and fentanyl. Afib rate controlled , remains on amiodarone and Cardizem gtt. Fio2 remains high at 70%, PEEP 12. CXR persistent bibasilar infiltrates/effusion 11/15: Currently sedated with propofol and fentanyl drips. Currently in A. fib/ flutter on amiodarone drip and Cardizem drip. PEEP increased to 14. FiO2 65. 11/16: Tmax 100.1. Patient more alert and tachycardic this AM. Adding midazolam gtt for sedation and currently tolerating tube feeding. Positive BM. PEEP to 12. FiO2 75% 11/17: Afebrile. FiO2 down to 60%. PEEP set 12. Multiple tracheostomy hopefully on Saturday. Heart rate better control. 11/18: Afebrile. Discontinuing amiodarone drip today and switching to oral. FiO2 between 60 and 70%. Restarting epoprostenol in attempt to get FiO2 down to 50% for tracheostomy tomorrow 11/19 No events overnight. Sedated with Diprivan, Fentanyl and versed. Still requiring high O2 - on PRVC with PEEP;12 and FIO2 70%. Afebrile. 11/20 Patient remains sedated with Diprivan, versed, Fentanyl and intubated. On PRVC with PEEP: 12, FIO2 50% , sats 88-90%. On Heparin drip. Subjective 11/21: Tmax 99.4. Tolerating tube feeds. Remains on heparin drip. FiO2 down to 55%. PEEP of 10. Eyes open blinks spontaneously. Does squeeze and weakly on left side with encouragement 11/22: Intubated heavily sedated. FiO2 50%, remains on Flolan. PEEP 10. Bumex 1 mg 1 and Diamox 500 mg 1 IV. She will negative balance. Heparinized tube feeds on hold for tracheostomy today at 12. Remains in atrial flutter 11/23 Patient remains sedated with Diprivan, Fentanyl, Versed and intubated. On Heparin drip. For CT guided thoracentesis today. On APRV 11/24 Patient remains sedated and intubated. 20Fr CT placed yesterday for right sided PTX. Spiked fever with T 101.6. Remains on Heparin drip. 11/25 Patient remains intubated with Diprivan, fentanyl and intubated. On PRVC with PEEP: 10, FIO2 50%. Afebrile. 11/26 Patient is sedated with Diprivan, Fentanyl and intubated. Afebrile. On Heparin drip. On PRVC with PEEP: 10, FIO2 60% Objective Vital Signs Date Time Temp Pulse Resp B/P (MAP) Pulse Ox O2 Delivery O2 Flow Rate FiO2 11/26/16 06:00 72 11/26/16 04:16 92 60 11/26/16 04:00 98.4 17 1172 (52) 11/24/16 20:24 Ventilator Intake and Output 11/26/16 11/26/16 11/27/16 08:00 16:00 00:00 Intake Total 1482 ml Output Total 1120 ml Balance 362 ml Result Diagram: 11/26/16 0430 11/26/16 0430 Other Results Laboratory Tests Test 11/25/16 08:20 11/25/16 12:55 11/25/16 21:50 11/26/16 04:30 Vancomycin Level Trough 12.3 MCG/ML Activated Partial Thromboplast Time 30.8 SEC 34.0 SEC 32.9 SEC White Blood Count 17.4 TH/MM3 Red Blood Count 4.10 MIL/MM3 Hemoglobin 12.7 GM/DL Hematocrit 38.7 % Mean Corpuscular Volume 94.5 FL Mean Corpuscular Hemoglobin 30.9 PG Mean Corpuscular Hemoglobin Concent 32.8 % Red Cell Distribution Width 14.4 % Platelet Count 171 TH/MM3 Mean Platelet Volume 7.8 FL Neutrophils (%) (Auto) 90.3 % Lymphocytes (%) (Auto) 3.0 % Monocytes (%) (Auto) 5.8 % Eosinophils (%) (Auto) 0.1 % Basophils (%) (Auto) 0.8 % Neutrophils # (Auto) 15.7 TH/MM3 Lymphocytes # (Auto) 0.5 TH/MM3 Monocytes # (Auto) 1.0 TH/MM3 Eosinophils # (Auto) 0.0 TH/MM3 Basophils # (Auto) 0.1 TH/MM3 CBC Comment AUTO DIFF Differential Total Cells Counted 100 Neutrophils % (Manual) 69 % Band Neutrophils % 19 % Lymphocytes % 1 % Monocytes % 10 % Neutrophils # (Manual) 15.5 TH/MM3 Metamyelocytes 1 % Differential Comment FINAL DIFF MANUAL Platelet Estimate NORMAL Platelet Morphology Comment NORMAL Prothrombin Time 10.7 SEC Prothromb Time International Ratio 1.0 RATIO Blood Urea Nitrogen 11 MG/DL Creatinine 0.25 MG/DL Random Glucose 184 MG/DL Calcium Level 7.8 MG/DL Phosphorus Level 1.9 MG/DL Magnesium Level 1.7 MG/DL Sodium Level 134 MEQ/L Potassium Level 3.7 MEQ/L Chloride Level 95 MEQ/L Carbon Dioxide Level 31.9 MEQ/L Anion Gap 7 MEQ/L Estimat Glomerular Filtration Rate 383 ML/MIN Imaging Last Impressions Chest X-Ray 11/24/16 0000 Signed Impressions: Service Date/Time: Thursday, November 24, 2016 08:00 - CONCLUSION: Stable lines and tubes. The right pneumothorax is no longer visualized. There is overall slight increase within the right basilar airspace consolidation and pleural fluid. Small left-sided pleural fusion and overlying atelectasis is stable. Rose Nicole MD Lower Extremity Ultrasound 11/09/16 0000 Signed Impressions: Service Date/Time: Wednesday, November 09, 2016 14:13 - CONCLUSION: Normal examination. Jayson Manning MD Liver Ultrasound 11/09/16 0000 Signed Impressions: Service Date/Time: Wednesday, November 09, 2016 13:58 - CONCLUSION: Sono dense liver without duct dilatation. 4 mm common duct. Ward Kim MD FACR Chest CT 11/06/16 0000 Signed Impressions: Service Date/Time: Sunday, November 06, 2016 11:24 - CONCLUSION: 1. Dense bilateral posterior lower lobe airspace consolidation consistent with aspiration versus less likely pneumonia. 2. Linear consolidation in the right middle lobe consistent with atelectasis versus aspiration. 3. Trace left and small right pleural effusions. 4. Support lines and tubes in good position. 5. Prominent coronary artery calcifications. Nico Vaughan MD Head CT 11/05/16 0000 Signed Impressions: Service Date/Time: Saturday, November 05, 2016 21:43 - CONCLUSION: 1. No acute intracranial abnormalities. Pansinus fluid opacification. Cristofer De Santiago MD Abdomen X-Ray 10/29/16 0600 Signed Impressions: Service Date/Time: Saturday, October 29, 2016 04:41 - CONCLUSION: Nonspecific , nonobstructive bowel gas pattern. No evidence of free air. Jayson Taylor MD Carotid Artery Ultrasound 10/25/16 0000 Signed Impressions: Service Date/Time: September 08:27 - CONCLUSION: Mild to moderate plaque in both carotid systems with less than 40%% diameter stenosis by velocity criteria. Jhonathan Dietz MD CT Angiography 10/25/16 0000 Signed Impressions: Service Date/Time: , October 25, 2016 06:12 - CONCLUSION: 1. Negative for pulmonary embolism. 2. There is a fairly large area of masslike consolidation in the medial right lung involving posterior segment right upper lobe and medial aspect of right lower lobe. There is associated right hilar and mediastinal adenopathy measuring up to 2.1 cm. Differential diagnosis includes pneumonia or underlying lung neoplasm. Close followup imaging recommended after treatment for pneumonia, to assess for underlying mass. Cristofer De Santiago MD Objective Remarks GENERAL: 56-year-old male, critically ill orotracheally intubated, heavily sedated SKIN: Warm and dry. Positive intertrigo HEAD: Atraumatic. Normocephalic. EYES: Pupils equal and round about 3 mm bilaterally and reactive. No scleral icterus. No injection or drainage. ENT: No nasal bleeding or discharge. Orotracheally intubated NECK: Trachea midline. No JVD. CARDIOVASCULAR: Atrial fibrillation rate controlled, IR. S1, S2 no S4. Diminished heart sounds. Without murmur, clicks, or rubs RESPIRATORY: Bilateral wheezes and rhonchi appreciated. Diminished. GASTROINTESTINAL: Abdomen soft, obese. Hypoactive bowel sounds appreciated MUSCULOSKELETAL: Extremities with trace lower extremity bilateral edema. No obvious deformities. NEUROLOGICAL: Withdraws to pain. Opens eyes intermittently. Positive gag. Positive corneal reflex. (Weakly follows commands by squeezing hands left greater than right side to Dr. Story 11/21/16 on sedation vacation) Date of Insertion: Nov 16, 2016 Line: PICC Side: Left Location: Antecubital A/P Assessment and Plan Neuro/Psych: CIM/SHEFALI s/p Neuromuscular paralysis for Prone therapy Agitated Delirium, Metabolic Encephalopathy Syncope On propofol,,Fentanyl for sedation and vent synchrony. Goal of RASS -2 ,Daily sedation vacation Neuro is following-Dr. Rdz recommended MRI brain once stable prn hydromorphone for breakthrough. Haloperidol 5mg iv q4h prn for agitation. Brain CT on admission revealed no acute intracranial findings, CT brain 11/05- no acute findings. opacification of sinuses. Carotid ultrasound less than 50% stenosis bilaterally EEG 11/20: No seizure activity. EEG 11/09: severe encephalopathy PT/OT for range of motion CV: Atrial fib/ flutter with RVR Hypertension- On Amiodarone 400mg Q12, Digoxin 0.125 mg daily(Dig. level 0.8 on 11/22) check Dig level On PO Cardizem 90 mg PO q6hr, Lopressor 50mg Q6, Clonidine 0.2mg Q8 for hypertension and Atrial fib/flutter IV heparin for anticoagulation Repeat echo with bubble study: 11/22: No shunt seen Echo 10/25 EF 60-65% Resp: Acute hypoxemic Respiratory failure - severe and persistent. Spontaneous Right sided PTX 2nd barotrauma Severe ARDS COPD exacerbation Pneumonia most likely community-acquired Obesity hypoventilation syndrome Tobacco use disorder On PRVC RR 16, TV 700, IT: 1.3, PEEP: 10, FIO2 60%.Intubated 10/25 Continue with vent support keep sat >92% Decrease FIO2 as daniel s/p 20Fr CT placed for right PTX 11/23, monitor CT drainage- Drained 120ml overnight. Gen surg consulted for trach placement-Dr. Martin CT pulmonary angio revealed no pulmonary embolus. Masslike consolidation in the posterior right upper lobe and medial right lower lobe. Lymphadenopathy to 1 cm right hilum and subcarinal. Atelectasis left lower lobe. Discontinued Prone therapy 11/02/16. Epoprostenol restarted 11/18 50,000 ng/ml 8 ml/hr nebs, weaning off Flolan Albuterol/ipratropium every 4 hours with albuterol every 2 hours when necessary dyspnea. Ventilator bundle, Budesonide 0.5 mg aerosols twice a day. Methylprednisolone 40 mg IV daily Pulmonary/Dr. Wynne following GI: Morbid Obesity Elevated LFT's Monitor LFT, US liver: No ductal dilatation Continue tube feeds-Vital high protein 1.5 at 40ml/hr Famotidine 20 milligrams mg twice a day for GI prophylaxis /renal: Monitor renal function, I/O's, electrolytes replacement per protocol. Will need Phos replacement today. Diurese with Bumex 1mg x1 Endo: Hyperglycemia- SSI Q4 for glycemic control. . Heme: Normocytic anemia Monitor CBC, coags- patient is on heparin drip. ID: Severe sepsis Pneumonia On Vanco and Zosyn, Monitor for signs of infections ( Fever, WBC) Sputum cx 11/23: GNR s/p (ceftriaxone and Diflucan course). ID is following-Dr. Patel s/p ceftriaxone 11/02-11/09 for Enterobacter pneumonia. Repeat sputum Klebsiella sensitive to Rocephin 10/29/16-Enterobacter in sputum, 11/06/16, 11/10 sputum- Klebsiella Urine Legionella and pneumococcal antigens negative and influenza negative C-diff PCR is negative Access RUE PICC placed 11/05 through 11/15 replaced 11/16 with left upper extremity PICC Prophylaxis - GI, famotidine - DVT - IV heparin gtt 11/09 Doppler US LE negative for DVT Palliative care is following Critical Care: The total critical care time was 30 minutes. Time to perform other separately billable procedures was not included in the critical care time. Chepe Carney MD Nov 26, 2016 07:48
[2016-11-26] MEDS: RESP: BUDESONIDE 0.5 MG/2 ML NEB NEB SCH ×2 (08:14→20:32)
[2016-11-26] MEDS: RESP: ALBUTEROL 2.5 MG/IPRATROPIUM 0.5 MG NEB (PRN) NEB (08:14)
[2016-11-26] MEDS ORDERED: BUMETANIDE INJ 1 MG/4 ML VIAL IV PUSH ONE (08:15)
[2016-11-26] MEDS: DIGOXIN 0.125 MG TAB PO SCH (08:34)
[2016-11-26] MEDS: methylPREDNISolone SOD SUCC 40 MG/1 ML VIAL IV SCH (08:34)
[2016-11-26] MEDS: SODIUM CHLORIDE 0.9% FLUSH 10 ML FLUSH IV FLUSH SCH (08:35)
[2016-11-26] MEDS: SODIUM CHLORIDE 0.9% FLUSH 10 ML FLUSH SCH ×2 (08:35→21:33)
[2016-11-26] MEDS: AMIODARONE 200 MG TAB OG-TUBE SCH ×2 (08:35→21:32)
[2016-11-26] MEDS: FAMOTIDINE 20 MG TAB NG SCH ×2 (08:35→21:32)
[2016-11-26] MEDS: ARTIFICIAL TEARS OPTH OINT 3.5 APPLIC/3.5 GM TUBO EACH EYE SCH ×2 (08:36→21:38)
[2016-11-26] MEDS: VANCOMYCIN INJ 2,500 MG in SODIUM CHLORID 0.9% 500 ML INJ 500 ML IV SCH (08:36)
[2016-11-26] MEDS: CHLORHEXIDINE 0.12% (ORAL KIT) 15 ML CUP MT SCH ×2 (08:36→21:33)
[2016-11-26] MEDS: SODIUM CHLORIDE 0.9% FLUSH 10 ML FLUSH IVF SCH (09:00)
[2016-11-26] MEDS ORDERED: DILTIAZEM HCL 25 MG/5 ML VIAL ONE (10:31)
[2016-11-26] MEDS ORDERED: DILTIAZEM HCL 25 MG/5 ML VIAL IV PUSH ONE (10:45)
[2016-11-26 11:38] LABS: APTT (PATIENT) 32.1 SEC (24.3-30.1)
--- NOTE | 2016-11-26 12:01 | HHI.HCPN ---
Reason for visit a. To assist with evaluation and management of symptoms including: pain, dyspnea, encephalopathy. b. To assist medical decision maker(s) with: better understanding of current medical conditions; weighing benefits/burdens of medical treatment options; making medical treatment decisions. . (Sandra Mccabe) Subjective/Interval History Patient seen and examined in ICU. No family at bedside. Discussed with Dr. Colin and nurse. Patient remains on mech vent, FiO2 60% with oxygen saturation in the upper 80's, PEEP 10. He does not follow simple commands, does not blink to threat consistently. Not tracking. Afebrile. WBC remains elevated 17.4. Tachycardic, rate 145 despite Cardizem. 11/23/16 sputum culture positive Klebsiella pneumonia and Pseudomonas aeruginosa. ID following. No new imaging today. . Family/friend interactions Spoke with sonDrake via phone. He will be here later today will call when he arrives. Spoke with daughterIra via phone. Lengthy conversation with daughter, she verbalizes that she does not feel her father is improving. She was here to visit on 11/25/16 and tells me her dad is not connecting with her. She feels he does not even know she is there. She tells me her father told her in the past "he did not want to be kept alive by machines." She seems to be leaning toward DNR status, but tells me her siblings will have a harder time with this. 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 Met with Drake (son and his girlfriend in consult room. He wants to participate in medical decision making. He agrees with his siblings that his father did not want to be kept alive by machines. He seems to think patient would want DNR. He will peak with her siblings. Spoke with daughter, Krystyna. She wants to participate in medical decision making. She verbalizes that she is not sure her father is improving. She agrees with her siblings that her father did not want to be kept alive by machines. She seems to be leaning toward DNR status, but tells me she wants to speak with her siblings. . (Sandra Mccabe) Advance Directives Living Will: Never completed Health Care Surrogate: Never completed Durable Power of Boiler Welder: Never completed (Sandra Mccabe) Advance Directive Specifics Health Care Surrogate(s): Patient is currently incapacitated, uncertain if he will regain capacity. Patient is single. Has 1 son (Drake Andrews) and 2 daughters (Ira Mcgovern and Krystyna Palma). According to [place] statutes, health care proxy decision- making would fall to the majority of adult children. Krystyna Roth and Drake wish to particpate. . Significant change in goals: FULL CODE. Family considering code status. For now goals remain aggressive. (Sandra Mccabe) Objective Vital Signs Date Time Temp Pulse Resp B/P (MAP) Pulse Ox O2 Delivery O2 Flow Rate FiO2 11/26/16 11:30 90 80 11/26/16 08:16 98 60 11/26/16 08:00 60 11/26/16 06:00 72 11/26/16 04:16 92 60 11/26/16 04:00 98.4 133 17 11/72 (52) 93 11/26/16 04:00 133 11/26/16 04:00 60 11/26/16 02:00 98 11/26/16 00:29 93 60 11/26/16 00:00 97 11/26/16 00:00 98.7 97 22 122/73 (89) 92 11/26/16 00:00 60 11/25/16 22:00 85 11/25/16 21:21 89 60 11/25/16 20:00 72 11/25/16 20:00 98.5 72 16 119/74 (89) 88 11/25/16 20:00 60 11/25/16 19:33 89 60 11/25/16 18:00 72 11/25/16 16:20 91 60 11/25/16 16:00 98.5 96 16 138/77 (97) 89 11/25/16 16:00 50 11/25/16 16:00 121 11/25/16 14:00 99 11/25/16 12:21 90 50 11/25/16 12:00 98.7 83 16 131/82 (98) 87 11/25/16 12:00 74 11/25/16 12:00 50 Intake & Output 11/26/16 11/26/16 07:00 19:00 Intake Total 2307 ml Output Total 1120 ml Balance 1187 ml IV Total 1625 ml Tube Feeding 482 ml Other 200 ml Output Urine Total 900 ml Stool Total 100 ml Chest Tube Drainage Total 120 ml Physical Exam CONSTITUTIONAL/GENERAL: This is an overweight, critically ill patient, on mechanical ventilation. TUBES/LINES/DRAINS: ETT, OG, left upper PIC line, PIV left forearm, bilateral soft wrist restraints, Ashley Shield, Santiago catheter, SCDs, right chest tube. SKIN: No jaundice, rashes, or lesions. Ecchymoses on upper extremities. Abrasion / scab on right knee. Skin temperature appropriate. Not diaphoretic. EYES: eyes open, intermittently blinks to threat. Does not appear to track. ENT: unable to assess hearing given clinical condition. Nose without bleeding or purulent drainage. Throat difficult to visualize secondary to tubes. CARDIOVASCULAR: tachycardic, rate 145. RESPIRATORY/CHEST: Labored respiration on mech vent. FiO2 60%, PEEP 10, oxygen saturation 87%. Right chest tube. GASTROINTESTINAL: Abdomen soft, nondistended. No guarding. Bowel sounds present. Tolerating tube feeding. GENITOURINARY: Without palpable bladder distension. Santiago catheter in place. MUSCULOSKELETAL: Extremities with 3+ edema. NEUROLOGICAL: Eyes open, does not appear to track. Intermittently blinks to threat. Does not follow simple commands for me. PSYCHIATRIC: Unable to assess due to clinical condition. . (Sandra Mccabe) Diagnostic Tests Laboratory Laboratory Tests Test 11/23/16 14:50 11/23/16 16:30 11/24/16 04:00 11/24/16 09:05 Urine Color YELLOW (YELLW/STRAW) Urine Turbidity CLEAR (CLEAR) Urine pH 5.5 (5.0-8.5) Urine Specific [place] 1.022 (1.002-1.035) Urine Protein TRACE mg/dL (NEG-TRACE) Urine Glucose (UA) NEG mg/dL (NEG) Urine Ketones NEG mg/dL (NEG) Urine Occult Blood TRACE (NEG) Urine Nitrite NEG (NEG) Urine Bilirubin NEG (NEG) Urine Urobilinogen LESS THAN 2.0 MG/DL (LESS Urine Leukocyte Esterase TRACE (NEG) Urine RBC 16 /hpf (0-3) Urine WBC 1 /hpf (0-5) Urine Mucus FEW /lpf (OCC) Microscopic Urinalysis Comment CATH-CULT NOT IND Activated Partial Thromboplast Time 29.0 SEC (24.3-30.1) 33.5 SEC (24.3-30.1) White Blood Count 17.5 TH/MM3 (4.0-11.0) Red Blood Count 4.02 MIL/MM3 (4.50-5.90) Hemoglobin 12.3 GM/DL (13.0-17.0) Hematocrit 37.9 % (39.0-51.0) Mean Corpuscular Volume 94.3 FL (80.0-100.0) Mean Corpuscular Hemoglobin 30.7 PG (27.0-34.0) Mean Corpuscular Hemoglobin Concent 32.5 % (32.0-36.0) Red Cell Distribution Width 14.6 % (11.6-17.2) Platelet Count 154 TH/MM3 (150-450) Mean Platelet Volume 8.2 FL (7.0-11.0) Neutrophils (%) (Auto) 91.2 % (16.0-70.0) Lymphocytes (%) (Auto) 3.0 % (9.0-44.0) Monocytes (%) (Auto) 5.5 % (0.0-8.0) Eosinophils (%) (Auto) 0.1 % (0.0-4.0) Basophils (%) (Auto) 0.2 % (0.0-2.0) Neutrophils # (Auto) 16.0 TH/MM3 (1.8-7.7) Lymphocytes # (Auto) 0.5 TH/MM3 (1.0-4.8) Monocytes # (Auto) 1.0 TH/MM3 (0-0.9) Eosinophils # (Auto) 0.0 TH/MM3 (0-0.4) Basophils # (Auto) 0.0 TH/MM3 (0-0.2) CBC Comment AUTO DIFF Differential Total Cells Counted 100 Neutrophils % (Manual) 92 % (16-70) Band Neutrophils % 2 % (0-6) Lymphocytes % 2 % (9-44) Monocytes % 3 % (0-8) Neutrophils # (Manual) 16.6 TH/MM3 (1.8-7.7) Metamyelocytes 1 % (0-1) Differential Comment FINAL DIFF MANUAL Platelet Estimate LOW (NORMAL) Platelet Morphology Comment NORMAL (NORMAL) Red Cell Morphology Comment NORMAL (NORMAL) Blood Urea Nitrogen 18 MG/DL (7-18) Creatinine 0.27 MG/DL (0.60-1.30) Random Glucose 150 MG/DL (74-106) Calcium Level 8.1 MG/DL (8.5-10.1) Sodium Level 136 MEQ/L (136-145) Potassium Level 3.2 MEQ/L (3.5-5.1) Chloride Level 94 MEQ/L (98-107) Carbon Dioxide Level 33.2 MEQ/L (21.0-32.0) Anion Gap 9 MEQ/L (5-15) Estimat Glomerular Filtration Rate 350 ML/MIN (>89) Blood Gas Puncture Site RT RADIAL Blood Gas Patient Temperature 98.6 Blood Gas HCO3 31 mmol/L (22-26) Blood Gas Base Excess 6.9 mmol/L (-2-2) Blood Gas Oxygen Saturation 94 % (90-100) Arterial Blood pH 7.47 (7.380-7.420) Arterial Blood Partial Pressure CO2 43 mmHg (38-42) Arterial Blood Partial Pressure O2 88 mmHg (61-120) Arterial Blood Oxygen Content 17.0 Vol % (12.0-20.0) Arterial Blood Carboxyhemoglobin 1.4 % (0-4) Arterial Blood Methemoglobin 1.2 % (0-2) Blood Gas Hemoglobin 12.8 G/DL (12.0-16.0) Oxygen Delivery Device VENTILATOR Blood Gas Ventilator Setting [facility]/AC 700/16 Blood Gas Inspired Oxygen 50 % Test 11/24/16 11:40 11/24/16 19:30 11/24/16 20:30 11/24/16 22:10 Activated Partial Thromboplast Time 33.6 SEC (24.3-30.1) 104.8 SEC (24.3-30.1) 28.1 SEC (24.3-30.1) Potassium Level 4.1 MEQ/L (3.5-5.1) Test 11/25/16 05:45 11/25/16 08:20 11/25/16 12:55 11/25/16 21:50 White Blood Count 14.5 TH/MM3 (4.0-11.0) Red Blood Count 3.93 MIL/MM3 (4.50-5.90) Hemoglobin 12.3 GM/DL (13.0-17.0) Hematocrit 37.2 % (39.0-51.0) Mean Corpuscular Volume 94.7 FL (80.0-100.0) Mean Corpuscular Hemoglobin 31.4 PG (27.0-34.0) Mean Corpuscular Hemoglobin Concent 33.1 % (32.0-36.0) Red Cell Distribution Width 14.6 % (11.6-17.2) Platelet Count 157 TH/MM3 (150-450) Mean Platelet Volume 7.9 FL (7.0-11.0) Neutrophils (%) (Auto) 90.3 % (16.0-70.0) Lymphocytes (%) (Auto) 3.4 % (9.0-44.0) Monocytes (%) (Auto) 5.6 % (0.0-8.0) Eosinophils (%) (Auto) 0.2 % (0.0-4.0) Basophils (%) (Auto) 0.5 % (0.0-2.0) Neutrophils # (Auto) 13.1 TH/MM3 (1.8-7.7) Lymphocytes # (Auto) 0.5 TH/MM3 (1.0-4.8) Monocytes # (Auto) 0.8 TH/MM3 (0-0.9) Eosinophils # (Auto) 0.0 TH/MM3 (0-0.4) Basophils # (Auto) 0.1 TH/MM3 (0-0.2) CBC Comment AUTO DIFF Differential Total Cells Counted 100 Neutrophils % (Manual) 92 % (16-70) Band Neutrophils % 1 % (0-6) Lymphocytes % 1 % (9-44) Monocytes % 4 % (0-8) Neutrophils # (Manual) 13.8 TH/MM3 (1.8-7.7) Metamyelocytes 1 % (0-1) Myelocytes 1 % (0-0) Nucleated Red Blood Cells 1 /100 WBC (0-0) Differential Comment FINAL DIFF MANUAL Platelet Estimate NORMAL (NORMAL) Platelet Morphology Comment NORMAL (NORMAL) Red Cell Morphology Comment NORMAL (NORMAL) Activated Partial Thromboplast Time 31.0 SEC (24.3-30.1) 30.8 SEC (24.3-30.1) 34.0 SEC (24.3-30.1) Blood Urea Nitrogen 14 MG/DL (7-18) Creatinine 0.32 MG/DL (0.60-1.30) Random Glucose 177 MG/DL (74-106) Calcium Level 8.0 MG/DL (8.5-10.1) Phosphorus Level 2.0 MG/DL (2.5-4.9) Magnesium Level 1.8 MG/DL (1.5-2.5) Sodium Level 136 MEQ/L (136-145) Potassium Level 3.9 MEQ/L (3.5-5.1) Chloride Level 96 MEQ/L (98-107) Carbon Dioxide Level 31.6 MEQ/L (21.0-32.0) Anion Gap 8 MEQ/L (5-15) Estimat Glomerular Filtration Rate 288 ML/MIN (>89) Vancomycin Level Trough 12.3 MCG/ML (5.0-10.0) Test 11/26/16 04:30 11/26/16 11:07 White Blood Count 17.4 TH/MM3 (4.0-11.0) Red Blood Count 4.10 MIL/MM3 (4.50-5.90) Hemoglobin 12.7 GM/DL (13.0-17.0) Hematocrit 38.7 % (39.0-51.0) Mean Corpuscular Volume 94.5 FL (80.0-100.0) Mean Corpuscular Hemoglobin 30.9 PG (27.0-34.0) Mean Corpuscular Hemoglobin Concent 32.8 % (32.0-36.0) Red Cell Distribution Width 14.4 % (11.6-17.2) Platelet Count 171 TH/MM3 (150-450) Mean Platelet Volume 7.8 FL (7.0-11.0) Neutrophils (%) (Auto) 90.3 % (16.0-70.0) Lymphocytes (%) (Auto) 3.0 % (9.0-44.0) Monocytes (%) (Auto) 5.8 % (0.0-8.0) Eosinophils (%) (Auto) 0.1 % (0.0-4.0) Basophils (%) (Auto) 0.8 % (0.0-2.0) Neutrophils # (Auto) 15.7 TH/MM3 (1.8-7.7) Lymphocytes # (Auto) 0.5 TH/MM3 (1.0-4.8) Monocytes # (Auto) 1.0 TH/MM3 (0-0.9) Eosinophils # (Auto) 0.0 TH/MM3 (0-0.4) Basophils # (Auto) 0.1 TH/MM3 (0-0.2) CBC Comment AUTO DIFF Differential Total Cells Counted 100 Neutrophils % (Manual) 69 % (16-70) Band Neutrophils % 19 % (0-6) Lymphocytes % 1 % (9-44) Monocytes % 10 % (0-8) Neutrophils # (Manual) 15.5 TH/MM3 (1.8-7.7) Metamyelocytes 1 % (0-1) Differential Comment FINAL DIFF MANUAL Platelet Estimate NORMAL (NORMAL) Platelet Morphology Comment NORMAL (NORMAL) Prothrombin Time 10.7 SEC (9.8-11.6) Prothromb Time International Ratio 1.0 RATIO Activated Partial Thromboplast Time 32.9 SEC (24.3-30.1) 32.1 SEC (24.3-30.1) Blood Urea Nitrogen 11 MG/DL (7-18) Creatinine 0.25 MG/DL (0.60-1.30) Random Glucose 184 MG/DL (74-106) Calcium Level 7.8 MG/DL (8.5-10.1) Phosphorus Level 1.9 MG/DL (2.5-4.9) Magnesium Level 1.7 MG/DL (1.5-2.5) Sodium Level 134 MEQ/L (136-145) Potassium Level 3.7 MEQ/L (3.5-5.1) Chloride Level 95 MEQ/L (98-107) Carbon Dioxide Level 31.9 MEQ/L (21.0-32.0) Anion Gap 7 MEQ/L (5-15) Estimat Glomerular Filtration Rate 383 ML/MIN (>89) Digoxin Level 0.5 NG/ML (0.8-2.0) (Sandra Mccabe) Result Diagram: 11/26/1642911/26/16429 Microbiology Microbiology Date/Time Source Procedure Growth Status 11/23/16 19:26 Blood Peripheral Aerobic Blood Culture - Preliminary NO GROWTH IN 3 DAYS Resulted 11/23/16 19:26 Blood Peripheral Anaerobic Blood Culture - Preliminary NO GROWTH IN 3 DAYS Resulted 11/23/16 14:50 Blood Peripheral Aerobic Blood Culture - Preliminary NO GROWTH IN 3 DAYS Resulted 11/23/16 14:50 Blood Peripheral Anaerobic Blood Culture - Preliminary NO GROWTH IN 3 DAYS Resulted 11/23/16 14:50 Sputum Endotracheal Gram Stain - Final Complete 11/23/16 14:50 Sputum Culture - Final Klebsiella Pneumoniae Pseudomonas Aeruginosa Complete Imaging Last Impressions Chest X-Ray 11/24/16 0000 Signed Impressions: Service Date/Time: Thursday, November 24, 2016 08:00 - CONCLUSION: Stable lines and tubes. The right pneumothorax is no longer visualized. There is overall slight increase within the right basilar airspace consolidation and pleural fluid. Small left-sided pleural fusion and overlying atelectasis is stable. Rose Nicole MD Lower Extremity Ultrasound 11/09/16 0000 Signed Impressions: Service Date/Time: Wednesday, November 09, 2016 14:13 - CONCLUSION: Normal examination. Jayson Manning MD Liver Ultrasound 11/09/16 0000 Signed Impressions: Service Date/Time: Wednesday, November 09, 2016 13:58 - CONCLUSION: Sono dense liver without duct dilatation. 4 mm common duct. Ward Kim MD FACR Chest CT 11/06/16 0000 Signed Impressions: Service Date/Time: Sunday, November 06, 2016 11:24 - CONCLUSION: 1. Dense bilateral posterior lower lobe airspace consolidation consistent with aspiration versus less likely pneumonia. 2. Linear consolidation in the right middle lobe consistent with atelectasis versus aspiration. 3. Trace left and small right pleural effusions. 4. Support lines and tubes in good position. 5. Prominent coronary artery calcifications. Nico Vaughan MD Head CT 11/05/16 0000 Signed Impressions: Service Date/Time: Saturday, November 05, 2016 21:43 - CONCLUSION: 1. No acute intracranial abnormalities. Pansinus fluid opacification. Cristofer De Santiago MD Abdomen X-Ray 10/29/16 0600 Signed Impressions: Service Date/Time: Saturday, October 29, 2016 04:41 - CONCLUSION: Nonspecific , nonobstructive bowel gas pattern. No evidence of free air. Jayson Taylor MD Carotid Artery Ultrasound 10/25/16 0000 Signed Impressions: Service Date/Time: September 08:27 - CONCLUSION: Mild to moderate plaque in both carotid systems with less than 40%% diameter stenosis by velocity criteria. Jhonathan Dietz MD CT Angiography 10/25/16 0000 Signed Impressions: Service Date/Time: September 06:12 - CONCLUSION: 1. Negative for pulmonary embolism. 2. There is a fairly large area of masslike consolidation in the medial right lung involving posterior segment right upper lobe and medial aspect of right lower lobe. There is associated right hilar and mediastinal adenopathy measuring up to 2.1 cm. Differential diagnosis includes pneumonia or underlying lung neoplasm. Close followup imaging recommended after treatment for pneumonia, to assess for underlying mass. Cristofer De Santiago MD Procedures * 11/23/16 - right chest tube placement. * 11/10/16 - ETT replaced. * 11/04/16 - arterial line placement. * 10/25/16 - Intubation and central line placed. . (Sandra Mccabe) Assessment and Plan Disease Oriented Problem List: (1) Acute respiratory failure (2) ARDS (adult respiratory distress syndrome) (3) COPD (chronic obstructive pulmonary disease) (4) Obesity hypoventilation syndrome (5) Anoxic encephalopathy (6) Metabolic encephalopathy (7) Atrial flutter (8) Leukocytosis (9) Sepsis (10) Hyperglycemia (11) Morbid obesity (12) Tobacco use (13) Hypertension Symptom Scale: (1) Pain 0-10 Scale: Unable to quantify Comment: On Fentanyl drip. (2) Dyspnea 0-10 Scale: Unable to quantify (3) Encephalopathy 0-10 Scale: Unable to quantify Pertinent Non-Medical Issues Psychosocial: notes indicate patient is single. Has one son and one daughter. Was living with his son prior to admission. Spiritual: unknown. Legal: Patient is currently incapacitated, uncertain if he will regain capacity. Patient is single. Has 1 son (Drake Andrews) and 2 daughters ( Ira Mcgovern and Krystynaashia Palma). According to [place] statutes, health care proxy decision-making would fall to the majority of adult children. Krystyna Roth and Drake wish to particpate. Ethical issues impacting care: no known concerns at this time. . Important Contacts * Ira Mcgovern, daughter/ HCP: [phone] (cell) or [phone] ext. [phone] (work) * Drake Andrews, son/ HCP: [phone] (cell) or [phone] (work) * Krystyna Palma, daughter/ HCP: [phone] * Drake Henry girlfriend: [phone] . . Prognosis Mr. Andrews is an unfortunate 56-year-old male who was admitted with respiratory distress, pneumonia, ARDS with prolonged hospitalization/mechanical ventilation still requiring high FI 02 and PEEP needs, unable to proceed with tracheostomy/ PEG tube given medical instability, high oxygen needs. Overall condition does not appear to be improving. . Code Status: Full Code Plan * Decision Maker: Patient is currently incapacitated, uncertain if he will regain capacity. Patient is single. Has 1 son (Drake Andrews) and 2 daughters ( Ira Mcgovern and Krystyna Palma). According to [place] statutes, health care proxy decision-making would fall to the majority of adult children. Krystyna Roth and Drake wish to particpate. * FULL CODE - family considering code status. * Palliative care spoke with Drake Andrews, Krystyna Palma and Ira Mcgovern, all three children want to participate in medical decision making. They are considering CODE Status and will talk to one another tonight to make this decision. They all report patient would not want to be kept alive by machines. There hopeful to obtain MRI results in order to further clarify treatment goals in regards to tracheostomy/PEG tube. If the medical team feels this patient will not return to a life of meaning and purpose, they verbalize he would not want continued aggressive care. Will need to speak with medical team further in regards to overall prognosis, I suspect MRI will be important. * SYMPTOMS: Pain: potential sources of pain include COPD, intubation, prolonged hospitalization, bedbound status, chest tube, infection, etc. on fentanyl drip, intermittent grimacing during physical exam. Given underlying encephalopathy no new pain medication recommendations at this time. Dyspnea: remains on prolonged mechanical ventilation requiring high Fi02 and PEEP support. Has been too unstable for tracheostomy. Encephalopathy: patient with possible anoxic encephalopathy. No new medication recommendations at this time. * Palliative care will continue to follow throughout hospital course to assist with symptom management and clarification of goals as needed. . (Sandra Mccabe) Attestation To help prompt me to consider important information that might be impacting today's encounter and assessment, information from prior notes written by myself or my colleagues may have been "brought forward" into today's note. My signature on this note, however, is an attestation that I personally performed the exam, history, and/or decision-making noted today, and, unless otherwise indicated, the interactions with patient, family, and staff as well as the review of records all occurred today. I also attest that the listed assessment and stated plan reflect my best clinical judgment today based on the combination of historical information, prior notes, and today's exam/ interactions. When time spent is documented, it refers only to time spent today by the signer, or if indicated, combined time spent today by collaborating physician/nurse practitioner. (Sandra Mccabe) Collaborating MD Comments Chart reviewed. Case discussed with palliative care AIRPLANE TECHNICIAN. Above note reviewed and I concur. . (Willem Elmore MD) Sandra Mccabe Nov 26, 2016 12:01 Willem Elmore MD Dec 02, 2016 12:13
[2016-11-26] MEDS: SODIUM PHOSPHATE INJ 30 MMOL in SODIUM CHLOR 0.9% 250 ML INJ 240 ML IV PRN (12:03)
--- NOTE | 2016-11-26 14:22 | HHI.PR ---
Addendum to Inpatient Note Additional Information sputum clx result noted Kleb pneumo, PSAE both S to pip/tazo cont PIP/tazo dc Mariana Delgado MD Nov 26, 2016 14:22
[2016-11-26] MEDS: LABETALOL HCL 100 MG/20 ML VIAL IV PUSH PRN (19:10)
[2016-11-26 19:24] LABS: APTT (PATIENT) 33.1 SEC (24.3-30.1)
--- NOTE | 2016-11-26 21:19 | RADRPT ---
EXAM DATE/TIME: 11/26/2016 19:52 [facility] COMPARISON: CT BRAIN W/O CONTRAST, October 25, 2016, 6:08. INDICATIONS : Unresponsive off sedation, encephalopathy. MEDICAL HISTORY : Chronic obstructive pulmonary disease. Hypertension. SURGICAL HISTORY : None. ENCOUNTER: Initial ACUITY: 1 day PAIN SCORE: Nonresponsive. LOCATION: Bilateral cranial TECHNIQUE: Multiplanar, multisequence MRI of the brain was performed without contrast. FINDINGS: CEREBRUM: The ventricles are normal for age. There is a small 0.8 cm area of focal increased signal on the T2 and flair images at the superior medial left frontal lobe. No evidence of midline shift, mass lesion, hemorrhage or acute infarction. No extraaxial fluid collections are seen. The pituitary gland and suprasellar cistern are normal in configuration. WHITE MATTER: There are some minimal scattered punctate focal areas of signal abnormality seen in the white matter. POSTERIOR FOSSA: The cerebellum and brainstem are intact. The 4th ventricle is midline. The cerebellopontine angle is unremarkable. The cerebellar tonsils are normal in position. DIFFUSION IMAGING: No focal areas of restricted diffusion are seen. No evidence of acute infarction. EXTRACRANIAL: The visualized portions of the orbits are unremarkable. There is bilateral sphenoid and right maxilla ry sinus disease. CONCLUSION: 1. Small focal signal abnormality in the superior medial left frontal lobe. This is nonspecific. This could be the sequela from prior insult such as a contusion or small infarct. An acute infarct is no t seen. A small underlying lesion could have a similar appearance. One could perform a contrast-enhan lamin study to determine if there is any enhancement associated with this region. 2. There are a few scattered minimal punctate areas of demyelination seen not expected for the patien t's age. 3. Sinus disease. Jayson Soto MD on November 26, 2016 at 21:10 Board Certified Radiologist. This report was verified electronically.
[2016-11-27] VITALS (27 sets, daily range): BP systolic 93–189; BP diastolic 57–114; PULSE 68–129; RESP 16–31; TEMP 96.9–98.8; O2SAT 88–99
[2016-11-27] MEDS: METOPROLOL TARTRATE 50 MG TAB PO SCH ×4 (00:37→17:09)
[2016-11-27] MEDS: PROPOFOL 1000 MG/100 ML IV PRN ×9 (00:37→23:35)
[2016-11-27] MEDS: DILTIAZEM HCL 90 MG TAB PO SCH ×4 (00:37→17:09)
[2016-11-27] MEDS: fentaNYL DRIP 250 ML IV PRN ×2 (00:42→15:16)
[2016-11-27 01:54] LABS: APTT (PATIENT) 36.9 SEC (24.3-30.1)
[2016-11-27] MEDS: CHLORHEXIDINE GLUCONATE 2 % 1 PACK (2 CLOTHS) TOP SCH (04:00)
[2016-11-27] MEDS: INSULIN NovoLIN REGULAR SUPPLEMENTAL SCALE SQ SCH ×6 (04:00→20:00)
[2016-11-27 05:03] LABS: AUTOMATED NEUTROPHIL # 18.3 TH/MM3 (1.8-7.7); BASOPHIL % 0.2 % (0.0-2.0); EOSINOPHIL # 0.1 TH/MM3 (0-0.4); EOSINOPHIL % 0.3 % (0.0-4.0); HEMATOCRIT 39.1 % (39.0-51.0); LYMPH % 3.6 % (9.0-44.0); LYMPHOCYTE # 0.7 TH/MM3 (1.0-4.8); MEAN CELL VOLUME 93.8 FL (80.0-100.0); MEAN CORPUSCULAR HEMOGLOBIN 30.6 PG (27.0-34.0); MEAN CORPUSCULAR HGB CONC 32.6 % (32.0-36.0); MONO % 4.7 % (0.0-8.0); NEUT % 91.2 % (16.0-70.0); PLATELET COUNT 189 TH/MM3 (150-450); RED BLOOD COUNT 4.17 MIL/MM3 (4.50-5.90); RED CELL DISTRIBUTION WIDTH 14.7 % (11.6-17.2)
[2016-11-27 05:09] LABS: APTT (PATIENT) 38.5 SEC (24.3-30.1)
[2016-11-27 05:16] LABS: HEMO FLAGS AUTO DIFF
[2016-11-27 05:28] LABS: BICARBONATE 31.8 MEQ/L (21.0-32.0); MAGNESIUM 1.6 MG/DL (1.5-2.5); POTASSIUM 3.6 MEQ/L (3.5-5.1)
[2016-11-27] MEDS: PIPERACIL-TAZO 4.5 GM PREMIX 100 ML IV SCH ×4 (05:36→22:43)
[2016-11-27] MEDS: cloNIDine HCL 0.2 MG TAB OG-TUBE SCH ×3 (05:37→21:14)
[2016-11-27] MEDS: SODIUM PHOSPHATE INJ 30 MMOL in SODIUM CHLOR 0.9% 250 ML INJ 240 ML IV PRN (06:07)
[2016-11-27 07:02] LABS: BANDS 29 % (0-6); METAMYELOCYTES 1 % (0-1); MYELOCYTES 2 % (0-0); NEUTROPHIL # MANUAL DIFF 19.4 TH/MM3 (1.8-7.7); POLYS (SEG NEUTROPHILS) 65 % (16-70); WBC DIFF SAMPLE 100
[2016-11-27 07:03] LABS: SCAN/DIFF FINAL DIFF MANUAL
[2016-11-27] MEDS: RESP: BUDESONIDE 0.5 MG/2 ML NEB NEB SCH ×2 (07:51→19:41)
--- NOTE | 2016-11-27 08:17 | HHI.CCPN ---
Subjective Remarks/Hospital Course 56-year-old very pleasant gentleman with past medical history of COPD, and hypertension presents complaining of shortness of breath and nausea, generalized fatigue and chills for 2 days. He thinks it has been from being out in the heat. Denies any fever, chest pain, vomiting, abdominal pain, focal weakness or numbness. In the emergency department his saturation was in mid 80s on arrival with auditory wheezing and tachypnea. He was placed on 4 liters of NC and saturating in the low 90. He does not use oxygen at home. He also mentioned 2 days ago, he came home and was sitting in a chair and was taking his shoes off when he passed out. States he woke up and was still on the chair. This has never happen before. 10/25: Patient intubated secondary to increasing oxygen requirements, altered mental status. Discussed with son. Somewhat hypertensive post intubation. 10/26: Placed on rotaprone bed last evening. Flolan initiated. Saturations improved. Afebrile. Remains on Nimbex drip. 10/27: T max 99.7. Tolerated on not prone position 2 hours yesterday. Tolerating trickle feeds. FiO2 down to 55% 10/28: Tmax 99.9. When unprone for chest x-ray this a.m. desaturated. Currently on 90% FiO2. Actually hypertensive. No bowel movements. Remains paralyzed 10/29: Remains intubated sedated on continuous Prone therapy Except for chest x- ray. Fever 100.8. Panculture requested. Zyvox added. Continue IV sedation with propofol and fentanyl and Versed, neuromuscular paralysis with Nimbex 10/30: Prone cycle changed to 8 hr prone, 1 hr supine from 10/29. Due to hypoxia will continue with same cycle today. Chest x-ray remains unchanged. Patient remains severely hypoxemic FiO2 at 75% PEEP at 16. WBC count worsened to 18. Remains neuromuscularly paralyzed. 10/31: Patient remains critically ill but stable. Oxygen saturation 95% on 55 of FiO2 and PEEP of 16. Reduce PEEP to 14, FiO2 to 50% and start weaning Flolan. Increase supine time to 4 hours, reduce Prone time to 6 hours 11/01: Patient remains intubated sedated critically ill on neuromuscular paralysis. FiO2 reduced to 50, I will attempt PEEP wean gradually to 12 today. Prone/supine cycles will be changed to 6 hours each 11/02: FiO2 remains at 50%, PEEP reduced from 14 to 12 today, TV increased to 600 and RR to 20, in anticipation of discontinuing prone therapy, which will be DCd today. Off Flolan for 2 days 11/03: off pronation. fio2 up to 65% , peep 12. agitation causing desaturation. minimal improvements. 11/04: good diuresis yesterday, but despite that, fio2 persists at 65% and spo2 decreasing to 91% today. no real improvements and some worsening of pulmonary function despite ongoing aggressive therapies. still not safe for SBT given hypoxia. also severely hypertensive this morning. 11/05: continues to diurese well and Cr still at baseline. fio2 at 90% however, and no clinical improvements in mental status or hypoxia. still unsafe for SBT given hypoxemia. off pathway. hypertension under much better control. poor neuro status is concerning. 11/06: Remains severely hypoxemic. FiO2 was 100% PEEP 14. I reduce FiO2 to 90% after increasing PEEP to 16. Developed a flutter with RVR overnight, currently on Cardizem drip. Unable to do SBT due to very high settings 11/07: Remains hypoxemic and but able to wean FiO2 down to 80% with PEEP of 16. Remains unresponsive on sedation. Unable to trach due to his high vent settings and high FiO2. Remains on Cardizem and 15 mg per hour, with rate controlled a flutter. We'll start by mouth Cardizem in an attempt to wean IV Cardizem 11/08: Remains critically ill hypoxic but FiO2 now weaned to 60%, PEEP remains at 16. Very heavily sedated no withdrawal to pain. Will hold all continuos sedation. Sputum culture with Klebsiella sensitive to Rocephin. A flutter persistent, will start IV heparin 11/09 Patient is sedated with Diprivan and intubated, On Cardizem drip 15mg/hr for Aflutter. Heparin drip stated yesterday. 11/10 Patient remains sedated and intubated. On Heparin drip. Persistent fever with Tmax 102.5. ETT was replaced yesterday. 11/11 Patient was placed on Cardizem and amio drips overnight for Afib with RVR. Sedated with Diprivan and intubated. On Heparin drip. T;99.3 this morning. 11/12 Patient remains intubated and sedated with Diprivan. On Cardizem drip 15mg/ hr. Afebrile, Tmax 100.6 11/13 Patient is sedate with Diprivan and intubated. In Afib with RVR now on Amio drip. Tmax 100,4 11/14 Remains intubated sedated with propofol and fentanyl. Afib rate controlled , remains on amiodarone and Cardizem gtt. Fio2 remains high at 70%, PEEP 12. CXR persistent bibasilar infiltrates/effusion 11/15: Currently sedated with propofol and fentanyl drips. Currently in A. fib/ flutter on amiodarone drip and Cardizem drip. PEEP increased to 14. FiO2 65. 11/16: Tmax 100.1. Patient more alert and tachycardic this AM. Adding midazolam gtt for sedation and currently tolerating tube feeding. Positive BM. PEEP to 12. FiO2 75% 11/17: Afebrile. FiO2 down to 60%. PEEP set 12. Multiple tracheostomy hopefully on Saturday. Heart rate better control. 11/18: Afebrile. Discontinuing amiodarone drip today and switching to oral. FiO2 between 60 and 70%. Restarting epoprostenol in attempt to get FiO2 down to 50% for tracheostomy tomorrow 11/19 No events overnight. Sedated with Diprivan, Fentanyl and versed. Still requiring high O2 - on PRVC with PEEP;12 and FIO2 70%. Afebrile. 11/20 Patient remains sedated with Diprivan, versed, Fentanyl and intubated. On PRVC with PEEP: 12, FIO2 50% , sats 88-90%. On Heparin drip. Subjective 11/21: Tmax 99.4. Tolerating tube feeds. Remains on heparin drip. FiO2 down to 55%. PEEP of 10. Eyes open blinks spontaneously. Does squeeze and weakly on left side with encouragement 11/22: Intubated heavily sedated. FiO2 50%, remains on Flolan. PEEP 10. Bumex 1 mg 1 and Diamox 500 mg 1 IV. She will negative balance. Heparinized tube feeds on hold for tracheostomy today at 12. Remains in atrial flutter 11/23 Patient remains sedated with Diprivan, Fentanyl, Versed and intubated. On Heparin drip. For CT guided thoracentesis today. On APRV 11/24 Patient remains sedated and intubated. 20Fr CT placed yesterday for right sided PTX. Spiked fever with T 101.6. Remains on Heparin drip. 11/25 Patient remains intubated with Diprivan, fentanyl and intubated. On PRVC with PEEP: 10, FIO2 50%. Afebrile. 11/26 Patient is sedated with Diprivan, Fentanyl and intubated. Afebrile. On Heparin drip. On PRVC with PEEP: 10, FIO2 60% 11/27 Patient is scheduled for trach in OR today. Sedated and intubated. Heparin drip is off for trach. Objective Vital Signs Date Time Temp Pulse Resp B/P (MAP) Pulse Ox O2 Delivery O2 Flow Rate FiO2 11/27/16 07:51 94 50 11/27/16 06:00 99 11/27/16 04:00 98.8 16 128/79 (95) 11/24/16 20:24 Ventilator Intake and Output 11/27/16 11/27/16 11/28/16 08:00 16:00 00:00 Intake Total 941 ml Output Total 1300 ml Balance -359 ml Result Diagram: 11/27/16 0400 11/27/16 0400 Other Results Laboratory Tests Test 11/26/16 11:07 11/26/16 18:44 11/27/16 01:20 11/27/16 04:00 Activated Partial Thromboplast Time 32.1 SEC 33.1 SEC 36.9 SEC 38.5 SEC White Blood Count 20.0 TH/MM3 Red Blood Count 4.17 MIL/MM3 Hemoglobin 12.8 GM/DL Hematocrit 39.1 % Mean Corpuscular Volume 93.8 FL Mean Corpuscular Hemoglobin 30.6 PG Mean Corpuscular Hemoglobin Concent 32.6 % Red Cell Distribution Width 14.7 % Platelet Count 189 TH/MM3 Mean Platelet Volume 7.8 FL Neutrophils (%) (Auto) 91.2 % Lymphocytes (%) (Auto) 3.6 % Monocytes (%) (Auto) 4.7 % Eosinophils (%) (Auto) 0.3 % Basophils (%) (Auto) 0.2 % Neutrophils # (Auto) 18.3 TH/MM3 Lymphocytes # (Auto) 0.7 TH/MM3 Monocytes # (Auto) 0.9 TH/MM3 Eosinophils # (Auto) 0.1 TH/MM3 Basophils # (Auto) 0.0 TH/MM3 CBC Comment AUTO DIFF Differential Total Cells Counted 100 Neutrophils % (Manual) 65 % Band Neutrophils % 29 % Lymphocytes % 2 % Monocytes % 1 % Neutrophils # (Manual) 19.4 TH/MM3 Metamyelocytes 1 % Myelocytes 2 % Differential Comment FINAL DIFF MANUAL Toxic Granulation Blood Urea Nitrogen 9 MG/DL Creatinine 0.19 MG/DL Random Glucose 162 MG/DL Calcium Level 7.9 MG/DL Phosphorus Level 2.1 MG/DL Magnesium Level 1.6 MG/DL Sodium Level 135 MEQ/L Potassium Level 3.6 MEQ/L Chloride Level 95 MEQ/L Carbon Dioxide Level 31.8 MEQ/L Anion Gap 8 MEQ/L Estimat Glomerular Filtration Rate 525 ML/MIN Imaging Last Impressions Brain MRI 11/26/16 0000 Signed Impressions: Service Date/Time: Saturday, November 26, 2016 19:52 - CONCLUSION: 1. Small focal signal abnormality in the superior medial left frontal lobe. This is nonspecific. This could be the sequela from prior insult such as a contusion or small infarct. An acute infarct is not seen. A small underlying lesion could have a similar appearance. One could perform a contrast-enhanced study to determine if there is any enhancement associated with this region. 2. There are a few scattered minimal punctate areas of demyelination seen not expected for the patient's age. 3. Sinus disease. Jayson Soto MD Chest X-Ray 11/24/16 0000 Signed Impressions: Service Date/Time: Thursday, November 24, 2016 08:00 - CONCLUSION: Stable lines and tubes. The right pneumothorax is no longer visualized. There is overall slight increase within the right basilar airspace consolidation and pleural fluid. Small left-sided pleural fusion and overlying atelectasis is stable. Rose Nicole MD Lower Extremity Ultrasound 11/09/16 0000 Signed Impressions: Service Date/Time: Wednesday, November 09, 2016 14:13 - CONCLUSION: Normal examination. Jayson Manning MD Liver Ultrasound 11/09/16 0000 Signed Impressions: Service Date/Time: Wednesday, November 09, 2016 13:58 - CONCLUSION: Sono dense liver without duct dilatation. 4 mm common duct. Ward Kim MD FACR Chest CT 11/06/16 0000 Signed Impressions: Service Date/Time: Sunday, November 06, 2016 11:24 - CONCLUSION: 1. Dense bilateral posterior lower lobe airspace consolidation consistent with aspiration versus less likely pneumonia. 2. Linear consolidation in the right middle lobe consistent with atelectasis versus aspiration. 3. Trace left and small right pleural effusions. 4. Support lines and tubes in good position. 5. Prominent coronary artery calcifications. Nico Vaughan MD Head CT 11/05/16 0000 Signed Impressions: Service Date/Time: Saturday, November 05, 2016 21:43 - CONCLUSION: 1. No acute intracranial abnormalities. Pansinus fluid opacification. Cristofer De Santiago MD Abdomen X-Ray 10/29/16 0600 Signed Impressions: Service Date/Time: Saturday, October 29, 2016 04:41 - CONCLUSION: Nonspecific , nonobstructive bowel gas pattern. No evidence of free air. Jayson Taylor MD Carotid Artery Ultrasound 10/25/16 0000 Signed Impressions: Service Date/Time: September 08:27 - CONCLUSION: Mild to moderate plaque in both carotid systems with less than 40%% diameter stenosis by velocity criteria. Jhonathan Dietz MD CT Angiography 10/25/16 0000 Signed Impressions: Service Date/Time: , October 25, 2016 06:12 - CONCLUSION: 1. Negative for pulmonary embolism. 2. There is a fairly large area of masslike consolidation in the medial right lung involving posterior segment right upper lobe and medial aspect of right lower lobe. There is associated right hilar and mediastinal adenopathy measuring up to 2.1 cm. Differential diagnosis includes pneumonia or underlying lung neoplasm. Close followup imaging recommended after treatment for pneumonia, to assess for underlying mass. Cristofer De Santiago MD Objective Remarks GENERAL: 56-year-old male, critically ill orotracheally intubated, heavily sedated SKIN: Warm and dry. Positive intertrigo HEAD: Atraumatic. Normocephalic. EYES: Pupils equal and round about 3 mm bilaterally and reactive. No scleral icterus. No injection or drainage. ENT: No nasal bleeding or discharge. Orotracheally intubated NECK: Trachea midline. No JVD. CARDIOVASCULAR: Atrial fibrillation rate controlled, IR. S1, S2 no S4. Diminished heart sounds. Without murmur, clicks, or rubs RESPIRATORY: Bilateral wheezes and rhonchi appreciated. Diminished. GASTROINTESTINAL: Abdomen soft, obese. Hypoactive bowel sounds appreciated MUSCULOSKELETAL: Extremities with trace lower extremity bilateral edema. No obvious deformities. NEUROLOGICAL: Withdraws to pain. Opens eyes intermittently. Positive gag. Positive corneal reflex. (Weakly follows commands by squeezing hands left greater than right side to Dr. Story 11/21/16 on sedation vacation) Date of Insertion: Nov 16, 2016 Line: PICC Side: Left Location: Antecubital A/P Assessment and Plan Neuro/Psych: CIM/SHEFALI s/p Neuromuscular paralysis for Prone therapy Agitated Delirium, Metabolic Encephalopathy Syncope On propofol,,Fentanyl for sedation and vent synchrony. Goal of RASS -2 ,Daily sedation vacation MRI brain 11/26: Small focal signal abnormality in the superior medial left frontal lobe.This could be the sequela from prior insult such as a contusion or small infarct. An acute infarct is not seen. Neuro is following-Dr. Rdz prn hydromorphone for breakthrough. Haloperidol 5mg iv q4h prn for agitation. Brain CT on admission revealed no acute intracranial findings, CT brain 11/05- no acute findings. opacification of sinuses. Carotid ultrasound less than 50% stenosis bilaterally EEG 11/20: No seizure activity. EEG 11/09: severe encephalopathy PT/OT for range of motion CV: Atrial fib/ flutter with RVR Hypertension- On Amiodarone 400mg Q12, Digoxin 0.125 mg daily(Dig. level 0.5 on 11/26) On PO Cardizem 90 mg PO q6hr, Lopressor 50mg Q6, Clonidine 0.2mg Q8 for hypertension and Atrial fib/flutter IV heparin for anticoagulation- on hold for trach today Repeat echo with bubble study: 11/22: No shunt seen Echo 10/25 EF 60-65% Resp: Acute hypoxemic Respiratory failure - severe and persistent. Spontaneous Right sided PTX 2nd barotrauma Severe ARDS COPD exacerbation Pneumonia most likely community-acquired Obesity hypoventilation syndrome Tobacco use disorder On PRVC RR 16, TV 700, IT: 1.3, PEEP: 10, FIO2 50%.Intubated 10/25 Continue with vent support keep sat >92% Decrease FIO2 as daniel Scheduled for trach in OR today by Dr. Martin s/p 20Fr CT placed for right PTX 11/23, monitor CT drainage- Drained 100ml overnight. Gen surg consulted for trach placement-Dr. Martin CT pulmonary angio revealed no pulmonary embolus. Masslike consolidation in the posterior right upper lobe and medial right lower lobe. Lymphadenopathy to 1 cm right hilum and subcarinal. Atelectasis left lower lobe. Discontinued Prone therapy 11/02/16. Albuterol/ipratropium every 4 hours with albuterol every 2 hours when necessary dyspnea. Ventilator bundle, Budesonide 0.5 mg aerosols twice a day. Methylprednisolone 40 mg IV daily Pulmonary/Dr. Wynne following GI: Morbid Obesity Elevated LFT's Monitor LFT, US liver: No ductal dilatation Tube feeds on hold-Vital high protein 1.5 at 40ml/hr Famotidine 20 milligrams mg twice a day for GI prophylaxis /renal: Monitor renal function, I/O's, electrolytes replacement per protocol. Will need Phos replacement today. Endo: Hyperglycemia- SSI Q4 for glycemic control. . Heme: Normocytic anemia Monitor CBC, coags- patient is on heparin drip now on hold for trach. ID: Severe sepsis Pneumonia Continue abx(Zosyn) Off Vanco, Monitor for signs of infections ( Fever, WBC) Sputum cx 11/23: Kleb, Pseudomonas, check sputum cx today s/p (ceftriaxone and Diflucan course). ID is following-Dr. Patel s/p ceftriaxone 11/02-11/09 for Enterobacter pneumonia. Repeat sputum Klebsiella sensitive to Rocephin 10/29/16-Enterobacter in sputum, 11/06/16, 11/10 sputum- Klebsiella Urine Legionella and pneumococcal antigens negative and influenza negative C-diff PCR is negative Access RUE PICC placed 11/05 through 11/15 replaced 11/16 with left upper extremity PICC Prophylaxis - GI, famotidine - DVT - IV heparin gtt 11/09 Doppler US LE negative for DVT Palliative care is following Critical Care: The total critical care time was 30 minutes. Time to perform other separately billable procedures was not included in the critical care time. Chepe Carney MD Nov 27, 2016 08:16
[2016-11-27] MEDS: SODIUM CHLORIDE 0.9% FLUSH 10 ML FLUSH SCH ×2 (08:27→21:15)
[2016-11-27] MEDS: ARTIFICIAL TEARS OPTH OINT 3.5 APPLIC/3.5 GM TUBO EACH EYE SCH ×2 (08:27→21:15)
[2016-11-27] MEDS: DIGOXIN 0.125 MG TAB PO SCH (08:28)
[2016-11-27] MEDS: SODIUM CHLORIDE 0.9% FLUSH 10 ML FLUSH IV FLUSH SCH (08:28)
[2016-11-27] MEDS: AMIODARONE 200 MG TAB OG-TUBE SCH ×2 (08:28→21:15)
[2016-11-27] MEDS: CHLORHEXIDINE 0.12% (ORAL KIT) 15 ML CUP MT SCH ×2 (08:28→21:16)
[2016-11-27] MEDS: SODIUM CHLORIDE 0.9% FLUSH 10 ML FLUSH IVF SCH (08:28)
[2016-11-27] MEDS: FAMOTIDINE 20 MG TAB NG SCH ×2 (08:28→21:15)
[2016-11-27] MEDS: methylPREDNISolone SOD SUCC 40 MG/1 ML VIAL IV SCH (08:28)
[2016-11-27] MEDS ORDERED: PHARMACY ORDERED LAB ONE (08:45)
[2016-11-27] MEDS ORDERED: NORMOSOL R INJ 1,000 ML IV ONE (12:00)
[2016-11-27] MEDS ORDERED: VECURONIUM BROMIDE 20 MG VIAL IV ONE (12:00)
[2016-11-27] MEDS ORDERED: ROCURONIUM INJ 50 MG/5 ML SYRINGE IV PUSH ONE (12:00)
--- NOTE | 2016-11-27 12:12 | HHI.HCPN ---
Reason for visit a. To assist with evaluation and management of symptoms including: pain, dyspnea, encephalopathy. b. To assist medical decision maker(s) with: better understanding of current medical conditions; weighing benefits/burdens of medical treatment options; making medical treatment decisions. . (Sandra Mccabe) Subjective/Interval History Patient seen and examined in ICU. No family at bedside. Discussed with nurse. student life vice president present during my visit. Patient remains on mech vent, FiO2 50% , PEEP 10. Patient seems more alert, attempting to nod yes/no. He closes and opens eyes on command. He does not squeeze hands or wiggle toes on command. Tracking today. Nurse is cutting sedation down during my visit. Plan to proceed with tracheostomy later today in the OR. Afebrile. WBC 20. Tachycardic, rate 129. 9/ sputum culture positive Klebsiella pneumonia and Pseudomonas aeruginosa. Blood cultures no growth at 4 days. MRI with small focal abnormality in the superior medial left frontal lobe possible prior infarct or contusion, a few scattered minimal punctate areas of demyelination seen not expected for the patient's age, sinus disease. Renal function normal. . Family/friend interactions Message from daughterIra to see if I called her. Left message to offer medical update. Number provided. . (Sandra Mccabe) Advance Directives Living Will: Never completed Health Care Surrogate: Never completed Durable Power of Cage Cashier: Never completed (Sandra Mccabe) Advance Directive Specifics Health Care Surrogate(s): Patient is currently incapacitated, uncertain if he will regain capacity. Patient is single. Has 1 son (Drake Andrews) and 2 daughters (Ira Mcgovern and Krystyna Palma). According to [place] statutes, health care proxy decision- making would fall to the majority of adult children. Krystyna Roth and Drake wish to particpate. . Significant change in goals: FULL CODE. Family considering CODE status. Wants to proceed with tracheostomy. Continue aggressive care for now. . (Sandra Mccabe) Objective Vital Signs Date Time Temp Pulse Resp B/P (MAP) Pulse Ox O2 Delivery O2 Flow Rate FiO2 11/27/16 11:00 95 50 11/27/16 11:00 129 11/27/16 10:00 96 11/27/16 09:00 98 11/27/16 09:00 98 16 93/57 (69) 94 11/27/16 08:00 96.9 97 16 108/64 (79) 95 11/27/16 08:00 97 11/27/16 08:00 50 11/27/16 07:51 94 50 11/27/16 07:00 98 11/27/16 06:00 99 11/27/16 04:30 95 50 11/27/16 04:00 98.8 86 16 128/79 (95) 90 11/27/16 04:00 50 11/27/16 04:00 86 11/27/16 02:00 74 11/27/16 01:12 93 50 11/27/16 00:00 98.6 97 31 109/76 (87) 93 11/27/16 00:00 97 11/27/16 00:00 50 11/26/16 22:16 92 60 11/26/16 22:00 127 11/26/16 21:00 106 17 101/72 (82) 93 11/26/16 20:12 92 60 11/26/16 20:00 99.2 11/26/16 20:00 60 11/26/16 19:45 95 100 11/26/16 18:00 72 11/26/16 17:07 93 60 11/26/16 16:00 98.9 93 17 149/88 (108) 93 11/26/16 16:00 60 11/26/16 16:00 93 11/26/16 14:00 90 11/26/16 14:00 90 18 161/91 (114) 95 11/26/16 14:00 60 11/26/16 12:00 98.1 77 21 146/80 (102) 89 11/26/16 12:00 80 11/26/16 12:00 73 Intake & Output 11/27/16 11/27/16 07:00 19:00 Intake Total 1291 ml 100 ml Output Total 1300 ml Balance -9 ml 100 ml IV Total 1000 ml 100 ml Tube Feeding 191 ml Other 100 ml Output Urine Total 1000 ml Stool Total 300 ml Physical Exam CONSTITUTIONAL/GENERAL: This is an overweight, critically ill patient, on mechanical ventilation. TUBES/LINES/DRAINS: ETT, OG, left upper PIC line, PIV left forearm, bilateral soft wrist restraints, Ashley Shield, Santiago catheter, SCDs, right chest tube. SKIN: No jaundice, rashes, or lesions. Ecchymoses on upper extremities. Abrasion / scab on right knee. Skin temperature appropriate. Not diaphoretic. EYES: eyes open, blinks to threat, tracking intermittently. ENT: unable to assess hearing given clinical condition. Nose without bleeding or purulent drainage. Throat difficult to visualize secondary to tubes. CARDIOVASCULAR: tachycardic, rate 129. RESPIRATORY/CHEST: Labored respiration on mech vent. FiO2 50%, PEEP 10. Right chest tube. GASTROINTESTINAL: Abdomen soft, nondistended. Bowel sounds present. Tolerating tube feeding. GENITOURINARY: Without palpable bladder distension. Santiago catheter in place. MUSCULOSKELETAL: Extremities with 3+ edema. NEUROLOGICAL: Eyes open, tracking and blinks to threat. Nods yes/ no weakly. Opens and closes eyes on command. Does not squeeze my hand or wiggle toes on command. PSYCHIATRIC: Intermittent grimacing. . (Sandra Mccabe) Diagnostic Tests Laboratory Laboratory Tests Test 11/24/16 19:30 11/24/16 20:30 11/24/16 22:10 11/25/16 05:45 Activated Partial Thromboplast Time 104.8 SEC (24.3-30.1) 28.1 SEC (24.3-30.1) 31.0 SEC (24.3-30.1) Potassium Level 4.1 MEQ/L (3.5-5.1) 3.9 MEQ/L (3.5-5.1) White Blood Count 14.5 TH/MM3 (4.0-11.0) Red Blood Count 3.93 MIL/MM3 (4.50-5.90) Hemoglobin 12.3 GM/DL (13.0-17.0) Hematocrit 37.2 % (39.0-51.0) Mean Corpuscular Volume 94.7 FL (80.0-100.0) Mean Corpuscular Hemoglobin 31.4 PG (27.0-34.0) Mean Corpuscular Hemoglobin Concent 33.1 % (32.0-36.0) Red Cell Distribution Width 14.6 % (11.6-17.2) Platelet Count 157 TH/MM3 (150-450) Mean Platelet Volume 7.9 FL (7.0-11.0) Neutrophils (%) (Auto) 90.3 % (16.0-70.0) Lymphocytes (%) (Auto) 3.4 % (9.0-44.0) Monocytes (%) (Auto) 5.6 % (0.0-8.0) Eosinophils (%) (Auto) 0.2 % (0.0-4.0) Basophils (%) (Auto) 0.5 % (0.0-2.0) Neutrophils # (Auto) 13.1 TH/MM3 (1.8-7.7) Lymphocytes # (Auto) 0.5 TH/MM3 (1.0-4.8) Monocytes # (Auto) 0.8 TH/MM3 (0-0.9) Eosinophils # (Auto) 0.0 TH/MM3 (0-0.4) Basophils # (Auto) 0.1 TH/MM3 (0-0.2) CBC Comment AUTO DIFF Differential Total Cells Counted 100 Neutrophils % (Manual) 92 % (16-70) Band Neutrophils % 1 % (0-6) Lymphocytes % 1 % (9-44) Monocytes % 4 % (0-8) Neutrophils # (Manual) 13.8 TH/MM3 (1.8-7.7) Metamyelocytes 1 % (0-1) Myelocytes 1 % (0-0) Nucleated Red Blood Cells 1 /100 WBC (0-0) Differential Comment FINAL DIFF MANUAL Platelet Estimate NORMAL (NORMAL) Platelet Morphology Comment NORMAL (NORMAL) Red Cell Morphology Comment NORMAL (NORMAL) Blood Urea Nitrogen 14 MG/DL (7-18) Creatinine 0.32 MG/DL (0.60-1.30) Random Glucose 177 MG/DL (74-106) Calcium Level 8.0 MG/DL (8.5-10.1) Phosphorus Level 2.0 MG/DL (2.5-4.9) Magnesium Level 1.8 MG/DL (1.5-2.5) Sodium Level 136 MEQ/L (136-145) Chloride Level 96 MEQ/L (98-107) Carbon Dioxide Level 31.6 MEQ/L (21.0-32.0) Anion Gap 8 MEQ/L (5-15) Estimat Glomerular Filtration Rate 288 ML/MIN (>89) Test 11/25/16 08:20 11/25/16 12:55 11/25/16 21:50 11/26/16 04:30 Vancomycin Level Trough 12.3 MCG/ML (5.0-10.0) Activated Partial Thromboplast Time 30.8 SEC (24.3-30.1) 34.0 SEC (24.3-30.1) 32.9 SEC (24.3-30.1) White Blood Count 17.4 TH/MM3 (4.0-11.0) Red Blood Count 4.10 MIL/MM3 (4.50-5.90) Hemoglobin 12.7 GM/DL (13.0-17.0) Hematocrit 38.7 % (39.0-51.0) Mean Corpuscular Volume 94.5 FL (80.0-100.0) Mean Corpuscular Hemoglobin 30.9 PG (27.0-34.0) Mean Corpuscular Hemoglobin Concent 32.8 % (32.0-36.0) Red Cell Distribution Width 14.4 % (11.6-17.2) Platelet Count 171 TH/MM3 (150-450) Mean Platelet Volume 7.8 FL (7.0-11.0) Neutrophils (%) (Auto) 90.3 % (16.0-70.0) Lymphocytes (%) (Auto) 3.0 % (9.0-44.0) Monocytes (%) (Auto) 5.8 % (0.0-8.0) Eosinophils (%) (Auto) 0.1 % (0.0-4.0) Basophils (%) (Auto) 0.8 % (0.0-2.0) Neutrophils # (Auto) 15.7 TH/MM3 (1.8-7.7) Lymphocytes # (Auto) 0.5 TH/MM3 (1.0-4.8) Monocytes # (Auto) 1.0 TH/MM3 (0-0.9) Eosinophils # (Auto) 0.0 TH/MM3 (0-0.4) Basophils # (Auto) 0.1 TH/MM3 (0-0.2) CBC Comment AUTO DIFF Differential Total Cells Counted 100 Neutrophils % (Manual) 69 % (16-70) Band Neutrophils % 19 % (0-6) Lymphocytes % 1 % (9-44) Monocytes % 10 % (0-8) Neutrophils # (Manual) 15.5 TH/MM3 (1.8-7.7) Metamyelocytes 1 % (0-1) Differential Comment FINAL DIFF MANUAL Platelet Estimate NORMAL (NORMAL) Platelet Morphology Comment NORMAL (NORMAL) Prothrombin Time 10.7 SEC (9.8-11.6) Prothromb Time International Ratio 1.0 RATIO Blood Urea Nitrogen 11 MG/DL (7-18) Creatinine 0.25 MG/DL (0.60-1.30) Random Glucose 184 MG/DL (74-106) Calcium Level 7.8 MG/DL (8.5-10.1) Phosphorus Level 1.9 MG/DL (2.5-4.9) Magnesium Level 1.7 MG/DL (1.5-2.5) Sodium Level 134 MEQ/L (136-145) Potassium Level 3.7 MEQ/L (3.5-5.1) Chloride Level 95 MEQ/L (98-107) Carbon Dioxide Level 31.9 MEQ/L (21.0-32.0) Anion Gap 7 MEQ/L (5-15) Estimat Glomerular Filtration Rate 383 ML/MIN (>89) Digoxin Level 0.5 NG/ML (0.8-2.0) Test 11/26/16 11:07 11/26/16 18:44 11/27/16 01:20 11/27/16 04:00 Activated Partial Thromboplast Time 32.1 SEC (24.3-30.1) 33.1 SEC (24.3-30.1) 36.9 SEC (24.3-30.1) 38.5 SEC (24.3-30.1) White Blood Count 20.0 TH/MM3 (4.0-11.0) Red Blood Count 4.17 MIL/MM3 (4.50-5.90) Hemoglobin 12.8 GM/DL (13.0-17.0) Hematocrit 39.1 % (39.0-51.0) Mean Corpuscular Volume 93.8 FL (80.0-100.0) Mean Corpuscular Hemoglobin 30.6 PG (27.0-34.0) Mean Corpuscular Hemoglobin Concent 32.6 % (32.0-36.0) Red Cell Distribution Width 14.7 % (11.6-17.2) Platelet Count 189 TH/MM3 (150-450) Mean Platelet Volume 7.8 FL (7.0-11.0) Neutrophils (%) (Auto) 91.2 % (16.0-70.0) Lymphocytes (%) (Auto) 3.6 % (9.0-44.0) Monocytes (%) (Auto) 4.7 % (0.0-8.0) Eosinophils (%) (Auto) 0.3 % (0.0-4.0) Basophils (%) (Auto) 0.2 % (0.0-2.0) Neutrophils # (Auto) 18.3 TH/MM3 (1.8-7.7) Lymphocytes # (Auto) 0.7 TH/MM3 (1.0-4.8) Monocytes # (Auto) 0.9 TH/MM3 (0-0.9) Eosinophils # (Auto) 0.1 TH/MM3 (0-0.4) Basophils # (Auto) 0.0 TH/MM3 (0-0.2) CBC Comment AUTO DIFF Differential Total Cells Counted 100 Neutrophils % (Manual) 65 % (16-70) Band Neutrophils % 29 % (0-6) Lymphocytes % 2 % (9-44) Monocytes % 1 % (0-8) Neutrophils # (Manual) 19.4 TH/MM3 (1.8-7.7) Metamyelocytes 1 % (0-1) Myelocytes 2 % (0-0) Differential Comment FINAL DIFF MANUAL Toxic Granulation (NORMAL) Blood Urea Nitrogen 9 MG/DL (7-18) Creatinine 0.19 MG/DL (0.60-1.30) Random Glucose 162 MG/DL (74-106) Calcium Level 7.9 MG/DL (8.5-10.1) Phosphorus Level 2.1 MG/DL (2.5-4.9) Magnesium Level 1.6 MG/DL (1.5-2.5) Sodium Level 135 MEQ/L (136-145) Potassium Level 3.6 MEQ/L (3.5-5.1) Chloride Level 95 MEQ/L (98-107) Carbon Dioxide Level 31.8 MEQ/L (21.0-32.0) Anion Gap 8 MEQ/L (5-15) Estimat Glomerular Filtration Rate 525 ML/MIN (>89) (Sandra Mccabe) Result Diagram: 11/27/1639911/27/16399 Microbiology Microbiology Date/Time Source Procedure Growth Status 11/23/16 19:26 Blood Peripheral Aerobic Blood Culture - Preliminary NO GROWTH IN 4 DAYS Resulted 11/23/16 19:26 Blood Peripheral Anaerobic Blood Culture - Preliminary NO GROWTH IN 4 DAYS Resulted 11/08/16 14:15 Stool Stool Stool Occult Blood (TYLER) - Final HEMOCCULT NEGATIVE Complete 11/23/16 14:50 Sputum Endotracheal Gram Stain - Final Complete 11/23/16 14:50 Sputum Culture - Final Klebsiella Pneumoniae Pseudomonas Aeruginosa Complete 11/11/16 01:15 Urine Catheterized Urine Urine Culture - Final Ana Albicans Complete Imaging Last Impressions Brain MRI 11/26/16 0000 Signed Impressions: Service Date/Time: Saturday, November 26, 2016 19:52 - CONCLUSION: 1. Small focal signal abnormality in the superior medial left frontal lobe. This is nonspecific. This could be the sequela from prior insult such as a contusion or small infarct. An acute infarct is not seen. A small underlying lesion could have a similar appearance. One could perform a contrast-enhanced study to determine if there is any enhancement associated with this region. 2. There are a few scattered minimal punctate areas of demyelination seen not expected for the patient's age. 3. Sinus disease. Jayson Soto MD Chest X-Ray 11/24/16 0000 Signed Impressions: Service Date/Time: Thursday, November 24, 2016 08:00 - CONCLUSION: Stable lines and tubes. The right pneumothorax is no longer visualized. There is overall slight increase within the right basilar airspace consolidation and pleural fluid. Small left-sided pleural fusion and overlying atelectasis is stable. Rose Nicole MD Lower Extremity Ultrasound 11/09/16 0000 Signed Impressions: Service Date/Time: Wednesday, November 09, 2016 14:13 - CONCLUSION: Normal examination. Jayson Manning MD Liver Ultrasound 11/09/16 0000 Signed Impressions: Service Date/Time: Wednesday, November 09, 2016 13:58 - CONCLUSION: Sono dense liver without duct dilatation. 4 mm common duct. Ward Kim MD FACR Chest CT 11/06/16 0000 Signed Impressions: Service Date/Time: Sunday, November 06, 2016 11:24 - CONCLUSION: 1. Dense bilateral posterior lower lobe airspace consolidation consistent with aspiration versus less likely pneumonia. 2. Linear consolidation in the right middle lobe consistent with atelectasis versus aspiration. 3. Trace left and small right pleural effusions. 4. Support lines and tubes in good position. 5. Prominent coronary artery calcifications. Nico Vaughan MD Head CT 11/05/16 0000 Signed Impressions: Service Date/Time: Saturday, November 05, 2016 21:43 - CONCLUSION: 1. No acute intracranial abnormalities. Pansinus fluid opacification. Cristofer De Santiago MD Abdomen X-Ray 10/29/16 0600 Signed Impressions: Service Date/Time: Saturday, October 29, 2016 04:41 - CONCLUSION: Nonspecific , nonobstructive bowel gas pattern. No evidence of free air. Jayson Taylor MD Carotid Artery Ultrasound 10/25/16 0000 Signed Impressions: Service Date/Time: September 08:27 - CONCLUSION: Mild to moderate plaque in both carotid systems with less than 40%% diameter stenosis by velocity criteria. Jhonathan Dietz MD CT Angiography 10/25/16 0000 Signed Impressions: Service Date/Time: , October 25, 2016 06:12 - CONCLUSION: 1. Negative for pulmonary embolism. 2. There is a fairly large area of masslike consolidation in the medial right lung involving posterior segment right upper lobe and medial aspect of right lower lobe. There is associated right hilar and mediastinal adenopathy measuring up to 2.1 cm. Differential diagnosis includes pneumonia or underlying lung neoplasm. Close followup imaging recommended after treatment for pneumonia, to assess for underlying mass. Cristofer De Santiago MD Procedures * 11/23/16 - right chest tube placement. * 11/10/16 - ETT replaced. * 11/04/16 - arterial line placement. * 10/25/16 - Intubation and central line placed. . (Sandra Mccabe) Assessment and Plan Disease Oriented Problem List: (1) Acute respiratory failure (2) ARDS (adult respiratory distress syndrome) (3) COPD (chronic obstructive pulmonary disease) (4) Obesity hypoventilation syndrome (5) Anoxic encephalopathy (6) Metabolic encephalopathy (7) Atrial flutter (8) Leukocytosis (9) Sepsis (10) Hyperglycemia (11) Morbid obesity (12) Tobacco use (13) Hypertension Symptom Scale: (1) Pain 0-10 Scale: Unable to quantify Comment: On Fentanyl drip. (2) Dyspnea 0-10 Scale: Unable to quantify (3) Encephalopathy 0-10 Scale: Unable to quantify Pertinent Non-Medical Issues Psychosocial: notes indicate patient is single. Has one son and one daughter. Was living with his son prior to admission. Spiritual: unknown. Legal: Patient is currently incapacitated, uncertain if he will regain capacity. Patient is single. Has 1 son (Drake Andrews) and 2 daughters ( Ira Mcgovern and Krystyna Palma). According to [place] statutes, health care proxy decision-making would fall to the majority of adult children. Dorothea Roth wish to particpate. Ethical issues impacting care: no known concerns at this time. . Important Contacts * Ira Mcgovern, daughter/ HCP: [phone] (cell) or [phone] ext. [phone] (work) * Drake Andrews, son/ HCP: [phone] (cell) or [phone] (work) * Krystyna Palma, daughter/ HCP: [phone] * Drake Henry girlfriend: [phone] . . Prognosis Mr. Andrews is an unfortunate 56-year-old male who was admitted with respiratory distress, pneumonia, ARDS with prolonged hospitalization/mechanical ventilation still requiring high FI 02 and PEEP needs, unable to proceed with tracheostomy/ PEG tube given medical instability, high oxygen needs. Overall condition does not appear to be improving. . Code Status: Full Code Plan * Decision Maker: Patient is currently incapacitated, uncertain if he will regain capacity. Patient is single. Has 1 son (Drake Andrews) and 2 daughters ( Ira Mcgovern and Krystyna Palma). According to [place] statutes, health care proxy decision-making would fall to the majority of adult children. Dorothea Roth wish to particpate. * FULL CODE - family considering code status. * Family considering CODE status. Wants to proceed with tracheostomy. Continue aggressive care for now. * SYMPTOMS: Pain: potential sources of pain include COPD, intubation, prolonged hospitalization, bedbound status, chest tube, infection, etc. on fentanyl drip, intermittent grimacing during physical exam. Given underlying encephalopathy no new pain medication recommendations at this time. Dyspnea: remains on prolonged mechanical ventilation requiring high Fi02 and PEEP support. Has been too unstable for tracheostomy. Encephalopathy: patient with possible anoxic encephalopathy. No new medication recommendations at this time. * Palliative care will continue to follow throughout hospital course to assist with symptom management and clarification of goals as needed. . (Sandra Mccabe) Attestation To help prompt me to consider important information that might be impacting today's encounter and assessment, information from prior notes written by myself or my colleagues may have been "brought forward" into today's note. My signature on this note, however, is an attestation that I personally performed the exam, history, and/or decision-making noted today, and, unless otherwise indicated, the interactions with patient, family, and staff as well as the review of records all occurred today. I also attest that the listed assessment and stated plan reflect my best clinical judgment today based on the combination of historical information, prior notes, and today's exam/ interactions. When time spent is documented, it refers only to time spent today by the signer, or if indicated, combined time spent today by collaborating physician/nurse practitioner. (Sandra Mccabe) Collaborating MD Comments Chart reviewed. Case discussed with palliative care CARGO MATE. Above CARGO MATE note reviewed and I concur. . (Willem Elmore MD) Sandra Mccabe Nov 27, 2016 12:12 Willem Elmore MD Dec 02, 2016 15:47
[2016-11-27] MEDS ORDERED: BUPIVACAINE/EPINEPHRINE 0.5% PF 30 ML VIAL INFIL ONE (13:16)
[2016-11-27] MEDS: LABETALOL HCL 100 MG/20 ML VIAL IV PUSH PRN ×3 (14:35→22:43)
--- NOTE | 2016-11-27 16:41 | HHI.PR ---
Immediate Post Op Note Procedure Date: Nov 27, 2016 Pre Op Diagnosis: acute respiratory failure Post Op Diagnosis: same Surgeon: Jerry Martin MD Electronics Commodity Manager(s): none Procedure: percutaneous tracheostomy placement Findings: good et co2, bilateral bs Complications: none Specimen(s) removed: none Estimated blood loss: 5cc Anesthesia: General Drains: None Patient to: PACU Patient Condition: Good Jerry Martin MD Nov 27, 2016 16:41
[2016-11-27] MEDS ORDERED: DO NOT ADM ANY ANTICOAGULANT DRUGS PRN (18:00)
--- NOTE | 2016-11-27 20:56 | MP ---
cc: JERRY MARTIN MD DATE OF SURGERY: 11/27/2016 PREOPERATIVE DIAGNOSIS: Acute respiratory failure, ARDS. POSTOPERATIVE DIAGNOSIS: Acute respiratory failure, ARDS. PROCEDURE PERFORMED: Percutaneous tracheostomy in OR SURGEON: Dr. Jerry Martin SPECIAL EQUIPMENT TECHNICIAN: See OR sheet ANESTHESIA GETA. IV FLUIDS See anesthesia sheet. ESTIMATED BLOOD LOSS: 5 cc DRAINS: None. COMPLICATIONS: None. WOUND CLASSIFICATION Clean FINDINGS A good end-tidal CO2, bilateral breath sounds. SPECIMEN: None. INDICATION The patient is a 56-year-old male who presented with acute respiratory failure. The patient has had prolonged ventilatory dependence approximately 30 days. Therefore discussion and decision for tracheostomy placement. PROCEDURE IN DETAIL The patient was taken to the operating suite, placed in supine position. He was prepped and draped in usual sterile fashion to the neck in the usual way. The patient was already on ventilator under anesthesia. Brief time-out done stating correct patient, procedure, surgical site, all were in agreement with this. The critical landmarks were identified including the sternal notch and cricocartilage and cricothyroid membrane, just distal to this. Local anesthetic injected, midline incision made with a 15 blade. Further dissection with Bovie cautery. The Bovie put away and the patient's oxygen made to 100% FIO2. Clearly dissection was done with a hemostat down to the trachea. Once the trachea was adequately visualized and palpated, the second and third tracheal ring was identified. The ET tube was slowly brought back by anesthesia. The large bore needle with the introducer catheter was noted and aspirated until evidence of bubbling in the syringe to confirm intratracheal placement. The guide wire was placed. The needle was removed. The punch dilator was done to dilate the trachea. Next the blue rhino trachea dilator was used to further dilate the trachea. This was removed. The wire remained in place. The tracheostomy was introduced over the wire and secured in place with the trachea and the inner contents removed. The adapter apparatus was placed through the trachea and the trachea was hooked to the ventilator. Confirmation of end-tidal CO2 was done along with breath sound auscultation. The trachea was then secured with 2-0 nylon sutures x4 and tracheostomy ties were placed. Hemostasis was obtained initially with electro Bovie cautery. The patient tolerated the procedure well. No intraoperative complications. The patient was taken to ICU. MD ESTEBAN Amaro /6:32 PM /8:38 PM
[2016-11-27] MEDS: HEPARIN 25,000 UNITS-D5W 250 ML - PREMIX IV SCH (21:12)
[2016-11-28] VITALS (19 sets, daily range): BP systolic 94–166; BP diastolic 55–91; PULSE 73–134; RESP 4–20; TEMP 97.7–99.4; O2SAT 89–99
[2016-11-28] MEDS: DILTIAZEM HCL 90 MG TAB PO SCH ×4 (00:28→17:21)
[2016-11-28 00:47] LABS: APTT (PATIENT) 40.6 SEC (24.3-30.1)
[2016-11-28] MEDS: PROPOFOL 1000 MG/100 ML IV PRN ×10 (01:51→23:09)
[2016-11-28] MEDS: fentaNYL DRIP 250 ML IV PRN ×3 (02:26→21:00)
[2016-11-28] MEDS: METOPROLOL TARTRATE 5 MG/5 ML VIAL IV PUSH PRN ×4 (02:48→09:23)
[2016-11-28] MEDS: CHLORHEXIDINE GLUCONATE 2 % 1 PACK (2 CLOTHS) TOP SCH (04:00)
[2016-11-28] MEDS: INSULIN NovoLIN REGULAR SUPPLEMENTAL SCALE SQ SCH ×6 (04:00→20:00)
[2016-11-28] MEDS: PIPERACIL-TAZO 4.5 GM PREMIX 100 ML IV SCH ×4 (04:12→23:09)
[2016-11-28 06:05] LABS: BASOPHIL # 0.1 TH/MM3 (0-0.2); BASOPHIL % 0.3 % (0.0-2.0); EOSINOPHIL % 0.3 % (0.0-4.0); HEMATOCRIT 38.1 % (39.0-51.0); LYMPH % 4.9 % (9.0-44.0); LYMPHOCYTE # 0.8 TH/MM3 (1.0-4.8); MEAN CELL VOLUME 93.8 FL (80.0-100.0); MEAN CORPUSCULAR HEMOGLOBIN 30.8 PG (27.0-34.0); MEAN CORPUSCULAR HGB CONC 32.9 % (32.0-36.0); MONO % 4.3 % (0.0-8.0); NEUT % 90.2 % (16.0-70.0); PLATELET COUNT 213 TH/MM3 (150-450); RED BLOOD COUNT 4.06 MIL/MM3 (4.50-5.90); RED CELL DISTRIBUTION WIDTH 14.6 % (11.6-17.2); WHITE BLOOD COUNT 16.7 TH/MM3 (4.0-11.0)
[2016-11-28] MEDS: METOPROLOL TARTRATE 50 MG TAB PO SCH ×4 (06:05→17:21)
[2016-11-28] MEDS: cloNIDine HCL 0.2 MG TAB OG-TUBE SCH ×3 (06:05→21:01)
[2016-11-28 06:09] LABS: APTT (PATIENT) 44.1 SEC (24.3-30.1)
[2016-11-28 06:16] LABS: HEMO FLAGS AUTO DIFF
[2016-11-28 06:22] LABS: BICARBONATE 33.8 MEQ/L (21.0-32.0); POTASSIUM 3.5 MEQ/L (3.5-5.1)
[2016-11-28] MEDS: RESP: BUDESONIDE 0.5 MG/2 ML NEB NEB SCH ×2 (07:55→20:21)
--- NOTE | 2016-11-28 08:02 | HHI.CCPN ---
Subjective Remarks/Hospital Course 56-year-old very pleasant gentleman with past medical history of COPD, and hypertension presents complaining of shortness of breath and nausea, generalized fatigue and chills for 2 days. He thinks it has been from being out in the heat. Denies any fever, chest pain, vomiting, abdominal pain, focal weakness or numbness. In the emergency department his saturation was in mid 80s on arrival with auditory wheezing and tachypnea. He was placed on 4 liters of NC and saturating in the low 90. He does not use oxygen at home. He also mentioned 2 days ago, he came home and was sitting in a chair and was taking his shoes off when he passed out. States he woke up and was still on the chair. This has never happen before. 10/25: Patient intubated secondary to increasing oxygen requirements, altered mental status. Discussed with son. Somewhat hypertensive post intubation. 10/26: Placed on rotaprone bed last evening. Flolan initiated. Saturations improved. Afebrile. Remains on Nimbex drip. 10/27: T max 99.7. Tolerated on not prone position 2 hours yesterday. Tolerating trickle feeds. FiO2 down to 55% 10/28: Tmax 99.9. When unprone for chest x-ray this a.m. desaturated. Currently on 90% FiO2. Actually hypertensive. No bowel movements. Remains paralyzed 10/29: Remains intubated sedated on continuous Prone therapy Except for chest x- ray. Fever 100.8. Panculture requested. Zyvox added. Continue IV sedation with propofol and fentanyl and Versed, neuromuscular paralysis with Nimbex 10/30: Prone cycle changed to 8 hr prone, 1 hr supine from 10/29. Due to hypoxia will continue with same cycle today. Chest x-ray remains unchanged. Patient remains severely hypoxemic FiO2 at 75% PEEP at 16. WBC count worsened to 18. Remains neuromuscularly paralyzed. 10/31: Patient remains critically ill but stable. Oxygen saturation 95% on 55 of FiO2 and PEEP of 16. Reduce PEEP to 14, FiO2 to 50% and start weaning Flolan. Increase supine time to 4 hours, reduce Prone time to 6 hours 11/01: Patient remains intubated sedated critically ill on neuromuscular paralysis. FiO2 reduced to 50, I will attempt PEEP wean gradually to 12 today. Prone/supine cycles will be changed to 6 hours each 11/02: FiO2 remains at 50%, PEEP reduced from 14 to 12 today, TV increased to 600 and RR to 20, in anticipation of discontinuing prone therapy, which will be DCd today. Off Flolan for 2 days 11/03: off pronation. fio2 up to 65% , peep 12. agitation causing desaturation. minimal improvements. 11/04: good diuresis yesterday, but despite that, fio2 persists at 65% and spo2 decreasing to 91% today. no real improvements and some worsening of pulmonary function despite ongoing aggressive therapies. still not safe for SBT given hypoxia. also severely hypertensive this morning. 11/05: continues to diurese well and Cr still at baseline. fio2 at 90% however, and no clinical improvements in mental status or hypoxia. still unsafe for SBT given hypoxemia. off pathway. hypertension under much better control. poor neuro status is concerning. 11/06: Remains severely hypoxemic. FiO2 was 100% PEEP 14. I reduce FiO2 to 90% after increasing PEEP to 16. Developed a flutter with RVR overnight, currently on Cardizem drip. Unable to do SBT due to very high settings 11/07: Remains hypoxemic and but able to wean FiO2 down to 80% with PEEP of 16. Remains unresponsive on sedation. Unable to trach due to his high vent settings and high FiO2. Remains on Cardizem and 15 mg per hour, with rate controlled a flutter. We'll start by mouth Cardizem in an attempt to wean IV Cardizem 11/08: Remains critically ill hypoxic but FiO2 now weaned to 60%, PEEP remains at 16. Very heavily sedated no withdrawal to pain. Will hold all continuos sedation. Sputum culture with Klebsiella sensitive to Rocephin. A flutter persistent, will start IV heparin 11/09 Patient is sedated with Diprivan and intubated, On Cardizem drip 15mg/hr for Aflutter. Heparin drip stated yesterday. 11/10 Patient remains sedated and intubated. On Heparin drip. Persistent fever with Tmax 102.5. ETT was replaced yesterday. 11/11 Patient was placed on Cardizem and amio drips overnight for Afib with RVR. Sedated with Diprivan and intubated. On Heparin drip. T;99.3 this morning. 11/12 Patient remains intubated and sedated with Diprivan. On Cardizem drip 15mg/ hr. Afebrile, Tmax 100.6 11/13 Patient is sedate with Diprivan and intubated. In Afib with RVR now on Amio drip. Tmax 100,4 11/14 Remains intubated sedated with propofol and fentanyl. Afib rate controlled , remains on amiodarone and Cardizem gtt. Fio2 remains high at 70%, PEEP 12. CXR persistent bibasilar infiltrates/effusion 11/15: Currently sedated with propofol and fentanyl drips. Currently in A. fib/ flutter on amiodarone drip and Cardizem drip. PEEP increased to 14. FiO2 65. 11/16: Tmax 100.1. Patient more alert and tachycardic this AM. Adding midazolam gtt for sedation and currently tolerating tube feeding. Positive BM. PEEP to 12. FiO2 75% 11/17: Afebrile. FiO2 down to 60%. PEEP set 12. Multiple tracheostomy hopefully on Saturday. Heart rate better control. 11/18: Afebrile. Discontinuing amiodarone drip today and switching to oral. FiO2 between 60 and 70%. Restarting epoprostenol in attempt to get FiO2 down to 50% for tracheostomy tomorrow 11/19 No events overnight. Sedated with Diprivan, Fentanyl and versed. Still requiring high O2 - on PRVC with PEEP;12 and FIO2 70%. Afebrile. 11/20 Patient remains sedated with Diprivan, versed, Fentanyl and intubated. On PRVC with PEEP: 12, FIO2 50% , sats 88-90%. On Heparin drip. Subjective 11/21: Tmax 99.4. Tolerating tube feeds. Remains on heparin drip. FiO2 down to 55%. PEEP of 10. Eyes open blinks spontaneously. Does squeeze and weakly on left side with encouragement 11/22: Intubated heavily sedated. FiO2 50%, remains on Flolan. PEEP 10. Bumex 1 mg 1 and Diamox 500 mg 1 IV. She will negative balance. Heparinized tube feeds on hold for tracheostomy today at 12. Remains in atrial flutter 11/23 Patient remains sedated with Diprivan, Fentanyl, Versed and intubated. On Heparin drip. For CT guided thoracentesis today. On APRV 11/24 Patient remains sedated and intubated. 20Fr CT placed yesterday for right sided PTX. Spiked fever with T 101.6. Remains on Heparin drip. 11/25 Patient remains intubated with Diprivan, fentanyl and intubated. On PRVC with PEEP: 10, FIO2 50%. Afebrile. 11/26 Patient is sedated with Diprivan, Fentanyl and intubated. Afebrile. On Heparin drip. On PRVC with PEEP: 10, FIO2 60% 11/27 Patient is scheduled for trach in OR today. Sedated and intubated. Heparin drip is off for trach. 11/28 Patient s/p trach yesterday. Sedated with Diprivan and Fentanyl. Afebrile. On PRVC with PEEP; 10 and FIO2 50% Objective Vital Signs Date Time Temp Pulse Resp B/P (MAP) Pulse Ox O2 Delivery O2 Flow Rate FiO2 11/28/16 07:45 96 50 11/28/16 06:00 128 11/28/16 04:00 98.8 20 141/74 (96) 11/24/16 20:24 Ventilator Intake and Output 11/28/16 11/28/16 11/29/16 08:00 16:00 00:00 Intake Total 770 ml Output Total 1200 ml Balance -430 ml Result Diagram: 11/28/16 0530 11/28/16 0530 Other Results Laboratory Tests Test 11/28/16 00:00 11/28/16 05:30 Activated Partial Thromboplast Time 40.6 SEC 44.1 SEC White Blood Count 16.7 TH/MM3 Red Blood Count 4.06 MIL/MM3 Hemoglobin 12.5 GM/DL Hematocrit 38.1 % Mean Corpuscular Volume 93.8 FL Mean Corpuscular Hemoglobin 30.8 PG Mean Corpuscular Hemoglobin Concent 32.9 % Red Cell Distribution Width 14.6 % Platelet Count 213 TH/MM3 Mean Platelet Volume 7.6 FL Neutrophils (%) (Auto) 90.2 % Lymphocytes (%) (Auto) 4.9 % Monocytes (%) (Auto) 4.3 % Eosinophils (%) (Auto) 0.3 % Basophils (%) (Auto) 0.3 % Neutrophils # (Auto) 15.0 TH/MM3 Lymphocytes # (Auto) 0.8 TH/MM3 Monocytes # (Auto) 0.7 TH/MM3 Eosinophils # (Auto) 0.0 TH/MM3 Basophils # (Auto) 0.1 TH/MM3 CBC Comment AUTO DIFF Blood Urea Nitrogen 11 MG/DL Creatinine 0.17 MG/DL Random Glucose 147 MG/DL Calcium Level 7.7 MG/DL Sodium Level 134 MEQ/L Potassium Level 3.5 MEQ/L Chloride Level 96 MEQ/L Carbon Dioxide Level 33.8 MEQ/L Anion Gap 4 MEQ/L Estimat Glomerular Filtration Rate 597 ML/MIN Imaging Last Impressions Brain MRI 11/26/16 0000 Signed Impressions: Service Date/Time: Saturday, November 26, 2016 19:52 - CONCLUSION: 1. Small focal signal abnormality in the superior medial left frontal lobe. This is nonspecific. This could be the sequela from prior insult such as a contusion or small infarct. An acute infarct is not seen. A small underlying lesion could have a similar appearance. One could perform a contrast-enhanced study to determine if there is any enhancement associated with this region. 2. There are a few scattered minimal punctate areas of demyelination seen not expected for the patient's age. 3. Sinus disease. Jayson Soto MD Chest X-Ray 11/24/16 0000 Signed Impressions: Service Date/Time: Thursday, November 24, 2016 08:00 - CONCLUSION: Stable lines and tubes. The right pneumothorax is no longer visualized. There is overall slight increase within the right basilar airspace consolidation and pleural fluid. Small left-sided pleural fusion and overlying atelectasis is stable. Rose Nicole MD Lower Extremity Ultrasound 11/09/16 0000 Signed Impressions: Service Date/Time: Wednesday, November 09, 2016 14:13 - CONCLUSION: Normal examination. Jayson Manning MD Liver Ultrasound 11/09/16 0000 Signed Impressions: Service Date/Time: Wednesday, November 09, 2016 13:58 - CONCLUSION: Sono dense liver without duct dilatation. 4 mm common duct. Ward Kim MD FACR Chest CT 11/06/16 0000 Signed Impressions: Service Date/Time: Sunday, November 06, 2016 11:24 - CONCLUSION: 1. Dense bilateral posterior lower lobe airspace consolidation consistent with aspiration versus less likely pneumonia. 2. Linear consolidation in the right middle lobe consistent with atelectasis versus aspiration. 3. Trace left and small right pleural effusions. 4. Support lines and tubes in good position. 5. Prominent coronary artery calcifications. Nico Vaughan MD Head CT 11/05/16 0000 Signed Impressions: Service Date/Time: Saturday, November 05, 2016 21:43 - CONCLUSION: 1. No acute intracranial abnormalities. Pansinus fluid opacification. Cristofer De Santiago MD Abdomen X-Ray 10/29/16 0600 Signed Impressions: Service Date/Time: Saturday, October 29, 2016 04:41 - CONCLUSION: Nonspecific , nonobstructive bowel gas pattern. No evidence of free air. Jayson Taylor MD Carotid Artery Ultrasound 10/25/16 0000 Signed Impressions: Service Date/Time: September 08:27 - CONCLUSION: Mild to moderate plaque in both carotid systems with less than 40%% diameter stenosis by velocity criteria. Jhonathan Dietz MD CT Angiography 10/25/16 0000 Signed Impressions: Service Date/Time: September 06:12 - CONCLUSION: 1. Negative for pulmonary embolism. 2. There is a fairly large area of masslike consolidation in the medial right lung involving posterior segment right upper lobe and medial aspect of right lower lobe. There is associated right hilar and mediastinal adenopathy measuring up to 2.1 cm. Differential diagnosis includes pneumonia or underlying lung neoplasm. Close followup imaging recommended after treatment for pneumonia, to assess for underlying mass. Cristofer De Santiago MD Objective Remarks GENERAL: 56-year-old male, critically ill orotracheally intubated, heavily sedated SKIN: Warm and dry. Positive intertrigo HEAD: Atraumatic. Normocephalic. EYES: Pupils equal and round about 3 mm bilaterally and reactive. No scleral icterus. No injection or drainage. ENT: No nasal bleeding or discharge. Orotracheally intubated NECK: Trachea midline. No JVD. CARDIOVASCULAR: Atrial fibrillation rate controlled, IR. S1, S2 no S4. Diminished heart sounds. Without murmur, clicks, or rubs RESPIRATORY: Bilateral wheezes and rhonchi appreciated. Diminished. GASTROINTESTINAL: Abdomen soft, obese. Hypoactive bowel sounds appreciated MUSCULOSKELETAL: Extremities with trace lower extremity bilateral edema. No obvious deformities. NEUROLOGICAL: Withdraws to pain. Opens eyes intermittently. Positive gag. Positive corneal reflex. (Weakly follows commands by squeezing hands left greater than right side to Dr. Story 11/21/16 on sedation vacation) Date of Insertion: Nov 16, 2016 Line: PICC Side: Left Location: Antecubital A/P Assessment and Plan Neuro/Psych: CIM/SHEFALI s/p Neuromuscular paralysis for Prone therapy Agitated Delirium, Metabolic Encephalopathy Syncope On propofol,Fentanyl for sedation and vent synchrony. Goal of RASS -2 ,Daily sedation vacation MRI brain 11/26: Small focal signal abnormality in the superior medial left frontal lobe.This could be the sequela from prior insult such as a contusion or small infarct. An acute infarct is not seen. Neuro is following-Dr. Rdz prn hydromorphone for breakthrough. Haloperidol 5mg iv q4h prn for agitation. Brain CT on admission revealed no acute intracranial findings, CT brain 11/05- no acute findings. opacification of sinuses. Carotid ultrasound less than 50% stenosis bilaterally EEG 11/20: No seizure activity. EEG 11/09: severe encephalopathy PT/OT for range of motion CV: Atrial fib/ flutter with RVR Hypertension- On Amiodarone 400mg Q12, Digoxin 0.125 mg daily(Dig. level 0.5 on 11/26) On PO Cardizem 90 mg PO q6hr, Lopressor 50mg Q6, Clonidine 0.2mg Q8 for hypertension and Atrial fib/flutter Resume IV heparin for anticoagulation- Repeat echo with bubble study: 11/22: No shunt seen Echo 10/25 EF 60-65% Resp: Acute hypoxemic Respiratory failure - severe and persistent. s/p trach 11/27 Spontaneous Right sided PTX 2nd barotrauma Severe ARDS COPD exacerbation Pneumonia most likely community-acquired Obesity hypoventilation syndrome Tobacco use disorder On PRVC RR 16, TV 700, IT: 1.3, PEEP: 10, FIO2 50%. Continue with vent support keep sat >92% s/p trach 11/[address] Martin s/p 20Fr CT placed for right PTX 11/23, monitor CT drainage- Check CXR/ABG Gen surg consulted for trach placement-Dr. Martin CT pulmonary angio revealed no pulmonary embolus. Masslike consolidation in the posterior right upper lobe and medial right lower lobe. Lymphadenopathy to 1 cm right hilum and subcarinal. Atelectasis left lower lobe. Discontinued Prone therapy 11/02/16. Albuterol/ipratropium every 4 hours with albuterol every 2 hours when necessary dyspnea. Ventilator bundle, Budesonide 0.5 mg aerosols twice a day. Methylprednisolone 40 mg IV daily Pulmonary/Dr. Wynne following GI: Morbid Obesity Elevated LFT's Monitor LFT, US liver: No ductal dilatation Resume Tube feeds-Vital high protein 1.5 at 40ml/hr Famotidine 20 milligrams mg twice a day for GI prophylaxis /renal: Monitor renal function, I/O's, electrolytes replacement per protocol. GI consult for PEG tube placement Endo: Hyperglycemia- SSI Q4 for glycemic control. . Heme: Normocytic anemia Monitor CBC, coags- patient is on heparin drip ID: Severe sepsis Pneumonia Continue abx(Zosyn) Monitor for signs of infections ( Fever, WBC) Sputum cx 11/23: Kleb, Pseudomonas, Follow up on sputum cx 11/27 s/p (ceftriaxone and Diflucan course). ID is following-Dr. Patel s/p ceftriaxone 11/02-11/09 for Enterobacter pneumonia. Repeat sputum Klebsiella sensitive to Rocephin 10/29/16-Enterobacter in sputum, 11/06/16, 11/10 sputum- Klebsiella Urine Legionella and pneumococcal antigens negative and influenza negative C-diff PCR is negative Access RUE PICC placed 11/05 through 11/15 replaced 11/16 with left upper extremity PICC Prophylaxis - GI, famotidine - DVT - IV heparin gtt 11/09 Doppler US LE negative for DVT Palliative care is following Critical Care: The total critical care time was 30 minutes. Time to perform other separately billable procedures was not included in the critical care time. Chepe Carney MD Nov 28, 2016 08:02
[2016-11-28] MEDS: CHLORHEXIDINE 0.12% (ORAL KIT) 15 ML CUP MT SCH ×2 (08:16→20:29)
[2016-11-28] MEDS: POTASSIUM CHLOR 40 MEQ PREMIX 100 ML IV PRN (08:16)
[2016-11-28] MEDS: DIGOXIN 0.125 MG TAB PO SCH (08:17)
[2016-11-28] MEDS: methylPREDNISolone SOD SUCC 40 MG/1 ML VIAL IV SCH (08:17)
[2016-11-28] MEDS: AMIODARONE 200 MG TAB OG-TUBE SCH ×2 (08:17→21:01)
[2016-11-28] MEDS: FAMOTIDINE 20 MG TAB NG SCH ×2 (08:17→21:01)
[2016-11-28] MEDS: SODIUM CHLORIDE 0.9% FLUSH 10 ML FLUSH SCH ×2 (08:17→21:02)
[2016-11-28] MEDS: ARTIFICIAL TEARS OPTH OINT 3.5 APPLIC/3.5 GM TUBO EACH EYE SCH ×2 (08:18→21:03)
[2016-11-28] MEDS: SODIUM CHLORIDE 0.9% FLUSH 10 ML FLUSH IVF SCH (08:18)
[2016-11-28] MEDS: SODIUM CHLORIDE 0.9% FLUSH 10 ML FLUSH IV FLUSH SCH (09:00)
[2016-11-28 09:02] LABS: BLOOD GAS BASE EXCESS 7.3 mmol/L (-2-2); BLOOD GAS CARBOXYHEMOGLOBIN 1.3 % (0-4); BLOOD GAS HCO3 31 mmol/L (22-26); BLOOD GAS O2 HGB SATURATION 95 % (90-100); BLOOD GAS OXYGEN CONTENT 20.7 Vol % (12.0-20.0); BLOOD GAS PCO2 41 mmHg (38-42); BLOOD GAS PO2 85 mmHg (61-120); BLOOD GAS TOTAL HGB 15.6 G/DL (12.0-16.0); TEMP CORR TO 98.6
[2016-11-28 09:03] LABS: CRITICAL VALUE NO; OXYGEN DEVICE VENTILATOR
[2016-11-28 09:04] LABS: DRAW SITE LT RADIAL; FIO2 50 %; NUMBER OF ARTERIAL PUNCTURES 2; ULNAR PULSE PRESENT; VENT SETTINGS PRVC/AC
[2016-11-28 09:06] LABS: STAT NO
--- NOTE | 2016-11-28 09:24 | RADRPT ---
EXAM DATE/TIME: 11/28/2016 08:31 [facility] COMPARISON: CHEST SINGLE AP, November 24, 2016, 8:00. INDICATIONS : Respiratory distress. MEDICAL HISTORY : Chronic obstructive pulmonary disease. Hypertension Hypercholesterolemia. SURGICAL HISTORY : None. ENCOUNTER: Subsequent ACUITY: 1 month PAIN SCORE: Non-responsive. LOCATION: Bilateral Chest FINDINGS: Tracheostomy is present in good position. Nasogastric tube descends to the stomach. Left arm PICC candy e remains in satisfactory position. Right thoracostomy tube is stable. There is stable bibasilar pleu roparenchymal opacity. Cardiac contours are grossly unchanged. CONCLUSION: Interval tracheostomy without complication. Stable basilar infiltrates and effusions Jayson Manning MD on November 28, 2016 at 9:22 Board Certified Radiologist. This report was verified electronically.
[2016-11-28] MEDS: LABETALOL HCL 100 MG/20 ML VIAL IV PUSH PRN ×2 (09:29→11:48)
[2016-11-28 09:32] LABS: BANDS 24 % (0-6); METAMYELOCYTES 3 % (0-1); NEUTROPHIL # MANUAL DIFF 15.9 TH/MM3 (1.8-7.7); PLATELET ESTIMATE SMEAR NORMAL (NORMAL); PLATELET MORPHOLOGY NORMAL (NORMAL); POLYS (SEG NEUTROPHILS) 68 % (16-70); SCAN/DIFF FINAL DIFF MANUAL; WBC DIFF SAMPLE 100
[2016-11-28] MEDS: hydrALAZINE HCL 20 MG/ML VIAL IV PUSH PRN (09:50)
[2016-11-28] MEDS: HEPARIN 25,000 UNITS-D5W 250 ML - PREMIX IV SCH ×2 (11:03→23:14)
[2016-11-28 13:13] LABS: APTT (PATIENT) 35.7 SEC (24.3-30.1)
--- NOTE | 2016-11-28 14:24 | HHI.HCPN ---
Reason for visit a. To assist with evaluation and management of symptoms including: pain, dyspnea, encephalopathy. b. To assist medical decision maker(s) with: better understanding of current medical conditions; weighing benefits/burdens of medical treatment options; making medical treatment decisions. . Subjective/Interval History Patient seen and examined in ICU. No family at bedside. [facility] placed 11/27/16. FiO2 50%, PEEP 10. GI has been consulted for PEG tube placement. Tmax 99.4, ice packs in place. WBC 16.7. Tachycardic, rate 120s. Sputum culture 11/27/16 preliminarily positive gram negative louis. Blood cultures no growth at 5 days. Renal function remains normal. Chest xray interval tracheostomy without complication, stable basilar infiltrates and effusions. . Family/friend interactions No family at bedside. Family has palliative care number, do not plan to make contact today. . Advance Directives Living Will: Never completed Health Care Surrogate: Never completed Durable Power of Dry Cleaning Teacher: Never completed Advance Directive Specifics Health Care Surrogate(s): Patient is currently incapacitated, uncertain if he will regain capacity. Patient is single. Has 1 son (Drake Andrews) and 2 daughters (Ira Mcgovern and Krystyna Palma). According to [place] statutes, health care proxy decision- making would fall to the majority of adult children. Krystyna Roth and Drake wish to particpate. . Significant change in goals: FULL CODE. Goals remain aggressive at this time. Family wants to be told if medical team feels patient unlikely to survive as he has told them he would not want to be kept alive by machines. . Objective Vital Signs Date Time Temp Pulse Resp B/P (MAP) Pulse Ox O2 Delivery O2 Flow Rate FiO2 11/28/16 12:30 93 50 11/28/16 12:00 50 11/28/16 12:00 99.4 127 13 166/91 (116) 89 11/28/16 10:00 122 11/28/16 08:00 97.9 73 16 135/80 (98) 96 11/28/16 08:00 50 11/28/16 08:00 73 11/28/16 08:00 73 11/28/16 07:45 96 50 11/28/16 06:00 128 11/28/16 04:36 97 50 10/4/17 04:00 60 11/28/16 04:00 98.8 96 20 141/74 (96) 99 11/28/16 04:00 96 11/28/16 02:00 93 11/28/16 01:12 94 60 11/28/16 00:00 60 11/28/16 00:00 97.7 134 16 94/61 (72) 99 11/28/16 00:00 134 11/27/16 22:19 96 60 11/27/16 22:00 129 11/27/16 20:00 60 11/27/16 20:00 98.8 97 16 135/106 (116) 99 11/27/16 20:00 97 11/27/16 19:35 98 60 11/27/16 18:00 96 11/27/16 17:08 97 60 11/27/16 16:00 117 11/27/16 16:00 50 11/27/16 16:00 98.4 117 16 117/68 (84) 93 11/27/16 15:00 124 16 189/114 (139) 94 11/27/16 15:00 124 11/27/16 14:45 116 17 178/110 (132) 93 11/27/16 14:30 125 16 177/108 (131) 93 11/27/16 14:30 50 Intake & Output 11/28/16 11/28/16 07:00 19:00 Intake Total 1220 ml 996 ml Output Total 1200 ml Balance 20 ml 996 ml IV Total 1100 ml 996 ml Other 120 ml Output Urine Total 1000 ml Stool Total 200 ml Physical Exam CONSTITUTIONAL/GENERAL: This is an overweight, critically ill patient, on mechanical ventilation. TUBES/LINES/DRAINS: tracheosotmy, OG, left upper PIC line, PIV left forearm, bilateral soft wrist restraints, Ashley Shield, Santiago catheter, SCDs, right chest tube. SKIN: No jaundice, rashes, or lesions. Ecchymoses on upper extremities. Abrasion / scab on right knee. Skin temperature appropriate. Not diaphoretic. EYES: eyes closed. ENT: unable to assess hearing given clinical condition. Nose without bleeding or purulent drainage. Throat difficult to visualize secondary to tubes. CARDIOVASCULAR: tachycardic, rate 120s. RESPIRATORY/CHEST: Unlabored respirations on mech vent. FiO2 50%, PEEP 10. Right chest tube. GASTROINTESTINAL: Abdomen soft, nondistended. Bowel sounds present. Tolerating tube feeding. GENITOURINARY: Without palpable bladder distension. Santiago catheter in place. MUSCULOSKELETAL: Extremities with 3+ edema. NEUROLOGICAL: Eyes closed, appears to be sleeping. PSYCHIATRIC: Asleep. . Diagnostic Tests Laboratory Laboratory Tests Test 11/25/16 21:50 11/26/16 04:30 11/26/16 11:07 11/26/16 18:44 Activated Partial Thromboplast Time 34.0 SEC (24.3-30.1) 32.9 SEC (24.3-30.1) 32.1 SEC (24.3-30.1) 33.1 SEC (24.3-30.1) White Blood Count 17.4 TH/MM3 (4.0-11.0) Red Blood Count 4.10 MIL/MM3 (4.50-5.90) Hemoglobin 12.7 GM/DL (13.0-17.0) Hematocrit 38.7 % (39.0-51.0) Mean Corpuscular Volume 94.5 FL (80.0-100.0) Mean Corpuscular Hemoglobin 30.9 PG (27.0-34.0) Mean Corpuscular Hemoglobin Concent 32.8 % (32.0-36.0) Red Cell Distribution Width 14.4 % (11.6-17.2) Platelet Count 171 TH/MM3 (150-450) Mean Platelet Volume 7.8 FL (7.0-11.0) Neutrophils (%) (Auto) 90.3 % (16.0-70.0) Lymphocytes (%) (Auto) 3.0 % (9.0-44.0) Monocytes (%) (Auto) 5.8 % (0.0-8.0) Eosinophils (%) (Auto) 0.1 % (0.0-4.0) Basophils (%) (Auto) 0.8 % (0.0-2.0) Neutrophils # (Auto) 15.7 TH/MM3 (1.8-7.7) Lymphocytes # (Auto) 0.5 TH/MM3 (1.0-4.8) Monocytes # (Auto) 1.0 TH/MM3 (0-0.9) Eosinophils # (Auto) 0.0 TH/MM3 (0-0.4) Basophils # (Auto) 0.1 TH/MM3 (0-0.2) CBC Comment AUTO DIFF Differential Total Cells Counted 100 Neutrophils % (Manual) 69 % (16-70) Band Neutrophils % 19 % (0-6) Lymphocytes % 1 % (9-44) Monocytes % 10 % (0-8) Neutrophils # (Manual) 15.5 TH/MM3 (1.8-7.7) Metamyelocytes 1 % (0-1) Differential Comment FINAL DIFF MANUAL Platelet Estimate NORMAL (NORMAL) Platelet Morphology Comment NORMAL (NORMAL) Prothrombin Time 10.7 SEC (9.8-11.6) Prothromb Time International Ratio 1.0 RATIO Blood Urea Nitrogen 11 MG/DL (7-18) Creatinine 0.25 MG/DL (0.60-1.30) Random Glucose 184 MG/DL (74-106) Calcium Level 7.8 MG/DL (8.5-10.1) Phosphorus Level 1.9 MG/DL (2.5-4.9) Magnesium Level 1.7 MG/DL (1.5-2.5) Sodium Level 134 MEQ/L (136-145) Potassium Level 3.7 MEQ/L (3.5-5.1) Chloride Level 95 MEQ/L (98-107) Carbon Dioxide Level 31.9 MEQ/L (21.0-32.0) Anion Gap 7 MEQ/L (5-15) Estimat Glomerular Filtration Rate 383 ML/MIN (>89) Digoxin Level 0.5 NG/ML (0.8-2.0) Test 11/27/16 01:20 11/27/16 04:00 11/28/16 00:00 11/28/16 05:30 Activated Partial Thromboplast Time 36.9 SEC (24.3-30.1) 38.5 SEC (24.3-30.1) 40.6 SEC (24.3-30.1) 44.1 SEC (24.3-30.1) White Blood Count 20.0 TH/MM3 (4.0-11.0) 16.7 TH/MM3 (4.0-11.0) Red Blood Count 4.17 MIL/MM3 (4.50-5.90) 4.06 MIL/MM3 (4.50-5.90) Hemoglobin 12.8 GM/DL (13.0-17.0) 12.5 GM/DL (13.0-17.0) Hematocrit 39.1 % (39.0-51.0) 38.1 % (39.0-51.0) Mean Corpuscular Volume 93.8 FL (80.0-100.0) 93.8 FL (80.0-100.0) Mean Corpuscular Hemoglobin 30.6 PG (27.0-34.0) 30.8 PG (27.0-34.0) Mean Corpuscular Hemoglobin Concent 32.6 % (32.0-36.0) 32.9 % (32.0-36.0) Red Cell Distribution Width 14.7 % (11.6-17.2) 14.6 % (11.6-17.2) Platelet Count 189 TH/MM3 (150-450) 213 TH/MM3 (150-450) Mean Platelet Volume 7.8 FL (7.0-11.0) 7.6 FL (7.0-11.0) Neutrophils (%) (Auto) 91.2 % (16.0-70.0) 90.2 % (16.0-70.0) Lymphocytes (%) (Auto) 3.6 % (9.0-44.0) 4.9 % (9.0-44.0) Monocytes (%) (Auto) 4.7 % (0.0-8.0) 4.3 % (0.0-8.0) Eosinophils (%) (Auto) 0.3 % (0.0-4.0) 0.3 % (0.0-4.0) Basophils (%) (Auto) 0.2 % (0.0-2.0) 0.3 % (0.0-2.0) Neutrophils # (Auto) 18.3 TH/MM3 (1.8-7.7) 15.0 TH/MM3 (1.8-7.7) Lymphocytes # (Auto) 0.7 TH/MM3 (1.0-4.8) 0.8 TH/MM3 (1.0-4.8) Monocytes # (Auto) 0.9 TH/MM3 (0-0.9) 0.7 TH/MM3 (0-0.9) Eosinophils # (Auto) 0.1 TH/MM3 (0-0.4) 0.0 TH/MM3 (0-0.4) Basophils # (Auto) 0.0 TH/MM3 (0-0.2) 0.1 TH/MM3 (0-0.2) CBC Comment AUTO DIFF AUTO DIFF Differential Total Cells Counted 100 100 Neutrophils % (Manual) 65 % (16-70) 68 % (16-70) Band Neutrophils % 29 % (0-6) 24 % (0-6) Lymphocytes % 2 % (9-44) 3 % (9-44) Monocytes % 1 % (0-8) 2 % (0-8) Neutrophils # (Manual) 19.4 TH/MM3 (1.8-7.7) 15.9 TH/MM3 (1.8-7.7) Metamyelocytes 1 % (0-1) 3 % (0-1) Myelocytes 2 % (0-0) Differential Comment FINAL DIFF MANUAL FINAL DIFF MANUAL Toxic Granulation (NORMAL) Blood Urea Nitrogen 9 MG/DL (7-18) 11 MG/DL (7-18) Creatinine 0.19 MG/DL (0.60-1.30) 0.17 MG/DL (0.60-1.30) Random Glucose 162 MG/DL (74-106) 147 MG/DL (74-106) Calcium Level 7.9 MG/DL (8.5-10.1) 7.7 MG/DL (8.5-10.1) Phosphorus Level 2.1 MG/DL (2.5-4.9) Magnesium Level 1.6 MG/DL (1.5-2.5) Sodium Level 135 MEQ/L (136-145) 134 MEQ/L (136-145) Potassium Level 3.6 MEQ/L (3.5-5.1) 3.5 MEQ/L (3.5-5.1) Chloride Level 95 MEQ/L (98-107) 96 MEQ/L (98-107) Carbon Dioxide Level 31.8 MEQ/L (21.0-32.0) 33.8 MEQ/L (21.0-32.0) Anion Gap 8 MEQ/L (5-15) 4 MEQ/L (5-15) Estimat Glomerular Filtration Rate 525 ML/MIN (>89) 597 ML/MIN (>89) Platelet Estimate NORMAL (NORMAL) Platelet Morphology Comment NORMAL (NORMAL) Red Cell Morphology Comment NORMAL (NORMAL) Test 11/28/16 08:43 11/28/16 12:32 Blood Gas Puncture Site LT RADIAL Blood Gas Patient Temperature 98.6 Blood Gas HCO3 31 mmol/L (22-26) Blood Gas Base Excess 7.3 mmol/L (-2-2) Blood Gas Oxygen Saturation 95 % (90-100) Arterial Blood pH 7.49 (7.380-7.420) Arterial Blood Partial Pressure CO2 41 mmHg (38-42) Arterial Blood Partial Pressure O2 85 mmHg (61-120) Arterial Blood Oxygen Content 20.7 Vol % (12.0-20.0) Arterial Blood Carboxyhemoglobin 1.3 % (0-4) Arterial Blood Methemoglobin 1.0 % (0-2) Blood Gas Hemoglobin 15.6 G/DL (12.0-16.0) Oxygen Delivery Device VENTILATOR Blood Gas Ventilator Setting PRVC/AC Blood Gas Inspired Oxygen 50 % Activated Partial Thromboplast Time 35.7 SEC (24.3-30.1) Result Diagram: 11/28/16 0530 11/28/16 0530 Microbiology Microbiology Date/Time Source Procedure Growth Status 11/27/16 09:55 Sputum Endotracheal Gram Stain - Final Resulted 11/27/16 09:55 Sputum Culture - Preliminary Gram Negative Louis Resulted Imaging Last Impressions Chest X-Ray 11/28/16 0000 Signed Impressions: Service Date/Time: Monday, November 28, 2016 08:31 - CONCLUSION: Interval tracheostomy without complication. Stable basilar infiltrates and effusions Jayson Manning MD Brain MRI 11/26/16 0000 Signed Impressions: Service Date/Time: Saturday, November 26, 2016 19:52 - CONCLUSION: 1. Small focal signal abnormality in the superior medial left frontal lobe. This is nonspecific. This could be the sequela from prior insult such as a contusion or small infarct. An acute infarct is not seen. A small underlying lesion could have a similar appearance. One could perform a contrast-enhanced study to determine if there is any enhancement associated with this region. 2. There are a few scattered minimal punctate areas of demyelination seen not expected for the patient's age. 3. Sinus disease. Jayson Soto MD Lower Extremity Ultrasound 11/09/16 0000 Signed Impressions: Service Date/Time: Wednesday, November 09, 2016 14:13 - CONCLUSION: Normal examination. Jayson Manning MD Liver Ultrasound 11/09/16 0000 Signed Impressions: Service Date/Time: Wednesday, November 09, 2016 13:58 - CONCLUSION: Sono dense liver without duct dilatation. 4 mm common duct. Ward Kim MD FACR Chest CT 11/06/16 0000 Signed Impressions: Service Date/Time: Sunday, November 06, 2016 11:24 - CONCLUSION: 1. Dense bilateral posterior lower lobe airspace consolidation consistent with aspiration versus less likely pneumonia. 2. Linear consolidation in the right middle lobe consistent with atelectasis versus aspiration. 3. Trace left and small right pleural effusions. 4. Support lines and tubes in good position. 5. Prominent coronary artery calcifications. Nico Vaughan MD Head CT 11/05/16 0000 Signed Impressions: Service Date/Time: Saturday, November 05, 2016 21:43 - CONCLUSION: 1. No acute intracranial abnormalities. Pansinus fluid opacification. Cristofer De Santiago MD Abdomen X-Ray 10/29/16 0600 Signed Impressions: Service Date/Time: Saturday, October 29, 2016 04:41 - CONCLUSION: Nonspecific , nonobstructive bowel gas pattern. No evidence of free air. Jayson Taylor MD Carotid Artery Ultrasound 10/25/16 0000 Signed Impressions: Service Date/Time: September 08:27 - CONCLUSION: Mild to moderate plaque in both carotid systems with less than 40%% diameter stenosis by velocity criteria. Jhonathan Dietz MD CT Angiography 10/25/16 0000 Signed Impressions: Service Date/Time: September 06:12 - CONCLUSION: 1. Negative for pulmonary embolism. 2. There is a fairly large area of masslike consolidation in the medial right lung involving posterior segment right upper lobe and medial aspect of right lower lobe. There is associated right hilar and mediastinal adenopathy measuring up to 2.1 cm. Differential diagnosis includes pneumonia or underlying lung neoplasm. Close followup imaging recommended after treatment for pneumonia, to assess for underlying mass. Cristofer De Santiago MD Procedures * 11/27/16 - tracheostomy * 11/23/16 - right chest tube placement. * 11/10/16 - ETT replaced. * 11/04/16 - arterial line placement. * 10/25/16 - Intubation and central line placed. . Assessment and Plan Disease Oriented Problem List: (1) Acute respiratory failure (2) ARDS (adult respiratory distress syndrome) (3) COPD (chronic obstructive pulmonary disease) (4) Obesity hypoventilation syndrome (5) Anoxic encephalopathy (6) Metabolic encephalopathy (7) Atrial flutter (8) Leukocytosis (9) Sepsis (10) Hyperglycemia (11) Morbid obesity (12) Tobacco use (13) Hypertension Symptom Scale: (1) Pain 0-10 Scale: Unable to quantify Comment: On Fentanyl drip. (2) Dyspnea 0-10 Scale: Unable to quantify Comment: on vent to trach. (3) Encephalopathy 0-10 Scale: Unable to quantify Pertinent Non-Medical Issues Psychosocial: notes indicate patient is single. Has one son and one daughter. Was living with his son prior to admission. Spiritual: unknown. Legal: Patient is currently incapacitated, uncertain if he will regain capacity. Patient is single. Has 1 son (Drake Andrews) and 2 daughters ( Ira Mcgovern and Krystyna Palma). According to [place] statutes, health care proxy decision-making would fall to the majority of adult children. IraKrystyna wilson and Drake wish to particpate. Ethical issues impacting care: no known concerns at this time. . Important Contacts * Ira Mcgovern, daughter/ HCP: [phone] (cell) or [phone] ext. [phone] (work) * Drake Andrews, son/ HCP: [phone] (cell) or [phone] (work) * Krystyna Palma, daughter/ HCP: [phone] * Drake Henry girlfriend: [phone] . . Prognosis Mr. Andrews is an unfortunate 56-year-old male who was admitted with respiratory distress, pneumonia, ARDS with prolonged hospitalization/mechanical ventilation still requiring high FI 02 and PEEP needs, unable to proceed with tracheostomy/ PEG tube given medical instability, high oxygen needs. Overall condition does not appear to be improving. . Code Status: Full Code Plan * Decision Maker: Patient is currently incapacitated, uncertain if he will regain capacity. Patient is single. Has 1 son (Drake Andrews) and 2 daughters ( Ira Mcgovern and Krystyna Palma). According to [place] statutes, health care proxy decision-making would fall to the majority of adult children. Krystyna Roth and Drake wish to particpate. * FULL CODE - family considering code status. * Family considering CODE status. Wants to proceed with PEG tube. They verbalize patient would not want to be kept alive by machines, so they want to know if medical team feels he will not improve. Family desires continued aggressive care. * SYMPTOMS: Pain: potential sources of pain include COPD, intubation, prolonged hospitalization, bedbound status, chest tube, infection, etc. on fentanyl drip, intermittent grimacing during physical exam. Given underlying encephalopathy no new pain medication recommendations at this time. Dyspnea: remains on prolonged mechanical ventilation requiring high Fi02 and PEEP support. Has been too unstable for tracheostomy. Encephalopathy: patient with possible anoxic encephalopathy. No new medication recommendations at this time. * Palliative care will continue to follow throughout hospital course to assist with symptom management and clarification of goals as needed. . Attestation To help prompt me to consider important information that might be impacting today's encounter and assessment, information from prior notes written by myself or my colleagues may have been "brought forward" into today's note. My signature on this note, however, is an attestation that I personally performed the exam, history, and/or decision-making noted today, and, unless otherwise indicated, the interactions with patient, family, and staff as well as the review of records all occurred today. I also attest that the listed assessment and stated plan reflect my best clinical judgment today based on the combination of historical information, prior notes, and today's exam/ interactions. When time spent is documented, it refers only to time spent today by the signer, or if indicated, combined time spent today by collaborating physician/nurse practitioner. Sandra Mccabe Nov 28, 2016 14:24
--- NOTE | 2016-11-28 14:48 | PD.CONS ---
HPI History of Present Illness This is a 56 year old male with COPD, HTN who presented for SOB and fatigue. He subsequently was intubated d/t increasing o2 demand, and was placed on prone therapy. GI has been consulted for PEG tube placement. (Kaitlynn Ruiz) PFSH Past Medical History COPD Hypertension Hyperlipidemia Sleep apnea Remote history of kidney stones (> 15 years ago) . Past Surgical History None reported. (Kaitlynn Ruiz) Coded Allergies: No Known Allergies (Unverified , 10/25/16) Family History No family history of early coronary artery disease or cancer. . (Kaitlynn Ruiz) Review of Systems ROS noncontributory (Kaitlynn Ruiz) GI Exam Vitals I&O Vital Signs Date Time Temp Pulse Resp B/P (MAP) Pulse Ox O2 Delivery O2 Flow Rate FiO2 11/28/16 12:30 93 50 11/28/16 12:00 50 11/28/16 12:00 99.4 127 13 166/91 (116) 89 11/28/16 10:00 122 11/28/16 08:00 97.9 73 16 135/80 (98) 96 11/28/16 08:00 50 11/28/16 08:00 73 11/28/16 08:00 73 11/28/16 07:45 96 50 11/28/16 06:00 128 11/28/16 04:36 97 50 11/28/16 04:00 60 11/28/16 04:00 98.8 96 20 141/74 (96) 99 11/28/16 04:00 96 11/28/16 02:00 93 11/28/16 01:12 94 60 11/28/16 00:00 60 11/28/16 00:00 97.7 134 16 94/61 (72) 99 11/28/16 00:00 134 11/27/16 22:19 96 60 11/27/16 22:00 129 11/27/16 20:00 60 11/27/16 20:00 98.8 97 16 135/106 (116) 99 11/27/16 20:00 97 11/27/16 19:35 98 60 11/27/16 18:00 96 11/27/16 17:08 97 60 11/27/16 16:00 117 11/27/16 16:00 50 11/27/16 16:00 98.4 117 16 117/68 (84) 93 11/27/16 15:00 124 16 189/114 (139) 94 11/27/16 15:00 124 11/27/16 14:45 116 17 178/110 (132) 93 I/O 11/27/16 11/27/16 11/27/16 11/28/16 11/28/16 11/28/16 07:00 15:00 23:00 07:00 15:00 23:00 Intake Total 941 ml 550 ml 860 ml 870 ml 996 ml Output Total 1300 ml 5 ml 770 ml 1200 ml Balance -359 ml 545 ml 90 ml -330 ml 996 ml IV Total 650 ml 350 ml 800 ml 750 ml 996 ml Tube Feeding 191 ml 0 ml Other 100 ml 200 ml 60 ml 120 ml Output Urine Total 1000 ml 700 ml 1000 ml Stool Total 300 ml 0 ml 200 ml Chest Tube Drainage Total 70 ml Estimated Blood Loss 5 ml Imaging Last Impressions Chest X-Ray 11/28/16 0000 Signed Impressions: Service Date/Time: Monday, November 28, 2016 08:31 - CONCLUSION: Interval tracheostomy without complication. Stable basilar infiltrates and effusions Jayson Manning MD Brain MRI 11/26/16 0000 Signed Impressions: Service Date/Time: Saturday, November 26, 2016 19:52 - CONCLUSION: 1. Small focal signal abnormality in the superior medial left frontal lobe. This is nonspecific. This could be the sequela from prior insult such as a contusion or small infarct. An acute infarct is not seen. A small underlying lesion could have a similar appearance. One could perform a contrast-enhanced study to determine if there is any enhancement associated with this region. 2. There are a few scattered minimal punctate areas of demyelination seen not expected for the patient's age. 3. Sinus disease. Jayson Soto MD Lower Extremity Ultrasound 11/09/16 0000 Signed Impressions: Service Date/Time: Wednesday, November 09, 2016 14:13 - CONCLUSION: Normal examination. Jayson Manning MD Liver Ultrasound 11/09/16 0000 Signed Impressions: Service Date/Time: Wednesday, November 09, 2016 13:58 - CONCLUSION: Sono dense liver without duct dilatation. 4 mm common duct. Ward Kim MD FACR Chest CT 11/06/16 0000 Signed Impressions: Service Date/Time: Sunday, November 06, 2016 11:24 - CONCLUSION: 1. Dense bilateral posterior lower lobe airspace consolidation consistent with aspiration versus less likely pneumonia. 2. Linear consolidation in the right middle lobe consistent with atelectasis versus aspiration. 3. Trace left and small right pleural effusions. 4. Support lines and tubes in good position. 5. Prominent coronary artery calcifications. Nico Vaughan MD Head CT 11/05/16 0000 Signed Impressions: Service Date/Time: Saturday, November 05, 2016 21:43 - CONCLUSION: 1. No acute intracranial abnormalities. Pansinus fluid opacification. Cristofer De Santiago MD Abdomen X-Ray 10/29/16 0600 Signed Impressions: Service Date/Time: Saturday, October 29, 2016 04:41 - CONCLUSION: Nonspecific , nonobstructive bowel gas pattern. No evidence of free air. Jayson Taylor MD Carotid Artery Ultrasound 10/25/16 0000 Signed Impressions: Service Date/Time: September 08:27 - CONCLUSION: Mild to moderate plaque in both carotid systems with less than 40%% diameter stenosis by velocity criteria. Jhonathan Dietz MD CT Angiography 10/25/16 0000 Signed Impressions: Service Date/Time: September 06:12 - CONCLUSION: 1. Negative for pulmonary embolism. 2. There is a fairly large area of masslike consolidation in the medial right lung involving posterior segment right upper lobe and medial aspect of right lower lobe. There is associated right hilar and mediastinal adenopathy measuring up to 2.1 cm. Differential diagnosis includes pneumonia or underlying lung neoplasm. Close followup imaging recommended after treatment for pneumonia, to assess for underlying mass. Cristofer De Santiago MD Laboratory Test 11/28/16 00:00 11/28/16 05:30 11/28/16 08:43 11/28/16 12:32 Activated Partial Thromboplast Time 40.6 SEC 44.1 SEC 35.7 SEC White Blood Count 16.7 TH/MM3 Red Blood Count 4.06 MIL/MM3 Hemoglobin 12.5 GM/DL Hematocrit 38.1 % Mean Corpuscular Volume 93.8 FL Mean Corpuscular Hemoglobin 30.8 PG Mean Corpuscular Hemoglobin Concent 32.9 % Red Cell Distribution Width 14.6 % Platelet Count 213 TH/MM3 Mean Platelet Volume 7.6 FL Neutrophils (%) (Auto) 90.2 % Lymphocytes (%) (Auto) 4.9 % Monocytes (%) (Auto) 4.3 % Eosinophils (%) (Auto) 0.3 % Basophils (%) (Auto) 0.3 % Neutrophils # (Auto) 15.0 TH/MM3 Lymphocytes # (Auto) 0.8 TH/MM3 Monocytes # (Auto) 0.7 TH/MM3 Eosinophils # (Auto) 0.0 TH/MM3 Basophils # (Auto) 0.1 TH/MM3 CBC Comment AUTO DIFF Differential Total Cells Counted 100 Neutrophils % (Manual) 68 % Band Neutrophils % 24 % Lymphocytes % 3 % Monocytes % 2 % Neutrophils # (Manual) 15.9 TH/MM3 Metamyelocytes 3 % Differential Comment FINAL DIFF MANUAL Platelet Estimate NORMAL Platelet Morphology Comment NORMAL Red Cell Morphology Comment NORMAL Blood Urea Nitrogen 11 MG/DL Creatinine 0.17 MG/DL Random Glucose 147 MG/DL Calcium Level 7.7 MG/DL Sodium Level 134 MEQ/L Potassium Level 3.5 MEQ/L Chloride Level 96 MEQ/L Carbon Dioxide Level 33.8 MEQ/L Anion Gap 4 MEQ/L Estimat Glomerular Filtration Rate 597 ML/MIN Blood Gas Puncture Site LT RADIAL Blood Gas Patient Temperature 98.6 Blood Gas HCO3 31 mmol/L Blood Gas Base Excess 7.3 mmol/L Blood Gas Oxygen Saturation 95 % Arterial Blood pH 7.49 Arterial Blood Partial Pressure CO2 41 mmHg Arterial Blood Partial Pressure O2 85 mmHg Arterial Blood Oxygen Content 20.7 Vol % Arterial Blood Carboxyhemoglobin 1.3 % Arterial Blood Methemoglobin 1.0 % Blood Gas Hemoglobin 15.6 G/DL Oxygen Delivery Device VENTILATOR Blood Gas Ventilator Setting PRVC/AC Blood Gas Inspired Oxygen 50 % Date/Time Source Procedure Growth Status 11/23/16 19:26 Blood Peripheral Aerobic Blood Culture - Final NO GROWTH IN 5 DAYS Complete 11/23/16 19:26 Blood Peripheral Anaerobic Blood Culture - Final NO GROWTH IN 5 DAYS Complete 11/08/16 14:15 Stool Stool Stool Occult Blood (TYLER) - Final HEMOCCULT NEGATIVE Complete 11/27/16 09:55 Sputum Endotracheal Gram Stain - Final Resulted 11/27/16 09:55 Sputum Culture - Preliminary Gram Negative Louis Resulted 9/17/17 01:15 Urine Catheterized Urine Urine Culture - Final Ana Albicans Complete Physical Examination HEENT: normocephalic; atraumatic; no jaundice. trach to vent CHEST: wheezes & rhonchi throughout CARDIAC: irr HR, +murmur ABDOMEN: Soft, obese, nontender; no hepatosplenomegaly; bowel sounds are present in all four quadrants. EXTREMITIES: No clubbing, cyanosis; generalized edema SKIN: Normal; no rash; no jaundice. 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 d/w son Drake Skidds [phone] and he said he and the rest of family were agreeable to proceed with placement. - AF w/ RVR, HTN, severe persistent acute hypoxic respiratory failure, ARDS, PNA , OHS per [facility] PLAN - EGD w/ PEG tube placement tomorrow - obtain consent - hold TF after midnight - hold heparin gtt - on abx - supportive care - further recs to follow This pt seen by myself and Dr Marino and this note is written on her behalf (Kaitlynn Ruiz) Physician Comments seen, examined agree with above patient on antibiotics already (Peggy Marino MD) Kaitlynn Ruiz Nov 28, 2016 14:48 Peggy Marino MD Nov 28, 2016 16:24
--- NOTE | 2016-11-28 15:57 | HHI.PR ---
Subjective Subjective Notes Resting in bed Eyes open Objective Vitals/I&O Vital Signs Date Time Temp Pulse Resp B/P (MAP) Pulse Ox O2 Delivery O2 Flow Rate FiO2 11/28/16 14:00 74 11/28/16 12:30 93 50 11/28/16 12:00 99.4 13 166/91 (116) 11/24/16 20:24 Ventilator Labs Laboratory Tests Test 11/28/16 00:00 11/28/16 05:30 11/28/16 08:43 11/28/16 12:32 Activated Partial Thromboplast Time 40.6 44.1 35.7 White Blood Count 16.7 Red Blood Count 4.06 Hemoglobin 12.5 Hematocrit 38.1 Mean Corpuscular Volume 93.8 Mean Corpuscular Hemoglobin 30.8 Mean Corpuscular Hemoglobin Concent 32.9 Red Cell Distribution Width 14.6 Platelet Count 213 Mean Platelet Volume 7.6 Neutrophils (%) (Auto) 90.2 Lymphocytes (%) (Auto) 4.9 Monocytes (%) (Auto) 4.3 Eosinophils (%) (Auto) 0.3 Basophils (%) (Auto) 0.3 Neutrophils # (Auto) 15.0 Lymphocytes # (Auto) 0.8 Monocytes # (Auto) 0.7 Eosinophils # (Auto) 0.0 Basophils # (Auto) 0.1 CBC Comment AUTO DIFF Differential Total Cells Counted 100 Neutrophils % (Manual) 68 Band Neutrophils % 24 Lymphocytes % 3 Monocytes % 2 Neutrophils # (Manual) 15.9 Metamyelocytes 3 Differential Comment FINAL DIFF MANUAL Platelet Estimate NORMAL Platelet Morphology Comment NORMAL Red Cell Morphology Comment NORMAL Blood Urea Nitrogen 11 Creatinine 0.17 Random Glucose 147 Calcium Level 7.7 Sodium Level 134 Potassium Level 3.5 Chloride Level 96 Carbon Dioxide Level 33.8 Anion Gap 4 Estimat Glomerular Filtration Rate 597 Blood Gas Puncture Site LT RADIAL Blood Gas Patient Temperature 98.6 Blood Gas HCO3 31 Blood Gas Base Excess 7.3 Blood Gas Oxygen Saturation 95 Arterial Blood pH 7.49 Arterial Blood Partial Pressure CO2 41 Arterial Blood Partial Pressure O2 85 Arterial Blood Oxygen Content 20.7 Arterial Blood Carboxyhemoglobin 1.3 Arterial Blood Methemoglobin 1.0 Blood Gas Hemoglobin 15.6 Oxygen Delivery Device VENTILATOR Blood Gas Ventilator Setting PRVC/AC Blood Gas Inspired Oxygen 50 Date/Time Source Procedure Growth Status 11/23/16 19:26 Blood Peripheral Aerobic Blood Culture - Final NO GROWTH IN 5 DAYS Complete 11/23/16 19:26 Blood Peripheral Anaerobic Blood Culture - Final NO GROWTH IN 5 DAYS Complete 11/08/16 14:15 Stool Stool Stool Occult Blood (TYLER) - Final HEMOCCULT NEGATIVE Complete 11/27/16 09:55 Sputum Endotracheal Gram Stain - Final Resulted 11/27/16 09:55 Sputum Culture - Preliminary Gram Negative Louis Resulted 11/11/16 01:15 Urine Catheterized Urine Urine Culture - Final Ana Albicans Complete Cardiovascular: Regular Lungs: Clear Abdomen: Other (obese; soft ) Extremities: Other (moderate generalized edema ) Narrative Exam Trach in place without any complications; no drainage A/P Assessment and Plan 56 year old male with VDRF; POD1 trach placement -No complications or issues with trach -Continue routine trach are -Vent per [facility] -General Surgery will sign off; please call if necessary Attending Statement patient seen at bedside trach c/d/i no acute issues will s/o Attestation The exam, history, and the medical decision-making described in the above note were completed with the assistance of the mid-level provider. I reviewed and agree with the findings presented. I attest that I had a [id number] encounter with the patient on the same day, and personally performed and documented my assessment and findings in the medical record. Afia Ware Nov 28, 2016 15:57 Jerry Martin MD Dec 01, 2016 23:05
[2016-11-28] MEDS: HEPARIN SODIUM - IV 10,000 UNITS/10 ML VIAL IV PUSH PRN (16:01)
--- NOTE | 2016-11-28 19:03 | HHI.PR ---
Addendum to Inpatient Note Additional Information pt seen around 1830 full note to follow awake, alert FC + low grade fever leukocytosis , bandemiz 20s% coarse BS CT R 50 cc d/c Edema 3-4+ generalysed growing GNB in sputum dw Mariana Murrell MD Nov 28, 2016 19:03
--- NOTE | 2016-11-28 22:26 | HHI.IDPN ---
Subjective Subjective Remarks delayed entry pt seen around 1830 sp trach placed yday Problems with oxidgenation just prior to my visit dropped sats into 80s, required bagging, thick mucus plag was suctioned out pt's MS improved MRI brain w/o acute findings pt is now awake, alert and FC cont to have + low grade fever cont to have leukocytosis , with marked bandemia 24-29% growing GNB in sputum Antibiotics zosyn Allergies: Coded Allergies: No Known Allergies (Unverified , 10/25/16) Objective . Vital Signs Date Time Temp Pulse Resp B/P (MAP) Pulse Ox O2 Delivery O2 Flow Rate FiO2 11/28/16 20:21 96 60 11/28/16 18:48 60 11/28/16 18:00 86 11/28/16 16:00 119 11/28/16 16:00 50 11/28/16 16:00 98.4 119 16 111/55 (73) 96 11/28/16 14:00 74 11/28/16 12:30 93 50 11/28/16 12:00 50 11/28/16 12:00 99.4 127 13 166/91 (116) 89 11/28/16 10:00 122 11/28/16 08:00 97.9 73 16 135/80 (98) 96 11/28/16 08:00 50 11/28/16 08:00 73 11/28/16 08:00 73 11/28/16 07:45 96 50 11/28/16 06:00 128 11/28/16 04:36 97 50 11/28/16 04:00 60 11/28/16 04:00 98.8 96 20 141/74 (96) 99 11/28/16 04:00 96 11/28/16 02:00 93 11/28/16 01:12 94 60 11/28/16 00:00 60 11/28/16 00:00 97.7 134 16 94/61 (72) 99 11/28/16 00:00 134 11/28/16 11/28/16 11/29/16 15:00 23:00 07:00 Intake Total 996 ml 425 ml Output Total 1915 ml Balance 996 ml -1490 ml IV Total 996 ml 425 ml Output Urine Total 1825 ml Stool Total 40 ml Chest Tube Drainage Total 50 ml . Laboratory Tests Test 11/27/16 04:00 11/28/16 05:30 White Blood Count 20.0 TH/MM3 16.7 TH/MM3 Red Blood Count 4.17 MIL/MM3 4.06 MIL/MM3 Hemoglobin 12.8 GM/DL 12.5 GM/DL Hematocrit 39.1 % 38.1 % Mean Corpuscular Volume 93.8 FL 93.8 FL Mean Corpuscular Hemoglobin 30.6 PG 30.8 PG Mean Corpuscular Hemoglobin Concent 32.6 % 32.9 % Red Cell Distribution Width 14.7 % 14.6 % Platelet Count 189 TH/MM3 213 TH/MM3 Mean Platelet Volume 7.8 FL 7.6 FL Neutrophils (%) (Auto) 91.2 % 90.2 % Lymphocytes (%) (Auto) 3.6 % 4.9 % Monocytes (%) (Auto) 4.7 % 4.3 % Eosinophils (%) (Auto) 0.3 % 0.3 % Basophils (%) (Auto) 0.2 % 0.3 % Neutrophils # (Auto) 18.3 TH/MM3 15.0 TH/MM3 Lymphocytes # (Auto) 0.7 TH/MM3 0.8 TH/MM3 Monocytes # (Auto) 0.9 TH/MM3 0.7 TH/MM3 Eosinophils # (Auto) 0.1 TH/MM3 0.0 TH/MM3 Basophils # (Auto) 0.0 TH/MM3 0.1 TH/MM3 CBC Comment AUTO DIFF AUTO DIFF Differential Total Cells Counted 100 100 Neutrophils % (Manual) 65 % 68 % Band Neutrophils % 29 % 24 % Lymphocytes % 2 % 3 % Monocytes % 1 % 2 % Neutrophils # (Manual) 19.4 TH/MM3 15.9 TH/MM3 Metamyelocytes 1 % 3 % Myelocytes 2 % Differential Comment FINAL DIFF MANUAL FINAL DIFF MANUAL Toxic Granulation Platelet Estimate NORMAL Platelet Morphology Comment NORMAL Red Cell Morphology Comment NORMAL Laboratory Tests Test 11/27/16 04:00 11/28/16 05:30 11/28/16 17:18 Blood Urea Nitrogen 9 MG/DL 11 MG/DL Creatinine 0.19 MG/DL 0.17 MG/DL Random Glucose 162 MG/DL 147 MG/DL Calcium Level 7.9 MG/DL 7.7 MG/DL Phosphorus Level 2.1 MG/DL Magnesium Level 1.6 MG/DL Sodium Level 135 MEQ/L 134 MEQ/L Potassium Level 3.6 MEQ/L 3.5 MEQ/L 3.9 MEQ/L Chloride Level 95 MEQ/L 96 MEQ/L Carbon Dioxide Level 31.8 MEQ/L 33.8 MEQ/L Anion Gap 8 MEQ/L 4 MEQ/L Estimat Glomerular Filtration Rate 525 ML/MIN 597 ML/MIN Microbiology Date/Time Source Procedure Growth Status 11/27/16 09:55 Sputum Endotracheal Gram Stain - Final Resulted 11/27/16 09:55 Sputum Culture - Preliminary Gram Negative Louis Resulted Imaging Last Impressions Chest X-Ray 11/28/16 0000 Signed Impressions: Service Date/Time: Monday, November 28, 2016 08:31 - CONCLUSION: Interval tracheostomy without complication. Stable basilar infiltrates and effusions Jayson Manning MD Brain MRI 11/26/16 0000 Signed Impressions: Service Date/Time: Saturday, November 26, 2016 19:52 - CONCLUSION: 1. Small focal signal abnormality in the superior medial left frontal lobe. This is nonspecific. This could be the sequela from prior insult such as a contusion or small infarct. An acute infarct is not seen. A small underlying lesion could have a similar appearance. One could perform a contrast-enhanced study to determine if there is any enhancement associated with this region. 2. There are a few scattered minimal punctate areas of demyelination seen not expected for the patient's age. 3. Sinus disease. Jayson Soto MD Lower Extremity Ultrasound 11/09/16 0000 Signed Impressions: Service Date/Time: Wednesday, November 09, 2016 14:13 - CONCLUSION: Normal examination. Jayson Manning MD Liver Ultrasound 11/09/16 0000 Signed Impressions: Service Date/Time: Wednesday, November 09, 2016 13:58 - CONCLUSION: Sono dense liver without duct dilatation. 4 mm common duct. Ward Kim MD FACR Chest CT 11/06/16 0000 Signed Impressions: Service Date/Time: Sunday, November 06, 2016 11:24 - CONCLUSION: 1. Dense bilateral posterior lower lobe airspace consolidation consistent with aspiration versus less likely pneumonia. 2. Linear consolidation in the right middle lobe consistent with atelectasis versus aspiration. 3. Trace left and small right pleural effusions. 4. Support lines and tubes in good position. 5. Prominent coronary artery calcifications. Nico Vaughan MD Head CT 11/05/16 0000 Signed Impressions: Service Date/Time: Saturday, November 05, 2016 21:43 - CONCLUSION: 1. No acute intracranial abnormalities. Pansinus fluid opacification. Cristofer De Santiago MD Abdomen X-Ray 10/29/16 0600 Signed Impressions: Service Date/Time: Saturday, October 29, 2016 04:41 - CONCLUSION: Nonspecific , nonobstructive bowel gas pattern. No evidence of free air. Jayson Taylor MD Carotid Artery Ultrasound 10/25/16 0000 Signed Impressions: Service Date/Time: September 08:27 - CONCLUSION: Mild to moderate plaque in both carotid systems with less than 40%% diameter stenosis by velocity criteria. Jhonathan Dietz MD CT Angiography 10/25/16 0000 Signed Impressions: Service Date/Time: , October 25, 2016 06:12 - CONCLUSION: 1. Negative for pulmonary embolism. 2. There is a fairly large area of masslike consolidation in the medial right lung involving posterior segment right upper lobe and medial aspect of right lower lobe. There is associated right hilar and mediastinal adenopathy measuring up to 2.1 cm. Differential diagnosis includes pneumonia or underlying lung neoplasm. Close followup imaging recommended after treatment for pneumonia, to assess for underlying mass. Cristofer De Santiago MD Physical Exam CONSTITUTIONAL/GENERAL: This is a morbidly obese patient, sedated int'd on vent TUBES/LINES/DRAINS: SKIN: No jaundice, rashes, or lesions. Skin temperature appropriate. Not diaphoretic. NECK: trach in place CARDIOVASCULAR: Afib on the monitor tachycardia without murmurs, gallops, or rubs. No JVD. Peripheral pulses symmetric. RESPIRATORY/CHEST: Symmetric, unlabored respirations. coarse BS CT R 50 cc d/c GASTROINTESTINAL: Abdomen soft, not tender mildly distended. No hepato- splenomegaly, or palpable masses. No guarding. Bowel sounds present. Dignisheilld in [address],[place] with liquid brown stool GENITOURINARY: Without palpable bladder distension. Santiago catheter in place with somewhat cloudy urine MUSCULOSKELETAL: Extremities without clubbing, cyanosis, Edema 3-4+ generalysed NEUROLOGICAL: arousable; follows commands PSYCHIATRIC: unable to assess Assessment & Plan Remarks PNA, Kleb pneumo - failrly sensitive - again GNB in sputum ARDS Acute VDRF, failure to wean - sp trach R sided PTX sp CT Abx associated diarrhea, C.diff negative Abnormal UA, CANDIDURIA Persiastent leukocytosis and bandemia Persistent fever Sputum with GNB REC's: cont zosyn, dc vanco fu repeat sputum clx fu clinically fu WBC and temps Discussed Condition With Mariana De Guzman MD Nov 28, 2016 22:26
[2016-11-28 22:52] LABS: APTT (PATIENT) 59.9 SEC (24.3-30.1)
[2016-11-29] VITALS (18 sets, daily range): BP systolic 115–191; BP diastolic 62–108; PULSE 67–132; RESP 16; TEMP 98.4–99.5; O2SAT 93–100
[2016-11-29] MEDS: DILTIAZEM HCL 90 MG TAB PO SCH ×5 (00:26→18:00)
[2016-11-29] MEDS: PROPOFOL 1000 MG/100 ML IV PRN ×8 (01:35→20:25)
[2016-11-29] MEDS: CHLORHEXIDINE GLUCONATE 2 % 1 PACK (2 CLOTHS) TOP SCH (04:00)
[2016-11-29] MEDS: INSULIN NovoLIN REGULAR SUPPLEMENTAL SCALE SQ SCH ×6 (04:00→20:00)
[2016-11-29] MEDS: METOPROLOL TARTRATE 5 MG/5 ML VIAL IV PUSH PRN ×4 (04:05→18:16)
[2016-11-29] MEDS: PIPERACIL-TAZO 4.5 GM PREMIX 100 ML IV SCH ×3 (04:06→17:11)
[2016-11-29] MEDS: SODIUM CHLORIDE 0.9% FLUSH 10 ML FLUSH PRN (04:16)
[2016-11-29] MEDS: METOPROLOL TARTRATE 50 MG TAB PO SCH ×5 (05:51→18:00)
[2016-11-29] MEDS: cloNIDine HCL 0.2 MG TAB OG-TUBE SCH ×3 (05:51→22:00)
[2016-11-29 06:02] LABS: AUTOMATED NEUTROPHIL # 13.7 TH/MM3 (1.8-7.7); BASOPHIL # 0.1 TH/MM3 (0-0.2); BASOPHIL % 0.4 % (0.0-2.0); EOSINOPHIL % 0.2 % (0.0-4.0); HEMATOCRIT 36.5 % (39.0-51.0); LYMPH % 5.3 % (9.0-44.0); LYMPHOCYTE # 0.8 TH/MM3 (1.0-4.8); MEAN CELL VOLUME 93.4 FL (80.0-100.0); MEAN CORPUSCULAR HGB CONC 33.1 % (32.0-36.0); MONO % 3.6 % (0.0-8.0); NEUT % 90.5 % (16.0-70.0); PLATELET COUNT 224 TH/MM3 (150-450); RED BLOOD COUNT 3.91 MIL/MM3 (4.50-5.90); RED CELL DISTRIBUTION WIDTH 14.4 % (11.6-17.2); WHITE BLOOD COUNT 15.1 TH/MM3 (4.0-11.0)
[2016-11-29 06:21] LABS: HEMO FLAGS AUTO DIFF
[2016-11-29 06:32] LABS: ANION GAP 16 MEQ/L (5-15); BICARBONATE 28.2 MEQ/L (21.0-32.0); BLOOD UREA NITROGEN 9 MG/DL (7-18); CHLORIDE 101 MEQ/L (98-107); GLOMERULAR FILTRATION RATE 690 ML/MIN (>89); SODIUM (NA) 145 MEQ/L (136-145)
[2016-11-29] MEDS: POTASSIUM CHLOR 40 MEQ PREMIX 100 ML IV PRN ×2 (06:49→09:27)
[2016-11-29 07:47] LABS: CALCIUM-PROTEIN CORRECTED 7.4 MG/DL (8.5-10.1)
[2016-11-29] MEDS: fentaNYL DRIP 250 ML IV PRN ×2 (07:52→17:41)
[2016-11-29] MEDS: SODIUM CHLORIDE 0.9% FLUSH 10 ML FLUSH SCH ×2 (07:53→20:26)
[2016-11-29] MEDS: DIGOXIN 0.125 MG TAB PO SCH (07:53)
[2016-11-29] MEDS: methylPREDNISolone SOD SUCC 40 MG/1 ML VIAL IV SCH (07:53)
[2016-11-29] MEDS: FAMOTIDINE 20 MG TAB NG SCH ×2 (07:53→21:00)
[2016-11-29] MEDS: AMIODARONE 200 MG TAB OG-TUBE SCH ×2 (07:53→21:00)
[2016-11-29] MEDS: ARTIFICIAL TEARS OPTH OINT 3.5 APPLIC/3.5 GM TUBO EACH EYE SCH (07:54)
[2016-11-29] MEDS: SODIUM CHLORIDE 0.9% FLUSH 10 ML FLUSH IVF SCH (07:54)
[2016-11-29] MEDS: SODIUM CHLORIDE 0.9% FLUSH 10 ML FLUSH IV FLUSH SCH (07:54)
[2016-11-29] MEDS: CHLORHEXIDINE 0.12% (ORAL KIT) 15 ML CUP MT SCH ×2 (07:55→20:27)
[2016-11-29] MEDS: RESP: BUDESONIDE 0.5 MG/2 ML NEB NEB SCH ×2 (08:04→20:00)
--- NOTE | 2016-11-29 08:10 | HHI.CCPN ---
Subjective Remarks/Hospital Course 56-year-old very pleasant gentleman with past medical history of COPD, and hypertension presents complaining of shortness of breath and nausea, generalized fatigue and chills for 2 days. He thinks it has been from being out in the heat. Denies any fever, chest pain, vomiting, abdominal pain, focal weakness or numbness. In the emergency department his saturation was in mid 80s on arrival with auditory wheezing and tachypnea. He was placed on 4 liters of NC and saturating in the low 90. He does not use oxygen at home. He also mentioned 2 days ago, he came home and was sitting in a chair and was taking his shoes off when he passed out. States he woke up and was still on the chair. This has never happen before. 10/25: Patient intubated secondary to increasing oxygen requirements, altered mental status. Discussed with son. Somewhat hypertensive post intubation. 10/26: Placed on rotaprone bed last evening. Flolan initiated. Saturations improved. Afebrile. Remains on Nimbex drip. 10/27: T max 99.7. Tolerated on not prone position 2 hours yesterday. Tolerating trickle feeds. FiO2 down to 55% 10/28: Tmax 99.9. When unprone for chest x-ray this a.m. desaturated. Currently on 90% FiO2. Actually hypertensive. No bowel movements. Remains paralyzed 10/29: Remains intubated sedated on continuous Prone therapy Except for chest x- ray. Fever 100.8. Panculture requested. Zyvox added. Continue IV sedation with propofol and fentanyl and Versed, neuromuscular paralysis with Nimbex 10/30: Prone cycle changed to 8 hr prone, 1 hr supine from 10/29. Due to hypoxia will continue with same cycle today. Chest x-ray remains unchanged. Patient remains severely hypoxemic FiO2 at 75% PEEP at 16. WBC count worsened to 18. Remains neuromuscularly paralyzed. 10/31: Patient remains critically ill but stable. Oxygen saturation 95% on 55 of FiO2 and PEEP of 16. Reduce PEEP to 14, FiO2 to 50% and start weaning Flolan. Increase supine time to 4 hours, reduce Prone time to 6 hours 11/01: Patient remains intubated sedated critically ill on neuromuscular paralysis. FiO2 reduced to 50, I will attempt PEEP wean gradually to 12 today. Prone/supine cycles will be changed to 6 hours each 11/02: FiO2 remains at 50%, PEEP reduced from 14 to 12 today, TV increased to 600 and RR to 20, in anticipation of discontinuing prone therapy, which will be DCd today. Off Flolan for 2 days 11/03: off pronation. fio2 up to 65% , peep 12. agitation causing desaturation. minimal improvements. 11/04: good diuresis yesterday, but despite that, fio2 persists at 65% and spo2 decreasing to 91% today. no real improvements and some worsening of pulmonary function despite ongoing aggressive therapies. still not safe for SBT given hypoxia. also severely hypertensive this morning. 11/05: continues to diurese well and Cr still at baseline. fio2 at 90% however, and no clinical improvements in mental status or hypoxia. still unsafe for SBT given hypoxemia. off pathway. hypertension under much better control. poor neuro status is concerning. 11/06: Remains severely hypoxemic. FiO2 was 100% PEEP 14. I reduce FiO2 to 90% after increasing PEEP to 16. Developed a flutter with RVR overnight, currently on Cardizem drip. Unable to do SBT due to very high settings 11/07: Remains hypoxemic and but able to wean FiO2 down to 80% with PEEP of 16. Remains unresponsive on sedation. Unable to trach due to his high vent settings and high FiO2. Remains on Cardizem and 15 mg per hour, with rate controlled a flutter. We'll start by mouth Cardizem in an attempt to wean IV Cardizem 11/08: Remains critically ill hypoxic but FiO2 now weaned to 60%, PEEP remains at 16. Very heavily sedated no withdrawal to pain. Will hold all continuos sedation. Sputum culture with Klebsiella sensitive to Rocephin. A flutter persistent, will start IV heparin 11/09 Patient is sedated with Diprivan and intubated, On Cardizem drip 15mg/hr for Aflutter. Heparin drip stated yesterday. 11/10 Patient remains sedated and intubated. On Heparin drip. Persistent fever with Tmax 102.5. ETT was replaced yesterday. 11/11 Patient was placed on Cardizem and amio drips overnight for Afib with RVR. Sedated with Diprivan and intubated. On Heparin drip. T;99.3 this morning. 11/12 Patient remains intubated and sedated with Diprivan. On Cardizem drip 15mg/ hr. Afebrile, Tmax 100.6 11/13 Patient is sedate with Diprivan and intubated. In Afib with RVR now on Amio drip. Tmax 100,4 11/14 Remains intubated sedated with propofol and fentanyl. Afib rate controlled , remains on amiodarone and Cardizem gtt. Fio2 remains high at 70%, PEEP 12. CXR persistent bibasilar infiltrates/effusion 11/15: Currently sedated with propofol and fentanyl drips. Currently in A. fib/ flutter on amiodarone drip and Cardizem drip. PEEP increased to 14. FiO2 65. 11/16: Tmax 100.1. Patient more alert and tachycardic this AM. Adding midazolam gtt for sedation and currently tolerating tube feeding. Positive BM. PEEP to 12. FiO2 75% 11/17: Afebrile. FiO2 down to 60%. PEEP set 12. Multiple tracheostomy hopefully on Saturday. Heart rate better control. 11/18: Afebrile. Discontinuing amiodarone drip today and switching to oral. FiO2 between 60 and 70%. Restarting epoprostenol in attempt to get FiO2 down to 50% for tracheostomy tomorrow 11/19 No events overnight. Sedated with Diprivan, Fentanyl and versed. Still requiring high O2 - on PRVC with PEEP;12 and FIO2 70%. Afebrile. 11/20 Patient remains sedated with Diprivan, versed, Fentanyl and intubated. On PRVC with PEEP: 12, FIO2 50% , sats 88-90%. On Heparin drip. Subjective 11/21: Tmax 99.4. Tolerating tube feeds. Remains on heparin drip. FiO2 down to 55%. PEEP of 10. Eyes open blinks spontaneously. Does squeeze and weakly on left side with encouragement 11/22: Intubated heavily sedated. FiO2 50%, remains on Flolan. PEEP 10. Bumex 1 mg 1 and Diamox 500 mg 1 IV. She will negative balance. Heparinized tube feeds on hold for tracheostomy today at 12. Remains in atrial flutter 11/23 Patient remains sedated with Diprivan, Fentanyl, Versed and intubated. On Heparin drip. For CT guided thoracentesis today. On APRV 11/24 Patient remains sedated and intubated. 20Fr CT placed yesterday for right sided PTX. Spiked fever with T 101.6. Remains on Heparin drip. 11/25 Patient remains intubated with Diprivan, fentanyl and intubated. On PRVC with PEEP: 10, FIO2 50%. Afebrile. 11/26 Patient is sedated with Diprivan, Fentanyl and intubated. Afebrile. On Heparin drip. On PRVC with PEEP: 10, FIO2 60% 11/27 Patient is scheduled for trach in OR today. Sedated and intubated. Heparin drip is off for trach. 11/28 Patient s/p trach yesterday. Sedated with Diprivan and Fentanyl. Afebrile. On PRVC with PEEP; 10 and FIO2 50% 11/29 No events overnight. Sedated and on ventilator via trach. For PEG tube placement today. Heparin drip on hold. Objective Vital Signs Date Time Temp Pulse Resp B/P (MAP) Pulse Ox O2 Delivery O2 Flow Rate FiO2 11/29/16 07:23 100 50 11/29/16 06:00 124 11/29/16 04:00 99.0 16 122/72 (89) 11/28/16 23:55 Ventilator Intake and Output 11/29/16 11/29/16 11/30/16 08:00 16:00 00:00 Intake Total 543 ml Output Total 1550 ml Balance -1007 ml Result Diagram: 11/29/16 0530 11/29/16 0530 Other Results Laboratory Tests Test 11/28/16 08:43 11/28/16 12:32 11/28/16 17:18 11/28/16 22:00 Blood Gas Puncture Site LT RADIAL Blood Gas Patient Temperature 98.6 Blood Gas HCO3 31 mmol/L Blood Gas Base Excess 7.3 mmol/L Blood Gas Oxygen Saturation 95 % Arterial Blood pH 7.49 Arterial Blood Partial Pressure CO2 41 mmHg Arterial Blood Partial Pressure O2 85 mmHg Arterial Blood Oxygen Content 20.7 Vol % Arterial Blood Carboxyhemoglobin 1.3 % Arterial Blood Methemoglobin 1.0 % Blood Gas Hemoglobin 15.6 G/DL Oxygen Delivery Device VENTILATOR Blood Gas Ventilator Setting PRVC/AC Blood Gas Inspired Oxygen 50 % Activated Partial Thromboplast Time 35.7 SEC 59.9 SEC Potassium Level 3.9 MEQ/L 3.9 MEQ/L Test 11/29/16 05:30 White Blood Count 15.1 TH/MM3 Red Blood Count 3.91 MIL/MM3 Hemoglobin 12.1 GM/DL Hematocrit 36.5 % Mean Corpuscular Volume 93.4 FL Mean Corpuscular Hemoglobin 31.0 PG Mean Corpuscular Hemoglobin Concent 33.1 % Red Cell Distribution Width 14.4 % Platelet Count 224 TH/MM3 Mean Platelet Volume 6.9 FL Neutrophils (%) (Auto) 90.5 % Lymphocytes (%) (Auto) 5.3 % Monocytes (%) (Auto) 3.6 % Eosinophils (%) (Auto) 0.2 % Basophils (%) (Auto) 0.4 % Neutrophils # (Auto) 13.7 TH/MM3 Lymphocytes # (Auto) 0.8 TH/MM3 Monocytes # (Auto) 0.5 TH/MM3 Eosinophils # (Auto) 0.0 TH/MM3 Basophils # (Auto) 0.1 TH/MM3 CBC Comment AUTO DIFF Activated Partial Thromboplast Time 61.0 SEC Blood Urea Nitrogen 9 MG/DL Creatinine LESS THAN 0.15 MG/DL Random Glucose 120 MG/DL Total Protein 5.4 GM/DL Calcium Level 6.6 MG/DL Sodium Level 145 MEQ/L Potassium Level 3.0 MEQ/L Chloride Level 101 MEQ/L Carbon Dioxide Level 28.2 MEQ/L Anion Gap 16 MEQ/L Estimat Glomerular Filtration Rate 690 ML/MIN Protein Corrected Calcium 7.4 MG/DL Imaging Last Impressions Chest X-Ray 11/28/16 0000 Signed Impressions: Service Date/Time: Monday, November 28, 2016 08:31 - CONCLUSION: Interval tracheostomy without complication. Stable basilar infiltrates and effusions Jayson Manning MD Brain MRI 11/26/16 0000 Signed Impressions: Service Date/Time: Saturday, November 26, 2016 19:52 - CONCLUSION: 1. Small focal signal abnormality in the superior medial left frontal lobe. This is nonspecific. This could be the sequela from prior insult such as a contusion or small infarct. An acute infarct is not seen. A small underlying lesion could have a similar appearance. One could perform a contrast-enhanced study to determine if there is any enhancement associated with this region. 2. There are a few scattered minimal punctate areas of demyelination seen not expected for the patient's age. 3. Sinus disease. Jayson Soto MD Lower Extremity Ultrasound 11/09/16 Signed Impressions: Service Date/Time: Wednesday, November 09, 2016 14:13 - CONCLUSION: Normal examination. Jayson Manning MD Liver Ultrasound 11/09/16 Signed Impressions: Service Date/Time: Wednesday, November 09, 2016 13:58 - CONCLUSION: Sono dense liver without duct dilatation. 4 mm common duct. Ward Kim MD FACR Chest CT 11/06/16 Signed Impressions: Service Date/Time: Sunday, November 06, 2016 11:24 - CONCLUSION: 1. Dense bilateral posterior lower lobe airspace consolidation consistent with aspiration versus less likely pneumonia. 2. Linear consolidation in the right middle lobe consistent with atelectasis versus aspiration. 3. Trace left and small right pleural effusions. 4. Support lines and tubes in good position. 5. Prominent coronary artery calcifications. Nico Vaughan MD Head CT 11/05/16 Signed Impressions: Service Date/Time: Saturday, November 05, 2016 21:43 - CONCLUSION: 1. No acute intracranial abnormalities. Pansinus fluid opacification. Cristofer De Santiago MD Abdomen X-Ray 10/29/16 0600 Signed Impressions: Service Date/Time: Saturday, October 29, 2016 04:41 - CONCLUSION: Nonspecific , nonobstructive bowel gas pattern. No evidence of free air. Jayson Taylor MD Carotid Artery Ultrasound 10/25/16 Signed Impressions: Service Date/Time: September 08:27 - CONCLUSION: Mild to moderate plaque in both carotid systems with less than 40%% diameter stenosis by velocity criteria. Jhonathan Dietz MD CT Angiography 10/25/16 Signed Impressions: Service Date/Time: September 06:12 - CONCLUSION: 1. Negative for pulmonary embolism. 2. There is a fairly large area of masslike consolidation in the medial right lung involving posterior segment right upper lobe and medial aspect of right lower lobe. There is associated right hilar and mediastinal adenopathy measuring up to 2.1 cm. Differential diagnosis includes pneumonia or underlying lung neoplasm. Close followup imaging recommended after treatment for pneumonia, to assess for underlying mass. Cristofer De Santiago MD Objective Remarks GENERAL: 56-year-old male, critically ill orotracheally intubated, heavily sedated SKIN: Warm and dry. Positive intertrigo HEAD: Atraumatic. Normocephalic. EYES: Pupils equal and round about 3 mm bilaterally and reactive. No scleral icterus. No injection or drainage. ENT: No nasal bleeding or discharge. Orotracheally intubated NECK: Trachea midline. No JVD. CARDIOVASCULAR: Atrial fibrillation rate controlled, IR. S1, S2 no S4. Diminished heart sounds. Without murmur, clicks, or rubs RESPIRATORY: Bilateral wheezes and rhonchi appreciated. Diminished. GASTROINTESTINAL: Abdomen soft, obese. Hypoactive bowel sounds appreciated MUSCULOSKELETAL: Extremities with trace lower extremity bilateral edema. No obvious deformities. NEUROLOGICAL: Withdraws to pain. Opens eyes intermittently. Positive gag. Positive corneal reflex. (Weakly follows commands by squeezing hands left greater than right side to Dr. Story 11/21/16 on sedation vacation) Date of Insertion: Nov 16, 2016 Line: PICC Side: Left Location: Antecubital A/P Assessment and Plan Neuro/Psych: CIM/SHEFALI s/p Neuromuscular paralysis for Prone therapy Agitated Delirium, Metabolic Encephalopathy Syncope On propofol,Fentanyl for sedation and vent synchrony. Goal of RASS -2 ,Daily sedation vacation MRI brain 11/26: Small focal signal abnormality in the superior medial left frontal lobe.This could be the sequela from prior insult such as a contusion or small infarct. An acute infarct is not seen. Neuro is following-Dr. Rdz prn hydromorphone for breakthrough. Haloperidol 5mg iv q4h prn for agitation. Brain CT on admission revealed no acute intracranial findings, CT brain 11/05- no acute findings. opacification of sinuses. Carotid ultrasound less than 50% stenosis bilaterally EEG 11/20: No seizure activity. EEG 11/09: severe encephalopathy PT/OT for range of motion CV: Atrial fib/ flutter with RVR Hypertension- On Amiodarone 400mg Q12, Digoxin 0.125 mg daily(Dig. level 0.5 on 11/26) On PO Cardizem 90 mg PO q6hr, Lopressor 50mg Q6, Clonidine 0.2mg Q8 for hypertension and Atrial fib/flutter Resume IV heparin for anticoagulation- Repeat echo with bubble study: 11/22: No shunt seen Echo 10/25 EF 60-65% Resp: Acute hypoxemic Respiratory failure - severe and persistent. s/p trach 11/27 Spontaneous Right sided PTX 2nd barotrauma Severe ARDS COPD exacerbation Pneumonia most likely community-acquired Obesity hypoventilation syndrome Tobacco use disorder On PRVC RR 16, TV 700, IT: 1.3, PEEP: 10, FIO2 60%.Decrease FIO2 50% Continue with vent support keep sat >92% s/p trach 11/[address] Martin s/p 20Fr CT placed for right PTX 11/23, monitor CT drainage- Check CXR/ABG Gen surg consulted for trach placement-Dr. Martin CT pulmonary angio revealed no pulmonary embolus. Masslike consolidation in the posterior right upper lobe and medial right lower lobe. Lymphadenopathy to 1 cm right hilum and subcarinal. Atelectasis left lower lobe. Discontinued Prone therapy 11/02/16. Albuterol/ipratropium every 4 hours with albuterol every 2 hours when necessary dyspnea. Ventilator bundle, Budesonide 0.5 mg aerosols twice a day. Methylprednisolone 40 mg IV daily Pulmonary/Dr. Wynne following GI: Morbid Obesity Elevated LFT's- now within normal. For PEG tube placement US liver: No ductal dilatation Tube feeds on hold for PEG tube placeemnt today (Vital high protein 1.5 at 40ml/ hr) Famotidine 20 milligrams mg twice a day for GI prophylaxis /renal: Monitor renal function, I/O's, electrolytes replacement per protocol. For K replacement today Endo: Hyperglycemia- SSI Q4 for glycemic control. . Heme: Normocytic anemia Monitor CBC, coags- patient is on heparin drip ID: Severe sepsis Pneumonia Continue abx(Zosyn) Monitor for signs of infections ( Fever, WBC) WBC is trending down, afebrile. Sputum: GNR 11/27 Sputum cx 11/23: Kleb, Pseudomonas, Follow up on sputum cx 11/27 s/p (ceftriaxone and Diflucan course). ID is following-Dr. Patel s/p ceftriaxone 11/02-11/09 for Enterobacter pneumonia. Repeat sputum Klebsiella sensitive to Rocephin 10/29/16-Enterobacter in sputum, 11/06/16, 11/10 sputum- Klebsiella Urine Legionella and pneumococcal antigens negative and influenza negative C-diff PCR is negative Access RUE PICC placed 11/05 through 11/15 replaced 11/16 with left upper extremity PICC Prophylaxis - GI, famotidine - DVT - IV heparin gtt on hold for PEG tube placement today 11/09 Doppler US LE negative for DVT Palliative care is following Critical Care: The total critical care time was 30 minutes. Time to perform other separately billable procedures was not included in the critical care time. Chepe Carney MD Nov 29, 2016 08:10
[2016-11-29 08:30] LABS: BANDS 15 % (0-6); METAMYELOCYTES 1 % (0-1); MYELOCYTES 8 % (0-0); PLATELET ESTIMATE SMEAR NORMAL (NORMAL); PLATELET MORPHOLOGY NORMAL (NORMAL); POLYS (SEG NEUTROPHILS) 69 % (16-70); TOXIC GRANULATION 1+ (NORMAL); WBC DIFF SAMPLE 100
[2016-11-29 08:31] LABS: SCAN/DIFF FINAL DIFF MANUAL
[2016-11-29 08:44] LABS: MAGNESIUM 1.6 MG/DL (1.5-2.5)
[2016-11-29] MEDS ORDERED: CALCIUM GLUCONATE INJ 1 GM in SODIUM CHLORIDE 0.9% INJ 100 ML IV ONE (09:00)
[2016-11-29] MEDS ORDERED: PROPOFOL 200 MG/20 ML AMP IV ONE (12:00)
[2016-11-29] MEDS ORDERED: MIDAZOLAM HCL 2 MG/2 ML VIAL IV ONE (12:00)
--- NOTE | 2016-11-29 12:23 | HHI.HCPN ---
Reason for visit a. To assist with evaluation and management of symptoms including: pain, dyspnea, encephalopathy. b. To assist medical decision maker(s) with: better understanding of current medical conditions; weighing benefits/burdens of medical treatment options; making medical treatment decisions. . Subjective/Interval History Patient seen and examined in ICU. No family at bedside. Patient remains on mech vent via tracheostomy. FiO2 50%, PEEP 10. Plan for PEG tube later today. No obvious signs of pain. Respirations unlabored on mech vent. Tmax 99.0. WBC 15.1. Total 5.4. Sputum culture 11/27/16 Klebsiella Pneumoniae, pseudomonas species, gram negative louis. . Family/friend interactions Palliative care number previously provided, family has elected to proceed with PEG tube. Will continue to communicate with family throughout hospital course. . Advance Directives Living Will: Never completed Health Care Surrogate: Never completed Durable Power of Fence Post Driver: Never completed Advance Directive Specifics Health Care Surrogate(s): Patient is currently incapacitated, uncertain if he will regain capacity. Patient is single. Has 1 son (Drake Andrews) and 2 daughters (Ira Froilan and Krystynaashia Palma). According to [place] statutes, health care proxy decision- making would fall to the majority of adult children. Krystyna Roth and Drake wish to particpate. . Significant change in goals: FULL CODE. Family is considering code status, I will address again after surgical procedures are complete. . Objective Vital Signs Date Time Temp Pulse Resp B/P (MAP) Pulse Ox O2 Delivery O2 Flow Rate FiO2 11/29/16 10:00 71 11/29/16 08:06 95 Ventilator 50 11/29/16 08:00 98.4 73 16 129/81 (97) 97 11/29/16 08:00 73 11/29/16 08:00 50 11/29/16 07:23 100 50 11/29/16 06:00 124 11/29/16 04:00 132 11/29/16 04:00 60 11/29/16 04:00 99.0 132 16 122/72 (89) 95 11/29/16 03:36 97 60 11/29/16 02:00 81 11/29/16 00:00 98.4 125 16 115/62 (79) 97 11/29/16 00:00 125 11/29/16 00:00 60 11/28/16 23:55 97 Ventilator 11/28/16 23:45 97 60 11/28/16 22:00 123 11/28/16 22:00 123 18 144/91 (108) 97 11/28/16 20:21 96 60 11/28/16 20:00 60 11/28/16 20:00 94 11/28/16 20:00 98.6 94 16 121/74 (90) 96 11/28/16 18:48 60 11/28/16 18:00 86 11/28/16 16:00 119 11/28/16 16:00 50 11/28/16 16:00 98.4 119 16 111/55 (73) 96 11/28/16 14:00 74 11/28/16 12:30 93 50 11/28/16 12:00 50 11/28/16 12:00 99.4 127 13 166/91 (116) 89 Intake & Output 11/29/16 11/29/16 07:00 19:00 Intake Total 1070 ml 587 ml Output Total 1550 ml Balance -480 ml 587 ml IV Total 950 ml 587 ml Tube Feeding 0 ml Other 120 ml Output Urine Total 1450 ml Stool Total 50 ml Chest Tube Drainage Total 50 ml Physical Exam CONSTITUTIONAL/GENERAL: This is an overweight, critically ill patient, on mechanical ventilation. TUBES/LINES/DRAINS: tracheosotmy, OG, left upper PIC line, PIV left forearm, bilateral soft wrist restraints, Ashley Shield, Santiago catheter, SCDs, right chest tube. SKIN: No jaundice, rashes, or lesions. Ecchymoses on upper extremities. Abrasion / scab on right knee. Skin temperature appropriate. Not diaphoretic. EYES: eyes open. ENT: unable to assess hearing given clinical condition. Nose without bleeding or purulent drainage. Throat difficult to visualize secondary to tubes. CARDIOVASCULAR: tachycardic, rate 120s. RESPIRATORY/CHEST: Unlabored respirations on mech vent. FiO2 50%, PEEP 10. Right chest tube. GASTROINTESTINAL: Abdomen soft, nondistended. Bowel sounds present. Tolerating tube feeding. GENITOURINARY: Without palpable bladder distension. Santiago catheter in place. MUSCULOSKELETAL: Extremities with 3+ edema. NEUROLOGICAL: Eyes open, attempts to track. Blinks and opens eyes on command. Does not squeeze hand or move extremities on command. Does not nod yes/no today. PSYCHIATRIC: Awake, calm. . Diagnostic Tests Laboratory Laboratory Tests Test 11/26/16 18:44 11/27/16 01:20 11/27/16 04:00 11/28/16 00:00 Activated Partial Thromboplast Time 33.1 SEC (24.3-30.1) 36.9 SEC (24.3-30.1) 38.5 SEC (24.3-30.1) 40.6 SEC (24.3-30.1) White Blood Count 20.0 TH/MM3 (4.0-11.0) Red Blood Count 4.17 MIL/MM3 (4.50-5.90) Hemoglobin 12.8 GM/DL (13.0-17.0) Hematocrit 39.1 % (39.0-51.0) Mean Corpuscular Volume 93.8 FL (80.0-100.0) Mean Corpuscular Hemoglobin 30.6 PG (27.0-34.0) Mean Corpuscular Hemoglobin Concent 32.6 % (32.0-36.0) Red Cell Distribution Width 14.7 % (11.6-17.2) Platelet Count 189 TH/MM3 (150-450) Mean Platelet Volume 7.8 FL (7.0-11.0) Neutrophils (%) (Auto) 91.2 % (16.0-70.0) Lymphocytes (%) (Auto) 3.6 % (9.0-44.0) Monocytes (%) (Auto) 4.7 % (0.0-8.0) Eosinophils (%) (Auto) 0.3 % (0.0-4.0) Basophils (%) (Auto) 0.2 % (0.0-2.0) Neutrophils # (Auto) 18.3 TH/MM3 (1.8-7.7) Lymphocytes # (Auto) 0.7 TH/MM3 (1.0-4.8) Monocytes # (Auto) 0.9 TH/MM3 (0-0.9) Eosinophils # (Auto) 0.1 TH/MM3 (0-0.4) Basophils # (Auto) 0.0 TH/MM3 (0-0.2) CBC Comment AUTO DIFF Differential Total Cells Counted 100 Neutrophils % (Manual) 65 % (16-70) Band Neutrophils % 29 % (0-6) Lymphocytes % 2 % (9-44) Monocytes % 1 % (0-8) Neutrophils # (Manual) 19.4 TH/MM3 (1.8-7.7) Metamyelocytes 1 % (0-1) Myelocytes 2 % (0-0) Differential Comment FINAL DIFF MANUAL Toxic Granulation (NORMAL) Blood Urea Nitrogen 9 MG/DL (7-18) Creatinine 0.19 MG/DL (0.60-1.30) Random Glucose 162 MG/DL (74-106) Calcium Level 7.9 MG/DL (8.5-10.1) Phosphorus Level 2.1 MG/DL (2.5-4.9) Magnesium Level 1.6 MG/DL (1.5-2.5) Sodium Level 135 MEQ/L (136-145) Potassium Level 3.6 MEQ/L (3.5-5.1) Chloride Level 95 MEQ/L (98-107) Carbon Dioxide Level 31.8 MEQ/L (21.0-32.0) Anion Gap 8 MEQ/L (5-15) Estimat Glomerular Filtration Rate 525 ML/MIN (>89) Test 11/28/16 05:30 11/28/16 08:43 11/28/16 12:32 11/28/16 17:18 White Blood Count 16.7 TH/MM3 (4.0-11.0) Red Blood Count 4.06 MIL/MM3 (4.50-5.90) Hemoglobin 12.5 GM/DL (13.0-17.0) Hematocrit 38.1 % (39.0-51.0) Mean Corpuscular Volume 93.8 FL (80.0-100.0) Mean Corpuscular Hemoglobin 30.8 PG (27.0-34.0) Mean Corpuscular Hemoglobin Concent 32.9 % (32.0-36.0) Red Cell Distribution Width 14.6 % (11.6-17.2) Platelet Count 213 TH/MM3 (150-450) Mean Platelet Volume 7.6 FL (7.0-11.0) Neutrophils (%) (Auto) 90.2 % (16.0-70.0) Lymphocytes (%) (Auto) 4.9 % (9.0-44.0) Monocytes (%) (Auto) 4.3 % (0.0-8.0) Eosinophils (%) (Auto) 0.3 % (0.0-4.0) Basophils (%) (Auto) 0.3 % (0.0-2.0) Neutrophils # (Auto) 15.0 TH/MM3 (1.8-7.7) Lymphocytes # (Auto) 0.8 TH/MM3 (1.0-4.8) Monocytes # (Auto) 0.7 TH/MM3 (0-0.9) Eosinophils # (Auto) 0.0 TH/MM3 (0-0.4) Basophils # (Auto) 0.1 TH/MM3 (0-0.2) CBC Comment AUTO DIFF Differential Total Cells Counted 100 Neutrophils % (Manual) 68 % (16-70) Band Neutrophils % 24 % (0-6) Lymphocytes % 3 % (9-44) Monocytes % 2 % (0-8) Neutrophils # (Manual) 15.9 TH/MM3 (1.8-7.7) Metamyelocytes 3 % (0-1) Differential Comment FINAL DIFF MANUAL Platelet Estimate NORMAL (NORMAL) Platelet Morphology Comment NORMAL (NORMAL) Red Cell Morphology Comment NORMAL (NORMAL) Activated Partial Thromboplast Time 44.1 SEC (24.3-30.1) 35.7 SEC (24.3-30.1) Blood Urea Nitrogen 11 MG/DL (7-18) Creatinine 0.17 MG/DL (0.60-1.30) Random Glucose 147 MG/DL (74-106) Calcium Level 7.7 MG/DL (8.5-10.1) Sodium Level 134 MEQ/L (136-145) Potassium Level 3.5 MEQ/L (3.5-5.1) 3.9 MEQ/L (3.5-5.1) Chloride Level 96 MEQ/L (98-107) Carbon Dioxide Level 33.8 MEQ/L (21.0-32.0) Anion Gap 4 MEQ/L (5-15) Estimat Glomerular Filtration Rate 597 ML/MIN (>89) Blood Gas Puncture Site LT RADIAL Blood Gas Patient Temperature 98.6 Blood Gas HCO3 31 mmol/L (22-26) Blood Gas Base Excess 7.3 mmol/L (-2-2) Blood Gas Oxygen Saturation 95 % (90-100) Arterial Blood pH 7.49 (7.380-7.420) Arterial Blood Partial Pressure CO2 41 mmHg (38-42) Arterial Blood Partial Pressure O2 85 mmHg (61-120) Arterial Blood Oxygen Content 20.7 Vol % (12.0-20.0) Arterial Blood Carboxyhemoglobin 1.3 % (0-4) Arterial Blood Methemoglobin 1.0 % (0-2) Blood Gas Hemoglobin 15.6 G/DL (12.0-16.0) Oxygen Delivery Device VENTILATOR Blood Gas Ventilator Setting [facility]/ Blood Gas Inspired Oxygen 50 % Test 11/28/16 22:00 11/29/16 05:30 Activated Partial Thromboplast Time 59.9 SEC (24.3-30.1) 61.0 SEC (24.3-30.1) Potassium Level 3.9 MEQ/L (3.5-5.1) 3.0 MEQ/L (3.5-5.1) White Blood Count 15.1 TH/MM3 (4.0-11.0) Red Blood Count 3.91 MIL/MM3 (4.50-5.90) Hemoglobin 12.1 GM/DL (13.0-17.0) Hematocrit 36.5 % (39.0-51.0) Mean Corpuscular Volume 93.4 FL (80.0-100.0) Mean Corpuscular Hemoglobin 31.0 PG (27.0-34.0) Mean Corpuscular Hemoglobin Concent 33.1 % (32.0-36.0) Red Cell Distribution Width 14.4 % (11.6-17.2) Platelet Count 224 TH/MM3 (150-450) Mean Platelet Volume 6.9 FL (7.0-11.0) Neutrophils (%) (Auto) 90.5 % (16.0-70.0) Lymphocytes (%) (Auto) 5.3 % (9.0-44.0) Monocytes (%) (Auto) 3.6 % (0.0-8.0) Eosinophils (%) (Auto) 0.2 % (0.0-4.0) Basophils (%) (Auto) 0.4 % (0.0-2.0) Neutrophils # (Auto) 13.7 TH/MM3 (1.8-7.7) Lymphocytes # (Auto) 0.8 TH/MM3 (1.0-4.8) Monocytes # (Auto) 0.5 TH/MM3 (0-0.9) Eosinophils # (Auto) 0.0 TH/MM3 (0-0.4) Basophils # (Auto) 0.1 TH/MM3 (0-0.2) CBC Comment AUTO DIFF Differential Total Cells Counted 100 Neutrophils % (Manual) 69 % (16-70) Band Neutrophils % 15 % (0-6) Lymphocytes % 5 % (9-44) Monocytes % 2 % (0-8) Neutrophils # (Manual) 14.0 TH/MM3 (1.8-7.7) Metamyelocytes 1 % (0-1) Myelocytes 8 % (0-0) Differential Comment FINAL DIFF MANUAL Atypical Lymphocytes % (0-0) Toxic Granulation 1+ (NORMAL) Platelet Estimate NORMAL (NORMAL) Platelet Morphology Comment NORMAL (NORMAL) Blood Urea Nitrogen 9 MG/DL (7-18) Creatinine LESS THAN 0.15 MG/DL Random Glucose 120 MG/DL (74-106) Total Protein 5.4 GM/DL (6.4-8.2) Calcium Level 6.6 MG/DL (8.5-10.1) Sodium Level 145 MEQ/L (136-145) Chloride Level 101 MEQ/L (98-107) Carbon Dioxide Level 28.2 MEQ/L (21.0-32.0) Anion Gap 16 MEQ/L (5-15) Estimat Glomerular Filtration Rate 690 ML/MIN (>89) Protein Corrected Calcium 7.4 MG/DL (8.5-10.1) Phosphorus Level 2.3 MG/DL (2.5-4.9) Magnesium Level 1.6 MG/DL (1.5-2.5) Result Diagram: 11/29/16 0530 11/29/16 0530 Microbiology Microbiology Date/Time Source Procedure Growth Status 11/27/16 09:55 Sputum Endotracheal Gram Stain - Final Resulted 11/27/16 09:55 Sputum Culture - Preliminary Klebsiella Pneumoniae Pseudomonas Species Gram Negative Louis Resulted Imaging Last Impressions Chest X-Ray 11/28/16 0000 Signed Impressions: Service Date/Time: Monday, November 28, 2016 08:31 - CONCLUSION: Interval tracheostomy without complication. Stable basilar infiltrates and effusions Jayson Manning MD Brain MRI 11/26/16 0000 Signed Impressions: Service Date/Time: Saturday, November 26, 2016 19:52 - CONCLUSION: 1. Small focal signal abnormality in the superior medial left frontal lobe. This is nonspecific. This could be the sequela from prior insult such as a contusion or small infarct. An acute infarct is not seen. A small underlying lesion could have a similar appearance. One could perform a contrast-enhanced study to determine if there is any enhancement associated with this region. 2. There are a few scattered minimal punctate areas of demyelination seen not expected for the patient's age. 3. Sinus disease. Jayson Soto MD Lower Extremity Ultrasound 11/09/16 0000 Signed Impressions: Service Date/Time: Wednesday, November 09, 2016 14:13 - CONCLUSION: Normal examination. Jayson Manning MD Liver Ultrasound 11/09/16 0000 Signed Impressions: Service Date/Time: Wednesday, November 09, 2016 13:58 - CONCLUSION: Sono dense liver without duct dilatation. 4 mm common duct. Ward Kim MD FACR Chest CT 11/06/16 0000 Signed Impressions: Service Date/Time: Sunday, November 06, 2016 11:24 - CONCLUSION: 1. Dense bilateral posterior lower lobe airspace consolidation consistent with aspiration versus less likely pneumonia. 2. Linear consolidation in the right middle lobe consistent with atelectasis versus aspiration. 3. Trace left and small right pleural effusions. 4. Support lines and tubes in good position. 5. Prominent coronary artery calcifications. Nico Vaughan MD Head CT 11/05/16 0000 Signed Impressions: Service Date/Time: Saturday, November 05, 2016 21:43 - CONCLUSION: 1. No acute intracranial abnormalities. Pansinus fluid opacification. Cristofer De Santiago MD Abdomen X-Ray 10/29/16 0600 Signed Impressions: Service Date/Time: Saturday, October 29, 2016 04:41 - CONCLUSION: Nonspecific , nonobstructive bowel gas pattern. No evidence of free air. Jayson Taylor MD Carotid Artery Ultrasound 10/25/16 0000 Signed Impressions: Service Date/Time: September 08:27 - CONCLUSION: Mild to moderate plaque in both carotid systems with less than 40%% diameter stenosis by velocity criteria. Jhonathan Dietz MD CT Angiography 10/25/16 0000 Signed Impressions: Service Date/Time: September 06:12 - CONCLUSION: 1. Negative for pulmonary embolism. 2. There is a fairly large area of masslike consolidation in the medial right lung involving posterior segment right upper lobe and medial aspect of right lower lobe. There is associated right hilar and mediastinal adenopathy measuring up to 2.1 cm. Differential diagnosis includes pneumonia or underlying lung neoplasm. Close followup imaging recommended after treatment for pneumonia, to assess for underlying mass. Cristofer De Santiago MD . Procedures * 11/27/16 - tracheostomy * 11/23/16 - right chest tube placement. * 11/10/16 - ETT replaced. * 11/04/16 - arterial line placement. * 10/25/16 - Intubation and central line placed. . Assessment and Plan Disease Oriented Problem List: (1) Acute respiratory failure (2) ARDS (adult respiratory distress syndrome) (3) COPD (chronic obstructive pulmonary disease) (4) Obesity hypoventilation syndrome (5) Anoxic encephalopathy (6) Metabolic encephalopathy (7) Atrial flutter (8) Leukocytosis (9) Sepsis (10) Hyperglycemia (11) Morbid obesity (12) Tobacco use (13) Hypertension Symptom Scale: (1) Pain 0-10 Scale: Unable to quantify Comment: On Fentanyl drip. (2) Dyspnea 0-10 Scale: Unable to quantify Comment: on vent to trach. (3) Encephalopathy 0-10 Scale: Unable to quantify Pertinent Non-Medical Issues Psychosocial: notes indicate patient is single. Has one son and one daughter. Was living with his son prior to admission. Spiritual: unknown. Legal: Patient is currently incapacitated, uncertain if he will regain capacity. Patient is single. Has 1 son (Drake Andrews) and 2 daughters ( Ira Mcgovern and Krystyna Palma). According to [place] statutes, health care proxy decision-making would fall to the majority of adult children. Krystyna Roth and Drake wish to particpate. Ethical issues impacting care: no known concerns at this time. . Important Contacts * Ira Mcgovern, daughter/ HCP: [phone] (cell) or [phone] ext. [phone] (work) * Drake Andrews, son/ HCP: [phone] (cell) or [phone] (work) * Krystyna Palma, daughter/ HCP: [phone] * Drake Henry girlfriend: [phone] . . Prognosis Mr. Andrews is an unfortunate 56-year-old male who was admitted with respiratory distress, pneumonia, ARDS with prolonged hospitalization/mechanical ventilation still requiring high FI 02 and PEEP needs, unable to proceed with tracheostomy/ PEG tube given medical instability, high oxygen needs. Overall condition does not appear to be improving. . Code Status: Full Code Plan * Decision Maker: Patient is currently incapacitated, uncertain if he will regain capacity. Patient is single. Has 1 son (Drake Andrews) and 2 daughters ( Ira Mcgovern and Krystyna Palma). According to [place] statutes, health care proxy decision-making would fall to the majority of adult children. Krystyna Roth and Drake wish to particpate. * FULL CODE - family considering code status. * Family considering CODE status, I will address again after surgical procedures are complete. Plan for PEG tube today. For now, goals remain aggressive. * SYMPTOMS: Pain: potential sources of pain include COPD, intubation, prolonged hospitalization, bedbound status, chest tube, infection, etc. on fentanyl drip, intermittent grimacing during physical exam. Given underlying encephalopathy no new pain medication recommendations at this time. Dyspnea: remains on prolonged mechanical ventilation requiring high Fi02 and PEEP support. Encephalopathy: patient with possible anoxic encephalopathy. No new medication recommendations at this time. * Palliative care will continue to follow throughout hospital course to assist with symptom management and clarification of goals as needed. . Attestation To help prompt me to consider important information that might be impacting today's encounter and assessment, information from prior notes written by myself or my colleagues may have been "brought forward" into today's note. My signature on this note, however, is an attestation that I personally performed the exam, history, and/or decision-making noted today, and, unless otherwise indicated, the interactions with patient, family, and staff as well as the review of records all occurred today. I also attest that the listed assessment and stated plan reflect my best clinical judgment today based on the combination of historical information, prior notes, and today's exam/ interactions. When time spent is documented, it refers only to time spent today by the signer, or if indicated, combined time spent today by collaborating physician/nurse practitioner. Sandra Mccabe Nov 29, 2016 12:22
--- NOTE | 2016-11-29 15:12 | GIPROC ---
[facility] [address] [facility]. [facility], [address] EGD PROCEDURE REPORT EXAM DATE: 11/29/2016 PATIENT NAME: Jayson Andrews MR #: [id number] BIRTHDATE: 1960 ATTENDING: Peggy Marino MD ORDER #: [id number] MOP HANDLE ASSEMBLER: Agustin Sorenson and Giovanna Hightower STATUS: inpatient INDICATIONS: The patient is a 56 yr old male here for an EGD due to feeding difficulties , needs peg for [facility] nutritional support PROCEDURE PERFORMED: EGD, diagnostic attempted PEG placement MEDICATIONS: None and Per Anesthesia. TOPICAL ANESTHETIC: none CONSENT: The patient understands the risks and benefits of the procedure and understands that these risks include, but are not limited to: sedation, allergic reaction, infection, perforation and/or bleeding. Alternative means of evaluation and treatment include, among others: physical exam, x-rays, and/or surgical intervention. The patient elects to proceed with this endoscopic procedure. medical equipment was checked for proper function. Hand hygiene and appropriate measures for infection prevention was taken. After the risks, benefits and alternatives of the procedure were thoroughly explained, Informed consent was verified, confirmed and timeout was successfully executed by the treatment team. The patient was anesthetized with topical anesthesia and the Pentax [id number] endoscope was introduced through the mouth and advanced to the second portion of the duodenum. Retroflexed views revealed a hiatal hernia The gastroscope was then slowly withdrawn and removed. Normal stomach mild esophagitis no transillumination or indentation seen-peg could not be placed endoscopically. ADVERSE EVENTS: There were no complications. IMPRESSIONS: 1. Normal stomach mild esophagitis no transillumination or indentation seen-peg could not be placed endoscopically 2. Retroflexed views revealed a hiatal hernia RECOMMENDATIONS: Ok to restart heparin drip consult IR for gastrostomy tube palcement restart tf PATIENT CONDITION: stable DISPOSITION: Inpatient REPEAT EXAM: Peggy Marino MD eSigned: Peggy Marino MD 11/29/2016 3:12 PM cc:
[2016-11-29] MEDS: RESP: ALBUTEROL 2.5 MG/IPRATROPIUM 0.5 MG NEB (PRN) NEB (20:00)
[2016-11-29 21:30] LABS: APTT (PATIENT) 25.3 SEC (24.3-30.1)
[2016-11-29 21:34] LABS: APTT (PATIENT) 25.1 SEC (24.3-30.1)
[2016-11-29] MEDS: LABETALOL HCL 100 MG/20 ML VIAL IV PUSH PRN (23:00)
[2016-11-30] VITALS (102 sets, daily range): BP systolic 95–206; BP diastolic 55–122; PULSE 73–146; RESP 12–23; TEMP 97.9–99.1; O2SAT 92–100
[2016-11-30] MEDS: LABETALOL HCL 100 MG/20 ML VIAL IV PUSH PRN ×2 (00:01→09:39)
[2016-11-30] MEDS: PROPOFOL 1000 MG/100 ML IV PRN ×7 (00:02→18:25)
[2016-11-30] MEDS: PIPERACIL-TAZO 4.5 GM PREMIX 100 ML IV SCH ×4 (00:20→17:31)
[2016-11-30] MEDS: fentaNYL DRIP 250 ML IV PRN ×3 (03:06→21:38)
[2016-11-30] MEDS: METOPROLOL TARTRATE 5 MG/5 ML VIAL IV PUSH PRN ×2 (03:07→06:38)
[2016-11-30] MEDS: RESP: ALBUTEROL 2.5 MG/IPRATROPIUM 0.5 MG NEB (PRN) NEB (03:34)
[2016-11-30] MEDS: INSULIN NovoLIN REGULAR SUPPLEMENTAL SCALE SQ SCH ×6 (04:00→20:00)
[2016-11-30 05:14] LABS: AUTOMATED NEUTROPHIL # 13.7 TH/MM3 (1.8-7.7); BASOPHIL % 0.2 % (0.0-2.0); EOSINOPHIL % 0.2 % (0.0-4.0); HEMATOCRIT 41.2 % (39.0-51.0); LYMPH % 6.6 % (9.0-44.0); MEAN CELL VOLUME 93.6 FL (80.0-100.0); MEAN CORPUSCULAR HEMOGLOBIN 30.8 PG (27.0-34.0); MEAN CORPUSCULAR HGB CONC 32.9 % (32.0-36.0); MONO % 3.8 % (0.0-8.0); NEUT % 89.2 % (16.0-70.0); PLATELET COUNT 261 TH/MM3 (150-450); RED CELL DISTRIBUTION WIDTH 14.8 % (11.6-17.2); WHITE BLOOD COUNT 15.3 TH/MM3 (4.0-11.0)
[2016-11-30 05:15] LABS: HEMO FLAGS AUTO DIFF
--- NOTE | 2016-11-30 05:16 | RADRPT ---
EXAM DATE/TIME: 11/30/2016 03:55 [facility] COMPARISON: CHEST SINGLE AP, November 28, 2016, 8:31. INDICATIONS : Shortness of breath. MEDICAL HISTORY : Chronic obstructive pulmonary disease. Hypertension. Hypercholesterolemia. SURGICAL HISTORY : None. ENCOUNTER: Subsequent ACUITY: 4 - 6 days PAIN SCORE: Non-responsive. LOCATION: chest FINDINGS: A single portable frontal view of the chest shows a right thoracostomy tube. Tracheostomy tube. Left subclavian central line. No pneumothorax. Low lung volumes. By lateral pleural effusions and bibasila r pulmonary infiltrates. These have progressed in the prior study. Heart is mildly enlarged. CONCLUSION: Progression in the bilateral pleural effusions and bibasilar pulmonary infiltrates. Fito Mar Jr., MD on November 30, 2016 at 5:13 Board Certified Radiologist. This report was verified electronically.
[2016-11-30 05:23] LABS: APTT (PATIENT) 24.3 SEC (24.3-30.1)
[2016-11-30 05:42] LABS: BICARBONATE 29.6 MEQ/L (21.0-32.0); MAGNESIUM 1.8 MG/DL (1.5-2.5)
[2016-11-30] MEDS: RESP: BUDESONIDE 0.5 MG/2 ML NEB NEB SCH ×2 (07:22→19:33)
[2016-11-30 08:24] LABS: BANDS 17 % (0-6); METAMYELOCYTES 4 % (0-1); MYELOCYTES 7 % (0-0); NEUTROPHIL # MANUAL DIFF 14.5 TH/MM3 (1.8-7.7); PLATELET ESTIMATE SMEAR NORMAL (NORMAL); PLATELET MORPHOLOGY NORMAL (NORMAL); POLYS (SEG NEUTROPHILS) 67 % (16-70); WBC DIFF SAMPLE 100
[2016-11-30 08:25] LABS: SCAN/DIFF FINAL DIFF MANUAL
[2016-11-30] MEDS: DIGOXIN 0.125 MG TAB PO SCH (09:00)
[2016-11-30] MEDS: SODIUM CHLORIDE 0.9% FLUSH 10 ML FLUSH IV FLUSH SCH (09:00)
[2016-11-30] MEDS: SODIUM CHLORIDE 0.9% FLUSH 10 ML FLUSH IVF SCH (09:00)
[2016-11-30] MEDS: methylPREDNISolone SOD SUCC 40 MG/1 ML VIAL IV SCH (09:00)
[2016-11-30] MEDS: FAMOTIDINE 20 MG TAB NG SCH ×2 (09:00→21:38)
[2016-11-30] MEDS: ARTIFICIAL TEARS OPTH OINT 3.5 APPLIC/3.5 GM TUBO EACH EYE SCH ×2 (09:00→21:41)
[2016-11-30] MEDS: SODIUM CHLORIDE 0.9% FLUSH 10 ML FLUSH SCH (09:00)
[2016-11-30] MEDS: hydrALAZINE HCL 20 MG/ML VIAL IV PUSH PRN (09:38)
[2016-11-30] MEDS: CHLORHEXIDINE 0.12% (ORAL KIT) 15 ML CUP MT SCH ×2 (09:39→21:41)
--- NOTE | 2016-11-30 10:52 | RADRPT ---
EXAM DATE/TIME: 11/30/2016 09:43 [facility] COMPARISON: CHEST SINGLE AP, November 30, 2016, 3:55. INDICATIONS : Confirm NG Tube placement. MEDICAL HISTORY : Hypercholesterolemia. Renal calculi. Hypertension. COPD SURGICAL HISTORY : None. ENCOUNTER: Subsequent ACUITY: 1 day PAIN SCORE: Non-responsive. LOCATION: Abdomen FINDINGS: There is a very faint linear opacity in the mid lower thorax at the region of the GE junction that ma y reflect a nasogastric catheter. Otherwise, no definite mesenteric catheter is demonstrated. No dila kerwin loops of bowel are noted in the visualized portions of the abdomen. Visualized osseous structures are grossly intact. CONCLUSION: 1. No definite nasogastric catheter is identified. Repeat examination centered higher in the thorax m ay be performed for more definitive evaluation. Consider repositioning the nasogastric catheter prior to repeat imaging. Nico Vaughan MD on November 30, 2016 at 10:47 Board Certified Radiologist. This report was verified electronically.
--- NOTE | 2016-11-30 10:57 | HHI.CCPN ---
Subjective Remarks/Hospital Course 56-year-old very pleasant gentleman with past medical history of COPD, and hypertension presents complaining of shortness of breath and nausea, generalized fatigue and chills for 2 days. He thinks it has been from being out in the heat. Denies any fever, chest pain, vomiting, abdominal pain, focal weakness or numbness. In the emergency department his saturation was in mid 80s on arrival with auditory wheezing and tachypnea. He was placed on 4 liters of NC and saturating in the low 90. He does not use oxygen at home. He also mentioned 2 days ago, he came home and was sitting in a chair and was taking his shoes off when he passed out. States he woke up and was still on the chair. This has never happen before. 10/25: Patient intubated secondary to increasing oxygen requirements, altered mental status. Discussed with son. Somewhat hypertensive post intubation. 10/26: Placed on rotaprone bed last evening. Flolan initiated. Saturations improved. Afebrile. Remains on Nimbex drip. 10/27: T max 99.7. Tolerated on not prone position 2 hours yesterday. Tolerating trickle feeds. FiO2 down to 55% 10/28: Tmax 99.9. When unprone for chest x-ray this a.m. desaturated. Currently on 90% FiO2. Actually hypertensive. No bowel movements. Remains paralyzed 10/29: Remains intubated sedated on continuous Prone therapy Except for chest x- ray. Fever 100.8. Panculture requested. Zyvox added. Continue IV sedation with propofol and fentanyl and Versed, neuromuscular paralysis with Nimbex 10/30: Prone cycle changed to 8 hr prone, 1 hr supine from 10/29. Due to hypoxia will continue with same cycle today. Chest x-ray remains unchanged. Patient remains severely hypoxemic FiO2 at 75% PEEP at 16. WBC count worsened to 18. Remains neuromuscularly paralyzed. 10/31: Patient remains critically ill but stable. Oxygen saturation 95% on 55 of FiO2 and PEEP of 16. Reduce PEEP to 14, FiO2 to 50% and start weaning Flolan. Increase supine time to 4 hours, reduce Prone time to 6 hours 11/01: Patient remains intubated sedated critically ill on neuromuscular paralysis. FiO2 reduced to 50, I will attempt PEEP wean gradually to 12 today. Prone/supine cycles will be changed to 6 hours each 11/02: FiO2 remains at 50%, PEEP reduced from 14 to 12 today, TV increased to 600 and RR to 20, in anticipation of discontinuing prone therapy, which will be DCd today. Off Flolan for 2 days 11/03: off pronation. fio2 up to 65% , peep 12. agitation causing desaturation. minimal improvements. 11/04: good diuresis yesterday, but despite that, fio2 persists at 65% and spo2 decreasing to 91% today. no real improvements and some worsening of pulmonary function despite ongoing aggressive therapies. still not safe for SBT given hypoxia. also severely hypertensive this morning. 11/05: continues to diurese well and Cr still at baseline. fio2 at 90% however, and no clinical improvements in mental status or hypoxia. still unsafe for SBT given hypoxemia. off pathway. hypertension under much better control. poor neuro status is concerning. 11/06: Remains severely hypoxemic. FiO2 was 100% PEEP 14. I reduce FiO2 to 90% after increasing PEEP to 16. Developed a flutter with RVR overnight, currently on Cardizem drip. Unable to do SBT due to very high settings 11/07: Remains hypoxemic and but able to wean FiO2 down to 80% with PEEP of 16. Remains unresponsive on sedation. Unable to trach due to his high vent settings and high FiO2. Remains on Cardizem and 15 mg per hour, with rate controlled a flutter. We'll start by mouth Cardizem in an attempt to wean IV Cardizem 11/08: Remains critically ill hypoxic but FiO2 now weaned to 60%, PEEP remains at 16. Very heavily sedated no withdrawal to pain. Will hold all continuos sedation. Sputum culture with Klebsiella sensitive to Rocephin. A flutter persistent, will start IV heparin 11/09 Patient is sedated with Diprivan and intubated, On Cardizem drip 15mg/hr for Aflutter. Heparin drip stated yesterday. 11/10 Patient remains sedated and intubated. On Heparin drip. Persistent fever with Tmax 102.5. ETT was replaced yesterday. 11/11 Patient was placed on Cardizem and amio drips overnight for Afib with RVR. Sedated with Diprivan and intubated. On Heparin drip. T;99.3 this morning. 11/12 Patient remains intubated and sedated with Diprivan. On Cardizem drip 15mg/ hr. Afebrile, Tmax 100.6 11/13 Patient is sedate with Diprivan and intubated. In Afib with RVR now on Amio drip. Tmax 100,4 11/14 Remains intubated sedated with propofol and fentanyl. Afib rate controlled , remains on amiodarone and Cardizem gtt. Fio2 remains high at 70%, PEEP 12. CXR persistent bibasilar infiltrates/effusion 11/15: Currently sedated with propofol and fentanyl drips. Currently in A. fib/ flutter on amiodarone drip and Cardizem drip. PEEP increased to 14. FiO2 65. 11/16: Tmax 100.1. Patient more alert and tachycardic this AM. Adding midazolam gtt for sedation and currently tolerating tube feeding. Positive BM. PEEP to 12. FiO2 75% 11/17: Afebrile. FiO2 down to 60%. PEEP set 12. Multiple tracheostomy hopefully on Saturday. Heart rate better control. 11/18: Afebrile. Discontinuing amiodarone drip today and switching to oral. FiO2 between 60 and 70%. Restarting epoprostenol in attempt to get FiO2 down to 50% for tracheostomy tomorrow 11/19 No events overnight. Sedated with Diprivan, Fentanyl and versed. Still requiring high O2 - on PRVC with PEEP;12 and FIO2 70%. Afebrile. 11/20 Patient remains sedated with Diprivan, versed, Fentanyl and intubated. On PRVC with PEEP: 12, FIO2 50% , sats 88-90%. On Heparin drip. 11/21: Tmax 99.4. Tolerating tube feeds. Remains on heparin drip. FiO2 down to 55%. PEEP of 10. Eyes open blinks spontaneously. Does squeeze and weakly on left side with encouragement 11/22: Intubated heavily sedated. FiO2 50%, remains on Flolan. PEEP 10. Bumex 1 mg 1 and Diamox 500 mg 1 IV. She will negative balance. Heparinized tube feeds on hold for tracheostomy today at 12. Remains in atrial flutter 11/23 Patient remains sedated with Diprivan, Fentanyl, Versed and intubated. On Heparin drip. For CT guided thoracentesis today. On APRV 11/24 Patient remains sedated and intubated. 20Fr CT placed yesterday for right sided PTX. Spiked fever with T 101.6. Remains on Heparin drip. 11/25 Patient remains intubated with Diprivan, fentanyl and intubated. On PRVC with PEEP: 10, FIO2 50%. Afebrile. 11/26 Patient is sedated with Diprivan, Fentanyl and intubated. Afebrile. On Heparin drip. On PRVC with PEEP: 10, FIO2 60% 11/27 Patient is scheduled for trach in OR today. Sedated and intubated. Heparin drip is off for trach. 11/28 Patient s/p trach yesterday. Sedated with Diprivan and Fentanyl. Afebrile. On PRVC with PEEP; 10 and FIO2 50% 11/29 No events overnight. Sedated and on ventilator via trach. For PEG tube placement today. Heparin drip on hold. Subjective 11/30: Currently afebrile. MAXIMUM TEMPERATURE 100. Positive BM via fecal containing device. Tube feeds on hold secondary to plan PEG tube placement today. Heparin drip on hold as well. Objective Vital Signs Date Time Temp Pulse Resp B/P (MAP) Pulse Ox O2 Delivery O2 Flow Rate FiO2 11/30/16 07:28 96 40 11/30/16 06:00 116 11/30/16 04:00 97.9 17 153/114 (127) 11/29/16 08:06 Ventilator Intake and Output 11/30/16 11/30/16 12/01/16 08:00 16:00 00:00 Intake Total 1521 ml Output Total 700 ml Balance 821 ml Result Diagram: 11/30/16 0410 11/30/16 0410 Other Results Microbiology Date/Time Source Procedure Growth Status 11/23/16 19:26 Blood Peripheral Aerobic Blood Culture - Final NO GROWTH IN 5 DAYS Complete 11/23/16 19:26 Blood Peripheral Anaerobic Blood Culture - Final NO GROWTH IN 5 DAYS Complete 11/08/16 14:15 Stool Stool Stool Occult Blood ([facility]LER) - Final HEMOCCULT NEGATIVE Complete 11/27/16 09:55 Sputum Endotracheal Gram Stain - Final Resulted 11/27/16 09:55 Sputum Culture - Preliminary Klebsiella Pneumoniae Stenotrophomonas Maltophilia Pseudomonas Aeruginosa Resulted 11/11/16 01:15 Urine Catheterized Urine Urine Culture - Final Ana Albicans Complete Imaging Last Impressions Chest X-Ray 11/30/16 0000 Signed Impressions: Service Date/Time: Wednesday, November 30, 2016 03:55 - CONCLUSION: Progression in the bilateral pleural effusions and bibasilar pulmonary infiltrates. Fito Mar Jr., MD Abdomen X-Ray 11/30/16 0000 Signed Impressions: Service Date/Time: Wednesday, November 30, 2016 09:43 - CONCLUSION: 1. No definite nasogastric catheter is identified. Repeat examination centered higher in the thorax may be performed for more definitive evaluation. Consider repositioning the nasogastric catheter prior to repeat imaging. Nico Vaughan MD Brain MRI 11/26/16 0000 Signed Impressions: Service Date/Time: Saturday, November 26, 2016 19:52 - CONCLUSION: 1. Small focal signal abnormality in the superior medial left frontal lobe. This is nonspecific. This could be the sequela from prior insult such as a contusion or small infarct. An acute infarct is not seen. A small underlying lesion could have a similar appearance. One could perform a contrast-enhanced study to determine if there is any enhancement associated with this region. 2. There are a few scattered minimal punctate areas of demyelination seen not expected for the patient's age. 3. Sinus disease. Jayson Soto MD Lower Extremity Ultrasound 11/09/16 0000 Signed Impressions: Service Date/Time: Wednesday, November 09, 2016 14:13 - CONCLUSION: Normal examination. Jayson Manning MD Liver Ultrasound 11/09/16 0000 Signed Impressions: Service Date/Time: Wednesday, November 09, 2016 13:58 - CONCLUSION: Sono dense liver without duct dilatation. 4 mm common duct. Ward Kim MD FACR Chest CT 11/06/16 0000 Signed Impressions: Service Date/Time: Sunday, November 06, 2016 11:24 - CONCLUSION: 1. Dense bilateral posterior lower lobe airspace consolidation consistent with aspiration versus less likely pneumonia. 2. Linear consolidation in the right middle lobe consistent with atelectasis versus aspiration. 3. Trace left and small right pleural effusions. 4. Support lines and tubes in good position. 5. Prominent coronary artery calcifications. Nico Vaughan MD Head CT 11/05/16 0000 Signed Impressions: Service Date/Time: Saturday, November 05, 2016 21:43 - CONCLUSION: 1. No acute intracranial abnormalities. Pansinus fluid opacification. Cristofer De Santiago MD Carotid Artery Ultrasound 10/25/16 0000 Signed Impressions: Service Date/Time: September 08:27 - CONCLUSION: Mild to moderate plaque in both carotid systems with less than 40%% diameter stenosis by velocity criteria. Jhonathan Dietz MD CT Angiography 10/25/16 0000 Signed Impressions: Service Date/Time: September 06:12 - CONCLUSION: 1. Negative for pulmonary embolism. 2. There is a fairly large area of masslike consolidation in the medial right lung involving posterior segment right upper lobe and medial aspect of right lower lobe. There is associated right hilar and mediastinal adenopathy measuring up to 2.1 cm. Differential diagnosis includes pneumonia or underlying lung neoplasm. Close followup imaging recommended after treatment for pneumonia, to assess for underlying mass. Cristofer De Santiago MD Objective Remarks GENERAL: 56-year-old male, critically ill orotracheally intubated SKIN: Warm and dry. Positive intertrigo HEAD: Atraumatic. Normocephalic. EYES: Pupils equal and round about 3 mm bilaterally and reactive. No scleral icterus. No injection or drainage. ENT: No nasal bleeding or discharge. Orotracheally intubated NECK: Trachea midline. No JVD. Tracheostomy site is clean dry and intact CARDIOVASCULAR: Tachycardia, IR. S1, S2 no S4. Diminished heart sounds. Without murmur, clicks, or rubs RESPIRATORY: Bilateral inspiratory and expiratory wheezes and coarse bilateral anterior and posterior rhonchi appreciated. Diminished. GASTROINTESTINAL: Abdomen soft, obese. Hypoactive bowel sounds appreciated MUSCULOSKELETAL: Extremities with trace lower extremity bilateral edema. No obvious deformities. NEUROLOGICAL: Withdraws to pain. Opens eyes intermittently. Positive gag. Positive corneal reflex. Date of Insertion: Nov 16, 2016 Line: PICC Side: Left Location: Antecubital A/P Assessment and Plan Neuro/Psych: CIM/SHEFALI s/p Neuromuscular paralysis for Prone therapy Agitated Delirium, Metabolic Encephalopathy Syncope Currently on Diprivan at 35 g per minute and,Fentanyl drip at 250 mg an hour for sedation and vent synchrony. Goal of RASS -2 , Daily sedation vacation MRI brain 11/26: Small focal signal abnormality in the superior medial left frontal lobe.This could be the sequela from prior insult such as a contusion or small infarct. An acute infarct is not seen. Neuro has followed-Dr. Rdz prn hydromorphone for breakthrough. Haloperidol 5mg iv q4h prn for agitation. Brain CT on admission revealed no acute intracranial findings, CT brain 11/05- no acute findings. opacification of sinuses. Carotid ultrasound less than 50% stenosis bilaterally EEG 11/20: No seizure activity. EEG 11/09: severe encephalopathy PT/OT for range of motion CV: Atrial fib/ flutter with RVR Hypertension- On Amiodarone 200mg Q12, Digoxin 0.125 mg daily(Dig. level 0.5 on 11/26). Repeat in a.m. On PO diltiazem 90 mg PO q6hr, metoprolol 50mg Q6, Clonidine 0.2mg Q8 for hypertension and Atrial fib/flutter Resume IV heparin for anticoagulation-when clinically indicated Repeat echo with bubble study: 11/22: No shunt seen Echo 10/25 EF 60-65% Resp: Acute hypoxemic Respiratory failure - severe and persistent. s/p trach 11/27 Spontaneous Right sided PTX 2nd barotrauma Severe ARDS COPD exacerbation Pneumonia most likely community-acquired Obesity hypoventilation syndrome Tobacco use disorder On PRVC RR 16, TV 650, IT: 1.3, PEEP: 9, FIO2 40% Albuterol/ipratropium aerosols every 4 hours of albuterol aerosols every 2 hours. Dyspnea Ventilator bundle Continue with vent support keep sat >92% s/p trach 11/[address] Martin #8 Shiley s/p 20Fr CT placed for right PTX 11/23, monitor CT drainage- or cc past [address] pulmonary angio revealed no pulmonary embolus. Masslike consolidation in the posterior right upper lobe and medial right lower lobe. Lymphadenopathy to 1 cm right hilum and subcarinal. Atelectasis left lower lobe. Discontinued Prone therapy 11/02/16. Budesonide 0.5 mg aerosols twice a day. Methylprednisolone 40 mg IV daily Pulmonary/Dr. Wynne following GI: Morbid Obesity Elevated LFT's- now within normal. For PEG tube placement today US liver: No ductal dilatation Tube feeds on hold for PEG tube placeemnt today (Vital high protein 1.5 at 40ml/ hr) Famotidine 20 milligrams mg twice a day for GI prophylaxis /renal: Monitor renal function, I/O's, electrolytes replacement per protocol. Endo: Hyperglycemia- SSI Q4 with Regular Insulin mild protocol for glycemic control. Previously and Levemir 62 units twice a day . Heme: Normocytic anemia Monitor CBC, coags- patient is on heparin drip ID: Severe sepsis HAP Continue abx(Zosyn) Monitor for signs of infections ( Fever, WBC) WBC is trending down, afebrile. Sputum: Klebsiella, stenotrophomonas and Pseudomonas 11/27 Sputum cx 11/23: Kleb, Pseudomonas, Currently on piperacillin/tazobactam s/p (ceftriaxone and fluconazole course). ID is following-Dr. Patel s/p ceftriaxone 11/02-11/09 for Enterobacter pneumonia. Repeat sputum Klebsiella sensitive to Rocephin 10/29/16-Enterobacter in sputum, 11/06/16, 11/10 sputum- Klebsiella Urine Legionella and pneumococcal antigens negative and influenza negative C-diff PCR is negative Access RUE PICC placed 11/05 through 11/15 replaced 11/16 with left upper extremity PICC Prophylaxis - GI, famotidine - DVT - IV heparin gtt on hold for PEG tube placement today 11/09 Doppler US LE negative for DVT Palliative care is following Critical Care: The total critical care time was 30 minutes. Time to perform other separately billable procedures was not included in the critical care time. Ubaldo Story MD Nov 30, 2016 10:57
[2016-11-30] MEDS ORDERED: NITROGLYCERIN-D5W 50 MG/250 ML 250 ML IV PRN (11:15)
[2016-11-30] MEDS: niCARdipine INJ 25 MG in SODIUM CHLOR 0.9% 250 ML INJ 240 ML IV PRN ×2 (11:38→13:51)
[2016-11-30] MEDS: RESP: ALBUTEROL 2.5 MG/IPRATROPIUM 0.5 MG NEB (SCH) NEB ×4 (12:00→23:25)
[2016-11-30] MEDS ORDERED: DIGOXIN 0.5 MG/2 ML VIAL IV PUSH ONE (12:15)
[2016-11-30] MEDS ORDERED: IOHEXOL 350 MG/ML 50 ML BTL (for RAD DIAG) G-TUBE ONE (13:31)
[2016-11-30] MEDS: MAGNESIUM SULFATE 1 GM PREMIX 100 ML IV SCH ×2 (13:49→14:51)
[2016-11-30] MEDS: cloNIDine HCL 0.2 MG TAB OG-TUBE SCH ×2 (15:15→21:38)
[2016-11-30] MEDS: DILTIAZEM HCL 90 MG TAB PO SCH ×2 (15:15→17:32)
[2016-11-30] MEDS: METOPROLOL TARTRATE 50 MG TAB PO SCH ×2 (15:15→17:32)
--- NOTE | 2016-11-30 16:08 | PD.RAD ---
Post Procedure Progress Note Pre Procedure Diagnosis: (1) Obesity hypoventilation syndrome (2) Encephalopathy Post Procedure Diagnosis: (1) Encephalopathy (2) Sepsis (3) Obesity hypoventilation syndrome Procedure Date: Nov 30, 2016 Supervising Radiologist: Jorge Jolly Proceduralist/Assist: Krista Mcginnis, RT(R)(CV), RT Villa(R)() Anesthesia: Local Plan of Activity Patient to Unit: Nursing Unit Patient Condition: Poor See PACS Report for procedural detail/treatment Feeding Tube Gastrostomy Placement Telugu: Jorge Vilchis MD Nov 30, 2016 16:08
--- NOTE | 2016-11-30 16:25 | RADRPT ---
EXAM DATE/TIME: 11/30/2016 12:22 [facility] COMPARISON: No previous studies available for comparison. INDICATIONS : Patient with history of respiratory distress in need of gastrostomy tube for nutrition. MEDICAL HISTORY : HTN High cholesterol COPD Kidney Stones Sleep apnea SURGICAL HISTORY : Tracheostomy ENCOUNTER: Initial ACUITY: 2 months PAIN SCORE: Nonresponsive. FLUORO TIME: 3.5 minutes IMAGE SERIES: 1 CONTRAST: 30 cc Omnipaque (iohexol) 350 DEVICE(S): 1.) 18 Fr gastrostomy tube PROCEDURE : 1. Limited abdominal ultrasound. 2. Fluoroscopically guided gastrostomy tube placement. 3. Conscious sedation with continuous EKG and oximetry monitoring. The risks, benefits and alternatives to the procedure were explained and verbal and written consent w as obtained. The site was prepped in sterile fashion. Full sterile technique was used, including ca p, mask, sterile gloves and gown and a large sterile sheet. Hand hygiene and 2% chlorhexidine and/or betadine/alcohol prep was utilized per protocol for cutaneous antisepsis. The skin and subcutaneous tissues were infiltrated with local anesthetic solution. Sterile gel and sterile probe cover were u tilized for ultrasound guidance. Ultrasound was used to rosy the position of the liver. The stomach was insufflated with room air. Th ree percutaneous fasteners were placed to secure the anterior gastric wall. A small incision was made between the fasteners. The stomach was accessed with an 18 gauge needle. A n 0.035 wire was advanced into the small bowel. The tract was dilated. The gastrostomy tube was int roduced through a peel-away sheath. The position was confirmed with an injection of contrast. Conscious sedation was performed with the prescribed dosages and duration as above in the presence of an independent trained radiology nurse to assist in the monitoring of the patient. EKG and oximetry remained stable throughout the procedure. The patient tolerated the procedure well and there were n o complications. The patient was sent to post anesthesia recovery in stable condition. CONCLUSION: Uncomplicated gastrostomy tube placement as above. Jorge Jolly MD on November 30, 2016 at 16:23 Board Certified Radiologist. This report was verified electronically.
--- NOTE | 2016-11-30 16:59 | HHI.GIFU ---
Subjective Remarks Resting in bed. Awake on vent. No distress. Had G tube placed by IR today. (Anne-Marie Montiel) Objective Vitals I&O Vital Signs Date Time Temp Pulse Resp B/P (MAP) Pulse Ox O2 Delivery O2 Flow Rate FiO2 11/30/16 16:00 93 40 11/30/16 14:50 146 13 163/94 (117) 93 11/30/16 14:45 146 15 162/90 (114) 93 11/30/16 14:40 146 14 161/96 (117) 93 11/30/16 14:35 146 13 164/100 (121) 93 11/30/16 14:30 146 12 157/91 (113) 93 11/30/16 14:25 146 13 154/92 (112) 93 11/30/16 14:20 146 13 154/94 (114) 93 11/30/16 14:15 146 13 154/92 (112) 93 11/30/16 14:10 146 13 154/84 (107) 92 11/30/16 14:05 146 13 148/86 (106) 92 11/30/16 14:00 146 14 140/81 (100) 92 11/30/16 13:55 146 13 134/81 (98) 93 11/30/16 13:51 145 139/82 11/30/16 13:50 145 14 139/82 (101) 92 11/30/16 13:49 145 11/30/16 13:48 145 14 129/80 (96) 93 11/30/16 13:39 95 100 11/30/16 12:28 144 16 198/103 (134) 98 11/30/16 12:24 145 15 195/105 (135) 97 11/30/16 12:20 146 15 186/103 (130) 95 11/30/16 12:18 146 16 177/96 (123) 95 11/30/16 12:17 146 17 175/108 (130) 95 11/30/16 12:00 40 11/30/16 12:00 145 17 160/102 (121) 95 11/30/16 11:55 145 13 159/100 (119) 95 11/30/16 11:50 145 16 163/99 (120) 95 11/30/16 11:45 145 15 163/95 (117) 95 11/30/16 11:40 145 12 167/96 (119) 95 11/30/16 11:39 145 13 159/99 (119) 95 11/30/16 11:38 145 11/30/16 11:14 145 16 165/106 (125) 96 11/30/16 11:14 96 40 11/30/16 10:32 144 16 177/113 (134) 96 11/30/16 10:22 144 15 175/112 (133) 96 11/30/16 10:13 145 17 190/113 (138) 96 11/30/16 10:08 144 17 194/122 (146) 96 11/30/16 10:05 144 15 199/113 (141) 95 11/30/16 10:01 144 18 206/117 (146) 97 11/30/16 10:00 144 17 184/120 (141) 97 11/30/16 09:42 143 17 187/112 (137) 99 11/30/16 09:38 144 16 194/118 (143) 98 11/30/16 09:35 143 17 191/119 (143) 99 11/30/16 09:30 138 17 191/115 (140) 99 11/30/16 09:01 137 16 185/105 (131) 100 11/30/16 08:30 141 16 97/63 (74) 100 11/30/16 08:00 141 16 95/55 (68) 98 11/30/16 08:00 40 11/30/16 07:28 96 40 11/30/16 06:00 116 11/30/16 04:12 100 40 11/30/16 04:00 40 11/30/16 04:00 97.9 137 17 153/114 (127) 98 11/30/16 04:00 114 11/30/16 02:00 141 11/30/16 01:04 100 40 11/30/16 00:00 132 11/30/16 00:00 40 11/30/16 00:00 99.1 127 16 113/66 (82) 98 11/29/16 22:08 100 40 11/29/16 22:00 95 11/29/16 20:00 99.5 96 16 191/105 (133) 98 11/29/16 20:00 40 11/29/16 20:00 95 11/29/16 19:59 100 40 11/29/16 19:20 100 50 I/O 11/29/16 11/29/16 11/29/16 11/30/16 11/30/16 11/30/16 07:00 15:00 23:00 07:00 15:00 23:00 Intake Total 970 ml 725 ml 628 ml 1621 ml 450 ml Output Total 1550 ml 1050 ml 700 ml Balance -580 ml 725 ml -422 ml 921 ml 450 ml IV Total 850 ml 675 ml 628 ml 1310 ml 450 ml Tube Feeding 0 ml 311 ml Other 120 ml 50 ml Output Urine Total 1450 ml 1000 ml 600 ml Stool Total 50 ml 50 ml Chest Tube Drainage Total 50 ml 0 ml 100 ml Laboratory Laboratory Tests Test 11/29/16 18:45 11/29/16 20:50 11/30/16 04:10 Activated Partial Thromboplast Time 25.3 25.1 24.3 White Blood Count 15.3 Red Blood Count 4.40 Hemoglobin 13.6 Hematocrit 41.2 Mean Corpuscular Volume 93.6 Mean Corpuscular Hemoglobin 30.8 Mean Corpuscular Hemoglobin Concent 32.9 Red Cell Distribution Width 14.8 Platelet Count 261 Mean Platelet Volume 7.6 Neutrophils (%) (Auto) 89.2 Lymphocytes (%) (Auto) 6.6 Monocytes (%) (Auto) 3.8 Eosinophils (%) (Auto) 0.2 Basophils (%) (Auto) 0.2 Neutrophils # (Auto) 13.7 Lymphocytes # (Auto) 1.0 Monocytes # (Auto) 0.6 Eosinophils # (Auto) 0.0 Basophils # (Auto) 0.0 CBC Comment AUTO DIFF Differential Total Cells Counted 100 Neutrophils % (Manual) 67 Band Neutrophils % 17 Lymphocytes % 2 Monocytes % 3 Neutrophils # (Manual) 14.5 Metamyelocytes 4 Myelocytes 7 Differential Comment FINAL DIFF MANUAL Atypical Lymphocytes Platelet Estimate NORMAL Platelet Morphology Comment NORMAL Red Cell Morphology Comment NORMAL Blood Urea Nitrogen 11 Creatinine 0.16 Random Glucose 113 Calcium Level 8.1 Phosphorus Level 2.4 Magnesium Level 1.8 Sodium Level 135 Potassium Level 4.0 Chloride Level 97 Carbon Dioxide Level 29.6 Anion Gap 8 Estimat Glomerular Filtration Rate 641 Date/Time Source Procedure Growth Status 11/23/16 19:26 Blood Peripheral Aerobic Blood Culture - Final NO GROWTH IN 5 DAYS Complete 11/23/16 19:26 Blood Peripheral Anaerobic Blood Culture - Final NO GROWTH IN 5 DAYS Complete 11/08/16 14:15 Stool Stool Stool Occult Blood ([facility]) - Final HEMOCCULT NEGATIVE Complete 11/27/16 09:55 Sputum Endotracheal Gram Stain - Final Resulted 11/27/16 09:55 Sputum Culture - Preliminary Klebsiella Pneumoniae Stenotrophomonas Maltophilia Pseudomonas Aeruginosa Resulted 11/11/16 01:15 Urine Catheterized Urine Urine Culture - Final Ana Albicans Complete Imaging Last Impressions Gastrostomy Tube Placement 11/30/16 0000 Signed Impressions: Service Date/Time: Wednesday, November 30, 2016 12:22 - CONCLUSION: Uncomplicated gastrostomy tube placement as above. Jorge Jolly MD Chest X-Ray 11/30/16 0000 Signed Impressions: Service Date/Time: Wednesday, November 30, 2016 03:55 - CONCLUSION: Progression in the bilateral pleural effusions and bibasilar pulmonary infiltrates. Fito Mar Jr., MD Abdomen X-Ray 11/30/16 0000 Signed Impressions: Service Date/Time: Wednesday, November 30, 2016 09:43 - CONCLUSION: 1. No definite nasogastric catheter is identified. Repeat examination centered higher in the thorax may be performed for more definitive evaluation. Consider repositioning the nasogastric catheter prior to repeat imaging. Nico Vaughan MD Brain MRI 11/26/16 0000 Signed Impressions: Service Date/Time: Saturday, November 26, 2016 19:52 - CONCLUSION: 1. Small focal signal abnormality in the superior medial left frontal lobe. This is nonspecific. This could be the sequela from prior insult such as a contusion or small infarct. An acute infarct is not seen. A small underlying lesion could have a similar appearance. One could perform a contrast-enhanced study to determine if there is any enhancement associated with this region. 2. There are a few scattered minimal punctate areas of demyelination seen not expected for the patient's age. 3. Sinus disease. Jayson Soto MD Lower Extremity Ultrasound 11/09/16 0000 Signed Impressions: Service Date/Time: Wednesday, November 09, 2016 14:13 - CONCLUSION: Normal examination. Jayson Manning MD Liver Ultrasound 11/09/16 0000 Signed Impressions: Service Date/Time: Wednesday, November 09, 2016 13:58 - CONCLUSION: Sono dense liver without duct dilatation. 4 mm common duct. Ward G. Miles, MD FACR Chest CT 11/06/16 0000 Signed Impressions: Service Date/Time: Sunday, November 06, 2016 11:24 - CONCLUSION: 1. Dense bilateral posterior lower lobe airspace consolidation consistent with aspiration versus less likely pneumonia. 2. Linear consolidation in the right middle lobe consistent with atelectasis versus aspiration. 3. Trace left and small right pleural effusions. 4. Support lines and tubes in good position. 5. Prominent coronary artery calcifications. Nico Vaughan MD Head CT 11/05/16 0000 Signed Impressions: Service Date/Time: Saturday, November 05, 2016 21:43 - CONCLUSION: 1. No acute intracranial abnormalities. Pansinus fluid opacification. Cristofer De Santiago MD Carotid Artery Ultrasound 10/25/16 0000 Signed Impressions: Service Date/Time: , October 25, 2016 08:27 - CONCLUSION: Mild to moderate plaque in both carotid systems with less than 40%% diameter stenosis by velocity criteria. Jhonathan Dietz MD CT Angiography 10/25/16 0000 Signed Impressions: Service Date/Time: , October 25, 2016 06:12 - CONCLUSION: 1. Negative for pulmonary embolism. 2. There is a fairly large area of masslike consolidation in the medial right lung involving posterior segment right upper lobe and medial aspect of right lower lobe. There is associated right hilar and mediastinal adenopathy measuring up to 2.1 cm. Differential diagnosis includes pneumonia or underlying lung neoplasm. Close followup imaging recommended after treatment for pneumonia, to assess for underlying mass. Cristofer De Santiago MD Physical Exam HEENT: Normocephalic; atraumatic; no jaundice. CHEST: Tracheostomy to vent. Course breath sounds. CARDIAC: Irregular ABDOMEN: Soft, obese, nontender; no hepatosplenomegaly; bowel sounds are present in all four quadrants. EXTREMITIES: Generalized edema. [employer]: Lethargic, awake, follows commands (Anne-Marie Montiel) Assessment and Plan Plan ASSESSMENT - Dysphagia. S/P EGD (11/29/16)---> 1. Normal stomach mild esophagitis no transillumination or indentation seen-peg could not be placed endoscopically 2. Retroflexed views revealed a hiatal hernia. Pt went and had G-tube placed by IR today. Further orders per IR. - Respiratory failure/ARDS/COPD/PNA. S/P tracheostomy. Solumedrol, nebs, Zosyn - Sepsis/Leukocytosis. Sputum with Klebsiella pneumoniae, stenotrophomonas maltiophilia, PSAE. WBC 15.3. Zosyn - Atrial fibrillation. Amiodarone. BB. Heparin, digoxin - HTN, per attending. PLAN - S/P G tube placement by IR - Start Vital 1.5 at 30cc/hr and increase to GR of 60cc/hr per IR orders - GI will sign off, please reconsult as needed - This pt seen by myself and Dr Marino and this note is written on her behalf (Anne-Marie Montiel) Anne-Marie Montiel Nov 30, 2016 16:59 Peggy Marino MD Dec 01, 2016 15:10
--- NOTE | 2016-11-30 17:07 | HHI.HCPN ---
Reason for visit a. To assist with evaluation and management of symptoms including: pain, dyspnea, encephalopathy. b. To assist medical decision maker(s) with: better understanding of current medical conditions; weighing benefits/burdens of medical treatment options; making medical treatment decisions. . Subjective/Interval History Patient seen and examined in ICU. Discussed with nurse and Dr. Story. No family at bedside. Patient remains on mech vent via tracheostomy. FiO2 40%. PEG tube placed today, dressing clean and dry. No obvious signs of pain. Respirations unlabored on mech vent. Tmax 99.5. Tachycardic rate 140s. WBC 15.3. Sputum culture 11/27/16 Klebsiella Pneumoniae, Pseudomonas aeruginosa, Stenotrophomonas maltophilia. . Family/friend interactions No family at bedside. . Advance Directives Living Will: Never completed Health Care Surrogate: Never completed Durable Power of Special Police Officer: Never completed Advance Directive Specifics Health Care Surrogate(s): Patient is currently incapacitated, uncertain if he will regain capacity. Patient is single. Has 1 son (Drake Andrews) and 2 daughters (Ira Mcgovern and Krystynaashia Palma). According to [place] statutes, health care proxy decision- making would fall to the majority of adult children. Krystyna Roth and Drake wish to particpate. . Significant change in goals: FULL CODE. Goals remain aggressive. . Objective Vital Signs Date Time Temp Pulse Resp B/P (MAP) Pulse Ox O2 Delivery O2 Flow Rate FiO2 11/30/16 16:00 93 40 11/30/16 14:50 146 13 163/94 (117) 11/30/16 14:45 146 15 162/90 (114) 93 11/30/16 14:40 146 14 161/96 (117) 93 11/30/16 14:35 146 13 164/100 (121) 93 11/30/16 14:30 146 12 157/91 (113) 93 11/30/16 14:25 146 13 154/92 (112) 93 11/30/16 14:20 146 13 154/94 (114) 93 11/30/16 14:15 146 13 154/92 (112) 93 11/30/16 14:10 146 13 154/84 (107) 92 11/30/16 14:05 146 13 148/86 (106) 92 11/30/16 14:00 146 14 140/81 (100) 92 11/30/16 13:55 146 13 134/81 (98) 93 11/30/16 13:51 145 139/82 11/30/16 13:50 145 14 139/82 (101) 92 11/30/16 13:49 145 11/30/16 13:48 145 14 129/80 (96) 93 11/30/16 13:39 95 100 11/30/16 12:28 144 16 198/103 (134) 98 11/30/16 12:24 145 15 195/105 (135) 97 11/30/16 12:20 146 15 186/103 (130) 95 11/30/16 12:18 146 16 177/96 (123) 95 11/30/16 12:17 146 17 175/108 (130) 95 11/30/16 12:00 40 11/30/16 12:00 145 17 160/102 (121) 95 11/30/16 11:55 145 13 159/100 (119) 95 11/30/16 11:50 145 16 163/99 (120) 95 11/30/16 11:45 145 15 163/95 (117) 95 11/30/16 11:40 145 12 167/96 (119) 95 11/30/16 11:39 145 13 159/99 (119) 95 11/30/16 11:38 145 11/30/16 11:14 145 16 165/106 (125) 96 11/30/16 11:14 96 40 11/30/16 10:32 144 16 177/113 (134) 96 11/30/16 10:22 144 15 175/112 (133) 96 11/30/16 10:13 145 17 190/113 (138) 96 11/30/16 10:08 144 17 194/122 (146) 96 11/30/16 10:05 144 15 199/113 (141) 95 11/30/16 10:01 144 18 206/117 (146) 97 11/30/16 10:00 144 17 184/120 (141) 97 11/30/16 09:42 143 17 187/112 (137) 99 11/30/16 09:38 144 16 194/118 (143) 98 11/30/16 09:35 143 17 191/119 (143) 99 11/30/16 09:30 138 17 191/115 (140) 99 11/30/16 09:01 137 16 185/105 (131) 100 11/30/16 08:30 141 16 97/63 (74) 100 11/30/16 08:00 141 16 95/55 (68) 98 11/30/16 08:00 40 11/30/16 07:28 96 40 11/30/16 06:00 116 11/30/16 04:12 100 40 11/30/16 04:00 40 11/30/16 04:00 97.9 137 17 153/114 (127) 98 11/30/16 04:00 114 11/30/16 02:00 141 11/30/16 01:04 100 40 11/30/16 00:00 132 11/30/16 00:00 40 11/30/16 00:00 99.1 127 16 113/66 (82) 98 11/29/16 22:08 100 40 11/29/16 22:00 95 11/29/16 20:00 99.5 96 16 191/105 (133) 98 11/29/16 20:00 40 11/29/16 20:00 95 11/29/16 19:59 100 40 11/29/16 19:20 100 50 Intake & Output 11/30/16 11/30/16 07:00 19:00 Intake Total 1721 ml 450 ml Output Total 700 ml Balance 1021 ml 450 ml IV Total 1410 ml 450 ml Tube Feeding 311 ml Output Urine Total 600 ml Chest Tube Drainage Total 100 ml Physical Exam CONSTITUTIONAL/GENERAL: This is an overweight, critically ill patient, on mechanical ventilation. TUBES/LINES/DRAINS: tracheosotmy, OG, left upper PIC line, PIV left forearm, bilateral soft wrist restraints, Ashley Shield, Santiago catheter, SCDs, right chest tube. SKIN: No jaundice, rashes, or lesions. Ecchymoses on upper extremities. Abrasion / scab on right knee. Skin temperature appropriate. Not diaphoretic. EYES: eyes open. CARDIOVASCULAR: tachycardic, rate 140s. RESPIRATORY/CHEST: Unlabored respirations on mech vent. FiO2 40%. Right chest tube. GASTROINTESTINAL: Abdomen soft, nondistended. Bowel sounds present. Tolerating tube feeding. GENITOURINARY: Without palpable bladder distension. Santiago catheter in place. MUSCULOSKELETAL: Extremities with 2+ edema. NEUROLOGICAL: Eyes open, attempts to track. PSYCHIATRIC: Awake, calm. . Diagnostic Tests Laboratory Laboratory Tests Test 11/28/16 00:00 11/28/16 05:30 11/28/16 08:43 11/28/16 12:32 Activated Partial Thromboplast Time 40.6 SEC (24.3-30.1) 44.1 SEC (24.3-30.1) 35.7 SEC (24.3-30.1) White Blood Count 16.7 TH/MM3 (4.0-11.0) Red Blood Count 4.06 MIL/MM3 (4.50-5.90) Hemoglobin 12.5 GM/DL (13.0-17.0) Hematocrit 38.1 % (39.0-51.0) Mean Corpuscular Volume 93.8 FL (80.0-100.0) Mean Corpuscular Hemoglobin 30.8 PG (27.0-34.0) Mean Corpuscular Hemoglobin Concent 32.9 % (32.0-36.0) Red Cell Distribution Width 14.6 % (11.6-17.2) Platelet Count 213 TH/MM3 (150-450) Mean Platelet Volume 7.6 FL (7.0-11.0) Neutrophils (%) (Auto) 90.2 % (16.0-70.0) Lymphocytes (%) (Auto) 4.9 % (9.0-44.0) Monocytes (%) (Auto) 4.3 % (0.0-8.0) Eosinophils (%) (Auto) 0.3 % (0.0-4.0) Basophils (%) (Auto) 0.3 % (0.0-2.0) Neutrophils # (Auto) 15.0 TH/MM3 (1.8-7.7) Lymphocytes # (Auto) 0.8 TH/MM3 (1.0-4.8) Monocytes # (Auto) 0.7 TH/MM3 (0-0.9) Eosinophils # (Auto) 0.0 TH/MM3 (0-0.4) Basophils # (Auto) 0.1 TH/MM3 (0-0.2) CBC Comment AUTO DIFF Differential Total Cells Counted 100 Neutrophils % (Manual) 68 % (16-70) Band Neutrophils % 24 % (0-6) Lymphocytes % 3 % (9-44) Monocytes % 2 % (0-8) Neutrophils # (Manual) 15.9 TH/MM3 (1.8-7.7) Metamyelocytes 3 % (0-1) Differential Comment FINAL DIFF MANUAL Platelet Estimate NORMAL (NORMAL) Platelet Morphology Comment NORMAL (NORMAL) Red Cell Morphology Comment NORMAL (NORMAL) Blood Urea Nitrogen 11 MG/DL (7-18) Creatinine 0.17 MG/DL (0.60-1.30) Random Glucose 147 MG/DL (74-106) Calcium Level 7.7 MG/DL (8.5-10.1) Sodium Level 134 MEQ/L (136-145) Potassium Level 3.5 MEQ/L (3.5-5.1) Chloride Level 96 MEQ/L (98-107) Carbon Dioxide Level 33.8 MEQ/L (21.0-32.0) Anion Gap 4 MEQ/L (5-15) Estimat Glomerular Filtration Rate 597 ML/MIN (>89) Blood Gas Puncture Site LT RADIAL Blood Gas Patient Temperature 98.6 Blood Gas HCO3 31 mmol/L (22-26) Blood Gas Base Excess 7.3 mmol/L (-2-2) Blood Gas Oxygen Saturation 95 % (90-100) Arterial Blood pH 7.49 (7.380-7.420) Arterial Blood Partial Pressure CO2 41 mmHg (38-42) Arterial Blood Partial Pressure O2 85 mmHg (61-120) Arterial Blood Oxygen Content 20.7 Vol % (12.0-20.0) Arterial Blood Carboxyhemoglobin 1.3 % (0-4) Arterial Blood Methemoglobin 1.0 % (0-2) Blood Gas Hemoglobin 15.6 G/DL (12.0-16.0) Oxygen Delivery Device VENTILATOR Blood Gas Ventilator Setting [facility]/ Blood Gas Inspired Oxygen 50 % Test 11/28/16 17:18 11/28/16 22:00 11/29/16 05:30 11/29/16 16:30 Potassium Level 3.9 MEQ/L (3.5-5.1) 3.9 MEQ/L (3.5-5.1) 3.0 MEQ/L (3.5-5.1) 4.3 MEQ/L (3.5-5.1) Activated Partial Thromboplast Time 59.9 SEC (24.3-30.1) 61.0 SEC (24.3-30.1) White Blood Count 15.1 TH/MM3 (4.0-11.0) Red Blood Count 3.91 MIL/MM3 (4.50-5.90) Hemoglobin 12.1 GM/DL (13.0-17.0) Hematocrit 36.5 % (39.0-51.0) Mean Corpuscular Volume 93.4 FL (80.0-100.0) Mean Corpuscular Hemoglobin 31.0 PG (27.0-34.0) Mean Corpuscular Hemoglobin Concent 33.1 % (32.0-36.0) Red Cell Distribution Width 14.4 % (11.6-17.2) Platelet Count 224 TH/MM3 (150-450) Mean Platelet Volume 6.9 FL (7.0-11.0) Neutrophils (%) (Auto) 90.5 % (16.0-70.0) Lymphocytes (%) (Auto) 5.3 % (9.0-44.0) Monocytes (%) (Auto) 3.6 % (0.0-8.0) Eosinophils (%) (Auto) 0.2 % (0.0-4.0) Basophils (%) (Auto) 0.4 % (0.0-2.0) Neutrophils # (Auto) 13.7 TH/MM3 (1.8-7.7) Lymphocytes # (Auto) 0.8 TH/MM3 (1.0-4.8) Monocytes # (Auto) 0.5 TH/MM3 (0-0.9) Eosinophils # (Auto) 0.0 TH/MM3 (0-0.4) Basophils # (Auto) 0.1 TH/MM3 (0-0.2) CBC Comment AUTO DIFF Differential Total Cells Counted 100 Neutrophils % (Manual) 69 % (16-70) Band Neutrophils % 15 % (0-6) Lymphocytes % 5 % (9-44) Monocytes % 2 % (0-8) Neutrophils # (Manual) 14.0 TH/MM3 (1.8-7.7) Metamyelocytes 1 % (0-1) Myelocytes 8 % (0-0) Differential Comment FINAL DIFF MANUAL Atypical Lymphocytes % (0-0) Toxic Granulation 1+ (NORMAL) Platelet Estimate NORMAL (NORMAL) Platelet Morphology Comment NORMAL (NORMAL) Blood Urea Nitrogen 9 MG/DL (7-18) Creatinine LESS THAN 0.15 MG/DL Random Glucose 120 MG/DL (74-106) Total Protein 5.4 GM/DL (6.4-8.2) Calcium Level 6.6 MG/DL (8.5-10.1) Sodium Level 145 MEQ/L (136-145) Chloride Level 101 MEQ/L (98-107) Carbon Dioxide Level 28.2 MEQ/L (21.0-32.0) Anion Gap 16 MEQ/L (5-15) Estimat Glomerular Filtration Rate 690 ML/MIN (>89) Protein Corrected Calcium 7.4 MG/DL (8.5-10.1) Phosphorus Level 2.3 MG/DL (2.5-4.9) Magnesium Level 1.6 MG/DL (1.5-2.5) Test 11/29/16 18:45 11/29/16 20:50 11/30/16 04:10 Activated Partial Thromboplast Time 25.3 SEC (24.3-30.1) 25.1 SEC (24.3-30.1) 24.3 SEC (24.3-30.1) White Blood Count 15.3 TH/MM3 (4.0-11.0) Red Blood Count 4.40 MIL/MM3 (4.50-5.90) Hemoglobin 13.6 GM/DL (13.0-17.0) Hematocrit 41.2 % (39.0-51.0) Mean Corpuscular Volume 93.6 FL (80.0-100.0) Mean Corpuscular Hemoglobin 30.8 PG (27.0-34.0) Mean Corpuscular Hemoglobin Concent 32.9 % (32.0-36.0) Red Cell Distribution Width 14.8 % (11.6-17.2) Platelet Count 261 TH/MM3 (150-450) Mean Platelet Volume 7.6 FL (7.0-11.0) Neutrophils (%) (Auto) 89.2 % (16.0-70.0) Lymphocytes (%) (Auto) 6.6 % (9.0-44.0) Monocytes (%) (Auto) 3.8 % (0.0-8.0) Eosinophils (%) (Auto) 0.2 % (0.0-4.0) Basophils (%) (Auto) 0.2 % (0.0-2.0) Neutrophils # (Auto) 13.7 TH/MM3 (1.8-7.7) Lymphocytes # (Auto) 1.0 TH/MM3 (1.0-4.8) Monocytes # (Auto) 0.6 TH/MM3 (0-0.9) Eosinophils # (Auto) 0.0 TH/MM3 (0-0.4) Basophils # (Auto) 0.0 TH/MM3 (0-0.2) CBC Comment AUTO DIFF Differential Total Cells Counted 100 Neutrophils % (Manual) 67 % (16-70) Band Neutrophils % 17 % (0-6) Lymphocytes % 2 % (9-44) Monocytes % 3 % (0-8) Neutrophils # (Manual) 14.5 TH/MM3 (1.8-7.7) Metamyelocytes 4 % (0-1) Myelocytes 7 % (0-0) Differential Comment FINAL DIFF MANUAL Atypical Lymphocytes % (0-0) Platelet Estimate NORMAL (NORMAL) Platelet Morphology Comment NORMAL (NORMAL) Red Cell Morphology Comment NORMAL (NORMAL) Blood Urea Nitrogen 11 MG/DL (7-18) Creatinine 0.16 MG/DL (0.60-1.30) Random Glucose 113 MG/DL (74-106) Calcium Level 8.1 MG/DL (8.5-10.1) Phosphorus Level 2.4 MG/DL (2.5-4.9) Magnesium Level 1.8 MG/DL (1.5-2.5) Sodium Level 135 MEQ/L (136-145) Potassium Level 4.0 MEQ/L (3.5-5.1) Chloride Level 97 MEQ/L (98-107) Carbon Dioxide Level 29.6 MEQ/L (21.0-32.0) Anion Gap 8 MEQ/L (5-15) Estimat Glomerular Filtration Rate 641 ML/MIN (>89) Result Diagram: 11/30/1640911/30/16409 Microbiology Microbiology Date/Time Source Procedure Growth Status 11/23/16 19:26 Blood Peripheral Aerobic Blood Culture - Final NO GROWTH IN 5 DAYS Complete 11/23/16 19:26 Blood Peripheral Anaerobic Blood Culture - Final NO GROWTH IN 5 DAYS Complete 11/08/16 14:15 Stool Stool Stool Occult Blood (TYLER) - Final HEMOCCULT NEGATIVE Complete 11/27/16 09:55 Sputum Endotracheal Gram Stain - Final Resulted 11/27/16 09:55 Sputum Culture - Preliminary Klebsiella Pneumoniae Stenotrophomonas Maltophilia Pseudomonas Aeruginosa Resulted 11/11/16 01:15 Urine Catheterized Urine Urine Culture - Final Ana Albicans Complete . Imaging Last Impressions Gastrostomy Tube Placement 11/30/16 0000 Signed Impressions: Service Date/Time: Wednesday, November 30, 2016 12:22 - CONCLUSION: Uncomplicated gastrostomy tube placement as above. Jorge Jolly MD Chest X-Ray 11/30/16 0000 Signed Impressions: Service Date/Time: Wednesday, November 30, 2016 03:55 - CONCLUSION: Progression in the bilateral pleural effusions and bibasilar pulmonary infiltrates. Fito Mar Jr., MD Abdomen X-Ray 11/30/16 0000 Signed Impressions: Service Date/Time: Wednesday, November 30, 2016 09:43 - CONCLUSION: 1. No definite nasogastric catheter is identified. Repeat examination centered higher in the thorax may be performed for more definitive evaluation. Consider repositioning the nasogastric catheter prior to repeat imaging. Nico Vaughan MD Brain MRI 11/26/16 0000 Signed Impressions: Service Date/Time: Saturday, November 26, 2016 19:52 - CONCLUSION: 1. Small focal signal abnormality in the superior medial left frontal lobe. This is nonspecific. This could be the sequela from prior insult such as a contusion or small infarct. An acute infarct is not seen. A small underlying lesion could have a similar appearance. One could perform a contrast-enhanced study to determine if there is any enhancement associated with this region. 2. There are a few scattered minimal punctate areas of demyelination seen not expected for the patient's age. 3. Sinus disease. Jayson Soto MD Lower Extremity Ultrasound 11/09/16 0000 Signed Impressions: Service Date/Time: Wednesday, November 09, 2016 14:13 - CONCLUSION: Normal examination. Jayson Manning MD Liver Ultrasound 11/09/16 0000 Signed Impressions: Service Date/Time: Wednesday, November 09, 2016 13:58 - CONCLUSION: Sono dense liver without duct dilatation. 4 mm common duct. Ward Kim MD FACR Chest CT 11/06/16 0000 Signed Impressions: Service Date/Time: Sunday, November 06, 2016 11:24 - CONCLUSION: 1. Dense bilateral posterior lower lobe airspace consolidation consistent with aspiration versus less likely pneumonia. 2. Linear consolidation in the right middle lobe consistent with atelectasis versus aspiration. 3. Trace left and small right pleural effusions. 4. Support lines and tubes in good position. 5. Prominent coronary artery calcifications. Nico Vaughan MD Head CT 11/05/16 0000 Signed Impressions: Service Date/Time: Saturday, November 05, 2016 21:43 - CONCLUSION: 1. No acute intracranial abnormalities. Pansinus fluid opacification. Cristofer De Santiago MD Carotid Artery Ultrasound 10/25/16 0000 Signed Impressions: Service Date/Time: September 08:27 - CONCLUSION: Mild to moderate plaque in both carotid systems with less than 40%% diameter stenosis by velocity criteria. Jhonathan Dietz MD CT Angiography 10/25/16 0000 Signed Impressions: Service Date/Time: September 06:12 - CONCLUSION: 1. Negative for pulmonary embolism. 2. There is a fairly large area of masslike consolidation in the medial right lung involving posterior segment right upper lobe and medial aspect of right lower lobe. There is associated right hilar and mediastinal adenopathy measuring up to 2.1 cm. Differential diagnosis includes pneumonia or underlying lung neoplasm. Close followup imaging recommended after treatment for pneumonia, to assess for underlying mass. Cristofer De Santiago MD . Procedures * 11/30/16 - PEG tube placement * 11/27/16 - tracheostomy * 11/23/16 - right chest tube placement. * 11/10/16 - ETT replaced. * 11/04/16 - arterial line placement. * 10/25/16 - Intubation and central line placed. . Assessment and Plan Disease Oriented Problem List: (1) Acute respiratory failure (2) ARDS (adult respiratory distress syndrome) (3) COPD (chronic obstructive pulmonary disease) (4) Obesity hypoventilation syndrome (5) Anoxic encephalopathy (6) Metabolic encephalopathy (7) Atrial flutter (8) Leukocytosis (9) Sepsis (10) Hyperglycemia (11) Morbid obesity (12) Tobacco use (13) Hypertension Symptom Scale: (1) Pain 0-10 Scale: Unable to quantify Comment: On Fentanyl drip. (2) Dyspnea 0-10 Scale: Unable to quantify Comment: on vent to trach. (3) Encephalopathy 0-10 Scale: Unable to quantify Pertinent Non-Medical Issues Psychosocial: notes indicate patient is single. Has one son and one daughter. Was living with his son prior to admission. Spiritual: unknown. Legal: Patient is currently incapacitated, uncertain if he will regain capacity. Patient is single. Has 1 son (Drake Andrews) and 2 daughters ( Ira Mcgovern and Krystyna Palma). According to [place] statutes, health care proxy decision-making would fall to the majority of adult children. Ira, Dorothea wish to particpate. Ethical issues impacting care: no known concerns at this time. . Important Contacts * Ira Mcgovern, daughter/ HCP: [phone] (cell) or [phone] ext. [phone] (work) * Drake Andrews, son/ HCP: [phone] (cell) or [phone] (work) * Krystyna Palma, daughter/ HCP: [phone] * Drake Henry girlfriend: [phone] . . Prognosis Mr. Andrews is an unfortunate 56-year-old male who was admitted with respiratory distress, pneumonia, ARDS with prolonged hospitalization/mechanical ventilation still requiring high FI 02 and PEEP needs, unable to proceed with tracheostomy/ PEG tube given medical instability, high oxygen needs. Overall condition does not appear to be improving. . Code Status: Full Code Plan * Decision Maker: Patient is currently incapacitated, uncertain if he will regain capacity. Patient is single. Has 1 son (Drake Andrews) and 2 daughters ( Ira Mcgovern and Krystyna Palma). According to [place] statutes, health care proxy decision-making would fall to the majority of adult children. IraKrystyna ayala lily Drake wish to particpate. * FULL CODE * Goals remain aggressive. * SYMPTOMS: Pain: potential sources of pain include COPD, intubation, prolonged hospitalization, bedbound status, chest tube, infection, etc. on fentanyl drip, intermittent grimacing during physical exam. Given underlying encephalopathy no new pain medication recommendations at this time. Dyspnea: remains on prolonged mechanical ventilation s/p trach. Encephalopathy: patient with possible anoxic encephalopathy. No new medication recommendations at this time. * Palliative care will continue to follow throughout hospital course to assist with symptom management and clarification of goals as needed. . Attestation To help prompt me to consider important information that might be impacting today's encounter and assessment, information from prior notes written by myself or my colleagues may have been "brought forward" into today's note. My signature on this note, however, is an attestation that I personally performed the exam, history, and/or decision-making noted today, and, unless otherwise indicated, the interactions with patient, family, and staff as well as the review of records all occurred today. I also attest that the listed assessment and stated plan reflect my best clinical judgment today based on the combination of historical information, prior notes, and today's exam/ interactions. When time spent is documented, it refers only to time spent today by the signer, or if indicated, combined time spent today by collaborating physician/nurse practitioner. Sandra Mccabe Nov 30, 2016 17:07
--- NOTE | 2016-11-30 20:39 | HHI.IDPN ---
Subjective Subjective Remarks Issues with hypertenstion today remains on vent , FiO2 40% + low grade fevers Stool up to 500 cc Antibiotics zosyn Allergies: Coded Allergies: No Known Allergies (Unverified , 10/25/16) Objective . Vital Signs Date Time Temp Pulse Resp B/P (MAP) Pulse Ox O2 Delivery O2 Flow Rate FiO2 11/30/16 19:31 108 11/30/16 19:25 96 11/30/16 19:21 96 11/30/16 19:15 95 11/30/16 19:10 94 11/30/16 19:06 94 11/30/16 19:00 73 11/30/16 18:55 76 11/30/16 18:50 78 11/30/16 18:45 84 11/30/16 18:40 96 11/30/16 18:36 96 11/30/16 18:30 97 11/30/16 18:25 125 11/30/16 18:20 127 11/30/16 18:15 122 11/30/16 18:10 129 11/30/16 18:05 134 11/30/16 18:00 144 11/30/16 17:35 144 11/30/16 17:30 144 16 121/72 (88) 92 11/30/16 17:30 144 11/30/16 17:25 144 11/30/16 17:25 144 21 121/75 (90) 92 11/30/16 17:20 145 11/30/16 17:20 145 15 104/63 (77) 93 11/30/16 17:16 144 11/30/16 17:16 144 17 110/70 (83) 93 11/30/16 17:10 144 21 122/74 (90) 93 11/30/16 17:10 144 11/30/16 17:05 144 11/30/16 17:05 144 20 118/73 (88) 93 11/30/16 17:00 144 11/30/16 17:00 144 19 122/73 (89) 93 11/30/16 16:55 144 11/30/16 16:55 144 19 135/78 (97) 93 11/30/16 16:50 144 19 153/85 (107) 93 11/30/16 16:50 144 11/30/16 16:45 144 11/30/16 16:45 144 16 148/85 (106) 93 11/30/16 16:40 144 16 155/91 (112) 93 11/30/16 16:40 144 16 155/91 (112) 93 11/30/16 16:40 144 11/30/16 16:35 144 15 157/93 (114) 94 11/30/16 16:35 144 15 157/93 (114) 94 11/30/16 16:35 144 11/30/16 16:30 144 18 166/95 (118) 93 11/30/16 16:30 144 18 166/95 (118) 93 11/30/16 16:30 144 11/30/16 16:25 144 11/30/16 16:25 144 14 169/102 (124) 93 11/30/16 16:25 144 14 169/102 (124) 93 11/30/16 16:20 144 15 159/91 (113) 93 11/30/16 16:20 144 15 159/91 (113) 93 11/30/16 16:20 144 11/30/16 16:15 144 14 176/93 (120) 93 11/30/16 16:15 144 14 176/93 (120) 93 11/30/16 16:15 144 11/30/16 16:10 144 11/30/16 16:10 144 13 166/93 (117) 93 11/30/16 16:10 144 13 166/93 (117) 93 11/30/16 16:05 144 21 164/91 (115) 94 11/30/16 16:05 144 21 164/91 (115) 94 11/30/16 16:05 144 11/30/16 16:00 144 23 162/86 (111) 93 11/30/16 16:00 93 40 11/30/16 16:00 144 23 162/86 (111) 93 11/30/16 16:00 40 11/30/16 16:00 144 11/30/16 15:56 144 16 160/91 (114) 93 11/30/16 15:45 145 15 172/85 (114) 94 11/30/16 15:40 145 13 169/88 (115) 94 11/30/16 15:35 145 15 169/93 (118) 93 11/30/16 15:30 145 16 165/98 (120) 94 11/30/16 15:25 145 16 158/96 (116) 93 11/30/16 15:20 146 14 156/89 (111) 93 11/30/16 15:15 146 14 155/83 (107) 93 11/30/16 15:10 146 12 148/81 (103) 93 11/30/16 15:05 146 12 144/81 (102) 93 11/30/16 15:00 146 13 136/81 (99) 93 11/30/16 14:50 146 13 163/94 (117) 93 11/30/16 14:50 146 11/30/16 14:45 146 15 162/90 (114) 93 11/30/16 14:45 146 11/30/16 14:40 146 11/30/16 14:40 146 14 161/96 (117) 93 11/30/16 14:35 146 11/30/16 14:35 146 13 164/100 (121) 93 11/30/16 14:30 146 12 157/91 (113) 93 11/30/16 14:30 146 11/30/16 14:25 146 13 154/92 (112) 93 11/30/16 14:25 146 11/30/16 14:20 146 13 154/94 (114) 93 11/30/16 14:20 146 11/30/16 14:15 146 13 154/92 (112) 93 11/30/16 14:15 146 11/30/16 14:10 146 13 154/84 (107) 92 11/30/16 14:10 146 11/30/16 14:05 146 11/30/16 14:05 146 13 148/86 (106) 92 11/30/16 14:00 146 14 140/81 (100) 92 11/30/16 14:00 146 11/30/16 13:55 146 13 134/81 (98) 93 11/30/16 13:55 146 11/30/16 13:51 145 139/82 11/30/16 13:50 145 14 139/82 (101) 92 11/30/16 13:50 145 11/30/16 13:49 145 11/30/16 13:48 145 11/30/16 13:48 145 14 129/80 (96) 93 11/30/16 13:39 95 100 11/30/16 12:28 144 11/30/16 12:28 144 16 198/103 (134) 98 11/30/16 12:24 145 11/30/16 12:24 145 15 195/105 (135) 97 11/30/16 12:20 146 15 186/103 (130) 95 11/30/16 12:20 146 11/30/16 12:18 146 11/30/16 12:18 146 16 177/96 (123) 95 11/30/16 12:17 146 11/30/16 12:17 146 17 175/108 (130) 95 11/30/16 12:00 40 11/30/16 12:00 145 11/30/16 12:00 145 17 160/102 (121) 95 11/30/16 11:55 145 13 159/100 (119) 95 11/30/16 11:55 145 11/30/16 11:50 145 16 163/99 (120) 95 11/30/16 11:50 145 11/30/16 11:45 145 15 163/95 (117) 95 11/30/16 11:45 145 11/30/16 11:40 145 11/30/16 11:40 145 12 167/96 (119) 95 11/30/16 11:39 145 11/30/16 11:39 145 13 159/99 (119) 95 11/30/16 11:38 145 11/30/16 11:14 145 11/30/16 11:14 145 16 165/106 (125) 96 11/30/16 11:14 96 40 11/30/16 10:32 144 11/30/16 10:32 144 16 177/113 (134) 96 11/30/16 10:22 144 11/30/16 10:22 144 15 175/112 (133) 96 11/30/16 10:13 145 11/30/16 10:13 145 17 190/113 (138) 96 11/30/16 10:08 144 17 194/122 (146) 96 11/30/16 10:08 144 11/30/16 10:05 144 15 199/113 (141) 95 11/30/16 10:05 144 11/30/16 10:01 144 18 206/117 (146) 97 11/30/16 10:01 144 11/30/16 10:00 144 11/30/16 10:00 144 17 184/120 (141) 97 11/30/16 09:42 143 11/30/16 09:42 143 17 187/112 (137) 99 11/30/16 09:38 144 16 194/118 (143) 98 11/30/16 09:38 144 11/30/16 09:35 143 17 191/119 (143) 99 11/30/16 09:35 143 11/30/16 09:30 138 17 191/115 (140) 99 11/30/16 09:30 138 11/30/16 09:01 137 16 185/105 (131) 100 11/30/16 09:01 137 11/30/16 08:30 141 16 97/63 (74) 100 11/30/16 08:30 141 11/30/16 08:00 141 16 95/55 (68) 98 11/30/16 08:00 40 11/30/16 08:00 141 11/30/16 07:28 96 40 11/30/16 06:00 116 11/30/16 04:12 100 40 11/30/16 04:00 40 11/30/16 04:00 97.9 137 17 153/114 (127) 98 11/30/16 04:00 114 11/30/16 02:00 141 11/30/16 01:04 100 40 11/30/16 00:00 132 11/30/16 00:00 40 11/30/16 00:00 99.1 127 16 113/66 (82) 98 11/29/16 22:08 100 40 11/29/16 22:00 95 11/30/16 11/30/16 12/01/16 15:00 23:00 07:00 Intake Total 450 ml 320 ml Output Total 1900 ml Balance 450 ml -1580 ml IV Total 450 ml 200 ml Other 120 ml Output Urine Total 1400 ml Stool Total 500 ml . Laboratory Tests Test 11/29/16 05:30 11/30/16 04:10 White Blood Count 15.1 TH/MM3 15.3 TH/MM3 Red Blood Count 3.91 MIL/MM3 4.40 MIL/MM3 Hemoglobin 12.1 GM/DL 13.6 GM/DL Hematocrit 36.5 % 41.2 % Mean Corpuscular Volume 93.4 FL 93.6 FL Mean Corpuscular Hemoglobin 31.0 PG 30.8 PG Mean Corpuscular Hemoglobin Concent 33.1 % 32.9 % Red Cell Distribution Width 14.4 % 14.8 % Platelet Count 224 TH/MM3 261 TH/MM3 Mean Platelet Volume 6.9 FL 7.6 FL Neutrophils (%) (Auto) 90.5 % 89.2 % Lymphocytes (%) (Auto) 5.3 % 6.6 % Monocytes (%) (Auto) 3.6 % 3.8 % Eosinophils (%) (Auto) 0.2 % 0.2 % Basophils (%) (Auto) 0.4 % 0.2 % Neutrophils # (Auto) 13.7 TH/MM3 13.7 TH/MM3 Lymphocytes # (Auto) 0.8 TH/MM3 1.0 TH/MM3 Monocytes # (Auto) 0.5 TH/MM3 0.6 TH/MM3 Eosinophils # (Auto) 0.0 TH/MM3 0.0 TH/MM3 Basophils # (Auto) 0.1 TH/MM3 0.0 TH/MM3 CBC Comment AUTO DIFF AUTO DIFF Differential Total Cells Counted 100 100 Neutrophils % (Manual) 69 % 67 % Band Neutrophils % 15 % 17 % Lymphocytes % 5 % 2 % Monocytes % 2 % 3 % Neutrophils # (Manual) 14.0 TH/MM3 14.5 TH/MM3 Metamyelocytes 1 % 4 % Myelocytes 8 % 7 % Differential Comment FINAL DIFF MANUAL FINAL DIFF MANUAL Atypical Lymphocytes % % Toxic Granulation 1+ Platelet Estimate NORMAL NORMAL Platelet Morphology Comment NORMAL NORMAL Red Cell Morphology Comment NORMAL Laboratory Tests Test 11/28/16 22:00 11/29/16 05:30 11/29/16 16:30 11/30/16 04:10 Potassium Level 3.9 MEQ/L 3.0 MEQ/L 4.3 MEQ/L 4.0 MEQ/L Blood Urea Nitrogen 9 MG/DL 11 MG/DL Creatinine LESS THAN 0.15 MG/DL 0.16 MG/DL Random Glucose 120 MG/DL 113 MG/DL Total Protein 5.4 GM/DL Calcium Level 6.6 MG/DL 8.1 MG/DL Sodium Level 145 MEQ/L 135 MEQ/L Chloride Level 101 MEQ/L 97 MEQ/L Carbon Dioxide Level 28.2 MEQ/L 29.6 MEQ/L Anion Gap 16 MEQ/L 8 MEQ/L Estimat Glomerular Filtration Rate 690 ML/MIN 641 ML/MIN Protein Corrected Calcium 7.4 MG/DL Phosphorus Level 2.3 MG/DL 2.4 MG/DL Magnesium Level 1.6 MG/DL 1.8 MG/DL Imaging Last Impressions Gastrostomy Tube Placement 11/30/16 Signed Impressions: Service Date/Time: Wednesday, November 30, 2016 12:22 - CONCLUSION: Uncomplicated gastrostomy tube placement as above. Jorge Jolly MD Chest X-Ray 11/30/16 Signed Impressions: Service Date/Time: Wednesday, November 30, 2016 03:55 - CONCLUSION: Progression in the bilateral pleural effusions and bibasilar pulmonary infiltrates. Fito Mar Jr., MD Abdomen X-Ray 11/30/16 Signed Impressions: Service Date/Time: Wednesday, November 30, 2016 09:43 - CONCLUSION: 1. No definite nasogastric catheter is identified. Repeat examination centered higher in the thorax may be performed for more definitive evaluation. Consider repositioning the nasogastric catheter prior to repeat imaging. Nico Vaughan MD Brain MRI 11/26/16 Signed Impressions: Service Date/Time: Saturday, November 26, 2016 19:52 - CONCLUSION: 1. Small focal signal abnormality in the superior medial left frontal lobe. This is nonspecific. This could be the sequela from prior insult such as a contusion or small infarct. An acute infarct is not seen. A small underlying lesion could have a similar appearance. One could perform a contrast-enhanced study to determine if there is any enhancement associated with this region. 2. There are a few scattered minimal punctate areas of demyelination seen not expected for the patient's age. 3. Sinus disease. Jayson Soto MD Lower Extremity Ultrasound 11/09/16 Signed Impressions: Service Date/Time: Wednesday, November 09, 2016 14:13 - CONCLUSION: Normal examination. Jayson Manning MD Liver Ultrasound 11/09/16 Signed Impressions: Service Date/Time: Wednesday, November 09, 2016 13:58 - CONCLUSION: Sono dense liver without duct dilatation. 4 mm common duct. Ward Kim MD FACR Chest CT 11/06/16 Signed Impressions: Service Date/Time: Sunday, November 06, 2016 11:24 - CONCLUSION: 1. Dense bilateral posterior lower lobe airspace consolidation consistent with aspiration versus less likely pneumonia. 2. Linear consolidation in the right middle lobe consistent with atelectasis versus aspiration. 3. Trace left and small right pleural effusions. 4. Support lines and tubes in good position. 5. Prominent coronary artery calcifications. Nico Vaughan MD Head CT 11/05/16 0000 Signed Impressions: Service Date/Time: Saturday, November 05, 2016 21:43 - CONCLUSION: 1. No acute intracranial abnormalities. Pansinus fluid opacification. Cristofer De Santiago MD Carotid Artery Ultrasound 10/25/16 0000 Signed Impressions: Service Date/Time: , October 25, 2016 08:27 - CONCLUSION: Mild to moderate plaque in both carotid systems with less than 40%% diameter stenosis by velocity criteria. Jhonathan Dietz MD CT Angiography 10/25/16 0000 Signed Impressions: Service Date/Time: , October 25, 2016 06:12 - CONCLUSION: 1. Negative for pulmonary embolism. 2. There is a fairly large area of masslike consolidation in the medial right lung involving posterior segment right upper lobe and medial aspect of right lower lobe. There is associated right hilar and mediastinal adenopathy measuring up to 2.1 cm. Differential diagnosis includes pneumonia or underlying lung neoplasm. Close followup imaging recommended after treatment for pneumonia, to assess for underlying mass. Cristofer De Santiago MD Physical Exam CONSTITUTIONAL/GENERAL: This is a morbidly obese patient, sedated int'd on vent TUBES/LINES/DRAINS: SKIN: No jaundice, rashes, or lesions. Skin temperature appropriate. Not diaphoretic. NECK: trach in place CARDIOVASCULAR: Afib on the monitor tachycardia without murmurs, gallops, or rubs. No JVD. Peripheral pulses symmetric. RESPIRATORY/CHEST: Symmetric, unlabored respirations. coarse BS CT R GASTROINTESTINAL: Abdomen soft, not tender moderately distended. No hepato- splenomegaly, or palpable masses. No guarding. Bowel sounds present. Dign[place]illd in pl,[place] with liquid brown stool GENITOURINARY: Without palpable bladder distension. Santiago catheter in place with somewhat cloudy urine MUSCULOSKELETAL: Extremities without clubbing, cyanosis, Edema 3-4+ generalysed, massive edema in dependent areas NEUROLOGICAL: unresponsive PSYCHIATRIC: unable to assess Assessment & Plan Remarks PNA, Kleb pneumo - failrly sensitive - PSAE , Stenotrophomonas and Kleb in the sputum ? unclear is Steno malt is a coloniser vs a true pathogen ARDS Acute VDRF, difficulty wean - sp trach R sided PTX sp CT Abx associated diarrhea, C.diff negative Abnormal UA, CANDIDURIA Persiastent leukocytosis and bandemia Persistent fever, now low grade Leukocytosis - going down, still prominent bandemia Abx associated diarrhea Pt remains critically ill and unstable with overall poor prognosis, pallliative care is involved REC's: cont zosyn, will add Bactrim -WILL avoid Levaquine 2/2 amiodarone use rechk sputum chk C.Mariana Red MD Nov 30, 2016 20:39
[2016-11-30] MEDS: AMIODARONE 200 MG TAB OG-TUBE SCH (21:38)
[2016-11-30] MEDS: SULFAMETHOXAZOLE-TRIMETHOPRIM DS 800-160 MG TAB PO SCH (21:39)
[2016-12-01] VITALS (43 sets, daily range): BP systolic 104–184; BP diastolic 52–113; PULSE 85–140; RESP 11–32; TEMP 98.7–100.2; O2SAT 94–99
[2016-12-01] MEDS: DILTIAZEM HCL 90 MG TAB PO SCH ×4 (01:27→17:06)
[2016-12-01] MEDS: METOPROLOL TARTRATE 50 MG TAB PO SCH ×4 (01:27→17:06)
[2016-12-01] MEDS: SODIUM CHLORIDE 0.9% FLUSH 10 ML FLUSH SCH ×3 (01:27→20:50)
[2016-12-01] MEDS: PIPERACIL-TAZO 4.5 GM PREMIX 100 ML IV SCH ×4 (01:27→16:31)
[2016-12-01] MEDS: RESP: ALBUTEROL 2.5 MG/IPRATROPIUM 0.5 MG NEB (SCH) NEB ×6 (03:47→23:05)
[2016-12-01] MEDS: INSULIN NovoLIN REGULAR SUPPLEMENTAL SCALE SQ SCH ×6 (04:00→20:00)
[2016-12-01 05:16] LABS: AUTOMATED NEUTROPHIL # 14.7 TH/MM3 (1.8-7.7); BASOPHIL # 0.1 TH/MM3 (0-0.2); BASOPHIL % 0.4 % (0.0-2.0); EOSINOPHIL % 0.1 % (0.0-4.0); HEMATOCRIT 36.8 % (39.0-51.0); LYMPH % 3.5 % (9.0-44.0); LYMPHOCYTE # 0.6 TH/MM3 (1.0-4.8); MEAN CELL VOLUME 94.2 FL (80.0-100.0); MEAN CORPUSCULAR HEMOGLOBIN 32.3 PG (27.0-34.0); MEAN CORPUSCULAR HGB CONC 34.3 % (32.0-36.0); MONO % 3.9 % (0.0-8.0); NEUT % 92.1 % (16.0-70.0); PLATELET COUNT 266 TH/MM3 (150-450); RED BLOOD COUNT 3.91 MIL/MM3 (4.50-5.90); RED CELL DISTRIBUTION WIDTH 14.6 % (11.6-17.2); WHITE BLOOD COUNT 15.9 TH/MM3 (4.0-11.0)
[2016-12-01 05:19] LABS: APTT (PATIENT) 25.9 SEC (24.3-30.1)
[2016-12-01 05:31] LABS: ANION GAP 8 MEQ/L (5-15); BICARBONATE 27.6 MEQ/L (21.0-32.0); BLOOD UREA NITROGEN 11 MG/DL (7-18); CHLORIDE 97 MEQ/L (98-107); GLOMERULAR FILTRATION RATE 690 ML/MIN (>89); MAGNESIUM 1.8 MG/DL (1.5-2.5); POTASSIUM 3.7 MEQ/L (3.5-5.1); SODIUM (NA) 133 MEQ/L (136-145)
[2016-12-01 05:33] LABS: HEMO FLAGS AUTO DIFF
[2016-12-01 05:45] LABS: ALKALINE PHOSPHATASE 66 U/L (45-117); DIGOXIN 0.5 NG/ML (0.8-2.0); TOTAL BILIRUBIN ADULT 0.8 MG/DL (0.2-1.0)
[2016-12-01 06:30] LABS: ALT (GPT) 67 U/L (12-78); AST (GOT) 18 U/L (15-37); CALCIUM-PROTEIN CORRECTED 7.5 MG/DL (8.5-10.1)
[2016-12-01] MEDS: cloNIDine HCL 0.2 MG TAB OG-TUBE SCH ×3 (06:30→20:49)
[2016-12-01] MEDS: SULFAMETHOXAZOLE-TRIMETHOPRIM DS 800-160 MG TAB PO SCH ×3 (06:31→20:50)
[2016-12-01] MEDS: fentaNYL DRIP 250 ML IV PRN ×2 (06:37→15:08)
[2016-12-01] MEDS: RESP: BUDESONIDE 0.5 MG/2 ML NEB NEB SCH ×2 (07:29→20:03)
[2016-12-01] MEDS: CHLORHEXIDINE 0.12% (ORAL KIT) 15 ML CUP MT SCH ×2 (08:10→20:49)
[2016-12-01] MEDS: methylPREDNISolone SOD SUCC 40 MG/1 ML VIAL IV SCH (08:11)
[2016-12-01] MEDS: ARTIFICIAL TEARS OPTH OINT 3.5 APPLIC/3.5 GM TUBO EACH EYE SCH ×2 (08:11→20:50)
[2016-12-01] MEDS: SODIUM CHLORIDE 0.9% FLUSH 10 ML FLUSH IVF SCH (08:12)
[2016-12-01] MEDS: SODIUM CHLORIDE 0.9% FLUSH 10 ML FLUSH IV FLUSH SCH (08:12)
[2016-12-01] MEDS: SENNOSIDES 8.6 MG TAB PO PRN (08:13)
[2016-12-01] MEDS: AMIODARONE 200 MG TAB OG-TUBE SCH ×2 (08:13→20:49)
[2016-12-01] MEDS: FAMOTIDINE 20 MG TAB NG SCH ×2 (08:13→20:50)
[2016-12-01] MEDS: DIGOXIN 0.125 MG TAB PO SCH (08:13)
[2016-12-01] MEDS: PROPOFOL 1000 MG/100 ML IV PRN ×3 (08:14→18:47)
[2016-12-01] MEDS: HEPARIN 25,000 UNITS-D5W 250 ML - PREMIX IV SCH ×2 (09:40→22:06)
[2016-12-01 09:50] LABS: BANDS 15 % (0-6); CORRECTED NUCLEATED RBC 3 /100 WBC (0-0); METAMYELOCYTES 4 % (0-1); MYELOCYTES 1 % (0-0); NEUTROPHIL # MANUAL DIFF 14.9 TH/MM3 (1.8-7.7); POLYS (SEG NEUTROPHILS) 74 % (16-70); WBC DIFF SAMPLE 100
[2016-12-01 09:54] LABS: TOXIC GRANULATION 1+ (NORMAL)
[2016-12-01 09:55] LABS: PLATELET ESTIMATE SMEAR NORMAL (NORMAL); PLATELET MORPHOLOGY NORMAL (NORMAL)
[2016-12-01 09:56] LABS: SCAN/DIFF FINAL DIFF MANUAL; TEARDROP RBCS 1+ (NORMAL)
--- NOTE | 2016-12-01 10:42 | HHI.IDPN ---
Subjective Subjective Remarks cont to have low grade fevers remains on vent , FiO2 40% Stool up to 500 cc UOP is good Antibiotics zosyn Allergies: Coded Allergies: No Known Allergies (Unverified , 10/25/16) Objective . Vital Signs Date Time Temp Pulse Resp B/P (MAP) Pulse Ox O2 Delivery O2 Flow Rate FiO2 12/01/16 07:30 99 40 12/01/16 06:00 110 12/01/16 04:16 95 40 12/01/16 04:00 40 12/01/16 04:00 99.0 125 18 104/56 (72) 95 12/01/16 04:00 107 12/01/16 02:00 85 12/01/16 02:00 40 12/01/16 01:09 99 40 12/01/16 00:00 85 12/01/16 00:00 40 12/01/16 00:00 98.9 125 18 155/109 (124) 95 11/30/16 22:08 96 40 11/30/16 22:00 112 11/30/16 20:00 98.6 98 18 111/56 (74) 95 11/30/16 20:00 97 11/30/16 20:00 40 11/30/16 19:33 97 40 11/30/16 19:31 108 11/30/16 19:30 98 111/56 11/30/16 19:25 96 11/30/16 19:21 96 11/30/16 19:15 95 11/30/16 19:10 94 11/30/16 19:06 94 11/30/16 19:00 73 11/30/16 18:55 76 11/30/16 18:50 78 11/30/16 18:45 84 11/30/16 18:40 96 11/30/16 18:36 96 11/30/16 18:30 97 11/30/16 18:25 125 11/30/16 18:20 127 11/30/16 18:15 122 11/30/16 18:10 129 11/30/16 18:05 134 11/30/16 18:00 144 11/30/16 17:35 144 11/30/16 17:30 144 16 121/72 (88) 92 11/30/16 17:30 144 11/30/16 17:25 144 11/30/16 17:25 144 21 121/75 (90) 92 11/30/16 17:20 145 11/30/16 17:20 145 15 104/63 (77) 93 11/30/16 17:16 144 11/30/16 17:16 144 17 110/70 (83) 93 11/30/16 17:10 144 21 122/74 (90) 93 11/30/16 17:10 144 11/30/16 17:05 144 11/30/16 17:05 144 20 118/73 (88) 93 11/30/16 17:00 144 11/30/16 17:00 144 19 122/73 (89) 93 11/30/16 16:55 144 11/30/16 16:55 144 19 135/78 (97) 93 11/30/16 16:50 144 19 153/85 (107) 93 11/30/16 16:50 144 11/30/16 16:45 144 11/30/16 16:45 144 16 148/85 (106) 93 11/30/16 16:40 144 16 155/91 (112) 93 11/30/16 16:40 144 16 155/91 (112) 93 11/30/16 16:40 144 11/30/16 16:35 144 15 157/93 (114) 94 11/30/16 16:35 144 15 157/93 (114) 94 11/30/16 16:35 144 11/30/16 16:30 144 18 166/95 (118) 93 11/30/16 16:30 144 18 166/95 (118) 93 11/30/16 16:30 144 11/30/16 16:25 144 11/30/16 16:25 144 14 169/102 (124) 93 11/30/16 16:25 144 14 169/102 (124) 93 11/30/16 16:20 144 15 159/91 (113) 93 11/30/16 16:20 144 15 159/91 (113) 93 11/30/16 16:20 144 11/30/16 16:15 144 14 176/93 (120) 93 11/30/16 16:15 144 14 176/93 (120) 93 11/30/16 16:15 144 11/30/16 16:10 144 11/30/16 16:10 144 13 166/93 (117) 93 11/30/16 16:10 144 13 166/93 (117) 93 11/30/16 16:05 144 21 164/91 (115) 94 11/30/16 16:05 144 21 164/91 (115) 94 11/30/16 16:05 144 11/30/16 16:00 144 23 162/86 (111) 93 11/30/16 16:00 93 40 11/30/16 16:00 144 23 162/86 (111) 93 11/30/16 16:00 40 11/30/16 16:00 144 11/30/16 15:56 144 16 160/91 (114) 93 11/30/16 15:45 145 15 172/85 (114) 94 11/30/16 15:40 145 13 169/88 (115) 94 11/30/16 15:35 145 15 169/93 (118) 93 11/30/16 15:30 145 16 165/98 (120) 94 11/30/16 15:25 145 16 158/96 (116) 93 11/30/16 15:20 146 14 156/89 (111) 93 11/30/16 15:15 146 14 155/83 (107) 93 11/30/16 15:10 146 12 148/81 (103) 93 11/30/16 15:05 146 12 144/81 (102) 93 11/30/16 15:00 146 13 136/81 (99) 93 11/30/16 14:50 146 13 163/94 (117) 93 11/30/16 14:50 146 11/30/16 14:45 146 15 162/90 (114) 93 11/30/16 14:45 146 11/30/16 14:40 146 11/30/16 14:40 146 14 161/96 (117) 93 11/30/16 14:35 146 11/30/16 14:35 146 13 164/100 (121) 93 11/30/16 14:30 146 12 157/91 (113) 93 11/30/16 14:30 146 11/30/16 14:25 146 13 154/92 (112) 93 11/30/16 14:25 146 11/30/16 14:20 146 13 154/94 (114) 93 11/30/16 14:20 146 11/30/16 14:15 146 13 154/92 (112) 93 11/30/16 14:15 146 11/30/16 14:10 146 13 154/84 (107) 92 11/30/16 14:10 146 11/30/16 14:05 146 11/30/16 14:05 146 13 148/86 (106) 92 11/30/16 14:00 146 14 140/81 (100) 92 11/30/16 14:00 146 11/30/16 13:55 146 13 134/81 (98) 93 11/30/16 13:55 146 11/30/16 13:51 145 139/82 11/30/16 13:50 145 14 139/82 (101) 92 11/30/16 13:50 145 11/30/16 13:49 145 11/30/16 13:48 145 11/30/16 13:48 145 14 129/80 (96) 93 11/30/16 13:39 95 100 11/30/16 12:28 144 11/30/16 12:28 144 16 198/103 (134) 98 11/30/16 12:24 145 11/30/16 12:24 145 15 195/105 (135) 97 11/30/16 12:20 146 15 186/103 (130) 95 11/30/16 12:20 146 11/30/16 12:18 146 11/30/16 12:18 146 16 177/96 (123) 95 11/30/16 12:17 146 11/30/16 12:17 146 17 175/108 (130) 95 11/30/16 12:00 40 11/30/16 12:00 145 11/30/16 12:00 145 17 160/102 (121) 95 11/30/16 11:55 145 13 159/100 (119) 95 11/30/16 11:55 145 11/30/16 11:50 145 16 163/99 (120) 95 11/30/16 11:50 145 11/30/16 11:45 145 15 163/95 (117) 95 11/30/16 11:45 145 11/30/16 11:40 145 11/30/16 11:40 145 12 167/96 (119) 95 11/30/16 11:39 145 11/30/16 11:39 145 13 159/99 (119) 95 10/6/17 11:38 145 11/30/16 11:14 145 11/30/16 11:14 145 16 165/106 (125) 96 11/30/16 11:14 96 40 12/01/16 12/01/16 12/02/16 14:59 22:59 06:59 Intake Total 200 ml Balance 200 ml IV Total 200 ml . Laboratory Tests Test 11/30/16 04:10 12/01/16 04:40 White Blood Count 15.3 TH/MM3 15.9 TH/MM3 Red Blood Count 4.40 MIL/MM3 3.91 MIL/MM3 Hemoglobin 13.6 GM/DL 12.6 GM/DL Hematocrit 41.2 % 36.8 % Mean Corpuscular Volume 93.6 FL 94.2 FL Mean Corpuscular Hemoglobin 30.8 PG 32.3 PG Mean Corpuscular Hemoglobin Concent 32.9 % 34.3 % Red Cell Distribution Width 14.8 % 14.6 % Platelet Count 261 TH/MM3 266 TH/MM3 Mean Platelet Volume 7.6 FL 7.1 FL Neutrophils (%) (Auto) 89.2 % 92.1 % Lymphocytes (%) (Auto) 6.6 % 3.5 % Monocytes (%) (Auto) 3.8 % 3.9 % Eosinophils (%) (Auto) 0.2 % 0.1 % Basophils (%) (Auto) 0.2 % 0.4 % Neutrophils # (Auto) 13.7 TH/MM3 14.7 TH/MM3 Lymphocytes # (Auto) 1.0 TH/MM3 0.6 TH/MM3 Monocytes # (Auto) 0.6 TH/MM3 0.6 TH/MM3 Eosinophils # (Auto) 0.0 TH/MM3 0.0 TH/MM3 Basophils # (Auto) 0.0 TH/MM3 0.1 TH/MM3 CBC Comment AUTO DIFF AUTO DIFF Differential Total Cells Counted 100 100 Neutrophils % (Manual) 67 % 74 % Band Neutrophils % 17 % 15 % Lymphocytes % 2 % 4 % Monocytes % 3 % 2 % Neutrophils # (Manual) 14.5 TH/MM3 14.9 TH/MM3 Metamyelocytes 4 % 4 % Myelocytes 7 % 1 % Differential Comment FINAL DIFF MANUAL FINAL DIFF MANUAL Atypical Lymphocytes % Platelet Estimate NORMAL NORMAL Platelet Morphology Comment NORMAL NORMAL Red Cell Morphology Comment NORMAL Nucleated Red Blood Cells 3 /100 WBC Toxic Granulation 1+ Tear Drop Cells 1+ Laboratory Tests Test 11/29/16 16:30 11/30/16 04:10 12/01/16 04:40 Potassium Level 4.3 MEQ/L 4.0 MEQ/L 3.7 MEQ/L Blood Urea Nitrogen 11 MG/DL 11 MG/DL Creatinine 0.16 MG/DL LESS THAN 0.15 MG/DL Random Glucose 113 MG/DL 126 MG/DL Calcium Level 8.1 MG/DL 6.5 MG/DL Phosphorus Level 2.4 MG/DL 2.0 MG/DL Magnesium Level 1.8 MG/DL 1.8 MG/DL Sodium Level 135 MEQ/L 133 MEQ/L Chloride Level 97 MEQ/L 97 MEQ/L Carbon Dioxide Level 29.6 MEQ/L 27.6 MEQ/L Anion Gap 8 MEQ/L 8 MEQ/L Estimat Glomerular Filtration Rate 641 ML/MIN 690 ML/MIN Total Protein 5.0 GM/DL Albumin 1.7 GM/DL Alkaline Phosphatase 66 U/L Aspartate Amino Transf (AST/SGOT) 18 U/L Alanine Aminotransferase (ALT/SGPT) 67 U/L Total Bilirubin 0.8 MG/DL Protein Corrected Calcium 7.5 MG/DL Imaging Last Impressions Gastrostomy Tube Placement 11/30/16 Signed Impressions: Service Date/Time: Wednesday, November 30, 2016 12:22 - CONCLUSION: Uncomplicated gastrostomy tube placement as above. Jorge Jolly MD Chest X-Ray 11/30/16 Signed Impressions: Service Date/Time: Wednesday, November 30, 2016 03:55 - CONCLUSION: Progression in the bilateral pleural effusions and bibasilar pulmonary infiltrates. Fito Mar Jr., MD Abdomen X-Ray 11/30/16 0000 Signed Impressions: Service Date/Time: Wednesday, November 30, 2016 09:43 - CONCLUSION: 1. No definite nasogastric catheter is identified. Repeat examination centered higher in the thorax may be performed for more definitive evaluation. Consider repositioning the nasogastric catheter prior to repeat imaging. Nico Vaughan MD Brain MRI 11/26/16 0000 Signed Impressions: Service Date/Time: Saturday, November 26, 2016 19:52 - CONCLUSION: 1. Small focal signal abnormality in the superior medial left frontal lobe. This is nonspecific. This could be the sequela from prior insult such as a contusion or small infarct. An acute infarct is not seen. A small underlying lesion could have a similar appearance. One could perform a contrast-enhanced study to determine if there is any enhancement associated with this region. 2. There are a few scattered minimal punctate areas of demyelination seen not expected for the patient's age. 3. Sinus disease. Jayson Soto MD Lower Extremity Ultrasound 11/09/16 Signed Impressions: Service Date/Time: Wednesday, November 09, 2016 14:13 - CONCLUSION: Normal examination. Jayson Manning MD Liver Ultrasound 11/09/16 0000 Signed Impressions: Service Date/Time: Wednesday, November 09, 2016 13:58 - CONCLUSION: Sono dense liver without duct dilatation. 4 mm common duct. Ward Kim MD FACR Chest CT 11/06/16 Signed Impressions: Service Date/Time: Sunday, November 06, 2016 11:24 - CONCLUSION: 1. Dense bilateral posterior lower lobe airspace consolidation consistent with aspiration versus less likely pneumonia. 2. Linear consolidation in the right middle lobe consistent with atelectasis versus aspiration. 3. Trace left and small right pleural effusions. 4. Support lines and tubes in good position. 5. Prominent coronary artery calcifications. Nico Vaughan MD Head CT 11/05/16 0000 Signed Impressions: Service Date/Time: Saturday, November 05, 2016 21:43 - CONCLUSION: 1. No acute intracranial abnormalities. Pansinus fluid opacification. Cristofer De Santiago MD Carotid Artery Ultrasound 10/25/16 0000 Signed Impressions: Service Date/Time: September 08:27 - CONCLUSION: Mild to moderate plaque in both carotid systems with less than 40%% diameter stenosis by velocity criteria. Jhonathan Dietz MD CT Angiography 10/25/16 0000 Signed Impressions: Service Date/Time: September 06:12 - CONCLUSION: 1. Negative for pulmonary embolism. 2. There is a fairly large area of masslike consolidation in the medial right lung involving posterior segment right upper lobe and medial aspect of right lower lobe. There is associated right hilar and mediastinal adenopathy measuring up to 2.1 cm. Differential diagnosis includes pneumonia or underlying lung neoplasm. Close followup imaging recommended after treatment for pneumonia, to assess for underlying mass. Cristofer De Santiago MD Physical Exam CONSTITUTIONAL/GENERAL: This is a morbidly obese patient, TUBES/LINES/DRAINS: SKIN: No jaundice, rashes, or lesions. Skin temperature appropriate. Not diaphoretic. NECK: trach in place CARDIOVASCULAR: Afib on the monitor tachycardia without murmurs, gallops, or rubs. No JVD. Peripheral pulses symmetric. RESPIRATORY/CHEST: Symmetric, unlabored respirations. coarse BS CT R with serous drainage up to 100 cc/d GASTROINTESTINAL: Abdomen soft, not tender moderately distended. No hepato- splenomegaly, or palpable masses. No guarding. Bowel sounds present. Dignisheilld in pl,[place] with liquid brown stool GENITOURINARY: Without palpable bladder distension. Santiago catheter in place with somewhat cloudy urine MUSCULOSKELETAL: Extremities without clubbing, cyanosis, Edema 3-4+ generalysed, edema appears somewhat better today NEUROLOGICAL: arousable , follows commands PSYCHIATRIC: calm Assessment & Plan Remarks PNA, Kleb pneumo - failrly sensitive - PSAE , Stenotrophomonas and Kleb in the sputum ? unclear is Steno malt is a coloniser vs a true pathogen ARDS Acute VDRF, difficulty wean - sp trach R sided PTX sp CT Abx associated diarrhea, C.diff negative Abnormal UA, CANDIDURIA Persiastent leukocytosis and bandemia Persistent fever, now low grade Leukocytosis - going down, still prominent bandemia Abx associated diarrhea Pt remains critically ill , seems better today REC's: cont zosyn, cont Bactrim -WILL avoid Levaquine 2/2 amiodarone use fu sputum fu C.diff Mariana Patel MD Dec 01, 2016 10:42
[2016-12-01] MEDS: METOPROLOL TARTRATE 5 MG/5 ML VIAL IV PUSH PRN (12:01)
--- NOTE | 2016-12-01 12:02 | HHI.PR ---
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 - Critical illness polyneuropathy Status: Acute Plan: aggressive nutritional support (4) Morbid obesity ICD Codes: E66.01 - Morbid (severe) obesity due to excess calories Status: Chronic Subjective Subjective Comments No acute events reported Active Medications Current Medications Medications (Trade) Dose Ordered Sig/Audelia Route Start Time Stop Time Status Last Admin (NS Flush) 2 ml UNSCH PRN .XX 10/25/16 05:30 11/29/16 04:16 (NS Flush) 2 ml BID .XX 10/25/16 09:00 12/01/16 08:11 (Tylenol) 650 mg Q6H PRN PO 10/25/16 05:30 11/23/16 13:20 (Zofran Inj) 4 mg Q6H PRN IV 10/25/16 05:30 Miscellaneous Information 1 Q361D XX 10/25/16 05:30 10/25/16 21:10 (Chlorhexidine 2% Cloth) Taper DAILY@04 TOP 10/26/16 04:00 10/22/17 03:59 11/29/16 04:00 (Chlorhexidine 2% Cloth) 3 pack UNSCH PRN TOP 10/25/16 05:30 (Milk Of Magnesia Liq) 30 ml Q12H PRN PO 10/25/16 05:30 10/26/16 20:52 (Senokot) 17.2 mg Q12H PRN PO 10/25/16 05:30 12/01/16 08:13 (Dulcolax Supp) 10 mg DAILY PRN RECTAL 10/25/16 05:30 (Lactulose Liq) 30 ml DAILY PRN PO 10/25/16 05:30 (Pulmicort Respule Neb) 0.5 mg Q12HR NEB NEB 10/25/16 20:00 12/01/16 07:29 (Peridex 0.12% Liq) 15 ml BID@08,20 MT 10/25/16 20:00 12/01/16 08:10 (NS Flush) DAILY IVF 10/26/16 09:00 11/29/16 07:54 (NS Flush) UNSCH PRN IVF 10/25/16 16:45 11/04/16 08:33 Propofol 100 ml @ 4.695 mls/ hr TITRATE PRN IV 10/26/16 08:30 12/01/16 08:14 (Lacrilube Opht Oint) 1 applic Q12HR EACH EYE 10/26/16 10:00 12/01/16 08:11 (Isordil) 10 mg Q8HR PO 10/28/16 14:00 Future Hold 11/23/16 05:27 (Haldol Inj) 5 mg Q4H PRN IV PUSH 11/03/16 13:00 (Trandate Inj) 20 mg Q15M PRN IV PUSH 11/03/16 13:00 11/30/16 09:39 Potassium Chloride 100 ml @ 50 mls/hr Q2H PRN IV 11/05/16 04:45 11/29/16 09:27 Potassium Chloride 100 ml @ 50 mls/hr Q2H PRN IV 11/05/16 04:45 11/24/16 13:18 (K-Lyte Cl Eff) 50 meq UNSCH PRN PO 11/05/16 04:45 Potassium Chloride 100 ml @ 25 mls/hr UNSCH PRN IV 11/05/16 04:45 11/10/16 05:42 Potassium Chloride 100 ml @ 50 mls/hr Q2H PRN IV 11/05/16 04:45 Magnesium Sulfate 4 gm/Sodium Chloride 100 ml @ 50 mls/hr UNSCH PRN IV 11/05/16 04:45 (Mag-Ox) 800 mg UNSCH PRN PO 11/05/16 04:45 Magnesium Sulfate 2 gm/Sodium Chloride 100 ml @ 50 mls/hr UNSCH PRN IV 11/05/16 04:45 (K-Phos) 2,000 mg Q4H PRN PO 11/05/16 04:45 Sodium Phosphate 30 mmol/Sodium Chloride 250 ml @ 42 mls/hr UNSCH PRN IV 11/05/16 04:45 11/27/16 06:07 (K-Phos) 2,000 mg UNSCH PRN PO/TUBE 11/05/16 04:45 Potassium Phosphate 30 mmol/ Sodium Chloride 260 ml @ 42 mls/hr UNSCH PRN IV 11/05/16 04:45 (SoluMEDROL INJ) 40 mg DAILY IV 11/09/16 09:00 12/01/16 08:11 Fentanyl Citrate 250 ml @ 5 mls/hr TITRATE PRN IV 11/13/16 14:00 12/01/16 06:37 (Apresoline Inj) 10 mg Q1HR PRN IV PUSH 11/15/16 16:15 11/30/16 09:38 (Nitroglycerin 2% Oint) 2 inch Q6HR PRN TOPICAL 11/15/16 16:15 (Trandate Inj) 10 mg Q1HR PRN IV PUSH 11/15/16 16:15 11/24/16 06:41 (Cardizem) 90 mg Q6HR PO 11/15/16 18:00 Future hold 12/01/16 11:26 Midazolam HCl 100 ml @ 2 mls/hr TITRATE PRN IV 11/16/16 12:15 11/22/16 05:52 (Lopressor) 50 mg Q6HR PO 11/16/16 18:00 Future hold 12/01/16 11:26 (Pepcid) 20 mg BID NG 11/16/16 21:00 12/01/16 08:13 (NS Flush) See Protocol DAILY IV FLUSH 11/17/16 09:00 12/01/16 08:12 (NS Flush) See Protocol UNSCH PRN IV FLUSH 11/16/16 14:30 (Heparin Central Flush) See Protocol DAILY IV FLUSH 11/17/16 09:00 12/01/16 08:11 (Heparin Central Flush) See Protocol UNSCH PRN IV FLUSH 11/16/16 14:30 (NS Flush) UNSCH PRN IV FLUSH 11/16/16 14:30 (Lanoxin) 0.125 mg DAILY PO 11/19/16 09:00 Future hold 12/01/16 08:13 (Levemir Inj) 62 units Q12H SQ 11/18/16 13:00 Future Hold 11/18/16 13:00 (Catapres) 0.2 mg Q8HR OG-TUBE 11/18/16 22:00 Future hold 12/01/16 06:30 (D50w (Vial) Inj) 50 ml UNSCH PRN IV PUSH 11/20/16 07:45 (Glucagon Inj) 1 mg UNSCH PRN OTHER 11/20/16 07:45 (NovoLIN R SUPPLEMENTAL SCALE) 1 Q4HR SQ 11/20/16 08:00 12/01/16 11:26 Heparin Sodium/ Dextrose 250 ml @ 10 mls/hr TITRATE IV 11/22/16 17:45 Future hold 12/01/16 09:40 (Heparin Inj) 5,000 units UNSCH PRN IV PUSH 11/22/16 17:45 Future hold (Heparin Inj) 2,500 units UNSCH PRN IV PUSH 11/22/16 17:45 Future hold 11/28/16 16:01 Piperacillin Sod/ Tazobactam Sod 100 ml @ 200 mls/hr Q6H IV 11/23/16 17:00 12/01/16 10:48 (Lopressor Inj) 5 mg Q5M PRN IV PUSH 11/28/16 02:45 11/30/16 06:38 Nicardipine HCl 25 mg/Sodium Chloride 250 ml @ 50 mls/hr TITRATE PRN IV 11/30/16 11:15 11/30/16 13:51 Nitroglycerin/ Dextrose 250 ml @ 1.5 mls/hr TITRATE PRN IV 11/30/16 11:15 (Cordarone) 200 mg Q12HR OG-TUBE 11/30/16 21:00 12/01/16 08:13 (Duoneb Neb) 1 ampule Q4HR NEB NEB 11/30/16 12:00 12/01/16 11:40 (Albuterol Neb) 2.5 mg Q2HR NEB PRN NEB 11/30/16 11:15 (Bactrim Ds 800-160 Mg) 2 tab Q8HR PO 11/30/16 22:00 12/01/16 06:31 Allergies Allergies Coded Allergies No Known Allergies (Unverified10/25/16) Review of Systems All other ROS: Unable to obtain Exam I&O / VS 12/01/16 12/01/16 12/02/16 15:00 23:00 07:00 Intake Total 200 ml Balance 200 ml IV Total 200 ml Vital Signs Date Time Temp Pulse Resp B/P (MAP) Pulse Ox O2 Delivery O2 Flow Rate FiO2 12/01/16 07:30 99 40 12/01/16 06:00 110 12/01/16 04:16 95 40 12/01/16 04:00 40 12/01/16 04:00 99.0 125 18 104/56 (72) 95 12/01/16 04:00 107 12/01/16 02:00 85 12/01/16 02:00 40 12/01/16 01:09 99 40 12/01/16 00:00 85 12/01/16 00:00 40 12/01/16 00:00 98.9 125 18 155/109 (124) 95 11/30/16 22:08 96 40 11/30/16 22:00 112 11/30/16 20:00 98.6 98 18 111/56 (74) 95 11/30/16 20:00 97 11/30/16 20:00 40 11/30/16 19:33 97 40 11/30/16 19:31 108 11/30/16 19:30 98 111/56 11/30/16 19:25 96 11/30/16 19:21 96 11/30/16 19:15 95 11/30/16 19:10 94 11/30/16 19:06 94 11/30/16 19:00 73 11/30/16 18:55 76 11/30/16 18:50 78 11/30/16 18:45 84 11/30/16 18:40 96 11/30/16 18:36 96 11/30/16 18:30 97 11/30/16 18:25 125 11/30/16 18:20 127 11/30/16 18:15 122 11/30/16 18:10 129 11/30/16 18:05 134 11/30/16 18:00 144 11/30/16 17:35 144 11/30/16 17:30 144 16 121/72 (88) 92 11/30/16 17:30 144 11/30/16 17:25 144 11/30/16 17:25 144 21 121/75 (90) 92 11/30/16 17:20 145 11/30/16 17:20 145 15 104/63 (77) 93 11/30/16 17:16 144 11/30/16 17:16 144 17 110/70 (83) 93 11/30/16 17:10 144 21 122/74 (90) 93 11/30/16 17:10 144 11/30/16 17:05 144 11/30/16 17:05 144 20 118/73 (88) 93 11/30/16 17:00 144 11/30/16 17:00 144 19 122/73 (89) 93 11/30/16 16:55 144 11/30/16 16:55 144 19 135/78 (97) 93 11/30/16 16:50 144 19 153/85 (107) 93 11/30/16 16:50 144 11/30/16 16:45 144 11/30/16 16:45 144 16 148/85 (106) 93 11/30/16 16:40 144 16 155/91 (112) 93 11/30/16 16:40 144 16 155/91 (112) 93 11/30/16 16:40 144 11/30/16 16:35 144 15 157/93 (114) 94 11/30/16 16:35 144 15 157/93 (114) 94 11/30/16 16:35 144 11/30/16 16:30 144 18 166/95 (118) 93 11/30/16 16:30 144 18 166/95 (118) 93 11/30/16 16:30 144 11/30/16 16:25 144 11/30/16 16:25 144 14 169/102 (124) 93 11/30/16 16:25 144 14 169/102 (124) 93 11/30/16 16:20 144 15 159/91 (113) 93 11/30/16 16:20 144 15 159/91 (113) 93 11/30/16 16:20 144 11/30/16 16:15 144 14 176/93 (120) 93 11/30/16 16:15 144 14 176/93 (120) 93 11/30/16 16:15 144 11/30/16 16:10 144 11/30/16 16:10 144 13 166/93 (117) 93 11/30/16 16:10 144 13 166/93 (117) 93 11/30/16 16:05 144 21 164/91 (115) 94 11/30/16 16:05 144 21 164/91 (115) 94 11/30/16 16:05 144 11/30/16 16:00 144 23 162/86 (111) 93 11/30/16 16:00 93 40 11/30/16 16:00 144 23 162/86 (111) 93 11/30/16 16:00 40 11/30/16 16:00 144 11/30/16 15:56 144 16 160/91 (114) 93 11/30/16 15:45 145 15 172/85 (114) 94 11/30/16 15:40 145 13 169/88 (115) 94 11/30/16 15:35 145 15 169/93 (118) 93 11/30/16 15:30 145 16 165/98 (120) 94 11/30/16 15:25 145 16 158/96 (116) 93 11/30/16 15:20 146 14 156/89 (111) 93 11/30/16 15:15 146 14 155/83 (107) 93 11/30/16 15:10 146 12 148/81 (103) 93 11/30/16 15:05 146 12 144/81 (102) 93 11/30/16 15:00 146 13 136/81 (99) 93 11/30/16 14:50 146 13 163/94 (117) 93 11/30/16 14:50 146 11/30/16 14:45 146 15 162/90 (114) 93 11/30/16 14:45 146 11/30/16 14:40 146 11/30/16 14:40 146 14 161/96 (117) 93 11/30/16 14:35 146 11/30/16 14:35 146 13 164/100 (121) 93 11/30/16 14:30 146 12 157/91 (113) 93 11/30/16 14:30 146 11/30/16 14:25 146 13 154/92 (112) 93 11/30/16 14:25 146 11/30/16 14:20 146 13 154/94 (114) 93 11/30/16 14:20 146 11/30/16 14:15 146 13 154/92 (112) 93 11/30/16 14:15 146 11/30/16 14:10 146 13 154/84 (107) 92 11/30/16 14:10 146 11/30/16 14:05 146 11/30/16 14:05 146 13 148/86 (106) 92 11/30/16 14:00 146 14 140/81 (100) 92 11/30/16 14:00 146 11/30/16 13:55 146 13 134/81 (98) 93 11/30/16 13:55 146 11/30/16 13:51 145 139/82 11/30/16 13:50 145 14 139/82 (101) 92 11/30/16 13:50 145 11/30/16 13:49 145 11/30/16 13:48 145 11/30/16 13:48 145 14 129/80 (96) 93 11/30/16 13:39 95 100 11/30/16 12:28 144 11/30/16 12:28 144 16 198/103 (134) 98 11/30/16 12:24 145 11/30/16 12:24 145 15 195/105 (135) 97 11/30/16 12:20 146 15 186/103 (130) 95 11/30/16 12:20 146 11/30/16 12:18 146 11/30/16 12:18 146 16 177/96 (123) 95 11/30/16 12:17 146 11/30/16 12:17 146 17 175/108 (130) 95 11/30/16 12:00 40 11/30/16 12:00 145 11/30/16 12:00 145 17 160/102 (121) 95 Exam Comments alert, trach in place, follows by closing eyes, raising eyebrows, quadraplegia Objective Micro and Labs Laboratory Tests Test 12/01/16 04:40 White Blood Count 15.9 Red Blood Count 3.91 Hemoglobin 12.6 Hematocrit 36.8 Mean Corpuscular Volume 94.2 Mean Corpuscular Hemoglobin 32.3 Mean Corpuscular Hemoglobin Concent 34.3 Red Cell Distribution Width 14.6 Platelet Count 266 Mean Platelet Volume 7.1 Neutrophils (%) (Auto) 92.1 Lymphocytes (%) (Auto) 3.5 Monocytes (%) (Auto) 3.9 Eosinophils (%) (Auto) 0.1 Basophils (%) (Auto) 0.4 Neutrophils # (Auto) 14.7 Lymphocytes # (Auto) 0.6 Monocytes # (Auto) 0.6 Eosinophils # (Auto) 0.0 Basophils # (Auto) 0.1 CBC Comment AUTO DIFF Differential Total Cells Counted 100 Neutrophils % (Manual) 74 Band Neutrophils % 15 Lymphocytes % 4 Monocytes % 2 Neutrophils # (Manual) 14.9 Metamyelocytes 4 Myelocytes 1 Nucleated Red Blood Cells 3 Differential Comment FINAL DIFF MANUAL Toxic Granulation 1+ Platelet Estimate NORMAL Platelet Morphology Comment NORMAL Tear Drop Cells 1+ Activated Partial Thromboplast Time 25.9 Blood Urea Nitrogen 11 Creatinine LESS THAN 0.15 Random Glucose 126 Total Protein 5.0 Albumin 1.7 Calcium Level 6.5 Phosphorus Level 2.0 Magnesium Level 1.8 Alkaline Phosphatase 66 Aspartate Amino Transf (AST/SGOT) 18 Alanine Aminotransferase (ALT/SGPT) 67 Total Bilirubin 0.8 Sodium Level 133 Potassium Level 3.7 Chloride Level 97 Carbon Dioxide Level 27.6 Anion Gap 8 Estimat Glomerular Filtration Rate 690 Protein Corrected Calcium 7.5 Digoxin Level 0.5 Date/Time Source Procedure Growth Status 11/23/16 19:26 Blood Peripheral Aerobic Blood Culture - Final NO GROWTH IN 5 DAYS Complete 11/23/16 19:26 Blood Peripheral Anaerobic Blood Culture - Final NO GROWTH IN 5 DAYS Complete 11/08/16 14:15 Stool Stool Stool Occult Blood ([facility]) - Final HEMOCCULT NEGATIVE Complete 11/27/16 09:55 Sputum Endotracheal Gram Stain - Final Complete 11/27/16 09:55 Sputum Culture - Final Klebsiella Pneumoniae Stenotrophomonas Maltophilia Pseudomonas Aeruginosa Complete 11/11/16 01:15 Urine Catheterized Urine Urine Culture - Final Ana Albicans Complete Anish Riggins MD Dec 01, 2016 12:02
[2016-12-01] MEDS ORDERED: INSULIN DETEMIR 100 UNITS/ML VIAL SQ ONE (13:30)
--- NOTE | 2016-12-01 13:31 | HHI.CCPN ---
Subjective Remarks/Hospital Course 56-year-old very pleasant gentleman with past medical history of COPD, and hypertension presents complaining of shortness of breath and nausea, generalized fatigue and chills for 2 days. He thinks it has been from being out in the heat. Denies any fever, chest pain, vomiting, abdominal pain, focal weakness or numbness. In the emergency department his saturation was in mid 80s on arrival with auditory wheezing and tachypnea. He was placed on 4 liters of NC and saturating in the low 90. He does not use oxygen at home. He also mentioned 2 days ago, he came home and was sitting in a chair and was taking his shoes off when he passed out. States he woke up and was still on the chair. This has never happen before. 10/25: Patient intubated secondary to increasing oxygen requirements, altered mental status. Discussed with son. Somewhat hypertensive post intubation. 10/26: Placed on rotaprone bed last evening. Flolan initiated. Saturations improved. Afebrile. Remains on Nimbex drip. 10/27: T max 99.7. Tolerated on not prone position 2 hours yesterday. Tolerating trickle feeds. FiO2 down to 55% 10/28: Tmax 99.9. When unprone for chest x-ray this a.m. desaturated. Currently on 90% FiO2. Actually hypertensive. No bowel movements. Remains paralyzed 10/29: Remains intubated sedated on continuous Prone therapy Except for chest x- ray. Fever 100.8. Panculture requested. Zyvox added. Continue IV sedation with propofol and fentanyl and Versed, neuromuscular paralysis with Nimbex 10/30: Prone cycle changed to 8 hr prone, 1 hr supine from 10/29. Due to hypoxia will continue with same cycle today. Chest x-ray remains unchanged. Patient remains severely hypoxemic FiO2 at 75% PEEP at 16. WBC count worsened to 18. Remains neuromuscularly paralyzed. 10/31: Patient remains critically ill but stable. Oxygen saturation 95% on 55 of FiO2 and PEEP of 16. Reduce PEEP to 14, FiO2 to 50% and start weaning Flolan. Increase supine time to 4 hours, reduce Prone time to 6 hours 11/01: Patient remains intubated sedated critically ill on neuromuscular paralysis. FiO2 reduced to 50, I will attempt PEEP wean gradually to 12 today. Prone/supine cycles will be changed to 6 hours each 11/02: FiO2 remains at 50%, PEEP reduced from 14 to 12 today, TV increased to 600 and RR to 20, in anticipation of discontinuing prone therapy, which will be DCd today. Off Flolan for 2 days 11/03: off pronation. fio2 up to 65% , peep 12. agitation causing desaturation. minimal improvements. 11/04: good diuresis yesterday, but despite that, fio2 persists at 65% and spo2 decreasing to 91% today. no real improvements and some worsening of pulmonary function despite ongoing aggressive therapies. still not safe for SBT given hypoxia. also severely hypertensive this morning. 11/05: continues to diurese well and Cr still at baseline. fio2 at 90% however, and no clinical improvements in mental status or hypoxia. still unsafe for SBT given hypoxemia. off pathway. hypertension under much better control. poor neuro status is concerning. 11/06: Remains severely hypoxemic. FiO2 was 100% PEEP 14. I reduce FiO2 to 90% after increasing PEEP to 16. Developed a flutter with RVR overnight, currently on Cardizem drip. Unable to do SBT due to very high settings 11/07: Remains hypoxemic and but able to wean FiO2 down to 80% with PEEP of 16. Remains unresponsive on sedation. Unable to trach due to his high vent settings and high FiO2. Remains on Cardizem and 15 mg per hour, with rate controlled a flutter. We'll start by mouth Cardizem in an attempt to wean IV Cardizem 11/08: Remains critically ill hypoxic but FiO2 now weaned to 60%, PEEP remains at 16. Very heavily sedated no withdrawal to pain. Will hold all continuos sedation. Sputum culture with Klebsiella sensitive to Rocephin. A flutter persistent, will start IV heparin 11/09 Patient is sedated with Diprivan and intubated, On Cardizem drip 15mg/hr for Aflutter. Heparin drip stated yesterday. 11/10 Patient remains sedated and intubated. On Heparin drip. Persistent fever with Tmax 102.5. ETT was replaced yesterday. 11/11 Patient was placed on Cardizem and amio drips overnight for Afib with RVR. Sedated with Diprivan and intubated. On Heparin drip. T;99.3 this morning. 11/12 Patient remains intubated and sedated with Diprivan. On Cardizem drip 15mg/ hr. Afebrile, Tmax 100.6 11/13 Patient is sedate with Diprivan and intubated. In Afib with RVR now on Amio drip. Tmax 100,4 11/14 Remains intubated sedated with propofol and fentanyl. Afib rate controlled , remains on amiodarone and Cardizem gtt. Fio2 remains high at 70%, PEEP 12. CXR persistent bibasilar infiltrates/effusion 11/15: Currently sedated with propofol and fentanyl drips. Currently in A. fib/ flutter on amiodarone drip and Cardizem drip. PEEP increased to 14. FiO2 65. 11/16: Tmax 100.1. Patient more alert and tachycardic this AM. Adding midazolam gtt for sedation and currently tolerating tube feeding. Positive BM. PEEP to 12. FiO2 75% 11/17: Afebrile. FiO2 down to 60%. PEEP set 12. Multiple tracheostomy hopefully on Saturday. Heart rate better control. 11/18: Afebrile. Discontinuing amiodarone drip today and switching to oral. FiO2 between 60 and 70%. Restarting epoprostenol in attempt to get FiO2 down to 50% for tracheostomy tomorrow 11/19 No events overnight. Sedated with Diprivan, Fentanyl and versed. Still requiring high O2 - on PRVC with PEEP;12 and FIO2 70%. Afebrile. 11/20 Patient remains sedated with Diprivan, versed, Fentanyl and intubated. On PRVC with PEEP: 12, FIO2 50% , sats 88-90%. On Heparin drip. 11/21: Tmax 99.4. Tolerating tube feeds. Remains on heparin drip. FiO2 down to 55%. PEEP of 10. Eyes open blinks spontaneously. Does squeeze and weakly on left side with encouragement 11/22: Intubated heavily sedated. FiO2 50%, remains on Flolan. PEEP 10. Bumex 1 mg 1 and Diamox 500 mg 1 IV. She will negative balance. Heparinized tube feeds on hold for tracheostomy today at 12. Remains in atrial flutter 11/23 Patient remains sedated with Diprivan, Fentanyl, Versed and intubated. On Heparin drip. For CT guided thoracentesis today. On APRV 11/24 Patient remains sedated and intubated. 20Fr CT placed yesterday for right sided PTX. Spiked fever with T 101.6. Remains on Heparin drip. 11/25 Patient remains intubated with Diprivan, fentanyl and intubated. On PRVC with PEEP: 10, FIO2 50%. Afebrile. 11/26 Patient is sedated with Diprivan, Fentanyl and intubated. Afebrile. On Heparin drip. On PRVC with PEEP: 10, FIO2 60% 11/27 Patient is scheduled for trach in OR today. Sedated and intubated. Heparin drip is off for trach. 11/28 Patient s/p trach yesterday. Sedated with Diprivan and Fentanyl. Afebrile. On PRVC with PEEP; 10 and FIO2 50% 11/29 No events overnight. Sedated and on ventilator via trach. For PEG tube placement today. Heparin drip on hold. 11/30: Currently afebrile. MAXIMUM TEMPERATURE 100. Positive BM via fecal containing device. Tube feeds on hold secondary to plan PEG tube placement today. Heparin drip on hold as well. Subjective 12/01: Status post PEG tube placement yesterday per IR. Heparin drip and tube feeds restarted today. Restarting insulin detemir. Awake and alert and weakly follows commands on sedation Objective Vital Signs Date Time Temp Pulse Resp B/P (MAP) Pulse Ox O2 Delivery O2 Flow Rate FiO2 12/01/16 13:08 96 40 12/01/16 06:00 110 12/01/16 04:00 99.0 18 104/56 (72) 11/29/16 08:06 Ventilator Intake and Output 12/01/16 12/01/16 12/01/16 07:59 15:59 23:59 Intake Total 1022 ml 300 ml Output Total 650 ml Balance 372 ml 300 ml Result Diagram: 12/01/16 0440 12/01/16 0440 Other Results Microbiology Date/Time Source Procedure Growth Status 11/23/16 19:26 Blood Peripheral Aerobic Blood Culture - Final NO GROWTH IN 5 DAYS Complete 11/23/16 19:26 Blood Peripheral Anaerobic Blood Culture - Final NO GROWTH IN 5 DAYS Complete 11/08/16 14:15 Stool Stool Stool Occult Blood (TYLER) - Final HEMOCCULT NEGATIVE Complete 11/27/16 09:55 Sputum Endotracheal Gram Stain - Final Complete 11/27/16 09:55 Sputum Culture - Final Klebsiella Pneumoniae Stenotrophomonas Maltophilia Pseudomonas Aeruginosa Complete 11/11/16 01:15 Urine Catheterized Urine Urine Culture - Final Ana Albicans Complete Imaging Last Impressions Gastrostomy Tube Placement 11/30/16 0000 Signed Impressions: Service Date/Time: Wednesday, November 30, 2016 12:22 - CONCLUSION: Uncomplicated gastrostomy tube placement as above. Jorge Jolly MD Chest X-Ray 11/30/16 0000 Signed Impressions: Service Date/Time: Wednesday, November 30, 2016 03:55 - CONCLUSION: Progression in the bilateral pleural effusions and bibasilar pulmonary infiltrates. Fito Mar Jr., MD Abdomen X-Ray 11/30/16 0000 Signed Impressions: Service Date/Time: Wednesday, November 30, 2016 09:43 - CONCLUSION: 1. No definite nasogastric catheter is identified. Repeat examination centered higher in the thorax may be performed for more definitive evaluation. Consider repositioning the nasogastric catheter prior to repeat imaging. Nico Vaughan MD Brain MRI 11/26/16 0000 Signed Impressions: Service Date/Time: Saturday, November 26, 2016 19:52 - CONCLUSION: 1. Small focal signal abnormality in the superior medial left frontal lobe. This is nonspecific. This could be the sequela from prior insult such as a contusion or small infarct. An acute infarct is not seen. A small underlying lesion could have a similar appearance. One could perform a contrast-enhanced study to determine if there is any enhancement associated with this region. 2. There are a few scattered minimal punctate areas of demyelination seen not expected for the patient's age. 3. Sinus disease. Jayson Soto MD Lower Extremity Ultrasound 11/09/16 0000 Signed Impressions: Service Date/Time: Wednesday, November 09, 2016 14:13 - CONCLUSION: Normal examination. Jayson Manning MD Liver Ultrasound 11/09/16 0000 Signed Impressions: Service Date/Time: Wednesday, November 09, 2016 13:58 - CONCLUSION: Sono dense liver without duct dilatation. 4 mm common duct. Ward Kim MD FACR Chest CT 11/06/16 0000 Signed Impressions: Service Date/Time: Sunday, November 06, 2016 11:24 - CONCLUSION: 1. Dense bilateral posterior lower lobe airspace consolidation consistent with aspiration versus less likely pneumonia. 2. Linear consolidation in the right middle lobe consistent with atelectasis versus aspiration. 3. Trace left and small right pleural effusions. 4. Support lines and tubes in good position. 5. Prominent coronary artery calcifications. Nico Vaughan MD Head CT 11/05/16 0000 Signed Impressions: Service Date/Time: Saturday, November 05, 2016 21:43 - CONCLUSION: 1. No acute intracranial abnormalities. Pansinus fluid opacification. Cristofer De Santiago MD Carotid Artery Ultrasound 10/25/16 0000 Signed Impressions: Service Date/Time: September 08:27 - CONCLUSION: Mild to moderate plaque in both carotid systems with less than 40%% diameter stenosis by velocity criteria. Jhonathan Dietz MD CT Angiography 10/25/16 0000 Signed Impressions: Service Date/Time: September 06:12 - CONCLUSION: 1. Negative for pulmonary embolism. 2. There is a fairly large area of masslike consolidation in the medial right lung involving posterior segment right upper lobe and medial aspect of right lower lobe. There is associated right hilar and mediastinal adenopathy measuring up to 2.1 cm. Differential diagnosis includes pneumonia or underlying lung neoplasm. Close followup imaging recommended after treatment for pneumonia, to assess for underlying mass. Cristofer De Santiago MD Objective Remarks GENERAL: 56-year-old male, critically ill orotracheally intubated SKIN: Warm and dry. Positive intertrigo HEAD: Atraumatic. Normocephalic. EYES: Pupils equal and round about 3 mm bilaterally and reactive. No scleral icterus. No injection or drainage. ENT: No nasal bleeding or discharge. Orotracheally intubated NECK: Trachea midline. No JVD. Tracheostomy site is clean dry and intact CARDIOVASCULAR: Tachycardia, IR. S1, S2 no S4. Diminished heart sounds. Without murmur, clicks, or rubs RESPIRATORY: Bilateral inspiratory and expiratory wheezes and coarse bilateral anterior and posterior rhonchi appreciated. Diminished. GASTROINTESTINAL: Abdomen soft, obese. Hypoactive bowel sounds appreciated MUSCULOSKELETAL: Extremities with trace lower extremity bilateral edema. No obvious deformities. NEUROLOGICAL: Withdraws to pain. Eyes are open. Positive gag. Positive corneal reflex. Weakly follows commands Date of Insertion: Nov 16, 2016 Line: PICC Side: Left Location: Antecubital A/P Assessment and Plan Neuro/Psych: CIM/SHEFALI s/p Neuromuscular paralysis for Prone therapy Agitated Delirium, Metabolic Encephalopathy Syncope Currently on Diprivan at 20 g per minute and,Fentanyl drip at 200 mg an hour for sedation and vent synchrony.. Will wean today as tolerated Goal of RASS -2 , Daily sedation vacation MRI brain 11/26: Small focal signal abnormality in the superior medial left frontal lobe.This could be the sequela from prior insult such as a contusion or small infarct. An acute infarct is not seen. Neuro has followed-Dr. Rdz. MRI brain and C-spine when clinically stable prn hydromorphone for breakthrough. Haloperidol 5mg iv q4h prn for agitation. Brain CT on admission revealed no acute intracranial findings, CT brain 11/05- no acute findings. opacification of sinuses. Carotid ultrasound less than 50% stenosis bilaterally EEG 11/20: No seizure activity. EEG 11/09: severe encephalopathy PT/OT for range of motion CV: Atrial fib/ flutter with RVR Hypertension- On Amiodarone 200mg Q12, Digoxin 0.125 mg daily(Dig. level 0.5 on 11/26). Repeat in a.m. On PO diltiazem 90 mg PO q6hr, metoprolol 50mg Q6, Clonidine 0.2mg Q8 for hypertension and Atrial fib/flutter Resume IV heparin for anticoagulation-when clinically indicated Repeat echo with bubble study: 11/22: No shunt seen Echo 10/25 EF 60-65% Resp: Acute hypoxemic Respiratory failure - severe and persistent. s/p trach 11/27 Spontaneous Right sided PTX 2nd barotrauma Severe ARDS COPD exacerbation Pneumonia most likely community-acquired Obesity hypoventilation syndrome Tobacco use disorder On PRVC RR 16, TV 650, IT: 1.3, PEEP: 8, FIO2 40% Albuterol/ipratropium aerosols every 4 hours of albuterol aerosols every 2 hours. Dyspnea Ventilator bundle Continue with vent support keep sat >92% s/p trach 11/[address] Martin #8 [place] s/p 20Fr CT placed for right PTX 11/23, monitor CT drainage- or cc past [address] pulmonary angio revealed no pulmonary embolus. Masslike consolidation in the posterior right upper lobe and medial right lower lobe. Lymphadenopathy to 1 cm right hilum and subcarinal. Atelectasis left lower lobe. Discontinued Prone therapy 11/02/16. Budesonide 0.5 mg aerosols twice a day. Methylprednisolone 40 mg IV daily Pulmonary/Dr. Wynne following GI: Morbid Obesity Elevated LFT's- now within normal. For PEG tube placement today US liver: No ductal dilatation Tube feeds on hold for PEG tube placeemnt today (Vital high protein 1.5 at 40ml/ hr) Famotidine 20 milligrams mg twice a day for GI prophylaxis /renal: Monitor renal function, I/O's, electrolytes replacement per protocol. Endo: Hyperglycemia- SSI Q4 with Regular Insulin mild protocol for glycemic control. Previously insulin detemir 62 units twice a day. Restart 15 units twice a day today . Heme: Normocytic anemia Monitor CBC, coags- patient is on heparin drip ID: Severe sepsis HAP Continue abx(piperacillin/tazobactam and is sulfamethoxazole/trimethoprim 800/ 160 2 tablets 3 times a day) Monitor for signs of infections ( Fever, WBC) WBC is trending down, afebrile. Sputum: Klebsiella, Stenotrophomonas and Pseudomonas 11/27 Sputum cx 11/23: Kleb, Pseudomonas, Currently on piperacillin/tazobactam s/p (ceftriaxone and fluconazole course). ID is following-Dr. Patel s/p ceftriaxone 11/02-11/09 for Enterobacter pneumonia. Repeat sputum Klebsiella sensitive to Rocephin 10/29/16-Enterobacter in sputum, 11/06/16, 11/10 sputum- Klebsiella Urine Legionella and pneumococcal antigens negative and influenza negative C-diff PCR is negative Access RUE PICC placed 11/05 through 11/15 replaced 11/16 with left upper extremity PICC Prophylaxis - GI, famotidine - DVT - IV heparin gtt 11/09 Doppler US LE negative for DVT Palliative care is following Critical Care: The total critical care time was 30 minutes. Time to perform other separately billable procedures was not included in the critical care time. Ubaldo Story MD Dec 01, 2016 13:31
[2016-12-01] MEDS ORDERED: CALCIUM GLUCONATE INJ 1 GM in SODIUM CHLORIDE 0.9% INJ 100 ML IV ONE (13:45)
[2016-12-01] MEDS ORDERED: POTASSIUM PHOSPHATE INJ 15 MMOL in SODIUM CHLORIDE 0.9% INJ 150 ML IV ONE (14:00)
[2016-12-01] MEDS: MAGNESIUM SULFATE 1 GM PREMIX 100 ML IV SCH ×2 (14:42→15:37)
[2016-12-01 18:14] LABS: APTT (PATIENT) 54.5 SEC (24.3-30.1)
[2016-12-01] MEDS: INSULIN DETEMIR 100 UNITS/ML VIAL SQ SCH (20:49)
[2016-12-01 23:54] LABS: APTT (PATIENT) 60.4 SEC (24.3-30.1)
[2016-12-02] VITALS (21 sets, daily range): BP systolic 109–158; BP diastolic 62–85; PULSE 53–111; RESP 16–18; TEMP 98.7–99.3; O2SAT 92–97
[2016-12-02] MEDS: METOPROLOL TARTRATE 50 MG TAB PO SCH ×6 (00:15→23:14)
[2016-12-02] MEDS: DILTIAZEM HCL 90 MG TAB PO SCH ×5 (00:15→23:14)
[2016-12-02] MEDS: PIPERACIL-TAZO 4.5 GM PREMIX 100 ML IV SCH ×5 (00:15→23:13)
[2016-12-02] MEDS: RESP: ALBUTEROL 2.5 MG/IPRATROPIUM 0.5 MG NEB (SCH) NEB ×6 (03:29→23:21)
[2016-12-02] MEDS: CHLORHEXIDINE GLUCONATE 2 % 1 PACK (2 CLOTHS) TOP SCH (04:00)
[2016-12-02] MEDS: INSULIN NovoLIN REGULAR SUPPLEMENTAL SCALE SQ SCH ×5 (04:00→20:00)
[2016-12-02 06:13] LABS: AUTOMATED NEUTROPHIL # 12.6 TH/MM3 (1.8-7.7); BASOPHIL % 0.2 % (0.0-2.0); EOSINOPHIL % 0.2 % (0.0-4.0); HEMATOCRIT 34.4 % (39.0-51.0); LYMPH % 4.9 % (9.0-44.0); LYMPHOCYTE # 0.7 TH/MM3 (1.0-4.8); MEAN CELL VOLUME 94.2 FL (80.0-100.0); MEAN CORPUSCULAR HEMOGLOBIN 30.5 PG (27.0-34.0); MEAN CORPUSCULAR HGB CONC 32.4 % (32.0-36.0); MONO % 4.6 % (0.0-8.0); NEUT % 90.1 % (16.0-70.0); PLATELET COUNT 275 TH/MM3 (150-450); RED BLOOD COUNT 3.65 MIL/MM3 (4.50-5.90); RED CELL DISTRIBUTION WIDTH 14.9 % (11.6-17.2); WHITE BLOOD COUNT 13.9 TH/MM3 (4.0-11.0)
[2016-12-02 06:22] LABS: HEMO FLAGS AUTO DIFF
[2016-12-02 06:32] LABS: ALKALINE PHOSPHATASE 57 U/L (45-117); ALT (GPT) 53 U/L (12-78); ANION GAP 6 MEQ/L (5-15); AST (GOT) 13 U/L (15-37); BICARBONATE 28.7 MEQ/L (21.0-32.0); BLOOD UREA NITROGEN 14 MG/DL (7-18); CHLORIDE 98 MEQ/L (98-107); GLOMERULAR FILTRATION RATE 690 ML/MIN (>89); POTASSIUM 4.3 MEQ/L (3.5-5.1); SODIUM (NA) 133 MEQ/L (136-145); TOTAL BILIRUBIN ADULT 0.3 MG/DL (0.2-1.0)
[2016-12-02] MEDS: cloNIDine HCL 0.2 MG TAB OG-TUBE SCH ×3 (06:37→20:39)
[2016-12-02] MEDS: SULFAMETHOXAZOLE-TRIMETHOPRIM DS 800-160 MG TAB PO SCH ×3 (06:37→20:39)
[2016-12-02 06:40] LABS: APTT (PATIENT) 77.9 SEC (24.3-30.1)
[2016-12-02] MEDS: PROPOFOL 1000 MG/100 ML IV PRN ×3 (06:54→23:59)
[2016-12-02] MEDS: RESP: BUDESONIDE 0.5 MG/2 ML NEB NEB SCH ×2 (07:14→19:32)
[2016-12-02 07:53] LABS: BANDS 16 % (0-6); METAMYELOCYTES 7 % (0-1); MYELOCYTES 4 % (0-0); NEUTROPHIL # MANUAL DIFF 13.2 TH/MM3 (1.8-7.7); POLYS (SEG NEUTROPHILS) 68 % (16-70); WBC DIFF SAMPLE 100
[2016-12-02 07:55] LABS: TOXIC GRANULATION 1+ (NORMAL)
[2016-12-02 07:57] LABS: SCAN/DIFF FINAL DIFF MANUAL
[2016-12-02] MEDS: CHLORHEXIDINE 0.12% (ORAL KIT) 15 ML CUP MT SCH ×2 (08:00→20:41)
[2016-12-02] MEDS: AMIODARONE 200 MG TAB OG-TUBE SCH ×2 (08:18→20:39)
[2016-12-02] MEDS: SODIUM CHLORIDE 0.9% FLUSH 10 ML FLUSH SCH ×2 (08:18→20:40)
[2016-12-02] MEDS: DIGOXIN 0.125 MG TAB PO SCH (08:18)
[2016-12-02] MEDS: SODIUM CHLORIDE 0.9% FLUSH 10 ML FLUSH IV FLUSH SCH (08:18)
[2016-12-02] MEDS: SODIUM CHLORIDE 0.9% FLUSH 10 ML FLUSH IVF SCH (08:19)
[2016-12-02] MEDS: INSULIN DETEMIR 100 UNITS/ML VIAL SQ SCH ×2 (08:19→20:39)
[2016-12-02] MEDS: SENNOSIDES 8.6 MG TAB PO PRN (08:19)
[2016-12-02] MEDS: methylPREDNISolone SOD SUCC 40 MG/1 ML VIAL IV SCH (08:19)
[2016-12-02] MEDS: FAMOTIDINE 20 MG TAB NG SCH ×2 (08:19→20:39)
[2016-12-02] MEDS: ARTIFICIAL TEARS OPTH OINT 3.5 APPLIC/3.5 GM TUBO EACH EYE SCH ×2 (08:20→20:40)
[2016-12-02] MEDS ORDERED: INSULIN NovoLIN REGULAR SUPPLEMENTAL SCALE SQ SCH (09:45)
[2016-12-02] MEDS: fentaNYL DRIP 250 ML IV PRN (09:56)
--- NOTE | 2016-12-02 09:57 | HHI.CCPN ---
Subjective Remarks/Hospital Course 56-year-old very pleasant gentleman with past medical history of COPD, and hypertension presents complaining of shortness of breath and nausea, generalized fatigue and chills for 2 days. He thinks it has been from being out in the heat. Denies any fever, chest pain, vomiting, abdominal pain, focal weakness or numbness. In the emergency department his saturation was in mid 80s on arrival with auditory wheezing and tachypnea. He was placed on 4 liters of NC and saturating in the low 90. He does not use oxygen at home. He also mentioned 2 days ago, he came home and was sitting in a chair and was taking his shoes off when he passed out. States he woke up and was still on the chair. This has never happen before. 10/25: Patient intubated secondary to increasing oxygen requirements, altered mental status. Discussed with son. Somewhat hypertensive post intubation. 10/26: Placed on rotaprone bed last evening. Flolan initiated. Saturations improved. Afebrile. Remains on Nimbex drip. 10/27: T max 99.7. Tolerated on not prone position 2 hours yesterday. Tolerating trickle feeds. FiO2 down to 55% 10/28: Tmax 99.9. When unprone for chest x-ray this a.m. desaturated. Currently on 90% FiO2. Actually hypertensive. No bowel movements. Remains paralyzed 10/29: Remains intubated sedated on continuous Prone therapy Except for chest x- ray. Fever 100.8. Panculture requested. Zyvox added. Continue IV sedation with propofol and fentanyl and Versed, neuromuscular paralysis with Nimbex 10/30: Prone cycle changed to 8 hr prone, 1 hr supine from 10/29. Due to hypoxia will continue with same cycle today. Chest x-ray remains unchanged. Patient remains severely hypoxemic FiO2 at 75% PEEP at 16. WBC count worsened to 18. Remains neuromuscularly paralyzed. 10/31: Patient remains critically ill but stable. Oxygen saturation 95% on 55 of FiO2 and PEEP of 16. Reduce PEEP to 14, FiO2 to 50% and start weaning Flolan. Increase supine time to 4 hours, reduce Prone time to 6 hours 11/01: Patient remains intubated sedated critically ill on neuromuscular paralysis. FiO2 reduced to 50, I will attempt PEEP wean gradually to 12 today. Prone/supine cycles will be changed to 6 hours each 11/02: FiO2 remains at 50%, PEEP reduced from 14 to 12 today, TV increased to 600 and RR to 20, in anticipation of discontinuing prone therapy, which will be DCd today. Off Flolan for 2 days 11/03: off pronation. fio2 up to 65% , peep 12. agitation causing desaturation. minimal improvements. 11/04: good diuresis yesterday, but despite that, fio2 persists at 65% and spo2 decreasing to 91% today. no real improvements and some worsening of pulmonary function despite ongoing aggressive therapies. still not safe for SBT given hypoxia. also severely hypertensive this morning. 11/05: continues to diurese well and Cr still at baseline. fio2 at 90% however, and no clinical improvements in mental status or hypoxia. still unsafe for SBT given hypoxemia. off pathway. hypertension under much better control. poor neuro status is concerning. 11/06: Remains severely hypoxemic. FiO2 was 100% PEEP 14. I reduce FiO2 to 90% after increasing PEEP to 16. Developed a flutter with RVR overnight, currently on Cardizem drip. Unable to do SBT due to very high settings 11/07: Remains hypoxemic and but able to wean FiO2 down to 80% with PEEP of 16. Remains unresponsive on sedation. Unable to trach due to his high vent settings and high FiO2. Remains on Cardizem and 15 mg per hour, with rate controlled a flutter. We'll start by mouth Cardizem in an attempt to wean IV Cardizem 11/08: Remains critically ill hypoxic but FiO2 now weaned to 60%, PEEP remains at 16. Very heavily sedated no withdrawal to pain. Will hold all continuos sedation. Sputum culture with Klebsiella sensitive to Rocephin. A flutter persistent, will start IV heparin 11/09 Patient is sedated with Diprivan and intubated, On Cardizem drip 15mg/hr for Aflutter. Heparin drip stated yesterday. 11/10 Patient remains sedated and intubated. On Heparin drip. Persistent fever with Tmax 102.5. ETT was replaced yesterday. 11/11 Patient was placed on Cardizem and amio drips overnight for Afib with RVR. Sedated with Diprivan and intubated. On Heparin drip. T;99.3 this morning. 11/12 Patient remains intubated and sedated with Diprivan. On Cardizem drip 15mg/ hr. Afebrile, Tmax 100.6 11/13 Patient is sedate with Diprivan and intubated. In Afib with RVR now on Amio drip. Tmax 100,4 11/14 Remains intubated sedated with propofol and fentanyl. Afib rate controlled , remains on amiodarone and Cardizem gtt. Fio2 remains high at 70%, PEEP 12. CXR persistent bibasilar infiltrates/effusion 11/15: Currently sedated with propofol and fentanyl drips. Currently in A. fib/ flutter on amiodarone drip and Cardizem drip. PEEP increased to 14. FiO2 65. 11/16: Tmax 100.1. Patient more alert and tachycardic this AM. Adding midazolam gtt for sedation and currently tolerating tube feeding. Positive BM. PEEP to 12. FiO2 75% 11/17: Afebrile. FiO2 down to 60%. PEEP set 12. Multiple tracheostomy hopefully on Saturday. Heart rate better control. 11/18: Afebrile. Discontinuing amiodarone drip today and switching to oral. FiO2 between 60 and 70%. Restarting epoprostenol in attempt to get FiO2 down to 50% for tracheostomy tomorrow 11/19 No events overnight. Sedated with Diprivan, Fentanyl and versed. Still requiring high O2 - on PRVC with PEEP;12 and FIO2 70%. Afebrile. 11/20 Patient remains sedated with Diprivan, versed, Fentanyl and intubated. On PRVC with PEEP: 12, FIO2 50% , sats 88-90%. On Heparin drip. 11/21: Tmax 99.4. Tolerating tube feeds. Remains on heparin drip. FiO2 down to 55%. PEEP of 10. Eyes open blinks spontaneously. Does squeeze and weakly on left side with encouragement 11/22: Intubated heavily sedated. FiO2 50%, remains on Flolan. PEEP 10. Bumex 1 mg 1 and Diamox 500 mg 1 IV. She will negative balance. Heparinized tube feeds on hold for tracheostomy today at 12. Remains in atrial flutter 11/23 Patient remains sedated with Diprivan, Fentanyl, Versed and intubated. On Heparin drip. For CT guided thoracentesis today. On APRV 11/24 Patient remains sedated and intubated. 20Fr CT placed yesterday for right sided PTX. Spiked fever with T 101.6. Remains on Heparin drip. 11/25 Patient remains intubated with Diprivan, fentanyl and intubated. On PRVC with PEEP: 10, FIO2 50%. Afebrile. 11/26 Patient is sedated with Diprivan, Fentanyl and intubated. Afebrile. On Heparin drip. On PRVC with PEEP: 10, FIO2 60% 11/27 Patient is scheduled for trach in OR today. Sedated and intubated. Heparin drip is off for trach. 11/28 Patient s/p trach yesterday. Sedated with Diprivan and Fentanyl. Afebrile. On PRVC with PEEP; 10 and FIO2 50% 11/29 No events overnight. Sedated and on ventilator via trach. For PEG tube placement today. Heparin drip on hold. 11/30: Currently afebrile. MAXIMUM TEMPERATURE 100. Positive BM via fecal containing device. Tube feeds on hold secondary to plan PEG tube placement today. Heparin drip on hold as well. 12/01: Status post PEG tube placement yesterday per IR. Heparin drip and tube feeds restarted today. Restarting insulin detemir. Awake and alert and weakly follows commands on sedation Subjective 12/02: Tmax 99.3. Tube feeds restarted and tolerating. Awake and alert and weakly follows commands. Plan for MRI brain/C-spine a.m. 12/03. Objective Vital Signs Date Time Temp Pulse Resp B/P (MAP) Pulse Ox O2 Delivery O2 Flow Rate FiO2 12/02/16 08:40 95 40 12/02/16 08:00 99.3 74 18 123/80 (94) 11/29/16 08:06 Ventilator Intake and Output 12/02/16 12/02/16 12/03/16 08:00 16:00 00:00 Intake Total 1084 ml Output Total 800 ml Balance 284 ml Result Diagram: 12/02/16 0325 12/02/16 0325 Other Results Microbiology Date/Time Source Procedure Growth Status 11/23/16 19:26 Blood Peripheral Aerobic Blood Culture - Final NO GROWTH IN 5 DAYS Complete 11/23/16 19:26 Blood Peripheral Anaerobic Blood Culture - Final NO GROWTH IN 5 DAYS Complete 11/08/16 14:15 Stool Stool Stool Occult Blood (TYLER) - Final HEMOCCULT NEGATIVE Complete 11/27/16 09:55 Sputum Endotracheal Gram Stain - Final Complete 11/27/16 09:55 Sputum Culture - Final Klebsiella Pneumoniae Stenotrophomonas Maltophilia Pseudomonas Aeruginosa Complete 11/11/16 01:15 Urine Catheterized Urine Urine Culture - Final Ana Albicans Complete Imaging Last Impressions Gastrostomy Tube Placement 11/30/16 0000 Signed Impressions: Service Date/Time: Wednesday, November 30, 2016 12:22 - CONCLUSION: Uncomplicated gastrostomy tube placement as above. Jorge Jolly MD Chest X-Ray 11/30/16 0000 Signed Impressions: Service Date/Time: Wednesday, November 30, 2016 03:55 - CONCLUSION: Progression in the bilateral pleural effusions and bibasilar pulmonary infiltrates. Fito Mar Jr., MD Abdomen X-Ray 11/30/16 0000 Signed Impressions: Service Date/Time: Wednesday, November 30, 2016 09:43 - CONCLUSION: 1. No definite nasogastric catheter is identified. Repeat examination centered higher in the thorax may be performed for more definitive evaluation. Consider repositioning the nasogastric catheter prior to repeat imaging. Nico Vaughan MD Brain MRI 11/26/16 0000 Signed Impressions: Service Date/Time: Saturday, November 26, 2016 19:52 - CONCLUSION: 1. Small focal signal abnormality in the superior medial left frontal lobe. This is nonspecific. This could be the sequela from prior insult such as a contusion or small infarct. An acute infarct is not seen. A small underlying lesion could have a similar appearance. One could perform a contrast-enhanced study to determine if there is any enhancement associated with this region. 2. There are a few scattered minimal punctate areas of demyelination seen not expected for the patient's age. 3. Sinus disease. Jayson Soto MD Lower Extremity Ultrasound 11/09/16 0000 Signed Impressions: Service Date/Time: Wednesday, November 09, 2016 14:13 - CONCLUSION: Normal examination. Jayson Manning MD Liver Ultrasound 11/09/16 0000 Signed Impressions: Service Date/Time: Wednesday, November 09, 2016 13:58 - CONCLUSION: Sono dense liver without duct dilatation. 4 mm common duct. Ward Kim MD FACR Chest CT 11/06/16 0000 Signed Impressions: Service Date/Time: Sunday, November 06, 2016 11:24 - CONCLUSION: 1. Dense bilateral posterior lower lobe airspace consolidation consistent with aspiration versus less likely pneumonia. 2. Linear consolidation in the right middle lobe consistent with atelectasis versus aspiration. 3. Trace left and small right pleural effusions. 4. Support lines and tubes in good position. 5. Prominent coronary artery calcifications. Nico Vaughan MD Head CT 11/05/16 0000 Signed Impressions: Service Date/Time: Saturday, November 05, 2016 21:43 - CONCLUSION: 1. No acute intracranial abnormalities. Pansinus fluid opacification. Cristofer De Santiago MD Carotid Artery Ultrasound 10/25/16 0000 Signed Impressions: Service Date/Time: September 08:27 - CONCLUSION: Mild to moderate plaque in both carotid systems with less than 40%% diameter stenosis by velocity criteria. Jhonathan Dietz MD CT Angiography 10/25/16 0000 Signed Impressions: Service Date/Time: , October 25, 2016 06:12 - CONCLUSION: 1. Negative for pulmonary embolism. 2. There is a fairly large area of masslike consolidation in the medial right lung involving posterior segment right upper lobe and medial aspect of right lower lobe. There is associated right hilar and mediastinal adenopathy measuring up to 2.1 cm. Differential diagnosis includes pneumonia or underlying lung neoplasm. Close followup imaging recommended after treatment for pneumonia, to assess for underlying mass. Cristofer De Santiago MD Objective Remarks GENERAL: 56-year-old male, critically ill currently on ventilator via tracheostomy SKIN: Warm and dry. Positive intertrigo HEAD: Atraumatic. Normocephalic. EYES: Pupils equal and round about 3 mm bilaterally and reactive. No scleral icterus. No injection or drainage. ENT: No nasal bleeding or discharge. Orotracheally intubated NECK: Trachea midline. No JVD. Tracheostomy site is clean dry and intact CARDIOVASCULAR: Tachycardia, IR. S1, S2 no S4. Diminished heart sounds. Without murmur, clicks, or rubs RESPIRATORY: Bilateral inspiratory and expiratory wheezes and coarse bilateral anterior and posterior rhonchi appreciated. Diminished. GASTROINTESTINAL: Abdomen soft, obese. Hypoactive bowel sounds appreciated MUSCULOSKELETAL: Extremities with trace lower extremity bilateral edema. No obvious deformities. NEUROLOGICAL: Eyes are open. Positive gag. Positive corneal reflex. Nods head appropriately to questions. Weakly follows commands bilateral upper extremities by squeezing hands Urinary Catheter: No Assessment to: Continue Date of Insertion: Nov 16, 2016 Line: PICC Side: Left Location: Antecubital A/P Assessment and Plan Neuro/Psych: CIM/SHEFALI s/p Neuromuscular paralysis for Prone therapy Agitated Delirium, Metabolic Encephalopathy Syncope Currently on Diprivan at 15 g per minute and,Fentanyl drip at 250 mg an hour for sedation and vent synchrony.. Will wean today as tolerated Start liquid oxycodone 5 mg every 6 per tube Goal of RASS -2 , Daily sedation vacation MRI brain 11/26: Small focal signal abnormality in the superior medial left frontal lobe.This could be the sequela from prior insult such as a contusion or small infarct. An acute infarct is not seen. Neuro has followed-Dr. Rdz. MRI brain and C-spine when clinically stable prn hydromorphone for breakthrough. Haloperidol 5mg iv q4h prn for agitation. Brain CT on admission revealed no acute intracranial findings, CT brain 11/05- no acute findings. opacification of sinuses. Carotid ultrasound less than 50% stenosis bilaterally EEG 11/20: No seizure activity. EEG 11/09: severe encephalopathy PT/OT for range of motion Plan for MRI brain/C-spine 12/03 per neurology CV: Atrial fib/ flutter with RVR Hypertension- On Amiodarone 200mg Q12, Digoxin 0.125 mg daily(Dig. level 0.5 on 12/01). Repeat in a.m. On PO diltiazem 90 mg PO q6hr, metoprolol 50mg Q6, Clonidine 0.2mg Q8 for hypertension and Atrial fib/flutter Resume IV heparin for anticoagulation Repeat echo with bubble study: 11/22: No shunt seen Echo 10/25 EF 60-65% Resp: Acute hypoxemic Respiratory failure - severe and persistent. s/p trach 11/27 Spontaneous Right sided PTX 2nd barotrauma Severe ARDS COPD exacerbation Pneumonia most likely community-acquired Obesity hypoventilation syndrome Tobacco use disorder On PRVC RR 16, TV 650, IT: 1.3, PEEP: 6, FIO2 40% Albuterol/ipratropium aerosols every 4 hours of albuterol aerosols every 2 hours. Dyspnea Ventilator bundle Continue with vent support keep sat >92% s/p trach 11/[address] Martin #8 Shiley s/p 20Fr CT placed for right PTX 11/23, monitor CT drainage- 45 cc past [address] pulmonary angio revealed no pulmonary embolus. Masslike consolidation in the posterior right upper lobe and medial right lower lobe. Lymphadenopathy to 1 cm right hilum and subcarinal. Atelectasis left lower lobe. Discontinued Prone therapy 11/02/16. Budesonide 0.5 mg/2 mL aerosols twice a day. Methylprednisolone 40 mg IV daily Pulmonary/Dr. Wynne following GI: Morbid Obesity Elevated LFT's- now within normal. PEG tube placement 11/30 liver: No ductal dilatation Tube feeds resumed Vital high protein 1.5 at 40ml/hr Famotidine 20 milligrams mg twice a day for GI prophylaxis /renal: Hyponatremia Monitor renal function, I/O's, electrolytes replacement per protocol. Endo: Hyperglycemia- SSI Q6h with Regular Insulin mild protocol for glycemic control. Previously insulin detemir 62 units twice a day. Restarted 15 units twice a day 12/01 . Heme: Normocytic anemia Leukocytosis Monitor CBC, coags- patient is on heparin drip ID: Severe sepsis HAP Continue abx(piperacillin/tazobactam and is sulfamethoxazole/trimethoprim 800/ 160 2 tablets 3 times a day) Monitor for signs of infections ( Fever, WBC) WBC is trending down, afebrile. Sputum: Klebsiella, Stenotrophomonas and Pseudomonas 11/27 Sputum cx 11/23: Kleb, Pseudomonas, Currently on piperacillin/tazobactam s/p (ceftriaxone and fluconazole course). ID is following-Dr. Patel s/p ceftriaxone 11/02-11/09 for Enterobacter pneumonia. Repeat sputum Klebsiella sensitive to Rocephin 10/29/16-Enterobacter in sputum, 11/06/16, 11/10 sputum- Klebsiella Urine Legionella and pneumococcal antigens negative and influenza negative C-diff PCR is negative Access RUE PICC placed 11/05 through 11/15 replaced 11/16 with left upper extremity PICC Prophylaxis - GI, famotidine - DVT - IV heparin gtt 9/15 Doppler US LE negative for DVT Palliative care is following Critical Care: The total critical care time was 30 minutes. Time to perform other separately billable procedures was not included in the critical care time. Ubaldo Story MD Dec 02, 2016 09:57
[2016-12-02] MEDS: HEPARIN 25,000 UNITS-D5W 250 ML - PREMIX IV SCH (09:58)
[2016-12-02] MEDS: oxyCODONE HCL ORAL CONC 20 MG/ML SYRINGE PEG SCH ×3 (10:33→20:41)
[2016-12-02 14:17] LABS: APTT (PATIENT) 52.5 SEC (24.3-30.1)
[2016-12-02 21:00] LABS: APTT (PATIENT) 50.7 SEC (24.3-30.1)
[2016-12-02] MEDS: METOPROLOL TARTRATE 5 MG/5 ML VIAL IV PUSH PRN (23:14)
[2016-12-03] VITALS (38 sets, daily range): BP systolic 97–234; BP diastolic 58–130; PULSE 64–129; RESP 0–59; TEMP 97.6–99.6; O2SAT 88–100
[2016-12-03] MEDS: HEPARIN 25,000 UNITS-D5W 250 ML - PREMIX IV SCH ×2 (00:52→17:15)
[2016-12-03] MEDS: METOPROLOL TARTRATE 5 MG/5 ML VIAL IV PUSH PRN ×4 (01:37→20:55)
[2016-12-03] MEDS: INSULIN NovoLIN REGULAR SUPPLEMENTAL SCALE SQ SCH ×4 (02:00→20:00)
[2016-12-03] MEDS: RESP: ALBUTEROL 2.5 MG/IPRATROPIUM 0.5 MG NEB (SCH) NEB ×6 (03:34→22:37)
[2016-12-03] MEDS: CHLORHEXIDINE GLUCONATE 2 % 1 PACK (2 CLOTHS) TOP SCH (04:00)
[2016-12-03 05:32] LABS: AUTOMATED NEUTROPHIL # 14.9 TH/MM3 (1.8-7.7); BASOPHIL # 0.2 TH/MM3 (0-0.2); BASOPHIL % 1.2 % (0.0-2.0); EOSINOPHIL % 0.1 % (0.0-4.0); HEMATOCRIT 39.3 % (39.0-51.0); LYMPH % 4.6 % (9.0-44.0); LYMPHOCYTE # 0.8 TH/MM3 (1.0-4.8); MEAN CELL VOLUME 93.8 FL (80.0-100.0); MEAN CORPUSCULAR HEMOGLOBIN 30.6 PG (27.0-34.0); MEAN CORPUSCULAR HGB CONC 32.7 % (32.0-36.0); MONO % 3.6 % (0.0-8.0); NEUT % 90.5 % (16.0-70.0); PLATELET COUNT 346 TH/MM3 (150-450); RED BLOOD COUNT 4.19 MIL/MM3 (4.50-5.90); RED CELL DISTRIBUTION WIDTH 14.9 % (11.6-17.2); WHITE BLOOD COUNT 16.5 TH/MM3 (4.0-11.0)
[2016-12-03 05:38] LABS: HEMO FLAGS AUTO DIFF
[2016-12-03] MEDS: cloNIDine HCL 0.2 MG TAB OG-TUBE SCH ×3 (05:39→20:55)
[2016-12-03] MEDS: DILTIAZEM HCL 90 MG TAB PO SCH ×4 (05:39→22:41)
[2016-12-03] MEDS: oxyCODONE HCL ORAL CONC 20 MG/ML SYRINGE PEG SCH ×4 (05:39→20:55)
[2016-12-03] MEDS: SULFAMETHOXAZOLE-TRIMETHOPRIM DS 800-160 MG TAB PO SCH ×3 (05:39→20:55)
[2016-12-03] MEDS: PIPERACIL-TAZO 4.5 GM PREMIX 100 ML IV SCH ×4 (05:39→22:41)
[2016-12-03] MEDS: METOPROLOL TARTRATE 50 MG TAB PO SCH ×4 (05:39→22:41)
[2016-12-03 05:43] LABS: APTT (PATIENT) 47.9 SEC (24.3-30.1)
[2016-12-03 05:51] LABS: ANION GAP 6 MEQ/L (5-15); AST (GOT) 14 U/L (15-37); BICARBONATE 28.9 MEQ/L (21.0-32.0); BLOOD UREA NITROGEN 14 MG/DL (7-18); CHLORIDE 97 MEQ/L (98-107); GLOMERULAR FILTRATION RATE 559 ML/MIN (>89); MAGNESIUM 1.8 MG/DL (1.5-2.5); POTASSIUM 4.2 MEQ/L (3.5-5.1); SODIUM (NA) 132 MEQ/L (136-145)
[2016-12-03 05:57] LABS: ALKALINE PHOSPHATASE 72 U/L (45-117); ALT (GPT) 58 U/L (12-78); TOTAL BILIRUBIN ADULT 0.5 MG/DL (0.2-1.0)
[2016-12-03] MEDS: fentaNYL DRIP 250 ML IV PRN (06:20)
[2016-12-03 06:48] LABS: BANDS 6 % (0-6); METAMYELOCYTES 2 % (0-1); MYELOCYTES 4 % (0-0); NEUTROPHIL # MANUAL DIFF 15.3 TH/MM3 (1.8-7.7); POLYS (SEG NEUTROPHILS) 81 % (16-70); WBC DIFF SAMPLE 100
[2016-12-03 06:49] LABS: PLATELET ESTIMATE SMEAR NORMAL (NORMAL); PLATELET MORPHOLOGY NORMAL (NORMAL); SCAN/DIFF FINAL DIFF MANUAL
[2016-12-03] MEDS: RESP: BUDESONIDE 0.5 MG/2 ML NEB NEB SCH ×2 (07:20→19:45)
[2016-12-03] MEDS: PROPOFOL 1000 MG/100 ML IV PRN (07:47)
[2016-12-03] MEDS: INSULIN DETEMIR 100 UNITS/ML VIAL SQ SCH ×2 (09:00→20:55)
--- NOTE | 2016-12-03 09:10 | HHI.CCPN ---
Subjective Remarks/Hospital Course 56-year-old very pleasant gentleman with past medical history of COPD, and hypertension presents complaining of shortness of breath and nausea, generalized fatigue and chills for 2 days. He thinks it has been from being out in the heat. Denies any fever, chest pain, vomiting, abdominal pain, focal weakness or numbness. In the emergency department his saturation was in mid 80s on arrival with auditory wheezing and tachypnea. He was placed on 4 liters of NC and saturating in the low 90. He does not use oxygen at home. He also mentioned 2 days ago, he came home and was sitting in a chair and was taking his shoes off when he passed out. States he woke up and was still on the chair. This has never happen before. 10/25: Patient intubated secondary to increasing oxygen requirements, altered mental status. Discussed with son. Somewhat hypertensive post intubation. 10/26: Placed on rotaprone bed last evening. Flolan initiated. Saturations improved. Afebrile. Remains on Nimbex drip. 10/27: T max 99.7. Tolerated on not prone position 2 hours yesterday. Tolerating trickle feeds. FiO2 down to 55% 10/28: Tmax 99.9. When unprone for chest x-ray this a.m. desaturated. Currently on 90% FiO2. Actually hypertensive. No bowel movements. Remains paralyzed 10/29: Remains intubated sedated on continuous Prone therapy Except for chest x- ray. Fever 100.8. Panculture requested. Zyvox added. Continue IV sedation with propofol and fentanyl and Versed, neuromuscular paralysis with Nimbex 10/30: Prone cycle changed to 8 hr prone, 1 hr supine from 10/29. Due to hypoxia will continue with same cycle today. Chest x-ray remains unchanged. Patient remains severely hypoxemic FiO2 at 75% PEEP at 16. WBC count worsened to 18. Remains neuromuscularly paralyzed. 10/31: Patient remains critically ill but stable. Oxygen saturation 95% on 55 of FiO2 and PEEP of 16. Reduce PEEP to 14, FiO2 to 50% and start weaning Flolan. Increase supine time to 4 hours, reduce Prone time to 6 hours 11/01: Patient remains intubated sedated critically ill on neuromuscular paralysis. FiO2 reduced to 50, I will attempt PEEP wean gradually to 12 today. Prone/supine cycles will be changed to 6 hours each 11/02: FiO2 remains at 50%, PEEP reduced from 14 to 12 today, TV increased to 600 and RR to 20, in anticipation of discontinuing prone therapy, which will be DCd today. Off Flolan for 2 days 11/03: off pronation. fio2 up to 65% , peep 12. agitation causing desaturation. minimal improvements. 11/04: good diuresis yesterday, but despite that, fio2 persists at 65% and spo2 decreasing to 91% today. no real improvements and some worsening of pulmonary function despite ongoing aggressive therapies. still not safe for SBT given hypoxia. also severely hypertensive this morning. 11/05: continues to diurese well and Cr still at baseline. fio2 at 90% however, and no clinical improvements in mental status or hypoxia. still unsafe for SBT given hypoxemia. off pathway. hypertension under much better control. poor neuro status is concerning. 11/06: Remains severely hypoxemic. FiO2 was 100% PEEP 14. I reduce FiO2 to 90% after increasing PEEP to 16. Developed a flutter with RVR overnight, currently on Cardizem drip. Unable to do SBT due to very high settings 11/07: Remains hypoxemic and but able to wean FiO2 down to 80% with PEEP of 16. Remains unresponsive on sedation. Unable to trach due to his high vent settings and high FiO2. Remains on Cardizem and 15 mg per hour, with rate controlled a flutter. We'll start by mouth Cardizem in an attempt to wean IV Cardizem 11/08: Remains critically ill hypoxic but FiO2 now weaned to 60%, PEEP remains at 16. Very heavily sedated no withdrawal to pain. Will hold all continuos sedation. Sputum culture with Klebsiella sensitive to Rocephin. A flutter persistent, will start IV heparin 11/09 Patient is sedated with Diprivan and intubated, On Cardizem drip 15mg/hr for Aflutter. Heparin drip stated yesterday. 11/10 Patient remains sedated and intubated. On Heparin drip. Persistent fever with Tmax 102.5. ETT was replaced yesterday. 11/11 Patient was placed on Cardizem and amio drips overnight for Afib with RVR. Sedated with Diprivan and intubated. On Heparin drip. T;99.3 this morning. 11/12 Patient remains intubated and sedated with Diprivan. On Cardizem drip 15mg/ hr. Afebrile, Tmax 100.6 11/13 Patient is sedate with Diprivan and intubated. In Afib with RVR now on Amio drip. Tmax 100,4 11/14 Remains intubated sedated with propofol and fentanyl. Afib rate controlled , remains on amiodarone and Cardizem gtt. Fio2 remains high at 70%, PEEP 12. CXR persistent bibasilar infiltrates/effusion 11/15: Currently sedated with propofol and fentanyl drips. Currently in A. fib/ flutter on amiodarone drip and Cardizem drip. PEEP increased to 14. FiO2 65. 11/16: Tmax 100.1. Patient more alert and tachycardic this AM. Adding midazolam gtt for sedation and currently tolerating tube feeding. Positive BM. PEEP to 12. FiO2 75% 11/17: Afebrile. FiO2 down to 60%. PEEP set 12. Multiple tracheostomy hopefully on Saturday. Heart rate better control. 11/18: Afebrile. Discontinuing amiodarone drip today and switching to oral. FiO2 between 60 and 70%. Restarting epoprostenol in attempt to get FiO2 down to 50% for tracheostomy tomorrow 11/19 No events overnight. Sedated with Diprivan, Fentanyl and versed. Still requiring high O2 - on PRVC with PEEP;12 and FIO2 70%. Afebrile. 11/20 Patient remains sedated with Diprivan, versed, Fentanyl and intubated. On PRVC with PEEP: 12, FIO2 50% , sats 88-90%. On Heparin drip. 11/21: Tmax 99.4. Tolerating tube feeds. Remains on heparin drip. FiO2 down to 55%. PEEP of 10. Eyes open blinks spontaneously. Does squeeze and weakly on left side with encouragement 11/22: Intubated heavily sedated. FiO2 50%, remains on Flolan. PEEP 10. Bumex 1 mg 1 and Diamox 500 mg 1 IV. She will negative balance. Heparinized tube feeds on hold for tracheostomy today at 12. Remains in atrial flutter 11/23 Patient remains sedated with Diprivan, Fentanyl, Versed and intubated. On Heparin drip. For CT guided thoracentesis today. On APRV 11/24 Patient remains sedated and intubated. 20Fr CT placed yesterday for right sided PTX. Spiked fever with T 101.6. Remains on Heparin drip. 11/25 Patient remains intubated with Diprivan, fentanyl and intubated. On PRVC with PEEP: 10, FIO2 50%. Afebrile. 11/26 Patient is sedated with Diprivan, Fentanyl and intubated. Afebrile. On Heparin drip. On PRVC with PEEP: 10, FIO2 60% 11/27 Patient is scheduled for trach in OR today. Sedated and intubated. Heparin drip is off for trach. 11/28 Patient s/p trach yesterday. Sedated with Diprivan and Fentanyl. Afebrile. On PRVC with PEEP; 10 and FIO2 50% 11/29 No events overnight. Sedated and on ventilator via trach. For PEG tube placement today. Heparin drip on hold. 11/30: Currently afebrile. MAXIMUM TEMPERATURE 100. Positive BM via fecal containing device. Tube feeds on hold secondary to plan PEG tube placement today. Heparin drip on hold as well. 12/01: Status post PEG tube placement yesterday per IR. Heparin drip and tube feeds restarted today. Restarting insulin detemir. Awake and alert and weakly follows commands on sedation Subjective 12/02: Tmax 99.3. Tube feeds restarted and tolerating. Awake and alert and weakly follows commands. Plan for MRI brain/C-spine a.m. 12/03. 12/03: Patient is awake. Tolerating PRVC, very weakly wiggling cedric toes. MRI today Objective Vital Signs Date Time Temp Pulse Resp B/P (MAP) Pulse Ox O2 Delivery O2 Flow Rate FiO2 12/03/16 08:18 97 40 12/03/16 06:39 18 12/03/16 06:00 104 12/03/16 04:00 98.6 185/111 (135) 11/29/16 08:06 Ventilator Intake and Output 12/03/16 12/03/16 12/04/16 08:00 16:00 00:00 Intake Total 1386 ml 17 ml Output Total 1320 ml Balance 66 ml 17 ml Result Diagram: 12/03/16 0445 12/03/16 0445 Imaging Last Impressions Gastrostomy Tube Placement 11/30/16 Signed Impressions: Service Date/Time: Wednesday, November 30, 2016 12:22 - CONCLUSION: Uncomplicated gastrostomy tube placement as above. Jorge Jolly MD Chest X-Ray 11/30/16 Signed Impressions: Service Date/Time: Wednesday, November 30, 2016 03:55 - CONCLUSION: Progression in the bilateral pleural effusions and bibasilar pulmonary infiltrates. Fito Mar Jr., MD Abdomen X-Ray 11/30/16 Signed Impressions: Service Date/Time: Wednesday, November 30, 2016 09:43 - CONCLUSION: 1. No definite nasogastric catheter is identified. Repeat examination centered higher in the thorax may be performed for more definitive evaluation. Consider repositioning the nasogastric catheter prior to repeat imaging. Nico Vaughan MD Brain MRI 11/26/16 Signed Impressions: Service Date/Time: Saturday, November 26, 2016 19:52 - CONCLUSION: 1. Small focal signal abnormality in the superior medial left frontal lobe. This is nonspecific. This could be the sequela from prior insult such as a contusion or small infarct. An acute infarct is not seen. A small underlying lesion could have a similar appearance. One could perform a contrast-enhanced study to determine if there is any enhancement associated with this region. 2. There are a few scattered minimal punctate areas of demyelination seen not expected for the patient's age. 3. Sinus disease. Jayson Soto MD Lower Extremity Ultrasound 11/09/16 Signed Impressions: Service Date/Time: Wednesday, November 09, 2016 14:13 - CONCLUSION: Normal examination. Jayson Manning MD Liver Ultrasound 11/09/16 Signed Impressions: Service Date/Time: Wednesday, November 09, 2016 13:58 - CONCLUSION: Sono dense liver without duct dilatation. 4 mm common duct. Ward Kim MD FACR Chest CT 11/06/16 Signed Impressions: Service Date/Time: Sunday, November 06, 2016 11:24 - CONCLUSION: 1. Dense bilateral posterior lower lobe airspace consolidation consistent with aspiration versus less likely pneumonia. 2. Linear consolidation in the right middle lobe consistent with atelectasis versus aspiration. 3. Trace left and small right pleural effusions. 4. Support lines and tubes in good position. 5. Prominent coronary artery calcifications. Nico Vaughan MD Head CT 11/05/16 0000 Signed Impressions: Service Date/Time: Saturday, November 05, 2016 21:43 - CONCLUSION: 1. No acute intracranial abnormalities. Pansinus fluid opacification. Cristofer De Santiago MD Carotid Artery Ultrasound 10/25/16 0000 Signed Impressions: Service Date/Time: September 08:27 - CONCLUSION: Mild to moderate plaque in both carotid systems with less than 40%% diameter stenosis by velocity criteria. Jhonathan Dietz MD CT Angiography 10/25/16 0000 Signed Impressions: Service Date/Time: September 06:12 - CONCLUSION: 1. Negative for pulmonary embolism. 2. There is a fairly large area of masslike consolidation in the medial right lung involving posterior segment right upper lobe and medial aspect of right lower lobe. There is associated right hilar and mediastinal adenopathy measuring up to 2.1 cm. Differential diagnosis includes pneumonia or underlying lung neoplasm. Close followup imaging recommended after treatment for pneumonia, to assess for underlying mass. Cristofer De Santiago MD Objective Remarks GENERAL: 56-year-old male, critically ill currently on ventilator via tracheostomy SKIN: Warm and dry. Positive intertrigo HEAD: Atraumatic. Normocephalic. EYES: Pupils equal and round about 3 mm bilaterally and reactive. No scleral icterus. No injection or drainage. ENT: No nasal bleeding or discharge. Orotracheally intubated NECK: Trachea midline. No JVD. Tracheostomy site is clean dry and intact CARDIOVASCULAR: Tachycardia, IR. S1, S2 no S4. Diminished heart sounds. Without murmur, clicks, or rubs RESPIRATORY: Bilateral mild expiratory wheezes and coarse bilateral anterior rhonchi appreciated. GASTROINTESTINAL: Abdomen soft, obese. Hypoactive bowel sounds appreciated MUSCULOSKELETAL: Extremities with trace lower extremity bilateral edema. No obvious deformities. NEUROLOGICAL: Eyes are open. Positive gag. Nods head appropriately to questions. Weakly follows commands bilateral upper extremities by squeezing hands, wiggles toes Date of Insertion: Nov 16, 2016 Line: PICC Side: Left Location: Antecubital A/P Assessment and Plan Neuro/Psych: CIM/SHEFALI s/p Neuromuscular paralysis for Prone therapy Agitated Delirium, Metabolic Encephalopathy Syncope Currently on Diprivan at 15 g per minute and,Fentanyl drip at 250 mg an hour for sedation and vent synchrony.DC all continuos sedation today 12/03/16 Continue liquid oxycodone 5 mg every 6 per tube. prn hydromorphone, fentanyl for breakthrough. Haloperidol 5mg iv q4h prn for agitation. Goal of RASS -1, Daily sedation vacation MRI brain 11/26: Small focal signal abnormality in the superior medial left frontal lobe.This could be the sequela from prior insult such as a contusion or small infarct. No acute infarct Neuro has followed-Dr. Rdz. MRI brain and C-spine today Brain CT on admission revealed no acute intracranial findings, CT brain 11/05- no acute findings. opacification of sinuses. Carotid ultrasound less than 50% stenosis bilaterally EEG 11/20: No seizure activity. EEG 11/09: severe encephalopathy PT/OT for range of motion CV: Atrial fib/ flutter with RVR Hypertension- On Amiodarone 200mg Q12, Digoxin 0.125 mg daily(Dig. level 0.5 on 12/01). Repeat in a.m. On PO diltiazem 90 mg PO q6hr, metoprolol 50mg Q6, Clonidine 0.2mg Q8 for hypertension and Atrial fib/flutter IV heparin for anticoagulation. Repeat echo with bubble study: 11/22: No shunt seen Echo 10/25 EF 60-65% Resp: Acute hypoxemic Respiratory failure - severe and persistent. s/p trach 11/27 Spontaneous Right sided PTX 2nd barotrauma COPD exacerbation Pneumonia most likely community-acquired Obesity hypoventilation syndrome Tobacco use disorder On PRVC RR 16, TV 650, IT: 1.3, PEEP: 6, FIO2 40% Start CPAP trials with TP for 2 hours if tolerated Albuterol/ipratropium aerosols every 4 hours of albuterol aerosols every 2 hours. Dyspnea Ventilator bundle s/p trach 11/[address] Martin #8 Verito s/p 20Fr CT placed for right PTX 11/23, monitor CT drainage- 45 cc past [address] pulmonary angio revealed no pulmonary embolus. Masslike consolidation in the posterior right upper lobe and medial right lower lobe. Lymphadenopathy to 1 cm right hilum and subcarinal. Atelectasis left lower lobe. Discontinued Prone therapy 11/02/16. Budesonide 0.5 mg/2 mL aerosols twice a day. Methylprednisolone 40 mg IV daily Pulmonary/Dr. Wynne following GI: Morbid Obesity Elevated LFT's- now within normal. PEG tube placement 11/30 US liver: No ductal dilatation Tube feeds resumed Vital high protein 1.5 at 40ml/hr Famotidine 20 milligrams mg twice a day for GI prophylaxis /renal: Hyponatremia Monitor renal function, I/O's, electrolytes replacement per protocol. Endo: Hyperglycemia- SSI Q6h with Regular Insulin mild protocol for glycemic control. Previously insulin detemir 62 units twice a day. Restarted 15 units twice a day 12/01 . Heme: Normocytic anemia Leukocytosis Monitor CBC, coags- patient is on heparin drip ID: Severe sepsis HAP Continue abx(piperacillin/tazobactam and is sulfamethoxazole/trimethoprim 800/ 160 2 tablets 3 times a day) WBC is trending down, afebrile. Sputum: Klebsiella, Stenotrophomonas and Pseudomonas 11/27 Sputum cx 11/23: Kleb, Pseudomonas, s/p (ceftriaxone and fluconazole course). ID is following-Dr. Patel s/p ceftriaxone 11/02-11/09 for Enterobacter pneumonia. Repeat sputum Klebsiella sensitive to Rocephin 10/29/16-Enterobacter in sputum, 11/06/16, 11/10 sputum- Klebsiella Urine Legionella and pneumococcal antigens negative and influenza negative C-diff PCR is negative Access RUE PICC placed 11/05 through 11/15 replaced 11/16 with left upper extremity PICC Prophylaxis - GI, famotidine - DVT - IV heparin gtt 11/09 Doppler US LE negative for DVT Palliative care is following Critical Care: Level 3 Roro Tyler MD Dec 03, 2016 09:10
[2016-12-03] MEDS: FAMOTIDINE 20 MG TAB NG SCH ×2 (09:13→20:55)
[2016-12-03] MEDS: DIGOXIN 0.125 MG TAB PO SCH (09:13)
[2016-12-03] MEDS: AMIODARONE 200 MG TAB OG-TUBE SCH ×2 (09:13→20:55)
[2016-12-03] MEDS: SODIUM CHLORIDE 0.9% FLUSH 10 ML FLUSH IV FLUSH SCH (09:15)
[2016-12-03] MEDS: SODIUM CHLORIDE 0.9% FLUSH 10 ML FLUSH SCH ×2 (09:15→20:54)
[2016-12-03] MEDS: SODIUM CHLORIDE 0.9% FLUSH 10 ML FLUSH IVF SCH (09:15)
[2016-12-03] MEDS: CHLORHEXIDINE 0.12% (ORAL KIT) 15 ML CUP MT SCH ×2 (09:16→20:00)
[2016-12-03] MEDS: ARTIFICIAL TEARS OPTH OINT 3.5 APPLIC/3.5 GM TUBO EACH EYE SCH ×2 (09:16→20:56)
[2016-12-03] MEDS: SODIUM PHOSPHATE INJ 30 MMOL in SODIUM CHLOR 0.9% 250 ML INJ 240 ML IV PRN (10:22)
[2016-12-03] MEDS: LABETALOL HCL 100 MG/20 ML VIAL IV PUSH PRN (11:20)
--- NOTE | 2016-12-03 11:29 | RADRPT ---
EXAM DATE/TIME: 12/03/2016 09:30 [facility] COMPARISON: CHEST SINGLE AP, November 30, 2016, 3:55. INDICATIONS : Respiratory disease. MEDICAL HISTORY : Chronic obstructive pulmonary disease. Hypertension. Hypercholesterolemia. SURGICAL HISTORY : None. ENCOUNTER: Subsequent ACUITY: 1 month PAIN SCORE: 0/10 LOCATION: chest FINDINGS: Trach tube is in good position. Central venous catheter expected location superior vena cava. The heart is enlarged with moderate interstitial edema present. Moderate bibasilar consolidative jalil nges are noted. Right chest tube is in good position. CONCLUSION: Stable chest without pneumothorax. Moderate bibasilar parenchymal changes. Ward Kim MD FACR on December 03, 2016 at 10:59 Board Certified Radiologist. This report was verified electronically.
--- NOTE | 2016-12-03 12:11 | HHI.HCPN ---
Reason for visit a. To assist with evaluation and management of symptoms including: pain, dyspnea, encephalopathy. b. To assist medical decision maker(s) with: better understanding of current medical conditions; weighing benefits/burdens of medical treatment options; making medical treatment decisions. . Subjective/Interval History Patient seen and examined in ICU. Discussed with nurse and Dr. Tyler. No family at bedside. Patient remains on mech vent via tracheostomy. FiO2 40%. No obvious signs of pain. Respirations unlabored on mech vent. Tmax 98.6. Intermittent tachycardia. WBC 16.5. Albumin 2.1. Sputum culture Klebsiella Pneumoniae, Pseudomonas aeruginosa, Stenotrophomonas maltophilia. Chest xray stable chest without pneumothorax, moderate bibasilar parenchymal changes. Off sedation. Patient nods yes/ no appropriately. Denies pain. Moving lower extremities. Weakly squeezes hands on commands. 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 . Family/friend interactions No family at bedside. Will call family once MRI complete. . Advance Directives Living Will: Never completed Health Care Surrogate: Never completed Durable Power of [place] Tube Tester: Never completed Advance Directive Specifics Health Care Surrogate(s): Patient is currently incapacitated, uncertain if he will regain capacity. Patient is single. Has 1 son (Drake Andrews) and 2 daughters (Ira Mcgovern and Krystyna Palma). According to [place] statutes, health care proxy decision- making would fall to the majority of adult children. Krystyna Roth and Drake wish to particpate. . Significant change in goals: FULL CODE. Goals remain aggressive. . Objective Vital Signs Date Time Temp Pulse Resp B/P (MAP) Pulse Ox O2 Delivery O2 Flow Rate FiO2 12/03/16 10:00 98.6 108 17 153/111 (125) 97 12/03/16 10:00 98.6 12/03/16 08:18 97 40 12/03/16 08:00 97.6 66 12 108/66 (80) 100 12/03/16 07:20 100 40 12/03/16 07:00 40 12/03/16 06:39 18 12/03/16 06:00 104 12/03/16 04:35 97 40 12/03/16 04:00 98.6 115 19 185/111 (135) 98 12/03/16 04:00 115 12/03/16 04:00 40 12/03/16 02:00 109 12/03/16 01:10 96 40 12/03/16 00:00 99.0 86 20 179/99 (125) 96 12/03/16 00:00 86 12/03/16 00:00 40 12/02/16 22:03 97 40 12/02/16 22:00 111 12/02/16 20:00 99.0 85 18 158/85 (109) 96 12/02/16 20:00 85 12/02/16 20:00 40 12/02/16 19:10 97 40 12/02/16 18:00 65 12/02/16 17:05 95 40 12/02/16 16:00 60 12/02/16 16:00 98.8 63 17 125/72 (89) 94 12/02/16 16:00 40 12/02/16 14:00 63 12/02/16 12:32 93 40 12/02/16 12:00 64 12/02/16 12:00 99.0 64 17 117/73 (88) 95 12/02/16 12:00 40 Intake & Output 12/03/16 12/03/16 06:59 18:59 Intake Total 1567 ml 170 ml Output Total 1320 ml Balance 247 ml 170 ml IV Total 827 ml 170 ml Tube Feeding 620 ml Other 120 ml Output Urine Total 1250 ml Chest Tube Drainage Total 70 ml # Bowel Movements 0 Physical Exam CONSTITUTIONAL/GENERAL: This is an overweight, critically ill patient, on mechanical ventilation. TUBES/LINES/DRAINS: tracheostomy, PEG, left upper PIC line, bilateral soft wrist restraints, Ashley Shield, Santiago catheter, SCDs, right chest tube. SKIN: Ecchymoses on upper extremities. Abrasion/ scab on right knee. Diaphoretic. EYES: eyes open, tracking. CARDIOVASCULAR: tachycardic, rate 108. RESPIRATORY/CHEST: Unlabored respirations on mech vent. FiO2 40%. Right chest tube. GASTROINTESTINAL: Abdomen soft, nondistended. Bowel sounds present. Tolerating tube feeding. GENITOURINARY: Without palpable bladder distension. Catheter in place. MUSCULOSKELETAL: Extremities with 2+ edema. NEUROLOGICAL: Eyes open, tracking, faintly squeezes bilateral hands on command. Moving bilateral LEs. PSYCHIATRIC: Awake, calm. . Diagnostic Tests Laboratory Laboratory Tests Test 12/01/16 04:40 12/01/16 17:05 12/01/16 23:05 12/02/16 03:25 White Blood Count 15.9 TH/MM3 (4.0-11.0) 13.9 TH/MM3 (4.0-11.0) Red Blood Count 3.91 MIL/MM3 (4.50-5.90) 3.65 MIL/MM3 (4.50-5.90) Hemoglobin 12.6 GM/DL (13.0-17.0) 11.2 GM/DL (13.0-17.0) Hematocrit 36.8 % (39.0-51.0) 34.4 % (39.0-51.0) Mean Corpuscular Volume 94.2 FL (80.0-100.0) 94.2 FL (80.0-100.0) Mean Corpuscular Hemoglobin 32.3 PG (27.0-34.0) 30.5 PG (27.0-34.0) Mean Corpuscular Hemoglobin Concent 34.3 % (32.0-36.0) 32.4 % (32.0-36.0) Red Cell Distribution Width 14.6 % (11.6-17.2) 14.9 % (11.6-17.2) Platelet Count 266 TH/MM3 (150-450) 275 TH/MM3 (150-450) Mean Platelet Volume 7.1 FL (7.0-11.0) 7.6 FL (7.0-11.0) Neutrophils (%) (Auto) 92.1 % (16.0-70.0) 90.1 % (16.0-70.0) Lymphocytes (%) (Auto) 3.5 % (9.0-44.0) 4.9 % (9.0-44.0) Monocytes (%) (Auto) 3.9 % (0.0-8.0) 4.6 % (0.0-8.0) Eosinophils (%) (Auto) 0.1 % (0.0-4.0) 0.2 % (0.0-4.0) Basophils (%) (Auto) 0.4 % (0.0-2.0) 0.2 % (0.0-2.0) Neutrophils # (Auto) 14.7 TH/MM3 (1.8-7.7) 12.6 TH/MM3 (1.8-7.7) Lymphocytes # (Auto) 0.6 TH/MM3 (1.0-4.8) 0.7 TH/MM3 (1.0-4.8) Monocytes # (Auto) 0.6 TH/MM3 (0-0.9) 0.6 TH/MM3 (0-0.9) Eosinophils # (Auto) 0.0 TH/MM3 (0-0.4) 0.0 TH/MM3 (0-0.4) Basophils # (Auto) 0.1 TH/MM3 (0-0.2) 0.0 TH/MM3 (0-0.2) CBC Comment AUTO DIFF AUTO DIFF Differential Total Cells Counted 100 100 Neutrophils % (Manual) 74 % (16-70) 68 % (16-70) Band Neutrophils % 15 % (0-6) 16 % (0-6) Lymphocytes % 4 % (9-44) 3 % (9-44) Monocytes % 2 % (0-8) 2 % (0-8) Neutrophils # (Manual) 14.9 TH/MM3 (1.8-7.7) 13.2 TH/MM3 (1.8-7.7) Metamyelocytes 4 % (0-1) 7 % (0-1) Myelocytes 1 % (0-0) 4 % (0-0) Nucleated Red Blood Cells 3 /100 WBC (0-0) Differential Comment FINAL DIFF MANUAL FINAL DIFF MANUAL Toxic Granulation 1+ (NORMAL) 1+ (NORMAL) Platelet Estimate NORMAL (NORMAL) Platelet Morphology Comment NORMAL (NORMAL) Tear Drop Cells 1+ (NORMAL) Activated Partial Thromboplast Time 25.9 SEC (24.3-30.1) 54.5 SEC (24.3-30.1) 60.4 SEC (24.3-30.1) 77.9 SEC (24.3-30.1) Blood Urea Nitrogen 11 MG/DL (7-18) 14 MG/DL (7-18) Creatinine LESS THAN 0.15 MG/DL LESS THAN 0.15 MG/DL Random Glucose 126 MG/DL (74-106) 120 MG/DL (74-106) Total Protein 5.0 GM/DL (6.4-8.2) 4.5 GM/DL (6.4-8.2) Albumin 1.7 GM/DL (3.4-5.0) 1.7 GM/DL (3.4-5.0) Calcium Level 6.5 MG/DL (8.5-10.1) 7.5 MG/DL (8.5-10.1) Phosphorus Level 2.0 MG/DL (2.5-4.9) 2.7 MG/DL (2.5-4.9) Magnesium Level 1.8 MG/DL (1.5-2.5) 2.0 MG/DL (1.5-2.5) Alkaline Phosphatase 66 U/L (45-117) 57 U/L (45-117) Aspartate Amino Transf (AST/SGOT) 18 U/L (15-37) 13 U/L (15-37) Alanine Aminotransferase (ALT/SGPT) 67 U/L (12-78) 53 U/L (12-78) Total Bilirubin 0.8 MG/DL (0.2-1.0) 0.3 MG/DL (0.2-1.0) Sodium Level 133 MEQ/L (136-145) 133 MEQ/L (136-145) Potassium Level 3.7 MEQ/L (3.5-5.1) 4.3 MEQ/L (3.5-5.1) Chloride Level 97 MEQ/L (98-107) 98 MEQ/L (98-107) Carbon Dioxide Level 27.6 MEQ/L (21.0-32.0) 28.7 MEQ/L (21.0-32.0) Anion Gap 8 MEQ/L (5-15) 6 MEQ/L (5-15) Estimat Glomerular Filtration Rate 690 ML/MIN (>89) 690 ML/MIN (>89) Protein Corrected Calcium 7.5 MG/DL (8.5-10.1) Digoxin Level 0.5 NG/ML (0.8-2.0) Test 12/02/16 13:30 12/02/16 20:10 12/03/16 04:45 Activated Partial Thromboplast Time 52.5 SEC (24.3-30.1) 50.7 SEC (24.3-30.1) 47.9 SEC (24.3-30.1) White Blood Count 16.5 TH/MM3 (4.0-11.0) Red Blood Count 4.19 MIL/MM3 (4.50-5.90) Hemoglobin 12.8 GM/DL (13.0-17.0) Hematocrit 39.3 % (39.0-51.0) Mean Corpuscular Volume 93.8 FL (80.0-100.0) Mean Corpuscular Hemoglobin 30.6 PG (27.0-34.0) Mean Corpuscular Hemoglobin Concent 32.7 % (32.0-36.0) Red Cell Distribution Width 14.9 % (11.6-17.2) Platelet Count 346 TH/MM3 (150-450) Mean Platelet Volume 7.3 FL (7.0-11.0) Neutrophils (%) (Auto) 90.5 % (16.0-70.0) Lymphocytes (%) (Auto) 4.6 % (9.0-44.0) Monocytes (%) (Auto) 3.6 % (0.0-8.0) Eosinophils (%) (Auto) 0.1 % (0.0-4.0) Basophils (%) (Auto) 1.2 % (0.0-2.0) Neutrophils # (Auto) 14.9 TH/MM3 (1.8-7.7) Lymphocytes # (Auto) 0.8 TH/MM3 (1.0-4.8) Monocytes # (Auto) 0.6 TH/MM3 (0-0.9) Eosinophils # (Auto) 0.0 TH/MM3 (0-0.4) Basophils # (Auto) 0.2 TH/MM3 (0-0.2) CBC Comment AUTO DIFF Differential Total Cells Counted 100 Neutrophils % (Manual) 81 % (16-70) Band Neutrophils % 6 % (0-6) Lymphocytes % 3 % (9-44) Monocytes % 4 % (0-8) Neutrophils # (Manual) 15.3 TH/MM3 (1.8-7.7) Metamyelocytes 2 % (0-1) Myelocytes 4 % (0-0) Differential Comment FINAL DIFF MANUAL Platelet Estimate NORMAL (NORMAL) Platelet Morphology Comment NORMAL (NORMAL) Red Cell Morphology Comment NORMAL (NORMAL) Blood Urea Nitrogen 14 MG/DL (7-18) Creatinine 0.18 MG/DL (0.60-1.30) Random Glucose 121 MG/DL (74-106) Total Protein 5.6 GM/DL (6.4-8.2) Albumin 2.1 GM/DL (3.4-5.0) Calcium Level 8.2 MG/DL (8.5-10.1) Phosphorus Level 2.2 MG/DL (2.5-4.9) Magnesium Level 1.8 MG/DL (1.5-2.5) Alkaline Phosphatase 72 U/L (45-117) Aspartate Amino Transf (AST/SGOT) 14 U/L (15-37) Alanine Aminotransferase (ALT/SGPT) 58 U/L (12-78) Total Bilirubin 0.5 MG/DL (0.2-1.0) Sodium Level 132 MEQ/L (136-145) Potassium Level 4.2 MEQ/L (3.5-5.1) Chloride Level 97 MEQ/L (98-107) Carbon Dioxide Level 28.9 MEQ/L (21.0-32.0) Anion Gap 6 MEQ/L (5-15) Estimat Glomerular Filtration Rate 559 ML/MIN (>89) Result Diagram: 12/03/16 0445 12/03/16 0445 Microbiology Microbiology Date/Time Source Procedure Growth Status 11/23/16 19:26 Blood Peripheral Aerobic Blood Culture - Final NO GROWTH IN 5 DAYS Complete 11/23/16 19:26 Blood Peripheral Anaerobic Blood Culture - Final NO GROWTH IN 5 DAYS Complete 11/08/16 14:15 Stool Stool Stool Occult Blood ([facility]) - Final HEMOCCULT NEGATIVE Complete 11/27/16 09:55 Sputum Endotracheal Gram Stain - Final Complete 11/27/16 09:55 Sputum Culture - Final Klebsiella Pneumoniae Stenotrophomonas Maltophilia Pseudomonas Aeruginosa Complete 11/11/16 01:15 Urine Catheterized Urine Urine Culture - Final Ana Albicans Complete Imaging Last Impressions Gastrostomy Tube Placement 11/30/16 0000 Signed Impressions: Service Date/Time: Wednesday, November 30, 2016 12:22 - CONCLUSION: Uncomplicated gastrostomy tube placement as above. Jorge Jolly MD Chest X-Ray 11/30/16 0000 Signed Impressions: Service Date/Time: Wednesday, November 30, 2016 03:55 - CONCLUSION: Progression in the bilateral pleural effusions and bibasilar pulmonary infiltrates. Fito Mar Jr., MD Abdomen X-Ray 11/30/16 0000 Signed Impressions: Service Date/Time: Wednesday, November 30, 2016 09:43 - CONCLUSION: 1. No definite nasogastric catheter is identified. Repeat examination centered higher in the thorax may be performed for more definitive evaluation. Consider repositioning the nasogastric catheter prior to repeat imaging. Nico Vaughan MD Brain MRI 11/26/16 0000 Signed Impressions: Service Date/Time: Saturday, November 26, 2016 19:52 - CONCLUSION: 1. Small focal signal abnormality in the superior medial left frontal lobe. This is nonspecific. This could be the sequela from prior insult such as a contusion or small infarct. An acute infarct is not seen. A small underlying lesion could have a similar appearance. One could perform a contrast-enhanced study to determine if there is any enhancement associated with this region. 2. There are a few scattered minimal punctate areas of demyelination seen not expected for the patient's age. 3. Sinus disease. Jayson Soto MD Lower Extremity Ultrasound 11/09/16 0000 Signed Impressions: Service Date/Time: Wednesday, November 09, 2016 14:13 - CONCLUSION: Normal examination. Jayson Manning MD Liver Ultrasound 11/09/16 0000 Signed Impressions: Service Date/Time: Wednesday, November 09, 2016 13:58 - CONCLUSION: Sono dense liver without duct dilatation. 4 mm common duct. Ward Kim MD FACR Chest CT 11/06/16 0000 Signed Impressions: Service Date/Time: Sunday, November 06, 2016 11:24 - CONCLUSION: 1. Dense bilateral posterior lower lobe airspace consolidation consistent with aspiration versus less likely pneumonia. 2. Linear consolidation in the right middle lobe consistent with atelectasis versus aspiration. 3. Trace left and small right pleural effusions. 4. Support lines and tubes in good position. 5. Prominent coronary artery calcifications. Nico Vaughan MD Head CT 11/05/16 0000 Signed Impressions: Service Date/Time: Saturday, November 05, 2016 21:43 - CONCLUSION: 1. No acute intracranial abnormalities. Pansinus fluid opacification. Cristofer De Satniago MD Carotid Artery Ultrasound 10/25/16 0000 Signed Impressions: Service Date/Time: September 08:27 - CONCLUSION: Mild to moderate plaque in both carotid systems with less than 40%% diameter stenosis by velocity criteria. Jhonathan Dietz MD CT Angiography 10/25/16 0000 Signed Impressions: Service Date/Time: September 06:12 - CONCLUSION: 1. Negative for pulmonary embolism. 2. There is a fairly large area of masslike consolidation in the medial right lung involving posterior segment right upper lobe and medial aspect of right lower lobe. There is associated right hilar and mediastinal adenopathy measuring up to 2.1 cm. Differential diagnosis includes pneumonia or underlying lung neoplasm. Close followup imaging recommended after treatment for pneumonia, to assess for underlying mass. Cristofer De Santiago MD Procedures * 11/30/16 - PEG tube placement * 11/27/16 - tracheostomy * 11/23/16 - right chest tube placement. * 11/10/16 - ETT replaced. * 11/04/16 - arterial line placement. * 10/25/16 - Intubation and central line placed. . Assessment and Plan Disease Oriented Problem List: (1) Acute respiratory failure (2) ARDS (adult respiratory distress syndrome) (3) COPD (chronic obstructive pulmonary disease) (4) Obesity hypoventilation syndrome (5) Anoxic encephalopathy (6) Metabolic encephalopathy (7) Atrial flutter (8) Leukocytosis (9) Sepsis (10) Hyperglycemia (11) Morbid obesity (12) Tobacco use (13) Hypertension Symptom Scale: (1) Pain 0-10 Scale: 0 Comment: Off all sedation. (2) Dyspnea 0-10 Scale: Unable to quantify Comment: on vent to trach. (3) Encephalopathy 0-10 Scale: Unable to quantify Pertinent Non-Medical Issues Psychosocial: notes indicate patient is single. Has one son and one daughter. Was living with his son prior to admission. Spiritual: unknown. Legal: Patient is currently incapacitated, uncertain if he will regain capacity. Patient is single. Has 1 son (Drake Andrews) and 2 daughters ( Ira Mcgovern and Krystyna Palma). According to [place] statutes, health care proxy decision-making would fall to the majority of adult children. Krystyna Roth and Drake wish to particpate. Ethical issues impacting care: no known concerns at this time. . Important Contacts * Ira Mcgovern, daughter/ HCP: [phone] (cell) or [phone] ext. [phone] (work) * Drake Andrews, son/ HCP: [phone] (cell) or [phone] (work) * Krystyna Palma, daughter/ HCP: [phone] * Drake Henry girlfriend: [phone] . . Prognosis Mr. Andrews is an unfortunate 56-year-old male who was admitted with respiratory distress, pneumonia, ARDS with prolonged hospitalization/mechanical ventilation still requiring high FI 02 and PEEP needs, unable to proceed with tracheostomy/ PEG tube given medical instability, high oxygen needs. Overall condition does not appear to be improving. . Code Status: Full Code Plan * Decision Maker: Patient is currently incapacitated, uncertain if he will regain capacity. Patient is single. Has 1 son (Drake Andrews) and 2 daughters ( Ira Mcgovern and Krystyna Palma). According to [place] statutes, health care proxy decision-making would fall to the majority of adult children. Krystyna Roth and Drake wish to particpate. * FULL CODE * Goals remain aggressive. Will call family after repeat MRI brain and C-spine imaging results available. * SYMPTOMS: Pain: potential sources of pain include COPD, intubation, prolonged hospitalization, bedbound status, chest tube, infection, etc. on fentanyl drip, intermittent grimacing during physical exam. Given underlying encephalopathy no new pain medication recommendations at this time. Dyspnea: remains on prolonged mechanical ventilation s/p trach. Encephalopathy: patient with possible anoxic encephalopathy. No new medication recommendations at this time. * Palliative care will continue to follow throughout hospital course to assist with symptom management and clarification of goals as needed. . Attestation To help prompt me to consider important information that might be impacting today's encounter and assessment, information from prior notes written by myself or my colleagues may have been "brought forward" into today's note. My signature on this note, however, is an attestation that I personally performed the exam, history, and/or decision-making noted today, and, unless otherwise indicated, the interactions with patient, family, and staff as well as the review of records all occurred today. I also attest that the listed assessment and stated plan reflect my best clinical judgment today based on the combination of historical information, prior notes, and today's exam/ interactions. When time spent is documented, it refers only to time spent today by the signer, or if indicated, combined time spent today by collaborating physician/nurse practitioner. Sandra Mccabe Dec 03, 2016 12:11
--- NOTE | 2016-12-03 14:35 | RADRPT ---
EXAM DATE/TIME: 12/03/2016 13:13 [facility] COMPARISON: MRI BRAIN W/O CONTRAST, November 26, 2016, 19:52. INDICATIONS : CVA. MEDICAL HISTORY : Chronic obstructive pulmonary disease. Hypertension. SURGICAL HISTORY : None. ENCOUNTER: Subsequent ACUITY: 2 weeks PAIN SCORE: Nonresponsive. LOCATION: Bilateral cranial TECHNIQUE: Multiplanar, multisequence MRI of the brain was performed without contrast. FINDINGS: CEREBRUM: The inversion recovery images again demonstrate a small area of increased T2 signal in the left front al cortex. There is no abnormal signal within this on the diffusion restricted images. No contrast wa s administered. There is no evidence of hemorrhage within this. The ventricles are normal in size and configuration. No extra-axial fluid collections are seen. WHITE MATTER: No significant signal abnormalities are seen in the white matter. POSTERIOR FOSSA: The cerebellum and brainstem are intact. The 4th ventricle is midline. The cerebellopontine angle is unremarkable. The cerebellar tonsils are normal in position. DIFFUSION IMAGING: No focal areas of restricted diffusion are seen. No evidence of acute infarction. EXTRACRANIAL: The visualized portions of the orbits and paranasal sinuses are unremarkable. CONCLUSION: 1. There is a small area of abnormal T2 signal in the left frontal cortex this is unchanged from the previous examination dated 11/26/16. This is nonspecific in appearance on the MRI. Differential consi derations would be a small area of gliosis versus an old area of contusion. Follow up examination in 6 months to document stability would be warranted. 2. No findings to indicate acute cortical infarction are identified. Román Kim MD on December 03, 2016 at 14:32 Board Certified Radiologist. This report was verified electronically.
--- NOTE | 2016-12-03 14:49 | RADRPT ---
EXAM DATE/TIME: 12/03/2016 13:13 [facility] COMPARISON: No previous studies available for comparison. INDICATIONS : Myelopathy. MEDICAL HISTORY : Chronic obstructive pulmonary disease. Hypertension. SURGICAL HISTORY : Trach ENCOUNTER: Subsequent ACUITY: 2 weeks PAIN SCORE: Nonresponsive. LOCATION: Bilateral neck region. TECHNIQUE: Multiplanar, multisequence MRI examination of the cervical spine was performed. FINDINGS: Examination is severely limited by the patient's large body habitus. There is a suggestion of increased signal in the midcervical cord at the C3 to C5 level. There is no obvious cord compression. CONCLUSION: Severely limited exam. I believe there is increased signal in the cervical cord mid C3 to mid C5. Ward Kim MD FACR on December 03, 2016 at 14:43 Board Certified Radiologist. This report was verified electronically.
[2016-12-03] MEDS: hydrALAZINE HCL 20 MG/ML VIAL IV PUSH PRN (22:41)
[2016-12-04] VITALS (19 sets, daily range): BP systolic 105–159; BP diastolic 53–109; PULSE 69–134; RESP 15–21; TEMP 97.5–99.1; O2SAT 92–98
[2016-12-04] MEDS: INSULIN NovoLIN REGULAR SUPPLEMENTAL SCALE SQ SCH ×4 (00:59→20:00)
[2016-12-04] MEDS: METOPROLOL TARTRATE 5 MG/5 ML VIAL IV PUSH PRN ×3 (01:47→11:40)
[2016-12-04] MEDS: hydrALAZINE HCL 20 MG/ML VIAL IV PUSH PRN (01:52)
[2016-12-04] MEDS: oxyCODONE HCL ORAL CONC 20 MG/ML SYRINGE PEG SCH ×4 (02:56→20:45)
[2016-12-04] MEDS: LISINOPRIL 10 MG TAB PO SCH ×2 (02:56→08:04)
[2016-12-04] MEDS: LABETALOL HCL 100 MG/20 ML VIAL IV PUSH PRN ×3 (03:00→11:05)
[2016-12-04] MEDS: CHLORHEXIDINE GLUCONATE 2 % 1 PACK (2 CLOTHS) TOP SCH (04:00)
[2016-12-04] MEDS: RESP: ALBUTEROL 2.5 MG/IPRATROPIUM 0.5 MG NEB (SCH) NEB ×3 (04:18→11:08)
[2016-12-04] MEDS: PIPERACIL-TAZO 4.5 GM PREMIX 100 ML IV SCH ×4 (04:31→23:54)
[2016-12-04] MEDS: DILTIAZEM HCL 90 MG TAB PO SCH ×3 (04:31→16:42)
[2016-12-04] MEDS: cloNIDine HCL 0.2 MG TAB OG-TUBE SCH ×3 (04:31→20:44)
[2016-12-04] MEDS: SULFAMETHOXAZOLE-TRIMETHOPRIM DS 800-160 MG TAB PO SCH ×3 (04:31→20:44)
[2016-12-04] MEDS: METOPROLOL TARTRATE 50 MG TAB PO SCH ×3 (04:31→16:42)
[2016-12-04 05:21] LABS: GLOMERULAR FILTRATION RATE 690 ML/MIN (>89)
[2016-12-04 05:23] LABS: APTT (PATIENT) 43.9 SEC (24.3-30.1)
[2016-12-04] MEDS: RESP: BUDESONIDE 0.5 MG/2 ML NEB NEB SCH ×2 (07:42→19:23)
[2016-12-04] MEDS: FAMOTIDINE 20 MG TAB NG SCH ×2 (08:04→20:44)
[2016-12-04] MEDS: AMIODARONE 200 MG TAB OG-TUBE SCH ×2 (08:04→20:44)
[2016-12-04] MEDS: predniSONE 20 MG TAB PO SCH (08:04)
[2016-12-04] MEDS: SODIUM CHLORIDE 0.9% FLUSH 10 ML FLUSH IV FLUSH SCH (08:05)
[2016-12-04] MEDS: SODIUM CHLORIDE 0.9% FLUSH 10 ML FLUSH SCH ×2 (08:05→20:44)
[2016-12-04] MEDS: SODIUM CHLORIDE 0.9% FLUSH 10 ML FLUSH IVF SCH (08:05)
[2016-12-04] MEDS: DIGOXIN 0.125 MG TAB PO SCH (08:05)
[2016-12-04] MEDS: INSULIN DETEMIR 100 UNITS/ML VIAL SQ SCH ×2 (08:05→20:45)
[2016-12-04] MEDS: ARTIFICIAL TEARS OPTH OINT 3.5 APPLIC/3.5 GM TUBO EACH EYE SCH ×2 (08:06→20:44)
[2016-12-04] MEDS: CHLORHEXIDINE 0.12% (ORAL KIT) 15 ML CUP MT SCH ×2 (08:06→20:43)
[2016-12-04] MEDS: HEPARIN 25,000 UNITS-D5W 250 ML - PREMIX IV SCH (08:22)
[2016-12-04] MEDS: SODIUM PHOSPHATE INJ 30 MMOL in SODIUM CHLOR 0.9% 250 ML INJ 240 ML IV PRN (09:28)
--- NOTE | 2016-12-04 12:11 | HHI.CCPN ---
Subjective Remarks/Hospital Course 56-year-old very pleasant gentleman with past medical history of COPD, and hypertension presents complaining of shortness of breath and nausea, generalized fatigue and chills for 2 days. He thinks it has been from being out in the heat. Denies any fever, chest pain, vomiting, abdominal pain, focal weakness or numbness. In the emergency department his saturation was in mid 80s on arrival with auditory wheezing and tachypnea. He was placed on 4 liters of NC and saturating in the low 90. He does not use oxygen at home. He also mentioned 2 days ago, he came home and was sitting in a chair and was taking his shoes off when he passed out. States he woke up and was still on the chair. This has never happen before. 10/25: Patient intubated secondary to increasing oxygen requirements, altered mental status. Discussed with son. Somewhat hypertensive post intubation. 10/26: Placed on rotaprone bed last evening. Flolan initiated. Saturations improved. Afebrile. Remains on Nimbex drip. 10/27: T max 99.7. Tolerated on not prone position 2 hours yesterday. Tolerating trickle feeds. FiO2 down to 55% 10/28: Tmax 99.9. When unprone for chest x-ray this a.m. desaturated. Currently on 90% FiO2. Actually hypertensive. No bowel movements. Remains paralyzed 10/29: Remains intubated sedated on continuous Prone therapy Except for chest x- ray. Fever 100.8. Panculture requested. Zyvox added. Continue IV sedation with propofol and fentanyl and Versed, neuromuscular paralysis with Nimbex 10/30: Prone cycle changed to 8 hr prone, 1 hr supine from 10/29. Due to hypoxia will continue with same cycle today. Chest x-ray remains unchanged. Patient remains severely hypoxemic FiO2 at 75% PEEP at 16. WBC count worsened to 18. Remains neuromuscularly paralyzed. 10/31: Patient remains critically ill but stable. Oxygen saturation 95% on 55 of FiO2 and PEEP of 16. Reduce PEEP to 14, FiO2 to 50% and start weaning Flolan. Increase supine time to 4 hours, reduce Prone time to 6 hours 11/01: Patient remains intubated sedated critically ill on neuromuscular paralysis. FiO2 reduced to 50, I will attempt PEEP wean gradually to 12 today. Prone/supine cycles will be changed to 6 hours each 11/02: FiO2 remains at 50%, PEEP reduced from 14 to 12 today, TV increased to 600 and RR to 20, in anticipation of discontinuing prone therapy, which will be DCd today. Off Flolan for 2 days 11/03: off pronation. fio2 up to 65% , peep 12. agitation causing desaturation. minimal improvements. 11/04: good diuresis yesterday, but despite that, fio2 persists at 65% and spo2 decreasing to 91% today. no real improvements and some worsening of pulmonary function despite ongoing aggressive therapies. still not safe for SBT given hypoxia. also severely hypertensive this morning. 11/05: continues to diurese well and Cr still at baseline. fio2 at 90% however, and no clinical improvements in mental status or hypoxia. still unsafe for SBT given hypoxemia. off pathway. hypertension under much better control. poor neuro status is concerning. 11/06: Remains severely hypoxemic. FiO2 was 100% PEEP 14. I reduce FiO2 to 90% after increasing PEEP to 16. Developed a flutter with RVR overnight, currently on Cardizem drip. Unable to do SBT due to very high settings 11/07: Remains hypoxemic and but able to wean FiO2 down to 80% with PEEP of 16. Remains unresponsive on sedation. Unable to trach due to his high vent settings and high FiO2. Remains on Cardizem and 15 mg per hour, with rate controlled a flutter. We'll start by mouth Cardizem in an attempt to wean IV Cardizem 11/08: Remains critically ill hypoxic but FiO2 now weaned to 60%, PEEP remains at 16. Very heavily sedated no withdrawal to pain. Will hold all continuos sedation. Sputum culture with Klebsiella sensitive to Rocephin. A flutter persistent, will start IV heparin 11/09 Patient is sedated with Diprivan and intubated, On Cardizem drip 15mg/hr for Aflutter. Heparin drip stated yesterday. 11/10 Patient remains sedated and intubated. On Heparin drip. Persistent fever with Tmax 102.5. ETT was replaced yesterday. 11/11 Patient was placed on Cardizem and amio drips overnight for Afib with RVR. Sedated with Diprivan and intubated. On Heparin drip. T;99.3 this morning. 11/12 Patient remains intubated and sedated with Diprivan. On Cardizem drip 15mg/ hr. Afebrile, Tmax 100.6 11/13 Patient is sedate with Diprivan and intubated. In Afib with RVR now on Amio drip. Tmax 100,4 11/14 Remains intubated sedated with propofol and fentanyl. Afib rate controlled , remains on amiodarone and Cardizem gtt. Fio2 remains high at 70%, PEEP 12. CXR persistent bibasilar infiltrates/effusion 11/15: Currently sedated with propofol and fentanyl drips. Currently in A. fib/ flutter on amiodarone drip and Cardizem drip. PEEP increased to 14. FiO2 65. 11/16: Tmax 100.1. Patient more alert and tachycardic this AM. Adding midazolam gtt for sedation and currently tolerating tube feeding. Positive BM. PEEP to 12. FiO2 75% 11/17: Afebrile. FiO2 down to 60%. PEEP set 12. Multiple tracheostomy hopefully on Saturday. Heart rate better control. 11/18: Afebrile. Discontinuing amiodarone drip today and switching to oral. FiO2 between 60 and 70%. Restarting epoprostenol in attempt to get FiO2 down to 50% for tracheostomy tomorrow 11/19 No events overnight. Sedated with Diprivan, Fentanyl and versed. Still requiring high O2 - on PRVC with PEEP;12 and FIO2 70%. Afebrile. 11/20 Patient remains sedated with Diprivan, versed, Fentanyl and intubated. On PRVC with PEEP: 12, FIO2 50% , sats 88-90%. On Heparin drip. 11/21: Tmax 99.4. Tolerating tube feeds. Remains on heparin drip. FiO2 down to 55%. PEEP of 10. Eyes open blinks spontaneously. Does squeeze and weakly on left side with encouragement 11/22: Intubated heavily sedated. FiO2 50%, remains on Flolan. PEEP 10. Bumex 1 mg 1 and Diamox 500 mg 1 IV. She will negative balance. Heparinized tube feeds on hold for tracheostomy today at 12. Remains in atrial flutter 11/23 Patient remains sedated with Diprivan, Fentanyl, Versed and intubated. On Heparin drip. For CT guided thoracentesis today. On APRV 11/24 Patient remains sedated and intubated. 20Fr CT placed yesterday for right sided PTX. Spiked fever with T 101.6. Remains on Heparin drip. 11/25 Patient remains intubated with Diprivan, fentanyl and intubated. On PRVC with PEEP: 10, FIO2 50%. Afebrile. 11/26 Patient is sedated with Diprivan, Fentanyl and intubated. Afebrile. On Heparin drip. On PRVC with PEEP: 10, FIO2 60% 11/27 Patient is scheduled for trach in OR today. Sedated and intubated. Heparin drip is off for trach. 11/28 Patient s/p trach yesterday. Sedated with Diprivan and Fentanyl. Afebrile. On PRVC with PEEP; 10 and FIO2 50% 11/29 No events overnight. Sedated and on ventilator via trach. For PEG tube placement today. Heparin drip on hold. 11/30: Currently afebrile. MAXIMUM TEMPERATURE 100. Positive BM via fecal containing device. Tube feeds on hold secondary to plan PEG tube placement today. Heparin drip on hold as well. 12/01: Status post PEG tube placement yesterday per IR. Heparin drip and tube feeds restarted today. Restarting insulin detemir. Awake and alert and weakly follows commands on sedation 12/02: Tmax 99.3. Tube feeds restarted and tolerating. Awake and alert and weakly follows commands. Plan for MRI brain/C-spine a.m. 12/03. 12/03: Patient is awake. Tolerating PRVC, very weakly wiggling cedric toes. MRI today Subjective 12/04/16 Tolerated CPAP with high settings yesterday for several hours 15 over 5. Becomes tachypneic and pressure support wean. MRI of the C-spine shows increased signal, no cord compression. Discussed with Dr. Riggins. He is requesting flexion extension films of C spine. Objective Vital Signs Date Time Temp Pulse Resp B/P (MAP) Pulse Ox O2 Delivery O2 Flow Rate FiO2 12/04/16 11:47 94 45 12/04/16 11:06 19 12/04/16 10:00 99 12/04/16 08:00 98.3 142/91 (108) Intake and Output 12/04/16 12/04/16 12/05/16 08:00 16:00 00:00 Intake Total 957 ml 100 ml Output Total 2900 ml 900 ml Balance -1943 ml -800 ml Result Diagram: 12/03/16 0445 12/04/16 0430 Imaging Last Impressions Gastrostomy Tube Placement 11/30/16 0000 Signed Impressions: Service Date/Time: Wednesday, November 30, 2016 12:22 - CONCLUSION: Uncomplicated gastrostomy tube placement as above. Jorge Jolly MD Chest X-Ray 11/30/16 0000 Signed Impressions: Service Date/Time: Wednesday, November 30, 2016 03:55 - CONCLUSION: Progression in the bilateral pleural effusions and bibasilar pulmonary infiltrates. Fito Mar Jr., MD Abdomen X-Ray 11/30/16 Signed Impressions: Service Date/Time: Wednesday, November 30, 2016 09:43 - CONCLUSION: 1. No definite nasogastric catheter is identified. Repeat examination centered higher in the thorax may be performed for more definitive evaluation. Consider repositioning the nasogastric catheter prior to repeat imaging. Nico Vaughan MD Brain MRI 11/26/16 0000 Signed Impressions: Service Date/Time: Saturday, November 26, 2016 19:52 - CONCLUSION: 1. Small focal signal abnormality in the superior medial left frontal lobe. This is nonspecific. This could be the sequela from prior insult such as a contusion or small infarct. An acute infarct is not seen. A small underlying lesion could have a similar appearance. One could perform a contrast-enhanced study to determine if there is any enhancement associated with this region. 2. There are a few scattered minimal punctate areas of demyelination seen not expected for the patient's age. 3. Sinus disease. Jayson Soto MD Lower Extremity Ultrasound 11/09/16 0000 Signed Impressions: Service Date/Time: Wednesday, November 09, 2016 14:13 - CONCLUSION: Normal examination. Jayson Manning MD Liver Ultrasound 11/09/16 0000 Signed Impressions: Service Date/Time: Wednesday, November 09, 2016 13:58 - CONCLUSION: Sono dense liver without duct dilatation. 4 mm common duct. Ward Kim MD FACR Chest CT 11/06/16 0000 Signed Impressions: Service Date/Time: Sunday, November 06, 2016 11:24 - CONCLUSION: 1. Dense bilateral posterior lower lobe airspace consolidation consistent with aspiration versus less likely pneumonia. 2. Linear consolidation in the right middle lobe consistent with atelectasis versus aspiration. 3. Trace left and small right pleural effusions. 4. Support lines and tubes in good position. 5. Prominent coronary artery calcifications. Nico Vaughan MD Head CT 11/05/16 0000 Signed Impressions: Service Date/Time: Saturday, November 05, 2016 21:43 - CONCLUSION: 1. No acute intracranial abnormalities. Pansinus fluid opacification. Cristofer De Santiago MD Carotid Artery Ultrasound 10/25/16 0000 Signed Impressions: Service Date/Time: , October 25, 2016 08:27 - CONCLUSION: Mild to moderate plaque in both carotid systems with less than 40%% diameter stenosis by velocity criteria. Jhonathan Dietz MD CT Angiography 10/25/16 0000 Signed Impressions: Service Date/Time: , October 25, 2016 06:12 - CONCLUSION: 1. Negative for pulmonary embolism. 2. There is a fairly large area of masslike consolidation in the medial right lung involving posterior segment right upper lobe and medial aspect of right lower lobe. There is associated right hilar and mediastinal adenopathy measuring up to 2.1 cm. Differential diagnosis includes pneumonia or underlying lung neoplasm. Close followup imaging recommended after treatment for pneumonia, to assess for underlying mass. Cristofer De Santiago MD Objective Remarks GENERAL: 56-year-old male, critically ill currently on ventilator via tracheostomy SKIN: Warm and dry. Positive intertrigo HEAD: Atraumatic. Normocephalic. EYES: Pupils equal and round about 3 mm bilaterally and reactive. No scleral icterus. No injection or drainage. ENT: No nasal bleeding or discharge. Orotracheally intubated NECK: Trachea midline. No JVD. Tracheostomy site is clean dry and intact CARDIOVASCULAR: Tachycardia, IR. S1, S2 no S4. Diminished heart sounds. Without murmur, clicks, or rubs RESPIRATORY: Bilateral mild expiratory wheezes and coarse bilateral anterior rhonchi appreciated. GASTROINTESTINAL: Abdomen soft, obese. MUSCULOSKELETAL: Extremities with trace lower extremity bilateral edema. No obvious deformities. NEUROLOGICAL: Eyes are open. Positive gag. Nods head appropriately to questions. Very Weakly follows commands bilateral upper extremities by squeezing hands, wiggles toes Date of Insertion: Nov 16, 2016 Line: PICC Side: Left Location: Antecubital A/P Assessment and Plan Neuro/Psych: CIM/SHEFALI s/p Neuromuscular paralysis for Prone therapy Agitated Delirium, Metabolic Encephalopathy Syncope MRI C spine showing increased signals C3 to C5 region. D/W Dr. Riggins- check flexion-extension films of the C-spine Off all continuos sedation off 12/03/16. Place on Fentanyl patch 50 g per hour Continue liquid oxycodone 5 mg every 6 per tube. prn hydromorphone, fentanyl for breakthrough. Haloperidol 5mg iv q4h prn for agitation. Goal of RASS -0, Daily sedation vacation MRI brain 11/26: Small focal signal abnormality in the superior medial left frontal lobe.This could be the sequela from prior insult such as a contusion or small infarct. No acute infarct MRI brain 12/[address] on admission revealed no acute intracranial findings, CT brain 11/05- no acute findings. opacification of sinuses. Carotid ultrasound less than 50% stenosis bilaterally EEG 11/20: No seizure activity. EEG 11/09: severe encephalopathy PT/OT for range of motion CV: Atrial fib/ flutter with RVR Hypertension- On Amiodarone 200mg Q12, Digoxin 0.125 mg daily(Dig. level 0.5 on 12/01). Repeat in a.m. On PO diltiazem 90 mg PO q6hr, metoprolol 50mg Q6, Clonidine 0.2mg Q8 for hypertension and Atrial fib/flutter IV heparin for anticoagulation. Repeat echo with bubble study: 11/22: No shunt seen Start Coumadin 12/04/16 and pharmacy to dose Echo 10/25 EF 60-65% Resp: Acute hypoxemic Respiratory failure - severe and persistent. s/p trach 11/27 Spontaneous Right sided PTX 2nd barotrauma COPD exacerbation Pneumonia most likely community-acquired Obesity hypoventilation syndrome Tobacco use disorder On PRVC RR 16, TV 650, IT: 1.3, PEEP: 6, FIO2 40% Tolerated CPAP 15/5 for several hours 12/03. Attempt TP for 2 hours if tolerated Albuterol/ipratropium aerosols every 4 hours of albuterol aerosols every 2 hours PRN. Ventilator bundle s/p trach 11/[address] Martin #8 Shiley s/p 20Fr CT placed for right PTX 11/23, monitor CT drainage- 45 cc past [address] pulmonary angio revealed no pulmonary embolus. Masslike consolidation in the posterior right upper lobe and medial right lower lobe. Lymphadenopathy to 1 cm right hilum and subcarinal. Atelectasis left lower lobe. Discontinued Prone therapy 11/02/16. Budesonide 0.5 mg/2 mL aerosols twice a day. Methylprednisolone 40 mg IV daily Pulmonary/Dr. Wynne following GI: Morbid Obesity Elevated LFT's- now within normal. PEG tube placement 11/30 US liver: No ductal dilatation Tube feeds resumed Vital high protein 1.5 at 40ml/hr Famotidine 20 milligrams mg twice a day for GI prophylaxis /renal: Hyponatremia Monitor renal function, I/O's, electrolytes replacement per protocol. Endo: Hyperglycemia- SSI Q6h with Regular Insulin mild protocol for glycemic control. Previously insulin detemir 62 units twice a day. Restarted 15 units twice a day 12/01 . Heme: Normocytic anemia Leukocytosis Monitor CBC, coags- patient is on heparin drip ID: Severe sepsis HAP Continue abx(piperacillin/tazobactam and sulfamethoxazole/trimethoprim 800/160 2 tablets 3 times a day) Sputum: Klebsiella, Stenotrophomonas and Pseudomonas 11/27 Sputum cx 11/23: Kleb, Pseudomonas, s/p (ceftriaxone and fluconazole course). ID is following-Dr. Patel s/p ceftriaxone 11/02-11/09 for Enterobacter pneumonia. Repeat sputum Klebsiella sensitive to Rocephin 10/29/16-Enterobacter in sputum, 11/06/16, 11/10 sputum- Klebsiella Urine Legionella and pneumococcal antigens negative and influenza negative C-diff PCR is negative Access RUE PICC placed 11/05 through 11/15 replaced 11/16 with left upper extremity PICC Prophylaxis - GI, famotidine - DVT - IV heparin gtt, Coumadin started today 11/09 Doppler US LE negative for DVT Palliative care is following Critical Care: Level 3 Roro Tyler MD Dec 04, 2016 12:11
[2016-12-04] MEDS: fentaNYL 50 MCG/HR PATCH T-DERMAL SCH (14:08)
[2016-12-04 14:41] LABS: C. DIFF EPI 027 PRESUMPTIVE NEGATIVE (NEGATIVE)
--- NOTE | 2016-12-04 15:37 | HHI.HCPN ---
Reason for visit a. To assist with evaluation and management of symptoms including: pain, dyspnea, encephalopathy. b. To assist medical decision maker(s) with: better understanding of current medical conditions; weighing benefits/burdens of medical treatment options; making medical treatment decisions. . Subjective/Interval History Patient seen and examined in ICU. Discussed with nurse. Spoke with sonDrake at bedside. Tolerating CPAP. Nods yes to pain, indicates pain in his back and neck. Otherwise unable to quantify or qualify pain. He weakly squeezes my hand on command. He does not move lower extremities during my visit. He seems to recognize his son. He shrugs his shoulders when asked if he is short of breath. Tmax 99.1. Tachycardic. No new labs. Sputum culture 11/27/16 Klebsiella Pneumoniae, Pseudomonas aeruginosa, Stenotrophomonas maltophilia. MRI brain small area of abnormal T2 left frontal cortex unchanged, non-specific. C-spine severely limited exam, increased signal in the cervical cord mid C3 to mid C5. Dr. Riggins requesting flexion extension films of C spine. . Family/friend interactions Spoke with son at bedside. He is asking questions about DC planning, questions answered. Rin Franco LCSW called to answer questions for daughter. . . Advance Directives Living Will: Never completed Health Care Surrogate: Never completed Durable Power of Take Out Waiter/Waitress: Never completed Advance Directive Specifics Health Care Surrogate(s): Patient is currently incapacitated, uncertain if he will regain capacity. Patient is single. Has 1 son (Drake Andrews) and 2 daughters (Ira Mcgovern and Krystyna Palma). According to [place] statutes, health care proxy decision- making would fall to the majority of adult children. Krystyna Roth and Drake wish to particpate. . Significant change in goals: FULL CODE. Goals remain aggressive at this time. . Objective Vital Signs Date Time Temp Pulse Resp B/P (MAP) Pulse Ox O2 Delivery O2 Flow Rate FiO2 12/04/16 14:23 50 12/04/16 14:00 119 12/04/16 13:48 92 T-piece 45 12/04/16 13:48 45 12/04/16 13:43 45 12/04/16 12:00 45 12/04/16 12:00 106 12/04/16 12:00 98.6 106 19 159/90 (113) 93 12/04/16 11:47 94 45 12/04/16 11:11 45 12/04/16 11:06 19 12/04/16 10:00 99 12/04/16 08:00 93 12/04/16 08:00 45 12/04/16 08:00 98.3 93 19 142/91 (108) 95 12/04/16 07:43 40 12/04/16 07:43 94 45 12/04/16 06:00 89 12/04/16 04:15 95 40 12/04/16 04:00 99.1 89 18 137/78 (97) 94 12/04/16 04:00 40 12/04/16 04:00 123 12/04/16 02:00 134 12/04/16 00:00 40 12/04/16 00:00 98.3 134 18 152/109 (123) 94 12/04/16 00:00 134 12/03/16 22:36 97 40 12/03/16 22:00 119 12/03/16 20:00 40 12/03/16 20:00 97 12/03/16 20:00 97.9 97 19 202/124 (150) 95 12/03/16 19:40 94 40 12/03/16 18:00 74 12/03/16 17:04 95 25 178/100 (126) 95 12/03/16 17:01 102 19 234/130 (164) 92 12/03/16 17:01 102 19 234/130 (164) 92 12/03/16 17:00 110 22 94 12/03/16 16:03 99 40 12/03/16 16:00 118 12/03/16 16:00 98.3 118 17 130/77 (94) 95 12/03/16 16:00 40 Intake & Output 12/04/16 12/04/16 06:59 18:59 Intake Total 1057 ml 100 ml Output Total 2900 ml 900 ml Balance -1843 ml -800 ml IV Total 200 ml 100 ml Tube Feeding 457 ml Tube Irrigant 200 ml Other 200 ml Output Urine Total 2900 ml 900 ml Stool Total 0 ml Chest Tube Drainage Total 0 ml Physical Exam CONSTITUTIONAL/GENERAL: This is an overweight, critically ill patient, on mechanical ventilation. TUBES/LINES/DRAINS: tracheostomy, PEG, left upper PIC line, bilateral soft wrist restraints, Ashley Shield, Santiago catheter, SCDs, right chest tube. SKIN: Ecchymoses on upper extremities. Abrasion/ scab on right knee. Diaphoretic. EYES: eyes open, tracking. CARDIOVASCULAR: tachycardic, 100-120. RESPIRATORY/CHEST: Unlabored respirations on CPAP. Right chest tube. GASTROINTESTINAL: Abdomen soft, nondistended. Bowel sounds present. Tolerating tube feeding. GENITOURINARY: Without palpable bladder distension. Catheter in place. MUSCULOSKELETAL: Extremities with 2+ edema. NEUROLOGICAL: Eyes open, tracking, faintly squeezes bilateral hands on command. Not moving bilateral LEs. PSYCHIATRIC: Awake, calm. . Diagnostic Tests Laboratory Laboratory Tests Test 12/01/16 17:05 12/01/16 23:05 12/02/16 03:25 12/02/16 13:30 Activated Partial Thromboplast Time 54.5 SEC (24.3-30.1) 60.4 SEC (24.3-30.1) 77.9 SEC (24.3-30.1) 52.5 SEC (24.3-30.1) White Blood Count 13.9 TH/MM3 (4.0-11.0) Red Blood Count 3.65 MIL/MM3 (4.50-5.90) Hemoglobin 11.2 GM/DL (13.0-17.0) Hematocrit 34.4 % (39.0-51.0) Mean Corpuscular Volume 94.2 FL (80.0-100.0) Mean Corpuscular Hemoglobin 30.5 PG (27.0-34.0) Mean Corpuscular Hemoglobin Concent 32.4 % (32.0-36.0) Red Cell Distribution Width 14.9 % (11.6-17.2) Platelet Count 275 TH/MM3 (150-450) Mean Platelet Volume 7.6 FL (7.0-11.0) Neutrophils (%) (Auto) 90.1 % (16.0-70.0) Lymphocytes (%) (Auto) 4.9 % (9.0-44.0) Monocytes (%) (Auto) 4.6 % (0.0-8.0) Eosinophils (%) (Auto) 0.2 % (0.0-4.0) Basophils (%) (Auto) 0.2 % (0.0-2.0) Neutrophils # (Auto) 12.6 TH/MM3 (1.8-7.7) Lymphocytes # (Auto) 0.7 TH/MM3 (1.0-4.8) Monocytes # (Auto) 0.6 TH/MM3 (0-0.9) Eosinophils # (Auto) 0.0 TH/MM3 (0-0.4) Basophils # (Auto) 0.0 TH/MM3 (0-0.2) CBC Comment AUTO DIFF Differential Total Cells Counted 100 Neutrophils % (Manual) 68 % (16-70) Band Neutrophils % 16 % (0-6) Lymphocytes % 3 % (9-44) Monocytes % 2 % (0-8) Neutrophils # (Manual) 13.2 TH/MM3 (1.8-7.7) Metamyelocytes 7 % (0-1) Myelocytes 4 % (0-0) Differential Comment FINAL DIFF MANUAL Toxic Granulation 1+ (NORMAL) Blood Urea Nitrogen 14 MG/DL (7-18) Creatinine LESS THAN 0.15 MG/DL Random Glucose 120 MG/DL (74-106) Total Protein 4.5 GM/DL (6.4-8.2) Albumin 1.7 GM/DL (3.4-5.0) Calcium Level 7.5 MG/DL (8.5-10.1) Phosphorus Level 2.7 MG/DL (2.5-4.9) Magnesium Level 2.0 MG/DL (1.5-2.5) Alkaline Phosphatase 57 U/L (45-117) Aspartate Amino Transf (AST/SGOT) 13 U/L (15-37) Alanine Aminotransferase (ALT/SGPT) 53 U/L (12-78) Total Bilirubin 0.3 MG/DL (0.2-1.0) Sodium Level 133 MEQ/L (136-145) Potassium Level 4.3 MEQ/L (3.5-5.1) Chloride Level 98 MEQ/L (98-107) Carbon Dioxide Level 28.7 MEQ/L (21.0-32.0) Anion Gap 6 MEQ/L (5-15) Estimat Glomerular Filtration Rate 690 ML/MIN (>89) Test 12/02/16 20:10 12/03/16 04:45 12/04/16 01:00 12/04/16 04:30 Activated Partial Thromboplast Time 50.7 SEC (24.3-30.1) 47.9 SEC (24.3-30.1) 43.9 SEC (24.3-30.1) White Blood Count 16.5 TH/MM3 (4.0-11.0) Red Blood Count 4.19 MIL/MM3 (4.50-5.90) Hemoglobin 12.8 GM/DL (13.0-17.0) Hematocrit 39.3 % (39.0-51.0) Mean Corpuscular Volume 93.8 FL (80.0-100.0) Mean Corpuscular Hemoglobin 30.6 PG (27.0-34.0) Mean Corpuscular Hemoglobin Concent 32.7 % (32.0-36.0) Red Cell Distribution Width 14.9 % (11.6-17.2) Platelet Count 346 TH/MM3 (150-450) Mean Platelet Volume 7.3 FL (7.0-11.0) Neutrophils (%) (Auto) 90.5 % (16.0-70.0) Lymphocytes (%) (Auto) 4.6 % (9.0-44.0) Monocytes (%) (Auto) 3.6 % (0.0-8.0) Eosinophils (%) (Auto) 0.1 % (0.0-4.0) Basophils (%) (Auto) 1.2 % (0.0-2.0) Neutrophils # (Auto) 14.9 TH/MM3 (1.8-7.7) Lymphocytes # (Auto) 0.8 TH/MM3 (1.0-4.8) Monocytes # (Auto) 0.6 TH/MM3 (0-0.9) Eosinophils # (Auto) 0.0 TH/MM3 (0-0.4) Basophils # (Auto) 0.2 TH/MM3 (0-0.2) CBC Comment AUTO DIFF Differential Total Cells Counted 100 Neutrophils % (Manual) 81 % (16-70) Band Neutrophils % 6 % (0-6) Lymphocytes % 3 % (9-44) Monocytes % 4 % (0-8) Neutrophils # (Manual) 15.3 TH/MM3 (1.8-7.7) Metamyelocytes 2 % (0-1) Myelocytes 4 % (0-0) Differential Comment FINAL DIFF MANUAL Platelet Estimate NORMAL (NORMAL) Platelet Morphology Comment NORMAL (NORMAL) Red Cell Morphology Comment NORMAL (NORMAL) Blood Urea Nitrogen 14 MG/DL (7-18) Creatinine 0.18 MG/DL (0.60-1.30) LESS THAN 0.15 MG/DL Random Glucose 121 MG/DL (74-106) Total Protein 5.6 GM/DL (6.4-8.2) Albumin 2.1 GM/DL (3.4-5.0) Calcium Level 8.2 MG/DL (8.5-10.1) Phosphorus Level 2.2 MG/DL (2.5-4.9) 2.4 MG/DL (2.5-4.9) Magnesium Level 1.8 MG/DL (1.5-2.5) Alkaline Phosphatase 72 U/L (45-117) Aspartate Amino Transf (AST/SGOT) 14 U/L (15-37) Alanine Aminotransferase (ALT/SGPT) 58 U/L (12-78) Total Bilirubin 0.5 MG/DL (0.2-1.0) Sodium Level 132 MEQ/L (136-145) Potassium Level 4.2 MEQ/L (3.5-5.1) Chloride Level 97 MEQ/L (98-107) Carbon Dioxide Level 28.9 MEQ/L (21.0-32.0) Anion Gap 6 MEQ/L (5-15) Estimat Glomerular Filtration Rate 559 ML/MIN (>89) 690 ML/MIN (>89) Test 12/04/16 10:00 Stool C. difficile Toxin (PCR) NEGATIVE (NEGATIVE) Stl C. difficile Toxin Epiderm 027 PRESUMPTIVE NEGATIVE Result Diagram: 12/03/16 0445 12/04/16 0430 Microbiology Microbiology Date/Time Source Procedure Growth Status 11/23/16 19:26 Blood Peripheral Aerobic Blood Culture - Final NO GROWTH IN 5 DAYS Complete 11/23/16 19:26 Blood Peripheral Anaerobic Blood Culture - Final NO GROWTH IN 5 DAYS Complete 11/08/16 14:15 Stool Stool Stool Occult Blood (TYLER) - Final HEMOCCULT NEGATIVE Complete 11/27/16 09:55 Sputum Endotracheal Gram Stain - Final Complete 11/27/16 09:55 Sputum Culture - Final Klebsiella Pneumoniae Stenotrophomonas Maltophilia Pseudomonas Aeruginosa Complete 11/11/16 01:15 Urine Catheterized Urine Urine Culture - Final Ana Albicans Complete Imaging Last Impressions Chest X-Ray 12/03/16 Signed Impressions: Service Date/Time: Saturday, December 03, 2016 09:30 - CONCLUSION: Stable chest without pneumothorax. Moderate bibasilar parenchymal changes. Ward Kim MD FACR Cervical Spine MRI 12/03/16 Signed Impressions: Service Date/Time: Saturday, December 03, 2016 13:13 - CONCLUSION: Severely limited exam. I believe there is increased signal in the cervical cord mid C3 to mid C5. Ward Kim MD FACR Brain MRI 12/03/16 Signed Impressions: Service Date/Time: Saturday, December 03, 2016 13:13 - CONCLUSION: 1. There is a small area of abnormal T2 signal in the left frontal cortex this is unchanged from the previous examination dated 11/26/16. This is nonspecific in appearance on the MRI. Differential considerations would be a small area of gliosis versus an old area of contusion. Follow up examination in 6 months to document stability would be warranted. 2. No findings to indicate acute cortical infarction are identified. Román Kim MD Gastrostomy Tube Placement 11/30/16 Signed Impressions: Service Date/Time: Wednesday, November 30, 2016 12:22 - CONCLUSION: Uncomplicated gastrostomy tube placement as above. Jorge Jolly MD Abdomen X-Ray 11/30/16 Signed Impressions: Service Date/Time: Wednesday, November 30, 2016 09:43 - CONCLUSION: 1. No definite nasogastric catheter is identified. Repeat examination centered higher in the thorax may be performed for more definitive evaluation. Consider repositioning the nasogastric catheter prior to repeat imaging. Nico Vaughan MD Lower Extremity Ultrasound 11/09/16 Signed Impressions: Service Date/Time: Wednesday, November 09, 2016 14:13 - CONCLUSION: Normal examination. Jayson Manning MD Liver Ultrasound 11/09/16 Signed Impressions: Service Date/Time: Wednesday, November 09, 2016 13:58 - CONCLUSION: Sono dense liver without duct dilatation. 4 mm common duct. Ward Kim MD FACR Chest CT 11/06/16 Signed Impressions: Service Date/Time: Sunday, November 06, 2016 11:24 - CONCLUSION: 1. Dense bilateral posterior lower lobe airspace consolidation consistent with aspiration versus less likely pneumonia. 2. Linear consolidation in the right middle lobe consistent with atelectasis versus aspiration. 3. Trace left and small right pleural effusions. 4. Support lines and tubes in good position. 5. Prominent coronary artery calcifications. Nico Vaughan MD Head CT 11/05/16 0000 Signed Impressions: Service Date/Time: Saturday, November 05, 2016 21:43 - CONCLUSION: 1. No acute intracranial abnormalities. Pansinus fluid opacification. Cristofer De Santiago MD Carotid Artery Ultrasound 10/25/16 0000 Signed Impressions: Service Date/Time: September 08:27 - CONCLUSION: Mild to moderate plaque in both carotid systems with less than 40%% diameter stenosis by velocity criteria. Jhonathan Dietz MD CT Angiography 10/25/16 0000 Signed Impressions: Service Date/Time: September 06:12 - CONCLUSION: 1. Negative for pulmonary embolism. 2. There is a fairly large area of masslike consolidation in the medial right lung involving posterior segment right upper lobe and medial aspect of right lower lobe. There is associated right hilar and mediastinal adenopathy measuring up to 2.1 cm. Differential diagnosis includes pneumonia or underlying lung neoplasm. Close followup imaging recommended after treatment for pneumonia, to assess for underlying mass. Cristofer De Santiago MD Procedures * 11/30/16 - PEG tube placement * 11/27/16 - tracheostomy * 11/23/16 - right chest tube placement. * 11/10/16 - ETT replaced. * 11/04/16 - arterial line placement. * 10/25/16 - Intubation and central line placed. . Assessment and Plan Disease Oriented Problem List: (1) Acute respiratory failure (2) ARDS (adult respiratory distress syndrome) (3) COPD (chronic obstructive pulmonary disease) (4) Obesity hypoventilation syndrome (5) Anoxic encephalopathy (6) Metabolic encephalopathy (7) Atrial flutter (8) Leukocytosis (9) Sepsis (10) Hyperglycemia (11) Morbid obesity (12) Tobacco use (13) Hypertension Symptom Scale: (1) Pain 0-10 Scale: 0 Comment: Off all sedation. (2) Dyspnea 0-10 Scale: Unable to quantify Comment: on vent to trach. (3) Encephalopathy 0-10 Scale: Unable to quantify Pertinent Non-Medical Issues Psychosocial: notes indicate patient is single. Has one son and one daughter. Was living with his son prior to admission. Spiritual: unknown. Legal: Patient is currently incapacitated, uncertain if he will regain capacity. Patient is single. Has 1 son (Drake Andrews) and 2 daughters ( Ira Mcgovern and Krystyna Palma). According to [place] statutes, health care proxy decision-making would fall to the majority of adult children. Dorothea Roth wish to particpate. Ethical issues impacting care: no known concerns at this time. . Important Contacts * Ira Mcgovern, daughter/ HCP: [phone] (cell) or [phone] ext. [phone] (work) * Drake Andrews, son/ HCP: [phone] (cell) or [phone] (work) * Krystyna Palma, daughter/ HCP: [phone] * Drake Henry girlfriend: [phone] . . Prognosis Mr. Andrews is an unfortunate 56-year-old male who was admitted with respiratory distress, pneumonia, ARDS with prolonged hospitalization/mechanical ventilation still requiring high FI 02 and PEEP needs, unable to proceed with tracheostomy/ PEG tube given medical instability, high oxygen needs. Overall condition does not appear to be improving. . Code Status: Full Code Plan * Decision Maker: Patient is currently incapacitated, uncertain if he will regain capacity. Patient is single. Has 1 son (Drake Andrews) and 2 daughters ( Ira Mcgovern and Krystyna Palma). According to [place] statutes, health care proxy decision-making would fall to the majority of adult children. Dorothea Roth wish to particpate. * FULL CODE * Goals remain aggressive. Spoke with family, they had questions regarding DC planning. Will attempt to speak with CM, they were out of office. * SYMPTOMS: Pain: potential sources of pain include COPD, intubation, prolonged hospitalization, bedbound status, chest tube, infection, etc. on fentanyl drip, intermittent grimacing during physical exam. Given underlying encephalopathy no new pain medication recommendations at this time. Dyspnea: remains on prolonged mechanical ventilation s/p trach. Encephalopathy: patient with possible anoxic encephalopathy. No new medication recommendations at this time. * Palliative care will continue to follow throughout hospital course to assist with symptom management and clarification of goals as needed. . Attestation To help prompt me to consider important information that might be impacting today's encounter and assessment, information from prior notes written by myself or my colleagues may have been "brought forward" into today's note. My signature on this note, however, is an attestation that I personally performed the exam, history, and/or decision-making noted today, and, unless otherwise indicated, the interactions with patient, family, and staff as well as the review of records all occurred today. I also attest that the listed assessment and stated plan reflect my best clinical judgment today based on the combination of historical information, prior notes, and today's exam/ interactions. When time spent is documented, it refers only to time spent today by the signer, or if indicated, combined time spent today by collaborating physician/nurse practitioner. Sandra Mccabe Dec 04, 2016 15:37
[2016-12-04] MEDS: WARFARIN SOD 3 MG TAB PO SCH (16:42)
[2016-12-04] MEDS: RESP: ALBUTEROL 2.5 MG/3 ML NEB (PRN) NEB (19:23)
[2016-12-04] MEDS ORDERED: ALBUMIN 25% INJ 100 ML IV ONE (22:15)
[2016-12-05] VITALS (19 sets, daily range): BP systolic 81–133; BP diastolic 51–73; PULSE 74–114; RESP 15–23; TEMP 97.4–99.3; O2SAT 90–98
[2016-12-05] MEDS ORDERED: ALBUMIN 25% INJ 100 ML IV ONE (01:15)
[2016-12-05] MEDS: INSULIN NovoLIN REGULAR SUPPLEMENTAL SCALE SQ SCH ×4 (01:24→20:00)
[2016-12-05] MEDS: CHLORHEXIDINE GLUCONATE 2 % 1 PACK (2 CLOTHS) TOP SCH (01:25)
[2016-12-05] MEDS ORDERED: CALCIUM GLUCONATE INJ 3 GM in SODIUM CHLORIDE 0.9% INJ 100 ML IV ONE (02:00)
[2016-12-05] MEDS: PIPERACIL-TAZO 4.5 GM PREMIX 100 ML IV SCH ×3 (04:08→16:01)
[2016-12-05] MEDS: oxyCODONE HCL ORAL CONC 20 MG/ML SYRINGE PEG SCH ×4 (04:08→20:36)
[2016-12-05 05:37] LABS: HEMATOCRIT 33.3 % (39.0-51.0); MEAN CELL VOLUME 92.4 FL (80.0-100.0); MEAN CORPUSCULAR HEMOGLOBIN 29.6 PG (27.0-34.0); PLATELET COUNT 335 TH/MM3 (150-450); RED CELL DISTRIBUTION WIDTH 15.2 % (11.6-17.2); REVIEW FLAG FINAL
[2016-12-05] MEDS: SULFAMETHOXAZOLE-TRIMETHOPRIM DS 800-160 MG TAB PO SCH ×3 (05:39→20:35)
[2016-12-05] MEDS: METOPROLOL TARTRATE 50 MG TAB PO SCH ×4 (05:41→17:26)
[2016-12-05] MEDS: cloNIDine HCL 0.2 MG TAB OG-TUBE SCH ×3 (05:41→20:35)
[2016-12-05] MEDS: DILTIAZEM HCL 90 MG TAB PO SCH ×4 (05:41→17:26)
[2016-12-05 05:48] LABS: APTT (PATIENT) 57.8 SEC (24.3-30.1); PROTHROMBIN TIME - PATIENT 11.4 SEC (9.8-11.6)
[2016-12-05] MEDS: RESP: BUDESONIDE 0.5 MG/2 ML NEB NEB SCH ×2 (07:26→19:56)
[2016-12-05] MEDS: CHLORHEXIDINE 0.12% (ORAL KIT) 15 ML CUP MT SCH ×2 (08:00→20:37)
--- NOTE | 2016-12-05 08:13 | HHI.PR ---
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 Status: Acute Plan: aggressive nutritional support (4) Critical illness neuropathy ICD Codes: G62.81 - Critical illness polyneuropathy Status: Acute Plan: aggressive nutritional support (5) Morbid obesity ICD Codes: E66.01 - Morbid (severe) obesity due to excess calories Status: Chronic Subjective Subjective Comments No acute events reported No headache, no neck pain No chest pain Active Medications Current Medications Medications (Trade) Dose Ordered Sig/Audelia Route Start Time Stop Time Status Last Admin (NS Flush) 2 ml UNSCH PRN .XX 10/25/16 05:30 11/29/16 04:16 (NS Flush) 2 ml BID .XX 10/25/16 09:00 12/04/16 20:44 (Tylenol) 650 mg Q6H PRN PO 10/25/16 05:30 11/23/16 13:20 (Zofran Inj) 4 mg Q6H PRN IV 10/25/16 05:30 Miscellaneous Information 1 Q361D XX 10/25/16 05:30 10/25/16 21:10 (Chlorhexidine 2% Cloth) 3 pack Taper DAILY@04 TOP 10/26/16 04:00 10/22/17 03:59 12/05/16 01:25 (Chlorhexidine 2% Cloth) 3 pack UNSCH PRN TOP 10/25/16 05:30 (Milk Of Magnesia Liq) 30 ml Q12H PRN PO 10/25/16 05:30 10/26/16 20:52 (Senokot) 17.2 mg Q12H PRN PO 10/25/16 05:30 12/02/16 08:19 (Dulcolax Supp) 10 mg DAILY PRN RECTAL 10/25/16 05:30 (Lactulose Liq) 30 ml DAILY PRN PO 10/25/16 05:30 (Pulmicort Respule Neb) 0.5 mg Q12HR NEB NEB 10/25/16 20:00 12/05/16 07:26 (Peridex 0.12% Liq) 15 ml BID@08,20 MT 10/25/16 20:00 12/04/16 20:43 (NS Flush) DAILY IVF 10/26/16 09:00 12/04/16 08:05 (NS Flush) UNSCH PRN IVF 10/25/16 16:45 11/04/16 08:33 (Lacrilube Opht Oint) 1 applic Q12HR EACH EYE 10/26/16 10:00 12/04/16 20:44 (Isordil) 10 mg Q8HR PO 10/28/16 14:00 Future Hold 11/23/16 05:27 (Haldol Inj) 5 mg Q4H PRN IV PUSH 11/03/16 13:00 Potassium Chloride 100 ml @ 50 mls/hr Q2H PRN IV 11/05/16 04:45 11/29/16 09:27 Potassium Chloride 100 ml @ 50 mls/hr Q2H PRN IV 11/05/16 04:45 11/24/16 13:18 (K-Lyte Cl Eff) 50 meq UNSCH PRN PO 11/05/16 04:45 Potassium Chloride 100 ml @ 25 mls/hr UNSCH PRN IV 11/05/16 04:45 11/10/16 05:42 Potassium Chloride 100 ml @ 50 mls/hr Q2H PRN IV 11/05/16 04:45 Magnesium Sulfate 4 gm/Sodium Chloride 100 ml @ 50 mls/hr UNSCH PRN IV 11/05/16 04:45 (Mag-Ox) 800 mg UNSCH PRN PO 11/05/16 04:45 Magnesium Sulfate 2 gm/Sodium Chloride 100 ml @ 50 mls/hr UNSCH PRN IV 11/05/16 04:45 (K-Phos) 2,000 mg Q4H PRN PO 11/05/16 04:45 Sodium Phosphate 30 mmol/Sodium Chloride 250 ml @ 42 mls/hr UNSCH PRN IV 11/05/16 04:45 12/04/16 09:28 (K-Phos) 2,000 mg UNSCH PRN PO/TUBE 11/05/16 04:45 Potassium Phosphate 30 mmol/ Sodium Chloride 260 ml @ 42 mls/hr UNSCH PRN IV 11/05/16 04:45 (Apresoline Inj) 10 mg Q1HR PRN IV PUSH 11/15/16 16:15 12/04/16 01:52 (Nitroglycerin 2% Oint) 2 inch Q6HR PRN TOPICAL 11/15/16 16:15 (Trandate Inj) 10 mg Q1HR PRN IV PUSH 11/15/16 16:15 12/04/16 11:05 (Cardizem) 90 mg Q6HR PO 11/15/16 18:00 Future hold 12/04/16 16:42 (Lopressor) 50 mg Q6HR PO 11/16/16 18:00 Future hold 12/04/16 16:42 (Pepcid) 20 mg BID NG 11/16/16 21:00 12/04/16 20:44 (NS Flush) See Protocol DAILY IV FLUSH 11/17/16 09:00 12/04/16 08:05 (NS Flush) See Protocol UNSCH PRN IV FLUSH 11/16/16 14:30 (Heparin Central Flush) See Protocol DAILY IV FLUSH 11/17/16 09:00 12/04/16 08:06 (Heparin Central Flush) See Protocol UNSCH PRN IV FLUSH 11/16/16 14:30 (NS Flush) UNSCH PRN IV FLUSH 11/16/16 14:30 (Lanoxin) 0.125 mg DAILY PO 11/19/16 09:00 Future hold 12/04/16 08:05 (Levemir Inj) 62 units Q12H SQ 11/18/16 13:00 Future Hold 11/18/16 13:00 (Catapres) 0.2 mg Q8HR OG-TUBE 11/18/16 22:00 Future hold 12/04/16 20:44 (D50w (Vial) Inj) 50 ml UNSCH PRN IV PUSH 11/20/16 07:45 (Glucagon Inj) 1 mg UNSCH PRN OTHER 11/20/16 07:45 Heparin Sodium/ Dextrose 250 ml @ 10 mls/hr TITRATE IV 11/22/16 17:45 Future hold 12/04/16 08:22 (Heparin Inj) 5,000 units UNSCH PRN IV PUSH 11/22/16 17:45 Future hold (Heparin Inj) 2,500 units UNSCH PRN IV PUSH 11/22/16 17:45 Future hold 11/28/16 16:01 Piperacillin Sod/ Tazobactam Sod 100 ml @ 200 mls/hr Q6H IV 11/23/16 17:00 12/05/16 04:08 (Lopressor Inj) 5 mg Q5M PRN IV PUSH 11/28/16 02:45 12/04/16 11:40 (Cordarone) 200 mg Q12HR OG-TUBE 11/30/16 21:00 12/04/16 20:44 (Albuterol Neb) 2.5 mg Q2HR NEB PRN NEB 11/30/16 11:15 12/04/16 19:23 (Bactrim Ds 800-160 Mg) 2 tab Q8HR PO 11/30/16 22:00 12/05/16 05:39 (Levemir Inj) 15 units Q12HR SQ 12/01/16 21:00 12/04/16 20:45 (NovoLIN R SUPPLEMENTAL SCALE) 1 Q6H SQ 12/02/16 14:00 12/04/16 14:00 (Roxicodone Intensol Liq) 5 mg Q6H PEG 12/02/16 10:00 12/05/16 04:08 (fentaNYL INJ) 50 mcg Q1H PRN IV PUSH 12/03/16 09:00 12/03/16 17:17 (Deltasone) 20 mg DAILY PO 12/04/16 09:00 12/04/16 08:04 (Prinivil) 10 mg DAILY PO 12/04/16 02:45 12/04/16 08:04 (Duragesic 50 Mcg Patch.72 Hr) 1 patch Q3D T-DERMAL 12/04/16 14:00 12/04/16 14:08 (Coumadin) 3 mg DAILY@16 PO 12/04/16 16:00 12/04/16 16:42 Pharmacy Profile Note 0 ml @ 0 mls/hr UNSCH OTHER 12/04/16 12:15 Miscellaneous Information 1 Q3D T-DERMAL 12/07/16 14:00 Allergies Allergies Coded Allergies No Known Allergies (Unverified10/25/16) Review of Systems All other ROS: ROS reviewed as documented in chart Exam I&O / VS Vital Signs Date Time Temp Pulse Resp B/P (MAP) Pulse Ox O2 Delivery O2 Flow Rate FiO2 12/05/16 07:26 93 45 12/05/16 06:00 92 12/05/16 04:20 97 45 12/05/16 04:00 98.2 93 15 81/51 (61) 96 12/05/16 04:00 45 12/05/16 04:00 93 12/05/16 02:00 114 12/05/16 00:00 97.4 90 16 97/62 (74) 97 12/05/16 00:00 50 12/05/16 00:00 90 12/04/16 22:45 98 45 12/04/16 22:00 71 12/04/16 20:00 50 12/04/16 20:00 69 12/04/16 20:00 97.8 92 21 157/87 (110) 95 12/04/16 19:25 96 50 12/04/16 18:39 55 12/04/16 18:26 95 50 12/04/16 18:00 89 12/04/16 17:58 20 12/04/16 16:00 97.5 70 15 105/53 (70) 93 12/04/16 16:00 50 12/04/16 16:00 70 12/04/16 15:57 20 12/04/16 14:23 50 12/04/16 14:00 119 12/04/16 13:48 92 T-piece 45 12/04/16 13:48 45 12/04/16 13:43 45 12/04/16 12:00 45 12/04/16 12:00 106 12/04/16 12:00 98.6 106 19 159/90 (113) 93 12/04/16 11:47 94 45 12/04/16 11:11 45 12/04/16 10:00 99 Exam Comments alert, trach in place, follows by closing eyes, raising eyebrows, quadraplegia with crude movements of distal fingers l>rt, 2+pitting edema in all ext, msr trace, no clonus, planterflexor Objective Micro and Labs Laboratory Tests Test 12/04/16 10:00 12/04/16 21:00 12/05/16 04:17 Stool C. difficile Toxin (PCR) NEGATIVE Stl C. difficile Toxin Epiderm 027 PRESUMPTIVE NEGATIVE Phosphorus Level 2.9 White Blood Count 12.0 Red Blood Count 3.60 Hemoglobin 10.7 Hematocrit 33.3 Mean Corpuscular Volume 92.4 Mean Corpuscular Hemoglobin 29.6 Mean Corpuscular Hemoglobin Concent 32.0 Red Cell Distribution Width 15.2 Platelet Count 335 Mean Platelet Volume 7.2 Prothrombin Time 11.4 Prothromb Time International Ratio 1.0 Activated Partial Thromboplast Time 57.8 Date/Time Source Procedure Growth Status 11/23/16 19:26 Blood Peripheral Aerobic Blood Culture - Final NO GROWTH IN 5 DAYS Complete 11/23/16 19:26 Blood Peripheral Anaerobic Blood Culture - Final NO GROWTH IN 5 DAYS Complete 11/08/16 14:15 Stool Stool Stool Occult Blood ([facility]) - Final HEMOCCULT NEGATIVE Complete 11/27/16 09:55 Sputum Endotracheal Gram Stain - Final Complete 11/27/16 09:55 Sputum Culture - Final Klebsiella Pneumoniae Stenotrophomonas Maltophilia Pseudomonas Aeruginosa Complete 11/11/16 01:15 Urine Catheterized Urine Urine Culture - Final Ana Albicans Complete Anish Riggins MD Dec 05, 2016 08:13
[2016-12-05] MEDS: predniSONE 20 MG TAB PO SCH (08:37)
[2016-12-05] MEDS: DIGOXIN 0.125 MG TAB PO SCH (08:37)
[2016-12-05] MEDS: AMIODARONE 200 MG TAB OG-TUBE SCH ×2 (08:37→20:35)
[2016-12-05] MEDS: FAMOTIDINE 20 MG TAB NG SCH ×2 (08:38→20:35)
[2016-12-05] MEDS: INSULIN DETEMIR 100 UNITS/ML VIAL SQ SCH ×2 (08:38→20:36)
[2016-12-05] MEDS: LISINOPRIL 10 MG TAB PO SCH (08:38)
[2016-12-05] MEDS: SODIUM CHLORIDE 0.9% FLUSH 10 ML FLUSH SCH ×2 (08:39→20:35)
[2016-12-05] MEDS: ARTIFICIAL TEARS OPTH OINT 3.5 APPLIC/3.5 GM TUBO EACH EYE SCH ×2 (08:39→20:35)
[2016-12-05] MEDS: SODIUM CHLORIDE 0.9% FLUSH 10 ML FLUSH IV FLUSH SCH (08:41)
[2016-12-05] MEDS: SODIUM CHLORIDE 0.9% FLUSH 10 ML FLUSH IVF SCH (08:41)
[2016-12-05] MEDS: HEPARIN 25,000 UNITS-D5W 250 ML - PREMIX IV SCH (11:26)
[2016-12-05] MEDS: LABETALOL HCL 100 MG/20 ML VIAL IV PUSH PRN (11:26)
[2016-12-05] MEDS: hydrALAZINE HCL 20 MG/ML VIAL IV PUSH PRN (11:27)
--- NOTE | 2016-12-05 12:49 | HHI.CCPN ---
Subjective Remarks/Hospital Course 56-year-old very pleasant gentleman with past medical history of COPD, and hypertension presents complaining of shortness of breath and nausea, generalized fatigue and chills for 2 days. He thinks it has been from being out in the heat. Denies any fever, chest pain, vomiting, abdominal pain, focal weakness or numbness. In the emergency department his saturation was in mid 80s on arrival with auditory wheezing and tachypnea. He was placed on 4 liters of NC and saturating in the low 90. He does not use oxygen at home. He also mentioned 2 days ago, he came home and was sitting in a chair and was taking his shoes off when he passed out. States he woke up and was still on the chair. This has never happen before. 10/25: Patient intubated secondary to increasing oxygen requirements, altered mental status. Discussed with son. Somewhat hypertensive post intubation. 10/26: Placed on rotaprone bed last evening. Flolan initiated. Saturations improved. Afebrile. Remains on Nimbex drip. 10/27: T max 99.7. Tolerated on not prone position 2 hours yesterday. Tolerating trickle feeds. FiO2 down to 55% 10/28: Tmax 99.9. When unprone for chest x-ray this a.m. desaturated. Currently on 90% FiO2. Actually hypertensive. No bowel movements. Remains paralyzed 10/29: Remains intubated sedated on continuous Prone therapy Except for chest x- ray. Fever 100.8. Panculture requested. Zyvox added. Continue IV sedation with propofol and fentanyl and Versed, neuromuscular paralysis with Nimbex 10/30: Prone cycle changed to 8 hr prone, 1 hr supine from 10/29. Due to hypoxia will continue with same cycle today. Chest x-ray remains unchanged. Patient remains severely hypoxemic FiO2 at 75% PEEP at 16. WBC count worsened to 18. Remains neuromuscularly paralyzed. 10/31: Patient remains critically ill but stable. Oxygen saturation 95% on 55 of FiO2 and PEEP of 16. Reduce PEEP to 14, FiO2 to 50% and start weaning Flolan. Increase supine time to 4 hours, reduce Prone time to 6 hours 11/01: Patient remains intubated sedated critically ill on neuromuscular paralysis. FiO2 reduced to 50, I will attempt PEEP wean gradually to 12 today. Prone/supine cycles will be changed to 6 hours each 11/02: FiO2 remains at 50%, PEEP reduced from 14 to 12 today, TV increased to 600 and RR to 20, in anticipation of discontinuing prone therapy, which will be DCd today. Off Flolan for 2 days 11/03: off pronation. fio2 up to 65% , peep 12. agitation causing desaturation. minimal improvements. 11/04: good diuresis yesterday, but despite that, fio2 persists at 65% and spo2 decreasing to 91% today. no real improvements and some worsening of pulmonary function despite ongoing aggressive therapies. still not safe for SBT given hypoxia. also severely hypertensive this morning. 11/05: continues to diurese well and Cr still at baseline. fio2 at 90% however, and no clinical improvements in mental status or hypoxia. still unsafe for SBT given hypoxemia. off pathway. hypertension under much better control. poor neuro status is concerning. 11/06: Remains severely hypoxemic. FiO2 was 100% PEEP 14. I reduce FiO2 to 90% after increasing PEEP to 16. Developed a flutter with RVR overnight, currently on Cardizem drip. Unable to do SBT due to very high settings 11/07: Remains hypoxemic and but able to wean FiO2 down to 80% with PEEP of 16. Remains unresponsive on sedation. Unable to trach due to his high vent settings and high FiO2. Remains on Cardizem and 15 mg per hour, with rate controlled a flutter. We'll start by mouth Cardizem in an attempt to wean IV Cardizem 11/08: Remains critically ill hypoxic but FiO2 now weaned to 60%, PEEP remains at 16. Very heavily sedated no withdrawal to pain. Will hold all continuos sedation. Sputum culture with Klebsiella sensitive to Rocephin. A flutter persistent, will start IV heparin 11/09 Patient is sedated with Diprivan and intubated, On Cardizem drip 15mg/hr for Aflutter. Heparin drip stated yesterday. 11/10 Patient remains sedated and intubated. On Heparin drip. Persistent fever with Tmax 102.5. ETT was replaced yesterday. 11/11 Patient was placed on Cardizem and amio drips overnight for Afib with RVR. Sedated with Diprivan and intubated. On Heparin drip. T;99.3 this morning. 11/12 Patient remains intubated and sedated with Diprivan. On Cardizem drip 15mg/ hr. Afebrile, Tmax 100.6 11/13 Patient is sedate with Diprivan and intubated. In Afib with RVR now on Amio drip. Tmax 100,4 11/14 Remains intubated sedated with propofol and fentanyl. Afib rate controlled , remains on amiodarone and Cardizem gtt. Fio2 remains high at 70%, PEEP 12. CXR persistent bibasilar infiltrates/effusion 11/15: Currently sedated with propofol and fentanyl drips. Currently in A. fib/ flutter on amiodarone drip and Cardizem drip. PEEP increased to 14. FiO2 65. 11/16: Tmax 100.1. Patient more alert and tachycardic this AM. Adding midazolam gtt for sedation and currently tolerating tube feeding. Positive BM. PEEP to 12. FiO2 75% 11/17: Afebrile. FiO2 down to 60%. PEEP set 12. Multiple tracheostomy hopefully on Saturday. Heart rate better control. 11/18: Afebrile. Discontinuing amiodarone drip today and switching to oral. FiO2 between 60 and 70%. Restarting epoprostenol in attempt to get FiO2 down to 50% for tracheostomy tomorrow 11/19 No events overnight. Sedated with Diprivan, Fentanyl and versed. Still requiring high O2 - on PRVC with PEEP;12 and FIO2 70%. Afebrile. 11/20 Patient remains sedated with Diprivan, versed, Fentanyl and intubated. On PRVC with PEEP: 12, FIO2 50% , sats 88-90%. On Heparin drip. 11/21: Tmax 99.4. Tolerating tube feeds. Remains on heparin drip. FiO2 down to 55%. PEEP of 10. Eyes open blinks spontaneously. Does squeeze and weakly on left side with encouragement 11/22: Intubated heavily sedated. FiO2 50%, remains on Flolan. PEEP 10. Bumex 1 mg 1 and Diamox 500 mg 1 IV. She will negative balance. Heparinized tube feeds on hold for tracheostomy today at 12. Remains in atrial flutter 11/23 Patient remains sedated with Diprivan, Fentanyl, Versed and intubated. On Heparin drip. For CT guided thoracentesis today. On APRV 11/24 Patient remains sedated and intubated. 20Fr CT placed yesterday for right sided PTX. Spiked fever with T 101.6. Remains on Heparin drip. 11/25 Patient remains intubated with Diprivan, fentanyl and intubated. On PRVC with PEEP: 10, FIO2 50%. Afebrile. 11/26 Patient is sedated with Diprivan, Fentanyl and intubated. Afebrile. On Heparin drip. On PRVC with PEEP: 10, FIO2 60% 11/27 Patient is scheduled for trach in OR today. Sedated and intubated. Heparin drip is off for trach. 11/28 Patient s/p trach yesterday. Sedated with Diprivan and Fentanyl. Afebrile. On PRVC with PEEP; 10 and FIO2 50% 11/29 No events overnight. Sedated and on ventilator via trach. For PEG tube placement today. Heparin drip on hold. 11/30: Currently afebrile. MAXIMUM TEMPERATURE 100. Positive BM via fecal containing device. Tube feeds on hold secondary to plan PEG tube placement today. Heparin drip on hold as well. 12/01: Status post PEG tube placement yesterday per IR. Heparin drip and tube feeds restarted today. Restarting insulin detemir. Awake and alert and weakly follows commands on sedation 12/02: Tmax 99.3. Tube feeds restarted and tolerating. Awake and alert and weakly follows commands. Plan for MRI brain/C-spine a.m. 12/03. 12/03: Patient is awake. Tolerating PRVC, very weakly wiggling cedric toes. MRI today Subjective 12/04/16 Tolerated CPAP with high settings yesterday for several hours 15 over 5. Becomes tachypneic and pressure support wean. MRI of the C-spine shows increased signal, no cord compression. Discussed with Dr. Riggins. He is requesting flexion extension films of C spine. 12/05/16: Desaturated on CPAP today. Now on full vent support with 50% FiO2. Continues to have functional quadriparesis. Dr Riggins reviewed MRI spine- he is not sure about increased signal in cord, but there could be cervical hyperextension injury, from intubation. 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 Cannot do cspine extension/flexion films. Repeat MRI cspine in a few weeks Objective Vital Signs Date Time Temp Pulse Resp B/P (MAP) Pulse Ox O2 Delivery O2 Flow Rate FiO2 12/05/16 12:00 107 12/05/16 12:00 98.9 23 133/73 (93) 91 12/05/16 12:00 45 12/04/16 13:48 T-piece Intake and Output 12/05/16 12/05/16 12/06/16 08:00 16:00 00:00 Intake Total 1001 ml 340 ml Output Total 1350 ml Balance -349 ml 340 ml Result Diagram: 12/05/16 0417 12/04/16 0430 Imaging Last Impressions Gastrostomy Tube Placement 11/30/16 0000 Signed Impressions: Service Date/Time: Wednesday, November 30, 2016 12:22 - CONCLUSION: Uncomplicated gastrostomy tube placement as above. Jorge Jolly MD Chest X-Ray 11/30/16 0000 Signed Impressions: Service Date/Time: Wednesday, November 30, 2016 03:55 - CONCLUSION: Progression in the bilateral pleural effusions and bibasilar pulmonary infiltrates. Fito Mar Jr., MD Abdomen X-Ray 11/30/16 0000 Signed Impressions: Service Date/Time: Wednesday, November 30, 2016 09:43 - CONCLUSION: 1. No definite nasogastric catheter is identified. Repeat examination centered higher in the thorax may be performed for more definitive evaluation. Consider repositioning the nasogastric catheter prior to repeat imaging. Nico Vaughan MD Brain MRI 11/26/16 0000 Signed Impressions: Service Date/Time: Saturday, November 26, 2016 19:52 - CONCLUSION: 1. Small focal signal abnormality in the superior medial left frontal lobe. This is nonspecific. This could be the sequela from prior insult such as a contusion or small infarct. An acute infarct is not seen. A small underlying lesion could have a similar appearance. One could perform a contrast-enhanced study to determine if there is any enhancement associated with this region. 2. There are a few scattered minimal punctate areas of demyelination seen not expected for the patient's age. 3. Sinus disease. Jayson Soto MD Lower Extremity Ultrasound 9/15/17 0000 Signed Impressions: Service Date/Time: Wednesday, November 09, 2016 14:13 - CONCLUSION: Normal examination. Jayson Manning MD Liver Ultrasound 11/09/16 Signed Impressions: Service Date/Time: Wednesday, November 09, 2016 13:58 - CONCLUSION: Sono dense liver without duct dilatation. 4 mm common duct. Ward Kim MD FACR Chest CT 11/06/16 Signed Impressions: Service Date/Time: Sunday, November 06, 2016 11:24 - CONCLUSION: 1. Dense bilateral posterior lower lobe airspace consolidation consistent with aspiration versus less likely pneumonia. 2. Linear consolidation in the right middle lobe consistent with atelectasis versus aspiration. 3. Trace left and small right pleural effusions. 4. Support lines and tubes in good position. 5. Prominent coronary artery calcifications. Nico Vaughan MD Head CT 11/05/16 Signed Impressions: Service Date/Time: Saturday, November 05, 2016 21:43 - CONCLUSION: 1. No acute intracranial abnormalities. Pansinus fluid opacification. Cristofer De Santiago MD Carotid Artery Ultrasound 10/25/16 Signed Impressions: Service Date/Time: September 08:27 - CONCLUSION: Mild to moderate plaque in both carotid systems with less than 40%% diameter stenosis by velocity criteria. Jhonathan Dietz MD CT Angiography 10/25/16 Signed Impressions: Service Date/Time: September 06:12 - CONCLUSION: 1. Negative for pulmonary embolism. 2. There is a fairly large area of masslike consolidation in the medial right lung involving posterior segment right upper lobe and medial aspect of right lower lobe. There is associated right hilar and mediastinal adenopathy measuring up to 2.1 cm. Differential diagnosis includes pneumonia or underlying lung neoplasm. Close followup imaging recommended after treatment for pneumonia, to assess for underlying mass. Cristofer De Santiago MD Objective Remarks GENERAL: 56-year-old male, critically ill currently on ventilator via tracheostomy SKIN: Warm and dry. Positive intertrigo HEAD: Atraumatic. Normocephalic. EYES: Pupils equal and round about 3 mm bilaterally and reactive. No scleral icterus. No injection or drainage. ENT: No nasal bleeding or discharge. Orotracheally intubated NECK: Trachea midline. No JVD. Tracheostomy site is clean dry and intact CARDIOVASCULAR: Tachycardia, IR. S1, S2 no S4. Diminished heart sounds. Without murmur, clicks, or rubs RESPIRATORY: Bilateral mild expiratory wheezes and coarse bilateral anterior rhonchi appreciated. GASTROINTESTINAL: Abdomen soft, obese. MUSCULOSKELETAL: Extremities with trace lower extremity bilateral edema. No obvious deformities. NEUROLOGICAL: Eyes are open. Positive gag. Nods head appropriately to questions. Very Weakly follows commands bilateral upper extremities by squeezing hands, wiggles toes Date of Insertion: Nov 16, 2016 Line: PICC Side: Left Location: Antecubital A/P Assessment and Plan Neuro/Psych: Functional quadriparesis CIM/SHEFALI s/p Neuromuscular paralysis for Prone therapy Agitated Delirium, Metabolic Encephalopathy Syncope MRI C spine showing increased signals C3 to C5 region. D/W Dr. Riggins- unable to do flexion-extension films of the C-spine Dr Riggins reviewed MRI spine- not sure about increased signal in cord, but could be cervical hyperextension injury, from intubation. 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 Repeat MRI cspine in a few weeks Off all continuos sedation off 12/03/16. On Fentanyl patch 50 g per hour Continue liquid oxycodone 5 mg every 6 per tube. prn hydromorphone, fentanyl for breakthrough. Haloperidol 5mg iv q4h prn for agitation. Goal of RASS -0, Daily sedation vacation MRI brain 11/26: Small focal signal abnormality in the superior medial left frontal lobe. Could be sequela from prior insult such as a contusion or small infarct. No acute infarct MRI brain 12/[address] on admission revealed no acute intracranial findings, CT brain 11/05- no acute findings. opacification of sinuses. Carotid ultrasound less than 50% stenosis bilaterally EEG 11/20: No seizure activity. EEG 11/09: severe encephalopathy PT/OT for range of motion CV: Atrial fib/ flutter with RVR Hypertension- On Amiodarone 200mg Q12, Digoxin 0.125 mg daily(Dig. level 0.5 on 12/01). Repeat in a.m. On PO diltiazem 90 mg PO q6hr, metoprolol 50mg Q6, Clonidine 0.2mg Q8 for hypertension and Atrial fib/flutter IV heparin for anticoagulation. Repeat echo with bubble study: 11/22: No shunt seen Started Coumadin 12/04/16 and pharmacy to dose Echo 10/25 EF 60-65% Resp: Acute hypoxemic Respiratory failure - severe and persistent. s/p trach 11/27 Spontaneous Right sided PTX 2nd barotrauma COPD exacerbation Pneumonia most likely community-acquired Obesity hypoventilation syndrome Tobacco use disorder On PRVC RR 16, TV 650, IT: 1.3, PEEP: 6, FIO2 50% Tolerated CPAP 15/5 TP approximately 4 hours on 12/04/16. But failed CPAP trials today Albuterol/ipratropium aerosols every 4 hours of albuterol aerosols every 2 hours PRN. Ventilator bundle s/p trach 11/[address] Martin #8 Shiley s/p 20Fr CT placed for right PTX 11/23, monitor CT drainage CT pulmonary angio revealed no pulmonary embolus. Masslike consolidation in the posterior right upper lobe and medial right lower lobe. Lymphadenopathy to 1 cm right hilum and subcarinal. Atelectasis left lower lobe. Discontinued Prone therapy 11/02/16. Budesonide 0.5 mg/2 mL aerosols twice a day. Prednisone 20 mg daily Pulmonary/Dr. Wynne following GI: Morbid Obesity Elevated LFT's- now within normal. PEG tube placement 11/30 liver: No ductal dilatation Tube feeds resumed Vital high protein 1.5 at 40ml/hr Famotidine 20 milligrams mg twice a day for GI prophylaxis /renal: Hyponatremia Monitor renal function, I/O's, electrolytes replacement per protocol. Endo: Hyperglycemia- SSI Q6h with Regular Insulin mild protocol for glycemic control. Previously insulin detemir 62 units twice a day. Restarted 15 units twice a day 12/01. Adequate blood sugar control . Heme: Normocytic anemia Leukocytosis Monitor CBC, coags- patient is on heparin drip, Coumadin started, pharmacy to dose ID: Severe sepsis HAP Continue abx(piperacillin/tazobactam and sulfamethoxazole/trimethoprim 800/160 2 tablets 3 times a day) Sputum: Klebsiella, Stenotrophomonas and Pseudomonas 11/27 Sputum cx 11/23: Kleb, Pseudomonas, s/p (ceftriaxone and fluconazole course). ID is following-Dr. Patel s/p ceftriaxone 11/02-11/09 for Enterobacter pneumonia. Repeat sputum Klebsiella sensitive to Rocephin 10/29/16-Enterobacter in sputum, 11/06/16, 11/10 sputum- Klebsiella Urine Legionella and pneumococcal antigens negative and influenza negative C-diff PCR is negative Access RUE PICC placed 11/05 through 11/15 replaced 11/16 with left upper extremity PICC Prophylaxis - GI, famotidine - DVT - IV heparin gtt, Coumadin started 12/04/1611/09 Doppler US LE negative for DVT Palliative care is following Critical Care: Level 3 Roro Tyler MD Dec 05, 2016 12:49
[2016-12-05] MEDS ORDERED: WARFARIN SOD 2 MG TAB PO ONE (16:00)
[2016-12-05] MEDS: WARFARIN SOD 3 MG TAB PO SCH (16:01)
[2016-12-06] VITALS (23 sets, daily range): BP systolic 93–144; BP diastolic 52–77; PULSE 64–93; RESP 14–18; TEMP 98–99.2; O2SAT 88–100
[2016-12-06] MEDS: DILTIAZEM HCL 90 MG TAB PO SCH ×5 (00:14→23:46)
[2016-12-06] MEDS: METOPROLOL TARTRATE 50 MG TAB PO SCH ×5 (00:14→23:46)
[2016-12-06] MEDS: PIPERACIL-TAZO 4.5 GM PREMIX 100 ML IV SCH ×5 (00:14→23:46)
[2016-12-06] MEDS: INSULIN NovoLIN REGULAR SUPPLEMENTAL SCALE SQ SCH ×4 (02:00→20:00)
[2016-12-06] MEDS: HEPARIN 25,000 UNITS-D5W 250 ML - PREMIX IV SCH ×2 (02:29→17:04)
[2016-12-06] MEDS: CHLORHEXIDINE GLUCONATE 2 % 1 PACK (2 CLOTHS) TOP SCH (04:00)
[2016-12-06] MEDS: oxyCODONE HCL ORAL CONC 20 MG/ML SYRINGE PEG SCH ×2 (04:16→09:37)
[2016-12-06] MEDS: SULFAMETHOXAZOLE-TRIMETHOPRIM DS 800-160 MG TAB PO SCH ×3 (05:54→21:26)
[2016-12-06] MEDS: cloNIDine HCL 0.2 MG TAB OG-TUBE SCH (05:54)
[2016-12-06 06:59] LABS: APTT (PATIENT) 50.6 SEC (24.3-30.1); PROTHROMBIN TIME - PATIENT 11.5 SEC (9.8-11.6)
[2016-12-06] MEDS: RESP: BUDESONIDE 0.5 MG/2 ML NEB NEB SCH ×2 (07:37→19:12)
[2016-12-06 07:40] LABS: GLOMERULAR FILTRATION RATE 690 ML/MIN (>89)
[2016-12-06] MEDS: INSULIN DETEMIR 100 UNITS/ML VIAL SQ SCH ×2 (09:00→21:00)
[2016-12-06] MEDS: DIGOXIN 0.125 MG TAB PO SCH (09:31)
[2016-12-06] MEDS: LISINOPRIL 10 MG TAB PO SCH (09:31)
[2016-12-06] MEDS: AMIODARONE 200 MG TAB OG-TUBE SCH ×2 (09:31→21:26)
[2016-12-06] MEDS: FAMOTIDINE 20 MG TAB NG SCH ×2 (09:31→21:26)
[2016-12-06] MEDS: predniSONE 20 MG TAB PO SCH (09:31)
[2016-12-06] MEDS: ARTIFICIAL TEARS OPTH OINT 3.5 APPLIC/3.5 GM TUBO EACH EYE SCH ×2 (09:32→21:26)
[2016-12-06] MEDS: SODIUM CHLORIDE 0.9% FLUSH 10 ML FLUSH IVF SCH (09:33)
[2016-12-06] MEDS: SODIUM CHLORIDE 0.9% FLUSH 10 ML FLUSH SCH ×2 (09:33→21:26)
[2016-12-06] MEDS: SODIUM CHLORIDE 0.9% FLUSH 10 ML FLUSH IV FLUSH SCH (09:33)
[2016-12-06] MEDS: CHLORHEXIDINE 0.12% (ORAL KIT) 15 ML CUP MT SCH ×2 (09:35→21:25)
--- NOTE | 2016-12-06 10:47 | HHI.CCPN ---
Subjective Remarks/Hospital Course 56-year-old very pleasant gentleman with past medical history of COPD, and hypertension presents complaining of shortness of breath and nausea, generalized fatigue and chills for 2 days. He thinks it has been from being out in the heat. Denies any fever, chest pain, vomiting, abdominal pain, focal weakness or numbness. In the emergency department his saturation was in mid 80s on arrival with auditory wheezing and tachypnea. He was placed on 4 liters of NC and saturating in the low 90. He does not use oxygen at home. He also mentioned 2 days ago, he came home and was sitting in a chair and was taking his shoes off when he passed out. States he woke up and was still on the chair. This has never happen before. 10/25: Patient intubated secondary to increasing oxygen requirements, altered mental status. Discussed with son. Somewhat hypertensive post intubation. 10/26: Placed on rotaprone bed last evening. Flolan initiated. Saturations improved. Afebrile. Remains on Nimbex drip. 10/27: T max 99.7. Tolerated on not prone position 2 hours yesterday. Tolerating trickle feeds. FiO2 down to 55% 10/28: Tmax 99.9. When unprone for chest x-ray this a.m. desaturated. Currently on 90% FiO2. Actually hypertensive. No bowel movements. Remains paralyzed 10/29: Remains intubated sedated on continuous Prone therapy Except for chest x- ray. Fever 100.8. Panculture requested. Zyvox added. Continue IV sedation with propofol and fentanyl and Versed, neuromuscular paralysis with Nimbex 10/30: Prone cycle changed to 8 hr prone, 1 hr supine from 10/29. Due to hypoxia will continue with same cycle today. Chest x-ray remains unchanged. Patient remains severely hypoxemic FiO2 at 75% PEEP at 16. WBC count worsened to 18. Remains neuromuscularly paralyzed. 10/31: Patient remains critically ill but stable. Oxygen saturation 95% on 55 of FiO2 and PEEP of 16. Reduce PEEP to 14, FiO2 to 50% and start weaning Flolan. Increase supine time to 4 hours, reduce Prone time to 6 hours 11/01: Patient remains intubated sedated critically ill on neuromuscular paralysis. FiO2 reduced to 50, I will attempt PEEP wean gradually to 12 today. Prone/supine cycles will be changed to 6 hours each 11/02: FiO2 remains at 50%, PEEP reduced from 14 to 12 today, TV increased to 600 and RR to 20, in anticipation of discontinuing prone therapy, which will be DCd today. Off Flolan for 2 days 11/03: off pronation. fio2 up to 65% , peep 12. agitation causing desaturation. minimal improvements. 11/04: good diuresis yesterday, but despite that, fio2 persists at 65% and spo2 decreasing to 91% today. no real improvements and some worsening of pulmonary function despite ongoing aggressive therapies. still not safe for SBT given hypoxia. also severely hypertensive this morning. 11/05: continues to diurese well and Cr still at baseline. fio2 at 90% however, and no clinical improvements in mental status or hypoxia. still unsafe for SBT given hypoxemia. off pathway. hypertension under much better control. poor neuro status is concerning. 11/06: Remains severely hypoxemic. FiO2 was 100% PEEP 14. I reduce FiO2 to 90% after increasing PEEP to 16. Developed a flutter with RVR overnight, currently on Cardizem drip. Unable to do SBT due to very high settings 11/07: Remains hypoxemic and but able to wean FiO2 down to 80% with PEEP of 16. Remains unresponsive on sedation. Unable to trach due to his high vent settings and high FiO2. Remains on Cardizem and 15 mg per hour, with rate controlled a flutter. We'll start by mouth Cardizem in an attempt to wean IV Cardizem 11/08: Remains critically ill hypoxic but FiO2 now weaned to 60%, PEEP remains at 16. Very heavily sedated no withdrawal to pain. Will hold all continuos sedation. Sputum culture with Klebsiella sensitive to Rocephin. A flutter persistent, will start IV heparin 11/09 Patient is sedated with Diprivan and intubated, On Cardizem drip 15mg/hr for Aflutter. Heparin drip stated yesterday. 11/10 Patient remains sedated and intubated. On Heparin drip. Persistent fever with Tmax 102.5. ETT was replaced yesterday. 11/11 Patient was placed on Cardizem and amio drips overnight for Afib with RVR. Sedated with Diprivan and intubated. On Heparin drip. T;99.3 this morning. 11/12 Patient remains intubated and sedated with Diprivan. On Cardizem drip 15mg/ hr. Afebrile, Tmax 100.6 11/13 Patient is sedate with Diprivan and intubated. In Afib with RVR now on Amio drip. Tmax 100,4 11/14 Remains intubated sedated with propofol and fentanyl. Afib rate controlled , remains on amiodarone and Cardizem gtt. Fio2 remains high at 70%, PEEP 12. CXR persistent bibasilar infiltrates/effusion 11/15: Currently sedated with propofol and fentanyl drips. Currently in A. fib/ flutter on amiodarone drip and Cardizem drip. PEEP increased to 14. FiO2 65. 11/16: Tmax 100.1. Patient more alert and tachycardic this AM. Adding midazolam gtt for sedation and currently tolerating tube feeding. Positive BM. PEEP to 12. FiO2 75% 11/17: Afebrile. FiO2 down to 60%. PEEP set 12. Multiple tracheostomy hopefully on Saturday. Heart rate better control. 11/18: Afebrile. Discontinuing amiodarone drip today and switching to oral. FiO2 between 60 and 70%. Restarting epoprostenol in attempt to get FiO2 down to 50% for tracheostomy tomorrow 11/19 No events overnight. Sedated with Diprivan, Fentanyl and versed. Still requiring high O2 - on PRVC with PEEP;12 and FIO2 70%. Afebrile. 11/20 Patient remains sedated with Diprivan, versed, Fentanyl and intubated. On PRVC with PEEP: 12, FIO2 50% , sats 88-90%. On Heparin drip. 11/21: Tmax 99.4. Tolerating tube feeds. Remains on heparin drip. FiO2 down to 55%. PEEP of 10. Eyes open blinks spontaneously. Does squeeze and weakly on left side with encouragement 11/22: Intubated heavily sedated. FiO2 50%, remains on Flolan. PEEP 10. Bumex 1 mg 1 and Diamox 500 mg 1 IV. She will negative balance. Heparinized tube feeds on hold for tracheostomy today at 12. Remains in atrial flutter 11/23 Patient remains sedated with Diprivan, Fentanyl, Versed and intubated. On Heparin drip. For CT guided thoracentesis today. On APRV 11/24 Patient remains sedated and intubated. 20Fr CT placed yesterday for right sided PTX. Spiked fever with T 101.6. Remains on Heparin drip. 11/25 Patient remains intubated with Diprivan, fentanyl and intubated. On PRVC with PEEP: 10, FIO2 50%. Afebrile. 11/26 Patient is sedated with Diprivan, Fentanyl and intubated. Afebrile. On Heparin drip. On PRVC with PEEP: 10, FIO2 60% 11/27 Patient is scheduled for trach in OR today. Sedated and intubated. Heparin drip is off for trach. 11/28 Patient s/p trach yesterday. Sedated with Diprivan and Fentanyl. Afebrile. On PRVC with PEEP; 10 and FIO2 50% 11/29 No events overnight. Sedated and on ventilator via trach. For PEG tube placement today. Heparin drip on hold. 11/30: Currently afebrile. MAXIMUM TEMPERATURE 100. Positive BM via fecal containing device. Tube feeds on hold secondary to plan PEG tube placement today. Heparin drip on hold as well. 12/01: Status post PEG tube placement yesterday per IR. Heparin drip and tube feeds restarted today. Restarting insulin detemir. Awake and alert and weakly follows commands on sedation 12/02: Tmax 99.3. Tube feeds restarted and tolerating. Awake and alert and weakly follows commands. Plan for MRI brain/C-spine a.m. 12/03. 12/03: Patient is awake. Tolerating PRVC, very weakly wiggling cedric toes. MRI today 12/04/16: Tolerated CPAP with high settings yesterday for several hours 15 over 5. Becomes tachypneic and pressure support wean. MRI of the C-spine shows increased signal, no cord compression. Discussed with Dr. Riggins. He is requesting flexion extension films of C spine. 12/05/16: Desaturated on CPAP today. Now on full vent support with 50% FiO2. Continues to have functional quadriparesis. Dr Riggins reviewed MRI spine- he is not sure about increased signal in cord, but there could be cervical hyperextension injury, from intubation. 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 Cannot do cspine extension/flexion films. Repeat MRI c- spine in a few weeks 12/06/16: Patient remains on vent, placed on CPAP 11/29 now, on 50% FiO2. No improvement in neuro exam patient is awake. Able to minimally shrug shoulders. Continues to behave like functional quadriplegia Objective Vital Signs Date Time Temp Pulse Resp B/P (MAP) Pulse Ox O2 Delivery O2 Flow Rate FiO2 12/06/16 08:00 98.9 66 14 93/54 (67) 92 12/06/16 07:45 50 12/05/16 16:47 Ventilator Intake and Output 12/06/16 12/06/16 12/07/16 08:00 16:00 00:00 Intake Total 1365 ml Output Total 2500 ml Balance -1135 ml Result Diagram: 12/05/16 0417 12/06/16 0555 Imaging Last Impressions Gastrostomy Tube Placement 11/30/16 0000 Signed Impressions: Service Date/Time: Wednesday, November 30, 2016 12:22 - CONCLUSION: Uncomplicated gastrostomy tube placement as above. Jorge Jolly MD Chest X-Ray 11/30/16 0000 Signed Impressions: Service Date/Time: Wednesday, November 30, 2016 03:55 - CONCLUSION: Progression in the bilateral pleural effusions and bibasilar pulmonary infiltrates. Fito Mar Jr., MD Abdomen X-Ray 11/30/16 0000 Signed Impressions: Service Date/Time: Wednesday, November 30, 2016 09:43 - CONCLUSION: 1. No definite nasogastric catheter is identified. Repeat examination centered higher in the thorax may be performed for more definitive evaluation. Consider repositioning the nasogastric catheter prior to repeat imaging. Nico Vaughan MD Brain MRI 11/26/16 0000 Signed Impressions: Service Date/Time: Saturday, November 26, 2016 19:52 - CONCLUSION: 1. Small focal signal abnormality in the superior medial left frontal lobe. This is nonspecific. This could be the sequela from prior insult such as a contusion or small infarct. An acute infarct is not seen. A small underlying lesion could have a similar appearance. One could perform a contrast-enhanced study to determine if there is any enhancement associated with this region. 2. There are a few scattered minimal punctate areas of demyelination seen not expected for the patient's age. 3. Sinus disease. Jayson Soto MD Lower Extremity Ultrasound 11/09/16 Signed Impressions: Service Date/Time: Wednesday, November 09, 2016 14:13 - CONCLUSION: Normal examination. Jayson Manning MD Liver Ultrasound 11/09/16 Signed Impressions: Service Date/Time: Wednesday, November 09, 2016 13:58 - CONCLUSION: Sono dense liver without duct dilatation. 4 mm common duct. Ward Kim MD FACR Chest CT 11/06/16 Signed Impressions: Service Date/Time: Sunday, November 06, 2016 11:24 - CONCLUSION: 1. Dense bilateral posterior lower lobe airspace consolidation consistent with aspiration versus less likely pneumonia. 2. Linear consolidation in the right middle lobe consistent with atelectasis versus aspiration. 3. Trace left and small right pleural effusions. 4. Support lines and tubes in good position. 5. Prominent coronary artery calcifications. Nico Vaughan MD Head CT 11/05/16 Signed Impressions: Service Date/Time: Saturday, November 05, 2016 21:43 - CONCLUSION: 1. No acute intracranial abnormalities. Pansinus fluid opacification. Cristofer De Santiago MD Carotid Artery Ultrasound 10/25/16 Signed Impressions: Service Date/Time: September 08:27 - CONCLUSION: Mild to moderate plaque in both carotid systems with less than 40%% diameter stenosis by velocity criteria. Jhonathan Dietz MD CT Angiography 10/25/16 Signed Impressions: Service Date/Time: September 06:12 - CONCLUSION: 1. Negative for pulmonary embolism. 2. There is a fairly large area of masslike consolidation in the medial right lung involving posterior segment right upper lobe and medial aspect of right lower lobe. There is associated right hilar and mediastinal adenopathy measuring up to 2.1 cm. Differential diagnosis includes pneumonia or underlying lung neoplasm. Close followup imaging recommended after treatment for pneumonia, to assess for underlying mass. Cristofer De Santiago MD Objective Remarks GENERAL: 56-year-old male, critically ill currently on ventilator via tracheostomy SKIN: Warm and dry. Positive intertrigo HEAD: Atraumatic. Normocephalic. EYES: Pupils equal and round about 3 mm bilaterally and reactive. No scleral icterus. No injection or drainage. ENT: No nasal bleeding or discharge. NECK: Trachea midline. No JVD. Tracheostomy site is clean dry and intact CARDIOVASCULAR: Tachycardia, IR. S1, S2 no S4. Diminished heart sounds. Without murmur, clicks, or rubs RESPIRATORY: Bilateral mild expiratory wheezes and coarse bilateral anterior rhonchi appreciated. GASTROINTESTINAL: Abdomen soft, obese. MUSCULOSKELETAL: Extremities with trace lower extremity bilateral edema. No obvious deformities. NEUROLOGICAL: Eyes are open. Positive gag. Nods head appropriately to questions. Very Weakly follows commands bilateral upper extremities by squeezing hands, wiggles toes. Able to shrug shoulders Date of Insertion: Nov 16, 2016 Line: PICC Side: Left Location: Antecubital A/P Assessment and Plan Neuro/Psych: Functional quadriparesis CIM/SHEFALI s/p Neuromuscular paralysis for Prone therapy Agitated Delirium, Metabolic Encephalopathy Syncope MRI C-spine showing increased signals C3-C5 region. Dr Riggins reviewed MRI spine- not sure about increased signal in cord, but could be cervical hyperextension injury, from intubation. 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 Repeat MRI c-spine in a few weeks) Off all continuos sedation off 12/03/16. On Fentanyl patch 50 g per hour Continue liquid oxycodone 5 mg every 6 per tube. prn hydromorphone, fentanyl for breakthrough. Haloperidol 5mg iv q4h prn for agitation. Goal of RASS -0, Daily sedation vacation MRI brain 11/26: Small focal signal abnormality in the superior medial left frontal lobe. Could be sequela from prior insult such as a contusion or small infarct. No acute infarct MRI brain 12/[address] on admission revealed no acute intracranial findings, CT brain 11/05- no acute findings. opacification of sinuses. Carotid ultrasound less than 50% stenosis bilaterally EEG 11/20: No seizure activity. EEG 11/09: severe encephalopathy PT/OT for range of motion CV: Atrial fib/ flutter with RVR Hypertension- On Amiodarone 200mg Q12, Digoxin 0.125 mg daily(Dig. level 0.5 on 12/01). On PO diltiazem 90 mg PO q6hr, metoprolol 50mg Q6, Clonidine 0.2mg Q8 for hypertension and Atrial fib/flutter DC CLONIDINE 12/06/16 DUE TO INTERMITTENT HYPOTENSION IV heparin for anticoagulation. Started Coumadin 12/04/16 and pharmacy to dose Echo 10/25 EF 60-65%. Repeat echo with bubble study: 11/22: No shunt seen Resp: Acute, now chronic hypoxemic Respiratory failure s/p trach 11/27 Spontaneous Right sided PTX 2nd barotrauma COPD exacerbation Pneumonia most likely community-acquired Obesity hypoventilation syndrome Tobacco use disorder On PRVC FIO2 50%. SBT and TP as tolerated. Albuterol/ipratropium aerosols every 4 hours of albuterol aerosols every 2 hours PRN. Ventilator bundle s/p trach 11/[address] Martin #8 Shiley s/p 20Fr CT placed for right PTX 11/23, monitor CT drainage. Leave CT in place until vent settings improved CT pulmonary angio revealed no pulmonary embolus. Masslike consolidation in the posterior right upper lobe and medial right lower lobe. Lymphadenopathy to 1 cm right hilum and subcarinal. Atelectasis left lower lobe. Discontinued Prone therapy 11/02/16. Budesonide 0.5 mg/2 mL aerosols twice a day. Prednisone 20 mg daily Pulmonary/Dr. Wynne has followed GI: Morbid Obesity Elevated LFT's- now within normal. PEG tube placement 11/30 liver: No ductal dilatation Tube feeds resumed Vital high protein 1.5 at 40ml/hr Famotidine 20 milligrams mg twice a day for GI prophylaxis /renal: Hyponatremia Monitor renal function, I/O's, electrolytes replacement per protocol. Endo: Hyperglycemia- SSI Q6h with Regular Insulin mild protocol for glycemic control. Previously insulin detemir 62 units twice a day. Restarted 15 units twice a day 12/01. Adequate blood sugar control . Heme: Normocytic anemia Leukocytosis Monitor CBC, coags- patient is on heparin drip, Coumadin started, pharmacy to dose ID: Severe sepsis HAP Continue abx(piperacillin/tazobactam and sulfamethoxazole/trimethoprim 800/160 2 tablets 3 times a day) Sputum: Klebsiella, Stenotrophomonas and Pseudomonas 11/27 Sputum cx 11/23: Kleb, Pseudomonas, s/p (ceftriaxone and fluconazole course). ID is following-Dr. Patel s/p ceftriaxone 11/02-11/09 for Enterobacter pneumonia. Repeat sputum Klebsiella sensitive to Rocephin 10/29/16-Enterobacter in sputum, 11/06/16, 11/10 sputum- Klebsiella Urine Legionella and pneumococcal antigens negative and influenza negative C-diff PCR is negative Access RUE PICC placed 11/05 through 11/15 replaced 11/16 with left upper extremity PICC Prophylaxis - GI, famotidine - DVT - IV heparin gtt, Coumadin started 12/04/16. INR remains subtherapeutic, pharmacy managing 11/09 Doppler US LE negative for DVT Palliative care is following Critical Care: Level 2 Roro Tyler MD Dec 06, 2016 10:47
[2016-12-06] MEDS ORDERED: WARFARIN SOD 5 MG TAB PO ONE (16:00)
[2016-12-06] MEDS: WARFARIN SOD 3 MG TAB PO SCH (17:05)
[2016-12-06] MEDS: oxyCODONE HCL ORAL CONC 5 MG/0.25 ML SYRINGE PEG SCH ×2 (17:06→21:27)
[2016-12-06] MEDS: RESP: ALBUTEROL 2.5 MG/3 ML NEB (PRN) NEB (23:53)
[2016-12-07] VITALS (18 sets, daily range): BP systolic 112–162; BP diastolic 59–98; PULSE 64–136; RESP 14–21; TEMP 98.8–99.1; O2SAT 94–98
[2016-12-07] MEDS: INSULIN NovoLIN REGULAR SUPPLEMENTAL SCALE SQ SCH ×4 (02:00→20:00)
[2016-12-07] MEDS: oxyCODONE HCL ORAL CONC 5 MG/0.25 ML SYRINGE PEG SCH ×4 (02:58→21:48)
[2016-12-07] MEDS: CHLORHEXIDINE GLUCONATE 2 % 1 PACK (2 CLOTHS) TOP SCH (02:58)
[2016-12-07] MEDS: METOPROLOL TARTRATE 5 MG/5 ML VIAL IV PUSH PRN (03:55)
[2016-12-07 04:12] LABS: AUTOMATED NEUTROPHIL # 13.2 TH/MM3 (1.8-7.7); BASOPHIL # 0.2 TH/MM3 (0-0.2); BASOPHIL % 1.5 % (0.0-2.0); EOSINOPHIL # 0.1 TH/MM3 (0-0.4); EOSINOPHIL % 0.4 % (0.0-4.0); HEMATOCRIT 37.4 % (39.0-51.0); LYMPH % 10.1 % (9.0-44.0); LYMPHOCYTE # 1.6 TH/MM3 (1.0-4.8); MEAN CELL VOLUME 93.4 FL (80.0-100.0); MEAN CORPUSCULAR HEMOGLOBIN 30.8 PG (27.0-34.0); MONO % 3.2 % (0.0-8.0); NEUT % 84.8 % (16.0-70.0); PLATELET COUNT 372 TH/MM3 (150-450); RED BLOOD COUNT 4.01 MIL/MM3 (4.50-5.90); RED CELL DISTRIBUTION WIDTH 15.1 % (11.6-17.2); WHITE BLOOD COUNT 15.5 TH/MM3 (4.0-11.0)
[2016-12-07 04:13] LABS: HEMO FLAGS AUTO DIFF
[2016-12-07 04:22] LABS: PROTHROMBIN TIME - PATIENT 11.6 SEC (9.8-11.6)
[2016-12-07 04:26] LABS: APTT (PATIENT) 51.3 SEC (24.3-30.1)
[2016-12-07] MEDS: PIPERACIL-TAZO 4.5 GM PREMIX 100 ML IV SCH ×3 (04:49→17:44)
[2016-12-07] MEDS: DILTIAZEM HCL 90 MG TAB PO SCH ×3 (04:49→17:44)
[2016-12-07] MEDS: SULFAMETHOXAZOLE-TRIMETHOPRIM DS 800-160 MG TAB PO SCH ×3 (04:49→21:48)
[2016-12-07] MEDS: METOPROLOL TARTRATE 50 MG TAB PO SCH ×3 (04:49→17:44)
--- NOTE | 2016-12-07 05:04 | RADRPT ---
EXAM DATE/TIME: 12/07/2016 03:53 [facility] COMPARISON: CHEST SINGLE AP, December 03, 2016, 9:30. INDICATIONS : Evaluate for respiratory disease. MEDICAL HISTORY : Chronic obstructive pulmonary disease. Hypertension. Hypercholesterolemia. SURGICAL HISTORY : None. ENCOUNTER: Subsequent ACUITY: 1 week PAIN SCORE: Non-responsive. LOCATION: chest FINDINGS: A single view of the chest demonstrates right-sided chest tube without pneumothorax. Tracheostomy and left central line present. No pneumothorax. Basilar airspace disease and small effusions. CONCLUSION: 1. Basilar airspace disease and small effusions similar to December 03. Right chest tube without pneumo thorax. Cristofer De Santiago MD on December 07, 2016 at 5:01 Board Certified Radiologist. This report was verified electronically.
[2016-12-07 05:48] LABS: BANDS 15 % (0-6); METAMYELOCYTES 2 % (0-1); MYELOCYTES 5 % (0-0); NEUTROPHIL # MANUAL DIFF 14.1 TH/MM3 (1.8-7.7); POLYS (SEG NEUTROPHILS) 66 % (16-70); PROMYELOCYTES 3 % (0-0); SCAN/DIFF FINAL DIFF MANUAL; WBC DIFF SAMPLE 100
[2016-12-07 05:49] LABS: PLATELET ESTIMATE SMEAR NORMAL (NORMAL); PLATELET MORPHOLOGY NORMAL (NORMAL); TOXIC VACUOLATION PRESENT (NONE SEEN)
[2016-12-07 06:04] LABS: BLOOD UREA NITROGEN 11 MG/DL (7-18); GLOMERULAR FILTRATION RATE 597 ML/MIN (>89)
[2016-12-07 06:05] LABS: ALKALINE PHOSPHATASE 109 U/L (45-117); ALT (GPT) 83 U/L (12-78); ANION GAP 8 MEQ/L (5-15); AST (GOT) 46 U/L (15-37); BICARBONATE 26.8 MEQ/L (21.0-32.0); CHLORIDE 93 MEQ/L (98-107); POTASSIUM 4.1 MEQ/L (3.5-5.1); SODIUM (NA) 128 MEQ/L (136-145); TOTAL BILIRUBIN ADULT 0.4 MG/DL (0.2-1.0)
[2016-12-07] MEDS: RESP: BUDESONIDE 0.5 MG/2 ML NEB NEB SCH ×2 (07:26→19:31)
[2016-12-07] MEDS: HEPARIN 25,000 UNITS-D5W 250 ML - PREMIX IV SCH ×2 (07:45→21:55)
[2016-12-07] MEDS ORDERED: BUMETANIDE INJ 1 MG/4 ML VIAL IV PUSH ONE (08:45)
--- NOTE | 2016-12-07 08:48 | HHI.CCPN ---
Subjective Remarks/Hospital Course 56-year-old very pleasant gentleman with past medical history of COPD, and hypertension presents complaining of shortness of breath and nausea, generalized fatigue and chills for 2 days. He thinks it has been from being out in the heat. Denies any fever, chest pain, vomiting, abdominal pain, focal weakness or numbness. In the emergency department his saturation was in mid 80s on arrival with auditory wheezing and tachypnea. He was placed on 4 liters of NC and saturating in the low 90. He does not use oxygen at home. He also mentioned 2 days ago, he came home and was sitting in a chair and was taking his shoes off when he passed out. States he woke up and was still on the chair. This has never happen before. 10/25: Patient intubated secondary to increasing oxygen requirements, altered mental status. Discussed with son. Somewhat hypertensive post intubation. 10/26: Placed on rotaprone bed last evening. Flolan initiated. Saturations improved. Afebrile. Remains on Nimbex drip. 10/27: T max 99.7. Tolerated on not prone position 2 hours yesterday. Tolerating trickle feeds. FiO2 down to 55% 10/28: Tmax 99.9. When unprone for chest x-ray this a.m. desaturated. Currently on 90% FiO2. Actually hypertensive. No bowel movements. Remains paralyzed 10/29: Remains intubated sedated on continuous Prone therapy Except for chest x- ray. Fever 100.8. Panculture requested. Zyvox added. Continue IV sedation with propofol and fentanyl and Versed, neuromuscular paralysis with Nimbex 10/30: Prone cycle changed to 8 hr prone, 1 hr supine from 10/29. Due to hypoxia will continue with same cycle today. Chest x-ray remains unchanged. Patient remains severely hypoxemic FiO2 at 75% PEEP at 16. WBC count worsened to 18. Remains neuromuscularly paralyzed. 10/31: Patient remains critically ill but stable. Oxygen saturation 95% on 55 of FiO2 and PEEP of 16. Reduce PEEP to 14, FiO2 to 50% and start weaning Flolan. Increase supine time to 4 hours, reduce Prone time to 6 hours 11/01: Patient remains intubated sedated critically ill on neuromuscular paralysis. FiO2 reduced to 50, I will attempt PEEP wean gradually to 12 today. Prone/supine cycles will be changed to 6 hours each 11/02: FiO2 remains at 50%, PEEP reduced from 14 to 12 today, TV increased to 600 and RR to 20, in anticipation of discontinuing prone therapy, which will be DCd today. Off Flolan for 2 days 11/03: off pronation. fio2 up to 65% , peep 12. agitation causing desaturation. minimal improvements. 11/04: good diuresis yesterday, but despite that, fio2 persists at 65% and spo2 decreasing to 91% today. no real improvements and some worsening of pulmonary function despite ongoing aggressive therapies. still not safe for SBT given hypoxia. also severely hypertensive this morning. 11/05: continues to diurese well and Cr still at baseline. fio2 at 90% however, and no clinical improvements in mental status or hypoxia. still unsafe for SBT given hypoxemia. off pathway. hypertension under much better control. poor neuro status is concerning. 11/06: Remains severely hypoxemic. FiO2 was 100% PEEP 14. I reduce FiO2 to 90% after increasing PEEP to 16. Developed a flutter with RVR overnight, currently on Cardizem drip. Unable to do SBT due to very high settings 11/07: Remains hypoxemic and but able to wean FiO2 down to 80% with PEEP of 16. Remains unresponsive on sedation. Unable to trach due to his high vent settings and high FiO2. Remains on Cardizem and 15 mg per hour, with rate controlled a flutter. We'll start by mouth Cardizem in an attempt to wean IV Cardizem 11/08: Remains critically ill hypoxic but FiO2 now weaned to 60%, PEEP remains at 16. Very heavily sedated no withdrawal to pain. Will hold all continuos sedation. Sputum culture with Klebsiella sensitive to Rocephin. A flutter persistent, will start IV heparin 11/09 Patient is sedated with Diprivan and intubated, On Cardizem drip 15mg/hr for Aflutter. Heparin drip stated yesterday. 11/10 Patient remains sedated and intubated. On Heparin drip. Persistent fever with Tmax 102.5. ETT was replaced yesterday. 11/11 Patient was placed on Cardizem and amio drips overnight for Afib with RVR. Sedated with Diprivan and intubated. On Heparin drip. T;99.3 this morning. 11/12 Patient remains intubated and sedated with Diprivan. On Cardizem drip 15mg/ hr. Afebrile, Tmax 100.6 11/13 Patient is sedate with Diprivan and intubated. In Afib with RVR now on Amio drip. Tmax 100,4 11/14 Remains intubated sedated with propofol and fentanyl. Afib rate controlled , remains on amiodarone and Cardizem gtt. Fio2 remains high at 70%, PEEP 12. CXR persistent bibasilar infiltrates/effusion 11/15: Currently sedated with propofol and fentanyl drips. Currently in A. fib/ flutter on amiodarone drip and Cardizem drip. PEEP increased to 14. FiO2 65. 11/16: Tmax 100.1. Patient more alert and tachycardic this AM. Adding midazolam gtt for sedation and currently tolerating tube feeding. Positive BM. PEEP to 12. FiO2 75% 11/17: Afebrile. FiO2 down to 60%. PEEP set 12. Multiple tracheostomy hopefully on Saturday. Heart rate better control. 11/18: Afebrile. Discontinuing amiodarone drip today and switching to oral. FiO2 between 60 and 70%. Restarting epoprostenol in attempt to get FiO2 down to 50% for tracheostomy tomorrow 11/19 No events overnight. Sedated with Diprivan, Fentanyl and versed. Still requiring high O2 - on PRVC with PEEP;12 and FIO2 70%. Afebrile. 11/20 Patient remains sedated with Diprivan, versed, Fentanyl and intubated. On PRVC with PEEP: 12, FIO2 50% , sats 88-90%. On Heparin drip. 11/21: Tmax 99.4. Tolerating tube feeds. Remains on heparin drip. FiO2 down to 55%. PEEP of 10. Eyes open blinks spontaneously. Does squeeze and weakly on left side with encouragement 11/22: Intubated heavily sedated. FiO2 50%, remains on Flolan. PEEP 10. Bumex 1 mg 1 and Diamox 500 mg 1 IV. She will negative balance. Heparinized tube feeds on hold for tracheostomy today at 12. Remains in atrial flutter 11/23 Patient remains sedated with Diprivan, Fentanyl, Versed and intubated. On Heparin drip. For CT guided thoracentesis today. On APRV 11/24 Patient remains sedated and intubated. 20Fr CT placed yesterday for right sided PTX. Spiked fever with T 101.6. Remains on Heparin drip. 11/25 Patient remains intubated with Diprivan, fentanyl and intubated. On PRVC with PEEP: 10, FIO2 50%. Afebrile. 11/26 Patient is sedated with Diprivan, Fentanyl and intubated. Afebrile. On Heparin drip. On PRVC with PEEP: 10, FIO2 60% 11/27 Patient is scheduled for trach in OR today. Sedated and intubated. Heparin drip is off for trach. 11/28 Patient s/p trach yesterday. Sedated with Diprivan and Fentanyl. Afebrile. On PRVC with PEEP; 10 and FIO2 50% 11/29 No events overnight. Sedated and on ventilator via trach. For PEG tube placement today. Heparin drip on hold. 11/30: Currently afebrile. MAXIMUM TEMPERATURE 100. Positive BM via fecal containing device. Tube feeds on hold secondary to plan PEG tube placement today. Heparin drip on hold as well. 12/01: Status post PEG tube placement yesterday per IR. Heparin drip and tube feeds restarted today. Restarting insulin detemir. Awake and alert and weakly follows commands on sedation 12/02: Tmax 99.3. Tube feeds restarted and tolerating. Awake and alert and weakly follows commands. Plan for MRI brain/C-spine a.m. 12/03. 12/03: Patient is awake. Tolerating PRVC, very weakly wiggling cedric toes. MRI today 12/04/16: Tolerated CPAP with high settings yesterday for several hours 15 over 5. Becomes tachypneic and pressure support wean. MRI of the C-spine shows increased signal, no cord compression. Discussed with Dr. Riggins. He is requesting flexion extension films of C spine. 12/05/16: Desaturated on CPAP today. Now on full vent support with 50% FiO2. Continues to have functional quadriparesis. Dr Riggins reviewed MRI spine- he is not sure about increased signal in cord, but there could be cervical hyperextension injury, from intubation. 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 Cannot do cspine extension/flexion films. Repeat MRI c- spine in a few weeks 12/06/16: Patient remains on vent, placed on CPAP 11/29 now, on 50% FiO2. No improvement in neuro exam patient is awake. Able to minimally shrug shoulders. Continues to behave like functional quadriplegia 12/07/16: Tolerated CPAP approximately 6 hours yesterday but did not tolerate TPs. Having anxiety and some frustration due to neuromuscular weakness. I will add Lexapro. Give Bumex 1 mg x1, CXR shows pleural effusions. Objective Vital Signs Date Time Temp Pulse Resp B/P (MAP) Pulse Ox O2 Delivery O2 Flow Rate FiO2 12/07/16 07:26 98 50 12/07/16 06:00 64 12/07/16 04:00 98.9 19 162/98 (119) 12/06/16 14:34 T-piece 6.00 Intake and Output 12/07/16 12/07/16 12/08/16 08:00 16:00 00:00 Intake Total 1290 ml Output Total 2550 ml Balance -1260 ml Result Diagram: 12/07/16 0300 12/07/16 0300 Imaging Last Impressions Gastrostomy Tube Placement 11/30/16 0000 Signed Impressions: Service Date/Time: Wednesday, November 30, 2016 12:22 - CONCLUSION: Uncomplicated gastrostomy tube placement as above. Jorge Jolly MD Chest X-Ray 11/30/16 0000 Signed Impressions: Service Date/Time: Wednesday, November 30, 2016 03:55 - CONCLUSION: Progression in the bilateral pleural effusions and bibasilar pulmonary infiltrates. Fito Mar Jr., MD Abdomen X-Ray 11/30/16 0000 Signed Impressions: Service Date/Time: Wednesday, November 30, 2016 09:43 - CONCLUSION: 1. No definite nasogastric catheter is identified. Repeat examination centered higher in the thorax may be performed for more definitive evaluation. Consider repositioning the nasogastric catheter prior to repeat imaging. Nico Vaughan MD Brain MRI 11/26/16 0000 Signed Impressions: Service Date/Time: Saturday, November 26, 2016 19:52 - CONCLUSION: 1. Small focal signal abnormality in the superior medial left frontal lobe. This is nonspecific. This could be the sequela from prior insult such as a contusion or small infarct. An acute infarct is not seen. A small underlying lesion could have a similar appearance. One could perform a contrast-enhanced study to determine if there is any enhancement associated with this region. 2. There are a few scattered minimal punctate areas of demyelination seen not expected for the patient's age. 3. Sinus disease. Jayson Soto MD Lower Extremity Ultrasound 11/09/16 Signed Impressions: Service Date/Time: Wednesday, November 09, 2016 14:13 - CONCLUSION: Normal examination. Jayson Manning MD Liver Ultrasound 11/09/16 Signed Impressions: Service Date/Time: Wednesday, November 09, 2016 13:58 - CONCLUSION: Sono dense liver without duct dilatation. 4 mm common duct. Ward Kim MD FACR Chest CT 11/06/16 Signed Impressions: Service Date/Time: Sunday, November 06, 2016 11:24 - CONCLUSION: 1. Dense bilateral posterior lower lobe airspace consolidation consistent with aspiration versus less likely pneumonia. 2. Linear consolidation in the right middle lobe consistent with atelectasis versus aspiration. 3. Trace left and small right pleural effusions. 4. Support lines and tubes in good position. 5. Prominent coronary artery calcifications. Nico Vaughan MD Head CT 11/05/16 Signed Impressions: Service Date/Time: Saturday, November 05, 2016 21:43 - CONCLUSION: 1. No acute intracranial abnormalities. Pansinus fluid opacification. Cristofer De Santiago MD Carotid Artery Ultrasound 10/25/16 Signed Impressions: Service Date/Time: September 08:27 - CONCLUSION: Mild to moderate plaque in both carotid systems with less than 40%% diameter stenosis by velocity criteria. Jhonathan Dietz MD CT Angiography 10/25/16 Signed Impressions: Service Date/Time: September 06:12 - CONCLUSION: 1. Negative for pulmonary embolism. 2. There is a fairly large area of masslike consolidation in the medial right lung involving posterior segment right upper lobe and medial aspect of right lower lobe. There is associated right hilar and mediastinal adenopathy measuring up to 2.1 cm. Differential diagnosis includes pneumonia or underlying lung neoplasm. Close followup imaging recommended after treatment for pneumonia, to assess for underlying mass. Cristofer De Santiago MD Objective Remarks GENERAL: 56-year-old male, critically ill currently on ventilator via tracheostomy SKIN: Warm and dry. Positive intertrigo HEAD: Atraumatic. Normocephalic. EYES: Pupils equal and round about 3 mm bilaterally and reactive. No scleral icterus. No injection or drainage. ENT: No nasal bleeding or discharge. NECK: Trachea midline. No JVD. Tracheostomy site is clean dry and intact CARDIOVASCULAR: Tachycardia, IR. S1, S2 no S4. Diminished heart sounds. Without murmur, clicks, or rubs RESPIRATORY: Bilateral mild expiratory wheezes and coarse bilateral anterior rhonchi appreciated. GASTROINTESTINAL: Abdomen soft, obese. MUSCULOSKELETAL: Extremities with trace lower extremity bilateral edema. No obvious deformities. NEUROLOGICAL: Eyes are open. Positive gag. Very Weakly follows commands bilateral upper extremities by squeezing hands, wiggles toes. Able to shrug shoulders Date of Insertion: Nov 16, 2016 Line: PICC Side: Left Location: Antecubital A/P Assessment and Plan Neuro/Psych: Functional quadriparesis CIM/SHEFALI s/p Neuromuscular paralysis for Prone therapy Agitated Delirium, Metabolic Encephalopathy Syncope MRI C-spine showing increased signals C3-C5 region. Dr Riggins reviewed MRI spine- not sure about increased signal in cord, but could be cervical hyperextension injury, from intubation according to Dr. Riggins. Unable to do flexion-extension films of the C-spine (trached patient). 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 ) Off all continuos sedation off 12/03/16. On Fentanyl patch 50 g per hour Continue liquid oxycodone 5 mg every 6 per tube. prn hydromorphone, fentanyl for breakthrough. Haloperidol 5mg iv q4h prn for agitation. Start Lexapro 10 mg qhs Goal of RASS -0, Daily sedation vacation MRI brain 11/26: Small focal signal abnormality in the superior medial left frontal lobe. Could be sequela from prior insult such as a contusion or small infarct. No acute infarct MRI brain 12/[address] on admission revealed no acute intracranial findings, CT brain 11/05- no acute findings. opacification of sinuses. Carotid ultrasound less than 50% stenosis bilaterally EEG 11/20: No seizure activity. EEG 11/09: severe encephalopathy PT/OT for range of motion CV: Atrial fib/ flutter with RVR Hypertension, now intermittently hypotensive On Amiodarone 200mg Q12, Digoxin 0.125 mg daily(Dig. level 0.5 on 12/01). On PO diltiazem 90 mg PO q6hr, metoprolol 50mg Q6 DC CLONIDINE 12/06/16 DUE TO INTERMITTENT HYPOTENSION IV heparin for anticoagulation. Started Coumadin 12/04/16 and pharmacy dosing Echo 10/25 EF 60-65%. Repeat echo with bubble study: 11/22: No shunt seen Bumex 1 mg IV x1 12/07 Resp: Acute, now chronic hypoxemic Respiratory failure s/p trach 11/27 Spontaneous Right sided PTX 2nd barotrauma COPD exacerbation Pneumonia most likely community-acquired Obesity hypoventilation syndrome Tobacco use disorder On PRVC FIO2 50%. SBT and TP as tolerated. Tolerated CPAP for 6 hours yesterday 12/06/16 Albuterol/ipratropium aerosols every 4 hours of albuterol aerosols every 2 hours PRN. Ventilator bundle s/p trach 11/[address] Martin #8 Shiley s/p 20Fr CT placed for right PTX 11/23, monitor CT drainage. Leave CT in place until vent settings improved CT pulmonary angio revealed no pulmonary embolus. Masslike consolidation in the posterior right upper lobe and medial right lower lobe. Lymphadenopathy to 1 cm right hilum and subcarinal. Atelectasis left lower lobe. Discontinued Prone therapy 11/02/16. Budesonide 0.5 mg/2 mL aerosols twice a day. Prednisone 20 mg daily Pulmonary/Dr. Wynne has followed GI: Morbid Obesity Elevated LFT's- now within normal. PEG tube placement 11/30 liver: No ductal dilatation Tube feeds resumed Vital high protein 1.5 at 40ml/hr Famotidine 20 milligrams mg twice a day for GI prophylaxis /renal: Hyponatremia Monitor renal function, I/O's, electrolytes replacement per protocol. Endo: Hyperglycemia- SSI Q6h with Regular Insulin mild protocol for glycemic control. Previously insulin detemir 62 units twice a day. Restarted 15 units twice a day 12/01. Adequate blood sugar control . Heme: Normocytic anemia Leukocytosis Monitor CBC, coags- patient is on heparin drip, Coumadin pharmacy dosing ID: Severe sepsis HAP Continue abx(piperacillin/tazobactam and sulfamethoxazole/trimethoprim 800/160 2 tablets 3 times a day) Sputum: Klebsiella, Stenotrophomonas and Pseudomonas 11/27 Sputum cx 11/23: Kleb, Pseudomonas, s/p (ceftriaxone and fluconazole course). ID is following-Dr. Patel s/p ceftriaxone 11/02-11/09 for Enterobacter pneumonia. Repeat sputum Klebsiella sensitive to Rocephin 10/29/16-Enterobacter in sputum, 11/06/16, 11/10 sputum- Klebsiella Urine Legionella and pneumococcal antigens negative and influenza negative C-diff PCR is negative Access RUE PICC placed 11/05 through 11/15 replaced 11/16 with left upper extremity PICC Prophylaxis - GI, famotidine - DVT - IV heparin gtt, Coumadin started 12/04/16. INR remains subtherapeutic, pharmacy managing 11/09 Doppler US LE negative for DVT Palliative care is following Critical Care: Level 2 Roro Tyler MD Dec 07, 2016 08:48
[2016-12-07] MEDS: SODIUM CHLORIDE 0.9% FLUSH 10 ML FLUSH SCH ×2 (09:11→21:48)
[2016-12-07] MEDS: SODIUM CHLORIDE 0.9% FLUSH 10 ML FLUSH IV FLUSH SCH (09:11)
[2016-12-07] MEDS: AMIODARONE 200 MG TAB OG-TUBE SCH ×2 (09:12→21:48)
[2016-12-07] MEDS: DIGOXIN 0.125 MG TAB PO SCH (09:12)
[2016-12-07] MEDS: FAMOTIDINE 20 MG TAB NG SCH ×2 (09:12→21:48)
[2016-12-07] MEDS: SODIUM CHLORIDE 0.9% FLUSH 10 ML FLUSH IVF SCH (09:12)
[2016-12-07] MEDS: predniSONE 20 MG TAB PO SCH (09:12)
[2016-12-07] MEDS: LISINOPRIL 10 MG TAB PO SCH (09:13)
[2016-12-07] MEDS: INSULIN DETEMIR 100 UNITS/ML VIAL SQ SCH ×2 (09:13→21:00)
[2016-12-07] MEDS: ARTIFICIAL TEARS OPTH OINT 3.5 APPLIC/3.5 GM TUBO EACH EYE SCH ×2 (09:14→21:49)
[2016-12-07] MEDS: CHLORHEXIDINE 0.12% (ORAL KIT) 15 ML CUP MT SCH ×2 (09:15→20:00)
[2016-12-07] MEDS: REMOVE OLD FENTANYL PATCH T-DERMAL SCH (14:00)
[2016-12-07] MEDS: SODIUM CHLORIDE 1 GRAM TAB PO SCH ×2 (14:08→21:48)
[2016-12-07] MEDS: fentaNYL 50 MCG/HR PATCH T-DERMAL SCH (14:09)
[2016-12-07] MEDS: WARFARIN SOD 5 MG TAB PO SCH (15:10)
[2016-12-07] MEDS ORDERED: WARFARIN SOD 5 MG TAB PO ONE (16:00)
[2016-12-07] MEDS: RESP: ALBUTEROL 2.5 MG/3 ML NEB (PRN) NEB (16:38)
--- NOTE | 2016-12-07 16:47 | HHI.IDPN ---
Subjective Subjective Remarks afebrile tolerating CPAP co chills + diarrhea, repeat C.diff negative Antibiotics zosyn bactrim Allergies: Coded Allergies: No Known Allergies (Unverified , 10/25/16) Objective . Vital Signs Date Time Temp Pulse Resp B/P (MAP) Pulse Ox O2 Delivery O2 Flow Rate FiO2 12/07/16 16:31 94 50 12/07/16 07:26 98 50 12/07/16 06:00 64 12/07/16 04:10 94 50 12/07/16 04:00 98.9 134 19 162/98 (119) 94 12/07/16 04:00 134 12/07/16 04:00 50 12/07/16 02:00 89 12/07/16 01:03 94 50 12/07/16 00:00 99.0 136 21 155/94 (114) 94 12/07/16 00:00 136 12/07/16 00:00 50 12/06/16 22:02 93 50 12/06/16 22:00 72 12/06/16 22:00 72 12/06/16 20:00 99.2 72 16 127/66 (86) 95 12/06/16 20:00 72 12/06/16 20:00 50 12/06/16 19:12 96 50 12/06/16 18:00 66 . Laboratory Tests Test 12/07/16 03:00 White Blood Count 15.5 TH/MM3 Red Blood Count 4.01 MIL/MM3 Hemoglobin 12.3 GM/DL Hematocrit 37.4 % Mean Corpuscular Volume 93.4 FL Mean Corpuscular Hemoglobin 30.8 PG Mean Corpuscular Hemoglobin Concent 33.0 % Red Cell Distribution Width 15.1 % Platelet Count 372 TH/MM3 Mean Platelet Volume 7.5 FL Neutrophils (%) (Auto) 84.8 % Lymphocytes (%) (Auto) 10.1 % Monocytes (%) (Auto) 3.2 % Eosinophils (%) (Auto) 0.4 % Basophils (%) (Auto) 1.5 % Neutrophils # (Auto) 13.2 TH/MM3 Lymphocytes # (Auto) 1.6 TH/MM3 Monocytes # (Auto) 0.5 TH/MM3 Eosinophils # (Auto) 0.1 TH/MM3 Basophils # (Auto) 0.2 TH/MM3 CBC Comment AUTO DIFF Differential Total Cells Counted 100 Neutrophils % (Manual) 66 % Band Neutrophils % 15 % Lymphocytes % 5 % Monocytes % 4 % Neutrophils # (Manual) 14.1 TH/MM3 Metamyelocytes 2 % Myelocytes 5 % Promyelocytes 3 % Differential Comment FINAL DIFF MANUAL Toxic Vacuolation PRESENT Platelet Estimate NORMAL Platelet Morphology Comment NORMAL Red Cell Morphology Comment NORMAL Laboratory Tests Test 12/06/16 05:55 12/07/16 03:00 Creatinine LESS THAN 0.15 MG/DL 0.17 MG/DL Estimat Glomerular Filtration Rate 690 ML/MIN 597 ML/MIN Blood Urea Nitrogen 11 MG/DL Random Glucose 150 MG/DL Total Protein 6.3 GM/DL Albumin 2.6 GM/DL Calcium Level 8.5 MG/DL Alkaline Phosphatase 109 U/L Aspartate Amino Transf (AST/SGOT) 46 U/L Alanine Aminotransferase (ALT/SGPT) 83 U/L Total Bilirubin 0.4 MG/DL Sodium Level 128 MEQ/L Potassium Level 4.1 MEQ/L Chloride Level 93 MEQ/L Carbon Dioxide Level 26.8 MEQ/L Anion Gap 8 MEQ/L Microbiology Date/Time Source Procedure Growth Status 12/07/16 15:25 Blood Line Aerobic Blood Culture Pending Received 12/07/16 15:25 Blood Line Anaerobic Blood Culture Pending Received Imaging Last Impressions Chest X-Ray 12/07/16 0600 Signed Impressions: Service Date/Time: Wednesday, December 07, 2016 03:53 - CONCLUSION: 1. Basilar airspace disease and small effusions similar to December 03. Right chest tube without pneumothorax. Cristofer De Santiago MD Cervical Spine MRI 12/03/16 0000 Signed Impressions: Service Date/Time: Saturday, December 03, 2016 13:13 - CONCLUSION: Severely limited exam. I believe there is increased signal in the cervical cord mid C3 to mid C5. Ward Kim MD FACR Brain MRI 12/03/16 0000 Signed Impressions: Service Date/Time: Saturday, December 03, 2016 13:13 - CONCLUSION: 1. There is a small area of abnormal T2 signal in the left frontal cortex this is unchanged from the previous examination dated 11/26/16. This is nonspecific in appearance on the MRI. Differential considerations would be a small area of gliosis versus an old area of contusion. Follow up examination in 6 months to document stability would be warranted. 2. No findings to indicate acute cortical infarction are identified. Román Kim MD Gastrostomy Tube Placement 11/30/16 Signed Impressions: Service Date/Time: Wednesday, November 30, 2016 12:22 - CONCLUSION: Uncomplicated gastrostomy tube placement as above. Jorge Jolly MD Abdomen X-Ray 11/30/16 Signed Impressions: Service Date/Time: Wednesday, November 30, 2016 09:43 - CONCLUSION: 1. No definite nasogastric catheter is identified. Repeat examination centered higher in the thorax may be performed for more definitive evaluation. Consider repositioning the nasogastric catheter prior to repeat imaging. Nico Vaughan MD Lower Extremity Ultrasound 11/09/16 Signed Impressions: Service Date/Time: Wednesday, November 09, 2016 14:13 - CONCLUSION: Normal examination. Jayson Manning MD Liver Ultrasound 11/09/16 Signed Impressions: Service Date/Time: Wednesday, November 09, 2016 13:58 - CONCLUSION: Sono dense liver without duct dilatation. 4 mm common duct. Ward Kim MD FACR Chest CT 11/06/16 Signed Impressions: Service Date/Time: Sunday, November 06, 2016 11:24 - CONCLUSION: 1. Dense bilateral posterior lower lobe airspace consolidation consistent with aspiration versus less likely pneumonia. 2. Linear consolidation in the right middle lobe consistent with atelectasis versus aspiration. 3. Trace left and small right pleural effusions. 4. Support lines and tubes in good position. 5. Prominent coronary artery calcifications. Nico Vaughan MD Head CT 11/05/16 Signed Impressions: Service Date/Time: Saturday, November 05, 2016 21:43 - CONCLUSION: 1. No acute intracranial abnormalities. Pansinus fluid opacification. Cristofer De Santiago MD Carotid Artery Ultrasound 10/25/16 Signed Impressions: Service Date/Time: September 08:27 - CONCLUSION: Mild to moderate plaque in both carotid systems with less than 40%% diameter stenosis by velocity criteria. Jhonathan Dietz MD CT Angiography 10/25/16 Signed Impressions: Service Date/Time: September 06:12 - CONCLUSION: 1. Negative for pulmonary embolism. 2. There is a fairly large area of masslike consolidation in the medial right lung involving posterior segment right upper lobe and medial aspect of right lower lobe. There is associated right hilar and mediastinal adenopathy measuring up to 2.1 cm. Differential diagnosis includes pneumonia or underlying lung neoplasm. Close followup imaging recommended after treatment for pneumonia, to assess for underlying mass. Cristofer De Santiago MD Physical Exam CONSTITUTIONAL/GENERAL: This is a morbidly obese patient, TUBES/LINES/DRAINS: SKIN: No jaundice, rashes, or lesions. Skin temperature appropriate. Not diaphoretic. NECK: trach in place CARDIOVASCULAR: Afib on the monitor tachycardia without murmurs, gallops, or rubs. No JVD. Peripheral pulses symmetric. RESPIRATORY/CHEST: Symmetric, unlabored respirations. coarse BS CT R with serous drainage up to 100 cc/d GASTROINTESTINAL: Abdomen soft, not tender moderately distended. No hepato- splenomegaly, or palpable masses. No guarding. Bowel sounds present. Dign[place] in [place] with liquid brown stool GENITOURINARY: Without palpable bladder distension. Santiago catheter in place with somewhat cloudy urine MUSCULOSKELETAL: Extremities without clubbing, cyanosis, less prominent edema NEUROLOGICAL: awake alert , follows commands PSYCHIATRIC: calm Assessment & Plan Remarks PNA, Kleb pneumo - failrly sensitive - PSAE , Stenotrophomonas and Kleb in the sputum ? unclear is Steno malt is a coloniser vs a true pathogen ARDS Acute VDRF, tolerating weaning - sp trach R sided PTX sp CT Abx associated diarrhea, C.diff negative Abnormal UA, CANDIDURIA Persiastent leukocytosis and bandemia Persistent fever, now low grade Leukocytosis - worsening again Abx associated diarrhea REC's: cont zosyn, cont Bactrim fu P blood, urine, sputum clx will revisit abx early next week after P clx are back Mariana Patel MD Dec 07, 2016 16:47
[2016-12-07] MEDS: ESCITALOPRAM OXALATE 10 MG TAB PO SCH (21:48)
[2016-12-08] VITALS (20 sets, daily range): BP systolic 93–125; BP diastolic 50–71; PULSE 66–114; RESP 15–18; TEMP 98.2–99.3; O2SAT 92–98
[2016-12-08] MEDS: PIPERACIL-TAZO 4.5 GM PREMIX 100 ML IV SCH ×4 (00:51→15:45)
[2016-12-08] MEDS: DILTIAZEM HCL 90 MG TAB PO SCH ×4 (00:51→18:49)
[2016-12-08] MEDS: METOPROLOL TARTRATE 50 MG TAB PO SCH ×4 (00:51→18:49)
[2016-12-08] MEDS: INSULIN NovoLIN REGULAR SUPPLEMENTAL SCALE SQ SCH ×3 (00:55→13:16)
[2016-12-08] MEDS: CHLORHEXIDINE GLUCONATE 2 % 1 PACK (2 CLOTHS) TOP SCH (04:00)
[2016-12-08] MEDS: oxyCODONE HCL ORAL CONC 5 MG/0.25 ML SYRINGE PEG SCH ×3 (06:36→15:47)
[2016-12-08] MEDS: SULFAMETHOXAZOLE-TRIMETHOPRIM DS 800-160 MG TAB PO SCH ×2 (06:37→13:09)
[2016-12-08 07:09] LABS: HEMATOCRIT 29.2 % (39.0-51.0); MEAN CELL VOLUME 92.3 FL (80.0-100.0); MEAN CORPUSCULAR HEMOGLOBIN 30.8 PG (27.0-34.0); MEAN CORPUSCULAR HGB CONC 33.4 % (32.0-36.0); PLATELET COUNT 304 TH/MM3 (150-450); RED BLOOD COUNT 3.17 MIL/MM3 (4.50-5.90); RED CELL DISTRIBUTION WIDTH 15.1 % (11.6-17.2); REVIEW FLAG FINAL; WHITE BLOOD COUNT 14.1 TH/MM3 (4.0-11.0)
[2016-12-08 07:20] LABS: APTT (PATIENT) 63.2 SEC (24.3-30.1); INTERNATIONAL NORMALIZED RATIO 1.4 RATIO; PROTHROMBIN TIME - PATIENT 15.6 SEC (9.8-11.6)
[2016-12-08 07:23] LABS: GLOMERULAR FILTRATION RATE 690 ML/MIN (>89)
[2016-12-08] MEDS: RESP: BUDESONIDE 0.5 MG/2 ML NEB NEB SCH ×2 (07:25→19:35)
[2016-12-08] MEDS: SODIUM CHLORIDE 1 GRAM TAB PO SCH ×2 (08:21→21:00)
[2016-12-08] MEDS: predniSONE 20 MG TAB PO SCH (08:21)
[2016-12-08] MEDS: AMIODARONE 200 MG TAB OG-TUBE SCH ×2 (08:21→21:00)
[2016-12-08] MEDS: SODIUM CHLORIDE 0.9% FLUSH 10 ML FLUSH SCH ×2 (08:21→21:00)
[2016-12-08] MEDS: FAMOTIDINE 20 MG TAB NG SCH ×2 (08:21→21:00)
[2016-12-08] MEDS: DIGOXIN 0.125 MG TAB PO SCH (08:21)
[2016-12-08] MEDS: LISINOPRIL 10 MG TAB PO SCH (08:22)
[2016-12-08] MEDS: ARTIFICIAL TEARS OPTH OINT 3.5 APPLIC/3.5 GM TUBO EACH EYE SCH ×2 (08:22→21:00)
[2016-12-08] MEDS: INSULIN DETEMIR 100 UNITS/ML VIAL SQ SCH (08:23)
[2016-12-08] MEDS: CHLORHEXIDINE 0.12% (ORAL KIT) 15 ML CUP MT SCH ×2 (08:27→20:00)
[2016-12-08] MEDS: SODIUM CHLORIDE 0.9% FLUSH 10 ML FLUSH IV FLUSH SCH (11:27)
[2016-12-08] MEDS: HEPARIN 25,000 UNITS-D5W 250 ML - PREMIX IV SCH (12:53)
--- NOTE | 2016-12-08 14:23 | HHI.CCPN ---
Subjective Remarks/Hospital Course 56-year-old very pleasant gentleman with past medical history of COPD, and hypertension presents complaining of shortness of breath and nausea, generalized fatigue and chills for 2 days. He thinks it has been from being out in the heat. Denies any fever, chest pain, vomiting, abdominal pain, focal weakness or numbness. In the emergency department his saturation was in mid 80s on arrival with auditory wheezing and tachypnea. He was placed on 4 liters of NC and saturating in the low 90. He does not use oxygen at home. He also mentioned 2 days ago, he came home and was sitting in a chair and was taking his shoes off when he passed out. States he woke up and was still on the chair. This has never happen before. 10/25: Patient intubated secondary to increasing oxygen requirements, altered mental status. Discussed with son. Somewhat hypertensive post intubation. 10/26: Placed on rotaprone bed last evening. Flolan initiated. Saturations improved. Afebrile. Remains on Nimbex drip. 10/27: T max 99.7. Tolerated on not prone position 2 hours yesterday. Tolerating trickle feeds. FiO2 down to 55% 10/28: Tmax 99.9. When unprone for chest x-ray this a.m. desaturated. Currently on 90% FiO2. Actually hypertensive. No bowel movements. Remains paralyzed 10/29: Remains intubated sedated on continuous Prone therapy Except for chest x- ray. Fever 100.8. Panculture requested. Zyvox added. Continue IV sedation with propofol and fentanyl and Versed, neuromuscular paralysis with Nimbex 10/30: Prone cycle changed to 8 hr prone, 1 hr supine from 10/29. Due to hypoxia will continue with same cycle today. Chest x-ray remains unchanged. Patient remains severely hypoxemic FiO2 at 75% PEEP at 16. WBC count worsened to 18. Remains neuromuscularly paralyzed. 10/31: Patient remains critically ill but stable. Oxygen saturation 95% on 55 of FiO2 and PEEP of 16. Reduce PEEP to 14, FiO2 to 50% and start weaning Flolan. Increase supine time to 4 hours, reduce Prone time to 6 hours 11/01: Patient remains intubated sedated critically ill on neuromuscular paralysis. FiO2 reduced to 50, I will attempt PEEP wean gradually to 12 today. Prone/supine cycles will be changed to 6 hours each 11/02: FiO2 remains at 50%, PEEP reduced from 14 to 12 today, TV increased to 600 and RR to 20, in anticipation of discontinuing prone therapy, which will be DCd today. Off Flolan for 2 days 11/03: off pronation. fio2 up to 65% , peep 12. agitation causing desaturation. minimal improvements. 11/04: good diuresis yesterday, but despite that, fio2 persists at 65% and spo2 decreasing to 91% today. no real improvements and some worsening of pulmonary function despite ongoing aggressive therapies. still not safe for SBT given hypoxia. also severely hypertensive this morning. 11/05: continues to diurese well and Cr still at baseline. fio2 at 90% however, and no clinical improvements in mental status or hypoxia. still unsafe for SBT given hypoxemia. off pathway. hypertension under much better control. poor neuro status is concerning. 11/06: Remains severely hypoxemic. FiO2 was 100% PEEP 14. I reduce FiO2 to 90% after increasing PEEP to 16. Developed a flutter with RVR overnight, currently on Cardizem drip. Unable to do SBT due to very high settings 11/07: Remains hypoxemic and but able to wean FiO2 down to 80% with PEEP of 16. Remains unresponsive on sedation. Unable to trach due to his high vent settings and high FiO2. Remains on Cardizem and 15 mg per hour, with rate controlled a flutter. We'll start by mouth Cardizem in an attempt to wean IV Cardizem 11/08: Remains critically ill hypoxic but FiO2 now weaned to 60%, PEEP remains at 16. Very heavily sedated no withdrawal to pain. Will hold all continuos sedation. Sputum culture with Klebsiella sensitive to Rocephin. A flutter persistent, will start IV heparin 11/09 Patient is sedated with Diprivan and intubated, On Cardizem drip 15mg/hr for Aflutter. Heparin drip stated yesterday. 11/10 Patient remains sedated and intubated. On Heparin drip. Persistent fever with Tmax 102.5. ETT was replaced yesterday. 11/11 Patient was placed on Cardizem and amio drips overnight for Afib with RVR. Sedated with Diprivan and intubated. On Heparin drip. T;99.3 this morning. 11/12 Patient remains intubated and sedated with Diprivan. On Cardizem drip 15mg/ hr. Afebrile, Tmax 100.6 11/13 Patient is sedate with Diprivan and intubated. In Afib with RVR now on Amio drip. Tmax 100,4 11/14 Remains intubated sedated with propofol and fentanyl. Afib rate controlled , remains on amiodarone and Cardizem gtt. Fio2 remains high at 70%, PEEP 12. CXR persistent bibasilar infiltrates/effusion 11/15: Currently sedated with propofol and fentanyl drips. Currently in A. fib/ flutter on amiodarone drip and Cardizem drip. PEEP increased to 14. FiO2 65. 11/16: Tmax 100.1. Patient more alert and tachycardic this AM. Adding midazolam gtt for sedation and currently tolerating tube feeding. Positive BM. PEEP to 12. FiO2 75% 11/17: Afebrile. FiO2 down to 60%. PEEP set 12. Multiple tracheostomy hopefully on Saturday. Heart rate better control. 11/18: Afebrile. Discontinuing amiodarone drip today and switching to oral. FiO2 between 60 and 70%. Restarting epoprostenol in attempt to get FiO2 down to 50% for tracheostomy tomorrow 11/19 No events overnight. Sedated with Diprivan, Fentanyl and versed. Still requiring high O2 - on PRVC with PEEP;12 and FIO2 70%. Afebrile. 11/20 Patient remains sedated with Diprivan, versed, Fentanyl and intubated. On PRVC with PEEP: 12, FIO2 50% , sats 88-90%. On Heparin drip. 11/21: Tmax 99.4. Tolerating tube feeds. Remains on heparin drip. FiO2 down to 55%. PEEP of 10. Eyes open blinks spontaneously. Does squeeze and weakly on left side with encouragement 11/22: Intubated heavily sedated. FiO2 50%, remains on Flolan. PEEP 10. Bumex 1 mg 1 and Diamox 500 mg 1 IV. She will negative balance. Heparinized tube feeds on hold for tracheostomy today at 12. Remains in atrial flutter 11/23 Patient remains sedated with Diprivan, Fentanyl, Versed and intubated. On Heparin drip. For CT guided thoracentesis today. On APRV 11/24 Patient remains sedated and intubated. 20Fr CT placed yesterday for right sided PTX. Spiked fever with T 101.6. Remains on Heparin drip. 11/25 Patient remains intubated with Diprivan, fentanyl and intubated. On PRVC with PEEP: 10, FIO2 50%. Afebrile. 11/26 Patient is sedated with Diprivan, Fentanyl and intubated. Afebrile. On Heparin drip. On PRVC with PEEP: 10, FIO2 60% 11/27 Patient is scheduled for trach in OR today. Sedated and intubated. Heparin drip is off for trach. 11/28 Patient s/p trach yesterday. Sedated with Diprivan and Fentanyl. Afebrile. On PRVC with PEEP; 10 and FIO2 50% 11/29 No events overnight. Sedated and on ventilator via trach. For PEG tube placement today. Heparin drip on hold. 11/30: Currently afebrile. MAXIMUM TEMPERATURE 100. Positive BM via fecal containing device. Tube feeds on hold secondary to plan PEG tube placement today. Heparin drip on hold as well. 12/01: Status post PEG tube placement yesterday per IR. Heparin drip and tube feeds restarted today. Restarting insulin detemir. Awake and alert and weakly follows commands on sedation 12/02: Tmax 99.3. Tube feeds restarted and tolerating. Awake and alert and weakly follows commands. Plan for MRI brain/C-spine a.m. 12/03. 12/03: Patient is awake. Tolerating PRVC, very weakly wiggling cedric toes. MRI today 12/04/16: Tolerated CPAP with high settings yesterday for several hours 15 over 5. Becomes tachypneic and pressure support wean. MRI of the C-spine shows increased signal, no cord compression. Discussed with Dr. Riggins. He is requesting flexion extension films of C spine. 12/05/16: Desaturated on CPAP today. Now on full vent support with 50% FiO2. Continues to have functional quadriparesis. Dr Riggins reviewed MRI spine- he is not sure about increased signal in cord, but there could be cervical hyperextension injury, from intubation. 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 Cannot do cspine extension/flexion films. Repeat MRI c- spine in a few weeks 12/06/16: Patient remains on vent, placed on CPAP 11/29 now, on 50% FiO2. No improvement in neuro exam patient is awake. Able to minimally shrug shoulders. Continues to behave like functional quadriplegia 12/07/16: Tolerated CPAP approximately 6 hours yesterday but did not tolerate TPs. Having anxiety and some frustration due to neuromuscular weakness. I will add Lexapro. Give Bumex 1 mg x1, CXR shows pleural effusions. 12/08: On 11/29 PS since AM. CBC chest x-ray stable. Lexapro added yesterday for depression. Urine output 3.5 L in 24 hours Objective Vital Signs Date Time Temp Pulse Resp B/P (MAP) Pulse Ox O2 Delivery O2 Flow Rate FiO2 12/08/16 12:33 94 50 12/08/16 12:30 15 12/08/16 12:00 99.3 74 93/50 (64) 12/06/16 14:34 T-piece 6.00 Intake and Output 12/08/16 12/08/16 12/09/16 08:00 16:00 00:00 Intake Total 1040 ml Output Total 1030 ml Balance 10 ml Result Diagram: 12/08/16 0630 12/08/16 0630 Imaging Last Impressions Gastrostomy Tube Placement 11/30/16 0000 Signed Impressions: Service Date/Time: Wednesday, November 30, 2016 12:22 - CONCLUSION: Uncomplicated gastrostomy tube placement as above. Jorge Jolly MD Chest X-Ray 11/30/16 0000 Signed Impressions: Service Date/Time: Wednesday, November 30, 2016 03:55 - CONCLUSION: Progression in the bilateral pleural effusions and bibasilar pulmonary infiltrates. Fito Mar Jr., MD Abdomen X-Ray 11/30/16 0000 Signed Impressions: Service Date/Time: Wednesday, November 30, 2016 09:43 - CONCLUSION: 1. No definite nasogastric catheter is identified. Repeat examination centered higher in the thorax may be performed for more definitive evaluation. Consider repositioning the nasogastric catheter prior to repeat imaging. Nico Vaughan MD Brain MRI 11/26/16 Signed Impressions: Service Date/Time: Saturday, November 26, 2016 19:52 - CONCLUSION: 1. Small focal signal abnormality in the superior medial left frontal lobe. This is nonspecific. This could be the sequela from prior insult such as a contusion or small infarct. An acute infarct is not seen. A small underlying lesion could have a similar appearance. One could perform a contrast-enhanced study to determine if there is any enhancement associated with this region. 2. There are a few scattered minimal punctate areas of demyelination seen not expected for the patient's age. 3. Sinus disease. Jayson Soto MD Lower Extremity Ultrasound 11/09/16 0000 Signed Impressions: Service Date/Time: Wednesday, November 09, 2016 14:13 - CONCLUSION: Normal examination. Jayson Manning MD Liver Ultrasound 11/09/16 0000 Signed Impressions: Service Date/Time: Wednesday, November 09, 2016 13:58 - CONCLUSION: Sono dense liver without duct dilatation. 4 mm common duct. Ward Kim MD FACR Chest CT 11/06/16 0000 Signed Impressions: Service Date/Time: Sunday, November 06, 2016 11:24 - CONCLUSION: 1. Dense bilateral posterior lower lobe airspace consolidation consistent with aspiration versus less likely pneumonia. 2. Linear consolidation in the right middle lobe consistent with atelectasis versus aspiration. 3. Trace left and small right pleural effusions. 4. Support lines and tubes in good position. 5. Prominent coronary artery calcifications. Nico Vaughan MD Head CT 11/05/16 0000 Signed Impressions: Service Date/Time: Saturday, November 05, 2016 21:43 - CONCLUSION: 1. No acute intracranial abnormalities. Pansinus fluid opacification. Cristofer De Santiago MD Carotid Artery Ultrasound 10/25/16 0000 Signed Impressions: Service Date/Time: September 08:27 - CONCLUSION: Mild to moderate plaque in both carotid systems with less than 40%% diameter stenosis by velocity criteria. Jhonathan Dietz MD CT Angiography 10/25/16 0000 Signed Impressions: Service Date/Time: September 06:12 - CONCLUSION: 1. Negative for pulmonary embolism. 2. There is a fairly large area of masslike consolidation in the medial right lung involving posterior segment right upper lobe and medial aspect of right lower lobe. There is associated right hilar and mediastinal adenopathy measuring up to 2.1 cm. Differential diagnosis includes pneumonia or underlying lung neoplasm. Close followup imaging recommended after treatment for pneumonia, to assess for underlying mass. Cristofer De Santiago MD Objective Remarks GENERAL: 56-year-old male, critically ill currently on CPAP via tracheostomy SKIN: Warm and dry. Positive intertrigo HEAD: Atraumatic. Normocephalic. EYES: Pupils equal and round about 3 mm bilaterally and reactive. No scleral icterus. No injection or drainage. ENT: No nasal bleeding or discharge. NECK: Trachea midline. No JVD. Tracheostomy site is clean dry and intact CARDIOVASCULAR: Tachycardia, IR. S1, S2 no S4. Diminished heart sounds. Without murmur, clicks, or rubs RESPIRATORY: Bilateral mild expiratory wheezes and coarse bilateral anterior rhonchi appreciated. Tolerating CPAP GASTROINTESTINAL: Abdomen soft, obese. MUSCULOSKELETAL: Extremities with trace lower extremity bilateral edema. No obvious deformities. NEUROLOGICAL: Eyes are open. Positive gag. Weakly moves fingers and toes. Able to shrug shoulders Date of Insertion: Nov 16, 2016 Line: PICC Side: Left Location: Antecubital A/P Assessment and Plan Neuro/Psych: Functional quadriparesis CIM/SHEFALI s/p Neuromuscular paralysis for Prone therapy Agitated Delirium, Metabolic Encephalopathy Syncope MRI C-spine showing increased signals C3-C5 region. Dr Riggins reviewed MRI spine- not sure about increased signal in cord, but could be cervical hyperextension injury, from intubation according to Dr. Riggins. Unable to do flexion-extension films of the C-spine (trached patient). 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 ) Off all continuos sedation off 12/03/16. On Fentanyl patch 50 g per hour Continue liquid oxycodone 5 mg every 6 per tube. prn hydromorphone, fentanyl for breakthrough. Haloperidol 5mg iv q4h prn for agitation. Lexapro 10 mg qhs from 12/07/16. Goal of RASS -0, Daily sedation vacation MRI brain 11/26: Small focal signal abnormality in the superior medial left frontal lobe. Could be sequela from prior insult such as a contusion or small infarct. No acute infarct MRI brain 12/[address] on admission revealed no acute intracranial findings, CT brain 11/05- no acute findings. opacification of sinuses. Carotid ultrasound less than 50% stenosis bilaterally. EEG 11/20: No seizure activity. EEG 11/09: severe encephalopathy PT/OT for range of motion, up to stretcher chair as tolerated CV: Atrial fib/ flutter with RVR Hypertension, now intermittently hypotensive On Amiodarone 200mg Q12, Digoxin 0.125 mg daily(Dig. level 0.5 on 12/01). On PO diltiazem 90 mg PO q6hr, metoprolol 50mg Q6 DCd CLONIDINE 12/06/16 DUE TO INTERMITTENT HYPOTENSION IV heparin for anticoagulation. Started Coumadin 12/04/16 and pharmacy dosing Echo 10/25 EF 60-65%. Repeat echo with bubble study: 11/22: No shunt seen Bumex 1 mg IV x1 12/07 Resp: Acute, now chronic hypoxemic Respiratory failure s/p trach 11/27 Spontaneous Right sided PTX 2nd barotrauma COPD exacerbation Pneumonia most likely community-acquired Obesity hypoventilation syndrome Tobacco use disorder On PRVC FIO2 50%. SBT and TP as tolerated. Tolerating CPAP today. Attempt CPAP again Albuterol/ipratropium aerosols every 4 hours of albuterol aerosols every 2 hours PRN. Ventilator bundle s/p trach 11/[address] Martin #[address] [place]. s/p 20Fr CT placed for right PTX 11/23, monitor CT drainage. Leave CT in place until vent settings improved CT pulmonary angio revealed no pulmonary embolus. Masslike consolidation in the posterior right upper lobe and medial right lower lobe. Lymphadenopathy to 1 cm right hilum and subcarinal. Atelectasis left lower lobe. Discontinued Prone therapy 11/02/16. Budesonide 0.5 mg/2 mL aerosols twice a day. Prednisone 20 mg daily Pulmonary/Dr. Wynne has followed GI: Morbid Obesity Elevated LFT's- now within normal. PEG tube placement 11/30 liver: No ductal dilatation Tube feeds resumed Vital high protein 1.5 at 40ml/hr Famotidine 20 milligrams mg twice a day for GI prophylaxis /renal: Hyponatremia Monitor renal function, I/O's, electrolytes replacement per protocol. Endo: Hyperglycemia- SSI Q6h with Regular Insulin mild protocol for glycemic control. Previously insulin detemir 62 units twice a day. Restarted 15 units twice a day 12/01. Adequate blood sugar control . Heme: Normocytic anemia Leukocytosis Monitor CBC, coags- patient is on heparin drip, Coumadin pharmacy dosing ID: Severe sepsis HAP Continue abx(piperacillin/tazobactam and sulfamethoxazole/trimethoprim 800/160 2 tablets 3 times a day) Sputum: Klebsiella, Stenotrophomonas and Pseudomonas 11/27 Sputum cx 11/23: Kleb, Pseudomonas, s/p (ceftriaxone and fluconazole course). ID is following-Dr. Patel s/p ceftriaxone 11/02-11/09 for Enterobacter pneumonia. Repeat sputum Klebsiella sensitive to Rocephin 10/29/16-Enterobacter in sputum, 11/06/16, 11/10 sputum- Klebsiella Urine Legionella and pneumococcal antigens negative and influenza negative C-diff PCR is negative Access RUE PICC placed 11/05 through 11/15 replaced 11/16 with left upper extremity PICC Prophylaxis - GI, famotidine - DVT - IV heparin gtt, Coumadin started 12/04/16. INR remains subtherapeutic, pharmacy managing 11/09 Doppler US LE negative for DVT Palliative care is following Critical Care: Level 2 Roro Tyler MD Dec 08, 2016 14:23
[2016-12-08] MEDS: WARFARIN SOD 5 MG TAB PO SCH (15:45)
[2016-12-08] MEDS ORDERED: WARFARIN SOD 2 MG TAB PO ONE (16:00)
[2016-12-09] VITALS (16 sets, daily range): BP systolic 102–129; BP diastolic 56–71; PULSE 66–137; RESP 14–46; TEMP 98.2–99; O2SAT 93–100
[2016-12-09] MEDS: DILTIAZEM HCL 90 MG TAB PO SCH ×4 (01:54→17:31)
[2016-12-09] MEDS: METOPROLOL TARTRATE 50 MG TAB PO SCH ×4 (01:55→17:31)
[2016-12-09] MEDS: CHLORHEXIDINE GLUCONATE 2 % 1 PACK (2 CLOTHS) TOP SCH (01:55)
[2016-12-09] MEDS: HEPARIN 25,000 UNITS-D5W 250 ML - PREMIX IV SCH ×2 (01:58→15:58)
[2016-12-09] MEDS: INSULIN NovoLIN REGULAR SUPPLEMENTAL SCALE SQ SCH ×4 (02:00→20:00)
[2016-12-09] MEDS: PIPERACIL-TAZO 4.5 GM PREMIX 100 ML IV SCH ×4 (02:01→16:02)
[2016-12-09] MEDS: oxyCODONE HCL ORAL CONC 5 MG/0.25 ML SYRINGE PEG SCH ×3 (02:02→16:00)
[2016-12-09] MEDS: ESCITALOPRAM OXALATE 10 MG TAB PO SCH (02:02)
[2016-12-09] MEDS: SULFAMETHOXAZOLE-TRIMETHOPRIM DS 800-160 MG TAB PO SCH ×3 (02:02→14:01)
[2016-12-09 06:23] LABS: INTERNATIONAL NORMALIZED RATIO 1.1 RATIO; PROTHROMBIN TIME - PATIENT 12.7 SEC (9.8-11.6)
[2016-12-09 06:40] LABS: ANION GAP 7 MEQ/L (5-15); AST (GOT) 28 U/L (15-37); BICARBONATE 28.3 MEQ/L (21.0-32.0); BLOOD UREA NITROGEN 15 MG/DL (7-18); CHLORIDE 92 MEQ/L (98-107); GLOMERULAR FILTRATION RATE 690 ML/MIN (>89); POTASSIUM 3.9 MEQ/L (3.5-5.1); SODIUM (NA) 127 MEQ/L (136-145)
[2016-12-09 06:44] LABS: ALKALINE PHOSPHATASE 91 U/L (45-117); ALT (GPT) 67 U/L (12-78); TOTAL BILIRUBIN ADULT 0.3 MG/DL (0.2-1.0)
[2016-12-09] MEDS: RESP: BUDESONIDE 0.5 MG/2 ML NEB NEB SCH ×2 (07:43→19:39)
[2016-12-09] MEDS: SODIUM CHLORIDE 1 GRAM TAB PO SCH (07:48)
[2016-12-09] MEDS: FAMOTIDINE 20 MG TAB NG SCH (07:48)
[2016-12-09] MEDS: AMIODARONE 200 MG TAB OG-TUBE SCH (07:48)
[2016-12-09] MEDS: DIGOXIN 0.125 MG TAB PO SCH (07:48)
[2016-12-09] MEDS: LISINOPRIL 10 MG TAB PO SCH (07:49)
[2016-12-09] MEDS: predniSONE 20 MG TAB PO SCH (07:49)
[2016-12-09] MEDS: ARTIFICIAL TEARS OPTH OINT 3.5 APPLIC/3.5 GM TUBO EACH EYE SCH (08:21)
[2016-12-09] MEDS: INSULIN DETEMIR 100 UNITS/ML VIAL SQ SCH ×2 (08:22→21:00)
--- NOTE | 2016-12-09 09:01 | HHI.CCPN ---
Subjective Remarks/Hospital Course 56-year-old very pleasant gentleman with past medical history of COPD, and hypertension presents complaining of shortness of breath and nausea, generalized fatigue and chills for 2 days. He thinks it has been from being out in the heat. Denies any fever, chest pain, vomiting, abdominal pain, focal weakness or numbness. In the emergency department his saturation was in mid 80s on arrival with auditory wheezing and tachypnea. He was placed on 4 liters of NC and saturating in the low 90. He does not use oxygen at home. He also mentioned 2 days ago, he came home and was sitting in a chair and was taking his shoes off when he passed out. States he woke up and was still on the chair. This has never happen before. 10/25: Patient intubated secondary to increasing oxygen requirements, altered mental status. Discussed with son. Somewhat hypertensive post intubation. 10/26: Placed on rotaprone bed last evening. Flolan initiated. Saturations improved. Afebrile. Remains on Nimbex drip. 10/27: T max 99.7. Tolerated on not prone position 2 hours yesterday. Tolerating trickle feeds. FiO2 down to 55% 10/28: Tmax 99.9. When unprone for chest x-ray this a.m. desaturated. Currently on 90% FiO2. Actually hypertensive. No bowel movements. Remains paralyzed 10/29: Remains intubated sedated on continuous Prone therapy Except for chest x- ray. Fever 100.8. Panculture requested. Zyvox added. Continue IV sedation with propofol and fentanyl and Versed, neuromuscular paralysis with Nimbex 10/30: Prone cycle changed to 8 hr prone, 1 hr supine from 10/29. Due to hypoxia will continue with same cycle today. Chest x-ray remains unchanged. Patient remains severely hypoxemic FiO2 at 75% PEEP at 16. WBC count worsened to 18. Remains neuromuscularly paralyzed. 10/31: Patient remains critically ill but stable. Oxygen saturation 95% on 55 of FiO2 and PEEP of 16. Reduce PEEP to 14, FiO2 to 50% and start weaning Flolan. Increase supine time to 4 hours, reduce Prone time to 6 hours 11/01: Patient remains intubated sedated critically ill on neuromuscular paralysis. FiO2 reduced to 50, I will attempt PEEP wean gradually to 12 today. Prone/supine cycles will be changed to 6 hours each 11/02: FiO2 remains at 50%, PEEP reduced from 14 to 12 today, TV increased to 600 and RR to 20, in anticipation of discontinuing prone therapy, which will be DCd today. Off Flolan for 2 days 11/03: off pronation. fio2 up to 65% , peep 12. agitation causing desaturation. minimal improvements. 11/04: good diuresis yesterday, but despite that, fio2 persists at 65% and spo2 decreasing to 91% today. no real improvements and some worsening of pulmonary function despite ongoing aggressive therapies. still not safe for SBT given hypoxia. also severely hypertensive this morning. 11/05: continues to diurese well and Cr still at baseline. fio2 at 90% however, and no clinical improvements in mental status or hypoxia. still unsafe for SBT given hypoxemia. off pathway. hypertension under much better control. poor neuro status is concerning. 11/06: Remains severely hypoxemic. FiO2 was 100% PEEP 14. I reduce FiO2 to 90% after increasing PEEP to 16. Developed a flutter with RVR overnight, currently on Cardizem drip. Unable to do SBT due to very high settings 11/07: Remains hypoxemic and but able to wean FiO2 down to 80% with PEEP of 16. Remains unresponsive on sedation. Unable to trach due to his high vent settings and high FiO2. Remains on Cardizem and 15 mg per hour, with rate controlled a flutter. We'll start by mouth Cardizem in an attempt to wean IV Cardizem 11/08: Remains critically ill hypoxic but FiO2 now weaned to 60%, PEEP remains at 16. Very heavily sedated no withdrawal to pain. Will hold all continuos sedation. Sputum culture with Klebsiella sensitive to Rocephin. A flutter persistent, will start IV heparin 11/09 Patient is sedated with Diprivan and intubated, On Cardizem drip 15mg/hr for Aflutter. Heparin drip stated yesterday. 11/10 Patient remains sedated and intubated. On Heparin drip. Persistent fever with Tmax 102.5. ETT was replaced yesterday. 11/11 Patient was placed on Cardizem and amio drips overnight for Afib with RVR. Sedated with Diprivan and intubated. On Heparin drip. T;99.3 this morning. 11/12 Patient remains intubated and sedated with Diprivan. On Cardizem drip 15mg/ hr. Afebrile, Tmax 100.6 11/13 Patient is sedate with Diprivan and intubated. In Afib with RVR now on Amio drip. Tmax 100,4 11/14 Remains intubated sedated with propofol and fentanyl. Afib rate controlled , remains on amiodarone and Cardizem gtt. Fio2 remains high at 70%, PEEP 12. CXR persistent bibasilar infiltrates/effusion 11/15: Currently sedated with propofol and fentanyl drips. Currently in A. fib/ flutter on amiodarone drip and Cardizem drip. PEEP increased to 14. FiO2 65. 11/16: Tmax 100.1. Patient more alert and tachycardic this AM. Adding midazolam gtt for sedation and currently tolerating tube feeding. Positive BM. PEEP to 12. FiO2 75% 11/17: Afebrile. FiO2 down to 60%. PEEP set 12. Multiple tracheostomy hopefully on Saturday. Heart rate better control. 11/18: Afebrile. Discontinuing amiodarone drip today and switching to oral. FiO2 between 60 and 70%. Restarting epoprostenol in attempt to get FiO2 down to 50% for tracheostomy tomorrow 11/19 No events overnight. Sedated with Diprivan, Fentanyl and versed. Still requiring high O2 - on PRVC with PEEP;12 and FIO2 70%. Afebrile. 11/20 Patient remains sedated with Diprivan, versed, Fentanyl and intubated. On PRVC with PEEP: 12, FIO2 50% , sats 88-90%. On Heparin drip. 11/21: Tmax 99.4. Tolerating tube feeds. Remains on heparin drip. FiO2 down to 55%. PEEP of 10. Eyes open blinks spontaneously. Does squeeze and weakly on left side with encouragement 11/22: Intubated heavily sedated. FiO2 50%, remains on Flolan. PEEP 10. Bumex 1 mg 1 and Diamox 500 mg 1 IV. She will negative balance. Heparinized tube feeds on hold for tracheostomy today at 12. Remains in atrial flutter 11/23 Patient remains sedated with Diprivan, Fentanyl, Versed and intubated. On Heparin drip. For CT guided thoracentesis today. On APRV 11/24 Patient remains sedated and intubated. 20Fr CT placed yesterday for right sided PTX. Spiked fever with T 101.6. Remains on Heparin drip. 11/25 Patient remains intubated with Diprivan, fentanyl and intubated. On PRVC with PEEP: 10, FIO2 50%. Afebrile. 11/26 Patient is sedated with Diprivan, Fentanyl and intubated. Afebrile. On Heparin drip. On PRVC with PEEP: 10, FIO2 60% 11/27 Patient is scheduled for trach in OR today. Sedated and intubated. Heparin drip is off for trach. 11/28 Patient s/p trach yesterday. Sedated with Diprivan and Fentanyl. Afebrile. On PRVC with PEEP; 10 and FIO2 50% 11/29 No events overnight. Sedated and on ventilator via trach. For PEG tube placement today. Heparin drip on hold. 11/30: Currently afebrile. MAXIMUM TEMPERATURE 100. Positive BM via fecal containing device. Tube feeds on hold secondary to plan PEG tube placement today. Heparin drip on hold as well. 12/01: Status post PEG tube placement yesterday per IR. Heparin drip and tube feeds restarted today. Restarting insulin detemir. Awake and alert and weakly follows commands on sedation 12/02: Tmax 99.3. Tube feeds restarted and tolerating. Awake and alert and weakly follows commands. Plan for MRI brain/C-spine a.m. 12/03. 12/03: Patient is awake. Tolerating PRVC, very weakly wiggling cedric toes. MRI today 12/04/16: Tolerated CPAP with high settings yesterday for several hours 15 over 5. Becomes tachypneic and pressure support wean. MRI of the C-spine shows increased signal, no cord compression. Discussed with Dr. Riggins. He is requesting flexion extension films of C spine. 12/05/16: Desaturated on CPAP today. Now on full vent support with 50% FiO2. Continues to have functional quadriparesis. Dr Riggins reviewed MRI spine- he is not sure about increased signal in cord, but there could be cervical hyperextension injury, from intubation. 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 Cannot do cspine extension/flexion films. Repeat MRI c- spine in a few weeks 12/06/16: Patient remains on vent, placed on CPAP 11/29 now, on 50% FiO2. No improvement in neuro exam patient is awake. Able to minimally shrug shoulders. Continues to behave like functional quadriplegia 12/07/16: Tolerated CPAP approximately 6 hours yesterday but did not tolerate TPs. Having anxiety and some frustration due to neuromuscular weakness. I will add Lexapro. Give Bumex 1 mg x1, CXR shows pleural effusions. 12/08: On 11/29 PS since AM. CBC chest x-ray stable. Lexapro added yesterday for depression. Urine output 3.5 L in 24 hours 12/09: Tolerated CPAP well yesterday tolerated TPs for 2 hours but failed to CPAP today due to hypoxia and tachycardia. Currently on PRVC received metoprolol and fentanyl push with improved heart rate Objective Vital Signs Date Time Temp Pulse Resp B/P (MAP) Pulse Ox O2 Delivery O2 Flow Rate FiO2 12/09/16 07:43 95 55 12/09/16 06:00 92 12/09/16 04:00 98.8 17 109/58 (75) 12/08/16 14:16 T-piece 12/06/16 14:34 6.00 Intake and Output 12/09/16 12/09/16 12/10/16 08:00 16:00 00:00 Intake Total 669 ml Output Total 1250 ml Balance -581 ml Result Diagram: 12/08/16 0630 12/09/16 0525 Imaging Last Impressions Gastrostomy Tube Placement 11/30/16 0000 Signed Impressions: Service Date/Time: Wednesday, November 30, 2016 12:22 - CONCLUSION: Uncomplicated gastrostomy tube placement as above. Jorge Jolly MD Chest X-Ray 11/30/16 0000 Signed Impressions: Service Date/Time: Wednesday, November 30, 2016 03:55 - CONCLUSION: Progression in the bilateral pleural effusions and bibasilar pulmonary infiltrates. Fito Mar Jr., MD Abdomen X-Ray 11/30/16 0000 Signed Impressions: Service Date/Time: Wednesday, November 30, 2016 09:43 - CONCLUSION: 1. No definite nasogastric catheter is identified. Repeat examination centered higher in the thorax may be performed for more definitive evaluation. Consider repositioning the nasogastric catheter prior to repeat imaging. Nico Vaughan MD Brain MRI 11/26/16 0000 Signed Impressions: Service Date/Time: Saturday, November 26, 2016 19:52 - CONCLUSION: 1. Small focal signal abnormality in the superior medial left frontal lobe. This is nonspecific. This could be the sequela from prior insult such as a contusion or small infarct. An acute infarct is not seen. A small underlying lesion could have a similar appearance. One could perform a contrast-enhanced study to determine if there is any enhancement associated with this region. 2. There are a few scattered minimal punctate areas of demyelination seen not expected for the patient's age. 3. Sinus disease. Jayson Soto MD Lower Extremity Ultrasound 11/09/16 0000 Signed Impressions: Service Date/Time: Wednesday, November 09, 2016 14:13 - CONCLUSION: Normal examination. Jayson aMnning MD Liver Ultrasound 11/09/16 0000 Signed Impressions: Service Date/Time: Wednesday, November 09, 2016 13:58 - CONCLUSION: Sono dense liver without duct dilatation. 4 mm common duct. Ward Kim MD FACR Chest CT 11/06/16 0000 Signed Impressions: Service Date/Time: Sunday, November 06, 2016 11:24 - CONCLUSION: 1. Dense bilateral posterior lower lobe airspace consolidation consistent with aspiration versus less likely pneumonia. 2. Linear consolidation in the right middle lobe consistent with atelectasis versus aspiration. 3. Trace left and small right pleural effusions. 4. Support lines and tubes in good position. 5. Prominent coronary artery calcifications. Nico Vaughan MD Head CT 11/05/16 0000 Signed Impressions: Service Date/Time: Saturday, November 05, 2016 21:43 - CONCLUSION: 1. No acute intracranial abnormalities. Pansinus fluid opacification. Cristofer De Santiago MD Carotid Artery Ultrasound 10/25/16 0000 Signed Impressions: Service Date/Time: September 08:27 - CONCLUSION: Mild to moderate plaque in both carotid systems with less than 40%% diameter stenosis by velocity criteria. Jhonathan Dietz MD CT Angiography 10/25/16 0000 Signed Impressions: Service Date/Time: , October 25, 2016 06:12 - CONCLUSION: 1. Negative for pulmonary embolism. 2. There is a fairly large area of masslike consolidation in the medial right lung involving posterior segment right upper lobe and medial aspect of right lower lobe. There is associated right hilar and mediastinal adenopathy measuring up to 2.1 cm. Differential diagnosis includes pneumonia or underlying lung neoplasm. Close followup imaging recommended after treatment for pneumonia, to assess for underlying mass. Cristofer De Santiago MD Objective Remarks GENERAL: 56-year-old male, critically ill currently on PRVC via tracheostomy SKIN: Warm and dry. Positive intertrigo HEAD: Atraumatic. Normocephalic. EYES: Pupils equal and round about 3 mm bilaterally and reactive. No scleral icterus. No injection or drainage. ENT: No nasal bleeding or discharge. NECK: Trachea midline. No JVD. Tracheostomy site is clean dry and intact CARDIOVASCULAR: Tachycardia, IR. S1, S2 no S4. Diminished heart sounds. Without murmur, clicks, or rubs RESPIRATORY: Bilateral mild expiratory wheezes and coarse bilateral anterior rhonchi appreciated. GASTROINTESTINAL: Abdomen soft, obese. MUSCULOSKELETAL: Extremities with trace lower extremity bilateral edema. No obvious deformities. NEUROLOGICAL: Eyes are open. Positive gag. Weakly moves fingers and toes. Able to shrug shoulders Date of Insertion: Nov 16, 2016 Line: PICC Side: Left Location: Antecubital A/P Assessment and Plan Neuro/Psych: Functional quadriparesis CIM/SHEFALI s/p Neuromuscular paralysis for Prone therapy Agitated Delirium, Metabolic Encephalopathy Syncope Depression MRI C-spine showing increased signals C3-C5 region. Dr Riggins reviewed MRI spine- not sure about increased signal in cord, but could be cervical hyperextension injury, from intubation according to Dr. Riggins. Unable to do flexion-extension films of the C-spine (trached patient). 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 ) Off all continuos sedation off 12/03/16. On Fentanyl patch 50 g per hour Continue liquid oxycodone 5 mg every 6 per tube. prn hydromorphone, fentanyl for breakthrough. Haloperidol 5mg iv q4h prn for agitation. Lexapro 10 mg qhs from 12/07/16. Titrate dose up in one week as tolerated MRI brain 11/26: Small focal signal abnormality in the superior medial left frontal lobe. Could be sequela from prior insult such as a contusion or small infarct. No acute infarct MRI brain 12/[address] on admission revealed no acute intracranial findings, CT brain 11/05- no acute findings. opacification of sinuses. EEG 11/20: No seizure activity. EEG 11/09: severe encephalopathy PT/OT for range of motion, up to stretcher chair as tolerated CV: Atrial fib/ flutter with RVR Hypertension, now intermittently hypotensive On Amiodarone 200mg Q12, Digoxin 0.125 mg daily(Dig. level 0.5 on 12/01). On PO diltiazem 90 mg PO q6hr, metoprolol 50mg Q6 DCd CLONIDINE 12/06/16 DUE TO INTERMITTENT HYPOTENSION IV heparin for anticoagulation. Started Coumadin 12/04/16 and pharmacy dosing Echo 10/25 EF 60-65%. Repeat echo with bubble study: 11/22: No shunt seen Bumex 1 mg IV x1 12/07 Resp: Acute, now chronic hypoxemic Respiratory failure s/p trach 11/27 Spontaneous Right sided PTX 2nd barotrauma COPD exacerbation Pneumonia most likely community-acquired Obesity hypoventilation syndrome Tobacco use disorder On PRVC FIO2 50%. SBT and TP as tolerated. TP for 2 hours 12/08/16 Albuterol/ipratropium aerosols every 4 hours of albuterol aerosols every 2 hours PRN. Ventilator bundle s/p trach 11/[address] Martin #[address] [place]. s/p 20Fr CT placed for right PTX 11/23, monitor CT drainage. Leave CT in place until vent settings, hypoxia improved CT pulmonary angio revealed no pulmonary embolus. Masslike consolidation in the posterior right upper lobe and medial right lower lobe. Lymphadenopathy to 1 cm right hilum and subcarinal. Atelectasis left lower lobe. Discontinued Prone therapy 11/02/16. Budesonide 0.5 mg/2 mL aerosols twice a day. Prednisone 20 mg daily Pulmonary/Dr. Wynne has followed GI: Morbid Obesity Elevated LFT's- now within normal. PEG tube placement 11/30 liver: No ductal dilatation Tube feeds resumed Vital high protein 1.5 at 40ml/hr Famotidine 20 milligrams mg twice a day for GI prophylaxis /renal: Hyponatremia Monitor renal function, I/O's, electrolytes replacement per protocol. Endo: Hyperglycemia- SSI Q6h with Regular Insulin mild protocol for glycemic control. Previously insulin detemir 62 units twice a day. Restarted 15 units twice a day 12/01. Adequate blood sugar control . Heme: Normocytic anemia Leukocytosis Monitor CBC, coags- patient is on heparin drip, Coumadin pharmacy dosing ID: Severe sepsis HAP Continue abx(piperacillin/tazobactam and sulfamethoxazole/trimethoprim 800/160 2 tablets 3 times a day) Sputum: Klebsiella, Stenotrophomonas and Pseudomonas 11/27 Sputum cx 11/23: Kleb, Pseudomonas, s/p (ceftriaxone and fluconazole course). ID is following-Dr. Patel s/p ceftriaxone 11/02-11/09 for Enterobacter pneumonia. Repeat sputum Klebsiella sensitive to Rocephin 10/29/16-Enterobacter in sputum, 11/06/16, 11/10 sputum- Klebsiella Urine Legionella and pneumococcal antigens negative and influenza negative C-diff PCR is negative Access RUE PICC placed 11/05 through 11/15 replaced 11/16 with left upper extremity PICC Prophylaxis GI, famotidine. DVT - IV heparin gtt, Coumadin started 12/04/16. INR remains subtherapeutic, pharmacy managing 11/09 Doppler US LE negative for DVT Palliative care is following Critical Care: Level 2 Roro Tyler MD Dec 09, 2016 09:01
[2016-12-09] MEDS: SODIUM CHLORIDE 0.9% FLUSH 10 ML FLUSH IV FLUSH SCH (09:29)
[2016-12-09] MEDS: CHLORHEXIDINE 0.12% (ORAL KIT) 15 ML CUP MT SCH ×2 (09:31→20:00)
--- NOTE | 2016-12-09 13:51 | HHI.IDPN ---
Subjective Subjective Remarks no fever tolerating CPAP, but not Tpiece Antibiotics zosyn bactrim Allergies: Coded Allergies: No Known Allergies (Unverified , 10/25/16) Objective . Vital Signs Date Time Temp Pulse Resp B/P (MAP) Pulse Ox O2 Delivery O2 Flow Rate FiO2 12/09/16 11:13 99 50 12/09/16 11:13 50 12/09/16 11:00 16 12/09/16 10:00 99 12/09/16 08:00 50 12/09/16 08:00 98.9 137 19 129/71 (90) 93 12/09/16 08:00 137 12/09/16 07:43 95 55 12/09/16 06:00 92 12/09/16 04:00 50 12/09/16 04:00 98.8 90 17 109/58 (75) 96 12/09/16 04:00 90 12/09/16 03:55 98 50 12/09/16 02:00 99 12/09/16 00:00 91 12/09/16 00:00 99.0 91 15 94 12/09/16 00:00 99.0 91 15 102/56 (71) 94 12/09/16 00:00 50 12/08/16 23:59 95 50 12/08/16 22:00 73 12/08/16 20:00 99.0 66 15 107/59 (75) 97 12/08/16 20:00 66 12/08/16 20:00 50 12/08/16 19:39 98 50 12/08/16 18:00 88 12/08/16 16:00 50 12/08/16 16:00 98.2 114 17 118/67 (84) 95 12/08/16 16:00 114 12/08/16 15:24 93 50 12/08/16 14:16 96 T-piece 50 12/08/16 14:16 50 12/08/16 14:00 78 . Laboratory Tests Test 12/08/16 06:30 White Blood Count 14.1 TH/MM3 Red Blood Count 3.17 MIL/MM3 Hemoglobin 9.8 GM/DL Hematocrit 29.2 % Mean Corpuscular Volume 92.3 FL Mean Corpuscular Hemoglobin 30.8 PG Mean Corpuscular Hemoglobin Concent 33.4 % Red Cell Distribution Width 15.1 % Platelet Count 304 TH/MM3 Mean Platelet Volume 6.5 FL Laboratory Tests Test 12/08/16 06:30 12/09/16 05:25 Creatinine LESS THAN 0.15 MG/DL LESS THAN 0.15 MG/DL Estimat Glomerular Filtration Rate 690 ML/MIN 690 ML/MIN Blood Urea Nitrogen 15 MG/DL Random Glucose 151 MG/DL Total Protein 5.4 GM/DL Albumin 2.2 GM/DL Calcium Level 8.1 MG/DL Alkaline Phosphatase 91 U/L Aspartate Amino Transf (AST/SGOT) 28 U/L Alanine Aminotransferase (ALT/SGPT) 67 U/L Total Bilirubin 0.3 MG/DL Sodium Level 127 MEQ/L Potassium Level 3.9 MEQ/L Chloride Level 92 MEQ/L Carbon Dioxide Level 28.3 MEQ/L Anion Gap 7 MEQ/L Microbiology Date/Time Source Procedure Growth Status 12/07/16 18:52 Blood Peripheral Aerobic Blood Culture - Preliminary NO GROWTH IN 2 DAYS Resulted 12/07/16 18:52 Blood Peripheral Anaerobic Blood Culture - Final QNS - SEE AEROBE REPORT Resulted 12/07/16 15:25 Blood Line Aerobic Blood Culture - Preliminary NO GROWTH IN 2 DAYS Resulted 12/07/16 15:25 Blood Line Anaerobic Blood Culture - Preliminary NO GROWTH IN 2 DAYS Resulted Imaging Last Impressions Chest X-Ray 12/07/16 0600 Signed Impressions: Service Date/Time: Wednesday, December 07, 2016 03:53 - CONCLUSION: 1. Basilar airspace disease and small effusions similar to December 03. Right chest tube without pneumothorax. Cristofer De Santiago MD Cervical Spine MRI 12/03/16 0000 Signed Impressions: Service Date/Time: Saturday, December 03, 2016 13:13 - CONCLUSION: Severely limited exam. I believe there is increased signal in the cervical cord mid C3 to mid C5. Ward Kim MD FACR Brain MRI 12/03/16 0000 Signed Impressions: Service Date/Time: Saturday, December 03, 2016 13:13 - CONCLUSION: 1. There is a small area of abnormal T2 signal in the left frontal cortex this is unchanged from the previous examination dated 11/26/16. This is nonspecific in appearance on the MRI. Differential considerations would be a small area of gliosis versus an old area of contusion. Follow up examination in 6 months to document stability would be warranted. 2. No findings to indicate acute cortical infarction are identified. Román Kim MD Gastrostomy Tube Placement 11/30/16 Signed Impressions: Service Date/Time: Wednesday, November 30, 2016 12:22 - CONCLUSION: Uncomplicated gastrostomy tube placement as above. Jorge Jolly MD Abdomen X-Ray 11/30/16 Signed Impressions: Service Date/Time: Wednesday, November 30, 2016 09:43 - CONCLUSION: 1. No definite nasogastric catheter is identified. Repeat examination centered higher in the thorax may be performed for more definitive evaluation. Consider repositioning the nasogastric catheter prior to repeat imaging. Nico Vaughan MD Lower Extremity Ultrasound 11/09/16 Signed Impressions: Service Date/Time: Wednesday, November 09, 2016 14:13 - CONCLUSION: Normal examination. Jayson Manning MD Liver Ultrasound 11/09/16 Signed Impressions: Service Date/Time: Wednesday, November 09, 2016 13:58 - CONCLUSION: Sono dense liver without duct dilatation. 4 mm common duct. Ward Kim MD FACR Chest CT 11/06/16 Signed Impressions: Service Date/Time: Sunday, November 06, 2016 11:24 - CONCLUSION: 1. Dense bilateral posterior lower lobe airspace consolidation consistent with aspiration versus less likely pneumonia. 2. Linear consolidation in the right middle lobe consistent with atelectasis versus aspiration. 3. Trace left and small right pleural effusions. 4. Support lines and tubes in good position. 5. Prominent coronary artery calcifications. Nico Vaughan MD Head CT 11/05/16 Signed Impressions: Service Date/Time: Saturday, November 05, 2016 21:43 - CONCLUSION: 1. No acute intracranial abnormalities. Pansinus fluid opacification. Cristofer De Santiago MD Carotid Artery Ultrasound 10/25/16 Signed Impressions: Service Date/Time: September 08:27 - CONCLUSION: Mild to moderate plaque in both carotid systems with less than 40%% diameter stenosis by velocity criteria. Jhonathan Dietz MD CT Angiography 10/25/16 Signed Impressions: Service Date/Time: September 06:12 - CONCLUSION: 1. Negative for pulmonary embolism. 2. There is a fairly large area of masslike consolidation in the medial right lung involving posterior segment right upper lobe and medial aspect of right lower lobe. There is associated right hilar and mediastinal adenopathy measuring up to 2.1 cm. Differential diagnosis includes pneumonia or underlying lung neoplasm. Close followup imaging recommended after treatment for pneumonia, to assess for underlying mass. Cristofer De Santiago MD Physical Exam CONSTITUTIONAL/GENERAL: This is a morbidly obese patient, TUBES/LINES/DRAINS: SKIN: No jaundice, rashes, or lesions. Skin temperature appropriate. Not diaphoretic. NECK: trach in place CARDIOVASCULAR: Afib on the monitor tachycardia without murmurs, gallops, or rubs. No JVD. Peripheral pulses symmetric. RESPIRATORY/CHEST: Symmetric, unlabored respirations. coarse BS CT R with serous drainage up to 80 cc/d GASTROINTESTINAL: Abdomen soft, not tender moderately distended. No hepato- splenomegaly, or palpable masses. No guarding. Bowel sounds present. Dign[place]ld in [address],[place] with liquid brown stool GENITOURINARY: Without palpable bladder distension. Santiago catheter in place with clear yellow urine MUSCULOSKELETAL: Extremities without clubbing, cyanosis, Tight prominent edema with indurated areas on L calf, it is tender to palpation NEUROLOGICAL: awakens , follows commands PSYCHIATRIC: calm Assessment & Plan Remarks PNA, Kleb pneumo - failrly sensitive - PSAE , Stenotrophomonas and Kleb in the sputum ? unclear is Steno malt is a coloniser vs a true pathogen, but improved after Bactrim was introdused ARDS Acute VDRF, tolerating weaning - sp trach R sided PTX sp CT Abx associated diarrhea, C.diff negative Abnormal UA, CANDIDURIA Persiastent leukocytosis and bandemia - stable to slowly improving Persistent fever, afebrile Abx associated diarrhea, C.diff negative REC's: complte zosyn, thru 12/11 complete Bactrim, thru 12/11 US L Mariana Stevens RN, MD Dec 09, 2016 13:51
[2016-12-09 14:13] LABS: APTT (PATIENT) 44.1 SEC (24.3-30.1)
[2016-12-09 14:39] LABS: POTASSIUM 4.2 MEQ/L (3.5-5.1)
[2016-12-09] MEDS ORDERED: WARFARIN SOD 5 MG TAB PO ONE (16:00)
[2016-12-09] MEDS: WARFARIN SOD 5 MG TAB PO SCH (16:02)
--- NOTE | 2016-12-09 18:16 | RADRPT ---
EXAM DATE/TIME: 12/09/2016 17:13 [facility] COMPARISON: No previous studies available for comparison. INDICATIONS : Left leg swelling. MEDICAL HISTORY : Hypercholesterolemia. Hypertension. Chronic obstructive pulmonary disease. SURGICAL HISTORY : None. ENCOUNTER: Initial ACUITY: 1 day PAIN SCORE: Non-responsive LOCATION: Left leg. TECHNIQUE: Venous ultrasound of the leg was performed from the inguinal ligament to the proximal calf. Real-madeline e, color Doppler and spectral tracing, compression and augmentation techniques were used. FINDINGS: There is normal compressibility of the deep venous system from the inguinal region to the proximal ca lf. No echogenic clot is seen in the lumen of the common femoral, femoral, popliteal, and posterior tibial veins. There is a normal response of the venous system to proximal and distal augmentation an d respiration. Large heterogeneous complex mass is identified in the popliteal fossa measuring 14.5 x 6.9 x 4.9 cm i n size. This report was called to patient's nurse at [id number]. CONCLUSION: 1. No evidence of DVT 2. Large complex mass in the pump to fossa characteristic of a hematoma. Joni Barfield MD on December 09, 2016 at 18:08 Board Certified Radiologist. This report was verified electronically.
[2016-12-10] VITALS (26 sets, daily range): BP systolic 108–132; BP diastolic 56–75; PULSE 64–129; RESP 15–32; TEMP 97.9–98.8; O2SAT 93–100
[2016-12-10] MEDS: SODIUM CHLORIDE 0.9% FLUSH 10 ML FLUSH SCH ×3 (00:14→20:52)
[2016-12-10] MEDS: AMIODARONE 200 MG TAB OG-TUBE SCH ×3 (00:14→20:53)
[2016-12-10] MEDS: ESCITALOPRAM OXALATE 10 MG TAB PO SCH ×2 (00:14→20:53)
[2016-12-10] MEDS: ARTIFICIAL TEARS OPTH OINT 3.5 APPLIC/3.5 GM TUBO EACH EYE SCH ×2 (00:14→08:24)
[2016-12-10] MEDS: FAMOTIDINE 20 MG TAB NG SCH ×3 (00:14→20:52)
[2016-12-10] MEDS: SODIUM CHLORIDE 1 GRAM TAB PO SCH ×3 (00:15→23:46)
[2016-12-10] MEDS: SULFAMETHOXAZOLE-TRIMETHOPRIM DS 800-160 MG TAB PO SCH ×4 (00:15→20:54)
[2016-12-10] MEDS: oxyCODONE HCL ORAL CONC 5 MG/0.25 ML SYRINGE PEG SCH ×5 (00:15→20:54)
[2016-12-10] MEDS: PIPERACIL-TAZO 4.5 GM PREMIX 100 ML IV SCH ×5 (00:16→23:41)
[2016-12-10] MEDS: INSULIN NovoLIN REGULAR SUPPLEMENTAL SCALE SQ SCH ×4 (02:00→20:00)
[2016-12-10] MEDS: METOPROLOL TARTRATE 50 MG TAB PO SCH ×5 (02:52→23:40)
[2016-12-10] MEDS: DILTIAZEM HCL 90 MG TAB PO SCH ×5 (02:52→23:41)
[2016-12-10] MEDS: CHLORHEXIDINE GLUCONATE 2 % 1 PACK (2 CLOTHS) TOP SCH (02:53)
[2016-12-10 08:02] LABS: AUTOMATED NEUTROPHIL # 11.6 TH/MM3 (1.8-7.7); BASOPHIL # 0.2 TH/MM3 (0-0.2); BASOPHIL % 1.4 % (0.0-2.0); EOSINOPHIL # 0.1 TH/MM3 (0-0.4); EOSINOPHIL % 0.4 % (0.0-4.0); HEMATOCRIT 30.3 % (39.0-51.0); LYMPH % 11.9 % (9.0-44.0); LYMPHOCYTE # 1.7 TH/MM3 (1.0-4.8); MEAN CELL VOLUME 92.5 FL (80.0-100.0); MEAN CORPUSCULAR HEMOGLOBIN 30.5 PG (27.0-34.0); MONO % 5.4 % (0.0-8.0); NEUT % 80.9 % (16.0-70.0); PLATELET COUNT 328 TH/MM3 (150-450); RED BLOOD COUNT 3.27 MIL/MM3 (4.50-5.90); RED CELL DISTRIBUTION WIDTH 15.4 % (11.6-17.2); WHITE BLOOD COUNT 14.4 TH/MM3 (4.0-11.0)
[2016-12-10 08:07] LABS: HEMO FLAGS AUTO DIFF
[2016-12-10 08:10] LABS: APTT (PATIENT) 29.4 SEC (24.3-30.1)
[2016-12-10 08:11] LABS: INTERNATIONAL NORMALIZED RATIO 1.2 RATIO; PROTHROMBIN TIME - PATIENT 13.3 SEC (9.8-11.6)
[2016-12-10] MEDS: DIGOXIN 0.125 MG TAB PO SCH (08:22)
[2016-12-10] MEDS: predniSONE 20 MG TAB PO SCH (08:22)
[2016-12-10] MEDS: SODIUM CHLORIDE 0.9% FLUSH 10 ML FLUSH IVF SCH ×2 (08:23→08:56)
[2016-12-10] MEDS: CHLORHEXIDINE 0.12% (ORAL KIT) 15 ML CUP MT SCH ×2 (08:24→20:00)
[2016-12-10] MEDS: INSULIN DETEMIR 100 UNITS/ML VIAL SQ SCH ×2 (08:25→20:55)
[2016-12-10] MEDS: SODIUM CHLORIDE 0.9% FLUSH 10 ML FLUSH IV FLUSH SCH (08:25)
[2016-12-10 08:31] LABS: ANION GAP 9 MEQ/L (5-15); AST (GOT) 22 U/L (15-37); BICARBONATE 27.4 MEQ/L (21.0-32.0); BLOOD UREA NITROGEN 15 MG/DL (7-18); CHLORIDE 93 MEQ/L (98-107); GLOMERULAR FILTRATION RATE 690 ML/MIN (>89); MAGNESIUM 1.9 MG/DL (1.5-2.5); POTASSIUM 3.9 MEQ/L (3.5-5.1); SODIUM (NA) 129 MEQ/L (136-145)
[2016-12-10 08:32] LABS: ALT (GPT) 60 U/L (12-78)
[2016-12-10 08:35] LABS: ALKALINE PHOSPHATASE 87 U/L (45-117); TOTAL BILIRUBIN ADULT 0.4 MG/DL (0.2-1.0)
[2016-12-10 08:43] LABS: BANDS 19 % (0-6); BASOPHILS 1 % (0-2); MYELOCYTES 4 % (0-0); NEUTROPHIL # MANUAL DIFF 10.7 TH/MM3 (1.8-7.7); POLYS (SEG NEUTROPHILS) 51 % (16-70); WBC DIFF SAMPLE 100
[2016-12-10] MEDS: RESP: BUDESONIDE 0.5 MG/2 ML NEB NEB SCH ×2 (08:43→19:29)
[2016-12-10 08:44] LABS: PLATELET ESTIMATE SMEAR NORMAL (NORMAL); PLATELET MORPHOLOGY NORMAL (NORMAL); SCAN/DIFF FINAL DIFF MANUAL
[2016-12-10] MEDS: LISINOPRIL 10 MG TAB PO SCH (08:56)
--- NOTE | 2016-12-10 11:36 | HHI.CCPN ---
Subjective Remarks/Hospital Course 56-year-old very pleasant gentleman with past medical history of COPD, and hypertension presents complaining of shortness of breath and nausea, generalized fatigue and chills for 2 days. He thinks it has been from being out in the heat. Denies any fever, chest pain, vomiting, abdominal pain, focal weakness or numbness. In the emergency department his saturation was in mid 80s on arrival with auditory wheezing and tachypnea. He was placed on 4 liters of NC and saturating in the low 90. He does not use oxygen at home. He also mentioned 2 days ago, he came home and was sitting in a chair and was taking his shoes off when he passed out. States he woke up and was still on the chair. This has never happen before. 10/25: Patient intubated secondary to increasing oxygen requirements, altered mental status. Discussed with son. Somewhat hypertensive post intubation. 10/26: Placed on rotaprone bed last evening. Flolan initiated. Saturations improved. Afebrile. Remains on Nimbex drip. 10/27: T max 99.7. Tolerated on not prone position 2 hours yesterday. Tolerating trickle feeds. FiO2 down to 55% 10/28: Tmax 99.9. When unprone for chest x-ray this a.m. desaturated. Currently on 90% FiO2. Actually hypertensive. No bowel movements. Remains paralyzed 10/29: Remains intubated sedated on continuous Prone therapy Except for chest x- ray. Fever 100.8. Panculture requested. Zyvox added. Continue IV sedation with propofol and fentanyl and Versed, neuromuscular paralysis with Nimbex 10/30: Prone cycle changed to 8 hr prone, 1 hr supine from 10/29. Due to hypoxia will continue with same cycle today. Chest x-ray remains unchanged. Patient remains severely hypoxemic FiO2 at 75% PEEP at 16. WBC count worsened to 18. Remains neuromuscularly paralyzed. 10/31: Patient remains critically ill but stable. Oxygen saturation 95% on 55 of FiO2 and PEEP of 16. Reduce PEEP to 14, FiO2 to 50% and start weaning Flolan. Increase supine time to 4 hours, reduce Prone time to 6 hours 11/01: Patient remains intubated sedated critically ill on neuromuscular paralysis. FiO2 reduced to 50, I will attempt PEEP wean gradually to 12 today. Prone/supine cycles will be changed to 6 hours each 11/02: FiO2 remains at 50%, PEEP reduced from 14 to 12 today, TV increased to 600 and RR to 20, in anticipation of discontinuing prone therapy, which will be DCd today. Off Flolan for 2 days 11/03: off pronation. fio2 up to 65% , peep 12. agitation causing desaturation. minimal improvements. 11/04: good diuresis yesterday, but despite that, fio2 persists at 65% and spo2 decreasing to 91% today. no real improvements and some worsening of pulmonary function despite ongoing aggressive therapies. still not safe for SBT given hypoxia. also severely hypertensive this morning. 11/05: continues to diurese well and Cr still at baseline. fio2 at 90% however, and no clinical improvements in mental status or hypoxia. still unsafe for SBT given hypoxemia. off pathway. hypertension under much better control. poor neuro status is concerning. 11/06: Remains severely hypoxemic. FiO2 was 100% PEEP 14. I reduce FiO2 to 90% after increasing PEEP to 16. Developed a flutter with RVR overnight, currently on Cardizem drip. Unable to do SBT due to very high settings 11/07: Remains hypoxemic and but able to wean FiO2 down to 80% with PEEP of 16. Remains unresponsive on sedation. Unable to trach due to his high vent settings and high FiO2. Remains on Cardizem and 15 mg per hour, with rate controlled a flutter. We'll start by mouth Cardizem in an attempt to wean IV Cardizem 11/08: Remains critically ill hypoxic but FiO2 now weaned to 60%, PEEP remains at 16. Very heavily sedated no withdrawal to pain. Will hold all continuos sedation. Sputum culture with Klebsiella sensitive to Rocephin. A flutter persistent, will start IV heparin 11/09 Patient is sedated with Diprivan and intubated, On Cardizem drip 15mg/hr for Aflutter. Heparin drip stated yesterday. 11/10 Patient remains sedated and intubated. On Heparin drip. Persistent fever with Tmax 102.5. ETT was replaced yesterday. 11/11 Patient was placed on Cardizem and amio drips overnight for Afib with RVR. Sedated with Diprivan and intubated. On Heparin drip. T;99.3 this morning. 11/12 Patient remains intubated and sedated with Diprivan. On Cardizem drip 15mg/ hr. Afebrile, Tmax 100.6 11/13 Patient is sedate with Diprivan and intubated. In Afib with RVR now on Amio drip. Tmax 100,4 11/14 Remains intubated sedated with propofol and fentanyl. Afib rate controlled , remains on amiodarone and Cardizem gtt. Fio2 remains high at 70%, PEEP 12. CXR persistent bibasilar infiltrates/effusion 11/15: Currently sedated with propofol and fentanyl drips. Currently in A. fib/ flutter on amiodarone drip and Cardizem drip. PEEP increased to 14. FiO2 65. 11/16: Tmax 100.1. Patient more alert and tachycardic this AM. Adding midazolam gtt for sedation and currently tolerating tube feeding. Positive BM. PEEP to 12. FiO2 75% 11/17: Afebrile. FiO2 down to 60%. PEEP set 12. Multiple tracheostomy hopefully on Saturday. Heart rate better control. 11/18: Afebrile. Discontinuing amiodarone drip today and switching to oral. FiO2 between 60 and 70%. Restarting epoprostenol in attempt to get FiO2 down to 50% for tracheostomy tomorrow 11/19 No events overnight. Sedated with Diprivan, Fentanyl and versed. Still requiring high O2 - on PRVC with PEEP;12 and FIO2 70%. Afebrile. 11/20 Patient remains sedated with Diprivan, versed, Fentanyl and intubated. On PRVC with PEEP: 12, FIO2 50% , sats 88-90%. On Heparin drip. 11/21: Tmax 99.4. Tolerating tube feeds. Remains on heparin drip. FiO2 down to 55%. PEEP of 10. Eyes open blinks spontaneously. Does squeeze and weakly on left side with encouragement 11/22: Intubated heavily sedated. FiO2 50%, remains on Flolan. PEEP 10. Bumex 1 mg 1 and Diamox 500 mg 1 IV. She will negative balance. Heparinized tube feeds on hold for tracheostomy today at 12. Remains in atrial flutter 11/23 Patient remains sedated with Diprivan, Fentanyl, Versed and intubated. On Heparin drip. For CT guided thoracentesis today. On APRV 11/24 Patient remains sedated and intubated. 20Fr CT placed yesterday for right sided PTX. Spiked fever with T 101.6. Remains on Heparin drip. 11/25 Patient remains intubated with Diprivan, fentanyl and intubated. On PRVC with PEEP: 10, FIO2 50%. Afebrile. 11/26 Patient is sedated with Diprivan, Fentanyl and intubated. Afebrile. On Heparin drip. On PRVC with PEEP: 10, FIO2 60% 11/27 Patient is scheduled for trach in OR today. Sedated and intubated. Heparin drip is off for trach. 11/28 Patient s/p trach yesterday. Sedated with Diprivan and Fentanyl. Afebrile. On PRVC with PEEP; 10 and FIO2 50% 11/29 No events overnight. Sedated and on ventilator via trach. For PEG tube placement today. Heparin drip on hold. 11/30: Currently afebrile. MAXIMUM TEMPERATURE 100. Positive BM via fecal containing device. Tube feeds on hold secondary to plan PEG tube placement today. Heparin drip on hold as well. 12/01: Status post PEG tube placement yesterday per IR. Heparin drip and tube feeds restarted today. Restarting insulin detemir. Awake and alert and weakly follows commands on sedation 12/02: Tmax 99.3. Tube feeds restarted and tolerating. Awake and alert and weakly follows commands. Plan for MRI brain/C-spine a.m. 12/03. 12/03: Patient is awake. Tolerating PRVC, very weakly wiggling cedric toes. MRI today 12/04/16: Tolerated CPAP with high settings yesterday for several hours 15 over 5. Becomes tachypneic and pressure support wean. MRI of the C-spine shows increased signal, no cord compression. Discussed with Dr. Riggins. He is requesting flexion extension films of C spine. 12/05/16: Desaturated on CPAP today. Now on full vent support with 50% FiO2. Continues to have functional quadriparesis. Dr Riggins reviewed MRI spine- he is not sure about increased signal in cord, but there could be cervical hyperextension injury, from intubation. 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 Cannot do cspine extension/flexion films. Repeat MRI c- spine in a few weeks 12/06/16: Patient remains on vent, placed on CPAP 11/29 now, on 50% FiO2. No improvement in neuro exam patient is awake. Able to minimally shrug shoulders. Continues to behave like functional quadriplegia 12/07/16: Tolerated CPAP approximately 6 hours yesterday but did not tolerate TPs. Having anxiety and some frustration due to neuromuscular weakness. I will add Lexapro. Give Bumex 1 mg x1, CXR shows pleural effusions. 12/08: On 11/29 PS since AM. CBC chest x-ray stable. Lexapro added yesterday for depression. Urine output 3.5 L in 24 hours 12/09: Tolerated CPAP well yesterday tolerated TPs for 2 hours but failed to CPAP today due to hypoxia and tachycardia. Currently on PRVC received metoprolol and fentanyl push with improved heart rate 12/10: Patient is tolerating CPAP today. Left popliteal fossa hematoma, large on left lower extremity ultrasound. Heparin and Coumadin placed on hold will get orthopedic consult Objective Vital Signs Date Time Temp Pulse Resp B/P (MAP) Pulse Ox O2 Delivery O2 Flow Rate FiO2 12/10/16 11:26 18 12/10/16 08:45 45 12/10/16 08:43 98 12/10/16 04:00 98.5 66 112/60 (77) 12/08/16 14:16 T-piece 12/06/16 14:34 6.00 Intake and Output 12/10/16 12/10/16 12/11/16 08:00 16:00 00:00 Intake Total 1133 ml Output Total 1020 ml Balance 113 ml Result Diagram: 12/10/16 0640 12/10/16 0640 Imaging Last Impressions Gastrostomy Tube Placement 11/30/16 0000 Signed Impressions: Service Date/Time: Wednesday, November 30, 2016 12:22 - CONCLUSION: Uncomplicated gastrostomy tube placement as above. Jorge Jolly MD Chest X-Ray 11/30/16 0000 Signed Impressions: Service Date/Time: Wednesday, November 30, 2016 03:55 - CONCLUSION: Progression in the bilateral pleural effusions and bibasilar pulmonary infiltrates. Fito Mar Jr., MD Abdomen X-Ray 11/30/16 0000 Signed Impressions: Service Date/Time: Wednesday, November 30, 2016 09:43 - CONCLUSION: 1. No definite nasogastric catheter is identified. Repeat examination centered higher in the thorax may be performed for more definitive evaluation. Consider repositioning the nasogastric catheter prior to repeat imaging. Nico Vaughan MD Brain MRI 11/26/16 0000 Signed Impressions: Service Date/Time: Saturday, November 26, 2016 19:52 - CONCLUSION: 1. Small focal signal abnormality in the superior medial left frontal lobe. This is nonspecific. This could be the sequela from prior insult such as a contusion or small infarct. An acute infarct is not seen. A small underlying lesion could have a similar appearance. One could perform a contrast-enhanced study to determine if there is any enhancement associated with this region. 2. There are a few scattered minimal punctate areas of demyelination seen not expected for the patient's age. 3. Sinus disease. Jayson Soto MD Lower Extremity Ultrasound 11/09/16 0000 Signed Impressions: Service Date/Time: Wednesday, November 09, 2016 14:13 - CONCLUSION: Normal examination. Jayson Manning MD Liver Ultrasound 11/09/16 0000 Signed Impressions: Service Date/Time: Wednesday, November 09, 2016 13:58 - CONCLUSION: Sono dense liver without duct dilatation. 4 mm common duct. Ward Kim MD FACR Chest CT 11/06/16 0000 Signed Impressions: Service Date/Time: Sunday, November 06, 2016 11:24 - CONCLUSION: 1. Dense bilateral posterior lower lobe airspace consolidation consistent with aspiration versus less likely pneumonia. 2. Linear consolidation in the right middle lobe consistent with atelectasis versus aspiration. 3. Trace left and small right pleural effusions. 4. Support lines and tubes in good position. 5. Prominent coronary artery calcifications. Nico Vaughan MD Head CT 11/05/16 0000 Signed Impressions: Service Date/Time: Saturday, November 05, 2016 21:43 - CONCLUSION: 1. No acute intracranial abnormalities. Pansinus fluid opacification. Cristofer De Santiago MD Carotid Artery Ultrasound 10/25/16 0000 Signed Impressions: Service Date/Time: September 08:27 - CONCLUSION: Mild to moderate plaque in both carotid systems with less than 40%% diameter stenosis by velocity criteria. Jhonathan Dietz MD CT Angiography 10/25/16 0000 Signed Impressions: Service Date/Time: September 06:12 - CONCLUSION: 1. Negative for pulmonary embolism. 2. There is a fairly large area of masslike consolidation in the medial right lung involving posterior segment right upper lobe and medial aspect of right lower lobe. There is associated right hilar and mediastinal adenopathy measuring up to 2.1 cm. Differential diagnosis includes pneumonia or underlying lung neoplasm. Close followup imaging recommended after treatment for pneumonia, to assess for underlying mass. Cristofer De Santiago MD Objective Remarks GENERAL: 56-year-old male, critically ill currently on CPAP via tracheostomy SKIN: Warm and dry. Positive intertrigo HEAD: Atraumatic. Normocephalic. EYES: Pupils equal and round about 3 mm bilaterally and reactive. No scleral icterus. No injection or drainage. ENT: No nasal bleeding or discharge. NECK: Trachea midline. No JVD. Tracheostomy site is clean dry and intact CARDIOVASCULAR: Tachycardia, IR. S1, S2 no S4. Diminished heart sounds. Without murmur, clicks, or rubs RESPIRATORY: Bilateral mild expiratory wheezes and coarse bilateral anterior rhonchi appreciated. GASTROINTESTINAL: Abdomen soft, obese. MUSCULOSKELETAL: Extremities with trace lower extremity bilateral edema. No obvious deformities. NEUROLOGICAL: Eyes are open. Positive gag. Weakly moves fingers and toes. Able to shrug shoulders Date of Insertion: Nov 16, 2016 Line: PICC Side: Left Location: Antecubital A/P Assessment and Plan Neuro/Psych: Functional quadriparesis CIM/SHEFALI s/p Neuromuscular paralysis for Prone therapy Agitated Delirium, Metabolic Encephalopathy Syncope Depression MRI C-spine showing increased signals C3-C5 region. Dr Riggins reviewed MRI spine- not sure about increased signal in cord, but could be cervical hyperextension injury, from intubation according to Dr. Riggins. Unable to do flexion-extension films of the C-spine (trached patient). 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 ) Off all continuos sedation off 12/03/16. On Fentanyl patch 50 g per hour Continue liquid oxycodone 5 mg every 6 per tube. prn hydromorphone, fentanyl for breakthrough. Haloperidol 5mg iv q4h prn for agitation. Lexapro 10 mg qhs from 12/07/16. Titrate dose up in one week as tolerated MRI brain 11/26: Small focal signal abnormality in the superior medial left frontal lobe. Could be sequela from prior insult such as a contusion or small infarct. No acute infarct MRI brain 12/[address] on admission revealed no acute intracranial findings, CT brain 11/05- no acute findings. opacification of sinuses. EEG 11/20: No seizure activity. EEG 11/09: severe encephalopathy PT/OT for range of motion, up to stretcher chair as tolerated CV: Atrial fib/ flutter with RVR Hypertension, now intermittently hypotensive On Amiodarone 200mg Q12, Digoxin 0.125 mg daily(Dig. level 0.5 on 12/01). On PO diltiazem 90 mg PO q6hr, metoprolol 50mg Q6 DCd CLONIDINE 12/06/16 DUE TO INTERMITTENT HYPOTENSION IV heparin for anticoagulation. Started Coumadin 12/04/16 and pharmacy dosing. Coumadin and heparin 12/10 held due to left popliteal fossa hematoma Echo 10/25 EF 60-65%. Repeat echo with bubble study: 11/22: No shunt seen Bumex 1 mg IV x1 12/07 Resp: Acute, now chronic hypoxemic Respiratory failure s/p trach 11/27 Spontaneous Right sided PTX 2nd barotrauma COPD exacerbation Pneumonia most likely community-acquired Obesity hypoventilation syndrome Tobacco use disorder On PRVC FIO2 50%. SBT and TP as tolerated. TP for 2-4 hours Albuterol/ipratropium aerosols every 4 hours of albuterol aerosols every 2 hours PRN. Ventilator bundle s/p trach 11/[address] Martin #[address] [place]. s/p 20Fr CT placed for right PTX 11/23, monitor CT drainage. Leave CT in place until vent settings, hypoxia improved CT pulmonary angio revealed no pulmonary embolus. Masslike consolidation in the posterior right upper lobe and medial right lower lobe. Lymphadenopathy to 1 cm right hilum and subcarinal. Atelectasis left lower lobe. Discontinued Prone therapy 11/02/16. Budesonide 0.5 mg/2 mL aerosols twice a day. Prednisone 20 mg daily Pulmonary/Dr. Wynne has followed GI: Morbid Obesity Elevated LFT's- now within normal. PEG tube placement 11/30 liver: No ductal dilatation Tube feeds resumed Vital high protein 1.5 at 40ml/hr Famotidine 20 milligrams mg twice a day for GI prophylaxis /renal: Hyponatremia Monitor renal function, I/O's, electrolytes replacement per protocol. Endo: Hyperglycemia- SSI Q6h with Regular Insulin mild protocol for glycemic control. Previously insulin detemir 62 units twice a day. Restarted 15 units twice a day 12/01. Adequate blood sugar control . Heme: Normocytic anemia Leukocytosis Monitor CBC, coags- patient is on heparin drip, Coumadin pharmacy dosing ID: Severe sepsis HAP Continue abx(piperacillin/tazobactam and sulfamethoxazole/trimethoprim 800/160 2 tablets 3 times a day) Sputum: Klebsiella, Stenotrophomonas and Pseudomonas 11/27 Sputum cx 11/23: Kleb, Pseudomonas, s/p (ceftriaxone and fluconazole course). ID is following-Dr. Patel s/p ceftriaxone 11/02-11/09 for Enterobacter pneumonia. Repeat sputum Klebsiella sensitive to Rocephin 10/29/16-Enterobacter in sputum, 11/06/16, 11/10 sputum- Klebsiella Urine Legionella and pneumococcal antigens negative and influenza negative C-diff PCR is negative Access RUE PICC placed 11/05 through 11/15 replaced 11/16 with left upper extremity PICC Prophylaxis GI, famotidine. DVT - IV heparin gtt, Coumadin started 12/04/16-held 12/10 left popliteal hematoma, 11/09 Doppler US LE negative for DVT Palliative care is following Critical Care: Level 2 Roro Tyler MD Dec 10, 2016 11:36
[2016-12-10] MEDS: fentaNYL 50 MCG/HR PATCH T-DERMAL SCH (13:45)
[2016-12-10] MEDS: REMOVE OLD FENTANYL PATCH T-DERMAL SCH (13:45)
[2016-12-11] VITALS (39 sets, daily range): BP systolic 87–149; BP diastolic 50–84; PULSE 62–127; RESP 14–40; TEMP 97–98.7; O2SAT 90–99
[2016-12-11] MEDS: INSULIN NovoLIN REGULAR SUPPLEMENTAL SCALE SQ SCH ×4 (02:00→20:00)
[2016-12-11] MEDS: SENNOSIDES 8.6 MG TAB PO PRN (02:44)
[2016-12-11] MEDS: CHLORHEXIDINE GLUCONATE 2 % 1 PACK (2 CLOTHS) TOP SCH (04:00)
[2016-12-11] MEDS: oxyCODONE HCL ORAL CONC 5 MG/0.25 ML SYRINGE PEG SCH ×4 (04:50→20:19)
[2016-12-11] MEDS: DILTIAZEM HCL 90 MG TAB PO SCH ×3 (04:51→17:03)
[2016-12-11] MEDS: SULFAMETHOXAZOLE-TRIMETHOPRIM DS 800-160 MG TAB PO SCH ×3 (04:51→20:19)
[2016-12-11] MEDS: METOPROLOL TARTRATE 50 MG TAB PO SCH ×3 (04:51→17:03)
[2016-12-11] MEDS: PIPERACIL-TAZO 4.5 GM PREMIX 100 ML IV SCH ×3 (04:51→16:55)
[2016-12-11 04:59] LABS: HEMATOCRIT 28.8 % (39.0-51.0); MEAN CELL VOLUME 92.4 FL (80.0-100.0); MEAN CORPUSCULAR HEMOGLOBIN 30.9 PG (27.0-34.0); MEAN CORPUSCULAR HGB CONC 33.5 % (32.0-36.0); PLATELET COUNT 288 TH/MM3 (150-450); RED BLOOD COUNT 3.11 MIL/MM3 (4.50-5.90); RED CELL DISTRIBUTION WIDTH 15.6 % (11.6-17.2); REVIEW FLAG FINAL; WHITE BLOOD COUNT 13.7 TH/MM3 (4.0-11.0)
[2016-12-11 05:07] LABS: APTT (PATIENT) 33.6 SEC (24.3-30.1); INTERNATIONAL NORMALIZED RATIO 1.5 RATIO; PROTHROMBIN TIME - PATIENT 17.2 SEC (9.8-11.6)
[2016-12-11] MEDS: ARTIFICIAL TEARS OPTH OINT 3.5 APPLIC/3.5 GM TUBO EACH EYE SCH ×3 (05:54→20:18)
[2016-12-11] MEDS: RESP: BUDESONIDE 0.5 MG/2 ML NEB NEB SCH ×2 (07:50→19:37)
[2016-12-11] MEDS: RESP: ALBUTEROL 2.5 MG/3 ML NEB (PRN) NEB (07:50)
[2016-12-11] MEDS: CHLORHEXIDINE 0.12% (ORAL KIT) 15 ML CUP MT SCH ×2 (08:18→20:16)
[2016-12-11] MEDS: SODIUM CHLORIDE 0.9% FLUSH 10 ML FLUSH SCH ×2 (08:19→20:17)
[2016-12-11] MEDS: AMIODARONE 200 MG TAB OG-TUBE SCH ×2 (08:20→20:18)
[2016-12-11] MEDS: SODIUM CHLORIDE 0.9% FLUSH 10 ML FLUSH IVF SCH (08:20)
[2016-12-11] MEDS: predniSONE 20 MG TAB PO SCH (08:20)
[2016-12-11] MEDS: FAMOTIDINE 20 MG TAB NG SCH ×2 (08:20→20:18)
[2016-12-11] MEDS: SODIUM CHLORIDE 0.9% FLUSH 10 ML FLUSH IV FLUSH SCH (08:20)
[2016-12-11] MEDS: SODIUM CHLORIDE 1 GRAM TAB PO SCH ×2 (08:21→20:18)
[2016-12-11] MEDS: DIGOXIN 0.125 MG TAB PO SCH (08:21)
[2016-12-11] MEDS: INSULIN DETEMIR 100 UNITS/ML VIAL SQ SCH ×2 (08:21→20:18)
[2016-12-11] MEDS: LISINOPRIL 10 MG TAB PO SCH (09:00)
--- NOTE | 2016-12-11 11:02 | HHI.CCPN ---
Subjective Remarks/Hospital Course 56-year-old very pleasant gentleman with past medical history of COPD, and hypertension presents complaining of shortness of breath and nausea, generalized fatigue and chills for 2 days. He thinks it has been from being out in the heat. Denies any fever, chest pain, vomiting, abdominal pain, focal weakness or numbness. In the emergency department his saturation was in mid 80s on arrival with auditory wheezing and tachypnea. He was placed on 4 liters of NC and saturating in the low 90. He does not use oxygen at home. He also mentioned 2 days ago, he came home and was sitting in a chair and was taking his shoes off when he passed out. States he woke up and was still on the chair. This has never happen before. 10/25: Patient intubated secondary to increasing oxygen requirements, altered mental status. Discussed with son. Somewhat hypertensive post intubation. 10/26: Placed on rotaprone bed last evening. Flolan initiated. Saturations improved. Afebrile. Remains on Nimbex drip. 10/27: T max 99.7. Tolerated on not prone position 2 hours yesterday. Tolerating trickle feeds. FiO2 down to 55% 10/28: Tmax 99.9. When unprone for chest x-ray this a.m. desaturated. Currently on 90% FiO2. Actually hypertensive. No bowel movements. Remains paralyzed 10/29: Remains intubated sedated on continuous Prone therapy Except for chest x- ray. Fever 100.8. Panculture requested. Zyvox added. Continue IV sedation with propofol and fentanyl and Versed, neuromuscular paralysis with Nimbex 10/30: Prone cycle changed to 8 hr prone, 1 hr supine from 10/29. Due to hypoxia will continue with same cycle today. Chest x-ray remains unchanged. Patient remains severely hypoxemic FiO2 at 75% PEEP at 16. WBC count worsened to 18. Remains neuromuscularly paralyzed. 10/31: Patient remains critically ill but stable. Oxygen saturation 95% on 55 of FiO2 and PEEP of 16. Reduce PEEP to 14, FiO2 to 50% and start weaning Flolan. Increase supine time to 4 hours, reduce Prone time to 6 hours 11/01: Patient remains intubated sedated critically ill on neuromuscular paralysis. FiO2 reduced to 50, I will attempt PEEP wean gradually to 12 today. Prone/supine cycles will be changed to 6 hours each 11/02: FiO2 remains at 50%, PEEP reduced from 14 to 12 today, TV increased to 600 and RR to 20, in anticipation of discontinuing prone therapy, which will be DCd today. Off Flolan for 2 days 11/03: off pronation. fio2 up to 65% , peep 12. agitation causing desaturation. minimal improvements. 11/04: good diuresis yesterday, but despite that, fio2 persists at 65% and spo2 decreasing to 91% today. no real improvements and some worsening of pulmonary function despite ongoing aggressive therapies. still not safe for SBT given hypoxia. also severely hypertensive this morning. 11/05: continues to diurese well and Cr still at baseline. fio2 at 90% however, and no clinical improvements in mental status or hypoxia. still unsafe for SBT given hypoxemia. off pathway. hypertension under much better control. poor neuro status is concerning. 11/06: Remains severely hypoxemic. FiO2 was 100% PEEP 14. I reduce FiO2 to 90% after increasing PEEP to 16. Developed a flutter with RVR overnight, currently on Cardizem drip. Unable to do SBT due to very high settings 11/07: Remains hypoxemic and but able to wean FiO2 down to 80% with PEEP of 16. Remains unresponsive on sedation. Unable to trach due to his high vent settings and high FiO2. Remains on Cardizem and 15 mg per hour, with rate controlled a flutter. We'll start by mouth Cardizem in an attempt to wean IV Cardizem 11/08: Remains critically ill hypoxic but FiO2 now weaned to 60%, PEEP remains at 16. Very heavily sedated no withdrawal to pain. Will hold all continuos sedation. Sputum culture with Klebsiella sensitive to Rocephin. A flutter persistent, will start IV heparin 11/09 Patient is sedated with Diprivan and intubated, On Cardizem drip 15mg/hr for Aflutter. Heparin drip stated yesterday. 11/10 Patient remains sedated and intubated. On Heparin drip. Persistent fever with Tmax 102.5. ETT was replaced yesterday. 11/11 Patient was placed on Cardizem and amio drips overnight for Afib with RVR. Sedated with Diprivan and intubated. On Heparin drip. T;99.3 this morning. 11/12 Patient remains intubated and sedated with Diprivan. On Cardizem drip 15mg/ hr. Afebrile, Tmax 100.6 11/13 Patient is sedate with Diprivan and intubated. In Afib with RVR now on Amio drip. Tmax 100,4 11/14 Remains intubated sedated with propofol and fentanyl. Afib rate controlled , remains on amiodarone and Cardizem gtt. Fio2 remains high at 70%, PEEP 12. CXR persistent bibasilar infiltrates/effusion 11/15: Currently sedated with propofol and fentanyl drips. Currently in A. fib/ flutter on amiodarone drip and Cardizem drip. PEEP increased to 14. FiO2 65. 11/16: Tmax 100.1. Patient more alert and tachycardic this AM. Adding midazolam gtt for sedation and currently tolerating tube feeding. Positive BM. PEEP to 12. FiO2 75% 11/17: Afebrile. FiO2 down to 60%. PEEP set 12. Multiple tracheostomy hopefully on Saturday. Heart rate better control. 11/18: Afebrile. Discontinuing amiodarone drip today and switching to oral. FiO2 between 60 and 70%. Restarting epoprostenol in attempt to get FiO2 down to 50% for tracheostomy tomorrow 11/19 No events overnight. Sedated with Diprivan, Fentanyl and versed. Still requiring high O2 - on PRVC with PEEP;12 and FIO2 70%. Afebrile. 11/20 Patient remains sedated with Diprivan, versed, Fentanyl and intubated. On PRVC with PEEP: 12, FIO2 50% , sats 88-90%. On Heparin drip. 11/21: Tmax 99.4. Tolerating tube feeds. Remains on heparin drip. FiO2 down to 55%. PEEP of 10. Eyes open blinks spontaneously. Does squeeze and weakly on left side with encouragement 11/22: Intubated heavily sedated. FiO2 50%, remains on Flolan. PEEP 10. Bumex 1 mg 1 and Diamox 500 mg 1 IV. She will negative balance. Heparinized tube feeds on hold for tracheostomy today at 12. Remains in atrial flutter 11/23 Patient remains sedated with Diprivan, Fentanyl, Versed and intubated. On Heparin drip. For CT guided thoracentesis today. On APRV 11/24 Patient remains sedated and intubated. 20Fr CT placed yesterday for right sided PTX. Spiked fever with T 101.6. Remains on Heparin drip. 11/25 Patient remains intubated with Diprivan, fentanyl and intubated. On PRVC with PEEP: 10, FIO2 50%. Afebrile. 11/26 Patient is sedated with Diprivan, Fentanyl and intubated. Afebrile. On Heparin drip. On PRVC with PEEP: 10, FIO2 60% 11/27 Patient is scheduled for trach in OR today. Sedated and intubated. Heparin drip is off for trach. 11/28 Patient s/p trach yesterday. Sedated with Diprivan and Fentanyl. Afebrile. On PRVC with PEEP; 10 and FIO2 50% 11/29 No events overnight. Sedated and on ventilator via trach. For PEG tube placement today. Heparin drip on hold. 11/30: Currently afebrile. MAXIMUM TEMPERATURE 100. Positive BM via fecal containing device. Tube feeds on hold secondary to plan PEG tube placement today. Heparin drip on hold as well. 12/01: Status post PEG tube placement yesterday per IR. Heparin drip and tube feeds restarted today. Restarting insulin detemir. Awake and alert and weakly follows commands on sedation 12/02: Tmax 99.3. Tube feeds restarted and tolerating. Awake and alert and weakly follows commands. Plan for MRI brain/C-spine a.m. 12/03. 12/03: Patient is awake. Tolerating PRVC, very weakly wiggling cedric toes. MRI today 12/04/16: Tolerated CPAP with high settings yesterday for several hours 15 over 5. Becomes tachypneic and pressure support wean. MRI of the C-spine shows increased signal, no cord compression. Discussed with Dr. Riggins. He is requesting flexion extension films of C spine. 12/05/16: Desaturated on CPAP today. Now on full vent support with 50% FiO2. Continues to have functional quadriparesis. Dr Riggins reviewed MRI spine- he is not sure about increased signal in cord, but there could be cervical hyperextension injury, from intubation. 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 Cannot do cspine extension/flexion films. Repeat MRI c- spine in a few weeks 12/06/16: Patient remains on vent, placed on CPAP 11/29 now, on 50% FiO2. No improvement in neuro exam patient is awake. Able to minimally shrug shoulders. Continues to behave like functional quadriplegia 12/07/16: Tolerated CPAP approximately 6 hours yesterday but did not tolerate TPs. Having anxiety and some frustration due to neuromuscular weakness. I will add Lexapro. Give Bumex 1 mg x1, CXR shows pleural effusions. 12/08: On 11/29 PS since AM. CBC chest x-ray stable. Lexapro added yesterday for depression. Urine output 3.5 L in 24 hours 12/09: Tolerated CPAP well yesterday tolerated TPs for 2 hours but failed to CPAP today due to hypoxia and tachycardia. Currently on PRVC received metoprolol and fentanyl push with improved heart rate 12/10: Patient is tolerating CPAP today. Left popliteal fossa hematoma, large on left lower extremity ultrasound. Heparin and Coumadin placed on hold will get orthopedic consult 12/11: Slightly improved power of LE, unchanged on upper. L calf remains tense, but pulses are palpable. Holding anticoagulation Objective Vital Signs Date Time Temp Pulse Resp B/P (MAP) Pulse Ox O2 Delivery O2 Flow Rate FiO2 12/11/16 10:08 95 45 12/11/16 09:00 77 22 107/65 (79) 12/11/16 08:00 98.0 12/08/16 14:16 T-piece Intake and Output 12/11/16 12/11/16 12/12/16 08:00 16:00 00:00 Intake Total 1145 ml Output Total 1810 ml Balance -665 ml Result Diagram: 12/11/16 0440 12/10/16 0640 Imaging Last Impressions Gastrostomy Tube Placement 11/30/16 0000 Signed Impressions: Service Date/Time: Wednesday, November 30, 2016 12:22 - CONCLUSION: Uncomplicated gastrostomy tube placement as above. Jorge Jolly MD Chest X-Ray 11/30/16 0000 Signed Impressions: Service Date/Time: Wednesday, November 30, 2016 03:55 - CONCLUSION: Progression in the bilateral pleural effusions and bibasilar pulmonary infiltrates. Fito Mar Jr., MD Abdomen X-Ray 11/30/16 Signed Impressions: Service Date/Time: Wednesday, November 30, 2016 09:43 - CONCLUSION: 1. No definite nasogastric catheter is identified. Repeat examination centered higher in the thorax may be performed for more definitive evaluation. Consider repositioning the nasogastric catheter prior to repeat imaging. Nico Vaughan MD Brain MRI 11/26/16 Signed Impressions: Service Date/Time: Saturday, November 26, 2016 19:52 - CONCLUSION: 1. Small focal signal abnormality in the superior medial left frontal lobe. This is nonspecific. This could be the sequela from prior insult such as a contusion or small infarct. An acute infarct is not seen. A small underlying lesion could have a similar appearance. One could perform a contrast-enhanced study to determine if there is any enhancement associated with this region. 2. There are a few scattered minimal punctate areas of demyelination seen not expected for the patient's age. 3. Sinus disease. Jayson Soto MD Lower Extremity Ultrasound 11/09/16 0000 Signed Impressions: Service Date/Time: Wednesday, November 09, 2016 14:13 - CONCLUSION: Normal examination. Jayson Manning MD Liver Ultrasound 11/09/16 0000 Signed Impressions: Service Date/Time: Wednesday, November 09, 2016 13:58 - CONCLUSION: Sono dense liver without duct dilatation. 4 mm common duct. Ward Kim MD FACR Chest CT 11/06/16 0000 Signed Impressions: Service Date/Time: Sunday, November 06, 2016 11:24 - CONCLUSION: 1. Dense bilateral posterior lower lobe airspace consolidation consistent with aspiration versus less likely pneumonia. 2. Linear consolidation in the right middle lobe consistent with atelectasis versus aspiration. 3. Trace left and small right pleural effusions. 4. Support lines and tubes in good position. 5. Prominent coronary artery calcifications. Nico Vaughan MD Head CT 11/05/16 0000 Signed Impressions: Service Date/Time: Saturday, November 05, 2016 21:43 - CONCLUSION: 1. No acute intracranial abnormalities. Pansinus fluid opacification. Cristofer De Santiago MD Carotid Artery Ultrasound 10/25/16 0000 Signed Impressions: Service Date/Time: September 08:27 - CONCLUSION: Mild to moderate plaque in both carotid systems with less than 40%% diameter stenosis by velocity criteria. Jhonathan Dietz MD CT Angiography 10/25/16 0000 Signed Impressions: Service Date/Time: September 06:12 - CONCLUSION: 1. Negative for pulmonary embolism. 2. There is a fairly large area of masslike consolidation in the medial right lung involving posterior segment right upper lobe and medial aspect of right lower lobe. There is associated right hilar and mediastinal adenopathy measuring up to 2.1 cm. Differential diagnosis includes pneumonia or underlying lung neoplasm. Close followup imaging recommended after treatment for pneumonia, to assess for underlying mass. Cristofer De Santiago MD Objective Remarks GENERAL: 56-year-old male, critically ill currently on CPAP via tracheostomy SKIN: Warm and dry. Positive intertrigo HEAD: Atraumatic. Normocephalic. EYES: Pupils equal and round about 3 mm bilaterally and reactive. No scleral icterus. No injection or drainage. ENT: No nasal bleeding or discharge. NECK: Trachea midline. No JVD. Tracheostomy site is clean dry and intact CARDIOVASCULAR: Tachycardia, IR. S1, S2 no S4. Diminished heart sounds. Without murmur, clicks, or rubs RESPIRATORY: Bilateral mild expiratory wheezes and coarse bilateral anterior rhonchi appreciated. GASTROINTESTINAL: Abdomen soft, obese. MUSCULOSKELETAL: Extremities with trace lower extremity bilateral edema. No obvious deformities. L calf is some what tense, but no evidence of compartment syndrome NEUROLOGICAL: Eyes are open. Positive gag. Weakly moves fingers and toes. Able to shrug shoulders Date of Insertion: Nov 16, 2016 Line: PICC Side: Left Location: Antecubital A/P Assessment and Plan Neuro/Psych: Functional quadriparesis CIM/SHEFALI s/p Neuromuscular paralysis for Prone therapy Agitated Delirium, Metabolic Encephalopathy Syncope Depression MRI C-spine showing increased signals C3-C5 region. Dr Riggins reviewed MRI spine- not sure about increased signal in cord, but could be cervical hyperextension injury, from intubation according to Dr. Riggins. Unable to do flexion-extension films of the C-spine (trached patient). 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 ) Off all continuos sedation off 12/03/16. On Fentanyl patch 50 g per hour Continue liquid oxycodone 5 mg every 6 per tube. prn hydromorphone, fentanyl for breakthrough. Haloperidol 5mg iv q4h prn for agitation. Lexapro 10 mg qhs from 12/07/16. Titrate dose up in one week as tolerated MRI brain 11/26: Small focal signal abnormality in the superior medial left frontal lobe. Could be sequela from prior insult such as a contusion or small infarct. No acute infarct MRI brain 12/[address] on admission revealed no acute intracranial findings, CT brain 11/05- no acute findings. opacification of sinuses. EEG 11/20: No seizure activity. EEG 11/09: severe encephalopathy PT/OT for range of motion, up to stretcher chair as tolerated CV: Atrial fib/ flutter with RVR Hypertension, now intermittently hypotensive On Amiodarone 200mg Q12, Digoxin 0.125 mg daily(Dig. level 0.5 on 12/01). On PO diltiazem 90 mg PO q6hr, metoprolol 50mg Q6 DCd CLONIDINE 12/06/16 DUE TO INTERMITTENT HYPOTENSION IV heparin for anticoagulation. Started Coumadin 12/04/16 and pharmacy dosing. Coumadin and heparin 12/10 held due to left popliteal fossa hematoma Echo 10/25 EF 60-65%. Repeat echo with bubble study: 11/22: No shunt seen Bumex 1 mg IV x1 12/07 Resp: Acute, now chronic hypoxemic Respiratory failure s/p trach 11/27 Spontaneous Right sided PTX 2nd barotrauma COPD exacerbation Pneumonia most likely community-acquired Obesity hypoventilation syndrome Tobacco use disorder On PRVC FIO2 50%. SBT and TP as tolerated. TP for 2-4 hours as tolerated Albuterol/ipratropium aerosols every 4 hours of albuterol aerosols every 2 hours PRN. Ventilator bundle Budesonide 0.5 mg/2 mL aerosols twice a day. Prednisone 20 mg daily s/p trach 11/[address] Martin #8 [place]. Pulmonary/Dr. Wynne has followed s/p 20Fr CT placed for right PTX 11/23, monitor CT drainage. Leave CT in place until vent settings, hypoxia improved CT pulmonary angio revealed no pulmonary embolus. Masslike consolidation in the posterior right upper lobe and medial right lower lobe. Lymphadenopathy to 1 cm right hilum and subcarinal. Atelectasis left lower lobe. Discontinued Prone therapy 11/02/16. GI: Morbid Obesity Elevated LFT's- now within normal. PEG tube placement 11/30 US liver: No ductal dilatation Tube feeds Vital high protein 1.5 at 40ml/hr Famotidine 20 milligrams mg twice a day for GI prophylaxis /renal: Hyponatremia Monitor renal function, I/O's, electrolytes replacement per protocol. Endo: Hyperglycemia- SSI Q6h with Regular Insulin mild protocol for glycemic control. Previously insulin detemir 62 units twice a day. Restarted 15 units twice a day 12/01. Adequate blood sugar control . Heme: Normocytic anemia Leukocytosis L popliteal fossa hematoma Monitor CBC, coags- Heparin/Coumadin on hold Monitor closely for compartment syndrome ID: Severe sepsis HAP Continue abx(piperacillin/tazobactam and sulfamethoxazole/trimethoprim 800/160 2 tablets 3 times a day) Sputum: Klebsiella, Stenotrophomonas and Pseudomonas 11/27 Sputum cx 11/23: Kleb, Pseudomonas, s/p (ceftriaxone and fluconazole course). ID is following-Dr. Patel s/p ceftriaxone 11/02-11/09 for Enterobacter pneumonia. Repeat sputum Klebsiella sensitive to Rocephin 10/29/16-Enterobacter in sputum, 11/06/16, 11/10 sputum- Klebsiella Urine Legionella and pneumococcal antigens negative and influenza negative C-diff PCR is negative Access RUE PICC placed 11/05 through 11/15 replaced 11/16 with left upper extremity PICC Prophylaxis GI, famotidine. DVT - IV heparin gtt, Coumadin started 12/04/16-held 12/10 left popliteal hematoma, 11/09 Doppler US LE negative for DVT Palliative care is following Critical Care: Level 2 Roro Tyler MD Dec 11, 2016 11:02
--- NOTE | 2016-12-11 17:33 | HHI.HCPN ---
Reason for visit a. To assist with evaluation and management of symptoms including: pain, dyspnea, encephalopathy. b. To assist medical decision maker(s) with: better understanding of current medical conditions; weighing benefits/burdens of medical treatment options; making medical treatment decisions. . Subjective/Interval History Patient seen and examined in ICU. patient resting in bed in no acute distress. Awake, alert x self, place and situation. Remains on mechanical ventilation via tracheostomy, communicating by mouthing words. Able to answer simple questions. Patient was able to mouth his name, age, location. He tells me that he came to the hospital due to "breathing issues". Reviewed clinical course and current medical management. Patient endorsing feeling weak, denies pain, shortness of breath or abdominal discomfort. Patient remains afebrile, stable hemodynamically. FiO2 45%, oxygen saturation in the mid 90s. Lower extremity ultrasound 12/09/16 negative for DVT. Most recent chest x-ray revealing basilar airspace disease and small effusions, right chest tube without pneumothorax. Negative C. difficile on 12/04/16. Patient able to follow some simple commands, very weak bilateral hand grasp. Attempting to move bilateral toes/leg. Reviewed with patient rationale for tracheostomy and PEG tube placement. Patient appears to have a fair understanding of his complex medical issues, he indicates that tracheostomy/PEG is acceptable to him. Readdressed code status/ goals of care; patient electing to remain full code and to continue with current ongoing aggressive management. Reviewed ongoing dispo planning to include Medicaid application, rehabilitation vs long-term placement. Reviewed that dispo is still subject to his needs at time of discharge. Reviewed likely difficult placement given no current payor source and ventilator dependent/ trach. Reviewed that as per [place] law, his 3 children are acting as healthcare proxy decision maker. Patient was offered assistance with completion of advance directives. Patient declined at this time, mouthing that he would like to keep his 3 children as HCP decision makers. Telephone conversation with patient's son Drake, medical update provided. . Family/friend interactions See interval note. . Advance Directives Living Will: Never completed Health Care Surrogate: Never completed Durable Power of Manager Bilingual: Never completed Advance Directive Specifics Health Care Surrogate(s): Patient appears to be regaining medical decision-making capacity. Patient is single. Has 1 son (Drake Andrews) and 2 daughters (Ira Mcgovern and Krystyna Palma). According to [place] statutes, health care proxy decision-making would fall to the majority of adult children. IraKrystyna ayala and Drake wish to participate. . Significant change in goals: Full code. Patient electing to continue aggressive management to include full code. . Objective Vital Signs Date Time Temp Pulse Resp B/P (MAP) Pulse Ox O2 Delivery O2 Flow Rate FiO2 12/11/16 13:42 95 45 12/11/16 11:30 95 55 12/11/16 10:08 95 45 12/11/16 09:00 77 22 107/65 (79) 96 12/11/16 08:30 68 24 105/60 (75) 95 12/11/16 08:00 45 12/11/16 08:00 98.0 63 16 100/58 (72) 96 12/11/16 08:00 63 12/11/16 07:30 62 17 99/57 (71) 97 12/11/16 07:29 98 45 12/11/16 07:00 62 20 93/53 (66) 96 12/11/16 06:30 62 22 94/63 (73) 96 12/11/16 06:00 62 20 90/55 (67) 99 12/11/16 06:00 62 12/11/16 05:31 63 33 87/51 (63) 94 12/11/16 05:01 86 36 98/56 (70) 95 12/11/16 05:00 86 23 95 12/11/16 04:20 97 45 12/11/16 04:00 127 12/11/16 04:00 45 12/11/16 04:00 97.3 127 17 149/84 (105) 98 12/11/16 02:00 63 12/11/16 01:06 96 45 12/11/16 00:00 98.7 110 40 91/50 (64) 94 12/11/16 00:00 110 12/11/16 00:00 45 12/10/16 22:03 100 40 12/10/16 22:00 100 12/10/16 20:00 45 12/10/16 20:00 64 12/10/16 20:00 98.8 64 19 118/66 (83) 97 12/10/16 19:25 98 45 12/10/16 18:21 111 Intake & Output 12/11/16 12/11/16 07:00 19:00 Intake Total 1045 ml 211 ml Output Total 1810 ml Balance -765 ml 211 ml IV Total 100 ml 211 ml Tube Feeding 845 ml Other 100 ml Output Urine Total 1800 ml Chest Tube Drainage Total 10 ml # Bowel Movements 0 Physical Exam CONSTITUTIONAL/GENERAL: This is an overweight male resting in bed in no acute distress. TUBES/LINES/DRAINS: tracheostomy, PEG, Santiago catheter, SCDs to right leg, right chest tube. SKIN: Ecchymoses on upper extremities. Abrasion/ scab on right knee. EYES: eyes open, tracking. No discharge noted. CARDIOVASCULAR: Regular rate and rhythm. No murmur. Edema to bilateral lower extremities. RESPIRATORY/CHEST: On ventilator support via tracheostomy. Breath sounds coarse , right > left. Right chest tube with serosanguineous output. GASTROINTESTINAL: Abdomen obese, large, round. Bowel sounds present. Tolerating tube feeding. PEG tube to midabdomen. GENITOURINARY: Without palpable bladder distension. Catheter in place. MUSCULOSKELETAL: Extremities with 2+ edema. NEUROLOGICAL: Eyes open, tracking, alert to self x place and situation. Mouthing words to communicate. Following simple commands. Weak hand grasp bilaterally. Slightly moving bilateral lower extremities. PSYCHIATRIC: Awake, calm. . Diagnostic Tests Laboratory Laboratory Tests Test 12/09/16 05:25 12/09/16 13:53 12/10/16 06:40 12/11/16 04:40 Prothrombin Time 12.7 SEC (9.8-11.6) 13.3 SEC (9.8-11.6) 17.2 SEC (9.8-11.6) Prothromb Time International Ratio 1.1 RATIO 1.2 RATIO 1.5 RATIO Activated Partial Thromboplast Time 94.0 SEC (24.3-30.1) 44.1 SEC (24.3-30.1) 29.4 SEC (24.3-30.1) 33.6 SEC (24.3-30.1) Blood Urea Nitrogen 15 MG/DL (7-18) 15 MG/DL (7-18) Creatinine LESS THAN 0.15 MG/DL LESS THAN 0.15 MG/DL Random Glucose 151 MG/DL (74-106) 125 MG/DL (74-106) Total Protein 5.4 GM/DL (6.4-8.2) 5.6 GM/DL (6.4-8.2) Albumin 2.2 GM/DL (3.4-5.0) 2.3 GM/DL (3.4-5.0) Calcium Level 8.1 MG/DL (8.5-10.1) 8.7 MG/DL (8.5-10.1) Alkaline Phosphatase 91 U/L (45-117) 87 U/L (45-117) Aspartate Amino Transf (AST/SGOT) 28 U/L (15-37) 22 U/L (15-37) Alanine Aminotransferase (ALT/SGPT) 67 U/L (12-78) 60 U/L (12-78) Total Bilirubin 0.3 MG/DL (0.2-1.0) 0.4 MG/DL (0.2-1.0) Sodium Level 127 MEQ/L (136-145) 129 MEQ/L (136-145) Potassium Level 3.9 MEQ/L (3.5-5.1) 4.2 MEQ/L (3.5-5.1) 3.9 MEQ/L (3.5-5.1) Chloride Level 92 MEQ/L (98-107) 93 MEQ/L (98-107) Carbon Dioxide Level 28.3 MEQ/L (21.0-32.0) 27.4 MEQ/L (21.0-32.0) Anion Gap 7 MEQ/L (5-15) 9 MEQ/L (5-15) Estimat Glomerular Filtration Rate 690 ML/MIN (>89) 690 ML/MIN (>89) Phosphorus Level 2.4 MG/DL (2.5-4.9) White Blood Count 14.4 TH/MM3 (4.0-11.0) 13.7 TH/MM3 (4.0-11.0) Red Blood Count 3.27 MIL/MM3 (4.50-5.90) 3.11 MIL/MM3 (4.50-5.90) Hemoglobin 10.0 GM/DL (13.0-17.0) 9.6 GM/DL (13.0-17.0) Hematocrit 30.3 % (39.0-51.0) 28.8 % (39.0-51.0) Mean Corpuscular Volume 92.5 FL (80.0-100.0) 92.4 FL (80.0-100.0) Mean Corpuscular Hemoglobin 30.5 PG (27.0-34.0) 30.9 PG (27.0-34.0) Mean Corpuscular Hemoglobin Concent 33.0 % (32.0-36.0) 33.5 % (32.0-36.0) Red Cell Distribution Width 15.4 % (11.6-17.2) 15.6 % (11.6-17.2) Platelet Count 328 TH/MM3 (150-450) 288 TH/MM3 (150-450) Mean Platelet Volume 7.4 FL (7.0-11.0) 6.7 FL (7.0-11.0) Neutrophils (%) (Auto) 80.9 % (16.0-70.0) Lymphocytes (%) (Auto) 11.9 % (9.0-44.0) Monocytes (%) (Auto) 5.4 % (0.0-8.0) Eosinophils (%) (Auto) 0.4 % (0.0-4.0) Basophils (%) (Auto) 1.4 % (0.0-2.0) Neutrophils # (Auto) 11.6 TH/MM3 (1.8-7.7) Lymphocytes # (Auto) 1.7 TH/MM3 (1.0-4.8) Monocytes # (Auto) 0.8 TH/MM3 (0-0.9) Eosinophils # (Auto) 0.1 TH/MM3 (0-0.4) Basophils # (Auto) 0.2 TH/MM3 (0-0.2) CBC Comment AUTO DIFF Differential Total Cells Counted 100 Neutrophils % (Manual) 51 % (16-70) Band Neutrophils % 19 % (0-6) Lymphocytes % 16 % (9-44) Monocytes % 9 % (0-8) Basophils % 1 % (0-2) Neutrophils # (Manual) 10.7 TH/MM3 (1.8-7.7) Myelocytes 4 % (0-0) Differential Comment FINAL DIFF MANUAL Platelet Estimate NORMAL (NORMAL) Platelet Morphology Comment NORMAL (NORMAL) Magnesium Level 1.9 MG/DL (1.5-2.5) Result Diagram: 12/11/16 0440 12/10/16 0640 Procedures * 11/30/16 - PEG tube placement * 11/27/16 - tracheostomy * 11/23/16 - right chest tube placement. * 11/10/16 - ETT replaced. * 11/04/16 - arterial line placement. * 10/25/16 - Intubation and central line placed. . Assessment and Plan Disease Oriented Problem List: (1) Acute respiratory failure (2) ARDS (adult respiratory distress syndrome) (3) COPD (chronic obstructive pulmonary disease) (4) Obesity hypoventilation syndrome (5) Leukocytosis (6) Sepsis (7) Hyperglycemia (8) Morbid obesity (9) Hypertension Symptom Scale: (1) Pain 0-10 Scale: 0 Comment: Denies pain at this time. (2) Dyspnea 0-10 Scale: Unable to quantify Comment: on vent to trach. (3) Encephalopathy 0-10 Scale: Unable to quantify Comment: Appears resolving. Pertinent Non-Medical Issues Psychosocial: notes indicate patient is single. Has one son and 2 daughters. Was living with his son prior to admission. Spiritual: unknown. Legal: Patient appears to be regaining medical decision-making capacity. Patient is single. Has 1 son (Drake Andrews) and 2 daughters (Ira Mcgovern and Krystyna Palma). According to [place] statutes, health care proxy decision- making would fall to the majority of adult children. Krystyna Roth and Drake wish to participate. Ethical issues impacting care: No ethical issues identified at this time. . . Important Contacts * Ira Mcgovern, daughter/ HCP: [phone] (cell) or [phone] ext. [phone] (work) * Drake Andrews, son/ HCP: [phone] (cell) or [phone] (work) * Krystyna Palma, daughter/ HCP: [phone] * Drake Henry girlfriend: [phone] . . Prognosis Mr. Andrews is an unfortunate 56-year-old male who was admitted with respiratory distress, pneumonia, ARDS with prolonged hospitalization/mechanical ventilation. 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 Patient remains a high risk for further complications, continue decline and . Patient will likely require acute rehabilitation upon discharge. . Code Status: Full Code Plan * CODE STATUS: Full code. CODE STATUS readdressed today, patient electing to remain full code. * MEDICAL DECISION-MAKING: Patient appears to be regaining medical decision- making capacity. Patient communicating by mouthing words given tracheostomy. He appears to have a fair understanding of his complex medical issues. No advance directives previously completed. Reviewed with patient that as per [place] law, healthcare proxy decision maker falls to the majority of his adult children, for which he has 3. Patient was offered assistance with completion of advance directives and was given the opportunity to appoint a designated healthcare surrogate. Patient declined at this time, mouthing that he would like to keep his 3 children as HCP decision makers. * GOALS OF CARE: 12/11/16 -Patient electing to remain full code and to continue with current ongoing aggressive management. Patient's son Drake fully supportive of patient's wishes. Reviewed with patient ongoing dispo planning to include Medicaid application, rehabilitation vs long-term placement. Reviewed that dispo is still subject to his needs at time of discharge. Reviewed likely difficult placement given no current payor source/ coverage for rehab and ventilator dependent/trach. * SYMPTOMS: =Dyspnea: remains on prolonged mechanical ventilation s/p trach. Underlying COPD, obesity. = Pain, multifactorial given prolonged hospitalization , chest tube, tracheostomy. Oxycodone 5 mg q6hr [id number]. Patient appears comfortable and denies pain at the time of my visit. = Debility, myopathy likely secondary to critical illness, neuromuscular blockage and steroid use. Appears to be slightly improving, very weak bilateral hand grasp today, patient attempting to mobilize right leg. * Palliative care contact information has been provided to patient and family. * Palliative care will continue to follow-up throughout hospital course to assist with symptom management and clarification of goals as needed. . Time Spent Total Floor Time (mins): 36 (Total time to include review medical records, physical exam, goals of care conversation with patient, telephone conversation with patient's son Drake. ) >50% Counseling/Coord of Care: Yes Attestation To help prompt me to consider important information that might be impacting today's encounter and assessment, information from prior notes written by myself or my colleagues may have been "brought forward" into today's note. My signature on this note, however, is an attestation that I personally performed the exam, history, and/or decision-making noted today, and, unless otherwise indicated, the interactions with patient, family, and staff as well as the review of records all occurred today. I also attest that the listed assessment and stated plan reflect my best clinical judgment today based on the combination of historical information, prior notes, and today's exam/ interactions. When time spent is documented, it refers only to time spent today by the signer, or if indicated, combined time spent today by collaborating physician/nurse practitioner. Harper Westfall Dec 11, 2016 17:33
[2016-12-11] MEDS: ESCITALOPRAM OXALATE 10 MG TAB PO SCH (20:18)
[2016-12-12] VITALS (18 sets, daily range): BP systolic 120–136; BP diastolic 68–83; PULSE 61–118; RESP 16–23; TEMP 97.5–98.8; O2SAT 95–100
[2016-12-12] MEDS: PIPERACIL-TAZO 4.5 GM PREMIX 100 ML IV SCH (00:47)
[2016-12-12] MEDS: METOPROLOL TARTRATE 50 MG TAB PO SCH ×4 (00:53→18:00)
[2016-12-12] MEDS: DILTIAZEM HCL 90 MG TAB PO SCH ×4 (00:53→18:00)
[2016-12-12] MEDS: INSULIN NovoLIN REGULAR SUPPLEMENTAL SCALE SQ SCH ×4 (02:00→20:00)
[2016-12-12] MEDS: CHLORHEXIDINE GLUCONATE 2 % 1 PACK (2 CLOTHS) TOP SCH (04:00)
[2016-12-12] MEDS: oxyCODONE HCL ORAL CONC 5 MG/0.25 ML SYRINGE PEG SCH ×4 (04:28→23:15)
[2016-12-12 05:18] LABS: APTT (PATIENT) 27.5 SEC (24.3-30.1)
[2016-12-12 05:37] LABS: GLOMERULAR FILTRATION RATE 690 ML/MIN (>89)
[2016-12-12] MEDS: RESP: BUDESONIDE 0.5 MG/2 ML NEB NEB SCH ×2 (07:28→19:27)
[2016-12-12] MEDS: CHLORHEXIDINE 0.12% (ORAL KIT) 15 ML CUP MT SCH ×2 (08:00→20:00)
[2016-12-12] MEDS: INSULIN DETEMIR 100 UNITS/ML VIAL SQ SCH ×2 (09:00→21:00)
[2016-12-12] MEDS: SODIUM CHLORIDE 1 GRAM TAB PO SCH ×2 (10:19→21:00)
[2016-12-12] MEDS: DIGOXIN 0.125 MG TAB PO SCH (10:19)
[2016-12-12] MEDS: AMIODARONE 200 MG TAB OG-TUBE SCH ×2 (10:19→21:00)
[2016-12-12] MEDS: LISINOPRIL 10 MG TAB PO SCH (10:19)
[2016-12-12] MEDS: predniSONE 20 MG TAB PO SCH (10:19)
[2016-12-12] MEDS: ARTIFICIAL TEARS OPTH OINT 3.5 APPLIC/3.5 GM TUBO EACH EYE SCH ×2 (10:20→21:00)
[2016-12-12] MEDS: SODIUM CHLORIDE 0.9% FLUSH 10 ML FLUSH SCH ×2 (10:21→21:00)
[2016-12-12] MEDS: SODIUM CHLORIDE 0.9% FLUSH 10 ML FLUSH IV FLUSH SCH (10:22)
[2016-12-12] MEDS: SODIUM CHLORIDE 0.9% FLUSH 10 ML FLUSH IVF SCH (10:23)
[2016-12-12] MEDS: FAMOTIDINE 20 MG TAB NG SCH ×2 (10:23→21:00)
--- NOTE | 2016-12-12 14:06 | HHI.CCPN ---
Subjective Remarks/Hospital Course 56-year-old very pleasant gentleman with past medical history of COPD, and hypertension presents complaining of shortness of breath and nausea, generalized fatigue and chills for 2 days. He thinks it has been from being out in the heat. Denies any fever, chest pain, vomiting, abdominal pain, focal weakness or numbness. In the emergency department his saturation was in mid 80s on arrival with auditory wheezing and tachypnea. He was placed on 4 liters of NC and saturating in the low 90. He does not use oxygen at home. He also mentioned 2 days ago, he came home and was sitting in a chair and was taking his shoes off when he passed out. States he woke up and was still on the chair. This has never happen before. 10/25: Patient intubated secondary to increasing oxygen requirements, altered mental status. Discussed with son. Somewhat hypertensive post intubation. 10/26: Placed on rotaprone bed last evening. Flolan initiated. Saturations improved. Afebrile. Remains on Nimbex drip. 10/27: T max 99.7. Tolerated on not prone position 2 hours yesterday. Tolerating trickle feeds. FiO2 down to 55% 10/28: Tmax 99.9. When unprone for chest x-ray this a.m. desaturated. Currently on 90% FiO2. Actually hypertensive. No bowel movements. Remains paralyzed 10/29: Remains intubated sedated on continuous Prone therapy Except for chest x- ray. Fever 100.8. Panculture requested. Zyvox added. Continue IV sedation with propofol and fentanyl and Versed, neuromuscular paralysis with Nimbex 10/30: Prone cycle changed to 8 hr prone, 1 hr supine from 10/29. Due to hypoxia will continue with same cycle today. Chest x-ray remains unchanged. Patient remains severely hypoxemic FiO2 at 75% PEEP at 16. WBC count worsened to 18. Remains neuromuscularly paralyzed. 10/31: Patient remains critically ill but stable. Oxygen saturation 95% on 55 of FiO2 and PEEP of 16. Reduce PEEP to 14, FiO2 to 50% and start weaning Flolan. Increase supine time to 4 hours, reduce Prone time to 6 hours 11/01: Patient remains intubated sedated critically ill on neuromuscular paralysis. FiO2 reduced to 50, I will attempt PEEP wean gradually to 12 today. Prone/supine cycles will be changed to 6 hours each 11/02: FiO2 remains at 50%, PEEP reduced from 14 to 12 today, TV increased to 600 and RR to 20, in anticipation of discontinuing prone therapy, which will be DCd today. Off Flolan for 2 days 11/03: off pronation. fio2 up to 65% , peep 12. agitation causing desaturation. minimal improvements. 11/04: good diuresis yesterday, but despite that, fio2 persists at 65% and spo2 decreasing to 91% today. no real improvements and some worsening of pulmonary function despite ongoing aggressive therapies. still not safe for SBT given hypoxia. also severely hypertensive this morning. 11/05: continues to diurese well and Cr still at baseline. fio2 at 90% however, and no clinical improvements in mental status or hypoxia. still unsafe for SBT given hypoxemia. off pathway. hypertension under much better control. poor neuro status is concerning. 11/06: Remains severely hypoxemic. FiO2 was 100% PEEP 14. I reduce FiO2 to 90% after increasing PEEP to 16. Developed a flutter with RVR overnight, currently on Cardizem drip. Unable to do SBT due to very high settings 11/07: Remains hypoxemic and but able to wean FiO2 down to 80% with PEEP of 16. Remains unresponsive on sedation. Unable to trach due to his high vent settings and high FiO2. Remains on Cardizem and 15 mg per hour, with rate controlled a flutter. We'll start by mouth Cardizem in an attempt to wean IV Cardizem 11/08: Remains critically ill hypoxic but FiO2 now weaned to 60%, PEEP remains at 16. Very heavily sedated no withdrawal to pain. Will hold all continuos sedation. Sputum culture with Klebsiella sensitive to Rocephin. A flutter persistent, will start IV heparin 11/09 Patient is sedated with Diprivan and intubated, On Cardizem drip 15mg/hr for Aflutter. Heparin drip stated yesterday. 11/10 Patient remains sedated and intubated. On Heparin drip. Persistent fever with Tmax 102.5. ETT was replaced yesterday. 11/11 Patient was placed on Cardizem and amio drips overnight for Afib with RVR. Sedated with Diprivan and intubated. On Heparin drip. T;99.3 this morning. 11/12 Patient remains intubated and sedated with Diprivan. On Cardizem drip 15mg/ hr. Afebrile, Tmax 100.6 11/13 Patient is sedate with Diprivan and intubated. In Afib with RVR now on Amio drip. Tmax 100,4 11/14 Remains intubated sedated with propofol and fentanyl. Afib rate controlled , remains on amiodarone and Cardizem gtt. Fio2 remains high at 70%, PEEP 12. CXR persistent bibasilar infiltrates/effusion 11/15: Currently sedated with propofol and fentanyl drips. Currently in A. fib/ flutter on amiodarone drip and Cardizem drip. PEEP increased to 14. FiO2 65. 11/16: Tmax 100.1. Patient more alert and tachycardic this AM. Adding midazolam gtt for sedation and currently tolerating tube feeding. Positive BM. PEEP to 12. FiO2 75% 11/17: Afebrile. FiO2 down to 60%. PEEP set 12. Multiple tracheostomy hopefully on Saturday. Heart rate better control. 11/18: Afebrile. Discontinuing amiodarone drip today and switching to oral. FiO2 between 60 and 70%. Restarting epoprostenol in attempt to get FiO2 down to 50% for tracheostomy tomorrow 11/19 No events overnight. Sedated with Diprivan, Fentanyl and versed. Still requiring high O2 - on PRVC with PEEP;12 and FIO2 70%. Afebrile. 11/20 Patient remains sedated with Diprivan, versed, Fentanyl and intubated. On PRVC with PEEP: 12, FIO2 50% , sats 88-90%. On Heparin drip. 11/21: Tmax 99.4. Tolerating tube feeds. Remains on heparin drip. FiO2 down to 55%. PEEP of 10. Eyes open blinks spontaneously. Does squeeze and weakly on left side with encouragement 11/22: Intubated heavily sedated. FiO2 50%, remains on Flolan. PEEP 10. Bumex 1 mg 1 and Diamox 500 mg 1 IV. She will negative balance. Heparinized tube feeds on hold for tracheostomy today at 12. Remains in atrial flutter 11/23 Patient remains sedated with Diprivan, Fentanyl, Versed and intubated. On Heparin drip. For CT guided thoracentesis today. On APRV 11/24 Patient remains sedated and intubated. 20Fr CT placed yesterday for right sided PTX. Spiked fever with T 101.6. Remains on Heparin drip. 11/25 Patient remains intubated with Diprivan, fentanyl and intubated. On PRVC with PEEP: 10, FIO2 50%. Afebrile. 11/26 Patient is sedated with Diprivan, Fentanyl and intubated. Afebrile. On Heparin drip. On PRVC with PEEP: 10, FIO2 60% 11/27 Patient is scheduled for trach in OR today. Sedated and intubated. Heparin drip is off for trach. 11/28 Patient s/p trach yesterday. Sedated with Diprivan and Fentanyl. Afebrile. On PRVC with PEEP; 10 and FIO2 50% 11/29 No events overnight. Sedated and on ventilator via trach. For PEG tube placement today. Heparin drip on hold. 11/30: Currently afebrile. MAXIMUM TEMPERATURE 100. Positive BM via fecal containing device. Tube feeds on hold secondary to plan PEG tube placement today. Heparin drip on hold as well. 12/01: Status post PEG tube placement yesterday per IR. Heparin drip and tube feeds restarted today. Restarting insulin detemir. Awake and alert and weakly follows commands on sedation 12/02: Tmax 99.3. Tube feeds restarted and tolerating. Awake and alert and weakly follows commands. Plan for MRI brain/C-spine a.m. 12/03. 12/03: Patient is awake. Tolerating PRVC, very weakly wiggling cedric toes. MRI today 12/04/16: Tolerated CPAP with high settings yesterday for several hours 15 over 5. Becomes tachypneic and pressure support wean. MRI of the C-spine shows increased signal, no cord compression. Discussed with Dr. Riggins. He is requesting flexion extension films of C spine. 12/05/16: Desaturated on CPAP today. Now on full vent support with 50% FiO2. Continues to have functional quadriparesis. Dr Riggins reviewed MRI spine- he is not sure about increased signal in cord, but there could be cervical hyperextension injury, from intubation. 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 Cannot do cspine extension/flexion films. Repeat MRI c- spine in a few weeks 12/06/16: Patient remains on vent, placed on CPAP 11/29 now, on 50% FiO2. No improvement in neuro exam patient is awake. Able to minimally shrug shoulders. Continues to behave like functional quadriplegia 12/07/16: Tolerated CPAP approximately 6 hours yesterday but did not tolerate TPs. Having anxiety and some frustration due to neuromuscular weakness. I will add Lexapro. Give Bumex 1 mg x1, CXR shows pleural effusions. 12/08: On 11/29 PS since AM. CBC chest x-ray stable. Lexapro added yesterday for depression. Urine output 3.5 L in 24 hours 12/09: Tolerated CPAP well yesterday tolerated TPs for 2 hours but failed to CPAP today due to hypoxia and tachycardia. Currently on PRVC received metoprolol and fentanyl push with improved heart rate 12/10: Patient is tolerating CPAP today. Left popliteal fossa hematoma, large on left lower extremity ultrasound. Heparin and Coumadin placed on hold will get orthopedic consult 12/11: Slightly improved power of LE, unchanged on upper. L calf remains tense, but pulses are palpable. Holding anticoagulation 12/12: Tolerating CPAP 09/07. Slight improvement in muscle strength. Heparin remains on hold Objective Vital Signs Date Time Temp Pulse Resp B/P (MAP) Pulse Ox O2 Delivery O2 Flow Rate FiO2 12/12/16 12:00 70 12/12/16 12:00 45 12/12/16 11:34 96 12/12/16 04:00 98.3 16 131/72 (91) 12/08/16 14:16 T-piece Intake and Output 12/12/16 12/12/16 12/13/16 08:00 16:00 00:00 Intake Total 946 ml Output Total 800 ml Balance 146 ml Result Diagram: 12/11/16 0440 12/12/16 0410 Imaging Last Impressions Gastrostomy Tube Placement 11/30/16 0000 Signed Impressions: Service Date/Time: Wednesday, November 30, 2016 12:22 - CONCLUSION: Uncomplicated gastrostomy tube placement as above. Jorge Jolly MD Chest X-Ray 10/6/17 0000 Signed Impressions: Service Date/Time: Wednesday, November 30, 2016 03:55 - CONCLUSION: Progression in the bilateral pleural effusions and bibasilar pulmonary infiltrates. Fito Mar Jr., MD Abdomen X-Ray 11/30/16 Signed Impressions: Service Date/Time: Wednesday, November 30, 2016 09:43 - CONCLUSION: 1. No definite nasogastric catheter is identified. Repeat examination centered higher in the thorax may be performed for more definitive evaluation. Consider repositioning the nasogastric catheter prior to repeat imaging. Nico Vaughan MD Brain MRI 11/26/16 Signed Impressions: Service Date/Time: Saturday, November 26, 2016 19:52 - CONCLUSION: 1. Small focal signal abnormality in the superior medial left frontal lobe. This is nonspecific. This could be the sequela from prior insult such as a contusion or small infarct. An acute infarct is not seen. A small underlying lesion could have a similar appearance. One could perform a contrast-enhanced study to determine if there is any enhancement associated with this region. 2. There are a few scattered minimal punctate areas of demyelination seen not expected for the patient's age. 3. Sinus disease. Jayson Soto MD Lower Extremity Ultrasound 11/09/16 0000 Signed Impressions: Service Date/Time: Wednesday, November 09, 2016 14:13 - CONCLUSION: Normal examination. Jayson Manning MD Liver Ultrasound 11/09/16 0000 Signed Impressions: Service Date/Time: Wednesday, November 09, 2016 13:58 - CONCLUSION: Sono dense liver without duct dilatation. 4 mm common duct. Ward Kim MD FACR Chest CT 11/06/16 0000 Signed Impressions: Service Date/Time: Sunday, November 06, 2016 11:24 - CONCLUSION: 1. Dense bilateral posterior lower lobe airspace consolidation consistent with aspiration versus less likely pneumonia. 2. Linear consolidation in the right middle lobe consistent with atelectasis versus aspiration. 3. Trace left and small right pleural effusions. 4. Support lines and tubes in good position. 5. Prominent coronary artery calcifications. Nico Vaughan MD Head CT 11/05/16 0000 Signed Impressions: Service Date/Time: Saturday, November 05, 2016 21:43 - CONCLUSION: 1. No acute intracranial abnormalities. Pansinus fluid opacification. Cristofer De Santiago MD Carotid Artery Ultrasound 10/25/16 0000 Signed Impressions: Service Date/Time: September 08:27 - CONCLUSION: Mild to moderate plaque in both carotid systems with less than 40%% diameter stenosis by velocity criteria. Jhonathan Dietz MD CT Angiography 10/25/16 0000 Signed Impressions: Service Date/Time: September 06:12 - CONCLUSION: 1. Negative for pulmonary embolism. 2. There is a fairly large area of masslike consolidation in the medial right lung involving posterior segment right upper lobe and medial aspect of right lower lobe. There is associated right hilar and mediastinal adenopathy measuring up to 2.1 cm. Differential diagnosis includes pneumonia or underlying lung neoplasm. Close followup imaging recommended after treatment for pneumonia, to assess for underlying mass. Cristofer De Santiago MD Objective Remarks GENERAL: 56-year-old male, critically ill currently on CPAP via tracheostomy SKIN: Warm and dry. Positive intertrigo HEAD: Atraumatic. Normocephalic. EYES: Pupils equal and round about 3 mm bilaterally and reactive. No scleral icterus. No injection or drainage. ENT: No nasal bleeding or discharge. NECK: Trachea midline. No JVD. Tracheostomy site is clean dry and intact CARDIOVASCULAR: Tachycardia, IR. S1, S2 no S4. Diminished heart sounds. Without murmur, clicks, or rubs RESPIRATORY: Bilateral mild expiratory wheezes and coarse bilateral anterior rhonchi appreciated. GASTROINTESTINAL: Abdomen soft, obese. MUSCULOSKELETAL: Extremities with trace lower extremity bilateral edema. No obvious deformities. L calf is some what tense, but no evidence of compartment syndrome NEUROLOGICAL: Eyes are open. Positive gag. Weakly moves fingers and toes, but some improvement in overall strength. Able to shrug shoulders Date of Insertion: Nov 16, 2016 Line: PICC Side: Left Location: Antecubital A/P Assessment and Plan Neuro/Psych: Functional quadriparesis CIM/SHEFALI s/p Neuromuscular paralysis for Prone therapy Agitated Delirium, Metabolic Encephalopathy Syncope Depression MRI C-spine showing increased signals C3-C5 region. Dr Riggins reviewed MRI spine- not sure about increased signal in cord, but could be cervical hyperextension injury, from intubation according to Dr. Riggins. Unable to do flexion-extension films of the C-spine (trached patient). Repeat MRI c-spine in a few weeks, probably next week. 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 On Fentanyl patch 50 g per hour. Continue liquid oxycodone 5 mg every 6 per tube. prn hydromorphone, fentanyl for breakthrough. Haloperidol 5mg iv q4h prn for agitation. Lexapro 10 mg qhs from 12/07/16. Titrate dose up in one week as tolerated MRI brain 11/26: Small focal signal abnormality in the superior medial left frontal lobe. Could be sequela from prior insult such as a contusion or small infarct. No acute infarct MRI brain 12/[address] on admission revealed no acute intracranial findings, CT brain 11/05- no acute findings. opacification of sinuses. EEG 11/20: No seizure activity. EEG 11/09: severe encephalopathy PT/OT for range of motion, up to stretcher chair as tolerated CV: Atrial fib/ flutter with RVR Hypertension, now intermittently hypotensive On Amiodarone 200mg Q12, Digoxin 0.125 mg daily(Dig. level 0.5 on 12/01). On PO diltiazem 90 mg PO q6hr, metoprolol 50mg Q6 DCd CLONIDINE 12/06/16 DUE TO INTERMITTENT HYPOTENSION IV heparin for anticoagulation. Started Coumadin 12/04/16 and pharmacy dosing. Coumadin and heparin 12/10 held due to left popliteal fossa hematoma Echo 10/25 EF 60-65%. Repeat echo with bubble study: 11/22: No shunt seen Bumex 1 mg IV x1 12/07 Resp: Acute, now chronic hypoxemic Respiratory failure s/p trach 11/27 Spontaneous Right sided PTX secondary to barotrauma COPD exacerbation Pneumonia most likely community-acquired Obesity hypoventilation syndrome Tobacco use disorder On PRVC FIO2 50%. SBT and TP as tolerated. TP for 2-4 hours as tolerated Albuterol/ipratropium aerosols every 4 hours of albuterol aerosols every 2 hours PRN. Ventilator bundle Budesonide 0.5 mg/2 mL aerosols twice a day. Prednisone 20 mg daily s/p trach 10/[address] Martin #8 [facility]. Pulmonary/Dr. Wynne has followed s/p 20Fr CT placed for right PTX 11/23, monitor CT drainage. Leave CT in place until vent settings, hypoxia improved CT pulmonary angio revealed no pulmonary embolus. Masslike consolidation in the posterior right upper lobe and medial right lower lobe. Lymphadenopathy to 1 cm right hilum and subcarinal. Atelectasis left lower lobe. Discontinued Prone therapy 11/02/16. GI: Morbid Obesity Elevated LFT's- now within normal. PEG tube placement 11/30 US liver: No ductal dilatation Tube feeds Vital high protein 1.5 at 40ml/hr Famotidine 20 milligrams mg twice a day for GI prophylaxis /renal: Hyponatremia Monitor renal function, I/O's, electrolytes replacement per protocol. Endo: Hyperglycemia- SSI Q6h with Regular Insulin mild protocol for glycemic control. Previously insulin detemir 62 units twice a day. Restarted 15 units twice a day 12/01. Adequate blood sugar control . Heme: Normocytic anemia Leukocytosis L popliteal fossa hematoma Monitor CBC, coags- Heparin/Coumadin on hold Monitor closely for compartment syndrome ID: Severe sepsis HAP Continue abx(piperacillin/tazobactam and sulfamethoxazole/trimethoprim 800/160 2 tablets 3 times a day) Sputum: Klebsiella, Stenotrophomonas and Pseudomonas 11/27 Sputum cx 11/23: Kleb, Pseudomonas, s/p (ceftriaxone and fluconazole course). ID is following-Dr. Patel s/p ceftriaxone 11/02-11/09 for Enterobacter pneumonia. Repeat sputum Klebsiella sensitive to Rocephin 10/29/16-Enterobacter in sputum, 11/06/16, 11/10 sputum- Klebsiella Urine Legionella and pneumococcal antigens negative and influenza negative C-diff PCR is negative Access RUE PICC placed 11/05 through 11/15 replaced 11/16 with left upper extremity PICC Prophylaxis GI, famotidine. DVT - IV heparin gtt, Coumadin started 12/04/16 Held 12/10 left popliteal hematoma, 11/09 Doppler US LE negative for DVT Palliative care is following Critical Care: Level 2 Roro Tyler MD Dec 12, 2016 14:06
[2016-12-12] MEDS: ESCITALOPRAM OXALATE 10 MG TAB PO SCH (21:00)
[2016-12-13] VITALS (33 sets, daily range): BP systolic 104–144; BP diastolic 59–85; PULSE 65–126; RESP 12–32; TEMP 98.2–99.5; O2SAT 92–98
[2016-12-13] MEDS: INSULIN NovoLIN REGULAR SUPPLEMENTAL SCALE SQ SCH ×4 (02:00→20:00)
[2016-12-13] MEDS: CHLORHEXIDINE GLUCONATE 2 % 1 PACK (2 CLOTHS) TOP SCH (03:24)
[2016-12-13] MEDS: oxyCODONE HCL ORAL CONC 5 MG/0.25 ML SYRINGE PEG SCH ×3 (04:00→21:02)
[2016-12-13] MEDS: DILTIAZEM HCL 90 MG TAB PO SCH ×4 (06:00→19:44)
[2016-12-13] MEDS: METOPROLOL TARTRATE 50 MG TAB PO SCH ×4 (06:00→19:44)
[2016-12-13] MEDS ORDERED: ALTEPLASE RECOMBINANT 2 MG VIAL IV FLUSH ONE (08:00)
[2016-12-13] MEDS: RESP: BUDESONIDE 0.5 MG/2 ML NEB NEB SCH ×2 (08:54→20:02)
[2016-12-13] MEDS: SODIUM CHLORIDE 0.9% FLUSH 10 ML FLUSH SCH ×2 (09:00→21:03)
[2016-12-13] MEDS: SODIUM CHLORIDE 0.9% FLUSH 10 ML FLUSH IV FLUSH SCH (09:00)
[2016-12-13] MEDS: INSULIN DETEMIR 100 UNITS/ML VIAL SQ SCH ×2 (09:00→21:00)
[2016-12-13] MEDS: SODIUM CHLORIDE 0.9% FLUSH 10 ML FLUSH IVF SCH (09:00)
--- NOTE | 2016-12-13 10:51 | HHI.CCPN ---
Subjective Remarks/Hospital Course 56-year-old very pleasant gentleman with past medical history of COPD, and hypertension presents complaining of shortness of breath and nausea, generalized fatigue and chills for 2 days. He thinks it has been from being out in the heat. Denies any fever, chest pain, vomiting, abdominal pain, focal weakness or numbness. In the emergency department his saturation was in mid 80s on arrival with auditory wheezing and tachypnea. He was placed on 4 liters of NC and saturating in the low 90. He does not use oxygen at home. He also mentioned 2 days ago, he came home and was sitting in a chair and was taking his shoes off when he passed out. States he woke up and was still on the chair. This has never happen before. 10/25: Patient intubated secondary to increasing oxygen requirements, altered mental status. Discussed with son. Somewhat hypertensive post intubation. 10/26: Placed on rotaprone bed last evening. Flolan initiated. Saturations improved. Afebrile. Remains on Nimbex drip. 10/27: T max 99.7. Tolerated on not prone position 2 hours yesterday. Tolerating trickle feeds. FiO2 down to 55% 10/28: Tmax 99.9. When unprone for chest x-ray this a.m. desaturated. Currently on 90% FiO2. Actually hypertensive. No bowel movements. Remains paralyzed 10/29: Remains intubated sedated on continuous Prone therapy Except for chest x- ray. Fever 100.8. Panculture requested. Zyvox added. Continue IV sedation with propofol and fentanyl and Versed, neuromuscular paralysis with Nimbex 10/30: Prone cycle changed to 8 hr prone, 1 hr supine from 10/29. Due to hypoxia will continue with same cycle today. Chest x-ray remains unchanged. Patient remains severely hypoxemic FiO2 at 75% PEEP at 16. WBC count worsened to 18. Remains neuromuscularly paralyzed. 10/31: Patient remains critically ill but stable. Oxygen saturation 95% on 55 of FiO2 and PEEP of 16. Reduce PEEP to 14, FiO2 to 50% and start weaning Flolan. Increase supine time to 4 hours, reduce Prone time to 6 hours 11/01: Patient remains intubated sedated critically ill on neuromuscular paralysis. FiO2 reduced to 50, I will attempt PEEP wean gradually to 12 today. Prone/supine cycles will be changed to 6 hours each 11/02: FiO2 remains at 50%, PEEP reduced from 14 to 12 today, TV increased to 600 and RR to 20, in anticipation of discontinuing prone therapy, which will be DCd today. Off Flolan for 2 days 11/03: off pronation. fio2 up to 65% , peep 12. agitation causing desaturation. minimal improvements. 11/04: good diuresis yesterday, but despite that, fio2 persists at 65% and spo2 decreasing to 91% today. no real improvements and some worsening of pulmonary function despite ongoing aggressive therapies. still not safe for SBT given hypoxia. also severely hypertensive this morning. 11/05: continues to diurese well and Cr still at baseline. fio2 at 90% however, and no clinical improvements in mental status or hypoxia. still unsafe for SBT given hypoxemia. off pathway. hypertension under much better control. poor neuro status is concerning. 11/06: Remains severely hypoxemic. FiO2 was 100% PEEP 14. I reduce FiO2 to 90% after increasing PEEP to 16. Developed a flutter with RVR overnight, currently on Cardizem drip. Unable to do SBT due to very high settings 11/07: Remains hypoxemic and but able to wean FiO2 down to 80% with PEEP of 16. Remains unresponsive on sedation. Unable to trach due to his high vent settings and high FiO2. Remains on Cardizem and 15 mg per hour, with rate controlled a flutter. We'll start by mouth Cardizem in an attempt to wean IV Cardizem 11/08: Remains critically ill hypoxic but FiO2 now weaned to 60%, PEEP remains at 16. Very heavily sedated no withdrawal to pain. Will hold all continuos sedation. Sputum culture with Klebsiella sensitive to Rocephin. A flutter persistent, will start IV heparin 11/09 Patient is sedated with Diprivan and intubated, On Cardizem drip 15mg/hr for Aflutter. Heparin drip stated yesterday. 11/10 Patient remains sedated and intubated. On Heparin drip. Persistent fever with Tmax 102.5. ETT was replaced yesterday. 11/11 Patient was placed on Cardizem and amio drips overnight for Afib with RVR. Sedated with Diprivan and intubated. On Heparin drip. T;99.3 this morning. 11/12 Patient remains intubated and sedated with Diprivan. On Cardizem drip 15mg/ hr. Afebrile, Tmax 100.6 11/13 Patient is sedate with Diprivan and intubated. In Afib with RVR now on Amio drip. Tmax 100,4 11/14 Remains intubated sedated with propofol and fentanyl. Afib rate controlled , remains on amiodarone and Cardizem gtt. Fio2 remains high at 70%, PEEP 12. CXR persistent bibasilar infiltrates/effusion 11/15: Currently sedated with propofol and fentanyl drips. Currently in A. fib/ flutter on amiodarone drip and Cardizem drip. PEEP increased to 14. FiO2 65. 11/16: Tmax 100.1. Patient more alert and tachycardic this AM. Adding midazolam gtt for sedation and currently tolerating tube feeding. Positive BM. PEEP to 12. FiO2 75% 11/17: Afebrile. FiO2 down to 60%. PEEP set 12. Multiple tracheostomy hopefully on Saturday. Heart rate better control. 11/18: Afebrile. Discontinuing amiodarone drip today and switching to oral. FiO2 between 60 and 70%. Restarting epoprostenol in attempt to get FiO2 down to 50% for tracheostomy tomorrow 11/19 No events overnight. Sedated with Diprivan, Fentanyl and versed. Still requiring high O2 - on PRVC with PEEP;12 and FIO2 70%. Afebrile. 11/20 Patient remains sedated with Diprivan, versed, Fentanyl and intubated. On PRVC with PEEP: 12, FIO2 50% , sats 88-90%. On Heparin drip. 11/21: Tmax 99.4. Tolerating tube feeds. Remains on heparin drip. FiO2 down to 55%. PEEP of 10. Eyes open blinks spontaneously. Does squeeze and weakly on left side with encouragement 11/22: Intubated heavily sedated. FiO2 50%, remains on Flolan. PEEP 10. Bumex 1 mg 1 and Diamox 500 mg 1 IV. She will negative balance. Heparinized tube feeds on hold for tracheostomy today at 12. Remains in atrial flutter 11/23 Patient remains sedated with Diprivan, Fentanyl, Versed and intubated. On Heparin drip. For CT guided thoracentesis today. On APRV 11/24 Patient remains sedated and intubated. 20Fr CT placed yesterday for right sided PTX. Spiked fever with T 101.6. Remains on Heparin drip. 11/25 Patient remains intubated with Diprivan, fentanyl and intubated. On PRVC with PEEP: 10, FIO2 50%. Afebrile. 11/26 Patient is sedated with Diprivan, Fentanyl and intubated. Afebrile. On Heparin drip. On PRVC with PEEP: 10, FIO2 60% 11/27 Patient is scheduled for trach in OR today. Sedated and intubated. Heparin drip is off for trach. 11/28 Patient s/p trach yesterday. Sedated with Diprivan and Fentanyl. Afebrile. On PRVC with PEEP; 10 and FIO2 50% 11/29 No events overnight. Sedated and on ventilator via trach. For PEG tube placement today. Heparin drip on hold. 11/30: Currently afebrile. MAXIMUM TEMPERATURE 100. Positive BM via fecal containing device. Tube feeds on hold secondary to plan PEG tube placement today. Heparin drip on hold as well. 12/01: Status post PEG tube placement yesterday per IR. Heparin drip and tube feeds restarted today. Restarting insulin detemir. Awake and alert and weakly follows commands on sedation 12/02: Tmax 99.3. Tube feeds restarted and tolerating. Awake and alert and weakly follows commands. Plan for MRI brain/C-spine a.m. 12/03. 12/03: Patient is awake. Tolerating PRVC, very weakly wiggling cedric toes. MRI today 12/04/16: Tolerated CPAP with high settings yesterday for several hours 15 over 5. Becomes tachypneic and pressure support wean. MRI of the C-spine shows increased signal, no cord compression. Discussed with Dr. Riggins. He is requesting flexion extension films of C spine. 12/05/16: Desaturated on CPAP today. Now on full vent support with 50% FiO2. Continues to have functional quadriparesis. Dr Riggins reviewed MRI spine- he is not sure about increased signal in cord, but there could be cervical hyperextension injury, from intubation. 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 Cannot do cspine extension/flexion films. Repeat MRI c- spine in a few weeks 12/06/16: Patient remains on vent, placed on CPAP 11/29 now, on 50% FiO2. No improvement in neuro exam patient is awake. Able to minimally shrug shoulders. Continues to behave like functional quadriplegia 12/07/16: Tolerated CPAP approximately 6 hours yesterday but did not tolerate TPs. Having anxiety and some frustration due to neuromuscular weakness. I will add Lexapro. Give Bumex 1 mg x1, CXR shows pleural effusions. 12/08: On 11/29 PS since AM. CBC chest x-ray stable. Lexapro added yesterday for depression. Urine output 3.5 L in 24 hours 12/09: Tolerated CPAP well yesterday tolerated TPs for 2 hours but failed to CPAP today due to hypoxia and tachycardia. Currently on PRVC received metoprolol and fentanyl push with improved heart rate 12/10: Patient is tolerating CPAP today. Left popliteal fossa hematoma, large on left lower extremity ultrasound. Heparin and Coumadin placed on hold will get orthopedic consult 12/11: Slightly improved power of LE, unchanged on upper. L calf remains tense, but pulses are palpable. Holding anticoagulation 12/12: Tolerating CPAP 09/07. Slight improvement in muscle strength. Heparin remains on hold 12/13: Heparin remains on hold. No increase in hematoma clinically. Tolerating CPAP. Objective Vital Signs Date Time Temp Pulse Resp B/P (MAP) Pulse Ox O2 Delivery O2 Flow Rate FiO2 12/13/16 10:30 97 45 12/13/16 06:00 90 12/13/16 04:00 98.6 32 130/77 (94) Intake and Output 12/13/16 12/13/16 12/14/16 08:00 16:00 00:00 Intake Total 915 ml Output Total 1000 ml Balance -85 ml Result Diagram: 12/11/16 0440 12/12/16 0410 Imaging Last Impressions Gastrostomy Tube Placement 11/30/16 0000 Signed Impressions: Service Date/Time: Wednesday, November 30, 2016 12:22 - CONCLUSION: Uncomplicated gastrostomy tube placement as above. Jorge Jolly MD Chest X-Ray 11/30/16 Signed Impressions: Service Date/Time: Wednesday, November 30, 2016 03:55 - CONCLUSION: Progression in the bilateral pleural effusions and bibasilar pulmonary infiltrates. Fito Mar Jr., MD Abdomen X-Ray 11/30/16 Signed Impressions: Service Date/Time: Wednesday, November 30, 2016 09:43 - CONCLUSION: 1. No definite nasogastric catheter is identified. Repeat examination centered higher in the thorax may be performed for more definitive evaluation. Consider repositioning the nasogastric catheter prior to repeat imaging. Nico Vaughan MD Brain MRI 11/26/16 Signed Impressions: Service Date/Time: Saturday, November 26, 2016 19:52 - CONCLUSION: 1. Small focal signal abnormality in the superior medial left frontal lobe. This is nonspecific. This could be the sequela from prior insult such as a contusion or small infarct. An acute infarct is not seen. A small underlying lesion could have a similar appearance. One could perform a contrast-enhanced study to determine if there is any enhancement associated with this region. 2. There are a few scattered minimal punctate areas of demyelination seen not expected for the patient's age. 3. Sinus disease. Jayson Soto MD Lower Extremity Ultrasound 11/09/16 Signed Impressions: Service Date/Time: Wednesday, November 09, 2016 14:13 - CONCLUSION: Normal examination. Jayson Manning MD Liver Ultrasound 11/09/16 Signed Impressions: Service Date/Time: Wednesday, November 09, 2016 13:58 - CONCLUSION: Sono dense liver without duct dilatation. 4 mm common duct. Ward Kim MD FACR Chest CT 11/06/16 0000 Signed Impressions: Service Date/Time: Sunday, November 06, 2016 11:24 - CONCLUSION: 1. Dense bilateral posterior lower lobe airspace consolidation consistent with aspiration versus less likely pneumonia. 2. Linear consolidation in the right middle lobe consistent with atelectasis versus aspiration. 3. Trace left and small right pleural effusions. 4. Support lines and tubes in good position. 5. Prominent coronary artery calcifications. Nico Vaughan MD Head CT 11/05/16 0000 Signed Impressions: Service Date/Time: Saturday, November 05, 2016 21:43 - CONCLUSION: 1. No acute intracranial abnormalities. Pansinus fluid opacification. Cristofer De Santiago MD Carotid Artery Ultrasound 10/25/16 0000 Signed Impressions: Service Date/Time: September 08:27 - CONCLUSION: Mild to moderate plaque in both carotid systems with less than 40%% diameter stenosis by velocity criteria. Jhonathan Dietz MD CT Angiography 10/25/16 0000 Signed Impressions: Service Date/Time: September 06:12 - CONCLUSION: 1. Negative for pulmonary embolism. 2. There is a fairly large area of masslike consolidation in the medial right lung involving posterior segment right upper lobe and medial aspect of right lower lobe. There is associated right hilar and mediastinal adenopathy measuring up to 2.1 cm. Differential diagnosis includes pneumonia or underlying lung neoplasm. Close followup imaging recommended after treatment for pneumonia, to assess for underlying mass. Cristofer De Santiago MD Objective Remarks GENERAL: 56-year-old male, critically ill currently on PRVC via tracheostomy SKIN: Warm and dry. Positive intertrigo HEAD: Atraumatic. Normocephalic. EYES: Pupils equal and round about 3 mm bilaterally and reactive. No scleral icterus. No injection or drainage. ENT: No nasal bleeding or discharge. NECK: Trachea midline. No JVD. Tracheostomy site is clean dry and intact CARDIOVASCULAR: Tachycardia, IR. S1, S2 no S4. Diminished heart sounds. Without murmur, clicks, or rubs RESPIRATORY: Bilateral mild expiratory wheezes and coarse bilateral anterior rhonchi appreciated. GASTROINTESTINAL: Abdomen soft, obese. MUSCULOSKELETAL: Extremities with trace lower extremity bilateral edema. No obvious deformities. L calf is some what tense, but no evidence of compartment syndrome NEUROLOGICAL: Eyes are open. Positive gag. Weakly moves fingers and toes, but some improvement in overall strength. Shrugs shoulders Date of Insertion: Nov 16, 2016 Line: PICC Side: Left Location: Antecubital A/P Assessment and Plan Neuro/Psych: Functional quadriparesis CIM/SHEFALI s/p Neuromuscular paralysis for Prone therapy Agitated Delirium, Metabolic Encephalopathy Syncope Depression MRI C-spine showing increased signals C3-C5 region. Dr Riggins reviewed MRI spine- not sure about increased signal in cord, could be cervical hyperextension injury, from intubation according to him. Unable to do flexion- extension films of the C-spine (trached patient). Repeat MRI c-spine in a few weeks, probably next week. 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 On Fentanyl patch 50 g per hour. Continue liquid oxycodone 5 mg every 6 per tube. prn hydromorphone, fentanyl for breakthrough. Haloperidol 5mg iv q4h prn for agitation. Lexapro 10 mg qhs from 12/07/16. Titrate dose up in one week as tolerated MRI brain 11/26: Small focal signal abnormality in the superior medial left frontal lobe. Could be sequela from prior insult such as a contusion or small infarct. No acute infarct MRI brain 12/[address] on admission revealed no acute intracranial findings, CT brain 11/05- no acute findings. opacification of sinuses. EEG 11/20: No seizure activity. EEG 11/09: severe encephalopathy PT/OT for range of motion, up to stretcher chair as tolerated CV: Atrial fib/ flutter with RVR Hypertension, now intermittently hypotensive On Amiodarone 200mg Q12, Digoxin 0.125 mg daily(Dig. level 0.5 on 12/01). On PO diltiazem 90 mg PO q6hr, metoprolol 50mg Q6 DCd CLONIDINE 12/06/16 DUE TO INTERMITTENT HYPOTENSION Coumadin and heparin 12/10 held due to left popliteal fossa hematoma. Place on sq heparin for DVT prophylaxis Echo 10/25 EF 60-65%. Repeat echo with bubble study: 11/22: No shunt seen Bumex 1 mg IV x1 12/07 Resp: Acute, now chronic hypoxemic Respiratory failure s/p trach 11/27 Spontaneous Right sided PTX secondary to barotrauma COPD exacerbation Pneumonia most likely community-acquired Obesity hypoventilation syndrome Tobacco use disorder On PRVC FIO2 50%. SBT and TP as tolerated. TP for 2-4 hours as tolerated Albuterol/ipratropium aerosols every 4 hours of albuterol aerosols every 2 hours PRN. Ventilator bundle Budesonide 0.5 mg/2 mL aerosols twice a day. Prednisone 20 mg daily s/p trach 11/[address] Martin #[facility]. Pulmonary/Dr. White has followed s/p 20Fr CT placed for right PTX 11/23, monitor CT drainage. Leave CT in place until vent settings, hypoxia improved CT pulmonary angio revealed no pulmonary embolus. Masslike consolidation in the posterior right upper lobe and medial right lower lobe. Lymphadenopathy to 1 cm right hilum and subcarinal. Atelectasis left lower lobe. Discontinued Prone therapy 11/02/16. GI: Morbid Obesity Elevated LFT's- now within normal. PEG tube placement 11/30. US liver: No ductal dilatation Tube feeds Vital high protein 1.5 at 40ml/hr Famotidine 20 milligrams mg twice a day for GI prophylaxis /renal: Hyponatremia Monitor renal function, I/O's, electrolytes replacement per protocol. Endo: Hyperglycemia SSI Q6h with Regular Insulin mild protocol for glycemic control. Previously insulin detemir 62 units twice a day. Restarted 15 units twice a day 12/01. Adequate blood sugar control . Heme: Normocytic anemia Leukocytosis L popliteal fossa hematoma Monitor CBC, coags- Heparin/Coumadin on hold Monitor closely for compartment syndrome Place on sq Heparin 12/13 ID: Severe sepsis HAP Continue abx (piperacillin/tazobactam and sulfamethoxazole/trimethoprim 800/160 2 tablets 3 times a day) Sputum: Klebsiella, Stenotrophomonas and Pseudomonas 11/27 Sputum cx 11/23: Kleb, Pseudomonas, s/p (ceftriaxone and fluconazole course). ID is following-Dr. Patel s/p ceftriaxone 11/02-11/09 for Enterobacter pneumonia. Repeat sputum Klebsiella sensitive to Rocephin 10/29/16-Enterobacter in sputum, 11/06/16, 11/10 sputum- Klebsiella Urine Legionella and pneumococcal antigens negative and influenza negative C-diff PCR is negative Access RUE PICC placed 11/05 through 11/15 replaced 11/16 with left upper extremity PICC Prophylaxis GI, famotidine. DVT - IV heparin gtt, Coumadin DCd 12/10 due to left popliteal hematoma, start Heparin 5000 U q12 sq 11/09 Doppler US LE negative for DVT Palliative care is following Critical Care: Level 2 Roro Tyler MD Dec 13, 2016 10:51
[2016-12-13] MEDS: SODIUM CHLORIDE 1 GRAM TAB PO SCH ×2 (11:20→21:03)
[2016-12-13] MEDS: predniSONE 20 MG TAB PO SCH (11:20)
[2016-12-13] MEDS: DIGOXIN 0.125 MG TAB PO SCH (11:20)
[2016-12-13] MEDS: FAMOTIDINE 20 MG TAB NG SCH ×2 (11:20→21:03)
[2016-12-13] MEDS: AMIODARONE 200 MG TAB OG-TUBE SCH ×2 (11:20→21:03)
[2016-12-13] MEDS: LISINOPRIL 10 MG TAB PO SCH (11:20)
[2016-12-13] MEDS: ARTIFICIAL TEARS OPTH OINT 3.5 APPLIC/3.5 GM TUBO EACH EYE SCH ×2 (11:21→21:03)
[2016-12-13] MEDS: CHLORHEXIDINE 0.12% (ORAL KIT) 15 ML CUP MT SCH ×2 (11:22→21:02)
[2016-12-13] MEDS: REMOVE OLD FENTANYL PATCH T-DERMAL SCH (14:00)
[2016-12-13] MEDS: fentaNYL 50 MCG/HR PATCH T-DERMAL SCH (15:24)
[2016-12-13] MEDS: ESCITALOPRAM OXALATE 10 MG TAB PO SCH (21:04)
[2016-12-13] MEDS: HEPARIN SODIUM - SQ 10,000 UNITS/ML VIAL SQ SCH (21:04)
[2016-12-14] VITALS (35 sets, daily range): BP systolic 119–149; BP diastolic 68–101; PULSE 81–143; RESP 14–39; TEMP 97.3–98.2; O2SAT 73–100
[2016-12-14] MEDS: METOPROLOL TARTRATE 50 MG TAB PO SCH ×4 (00:25→17:33)
[2016-12-14] MEDS: DILTIAZEM HCL 90 MG TAB PO SCH ×4 (00:25→17:33)
[2016-12-14] MEDS: INSULIN NovoLIN REGULAR SUPPLEMENTAL SCALE SQ SCH ×4 (02:00→20:00)
[2016-12-14] MEDS: CHLORHEXIDINE GLUCONATE 2 % 1 PACK (2 CLOTHS) TOP SCH (04:00)
[2016-12-14] MEDS: oxyCODONE HCL ORAL CONC 5 MG/0.25 ML SYRINGE PEG SCH ×4 (04:35→22:27)
--- NOTE | 2016-12-14 06:14 | RADRPT ---
EXAM DATE/TIME: 12/14/2016 03:57 [facility] COMPARISON: CHEST SINGLE AP, December 07, 2016, 3:53. INDICATIONS : Respiratory failure MEDICAL HISTORY : Hypercholesterolemia. Hypertension. Chronic obstructive pulmonary disease. SURGICAL HISTORY : None. ENCOUNTER: Subsequent ACUITY: 2 months PAIN SCORE: Non-responsive. LOCATION: Bilateral chest FINDINGS: A single view of the chest demonstrates cardiomegaly and bibasilar airspace disease. Right-sided ches t tube without pneumothorax. Tracheostomy tube and left subclavian central line are stable. Osseous structures are intact. CONCLUSION: 1. Cardiomegaly and bibasilar airspace disease greater right lower lobe. Javier Ulloa MD on December 14, 2016 at 6:12 Board Certified Radiologist. This report was verified electronically.
[2016-12-14 06:38] LABS: BASOPHIL # 0.1 TH/MM3 (0-0.2); BASOPHIL % 0.5 % (0.0-2.0); EOSINOPHIL % 0.1 % (0.0-4.0); HEMATOCRIT 34.6 % (39.0-51.0); LYMPH % 9.4 % (9.0-44.0); MEAN CELL VOLUME 91.3 FL (80.0-100.0); MEAN CORPUSCULAR HEMOGLOBIN 30.6 PG (27.0-34.0); MEAN CORPUSCULAR HGB CONC 33.6 % (32.0-36.0); MONO % 5.6 % (0.0-8.0); NEUT % 84.4 % (16.0-70.0); PLATELET COUNT 338 TH/MM3 (150-450); RED BLOOD COUNT 3.79 MIL/MM3 (4.50-5.90); RED CELL DISTRIBUTION WIDTH 15.2 % (11.6-17.2); WHITE BLOOD COUNT 21.3 TH/MM3 (4.0-11.0)
[2016-12-14 06:44] LABS: APTT (PATIENT) 26.6 SEC (24.3-30.1); HEMO FLAGS AUTO DIFF
[2016-12-14 07:03] LABS: ALT (GPT) 88 U/L (12-78); ANION GAP 9 MEQ/L (5-15); AST (GOT) 36 U/L (15-37); BICARBONATE 29.5 MEQ/L (21.0-32.0); BLOOD UREA NITROGEN 22 MG/DL (7-18); CHLORIDE 90 MEQ/L (98-107); GLOMERULAR FILTRATION RATE 597 ML/MIN (>89); POTASSIUM 3.7 MEQ/L (3.5-5.1); SODIUM (NA) 128 MEQ/L (136-145)
[2016-12-14 07:06] LABS: ALKALINE PHOSPHATASE 137 U/L (45-117); TOTAL BILIRUBIN ADULT 0.9 MG/DL (0.2-1.0)
[2016-12-14] MEDS: CHLORHEXIDINE 0.12% (ORAL KIT) 15 ML CUP MT SCH ×2 (08:00→20:00)
[2016-12-14] MEDS: RESP: BUDESONIDE 0.5 MG/2 ML NEB NEB SCH ×2 (08:13→19:40)
[2016-12-14 08:35] LABS: BANDS 7 % (0-6); METAMYELOCYTES 4 % (0-1); MYELOCYTES 5 % (0-0); PLATELET ESTIMATE SMEAR NORMAL (NORMAL); PLATELET MORPHOLOGY NORMAL (NORMAL); POLYS (SEG NEUTROPHILS) 64 % (16-70); SCAN/DIFF FINAL DIFF MANUAL; WBC DIFF SAMPLE 100
[2016-12-14] MEDS: AMIODARONE 200 MG TAB OG-TUBE SCH ×2 (09:00→21:34)
[2016-12-14] MEDS: SODIUM CHLORIDE 0.9% FLUSH 10 ML FLUSH SCH ×2 (09:00→21:00)
[2016-12-14] MEDS: SODIUM CHLORIDE 0.9% FLUSH 10 ML FLUSH IVF SCH (09:00)
[2016-12-14] MEDS: SODIUM CHLORIDE 0.9% FLUSH 10 ML FLUSH IV FLUSH SCH (09:00)
[2016-12-14] MEDS: SODIUM CHLORIDE 1 GRAM TAB PO SCH ×2 (09:00→21:33)
[2016-12-14] MEDS: INSULIN DETEMIR 100 UNITS/ML VIAL SQ SCH ×2 (09:00→21:49)
[2016-12-14] MEDS: DIGOXIN 0.125 MG TAB PO SCH (09:13)
[2016-12-14] MEDS: FAMOTIDINE 20 MG TAB NG SCH ×2 (09:13→21:32)
[2016-12-14] MEDS: LISINOPRIL 10 MG TAB PO SCH (09:14)
[2016-12-14] MEDS: predniSONE 20 MG TAB PO SCH (09:14)
[2016-12-14] MEDS: HEPARIN SODIUM - SQ 10,000 UNITS/ML VIAL SQ SCH ×2 (09:14→21:34)
[2016-12-14] MEDS: ARTIFICIAL TEARS OPTH OINT 3.5 APPLIC/3.5 GM TUBO EACH EYE SCH ×2 (09:15→21:33)
--- NOTE | 2016-12-14 11:07 | RADRPT ---
EXAM DATE/TIME: 12/14/2016 10:22 [facility] COMPARISON: ABDOMEN KUB ONLY, October 29, 2016, 4:41. INDICATIONS : Nausea. MEDICAL HISTORY : Hypercholesterolemia. Hypertension Chronic obstructive pulmonary disease. SURGICAL HISTORY : None. ENCOUNTER: Subsequent ACUITY: 1 week PAIN SCORE: Non-responsive. LOCATION: Abdomen FINDINGS: Limited supine view of the abdomen. Air distention of the colon and regional small bowel loops in a p attern characteristic of a hypodynamic ileus. No obvious pneumoperitoneum but again, this is a limite d exam. CONCLUSION: Diffuse air distention of the colon and small bowel loops characteristic of a hypodynamic ileus. Jorge Jolly MD on December 14, 2016 at 11:04 Board Certified Radiologist. This report was verified electronically.
[2016-12-14] MEDS: METOCLOPRAMIDE HCL 10 MG/2 ML VIAL IV SCH ×2 (14:30→21:34)
--- NOTE | 2016-12-14 14:47 | HHI.PR ---
Addendum to Inpatient Note Additional Information pt seen around 1430 full note to follow Mariana Patel MD Dec 14, 2016 14:47
--- NOTE | 2016-12-14 14:56 | HHI.CCPN ---
Subjective Remarks/Hospital Course 56-year-old very pleasant gentleman with past medical history of COPD, and hypertension presents complaining of shortness of breath and nausea, generalized fatigue and chills for 2 days. He thinks it has been from being out in the heat. Denies any fever, chest pain, vomiting, abdominal pain, focal weakness or numbness. In the emergency department his saturation was in mid 80s on arrival with auditory wheezing and tachypnea. He was placed on 4 liters of NC and saturating in the low 90. He does not use oxygen at home. He also mentioned 2 days ago, he came home and was sitting in a chair and was taking his shoes off when he passed out. States he woke up and was still on the chair. This has never happen before. 10/25: Patient intubated secondary to increasing oxygen requirements, altered mental status. Discussed with son. Somewhat hypertensive post intubation. 10/26: Placed on rotaprone bed last evening. Flolan initiated. Saturations improved. Afebrile. Remains on Nimbex drip. 10/27: T max 99.7. Tolerated on not prone position 2 hours yesterday. Tolerating trickle feeds. FiO2 down to 55% 10/28: Tmax 99.9. When unprone for chest x-ray this a.m. desaturated. Currently on 90% FiO2. Actually hypertensive. No bowel movements. Remains paralyzed 10/29: Remains intubated sedated on continuous Prone therapy Except for chest x- ray. Fever 100.8. Panculture requested. Zyvox added. Continue IV sedation with propofol and fentanyl and Versed, neuromuscular paralysis with Nimbex 10/30: Prone cycle changed to 8 hr prone, 1 hr supine from 10/29. Due to hypoxia will continue with same cycle today. Chest x-ray remains unchanged. Patient remains severely hypoxemic FiO2 at 75% PEEP at 16. WBC count worsened to 18. Remains neuromuscularly paralyzed. 10/31: Patient remains critically ill but stable. Oxygen saturation 95% on 55 of FiO2 and PEEP of 16. Reduce PEEP to 14, FiO2 to 50% and start weaning Flolan. Increase supine time to 4 hours, reduce Prone time to 6 hours 11/01: Patient remains intubated sedated critically ill on neuromuscular paralysis. FiO2 reduced to 50, I will attempt PEEP wean gradually to 12 today. Prone/supine cycles will be changed to 6 hours each 11/02: FiO2 remains at 50%, PEEP reduced from 14 to 12 today, TV increased to 600 and RR to 20, in anticipation of discontinuing prone therapy, which will be DCd today. Off Flolan for 2 days 11/03: off pronation. fio2 up to 65% , peep 12. agitation causing desaturation. minimal improvements. 11/04: good diuresis yesterday, but despite that, fio2 persists at 65% and spo2 decreasing to 91% today. no real improvements and some worsening of pulmonary function despite ongoing aggressive therapies. still not safe for SBT given hypoxia. also severely hypertensive this morning. 11/05: continues to diurese well and Cr still at baseline. fio2 at 90% however, and no clinical improvements in mental status or hypoxia. still unsafe for SBT given hypoxemia. off pathway. hypertension under much better control. poor neuro status is concerning. 11/06: Remains severely hypoxemic. FiO2 was 100% PEEP 14. I reduce FiO2 to 90% after increasing PEEP to 16. Developed a flutter with RVR overnight, currently on Cardizem drip. Unable to do SBT due to very high settings 11/07: Remains hypoxemic and but able to wean FiO2 down to 80% with PEEP of 16. Remains unresponsive on sedation. Unable to trach due to his high vent settings and high FiO2. Remains on Cardizem and 15 mg per hour, with rate controlled a flutter. We'll start by mouth Cardizem in an attempt to wean IV Cardizem 11/08: Remains critically ill hypoxic but FiO2 now weaned to 60%, PEEP remains at 16. Very heavily sedated no withdrawal to pain. Will hold all continuos sedation. Sputum culture with Klebsiella sensitive to Rocephin. A flutter persistent, will start IV heparin 11/09 Patient is sedated with Diprivan and intubated, On Cardizem drip 15mg/hr for Aflutter. Heparin drip stated yesterday. 11/10 Patient remains sedated and intubated. On Heparin drip. Persistent fever with Tmax 102.5. ETT was replaced yesterday. 11/11 Patient was placed on Cardizem and amio drips overnight for Afib with RVR. Sedated with Diprivan and intubated. On Heparin drip. T;99.3 this morning. 11/12 Patient remains intubated and sedated with Diprivan. On Cardizem drip 15mg/ hr. Afebrile, Tmax 100.6 11/13 Patient is sedate with Diprivan and intubated. In Afib with RVR now on Amio drip. Tmax 100,4 11/14 Remains intubated sedated with propofol and fentanyl. Afib rate controlled , remains on amiodarone and Cardizem gtt. Fio2 remains high at 70%, PEEP 12. CXR persistent bibasilar infiltrates/effusion 11/15: Currently sedated with propofol and fentanyl drips. Currently in A. fib/ flutter on amiodarone drip and Cardizem drip. PEEP increased to 14. FiO2 65. 11/16: Tmax 100.1. Patient more alert and tachycardic this AM. Adding midazolam gtt for sedation and currently tolerating tube feeding. Positive BM. PEEP to 12. FiO2 75% 11/17: Afebrile. FiO2 down to 60%. PEEP set 12. Multiple tracheostomy hopefully on Saturday. Heart rate better control. 11/18: Afebrile. Discontinuing amiodarone drip today and switching to oral. FiO2 between 60 and 70%. Restarting epoprostenol in attempt to get FiO2 down to 50% for tracheostomy tomorrow 11/19 No events overnight. Sedated with Diprivan, Fentanyl and versed. Still requiring high O2 - on PRVC with PEEP;12 and FIO2 70%. Afebrile. 11/20 Patient remains sedated with Diprivan, versed, Fentanyl and intubated. On PRVC with PEEP: 12, FIO2 50% , sats 88-90%. On Heparin drip. 11/21: Tmax 99.4. Tolerating tube feeds. Remains on heparin drip. FiO2 down to 55%. PEEP of 10. Eyes open blinks spontaneously. Does squeeze and weakly on left side with encouragement 11/22: Intubated heavily sedated. FiO2 50%, remains on Flolan. PEEP 10. Bumex 1 mg 1 and Diamox 500 mg 1 IV. She will negative balance. Heparinized tube feeds on hold for tracheostomy today at 12. Remains in atrial flutter 11/23 Patient remains sedated with Diprivan, Fentanyl, Versed and intubated. On Heparin drip. For CT guided thoracentesis today. On APRV 11/24 Patient remains sedated and intubated. 20Fr CT placed yesterday for right sided PTX. Spiked fever with T 101.6. Remains on Heparin drip. 11/25 Patient remains intubated with Diprivan, fentanyl and intubated. On PRVC with PEEP: 10, FIO2 50%. Afebrile. 11/26 Patient is sedated with Diprivan, Fentanyl and intubated. Afebrile. On Heparin drip. On PRVC with PEEP: 10, FIO2 60% 11/27 Patient is scheduled for trach in OR today. Sedated and intubated. Heparin drip is off for trach. 11/28 Patient s/p trach yesterday. Sedated with Diprivan and Fentanyl. Afebrile. On PRVC with PEEP; 10 and FIO2 50% 11/29 No events overnight. Sedated and on ventilator via trach. For PEG tube placement today. Heparin drip on hold. 11/30: Currently afebrile. MAXIMUM TEMPERATURE 100. Positive BM via fecal containing device. Tube feeds on hold secondary to plan PEG tube placement today. Heparin drip on hold as well. 12/01: Status post PEG tube placement yesterday per IR. Heparin drip and tube feeds restarted today. Restarting insulin detemir. Awake and alert and weakly follows commands on sedation 12/02: Tmax 99.3. Tube feeds restarted and tolerating. Awake and alert and weakly follows commands. Plan for MRI brain/C-spine a.m. 12/03. 12/03: Patient is awake. Tolerating PRVC, very weakly wiggling cedric toes. MRI today 12/04/16: Tolerated CPAP with high settings yesterday for several hours 15 over 5. Becomes tachypneic and pressure support wean. MRI of the C-spine shows increased signal, no cord compression. Discussed with Dr. Riggins. He is requesting flexion extension films of C spine. 12/05/16: Desaturated on CPAP today. Now on full vent support with 50% FiO2. Continues to have functional quadriparesis. Dr Riggins reviewed MRI spine- he is not sure about increased signal in cord, but there could be cervical hyperextension injury, from intubation. 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 Cannot do cspine extension/flexion films. Repeat MRI c- spine in a few weeks 12/06/16: Patient remains on vent, placed on CPAP 11/29 now, on 50% FiO2. No improvement in neuro exam patient is awake. Able to minimally shrug shoulders. Continues to behave like functional quadriplegia 12/07/16: Tolerated CPAP approximately 6 hours yesterday but did not tolerate TPs. Having anxiety and some frustration due to neuromuscular weakness. I will add Lexapro. Give Bumex 1 mg x1, CXR shows pleural effusions. 12/08: On 11/29 PS since AM. CBC chest x-ray stable. Lexapro added yesterday for depression. Urine output 3.5 L in 24 hours 12/09: Tolerated CPAP well yesterday tolerated TPs for 2 hours but failed to CPAP today due to hypoxia and tachycardia. Currently on PRVC received metoprolol and fentanyl push with improved heart rate 12/10: Patient is tolerating CPAP today. Left popliteal fossa hematoma, large on left lower extremity ultrasound. Heparin and Coumadin placed on hold will get orthopedic consult 12/11: Slightly improved power of LE, unchanged on upper. L calf remains tense, but pulses are palpable. Holding anticoagulation 12/12: Tolerating CPAP 09/07. Slight improvement in muscle strength. Heparin remains on hold 12/13: Heparin remains on hold. No increase in hematoma clinically. Tolerating CPAP. 12/14: Patient complains of not feeling well today. Wbc count increased to 21, 000. KUB shows ileus. Hold tube feeds, Reglan 10 mg IV every 8 hours, send panculture Objective Vital Signs Date Time Temp Pulse Resp B/P (MAP) Pulse Ox O2 Delivery O2 Flow Rate FiO2 12/14/16 13:30 99 18 124/68 (86) 92 12/14/16 12:27 45 12/14/16 04:00 97.3 12/13/16 10:40 T-piece 7.00 Intake and Output 12/14/16 12/14/16 12/15/16 08:00 16:00 00:00 Intake Total 1289 ml Output Total 350 ml Balance 939 ml Result Diagram: 12/14/1661012/14/16614 Imaging Last Impressions Gastrostomy Tube Placement 11/30/16 Signed Impressions: Service Date/Time: Wednesday, November 30, 2016 12:22 - CONCLUSION: Uncomplicated gastrostomy tube placement as above. Jorge Jolly MD Chest X-Ray 11/30/16 Signed Impressions: Service Date/Time: Wednesday, November 30, 2016 03:55 - CONCLUSION: Progression in the bilateral pleural effusions and bibasilar pulmonary infiltrates. Fito Mar Jr., MD Abdomen X-Ray 11/30/16 Signed Impressions: Service Date/Time: Wednesday, November 30, 2016 09:43 - CONCLUSION: 1. No definite nasogastric catheter is identified. Repeat examination centered higher in the thorax may be performed for more definitive evaluation. Consider repositioning the nasogastric catheter prior to repeat imaging. Nico Vaughan MD Brain MRI 11/26/16 Signed Impressions: Service Date/Time: Saturday, November 26, 2016 19:52 - CONCLUSION: 1. Small focal signal abnormality in the superior medial left frontal lobe. This is nonspecific. This could be the sequela from prior insult such as a contusion or small infarct. An acute infarct is not seen. A small underlying lesion could have a similar appearance. One could perform a contrast-enhanced study to determine if there is any enhancement associated with this region. 2. There are a few scattered minimal punctate areas of demyelination seen not expected for the patient's age. 3. Sinus disease. Jayson Soto MD Lower Extremity Ultrasound 11/09/16 Signed Impressions: Service Date/Time: Wednesday, November 09, 2016 14:13 - CONCLUSION: Normal examination. Jayson Manning MD Liver Ultrasound 11/09/16 Signed Impressions: Service Date/Time: Wednesday, November 09, 2016 13:58 - CONCLUSION: Sono dense liver without duct dilatation. 4 mm common duct. Ward Kim MD FACR Chest CT 11/06/16 Signed Impressions: Service Date/Time: Sunday, November 06, 2016 11:24 - CONCLUSION: 1. Dense bilateral posterior lower lobe airspace consolidation consistent with aspiration versus less likely pneumonia. 2. Linear consolidation in the right middle lobe consistent with atelectasis versus aspiration. 3. Trace left and small right pleural effusions. 4. Support lines and tubes in good position. 5. Prominent coronary artery calcifications. Nico Vaughan MD Head CT 11/05/16 0000 Signed Impressions: Service Date/Time: Saturday, November 05, 2016 21:43 - CONCLUSION: 1. No acute intracranial abnormalities. Pansinus fluid opacification. Cristofer De Santiago MD Carotid Artery Ultrasound 10/25/16 0000 Signed Impressions: Service Date/Time: September 08:27 - CONCLUSION: Mild to moderate plaque in both carotid systems with less than 40%% diameter stenosis by velocity criteria. Jhonathan Dietz MD CT Angiography 10/25/16 0000 Signed Impressions: Service Date/Time: September 06:12 - CONCLUSION: 1. Negative for pulmonary embolism. 2. There is a fairly large area of masslike consolidation in the medial right lung involving posterior segment right upper lobe and medial aspect of right lower lobe. There is associated right hilar and mediastinal adenopathy measuring up to 2.1 cm. Differential diagnosis includes pneumonia or underlying lung neoplasm. Close followup imaging recommended after treatment for pneumonia, to assess for underlying mass. Cristofer De Santiago MD Objective Remarks GENERAL: 56-year-old male, critically ill currently on PRVC via tracheostomy SKIN: Warm and dry. Positive intertrigo HEAD: Atraumatic. Normocephalic. EYES: Pupils equal and round about 3 mm bilaterally and reactive. No scleral icterus. No injection or drainage. ENT: No nasal bleeding or discharge. NECK: Trachea midline. No JVD. Tracheostomy site is clean dry and intact CARDIOVASCULAR: Tachycardia, IR. S1, S2 no S4. Diminished heart sounds. Without murmur, clicks, or rubs RESPIRATORY: Bilateral mild expiratory wheezes and coarse bilateral anterior rhonchi appreciated. GASTROINTESTINAL: Abdomen soft, obese, distended. MUSCULOSKELETAL: Extremities with trace lower extremity bilateral edema. No obvious deformities. Left calf is some what tense, but no evidence of compartment syndrome NEUROLOGICAL: Eyes are open. Positive gag. Moves fingers and toes, but some improvement in overall strength. Shrugs shoulders Date of Insertion: Nov 16, 2016 Line: PICC Side: Left Location: Antecubital A/P Assessment and Plan Neuro/Psych: Functional quadriparesis CIM/SHEFALI s/p Neuromuscular paralysis for Prone therapy Agitated Delirium, Metabolic Encephalopathy Syncope Depression MRI C-spine showing increased signals C3-C5 region. Dr Riggins reviewed MRI spine- not sure about increased signal in cord, could be cervical hyperextension injury, from intubation according to him. Unable to do flexion- extension films of the C-spine (trached patient). Repeat MRI c-spine probably next week. 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 On Fentanyl patch 50 g per hour. Continue liquid oxycodone 5 mg every 6 per tube. prn hydromorphone, fentanyl for breakthrough. Haloperidol 5mg iv q4h prn for agitation. Lexapro 10 mg qhs from 12/07/16. Titrate dose up in one week as tolerated MRI brain 11/26: Small focal signal abnormality in the superior medial left frontal lobe. Could be sequela from prior insult such as a contusion or small infarct. No acute infarct MRI brain 12/[address] on admission revealed no acute intracranial findings, CT brain 11/05- no acute findings. opacification of sinuses. EEG 11/20: No seizure activity. EEG 11/09: severe encephalopathy PT/OT for range of motion, up to stretcher chair as tolerated CV: Atrial fib/ flutter with RVR Hypertension, now intermittently hypotensive On Amiodarone 200mg Q12, Digoxin 0.125 mg daily(Dig. level 0.5 on 12/01). On PO diltiazem 90 mg PO q6hr, metoprolol 50mg Q6 DCd CLONIDINE 12/06/16 DUE TO INTERMITTENT HYPOTENSION Coumadin and heparin 12/10 held due to left popliteal fossa hematoma. Place on sq heparin for DVT prophylaxis Echo 10/25 EF 60-65%. Repeat echo with bubble study: 11/22: No shunt seen Bumex 1 mg IV x1 12/07 Resp: Acute, now chronic hypoxemic Respiratory failure s/p trach 11/27 Spontaneous Right sided PTX secondary to barotrauma COPD exacerbation Pneumonia most likely community-acquired Obesity hypoventilation syndrome Tobacco use disorder On PRVC FIO2 50%. SBT and TP as tolerated. TP for 2-4 hours as tolerated Albuterol/ipratropium aerosols every 4 hours of albuterol aerosols every 2 hours PRN. Ventilator bundle Budesonide 0.5 mg/2 mL aerosols twice a day. Prednisone 20 mg daily s/p trach 11/[address] Martin #[facility]. Pulmonary/Dr. Wynne has followed s/p 20Fr CT placed for right PTX 11/23, monitor CT drainage. Leave CT in place until vent settings, hypoxia improved CT pulmonary angio revealed no pulmonary embolus. Masslike consolidation in the posterior right upper lobe and medial right lower lobe. Lymphadenopathy to 1 cm right hilum and subcarinal. Atelectasis left lower lobe. Discontinued Prone therapy 11/02/16. GI: Ileus Morbid Obesity Elevated LFT's- now within normal. PEG tube placement 11/30. US liver: No ductal dilatation Tube feeds Vital high protein 1.5 at 40ml/hr-hold 12/14 due to ileus Start Reglan IV. GI reconsulted Famotidine 20 milligrams mg twice a day for GI prophylaxis /renal: Hyponatremia Monitor renal function, I/O's, electrolytes replacement per protocol. Endo: Hyperglycemia SSI Q6h with Regular Insulin mild protocol for glycemic control. Previously insulin detemir 62 units twice a day. Restarted 15 units twice a day 12/01. Adequate blood sugar control . Heme: Normocytic anemia Leukocytosis L popliteal fossa hematoma Monitor CBC, coags- Heparin/Coumadin on hold Monitor closely for compartment syndrome Place on sq Heparin 12/13 ID: Severe sepsis HAP Worsening leukocytosis ABX completed 12/11. (piperacillin/tazobactam and sulfamethoxazole/ trimethoprim 800/160 2 tablets 3 times a day) ID reconsult, ríos culture Sputum: Klebsiella, Stenotrophomonas and Pseudomonas 11/27 Sputum cx 11/23: Kleb, Pseudomonas, s/p (ceftriaxone and fluconazole course). ID is following-Dr. Patel s/p ceftriaxone 11/02-11/09 for Enterobacter pneumonia. Repeat sputum Klebsiella sensitive to Rocephin 10/29/16-Enterobacter in sputum, 11/06/16, 11/10 sputum- Klebsiella Urine Legionella and pneumococcal antigens negative and influenza negative C-diff PCR is negative Access RUE PICC placed 11/05 through 11/15 replaced 11/16 with left upper extremity PICC Prophylaxis GI, famotidine. DVT - IV heparin gtt, Coumadin DCd 12/10 due to left popliteal hematoma, start Heparin 5000 U q12 sq 11/09 Doppler US LE negative for DVT Palliative care is following Critical Care: Level 3 Roro Tyler MD Dec 14, 2016 14:56
--- NOTE | 2016-12-14 15:28 | HHI.GIFU ---
Subjective Remarks Reconsulted for ileus with bloating, nausea, vomiting, abdominal pain. Pt is on cpap. Lethargic, but follows commands and is able to communicate with simple yes/no questions. C/O nausea. C/O abdominal pain. + BM. (Anne-Marie Montiel) Objective Vitals I&O Vital Signs Date Time Temp Pulse Resp B/P (MAP) Pulse Ox O2 Delivery O2 Flow Rate FiO2 12/14/16 13:30 99 18 124/68 (86) 92 12/14/16 13:00 100 19 133/79 (97) 73 12/14/16 12:30 97 39 126/79 (95) 95 12/14/16 12:27 100 45 12/14/16 12:00 102 16 121/81 (94) 94 12/14/16 11:30 104 16 119/83 (95) 91 12/14/16 11:00 106 14 127/77 (94) 90 12/14/16 10:30 101 17 126/78 (94) 86 12/14/16 10:00 133 17 126/78 (94) 92 12/14/16 09:50 143 16 149/99 (116) 97 12/14/16 09:30 139 15 143/101 (115) 95 12/14/16 09:00 126 15 148/93 (111) 95 12/14/16 08:30 136 18 131/81 (98) 94 12/14/16 08:14 45 12/14/16 08:14 100 45 12/14/16 08:00 138 16 140/95 (110) 94 12/14/16 06:06 16 12/14/16 06:00 137 12/14/16 04:00 45 12/14/16 04:00 97.3 103 16 133/88 (103) 95 12/14/16 04:00 103 12/14/16 03:32 93 45 12/14/16 02:24 97.7 81 18 124/76 (92) 94 12/14/16 02:24 45 12/14/16 00:12 94 45 12/13/16 22:00 79 12/13/16 20:00 99.5 91 20 112/63 (79) 96 12/13/16 20:00 91 12/13/16 20:00 45 12/13/16 19:58 94 45 12/13/16 18:30 91 12/13/16 18:00 93 12/13/16 17:01 96 45 12/13/16 16:00 89 12/13/16 16:00 45 12/13/16 16:00 89 13 132/78 (96) 94 12/13/16 15:30 126 13 137/85 (102) 97 12/13/16 15:30 126 I/O 12/13/16 12/13/16 12/13/16 12/14/16 12/14/16 12/14/16 07:00 15:00 23:00 07:00 15:00 23:00 Intake Total 915 ml 500 ml 1289 ml Output Total 1000 ml 1125 ml 350 ml Balance -85 ml -625 ml 939 ml Tube Feeding 915 ml 500 ml 1289 ml Output Urine Total 1000 ml 1100 ml 350 ml Chest Tube Drainage Total 0 ml 25 ml 0 ml # Bowel Movements 1 Laboratory Laboratory Tests Test 12/14/16 06:11 12/14/16 06:15 White Blood Count 21.3 Red Blood Count 3.79 Hemoglobin 11.6 Hematocrit 34.6 Mean Corpuscular Volume 91.3 Mean Corpuscular Hemoglobin 30.6 Mean Corpuscular Hemoglobin Concent 33.6 Red Cell Distribution Width 15.2 Platelet Count 338 Mean Platelet Volume 6.7 Neutrophils (%) (Auto) 84.4 Lymphocytes (%) (Auto) 9.4 Monocytes (%) (Auto) 5.6 Eosinophils (%) (Auto) 0.1 Basophils (%) (Auto) 0.5 Neutrophils # (Auto) 18.0 Lymphocytes # (Auto) 2.0 Monocytes # (Auto) 1.2 Eosinophils # (Auto) 0.0 Basophils # (Auto) 0.1 CBC Comment AUTO DIFF Differential Total Cells Counted 100 Neutrophils % (Manual) 64 Band Neutrophils % 7 Lymphocytes % 17 Monocytes % 3 Neutrophils # (Manual) 17.0 Metamyelocytes 4 Myelocytes 5 Differential Comment FINAL DIFF MANUAL Platelet Estimate NORMAL Platelet Morphology Comment NORMAL Red Cell Morphology Comment NORMAL Activated Partial Thromboplast Time 26.6 Blood Urea Nitrogen 22 Creatinine 0.17 Random Glucose 121 Total Protein 6.5 Albumin 2.8 Calcium Level 9.3 Magnesium Level 2.0 Alkaline Phosphatase 137 Aspartate Amino Transf (AST/SGOT) 36 Alanine Aminotransferase (ALT/SGPT) 88 Total Bilirubin 0.9 Sodium Level 128 Potassium Level 3.7 Chloride Level 90 Carbon Dioxide Level 29.5 Anion Gap 9 Estimat Glomerular Filtration Rate 597 Date/Time Source Procedure Growth Status 12/07/16 18:52 Blood Peripheral Aerobic Blood Culture - Final NO GROWTH IN 5 DAYS Complete 12/07/16 18:52 Blood Peripheral Anaerobic Blood Culture - Final QNS - SEE AEROBE REPORT Complete 11/08/16 14:15 Stool Stool Stool Occult Blood (TYLER) - Final HEMOCCULT NEGATIVE Complete 11/27/16 09:55 Sputum Endotracheal Gram Stain - Final Complete 11/27/16 09:55 Sputum Culture - Final Klebsiella Pneumoniae Stenotrophomonas Maltophilia Pseudomonas Aeruginosa Complete 11/11/16 01:15 Urine Catheterized Urine Urine Culture - Final Ana Albicans Complete Imaging Last Impressions Chest X-Ray 12/14/16 0600 Signed Impressions: Service Date/Time: Wednesday, December 14, 2016 03:57 - CONCLUSION: 1. Cardiomegaly and bibasilar airspace disease greater right lower lobe. Javier Ulloa MD Abdomen X-Ray 12/14/16 0000 Signed Impressions: Service Date/Time: Wednesday, December 14, 2016 10:22 - CONCLUSION: Diffuse air distention of the colon and small bowel loops characteristic of a hypodynamic ileus. Jorge Jolly MD Lower Extremity Ultrasound 12/09/16 0000 Signed Impressions: Service Date/Time: Friday, December 09, 2016 17:13 - CONCLUSION: 1. No evidence of DVT 2. Large complex mass in the pump to fossa characteristic of a hematoma. Joni Barfield MD Cervical Spine MRI 12/03/16 0000 Signed Impressions: Service Date/Time: Saturday, December 03, 2016 13:13 - CONCLUSION: Severely limited exam. I believe there is increased signal in the cervical cord mid C3 to mid C5. Ward Kim MD FACR Brain MRI 12/03/16 0000 Signed Impressions: Service Date/Time: Saturday, December 03, 2016 13:13 - CONCLUSION: 1. There is a small area of abnormal T2 signal in the left frontal cortex this is unchanged from the previous examination dated 11/26/16. This is nonspecific in appearance on the MRI. Differential considerations would be a small area of gliosis versus an old area of contusion. Follow up examination in 6 months to document stability would be warranted. 2. No findings to indicate acute cortical infarction are identified. Román Kim MD Gastrostomy Tube Placement 11/30/16 Signed Impressions: Service Date/Time: Wednesday, November 30, 2016 12:22 - CONCLUSION: Uncomplicated gastrostomy tube placement as above. Jorge Jolly MD Liver Ultrasound 11/09/16 Signed Impressions: Service Date/Time: Wednesday, November 09, 2016 13:58 - CONCLUSION: Sono dense liver without duct dilatation. 4 mm common duct. Ward Kim MD FACR Chest CT 11/06/16 Signed Impressions: Service Date/Time: Sunday, November 06, 2016 11:24 - CONCLUSION: 1. Dense bilateral posterior lower lobe airspace consolidation consistent with aspiration versus less likely pneumonia. 2. Linear consolidation in the right middle lobe consistent with atelectasis versus aspiration. 3. Trace left and small right pleural effusions. 4. Support lines and tubes in good position. 5. Prominent coronary artery calcifications. Nico Vaughan MD Head CT 11/05/16 Signed Impressions: Service Date/Time: Saturday, November 05, 2016 21:43 - CONCLUSION: 1. No acute intracranial abnormalities. Pansinus fluid opacification. Cristofer De Santiago MD Carotid Artery Ultrasound 10/25/16 Signed Impressions: Service Date/Time: September 08:27 - CONCLUSION: Mild to moderate plaque in both carotid systems with less than 40%% diameter stenosis by velocity criteria. Jhonathan Dietz MD CT Angiography 10/25/16 Signed Impressions: Service Date/Time: September 06:12 - CONCLUSION: 1. Negative for pulmonary embolism. 2. There is a fairly large area of masslike consolidation in the medial right lung involving posterior segment right upper lobe and medial aspect of right lower lobe. There is associated right hilar and mediastinal adenopathy measuring up to 2.1 cm. Differential diagnosis includes pneumonia or underlying lung neoplasm. Close followup imaging recommended after treatment for pneumonia, to assess for underlying mass. Cristofer De Santiago MD Physical Exam HEENT: Normocephalic; atraumatic; no jaundice. CHEST: Tracheostomy to CPAP. Course breath sounds. CARDIAC: Irregular, Aflutter on monitor ABDOMEN: Soft, obese, distended, mild diffuse tenderness, bowel sounds hypoactive EXTREMITIES: Generalized edema. BREED TO [employer]CH[employer]ICIAN: Lethargic, awake, follows commands (Anne-Marie Montiel) Assessment and Plan Plan ASSESSMENT - Ileus. KUB (12/14/16)---> Diffuse air distention of the colon and small bowel loops characteristic of a hypodynamic ileus. He has associated nausea, abdominal pain, bloating. Will place G-tube to LIWS, NPO for today, SSE x 2. He was started on Reglan. KUB in am. - Dysphagia. S/P EGD (11/29/16)---> 1. Normal stomach mild esophagitis no transillumination or indentation seen-peg could not be placed endoscopically 2. Retroflexed views revealed a hiatal hernia. S/P G tube placement by IR (11/30/16). - Elevated LFTs, improved. Today with T. Bili 2.0, AST 36, ALT 88, Alk PHosph 137. - Respiratory failure/ARDS/COPD/PNA. S/P tracheostomy, on CPAP. Prednisone, Nebs. - Sepsis/Leukocytosis. Sputum with Klebsiella pneumoniae, stenotrophomonas maltiophilia, PSAE. BCx (12/07) negative. WBC 21.3, repeat cultures pending. - Atrial fibrillation/flutter. Currently in Aflutter, Rate 101. Amiodarone. BB. Heparin, digoxin - HTN, per attending. PLAN - G tube to LIWS - Cont. Reglan - SSE x 2 - KUB in am - Supportive care - Further recommendations to follow based on results of above - This pt seen by myself and Dr Mota and this note is written on his behalf (Anne-Marie Montiel) Physician Comments Patient seen and examined Agree with above Continue with current supportive care Monitor labs I would give a gallon of GoLYTELY through his PEG brother then soapsuds enemas at this point Further recommendations shall depend on his hospital course (Oscar Mota MD) Anne-Marie Montiel Dec 14, 2016 15:28 Oscar Mota MD Dec 14, 2016 20:33
--- NOTE | 2016-12-14 16:46 | HHI.IDPN ---
Subjective Subjective Remarks no fever tolerating CPAP, co abd pain TF on hold developped significant leukocytosis up to 21 K Antibiotics none Allergies: Coded Allergies: No Known Allergies (Unverified , 10/25/16) Objective . Vital Signs Date Time Temp Pulse Resp B/P (MAP) Pulse Ox O2 Delivery O2 Flow Rate FiO2 12/14/16 15:45 95 45 12/14/16 13:30 99 18 124/68 (86) 92 12/14/16 13:00 100 19 133/79 (97) 73 12/14/16 12:30 97 39 126/79 (95) 95 12/14/16 12:27 100 45 12/14/16 12:00 102 16 121/81 (94) 94 12/14/16 11:30 104 16 119/83 (95) 91 12/14/16 11:00 106 14 127/77 (94) 90 12/14/16 10:30 101 17 126/78 (94) 86 12/14/16 10:00 133 17 126/78 (94) 92 12/14/16 09:50 143 16 149/99 (116) 97 12/14/16 09:30 139 15 143/101 (115) 95 12/14/16 09:00 126 15 148/93 (111) 95 12/14/16 08:30 136 18 131/81 (98) 94 12/14/16 08:14 45 12/14/16 08:14 100 45 12/14/16 08:00 45 12/14/16 08:00 138 16 140/95 (110) 94 12/14/16 06:06 16 12/14/16 06:00 137 12/14/16 04:00 45 12/14/16 04:00 97.3 103 16 133/88 (103) 95 12/14/16 04:00 103 12/14/16 03:32 93 45 12/14/16 02:24 97.7 81 18 124/76 (92) 94 12/14/16 02:24 45 12/14/16 00:12 94 45 12/13/16 22:00 79 12/13/16 20:00 99.5 91 20 112/63 (79) 96 12/13/16 20:00 91 12/13/16 20:00 45 12/13/16 19:58 94 45 12/13/16 18:30 91 12/13/16 18:00 93 12/13/16 17:01 96 45 . Laboratory Tests Test 12/14/16 06:11 White Blood Count 21.3 TH/MM3 Red Blood Count 3.79 MIL/MM3 Hemoglobin 11.6 GM/DL Hematocrit 34.6 % Mean Corpuscular Volume 91.3 FL Mean Corpuscular Hemoglobin 30.6 PG Mean Corpuscular Hemoglobin Concent 33.6 % Red Cell Distribution Width 15.2 % Platelet Count 338 TH/MM3 Mean Platelet Volume 6.7 FL Neutrophils (%) (Auto) 84.4 % Lymphocytes (%) (Auto) 9.4 % Monocytes (%) (Auto) 5.6 % Eosinophils (%) (Auto) 0.1 % Basophils (%) (Auto) 0.5 % Neutrophils # (Auto) 18.0 TH/MM3 Lymphocytes # (Auto) 2.0 TH/MM3 Monocytes # (Auto) 1.2 TH/MM3 Eosinophils # (Auto) 0.0 TH/MM3 Basophils # (Auto) 0.1 TH/MM3 CBC Comment AUTO DIFF Differential Total Cells Counted 100 Neutrophils % (Manual) 64 % Band Neutrophils % 7 % Lymphocytes % 17 % Monocytes % 3 % Neutrophils # (Manual) 17.0 TH/MM3 Metamyelocytes 4 % Myelocytes 5 % Differential Comment FINAL DIFF MANUAL Platelet Estimate NORMAL Platelet Morphology Comment NORMAL Red Cell Morphology Comment NORMAL Laboratory Tests Test 12/14/16 06:15 Blood Urea Nitrogen 22 MG/DL Creatinine 0.17 MG/DL Random Glucose 121 MG/DL Total Protein 6.5 GM/DL Albumin 2.8 GM/DL Calcium Level 9.3 MG/DL Magnesium Level 2.0 MG/DL Alkaline Phosphatase 137 U/L Aspartate Amino Transf (AST/SGOT) 36 U/L Alanine Aminotransferase (ALT/SGPT) 88 U/L Total Bilirubin 0.9 MG/DL Sodium Level 128 MEQ/L Potassium Level 3.7 MEQ/L Chloride Level 90 MEQ/L Carbon Dioxide Level 29.5 MEQ/L Anion Gap 9 MEQ/L Estimat Glomerular Filtration Rate 597 ML/MIN Imaging Last Impressions Chest X-Ray 12/14/16 0600 Signed Impressions: Service Date/Time: Wednesday, December 14, 2016 03:57 - CONCLUSION: 1. Cardiomegaly and bibasilar airspace disease greater right lower lobe. Javier Ulloa MD Abdomen X-Ray 12/14/16 0000 Signed Impressions: Service Date/Time: Wednesday, December 14, 2016 10:22 - CONCLUSION: Diffuse air distention of the colon and small bowel loops characteristic of a hypodynamic ileus. Jorge Jolly MD Lower Extremity Ultrasound 12/09/16 0000 Signed Impressions: Service Date/Time: Friday, December 09, 2016 17:13 - CONCLUSION: 1. No evidence of DVT 2. Large complex mass in the pump to fossa characteristic of a hematoma. Joni Barfield MD Cervical Spine MRI 12/03/16 0000 Signed Impressions: Service Date/Time: Saturday, December 03, 2016 13:13 - CONCLUSION: Severely limited exam. I believe there is increased signal in the cervical cord mid C3 to mid C5. Ward Kim MD FACR Brain MRI 12/03/16 0000 Signed Impressions: Service Date/Time: Saturday, December 03, 2016 13:13 - CONCLUSION: 1. There is a small area of abnormal T2 signal in the left frontal cortex this is unchanged from the previous examination dated 11/26/16. This is nonspecific in appearance on the MRI. Differential considerations would be a small area of gliosis versus an old area of contusion. Follow up examination in 6 months to document stability would be warranted. 2. No findings to indicate acute cortical infarction are identified. Román Kim MD Gastrostomy Tube Placement 11/30/16 0000 Signed Impressions: Service Date/Time: Wednesday, November 30, 2016 12:22 - CONCLUSION: Uncomplicated gastrostomy tube placement as above. Jorge Jolly MD Liver Ultrasound 11/09/16 0000 Signed Impressions: Service Date/Time: Wednesday, November 09, 2016 13:58 - CONCLUSION: Sono dense liver without duct dilatation. 4 mm common duct. Ward Kim MD FACR Chest CT 11/06/16 0000 Signed Impressions: Service Date/Time: Sunday, November 06, 2016 11:24 - CONCLUSION: 1. Dense bilateral posterior lower lobe airspace consolidation consistent with aspiration versus less likely pneumonia. 2. Linear consolidation in the right middle lobe consistent with atelectasis versus aspiration. 3. Trace left and small right pleural effusions. 4. Support lines and tubes in good position. 5. Prominent coronary artery calcifications. Nico Bozorgmanesh, MD Head CT 11/05/16 0000 Signed Impressions: Service Date/Time: Saturday, November 05, 2016 21:43 - CONCLUSION: 1. No acute intracranial abnormalities. Pansinus fluid opacification. Cristofer De Santiago MD Carotid Artery Ultrasound 10/25/16 0000 Signed Impressions: Service Date/Time: September 08:27 - CONCLUSION: Mild to moderate plaque in both carotid systems with less than 40%% diameter stenosis by velocity criteria. Jhonathan Dietz MD CT Angiography 10/25/16 0000 Signed Impressions: Service Date/Time: September 06:12 - CONCLUSION: 1. Negative for pulmonary embolism. 2. There is a fairly large area of masslike consolidation in the medial right lung involving posterior segment right upper lobe and medial aspect of right lower lobe. There is associated right hilar and mediastinal adenopathy measuring up to 2.1 cm. Differential diagnosis includes pneumonia or underlying lung neoplasm. Close followup imaging recommended after treatment for pneumonia, to assess for underlying mass. Cristofer De Santiago MD Physical Exam CONSTITUTIONAL/GENERAL: This is a morbidly obese patient, TUBES/LINES/DRAINS: SKIN: No jaundice, rashes, or lesions. Skin temperature appropriate. Not diaphoretic. NECK: trach in place CARDIOVASCULAR: Afib on the monitor tachycardia without murmurs, gallops, or rubs. No JVD. Peripheral pulses symmetric. RESPIRATORY/CHEST: Symmetric, unlabored respirations. coarse BS CT R with serous drainage up to 80 cc/d GASTROINTESTINAL: Abdomen soft, very tender diffusely and quite distended. No hepato-splenomegaly, or palpable masses. No guarding. Bowel sounds present. GENITOURINARY: Without palpable bladder distension. Santiago catheter in place with clear yellow urine MUSCULOSKELETAL: Extremities without clubbing, cyanosis, Improved edema and indurated of L calf, NEUROLOGICAL: awakens , follows commands PSYCHIATRIC: calm Assessment & Plan Remarks PNA, Kleb pneumo - failrly sensitive - PSAE , Stenotrophomonas and Kleb in the sputum ? unclear is Steno malt is a coloniser vs a true pathogen, but improved after Bactrim was introdused ARDS Acute VDRF, tolerating weaning - sp trach R sided PTX sp CT Abx associated diarrhea, C.diff negative Abnormal UA, CANDIDURIA Persiastent leukocytosis and bandemia - stable to slowly improving Persistent fever, afebrile Abx associated diarrhea, C.diff negative L calf hematoma Ileus New leukocytosis / source REC's: consider CT abd/pelis to exclude developping colitis: C.diff can presnt atypically with ileus and leukemoid reaction rather than typical diarrhea dw Mariana Goldberg RN, MD Dec 14, 2016 16:46
[2016-12-14] MEDS ORDERED: PEG (High)/E-LYTE SOLN 4000 ML BTL PO ONE (17:45)
[2016-12-14] MEDS: RESP: ALBUTEROL 2.5 MG/3 ML NEB (PRN) NEB (19:46)
[2016-12-14] MEDS: ESCITALOPRAM OXALATE 10 MG TAB PO SCH (21:33)
[2016-12-15] VITALS (48 sets, daily range): BP systolic 60–147; BP diastolic 39–94; PULSE 87–149; RESP 16–53; TEMP 96.8–97.1; O2SAT 90–100
[2016-12-15] MEDS: DILTIAZEM HCL 90 MG TAB PO SCH ×4 (00:15→18:00)
[2016-12-15] MEDS: METOPROLOL TARTRATE 50 MG TAB PO SCH ×4 (00:15→16:53)
[2016-12-15] MEDS: INSULIN NovoLIN REGULAR SUPPLEMENTAL SCALE SQ SCH ×4 (02:00→20:00)
[2016-12-15] MEDS: LABETALOL HCL 100 MG/20 ML VIAL IV PUSH PRN (03:18)
[2016-12-15] MEDS: CHLORHEXIDINE GLUCONATE 2 % 1 PACK (2 CLOTHS) TOP SCH (03:33)
[2016-12-15] MEDS: hydrALAZINE HCL 20 MG/ML VIAL IV PUSH PRN (03:34)
[2016-12-15] MEDS: METOPROLOL TARTRATE 5 MG/5 ML VIAL IV PUSH PRN ×3 (03:45→03:54)
[2016-12-15] MEDS: oxyCODONE HCL ORAL CONC 5 MG/0.25 ML SYRINGE PEG SCH ×4 (04:00→22:20)
--- NOTE | 2016-12-15 05:49 | RADRPT ---
EXAM DATE/TIME: 12/15/2016 04:04 [facility] COMPARISON: CHEST SINGLE AP, December 14, 2016, 3:57. INDICATIONS : Shortness of breath, intubated. MEDICAL HISTORY : Hypercholesterolemia. Hypertension Chronic obstructive pulmonary disease. SURGICAL HISTORY : None. ENCOUNTER: Subsequent ACUITY: 2 months PAIN SCORE: Non-responsive. LOCATION: Bilateral chest FINDINGS: A single AP semierect view of the chest was obtained and again demonstrates the tracheostomy tube in place. The right-sided chest tube remains in place with no pneumothorax. The left sided PICC line are mainstem place as well. There is hazy opacity remaining at the lung bases right greater than left. T here is no distinct effusion. The heart size is at the upper limits of normal with atherosclerotic ch anges in the aorta. CONCLUSION: 1. Right-sided chest tube with no pneumothorax. 2. Bibasilar hazy opacity remains. Jhonathan Dietz MD on December 15, 2016 at 5:46 Board Certified Radiologist. This report was verified electronically.
--- NOTE | 2016-12-15 05:50 | RADRPT ---
EXAM DATE/TIME: 12/15/2016 04:07 [facility] COMPARISON: ABDOMEN KUB ONLY, December 14, 2016, 10:22. INDICATIONS : Abdominal distention. MEDICAL HISTORY : Hypercholesterolemia. Hypertension Chronic obstructive pulmonary disease. SURGICAL HISTORY : None. ENCOUNTER: Subsequent ACUITY: 2 months PAIN SCORE: Non-responsive. LOCATION: Bilateral abdomen FINDINGS: 2 AP supine views of the abdomen were obtained and again demonstrate an abnormal bowel gas pattern. T here is gaseous distention and transverse colon which appear slightly more prominent. There are multi ple loops of borderline dilated air-containing small bowel. There is no definite free air. CONCLUSION: Mild increased gaseous distention in the colon. Jhonathan Dietz MD on December 15, 2016 at 5:47 Board Certified Radiologist. This report was verified electronically.
[2016-12-15] MEDS: METOCLOPRAMIDE HCL 10 MG/2 ML VIAL IV SCH ×3 (06:20→22:20)
[2016-12-15] MEDS: RESP: ALBUTEROL 2.5 MG/3 ML NEB (PRN) NEB (07:17)
[2016-12-15] MEDS: RESP: BUDESONIDE 0.5 MG/2 ML NEB NEB SCH ×2 (07:17→20:24)
[2016-12-15] MEDS: CHLORHEXIDINE 0.12% (ORAL KIT) 15 ML CUP MT SCH ×2 (08:00→20:23)
--- NOTE | 2016-12-15 08:09 | HHI.GIFU ---
Subjective Remarks Nurse reports the patient received most of GoLYTELY overnight, but began having significant nausea and vomiting consisting of light brown material early this morning. His G-tube was placed to suction and it immediately put out about 5L of light brown material. He is currently lethargic. His G-tube to low intermittent wall suction is currently putting out a small amount of light brown material. He had a large brown bowel movement. He is going down for a stat CT scan (Anne-Marie Montiel) Objective Vitals I&O Vital Signs Date Time Temp Pulse Resp B/P (MAP) Pulse Ox O2 Delivery O2 Flow Rate FiO2 12/15/16 07:17 92 80 12/15/16 06:00 133 24 87/60 (69) 91 12/15/16 06:00 133 12/15/16 06:00 80 12/15/16 05:00 94 20 87/60 (69) 92 12/15/16 05:00 94 12/15/16 04:15 91 80 12/15/16 04:00 124 20 89/52 (64) 90 12/15/16 04:00 45 12/15/16 04:00 132 12/15/16 03:00 117 12/15/16 03:00 117 20 134/94 (107) 98 12/15/16 02:00 45 12/15/16 02:00 131 24 117/84 (95) 99 12/15/16 02:00 131 12/15/16 01:00 113 12/15/16 01:00 113 24 147/94 (111) 90 12/15/16 00:17 99 45 12/15/16 00:00 45 12/15/16 00:00 96 20 130/80 (97) 95 12/15/16 00:00 96.8 12/15/16 00:00 96 12/14/16 23:00 95 20 127/77 (94) 96 12/14/16 23:00 95 12/14/16 22:00 95 12/14/16 22:00 95 20 121/76 (91) 96 12/14/16 21:00 94 20 135/98 (110) 90 12/14/16 21:00 94 12/14/16 20:00 92 12/14/16 20:00 92 20 128/86 (100) 97 12/14/16 20:00 45 12/14/16 20:00 97.4 12/14/16 19:43 97 45 12/14/16 18:30 95 12/14/16 18:00 96 12/14/16 17:00 96 12/14/16 16:30 98 12/14/16 16:00 98.2 12/14/16 16:00 45 12/14/16 16:00 96 12/14/16 15:45 95 45 12/14/16 15:30 96 12/14/16 15:00 102 12/14/16 14:30 102 12/14/16 14:00 101 12/14/16 13:30 99 18 124/68 (86) 92 12/14/16 13:30 99 12/14/16 13:00 100 12/14/16 13:00 100 19 133/79 (97) 73 12/14/16 12:30 97 12/14/16 12:30 97 39 126/79 (95) 95 12/14/16 12:27 100 45 12/14/16 12:00 45 12/14/16 12:00 102 16 121/81 (94) 94 12/14/16 12:00 102 12/14/16 11:30 104 12/14/16 11:30 104 16 119/83 (95) 91 12/14/16 11:00 106 14 127/77 (94) 90 12/14/16 11:00 106 12/14/16 10:30 101 17 126/78 (94) 86 12/14/16 10:30 101 12/14/16 10:00 133 12/14/16 10:00 133 17 126/78 (94) 92 12/14/16 09:50 143 16 149/99 (116) 97 12/14/16 09:50 143 12/14/16 09:30 139 15 143/101 (115) 95 12/14/16 09:30 139 12/14/16 09:00 126 12/14/16 09:00 126 15 148/93 (111) 95 12/14/16 08:30 136 18 131/81 (98) 94 12/14/16 08:30 136 12/14/16 08:14 45 12/14/16 08:14 100 45 I/O 10/20/17 10/12/14/16 12/15/16 12/15/16 12/15/16 07:00 15:00 23:00 07:00 15:00 23:00 Intake Total 1289 ml Output Total 350 ml 450 ml Balance 939 ml -450 ml Tube Feeding 1289 ml Output Urine Total 350 ml 450 ml Chest Tube Drainage Total 0 ml 0 ml Laboratory Date/Time Source Procedure Growth Status 12/14/16 22:15 Blood Peripheral Aerobic Blood Culture Pending Received 12/14/16 22:15 Blood Peripheral Anaerobic Blood Culture Pending Received 11/08/16 14:15 Stool Stool Stool Occult Blood ([facility]) - Final HEMOCCULT NEGATIVE Complete 11/27/16 09:55 Sputum Endotracheal Gram Stain - Final Complete 11/27/16 09:55 Sputum Culture - Final Klebsiella Pneumoniae Stenotrophomonas Maltophilia Pseudomonas Aeruginosa Complete 12/14/16 18:10 Urine Catheterized Urine Urine Culture Pending Received Imaging Last Impressions Abdomen X-Ray 12/15/16 0600 Signed Impressions: Service Date/Time: Thursday, December 15, 2016 04:07 - CONCLUSION: Mild increased gaseous distention in the colon. Jhonathan Dietz MD Chest X-Ray 12/15/16 0400 Signed Impressions: Service Date/Time: Thursday, December 15, 2016 04:04 - CONCLUSION: 1. Right-sided chest tube with no pneumothorax. 2. Bibasilar hazy opacity remains. Jhonathan Dietz MD Lower Extremity Ultrasound 12/09/16 0000 Signed Impressions: Service Date/Time: Friday, December 09, 2016 17:13 - CONCLUSION: 1. No evidence of DVT 2. Large complex mass in the pump to fossa characteristic of a hematoma. Joni Barfield MD Cervical Spine MRI 12/03/16 0000 Signed Impressions: Service Date/Time: Saturday, December 03, 2016 13:13 - CONCLUSION: Severely limited exam. I believe there is increased signal in the cervical cord mid C3 to mid C5. Ward Kim MD FACR Brain MRI 12/03/16 0000 Signed Impressions: Service Date/Time: Saturday, December 03, 2016 13:13 - CONCLUSION: 1. There is a small area of abnormal T2 signal in the left frontal cortex this is unchanged from the previous examination dated 11/26/16. This is nonspecific in appearance on the MRI. Differential considerations would be a small area of gliosis versus an old area of contusion. Follow up examination in 6 months to document stability would be warranted. 2. No findings to indicate acute cortical infarction are identified. Román Kim MD Gastrostomy Tube Placement 11/30/16 0000 Signed Impressions: Service Date/Time: Wednesday, November 30, 2016 12:22 - CONCLUSION: Uncomplicated gastrostomy tube placement as above. Jorge Jolly MD Liver Ultrasound 11/09/16 0000 Signed Impressions: Service Date/Time: Wednesday, November 09, 2016 13:58 - CONCLUSION: Sono dense liver without duct dilatation. 4 mm common duct. Ward Kim MD FACR Chest CT 11/06/16 0000 Signed Impressions: Service Date/Time: Sunday, November 06, 2016 11:24 - CONCLUSION: 1. Dense bilateral posterior lower lobe airspace consolidation consistent with aspiration versus less likely pneumonia. 2. Linear consolidation in the right middle lobe consistent with atelectasis versus aspiration. 3. Trace left and small right pleural effusions. 4. Support lines and tubes in good position. 5. Prominent coronary artery calcifications. Nico Vaughan MD Head CT 11/05/16 0000 Signed Impressions: Service Date/Time: Saturday, November 05, 2016 21:43 - CONCLUSION: 1. No acute intracranial abnormalities. Pansinus fluid opacification. Cristofer De Santiago MD Carotid Artery Ultrasound 10/25/16 0000 Signed Impressions: Service Date/Time: September 08:27 - CONCLUSION: Mild to moderate plaque in both carotid systems with less than 40%% diameter stenosis by velocity criteria. Jhonathan Dietz MD CT Angiography 10/25/16 0000 Signed Impressions: Service Date/Time: September 06:12 - CONCLUSION: 1. Negative for pulmonary embolism. 2. There is a fairly large area of masslike consolidation in the medial right lung involving posterior segment right upper lobe and medial aspect of right lower lobe. There is associated right hilar and mediastinal adenopathy measuring up to 2.1 cm. Differential diagnosis includes pneumonia or underlying lung neoplasm. Close followup imaging recommended after treatment for pneumonia, to assess for underlying mass. Cristofer De Santiago MD Physical Exam HEENT: Normocephalic; atraumatic; no jaundice. CHEST: Tracheostomy to CPAP. Course breath sounds. Chest tube on the right CARDIAC: Irregular, Aflutter on monitor-heart rate 130 ABDOMEN: Soft, obese, mildly distended at this time, bowel sounds hypoactive EXTREMITIES: Generalized edema. KITCHEN CLERK: Lethargic (Anne-Marie Montiel KENNEL KEEPER) Assessment and Plan Plan ASSESSMENT - Severe Ileus. KUB (12/14/16)---> Diffuse air distention of the colon and small bowel loops characteristic of a hypodynamic ileus. He has associated nausea, abdominal pain, bloating. He was started on Reglan and received GoLYTELY overnight. This morning he began vomiting and his G-tube Was placed to suction. The nurse reports that she immediately got out 5 L of brown material his abdomen is soft and mildly distended since his G-tube was placed to suction. He is going down for a stat CT scan. (+) large bowel movement- liquid brown. Nothing by mouth. Keep G-tube to LIWS. Continue Reglan - Dysphagia. S/P EGD (11/29/16)---> 1. Normal stomach mild esophagitis no transillumination or indentation seen-peg could not be placed endoscopically 2. Retroflexed views revealed a hiatal hernia. S/P G tube placement by IR (11/30/16). - Elevated LFTs, improved. Today's labs are pending - Respiratory failure/ARDS/COPD/PNA. S/P tracheostomy, on CPAP. Prednisone, Nebs. - Sepsis/Leukocytosis. Sputum with Klebsiella pneumoniae, stenotrophomonas maltiophilia, PSAE. BCx (12/07) negative. WBC 21.3 yesterday, repeat cultures pending (Blood, urine). Stat CT scan pending - Atrial fibrillation/flutter. Currently in Aflutter, Rate 130. Amiodarone. BB. Heparin, digoxin - HTN, per attending. PLAN - Nothing by mouth - Stat CT scan abdomen and pelvis - G-tube to low intermittent wall suction - Cont. Reglan - Await today's labs - Supportive care - CCM following - ID following - Palliative care following - Further recommendations to follow based on results of above - This pt seen by myself and Dr Mota and this note is written on his behalf ADDENDUM 11:43. CT scan abdomen and pelvis noted- distended bowel especially the small bowel and the cecum (4.5 cm). This is nonspecific. A transition point is not seen. This could relate to ileus. Oral contrast does extend to the rectum. By basilar areas of consolidation at the lung bases. There also is a possibility small pneumothorax on the right. The patient does have a right chest tube in place. G-tube. Distended gallbladder. Increased soft tissue density in the left lateral abdominal wall which could be from prior trauma or edema Cont. tx of ileus. CBC/CMP today. If patient has persistent leukocytosis/ bandemia and elevated LFTs, consider cholecystostomy tube placement by IR. (Anne-Marie Montiel) Physician Comments Patient seen and examined Agree with above Continue with current supportive care Monitor labs CT noted consider cholecystostomy tube for distended gallbladder but I will defer to the ICU service (Oscar Mota MD) Anne-Marie Montiel Dec 15, 2016 08:09 Oscar Mota MD Dec 15, 2016 18:36
[2016-12-15] MEDS: LISINOPRIL 10 MG TAB PO SCH (09:00)
[2016-12-15] MEDS: SODIUM CHLORIDE 0.9% FLUSH 10 ML FLUSH IV FLUSH SCH (09:00)
[2016-12-15] MEDS: SODIUM CHLORIDE 1 GRAM TAB PO SCH ×2 (09:00→21:05)
[2016-12-15] MEDS: INSULIN DETEMIR 100 UNITS/ML VIAL SQ SCH ×2 (09:00→21:07)
[2016-12-15] MEDS ORDERED: DIATRIZOATE MEGLUM/DIATRIZOATE SOD 9 ML CUP PO ONE (09:30)
[2016-12-15] MEDS ORDERED: IOHEXOL 350 MG/ML 10 ML VIAL (for RAD DIAG) IVCONTRAST ONE (10:51)
--- NOTE | 2016-12-15 11:18 | RADRPT ---
EXAM DATE/TIME: 12/15/2016 10:50 [facility] COMPARISON: CT THORAX W/O CONTRAST, November 06, 2016, 11:24. CHEST SINGLE AP, December 15, 2016, 4:04. INDICATIONS : Abdominal distention. IV CONTRAST: 75 cc Omnipaque 350 (iohexol) IV ORAL CONTRAST: Prescribed oral contrast ingested. RADIATION DOSE: 16.77 CTDIvol (mGy) MEDICAL HISTORY : Hypertension. Chronic obstructive pulmonary disease. SURGICAL HISTORY : G-tube placement ENCOUNTER: Initial ACUITY: 1 day PAIN SCALE: Non-responsive LOCATION: Bilateral abdomen TECHNIQUE: Volumetric scanning of the abdomen and pelvis was performed. Using automated exposure control and ad justment of the mA and/or kV according to patient size, radiation dose was kept as low as reasonably achievable to obtain optimal diagnostic quality images. DICOM format image data is available electro nically for review and comparison. FINDINGS: LOWER LUNGS: There is a right chest tube in place. There is a small amount of air seen at the anterior medial righ t chest which may be related to some pneumothorax. There is increased density at the lower lobes cedric aterally a more prominent the left representing a combination of atelectasis and/or consolidation. LIVER: Homogeneous density without lesion. There is no dilation of the biliary tree. The gallbladder is dis tended. SPLEEN: Normal size without lesion. PANCREAS: Within normal limits. KIDNEYS: Normal in size and shape. There is no mass, stone or hydronephrosis. ADRENAL GLANDS: Within normal limits. VASCULAR: There is no aortic aneurysm. Atherosclerotic calcifications are seen. BOWEL/MESENTERY: ET tube in place. There is distended mid small bowel measuring up to 4.5 cm. The cecum measures up to 10 cm. The cecum is not thickened. The remaining aspects of the colon is not dilated. ABDOMINAL WALL: Within normal limits. RETROPERITONEUM: There is no lymphadenopathy. BLADDER: No wall thickening or mass. REPRODUCTIVE: Within normal limits. INGUINAL: There is no lymphadenopathy or hernia. MUSCULOSKELETAL: There are old left rib fracture seen. Degenerative change in the lower lumbar spine. There is increas ed density and thickening seen in the left lateral abdominal wall which could be related to recent tr auma. CONCLUSION: 1. Distended bowel especially the small bowel and the cecum. This is nonspecific. A transition point is not seen. This could relate to ileus. Oral contrast does extend to the rectum. 2. Bibasilar areas of consolidation at the lung bases. There also is a possible small pneumothorax on the right. The patient does have a right chest tube in place. 3. G-tube. 4. Distended gallbladder. 5. Increased soft tissue density in the left lateral abdominal wall which could be from prior trauma or edema. Jayson Soto MD on December 15, 2016 at 11:07 Board Certified Radiologist. This report was verified electronically.
[2016-12-15] MEDS ORDERED: AMIODARONE HCL 150 MG/3 ML VIAL ONE (12:08)
[2016-12-15] MEDS: DIGOXIN 0.125 MG TAB PO SCH (12:25)
[2016-12-15] MEDS: SODIUM CHLORIDE 0.9% FLUSH 10 ML FLUSH SCH ×2 (12:25→21:06)
[2016-12-15] MEDS: SODIUM CHLORIDE 0.9% FLUSH 10 ML FLUSH IVF SCH (12:25)
[2016-12-15] MEDS: HEPARIN SODIUM - SQ 10,000 UNITS/ML VIAL SQ SCH ×2 (12:26→21:06)
[2016-12-15] MEDS: AMIODARONE 200 MG TAB OG-TUBE SCH ×2 (12:26→21:06)
[2016-12-15] MEDS: ARTIFICIAL TEARS OPTH OINT 3.5 APPLIC/3.5 GM TUBO EACH EYE SCH ×2 (12:26→20:23)
[2016-12-15] MEDS: predniSONE 20 MG TAB PO SCH (12:42)
[2016-12-15] MEDS: FAMOTIDINE 20 MG TAB NG SCH ×2 (12:42→21:05)
[2016-12-15] MEDS ORDERED: NOREPINEPHRINE 4 MG/4 ML AMP ONE (13:15)
--- NOTE | 2016-12-15 13:24 | HHI.CCPN ---
Subjective Remarks/Hospital Course 56-year-old very pleasant gentleman with past medical history of COPD, and hypertension presents complaining of shortness of breath and nausea, generalized fatigue and chills for 2 days. He thinks it has been from being out in the heat. Denies any fever, chest pain, vomiting, abdominal pain, focal weakness or numbness. In the emergency department his saturation was in mid 80s on arrival with auditory wheezing and tachypnea. He was placed on 4 liters of NC and saturating in the low 90. He does not use oxygen at home. He also mentioned 2 days ago, he came home and was sitting in a chair and was taking his shoes off when he passed out. States he woke up and was still on the chair. This has never happen before. 10/25: Patient intubated secondary to increasing oxygen requirements, altered mental status. Discussed with son. Somewhat hypertensive post intubation. 10/26: Placed on rotaprone bed last evening. Flolan initiated. Saturations improved. Afebrile. Remains on Nimbex drip. 10/27: T max 99.7. Tolerated on not prone position 2 hours yesterday. Tolerating trickle feeds. FiO2 down to 55% 10/28: Tmax 99.9. When unprone for chest x-ray this a.m. desaturated. Currently on 90% FiO2. Actually hypertensive. No bowel movements. Remains paralyzed 10/29: Remains intubated sedated on continuous Prone therapy Except for chest x- ray. Fever 100.8. Panculture requested. Zyvox added. Continue IV sedation with propofol and fentanyl and Versed, neuromuscular paralysis with Nimbex 10/30: Prone cycle changed to 8 hr prone, 1 hr supine from 10/29. Due to hypoxia will continue with same cycle today. Chest x-ray remains unchanged. Patient remains severely hypoxemic FiO2 at 75% PEEP at 16. WBC count worsened to 18. Remains neuromuscularly paralyzed. 10/31: Patient remains critically ill but stable. Oxygen saturation 95% on 55 of FiO2 and PEEP of 16. Reduce PEEP to 14, FiO2 to 50% and start weaning Flolan. Increase supine time to 4 hours, reduce Prone time to 6 hours 11/01: Patient remains intubated sedated critically ill on neuromuscular paralysis. FiO2 reduced to 50, I will attempt PEEP wean gradually to 12 today. Prone/supine cycles will be changed to 6 hours each 11/02: FiO2 remains at 50%, PEEP reduced from 14 to 12 today, TV increased to 600 and RR to 20, in anticipation of discontinuing prone therapy, which will be DCd today. Off Flolan for 2 days 11/03: off pronation. fio2 up to 65% , peep 12. agitation causing desaturation. minimal improvements. 11/04: good diuresis yesterday, but despite that, fio2 persists at 65% and spo2 decreasing to 91% today. no real improvements and some worsening of pulmonary function despite ongoing aggressive therapies. still not safe for SBT given hypoxia. also severely hypertensive this morning. 11/05: continues to diurese well and Cr still at baseline. fio2 at 90% however, and no clinical improvements in mental status or hypoxia. still unsafe for SBT given hypoxemia. off pathway. hypertension under much better control. poor neuro status is concerning. 11/06: Remains severely hypoxemic. FiO2 was 100% PEEP 14. I reduce FiO2 to 90% after increasing PEEP to 16. Developed a flutter with RVR overnight, currently on Cardizem drip. Unable to do SBT due to very high settings 11/07: Remains hypoxemic and but able to wean FiO2 down to 80% with PEEP of 16. Remains unresponsive on sedation. Unable to trach due to his high vent settings and high FiO2. Remains on Cardizem and 15 mg per hour, with rate controlled a flutter. We'll start by mouth Cardizem in an attempt to wean IV Cardizem 11/08: Remains critically ill hypoxic but FiO2 now weaned to 60%, PEEP remains at 16. Very heavily sedated no withdrawal to pain. Will hold all continuos sedation. Sputum culture with Klebsiella sensitive to Rocephin. A flutter persistent, will start IV heparin 11/09 Patient is sedated with Diprivan and intubated, On Cardizem drip 15mg/hr for Aflutter. Heparin drip stated yesterday. 11/10 Patient remains sedated and intubated. On Heparin drip. Persistent fever with Tmax 102.5. ETT was replaced yesterday. 11/11 Patient was placed on Cardizem and amio drips overnight for Afib with RVR. Sedated with Diprivan and intubated. On Heparin drip. T;99.3 this morning. 11/12 Patient remains intubated and sedated with Diprivan. On Cardizem drip 15mg/ hr. Afebrile, Tmax 100.6 11/13 Patient is sedate with Diprivan and intubated. In Afib with RVR now on Amio drip. Tmax 100,4 11/14 Remains intubated sedated with propofol and fentanyl. Afib rate controlled , remains on amiodarone and Cardizem gtt. Fio2 remains high at 70%, PEEP 12. CXR persistent bibasilar infiltrates/effusion 11/15: Currently sedated with propofol and fentanyl drips. Currently in A. fib/ flutter on amiodarone drip and Cardizem drip. PEEP increased to 14. FiO2 65. 11/16: Tmax 100.1. Patient more alert and tachycardic this AM. Adding midazolam gtt for sedation and currently tolerating tube feeding. Positive BM. PEEP to 12. FiO2 75% 11/17: Afebrile. FiO2 down to 60%. PEEP set 12. Multiple tracheostomy hopefully on Saturday. Heart rate better control. 11/18: Afebrile. Discontinuing amiodarone drip today and switching to oral. FiO2 between 60 and 70%. Restarting epoprostenol in attempt to get FiO2 down to 50% for tracheostomy tomorrow 11/19 No events overnight. Sedated with Diprivan, Fentanyl and versed. Still requiring high O2 - on PRVC with PEEP;12 and FIO2 70%. Afebrile. 11/20 Patient remains sedated with Diprivan, versed, Fentanyl and intubated. On PRVC with PEEP: 12, FIO2 50% , sats 88-90%. On Heparin drip. 11/21: Tmax 99.4. Tolerating tube feeds. Remains on heparin drip. FiO2 down to 55%. PEEP of 10. Eyes open blinks spontaneously. Does squeeze and weakly on left side with encouragement 11/22: Intubated heavily sedated. FiO2 50%, remains on Flolan. PEEP 10. Bumex 1 mg 1 and Diamox 500 mg 1 IV. She will negative balance. Heparinized tube feeds on hold for tracheostomy today at 12. Remains in atrial flutter 11/23 Patient remains sedated with Diprivan, Fentanyl, Versed and intubated. On Heparin drip. For CT guided thoracentesis today. On APRV 11/24 Patient remains sedated and intubated. 20Fr CT placed yesterday for right sided PTX. Spiked fever with T 101.6. Remains on Heparin drip. 11/25 Patient remains intubated with Diprivan, fentanyl and intubated. On PRVC with PEEP: 10, FIO2 50%. Afebrile. 11/26 Patient is sedated with Diprivan, Fentanyl and intubated. Afebrile. On Heparin drip. On PRVC with PEEP: 10, FIO2 60% 11/27 Patient is scheduled for trach in OR today. Sedated and intubated. Heparin drip is off for trach. 11/28 Patient s/p trach yesterday. Sedated with Diprivan and Fentanyl. Afebrile. On PRVC with PEEP; 10 and FIO2 50% 11/29 No events overnight. Sedated and on ventilator via trach. For PEG tube placement today. Heparin drip on hold. 11/30: Currently afebrile. MAXIMUM TEMPERATURE 100. Positive BM via fecal containing device. Tube feeds on hold secondary to plan PEG tube placement today. Heparin drip on hold as well. 12/01: Status post PEG tube placement yesterday per IR. Heparin drip and tube feeds restarted today. Restarting insulin detemir. Awake and alert and weakly follows commands on sedation 12/02: Tmax 99.3. Tube feeds restarted and tolerating. Awake and alert and weakly follows commands. Plan for MRI brain/C-spine a.m. 12/03. 12/03: Patient is awake. Tolerating PRVC, very weakly wiggling cedric toes. MRI today 12/04/16: Tolerated CPAP with high settings yesterday for several hours 15 over 5. Becomes tachypneic and pressure support wean. MRI of the C-spine shows increased signal, no cord compression. Discussed with Dr. Riggins. He is requesting flexion extension films of C spine. 12/05/16: Desaturated on CPAP today. Now on full vent support with 50% FiO2. Continues to have functional quadriparesis. Dr Riggins reviewed MRI spine- he is not sure about increased signal in cord, but there could be cervical hyperextension injury, from intubation. 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 Cannot do cspine extension/flexion films. Repeat MRI c- spine in a few weeks 12/06/16: Patient remains on vent, placed on CPAP 11/29 now, on 50% FiO2. No improvement in neuro exam patient is awake. Able to minimally shrug shoulders. Continues to behave like functional quadriplegia 12/07/16: Tolerated CPAP approximately 6 hours yesterday but did not tolerate TPs. Having anxiety and some frustration due to neuromuscular weakness. I will add Lexapro. Give Bumex 1 mg x1, CXR shows pleural effusions. 12/08: On 11/29 PS since AM. CBC chest x-ray stable. Lexapro added yesterday for depression. Urine output 3.5 L in 24 hours 12/09: Tolerated CPAP well yesterday tolerated TPs for 2 hours but failed to CPAP today due to hypoxia and tachycardia. Currently on PRVC received metoprolol and fentanyl push with improved heart rate 12/10: Patient is tolerating CPAP today. Left popliteal fossa hematoma, large on left lower extremity ultrasound. Heparin and Coumadin placed on hold will get orthopedic consult 12/11: Slightly improved power of LE, unchanged on upper. L calf remains tense, but pulses are palpable. Holding anticoagulation 12/12: Tolerating CPAP 09/07. Slight improvement in muscle strength. Heparin remains on hold 12/13: Heparin remains on hold. No increase in hematoma clinically. Tolerating CPAP. 12/14: Patient complains of not feeling well today. Wbc count increased to 21, 000. KUB shows ileus. Hold tube feeds, Reglan 10 mg IV every 8 hours, send panculture 12/15: Large amount of output from the PEG tube and intermittent wall suction. Stat CT of the abdomen pelvis did not show any perforation or evidence of colitis. Shows ileus. Keep nothing by mouth IV. GI is following. CT chest shows tiny anterior pneumothorax. More Lethargic today, white count was 21,000 yesterday. Hypotensive systolic blood pressure in 70s. Probable severe sepsis/ septic shock. Start Zosyn and Levaquin and single dose of vancomycin. Check C Diff Objective Vital Signs Date Time Temp Pulse Resp B/P (MAP) Pulse Ox O2 Delivery O2 Flow Rate FiO2 12/15/16 07:17 92 80 12/15/16 06:00 133 24 87/60 (69) 12/15/16 00:00 96.8 12/13/16 10:40 T-piece 7.00 Result Diagram: 12/14/16 0611 12/14/16 0615 Imaging Last Impressions Gastrostomy Tube Placement 11/30/16 0000 Signed Impressions: Service Date/Time: Wednesday, November 30, 2016 12:22 - CONCLUSION: Uncomplicated gastrostomy tube placement as above. Jorge Jolly MD Chest X-Ray 11/30/16 0000 Signed Impressions: Service Date/Time: Wednesday, November 30, 2016 03:55 - CONCLUSION: Progression in the bilateral pleural effusions and bibasilar pulmonary infiltrates. Fito Mar Jr., MD Abdomen X-Ray 11/30/16 Signed Impressions: Service Date/Time: Wednesday, November 30, 2016 09:43 - CONCLUSION: 1. No definite nasogastric catheter is identified. Repeat examination centered higher in the thorax may be performed for more definitive evaluation. Consider repositioning the nasogastric catheter prior to repeat imaging. Nico Vaughan MD Brain MRI 11/26/16 0000 Signed Impressions: Service Date/Time: Saturday, November 26, 2016 19:52 - CONCLUSION: 1. Small focal signal abnormality in the superior medial left frontal lobe. This is nonspecific. This could be the sequela from prior insult such as a contusion or small infarct. An acute infarct is not seen. A small underlying lesion could have a similar appearance. One could perform a contrast-enhanced study to determine if there is any enhancement associated with this region. 2. There are a few scattered minimal punctate areas of demyelination seen not expected for the patient's age. 3. Sinus disease. Jayson Soto MD Lower Extremity Ultrasound 11/09/16 0000 Signed Impressions: Service Date/Time: Wednesday, November 09, 2016 14:13 - CONCLUSION: Normal examination. Jayson Manning MD Liver Ultrasound 11/09/16 0000 Signed Impressions: Service Date/Time: Wednesday, November 09, 2016 13:58 - CONCLUSION: Sono dense liver without duct dilatation. 4 mm common duct. Ward Kim MD FACR Chest CT 11/06/16 0000 Signed Impressions: Service Date/Time: Sunday, November 06, 2016 11:24 - CONCLUSION: 1. Dense bilateral posterior lower lobe airspace consolidation consistent with aspiration versus less likely pneumonia. 2. Linear consolidation in the right middle lobe consistent with atelectasis versus aspiration. 3. Trace left and small right pleural effusions. 4. Support lines and tubes in good position. 5. Prominent coronary artery calcifications. Nico Vaughan MD Head CT 11/05/16 0000 Signed Impressions: Service Date/Time: Saturday, November 05, 2016 21:43 - CONCLUSION: 1. No acute intracranial abnormalities. Pansinus fluid opacification. Cristofer De Santiago MD Carotid Artery Ultrasound 10/25/16 0000 Signed Impressions: Service Date/Time: September 08:27 - CONCLUSION: Mild to moderate plaque in both carotid systems with less than 40%% diameter stenosis by velocity criteria. Jhonathan Dietz MD CT Angiography 10/25/16 0000 Signed Impressions: Service Date/Time: September 06:12 - CONCLUSION: 1. Negative for pulmonary embolism. 2. There is a fairly large area of masslike consolidation in the medial right lung involving posterior segment right upper lobe and medial aspect of right lower lobe. There is associated right hilar and mediastinal adenopathy measuring up to 2.1 cm. Differential diagnosis includes pneumonia or underlying lung neoplasm. Close followup imaging recommended after treatment for pneumonia, to assess for underlying mass. Cristofer De Santiago MD Objective Remarks GENERAL: 56-year-old male, critically ill currently on PRVC via tracheostomy, somnolent today SKIN: Warm and dry. Positive intertrigo HEAD: Atraumatic. Normocephalic. EYES: Pupils equal and round about 3 mm bilaterally and reactive. ENT: No nasal bleeding or discharge. NECK: Trachea midline. No JVD. Tracheostomy site is clean dry and intact CARDIOVASCULAR: Tachycardia, in atrial flutter. Hypotensive today systolic blood pressure in 70s. S1, S2 no S4. RESPIRATORY: Bilateral mild expiratory wheezes and coarse bilateral anterior rhonchi appreciated. GASTROINTESTINAL: Abdomen soft, obese, distended. MUSCULOSKELETAL: Extremities with trace lower extremity bilateral edema. No obvious deformities. Left calf is some what tense, but no evidence of compartment syndrome NEUROLOGICAL: Eyes are open. Currently lethargic today but wakes up easily. Moves fingers and toes, but some improvement in overall strength. Shrugs shoulders Date of Insertion: Nov 16, 2016 Line: PICC Side: Left Location: Antecubital A/P Assessment and Plan Neuro/Psych: Functional quadriparesis Encephalopathy, metabolic CIM/SHEFALI s/p Neuromuscular paralysis for Prone therapy Syncope Depression Encephalopathy most likely secondary to sepsis MRI C-spine showing increased signals C3-C5 region. Dr Riggins reviewed MRI spine- not sure about increased signal in cord, could be cervical hyperextension injury, from intubation according to him. Unable to do flexion- extension films of the C-spine (trached patient). Repeat MRI c-spine probably next week. 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 DC Fentanyl patch. Hold liquid oxycodone 5 mg every 6 per tube. prn hydromorphone, fentanyl for breakthrough. Haloperidol 5mg iv q4h prn for agitation. Lexapro 10 mg qhs from 12/07/16. MRI brain 11/26: Small focal signal abnormality in the superior medial left frontal lobe. Could be sequela from prior insult such as a contusion or small infarct. No acute infarct MRI brain 12/[address] on admission revealed no acute intracranial findings, CT brain 11/05- no acute findings. opacification of sinuses. EEG 11/20: No seizure activity. EEG 11/09: severe encephalopathy PT/OT for range of motion, up to stretcher chair as tolerated CV: Hypotension/shock most likely septic Atrial fib/ flutter with RVR Hypertension, now intermittently hypotensive 2 L normal saline bolus, start Levophed to maintain map above 65, 12/15/16 On Amiodarone 200mg Q12, Digoxin 0.125 mg daily(Dig. level 0.5 on 12/01). HOLD PO diltiazem 90 mg PO q6hr, metoprolol 50mg Q6 due to hypotension DCd CLONIDINE 12/06/16 DUE TO INTERMITTENT HYPOTENSION Coumadin and heparin 12/10 held due to left popliteal fossa hematoma. Place on sq heparin for DVT prophylaxis Echo 10/25 EF 60-65%. Repeat echo with bubble study: 11/22: No shunt seen Resp: Acute, now chronic hypoxemic Respiratory failure s/p trach 11/27 Spontaneous Right sided PTX secondary to barotrauma COPD exacerbation Pneumonia most likely community-acquired Obesity hypoventilation syndrome Tobacco use disorder On PRVC FIO2 50%. SBT and TP as tolerated. Albuterol/ipratropium aerosols every 4 hours of albuterol aerosols every 2 hours PRN. Ventilator bundle Budesonide 0.5 mg/2 mL aerosols twice a day. Prednisone 20 mg daily s/p trach 11/[address] Martin #[facility]. Pulmonary/Dr. Wynne has followed s/p 20Fr CT placed for right PTX 11/23, monitor CT drainage. Leave CT in place until vent settings, hypoxia improved CT pulmonary angio revealed no pulmonary embolus. Masslike consolidation in the posterior right upper lobe and medial right lower lobe. Lymphadenopathy to 1 cm right hilum and subcarinal. Atelectasis left lower lobe. Discontinued Prone therapy 11/02/16. GI: Ileus Morbid Obesity Elevated LFT's- now within normal. PEG tube placement 11/30. US liver: No ductal dilatation Nothing by mouth, PEG tube to intermittent wall suction Reglan IV. GI following Famotidine 20 milligrams mg twice a day for GI prophylaxis /renal: Hyponatremia Monitor renal function, I/O's, electrolytes replacement per protocol. Endo: Hyperglycemia SSI Q6h with Regular Insulin mild protocol for glycemic control. Previously insulin detemir 62 units twice a day. Restarted 15 units twice a day 12/01. Adequate blood sugar control . Heme: Normocytic anemia Leukocytosis L popliteal fossa hematoma Monitor CBC, coags- Heparin/Coumadin on hold Monitor closely for compartment syndrome Place on sq Heparin 12/13 ID: Severe sepsis HAP Worsening leukocytosis ABX completed 12/11. (piperacillin/tazobactam and sulfamethoxazole/ trimethoprim 800/160 2 tablets 3 times a day) ID Amanda Haas, ríos culture, C Diff Placed back on Zosyn and Levaquin and single dose of vancomycin 12/15/16 Sputum: Klebsiella, Stenotrophomonas and Pseudomonas 11/27 Sputum cx 11/23: Kleb, Pseudomonas, s/p (ceftriaxone and fluconazole course). ID is following-Dr. Patel s/p ceftriaxone 11/02-11/09 for Enterobacter pneumonia. Repeat sputum Klebsiella sensitive to Rocephin 10/29/16-Enterobacter in sputum, 11/06/16, 11/10 sputum- Klebsiella Urine Legionella and pneumococcal antigens negative and influenza negative C-diff PCR is negative Access RUE PICC placed 11/05 through 11/15 replaced 11/16 with left upper extremity PICC Prophylaxis GI, famotidine. DVT - IV heparin gtt, Coumadin DCd 12/10 due to left popliteal hematoma, O Heparin 5000 U q12 sq 11/09 Doppler US LE negative for DVT Palliative care is following Critical Care: CCT 40 min Roro Tyler MD Dec 15, 2016 13:24
[2016-12-15] MEDS ORDERED: LEVOFLOXACIN 750 MG PREMIX INJ 150 ML IV SCH (14:00)
[2016-12-15 14:46] LABS: APTT (PATIENT) 20.7 SEC (24.3-30.1)
[2016-12-15] MEDS: PIPERACIL-TAZO 4.5 GM PREMIX 100 ML IV SCH ×2 (15:11→21:06)
--- NOTE | 2016-12-15 15:57 | HHI.IDPN ---
Subjective Subjective Remarks doing poorly todayIleus on CT fecal matter noted in PEG increased O2 requirements, up to 100% hypotensive, briefly on pressors, now RN is planning to take him off Antibiotics flores baltazar levaquine Allergies: Coded Allergies: No Known Allergies (Unverified , 10/25/16) Objective . Vital Signs Date Time Temp Pulse Resp B/P (MAP) Pulse Ox O2 Delivery O2 Flow Rate FiO2 12/15/16 12:55 96 60 12/15/16 10:30 100 100 12/15/16 07:17 92 80 12/15/16 06:00 133 24 87/60 (69) 91 12/15/16 06:00 133 12/15/16 06:00 80 12/15/16 05:00 94 20 87/60 (69) 92 12/15/16 05:00 94 12/15/16 04:15 91 80 12/15/16 04:00 124 20 89/52 (64) 90 12/15/16 04:00 45 12/15/16 04:00 132 12/15/16 03:00 117 12/15/16 03:00 117 20 134/94 (107) 98 12/15/16 02:00 45 12/15/16 02:00 131 24 117/84 (95) 99 12/15/16 02:00 131 12/15/16 01:00 113 12/15/16 01:00 113 24 147/94 (111) 90 12/15/16 00:17 99 45 12/15/16 00:00 45 12/15/16 00:00 96 20 130/80 (97) 95 12/15/16 00:00 96.8 12/15/16 00:00 96 12/14/16 23:00 95 20 127/77 (94) 96 12/14/16 23:00 95 12/14/16 22:00 95 12/14/16 22:00 95 20 121/76 (91) 96 12/14/16 21:00 94 20 135/98 (110) 90 12/14/16 21:00 94 12/14/16 20:00 92 12/14/16 20:00 92 20 128/86 (100) 97 12/14/16 20:00 45 12/14/16 20:00 97.4 12/14/16 19:43 97 45 12/14/16 18:30 95 12/14/16 18:00 96 12/14/16 17:00 96 12/14/16 16:30 98 12/14/16 16:00 98.2 12/14/16 16:00 45 12/14/16 16:00 96 12/14/16 15:45 95 45 . Laboratory Tests Test 12/14/16 06:11 White Blood Count 21.3 TH/MM3 Red Blood Count 3.79 MIL/MM3 Hemoglobin 11.6 GM/DL Hematocrit 34.6 % Mean Corpuscular Volume 91.3 FL Mean Corpuscular Hemoglobin 30.6 PG Mean Corpuscular Hemoglobin Concent 33.6 % Red Cell Distribution Width 15.2 % Platelet Count 338 TH/MM3 Mean Platelet Volume 6.7 FL Neutrophils (%) (Auto) 84.4 % Lymphocytes (%) (Auto) 9.4 % Monocytes (%) (Auto) 5.6 % Eosinophils (%) (Auto) 0.1 % Basophils (%) (Auto) 0.5 % Neutrophils # (Auto) 18.0 TH/MM3 Lymphocytes # (Auto) 2.0 TH/MM3 Monocytes # (Auto) 1.2 TH/MM3 Eosinophils # (Auto) 0.0 TH/MM3 Basophils # (Auto) 0.1 TH/MM3 CBC Comment AUTO DIFF Differential Total Cells Counted 100 Neutrophils % (Manual) 64 % Band Neutrophils % 7 % Lymphocytes % 17 % Monocytes % 3 % Neutrophils # (Manual) 17.0 TH/MM3 Metamyelocytes 4 % Myelocytes 5 % Differential Comment FINAL DIFF MANUAL Platelet Estimate NORMAL Platelet Morphology Comment NORMAL Red Cell Morphology Comment NORMAL Laboratory Tests Test 12/14/16 06:15 Blood Urea Nitrogen 22 MG/DL Creatinine 0.17 MG/DL Random Glucose 121 MG/DL Total Protein 6.5 GM/DL Albumin 2.8 GM/DL Calcium Level 9.3 MG/DL Magnesium Level 2.0 MG/DL Alkaline Phosphatase 137 U/L Aspartate Amino Transf (AST/SGOT) 36 U/L Alanine Aminotransferase (ALT/SGPT) 88 U/L Total Bilirubin 0.9 MG/DL Sodium Level 128 MEQ/L Potassium Level 3.7 MEQ/L Chloride Level 90 MEQ/L Carbon Dioxide Level 29.5 MEQ/L Anion Gap 9 MEQ/L Estimat Glomerular Filtration Rate 597 ML/MIN Microbiology Date/Time Source Procedure Growth Status 12/14/16 22:15 Blood Peripheral Aerobic Blood Culture - Preliminary NO GROWTH IN 1 DAY Resulted 12/14/16 22:15 Blood Peripheral Anaerobic Blood Culture - Preliminary NO GROWTH IN 1 DAY Resulted 12/14/16 16:25 Blood Peripheral Aerobic Blood Culture - Preliminary NO GROWTH IN 1 DAY Resulted 12/14/16 16:25 Blood Peripheral Anaerobic Blood Culture - Preliminary NO GROWTH IN 1 DAY Resulted 12/14/16 18:10 Urine Catheterized Urine Urine Culture Pending Received Imaging Last Impressions Abdomen X-Ray 12/15/16 0600 Signed Impressions: Service Date/Time: Thursday, December 15, 2016 04:07 - CONCLUSION: Mild increased gaseous distention in the colon. Jhonathan Dietz MD Chest X-Ray 12/15/16 0400 Signed Impressions: Service Date/Time: Thursday, December 15, 2016 04:04 - CONCLUSION: 1. Right-sided chest tube with no pneumothorax. 2. Bibasilar hazy opacity remains. Jhonathan Dietz MD Abdomen/Pelvis CT 12/15/16 0000 Signed Impressions: Service Date/Time: Thursday, December 15, 2016 10:50 - CONCLUSION: 1. Distended bowel especially the small bowel and the cecum. This is nonspecific. A transition point is not seen. This could relate to ileus. Oral contrast does extend to the rectum. 2. Bibasilar areas of consolidation at the lung bases. There also is a possible small pneumothorax on the right. The patient does have a right chest tube in place. 3. G-tube. 4. Distended gallbladder. 5. Increased soft tissue density in the left lateral abdominal wall which could be from prior trauma or edema. Jayson Soto MD Lower Extremity Ultrasound 12/09/16 0000 Signed Impressions: Service Date/Time: Friday, December 09, 2016 17:13 - CONCLUSION: 1. No evidence of DVT 2. Large complex mass in the pump to fossa characteristic of a hematoma. Joni Barfield MD Cervical Spine MRI 12/03/16 0000 Signed Impressions: Service Date/Time: Saturday, December 03, 2016 13:13 - CONCLUSION: Severely limited exam. I believe there is increased signal in the cervical cord mid C3 to mid C5. Ward Kim MD FACR Brain MRI 12/03/16 0000 Signed Impressions: Service Date/Time: Saturday, December 03, 2016 13:13 - CONCLUSION: 1. There is a small area of abnormal T2 signal in the left frontal cortex this is unchanged from the previous examination dated 11/26/16. This is nonspecific in appearance on the MRI. Differential considerations would be a small area of gliosis versus an old area of contusion. Follow up examination in 6 months to document stability would be warranted. 2. No findings to indicate acute cortical infarction are identified. Román Kim MD Gastrostomy Tube Placement 11/30/16 0000 Signed Impressions: Service Date/Time: Wednesday, November 30, 2016 12:22 - CONCLUSION: Uncomplicated gastrostomy tube placement as above. Jorge Jolly MD Liver Ultrasound 11/09/16 0000 Signed Impressions: Service Date/Time: Wednesday, November 09, 2016 13:58 - CONCLUSION: Sono dense liver without duct dilatation. 4 mm common duct. Ward Kim MD FACR Chest CT 11/06/16 0000 Signed Impressions: Service Date/Time: Sunday, November 06, 2016 11:24 - CONCLUSION: 1. Dense bilateral posterior lower lobe airspace consolidation consistent with aspiration versus less likely pneumonia. 2. Linear consolidation in the right middle lobe consistent with atelectasis versus aspiration. 3. Trace left and small right pleural effusions. 4. Support lines and tubes in good position. 5. Prominent coronary artery calcifications. Nico Vaughan MD Head CT 11/05/16 0000 Signed Impressions: Service Date/Time: Saturday, November 05, 2016 21:43 - CONCLUSION: 1. No acute intracranial abnormalities. Pansinus fluid opacification. Cristofer De Santiago MD Carotid Artery Ultrasound 10/25/16 0000 Signed Impressions: Service Date/Time: September 08:27 - CONCLUSION: Mild to moderate plaque in both carotid systems with less than 40%% diameter stenosis by velocity criteria. Jhonathan Dietz MD CT Angiography 10/25/16 0000 Signed Impressions: Service Date/Time: September 06:12 - CONCLUSION: 1. Negative for pulmonary embolism. 2. There is a fairly large area of masslike consolidation in the medial right lung involving posterior segment right upper lobe and medial aspect of right lower lobe. There is associated right hilar and mediastinal adenopathy measuring up to 2.1 cm. Differential diagnosis includes pneumonia or underlying lung neoplasm. Close followup imaging recommended after treatment for pneumonia, to assess for underlying mass. Cristofer De Santiago MD Physical Exam CONSTITUTIONAL/GENERAL: This is a morbidly obese patient, TUBES/LINES/DRAINS: SKIN: No jaundice, rashes, or lesions. Skin temperature appropriate. Not diaphoretic. NECK: trach in place CARDIOVASCULAR: Afib on the monitor tachycardia without murmurs, gallops, or rubs. No JVD. Peripheral pulses symmetric. RESPIRATORY/CHEST: Symmetric, unlabored respirations. coarse BS CT R with serous drainage GASTROINTESTINAL: Abdomen feels more tense, quite distended, no reaction to palpation. No hepato-splenomegaly, or palpable masses. No guarding. Bowel sounds present. GENITOURINARY: Without palpable bladder distension. Santiago catheter in place with clear yellow urine MUSCULOSKELETAL: Extremities without clubbing, cyanosis, + edema and indurated of L calf, NEUROLOGICAL: sedated PSYCHIATRIC: unable to assess Assessment & Plan Remarks PNA, Kleb pneumo - failrly sensitive - PSAE , Stenotrophomonas and Kleb in the sputum ? unclear is Steno malt is a coloniser vs a true pathogen, but improved after Bactrim was introdused ARDS Acute VDRF, tolerating weaning - sp trach R sided PTX sp CT Abx associated diarrhea, C.diff negative Abnormal UA, CANDIDURIA Persiastent leukocytosis and bandemia - stable to slowly improving New sepsis, suspect GI : acute acalculous cholecystits vs C.diff Critical, unstable REC's: - RO C.diff dc levaquine cont zosyn cont vanco for now - micafungin gen surg consult IR for biliary drain placement if OK with gen surg/confirmed acute cholecystitis dw Dr Jayson Montiel, GI Mariana Sofia RN, MD Dec 15, 2016 15:57
[2016-12-15] MEDS ORDERED: VANCOMYCIN INJ 1,250 MG in SODIUM CHLOR 0.9% 250 ML INJ 250 ML IV ONE (16:00)
[2016-12-15] MEDS ORDERED: MICAFUNGIN INJ 150 MG in SODIUM CHLORIDE 0.9% INJ 100 ML IV SCH (17:00)
[2016-12-15] MEDS ORDERED: SODIUM CHLOR 0.9% 1000 ML INJ 1,000 ML IV ONE (20:00)
[2016-12-15] MEDS ORDERED: MIDAZOLAM HCL 2 MG/2 ML VIAL IV ONE (20:00)
[2016-12-15 20:13] LABS: BASOPHIL % 0.2 % (0.0-2.0); EOSINOPHIL % 0.1 % (0.0-4.0); HEMATOCRIT 29.8 % (39.0-51.0); LYMPH % 10.2 % (9.0-44.0); LYMPHOCYTE # 1.8 TH/MM3 (1.0-4.8); MEAN CELL VOLUME 91.5 FL (80.0-100.0); MEAN CORPUSCULAR HEMOGLOBIN 30.5 PG (27.0-34.0); MEAN CORPUSCULAR HGB CONC 33.3 % (32.0-36.0); MONO % 4.9 % (0.0-8.0); NEUT % 84.6 % (16.0-70.0); PLATELET COUNT 357 TH/MM3 (150-450); RED BLOOD COUNT 3.25 MIL/MM3 (4.50-5.90); RED CELL DISTRIBUTION WIDTH 15.2 % (11.6-17.2); WHITE BLOOD COUNT 17.7 TH/MM3 (4.0-11.0)
[2016-12-15 20:24] LABS: HEMO FLAGS AUTO DIFF
[2016-12-15 20:48] LABS: ALKALINE PHOSPHATASE 131 U/L (45-117); ALT (GPT) 99 U/L (12-78); ANION GAP 7 MEQ/L (5-15); AST (GOT) 30 U/L (15-37); BICARBONATE 32.8 MEQ/L (21.0-32.0); BLOOD UREA NITROGEN 37 MG/DL (7-18); CHLORIDE 90 MEQ/L (98-107); GLOMERULAR FILTRATION RATE 366 ML/MIN (>89); SODIUM (NA) 130 MEQ/L (136-145); TOTAL BILIRUBIN ADULT 0.9 MG/DL (0.2-1.0)
[2016-12-15 20:53] LABS: METAMYELOCYTES 4 % (0-1); NEUTROPHIL # MANUAL DIFF 16.1 TH/MM3 (1.8-7.7); POLYS (SEG NEUTROPHILS) 87 % (16-70); SCAN/DIFF FINAL DIFF MANUAL; WBC DIFF SAMPLE 100
[2016-12-15] MEDS: ESCITALOPRAM OXALATE 10 MG TAB PO SCH (21:05)
[2016-12-15 21:33] LABS: C. DIFF EPI 027 PRESUMPTIVE NEGATIVE (NEGATIVE)
[2016-12-16] VITALS (16 sets, daily range): BP systolic 111–125; BP diastolic 62–78; PULSE 62–90; RESP 17–30; TEMP 97.2–98.4; O2SAT 95–100
[2016-12-16] MEDS: INSULIN NovoLIN REGULAR SUPPLEMENTAL SCALE SQ SCH ×4 (02:00→20:00)
[2016-12-16] MEDS: RESP: ALBUTEROL 2.5 MG/3 ML NEB (PRN) NEB ×2 (02:59→07:17)
[2016-12-16] MEDS: PIPERACIL-TAZO 4.5 GM PREMIX 100 ML IV SCH ×4 (03:00→22:07)
[2016-12-16] MEDS: oxyCODONE HCL ORAL CONC 5 MG/0.25 ML SYRINGE PEG SCH ×4 (04:00→22:08)
[2016-12-16] MEDS: CHLORHEXIDINE GLUCONATE 2 % 1 PACK (2 CLOTHS) TOP SCH (04:00)
[2016-12-16 05:15] LABS: AUTOMATED NEUTROPHIL # 14.6 TH/MM3 (1.8-7.7); BASOPHIL # 0.1 TH/MM3 (0-0.2); BASOPHIL % 0.4 % (0.0-2.0); EOSINOPHIL % 0.1 % (0.0-4.0); HEMATOCRIT 29.7 % (39.0-51.0); LYMPH % 10.6 % (9.0-44.0); LYMPHOCYTE # 1.9 TH/MM3 (1.0-4.8); MEAN CELL VOLUME 92.7 FL (80.0-100.0); MEAN CORPUSCULAR HEMOGLOBIN 30.7 PG (27.0-34.0); MEAN CORPUSCULAR HGB CONC 33.1 % (32.0-36.0); NEUT % 82.9 % (16.0-70.0); PLATELET COUNT 350 TH/MM3 (150-450); RED CELL DISTRIBUTION WIDTH 15.9 % (11.6-17.2); WHITE BLOOD COUNT 17.6 TH/MM3 (4.0-11.0)
[2016-12-16 05:34] LABS: ANION GAP 9 MEQ/L (5-15); AST (GOT) 27 U/L (15-37); BICARBONATE 32.5 MEQ/L (21.0-32.0); BLOOD UREA NITROGEN 32 MG/DL (7-18); CHLORIDE 92 MEQ/L (98-107); GLOMERULAR FILTRATION RATE 468 ML/MIN (>89); POTASSIUM 3.7 MEQ/L (3.5-5.1); SODIUM (NA) 133 MEQ/L (136-145)
[2016-12-16 05:37] LABS: ALKALINE PHOSPHATASE 136 U/L (45-117); ALT (GPT) 93 U/L (12-78)
[2016-12-16 05:46] LABS: HEMO FLAGS AUTO DIFF
[2016-12-16 07:16] LABS: BANDS 13 % (0-6); MYELOCYTES 3 % (0-0); NEUTROPHIL # MANUAL DIFF 16.2 TH/MM3 (1.8-7.7); POLYS (SEG NEUTROPHILS) 76 % (16-70); WBC DIFF SAMPLE 100
[2016-12-16 07:17] LABS: PLATELET ESTIMATE SMEAR NORMAL (NORMAL); PLATELET MORPHOLOGY NORMAL (NORMAL); SCAN/DIFF FINAL DIFF MANUAL
[2016-12-16] MEDS: RESP: BUDESONIDE 0.5 MG/2 ML NEB NEB SCH ×2 (07:17→21:17)
[2016-12-16] MEDS: CHLORHEXIDINE 0.12% (ORAL KIT) 15 ML CUP MT SCH ×2 (08:00→22:05)
--- NOTE | 2016-12-16 08:52 | HHI.GIFU ---
Subjective Remarks Lethargic. Has had multiple brown bowel movements. (Edyta Brannon) Objective Vitals I&O Vital Signs Date Time Temp Pulse Resp B/P (MAP) Pulse Ox O2 Delivery O2 Flow Rate FiO2 12/16/16 07:20 96 50 12/16/16 06:00 73 12/16/16 04:05 96 50 12/16/16 04:00 97.4 71 18 124/75 (91) 97 12/16/16 04:00 100 12/16/16 04:00 71 12/16/16 02:00 88 12/16/16 00:00 97.2 90 18 111/62 (78) 95 12/16/16 00:00 90 12/16/16 00:00 100 12/15/16 23:45 100 60 12/15/16 22:00 87 12/15/16 20:25 98 60 12/15/16 20:00 144 12/15/16 20:00 97.1 144 17 103/68 (80) 99 12/15/16 20:00 100 12/15/16 18:00 143 18 102/57 (72) 97 12/15/16 18:00 143 12/15/16 17:30 143 19 91/52 (65) 96 12/15/16 17:30 143 12/15/16 17:00 142 16 99/62 (74) 94 12/15/16 17:00 142 12/15/16 16:30 144 12/15/16 16:30 144 16 106/60 (75) 97 12/15/16 16:00 149 20 130/69 (89) 95 12/15/16 16:00 149 12/15/16 16:00 60 12/15/16 15:30 111 12/15/16 15:03 104 12/15/16 14:29 101 12/15/16 14:08 93 12/15/16 14:05 94 12/15/16 14:02 94 12/15/16 14:00 93 12/15/16 13:28 137 12/15/16 13:28 137 34 69/39 (49) 97 12/15/16 13:25 134 37 83/52 (62) 96 12/15/16 13:25 134 12/15/16 13:23 135 12/15/16 13:23 135 23 80/64 (69) 97 12/15/16 13:20 134 12/15/16 13:20 134 24 67/49 (55) 97 12/15/16 13:18 134 23 66/46 (53) 97 12/15/16 13:18 134 12/15/16 13:15 135 12/15/16 13:15 135 24 61/43 (49) 96 12/15/16 13:13 137 12/15/16 13:13 137 30 62/39 (47) 96 12/15/16 13:12 136 20 60/39 (46) 96 12/15/16 13:12 136 12/15/16 13:00 102 12/15/16 13:00 102 45 71/44 (53) 96 12/15/16 12:55 96 60 12/15/16 12:32 131 22 88/59 (69) 96 12/15/16 12:32 131 12/15/16 12:25 116 23 78/57 (64) 96 12/15/16 12:25 116 12/15/16 12:08 101 31 79/48 (58) 94 12/15/16 12:08 101 12/15/16 12:01 105 37 79/54 (62) 95 12/15/16 12:01 105 12/15/16 12:00 101 43 93 12/15/16 12:00 100 12/15/16 12:00 101 12/15/16 11:13 134 22 114/74 (87) 12/15/16 11:13 134 12/15/16 11:00 133 12/15/16 11:00 133 16 108/62 (77) 99 12/15/16 10:47 132 12/15/16 10:47 132 25 102/66 (78) 100 12/15/16 10:30 100 100 12/15/16 10:00 143 12/15/16 10:00 143 18 96 12/15/16 09:52 142 12/15/16 09:52 142 32 94/66 (75) 95 I/O 12/15/16 12/15/16 12/15/16 12/16/16 12/16/16 12/16/16 07:00 15:00 23:00 07:00 15:00 23:00 Intake Total 250 ml Output Total 2100 ml 300 ml Balance -1850 ml -300 ml IV Total 250 ml Output Urine Total 1200 ml 50 ml Stool Total 200 ml 100 ml Gastric Drainage Total 150 ml Emesis 700 ml Chest Tube Drainage Total 0 ml # Bowel Movements 3 Laboratory Laboratory Tests Test 12/15/16 14:20 12/15/16 15:08 12/15/16 19:32 12/16/16 03:47 Activated Partial Thromboplast Time 20.7 27.0 Stool C. difficile Toxin (PCR) NEGATIVE Stl C. difficile Toxin Epiderm 027 PRESUMPTIVE NEGATIVE White Blood Count 17.7 17.6 Red Blood Count 3.25 3.20 Hemoglobin 9.9 9.8 Hematocrit 29.8 29.7 Mean Corpuscular Volume 91.5 92.7 Mean Corpuscular Hemoglobin 30.5 30.7 Mean Corpuscular Hemoglobin Concent 33.3 33.1 Red Cell Distribution Width 15.2 15.9 Platelet Count 357 350 Mean Platelet Volume 6.9 6.9 Neutrophils (%) (Auto) 84.6 82.9 Lymphocytes (%) (Auto) 10.2 10.6 Monocytes (%) (Auto) 4.9 6.0 Eosinophils (%) (Auto) 0.1 0.1 Basophils (%) (Auto) 0.2 0.4 Neutrophils # (Auto) 15.0 14.6 Lymphocytes # (Auto) 1.8 1.9 Monocytes # (Auto) 0.9 1.1 Eosinophils # (Auto) 0.0 0.0 Basophils # (Auto) 0.0 0.1 CBC Comment AUTO DIFF AUTO DIFF Differential Total Cells Counted 100 100 Neutrophils % (Manual) 87 76 Lymphocytes % 6 5 Monocytes % 3 3 Neutrophils # (Manual) 16.1 16.2 Metamyelocytes 4 Differential Comment FINAL DIFF MANUAL FINAL DIFF MANUAL Blood Urea Nitrogen 37 32 Creatinine 0.26 0.21 Random Glucose 85 65 Total Protein 5.7 5.9 Albumin 2.5 2.5 Calcium Level 8.9 8.5 Alkaline Phosphatase 131 136 Aspartate Amino Transf (AST/SGOT) 30 27 Alanine Aminotransferase (ALT/SGPT) 99 93 Total Bilirubin 0.9 1.0 Sodium Level 130 133 Potassium Level 4.0 3.7 Chloride Level 90 92 Carbon Dioxide Level 32.8 32.5 Anion Gap 7 9 Estimat Glomerular Filtration Rate 366 468 Band Neutrophils % 13 Myelocytes 3 Platelet Estimate NORMAL Platelet Morphology Comment NORMAL Date/Time Source Procedure Growth Status 12/14/16 22:15 Blood Peripheral Aerobic Blood Culture - Preliminary NO GROWTH IN 1 DAY Resulted 12/14/16 22:15 Blood Peripheral Anaerobic Blood Culture - Preliminary NO GROWTH IN 1 DAY Resulted 11/08/16 14:15 Stool Stool Stool Occult Blood (TYLER) - Final HEMOCCULT NEGATIVE Complete 11/27/16 09:55 Sputum Endotracheal Gram Stain - Final Complete 11/27/16 09:55 Sputum Culture - Final Klebsiella Pneumoniae Stenotrophomonas Maltophilia Pseudomonas Aeruginosa Complete 12/14/16 18:10 Urine Catheterized Urine Urine Culture - Preliminary NO GROWTH IN 24 HOURS. Resulted Imaging Last Impressions Abdomen X-Ray 12/15/16 0600 Signed Impressions: Service Date/Time: Thursday, December 15, 2016 04:07 - CONCLUSION: Mild increased gaseous distention in the colon. Jhonathan Dietz MD Chest X-Ray 12/15/16 0400 Signed Impressions: Service Date/Time: Thursday, December 15, 2016 04:04 - CONCLUSION: 1. Right-sided chest tube with no pneumothorax. 2. Bibasilar hazy opacity remains. Jhonathan Dietz MD Abdomen/Pelvis CT 12/15/16 0000 Signed Impressions: Service Date/Time: Thursday, December 15, 2016 10:50 - CONCLUSION: 1. Distended bowel especially the small bowel and the cecum. This is nonspecific. A transition point is not seen. This could relate to ileus. Oral contrast does extend to the rectum. 2. Bibasilar areas of consolidation at the lung bases. There also is a possible small pneumothorax on the right. The patient does have a right chest tube in place. 3. G-tube. 4. Distended gallbladder. 5. Increased soft tissue density in the left lateral abdominal wall which could be from prior trauma or edema. Jayson Soto MD Lower Extremity Ultrasound 12/09/16 0000 Signed Impressions: Service Date/Time: Friday, December 09, 2016 17:13 - CONCLUSION: 1. No evidence of DVT 2. Large complex mass in the pump to fossa characteristic of a hematoma. Joni Barfield MD Cervical Spine MRI 12/03/16 0000 Signed Impressions: Service Date/Time: Saturday, December 03, 2016 13:13 - CONCLUSION: Severely limited exam. I believe there is increased signal in the cervical cord mid C3 to mid C5. Ward Kim MD FACR Brain MRI 12/03/16 0000 Signed Impressions: Service Date/Time: Saturday, December 03, 2016 13:13 - CONCLUSION: 1. There is a small area of abnormal T2 signal in the left frontal cortex this is unchanged from the previous examination dated 11/26/16. This is nonspecific in appearance on the MRI. Differential considerations would be a small area of gliosis versus an old area of contusion. Follow up examination in 6 months to document stability would be warranted. 2. No findings to indicate acute cortical infarction are identified. Román Kim MD Gastrostomy Tube Placement 11/30/16 0000 Signed Impressions: Service Date/Time: Wednesday, November 30, 2016 12:22 - CONCLUSION: Uncomplicated gastrostomy tube placement as above. Jorge Jolly MD Liver Ultrasound 11/09/16 0000 Signed Impressions: Service Date/Time: Wednesday, November 09, 2016 13:58 - CONCLUSION: Sono dense liver without duct dilatation. 4 mm common duct. Ward Kim MD FACR Chest CT 11/06/16 0000 Signed Impressions: Service Date/Time: Sunday, November 06, 2016 11:24 - CONCLUSION: 1. Dense bilateral posterior lower lobe airspace consolidation consistent with aspiration versus less likely pneumonia. 2. Linear consolidation in the right middle lobe consistent with atelectasis versus aspiration. 3. Trace left and small right pleural effusions. 4. Support lines and tubes in good position. 5. Prominent coronary artery calcifications. Nico Vaughan MD Head CT 11/05/16 0000 Signed Impressions: Service Date/Time: Saturday, November 05, 2016 21:43 - CONCLUSION: 1. No acute intracranial abnormalities. Pansinus fluid opacification. Cristofer De Santiago MD Carotid Artery Ultrasound 10/25/16 0000 Signed Impressions: Service Date/Time: September 08:27 - CONCLUSION: Mild to moderate plaque in both carotid systems with less than 40%% diameter stenosis by velocity criteria. Jhonathan Dietz MD CT Angiography 10/25/16 0000 Signed Impressions: Service Date/Time: September 06:12 - CONCLUSION: 1. Negative for pulmonary embolism. 2. There is a fairly large area of masslike consolidation in the medial right lung involving posterior segment right upper lobe and medial aspect of right lower lobe. There is associated right hilar and mediastinal adenopathy measuring up to 2.1 cm. Differential diagnosis includes pneumonia or underlying lung neoplasm. Close followup imaging recommended after treatment for pneumonia, to assess for underlying mass. Cristofer De Santiago MD Physical Exam HEENT: Normocephalic; atraumatic; no jaundice. CHEST: Tracheostomy to CPAP. Course breath sounds. Right side chest tube. CARDIAC: Irregular, Aflutter on monitor-heart rate 70 ABDOMEN: Soft, obese, mildly distended, bowel sounds hypoactive EXTREMITIES: Generalized edema. SENIOR CONSUMER INSIGHTS CONSULTANT: Lethargic (Edyta Brannon [employer]) Assessment and Plan Plan ASSESSMENT - Severe Ileus. KUB (12/14/16)---> Diffuse air distention of the colon and small bowel loops characteristic of a hypodynamic ileus. He has associated nausea, abdominal pain, bloating. He was started on Reglan and received GoLYTELY overnight on 12/14. 12/15--began vomiting and his G-tube was placed to suction. The nurse reports that she immediately got out 5 L of brown material his abdomen is soft and mildly distended since his G-tube was placed to suction. CT scan abdomen and pelvis (12/15/16)-- distended bowel especially the small bowel and the cecum (4.5 cm). This is nonspecific. A transition point is not seen. This could relate to ileus. Oral contrast does extend to the rectum. By basilar areas of consolidation at the lung bases. There also is a possibility small pneumothorax on the right. The patient does have a right chest tube in place. G-tube. Distended gallbladder. Increased soft tissue density in the left lateral abdominal wall which could be from prior trauma or edema. (+) large bowel movement- liquid brown. Nothing by mouth. Keep G-tube to LIWS. Continue Reglan - Dysphagia. S/P EGD (11/29/16)---> 1. Normal stomach mild esophagitis no transillumination or indentation seen-peg could not be placed endoscopically 2. Retroflexed views revealed a hiatal hernia. S/P G tube placement by IR (11/30/16). - Elevated LFTs, improved. AST 27, ALT 93, ALK PHOS 136 - Respiratory failure/ARDS/COPD/PNA. S/P tracheostomy, on CPAP. Prednisone, Nebs. - Sepsis/Leukocytosis. Sputum with Klebsiella pneumoniae, stenotrophomonas maltiophilia, PSAE. BCx (12/07) negative. WBC 17.6 today, repeat cultures no growth in 1 day (Blood, urine). - Atrial fibrillation/flutter. Currently in Aflutter, Rate 70. Amiodarone. BB. Heparin, digoxin - HTN, per attending. PLAN - Nothing by mouth - G-tube to low intermittent wall suction - Consider cholecystostomy tube placement by IR (per CCM) - Cont. Reglan - Supportive care - CCM following - ID following - Palliative care following - Further recommendations to follow based on results of above Patient seen and examined by Dr. Mota and myself and this note is written on his behalf. (Edyta Brannon) Physician Comments Patient seen and examined Agree with above Continue with current supportive care Monitor labs (Oscar Mota MD) Edyta Brannon Dec 16, 2016 08:52 Oscar Mota MD Dec 16, 2016 11:55
[2016-12-16] MEDS: SODIUM CHLORIDE 1 GRAM TAB PO SCH ×2 (09:00→22:07)
[2016-12-16] MEDS: SODIUM CHLORIDE 0.9% FLUSH 10 ML FLUSH IV FLUSH SCH (09:00)
[2016-12-16] MEDS: SODIUM CHLORIDE 0.9% FLUSH 10 ML FLUSH IVF SCH (09:00)
[2016-12-16] MEDS: ARTIFICIAL TEARS OPTH OINT 3.5 APPLIC/3.5 GM TUBO EACH EYE SCH ×2 (09:00→22:07)
[2016-12-16] MEDS: INSULIN DETEMIR 100 UNITS/ML VIAL SQ SCH ×2 (09:00→22:05)
[2016-12-16] MEDS: SODIUM CHLORIDE 0.9% FLUSH 10 ML FLUSH SCH ×2 (09:00→22:06)
--- NOTE | 2016-12-16 09:11 | HHI.IDPN ---
Subjective Subjective Remarks Better today off pressors Less of abd pain abd pain better - per pt seems much more awake, alert Antibiotics zosyn vanco micafungin Allergies: Coded Allergies: No Known Allergies (Unverified , 10/25/16) Objective . Vital Signs Date Time Temp Pulse Resp B/P (MAP) Pulse Ox O2 Delivery O2 Flow Rate FiO2 12/16/16 07:20 96 50 12/16/16 06:00 73 12/16/16 04:05 96 50 12/16/16 04:00 97.4 71 18 124/75 (91) 97 12/16/16 04:00 100 12/16/16 04:00 71 12/16/16 02:00 88 12/16/16 00:00 97.2 90 18 111/62 (78) 95 12/16/16 00:00 90 12/16/16 00:00 100 12/15/16 23:45 100 60 12/15/16 22:00 87 12/15/16 20:25 98 60 12/15/16 20:00 144 12/15/16 20:00 97.1 144 17 103/68 (80) 99 12/15/16 20:00 100 12/15/16 18:00 143 18 102/57 (72) 97 12/15/16 18:00 143 12/15/16 17:30 143 19 91/52 (65) 96 12/15/16 17:30 143 12/15/16 17:00 142 16 99/62 (74) 94 12/15/16 17:00 142 12/15/16 16:30 144 12/15/16 16:30 144 16 106/60 (75) 97 12/15/16 16:00 149 20 130/69 (89) 95 12/15/16 16:00 149 12/15/16 16:00 60 12/15/16 15:30 111 12/15/16 15:03 104 12/15/16 14:29 101 12/15/16 14:08 93 12/15/16 14:05 94 12/15/16 14:02 94 12/15/16 14:00 93 12/15/16 13:28 137 12/15/16 13:28 137 34 69/39 (49) 97 12/15/16 13:25 134 37 83/52 (62) 96 12/15/16 13:25 134 12/15/16 13:23 135 12/15/16 13:23 135 23 80/64 (69) 97 12/15/16 13:20 134 12/15/16 13:20 134 24 67/49 (55) 97 12/15/16 13:18 134 23 66/46 (53) 97 12/15/16 13:18 134 12/15/16 13:15 135 12/15/16 13:15 135 24 61/43 (49) 96 12/15/16 13:13 137 12/15/16 13:13 137 30 62/39 (47) 96 12/15/16 13:12 136 20 60/39 (46) 96 12/15/16 13:12 136 12/15/16 13:00 102 12/15/16 13:00 102 45 71/44 (53) 96 12/15/16 12:55 96 60 12/15/16 12:32 131 22 88/59 (69) 96 12/15/16 12:32 131 12/15/16 12:25 116 23 78/57 (64) 96 12/15/16 12:25 116 12/15/16 12:08 101 31 79/48 (58) 94 12/15/16 12:08 101 12/15/16 12:01 105 37 79/54 (62) 95 12/15/16 12:01 105 12/15/16 12:00 101 43 93 12/15/16 12:00 100 12/15/16 12:00 101 12/15/16 11:13 134 22 114/74 (87) 12/15/16 11:13 134 12/15/16 11:00 133 12/15/16 11:00 133 16 108/62 (77) 99 12/15/16 10:47 132 12/15/16 10:47 132 25 102/66 (78) 100 12/15/16 10:30 100 100 12/15/16 10:00 143 12/15/16 10:00 143 18 96 12/15/16 09:52 142 12/15/16 09:52 142 32 94/66 (75) 95 . Laboratory Tests Test 12/15/16 19:32 12/16/16 03:47 White Blood Count 17.7 TH/MM3 17.6 TH/MM3 Red Blood Count 3.25 MIL/MM3 3.20 MIL/MM3 Hemoglobin 9.9 GM/DL 9.8 GM/DL Hematocrit 29.8 % 29.7 % Mean Corpuscular Volume 91.5 FL 92.7 FL Mean Corpuscular Hemoglobin 30.5 PG 30.7 PG Mean Corpuscular Hemoglobin Concent 33.3 % 33.1 % Red Cell Distribution Width 15.2 % 15.9 % Platelet Count 357 TH/MM3 350 TH/MM3 Mean Platelet Volume 6.9 FL 6.9 FL Neutrophils (%) (Auto) 84.6 % 82.9 % Lymphocytes (%) (Auto) 10.2 % 10.6 % Monocytes (%) (Auto) 4.9 % 6.0 % Eosinophils (%) (Auto) 0.1 % 0.1 % Basophils (%) (Auto) 0.2 % 0.4 % Neutrophils # (Auto) 15.0 TH/MM3 14.6 TH/MM3 Lymphocytes # (Auto) 1.8 TH/MM3 1.9 TH/MM3 Monocytes # (Auto) 0.9 TH/MM3 1.1 TH/MM3 Eosinophils # (Auto) 0.0 TH/MM3 0.0 TH/MM3 Basophils # (Auto) 0.0 TH/MM3 0.1 TH/MM3 CBC Comment AUTO DIFF AUTO DIFF Differential Total Cells Counted 100 100 Neutrophils % (Manual) 87 % 76 % Lymphocytes % 6 % 5 % Monocytes % 3 % 3 % Neutrophils # (Manual) 16.1 TH/MM3 16.2 TH/MM3 Metamyelocytes 4 % Differential Comment FINAL DIFF MANUAL FINAL DIFF MANUAL Band Neutrophils % 13 % Myelocytes 3 % Platelet Estimate NORMAL Platelet Morphology Comment NORMAL Laboratory Tests Test 12/15/16 19:32 12/16/16 03:47 Blood Urea Nitrogen 37 MG/DL 32 MG/DL Creatinine 0.26 MG/DL 0.21 MG/DL Random Glucose 85 MG/DL 65 MG/DL Total Protein 5.7 GM/DL 5.9 GM/DL Albumin 2.5 GM/DL 2.5 GM/DL Calcium Level 8.9 MG/DL 8.5 MG/DL Alkaline Phosphatase 131 U/L 136 U/L Aspartate Amino Transf (AST/SGOT) 30 U/L 27 U/L Alanine Aminotransferase (ALT/SGPT) 99 U/L 93 U/L Total Bilirubin 0.9 MG/DL 1.0 MG/DL Sodium Level 130 MEQ/L 133 MEQ/L Potassium Level 4.0 MEQ/L 3.7 MEQ/L Chloride Level 90 MEQ/L 92 MEQ/L Carbon Dioxide Level 32.8 MEQ/L 32.5 MEQ/L Anion Gap 7 MEQ/L 9 MEQ/L Estimat Glomerular Filtration Rate 366 ML/MIN 468 ML/MIN Microbiology Date/Time Source Procedure Growth Status 12/14/16 22:15 Blood Peripheral Aerobic Blood Culture - Preliminary NO GROWTH IN 1 DAY Resulted 12/14/16 22:15 Blood Peripheral Anaerobic Blood Culture - Preliminary NO GROWTH IN 1 DAY Resulted 12/14/16 16:25 Blood Peripheral Aerobic Blood Culture - Preliminary NO GROWTH IN 1 DAY Resulted 12/14/16 16:25 Blood Peripheral Anaerobic Blood Culture - Preliminary NO GROWTH IN 1 DAY Resulted 12/14/16 18:10 Urine Catheterized Urine Urine Culture - Preliminary NO GROWTH IN 24 HOURS. Resulted Imaging Last Impressions Abdomen X-Ray 12/15/16 0600 Signed Impressions: Service Date/Time: Thursday, December 15, 2016 04:07 - CONCLUSION: Mild increased gaseous distention in the colon. Jhonathan Dietz MD Chest X-Ray 12/15/16 0400 Signed Impressions: Service Date/Time: Thursday, December 15, 2016 04:04 - CONCLUSION: 1. Right-sided chest tube with no pneumothorax. 2. Bibasilar hazy opacity remains. Jhonathan Dietz MD Abdomen/Pelvis CT 12/15/16 0000 Signed Impressions: Service Date/Time: Thursday, December 15, 2016 10:50 - CONCLUSION: 1. Distended bowel especially the small bowel and the cecum. This is nonspecific. A transition point is not seen. This could relate to ileus. Oral contrast does extend to the rectum. 2. Bibasilar areas of consolidation at the lung bases. There also is a possible small pneumothorax on the right. The patient does have a right chest tube in place. 3. G-tube. 4. Distended gallbladder. 5. Increased soft tissue density in the left lateral abdominal wall which could be from prior trauma or edema. Jayson Soto MD Lower Extremity Ultrasound 12/09/16 0000 Signed Impressions: Service Date/Time: Friday, December 09, 2016 17:13 - CONCLUSION: 1. No evidence of DVT 2. Large complex mass in the pump to fossa characteristic of a hematoma. Joni Barfield MD Cervical Spine MRI 12/03/16 0000 Signed Impressions: Service Date/Time: Saturday, December 03, 2016 13:13 - CONCLUSION: Severely limited exam. I believe there is increased signal in the cervical cord mid C3 to mid C5. Ward Kim MD FACR Brain MRI 12/03/16 0000 Signed Impressions: Service Date/Time: Saturday, December 03, 2016 13:13 - CONCLUSION: 1. There is a small area of abnormal T2 signal in the left frontal cortex this is unchanged from the previous examination dated 11/26/16. This is nonspecific in appearance on the MRI. Differential considerations would be a small area of gliosis versus an old area of contusion. Follow up examination in 6 months to document stability would be warranted. 2. No findings to indicate acute cortical infarction are identified. Román Kim MD Gastrostomy Tube Placement 11/30/16 0000 Signed Impressions: Service Date/Time: Wednesday, November 30, 2016 12:22 - CONCLUSION: Uncomplicated gastrostomy tube placement as above. Jorge Jolly MD Liver Ultrasound 11/09/16 0000 Signed Impressions: Service Date/Time: Wednesday, November 09, 2016 13:58 - CONCLUSION: Sono dense liver without duct dilatation. 4 mm common duct. Ward Kim MD FACR Chest CT 11/06/16 0000 Signed Impressions: Service Date/Time: Sunday, November 06, 2016 11:24 - CONCLUSION: 1. Dense bilateral posterior lower lobe airspace consolidation consistent with aspiration versus less likely pneumonia. 2. Linear consolidation in the right middle lobe consistent with atelectasis versus aspiration. 3. Trace left and small right pleural effusions. 4. Support lines and tubes in good position. 5. Prominent coronary artery calcifications. Nico Vaughan MD Head CT 11/05/16 0000 Signed Impressions: Service Date/Time: Saturday, November 05, 2016 21:43 - CONCLUSION: 1. No acute intracranial abnormalities. Pansinus fluid opacification. Cristofer De Santiago MD Carotid Artery Ultrasound 10/25/16 0000 Signed Impressions: Service Date/Time: September 08:27 - CONCLUSION: Mild to moderate plaque in both carotid systems with less than 40%% diameter stenosis by velocity criteria. Jhonathan Dietz MD CT Angiography 10/25/16 0000 Signed Impressions: Service Date/Time: September 06:12 - CONCLUSION: 1. Negative for pulmonary embolism. 2. There is a fairly large area of masslike consolidation in the medial right lung involving posterior segment right upper lobe and medial aspect of right lower lobe. There is associated right hilar and mediastinal adenopathy measuring up to 2.1 cm. Differential diagnosis includes pneumonia or underlying lung neoplasm. Close followup imaging recommended after treatment for pneumonia, to assess for underlying mass. Cristofer De Santiago MD Physical Exam CONSTITUTIONAL/GENERAL: This is a morbidly obese patient, TUBES/LINES/DRAINS: SKIN: No jaundice, rashes, or lesions. Skin temperature appropriate. Not diaphoretic. NECK: trach in place, site OK CARDIOVASCULAR: Afib on the monitor tachycardia without murmurs, gallops, or rubs. No JVD. Peripheral pulses symmetric. RESPIRATORY/CHEST: Symmetric, unlabored respirations. coarse BS CT R with serous drainage GASTROINTESTINAL: Abdomen is soft , less distended, some RUQ pain to palpation, no guarding or rebound. No hepato-splenomegaly, or palpable masses. No guarding. Bowel sounds present. Dignishiled in place with light brown liquid stool GENITOURINARY: Without palpable bladder distension. Santiago catheter in place with clear yellow urine MUSCULOSKELETAL: Extremities without clubbing, cyanosis, + edema, ecchymosis and indurated of L calf, improving NEUROLOGICAL: awake, alert, communicates and follows commands PSYCHIATRIC: calm Assessment & Plan Remarks PNA, Kleb pneumo - failrly sensitive - PSAE , Stenotrophomonas and Kleb in the sputum ? unclear is Steno malt is a coloniser vs a true pathogen, but improved after Bactrim was introdused ARDS Acute VDRF, tolerating weaning - sp trach R sided PTX sp CT Abx associated diarrhea, C.diff negative agasin 12/15 Abnormal UA, CANDIDURIA Persiastent leukocytosis and bandemia - stable to slowly improving New sepsis, suspect GI : acute acalculous cholecystits ? Critical, stable today REC's: Consider cholecystostomy tube placement by IR cont zosyn cont vanco for now cont micafungin gen surg consult IR for biliary drain placement if OK with gen surg/confirmed acute cholecystitis dw Mariana Goldberg RN, MD Dec 16, 2016 09:11
[2016-12-16] MEDS: HEPARIN SODIUM - SQ 10,000 UNITS/ML VIAL SQ SCH ×2 (10:33→22:06)
[2016-12-16] MEDS: LISINOPRIL 10 MG TAB PO SCH (10:33)
[2016-12-16] MEDS: FAMOTIDINE 20 MG TAB NG SCH ×2 (10:34→22:07)
[2016-12-16] MEDS: DIGOXIN 0.125 MG TAB PO SCH (10:34)
[2016-12-16] MEDS: AMIODARONE 200 MG TAB OG-TUBE SCH ×2 (10:34→22:07)
[2016-12-16] MEDS: predniSONE 20 MG TAB PO SCH (10:34)
[2016-12-16] MEDS: DILTIAZEM HCL 90 MG TAB PO SCH ×3 (12:00→18:00)
[2016-12-16] MEDS: METOPROLOL TARTRATE 50 MG TAB PO SCH ×3 (12:00→18:00)
[2016-12-16] MEDS: REMOVE OLD FENTANYL PATCH T-DERMAL SCH (14:00)
--- NOTE | 2016-12-16 15:02 | MB ---
cc: GALI RUANO M.D. DATE OF CONSULTATION: 12/16/2016. REASON FOR CONSULTATION: Consideration for cholecystostomy tube placement. HISTORY OF PRESENT ILLNESS: The patient is a 56-year a morbidly obese gentleman who was admitted at the end of September with respiratory failure secondary to severe COPD with sepsis. He was found to have gram-negative pneumonia and Candiduria. The patient has required tracheostomy placement and has had a large amount of output from the PEG tube with an ileus. Tube feeding was held and on CT scan a dilated gallbladder was seen. No stones were seen and no gallbladder wall thickening was noted. The patient's clinical status since yesterday has improved substantially. We have been asked to see the patient to consider cholecystostomy tube placement as part of his management. PHYSICAL EXAMINATION: GENERAL: Physical exam reveals a morbidly obese male who is lying in bed and is awake and alert and able to mouth responses to questions. VITAL SIGNS: Blood pressure 112/66, pulse 62, respirations 25-30, temperature 97 on 50% FIO2 temperature 98.2. The patient was not placed on C-PAP today. CHEST: Demonstrates occasional rhonchi. CARDIAC: Cardiac exam reveals regular rate and rhythm. ABDOMEN: Abdomen is soft with some tenderness in the lower abdomen bilaterally and around the PEG tube site; specifically, there is no pain whatsoever in the right upper quadrant. EXTREMITIES: The patient has bilateral edema with discoloration of the skin. I cannot palpate pulses in either foot, although he does have some capillary refill. He does not have any leg or foot pain. LABORATORY DATA: Laboratory values demonstrate WBCs of 17.6, platelets 350,000, hemoglobin 9.8. Chemistries: Potassium 3.7, sodium 133, BUN and creatinine 32 and 0.21. Liver function tests demonstrate AST of 27, ALT of 93, alkaline phosphatase 136, total bilirubin 1.0. IMAGING STUDIES: Pertinent imaging studies demonstrate CT scan performed yesterday which demonstrates a distended bowel, especially the cecum and small bowel, with no transition point, a distended gallbladder and increased soft tissue density in the left lateral abdominal wall. ASSESSMENT: Distended gallbladder with elevated WBCs but these are decreased from 21.3 on 12/14 down to 17.6 today. The patient does have a left shift; however, that is persistent. Given the patient's clinical status, I would not recommend he go down for cholecystostomy tube placement today. Would attempt to restart tube feeding as this would assist with a distended gallbladder and would likely resolve this issue. If he has continued ileus with a dilated cecum, GI consultation with a decompressive colonoscopy may be indicated. This may assist in resolving some of his problems. I have also increased in the frequency of Reglan and have asked the nurse to give him lactulose each day unless he develops diarrhea. We will follow with you. Thank you for allowing us the opportunity to care for him with you. MD ANAND Broussard/JOSÉ MIGUEL /2:36 PM /2:51 PM
--- NOTE | 2016-12-16 16:29 | HHI.CCPN ---
Subjective Remarks/Hospital Course 56-year-old very pleasant gentleman with past medical history of COPD, and hypertension presents complaining of shortness of breath and nausea, generalized fatigue and chills for 2 days. He thinks it has been from being out in the heat. Denies any fever, chest pain, vomiting, abdominal pain, focal weakness or numbness. In the emergency department his saturation was in mid 80s on arrival with auditory wheezing and tachypnea. He was placed on 4 liters of NC and saturating in the low 90. He does not use oxygen at home. He also mentioned 2 days ago, he came home and was sitting in a chair and was taking his shoes off when he passed out. States he woke up and was still on the chair. This has never happen before. 10/25: Patient intubated secondary to increasing oxygen requirements, altered mental status. Discussed with son. Somewhat hypertensive post intubation. 10/26: Placed on rotaprone bed last evening. Flolan initiated. Saturations improved. Afebrile. Remains on Nimbex drip. 10/27: T max 99.7. Tolerated on not prone position 2 hours yesterday. Tolerating trickle feeds. FiO2 down to 55% 10/28: Tmax 99.9. When unprone for chest x-ray this a.m. desaturated. Currently on 90% FiO2. Actually hypertensive. No bowel movements. Remains paralyzed 10/29: Remains intubated sedated on continuous Prone therapy Except for chest x- ray. Fever 100.8. Panculture requested. Zyvox added. Continue IV sedation with propofol and fentanyl and Versed, neuromuscular paralysis with Nimbex 10/30: Prone cycle changed to 8 hr prone, 1 hr supine from 10/29. Due to hypoxia will continue with same cycle today. Chest x-ray remains unchanged. Patient remains severely hypoxemic FiO2 at 75% PEEP at 16. WBC count worsened to 18. Remains neuromuscularly paralyzed. 10/31: Patient remains critically ill but stable. Oxygen saturation 95% on 55 of FiO2 and PEEP of 16. Reduce PEEP to 14, FiO2 to 50% and start weaning Flolan. Increase supine time to 4 hours, reduce Prone time to 6 hours 11/01: Patient remains intubated sedated critically ill on neuromuscular paralysis. FiO2 reduced to 50, I will attempt PEEP wean gradually to 12 today. Prone/supine cycles will be changed to 6 hours each 11/02: FiO2 remains at 50%, PEEP reduced from 14 to 12 today, TV increased to 600 and RR to 20, in anticipation of discontinuing prone therapy, which will be DCd today. Off Flolan for 2 days 11/03: off pronation. fio2 up to 65% , peep 12. agitation causing desaturation. minimal improvements. 11/04: good diuresis yesterday, but despite that, fio2 persists at 65% and spo2 decreasing to 91% today. no real improvements and some worsening of pulmonary function despite ongoing aggressive therapies. still not safe for SBT given hypoxia. also severely hypertensive this morning. 11/05: continues to diurese well and Cr still at baseline. fio2 at 90% however, and no clinical improvements in mental status or hypoxia. still unsafe for SBT given hypoxemia. off pathway. hypertension under much better control. poor neuro status is concerning. 11/06: Remains severely hypoxemic. FiO2 was 100% PEEP 14. I reduce FiO2 to 90% after increasing PEEP to 16. Developed a flutter with RVR overnight, currently on Cardizem drip. Unable to do SBT due to very high settings 11/07: Remains hypoxemic and but able to wean FiO2 down to 80% with PEEP of 16. Remains unresponsive on sedation. Unable to trach due to his high vent settings and high FiO2. Remains on Cardizem and 15 mg per hour, with rate controlled a flutter. We'll start by mouth Cardizem in an attempt to wean IV Cardizem 11/08: Remains critically ill hypoxic but FiO2 now weaned to 60%, PEEP remains at 16. Very heavily sedated no withdrawal to pain. Will hold all continuos sedation. Sputum culture with Klebsiella sensitive to Rocephin. A flutter persistent, will start IV heparin 11/09 Patient is sedated with Diprivan and intubated, On Cardizem drip 15mg/hr for Aflutter. Heparin drip stated yesterday. 11/10 Patient remains sedated and intubated. On Heparin drip. Persistent fever with Tmax 102.5. ETT was replaced yesterday. 11/11 Patient was placed on Cardizem and amio drips overnight for Afib with RVR. Sedated with Diprivan and intubated. On Heparin drip. T;99.3 this morning. 11/12 Patient remains intubated and sedated with Diprivan. On Cardizem drip 15mg/ hr. Afebrile, Tmax 100.6 11/13 Patient is sedate with Diprivan and intubated. In Afib with RVR now on Amio drip. Tmax 100,4 11/14 Remains intubated sedated with propofol and fentanyl. Afib rate controlled , remains on amiodarone and Cardizem gtt. Fio2 remains high at 70%, PEEP 12. CXR persistent bibasilar infiltrates/effusion 11/15: Currently sedated with propofol and fentanyl drips. Currently in A. fib/ flutter on amiodarone drip and Cardizem drip. PEEP increased to 14. FiO2 65. 11/16: Tmax 100.1. Patient more alert and tachycardic this AM. Adding midazolam gtt for sedation and currently tolerating tube feeding. Positive BM. PEEP to 12. FiO2 75% 11/17: Afebrile. FiO2 down to 60%. PEEP set 12. Multiple tracheostomy hopefully on Saturday. Heart rate better control. 11/18: Afebrile. Discontinuing amiodarone drip today and switching to oral. FiO2 between 60 and 70%. Restarting epoprostenol in attempt to get FiO2 down to 50% for tracheostomy tomorrow 11/19 No events overnight. Sedated with Diprivan, Fentanyl and versed. Still requiring high O2 - on PRVC with PEEP;12 and FIO2 70%. Afebrile. 11/20 Patient remains sedated with Diprivan, versed, Fentanyl and intubated. On PRVC with PEEP: 12, FIO2 50% , sats 88-90%. On Heparin drip. 11/21: Tmax 99.4. Tolerating tube feeds. Remains on heparin drip. FiO2 down to 55%. PEEP of 10. Eyes open blinks spontaneously. Does squeeze and weakly on left side with encouragement 11/22: Intubated heavily sedated. FiO2 50%, remains on Flolan. PEEP 10. Bumex 1 mg 1 and Diamox 500 mg 1 IV. She will negative balance. Heparinized tube feeds on hold for tracheostomy today at 12. Remains in atrial flutter 11/23 Patient remains sedated with Diprivan, Fentanyl, Versed and intubated. On Heparin drip. For CT guided thoracentesis today. On APRV 11/24 Patient remains sedated and intubated. 20Fr CT placed yesterday for right sided PTX. Spiked fever with T 101.6. Remains on Heparin drip. 11/25 Patient remains intubated with Diprivan, fentanyl and intubated. On PRVC with PEEP: 10, FIO2 50%. Afebrile. 11/26 Patient is sedated with Diprivan, Fentanyl and intubated. Afebrile. On Heparin drip. On PRVC with PEEP: 10, FIO2 60% 11/27 Patient is scheduled for trach in OR today. Sedated and intubated. Heparin drip is off for trach. 11/28 Patient s/p trach yesterday. Sedated with Diprivan and Fentanyl. Afebrile. On PRVC with PEEP; 10 and FIO2 50% 11/29 No events overnight. Sedated and on ventilator via trach. For PEG tube placement today. Heparin drip on hold. 11/30: Currently afebrile. MAXIMUM TEMPERATURE 100. Positive BM via fecal containing device. Tube feeds on hold secondary to plan PEG tube placement today. Heparin drip on hold as well. 12/01: Status post PEG tube placement yesterday per IR. Heparin drip and tube feeds restarted today. Restarting insulin detemir. Awake and alert and weakly follows commands on sedation 12/02: Tmax 99.3. Tube feeds restarted and tolerating. Awake and alert and weakly follows commands. Plan for MRI brain/C-spine a.m. 12/03. 12/03: Patient is awake. Tolerating PRVC, very weakly wiggling cedric toes. MRI today 12/04/16: Tolerated CPAP with high settings yesterday for several hours 15 over 5. Becomes tachypneic and pressure support wean. MRI of the C-spine shows increased signal, no cord compression. Discussed with Dr. Riggins. He is requesting flexion extension films of C spine. 12/05/16: Desaturated on CPAP today. Now on full vent support with 50% FiO2. Continues to have functional quadriparesis. Dr Riggins reviewed MRI spine- he is not sure about increased signal in cord, but there could be cervical hyperextension injury, from intubation. 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 Cannot do cspine extension/flexion films. Repeat MRI c- spine in a few weeks 12/06/16: Patient remains on vent, placed on CPAP 11/29 now, on 50% FiO2. No improvement in neuro exam patient is awake. Able to minimally shrug shoulders. Continues to behave like functional quadriplegia 12/07/16: Tolerated CPAP approximately 6 hours yesterday but did not tolerate TPs. Having anxiety and some frustration due to neuromuscular weakness. I will add Lexapro. Give Bumex 1 mg x1, CXR shows pleural effusions. 12/08: On 11/29 PS since AM. CBC chest x-ray stable. Lexapro added yesterday for depression. Urine output 3.5 L in 24 hours 12/09: Tolerated CPAP well yesterday tolerated TPs for 2 hours but failed to CPAP today due to hypoxia and tachycardia. Currently on PRVC received metoprolol and fentanyl push with improved heart rate 12/10: Patient is tolerating CPAP today. Left popliteal fossa hematoma, large on left lower extremity ultrasound. Heparin and Coumadin placed on hold will get orthopedic consult 12/11: Slightly improved power of LE, unchanged on upper. L calf remains tense, but pulses are palpable. Holding anticoagulation 12/12: Tolerating CPAP 09/07. Slight improvement in muscle strength. Heparin remains on hold 12/13: Heparin remains on hold. No increase in hematoma clinically. Tolerating CPAP. 12/14: Patient complains of not feeling well today. Wbc count increased to 21, 000. KUB shows ileus. Hold tube feeds, Reglan 10 mg IV every 8 hours, send panculture 12/15: Large amount of output from the PEG tube and intermittent wall suction. Stat CT of the abdomen pelvis did not show any perforation or evidence of colitis. Shows ileus. Keep nothing by mouth IV. GI is following. CT chest shows tiny anterior pneumothorax. More Lethargic today, white count was 21,000 yesterday. Hypotensive systolic blood pressure in 70s. Probable severe sepsis/ septic shock. Start Zosyn and Levaquin and single dose of vancomycin. Check C Diff 12/16: General surgery does not recommend gallbladder drainage at this time. WBC count decreasing on Zosyn vancomycin and micafungin. 17.6 today. F/U KUB in am. GI ID following Objective Vital Signs Date Time Temp Pulse Resp B/P (MAP) Pulse Ox O2 Delivery O2 Flow Rate FiO2 12/16/16 12:00 50 12/16/16 12:00 98.2 62 30 112/66 (81) 97 12/13/16 10:40 T-piece 7.00 Intake and Output 12/16/16 12/16/16 12/17/16 08:00 16:00 00:00 Output Total 300 ml Balance -300 ml Result Diagram: 12/16/16 0347 12/16/16 0347 Other Results Microbiology Date/Time Source Procedure Growth Status 12/14/16 18:10 Urine Catheterized Urine Urine Culture - Final NO GROWTH IN 48 HOURS. Complete Imaging Last Impressions Gastrostomy Tube Placement 11/30/16 0000 Signed Impressions: Service Date/Time: Wednesday, November 30, 2016 12:22 - CONCLUSION: Uncomplicated gastrostomy tube placement as above. Jorge Jolly MD Chest X-Ray 11/30/16 0000 Signed Impressions: Service Date/Time: Wednesday, November 30, 2016 03:55 - CONCLUSION: Progression in the bilateral pleural effusions and bibasilar pulmonary infiltrates. Fito Mar Jr., MD Abdomen X-Ray 11/30/16 0000 Signed Impressions: Service Date/Time: Wednesday, November 30, 2016 09:43 - CONCLUSION: 1. No definite nasogastric catheter is identified. Repeat examination centered higher in the thorax may be performed for more definitive evaluation. Consider repositioning the nasogastric catheter prior to repeat imaging. Nico Vaughan MD Brain MRI 11/26/16 0000 Signed Impressions: Service Date/Time: Saturday, November 26, 2016 19:52 - CONCLUSION: 1. Small focal signal abnormality in the superior medial left frontal lobe. This is nonspecific. This could be the sequela from prior insult such as a contusion or small infarct. An acute infarct is not seen. A small underlying lesion could have a similar appearance. One could perform a contrast-enhanced study to determine if there is any enhancement associated with this region. 2. There are a few scattered minimal punctate areas of demyelination seen not expected for the patient's age. 3. Sinus disease. Jayson Soto MD Lower Extremity Ultrasound 11/09/16 0000 Signed Impressions: Service Date/Time: Wednesday, November 09, 2016 14:13 - CONCLUSION: Normal examination. Jayson Manning MD Liver Ultrasound 11/09/16 0000 Signed Impressions: Service Date/Time: Wednesday, November 09, 2016 13:58 - CONCLUSION: Sono dense liver without duct dilatation. 4 mm common duct. Ward Kim MD FACR Chest CT 11/06/16 0000 Signed Impressions: Service Date/Time: Sunday, November 06, 2016 11:24 - CONCLUSION: 1. Dense bilateral posterior lower lobe airspace consolidation consistent with aspiration versus less likely pneumonia. 2. Linear consolidation in the right middle lobe consistent with atelectasis versus aspiration. 3. Trace left and small right pleural effusions. 4. Support lines and tubes in good position. 5. Prominent coronary artery calcifications. Nico Vaughan MD Head CT 11/05/16 0000 Signed Impressions: Service Date/Time: Saturday, November 05, 2016 21:43 - CONCLUSION: 1. No acute intracranial abnormalities. Pansinus fluid opacification. Cristofer De Santiago MD Carotid Artery Ultrasound 10/25/16 0000 Signed Impressions: Service Date/Time: September 08:27 - CONCLUSION: Mild to moderate plaque in both carotid systems with less than 40%% diameter stenosis by velocity criteria. Jhonathan Dietz MD CT Angiography 10/25/16 0000 Signed Impressions: Service Date/Time: September 06:12 - CONCLUSION: 1. Negative for pulmonary embolism. 2. There is a fairly large area of masslike consolidation in the medial right lung involving posterior segment right upper lobe and medial aspect of right lower lobe. There is associated right hilar and mediastinal adenopathy measuring up to 2.1 cm. Differential diagnosis includes pneumonia or underlying lung neoplasm. Close followup imaging recommended after treatment for pneumonia, to assess for underlying mass. Cristofer De Santiago MD Objective Remarks GENERAL: 56-year-old male, critically ill currently on PRVC via tracheostomy SKIN: Warm and dry. Positive intertrigo HEAD: Atraumatic. Normocephalic. EYES: Pupils equal and round about 3 mm bilaterally and reactive. ENT: No nasal bleeding or discharge. NECK: Trachea midline. No JVD. Tracheostomy site has some yellow secretions surrounding CARDIOVASCULAR: In atrial flutter. SBY improved today. Heart Sounds are distant RESPIRATORY: Bilateral mild expiratory wheezes and coarse bilateral anterior rhonchi appreciated. GASTROINTESTINAL: Abdomen soft, obese, distended. MUSCULOSKELETAL: Extremities with trace lower extremity. No obvious deformities. Left calf tense, but no evidence of compartment syndrome NEUROLOGICAL: Eyes are open. Moves fingers and toes. Shrugs shoulders Urinary Catheter: Yes Assessment to: Continue Date of Insertion: Nov 16, 2016 Line: PICC Side: Left Location: Antecubital A/P Assessment and Plan Neuro/Psych: Functional quadriparesis Metabolic encephalopathy CIM/SHEFALI s/p Neuromuscular paralysis for Prone therapy Syncope Depression Encephalopathy most likely secondary to sepsis MRI C-spine showing increased signals C3-C5 region. Dr Riggins reviewed MRI spine- not sure about increased signal in cord, could be cervical hyperextension injury, from intubation according to him. Unable to do flexion- extension films of the C-spine (trached patient). Repeat MRI c-spine probably next week. 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 DCd Fentanyl patch due to ileus. Hold liquid oxycodone 5 mg every 6 per tube. prn hydromorphone, fentanyl for breakthrough. Haloperidol 5mg iv q4h prn for agitation. Lexapro 10 mg qhs from 12/07/16. MRI brain 11/26: Small focal signal abnormality in the superior medial left frontal lobe. Could be sequela from prior insult such as a contusion or small infarct. No acute infarct MRI brain 12/[address] on admission revealed no acute intracranial findings, CT brain 11/05- no acute findings. opacification of sinuses. EEG 11/20: No seizure activity. EEG 11/09: severe encephalopathy PT/OT for range of motion, up to stretcher chair as tolerated CV: Hypotension-resolved Atrial fib/ flutter with RVR Hypertension, now intermittently hypotensive s/p 2 L normal saline bolus,and Levophed to maintain map above 65, 12/15/16. Levophed OFF now On Amiodarone 200mg Q12, Digoxin 0.125 mg daily (Dig. level 0.5 on 10/7). Holding PO Diltiazem 90 mg PO q6hr, metoprolol 50mg Q6 due to hypotension DCd CLONIDINE 12/06/16 Coumadin and heparin 12/10 held due to left popliteal fossa hematoma. Placed on sq heparin for DVT prophylaxis Echo 10/25 EF 60-65%. Repeat echo with bubble study: 11/22: No shunt seen Resp: Acute, now chronic hypoxemic Respiratory failure s/p trach 11/27 Spontaneous Right sided PTX secondary to barotrauma COPD exacerbation Pneumonia most likely community-acquired Obesity hypoventilation syndrome Tobacco use disorder On PRVC FIO2 50%. Albuterol/ipratropium aerosols every 4 hours of albuterol aerosols every 2 hours PRN. Ventilator bundle Gross tolerating CPAP until Thursday 12/14 prior to developing ileus Budesonide 0.5 mg/2 mL aerosols twice a day. Prednisone 20 mg daily s/p trach 11/[address] Martin #8 [place]. Pulmonary/Dr. Wynne has followed s/p 20Fr CT placed for right PTX 11/23, monitor CT drainage. Leave CT in place until vent settings, hypoxia improved, may have tiny apical pneumo on CT CT pulmonary angio revealed no pulmonary embolus. Masslike consolidation in the posterior right upper lobe and medial right lower lobe. Lymphadenopathy to 1 cm right hilum and subcarinal. Atelectasis left lower lobe. Discontinued Prone therapy 11/02/16. GI: Ileus Morbid Obesity Elevated LFT's- now within normal. PEG tube placement 11/30. US liver: No ductal dilatation Start trickle feed per general surgery and GI Reglan IV. No Cholecystostomy tube recommended by Dr. Nguyen Famotidine 20 milligrams mg twice a day for GI prophylaxis /renal: Hyponatremia Monitor renal function, I/O's, electrolytes replacement per protocol. Endo: Hyperglycemia SSI Q6h with Regular Insulin mild protocol for glycemic control. Previously insulin detemir 62 units twice a day. Restarted 15 units twice a day 12/01. Adequate blood sugar control . Heme: Normocytic anemia Leukocytosis L popliteal fossa hematoma Monitor CBC, coags- Heparin/Coumadin on hold Monitor closely for compartment syndrome ID: Severe sepsis HAP Worsening leukocytosis Placed back on Zosyn vancomycin and micafungin by ID, WBC trending down ID Amanda Haas, F/U ríos culture, C Diff ABX completed 12/11. (piperacillin/tazobactam and sulfamethoxazole/ trimethoprim 800/160 2 tablets 3 times a day) Sputum: Klebsiella, Stenotrophomonas and Pseudomonas 11/27 Sputum cx 11/23: Kleb, Pseudomonas, s/p (ceftriaxone and fluconazole course). ID is following-Dr. Patel s/p ceftriaxone 11/02-11/09 for Enterobacter pneumonia. Repeat sputum Klebsiella sensitive to Rocephin 10/29/16-Enterobacter in sputum, 11/06/16, 11/10 sputum- Klebsiella Urine Legionella and pneumococcal antigens negative and influenza negative C-diff PCR is negative Access RUE PICC placed 11/05 through 11/15 replaced 11/16 with left upper extremity PICC Prophylaxis GI, famotidine. DVT - IV heparin gtt, Coumadin DCd 12/10 due to left popliteal hematoma, O Heparin 5000 U q12 sq 11/09 Doppler US LE negative for DVT Palliative care is following Critical Care: CCT 30 min Roro Tyler MD Dec 16, 2016 16:29
[2016-12-16] MEDS: METOCLOPRAMIDE HCL 10 MG/2 ML VIAL IV SCH (18:00)
[2016-12-16] MEDS: ESCITALOPRAM OXALATE 10 MG TAB PO SCH (22:07)
[2016-12-17] VITALS (20 sets, daily range): BP systolic 97–139; BP diastolic 51–79; PULSE 57–75; RESP 16–50; TEMP 97.1–99.2; O2SAT 95–100
[2016-12-17] MEDS: INSULIN NovoLIN REGULAR SUPPLEMENTAL SCALE SQ SCH ×4 (02:00→20:00)
[2016-12-17] MEDS: PIPERACIL-TAZO 4.5 GM PREMIX 100 ML IV SCH ×4 (03:34→20:24)
[2016-12-17] MEDS: CHLORHEXIDINE GLUCONATE 2 % 1 PACK (2 CLOTHS) TOP SCH (04:00)
[2016-12-17] MEDS: oxyCODONE HCL ORAL CONC 5 MG/0.25 ML SYRINGE PEG SCH ×4 (04:00→20:25)
[2016-12-17] MEDS: DEXTROSE 50% IN WATER 50 ML VIAL(D50) IV PUSH PRN ×2 (04:00→04:15)
[2016-12-17 04:38] LABS: ALKALINE PHOSPHATASE 114 U/L (45-117); ALT (GPT) 70 U/L (12-78); ANION GAP 10 MEQ/L (5-15); AST (GOT) 21 U/L (15-37); BLOOD UREA NITROGEN 27 MG/DL (7-18); CHLORIDE 92 MEQ/L (98-107); GLOMERULAR FILTRATION RATE 597 ML/MIN (>89); MAGNESIUM 2.2 MG/DL (1.5-2.5); POTASSIUM 3.6 MEQ/L (3.5-5.1); SODIUM (NA) 132 MEQ/L (136-145)
[2016-12-17 05:52] LABS: AUTOMATED NEUTROPHIL # 11.3 TH/MM3 (1.8-7.7); BASOPHIL % 0.4 % (0.0-2.0); EOSINOPHIL % 0.3 % (0.0-4.0); HEMATOCRIT 27.2 % (39.0-51.0); LYMPH % 9.5 % (9.0-44.0); LYMPHOCYTE # 1.2 TH/MM3 (1.0-4.8); MEAN CELL VOLUME 93.1 FL (80.0-100.0); MEAN CORPUSCULAR HEMOGLOBIN 30.8 PG (27.0-34.0); MEAN CORPUSCULAR HGB CONC 33.1 % (32.0-36.0); MONO % 3.1 % (0.0-8.0); NEUT % 86.7 % (16.0-70.0); PLATELET COUNT 348 TH/MM3 (150-450); RED BLOOD COUNT 2.93 MIL/MM3 (4.50-5.90); RED CELL DISTRIBUTION WIDTH 15.6 % (11.6-17.2)
--- NOTE | 2016-12-17 05:55 | RADRPT ---
EXAM DATE/TIME: 12/17/2016 04:06 [facility] COMPARISON: ABDOMEN KUB ONLY, December 15, 2016, 4:07. INDICATIONS : Abdominal distention. MEDICAL HISTORY : Hypercholesterolemia. Hypertension Chronic obstructive pulmonary disease. SURGICAL HISTORY : None. ENCOUNTER: Subsequent ACUITY: 2 months PAIN SCORE: Non-responsive. LOCATION: Bilateral abdomen FINDINGS: Supine view of the abdomen was performed. Gaseous distention of multiple bowel loops. Percutaneous ga strostomy tube. No abnormal masses, calcifications, or organomegaly is seen. The osseous structures are unremarkable. CONCLUSION: 1. Gaseous distention of multiple bowel loops. 2. Percutaneous gastrostomy tube. Javier Ulloa MD on December 17, 2016 at 5:53 Board Certified Radiologist. This report was verified electronically.
[2016-12-17] MEDS: METOCLOPRAMIDE HCL 10 MG/2 ML VIAL IV SCH ×5 (06:00→23:05)
[2016-12-17] MEDS: DILTIAZEM HCL 90 MG TAB PO SCH ×5 (06:00→23:04)
[2016-12-17] MEDS: METOPROLOL TARTRATE 50 MG TAB PO SCH ×5 (06:00→23:04)
[2016-12-17 06:02] LABS: APTT (PATIENT) 28.7 SEC (24.3-30.1)
--- NOTE | 2016-12-17 06:15 | RADRPT ---
EXAM DATE/TIME: 12/17/2016 04:03 [facility] COMPARISON: CHEST SINGLE AP, December 15, 2016, 4:04. INDICATIONS : Shortness of breath, possible pulmonary disease. MEDICAL HISTORY : Hypercholesterolemia. Hypertension Chronic obstructive pulmonary disease. SURGICAL HISTORY : None. ENCOUNTER: Subsequent ACUITY: 2 months PAIN SCORE: Non-responsive. LOCATION: Bilateral chest FINDINGS: A single view of the chest demonstrates bibasilar patchy opacities. Right-sided chest tube without pn eumothorax. Tracheostomy tube and left sided PICC line are stable in position. Heart is borderline pr ominent. Osseous structures are intact. CONCLUSION: Worsening bibasilar patchy opacities. Right-sided chest tube without pneumothorax. Javier Ulloa MD on December 17, 2016 at 6:13 Board Certified Radiologist. This report was verified electronically.
[2016-12-17 06:22] LABS: HEMO FLAGS AUTO DIFF
[2016-12-17] MEDS: RESP: BUDESONIDE 0.5 MG/2 ML NEB NEB SCH (07:18)
[2016-12-17 08:08] LABS: BANDS 14 % (0-6); MYELOCYTES 1 % (0-0); NEUTROPHIL # MANUAL DIFF 11.1 TH/MM3 (1.8-7.7); WBC DIFF SAMPLE 100
[2016-12-17 08:10] LABS: PLATELET ESTIMATE SMEAR NORMAL (NORMAL); PLATELET MORPHOLOGY NORMAL (NORMAL); POLYS (SEG NEUTROPHILS) 70 % (16-70); SCAN/DIFF FINAL DIFF MANUAL
[2016-12-17] MEDS: INSULIN DETEMIR 100 UNITS/ML VIAL SQ SCH ×2 (09:00→20:25)
[2016-12-17] MEDS: SODIUM CHLORIDE 0.9% FLUSH 10 ML FLUSH IVF SCH (09:00)
[2016-12-17] MEDS: CHLORHEXIDINE 0.12% (ORAL KIT) 15 ML CUP MT SCH ×2 (09:06→20:23)
[2016-12-17] MEDS: SODIUM CHLORIDE 0.9% FLUSH 10 ML FLUSH IV FLUSH SCH (09:07)
[2016-12-17] MEDS: HEPARIN SODIUM - SQ 10,000 UNITS/ML VIAL SQ SCH ×2 (09:07→20:26)
[2016-12-17] MEDS: FAMOTIDINE 20 MG TAB NG SCH ×2 (09:09→20:24)
[2016-12-17] MEDS: SODIUM CHLORIDE 1 GRAM TAB PO SCH ×2 (09:09→20:24)
[2016-12-17] MEDS: AMIODARONE 200 MG TAB OG-TUBE SCH ×2 (09:09→20:25)
[2016-12-17] MEDS: predniSONE 20 MG TAB PO SCH (09:09)
[2016-12-17] MEDS: ARTIFICIAL TEARS OPTH OINT 3.5 APPLIC/3.5 GM TUBO EACH EYE SCH ×2 (09:14→20:24)
--- NOTE | 2016-12-17 10:07 | HHI.GIFU ---
Subjective Remarks Pt resting in bed in no distress. NPO, mild abdominal discomfort, not distended. S/P evaluation by GS- does not recommend cholecystomy tube at this time, recommends starting TF when able and treating ileus. + BM. No vomiting. Objective Vitals I&O Vital Signs Date Time Temp Pulse Resp B/P (MAP) Pulse Ox O2 Delivery O2 Flow Rate FiO2 12/17/16 07:20 99 40 12/17/16 06:00 75 12/17/16 04:40 98 40 12/17/16 04:00 73 12/17/16 04:00 50 12/17/16 04:00 97.8 73 43 135/75 (95) 97 12/17/16 02:00 71 12/17/16 00:51 97 45 12/17/16 00:00 71 12/17/16 00:00 98.2 71 35 139/79 (99) 97 12/17/16 00:00 50 12/16/16 22:00 71 12/16/16 21:18 100 50 12/16/16 20:00 97.6 69 21 122/78 (93) 97 12/16/16 20:00 69 12/16/16 20:00 50 12/16/16 18:00 62 12/16/16 16:00 62 12/16/16 16:00 50 12/16/16 16:00 98.4 69 17 125/73 (90) 95 12/16/16 14:00 62 12/16/16 12:00 50 12/16/16 12:00 98.2 62 30 112/66 (81) 97 12/16/16 12:00 62 12/16/16 11:09 95 50 12/16/16 10:00 62 I/O 12/16/16 12/16/16 12/16/16 12/17/16 12/17/16 12/17/16 07:00 15:00 23:00 07:00 15:00 23:00 Intake Total 200 ml Output Total 300 ml 650 ml 150 ml Balance -300 ml -450 ml -150 ml IV Total 200 ml Output Urine Total 50 ml 550 ml 50 ml Stool Total 100 ml 100 ml 100 ml Gastric Drainage Total 150 ml Chest Tube Drainage Total 0 ml 0 ml 0 ml Laboratory Laboratory Tests Test 12/17/16 03:54 12/17/16 05:41 Blood Urea Nitrogen 27 Creatinine 0.17 Random Glucose 46 Total Protein 5.9 Albumin 2.4 Calcium Level 8.1 Magnesium Level 2.2 Alkaline Phosphatase 114 Aspartate Amino Transf (AST/SGOT) 21 Alanine Aminotransferase (ALT/SGPT) 70 Total Bilirubin 1.0 Sodium Level 132 Potassium Level 3.6 Chloride Level 92 Carbon Dioxide Level 30.0 Anion Gap 10 Estimat Glomerular Filtration Rate 597 White Blood Count 13.0 Red Blood Count 2.93 Hemoglobin 9.0 Hematocrit 27.2 Mean Corpuscular Volume 93.1 Mean Corpuscular Hemoglobin 30.8 Mean Corpuscular Hemoglobin Concent 33.1 Red Cell Distribution Width 15.6 Platelet Count 348 Mean Platelet Volume 6.5 Neutrophils (%) (Auto) 86.7 Lymphocytes (%) (Auto) 9.5 Monocytes (%) (Auto) 3.1 Eosinophils (%) (Auto) 0.3 Basophils (%) (Auto) 0.4 Neutrophils # (Auto) 11.3 Lymphocytes # (Auto) 1.2 Monocytes # (Auto) 0.4 Eosinophils # (Auto) 0.0 Basophils # (Auto) 0.0 CBC Comment AUTO DIFF Differential Total Cells Counted 100 Neutrophils % (Manual) 70 Band Neutrophils % 14 Lymphocytes % 12 Monocytes % 3 Neutrophils # (Manual) 11.1 Myelocytes 1 Differential Comment FINAL DIFF MANUAL Platelet Estimate NORMAL Platelet Morphology Comment NORMAL Activated Partial Thromboplast Time 28.7 Date/Time Source Procedure Growth Status 12/14/16 22:15 Blood Peripheral Aerobic Blood Culture - Preliminary NO GROWTH IN 2 DAYS Resulted 12/14/16 22:15 Blood Peripheral Anaerobic Blood Culture - Preliminary NO GROWTH IN 2 DAYS Resulted 11/08/16 14:15 Stool Stool Stool Occult Blood (TYLER) - Final HEMOCCULT NEGATIVE Complete 11/27/16 09:55 Sputum Endotracheal Gram Stain - Final Complete 11/27/16 09:55 Sputum Culture - Final Klebsiella Pneumoniae Stenotrophomonas Maltophilia Pseudomonas Aeruginosa Complete 12/14/16 18:10 Urine Catheterized Urine Urine Culture - Final NO GROWTH IN 48 HOURS. Complete Imaging Last Impressions Chest X-Ray 12/17/16599 Signed Impressions: Service Date/Time: Saturday, December 17, 2016 04:03 - CONCLUSION: Worsening bibasilar patchy opacities. Right-sided chest tube without pneumothorax. Javier Ulloa MD Abdomen X-Ray 10/23/17 0600 Signed Impressions: Service Date/Time: Saturday, December 17, 2016 04:06 - CONCLUSION: 1. Gaseous distention of multiple bowel loops. 2. Percutaneous gastrostomy tube. Javier Ulloa MD Abdomen/Pelvis CT 12/15/16 0000 Signed Impressions: Service Date/Time: Thursday, December 15, 2016 10:50 - CONCLUSION: 1. Distended bowel especially the small bowel and the cecum. This is nonspecific. A transition point is not seen. This could relate to ileus. Oral contrast does extend to the rectum. 2. Bibasilar areas of consolidation at the lung bases. There also is a possible small pneumothorax on the right. The patient does have a right chest tube in place. 3. G-tube. 4. Distended gallbladder. 5. Increased soft tissue density in the left lateral abdominal wall which could be from prior trauma or edema. Jayson Soto MD Lower Extremity Ultrasound 12/09/16 0000 Signed Impressions: Service Date/Time: Friday, December 09, 2016 17:13 - CONCLUSION: 1. No evidence of DVT 2. Large complex mass in the pump to fossa characteristic of a hematoma. Joni Barfield MD Cervical Spine MRI 12/03/16 0000 Signed Impressions: Service Date/Time: Saturday, December 03, 2016 13:13 - CONCLUSION: Severely limited exam. I believe there is increased signal in the cervical cord mid C3 to mid C5. Ward Kim MD FACR Brain MRI 12/03/16 0000 Signed Impressions: Service Date/Time: Saturday, December 03, 2016 13:13 - CONCLUSION: 1. There is a small area of abnormal T2 signal in the left frontal cortex this is unchanged from the previous examination dated 11/26/16. This is nonspecific in appearance on the MRI. Differential considerations would be a small area of gliosis versus an old area of contusion. Follow up examination in 6 months to document stability would be warranted. 2. No findings to indicate acute cortical infarction are identified. Román Kim MD Gastrostomy Tube Placement 11/30/16 0000 Signed Impressions: Service Date/Time: Wednesday, November 30, 2016 12:22 - CONCLUSION: Uncomplicated gastrostomy tube placement as above. Jorge Jolly MD Liver Ultrasound 11/09/16 0000 Signed Impressions: Service Date/Time: Wednesday, November 09, 2016 13:58 - CONCLUSION: Sono dense liver without duct dilatation. 4 mm common duct. Ward Kim MD FACR Chest CT 11/06/16 0000 Signed Impressions: Service Date/Time: Sunday, November 06, 2016 11:24 - CONCLUSION: 1. Dense bilateral posterior lower lobe airspace consolidation consistent with aspiration versus less likely pneumonia. 2. Linear consolidation in the right middle lobe consistent with atelectasis versus aspiration. 3. Trace left and small right pleural effusions. 4. Support lines and tubes in good position. 5. Prominent coronary artery calcifications. Nico Vaughan MD Head CT 11/05/16 0000 Signed Impressions: Service Date/Time: Saturday, November 05, 2016 21:43 - CONCLUSION: 1. No acute intracranial abnormalities. Pansinus fluid opacification. Cristofer De Santiago MD Carotid Artery Ultrasound 10/25/16 0000 Signed Impressions: Service Date/Time: September 08:27 - CONCLUSION: Mild to moderate plaque in both carotid systems with less than 40%% diameter stenosis by velocity criteria. Jhonathan Dietz MD CT Angiography 10/25/16 0000 Signed Impressions: Service Date/Time: September 06:12 - CONCLUSION: 1. Negative for pulmonary embolism. 2. There is a fairly large area of masslike consolidation in the medial right lung involving posterior segment right upper lobe and medial aspect of right lower lobe. There is associated right hilar and mediastinal adenopathy measuring up to 2.1 cm. Differential diagnosis includes pneumonia or underlying lung neoplasm. Close followup imaging recommended after treatment for pneumonia, to assess for underlying mass. Cristofer De Santiago MD Physical Exam HEENT: Normocephalic; atraumatic; no jaundice. CHEST: Tracheostomy to CPAP. Course breath sounds. CARDIAC: Irregular, rate controlled ABDOMEN: Soft, obese, mildly distended, bowel sounds hypoactive. Flexiseal EXTREMITIES: Generalized edema. AREA COUNSELOR: Lethargic Assessment and Plan Plan ASSESSMENT - Severe Ileus. KUB (12/14/16)---> Diffuse air distention of the colon and small bowel loops characteristic of a hypodynamic ileus. He has associated nausea, abdominal pain, bloating. He was started on Reglan and received GoLYTELY overnight on 12/14. 12/15--began vomiting and his G-tube was placed to suction. The nurse reports that she immediately got out 5 L of brown material his abdomen is soft and mildly distended since his G-tube was placed to suction. CT scan abdomen and pelvis (12/15/16)-- distended bowel especially the small bowel and the cecum (4.5 cm). This is nonspecific. A transition point is not seen. This could relate to ileus. Oral contrast does extend to the rectum. By basilar areas of consolidation at the lung bases. There also is a possibility small pneumothorax on the right. The patient does have a right chest tube in place. G-tube. Distended gallbladder. Increased soft tissue density in the left lateral abdominal wall which could be from prior trauma or edema. KUB (12/17/16)----> Gaseous distention of multiple bowel loops. Percutaneous gastrostomy tube. Clinically, less distended. + BM. Reglan frequency increased by GS, Add Miralax. Will start Vital High protein at 20cc/hr. Once tolerating, will increase to GR 75cc/hr. - Dysphagia. S/P EGD (11/29/16)---> 1. Normal stomach mild esophagitis no transillumination or indentation seen-peg could not be placed endoscopically 2. Retroflexed views revealed a hiatal hernia. S/P G tube placement by IR (11/30/16). - Elevated LFTs, improved. T. Bili 1.0, AST 21, ALT 70, Alk Phosph 114. - Distended GB on CT. S/P GS evaluation, does not feel there is a need for cholecystomy tube, recommends starting TF when able. - Respiratory failure/ARDS/COPD/PNA. S/P tracheostomy, on CPAP. Prednisone, Nebs. - Sepsis/Leukocytosis. Sputum with Klebsiella pneumoniae, stenotrophomonas maltiophilia, PSAE. BCx (12/07) negative. WBC 13.0 , repeat cultures no growth in 2 day (Blood, urine). - Atrial fibrillation/flutter. Currently in Aflutter, Rate 70. Amiodarone. BB. Heparin, digoxin - HTN, per attending. PLAN - Vital High Protein at 20cc/hr - Cont. Reglan - Add Miralax - Supportive care - CCM following - ID following - Palliative care following - Further recommendations to follow based on results of above Anne-Marie Montiel Dec 17, 2016 10:07
[2016-12-17] MEDS: DIGOXIN 0.125 MG TAB PO SCH (10:41)
[2016-12-17] MEDS: LISINOPRIL 10 MG TAB PO SCH (10:41)
[2016-12-17] MEDS: POLYETHYLENE GLYCOL 17 GM PKG PO SCH (11:20)
--- NOTE | 2016-12-17 12:14 | HHI.PR ---
cc: Jhonathan Nguyen MD Subjective Subjective Notes No clinical changes; no RUQ discomfort Objective Vitals/I&O Vital Signs Date Time Temp Pulse Resp B/P (MAP) Pulse Ox O2 Delivery O2 Flow Rate FiO2 12/17/16 11:45 98 40 12/17/16 06:00 75 12/17/16 04:00 97.8 43 135/75 (95) 12/13/16 10:40 T-piece 7.00 Labs Laboratory Tests Test 12/17/16 03:54 12/17/16 05:41 Blood Urea Nitrogen 27 Creatinine 0.17 Random Glucose 46 Total Protein 5.9 Albumin 2.4 Calcium Level 8.1 Magnesium Level 2.2 Alkaline Phosphatase 114 Aspartate Amino Transf (AST/SGOT) 21 Alanine Aminotransferase (ALT/SGPT) 70 Total Bilirubin 1.0 Sodium Level 132 Potassium Level 3.6 Chloride Level 92 Carbon Dioxide Level 30.0 Anion Gap 10 Estimat Glomerular Filtration Rate 597 White Blood Count 13.0 Red Blood Count 2.93 Hemoglobin 9.0 Hematocrit 27.2 Mean Corpuscular Volume 93.1 Mean Corpuscular Hemoglobin 30.8 Mean Corpuscular Hemoglobin Concent 33.1 Red Cell Distribution Width 15.6 Platelet Count 348 Mean Platelet Volume 6.5 Neutrophils (%) (Auto) 86.7 Lymphocytes (%) (Auto) 9.5 Monocytes (%) (Auto) 3.1 Eosinophils (%) (Auto) 0.3 Basophils (%) (Auto) 0.4 Neutrophils # (Auto) 11.3 Lymphocytes # (Auto) 1.2 Monocytes # (Auto) 0.4 Eosinophils # (Auto) 0.0 Basophils # (Auto) 0.0 CBC Comment AUTO DIFF Differential Total Cells Counted 100 Neutrophils % (Manual) 70 Band Neutrophils % 14 Lymphocytes % 12 Monocytes % 3 Neutrophils # (Manual) 11.1 Myelocytes 1 Differential Comment FINAL DIFF MANUAL Platelet Estimate NORMAL Platelet Morphology Comment NORMAL Activated Partial Thromboplast Time 28.7 Date/Time Source Procedure Growth Status 12/14/16 22:15 Blood Peripheral Aerobic Blood Culture - Preliminary NO GROWTH IN 3 DAYS Resulted 12/14/16 22:15 Blood Peripheral Anaerobic Blood Culture - Preliminary NO GROWTH IN 3 DAYS Resulted 11/08/16 14:15 Stool Stool Stool Occult Blood (TYLER) - Final HEMOCCULT NEGATIVE Complete 11/27/16 09:55 Sputum Endotracheal Gram Stain - Final Complete 11/27/16 09:55 Sputum Culture - Final Klebsiella Pneumoniae Stenotrophomonas Maltophilia Pseudomonas Aeruginosa Complete 12/14/16 18:10 Urine Catheterized Urine Urine Culture - Final NO GROWTH IN 48 HOURS. Complete Abdomen: Non-distended, Other (Tender in both lower quadrants, not in RUQ) A/P Assessment and Plan Hydrops of gallbladder LFT's normal WBC's decreasing No intervention at this time. Would hold on cholecystostomy tube for now. Jhonathan Nguyen MD Dec 17, 2016 12:14
[2016-12-17] MEDS: RESP: ALBUTEROL 2.5 MG/3 ML NEB (PRN) NEB (19:52)
[2016-12-17] MEDS: SODIUM CHLORIDE 0.9% FLUSH 10 ML FLUSH SCH (20:23)
[2016-12-17] MEDS: ESCITALOPRAM OXALATE 10 MG TAB PO SCH (20:24)
--- NOTE | 2016-12-17 20:47 | HHI.CCPN ---
Subjective Remarks/Hospital Course 56-year-old very pleasant gentleman with past medical history of COPD, and hypertension presents complaining of shortness of breath and nausea, generalized fatigue and chills for 2 days. He thinks it has been from being out in the heat. Denies any fever, chest pain, vomiting, abdominal pain, focal weakness or numbness. In the emergency department his saturation was in mid 80s on arrival with auditory wheezing and tachypnea. He was placed on 4 liters of NC and saturating in the low 90. He does not use oxygen at home. He also mentioned 2 days ago, he came home and was sitting in a chair and was taking his shoes off when he passed out. States he woke up and was still on the chair. This has never happen before. 10/25: Patient intubated secondary to increasing oxygen requirements, altered mental status. Discussed with son. Somewhat hypertensive post intubation. 10/26: Placed on rotaprone bed last evening. Flolan initiated. Saturations improved. Afebrile. Remains on Nimbex drip. 10/27: T max 99.7. Tolerated on not prone position 2 hours yesterday. Tolerating trickle feeds. FiO2 down to 55% 10/28: Tmax 99.9. When unprone for chest x-ray this a.m. desaturated. Currently on 90% FiO2. Actually hypertensive. No bowel movements. Remains paralyzed 10/29: Remains intubated sedated on continuous Prone therapy Except for chest x- ray. Fever 100.8. Panculture requested. Zyvox added. Continue IV sedation with propofol and fentanyl and Versed, neuromuscular paralysis with Nimbex 10/30: Prone cycle changed to 8 hr prone, 1 hr supine from 10/29. Due to hypoxia will continue with same cycle today. Chest x-ray remains unchanged. Patient remains severely hypoxemic FiO2 at 75% PEEP at 16. WBC count worsened to 18. Remains neuromuscularly paralyzed. 10/31: Patient remains critically ill but stable. Oxygen saturation 95% on 55 of FiO2 and PEEP of 16. Reduce PEEP to 14, FiO2 to 50% and start weaning Flolan. Increase supine time to 4 hours, reduce Prone time to 6 hours 11/01: Patient remains intubated sedated critically ill on neuromuscular paralysis. FiO2 reduced to 50, I will attempt PEEP wean gradually to 12 today. Prone/supine cycles will be changed to 6 hours each 11/02: FiO2 remains at 50%, PEEP reduced from 14 to 12 today, TV increased to 600 and RR to 20, in anticipation of discontinuing prone therapy, which will be DCd today. Off Flolan for 2 days 11/03: off pronation. fio2 up to 65% , peep 12. agitation causing desaturation. minimal improvements. 11/04: good diuresis yesterday, but despite that, fio2 persists at 65% and spo2 decreasing to 91% today. no real improvements and some worsening of pulmonary function despite ongoing aggressive therapies. still not safe for SBT given hypoxia. also severely hypertensive this morning. 11/05: continues to diurese well and Cr still at baseline. fio2 at 90% however, and no clinical improvements in mental status or hypoxia. still unsafe for SBT given hypoxemia. off pathway. hypertension under much better control. poor neuro status is concerning. 11/06: Remains severely hypoxemic. FiO2 was 100% PEEP 14. I reduce FiO2 to 90% after increasing PEEP to 16. Developed a flutter with RVR overnight, currently on Cardizem drip. Unable to do SBT due to very high settings 11/07: Remains hypoxemic and but able to wean FiO2 down to 80% with PEEP of 16. Remains unresponsive on sedation. Unable to trach due to his high vent settings and high FiO2. Remains on Cardizem and 15 mg per hour, with rate controlled a flutter. We'll start by mouth Cardizem in an attempt to wean IV Cardizem 11/08: Remains critically ill hypoxic but FiO2 now weaned to 60%, PEEP remains at 16. Very heavily sedated no withdrawal to pain. Will hold all continuos sedation. Sputum culture with Klebsiella sensitive to Rocephin. A flutter persistent, will start IV heparin 11/09 Patient is sedated with Diprivan and intubated, On Cardizem drip 15mg/hr for Aflutter. Heparin drip stated yesterday. 11/10 Patient remains sedated and intubated. On Heparin drip. Persistent fever with Tmax 102.5. ETT was replaced yesterday. 11/11 Patient was placed on Cardizem and amio drips overnight for Afib with RVR. Sedated with Diprivan and intubated. On Heparin drip. T;99.3 this morning. 11/12 Patient remains intubated and sedated with Diprivan. On Cardizem drip 15mg/ hr. Afebrile, Tmax 100.6 11/13 Patient is sedate with Diprivan and intubated. In Afib with RVR now on Amio drip. Tmax 100,4 11/14 Remains intubated sedated with propofol and fentanyl. Afib rate controlled , remains on amiodarone and Cardizem gtt. Fio2 remains high at 70%, PEEP 12. CXR persistent bibasilar infiltrates/effusion 11/15: Currently sedated with propofol and fentanyl drips. Currently in A. fib/ flutter on amiodarone drip and Cardizem drip. PEEP increased to 14. FiO2 65. 11/16: Tmax 100.1. Patient more alert and tachycardic this AM. Adding midazolam gtt for sedation and currently tolerating tube feeding. Positive BM. PEEP to 12. FiO2 75% 11/17: Afebrile. FiO2 down to 60%. PEEP set 12. Multiple tracheostomy hopefully on Saturday. Heart rate better control. 11/18: Afebrile. Discontinuing amiodarone drip today and switching to oral. FiO2 between 60 and 70%. Restarting epoprostenol in attempt to get FiO2 down to 50% for tracheostomy tomorrow 11/19 No events overnight. Sedated with Diprivan, Fentanyl and versed. Still requiring high O2 - on PRVC with PEEP;12 and FIO2 70%. Afebrile. 11/20 Patient remains sedated with Diprivan, versed, Fentanyl and intubated. On PRVC with PEEP: 12, FIO2 50% , sats 88-90%. On Heparin drip. 11/21: Tmax 99.4. Tolerating tube feeds. Remains on heparin drip. FiO2 down to 55%. PEEP of 10. Eyes open blinks spontaneously. Does squeeze and weakly on left side with encouragement 11/22: Intubated heavily sedated. FiO2 50%, remains on Flolan. PEEP 10. Bumex 1 mg 1 and Diamox 500 mg 1 IV. She will negative balance. Heparinized tube feeds on hold for tracheostomy today at 12. Remains in atrial flutter 11/23 Patient remains sedated with Diprivan, Fentanyl, Versed and intubated. On Heparin drip. For CT guided thoracentesis today. On APRV 11/24 Patient remains sedated and intubated. 20Fr CT placed yesterday for right sided PTX. Spiked fever with T 101.6. Remains on Heparin drip. 11/25 Patient remains intubated with Diprivan, fentanyl and intubated. On PRVC with PEEP: 10, FIO2 50%. Afebrile. 11/26 Patient is sedated with Diprivan, Fentanyl and intubated. Afebrile. On Heparin drip. On PRVC with PEEP: 10, FIO2 60% 11/27 Patient is scheduled for trach in OR today. Sedated and intubated. Heparin drip is off for trach. 11/28 Patient s/p trach yesterday. Sedated with Diprivan and Fentanyl. Afebrile. On PRVC with PEEP; 10 and FIO2 50% 11/29 No events overnight. Sedated and on ventilator via trach. For PEG tube placement today. Heparin drip on hold. 11/30: Currently afebrile. MAXIMUM TEMPERATURE 100. Positive BM via fecal containing device. Tube feeds on hold secondary to plan PEG tube placement today. Heparin drip on hold as well. 12/01: Status post PEG tube placement yesterday per IR. Heparin drip and tube feeds restarted today. Restarting insulin detemir. Awake and alert and weakly follows commands on sedation 12/02: Tmax 99.3. Tube feeds restarted and tolerating. Awake and alert and weakly follows commands. Plan for MRI brain/C-spine a.m. 12/03. 12/03: Patient is awake. Tolerating PRVC, very weakly wiggling cedric toes. MRI today 12/04/16: Tolerated CPAP with high settings yesterday for several hours 15 over 5. Becomes tachypneic and pressure support wean. MRI of the C-spine shows increased signal, no cord compression. Discussed with Dr. Riggins. He is requesting flexion extension films of C spine. 12/05/16: Desaturated on CPAP today. Now on full vent support with 50% FiO2. Continues to have functional quadriparesis. Dr Riggins reviewed MRI spine- he is not sure about increased signal in cord, but there could be cervical hyperextension injury, from intubation. 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 Cannot do cspine extension/flexion films. Repeat MRI c- spine in a few weeks 12/06/16: Patient remains on vent, placed on CPAP 11/29 now, on 50% FiO2. No improvement in neuro exam patient is awake. Able to minimally shrug shoulders. Continues to behave like functional quadriplegia 12/07/16: Tolerated CPAP approximately 6 hours yesterday but did not tolerate TPs. Having anxiety and some frustration due to neuromuscular weakness. I will add Lexapro. Give Bumex 1 mg x1, CXR shows pleural effusions. 12/08: On 11/29 PS since AM. CBC chest x-ray stable. Lexapro added yesterday for depression. Urine output 3.5 L in 24 hours 12/09: Tolerated CPAP well yesterday tolerated TPs for 2 hours but failed to CPAP today due to hypoxia and tachycardia. Currently on PRVC received metoprolol and fentanyl push with improved heart rate 12/10: Patient is tolerating CPAP today. Left popliteal fossa hematoma, large on left lower extremity ultrasound. Heparin and Coumadin placed on hold will get orthopedic consult 12/11: Slightly improved power of LE, unchanged on upper. L calf remains tense, but pulses are palpable. Holding anticoagulation 12/12: Tolerating CPAP 09/07. Slight improvement in muscle strength. Heparin remains on hold 12/13: Heparin remains on hold. No increase in hematoma clinically. Tolerating CPAP. 12/14: Patient complains of not feeling well today. Wbc count increased to 21, 000. KUB shows ileus. Hold tube feeds, Reglan 10 mg IV every 8 hours, send panculture 12/15: Large amount of output from the PEG tube and intermittent wall suction. Stat CT of the abdomen pelvis did not show any perforation or evidence of colitis. Shows ileus. Keep nothing by mouth IV. GI is following. CT chest shows tiny anterior pneumothorax. More Lethargic today, white count was 21,000 yesterday. Hypotensive systolic blood pressure in 70s. Probable severe sepsis/ septic shock. Start Zosyn and Levaquin and single dose of vancomycin. Check C Diff 12/16: General surgery does not recommend gallbladder drainage at this time. WBC count decreasing on Zosyn vancomycin and micafungin. 17.6 today. F/U KUB in am. GI ID following 12/17: no improvements or changes. still on full vent support. failing SBTs for tachypnea. Objective Vital Signs Date Time Temp Pulse Resp B/P (MAP) Pulse Ox O2 Delivery O2 Flow Rate FiO2 12/17/16 18:00 62 12/17/16 16:00 98.8 34 117/65 (82) 99 12/17/16 16:00 40 12/13/16 10:40 T-piece 7.00 Intake and Output 12/17/16 12/17/16 12/18/16 08:00 16:00 00:00 Intake Total 100 ml 384 ml Output Total 150 ml Balance -150 ml 100 ml 384 ml Result Diagram: 12/17/16 0541 12/17/16 0354 Imaging Last Impressions Gastrostomy Tube Placement 11/30/16 0000 Signed Impressions: Service Date/Time: Wednesday, November 30, 2016 12:22 - CONCLUSION: Uncomplicated gastrostomy tube placement as above. Jorge Jolly MD Chest X-Ray 11/30/16 0000 Signed Impressions: Service Date/Time: Wednesday, November 30, 2016 03:55 - CONCLUSION: Progression in the bilateral pleural effusions and bibasilar pulmonary infiltrates. Fito Mar Jr., MD Abdomen X-Ray 11/30/16 0000 Signed Impressions: Service Date/Time: Wednesday, November 30, 2016 09:43 - CONCLUSION: 1. No definite nasogastric catheter is identified. Repeat examination centered higher in the thorax may be performed for more definitive evaluation. Consider repositioning the nasogastric catheter prior to repeat imaging. Nico Vaughan MD Brain MRI 11/26/16 0000 Signed Impressions: Service Date/Time: Saturday, November 26, 2016 19:52 - CONCLUSION: 1. Small focal signal abnormality in the superior medial left frontal lobe. This is nonspecific. This could be the sequela from prior insult such as a contusion or small infarct. An acute infarct is not seen. A small underlying lesion could have a similar appearance. One could perform a contrast-enhanced study to determine if there is any enhancement associated with this region. 2. There are a few scattered minimal punctate areas of demyelination seen not expected for the patient's age. 3. Sinus disease. Jayson Soto MD Lower Extremity Ultrasound 11/09/16 Signed Impressions: Service Date/Time: Wednesday, November 09, 2016 14:13 - CONCLUSION: Normal examination. Jayson Manning MD Liver Ultrasound 11/09/16 Signed Impressions: Service Date/Time: Wednesday, November 09, 2016 13:58 - CONCLUSION: Sono dense liver without duct dilatation. 4 mm common duct. Ward Kim MD FACR Chest CT 11/06/16 Signed Impressions: Service Date/Time: Sunday, November 06, 2016 11:24 - CONCLUSION: 1. Dense bilateral posterior lower lobe airspace consolidation consistent with aspiration versus less likely pneumonia. 2. Linear consolidation in the right middle lobe consistent with atelectasis versus aspiration. 3. Trace left and small right pleural effusions. 4. Support lines and tubes in good position. 5. Prominent coronary artery calcifications. Nico Vaughan MD Head CT 11/05/16 Signed Impressions: Service Date/Time: Saturday, November 05, 2016 21:43 - CONCLUSION: 1. No acute intracranial abnormalities. Pansinus fluid opacification. Cristofer De Santiago MD Carotid Artery Ultrasound 10/25/16 Signed Impressions: Service Date/Time: September 08:27 - CONCLUSION: Mild to moderate plaque in both carotid systems with less than 40%% diameter stenosis by velocity criteria. Jhonathan Dietz MD CT Angiography 10/25/16 Signed Impressions: Service Date/Time: September 06:12 - CONCLUSION: 1. Negative for pulmonary embolism. 2. There is a fairly large area of masslike consolidation in the medial right lung involving posterior segment right upper lobe and medial aspect of right lower lobe. There is associated right hilar and mediastinal adenopathy measuring up to 2.1 cm. Differential diagnosis includes pneumonia or underlying lung neoplasm. Close followup imaging recommended after treatment for pneumonia, to assess for underlying mass. Cristofer De Santiago MD Objective Remarks GENERAL: 56-year-old male, critically ill currently on PRVC via tracheostomy SKIN: Warm and dry. Positive intertrigo HEAD: Atraumatic. Normocephalic. EYES: Pupils equal and round about 3 mm bilaterally and reactive. ENT: No nasal bleeding or discharge. NECK: Trachea midline. No JVD. Tracheostomy site has some yellow secretions surrounding CARDIOVASCULAR: In atrial flutter. RESPIRATORY: Bilateral mild expiratory wheezes and coarse bilateral anterior rhonchi appreciated. GASTROINTESTINAL: Abdomen soft, obese, distended. MUSCULOSKELETAL: Extremities with trace lower extremity. No obvious deformities. NEUROLOGICAL: Eyes are open. Moves fingers and toes. Shrugs shoulders A/P Assessment and Plan Neuro/Psych: Functional quadriparesis Metabolic encephalopathy CIM/SHEFALI s/p Neuromuscular paralysis for Prone therapy Syncope Depression Encephalopathy most likely secondary to sepsis MRI C-spine showing increased signals C3-C5 region. Dr Riggins reviewed MRI spine- not sure about increased signal in cord, could be cervical hyperextension injury, from intubation according to him. Unable to do flexion- extension films of the C-spine (trached patient). Repeat MRI c-spine probably next week. 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 DCd Fentanyl patch due to ileus. Hold liquid oxycodone 5 mg every 6 per tube. prn hydromorphone, fentanyl for breakthrough. Haloperidol 5mg iv q4h prn for agitation. Lexapro 10 mg qhs from 12/07/16. MRI brain 11/26: Small focal signal abnormality in the superior medial left frontal lobe. Could be sequela from prior insult such as a contusion or small infarct. No acute infarct MRI brain 12/[address] on admission revealed no acute intracranial findings, CT brain 11/05- no acute findings. opacification of sinuses. EEG 11/20: No seizure activity. EEG 11/09: severe encephalopathy PT/OT for range of motion, up to stretcher chair as tolerated CV: Hypotension-resolved Atrial fib/ flutter with RVR Hypertension, now intermittently hypotensive s/p 2 L normal saline bolus,and Levophed to maintain map above 65, 12/15/16. Levophed OFF now On Amiodarone 200mg Q12, Digoxin 0.125 mg daily (Dig. level 0.5 on 12/01). Holding PO Diltiazem 90 mg PO q6hr, metoprolol 50mg Q6 due to hypotension DCd CLONIDINE 12/06/16 Coumadin and heparin 10/16 held due to left popliteal fossa hematoma. Placed on sq heparin for DVT prophylaxis Echo 10/25 EF 60-65%. Repeat echo with bubble study: 11/22: No shunt seen Resp: Acute, now chronic hypoxemic Respiratory failure s/p trach 11/27 Spontaneous Right sided PTX secondary to barotrauma COPD exacerbation Pneumonia most likely community-acquired Obesity hypoventilation syndrome Tobacco use disorder On PRVC FIO2 50%. Albuterol/ipratropium aerosols every 4 hours of albuterol aerosols every 2 hours PRN. Ventilator bundle Gross tolerating CPAP until Thursday 12/14 prior to developing ileus Budesonide 0.5 mg/2 mL aerosols twice a day. Prednisone 20 mg daily s/p trach 11/[address] Martin #8 [place]. Pulmonary/Dr. Wynne has followed s/p 20Fr CT placed for right PTX 11/23, monitor CT drainage. Leave CT in place until vent settings, hypoxia improved, may have tiny apical pneumo on CT CT pulmonary angio revealed no pulmonary embolus. Masslike consolidation in the posterior right upper lobe and medial right lower lobe. Lymphadenopathy to 1 cm right hilum and subcarinal. Atelectasis left lower lobe. Discontinued Prone therapy 11/02/16. GI: Ileus Morbid Obesity Elevated LFT's- now within normal. PEG tube placement 11/30. US liver: No ductal dilatation Start trickle feed per general surgery and GI Reglan IV. No Cholecystostomy tube recommended by Dr. Nguyen Famotidine 20 milligrams mg twice a day for GI prophylaxis /renal: Hyponatremia Monitor renal function, I/O's, electrolytes replacement per protocol. Endo: Hyperglycemia SSI Q6h with Regular Insulin mild protocol for glycemic control. Previously insulin detemir 62 units twice a day. Restarted 15 units twice a day 12/01. Adequate blood sugar control . Heme: Normocytic anemia Leukocytosis L popliteal fossa hematoma Monitor CBC, coags- Heparin/Coumadin on hold Monitor closely for compartment syndrome ID: Severe sepsis - resolved. HAP Worsening leukocytosis Placed back on Zosyn vancomycin and micafungin by ID, WBC trending down ID Amanda Haas, F/U ríos culture, C Diff ABX completed 12/11. (piperacillin/tazobactam and sulfamethoxazole/ trimethoprim 800/160 2 tablets 3 times a day) Sputum: Klebsiella, Stenotrophomonas and Pseudomonas 11/27 Sputum cx 11/23: Kleb, Pseudomonas, s/p (ceftriaxone and fluconazole course). ID is following-Dr. Patel s/p ceftriaxone 11/02-11/09 for Enterobacter pneumonia. Repeat sputum Klebsiella sensitive to Rocephin 10/29/16-Enterobacter in sputum, 11/06/16, 11/10 sputum- Klebsiella Urine Legionella and pneumococcal antigens negative and influenza negative C-diff PCR is negative Access RUE PICC placed 11/05 through 11/15 replaced 11/16 with left upper extremity PICC Prophylaxis GI, famotidine. DVT - IV heparin gtt, Coumadin DCd 12/10 due to left popliteal hematoma, O Heparin 5000 U q12 sq 11/09 Doppler US LE negative for DVT Palliative care is following Keven Franco MD Dec 17, 2016 20:47
[2016-12-18] VITALS (18 sets, daily range): BP systolic 104–154; BP diastolic 56–71; PULSE 54–64; RESP 16–32; TEMP 97.2–99.1; O2SAT 94–98
[2016-12-18] MEDS: INSULIN NovoLIN REGULAR SUPPLEMENTAL SCALE SQ SCH ×4 (02:00→20:00)
[2016-12-18] MEDS: CHLORHEXIDINE GLUCONATE 2 % 1 PACK (2 CLOTHS) TOP SCH (02:41)
[2016-12-18] MEDS: PIPERACIL-TAZO 4.5 GM PREMIX 100 ML IV SCH ×4 (02:41→21:03)
[2016-12-18] MEDS: oxyCODONE HCL ORAL CONC 5 MG/0.25 ML SYRINGE PEG SCH ×4 (03:58→21:03)
[2016-12-18] MEDS: RESP: ALBUTEROL 2.5 MG/3 ML NEB (PRN) NEB (04:04)
[2016-12-18 05:41] LABS: APTT (PATIENT) 27.4 SEC (24.3-30.1)
[2016-12-18] MEDS: DILTIAZEM HCL 90 MG TAB PO SCH ×3 (05:44→18:11)
[2016-12-18] MEDS: METOCLOPRAMIDE HCL 10 MG/2 ML VIAL IV SCH ×3 (05:44→18:11)
[2016-12-18] MEDS: METOPROLOL TARTRATE 50 MG TAB PO SCH ×3 (05:44→18:11)
[2016-12-18 05:48] LABS: HEMATOCRIT 27.2 % (39.0-51.0); MEAN CELL VOLUME 93.6 FL (80.0-100.0); MEAN CORPUSCULAR HEMOGLOBIN 31.3 PG (27.0-34.0); MEAN CORPUSCULAR HGB CONC 33.4 % (32.0-36.0); PLATELET COUNT 344 TH/MM3 (150-450); RED CELL DISTRIBUTION WIDTH 15.9 % (11.6-17.2); REVIEW FLAG FINAL
[2016-12-18 05:57] LABS: BICARBONATE 31.5 MEQ/L (21.0-32.0); POTASSIUM 3.3 MEQ/L (3.5-5.1)
--- NOTE | 2016-12-18 08:36 | HHI.CCPN ---
Subjective Remarks/Hospital Course 56-year-old very pleasant gentleman with past medical history of COPD, and hypertension presents complaining of shortness of breath and nausea, generalized fatigue and chills for 2 days. He thinks it has been from being out in the heat. Denies any fever, chest pain, vomiting, abdominal pain, focal weakness or numbness. In the emergency department his saturation was in mid 80s on arrival with auditory wheezing and tachypnea. He was placed on 4 liters of NC and saturating in the low 90. He does not use oxygen at home. He also mentioned 2 days ago, he came home and was sitting in a chair and was taking his shoes off when he passed out. States he woke up and was still on the chair. This has never happen before. 10/25: Patient intubated secondary to increasing oxygen requirements, altered mental status. Discussed with son. Somewhat hypertensive post intubation. 10/26: Placed on rotaprone bed last evening. Flolan initiated. Saturations improved. Afebrile. Remains on Nimbex drip. 10/27: T max 99.7. Tolerated on not prone position 2 hours yesterday. Tolerating trickle feeds. FiO2 down to 55% 10/28: Tmax 99.9. When unprone for chest x-ray this a.m. desaturated. Currently on 90% FiO2. Actually hypertensive. No bowel movements. Remains paralyzed 10/29: Remains intubated sedated on continuous Prone therapy Except for chest x- ray. Fever 100.8. Panculture requested. Zyvox added. Continue IV sedation with propofol and fentanyl and Versed, neuromuscular paralysis with Nimbex 10/30: Prone cycle changed to 8 hr prone, 1 hr supine from 10/29. Due to hypoxia will continue with same cycle today. Chest x-ray remains unchanged. Patient remains severely hypoxemic FiO2 at 75% PEEP at 16. WBC count worsened to 18. Remains neuromuscularly paralyzed. 10/31: Patient remains critically ill but stable. Oxygen saturation 95% on 55 of FiO2 and PEEP of 16. Reduce PEEP to 14, FiO2 to 50% and start weaning Flolan. Increase supine time to 4 hours, reduce Prone time to 6 hours 11/01: Patient remains intubated sedated critically ill on neuromuscular paralysis. FiO2 reduced to 50, I will attempt PEEP wean gradually to 12 today. Prone/supine cycles will be changed to 6 hours each 11/02: FiO2 remains at 50%, PEEP reduced from 14 to 12 today, TV increased to 600 and RR to 20, in anticipation of discontinuing prone therapy, which will be DCd today. Off Flolan for 2 days 11/03: off pronation. fio2 up to 65% , peep 12. agitation causing desaturation. minimal improvements. 11/04: good diuresis yesterday, but despite that, fio2 persists at 65% and spo2 decreasing to 91% today. no real improvements and some worsening of pulmonary function despite ongoing aggressive therapies. still not safe for SBT given hypoxia. also severely hypertensive this morning. 11/05: continues to diurese well and Cr still at baseline. fio2 at 90% however, and no clinical improvements in mental status or hypoxia. still unsafe for SBT given hypoxemia. off pathway. hypertension under much better control. poor neuro status is concerning. 11/06: Remains severely hypoxemic. FiO2 was 100% PEEP 14. I reduce FiO2 to 90% after increasing PEEP to 16. Developed a flutter with RVR overnight, currently on Cardizem drip. Unable to do SBT due to very high settings 11/07: Remains hypoxemic and but able to wean FiO2 down to 80% with PEEP of 16. Remains unresponsive on sedation. Unable to trach due to his high vent settings and high FiO2. Remains on Cardizem and 15 mg per hour, with rate controlled a flutter. We'll start by mouth Cardizem in an attempt to wean IV Cardizem 11/08: Remains critically ill hypoxic but FiO2 now weaned to 60%, PEEP remains at 16. Very heavily sedated no withdrawal to pain. Will hold all continuos sedation. Sputum culture with Klebsiella sensitive to Rocephin. A flutter persistent, will start IV heparin 11/09 Patient is sedated with Diprivan and intubated, On Cardizem drip 15mg/hr for Aflutter. Heparin drip stated yesterday. 11/10 Patient remains sedated and intubated. On Heparin drip. Persistent fever with Tmax 102.5. ETT was replaced yesterday. 11/11 Patient was placed on Cardizem and amio drips overnight for Afib with RVR. Sedated with Diprivan and intubated. On Heparin drip. T;99.3 this morning. 11/12 Patient remains intubated and sedated with Diprivan. On Cardizem drip 15mg/ hr. Afebrile, Tmax 100.6 11/13 Patient is sedate with Diprivan and intubated. In Afib with RVR now on Amio drip. Tmax 100,4 11/14 Remains intubated sedated with propofol and fentanyl. Afib rate controlled , remains on amiodarone and Cardizem gtt. Fio2 remains high at 70%, PEEP 12. CXR persistent bibasilar infiltrates/effusion 11/15: Currently sedated with propofol and fentanyl drips. Currently in A. fib/ flutter on amiodarone drip and Cardizem drip. PEEP increased to 14. FiO2 65. 11/16: Tmax 100.1. Patient more alert and tachycardic this AM. Adding midazolam gtt for sedation and currently tolerating tube feeding. Positive BM. PEEP to 12. FiO2 75% 11/17: Afebrile. FiO2 down to 60%. PEEP set 12. Multiple tracheostomy hopefully on Saturday. Heart rate better control. 11/18: Afebrile. Discontinuing amiodarone drip today and switching to oral. FiO2 between 60 and 70%. Restarting epoprostenol in attempt to get FiO2 down to 50% for tracheostomy tomorrow 11/19 No events overnight. Sedated with Diprivan, Fentanyl and versed. Still requiring high O2 - on PRVC with PEEP;12 and FIO2 70%. Afebrile. 11/20 Patient remains sedated with Diprivan, versed, Fentanyl and intubated. On PRVC with PEEP: 12, FIO2 50% , sats 88-90%. On Heparin drip. 11/21: Tmax 99.4. Tolerating tube feeds. Remains on heparin drip. FiO2 down to 55%. PEEP of 10. Eyes open blinks spontaneously. Does squeeze and weakly on left side with encouragement 11/22: Intubated heavily sedated. FiO2 50%, remains on Flolan. PEEP 10. Bumex 1 mg 1 and Diamox 500 mg 1 IV. She will negative balance. Heparinized tube feeds on hold for tracheostomy today at 12. Remains in atrial flutter 11/23 Patient remains sedated with Diprivan, Fentanyl, Versed and intubated. On Heparin drip. For CT guided thoracentesis today. On APRV 11/24 Patient remains sedated and intubated. 20Fr CT placed yesterday for right sided PTX. Spiked fever with T 101.6. Remains on Heparin drip. 11/25 Patient remains intubated with Diprivan, fentanyl and intubated. On PRVC with PEEP: 10, FIO2 50%. Afebrile. 11/26 Patient is sedated with Diprivan, Fentanyl and intubated. Afebrile. On Heparin drip. On PRVC with PEEP: 10, FIO2 60% 11/27 Patient is scheduled for trach in OR today. Sedated and intubated. Heparin drip is off for trach. 11/28 Patient s/p trach yesterday. Sedated with Diprivan and Fentanyl. Afebrile. On PRVC with PEEP; 10 and FIO2 50% 11/29 No events overnight. Sedated and on ventilator via trach. For PEG tube placement today. Heparin drip on hold. 11/30: Currently afebrile. MAXIMUM TEMPERATURE 100. Positive BM via fecal containing device. Tube feeds on hold secondary to plan PEG tube placement today. Heparin drip on hold as well. 12/01: Status post PEG tube placement yesterday per IR. Heparin drip and tube feeds restarted today. Restarting insulin detemir. Awake and alert and weakly follows commands on sedation 12/02: Tmax 99.3. Tube feeds restarted and tolerating. Awake and alert and weakly follows commands. Plan for MRI brain/C-spine a.m. 12/03. 12/03: Patient is awake. Tolerating PRVC, very weakly wiggling cedric toes. MRI today 12/04/16: Tolerated CPAP with high settings yesterday for several hours 15 over 5. Becomes tachypneic and pressure support wean. MRI of the C-spine shows increased signal, no cord compression. Discussed with Dr. Riggins. He is requesting flexion extension films of C spine. 12/05/16: Desaturated on CPAP today. Now on full vent support with 50% FiO2. Continues to have functional quadriparesis. Dr Riggins reviewed MRI spine- he is not sure about increased signal in cord, but there could be cervical hyperextension injury, from intubation. 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 Cannot do cspine extension/flexion films. Repeat MRI c- spine in a few weeks 12/06/16: Patient remains on vent, placed on CPAP 11/29 now, on 50% FiO2. No improvement in neuro exam patient is awake. Able to minimally shrug shoulders. Continues to behave like functional quadriplegia 12/07/16: Tolerated CPAP approximately 6 hours yesterday but did not tolerate TPs. Having anxiety and some frustration due to neuromuscular weakness. I will add Lexapro. Give Bumex 1 mg x1, CXR shows pleural effusions. 12/08: On 11/29 PS since AM. CBC chest x-ray stable. Lexapro added yesterday for depression. Urine output 3.5 L in 24 hours 12/09: Tolerated CPAP well yesterday tolerated TPs for 2 hours but failed to CPAP today due to hypoxia and tachycardia. Currently on PRVC received metoprolol and fentanyl push with improved heart rate 12/10: Patient is tolerating CPAP today. Left popliteal fossa hematoma, large on left lower extremity ultrasound. Heparin and Coumadin placed on hold will get orthopedic consult 12/11: Slightly improved power of LE, unchanged on upper. L calf remains tense, but pulses are palpable. Holding anticoagulation 12/12: Tolerating CPAP 09/07. Slight improvement in muscle strength. Heparin remains on hold 12/13: Heparin remains on hold. No increase in hematoma clinically. Tolerating CPAP. 12/14: Patient complains of not feeling well today. Wbc count increased to 21, 000. KUB shows ileus. Hold tube feeds, Reglan 10 mg IV every 8 hours, send panculture 12/15: Large amount of output from the PEG tube and intermittent wall suction. Stat CT of the abdomen pelvis did not show any perforation or evidence of colitis. Shows ileus. Keep nothing by mouth IV. GI is following. CT chest shows tiny anterior pneumothorax. More Lethargic today, white count was 21,000 yesterday. Hypotensive systolic blood pressure in 70s. Probable severe sepsis/ septic shock. Start Zosyn and Levaquin and single dose of vancomycin. Check C Diff 12/16: General surgery does not recommend gallbladder drainage at this time. WBC count decreasing on Zosyn vancomycin and micafungin. 17.6 today. F/U KUB in am. GI ID following 12/17: no improvements or changes. still on full vent support. failing SBTs for tachypnea. 12/18: still failing SBTs. still on full vent support. no changes. needs placement. Objective Vital Signs Date Time Temp Pulse Resp B/P (MAP) Pulse Ox O2 Delivery O2 Flow Rate FiO2 12/18/16 06:00 63 12/18/16 05:43 16 12/18/16 04:04 94 40 12/18/16 04:00 97.2 109/59 (76) Intake and Output 12/18/16 12/18/16 12/19/16 08:00 16:00 00:00 Intake Total 469 ml Output Total 750 ml Balance -281 ml Result Diagram: 12/18/16 0500 12/18/16 0500 Imaging Last Impressions Gastrostomy Tube Placement 11/30/16 0000 Signed Impressions: Service Date/Time: Wednesday, November 30, 2016 12:22 - CONCLUSION: Uncomplicated gastrostomy tube placement as above. Jorge Jolly MD Chest X-Ray 11/30/16 0000 Signed Impressions: Service Date/Time: Wednesday, November 30, 2016 03:55 - CONCLUSION: Progression in the bilateral pleural effusions and bibasilar pulmonary infiltrates. Fito Mar Jr., MD Abdomen X-Ray 11/30/16 0000 Signed Impressions: Service Date/Time: Wednesday, November 30, 2016 09:43 - CONCLUSION: 1. No definite nasogastric catheter is identified. Repeat examination centered higher in the thorax may be performed for more definitive evaluation. Consider repositioning the nasogastric catheter prior to repeat imaging. Nico Vaughan MD Brain MRI 11/26/16 0000 Signed Impressions: Service Date/Time: Saturday, November 26, 2016 19:52 - CONCLUSION: 1. Small focal signal abnormality in the superior medial left frontal lobe. This is nonspecific. This could be the sequela from prior insult such as a contusion or small infarct. An acute infarct is not seen. A small underlying lesion could have a similar appearance. One could perform a contrast-enhanced study to determine if there is any enhancement associated with this region. 2. There are a few scattered minimal punctate areas of demyelination seen not expected for the patient's age. 3. Sinus disease. Jayson Soto MD Lower Extremity Ultrasound 11/09/16 Signed Impressions: Service Date/Time: Wednesday, November 09, 2016 14:13 - CONCLUSION: Normal examination. Jayson Manning MD Liver Ultrasound 11/09/16 Signed Impressions: Service Date/Time: Wednesday, November 09, 2016 13:58 - CONCLUSION: Sono dense liver without duct dilatation. 4 mm common duct. Ward Kim MD FACR Chest CT 11/06/16 Signed Impressions: Service Date/Time: Sunday, November 06, 2016 11:24 - CONCLUSION: 1. Dense bilateral posterior lower lobe airspace consolidation consistent with aspiration versus less likely pneumonia. 2. Linear consolidation in the right middle lobe consistent with atelectasis versus aspiration. 3. Trace left and small right pleural effusions. 4. Support lines and tubes in good position. 5. Prominent coronary artery calcifications. Nico Vaughan MD Head CT 11/05/16 Signed Impressions: Service Date/Time: Saturday, November 05, 2016 21:43 - CONCLUSION: 1. No acute intracranial abnormalities. Pansinus fluid opacification. Cristofer De Santiago MD Carotid Artery Ultrasound 10/25/16 Signed Impressions: Service Date/Time: September 08:27 - CONCLUSION: Mild to moderate plaque in both carotid systems with less than 40%% diameter stenosis by velocity criteria. Jhonathan Dietz MD CT Angiography 10/25/16 Signed Impressions: Service Date/Time: September 06:12 - CONCLUSION: 1. Negative for pulmonary embolism. 2. There is a fairly large area of masslike consolidation in the medial right lung involving posterior segment right upper lobe and medial aspect of right lower lobe. There is associated right hilar and mediastinal adenopathy measuring up to 2.1 cm. Differential diagnosis includes pneumonia or underlying lung neoplasm. Close followup imaging recommended after treatment for pneumonia, to assess for underlying mass. Cristofer De Santiago MD Objective Remarks GENERAL: 56-year-old male, critically ill currently on PRVC via tracheostomy SKIN: Warm and dry. Positive intertrigo HEAD: Atraumatic. Normocephalic. EYES: Pupils equal and round about 3 mm bilaterally and reactive. ENT: No nasal bleeding or discharge. NECK: Trachea midline. No JVD. Tracheostomy site has some yellow secretions surrounding CARDIOVASCULAR: In atrial flutter. RESPIRATORY: Bilateral mild expiratory wheezes and coarse bilateral anterior rhonchi appreciated. GASTROINTESTINAL: Abdomen soft, obese, distended. MUSCULOSKELETAL: Extremities with trace lower extremity. No obvious deformities. NEUROLOGICAL: Eyes are open. Moves fingers and toes. Shrugs shoulders A/P Assessment and Plan Neuro/Psych: Functional quadriparesis Metabolic encephalopathy CIM/SHEFALI s/p Neuromuscular paralysis for Prone therapy Syncope Depression Encephalopathy most likely secondary to sepsis MRI C-spine showing increased signals C3-C5 region. Dr Riggins reviewed MRI spine- not sure about increased signal in cord, could be cervical hyperextension injury, from intubation according to him. Unable to do flexion- extension films of the C-spine (trached patient). Repeat MRI c-spine probably next week. 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 DCd Fentanyl patch due to ileus. Hold liquid oxycodone 5 mg every 6 per tube. prn hydromorphone, fentanyl for breakthrough. Haloperidol 5mg iv q4h prn for agitation. Lexapro 10 mg qhs from 12/07/16. MRI brain 11/26: Small focal signal abnormality in the superior medial left frontal lobe. Could be sequela from prior insult such as a contusion or small infarct. No acute infarct MRI brain 12/[address] on admission revealed no acute intracranial findings, CT brain 11/05- no acute findings. opacification of sinuses. EEG 11/20: No seizure activity. EEG 11/09: severe encephalopathy PT/OT for range of motion, up to stretcher chair as tolerated CV: Hypotension-resolved Atrial fib/ flutter with RVR Hypertension, now intermittently hypotensive On Amiodarone 200mg Q12, Digoxin 0.125 mg daily (Dig. level 0.5 on 12/01). PO Diltiazem 90 mg PO q6hr, metoprolol 50mg Q6 due to hypotension DCd CLONIDINE 12/06/16 Coumadin and heparin 12/10 held due to left popliteal fossa hematoma. Placed on sq heparin for DVT prophylaxis Echo 10/25 EF 60-65%. Repeat echo with bubble study: 11/22: No shunt seen Resp: Acute, now chronic hypoxemic Respiratory failure s/p trach 11/27 Spontaneous Right sided PTX secondary to barotrauma COPD exacerbation Pneumonia most likely community-acquired Obesity hypoventilation syndrome Tobacco use disorder On PRVC FIO2 50%. Albuterol/ipratropium aerosols every 4 hours of albuterol aerosols every 2 hours PRN. Ventilator bundle Gross tolerating CPAP until Thursday 12/14 prior to developing ileus Budesonide 0.5 mg/2 mL aerosols twice a day. Prednisone 20 mg daily s/p trach 11/[address] Martin #8 [place]. Pulmonary/Dr. Wynne has followed s/p 20Fr CT placed for right PTX 11/23, monitor CT drainage. Leave CT in place until vent settings, hypoxia improved, may have tiny apical pneumo on CT CT pulmonary angio revealed no pulmonary embolus. Masslike consolidation in the posterior right upper lobe and medial right lower lobe. Lymphadenopathy to 1 cm right hilum and subcarinal. Atelectasis left lower lobe. Discontinued Prone therapy 11/02/16. GI: Ileus - resolved. Morbid Obesity Elevated LFT's- now within normal. PEG tube placement 11/30. US liver: No ductal dilatation tube feeds. Reglan IV. No Cholecystostomy tube recommended by Dr. Nguyen Famotidine 20 milligrams mg twice a day for GI prophylaxis /renal: Hyponatremia Monitor renal function, I/O's, electrolytes replacement per protocol. Endo: Hyperglycemia SSI Q6h with Regular Insulin mild protocol for glycemic control. Previously insulin detemir 62 units twice a day. Restarted 15 units twice a day 12/01. Adequate blood sugar control . Heme: Normocytic anemia Leukocytosis L popliteal fossa hematoma - stable. Monitor CBC, coags- Heparin/Coumadin on hold Monitor closely for compartment syndrome ID: Severe sepsis - resolved. HAP Worsening leukocytosis Placed back on Zosyn vancomycin and micafungin by ID, WBC trending down ID Amanda Haas, F/U ríos culture, C Diff- NGTD. ABX completed 12/11. (piperacillin/tazobactam and sulfamethoxazole/ trimethoprim 800/160 2 tablets 3 times a day) Sputum: Klebsiella, Stenotrophomonas and Pseudomonas 11/27 Sputum cx 11/23: Kleb, Pseudomonas, s/p (ceftriaxone and fluconazole course). ID is following-Dr. Patel s/p ceftriaxone 11/02-11/09 for Enterobacter pneumonia. Repeat sputum Klebsiella sensitive to Rocephin 10/29/16-Enterobacter in sputum, 11/06/16, 11/10 sputum- Klebsiella Urine Legionella and pneumococcal antigens negative and influenza negative C-diff PCR is negative Access RUE PICC placed 11/05 through 11/15 replaced 11/16 with left upper extremity PICC Prophylaxis GI, famotidine. DVT - IV heparin gtt, Coumadin DCd 12/10 due to left popliteal hematoma, O Heparin 5000 U q12 sq 11/09 Doppler US LE negative for DVT Palliative care is following Overall impression: very slow if any forward progress. off pathway. needs aggressive pulmonary rehab at an LTAC facility but no funding source. Continue daily SBTs and very slow weaning as tolerated. Keven Franco MD Dec 18, 2016 08:36
[2016-12-18] MEDS: SODIUM CHLORIDE 0.9% FLUSH 10 ML FLUSH SCH ×2 (09:00→21:03)
[2016-12-18] MEDS: INSULIN DETEMIR 100 UNITS/ML VIAL SQ SCH ×2 (09:00→21:00)
[2016-12-18] MEDS: SODIUM CHLORIDE 0.9% FLUSH 10 ML FLUSH IV FLUSH SCH (09:00)
[2016-12-18] MEDS: SODIUM CHLORIDE 0.9% FLUSH 10 ML FLUSH IVF SCH (09:00)
[2016-12-18] MEDS: CHLORHEXIDINE 0.12% (ORAL KIT) 15 ML CUP MT SCH ×2 (09:06→20:00)
[2016-12-18] MEDS: ARTIFICIAL TEARS OPTH OINT 3.5 APPLIC/3.5 GM TUBO EACH EYE SCH ×2 (09:06→21:00)
[2016-12-18] MEDS: HEPARIN SODIUM - SQ 10,000 UNITS/ML VIAL SQ SCH ×2 (09:07→21:04)
[2016-12-18] MEDS: predniSONE 20 MG TAB PO SCH (09:08)
[2016-12-18] MEDS: SODIUM CHLORIDE 1 GRAM TAB PO SCH (09:08)
[2016-12-18] MEDS: FAMOTIDINE 20 MG TAB NG SCH ×2 (09:08→21:03)
[2016-12-18] MEDS: LISINOPRIL 10 MG TAB PO SCH (09:09)
[2016-12-18] MEDS: POLYETHYLENE GLYCOL 17 GM PKG PO SCH (09:09)
[2016-12-18] MEDS: AMIODARONE 200 MG TAB OG-TUBE SCH ×2 (09:57→21:03)
[2016-12-18] MEDS: DIGOXIN 0.125 MG TAB PO SCH (09:57)
[2016-12-18] MEDS: POTASSIUM CHLOR 40 MEQ PREMIX 100 ML IV PRN (11:36)
--- NOTE | 2016-12-18 13:08 | HHI.HCPN ---
Reason for visit a. To assist with evaluation and management of symptoms including: pain, dyspnea, encephalopathy. b. To assist medical decision maker(s) with: better understanding of current medical conditions; weighing benefits/burdens of medical treatment options; making medical treatment decisions. . (Harper Westfall) Subjective/Interval History Patient seen and examined in ICU. patient resting in bed in no acute distress. Awake, alert x self, place and situation. Remains on mechanical ventilation via tracheostomy, communicating by mouthing words. Able to answer simple questions. Patient endorsing muscular weakness but reports feeling stronger than last week. Endorsing intermittent mild abdominal pain, denies shortness of breath, nausea or vomiting. No current pain at this time. Clinical course further complicated by large amounts of output from PEG tube, KUB 12/14/16 positive for hypodynamic ileus. Abdomen/pelvis CT 12/15/16 revealing distended bowel wall spatially the small bowel and the cecum, no perforation seen. Distended gallbladder with leukocytosis. Dr. Nguyen consulted on 12/16/16 for consideration for cholecystectomy tube placement. No surgical intervention recommended given patient's current clinical status. Patient currently on full ventilator support at 40% FiO2. Has consistently failed to SBT for the past 2 days secondary to tachypnea. Most recent chest x- ray 12/17/16 revealing worsening bibasilar patchy opacities. Patient remains afebrile, stable hemodynamically. Laboratory workup today revealing WBC 13.0, Hgb stable and 9.1, platelet count 344. Negative C. difficile on 12/15/16. Most recent abdominal x-ray 12/17/16 revealing gaseous distention of multiple bowel loops. No family at bedside. Reviewed current clinical management with patient. Patient wishing to continue with current medical management. Reviewed that dispo is still subject to his needs at time of discharge. Patient will likely require aggressive pulmonary rehabilitation; however, difficult disposition given no current payor source. Patient tells me that he is aware of ongoing distal planning. Offered assistance with completion of advance directives. Patient declined at this time, mouthing that he would like to keep his 3 children as HCP decision makers. Telephone call to patient's son Drake, left message in voicemail. . Family/friend interactions See interval note. . (Harper Westfall) Advance Directives Living Will: Never completed Health Care Surrogate: Never completed Durable Power of Doctor Of Dental Surgery: Never completed (Harper Westfall) Advance Directive Specifics Health Care Surrogate(s): Patient appears to be regaining medical decision-making capacity. Patient is single. Has 1 son (Drake Andrews) and 2 daughters (Ira Mcgovern and Krystyna Palma). According to [place] statutes, health care proxy decision-making would fall to the majority of adult children. Krystyna Roth and Drake wish to participate. . Significant change in goals: Goals of care remain unchanged. . (Harper Westfall) Objective Vital Signs Date Time Temp Pulse Resp B/P (MAP) Pulse Ox O2 Delivery O2 Flow Rate FiO2 12/18/16 12:00 97.7 62 26 147/62 (90) 96 12/18/16 12:00 50 12/18/16 12:00 62 12/18/16 11:26 94 40 12/18/16 10:52 98.0 58 32 127/59 (81) 95 12/18/16 10:00 59 12/18/16 09:40 40 12/18/16 08:39 95 40 12/18/16 08:00 58 12/18/16 08:00 40 12/18/16 06:00 63 12/18/16 05:43 16 12/18/16 04:04 94 40 12/18/16 04:00 61 12/18/16 04:00 97.2 61 16 109/59 (76) 97 12/18/16 04:00 40 12/18/16 02:00 62 12/18/16 00:00 97.7 58 16 104/56 (72) 97 12/18/16 00:00 58 12/18/16 00:00 40 12/17/16 23:37 98 40 12/17/16 22:00 62 12/17/16 20:00 97.1 57 16 100/59 (73) 95 12/17/16 20:00 57 12/17/16 20:00 40 12/17/16 19:45 98 40 12/17/16 18:00 62 12/17/16 16:00 98.8 62 34 117/65 (82) 99 12/17/16 16:00 40 12/17/16 16:00 62 12/17/16 15:25 100 40 12/17/16 14:26 60 12/17/16 13:14 99 40 Intake & Output 12/18/16 12/18/16 07:00 19:00 Intake Total 469 ml Output Total 750 ml Balance -281 ml IV Total 255 ml Tube Feeding 214 ml Output Urine Total 300 ml Stool Total 450 ml Chest Tube Drainage Total 0 ml # Voids 3 Physical Exam CONSTITUTIONAL/GENERAL: This is an overweight male resting in bed in no acute distress. TUBES/LINES/DRAINS: tracheostomy, PEG, Santiago catheter, SCDs to right leg, right chest tube. SKIN: Ecchymoses on upper extremities. Abrasion/ scab on right knee. EYES: eyes open, tracking. No discharge noted. CARDIOVASCULAR: Regular rate and rhythm. No murmur. Edema to bilateral lower extremities. RESPIRATORY/CHEST: On ventilator support via tracheostomy. Breath sounds coarse , right > left. Right chest tube with serosanguineous output. GASTROINTESTINAL: Abdomen obese, large, round. Bowel sounds present. Tolerating tube feeding. PEG tube to midabdomen. GENITOURINARY: Without palpable bladder distension. Catheter in place. MUSCULOSKELETAL: Extremities with 2+ edema. NEUROLOGICAL: Eyes open, tracking, alert to self x place and situation. Mouthing words to communicate. Following simple commands. Weak hand grasp bilaterally, right side stronger than left. Slightly moving bilateral lower extremities. PSYCHIATRIC: Awake, calm. . (Harper Westfall) Diagnostic Tests Laboratory Laboratory Tests Test 12/15/16 14:20 12/15/16 15:08 12/15/16 19:32 12/16/16 03:47 Activated Partial Thromboplast Time 20.7 SEC (24.3-30.1) 27.0 SEC (24.3-30.1) Stool C. difficile Toxin (PCR) NEGATIVE (NEGATIVE) Stl C. difficile Toxin Epiderm 027 PRESUMPTIVE NEGATIVE White Blood Count 17.7 TH/MM3 (4.0-11.0) 17.6 TH/MM3 (4.0-11.0) Red Blood Count 3.25 MIL/MM3 (4.50-5.90) 3.20 MIL/MM3 (4.50-5.90) Hemoglobin 9.9 GM/DL (13.0-17.0) 9.8 GM/DL (13.0-17.0) Hematocrit 29.8 % (39.0-51.0) 29.7 % (39.0-51.0) Mean Corpuscular Volume 91.5 FL (80.0-100.0) 92.7 FL (80.0-100.0) Mean Corpuscular Hemoglobin 30.5 PG (27.0-34.0) 30.7 PG (27.0-34.0) Mean Corpuscular Hemoglobin Concent 33.3 % (32.0-36.0) 33.1 % (32.0-36.0) Red Cell Distribution Width 15.2 % (11.6-17.2) 15.9 % (11.6-17.2) Platelet Count 357 TH/MM3 (150-450) 350 TH/MM3 (150-450) Mean Platelet Volume 6.9 FL (7.0-11.0) 6.9 FL (7.0-11.0) Neutrophils (%) (Auto) 84.6 % (16.0-70.0) 82.9 % (16.0-70.0) Lymphocytes (%) (Auto) 10.2 % (9.0-44.0) 10.6 % (9.0-44.0) Monocytes (%) (Auto) 4.9 % (0.0-8.0) 6.0 % (0.0-8.0) Eosinophils (%) (Auto) 0.1 % (0.0-4.0) 0.1 % (0.0-4.0) Basophils (%) (Auto) 0.2 % (0.0-2.0) 0.4 % (0.0-2.0) Neutrophils # (Auto) 15.0 TH/MM3 (1.8-7.7) 14.6 TH/MM3 (1.8-7.7) Lymphocytes # (Auto) 1.8 TH/MM3 (1.0-4.8) 1.9 TH/MM3 (1.0-4.8) Monocytes # (Auto) 0.9 TH/MM3 (0-0.9) 1.1 TH/MM3 (0-0.9) Eosinophils # (Auto) 0.0 TH/MM3 (0-0.4) 0.0 TH/MM3 (0-0.4) Basophils # (Auto) 0.0 TH/MM3 (0-0.2) 0.1 TH/MM3 (0-0.2) CBC Comment AUTO DIFF AUTO DIFF Differential Total Cells Counted 100 100 Neutrophils % (Manual) 87 % (16-70) 76 % (16-70) Lymphocytes % 6 % (9-44) 5 % (9-44) Monocytes % 3 % (0-8) 3 % (0-8) Neutrophils # (Manual) 16.1 TH/MM3 (1.8-7.7) 16.2 TH/MM3 (1.8-7.7) Metamyelocytes 4 % (0-1) Differential Comment FINAL DIFF MANUAL FINAL DIFF MANUAL Blood Urea Nitrogen 37 MG/DL (7-18) 32 MG/DL (7-18) Creatinine 0.26 MG/DL (0.60-1.30) 0.21 MG/DL (0.60-1.30) Random Glucose 85 MG/DL (74-106) 65 MG/DL (74-106) Total Protein 5.7 GM/DL (6.4-8.2) 5.9 GM/DL (6.4-8.2) Albumin 2.5 GM/DL (3.4-5.0) 2.5 GM/DL (3.4-5.0) Calcium Level 8.9 MG/DL (8.5-10.1) 8.5 MG/DL (8.5-10.1) Alkaline Phosphatase 131 U/L (45-117) 136 U/L (45-117) Aspartate Amino Transf (AST/SGOT) 30 U/L (15-37) 27 U/L (15-37) Alanine Aminotransferase (ALT/SGPT) 99 U/L (12-78) 93 U/L (12-78) Total Bilirubin 0.9 MG/DL (0.2-1.0) 1.0 MG/DL (0.2-1.0) Sodium Level 130 MEQ/L (136-145) 133 MEQ/L (136-145) Potassium Level 4.0 MEQ/L (3.5-5.1) 3.7 MEQ/L (3.5-5.1) Chloride Level 90 MEQ/L (98-107) 92 MEQ/L (98-107) Carbon Dioxide Level 32.8 MEQ/L (21.0-32.0) 32.5 MEQ/L (21.0-32.0) Anion Gap 7 MEQ/L (5-15) 9 MEQ/L (5-15) Estimat Glomerular Filtration Rate 366 ML/MIN (>89) 468 ML/MIN (>89) Band Neutrophils % 13 % (0-6) Myelocytes 3 % (0-0) Platelet Estimate NORMAL (NORMAL) Platelet Morphology Comment NORMAL (NORMAL) Test 12/17/16 03:54 12/17/16 05:41 12/18/16 05:00 Blood Urea Nitrogen 27 MG/DL (7-18) 22 MG/DL (7-18) Creatinine 0.17 MG/DL (0.60-1.30) 0.26 MG/DL (0.60-1.30) Random Glucose 46 MG/DL (74-106) 62 MG/DL (74-106) Total Protein 5.9 GM/DL (6.4-8.2) Albumin 2.4 GM/DL (3.4-5.0) Calcium Level 8.1 MG/DL (8.5-10.1) 8.5 MG/DL (8.5-10.1) Magnesium Level 2.2 MG/DL (1.5-2.5) Alkaline Phosphatase 114 U/L (45-117) Aspartate Amino Transf (AST/SGOT) 21 U/L (15-37) Alanine Aminotransferase (ALT/SGPT) 70 U/L (12-78) Total Bilirubin 1.0 MG/DL (0.2-1.0) Sodium Level 132 MEQ/L (136-145) 132 MEQ/L (136-145) Potassium Level 3.6 MEQ/L (3.5-5.1) 3.3 MEQ/L (3.5-5.1) Chloride Level 92 MEQ/L (98-107) 93 MEQ/L (98-107) Carbon Dioxide Level 30.0 MEQ/L (21.0-32.0) 31.5 MEQ/L (21.0-32.0) Anion Gap 10 MEQ/L (5-15) 8 MEQ/L (5-15) Estimat Glomerular Filtration Rate 597 ML/MIN (>89) 366 ML/MIN (>89) White Blood Count 13.0 TH/MM3 (4.0-11.0) 13.0 TH/MM3 (4.0-11.0) Red Blood Count 2.93 MIL/MM3 (4.50-5.90) 2.90 MIL/MM3 (4.50-5.90) Hemoglobin 9.0 GM/DL (13.0-17.0) 9.1 GM/DL (13.0-17.0) Hematocrit 27.2 % (39.0-51.0) 27.2 % (39.0-51.0) Mean Corpuscular Volume 93.1 FL (80.0-100.0) 93.6 FL (80.0-100.0) Mean Corpuscular Hemoglobin 30.8 PG (27.0-34.0) 31.3 PG (27.0-34.0) Mean Corpuscular Hemoglobin Concent 33.1 % (32.0-36.0) 33.4 % (32.0-36.0) Red Cell Distribution Width 15.6 % (11.6-17.2) 15.9 % (11.6-17.2) Platelet Count 348 TH/MM3 (150-450) 344 TH/MM3 (150-450) Mean Platelet Volume 6.5 FL (7.0-11.0) 6.6 FL (7.0-11.0) Neutrophils (%) (Auto) 86.7 % (16.0-70.0) Lymphocytes (%) (Auto) 9.5 % (9.0-44.0) Monocytes (%) (Auto) 3.1 % (0.0-8.0) Eosinophils (%) (Auto) 0.3 % (0.0-4.0) Basophils (%) (Auto) 0.4 % (0.0-2.0) Neutrophils # (Auto) 11.3 TH/MM3 (1.8-7.7) Lymphocytes # (Auto) 1.2 TH/MM3 (1.0-4.8) Monocytes # (Auto) 0.4 TH/MM3 (0-0.9) Eosinophils # (Auto) 0.0 TH/MM3 (0-0.4) Basophils # (Auto) 0.0 TH/MM3 (0-0.2) CBC Comment AUTO DIFF Differential Total Cells Counted 100 Neutrophils % (Manual) 70 % (16-70) Band Neutrophils % 14 % (0-6) Lymphocytes % 12 % (9-44) Monocytes % 3 % (0-8) Neutrophils # (Manual) 11.1 TH/MM3 (1.8-7.7) Myelocytes 1 % (0-0) Differential Comment FINAL DIFF MANUAL Platelet Estimate NORMAL (NORMAL) Platelet Morphology Comment NORMAL (NORMAL) Activated Partial Thromboplast Time 28.7 SEC (24.3-30.1) 27.4 SEC (24.3-30.1) (Harper Westfall) Result Diagram: 12/18/16 0500 12/18/16 0500 Procedures * 11/30/16 - PEG tube placement * 11/27/16 - tracheostomy * 11/23/16 - right chest tube placement. * 11/10/16 - ETT replaced. * 11/04/16 - arterial line placement. * 10/25/16 - Intubation and central line placed. . (Harper Westfall) Assessment and Plan Disease Oriented Problem List: (1) Acute respiratory failure (2) ARDS (adult respiratory distress syndrome) (3) COPD (chronic obstructive pulmonary disease) (4) Obesity hypoventilation syndrome (5) Leukocytosis (6) Sepsis (7) Hyperglycemia (8) Morbid obesity (9) Hypertension Symptom Scale: (1) Pain 0-10 Scale: 0 Comment: Denies pain at this time. (2) Dyspnea 0-10 Scale: 0 Comment: on vent to trach. (3) Encephalopathy 0-10 Scale: Unable to quantify Comment: Resolved. Pertinent Non-Medical Issues Psychosocial: notes indicate patient is single. Has one son and 2 daughters. Was living with his son prior to admission. Spiritual: unknown. Legal: Patient appears to be regaining medical decision-making capacity. Patient is single. Has 1 son (Drake Andrews) and 2 daughters (Ira Mcgovern and Krystyna Palma). According to [place] statutes, health care proxy decision- making would fall to the majority of adult children. Krystyna Roth and Drake wish to participate. Ethical issues impacting care: No ethical issues identified at this time. . . Important Contacts * Ira Mcgovern, daughter/ HCP: [phone] (cell) or [phone] ext. [phone] (work) * Drake Andrews, son/ HCP: [phone] (cell) or [phone] (work) * Krystyna Palma, daughter/ HCP: [phone] * Drake Henry girlfriend: [phone] . . Prognosis Mr. Andrews is an unfortunate 56-year-old male who was admitted with respiratory distress, pneumonia, ARDS with prolonged hospitalization/mechanical ventilation. 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 Patient remains a high risk for further complications, continue decline and . Patient will likely require acute rehabilitation upon discharge. . Code Status: Full Code Plan * MEDICAL DECISION-MAKING: Patient participating in medical decision-making. Has regained capacity, encephalopathy resolved. Patient communicating by mouthing words given tracheostomy. He appears to have a good understanding of his complex medical issues. No advance directives previously completed. Reviewed with patient that as per [place] law, healthcare proxy decision maker falls to the majority of his adult children, for which he has 3. Patient was offered assistance with completion of advance directives and was given the opportunity to appoint a designated healthcare surrogate. Patient declined at this time, mouthing that he would like to keep his 3 children as HCP decision makers. * CODE STATUS: Full code. * GOALS OF CARE: 12/18/16 -Patient electing to continue with current aggressive management to include full code. Patient's family fully supportive of patient's wishes. Reviewed that dispo is still subject to his needs at time of discharge/when medically cleared. Patient will likely require aggressive pulmonary rehabilitation; however, difficult disposition given no current payor source. Patient verbalized understanding. * SYMPTOMS: =Dyspnea: remains on prolonged mechanical ventilation s/p trach. Underlying COPD, obesity. Ongoing CPAP trials. = Pain, multifactorial given prolonged hospitalization, chest tube, tracheostomy. Oxycodone 5 mg q6hr around -the-clock. Patient appears comfortable and denies pain at the time of my visit. = Debility, myopathy likely secondary to critical illness, neuromuscular blockage and steroid use. Appears to be slightly improving, very weak bilateral hand grasp today, patient attempting to mobilize right leg. Will likely require acute rehabilitation upon discharge. * Palliative care contact information has been provided to patient and family. * Palliative care will continue to follow-up as needed throughout hospital course to assist with symptom management and clarification of goals. . (Harper Westfall) Time Spent Total Floor Time (mins): 24 (Total time to include review and summarization of medical records, physical exam, goals of care conversation with patient.) >50% Counseling/Coord of Care: Yes (Harper Westfall) Attestation To help prompt me to consider important information that might be impacting today's encounter and assessment, information from prior notes written by myself or my colleagues may have been "brought forward" into today's note. My signature on this note, however, is an attestation that I personally performed the exam, history, and/or decision-making noted today, and, unless otherwise indicated, the interactions with patient, family, and staff as well as the review of records all occurred today. I also attest that the listed assessment and stated plan reflect my best clinical judgment today based on the combination of historical information, prior notes, and today's exam/ interactions. When time spent is documented, it refers only to time spent today by the signer, or if indicated, combined time spent today by collaborating physician/nurse practitioner. (Harper Westfall) Collaborating MD Comments Chart reviewed. Case discussed with palliative care INTERNATIONAL ACCOUNTING MANAGER. Above note reviewed and I concur. . (Willem Elmore MD) Harper Westfall Dec 18, 2016 13:08 Willem Elmore MD Dec 20, 2016 17:16
--- NOTE | 2016-12-18 16:07 | HHI.GIFU ---
Subjective Remarks Pt remains on ventilator, unable to wean. Pt has ileus with some gasseous distension on yesterday's KUB. WBC is stable. Hct stable. VS stable. 3 bms two days ago. None today. Will increase miralax. Objective Vitals I&O Vital Signs Date Time Temp Pulse Resp B/P (MAP) Pulse Ox O2 Delivery O2 Flow Rate FiO2 12/18/16 14:00 58 12/18/16 12:00 99.1 62 26 147/62 (90) 96 12/18/16 12:00 50 12/18/16 12:00 62 12/18/16 11:26 94 40 12/18/16 10:52 98.0 58 32 127/59 (81) 95 12/18/16 10:00 59 12/18/16 09:40 40 12/18/16 08:39 95 40 12/18/16 08:00 56 12/18/16 08:00 40 12/18/16 06:00 63 12/18/16 05:43 16 12/18/16 04:04 94 40 12/18/16 04:00 61 12/18/16 04:00 97.2 61 16 109/59 (76) 97 12/18/16 04:00 40 12/18/16 02:00 62 12/18/16 00:00 97.7 58 16 104/56 (72) 97 12/18/16 00:00 58 12/18/16 00:00 40 12/17/16 23:37 98 40 12/17/16 22:00 62 12/17/16 20:00 97.1 57 16 100/59 (73) 95 12/17/16 20:00 57 12/17/16 20:00 40 12/17/16 19:45 98 40 12/17/16 18:00 62 I/O 12/17/16 12/17/16 12/17/16 12/18/16 12/18/16 12/18/16 07:00 15:00 23:00 07:00 15:00 23:00 Intake Total 100 ml 384 ml 469 ml Output Total 150 ml 750 ml Balance -150 ml 100 ml 384 ml -281 ml IV Total 100 ml 202 ml 255 ml Tube Feeding 62 ml 214 ml Other 120 ml Output Urine Total 50 ml 300 ml Stool Total 100 ml 450 ml Chest Tube Drainage Total 0 ml 0 ml # Voids 2 3 Laboratory Laboratory Tests Test 12/18/16 05:00 White Blood Count 13.0 Red Blood Count 2.90 Hemoglobin 9.1 Hematocrit 27.2 Mean Corpuscular Volume 93.6 Mean Corpuscular Hemoglobin 31.3 Mean Corpuscular Hemoglobin Concent 33.4 Red Cell Distribution Width 15.9 Platelet Count 344 Mean Platelet Volume 6.6 Activated Partial Thromboplast Time 27.4 Blood Urea Nitrogen 22 Creatinine 0.26 Random Glucose 62 Calcium Level 8.5 Sodium Level 132 Potassium Level 3.3 Chloride Level 93 Carbon Dioxide Level 31.5 Anion Gap 8 Estimat Glomerular Filtration Rate 366 Date/Time Source Procedure Growth Status 12/14/16 22:15 Blood Peripheral Aerobic Blood Culture - Preliminary NO GROWTH IN 4 DAYS Resulted 12/14/16 22:15 Blood Peripheral Anaerobic Blood Culture - Preliminary NO GROWTH IN 4 DAYS Resulted 11/08/16 14:15 Stool Stool Stool Occult Blood ([facility]LER) - Final HEMOCCULT NEGATIVE Complete 11/27/16 09:55 Sputum Endotracheal Gram Stain - Final Complete 11/27/16 09:55 Sputum Culture - Final Klebsiella Pneumoniae Stenotrophomonas Maltophilia Pseudomonas Aeruginosa Complete 12/14/16 18:10 Urine Catheterized Urine Urine Culture - Final NO GROWTH IN 48 HOURS. Complete Physical Exam HEENT: Normocephalic; atraumatic; no jaundice. CHEST: Tracheostomy to CPAP. Course breath sounds. CARDIAC: Irregular, rate controlled ABDOMEN: Soft, obese, mildly distended, bowel sounds hypoactive. Flexiseal EXTREMITIES: Generalized edema. SCIENCE PROFESSOR: Lethargic Assessment and Plan Plan ASSESSMENT - Severe Ileus. KUB (12/14/16)---> Diffuse air distention of the colon and small bowel loops characteristic of a hypodynamic ileus. He has associated nausea, abdominal pain, bloating. He was started on Reglan and received GoLYTELY overnight on 12/14. 12/15--began vomiting and his G-tube was placed to suction. The nurse reports that she immediately got out 5 L of brown material his abdomen is soft and mildly distended since his G-tube was placed to suction. CT scan abdomen and pelvis (12/15/16)-- distended bowel especially the small bowel and the cecum (4.5 cm). This is nonspecific. A transition point is not seen. This could relate to ileus. Oral contrast does extend to the rectum. By basilar areas of consolidation at the lung bases. There also is a possibility small pneumothorax on the right. The patient does have a right chest tube in place. G-tube. Distended gallbladder. Increased soft tissue density in the left lateral abdominal wall which could be from prior trauma or edema. KUB (12/17/16)----> Gaseous distention of multiple bowel loops. Percutaneous gastrostomy tube. Clinically, less distended. + BM. Reglan frequency increased by GS, Add Miralax. Will start Vital High protein at 20cc/hr. Once tolerating, will increase to GR 75cc/hr. - Dysphagia. S/P EGD (11/29/16)---> 1. Normal stomach mild esophagitis no transillumination or indentation seen-peg could not be placed endoscopically 2. Retroflexed views revealed a hiatal hernia. S/P G tube placement by IR (11/30/16). - Elevated LFTs, improved. T. Bili 1.0, AST 21, ALT 70, Alk Phosph 114. - Distended GB on CT. S/P GS evaluation, does not feel there is a need for cholecystomy tube, recommends starting TF when able. - Respiratory failure/ARDS/COPD/PNA. S/P tracheostomy, on CPAP. Prednisone, Nebs. - Sepsis/Leukocytosis. Sputum with Klebsiella pneumoniae, stenotrophomonas maltiophilia, PSAE. BCx (12/07) negative. WBC 13.0 , repeat cultures no growth in 2 day (Blood, urine). - Atrial fibrillation/flutter. Currently in Aflutter, Rate 70. Amiodarone. BB. Heparin, digoxin - HTN, per attending. PLAN - Vital High Protein at 20cc/hr - Cont. Reglan - Increase miralax. - Supportive care - CCM following - ID following - Palliative care following - Further recommendations to follow based on results of above Mark Fernandez MD Dec 18, 2016 16:06
--- NOTE | 2016-12-18 16:36 | HHI.IDPN ---
Subjective Subjective Remarks better tolerated CPAP earlier today off pressors denies abd pain tolerates TF + stooling blood clx neg @ 4 days Antibiotics zosyn vanco micafungin Allergies: Coded Allergies: No Known Allergies (Unverified , 10/25/16) Objective . Vital Signs Date Time Temp Pulse Resp B/P (MAP) Pulse Ox O2 Delivery O2 Flow Rate FiO2 12/18/16 16:00 40 12/18/16 16:00 99.0 60 31 154/67 (96) 95 12/18/16 16:00 60 12/18/16 14:00 58 12/18/16 12:00 99.1 62 26 147/62 (90) 96 12/18/16 12:00 50 12/18/16 12:00 62 12/18/16 11:26 94 40 12/18/16 10:52 98.0 58 32 127/59 (81) 95 12/18/16 10:00 59 12/18/16 09:40 40 12/18/16 08:39 95 40 12/18/16 08:00 56 12/18/16 08:00 40 12/18/16 06:00 63 12/18/16 05:43 16 12/18/16 04:04 94 40 12/18/16 04:00 61 12/18/16 04:00 97.2 61 16 109/59 (76) 97 12/18/16 04:00 40 12/18/16 02:00 62 12/18/16 00:00 97.7 58 16 104/56 (72) 97 12/18/16 00:00 58 12/18/16 00:00 40 12/17/16 23:37 98 40 12/17/16 22:00 62 12/17/16 20:00 97.1 57 16 100/59 (73) 95 12/17/16 20:00 57 12/17/16 20:00 40 12/17/16 19:45 98 40 12/17/16 18:00 62 . Laboratory Tests Test 12/17/16 05:41 12/18/16 05:00 White Blood Count 13.0 TH/MM3 13.0 TH/MM3 Red Blood Count 2.93 MIL/MM3 2.90 MIL/MM3 Hemoglobin 9.0 GM/DL 9.1 GM/DL Hematocrit 27.2 % 27.2 % Mean Corpuscular Volume 93.1 FL 93.6 FL Mean Corpuscular Hemoglobin 30.8 PG 31.3 PG Mean Corpuscular Hemoglobin Concent 33.1 % 33.4 % Red Cell Distribution Width 15.6 % 15.9 % Platelet Count 348 TH/MM3 344 TH/MM3 Mean Platelet Volume 6.5 FL 6.6 FL Neutrophils (%) (Auto) 86.7 % Lymphocytes (%) (Auto) 9.5 % Monocytes (%) (Auto) 3.1 % Eosinophils (%) (Auto) 0.3 % Basophils (%) (Auto) 0.4 % Neutrophils # (Auto) 11.3 TH/MM3 Lymphocytes # (Auto) 1.2 TH/MM3 Monocytes # (Auto) 0.4 TH/MM3 Eosinophils # (Auto) 0.0 TH/MM3 Basophils # (Auto) 0.0 TH/MM3 CBC Comment AUTO DIFF Differential Total Cells Counted 100 Neutrophils % (Manual) 70 % Band Neutrophils % 14 % Lymphocytes % 12 % Monocytes % 3 % Neutrophils # (Manual) 11.1 TH/MM3 Myelocytes 1 % Differential Comment FINAL DIFF MANUAL Platelet Estimate NORMAL Platelet Morphology Comment NORMAL Laboratory Tests Test 12/17/16 03:54 12/18/16 05:00 Blood Urea Nitrogen 27 MG/DL 22 MG/DL Creatinine 0.17 MG/DL 0.26 MG/DL Random Glucose 46 MG/DL 62 MG/DL Total Protein 5.9 GM/DL Albumin 2.4 GM/DL Calcium Level 8.1 MG/DL 8.5 MG/DL Magnesium Level 2.2 MG/DL Alkaline Phosphatase 114 U/L Aspartate Amino Transf (AST/SGOT) 21 U/L Alanine Aminotransferase (ALT/SGPT) 70 U/L Total Bilirubin 1.0 MG/DL Sodium Level 132 MEQ/L 132 MEQ/L Potassium Level 3.6 MEQ/L 3.3 MEQ/L Chloride Level 92 MEQ/L 93 MEQ/L Carbon Dioxide Level 30.0 MEQ/L 31.5 MEQ/L Anion Gap 10 MEQ/L 8 MEQ/L Estimat Glomerular Filtration Rate 597 ML/MIN 366 ML/MIN Imaging Last Impressions Chest X-Ray 12/17/16 0600 Signed Impressions: Service Date/Time: Saturday, December 17, 2016 04:03 - CONCLUSION: Worsening bibasilar patchy opacities. Right-sided chest tube without pneumothorax. Javier Ulloa MD Abdomen X-Ray 12/17/16 0600 Signed Impressions: Service Date/Time: Saturday, December 17, 2016 04:06 - CONCLUSION: 1. Gaseous distention of multiple bowel loops. 2. Percutaneous gastrostomy tube. Javier Ulloa MD Abdomen/Pelvis CT 12/15/16 0000 Signed Impressions: Service Date/Time: Thursday, December 15, 2016 10:50 - CONCLUSION: 1. Distended bowel especially the small bowel and the cecum. This is nonspecific. A transition point is not seen. This could relate to ileus. Oral contrast does extend to the rectum. 2. Bibasilar areas of consolidation at the lung bases. There also is a possible small pneumothorax on the right. The patient does have a right chest tube in place. 3. G-tube. 4. Distended gallbladder. 5. Increased soft tissue density in the left lateral abdominal wall which could be from prior trauma or edema. Jayson Soto MD Lower Extremity Ultrasound 12/09/16 0000 Signed Impressions: Service Date/Time: Friday, December 09, 2016 17:13 - CONCLUSION: 1. No evidence of DVT 2. Large complex mass in the pump to fossa characteristic of a hematoma. Joni Barfield MD Cervical Spine MRI 12/03/16 0000 Signed Impressions: Service Date/Time: Saturday, December 03, 2016 13:13 - CONCLUSION: Severely limited exam. I believe there is increased signal in the cervical cord mid C3 to mid C5. Ward Kim MD FACR Brain MRI 12/03/16 0000 Signed Impressions: Service Date/Time: Saturday, December 03, 2016 13:13 - CONCLUSION: 1. There is a small area of abnormal T2 signal in the left frontal cortex this is unchanged from the previous examination dated 11/26/16. This is nonspecific in appearance on the MRI. Differential considerations would be a small area of gliosis versus an old area of contusion. Follow up examination in 6 months to document stability would be warranted. 2. No findings to indicate acute cortical infarction are identified. Román Kim MD Gastrostomy Tube Placement 11/30/16 0000 Signed Impressions: Service Date/Time: Wednesday, November 30, 2016 12:22 - CONCLUSION: Uncomplicated gastrostomy tube placement as above. Jorge Jolly MD Liver Ultrasound 11/09/16 0000 Signed Impressions: Service Date/Time: Wednesday, November 09, 2016 13:58 - CONCLUSION: Sono dense liver without duct dilatation. 4 mm common duct. Ward Kim MD FACR Chest CT 11/06/16 0000 Signed Impressions: Service Date/Time: Sunday, November 06, 2016 11:24 - CONCLUSION: 1. Dense bilateral posterior lower lobe airspace consolidation consistent with aspiration versus less likely pneumonia. 2. Linear consolidation in the right middle lobe consistent with atelectasis versus aspiration. 3. Trace left and small right pleural effusions. 4. Support lines and tubes in good position. 5. Prominent coronary artery calcifications. Nico Vaughan MD Head CT 11/05/16 0000 Signed Impressions: Service Date/Time: Saturday, November 05, 2016 21:43 - CONCLUSION: 1. No acute intracranial abnormalities. Pansinus fluid opacification. Critsofer De Santiago MD Carotid Artery Ultrasound 10/25/16 0000 Signed Impressions: Service Date/Time: September 08:27 - CONCLUSION: Mild to moderate plaque in both carotid systems with less than 40%% diameter stenosis by velocity criteria. Jhonathan Dietz MD CT Angiography 10/25/16 0000 Signed Impressions: Service Date/Time: September 06:12 - CONCLUSION: 1. Negative for pulmonary embolism. 2. There is a fairly large area of masslike consolidation in the medial right lung involving posterior segment right upper lobe and medial aspect of right lower lobe. There is associated right hilar and mediastinal adenopathy measuring up to 2.1 cm. Differential diagnosis includes pneumonia or underlying lung neoplasm. Close followup imaging recommended after treatment for pneumonia, to assess for underlying mass. Cristofer De Santiago MD Physical Exam CONSTITUTIONAL/GENERAL: This is a morbidly obese patient, TUBES/LINES/DRAINS: SKIN: No jaundice, rashes, or lesions. Skin temperature appropriate. Not diaphoretic. NECK: trach in place, site OK CARDIOVASCULAR: No murmurs, rgular rat, rhythm No JVD. Peripheral pulses symmetric. RESPIRATORY/CHEST: Symmetric, unlabored respirations. coarse BS CT R with serous drainage GASTROINTESTINAL: Abdomen is soft , not distended, not tnder , no guarding or rebound. No hepato-splenomegaly, or palpable masses. No guarding. Bowel sounds present. Dignishiled in place with light brown liquid stool GENITOURINARY: Without palpable bladder distension. Santiago catheter in place with clear yellow urine MUSCULOSKELETAL: Extremities without clubbing, cyanosis, + edema, ecchymosis and indurated of L calf, improving NEUROLOGICAL: awake, alert, communicates and follows commands PSYCHIATRIC: calm Assessment & Plan Remarks PNA, Kleb pneumo - failrly sensitive - PSAE , Stenotrophomonas and Kleb in the sputum ? unclear is Steno malt is a coloniser vs a true pathogen, but improved after Bactrim was introdused ARDS Acute VDRF, tolerating weaning - sp trach R sided PTX sp CT Abx associated diarrhea, C.diff negative agasin 12/15 Abnormal UA, CANDIDURIA Persiastent leukocytosis and bandemia - stable to slowly improving New sepsis, suspect GI : acute acalculous cholecystits initialy suspected - less likley - appreciate gen surg input Pt is myuch more stable today REC's: cont zosyn for now dc vanco julianna micafungin fu clinically dw Mariana De Guzman MD Dec 18, 2016 16:36
[2016-12-18] MEDS: ESCITALOPRAM OXALATE 10 MG TAB PO SCH (21:03)
[2016-12-19] VITALS (26 sets, daily range): BP systolic 99–148; BP diastolic 55–87; PULSE 57–69; RESP 14–45; TEMP 97.9–98.8; O2SAT 93–100
[2016-12-19] MEDS: SODIUM CHLORIDE 1 GRAM TAB PO SCH ×3 (00:38→21:00)
[2016-12-19] MEDS: METOCLOPRAMIDE HCL 10 MG/2 ML VIAL IV SCH ×4 (00:39→17:46)
[2016-12-19] MEDS: METOPROLOL TARTRATE 50 MG TAB PO SCH ×4 (00:39→17:46)
[2016-12-19] MEDS: DILTIAZEM HCL 90 MG TAB PO SCH ×4 (00:39→17:46)
[2016-12-19] MEDS: INSULIN NovoLIN REGULAR SUPPLEMENTAL SCALE SQ SCH ×4 (02:00→20:00)
[2016-12-19] MEDS: CHLORHEXIDINE GLUCONATE 2 % 1 PACK (2 CLOTHS) TOP SCH (04:00)
[2016-12-19] MEDS: oxyCODONE HCL ORAL CONC 5 MG/0.25 ML SYRINGE PEG SCH (04:50)
[2016-12-19] MEDS: PIPERACIL-TAZO 4.5 GM PREMIX 100 ML IV SCH ×4 (04:50→21:00)
[2016-12-19 05:48] LABS: HEMATOCRIT 27.7 % (39.0-51.0); MEAN CELL VOLUME 92.6 FL (80.0-100.0); MEAN CORPUSCULAR HEMOGLOBIN 31.2 PG (27.0-34.0); MEAN CORPUSCULAR HGB CONC 33.7 % (32.0-36.0); PLATELET COUNT 375 TH/MM3 (150-450); RED BLOOD COUNT 2.99 MIL/MM3 (4.50-5.90); RED CELL DISTRIBUTION WIDTH 15.7 % (11.6-17.2); REVIEW FLAG FINAL; WHITE BLOOD COUNT 16.1 TH/MM3 (4.0-11.0)
[2016-12-19 05:58] LABS: APTT (PATIENT) 26.9 SEC (24.3-30.1)
[2016-12-19 06:21] LABS: BICARBONATE 32.5 MEQ/L (21.0-32.0); POTASSIUM 3.7 MEQ/L (3.5-5.1)
--- NOTE | 2016-12-19 06:32 | HHI.CCPN ---
Subjective Remarks/Hospital Course 56-year-old very pleasant gentleman with past medical history of COPD, and hypertension presents complaining of shortness of breath and nausea, generalized fatigue and chills for 2 days. He thinks it has been from being out in the heat. Denies any fever, chest pain, vomiting, abdominal pain, focal weakness or numbness. In the emergency department his saturation was in mid 80s on arrival with auditory wheezing and tachypnea. He was placed on 4 liters of NC and saturating in the low 90. He does not use oxygen at home. He also mentioned 2 days ago, he came home and was sitting in a chair and was taking his shoes off when he passed out. States he woke up and was still on the chair. This has never happen before. 10/25: Patient intubated secondary to increasing oxygen requirements, altered mental status. Discussed with son. Somewhat hypertensive post intubation. 10/26: Placed on rotaprone bed last evening. Flolan initiated. Saturations improved. Afebrile. Remains on Nimbex drip. 10/27: T max 99.7. Tolerated on not prone position 2 hours yesterday. Tolerating trickle feeds. FiO2 down to 55% 10/28: Tmax 99.9. When unprone for chest x-ray this a.m. desaturated. Currently on 90% FiO2. Actually hypertensive. No bowel movements. Remains paralyzed 10/29: Remains intubated sedated on continuous Prone therapy Except for chest x- ray. Fever 100.8. Panculture requested. Zyvox added. Continue IV sedation with propofol and fentanyl and Versed, neuromuscular paralysis with Nimbex 10/30: Prone cycle changed to 8 hr prone, 1 hr supine from 10/29. Due to hypoxia will continue with same cycle today. Chest x-ray remains unchanged. Patient remains severely hypoxemic FiO2 at 75% PEEP at 16. WBC count worsened to 18. Remains neuromuscularly paralyzed. 10/31: Patient remains critically ill but stable. Oxygen saturation 95% on 55 of FiO2 and PEEP of 16. Reduce PEEP to 14, FiO2 to 50% and start weaning Flolan. Increase supine time to 4 hours, reduce Prone time to 6 hours 11/01: Patient remains intubated sedated critically ill on neuromuscular paralysis. FiO2 reduced to 50, I will attempt PEEP wean gradually to 12 today. Prone/supine cycles will be changed to 6 hours each 11/02: FiO2 remains at 50%, PEEP reduced from 14 to 12 today, TV increased to 600 and RR to 20, in anticipation of discontinuing prone therapy, which will be DCd today. Off Flolan for 2 days 11/03: off pronation. fio2 up to 65% , peep 12. agitation causing desaturation. minimal improvements. 11/04: good diuresis yesterday, but despite that, fio2 persists at 65% and spo2 decreasing to 91% today. no real improvements and some worsening of pulmonary function despite ongoing aggressive therapies. still not safe for SBT given hypoxia. also severely hypertensive this morning. 11/05: continues to diurese well and Cr still at baseline. fio2 at 90% however, and no clinical improvements in mental status or hypoxia. still unsafe for SBT given hypoxemia. off pathway. hypertension under much better control. poor neuro status is concerning. 11/06: Remains severely hypoxemic. FiO2 was 100% PEEP 14. I reduce FiO2 to 90% after increasing PEEP to 16. Developed a flutter with RVR overnight, currently on Cardizem drip. Unable to do SBT due to very high settings 11/07: Remains hypoxemic and but able to wean FiO2 down to 80% with PEEP of 16. Remains unresponsive on sedation. Unable to trach due to his high vent settings and high FiO2. Remains on Cardizem and 15 mg per hour, with rate controlled a flutter. We'll start by mouth Cardizem in an attempt to wean IV Cardizem 11/08: Remains critically ill hypoxic but FiO2 now weaned to 60%, PEEP remains at 16. Very heavily sedated no withdrawal to pain. Will hold all continuos sedation. Sputum culture with Klebsiella sensitive to Rocephin. A flutter persistent, will start IV heparin 11/09 Patient is sedated with Diprivan and intubated, On Cardizem drip 15mg/hr for Aflutter. Heparin drip stated yesterday. 11/10 Patient remains sedated and intubated. On Heparin drip. Persistent fever with Tmax 102.5. ETT was replaced yesterday. 11/11 Patient was placed on Cardizem and amio drips overnight for Afib with RVR. Sedated with Diprivan and intubated. On Heparin drip. T;99.3 this morning. 11/12 Patient remains intubated and sedated with Diprivan. On Cardizem drip 15mg/ hr. Afebrile, Tmax 100.6 11/13 Patient is sedate with Diprivan and intubated. In Afib with RVR now on Amio drip. Tmax 100,4 11/14 Remains intubated sedated with propofol and fentanyl. Afib rate controlled , remains on amiodarone and Cardizem gtt. Fio2 remains high at 70%, PEEP 12. CXR persistent bibasilar infiltrates/effusion 11/15: Currently sedated with propofol and fentanyl drips. Currently in A. fib/ flutter on amiodarone drip and Cardizem drip. PEEP increased to 14. FiO2 65. 11/16: Tmax 100.1. Patient more alert and tachycardic this AM. Adding midazolam gtt for sedation and currently tolerating tube feeding. Positive BM. PEEP to 12. FiO2 75% 11/17: Afebrile. FiO2 down to 60%. PEEP set 12. Multiple tracheostomy hopefully on Saturday. Heart rate better control. 11/18: Afebrile. Discontinuing amiodarone drip today and switching to oral. FiO2 between 60 and 70%. Restarting epoprostenol in attempt to get FiO2 down to 50% for tracheostomy tomorrow 11/19 No events overnight. Sedated with Diprivan, Fentanyl and versed. Still requiring high O2 - on PRVC with PEEP;12 and FIO2 70%. Afebrile. 11/20 Patient remains sedated with Diprivan, versed, Fentanyl and intubated. On PRVC with PEEP: 12, FIO2 50% , sats 88-90%. On Heparin drip. 11/21: Tmax 99.4. Tolerating tube feeds. Remains on heparin drip. FiO2 down to 55%. PEEP of 10. Eyes open blinks spontaneously. Does squeeze and weakly on left side with encouragement 11/22: Intubated heavily sedated. FiO2 50%, remains on Flolan. PEEP 10. Bumex 1 mg 1 and Diamox 500 mg 1 IV. She will negative balance. Heparinized tube feeds on hold for tracheostomy today at 12. Remains in atrial flutter 11/23 Patient remains sedated with Diprivan, Fentanyl, Versed and intubated. On Heparin drip. For CT guided thoracentesis today. On APRV 11/24 Patient remains sedated and intubated. 20Fr CT placed yesterday for right sided PTX. Spiked fever with T 101.6. Remains on Heparin drip. 11/25 Patient remains intubated with Diprivan, fentanyl and intubated. On PRVC with PEEP: 10, FIO2 50%. Afebrile. 11/26 Patient is sedated with Diprivan, Fentanyl and intubated. Afebrile. On Heparin drip. On PRVC with PEEP: 10, FIO2 60% 11/27 Patient is scheduled for trach in OR today. Sedated and intubated. Heparin drip is off for trach. 11/28 Patient s/p trach yesterday. Sedated with Diprivan and Fentanyl. Afebrile. On PRVC with PEEP; 10 and FIO2 50% 11/29 No events overnight. Sedated and on ventilator via trach. For PEG tube placement today. Heparin drip on hold. 11/30: Currently afebrile. MAXIMUM TEMPERATURE 100. Positive BM via fecal containing device. Tube feeds on hold secondary to plan PEG tube placement today. Heparin drip on hold as well. 12/01: Status post PEG tube placement yesterday per IR. Heparin drip and tube feeds restarted today. Restarting insulin detemir. Awake and alert and weakly follows commands on sedation 12/02: Tmax 99.3. Tube feeds restarted and tolerating. Awake and alert and weakly follows commands. Plan for MRI brain/C-spine a.m. 12/03. 12/03: Patient is awake. Tolerating PRVC, very weakly wiggling cedric toes. MRI today 12/04/16: Tolerated CPAP with high settings yesterday for several hours 15 over 5. Becomes tachypneic and pressure support wean. MRI of the C-spine shows increased signal, no cord compression. Discussed with Dr. Riggins. He is requesting flexion extension films of C spine. 12/05/16: Desaturated on CPAP today. Now on full vent support with 50% FiO2. Continues to have functional quadriparesis. Dr Riggins reviewed MRI spine- he is not sure about increased signal in cord, but there could be cervical hyperextension injury, from intubation. 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 Cannot do cspine extension/flexion films. Repeat MRI c- spine in a few weeks 12/06/16: Patient remains on vent, placed on CPAP 11/29 now, on 50% FiO2. No improvement in neuro exam patient is awake. Able to minimally shrug shoulders. Continues to behave like functional quadriplegia 12/07/16: Tolerated CPAP approximately 6 hours yesterday but did not tolerate TPs. Having anxiety and some frustration due to neuromuscular weakness. I will add Lexapro. Give Bumex 1 mg x1, CXR shows pleural effusions. 12/08: On 11/29 PS since AM. CBC chest x-ray stable. Lexapro added yesterday for depression. Urine output 3.5 L in 24 hours 12/09: Tolerated CPAP well yesterday tolerated TPs for 2 hours but failed to CPAP today due to hypoxia and tachycardia. Currently on PRVC received metoprolol and fentanyl push with improved heart rate 12/10: Patient is tolerating CPAP today. Left popliteal fossa hematoma, large on left lower extremity ultrasound. Heparin and Coumadin placed on hold will get orthopedic consult 12/11: Slightly improved power of LE, unchanged on upper. L calf remains tense, but pulses are palpable. Holding anticoagulation 12/12: Tolerating CPAP 09/07. Slight improvement in muscle strength. Heparin remains on hold 12/13: Heparin remains on hold. No increase in hematoma clinically. Tolerating CPAP. 12/14: Patient complains of not feeling well today. Wbc count increased to 21, 000. KUB shows ileus. Hold tube feeds, Reglan 10 mg IV every 8 hours, send panculture 12/15: Large amount of output from the PEG tube and intermittent wall suction. Stat CT of the abdomen pelvis did not show any perforation or evidence of colitis. Shows ileus. Keep nothing by mouth IV. GI is following. CT chest shows tiny anterior pneumothorax. More Lethargic today, white count was 21,000 yesterday. Hypotensive systolic blood pressure in 70s. Probable severe sepsis/ septic shock. Start Zosyn and Levaquin and single dose of vancomycin. Check C Diff 12/16: General surgery does not recommend gallbladder drainage at this time. WBC count decreasing on Zosyn vancomycin and micafungin. 17.6 today. F/U KUB in am. GI ID following 12/17: no improvements or changes. still on full vent support. failing SBTs for tachypnea. 12/18: still failing SBTs. still on full vent support. no changes. needs placement. SUBJECTIVE: 12/19: Afebrile. Tolerating tube feeds at 20 cc an hour. 4 cc stool. A.m. laboratories pending. Objective Vital Signs Date Time Temp Pulse Resp B/P (MAP) Pulse Ox O2 Delivery O2 Flow Rate FiO2 12/19/16 06:00 57 12/19/16 04:00 40 12/19/16 04:00 98.3 29 129/87 (101) 100 Intake and Output 12/19/16 12/19/16 12/20/16 08:00 16:00 00:00 Intake Total 552 ml Output Total 1000 ml Balance -448 ml Result Diagram: 12/19/16 0430 12/19/16 0430 Other Results Microbiology Date/Time Source Procedure Growth Status 12/14/16 22:15 Blood Peripheral Aerobic Blood Culture - Preliminary NO GROWTH IN 4 DAYS Resulted 12/14/16 22:15 Blood Peripheral Anaerobic Blood Culture - Preliminary NO GROWTH IN 4 DAYS Resulted 11/08/16 14:15 Stool Stool Stool Occult Blood ([facility]) - Final HEMOCCULT NEGATIVE Complete 11/27/16 09:55 Sputum Endotracheal Gram Stain - Final Complete 11/27/16 09:55 Sputum Culture - Final Klebsiella Pneumoniae Stenotrophomonas Maltophilia Pseudomonas Aeruginosa Complete 12/14/16 18:10 Urine Catheterized Urine Urine Culture - Final NO GROWTH IN 48 HOURS. Complete Imaging Last Impressions Chest X-Ray 12/17/16599 Signed Impressions: Service Date/Time: Saturday, December 17, 2016 04:03 - CONCLUSION: Worsening bibasilar patchy opacities. Right-sided chest tube without pneumothorax. Javier Ulloa MD Abdomen X-Ray 12/17/16 06 Signed Impressions: Service Date/Time: Saturday, December 17, 2016 04:06 - CONCLUSION: 1. Gaseous distention of multiple bowel loops. 2. Percutaneous gastrostomy tube. Javier Ulloa MD Abdomen/Pelvis CT 12/15/16 0000 Signed Impressions: Service Date/Time: Thursday, December 15, 2016 10:50 - CONCLUSION: 1. Distended bowel especially the small bowel and the cecum. This is nonspecific. A transition point is not seen. This could relate to ileus. Oral contrast does extend to the rectum. 2. Bibasilar areas of consolidation at the lung bases. There also is a possible small pneumothorax on the right. The patient does have a right chest tube in place. 3. G-tube. 4. Distended gallbladder. 5. Increased soft tissue density in the left lateral abdominal wall which could be from prior trauma or edema. Jayson Soto MD Lower Extremity Ultrasound 12/09/16 0000 Signed Impressions: Service Date/Time: Friday, December 09, 2016 17:13 - CONCLUSION: 1. No evidence of DVT 2. Large complex mass in the pump to fossa characteristic of a hematoma. Joni Barfield MD Cervical Spine MRI 12/03/16 0000 Signed Impressions: Service Date/Time: Saturday, December 03, 2016 13:13 - CONCLUSION: Severely limited exam. I believe there is increased signal in the cervical cord mid C3 to mid C5. Ward Kim MD FACR Brain MRI 12/03/16 0000 Signed Impressions: Service Date/Time: Saturday, December 03, 2016 13:13 - CONCLUSION: 1. There is a small area of abnormal T2 signal in the left frontal cortex this is unchanged from the previous examination dated 11/26/16. This is nonspecific in appearance on the MRI. Differential considerations would be a small area of gliosis versus an old area of contusion. Follow up examination in 6 months to document stability would be warranted. 2. No findings to indicate acute cortical infarction are identified. Román Kim MD Gastrostomy Tube Placement 11/30/16 0000 Signed Impressions: Service Date/Time: Wednesday, November 30, 2016 12:22 - CONCLUSION: Uncomplicated gastrostomy tube placement as above. Jorge Jolly MD Liver Ultrasound 11/09/16 0000 Signed Impressions: Service Date/Time: Wednesday, November 09, 2016 13:58 - CONCLUSION: Sono dense liver without duct dilatation. 4 mm common duct. Ward Kim MD FACR Chest CT 11/06/16 0000 Signed Impressions: Service Date/Time: Sunday, November 06, 2016 11:24 - CONCLUSION: 1. Dense bilateral posterior lower lobe airspace consolidation consistent with aspiration versus less likely pneumonia. 2. Linear consolidation in the right middle lobe consistent with atelectasis versus aspiration. 3. Trace left and small right pleural effusions. 4. Support lines and tubes in good position. 5. Prominent coronary artery calcifications. Nico Vaughan MD Head CT 11/05/16 0000 Signed Impressions: Service Date/Time: Saturday, November 05, 2016 21:43 - CONCLUSION: 1. No acute intracranial abnormalities. Pansinus fluid opacification. Cristofer De Santiago MD Carotid Artery Ultrasound 10/25/16 0000 Signed Impressions: Service Date/Time: September 08:27 - CONCLUSION: Mild to moderate plaque in both carotid systems with less than 40%% diameter stenosis by velocity criteria. Jhonathan Dietz MD CT Angiography 10/25/16 0000 Signed Impressions: Service Date/Time: September 06:12 - CONCLUSION: 1. Negative for pulmonary embolism. 2. There is a fairly large area of masslike consolidation in the medial right lung involving posterior segment right upper lobe and medial aspect of right lower lobe. There is associated right hilar and mediastinal adenopathy measuring up to 2.1 cm. Differential diagnosis includes pneumonia or underlying lung neoplasm. Close followup imaging recommended after treatment for pneumonia, to assess for underlying mass. Cristofer De Santiago MD Objective Remarks GENERAL: 56-year-old male, critically ill currently on PRVC via tracheostomy in no acute distress SKIN: Warm and dry. Positive intertrigo HEAD: Atraumatic. Normocephalic. EYES: Pupils equal and round about 3 mm bilaterally and reactive. ENT: No nasal bleeding or discharge. NECK: Trachea midline. No JVD. Tracheostomy site has some yellow secretions surrounding CARDIOVASCULAR: Distant heart sounds. Bradycardic, RR. S1, S2. No S4. Without murmur RESPIRATORY: Bilateral mild expiratory wheezes and coarse crackles anteriorly appreciated. GASTROINTESTINAL: Abdomen soft, obese, distended. PEG tube site is clean dry and intact MUSCULOSKELETAL: Extremities with trace lower extremity. No obvious deformities. NEUROLOGICAL: Eyes are open. Moves fingers and toes. Shrugs shoulders. Sensation appears intact A/P Assessment and Plan Neuro/Psych: Functional quadriparesis Metabolic encephalopathy CIM/SHEFALI s/p Neuromuscular paralysis for Prone therapy Syncope Depression Encephalopathy most likely secondary to sepsis MRI C-spine showing increased signals C3-C5 region. Dr Riggins reviewed MRI spine- not sure about increased signal in cord, could be cervical hyperextension injury, from intubation according to him. Unable to do flexion- extension films of the C-spine (trached patient). Repeat MRI c-spine probably next week. 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 Holding oxycodone 5 mg every 6 per tube. prn hydromorphone, fentanyl 50 g every hour for breakthrough. Haloperidol 5mg iv q4h prn for agitation. Escitalopram 10 mg qhs or depression from 12/07/16. MRI brain 11/26: Small focal signal abnormality in the superior medial left frontal lobe. Could be sequela from prior insult such as a contusion or small infarct. No acute infarct MRI brain 12/[address] on admission revealed no acute intracranial findings, CT brain 11/05- no acute findings. opacification of sinuses. EEG 11/20: No seizure activity. EEG 11/09: severe encephalopathy PT/OT for range of motion, up to stretcher chair as tolerated CV: Hypotension-resolved Atrial fib/ flutter with RVR Hypertension, now intermittently hypotensive On Amiodarone 200mg Q12, Digoxin 0.125 mg daily (Dig. level 0.5 on 12/01). PO Diltiazem 90 mg PO q6hr, metoprolol 50mg Q6 due to hyperextension DCd CLONIDINE 12/06/16 Coumadin and heparin 12/10 held due to left popliteal fossa hematoma. Placed on sq heparin for DVT prophylaxis Echo 10/25 EF 60-65%. Repeat echo with bubble study: 11/22: No shunt seen Resp: Acute, now chronic hypoxemic Respiratory failure s/p trach 11/27 Spontaneous Right sided PTX secondary to barotrauma COPD exacerbation Pneumonia most likely community-acquired Obesity hypoventilation syndrome Tobacco use disorder On [facility] /1.04/01/39. Albuterol/ipratropium aerosols every 4 hours of albuterol aerosols every 2 hours PRN. Ventilator bundle Gross tolerating CPAP until Thursday 12/14 prior to developing ileus Budesonide 0.5 mg/2 mL aerosols twice a day. Prednisone 20 mg daily s/p trach 11/[address] Martin #[facility]. Pulmonary/Dr. Wynne has followed s/p 20Fr CT placed for right PTX 11/23, monitor CT drainage. Leave CT in place until vent settings, hypoxia improved, may have tiny apical pneumo on CT CT pulmonary angio revealed no pulmonary embolus. Masslike consolidation in the posterior right upper lobe and medial right lower lobe. Lymphadenopathy to 1 cm right hilum and subcarinal. Atelectasis left lower lobe. Discontinued Prone therapy 11/02/16. GI: Ileus - resolved. Morbid Obesity Elevated LFT's- now within normal. PEG tube placement 11/30. US liver: No ductal dilatation tube feeds with vital high-protein currently at 20 cc an hour. Goal 75 cc an hour Metoclopramide 10 mg every 6 hours IV. No Cholecystostomy tube recommended by Dr. Nguyen Famotidine 20 milligrams mg twice a day for GI prophylaxis /renal/FEN: Hyponatremia Monitor renal function, I/O's, electrolytes replacement per protocol. Currently on sodium chloride 1 g every 12 hours Endo: Hyperglycemia SSI Q6h with Regular Insulin mild protocol for glycemic control. Previously insulin detemir 62 units twice a day. Restarted 15 units twice a day 12/01. Decreased attenuation units twice daily 12/19 due to hypoglycemia Adequate blood sugar control . Heme: Normocytic anemia Leukocytosis L popliteal fossa hematoma - stable. Monitor CBC, coags- Heparin drip/Coumadin on hold it on low-dose subcutaneous heparin currently Monitor closely for compartment syndrome ID: Severe sepsis - resolved. HAP Placed back on piperacillin/tazobactam with a stop date 12/22 Discontinued vancomycin and micafungin by ID, WBC trending down ID Amanda Haas, F/U ríos culture, C Diff- NGTD. ABX completed 12/11. (piperacillin/tazobactam and sulfamethoxazole/ trimethoprim 800/160 2 tablets 3 times a day) Sputum: Klebsiella, Stenotrophomonas and Pseudomonas 11/27 Sputum cx 11/23: Kleb, Pseudomonas, s/p (ceftriaxone and fluconazole course). ID is following-Dr. Patel s/p ceftriaxone 11/02-11/09 for Enterobacter pneumonia. Repeat sputum Klebsiella sensitive to Rocephin 10/29/16-Enterobacter in sputum, 11/06/16, 11/10 sputum- Klebsiella Urine Legionella and pneumococcal antigens negative and influenza negative C-diff PCR is negative Access RUE PICC placed 11/05 through 11/15 replaced 11/16 with left upper extremity PICC Prophylaxis GI, famotidine. DVT - IV heparin gtt, Coumadin DCd 12/10 due to left popliteal hematoma, O Heparin 5000 U q12 sq 11/09 Doppler US LE negative for DVT Palliative care is following Overall impression: very slow if any forward progress. off pathway. needs aggressive pulmonary rehab at an LTAC facility but no funding source. Continue daily SBTs and very slow weaning as tolerated. Ubaldo Story MD Dec 19, 2016 06:31
[2016-12-19] MEDS: CHLORHEXIDINE 0.12% (ORAL KIT) 15 ML CUP MT SCH ×2 (08:46→20:00)
[2016-12-19] MEDS: SODIUM CHLORIDE 0.9% FLUSH 10 ML FLUSH IVF SCH (08:47)
[2016-12-19] MEDS: SODIUM CHLORIDE 0.9% FLUSH 10 ML FLUSH IV FLUSH SCH (08:47)
[2016-12-19] MEDS: SODIUM CHLORIDE 0.9% FLUSH 10 ML FLUSH SCH ×2 (08:47→21:00)
[2016-12-19] MEDS: POLYETHYLENE GLYCOL 17 GM PKG PO SCH (09:00)
[2016-12-19] MEDS: INSULIN DETEMIR 100 UNITS/ML VIAL SQ SCH ×2 (09:00→21:00)
[2016-12-19] MEDS: ARTIFICIAL TEARS OPTH OINT 3.5 APPLIC/3.5 GM TUBO EACH EYE SCH ×2 (09:00→21:00)
[2016-12-19 09:14] LABS: INDIRECT BILIRUBIN 0.5 MG/DL (0.0-0.8); TOTAL BILIRUBIN ADULT 0.9 MG/DL (0.2-1.0)
--- NOTE | 2016-12-19 09:14 | RADRPT ---
EXAM DATE/TIME: 12/19/2016 07:55 [place] COMPARISON: ABDOMEN KUB ONLY, December 17, 2016, 4:06. INDICATIONS : Rule out ileus. MEDICAL HISTORY : Hypercholesterolemia. Hypertension Chronic obstructive pulmonary disease. SURGICAL HISTORY : None. ENCOUNTER: Subsequent ACUITY: 2 weeks PAIN SCORE: Non-responsive. LOCATION: Bilateral Abdomen FINDINGS: There is gas diffusely throughout loops of small and large bowel. Small bowel loops are minimally pr ominent measuring up to 3.3 cm in width. Her cutaneous gastrostomy in place. CONCLUSION: Mildly dilated loops of small and large bowel characteristic of ileus. Fito Joshua MD on December 19, 2016 at 9:12 Board Certified Radiologist. This report was verified electronically.
[2016-12-19] MEDS: DIGOXIN 0.125 MG TAB PO SCH (09:16)
[2016-12-19] MEDS: AMIODARONE 200 MG TAB OG-TUBE SCH ×2 (09:16→21:00)
[2016-12-19] MEDS: FAMOTIDINE 20 MG TAB NG SCH ×2 (09:17→21:00)
[2016-12-19] MEDS: predniSONE 20 MG TAB PO SCH (09:17)
[2016-12-19] MEDS: LISINOPRIL 10 MG TAB PO SCH (09:18)
[2016-12-19] MEDS: HEPARIN SODIUM - SQ 10,000 UNITS/ML VIAL SQ SCH ×2 (09:18→21:00)
[2016-12-19] MEDS ORDERED: PHENYLEPHRINE HCL 10 MG/ML VIAL ONE (09:19)
[2016-12-19] MEDS: RESP: ALBUTEROL 2.5 MG/IPRATROPIUM 0.5 MG NEB (SCH) NEB ×4 (09:23→19:48)
[2016-12-19] MEDS: RESP: BUDESONIDE 0.5 MG/2 ML NEB NEB SCH ×2 (09:24→19:49)
--- NOTE | 2016-12-19 13:19 | HHI.GIFU ---
Subjective Remarks Patient is stable, blood sugar a little low. On tube feeds at 20cc per hour. Stooling now more actively due to miralax possibly. He can probably tolerate more feeding. Will increase to 30cc per hour. Discussed case with nurse. Objective Vitals I&O Vital Signs Date Time Temp Pulse Resp B/P (MAP) Pulse Ox O2 Delivery O2 Flow Rate FiO2 12/19/16 11:32 99 40 12/19/16 10:00 63 12/19/16 10:00 63 14 121/67 (85) 99 12/19/16 09:26 40 12/19/16 09:20 96 40 12/19/16 09:01 60 23 110/63 (79) 98 12/19/16 09:00 50 12/19/16 08:01 98.0 62 16 119/63 (81) 96 12/19/16 08:00 63 12/19/16 08:00 40 12/19/16 07:26 99 40 12/19/16 07:00 57 45 108/60 (76) 99 12/19/16 06:01 57 29 99/55 (70) 99 12/19/16 06:00 57 12/19/16 05:00 60 16 115/64 (81) 98 12/19/16 04:00 40 12/19/16 04:00 98.3 64 29 129/87 (101) 100 12/19/16 04:00 64 12/19/16 03:40 99 40 12/19/16 02:00 58 12/19/16 00:29 93 40 12/19/16 00:00 98.8 65 25 148/70 (96) 99 12/19/16 00:00 40 12/19/16 00:00 65 12/18/16 22:00 58 12/18/16 20:00 54 12/18/16 20:00 99.1 54 23 124/56 (78) 97 12/18/16 20:00 40 12/18/16 19:47 98 40 12/18/16 18:00 64 12/18/16 16:49 97 40 12/18/16 16:00 40 12/18/16 16:00 99.0 60 31 154/67 (96) 95 12/18/16 16:00 60 12/18/16 14:00 58 I/O 12/18/16 12/18/16 12/18/16 12/19/16 12/19/16 12/19/16 07:00 15:00 23:00 07:00 15:00 23:00 Intake Total 469 ml 571 ml 552 ml Output Total 750 ml 300 ml 1000 ml Balance -281 ml 271 ml -448 ml Intake Oral 0 ml IV Total 255 ml 344 ml 354 ml Tube Feeding 214 ml 227 ml 198 ml Output Urine Total 300 ml 300 ml 600 ml Stool Total 450 ml 400 ml Chest Tube Drainage Total 0 ml 0 ml 0 ml # Voids 3 3 Laboratory Laboratory Tests Test 12/19/16 04:30 12/19/16 09:10 White Blood Count 16.1 Red Blood Count 2.99 Hemoglobin 9.3 Hematocrit 27.7 Mean Corpuscular Volume 92.6 Mean Corpuscular Hemoglobin 31.2 Mean Corpuscular Hemoglobin Concent 33.7 Red Cell Distribution Width 15.7 Platelet Count 375 Mean Platelet Volume 6.4 Activated Partial Thromboplast Time 26.9 Blood Urea Nitrogen 17 Creatinine 0.31 Random Glucose 68 Calcium Level 8.7 Sodium Level 134 Potassium Level 3.7 Chloride Level 93 Carbon Dioxide Level 32.5 Anion Gap 9 Estimat Glomerular Filtration Rate 299 Total Bilirubin 0.9 Direct Bilirubin 0.4 Indirect Bilirubin 0.5 Aspartate Amino Transf (AST/SGOT) 34 Alanine Aminotransferase (ALT/SGPT) 60 Alkaline Phosphatase 94 Total Protein 5.8 Albumin 2.4 Amylase Level 46 Lipase 255 Ammonia LESS THAN 10 Date/Time Source Procedure Growth Status 12/14/16 22:15 Blood Peripheral Aerobic Blood Culture - Final NO GROWTH IN 5 DAYS Complete 12/14/16 22:15 Blood Peripheral Anaerobic Blood Culture - Final NO GROWTH IN 5 DAYS Complete 11/08/16 14:15 Stool Stool Stool Occult Blood (TYLER) - Final HEMOCCULT NEGATIVE Complete 11/27/16 09:55 Sputum Endotracheal Gram Stain - Final Complete 11/27/16 09:55 Sputum Culture - Final Klebsiella Pneumoniae Stenotrophomonas Maltophilia Pseudomonas Aeruginosa Complete 12/14/16 18:10 Urine Catheterized Urine Urine Culture - Final NO GROWTH IN 48 HOURS. Complete Physical Exam HEENT: Normocephalic; atraumatic; no jaundice. CHEST: Tracheostomy to CPAP. Course breath sounds. CARDIAC: Irregular, rate controlled ABDOMEN: Soft, obese, mildly distended, bowel sounds hypoactive. Flexiseal EXTREMITIES: Generalized edema. 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 KUB (12/14/16)---> Diffuse air distention of the colon and small bowel loops characteristic of a hypodynamic ileus. He has associated nausea, abdominal pain, bloating. He was started on Reglan and received GoLYTELY overnight on 12/14. 12/15--began vomiting and his G-tube was placed to suction. The nurse reports that she immediately got out 5 L of brown material his abdomen is soft and mildly distended since his G-tube was placed to suction. CT scan abdomen and pelvis (12/15/16)-- distended bowel especially the small bowel and the cecum (4.5 cm). This is nonspecific. A transition point is not seen. This could relate to ileus. Oral contrast does extend to the rectum. By basilar areas of consolidation at the lung bases. There also is a possibility small pneumothorax on the right. The patient does have a right chest tube in place. G-tube. Distended gallbladder. Increased soft tissue density in the left lateral abdominal wall which could be from prior trauma or edema. KUB (12/17/16)----> Gaseous distention of multiple bowel loops. Percutaneous gastrostomy tube. Clinically, less distended. + BM. Reglan frequency increased by GS, Add Miralax. Will start Vital High protein at 20cc/hr. Once tolerating, will increase to GR 75cc/hr. - Dysphagia. S/P EGD (11/29/16)---> 1. Normal stomach mild esophagitis no transillumination or indentation seen-peg could not be placed endoscopically 2. Retroflexed views revealed a hiatal hernia. S/P G tube placement by IR (11/30/16). - Elevated LFTs, improved. T. Bili 1.0, AST 21, ALT 70, Alk Phosph 114. - Distended GB on CT. S/P GS evaluation, does not feel there is a need for cholecystomy tube, recommends starting TF when able. - Respiratory failure/ARDS/COPD/PNA. S/P tracheostomy, on CPAP. Prednisone, Nebs. - Sepsis/Leukocytosis. Sputum with Klebsiella pneumoniae, stenotrophomonas maltiophilia, PSAE. BCx (12/07) negative. WBC 13.0 , repeat cultures no growth in 2 day (Blood, urine). - Atrial fibrillation/flutter. Currently in Aflutter, Rate 70. Amiodarone. BB. Heparin, digoxin - HTN, per attending. PLAN - Vital High Protein at 30cc/hr - Cont. Reglan - continue miralax for one more day then hold to see if he can be off of it. - Supportive care - CCM following - ID following - Palliative care following - Further recommendations to follow based on results of above Mark Fernandez MD Dec 19, 2016 13:19
[2016-12-19] MEDS: REMOVE OLD FENTANYL PATCH T-DERMAL SCH (14:00)
--- NOTE | 2016-12-19 15:05 | HHI.PR ---
Subjective Subjective Notes Responds to commands; no RUQ pain/tenderness Objective Vitals/I&O Vital Signs Date Time Temp Pulse Resp B/P (MAP) Pulse Ox O2 Delivery O2 Flow Rate FiO2 12/19/16 14:00 69 12/19/16 14:00 33 140/71 (94) 100 12/19/16 12:00 98.3 12/19/16 12:00 50 Labs Laboratory Tests Test 12/19/16 04:30 12/19/16 09:10 White Blood Count 16.1 Red Blood Count 2.99 Hemoglobin 9.3 Hematocrit 27.7 Mean Corpuscular Volume 92.6 Mean Corpuscular Hemoglobin 31.2 Mean Corpuscular Hemoglobin Concent 33.7 Red Cell Distribution Width 15.7 Platelet Count 375 Mean Platelet Volume 6.4 Activated Partial Thromboplast Time 26.9 Blood Urea Nitrogen 17 Creatinine 0.31 Random Glucose 68 Calcium Level 8.7 Sodium Level 134 Potassium Level 3.7 Chloride Level 93 Carbon Dioxide Level 32.5 Anion Gap 9 Estimat Glomerular Filtration Rate 299 Total Bilirubin 0.9 Direct Bilirubin 0.4 Indirect Bilirubin 0.5 Aspartate Amino Transf (AST/SGOT) 34 Alanine Aminotransferase (ALT/SGPT) 60 Alkaline Phosphatase 94 Total Protein 5.8 Albumin 2.4 Amylase Level 46 Lipase 255 Ammonia LESS THAN 10 Date/Time Source Procedure Growth Status 12/14/16 22:15 Blood Peripheral Aerobic Blood Culture - Final NO GROWTH IN 5 DAYS Complete 12/14/16 22:15 Blood Peripheral Anaerobic Blood Culture - Final NO GROWTH IN 5 DAYS Complete 11/08/16 14:15 Stool Stool Stool Occult Blood (TYLER) - Final HEMOCCULT NEGATIVE Complete 11/27/16 09:55 Sputum Endotracheal Gram Stain - Final Complete 11/27/16 09:55 Sputum Culture - Final Klebsiella Pneumoniae Stenotrophomonas Maltophilia Pseudomonas Aeruginosa Complete 12/14/16 18:10 Urine Catheterized Urine Urine Culture - Final NO GROWTH IN 48 HOURS. Complete Abdomen: Non-distended A/P Assessment and Plan Hydrops of gallbladder LFT's normal WBC's elevated but stable Tolerating tube feeding at low rate. Would continue to increase TF as tolerated. No intervention at this time. Would hold on cholecystostomy tube for now. Will see as needed. Jhonathan Nguyen MD Dec 19, 2016 15:05
[2016-12-19] MEDS: ESCITALOPRAM OXALATE 10 MG TAB PO SCH (21:00)
[2016-12-20] VITALS (24 sets, daily range): BP systolic 106–137; BP diastolic 58–68; PULSE 60–78; RESP 15–35; TEMP 98.2–98.7; O2SAT 93–100
[2016-12-20] MEDS: RESP: ALBUTEROL 2.5 MG/IPRATROPIUM 0.5 MG NEB (SCH) NEB ×6 (00:12→19:38)
[2016-12-20] MEDS: INSULIN NovoLIN REGULAR SUPPLEMENTAL SCALE SQ SCH ×4 (02:00→20:00)
[2016-12-20] MEDS: PIPERACIL-TAZO 4.5 GM PREMIX 100 ML IV SCH ×3 (03:00→15:46)
[2016-12-20] MEDS: CHLORHEXIDINE GLUCONATE 2 % 1 PACK (2 CLOTHS) TOP SCH (04:00)
--- NOTE | 2016-12-20 04:00 | RADRPT ---
EXAM DATE/TIME: 12/20/2016 02:58 [facility] COMPARISON: CHEST SINGLE AP, December 17, 2016, 4:03. INDICATIONS : Shortness of breath, possible pulmonary disease. MEDICAL HISTORY : Hypercholesterolemia. Hypertension Chronic obstructive pulmonary disease. SURGICAL HISTORY : None. ENCOUNTER: Subsequent ACUITY: 2 weeks PAIN SCORE: Non-responsive. LOCATION: Bilateral chest FINDINGS: A single view of the chest demonstrates a cardiomegaly bibasilar density. Tracheostomy tube unchanged . Right-sided chest tube without pneumothorax. PICC line is stable in position. Osseous structures a re intact. CONCLUSION: 1. Cardiomegaly with stable bibasilar densities. 2. Right-sided chest tube without pneumothorax. Javier Ulloa MD on December 20, 2016 at 3:57 Board Certified Radiologist. This report was verified electronically.
[2016-12-20 07:01] LABS: APTT (PATIENT) 25.6 SEC (24.3-30.1)
[2016-12-20 07:11] LABS: AUTOMATED NEUTROPHIL # 9.1 TH/MM3 (1.8-7.7); BASOPHIL # 0.1 TH/MM3 (0-0.2); BASOPHIL % 0.8 % (0.0-2.0); EOSINOPHIL # 0.1 TH/MM3 (0-0.4); EOSINOPHIL % 0.6 % (0.0-4.0); HEMATOCRIT 28.1 % (39.0-51.0); LYMPH % 12.5 % (9.0-44.0); LYMPHOCYTE # 1.4 TH/MM3 (1.0-4.8); MEAN CELL VOLUME 93.8 FL (80.0-100.0); MEAN CORPUSCULAR HEMOGLOBIN 31.3 PG (27.0-34.0); MEAN CORPUSCULAR HGB CONC 33.4 % (32.0-36.0); MONO % 6.7 % (0.0-8.0); NEUT % 79.4 % (16.0-70.0); PLATELET COUNT 381 TH/MM3 (150-450); RED CELL DISTRIBUTION WIDTH 15.2 % (11.6-17.2); WHITE BLOOD COUNT 11.4 TH/MM3 (4.0-11.0)
[2016-12-20 07:20] LABS: HEMO FLAGS AUTO DIFF
[2016-12-20 07:53] LABS: ANION GAP 10 MEQ/L (5-15); BICARBONATE 30.8 MEQ/L (21.0-32.0); BLOOD UREA NITROGEN 13 MG/DL (7-18); CHLORIDE 95 MEQ/L (98-107); MAGNESIUM 2.2 MG/DL (1.5-2.5); POTASSIUM 3.3 MEQ/L (3.5-5.1); SODIUM (NA) 136 MEQ/L (136-145)
[2016-12-20 07:54] LABS: AST (GOT) 35 U/L (15-37); GLOMERULAR FILTRATION RATE 366 ML/MIN (>89)
[2016-12-20] MEDS: DILTIAZEM HCL 90 MG TAB PO SCH ×4 (07:56→18:11)
[2016-12-20] MEDS: METOPROLOL TARTRATE 50 MG TAB PO SCH ×4 (07:56→18:11)
[2016-12-20] MEDS: METOCLOPRAMIDE HCL 10 MG/2 ML VIAL IV SCH ×4 (07:56→18:11)
[2016-12-20 08:09] LABS: ALKALINE PHOSPHATASE 91 U/L (45-117); ALT (GPT) 64 U/L (12-78); DIGOXIN 0.5 NG/ML (0.8-2.0)
[2016-12-20] MEDS: ARTIFICIAL TEARS OPTH OINT 3.5 APPLIC/3.5 GM TUBO EACH EYE SCH ×2 (09:00→20:53)
[2016-12-20] MEDS: POLYETHYLENE GLYCOL 17 GM PKG PO SCH (09:00)
[2016-12-20] MEDS: INSULIN DETEMIR 100 UNITS/ML VIAL SQ SCH ×2 (09:00→20:52)
[2016-12-20] MEDS: LISINOPRIL 10 MG TAB PO SCH (09:00)
[2016-12-20] MEDS: RESP: BUDESONIDE 0.5 MG/2 ML NEB NEB SCH ×2 (09:04→19:38)
[2016-12-20 09:17] LABS: BANDS 7 % (0-6); EOSINOPHILS 2 % (0-4); MYELOCYTES 2 % (0-0); POLYS (SEG NEUTROPHILS) 61 % (16-70); WBC DIFF SAMPLE 100
[2016-12-20 09:18] LABS: PLATELET ESTIMATE SMEAR NORMAL (NORMAL); PLATELET MORPHOLOGY NORMAL (NORMAL); SCAN/DIFF FINAL DIFF MANUAL
[2016-12-20] MEDS: SODIUM CHLORIDE 1 GRAM TAB PO SCH ×2 (09:56→20:52)
[2016-12-20] MEDS: HEPARIN SODIUM - SQ 10,000 UNITS/ML VIAL SQ SCH ×2 (09:57→20:52)
[2016-12-20] MEDS: predniSONE 20 MG TAB PO SCH (09:57)
[2016-12-20] MEDS: DIGOXIN 0.125 MG TAB PO SCH (09:57)
[2016-12-20] MEDS: FAMOTIDINE 20 MG TAB NG SCH ×2 (09:57→20:52)
[2016-12-20] MEDS: AMIODARONE 200 MG TAB OG-TUBE SCH ×2 (09:57→20:52)
[2016-12-20] MEDS: SODIUM CHLORIDE 0.9% FLUSH 10 ML FLUSH IV FLUSH SCH (09:58)
[2016-12-20] MEDS: SODIUM CHLORIDE 0.9% FLUSH 10 ML FLUSH IVF SCH (09:58)
[2016-12-20] MEDS: SODIUM CHLORIDE 0.9% FLUSH 10 ML FLUSH SCH ×2 (09:58→20:52)
[2016-12-20] MEDS: CHLORHEXIDINE 0.12% (ORAL KIT) 15 ML CUP MT SCH ×2 (10:01→20:00)
--- NOTE | 2016-12-20 14:24 | HHI.CCPN ---
Subjective Remarks/Hospital Course 56-year-old very pleasant gentleman with past medical history of COPD, and hypertension presents complaining of shortness of breath and nausea, generalized fatigue and chills for 2 days. He thinks it has been from being out in the heat. Denies any fever, chest pain, vomiting, abdominal pain, focal weakness or numbness. In the emergency department his saturation was in mid 80s on arrival with auditory wheezing and tachypnea. He was placed on 4 liters of NC and saturating in the low 90. He does not use oxygen at home. He also mentioned 2 days ago, he came home and was sitting in a chair and was taking his shoes off when he passed out. States he woke up and was still on the chair. This has never happen before. 10/25: Patient intubated secondary to increasing oxygen requirements, altered mental status. Discussed with son. Somewhat hypertensive post intubation. 10/26: Placed on rotaprone bed last evening. Flolan initiated. Saturations improved. Afebrile. Remains on Nimbex drip. 10/27: T max 99.7. Tolerated on not prone position 2 hours yesterday. Tolerating trickle feeds. FiO2 down to 55% 10/28: Tmax 99.9. When unprone for chest x-ray this a.m. desaturated. Currently on 90% FiO2. Actually hypertensive. No bowel movements. Remains paralyzed 10/29: Remains intubated sedated on continuous Prone therapy Except for chest x- ray. Fever 100.8. Panculture requested. Zyvox added. Continue IV sedation with propofol and fentanyl and Versed, neuromuscular paralysis with Nimbex 10/30: Prone cycle changed to 8 hr prone, 1 hr supine from 10/29. Due to hypoxia will continue with same cycle today. Chest x-ray remains unchanged. Patient remains severely hypoxemic FiO2 at 75% PEEP at 16. WBC count worsened to 18. Remains neuromuscularly paralyzed. 10/31: Patient remains critically ill but stable. Oxygen saturation 95% on 55 of FiO2 and PEEP of 16. Reduce PEEP to 14, FiO2 to 50% and start weaning Flolan. Increase supine time to 4 hours, reduce Prone time to 6 hours 11/01: Patient remains intubated sedated critically ill on neuromuscular paralysis. FiO2 reduced to 50, I will attempt PEEP wean gradually to 12 today. Prone/supine cycles will be changed to 6 hours each 11/02: FiO2 remains at 50%, PEEP reduced from 14 to 12 today, TV increased to 600 and RR to 20, in anticipation of discontinuing prone therapy, which will be DCd today. Off Flolan for 2 days 11/03: off pronation. fio2 up to 65% , peep 12. agitation causing desaturation. minimal improvements. 11/04: good diuresis yesterday, but despite that, fio2 persists at 65% and spo2 decreasing to 91% today. no real improvements and some worsening of pulmonary function despite ongoing aggressive therapies. still not safe for SBT given hypoxia. also severely hypertensive this morning. 11/05: continues to diurese well and Cr still at baseline. fio2 at 90% however, and no clinical improvements in mental status or hypoxia. still unsafe for SBT given hypoxemia. off pathway. hypertension under much better control. poor neuro status is concerning. 11/06: Remains severely hypoxemic. FiO2 was 100% PEEP 14. I reduce FiO2 to 90% after increasing PEEP to 16. Developed a flutter with RVR overnight, currently on Cardizem drip. Unable to do SBT due to very high settings 11/07: Remains hypoxemic and but able to wean FiO2 down to 80% with PEEP of 16. Remains unresponsive on sedation. Unable to trach due to his high vent settings and high FiO2. Remains on Cardizem and 15 mg per hour, with rate controlled a flutter. We'll start by mouth Cardizem in an attempt to wean IV Cardizem 11/08: Remains critically ill hypoxic but FiO2 now weaned to 60%, PEEP remains at 16. Very heavily sedated no withdrawal to pain. Will hold all continuos sedation. Sputum culture with Klebsiella sensitive to Rocephin. A flutter persistent, will start IV heparin 11/09 Patient is sedated with Diprivan and intubated, On Cardizem drip 15mg/hr for Aflutter. Heparin drip stated yesterday. 11/10 Patient remains sedated and intubated. On Heparin drip. Persistent fever with Tmax 102.5. ETT was replaced yesterday. 11/11 Patient was placed on Cardizem and amio drips overnight for Afib with RVR. Sedated with Diprivan and intubated. On Heparin drip. T;99.3 this morning. 11/12 Patient remains intubated and sedated with Diprivan. On Cardizem drip 15mg/ hr. Afebrile, Tmax 100.6 11/13 Patient is sedate with Diprivan and intubated. In Afib with RVR now on Amio drip. Tmax 100,4 11/14 Remains intubated sedated with propofol and fentanyl. Afib rate controlled , remains on amiodarone and Cardizem gtt. Fio2 remains high at 70%, PEEP 12. CXR persistent bibasilar infiltrates/effusion 11/15: Currently sedated with propofol and fentanyl drips. Currently in A. fib/ flutter on amiodarone drip and Cardizem drip. PEEP increased to 14. FiO2 65. 11/16: Tmax 100.1. Patient more alert and tachycardic this AM. Adding midazolam gtt for sedation and currently tolerating tube feeding. Positive BM. PEEP to 12. FiO2 75% 11/17: Afebrile. FiO2 down to 60%. PEEP set 12. Multiple tracheostomy hopefully on Saturday. Heart rate better control. 11/18: Afebrile. Discontinuing amiodarone drip today and switching to oral. FiO2 between 60 and 70%. Restarting epoprostenol in attempt to get FiO2 down to 50% for tracheostomy tomorrow 11/19 No events overnight. Sedated with Diprivan, Fentanyl and versed. Still requiring high O2 - on PRVC with PEEP;12 and FIO2 70%. Afebrile. 11/20 Patient remains sedated with Diprivan, versed, Fentanyl and intubated. On PRVC with PEEP: 12, FIO2 50% , sats 88-90%. On Heparin drip. 11/21: Tmax 99.4. Tolerating tube feeds. Remains on heparin drip. FiO2 down to 55%. PEEP of 10. Eyes open blinks spontaneously. Does squeeze and weakly on left side with encouragement 11/22: Intubated heavily sedated. FiO2 50%, remains on Flolan. PEEP 10. Bumex 1 mg 1 and Diamox 500 mg 1 IV. She will negative balance. Heparinized tube feeds on hold for tracheostomy today at 12. Remains in atrial flutter 11/23 Patient remains sedated with Diprivan, Fentanyl, Versed and intubated. On Heparin drip. For CT guided thoracentesis today. On APRV 11/24 Patient remains sedated and intubated. 20Fr CT placed yesterday for right sided PTX. Spiked fever with T 101.6. Remains on Heparin drip. 11/25 Patient remains intubated with Diprivan, fentanyl and intubated. On PRVC with PEEP: 10, FIO2 50%. Afebrile. 11/26 Patient is sedated with Diprivan, Fentanyl and intubated. Afebrile. On Heparin drip. On PRVC with PEEP: 10, FIO2 60% 11/27 Patient is scheduled for trach in OR today. Sedated and intubated. Heparin drip is off for trach. 11/28 Patient s/p trach yesterday. Sedated with Diprivan and Fentanyl. Afebrile. On PRVC with PEEP; 10 and FIO2 50% 11/29 No events overnight. Sedated and on ventilator via trach. For PEG tube placement today. Heparin drip on hold. 11/30: Currently afebrile. MAXIMUM TEMPERATURE 100. Positive BM via fecal containing device. Tube feeds on hold secondary to plan PEG tube placement today. Heparin drip on hold as well. 12/01: Status post PEG tube placement yesterday per IR. Heparin drip and tube feeds restarted today. Restarting insulin detemir. Awake and alert and weakly follows commands on sedation 12/02: Tmax 99.3. Tube feeds restarted and tolerating. Awake and alert and weakly follows commands. Plan for MRI brain/C-spine a.m. 12/03. 12/03: Patient is awake. Tolerating PRVC, very weakly wiggling cedric toes. MRI today 12/04/16: Tolerated CPAP with high settings yesterday for several hours 15 over 5. Becomes tachypneic and pressure support wean. MRI of the C-spine shows increased signal, no cord compression. Discussed with Dr. Riggins. He is requesting flexion extension films of C spine. 12/05/16: Desaturated on CPAP today. Now on full vent support with 50% FiO2. Continues to have functional quadriparesis. Dr Riggins reviewed MRI spine- he is not sure about increased signal in cord, but there could be cervical hyperextension injury, from intubation. 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 Cannot do cspine extension/flexion films. Repeat MRI c- spine in a few weeks 12/06/16: Patient remains on vent, placed on CPAP 11/29 now, on 50% FiO2. No improvement in neuro exam patient is awake. Able to minimally shrug shoulders. Continues to behave like functional quadriplegia 12/07/16: Tolerated CPAP approximately 6 hours yesterday but did not tolerate TPs. Having anxiety and some frustration due to neuromuscular weakness. I will add Lexapro. Give Bumex 1 mg x1, CXR shows pleural effusions. 12/08: On 11/29 PS since AM. CBC chest x-ray stable. Lexapro added yesterday for depression. Urine output 3.5 L in 24 hours 12/09: Tolerated CPAP well yesterday tolerated TPs for 2 hours but failed to CPAP today due to hypoxia and tachycardia. Currently on PRVC received metoprolol and fentanyl push with improved heart rate 12/10: Patient is tolerating CPAP today. Left popliteal fossa hematoma, large on left lower extremity ultrasound. Heparin and Coumadin placed on hold will get orthopedic consult 12/11: Slightly improved power of LE, unchanged on upper. L calf remains tense, but pulses are palpable. Holding anticoagulation 12/12: Tolerating CPAP 09/07. Slight improvement in muscle strength. Heparin remains on hold 12/13: Heparin remains on hold. No increase in hematoma clinically. Tolerating CPAP. 12/14: Patient complains of not feeling well today. Wbc count increased to 21, 000. KUB shows ileus. Hold tube feeds, Reglan 10 mg IV every 8 hours, send panculture 12/15: Large amount of output from the PEG tube and intermittent wall suction. Stat CT of the abdomen pelvis did not show any perforation or evidence of colitis. Shows ileus. Keep nothing by mouth IV. GI is following. CT chest shows tiny anterior pneumothorax. More Lethargic today, white count was 21,000 yesterday. Hypotensive systolic blood pressure in 70s. Probable severe sepsis/ septic shock. Start Zosyn and Levaquin and single dose of vancomycin. Check C Diff 12/16: General surgery does not recommend gallbladder drainage at this time. WBC count decreasing on Zosyn vancomycin and micafungin. 17.6 today. F/U KUB in am. GI ID following 12/17: no improvements or changes. still on full vent support. failing SBTs for tachypnea. 12/18: still failing SBTs. still on full vent support. no changes. needs placement. 12/19: Afebrile. Tolerating tube feeds at 20 cc an hour. 4 cc stool. A.m. laboratories pending. SUBJECTIVE: 12/20: Afebrile. Awake and alert and interactive. Tolerating tube feeds at 30 cc an hour. Positive BM. Objective Vital Signs Date Time Temp Pulse Resp B/P (MAP) Pulse Ox O2 Delivery O2 Flow Rate FiO2 12/20/16 12:00 40 12/20/16 12:00 98.5 70 23 123/63 (83) 100 12/20/16 11:24 T-piece 6.00 Intake and Output 12/20/16 12/20/16 12/21/16 08:00 16:00 00:00 Intake Total 371 ml Output Total 1720 ml Balance -1349 ml Result Diagram: 12/20/16 0440 12/20/16 0440 Other Results Microbiology Date/Time Source Procedure Growth Status 12/14/16 22:15 Blood Peripheral Aerobic Blood Culture - Final NO GROWTH IN 5 DAYS Complete 12/14/16 22:15 Blood Peripheral Anaerobic Blood Culture - Final NO GROWTH IN 5 DAYS Complete 11/08/16 14:15 Stool Stool Stool Occult Blood ([facility]LER) - Final HEMOCCULT NEGATIVE Complete 11/27/16 09:55 Sputum Endotracheal Gram Stain - Final Complete 11/27/16 09:55 Sputum Culture - Final Klebsiella Pneumoniae Stenotrophomonas Maltophilia Pseudomonas Aeruginosa Complete 12/14/16 18:10 Urine Catheterized Urine Urine Culture - Final NO GROWTH IN 48 HOURS. Complete Imaging Last Impressions Chest X-Ray 12/20/16 0600 Signed Impressions: Service Date/Time: November 02:58 - CONCLUSION: 1. Cardiomegaly with stable bibasilar densities. 2. Right-sided chest tube without pneumothorax. Javier Ulloa MD Abdomen X-Ray 12/19/16 0000 Signed Impressions: Service Date/Time: Monday, December 19, 2016 07:55 - CONCLUSION: Mildly dilated loops of small and large bowel characteristic of ileus. Fito Joshua MD Abdomen/Pelvis CT 12/15/16 0000 Signed Impressions: Service Date/Time: Thursday, December 15, 2016 10:50 - CONCLUSION: 1. Distended bowel especially the small bowel and the cecum. This is nonspecific. A transition point is not seen. This could relate to ileus. Oral contrast does extend to the rectum. 2. Bibasilar areas of consolidation at the lung bases. There also is a possible small pneumothorax on the right. The patient does have a right chest tube in place. 3. G-tube. 4. Distended gallbladder. 5. Increased soft tissue density in the left lateral abdominal wall which could be from prior trauma or edema. Jayson Soto MD Lower Extremity Ultrasound 12/09/16 0000 Signed Impressions: Service Date/Time: Friday, December 09, 2016 17:13 - CONCLUSION: 1. No evidence of DVT 2. Large complex mass in the pump to fossa characteristic of a hematoma. Joni Barfield MD Cervical Spine MRI 12/03/16 0000 Signed Impressions: Service Date/Time: Saturday, December 03, 2016 13:13 - CONCLUSION: Severely limited exam. I believe there is increased signal in the cervical cord mid C3 to mid C5. Ward Kim MD FACR Brain MRI 12/03/16 0000 Signed Impressions: Service Date/Time: Saturday, December 03, 2016 13:13 - CONCLUSION: 1. There is a small area of abnormal T2 signal in the left frontal cortex this is unchanged from the previous examination dated 11/26/16. This is nonspecific in appearance on the MRI. Differential considerations would be a small area of gliosis versus an old area of contusion. Follow up examination in 6 months to document stability would be warranted. 2. No findings to indicate acute cortical infarction are identified. Román Kim MD Gastrostomy Tube Placement 11/30/16 0000 Signed Impressions: Service Date/Time: Wednesday, November 30, 2016 12:22 - CONCLUSION: Uncomplicated gastrostomy tube placement as above. Jorge Jolly MD Liver Ultrasound 11/09/16 0000 Signed Impressions: Service Date/Time: Wednesday, November 09, 2016 13:58 - CONCLUSION: Sono dense liver without duct dilatation. 4 mm common duct. Ward Kim MD FACR Chest CT 11/06/16 0000 Signed Impressions: Service Date/Time: Sunday, November 06, 2016 11:24 - CONCLUSION: 1. Dense bilateral posterior lower lobe airspace consolidation consistent with aspiration versus less likely pneumonia. 2. Linear consolidation in the right middle lobe consistent with atelectasis versus aspiration. 3. Trace left and small right pleural effusions. 4. Support lines and tubes in good position. 5. Prominent coronary artery calcifications. Nico Vaughan MD Head CT 11/05/16 0000 Signed Impressions: Service Date/Time: Saturday, November 05, 2016 21:43 - CONCLUSION: 1. No acute intracranial abnormalities. Pansinus fluid opacification. Cristofer De Santiago MD Carotid Artery Ultrasound 10/25/16 0000 Signed Impressions: Service Date/Time: September 08:27 - CONCLUSION: Mild to moderate plaque in both carotid systems with less than 40%% diameter stenosis by velocity criteria. Jhonathan Dietz MD CT Angiography 10/25/16 0000 Signed Impressions: Service Date/Time: , October 25, 2016 06:12 - CONCLUSION: 1. Negative for pulmonary embolism. 2. There is a fairly large area of masslike consolidation in the medial right lung involving posterior segment right upper lobe and medial aspect of right lower lobe. There is associated right hilar and mediastinal adenopathy measuring up to 2.1 cm. Differential diagnosis includes pneumonia or underlying lung neoplasm. Close followup imaging recommended after treatment for pneumonia, to assess for underlying mass. Cristofer De Santiago MD Objective Remarks GENERAL: 56-year-old male, critically ill currently on PRVC via tracheostomy in no acute distress SKIN: Warm and dry. Positive intertrigo HEAD: Atraumatic. Normocephalic. EYES: Pupils equal and round about 3 mm bilaterally and reactive. ENT: No nasal bleeding or discharge. NECK: Trachea midline. No JVD. Tracheostomy site has some yellow secretions surrounding CARDIOVASCULAR: Distant heart sounds. Bradycardic, RR. S1, S2. No S4. Without murmur RESPIRATORY: Bilateral mild expiratory wheezes and coarse crackles anteriorly appreciated. Right chest tube GASTROINTESTINAL: Abdomen soft, obese, distended. PEG tube site is clean dry and intact MUSCULOSKELETAL: Extremities with trace lower extremity. No obvious deformities. NEUROLOGICAL: Eyes are open. Moves fingers and toes. Shrugs shoulders. Squeezes hands. Nods head appropriately to questions. Sensation appears intact A/P Assessment and Plan Neuro/Psych: Metabolic encephalopathy CIM/SHEFALI s/p Neuromuscular paralysis for Prone therapy Syncope Depression Encephalopathy most likely secondary to sepsis MRI C-spine showing increased signals C3-C5 region. Dr Riggins reviewed MRI spine- not sure about increased signal in cord, could be cervical hyperextension injury, from intubation according to him. Unable to do flexion- extension films of the C-spine (trached patient). Repeat MRI c-spine probably next week. 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 Holding oxycodone 5 mg every 6 per tube. prn hydromorphone, fentanyl 50 g every hour for breakthrough. Haloperidol 5mg iv q4h prn for agitation. Escitalopram 10 mg qhs or depression from 12/07/16. MRI brain 11/26: Small focal signal abnormality in the superior medial left frontal lobe. Could be sequela from prior insult such as a contusion or small infarct. No acute infarct MRI brain 12/[address] on admission revealed no acute intracranial findings, CT brain 11/05- no acute findings. opacification of sinuses. EEG 11/20: No seizure activity. EEG 11/09: severe encephalopathy PT/OT for range of motion, up to stretcher chair as tolerated CV: Hypotension-resolved Atrial fib/ flutter with RVR Hypertension, now intermittently hypotensive On Amiodarone 200mg Q12, Digoxin 0.125 mg daily (Dig. level 0.5 on 12/01). PO Diltiazem 90 mg PO q6hr, metoprolol 50mg Q6 due to hyperextension DCd CLONIDINE 12/06/16 Coumadin and heparin 12/10 held due to left popliteal fossa hematoma. Placed on sq heparin for DVT prophylaxis Echo 10/25 EF 60-65%. Repeat echo with bubble study: 11/22: No shunt seen Resp: Acute, now chronic hypoxemic Respiratory failure s/p trach 11/27 Spontaneous Right sided PTX secondary to barotrauma COPD exacerbation Pneumonia most likely community-acquired Obesity hypoventilation syndrome Tobacco use disorder On [facility] /1.04/01/39. Albuterol/ipratropium aerosols every 4 hours of albuterol aerosols every 2 hours PRN. Ventilator bundle Gross tolerating CPAP until Thursday 12/14 prior to developing ileus Budesonide 0.5 mg/2 mL aerosols twice a day. Prednisone 20 mg daily s/p trach 11/[address] Martin #8 [place]. Pulmonary/Dr. Wynne has followed s/p 20Fr CT placed for right PTX 11/23, monitor CT drainage. Leave CT in place until vent settings, hypoxia improved, may have tiny apical pneumo on CT CT pulmonary angio revealed no pulmonary embolus. Masslike consolidation in the posterior right upper lobe and medial right lower lobe. Lymphadenopathy to 1 cm right hilum and subcarinal. Atelectasis left lower lobe. Discontinued Prone therapy 11/02/16. GI: Ileus - resolved. Morbid Obesity Elevated LFT's- now within normal. PEG tube placement 11/30. US liver: No ductal dilatation tube feeds with vital high-protein currently at 30 cc an hour. Goal 75 cc an hour Metoclopramide 10 mg every 6 hours IV. No Cholecystostomy tube recommended by Dr. Nguyen. Recommended advance diet as tolerated Famotidine 20 milligrams mg twice a day for GI prophylaxis /renal/FEN: Hyponatremia Hypopotassemia Monitor renal function, I/O's, electrolytes replacement per protocol. Currently on sodium chloride 1 g every 12 hours 40 mEq KCl 1 now. Recheck in a.m. Endo: Hyperglycemia SSI Q6h with Regular Insulin mild protocol for glycemic control. Previously insulin detemir 62 units twice a day. Restarted 15 units twice a day 12/01. Decreased attenuation units twice daily 12/19 due to hypoglycemia Adequate blood sugar control . Heme: Normocytic anemia Leukocytosis L popliteal fossa hematoma - stable. Monitor CBC, coags- Heparin drip/Coumadin on hold it on low-dose subcutaneous heparin currently Monitor closely for compartment syndrome ID: Severe sepsis - resolved. HAP Placed back on piperacillin/tazobactam with a stop date 12/22 Discontinued vancomycin and micafungin by ID, WBC trending down ID Amanda Haas, F/U ríos culture, C Diff- NGTD. ABX completed 12/11. (piperacillin/tazobactam and sulfamethoxazole/ trimethoprim 800/160 2 tablets 3 times a day) Sputum: Klebsiella, Stenotrophomonas and Pseudomonas 11/27 Sputum cx 11/23: Kleb, Pseudomonas, s/p (ceftriaxone and fluconazole course). ID is following-Dr. Patel s/p ceftriaxone 11/02-11/09 for Enterobacter pneumonia. Repeat sputum Klebsiella sensitive to Rocephin 10/29/16-Enterobacter in sputum, 11/06/16, 11/10 sputum- Klebsiella Urine Legionella and pneumococcal antigens negative and influenza negative C-diff PCR is negative Access RUE PICC placed 11/05 through 11/15 replaced 11/16 with left upper extremity PICC Prophylaxis GI, famotidine. DVT - IV heparin gtt, Coumadin DCd 12/10 due to left popliteal hematoma, O Heparin 5000 U q12 sq 11/09 Doppler US LE negative for DVT Palliative care is following Overall impression: very slow if any forward progress. off pathway. needs aggressive pulmonary rehab at an LTAC facility but no funding source. Continue daily SBTs and very slow weaning as tolerated. Ubaldo Story MD Dec 20, 2016 14:24
[2016-12-20] MEDS ORDERED: DIGOXIN 0.5 MG/2 ML VIAL IV PUSH ONE (14:30)
[2016-12-20] MEDS ORDERED: POTASSIUM CHLORIDE 20 MEQ PWD PACKET PO ONE (14:30)
--- NOTE | 2016-12-20 15:57 | HHI.IDPN ---
Subjective Subjective Remarks doing well afebrile denies abd vincent tolerates Tpiece today off pressors Antibiotics zosyn Allergies: Coded Allergies: No Known Allergies (Unverified , 10/25/16) Objective . Vital Signs Date Time Temp Pulse Resp B/P (MAP) Pulse Ox O2 Delivery O2 Flow Rate FiO2 12/20/16 14:00 71 12/20/16 12:00 40 12/20/16 12:00 98.5 70 23 123/63 (83) 100 12/20/16 12:00 70 12/20/16 11:24 95 T-piece 6.00 40 12/20/16 11:20 40 12/20/16 11:00 64 15 122/65 (84) 98 12/20/16 10:00 62 12/20/16 10:00 62 23 109/61 (77) 99 12/20/16 09:08 40 12/20/16 09:08 98 40 12/20/16 09:00 66 23 108/63 (78) 98 12/20/16 08:00 77 12/20/16 08:00 98.3 77 17 121/67 (85) 98 12/20/16 08:00 40 12/20/16 07:00 77 29 127/60 (82) 97 12/20/16 06:00 78 12/20/16 04:00 40 12/20/16 04:00 72 12/20/16 04:00 98.3 72 35 136/66 (89) 97 12/20/16 03:33 98 40 12/20/16 02:00 74 12/20/16 00:12 100 40 12/20/16 00:00 40 12/20/16 00:00 64 12/20/16 00:00 98.2 64 33 137/68 (91) 99 12/19/16 22:00 63 12/19/16 20:00 61 12/19/16 20:00 40 12/19/16 20:00 97.9 61 42 126/65 (85) 98 12/19/16 19:49 98 40 12/19/16 18:00 62 12/19/16 16:10 98 40 12/19/16 16:00 58 12/19/16 16:00 50 12/19/16 16:00 98.6 58 26 118/58 (78) 96 . Laboratory Tests Test 10/25/17 04:30 12/20/16 04:40 White Blood Count 16.1 TH/MM3 11.4 TH/MM3 Red Blood Count 2.99 MIL/MM3 3.00 MIL/MM3 Hemoglobin 9.3 GM/DL 9.4 GM/DL Hematocrit 27.7 % 28.1 % Mean Corpuscular Volume 92.6 FL 93.8 FL Mean Corpuscular Hemoglobin 31.2 PG 31.3 PG Mean Corpuscular Hemoglobin Concent 33.7 % 33.4 % Red Cell Distribution Width 15.7 % 15.2 % Platelet Count 375 TH/MM3 381 TH/MM3 Mean Platelet Volume 6.4 FL 6.8 FL Neutrophils (%) (Auto) 79.4 % Lymphocytes (%) (Auto) 12.5 % Monocytes (%) (Auto) 6.7 % Eosinophils (%) (Auto) 0.6 % Basophils (%) (Auto) 0.8 % Neutrophils # (Auto) 9.1 TH/MM3 Lymphocytes # (Auto) 1.4 TH/MM3 Monocytes # (Auto) 0.8 TH/MM3 Eosinophils # (Auto) 0.1 TH/MM3 Basophils # (Auto) 0.1 TH/MM3 CBC Comment AUTO DIFF Differential Total Cells Counted 100 Neutrophils % (Manual) 61 % Band Neutrophils % 7 % Lymphocytes % 16 % Monocytes % 12 % Eosinophils % 2 % Neutrophils # (Manual) 8.0 TH/MM3 Myelocytes 2 % Differential Comment FINAL DIFF MANUAL Platelet Estimate NORMAL Platelet Morphology Comment NORMAL Laboratory Tests Test 12/19/16 04:30 12/19/16 09:10 12/20/16 04:40 Blood Urea Nitrogen 17 MG/DL 13 MG/DL Creatinine 0.31 MG/DL 0.26 MG/DL Random Glucose 68 MG/DL 73 MG/DL Calcium Level 8.7 MG/DL 9.3 MG/DL Sodium Level 134 MEQ/L 136 MEQ/L Potassium Level 3.7 MEQ/L 3.3 MEQ/L Chloride Level 93 MEQ/L 95 MEQ/L Carbon Dioxide Level 32.5 MEQ/L 30.8 MEQ/L Anion Gap 9 MEQ/L 10 MEQ/L Estimat Glomerular Filtration Rate 299 ML/MIN 366 ML/MIN Total Bilirubin 0.9 MG/DL 1.0 MG/DL Direct Bilirubin 0.4 MG/DL Indirect Bilirubin 0.5 MG/DL Aspartate Amino Transf (AST/SGOT) 34 U/L 35 U/L Alanine Aminotransferase (ALT/SGPT) 60 U/L 64 U/L Alkaline Phosphatase 94 U/L 91 U/L Total Protein 5.8 GM/DL 5.9 GM/DL Albumin 2.4 GM/DL 2.5 GM/DL Amylase Level 46 U/L Lipase 255 U/L Ammonia LESS THAN 10 MCMOL/L Phosphorus Level 2.8 MG/DL Magnesium Level 2.2 MG/DL Imaging Last Impressions Chest X-Ray 12/20/16 0600 Signed Impressions: Service Date/Time: November 02:58 - CONCLUSION: 1. Cardiomegaly with stable bibasilar densities. 2. Right-sided chest tube without pneumothorax. Javier Ulloa MD Abdomen X-Ray 12/19/16 0000 Signed Impressions: Service Date/Time: Monday, December 19, 2016 07:55 - CONCLUSION: Mildly dilated loops of small and large bowel characteristic of ileus. Fito Joshua MD Abdomen/Pelvis CT 12/15/16 0000 Signed Impressions: Service Date/Time: Thursday, December 15, 2016 10:50 - CONCLUSION: 1. Distended bowel especially the small bowel and the cecum. This is nonspecific. A transition point is not seen. This could relate to ileus. Oral contrast does extend to the rectum. 2. Bibasilar areas of consolidation at the lung bases. There also is a possible small pneumothorax on the right. The patient does have a right chest tube in place. 3. G-tube. 4. Distended gallbladder. 5. Increased soft tissue density in the left lateral abdominal wall which could be from prior trauma or edema. Jayson Soto MD Lower Extremity Ultrasound 12/09/16 0000 Signed Impressions: Service Date/Time: Friday, December 09, 2016 17:13 - CONCLUSION: 1. No evidence of DVT 2. Large complex mass in the pump to fossa characteristic of a hematoma. Joni Barfield MD Cervical Spine MRI 12/03/16 0000 Signed Impressions: Service Date/Time: Saturday, December 03, 2016 13:13 - CONCLUSION: Severely limited exam. I believe there is increased signal in the cervical cord mid C3 to mid C5. Ward Kim MD FACR Brain MRI 12/03/16 0000 Signed Impressions: Service Date/Time: Saturday, December 03, 2016 13:13 - CONCLUSION: 1. There is a small area of abnormal T2 signal in the left frontal cortex this is unchanged from the previous examination dated 11/26/16. This is nonspecific in appearance on the MRI. Differential considerations would be a small area of gliosis versus an old area of contusion. Follow up examination in 6 months to document stability would be warranted. 2. No findings to indicate acute cortical infarction are identified. Román Kim MD Gastrostomy Tube Placement 11/30/16 0000 Signed Impressions: Service Date/Time: Wednesday, November 30, 2016 12:22 - CONCLUSION: Uncomplicated gastrostomy tube placement as above. Jorge Jolly MD Liver Ultrasound 11/09/16 0000 Signed Impressions: Service Date/Time: Wednesday, November 09, 2016 13:58 - CONCLUSION: Sono dense liver without duct dilatation. 4 mm common duct. Ward Kim MD FACR Chest CT 11/06/16 0000 Signed Impressions: Service Date/Time: Sunday, November 06, 2016 11:24 - CONCLUSION: 1. Dense bilateral posterior lower lobe airspace consolidation consistent with aspiration versus less likely pneumonia. 2. Linear consolidation in the right middle lobe consistent with atelectasis versus aspiration. 3. Trace left and small right pleural effusions. 4. Support lines and tubes in good position. 5. Prominent coronary artery calcifications. Nico Vaughan MD Head CT 11/05/16 0000 Signed Impressions: Service Date/Time: Saturday, November 05, 2016 21:43 - CONCLUSION: 1. No acute intracranial abnormalities. Pansinus fluid opacification. Cristofer De Santiago MD Carotid Artery Ultrasound 10/25/16 0000 Signed Impressions: Service Date/Time: September 08:27 - CONCLUSION: Mild to moderate plaque in both carotid systems with less than 40%% diameter stenosis by velocity criteria. Jhonathan Dietz MD CT Angiography 10/25/16 0000 Signed Impressions: Service Date/Time: September 06:12 - CONCLUSION: 1. Negative for pulmonary embolism. 2. There is a fairly large area of masslike consolidation in the medial right lung involving posterior segment right upper lobe and medial aspect of right lower lobe. There is associated right hilar and mediastinal adenopathy measuring up to 2.1 cm. Differential diagnosis includes pneumonia or underlying lung neoplasm. Close followup imaging recommended after treatment for pneumonia, to assess for underlying mass. Cristofer De Santiago MD Physical Exam CONSTITUTIONAL/GENERAL: This is a morbidly obese patient, TUBES/LINES/DRAINS: SKIN: No jaundice, rashes, or lesions. Skin temperature appropriate. Not diaphoretic. NECK: trach in place, site OK CARDIOVASCULAR: No murmurs, rgular rat, rhythm No JVD. Peripheral pulses symmetric. RESPIRATORY/CHEST: Symmetric, unlabored respirations. coarse BS CT R with serous drainage GASTROINTESTINAL: Abdomen is soft , not distended, not tnder , no guarding or rebound. No hepato-splenomegaly, or palpable masses. No guarding. Bowel sounds present. Dignishiled in place with light brown liquid stool GENITOURINARY: Without palpable bladder distension. Santiago catheter in place with clear yellow urine MUSCULOSKELETAL: Extremities without clubbing, cyanosis, + 2-3 generalysed edema, ecchymosis and indurated of L calf, improving NEUROLOGICAL: awake, alert, communicates and follows commands PSYCHIATRIC: calm Assessment & Plan Remarks PNA, Kleb pneumo - failrly sensitive - PSAE , Stenotrophomonas and Kleb in the sputum ? unclear is Steno malt is a coloniser vs a true pathogen, but improved after Bactrim was introdused ARDS Acute VDRF, tolerating weaning - sp trach R sided PTX sp CT Abx associated diarrhea, C.diff negative agasin 12/15 Abnormal UA, CANDIDURIA Persiastent leukocytosis and bandemia - improving New sepsis, suspect GI : acute acalculous cholecystits initialy suspected - less likley - appreciate gen surg input Pt is much more stable today , clnically improving REC's: dc zosyn f fu WBC fu clinically Mariana Patel MD Dec 20, 2016 15:57
[2016-12-20] MEDS ORDERED: POLYETHYLENE GLYCOL 17 GM PKG PO PRN (17:30)
--- NOTE | 2016-12-20 17:34 | HHI.GIFU ---
Subjective Remarks Pt resting in bed in NAD. Admits some abd pain but it is better than it was. + BM, + flatus. No n/v. Paula TF 30ml/hr. Per RN lots liquid stool, held miralax today. Objective Vitals I&O Vital Signs Date Time Temp Pulse Resp B/P (MAP) Pulse Ox O2 Delivery O2 Flow Rate FiO2 12/20/16 16:01 61 12/20/16 16:01 98.6 62 15 124/68 (86) 98 12/20/16 16:00 40 12/20/16 15:45 40 12/20/16 15:36 96 40 12/20/16 15:00 61 23 106/60 (75) 93 12/20/16 14:00 71 18 115/67 (83) 94 12/20/16 14:00 71 12/20/16 13:00 76 20 121/66 (84) 93 12/20/16 12:00 40 12/20/16 12:00 98.5 70 23 123/63 (83) 100 12/20/16 12:00 70 12/20/16 11:24 95 T-piece 6.00 40 12/20/16 11:20 40 12/20/16 11:00 64 15 122/65 (84) 98 12/20/16 10:00 62 12/20/16 10:00 62 23 109/61 (77) 99 12/20/16 09:08 40 12/20/16 09:08 98 40 12/20/16 09:00 66 23 108/63 (78) 98 12/20/16 08:00 77 12/20/16 08:00 98.3 77 17 121/67 (85) 98 12/20/16 08:00 40 12/20/16 07:00 77 29 127/60 (82) 97 12/20/16 06:00 78 12/20/16 04:00 40 12/20/16 04:00 72 12/20/16 04:00 98.3 72 35 136/66 (89) 97 12/20/16 03:33 98 40 12/20/16 02:00 74 12/20/16 00:12 100 40 12/20/16 00:00 40 12/20/16 00:00 64 12/20/16 00:00 98.2 64 33 137/68 (91) 99 12/19/16 22:00 63 12/19/16 20:00 61 12/19/16 20:00 40 12/19/16 20:00 97.9 61 42 126/65 (85) 98 12/19/16 19:49 98 40 12/19/16 18:00 62 I/O 12/19/16 12/19/16 12/19/16 12/20/16 12/20/16 12/20/16 07:00 15:00 23:00 07:00 15:00 23:00 Intake Total 552 ml 329 ml 371 ml Output Total 1000 ml 1450 ml 1720 ml Balance -448 ml -1121 ml -1349 ml Intake Oral 0 ml 0 ml IV Total 354 ml Tube Feeding 198 ml 329 ml 371 ml Output Urine Total 600 ml 1050 ml 1320 ml Stool Total 400 ml 400 ml 400 ml Chest Tube Drainage Total 0 ml Laboratory Laboratory Tests Test 12/20/16 04:40 White Blood Count 11.4 Red Blood Count 3.00 Hemoglobin 9.4 Hematocrit 28.1 Mean Corpuscular Volume 93.8 Mean Corpuscular Hemoglobin 31.3 Mean Corpuscular Hemoglobin Concent 33.4 Red Cell Distribution Width 15.2 Platelet Count 381 Mean Platelet Volume 6.8 Neutrophils (%) (Auto) 79.4 Lymphocytes (%) (Auto) 12.5 Monocytes (%) (Auto) 6.7 Eosinophils (%) (Auto) 0.6 Basophils (%) (Auto) 0.8 Neutrophils # (Auto) 9.1 Lymphocytes # (Auto) 1.4 Monocytes # (Auto) 0.8 Eosinophils # (Auto) 0.1 Basophils # (Auto) 0.1 CBC Comment AUTO DIFF Differential Total Cells Counted 100 Neutrophils % (Manual) 61 Band Neutrophils % 7 Lymphocytes % 16 Monocytes % 12 Eosinophils % 2 Neutrophils # (Manual) 8.0 Myelocytes 2 Differential Comment FINAL DIFF MANUAL Platelet Estimate NORMAL Platelet Morphology Comment NORMAL Activated Partial Thromboplast Time 25.6 Blood Urea Nitrogen 13 Creatinine 0.26 Random Glucose 73 Total Protein 5.9 Albumin 2.5 Calcium Level 9.3 Phosphorus Level 2.8 Magnesium Level 2.2 Alkaline Phosphatase 91 Aspartate Amino Transf (AST/SGOT) 35 Alanine Aminotransferase (ALT/SGPT) 64 Total Bilirubin 1.0 Sodium Level 136 Potassium Level 3.3 Chloride Level 95 Carbon Dioxide Level 30.8 Anion Gap 10 Estimat Glomerular Filtration Rate 366 Digoxin Level 0.5 Date/Time Source Procedure Growth Status 12/14/16 22:15 Blood Peripheral Aerobic Blood Culture - Final NO GROWTH IN 5 DAYS Complete 12/14/16 22:15 Blood Peripheral Anaerobic Blood Culture - Final NO GROWTH IN 5 DAYS Complete 11/08/16 14:15 Stool Stool Stool Occult Blood ([facility]) - Final HEMOCCULT NEGATIVE Complete 11/27/16 09:55 Sputum Endotracheal Gram Stain - Final Complete 11/27/16 09:55 Sputum Culture - Final Klebsiella Pneumoniae Stenotrophomonas Maltophilia Pseudomonas Aeruginosa Complete 12/14/16 18:10 Urine Catheterized Urine Urine Culture - Final NO GROWTH IN 48 HOURS. Complete Imaging Last Impressions Chest X-Ray 12/20/16 0600 Signed Impressions: Service Date/Time: November 02:58 - CONCLUSION: 1. Cardiomegaly with stable bibasilar densities. 2. Right-sided chest tube without pneumothorax. Javier Ulloa MD Abdomen X-Ray 12/19/16 0000 Signed Impressions: Service Date/Time: Monday, December 19, 2016 07:55 - CONCLUSION: Mildly dilated loops of small and large bowel characteristic of ileus. Fito Joshua MD Abdomen/Pelvis CT 12/15/16 0000 Signed Impressions: Service Date/Time: Thursday, December 15, 2016 10:50 - CONCLUSION: 1. Distended bowel especially the small bowel and the cecum. This is nonspecific. A transition point is not seen. This could relate to ileus. Oral contrast does extend to the rectum. 2. Bibasilar areas of consolidation at the lung bases. There also is a possible small pneumothorax on the right. The patient does have a right chest tube in place. 3. G-tube. 4. Distended gallbladder. 5. Increased soft tissue density in the left lateral abdominal wall which could be from prior trauma or edema. Jayson Soto MD Lower Extremity Ultrasound 12/09/16 0000 Signed Impressions: Service Date/Time: Friday, December 09, 2016 17:13 - CONCLUSION: 1. No evidence of DVT 2. Large complex mass in the pump to fossa characteristic of a hematoma. Joni Barfield MD Cervical Spine MRI 12/03/16 0000 Signed Impressions: Service Date/Time: Saturday, December 03, 2016 13:13 - CONCLUSION: Severely limited exam. I believe there is increased signal in the cervical cord mid C3 to mid C5. Ward Kim MD FACR Brain MRI 12/03/16 0000 Signed Impressions: Service Date/Time: Saturday, December 03, 2016 13:13 - CONCLUSION: 1. There is a small area of abnormal T2 signal in the left frontal cortex this is unchanged from the previous examination dated 11/26/16. This is nonspecific in appearance on the MRI. Differential considerations would be a small area of gliosis versus an old area of contusion. Follow up examination in 6 months to document stability would be warranted. 2. No findings to indicate acute cortical infarction are identified. Román Kim MD Gastrostomy Tube Placement 11/30/16 0000 Signed Impressions: Service Date/Time: Wednesday, November 30, 2016 12:22 - CONCLUSION: Uncomplicated gastrostomy tube placement as above. Jorge Jolly MD Liver Ultrasound 11/09/16 0000 Signed Impressions: Service Date/Time: Wednesday, November 09, 2016 13:58 - CONCLUSION: Sono dense liver without duct dilatation. 4 mm common duct. Ward Kim MD FACR Chest CT 11/06/16 0000 Signed Impressions: Service Date/Time: Sunday, November 06, 2016 11:24 - CONCLUSION: 1. Dense bilateral posterior lower lobe airspace consolidation consistent with aspiration versus less likely pneumonia. 2. Linear consolidation in the right middle lobe consistent with atelectasis versus aspiration. 3. Trace left and small right pleural effusions. 4. Support lines and tubes in good position. 5. Prominent coronary artery calcifications. Nico Vaughan MD Head CT 11/05/16 0000 Signed Impressions: Service Date/Time: Saturday, November 05, 2016 21:43 - CONCLUSION: 1. No acute intracranial abnormalities. Pansinus fluid opacification. Cristofer De Santiago MD Carotid Artery Ultrasound 10/25/16 0000 Signed Impressions: Service Date/Time: September 08:27 - CONCLUSION: Mild to moderate plaque in both carotid systems with less than 40%% diameter stenosis by velocity criteria. Jhonathan Dietz MD CT Angiography 10/25/16 0000 Signed Impressions: Service Date/Time: September 06:12 - CONCLUSION: 1. Negative for pulmonary embolism. 2. There is a fairly large area of masslike consolidation in the medial right lung involving posterior segment right upper lobe and medial aspect of right lower lobe. There is associated right hilar and mediastinal adenopathy measuring up to 2.1 cm. Differential diagnosis includes pneumonia or underlying lung neoplasm. Close followup imaging recommended after treatment for pneumonia, to assess for underlying mass. Cristofer De Santiago MD Physical Exam HEENT: Normocephalic; atraumatic; no jaundice. CHEST: Tracheostomy to CPAP. Course breath sounds. CARDIAC: RRR ABDOMEN: Soft, obese, mildly distended, BS +. Flexiseal EXTREMITIES: Generalized edema. PRIVATE INQUIRY AGENT: Lethargic Assessment and Plan Plan ASSESSMENT - Severe Ileus. KUB (12/14/16)---> Diffuse air distention of the colon and small bowel loops characteristic of a hypodynamic ileus. He has associated nausea, abdominal pain, bloating. He was started on Reglan and received GoLYTELY overnight on 12/14. 12/15--began vomiting and his G-tube was placed to suction. The nurse reports that she immediately got out 5 L of brown material his abdomen is soft and mildly distended since his G-tube was placed to suction. CT scan abdomen and pelvis (12/15/16)-- distended bowel especially the small bowel and the cecum (4.5 cm). This is nonspecific. A transition point is not seen. This could relate to ileus. Oral contrast does extend to the rectum. By basilar areas of consolidation at the lung bases. There also is a possibility small pneumothorax on the right. The patient does have a right chest tube in place. G-tube. Distended gallbladder. Increased soft tissue density in the left lateral abdominal wall which could be from prior trauma or edema. KUB (12/17/16)----> Gaseous distention of multiple bowel loops. Percutaneous gastrostomy tube. Clinically, less distended. + BM. Reglan frequency increased by GS, Add Miralax. Will start Vital High protein at 20cc/hr. Once tolerating, will increase to GR 75cc/hr. - Dysphagia. S/P EGD (11/29/16)---> 1. Normal stomach mild esophagitis no transillumination or indentation seen-peg could not be placed endoscopically 2. Retroflexed views revealed a hiatal hernia. S/P G tube placement by IR (11/30/16). - Elevated LFTs, improved. T. Bili 1.0, AST 21, ALT 70, Alk Phosph 114. - Distended GB on CT. S/P GS evaluation, does not feel there is a need for cholecystomy tube, recommends starting TF when able. - Respiratory failure/ARDS/COPD/PNA. S/P tracheostomy, on CPAP. Prednisone, Nebs. - Sepsis/Leukocytosis. Sputum with Klebsiella pneumoniae, stenotrophomonas maltiophilia, PSAE. BCx (12/07) negative. WBC 13.0 , repeat cultures no growth in 2 day (Blood, urine). - Atrial fibrillation/flutter. Currently in Aflutter, Rate 70. Amiodarone. BB. Heparin, digoxin - HTN, per attending. 12/20/16 - pt with increased liquid stool. admits flatus. no n/v. some abd pain, better than it was. BS +. tolerating TF 30ml/hr, will increase to 40ml/ hr d/c miralax. d/w RN. PLAN - increase TF to 40 ml/hr - Cont. Reglan - d/c scheduled miralax, can be PRN - supportive care This pt seen by myself and Dr Fernandez and this note is written on his behalf Kaitlynn Ruiz Dec 20, 2016 17:34
[2016-12-20] MEDS: ESCITALOPRAM OXALATE 10 MG TAB PO SCH (20:52)
[2016-12-21] VITALS (23 sets, daily range): BP systolic 103–127; BP diastolic 58–67; PULSE 60–77; RESP 16–31; TEMP 97.9–98.6; O2SAT 93–100
[2016-12-21] MEDS: RESP: ALBUTEROL 2.5 MG/IPRATROPIUM 0.5 MG NEB (SCH) NEB ×7 (00:20→23:48)
[2016-12-21] MEDS: INSULIN NovoLIN REGULAR SUPPLEMENTAL SCALE SQ SCH ×4 (02:00→20:00)
[2016-12-21] MEDS: CHLORHEXIDINE GLUCONATE 2 % 1 PACK (2 CLOTHS) TOP SCH (04:00)
[2016-12-21 05:41] LABS: BICARBONATE 29.8 MEQ/L (21.0-32.0); MAGNESIUM 1.9 MG/DL (1.5-2.5)
[2016-12-21 05:46] LABS: DIGOXIN 0.8 NG/ML (0.8-2.0)
[2016-12-21] MEDS: METOPROLOL TARTRATE 50 MG TAB PO SCH ×5 (06:43→23:53)
[2016-12-21] MEDS: DILTIAZEM HCL 90 MG TAB PO SCH ×5 (06:43→23:53)
[2016-12-21] MEDS: METOCLOPRAMIDE HCL 10 MG/2 ML VIAL IV SCH ×5 (06:43→23:53)
[2016-12-21] MEDS: RESP: BUDESONIDE 0.5 MG/2 ML NEB NEB SCH ×2 (07:32→19:51)
[2016-12-21] MEDS: CHLORHEXIDINE 0.12% (ORAL KIT) 15 ML CUP MT SCH ×2 (08:00→21:54)
[2016-12-21] MEDS: AMIODARONE 200 MG TAB OG-TUBE SCH ×2 (08:44→21:55)
[2016-12-21] MEDS: HEPARIN SODIUM - SQ 10,000 UNITS/ML VIAL SQ SCH ×2 (08:44→21:55)
[2016-12-21] MEDS: FAMOTIDINE 20 MG TAB NG SCH ×2 (08:45→21:55)
[2016-12-21] MEDS: SODIUM CHLORIDE 1 GRAM TAB PO SCH ×2 (08:45→21:55)
[2016-12-21] MEDS: LISINOPRIL 10 MG TAB PO SCH (08:45)
[2016-12-21] MEDS: DIGOXIN 0.125 MG TAB PO SCH (08:45)
[2016-12-21 08:59] LABS: HEMATOCRIT 28.2 % (39.0-51.0); MEAN CORPUSCULAR HEMOGLOBIN 30.4 PG (27.0-34.0); MEAN CORPUSCULAR HGB CONC 32.7 % (32.0-36.0); PLATELET COUNT 402 TH/MM3 (150-450); RED BLOOD COUNT 3.03 MIL/MM3 (4.50-5.90); RED CELL DISTRIBUTION WIDTH 15.5 % (11.6-17.2); REVIEW FLAG FINAL; WHITE BLOOD COUNT 11.4 TH/MM3 (4.0-11.0)
[2016-12-21] MEDS: predniSONE 20 MG TAB PO SCH (09:00)
[2016-12-21] MEDS: SODIUM CHLORIDE 0.9% FLUSH 10 ML FLUSH IV FLUSH SCH (09:00)
[2016-12-21] MEDS: INSULIN DETEMIR 100 UNITS/ML VIAL SQ SCH ×2 (09:00→21:00)
[2016-12-21] MEDS: SODIUM CHLORIDE 0.9% FLUSH 10 ML FLUSH SCH ×2 (09:00→21:55)
[2016-12-21] MEDS: ARTIFICIAL TEARS OPTH OINT 3.5 APPLIC/3.5 GM TUBO EACH EYE SCH ×2 (09:00→21:55)
[2016-12-21] MEDS: SODIUM CHLORIDE 0.9% FLUSH 10 ML FLUSH IVF SCH (09:00)
[2016-12-21 09:09] LABS: APTT (PATIENT) 24.8 SEC (24.3-30.1)
[2016-12-21] MEDS: SODIUM CHLORIDE 0.9% FLUSH 10 ML FLUSH IVF PRN (09:17)
--- NOTE | 2016-12-21 18:57 | RADRPT ---
EXAM DATE/TIME: 12/21/2016 17:46 [facility] COMPARISON: No previous studies available for comparison. INDICATIONS : Water seal chest tube. MEDICAL HISTORY : Hypercholesterolemia. Hypertension Chronic obstructive pulmonary disease. SURGICAL HISTORY : None. ENCOUNTER: Subsequent ACUITY: 2 weeks PAIN SCORE: Non-responsive. LOCATION: Bilateral chest FINDINGS: There is a tracheostomy tube in good position. Left central line in superior vena cava. Right chest t ube present without pneumothorax. Basal airspace disease. CONCLUSION: 1. Stable support apparatus. Stable basilar airspace disease from December 20. Cristofer De Santiago MD on December 21, 2016 at 18:50 Board Certified Radiologist. This report was verified electronically.
[2016-12-21] MEDS: ESCITALOPRAM OXALATE 10 MG TAB PO SCH (21:55)
[2016-12-22] VITALS (19 sets, daily range): BP systolic 102–130; BP diastolic 56–70; PULSE 58–80; RESP 15–33; TEMP 98–99.2; O2SAT 95–100
[2016-12-22] MEDS: INSULIN NovoLIN REGULAR SUPPLEMENTAL SCALE SQ SCH ×4 (01:32→20:00)
[2016-12-22] MEDS: RESP: ALBUTEROL 2.5 MG/IPRATROPIUM 0.5 MG NEB (SCH) NEB ×6 (03:37→23:57)
[2016-12-22] MEDS: CHLORHEXIDINE GLUCONATE 2 % 1 PACK (2 CLOTHS) TOP SCH (04:00)
[2016-12-22] MEDS: METOCLOPRAMIDE HCL 10 MG/2 ML VIAL IV SCH ×4 (05:16→22:21)
[2016-12-22] MEDS: DILTIAZEM HCL 90 MG TAB PO SCH ×4 (05:16→22:21)
[2016-12-22] MEDS: METOPROLOL TARTRATE 50 MG TAB PO SCH ×4 (05:16→22:22)
[2016-12-22 05:50] LABS: APTT (PATIENT) 24.5 SEC (24.3-30.1); HEMATOCRIT 28.8 % (39.0-51.0); MEAN CORPUSCULAR HEMOGLOBIN 30.5 PG (27.0-34.0); MEAN CORPUSCULAR HGB CONC 32.7 % (32.0-36.0); PLATELET COUNT 429 TH/MM3 (150-450); RED BLOOD COUNT 3.09 MIL/MM3 (4.50-5.90); RED CELL DISTRIBUTION WIDTH 15.3 % (11.6-17.2); REVIEW FLAG FINAL; WHITE BLOOD COUNT 12.2 TH/MM3 (4.0-11.0)
[2016-12-22 06:01] LABS: BICARBONATE 30.9 MEQ/L (21.0-32.0); POTASSIUM 3.3 MEQ/L (3.5-5.1)
[2016-12-22] MEDS: POTASSIUM CHLOR 40 MEQ PREMIX 100 ML IV PRN (06:32)
[2016-12-22] MEDS: RESP: BUDESONIDE 0.5 MG/2 ML NEB NEB SCH ×2 (07:24→19:29)
[2016-12-22] MEDS: LISINOPRIL 10 MG TAB PO SCH (09:01)
[2016-12-22] MEDS: SODIUM CHLORIDE 1 GRAM TAB PO SCH (09:01)
[2016-12-22] MEDS: FAMOTIDINE 20 MG TAB NG SCH ×2 (09:01→22:20)
[2016-12-22] MEDS: DIGOXIN 0.125 MG TAB PO SCH (09:01)
[2016-12-22] MEDS: predniSONE 20 MG TAB PO SCH (09:01)
[2016-12-22] MEDS: AMIODARONE 200 MG TAB OG-TUBE SCH ×2 (09:01→22:20)
[2016-12-22] MEDS: SODIUM CHLORIDE 0.9% FLUSH 10 ML FLUSH IVF SCH (09:02)
[2016-12-22] MEDS: INSULIN DETEMIR 100 UNITS/ML VIAL SQ SCH ×2 (09:02→21:00)
[2016-12-22] MEDS: ARTIFICIAL TEARS OPTH OINT 3.5 APPLIC/3.5 GM TUBO EACH EYE SCH ×2 (09:02→22:20)
[2016-12-22] MEDS: SODIUM CHLORIDE 0.9% FLUSH 10 ML FLUSH SCH ×2 (09:02→22:20)
[2016-12-22] MEDS: HEPARIN SODIUM - SQ 10,000 UNITS/ML VIAL SQ SCH ×2 (09:02→22:21)
[2016-12-22] MEDS: SODIUM CHLORIDE 0.9% FLUSH 10 ML FLUSH IV FLUSH SCH (09:02)
[2016-12-22] MEDS: CHLORHEXIDINE 0.12% (ORAL KIT) 15 ML CUP MT SCH ×2 (09:03→20:00)
[2016-12-22] MEDS: REMOVE OLD FENTANYL PATCH T-DERMAL SCH (13:35)
[2016-12-22] MEDS ORDERED: PROPOFOL 500 MG/50 ML INJ 50 ML ONE (14:20)
[2016-12-22] MEDS ORDERED: NOREPINEPHRINE-DEXTROSE DRIP 250 ML IV ONE (14:21)
[2016-12-22] MEDS: ESCITALOPRAM OXALATE 10 MG TAB PO SCH (22:20)
[2016-12-23] VITALS (17 sets, daily range): BP systolic 107–139; BP diastolic 60–85; PULSE 63–75; RESP 20–40; TEMP 98.4–98.9; O2SAT 97–99
[2016-12-23] MEDS: SODIUM CHLORIDE 1 GRAM TAB PO SCH ×3 (01:50→21:23)
[2016-12-23] MEDS: INSULIN NovoLIN REGULAR SUPPLEMENTAL SCALE SQ SCH ×4 (01:51→20:00)
[2016-12-23] MEDS: CHLORHEXIDINE GLUCONATE 2 % 1 PACK (2 CLOTHS) TOP SCH (04:00)
[2016-12-23] MEDS: RESP: ALBUTEROL 2.5 MG/IPRATROPIUM 0.5 MG NEB (SCH) NEB ×2 (04:00→07:24)
--- NOTE | 2016-12-23 04:26 | RADRPT ---
EXAM DATE/TIME: 12/23/2016 02:25 [facility] COMPARISON: CHEST SINGLE AP, December 21, 2016, 17:46. INDICATIONS : Evaluate for pnuemonia- Right side chest tube MEDICAL HISTORY : Hypercholesterolemia. Hypertension Chronic obstructive pulmonary disease. SURGICAL HISTORY : None. ENCOUNTER: Subsequent ACUITY: 1 month PAIN SCORE: Non-responsive. LOCATION: Bilateral chest FINDINGS: Moderate right and mild left basilar consolidation present. Right side is modestly worse in the inter im and there is probably a small right pleural effusion developing. Right chest tube remains in place. No pneumothorax seen. Tracheostomy tube again noted. There is a left arm PICC again seen with tip in the superior vena cava . CONCLUSION: Worsening consolidation and pleural effusion at the right base. Right chest she remains in place. No pneumothorax seen. Jayson Taylor MD on December 23, 2016 at 4:23 Board Certified Radiologist. This report was verified electronically.
[2016-12-23] MEDS: DILTIAZEM HCL 90 MG TAB PO SCH ×3 (05:26→17:46)
[2016-12-23] MEDS: METOPROLOL TARTRATE 50 MG TAB PO SCH ×3 (05:26→17:46)
[2016-12-23] MEDS: METOCLOPRAMIDE HCL 10 MG/2 ML VIAL IV SCH ×3 (05:26→17:46)
[2016-12-23 06:04] LABS: HEMATOCRIT 27.2 % (39.0-51.0); MEAN CELL VOLUME 93.4 FL (80.0-100.0); MEAN CORPUSCULAR HEMOGLOBIN 31.3 PG (27.0-34.0); MEAN CORPUSCULAR HGB CONC 33.5 % (32.0-36.0); PLATELET COUNT 418 TH/MM3 (150-450); RED BLOOD COUNT 2.91 MIL/MM3 (4.50-5.90); RED CELL DISTRIBUTION WIDTH 15.6 % (11.6-17.2); REVIEW FLAG FINAL; WHITE BLOOD COUNT 13.1 TH/MM3 (4.0-11.0)
[2016-12-23 06:29] LABS: POTASSIUM 3.6 MEQ/L (3.5-5.1)
[2016-12-23] MEDS: RESP: BUDESONIDE 0.5 MG/2 ML NEB NEB SCH ×2 (07:24→19:49)
[2016-12-23 07:30] LABS: APTT (PATIENT) 25.8 SEC (24.3-30.1)
[2016-12-23] MEDS: CHLORHEXIDINE 0.12% (ORAL KIT) 15 ML CUP MT SCH ×2 (07:59→21:23)
[2016-12-23] MEDS: ARTIFICIAL TEARS OPTH OINT 3.5 APPLIC/3.5 GM TUBO EACH EYE SCH ×2 (08:00→21:23)
[2016-12-23] MEDS: HEPARIN SODIUM - SQ 10,000 UNITS/ML VIAL SQ SCH ×2 (08:02→21:23)
[2016-12-23] MEDS: SODIUM CHLORIDE 0.9% FLUSH 10 ML FLUSH IV FLUSH SCH (08:04)
[2016-12-23] MEDS: AMIODARONE 200 MG TAB OG-TUBE SCH ×2 (08:05→21:23)
[2016-12-23] MEDS: DIGOXIN 0.125 MG TAB PO SCH (08:05)
[2016-12-23] MEDS: FAMOTIDINE 20 MG TAB NG SCH ×2 (08:05→21:23)
[2016-12-23] MEDS: predniSONE 20 MG TAB PO SCH (08:05)
[2016-12-23] MEDS: LISINOPRIL 10 MG TAB PO SCH (08:07)
[2016-12-23] MEDS: SODIUM CHLORIDE 0.9% FLUSH 10 ML FLUSH SCH ×2 (09:00→21:24)
[2016-12-23] MEDS: SODIUM CHLORIDE 0.9% FLUSH 10 ML FLUSH IVF SCH (09:00)
[2016-12-23] MEDS: INSULIN DETEMIR 100 UNITS/ML VIAL SQ SCH ×2 (09:00→21:00)
--- NOTE | 2016-12-23 17:19 | HHI.CCPN ---
Subjective Remarks/Hospital Course 56-year-old very pleasant gentleman with past medical history of COPD, and hypertension presents complaining of shortness of breath and nausea, generalized fatigue and chills for 2 days. He thinks it has been from being out in the heat. Denies any fever, chest pain, vomiting, abdominal pain, focal weakness or numbness. In the emergency department his saturation was in mid 80s on arrival with auditory wheezing and tachypnea. He was placed on 4 liters of NC and saturating in the low 90. He does not use oxygen at home. He also mentioned 2 days ago, he came home and was sitting in a chair and was taking his shoes off when he passed out. States he woke up and was still on the chair. This has never happen before. 10/25: Patient intubated secondary to increasing oxygen requirements, altered mental status. Discussed with son. Somewhat hypertensive post intubation. 10/26: Placed on rotaprone bed last evening. Flolan initiated. Saturations improved. Afebrile. Remains on Nimbex drip. 10/27: T max 99.7. Tolerated on not prone position 2 hours yesterday. Tolerating trickle feeds. FiO2 down to 55% 10/28: Tmax 99.9. When unprone for chest x-ray this a.m. desaturated. Currently on 90% FiO2. Actually hypertensive. No bowel movements. Remains paralyzed 10/29: Remains intubated sedated on continuous Prone therapy Except for chest x- ray. Fever 100.8. Panculture requested. Zyvox added. Continue IV sedation with propofol and fentanyl and Versed, neuromuscular paralysis with Nimbex 10/30: Prone cycle changed to 8 hr prone, 1 hr supine from 10/29. Due to hypoxia will continue with same cycle today. Chest x-ray remains unchanged. Patient remains severely hypoxemic FiO2 at 75% PEEP at 16. WBC count worsened to 18. Remains neuromuscularly paralyzed. 10/31: Patient remains critically ill but stable. Oxygen saturation 95% on 55 of FiO2 and PEEP of 16. Reduce PEEP to 14, FiO2 to 50% and start weaning Flolan. Increase supine time to 4 hours, reduce Prone time to 6 hours 11/01: Patient remains intubated sedated critically ill on neuromuscular paralysis. FiO2 reduced to 50, I will attempt PEEP wean gradually to 12 today. Prone/supine cycles will be changed to 6 hours each 11/02: FiO2 remains at 50%, PEEP reduced from 14 to 12 today, TV increased to 600 and RR to 20, in anticipation of discontinuing prone therapy, which will be DCd today. Off Flolan for 2 days 11/03: off pronation. fio2 up to 65% , peep 12. agitation causing desaturation. minimal improvements. 11/04: good diuresis yesterday, but despite that, fio2 persists at 65% and spo2 decreasing to 91% today. no real improvements and some worsening of pulmonary function despite ongoing aggressive therapies. still not safe for SBT given hypoxia. also severely hypertensive this morning. 11/05: continues to diurese well and Cr still at baseline. fio2 at 90% however, and no clinical improvements in mental status or hypoxia. still unsafe for SBT given hypoxemia. off pathway. hypertension under much better control. poor neuro status is concerning. 11/06: Remains severely hypoxemic. FiO2 was 100% PEEP 14. I reduce FiO2 to 90% after increasing PEEP to 16. Developed a flutter with RVR overnight, currently on Cardizem drip. Unable to do SBT due to very high settings 11/07: Remains hypoxemic and but able to wean FiO2 down to 80% with PEEP of 16. Remains unresponsive on sedation. Unable to trach due to his high vent settings and high FiO2. Remains on Cardizem and 15 mg per hour, with rate controlled a flutter. We'll start by mouth Cardizem in an attempt to wean IV Cardizem 11/08: Remains critically ill hypoxic but FiO2 now weaned to 60%, PEEP remains at 16. Very heavily sedated no withdrawal to pain. Will hold all continuos sedation. Sputum culture with Klebsiella sensitive to Rocephin. A flutter persistent, will start IV heparin 11/09 Patient is sedated with Diprivan and intubated, On Cardizem drip 15mg/hr for Aflutter. Heparin drip stated yesterday. 11/10 Patient remains sedated and intubated. On Heparin drip. Persistent fever with Tmax 102.5. ETT was replaced yesterday. 11/11 Patient was placed on Cardizem and amio drips overnight for Afib with RVR. Sedated with Diprivan and intubated. On Heparin drip. T;99.3 this morning. 11/12 Patient remains intubated and sedated with Diprivan. On Cardizem drip 15mg/ hr. Afebrile, Tmax 100.6 11/13 Patient is sedate with Diprivan and intubated. In Afib with RVR now on Amio drip. Tmax 100,4 11/14 Remains intubated sedated with propofol and fentanyl. Afib rate controlled , remains on amiodarone and Cardizem gtt. Fio2 remains high at 70%, PEEP 12. CXR persistent bibasilar infiltrates/effusion 11/15: Currently sedated with propofol and fentanyl drips. Currently in A. fib/ flutter on amiodarone drip and Cardizem drip. PEEP increased to 14. FiO2 65. 11/16: Tmax 100.1. Patient more alert and tachycardic this AM. Adding midazolam gtt for sedation and currently tolerating tube feeding. Positive BM. PEEP to 12. FiO2 75% 11/17: Afebrile. FiO2 down to 60%. PEEP set 12. Multiple tracheostomy hopefully on Saturday. Heart rate better control. 11/18: Afebrile. Discontinuing amiodarone drip today and switching to oral. FiO2 between 60 and 70%. Restarting epoprostenol in attempt to get FiO2 down to 50% for tracheostomy tomorrow 11/19 No events overnight. Sedated with Diprivan, Fentanyl and versed. Still requiring high O2 - on PRVC with PEEP;12 and FIO2 70%. Afebrile. 11/20 Patient remains sedated with Diprivan, versed, Fentanyl and intubated. On PRVC with PEEP: 12, FIO2 50% , sats 88-90%. On Heparin drip. 11/21: Tmax 99.4. Tolerating tube feeds. Remains on heparin drip. FiO2 down to 55%. PEEP of 10. Eyes open blinks spontaneously. Does squeeze and weakly on left side with encouragement 11/22: Intubated heavily sedated. FiO2 50%, remains on Flolan. PEEP 10. Bumex 1 mg 1 and Diamox 500 mg 1 IV. She will negative balance. Heparinized tube feeds on hold for tracheostomy today at 12. Remains in atrial flutter 11/23 Patient remains sedated with Diprivan, Fentanyl, Versed and intubated. On Heparin drip. For CT guided thoracentesis today. On APRV 11/24 Patient remains sedated and intubated. 20Fr CT placed yesterday for right sided PTX. Spiked fever with T 101.6. Remains on Heparin drip. 11/25 Patient remains intubated with Diprivan, fentanyl and intubated. On PRVC with PEEP: 10, FIO2 50%. Afebrile. 11/26 Patient is sedated with Diprivan, Fentanyl and intubated. Afebrile. On Heparin drip. On PRVC with PEEP: 10, FIO2 60% 11/27 Patient is scheduled for trach in OR today. Sedated and intubated. Heparin drip is off for trach. 11/28 Patient s/p trach yesterday. Sedated with Diprivan and Fentanyl. Afebrile. On PRVC with PEEP; 10 and FIO2 50% 11/29 No events overnight. Sedated and on ventilator via trach. For PEG tube placement today. Heparin drip on hold. 11/30: Currently afebrile. MAXIMUM TEMPERATURE 100. Positive BM via fecal containing device. Tube feeds on hold secondary to plan PEG tube placement today. Heparin drip on hold as well. 12/01: Status post PEG tube placement yesterday per IR. Heparin drip and tube feeds restarted today. Restarting insulin detemir. Awake and alert and weakly follows commands on sedation 12/02: Tmax 99.3. Tube feeds restarted and tolerating. Awake and alert and weakly follows commands. Plan for MRI brain/C-spine a.m. 12/03. 12/03: Patient is awake. Tolerating PRVC, very weakly wiggling cedric toes. MRI today 12/04/16: Tolerated CPAP with high settings yesterday for several hours 15 over 5. Becomes tachypneic and pressure support wean. MRI of the C-spine shows increased signal, no cord compression. Discussed with Dr. Riggins. He is requesting flexion extension films of C spine. 12/05/16: Desaturated on CPAP today. Now on full vent support with 50% FiO2. Continues to have functional quadriparesis. Dr Riggins reviewed MRI spine- he is not sure about increased signal in cord, but there could be cervical hyperextension injury, from intubation. 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 Cannot do cspine extension/flexion films. Repeat MRI c- spine in a few weeks 12/06/16: Patient remains on vent, placed on CPAP 11/29 now, on 50% FiO2. No improvement in neuro exam patient is awake. Able to minimally shrug shoulders. Continues to behave like functional quadriplegia 12/07/16: Tolerated CPAP approximately 6 hours yesterday but did not tolerate TPs. Having anxiety and some frustration due to neuromuscular weakness. I will add Lexapro. Give Bumex 1 mg x1, CXR shows pleural effusions. 12/08: On 11/29 PS since AM. CBC chest x-ray stable. Lexapro added yesterday for depression. Urine output 3.5 L in 24 hours 12/09: Tolerated CPAP well yesterday tolerated TPs for 2 hours but failed to CPAP today due to hypoxia and tachycardia. Currently on PRVC received metoprolol and fentanyl push with improved heart rate 12/10: Patient is tolerating CPAP today. Left popliteal fossa hematoma, large on left lower extremity ultrasound. Heparin and Coumadin placed on hold will get orthopedic consult 12/11: Slightly improved power of LE, unchanged on upper. L calf remains tense, but pulses are palpable. Holding anticoagulation 12/12: Tolerating CPAP 09/07. Slight improvement in muscle strength. Heparin remains on hold 12/13: Heparin remains on hold. No increase in hematoma clinically. Tolerating CPAP. 12/14: Patient complains of not feeling well today. Wbc count increased to 21, 000. KUB shows ileus. Hold tube feeds, Reglan 10 mg IV every 8 hours, send panculture 12/15: Large amount of output from the PEG tube and intermittent wall suction. Stat CT of the abdomen pelvis did not show any perforation or evidence of colitis. Shows ileus. Keep nothing by mouth IV. GI is following. CT chest shows tiny anterior pneumothorax. More Lethargic today, white count was 21,000 yesterday. Hypotensive systolic blood pressure in 70s. Probable severe sepsis/ septic shock. Start Zosyn and Levaquin and single dose of vancomycin. Check C Diff 12/16: General surgery does not recommend gallbladder drainage at this time. WBC count decreasing on Zosyn vancomycin and micafungin. 17.6 today. F/U KUB in am. GI ID following 12/17: no improvements or changes. still on full vent support. failing SBTs for tachypnea. 12/18: still failing SBTs. still on full vent support. no changes. needs placement. 12/19: Afebrile. Tolerating tube feeds at 20 cc an hour. 4 cc stool. A.m. laboratories pending. 12/20: Afebrile. Awake and alert and interactive. Tolerating tube feeds at 30 cc an hour. Positive BM. 12/21: no changes. slow vent weaning persists. 12/22: no changes. awake, on PSV. afebrile. wbc stable. SUBJECTIVE: 12/23: no improvements. still on PSV, slow wean. plan to remove chest tube today. Objective Vital Signs Date Time Temp Pulse Resp B/P (MAP) Pulse Ox O2 Delivery O2 Flow Rate FiO2 12/23/16 16:00 40 12/23/16 16:00 69 12/23/16 15:55 99 12/23/16 12:00 98.6 21 128/65 (86) 12/22/16 19:29 Ventilator 12/21/16 15:47 6.00 Intake and Output 12/23/16 12/23/16 12/24/16 08:00 16:00 00:00 Intake Total 446 ml Output Total 700 ml Balance -254 ml Result Diagram: 12/23/16 0520 12/23/16 0520 Imaging Last Impressions Chest X-Ray 12/20/16 0600 Signed Impressions: Service Date/Time: November 02:58 - CONCLUSION: 1. Cardiomegaly with stable bibasilar densities. 2. Right-sided chest tube without pneumothorax. Javier Ulloa MD Abdomen X-Ray 12/19/16 0000 Signed Impressions: Service Date/Time: Monday, December 19, 2016 07:55 - CONCLUSION: Mildly dilated loops of small and large bowel characteristic of ileus. Fito Joshua MD Abdomen/Pelvis CT 12/15/16 0000 Signed Impressions: Service Date/Time: Thursday, December 15, 2016 10:50 - CONCLUSION: 1. Distended bowel especially the small bowel and the cecum. This is nonspecific. A transition point is not seen. This could relate to ileus. Oral contrast does extend to the rectum. 2. Bibasilar areas of consolidation at the lung bases. There also is a possible small pneumothorax on the right. The patient does have a right chest tube in place. 3. G-tube. 4. Distended gallbladder. 5. Increased soft tissue density in the left lateral abdominal wall which could be from prior trauma or edema. Jayson Soto MD Lower Extremity Ultrasound 12/09/16 0000 Signed Impressions: Service Date/Time: Friday, December 09, 2016 17:13 - CONCLUSION: 1. No evidence of DVT 2. Large complex mass in the pump to fossa characteristic of a hematoma. Joni Barfield MD Cervical Spine MRI 12/03/16 0000 Signed Impressions: Service Date/Time: Saturday, December 03, 2016 13:13 - CONCLUSION: Severely limited exam. I believe there is increased signal in the cervical cord mid C3 to mid C5. Ward Kim MD FACR Brain MRI 12/03/16 0000 Signed Impressions: Service Date/Time: Saturday, December 03, 2016 13:13 - CONCLUSION: 1. There is a small area of abnormal T2 signal in the left frontal cortex this is unchanged from the previous examination dated 11/26/16. This is nonspecific in appearance on the MRI. Differential considerations would be a small area of gliosis versus an old area of contusion. Follow up examination in 6 months to document stability would be warranted. 2. No findings to indicate acute cortical infarction are identified. Román Kim MD Gastrostomy Tube Placement 11/30/16 0000 Signed Impressions: Service Date/Time: Wednesday, November 30, 2016 12:22 - CONCLUSION: Uncomplicated gastrostomy tube placement as above. Jorge Jolly MD Liver Ultrasound 11/09/16 0000 Signed Impressions: Service Date/Time: Wednesday, November 09, 2016 13:58 - CONCLUSION: Sono dense liver without duct dilatation. 4 mm common duct. Ward Kim MD FACR Chest CT 11/06/16 0000 Signed Impressions: Service Date/Time: Sunday, November 06, 2016 11:24 - CONCLUSION: 1. Dense bilateral posterior lower lobe airspace consolidation consistent with aspiration versus less likely pneumonia. 2. Linear consolidation in the right middle lobe consistent with atelectasis versus aspiration. 3. Trace left and small right pleural effusions. 4. Support lines and tubes in good position. 5. Prominent coronary artery calcifications. Nico Vaughan MD Head CT 11/05/16 0000 Signed Impressions: Service Date/Time: Saturday, November 05, 2016 21:43 - CONCLUSION: 1. No acute intracranial abnormalities. Pansinus fluid opacification. Cristofer De Santiago MD Carotid Artery Ultrasound 10/25/16 0000 Signed Impressions: Service Date/Time: September 08:27 - CONCLUSION: Mild to moderate plaque in both carotid systems with less than 40%% diameter stenosis by velocity criteria. Jhonathan Dietz MD CT Angiography 10/25/16 0000 Signed Impressions: Service Date/Time: September 06:12 - CONCLUSION: 1. Negative for pulmonary embolism. 2. There is a fairly large area of masslike consolidation in the medial right lung involving posterior segment right upper lobe and medial aspect of right lower lobe. There is associated right hilar and mediastinal adenopathy measuring up to 2.1 cm. Differential diagnosis includes pneumonia or underlying lung neoplasm. Close followup imaging recommended after treatment for pneumonia, to assess for underlying mass. Cristofer De Santiago MD Objective Remarks GENERAL: 56-year-old male, critically ill currently on PSV via tracheostomy in no acute distress SKIN: Warm and dry. Positive intertrigo HEAD: Atraumatic. Normocephalic. EYES: Pupils equal and round about 3 mm bilaterally and reactive. ENT: No nasal bleeding or discharge. NECK: Trachea midline. No JVD. Tracheostomy site has some yellow secretions surrounding CARDIOVASCULAR: normal rate, regular rhythm. RESPIRATORY: equal chest rise. right chest tube persists. GASTROINTESTINAL: Abdomen soft, obese, distended. PEG tube site is clean dry and intact MUSCULOSKELETAL: Extremities with trace lower extremity. No obvious deformities. NEUROLOGICAL: Eyes are open. Moves fingers and toes. Shrugs shoulders. Squeezes hands. Nods head appropriately to questions. Sensation appears intact A/P Assessment and Plan Neuro/Psych: Metabolic encephalopathy CIM/SHEFALI s/p Neuromuscular paralysis for Prone therapy Syncope Depression Encephalopathy most likely secondary to sepsis MRI C-spine showing increased signals C3-C5 region. Dr Riggins reviewed MRI spine- not sure about increased signal in cord, could be cervical hyperextension injury, from intubation according to him. Unable to do flexion- extension films of the C-spine (trached patient). Repeat MRI c-spine probably next week. 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 Holding oxycodone 5 mg every 6 per tube. prn hydromorphone, fentanyl 50 g every hour for breakthrough. Haloperidol 5mg iv q4h prn for agitation. Escitalopram 10 mg qhs or depression from 12/07/16. MRI brain 11/26: Small focal signal abnormality in the superior medial left frontal lobe. Could be sequela from prior insult such as a contusion or small infarct. No acute infarct MRI brain 12/[address] on admission revealed no acute intracranial findings, CT brain 11/05- no acute findings. opacification of sinuses. EEG 11/20: No seizure activity. EEG 11/09: severe encephalopathy PT/OT for range of motion, up to stretcher chair as tolerated CV: Hypotension-resolved Atrial fib/ flutter with RVR Hypertension, now intermittently hypotensive On Amiodarone 200mg Q12, Digoxin 0.125 mg daily (Dig. level 0.5 on 12/01). PO Diltiazem 90 mg PO q6hr, metoprolol 50mg Q6 due to hyperextension DCd CLONIDINE 12/06/16 Coumadin and heparin 12/10 held due to left popliteal fossa hematoma. Placed on sq heparin for DVT prophylaxis Echo 10/25 EF 60-65%. Repeat echo with bubble study: 11/22: No shunt seen Resp: Acute, now chronic hypoxemic Respiratory failure s/p trach 11/27 Spontaneous Right sided PTX secondary to barotrauma COPD exacerbation Pneumonia most likely community-acquired Obesity hypoventilation syndrome [facility]/39. Albuterol/ipratropium aerosols every 4 hours of albuterol aerosols every 2 hours PRN. Ventilator bundle Gross tolerating CPAP until Thursday 12/14 prior to developing ileus Budesonide 0.5 mg/2 mL aerosols twice a day. Prednisone 20 mg daily s/p trach 11/[address] Martin #8 [place]. Pulmonary/Dr. Wynne has followed s/p 20Fr CT placed for right PTX 11/23, monitor CT drainage. Leave CT in place until vent settings, hypoxia improved, may have tiny apical pneumo on CT CT pulmonary angio revealed no pulmonary embolus. Masslike consolidation in the posterior right upper lobe and medial right lower lobe. Lymphadenopathy to 1 cm right hilum and subcarinal. Atelectasis left lower lobe. Discontinued Prone therapy 11/02/16. remove chest tube today. AM CXR. GI: Ileus - resolved. Morbid Obesity Elevated LFT's- now within normal. PEG tube placement 11/30. US liver: No ductal dilatation tube feeds with vital high-protein currently at 30 cc an hour. increase to 40 cc/hr. Goal 75 cc an hour Metoclopramide 10 mg every 6 hours IV. No Cholecystostomy tube recommended by Dr. Nguyen. Recommended advance diet as tolerated Famotidine 20 milligrams mg twice a day for GI prophylaxis /renal/FEN: Hyponatremia Hypopotassemia Monitor renal function, I/O's, electrolytes replacement per protocol. Currently on sodium chloride 1 g every 12 hours Endo: Hyperglycemia SSI Q6h with Regular Insulin mild protocol for glycemic control. Previously insulin detemir 62 units twice a day. Restarted 15 units twice a day 12/01. Decreased attenuation units twice daily 12/19 due to hypoglycemia Adequate blood sugar control . Heme: Normocytic anemia Leukocytosis L popliteal fossa hematoma - stable. Monitor CBC, coags- Heparin drip/Coumadin on hold it on low-dose subcutaneous heparin currently Monitor closely for compartment syndrome ID: Severe sepsis - resolved. HAP Placed back on piperacillin/tazobactam, d/c'd 12/20. Discontinued vancomycin and micafungin by ID, WBC trending down ID Amanda Haas, F/U ríos culture, C Diff- NGTD. ABX completed 12/11. (piperacillin/tazobactam and sulfamethoxazole/ trimethoprim 800/160 2 tablets 3 times a day) Sputum: Klebsiella, Stenotrophomonas and Pseudomonas 11/27 Sputum cx 11/23: Kleb, Pseudomonas, s/p (ceftriaxone and fluconazole course). ID is following-Dr. Patel s/p ceftriaxone 11/02-11/09 for Enterobacter pneumonia. Repeat sputum Klebsiella sensitive to Rocephin 10/29/16-Enterobacter in sputum, 11/06/16, 11/10 sputum- Klebsiella Urine Legionella and pneumococcal antigens negative and influenza negative C-diff PCR is negative observe clinically off abx. trend fever curve. Access RUE PICC placed 11/05 through 11/15 replaced 11/16 with left upper extremity PICC Prophylaxis GI, famotidine. DVT - IV heparin gtt, Coumadin DCd 12/10 due to left popliteal hematoma, O Heparin 5000 U q12 sq 11/09 Doppler US LE negative for DVT Palliative care is following Overall impression: very slow if any forward progress. off pathway. needs aggressive pulmonary rehab at an LTAC facility but no funding source. Continue daily SBTs and very slow weaning as tolerated. Keven Franco MD Dec 23, 2016 17:19
[2016-12-23] MEDS: ESCITALOPRAM OXALATE 10 MG TAB PO SCH (21:23)
[2016-12-24] VITALS (24 sets, daily range): BP systolic 118–136; BP diastolic 62–80; PULSE 61–75; RESP 18–25; TEMP 97.5–99.1; O2SAT 96–100
[2016-12-24] MEDS: DILTIAZEM HCL 90 MG TAB PO SCH ×4 (00:23→18:12)
[2016-12-24] MEDS: METOCLOPRAMIDE HCL 10 MG/2 ML VIAL IV SCH ×2 (00:23→06:05)
[2016-12-24] MEDS: METOPROLOL TARTRATE 50 MG TAB PO SCH ×4 (00:23→18:12)
[2016-12-24] MEDS: INSULIN NovoLIN REGULAR SUPPLEMENTAL SCALE SQ SCH ×4 (02:00→20:00)
[2016-12-24] MEDS: HALOPERIDOL LACTATE 5 MG/ML AMP IV PUSH PRN (02:45)
[2016-12-24] MEDS: CHLORHEXIDINE GLUCONATE 2 % 1 PACK (2 CLOTHS) TOP SCH (04:00)
[2016-12-24 05:45] LABS: HEMATOCRIT 29.4 % (39.0-51.0); MEAN CELL VOLUME 94.2 FL (80.0-100.0); MEAN CORPUSCULAR HEMOGLOBIN 30.6 PG (27.0-34.0); MEAN CORPUSCULAR HGB CONC 32.5 % (32.0-36.0); PLATELET COUNT 430 TH/MM3 (150-450); RED BLOOD COUNT 3.12 MIL/MM3 (4.50-5.90); RED CELL DISTRIBUTION WIDTH 15.7 % (11.6-17.2); REVIEW FLAG FINAL; WHITE BLOOD COUNT 13.2 TH/MM3 (4.0-11.0)
[2016-12-24 05:59] LABS: APTT (PATIENT) 24.6 SEC (24.3-30.1)
[2016-12-24 06:12] LABS: ANION GAP 9 MEQ/L (5-15); BICARBONATE 27.4 MEQ/L (21.0-32.0); BLOOD UREA NITROGEN 11 MG/DL (7-18); CHLORIDE 101 MEQ/L (98-107); GLOMERULAR FILTRATION RATE 690 ML/MIN (>89); POTASSIUM 3.7 MEQ/L (3.5-5.1); SODIUM (NA) 137 MEQ/L (136-145)
[2016-12-24] MEDS: RESP: BUDESONIDE 0.5 MG/2 ML NEB NEB SCH ×2 (08:00→20:58)
[2016-12-24] MEDS: ARTIFICIAL TEARS OPTH OINT 3.5 APPLIC/3.5 GM TUBO EACH EYE SCH ×2 (09:00→21:12)
[2016-12-24] MEDS: INSULIN DETEMIR 100 UNITS/ML VIAL SQ SCH ×2 (09:00→21:00)
[2016-12-24] MEDS: SODIUM CHLORIDE 0.9% FLUSH 10 ML FLUSH IVF SCH (09:47)
[2016-12-24] MEDS: CHLORHEXIDINE 0.12% (ORAL KIT) 15 ML CUP MT SCH ×2 (09:47→21:11)
[2016-12-24] MEDS: predniSONE 20 MG TAB PO SCH (09:47)
[2016-12-24] MEDS: FAMOTIDINE 20 MG TAB NG SCH ×2 (09:47→21:13)
[2016-12-24] MEDS: AMIODARONE 200 MG TAB OG-TUBE SCH (09:48)
[2016-12-24] MEDS: DIGOXIN 0.125 MG TAB PO SCH (09:48)
[2016-12-24] MEDS: SODIUM CHLORIDE 1 GRAM TAB PO SCH ×2 (09:48→21:13)
[2016-12-24] MEDS: LISINOPRIL 10 MG TAB PO SCH (09:48)
[2016-12-24] MEDS: ENOXAPARIN SODIUM 40 MG/0.4 ML SYRINGE SQ SCH (09:49)
[2016-12-24] MEDS: METOCLOPRAMIDE HCL SYRUP 10 MG/10 ML UDC PO SCH ×2 (13:00→21:13)
[2016-12-24] MEDS: ESCITALOPRAM OXALATE 10 MG TAB PO SCH (21:13)
[2016-12-25] VITALS (22 sets, daily range): BP systolic 107–148; BP diastolic 55–81; PULSE 61–72; RESP 16–35; TEMP 98.3–99; O2SAT 90–98
[2016-12-25] MEDS: METOPROLOL TARTRATE 50 MG TAB PO SCH ×4 (00:55→17:41)
[2016-12-25] MEDS: DILTIAZEM HCL 90 MG TAB PO SCH ×4 (00:55→17:40)
[2016-12-25] MEDS: INSULIN NovoLIN REGULAR SUPPLEMENTAL SCALE SQ SCH ×4 (02:00→20:00)
[2016-12-25] MEDS: CHLORHEXIDINE GLUCONATE 2 % 1 PACK (2 CLOTHS) TOP SCH (04:00)
[2016-12-25] MEDS: METOCLOPRAMIDE HCL SYRUP 10 MG/10 ML UDC PO SCH ×3 (05:01→20:50)
[2016-12-25 07:08] LABS: APTT (PATIENT) 24.4 SEC (24.3-30.1)
[2016-12-25] MEDS: RESP: BUDESONIDE 0.5 MG/2 ML NEB NEB SCH ×2 (07:48→19:29)
[2016-12-25] MEDS: RESP: ALBUTEROL 2.5 MG/3 ML NEB (PRN) NEB (07:48)
[2016-12-25] MEDS: SODIUM CHLORIDE 0.9% FLUSH 10 ML FLUSH IVF SCH (09:00)
[2016-12-25] MEDS: CHLORHEXIDINE 0.12% (ORAL KIT) 15 ML CUP MT SCH ×2 (09:50→20:48)
[2016-12-25] MEDS: DIGOXIN 0.125 MG TAB PO SCH (09:54)
[2016-12-25] MEDS: predniSONE 20 MG TAB PO SCH (09:54)
[2016-12-25] MEDS: AMIODARONE 200 MG TAB OG-TUBE SCH (09:54)
[2016-12-25] MEDS: ARTIFICIAL TEARS OPTH OINT 3.5 APPLIC/3.5 GM TUBO EACH EYE SCH ×2 (09:54→20:49)
[2016-12-25] MEDS: FAMOTIDINE 20 MG TAB NG SCH ×2 (09:54→20:50)
[2016-12-25] MEDS: INSULIN DETEMIR 100 UNITS/ML VIAL SQ SCH ×2 (09:55→20:50)
[2016-12-25] MEDS: SODIUM CHLORIDE 1 GRAM TAB PO SCH ×2 (09:55→20:50)
[2016-12-25] MEDS: ENOXAPARIN SODIUM 40 MG/0.4 ML SYRINGE SQ SCH (09:55)
[2016-12-25] MEDS: LISINOPRIL 10 MG TAB PO SCH (09:55)
[2016-12-25] MEDS: REMOVE OLD FENTANYL PATCH T-DERMAL SCH (14:00)
--- NOTE | 2016-12-25 18:59 | HHI.CCPN ---
Subjective Remarks/Hospital Course 56-year-old very pleasant gentleman with past medical history of COPD, and hypertension presents complaining of shortness of breath and nausea, generalized fatigue and chills for 2 days. He thinks it has been from being out in the heat. Denies any fever, chest pain, vomiting, abdominal pain, focal weakness or numbness. In the emergency department his saturation was in mid 80s on arrival with auditory wheezing and tachypnea. He was placed on 4 liters of NC and saturating in the low 90. He does not use oxygen at home. He also mentioned 2 days ago, he came home and was sitting in a chair and was taking his shoes off when he passed out. States he woke up and was still on the chair. This has never happen before. 10/25: Patient intubated secondary to increasing oxygen requirements, altered mental status. Discussed with son. Somewhat hypertensive post intubation. 10/26: Placed on rotaprone bed last evening. Flolan initiated. Saturations improved. Afebrile. Remains on Nimbex drip. 10/27: T max 99.7. Tolerated on not prone position 2 hours yesterday. Tolerating trickle feeds. FiO2 down to 55% 10/28: Tmax 99.9. When unprone for chest x-ray this a.m. desaturated. Currently on 90% FiO2. Actually hypertensive. No bowel movements. Remains paralyzed 10/29: Remains intubated sedated on continuous Prone therapy Except for chest x- ray. Fever 100.8. Panculture requested. Zyvox added. Continue IV sedation with propofol and fentanyl and Versed, neuromuscular paralysis with Nimbex 10/30: Prone cycle changed to 8 hr prone, 1 hr supine from 10/29. Due to hypoxia will continue with same cycle today. Chest x-ray remains unchanged. Patient remains severely hypoxemic FiO2 at 75% PEEP at 16. WBC count worsened to 18. Remains neuromuscularly paralyzed. 10/31: Patient remains critically ill but stable. Oxygen saturation 95% on 55 of FiO2 and PEEP of 16. Reduce PEEP to 14, FiO2 to 50% and start weaning Flolan. Increase supine time to 4 hours, reduce Prone time to 6 hours 11/01: Patient remains intubated sedated critically ill on neuromuscular paralysis. FiO2 reduced to 50, I will attempt PEEP wean gradually to 12 today. Prone/supine cycles will be changed to 6 hours each 11/02: FiO2 remains at 50%, PEEP reduced from 14 to 12 today, TV increased to 600 and RR to 20, in anticipation of discontinuing prone therapy, which will be DCd today. Off Flolan for 2 days 11/03: off pronation. fio2 up to 65% , peep 12. agitation causing desaturation. minimal improvements. 11/04: good diuresis yesterday, but despite that, fio2 persists at 65% and spo2 decreasing to 91% today. no real improvements and some worsening of pulmonary function despite ongoing aggressive therapies. still not safe for SBT given hypoxia. also severely hypertensive this morning. 11/05: continues to diurese well and Cr still at baseline. fio2 at 90% however, and no clinical improvements in mental status or hypoxia. still unsafe for SBT given hypoxemia. off pathway. hypertension under much better control. poor neuro status is concerning. 11/06: Remains severely hypoxemic. FiO2 was 100% PEEP 14. I reduce FiO2 to 90% after increasing PEEP to 16. Developed a flutter with RVR overnight, currently on Cardizem drip. Unable to do SBT due to very high settings 11/07: Remains hypoxemic and but able to wean FiO2 down to 80% with PEEP of 16. Remains unresponsive on sedation. Unable to trach due to his high vent settings and high FiO2. Remains on Cardizem and 15 mg per hour, with rate controlled a flutter. We'll start by mouth Cardizem in an attempt to wean IV Cardizem 11/08: Remains critically ill hypoxic but FiO2 now weaned to 60%, PEEP remains at 16. Very heavily sedated no withdrawal to pain. Will hold all continuos sedation. Sputum culture with Klebsiella sensitive to Rocephin. A flutter persistent, will start IV heparin 11/09 Patient is sedated with Diprivan and intubated, On Cardizem drip 15mg/hr for Aflutter. Heparin drip stated yesterday. 11/10 Patient remains sedated and intubated. On Heparin drip. Persistent fever with Tmax 102.5. ETT was replaced yesterday. 11/11 Patient was placed on Cardizem and amio drips overnight for Afib with RVR. Sedated with Diprivan and intubated. On Heparin drip. T;99.3 this morning. 11/12 Patient remains intubated and sedated with Diprivan. On Cardizem drip 15mg/ hr. Afebrile, Tmax 100.6 11/13 Patient is sedate with Diprivan and intubated. In Afib with RVR now on Amio drip. Tmax 100,4 11/14 Remains intubated sedated with propofol and fentanyl. Afib rate controlled , remains on amiodarone and Cardizem gtt. Fio2 remains high at 70%, PEEP 12. CXR persistent bibasilar infiltrates/effusion 11/15: Currently sedated with propofol and fentanyl drips. Currently in A. fib/ flutter on amiodarone drip and Cardizem drip. PEEP increased to 14. FiO2 65. 11/16: Tmax 100.1. Patient more alert and tachycardic this AM. Adding midazolam gtt for sedation and currently tolerating tube feeding. Positive BM. PEEP to 12. FiO2 75% 11/17: Afebrile. FiO2 down to 60%. PEEP set 12. Multiple tracheostomy hopefully on Saturday. Heart rate better control. 11/18: Afebrile. Discontinuing amiodarone drip today and switching to oral. FiO2 between 60 and 70%. Restarting epoprostenol in attempt to get FiO2 down to 50% for tracheostomy tomorrow 11/19 No events overnight. Sedated with Diprivan, Fentanyl and versed. Still requiring high O2 - on PRVC with PEEP;12 and FIO2 70%. Afebrile. 11/20 Patient remains sedated with Diprivan, versed, Fentanyl and intubated. On PRVC with PEEP: 12, FIO2 50% , sats 88-90%. On Heparin drip. 11/21: Tmax 99.4. Tolerating tube feeds. Remains on heparin drip. FiO2 down to 55%. PEEP of 10. Eyes open blinks spontaneously. Does squeeze and weakly on left side with encouragement 11/22: Intubated heavily sedated. FiO2 50%, remains on Flolan. PEEP 10. Bumex 1 mg 1 and Diamox 500 mg 1 IV. She will negative balance. Heparinized tube feeds on hold for tracheostomy today at 12. Remains in atrial flutter 11/23 Patient remains sedated with Diprivan, Fentanyl, Versed and intubated. On Heparin drip. For CT guided thoracentesis today. On APRV 11/24 Patient remains sedated and intubated. 20Fr CT placed yesterday for right sided PTX. Spiked fever with T 101.6. Remains on Heparin drip. 11/25 Patient remains intubated with Diprivan, fentanyl and intubated. On PRVC with PEEP: 10, FIO2 50%. Afebrile. 11/26 Patient is sedated with Diprivan, Fentanyl and intubated. Afebrile. On Heparin drip. On PRVC with PEEP: 10, FIO2 60% 11/27 Patient is scheduled for trach in OR today. Sedated and intubated. Heparin drip is off for trach. 11/28 Patient s/p trach yesterday. Sedated with Diprivan and Fentanyl. Afebrile. On PRVC with PEEP; 10 and FIO2 50% 11/29 No events overnight. Sedated and on ventilator via trach. For PEG tube placement today. Heparin drip on hold. 11/30: Currently afebrile. MAXIMUM TEMPERATURE 100. Positive BM via fecal containing device. Tube feeds on hold secondary to plan PEG tube placement today. Heparin drip on hold as well. 12/01: Status post PEG tube placement yesterday per IR. Heparin drip and tube feeds restarted today. Restarting insulin detemir. Awake and alert and weakly follows commands on sedation 12/02: Tmax 99.3. Tube feeds restarted and tolerating. Awake and alert and weakly follows commands. Plan for MRI brain/C-spine a.m. 12/03. 12/03: Patient is awake. Tolerating PRVC, very weakly wiggling cedric toes. MRI today 12/04/16: Tolerated CPAP with high settings yesterday for several hours 15 over 5. Becomes tachypneic and pressure support wean. MRI of the C-spine shows increased signal, no cord compression. Discussed with Dr. Riggins. He is requesting flexion extension films of C spine. 12/05/16: Desaturated on CPAP today. Now on full vent support with 50% FiO2. Continues to have functional quadriparesis. Dr Riggins reviewed MRI spine- he is not sure about increased signal in cord, but there could be cervical hyperextension injury, from intubation. 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 Cannot do cspine extension/flexion films. Repeat MRI c- spine in a few weeks 12/06/16: Patient remains on vent, placed on CPAP 11/29 now, on 50% FiO2. No improvement in neuro exam patient is awake. Able to minimally shrug shoulders. Continues to behave like functional quadriplegia 12/07/16: Tolerated CPAP approximately 6 hours yesterday but did not tolerate TPs. Having anxiety and some frustration due to neuromuscular weakness. I will add Lexapro. Give Bumex 1 mg x1, CXR shows pleural effusions. 12/08: On 11/29 PS since AM. CBC chest x-ray stable. Lexapro added yesterday for depression. Urine output 3.5 L in 24 hours 12/09: Tolerated CPAP well yesterday tolerated TPs for 2 hours but failed to CPAP today due to hypoxia and tachycardia. Currently on PRVC received metoprolol and fentanyl push with improved heart rate 12/10: Patient is tolerating CPAP today. Left popliteal fossa hematoma, large on left lower extremity ultrasound. Heparin and Coumadin placed on hold will get orthopedic consult 12/11: Slightly improved power of LE, unchanged on upper. L calf remains tense, but pulses are palpable. Holding anticoagulation 12/12: Tolerating CPAP 09/07. Slight improvement in muscle strength. Heparin remains on hold 12/13: Heparin remains on hold. No increase in hematoma clinically. Tolerating CPAP. 12/14: Patient complains of not feeling well today. Wbc count increased to 21, 000. KUB shows ileus. Hold tube feeds, Reglan 10 mg IV every 8 hours, send panculture 12/15: Large amount of output from the PEG tube and intermittent wall suction. Stat CT of the abdomen pelvis did not show any perforation or evidence of colitis. Shows ileus. Keep nothing by mouth IV. GI is following. CT chest shows tiny anterior pneumothorax. More Lethargic today, white count was 21,000 yesterday. Hypotensive systolic blood pressure in 70s. Probable severe sepsis/ septic shock. Start Zosyn and Levaquin and single dose of vancomycin. Check C Diff 12/16: General surgery does not recommend gallbladder drainage at this time. WBC count decreasing on Zosyn vancomycin and micafungin. 17.6 today. F/U KUB in am. GI ID following 12/17: no improvements or changes. still on full vent support. failing SBTs for tachypnea. 12/18: still failing SBTs. still on full vent support. no changes. needs placement. 12/19: Afebrile. Tolerating tube feeds at 20 cc an hour. 4 cc stool. A.m. laboratories pending. 12/20: Afebrile. Awake and alert and interactive. Tolerating tube feeds at 30 cc an hour. Positive BM. 12/21: no changes. slow vent weaning persists. 12/22: no changes. awake, on PSV. afebrile. wbc stable. 12/23: no improvements. still on PSV, slow wean. plan to remove chest tube today. 12/24: no changes or improvements. slow wean on vent. chest tube removed yesterday. SUBJECTIVE: 12/25: no changes. tolerated short period of t-piece today, back on vent. Objective Vital Signs Date Time Temp Pulse Resp B/P (MAP) Pulse Ox O2 Delivery O2 Flow Rate FiO2 12/25/16 18:00 71 12/25/16 18:00 24 116/63 (80) 95 12/25/16 16:00 98.3 12/25/16 07:48 T-piece 4.00 40 Intake and Output 12/25/16 12/25/16 12/26/16 08:00 16:00 00:00 Intake Total 379 ml 657 ml Output Total 950 ml 575 ml Balance -571 ml 82 ml Result Diagram: 12/24/16 0330 12/24/16 0330 Imaging Last Impressions Chest X-Ray 12/20/16 0600 Signed Impressions: Service Date/Time: November 02:58 - CONCLUSION: 1. Cardiomegaly with stable bibasilar densities. 2. Right-sided chest tube without pneumothorax. Javier Ulloa MD Abdomen X-Ray 12/19/16 0000 Signed Impressions: Service Date/Time: Monday, December 19, 2016 07:55 - CONCLUSION: Mildly dilated loops of small and large bowel characteristic of ileus. Fito Joshua MD Abdomen/Pelvis CT 12/15/16 0000 Signed Impressions: Service Date/Time: Thursday, December 15, 2016 10:50 - CONCLUSION: 1. Distended bowel especially the small bowel and the cecum. This is nonspecific. A transition point is not seen. This could relate to ileus. Oral contrast does extend to the rectum. 2. Bibasilar areas of consolidation at the lung bases. There also is a possible small pneumothorax on the right. The patient does have a right chest tube in place. 3. G-tube. 4. Distended gallbladder. 5. Increased soft tissue density in the left lateral abdominal wall which could be from prior trauma or edema. Jayson Soto MD Lower Extremity Ultrasound 12/09/16 0000 Signed Impressions: Service Date/Time: Friday, December 09, 2016 17:13 - CONCLUSION: 1. No evidence of DVT 2. Large complex mass in the pump to fossa characteristic of a hematoma. Joni Barfield MD Cervical Spine MRI 12/03/16 0000 Signed Impressions: Service Date/Time: Saturday, December 03, 2016 13:13 - CONCLUSION: Severely limited exam. I believe there is increased signal in the cervical cord mid C3 to mid C5. Ward Kim MD FACR Brain MRI 12/03/16 0000 Signed Impressions: Service Date/Time: Saturday, December 03, 2016 13:13 - CONCLUSION: 1. There is a small area of abnormal T2 signal in the left frontal cortex this is unchanged from the previous examination dated 11/26/16. This is nonspecific in appearance on the MRI. Differential considerations would be a small area of gliosis versus an old area of contusion. Follow up examination in 6 months to document stability would be warranted. 2. No findings to indicate acute cortical infarction are identified. Román Kim MD Gastrostomy Tube Placement 11/30/16 0000 Signed Impressions: Service Date/Time: Wednesday, November 30, 2016 12:22 - CONCLUSION: Uncomplicated gastrostomy tube placement as above. Jorge Jolly MD Liver Ultrasound 11/09/16 0000 Signed Impressions: Service Date/Time: Wednesday, November 09, 2016 13:58 - CONCLUSION: Sono dense liver without duct dilatation. 4 mm common duct. Ward Kim MD FACR Chest CT 11/06/16 0000 Signed Impressions: Service Date/Time: Sunday, November 06, 2016 11:24 - CONCLUSION: 1. Dense bilateral posterior lower lobe airspace consolidation consistent with aspiration versus less likely pneumonia. 2. Linear consolidation in the right middle lobe consistent with atelectasis versus aspiration. 3. Trace left and small right pleural effusions. 4. Support lines and tubes in good position. 5. Prominent coronary artery calcifications. Nico Vaughan MD Head CT 11/05/16 0000 Signed Impressions: Service Date/Time: Saturday, November 05, 2016 21:43 - CONCLUSION: 1. No acute intracranial abnormalities. Pansinus fluid opacification. Cristofer De Santiago MD Carotid Artery Ultrasound 10/25/16 0000 Signed Impressions: Service Date/Time: , October 25, 2016 08:27 - CONCLUSION: Mild to moderate plaque in both carotid systems with less than 40%% diameter stenosis by velocity criteria. Jhonathan Dietz MD CT Angiography 10/25/16 0000 Signed Impressions: Service Date/Time: , October 25, 2016 06:12 - CONCLUSION: 1. Negative for pulmonary embolism. 2. There is a fairly large area of masslike consolidation in the medial right lung involving posterior segment right upper lobe and medial aspect of right lower lobe. There is associated right hilar and mediastinal adenopathy measuring up to 2.1 cm. Differential diagnosis includes pneumonia or underlying lung neoplasm. Close followup imaging recommended after treatment for pneumonia, to assess for underlying mass. Cristofer De Santiago MD Objective Remarks GENERAL: 56-year-old male, on ventilator via tracheostomy in no acute distress SKIN: Warm and dry. Positive intertrigo HEAD: Atraumatic. Normocephalic. EYES: Pupils equal and round about 3 mm bilaterally and reactive. ENT: No nasal bleeding or discharge. NECK: Trachea midline. No JVD. Tracheostomy site has some yellow secretions surrounding CARDIOVASCULAR: normal rate, regular rhythm. RESPIRATORY: equal chest rise. unlabored. GASTROINTESTINAL: Abdomen soft, obese, distended. PEG tube site is clean dry and intact MUSCULOSKELETAL: Extremities with trace lower extremity. No obvious deformities. NEUROLOGICAL: Eyes are open. Moves fingers and toes. Shrugs shoulders. Squeezes hands. Nods head appropriately to questions. Sensation appears intact A/P Assessment and Plan Neuro/Psych: Metabolic encephalopathy - resolved. CIM/SHEFALI s/p Neuromuscular paralysis for Prone therapy Syncope Depression MRI C-spine showing increased signals C3-C5 region. Dr Riggins reviewed MRI spine- not sure about increased signal in cord, could be cervical hyperextension injury, from intubation according to him. Unable to do flexion- extension films of the C-spine (trached patient). 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 Haloperidol 5mg iv q4h prn for agitation. Escitalopram 10 mg qhs or depression from 12/07/16. MRI brain 11/26: Small focal signal abnormality in the superior medial left frontal lobe. Could be sequela from prior insult such as a contusion or small infarct. No acute infarct MRI brain 12/[address] on admission revealed no acute intracranial findings, CT brain 11/05- no acute findings. opacification of sinuses. EEG 11/20: No seizure activity. EEG 11/09: severe encephalopathy PT/OT for range of motion, up to stretcher chair as tolerated CV: Hypotension-resolved Atrial fib/ flutter with RVR - rate controlled. Hypertension decrease amiodarone to 200mg po daily for maintenance dose. digoxin 0.125 mg po daily. recheck level 01/04 and [id number] as long as stable. PO Diltiazem 90 mg PO q6hr, metoprolol 50mg Q6 Coumadin and heparin 12/10 held due to left popliteal fossa hematoma. Placed on sq heparin for DVT prophylaxis: this has resolved. slowly restart Echo 10/25 EF 60-65%. Repeat echo with bubble study: 11/22: No shunt seen Resp: Acute, now chronic hypoxemic Respiratory failure s/p trach 11/27 Spontaneous Right sided PTX secondary to barotrauma - resolved. COPD exacerbation - resolved. Pneumonia most likely community-acquired - resolved. Obesity hypoventilation syndrome Tobacco use disorder albuterol aerosols every 2 hours PRN. Ventilator bundle tolerating intermittent PSV. Budesonide 0.5 mg/2 mL aerosols twice a day. Prednisone 20 mg daily, will wean to 10mg daily. s/p trach 11/[address] Martin #8 [place]. Pulmonary/Dr. Wynne has followed s/p 20Fr CT placed for right PTX 11/23, monitor CT drainage. d/c chest tube . CT pulmonary angio revealed no pulmonary embolus. Masslike consolidation in the posterior right upper lobe and medial right lower lobe. Lymphadenopathy to 1 cm right hilum and subcarinal. Atelectasis left lower lobe. Discontinued Prone therapy 11/02/16. slow wean of mechanical ventilation. GI: Ileus - resolved. Morbid Obesity Elevated LFT's- now within normal. PEG tube placement 11/30. US liver: No ductal dilatation tube feeds with vital high-protein currently at 40. increase to 50 cc/hr. Metoclopramide 10 mg every 6 hours, change to PO. No Cholecystostomy tube recommended by Dr. Nguyen. Recommended advance diet as tolerated Famotidine 20 milligrams mg twice a day for GI prophylaxis /renal/FEN: Hyponatremia Hypopotassemia Monitor renal function, I/O's, electrolytes replacement per protocol. Currently on sodium chloride 1 g every 12 hours Endo: Hyperglycemia SSI Q6h with Regular Insulin mild protocol for glycemic control. Previously insulin detemir 62 units twice a day. Restarted 15 units twice a day 12/01. Decreased attenuation units twice daily 12/19 due to hypoglycemia Adequate blood sugar control . Heme: Normocytic anemia Leukocytosis L popliteal fossa hematoma - stable. Monitor CBC, coags- Heparin drip/Coumadin on hold it on low-dose subcutaneous heparin currently: will need to restart anticoagulation. Monitor closely for compartment syndrome ID: Severe sepsis - resolved. HCAP - resolved. Placed back on piperacillin/tazobactam, d/c'd 12/20. Discontinued vancomycin and micafungin by ID, WBC trending down ID Amanda Haas, F/U ríos culture, C Diff- NGTD. ABX completed 12/11. (piperacillin/tazobactam and sulfamethoxazole/ trimethoprim 800/160 2 tablets 3 times a day) Sputum: Klebsiella, Stenotrophomonas and Pseudomonas 11/27 Sputum cx 11/23: Kleb, Pseudomonas, s/p (ceftriaxone and fluconazole course). ID is following-Dr. Patel s/p ceftriaxone 11/02-11/09 for Enterobacter pneumonia. Repeat sputum Klebsiella sensitive to Rocephin 10/29/16-Enterobacter in sputum, 11/06/16, 11/10 sputum- Klebsiella Urine Legionella and pneumococcal antigens negative and influenza negative C-diff PCR is negative observe clinically off abx. trend fever curve. Access RUE PICC placed 11/05 through 11/15 replaced 11/16 with left upper extremity PICC, d/c'd 12/23. Prophylaxis GI, famotidine. DVT - IV heparin gtt, Coumadin DCd 12/10 due to left popliteal hematoma, O Heparin 5000 U q12 sq. will likely need to restart anticoagulation. 11/09 Doppler US LE negative for DVT Palliative care is following Overall impression: very slow if any forward progress. off pathway. needs aggressive pulmonary rehab at an LTAC facility but no funding source. Continue daily SBTs and very slow weaning as tolerated. Keven Franco MD Dec 25, 2016 18:59
[2016-12-25] MEDS: ESCITALOPRAM OXALATE 10 MG TAB PO SCH (20:49)
[2016-12-26] VITALS (21 sets, daily range): BP systolic 112–135; BP diastolic 57–71; PULSE 66–80; RESP 18–26; TEMP 98.3–99.9; O2SAT 91–99
[2016-12-26] MEDS: DILTIAZEM HCL 90 MG TAB PO SCH ×4 (00:22→17:41)
[2016-12-26] MEDS: METOPROLOL TARTRATE 50 MG TAB PO SCH ×4 (00:22→17:41)
[2016-12-26] MEDS: INSULIN NovoLIN REGULAR SUPPLEMENTAL SCALE SQ SCH ×4 (02:00→20:00)
[2016-12-26] MEDS: CHLORHEXIDINE GLUCONATE 2 % 1 PACK (2 CLOTHS) TOP SCH (04:00)
[2016-12-26] MEDS: METOCLOPRAMIDE HCL SYRUP 10 MG/10 ML UDC PO SCH ×3 (05:23→20:11)
[2016-12-26 06:51] LABS: HEMATOCRIT 30.7 % (39.0-51.0); MEAN CELL VOLUME 93.1 FL (80.0-100.0); MEAN CORPUSCULAR HEMOGLOBIN 30.6 PG (27.0-34.0); MEAN CORPUSCULAR HGB CONC 32.8 % (32.0-36.0); PLATELET COUNT 498 TH/MM3 (150-450); RED CELL DISTRIBUTION WIDTH 15.7 % (11.6-17.2); REVIEW FLAG FINAL; WHITE BLOOD COUNT 16.1 TH/MM3 (4.0-11.0)
[2016-12-26 07:01] LABS: APTT (PATIENT) 25.1 SEC (24.3-30.1)
[2016-12-26 07:05] LABS: GLOMERULAR FILTRATION RATE 690 ML/MIN (>89)
[2016-12-26] MEDS: RESP: BUDESONIDE 0.5 MG/2 ML NEB NEB SCH ×2 (07:49→19:54)
--- NOTE | 2016-12-26 07:50 | HHI.CCPN ---
Subjective Remarks/Hospital Course 56-year-old very pleasant gentleman with past medical history of COPD, and hypertension presents complaining of shortness of breath and nausea, generalized fatigue and chills for 2 days. He thinks it has been from being out in the heat. Denies any fever, chest pain, vomiting, abdominal pain, focal weakness or numbness. In the emergency department his saturation was in mid 80s on arrival with auditory wheezing and tachypnea. He was placed on 4 liters of NC and saturating in the low 90. He does not use oxygen at home. He also mentioned 2 days ago, he came home and was sitting in a chair and was taking his shoes off when he passed out. States he woke up and was still on the chair. This has never happen before. 10/25: Patient intubated secondary to increasing oxygen requirements, altered mental status. Discussed with son. Somewhat hypertensive post intubation. 10/26: Placed on rotaprone bed last evening. Flolan initiated. Saturations improved. Afebrile. Remains on Nimbex drip. 10/27: T max 99.7. Tolerated on not prone position 2 hours yesterday. Tolerating trickle feeds. FiO2 down to 55% 10/28: Tmax 99.9. When unprone for chest x-ray this a.m. desaturated. Currently on 90% FiO2. Actually hypertensive. No bowel movements. Remains paralyzed 10/29: Remains intubated sedated on continuous Prone therapy Except for chest x- ray. Fever 100.8. Panculture requested. Zyvox added. Continue IV sedation with propofol and fentanyl and Versed, neuromuscular paralysis with Nimbex 10/30: Prone cycle changed to 8 hr prone, 1 hr supine from 10/29. Due to hypoxia will continue with same cycle today. Chest x-ray remains unchanged. Patient remains severely hypoxemic FiO2 at 75% PEEP at 16. WBC count worsened to 18. Remains neuromuscularly paralyzed. 10/31: Patient remains critically ill but stable. Oxygen saturation 95% on 55 of FiO2 and PEEP of 16. Reduce PEEP to 14, FiO2 to 50% and start weaning Flolan. Increase supine time to 4 hours, reduce Prone time to 6 hours 11/01: Patient remains intubated sedated critically ill on neuromuscular paralysis. FiO2 reduced to 50, I will attempt PEEP wean gradually to 12 today. Prone/supine cycles will be changed to 6 hours each 11/02: FiO2 remains at 50%, PEEP reduced from 14 to 12 today, TV increased to 600 and RR to 20, in anticipation of discontinuing prone therapy, which will be DCd today. Off Flolan for 2 days 11/03: off pronation. fio2 up to 65% , peep 12. agitation causing desaturation. minimal improvements. 11/04: good diuresis yesterday, but despite that, fio2 persists at 65% and spo2 decreasing to 91% today. no real improvements and some worsening of pulmonary function despite ongoing aggressive therapies. still not safe for SBT given hypoxia. also severely hypertensive this morning. 11/05: continues to diurese well and Cr still at baseline. fio2 at 90% however, and no clinical improvements in mental status or hypoxia. still unsafe for SBT given hypoxemia. off pathway. hypertension under much better control. poor neuro status is concerning. 11/06: Remains severely hypoxemic. FiO2 was 100% PEEP 14. I reduce FiO2 to 90% after increasing PEEP to 16. Developed a flutter with RVR overnight, currently on Cardizem drip. Unable to do SBT due to very high settings 11/07: Remains hypoxemic and but able to wean FiO2 down to 80% with PEEP of 16. Remains unresponsive on sedation. Unable to trach due to his high vent settings and high FiO2. Remains on Cardizem and 15 mg per hour, with rate controlled a flutter. We'll start by mouth Cardizem in an attempt to wean IV Cardizem 11/08: Remains critically ill hypoxic but FiO2 now weaned to 60%, PEEP remains at 16. Very heavily sedated no withdrawal to pain. Will hold all continuos sedation. Sputum culture with Klebsiella sensitive to Rocephin. A flutter persistent, will start IV heparin 11/09 Patient is sedated with Diprivan and intubated, On Cardizem drip 15mg/hr for Aflutter. Heparin drip stated yesterday. 11/10 Patient remains sedated and intubated. On Heparin drip. Persistent fever with Tmax 102.5. ETT was replaced yesterday. 11/11 Patient was placed on Cardizem and amio drips overnight for Afib with RVR. Sedated with Diprivan and intubated. On Heparin drip. T;99.3 this morning. 11/12 Patient remains intubated and sedated with Diprivan. On Cardizem drip 15mg/ hr. Afebrile, Tmax 100.6 11/13 Patient is sedate with Diprivan and intubated. In Afib with RVR now on Amio drip. Tmax 100,4 11/14 Remains intubated sedated with propofol and fentanyl. Afib rate controlled , remains on amiodarone and Cardizem gtt. Fio2 remains high at 70%, PEEP 12. CXR persistent bibasilar infiltrates/effusion 11/15: Currently sedated with propofol and fentanyl drips. Currently in A. fib/ flutter on amiodarone drip and Cardizem drip. PEEP increased to 14. FiO2 65. 11/16: Tmax 100.1. Patient more alert and tachycardic this AM. Adding midazolam gtt for sedation and currently tolerating tube feeding. Positive BM. PEEP to 12. FiO2 75% 11/17: Afebrile. FiO2 down to 60%. PEEP set 12. Multiple tracheostomy hopefully on Saturday. Heart rate better control. 11/18: Afebrile. Discontinuing amiodarone drip today and switching to oral. FiO2 between 60 and 70%. Restarting epoprostenol in attempt to get FiO2 down to 50% for tracheostomy tomorrow 11/19 No events overnight. Sedated with Diprivan, Fentanyl and versed. Still requiring high O2 - on PRVC with PEEP;12 and FIO2 70%. Afebrile. 11/20 Patient remains sedated with Diprivan, versed, Fentanyl and intubated. On PRVC with PEEP: 12, FIO2 50% , sats 88-90%. On Heparin drip. 11/21: Tmax 99.4. Tolerating tube feeds. Remains on heparin drip. FiO2 down to 55%. PEEP of 10. Eyes open blinks spontaneously. Does squeeze and weakly on left side with encouragement 11/22: Intubated heavily sedated. FiO2 50%, remains on Flolan. PEEP 10. Bumex 1 mg 1 and Diamox 500 mg 1 IV. She will negative balance. Heparinized tube feeds on hold for tracheostomy today at 12. Remains in atrial flutter 11/23 Patient remains sedated with Diprivan, Fentanyl, Versed and intubated. On Heparin drip. For CT guided thoracentesis today. On APRV 11/24 Patient remains sedated and intubated. 20Fr CT placed yesterday for right sided PTX. Spiked fever with T 101.6. Remains on Heparin drip. 11/25 Patient remains intubated with Diprivan, fentanyl and intubated. On PRVC with PEEP: 10, FIO2 50%. Afebrile. 11/26 Patient is sedated with Diprivan, Fentanyl and intubated. Afebrile. On Heparin drip. On PRVC with PEEP: 10, FIO2 60% 11/27 Patient is scheduled for trach in OR today. Sedated and intubated. Heparin drip is off for trach. 11/28 Patient s/p trach yesterday. Sedated with Diprivan and Fentanyl. Afebrile. On PRVC with PEEP; 10 and FIO2 50% 11/29 No events overnight. Sedated and on ventilator via trach. For PEG tube placement today. Heparin drip on hold. 11/30: Currently afebrile. MAXIMUM TEMPERATURE 100. Positive BM via fecal containing device. Tube feeds on hold secondary to plan PEG tube placement today. Heparin drip on hold as well. 12/01: Status post PEG tube placement yesterday per IR. Heparin drip and tube feeds restarted today. Restarting insulin detemir. Awake and alert and weakly follows commands on sedation 12/02: Tmax 99.3. Tube feeds restarted and tolerating. Awake and alert and weakly follows commands. Plan for MRI brain/C-spine a.m. 12/03. 12/03: Patient is awake. Tolerating PRVC, very weakly wiggling cedric toes. MRI today 12/04/16: Tolerated CPAP with high settings yesterday for several hours 15 over 5. Becomes tachypneic and pressure support wean. MRI of the C-spine shows increased signal, no cord compression. Discussed with Dr. Riggins. He is requesting flexion extension films of C spine. 12/05/16: Desaturated on CPAP today. Now on full vent support with 50% FiO2. Continues to have functional quadriparesis. Dr Riggins reviewed MRI spine- he is not sure about increased signal in cord, but there could be cervical hyperextension injury, from intubation. 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 Cannot do cspine extension/flexion films. Repeat MRI c- spine in a few weeks 12/06/16: Patient remains on vent, placed on CPAP 11/29 now, on 50% FiO2. No improvement in neuro exam patient is awake. Able to minimally shrug shoulders. Continues to behave like functional quadriplegia 12/07/16: Tolerated CPAP approximately 6 hours yesterday but did not tolerate TPs. Having anxiety and some frustration due to neuromuscular weakness. I will add Lexapro. Give Bumex 1 mg x1, CXR shows pleural effusions. 12/08: On 11/29 PS since AM. CBC chest x-ray stable. Lexapro added yesterday for depression. Urine output 3.5 L in 24 hours 12/09: Tolerated CPAP well yesterday tolerated TPs for 2 hours but failed to CPAP today due to hypoxia and tachycardia. Currently on PRVC received metoprolol and fentanyl push with improved heart rate 12/10: Patient is tolerating CPAP today. Left popliteal fossa hematoma, large on left lower extremity ultrasound. Heparin and Coumadin placed on hold will get orthopedic consult 12/11: Slightly improved power of LE, unchanged on upper. L calf remains tense, but pulses are palpable. Holding anticoagulation 12/12: Tolerating CPAP 09/07. Slight improvement in muscle strength. Heparin remains on hold 12/13: Heparin remains on hold. No increase in hematoma clinically. Tolerating CPAP. 12/14: Patient complains of not feeling well today. Wbc count increased to 21, 000. KUB shows ileus. Hold tube feeds, Reglan 10 mg IV every 8 hours, send panculture 12/15: Large amount of output from the PEG tube and intermittent wall suction. Stat CT of the abdomen pelvis did not show any perforation or evidence of colitis. Shows ileus. Keep nothing by mouth IV. GI is following. CT chest shows tiny anterior pneumothorax. More Lethargic today, white count was 21,000 yesterday. Hypotensive systolic blood pressure in 70s. Probable severe sepsis/ septic shock. Start Zosyn and Levaquin and single dose of vancomycin. Check C Diff 12/16: General surgery does not recommend gallbladder drainage at this time. WBC count decreasing on Zosyn vancomycin and micafungin. 17.6 today. F/U KUB in am. GI ID following 12/17: no improvements or changes. still on full vent support. failing SBTs for tachypnea. 12/18: still failing SBTs. still on full vent support. no changes. needs placement. 12/19: Afebrile. Tolerating tube feeds at 20 cc an hour. 4 cc stool. A.m. laboratories pending. 12/20: Afebrile. Awake and alert and interactive. Tolerating tube feeds at 30 cc an hour. Positive BM. 12/21: no changes. slow vent weaning persists. 12/22: no changes. awake, on PSV. afebrile. wbc stable. 12/23: no improvements. still on PSV, slow wean. plan to remove chest tube today. 12/24: no changes or improvements. slow wean on vent. chest tube removed yesterday. 12/25: no changes. tolerated short period of t-piece today, back on vent. SUBJECTIVE: 12/26: on t-piece overnight. can continue t-piece as tolerated. no other acute issues. Objective Vital Signs Date Time Temp Pulse Resp B/P (MAP) Pulse Ox O2 Delivery O2 Flow Rate FiO2 12/26/16 06:00 75 12/26/16 04:12 93 T-piece 6.00 35 12/26/16 04:00 98.3 20 128/66 (86) Intake and Output 12/26/16 12/26/16 12/27/16 08:00 16:00 00:00 Intake Total 492 ml Output Total 1050 ml Balance -558 ml Result Diagram: 12/26/16 0453 12/26/16 0453 Imaging Last Impressions Chest X-Ray 12/20/16 0600 Signed Impressions: Service Date/Time: November 02:58 - CONCLUSION: 1. Cardiomegaly with stable bibasilar densities. 2. Right-sided chest tube without pneumothorax. Javier Ulloa MD Abdomen X-Ray 12/19/16 0000 Signed Impressions: Service Date/Time: Monday, December 19, 2016 07:55 - CONCLUSION: Mildly dilated loops of small and large bowel characteristic of ileus. Fito Joshua MD Abdomen/Pelvis CT 12/15/16 0000 Signed Impressions: Service Date/Time: Thursday, December 15, 2016 10:50 - CONCLUSION: 1. Distended bowel especially the small bowel and the cecum. This is nonspecific. A transition point is not seen. This could relate to ileus. Oral contrast does extend to the rectum. 2. Bibasilar areas of consolidation at the lung bases. There also is a possible small pneumothorax on the right. The patient does have a right chest tube in place. 3. G-tube. 4. Distended gallbladder. 5. Increased soft tissue density in the left lateral abdominal wall which could be from prior trauma or edema. Jayson Soto MD Lower Extremity Ultrasound 12/09/16 0000 Signed Impressions: Service Date/Time: Friday, December 09, 2016 17:13 - CONCLUSION: 1. No evidence of DVT 2. Large complex mass in the pump to fossa characteristic of a hematoma. Joni Barfield MD Cervical Spine MRI 12/03/16 0000 Signed Impressions: Service Date/Time: Saturday, December 03, 2016 13:13 - CONCLUSION: Severely limited exam. I believe there is increased signal in the cervical cord mid C3 to mid C5. Ward Kim MD FACR Brain MRI 12/03/16 0000 Signed Impressions: Service Date/Time: Saturday, December 03, 2016 13:13 - CONCLUSION: 1. There is a small area of abnormal T2 signal in the left frontal cortex this is unchanged from the previous examination dated 11/26/16. This is nonspecific in appearance on the MRI. Differential considerations would be a small area of gliosis versus an old area of contusion. Follow up examination in 6 months to document stability would be warranted. 2. No findings to indicate acute cortical infarction are identified. Román Kim MD Gastrostomy Tube Placement 11/30/16 0000 Signed Impressions: Service Date/Time: Wednesday, November 30, 2016 12:22 - CONCLUSION: Uncomplicated gastrostomy tube placement as above. Jorge Jolly MD Liver Ultrasound 11/09/16 0000 Signed Impressions: Service Date/Time: Wednesday, November 09, 2016 13:58 - CONCLUSION: Sono dense liver without duct dilatation. 4 mm common duct. Ward Kim MD FACR Chest CT 11/06/16 0000 Signed Impressions: Service Date/Time: Sunday, November 06, 2016 11:24 - CONCLUSION: 1. Dense bilateral posterior lower lobe airspace consolidation consistent with aspiration versus less likely pneumonia. 2. Linear consolidation in the right middle lobe consistent with atelectasis versus aspiration. 3. Trace left and small right pleural effusions. 4. Support lines and tubes in good position. 5. Prominent coronary artery calcifications. Nico Vaughan MD Head CT 11/05/16 0000 Signed Impressions: Service Date/Time: Saturday, November 05, 2016 21:43 - CONCLUSION: 1. No acute intracranial abnormalities. Pansinus fluid opacification. Cristofer De Santiago MD Carotid Artery Ultrasound 10/25/16 0000 Signed Impressions: Service Date/Time: September 08:27 - CONCLUSION: Mild to moderate plaque in both carotid systems with less than 40%% diameter stenosis by velocity criteria. Jhonathan Dietz MD CT Angiography 10/25/16 0000 Signed Impressions: Service Date/Time: September 06:12 - CONCLUSION: 1. Negative for pulmonary embolism. 2. There is a fairly large area of masslike consolidation in the medial right lung involving posterior segment right upper lobe and medial aspect of right lower lobe. There is associated right hilar and mediastinal adenopathy measuring up to 2.1 cm. Differential diagnosis includes pneumonia or underlying lung neoplasm. Close followup imaging recommended after treatment for pneumonia, to assess for underlying mass. Cristofer De Santiago MD Objective Remarks GENERAL: 56-year-old male, on t-piece this AM in no acute distress SKIN: Warm and dry. Positive intertrigo HEAD: Atraumatic. Normocephalic. EYES: Pupils equal and round about 3 mm bilaterally and reactive. ENT: No nasal bleeding or discharge. NECK: Trachea midline. No JVD. Tracheostomy site has some yellow secretions surrounding CARDIOVASCULAR: normal rate, regular rhythm. RESPIRATORY: equal chest rise. unlabored. GASTROINTESTINAL: Abdomen soft, obese, distended. PEG tube site is clean dry and intact MUSCULOSKELETAL: Extremities with trace lower extremity. No obvious deformities. NEUROLOGICAL: Eyes are open. Moves fingers and toes. Shrugs shoulders. Squeezes hands. Nods head appropriately to questions. Sensation appears intact A/P Assessment and Plan Neuro/Psych: Metabolic encephalopathy - resolved. CIM/SHEFALI s/p Neuromuscular paralysis for Prone therapy Syncope Depression MRI C-spine showing increased signals C3-C5 region. Dr Riggins reviewed MRI spine- not sure about increased signal in cord, could be cervical hyperextension injury, from intubation according to him. Unable to do flexion- extension films of the C-spine (trached patient). 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 Haloperidol 5mg iv q4h prn for agitation. Escitalopram 10 mg qhs or depression from 12/07/16. MRI brain 11/26: Small focal signal abnormality in the superior medial left frontal lobe. Could be sequela from prior insult such as a contusion or small infarct. No acute infarct MRI brain 12/[address] on admission revealed no acute intracranial findings, CT brain 11/05- no acute findings. opacification of sinuses. EEG 11/20: No seizure activity. EEG 11/09: severe encephalopathy PT/OT for range of motion, up to stretcher chair as tolerated CV: Hypotension-resolved Atrial fib/ flutter with RVR - rate controlled. Hypertension decrease amiodarone to 200mg po daily for maintenance dose. digoxin 0.125 mg po daily. recheck level 01/04 and [id number] as long as stable. PO Diltiazem 90 mg PO q6hr, metoprolol 50mg Q6 Coumadin and heparin 12/10 held due to left popliteal fossa hematoma. Placed on sq heparin for DVT prophylaxis: this has resolved. slowly restart Echo 10/25 EF 60-65%. Repeat echo with bubble study: 11/22: No shunt seen Resp: Acute, now chronic hypoxemic Respiratory failure s/p trach 11/27 Spontaneous Right sided PTX secondary to barotrauma - resolved. COPD exacerbation - resolved. Pneumonia most likely community-acquired - resolved. Obesity hypoventilation syndrome Tobacco use disorder albuterol aerosols every 2 hours PRN. Ventilator bundle tolerating intermittent PSV. Budesonide 0.5 mg/2 mL aerosols twice a day. Prednisone 20 mg daily, will wean to 10mg daily. s/p trach 11/[address] Martin [facility]. Pulmonary/Dr. Wynne has followed s/p 20Fr CT placed for right PTX 11/23, monitor CT drainage. d/c chest tube . CT pulmonary angio revealed no pulmonary embolus. Masslike consolidation in the posterior right upper lobe and medial right lower lobe. Lymphadenopathy to 1 cm right hilum and subcarinal. Atelectasis left lower lobe. Discontinued Prone therapy 11/02/16. slow wean of mechanical ventilation. continue t-piece as tolerated. GI: Ileus - resolved. Morbid Obesity Elevated LFT's- now within normal. PEG tube placement 11/30. US liver: No ductal dilatation tube feeds with vital high-protein currently at 40. increase to 50 cc/hr. Metoclopramide 10 mg every 6 hours, change to PO. No Cholecystostomy tube recommended by Dr. Nguyen. Recommended advance diet as tolerated Famotidine 20 milligrams mg twice a day for GI prophylaxis /renal/FEN: Hyponatremia Hypopotassemia Monitor renal function, I/O's, electrolytes replacement per protocol. Currently on sodium chloride 1 g every 12 hours Endo: Hyperglycemia SSI Q6h with Regular Insulin mild protocol for glycemic control. Previously insulin detemir 62 units twice a day. Restarted 15 units twice a day 12/01. Decreased attenuation units twice daily 12/19 due to hypoglycemia Adequate blood sugar control . Heme: Normocytic anemia Leukocytosis L popliteal fossa hematoma - stable. Monitor CBC, coags- Heparin drip/Coumadin on hold it on low-dose subcutaneous heparin currently: will need to restart anticoagulation. Monitor closely for compartment syndrome ID: Severe sepsis - resolved. HCAP - resolved. Placed back on piperacillin/tazobactam, d/c'd 12/20. Discontinued vancomycin and micafungin by ID, WBC trending down ID Amanda Haas, F/U ríos culture, C Diff- NGTD. ABX completed 12/11. (piperacillin/tazobactam and sulfamethoxazole/ trimethoprim 800/160 2 tablets 3 times a day) Sputum: Klebsiella, Stenotrophomonas and Pseudomonas 11/27 Sputum cx 11/23: Kleb, Pseudomonas, s/p (ceftriaxone and fluconazole course). ID is following-Dr. Patel s/p ceftriaxone 11/02-11/09 for Enterobacter pneumonia. Repeat sputum Klebsiella sensitive to Rocephin 10/29/16-Enterobacter in sputum, 11/06/16, 11/10 sputum- Klebsiella Urine Legionella and pneumococcal antigens negative and influenza negative C-diff PCR is negative observe clinically off abx. trend fever curve. Access RUE PICC placed 11/05 through 11/15 replaced 11/16 with left upper extremity PICC, d/c'd 12/23. Prophylaxis GI, famotidine. DVT - IV heparin gtt, Coumadin DCd 12/10 due to left popliteal hematoma, O Heparin 5000 U q12 sq. will likely need to restart anticoagulation. 11/09 Doppler US LE negative for DVT Palliative care is following Overall impression: very slow progress. now intermittently on t-piece. continue slow wean. Keven Franco MD Dec 26, 2016 07:50
[2016-12-26] MEDS: FAMOTIDINE 20 MG TAB NG SCH ×2 (08:24→20:10)
[2016-12-26] MEDS: AMIODARONE 200 MG TAB OG-TUBE SCH (08:24)
[2016-12-26] MEDS: CHLORHEXIDINE 0.12% (ORAL KIT) 15 ML CUP MT SCH ×2 (08:24→20:10)
[2016-12-26] MEDS: DIGOXIN 0.125 MG TAB PO SCH (08:25)
[2016-12-26] MEDS: LISINOPRIL 10 MG TAB PO SCH (08:25)
[2016-12-26] MEDS: INSULIN DETEMIR 100 UNITS/ML VIAL SQ SCH ×2 (08:25→20:10)
[2016-12-26] MEDS: predniSONE 20 MG TAB PO SCH (08:25)
[2016-12-26] MEDS: SODIUM CHLORIDE 1 GRAM TAB PO SCH ×2 (08:25→20:11)
[2016-12-26] MEDS: ENOXAPARIN SODIUM 40 MG/0.4 ML SYRINGE SQ SCH (08:25)
[2016-12-26] MEDS: ARTIFICIAL TEARS OPTH OINT 3.5 APPLIC/3.5 GM TUBO EACH EYE SCH ×2 (08:28→20:12)
[2016-12-26] MEDS: SODIUM CHLORIDE 0.9% FLUSH 10 ML FLUSH IVF SCH (08:49)
[2016-12-26] MEDS: RESP: ALBUTEROL 2.5 MG/3 ML NEB (PRN) NEB (19:54)
[2016-12-26] MEDS: ESCITALOPRAM OXALATE 10 MG TAB PO SCH (20:10)
[2016-12-27] VITALS (20 sets, daily range): BP systolic 106–138; BP diastolic 61–101; PULSE 63–140; RESP 9–39; TEMP 98.2–99.1; O2SAT 86–97
[2016-12-27] MEDS: DILTIAZEM HCL 90 MG TAB PO SCH ×4 (00:26→17:29)
[2016-12-27] MEDS: METOPROLOL TARTRATE 50 MG TAB PO SCH ×4 (00:26→17:29)
[2016-12-27] MEDS: INSULIN NovoLIN REGULAR SUPPLEMENTAL SCALE SQ SCH ×4 (02:00→20:00)
[2016-12-27] MEDS: CHLORHEXIDINE GLUCONATE 2 % 1 PACK (2 CLOTHS) TOP SCH (04:00)
[2016-12-27] MEDS: METOCLOPRAMIDE HCL SYRUP 10 MG/10 ML UDC PO SCH ×2 (05:41→14:18)
[2016-12-27] MEDS: RESP: BUDESONIDE 0.5 MG/2 ML NEB NEB SCH ×2 (07:18→20:12)
[2016-12-27] MEDS: RESP: ALBUTEROL 2.5 MG/3 ML NEB (PRN) NEB (07:18)
[2016-12-27] MEDS: CHLORHEXIDINE 0.12% (ORAL KIT) 15 ML CUP MT SCH ×2 (07:46→21:58)
[2016-12-27] MEDS: FAMOTIDINE 20 MG TAB NG SCH ×2 (07:46→21:57)
[2016-12-27] MEDS: AMIODARONE 200 MG TAB OG-TUBE SCH (07:46)
[2016-12-27] MEDS: predniSONE 20 MG TAB PO SCH (07:47)
[2016-12-27] MEDS: SODIUM CHLORIDE 1 GRAM TAB PO SCH ×2 (07:47→21:57)
[2016-12-27] MEDS: INSULIN DETEMIR 100 UNITS/ML VIAL SQ SCH ×2 (07:47→21:00)
[2016-12-27] MEDS: DIGOXIN 0.125 MG TAB PO SCH (07:47)
[2016-12-27] MEDS: LISINOPRIL 10 MG TAB PO SCH (07:47)
[2016-12-27 08:45] LABS: APTT (PATIENT) 24.8 SEC (24.3-30.1)
[2016-12-27] MEDS: SODIUM CHLORIDE 0.9% FLUSH 10 ML FLUSH IVF SCH (08:52)
[2016-12-27] MEDS: ARTIFICIAL TEARS OPTH OINT 3.5 APPLIC/3.5 GM TUBO EACH EYE SCH ×2 (08:52→21:59)
[2016-12-27] MEDS: ENOXAPARIN SODIUM 40 MG/0.4 ML SYRINGE SQ SCH (11:29)
--- NOTE | 2016-12-27 13:41 | HHI.CCPN ---
Subjective Remarks/Hospital Course 56-year-old very pleasant gentleman with past medical history of COPD, and hypertension presents complaining of shortness of breath and nausea, generalized fatigue and chills for 2 days. He thinks it has been from being out in the heat. Denies any fever, chest pain, vomiting, abdominal pain, focal weakness or numbness. In the emergency department his saturation was in mid 80s on arrival with auditory wheezing and tachypnea. He was placed on 4 liters of NC and saturating in the low 90. He does not use oxygen at home. He also mentioned 2 days ago, he came home and was sitting in a chair and was taking his shoes off when he passed out. States he woke up and was still on the chair. This has never happen before. 10/25: Patient intubated secondary to increasing oxygen requirements, altered mental status. Discussed with son. Somewhat hypertensive post intubation. 10/26: Placed on rotaprone bed last evening. Flolan initiated. Saturations improved. Afebrile. Remains on Nimbex drip. 10/27: T max 99.7. Tolerated on not prone position 2 hours yesterday. Tolerating trickle feeds. FiO2 down to 55% 10/28: Tmax 99.9. When unprone for chest x-ray this a.m. desaturated. Currently on 90% FiO2. Actually hypertensive. No bowel movements. Remains paralyzed 10/29: Remains intubated sedated on continuous Prone therapy Except for chest x- ray. Fever 100.8. Panculture requested. Zyvox added. Continue IV sedation with propofol and fentanyl and Versed, neuromuscular paralysis with Nimbex 10/30: Prone cycle changed to 8 hr prone, 1 hr supine from 10/29. Due to hypoxia will continue with same cycle today. Chest x-ray remains unchanged. Patient remains severely hypoxemic FiO2 at 75% PEEP at 16. WBC count worsened to 18. Remains neuromuscularly paralyzed. 10/31: Patient remains critically ill but stable. Oxygen saturation 95% on 55 of FiO2 and PEEP of 16. Reduce PEEP to 14, FiO2 to 50% and start weaning Flolan. Increase supine time to 4 hours, reduce Prone time to 6 hours 11/01: Patient remains intubated sedated critically ill on neuromuscular paralysis. FiO2 reduced to 50, I will attempt PEEP wean gradually to 12 today. Prone/supine cycles will be changed to 6 hours each 11/02: FiO2 remains at 50%, PEEP reduced from 14 to 12 today, TV increased to 600 and RR to 20, in anticipation of discontinuing prone therapy, which will be DCd today. Off Flolan for 2 days 11/03: off pronation. fio2 up to 65% , peep 12. agitation causing desaturation. minimal improvements. 11/04: good diuresis yesterday, but despite that, fio2 persists at 65% and spo2 decreasing to 91% today. no real improvements and some worsening of pulmonary function despite ongoing aggressive therapies. still not safe for SBT given hypoxia. also severely hypertensive this morning. 11/05: continues to diurese well and Cr still at baseline. fio2 at 90% however, and no clinical improvements in mental status or hypoxia. still unsafe for SBT given hypoxemia. off pathway. hypertension under much better control. poor neuro status is concerning. 11/06: Remains severely hypoxemic. FiO2 was 100% PEEP 14. I reduce FiO2 to 90% after increasing PEEP to 16. Developed a flutter with RVR overnight, currently on Cardizem drip. Unable to do SBT due to very high settings 11/07: Remains hypoxemic and but able to wean FiO2 down to 80% with PEEP of 16. Remains unresponsive on sedation. Unable to trach due to his high vent settings and high FiO2. Remains on Cardizem and 15 mg per hour, with rate controlled a flutter. We'll start by mouth Cardizem in an attempt to wean IV Cardizem 11/08: Remains critically ill hypoxic but FiO2 now weaned to 60%, PEEP remains at 16. Very heavily sedated no withdrawal to pain. Will hold all continuos sedation. Sputum culture with Klebsiella sensitive to Rocephin. A flutter persistent, will start IV heparin 11/09 Patient is sedated with Diprivan and intubated, On Cardizem drip 15mg/hr for Aflutter. Heparin drip stated yesterday. 11/10 Patient remains sedated and intubated. On Heparin drip. Persistent fever with Tmax 102.5. ETT was replaced yesterday. 11/11 Patient was placed on Cardizem and amio drips overnight for Afib with RVR. Sedated with Diprivan and intubated. On Heparin drip. T;99.3 this morning. 11/12 Patient remains intubated and sedated with Diprivan. On Cardizem drip 15mg/ hr. Afebrile, Tmax 100.6 11/13 Patient is sedate with Diprivan and intubated. In Afib with RVR now on Amio drip. Tmax 100,4 11/14 Remains intubated sedated with propofol and fentanyl. Afib rate controlled , remains on amiodarone and Cardizem gtt. Fio2 remains high at 70%, PEEP 12. CXR persistent bibasilar infiltrates/effusion 11/15: Currently sedated with propofol and fentanyl drips. Currently in A. fib/ flutter on amiodarone drip and Cardizem drip. PEEP increased to 14. FiO2 65. 11/16: Tmax 100.1. Patient more alert and tachycardic this AM. Adding midazolam gtt for sedation and currently tolerating tube feeding. Positive BM. PEEP to 12. FiO2 75% 11/17: Afebrile. FiO2 down to 60%. PEEP set 12. Multiple tracheostomy hopefully on Saturday. Heart rate better control. 11/18: Afebrile. Discontinuing amiodarone drip today and switching to oral. FiO2 between 60 and 70%. Restarting epoprostenol in attempt to get FiO2 down to 50% for tracheostomy tomorrow 11/19 No events overnight. Sedated with Diprivan, Fentanyl and versed. Still requiring high O2 - on PRVC with PEEP;12 and FIO2 70%. Afebrile. 11/20 Patient remains sedated with Diprivan, versed, Fentanyl and intubated. On PRVC with PEEP: 12, FIO2 50% , sats 88-90%. On Heparin drip. 11/21: Tmax 99.4. Tolerating tube feeds. Remains on heparin drip. FiO2 down to 55%. PEEP of 10. Eyes open blinks spontaneously. Does squeeze and weakly on left side with encouragement 11/22: Intubated heavily sedated. FiO2 50%, remains on Flolan. PEEP 10. Bumex 1 mg 1 and Diamox 500 mg 1 IV. She will negative balance. Heparinized tube feeds on hold for tracheostomy today at 12. Remains in atrial flutter 11/23 Patient remains sedated with Diprivan, Fentanyl, Versed and intubated. On Heparin drip. For CT guided thoracentesis today. On APRV 11/24 Patient remains sedated and intubated. 20Fr CT placed yesterday for right sided PTX. Spiked fever with T 101.6. Remains on Heparin drip. 11/25 Patient remains intubated with Diprivan, fentanyl and intubated. On PRVC with PEEP: 10, FIO2 50%. Afebrile. 11/26 Patient is sedated with Diprivan, Fentanyl and intubated. Afebrile. On Heparin drip. On PRVC with PEEP: 10, FIO2 60% 11/27 Patient is scheduled for trach in OR today. Sedated and intubated. Heparin drip is off for trach. 11/28 Patient s/p trach yesterday. Sedated with Diprivan and Fentanyl. Afebrile. On PRVC with PEEP; 10 and FIO2 50% 11/29 No events overnight. Sedated and on ventilator via trach. For PEG tube placement today. Heparin drip on hold. 11/30: Currently afebrile. MAXIMUM TEMPERATURE 100. Positive BM via fecal containing device. Tube feeds on hold secondary to plan PEG tube placement today. Heparin drip on hold as well. 12/01: Status post PEG tube placement yesterday per IR. Heparin drip and tube feeds restarted today. Restarting insulin detemir. Awake and alert and weakly follows commands on sedation 12/02: Tmax 99.3. Tube feeds restarted and tolerating. Awake and alert and weakly follows commands. Plan for MRI brain/C-spine a.m. 12/03. 12/03: Patient is awake. Tolerating PRVC, very weakly wiggling cedric toes. MRI today 12/04/16: Tolerated CPAP with high settings yesterday for several hours 15 over 5. Becomes tachypneic and pressure support wean. MRI of the C-spine shows increased signal, no cord compression. Discussed with Dr. Riggins. He is requesting flexion extension films of C spine. 12/05/16: Desaturated on CPAP today. Now on full vent support with 50% FiO2. Continues to have functional quadriparesis. Dr Riggins reviewed MRI spine- he is not sure about increased signal in cord, but there could be cervical hyperextension injury, from intubation. 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 Cannot do cspine extension/flexion films. Repeat MRI c- spine in a few weeks 12/06/16: Patient remains on vent, placed on CPAP 11/29 now, on 50% FiO2. No improvement in neuro exam patient is awake. Able to minimally shrug shoulders. Continues to behave like functional quadriplegia 12/07/16: Tolerated CPAP approximately 6 hours yesterday but did not tolerate TPs. Having anxiety and some frustration due to neuromuscular weakness. I will add Lexapro. Give Bumex 1 mg x1, CXR shows pleural effusions. 12/08: On 11/29 PS since AM. CBC chest x-ray stable. Lexapro added yesterday for depression. Urine output 3.5 L in 24 hours 12/09: Tolerated CPAP well yesterday tolerated TPs for 2 hours but failed to CPAP today due to hypoxia and tachycardia. Currently on PRVC received metoprolol and fentanyl push with improved heart rate 12/10: Patient is tolerating CPAP today. Left popliteal fossa hematoma, large on left lower extremity ultrasound. Heparin and Coumadin placed on hold will get orthopedic consult 12/11: Slightly improved power of LE, unchanged on upper. L calf remains tense, but pulses are palpable. Holding anticoagulation 12/12: Tolerating CPAP 09/07. Slight improvement in muscle strength. Heparin remains on hold 12/13: Heparin remains on hold. No increase in hematoma clinically. Tolerating CPAP. 12/14: Patient complains of not feeling well today. Wbc count increased to 21, 000. KUB shows ileus. Hold tube feeds, Reglan 10 mg IV every 8 hours, send panculture 12/15: Large amount of output from the PEG tube and intermittent wall suction. Stat CT of the abdomen pelvis did not show any perforation or evidence of colitis. Shows ileus. Keep nothing by mouth IV. GI is following. CT chest shows tiny anterior pneumothorax. More Lethargic today, white count was 21,000 yesterday. Hypotensive systolic blood pressure in 70s. Probable severe sepsis/ septic shock. Start Zosyn and Levaquin and single dose of vancomycin. Check C Diff 12/16: General surgery does not recommend gallbladder drainage at this time. WBC count decreasing on Zosyn vancomycin and micafungin. 17.6 today. F/U KUB in am. GI ID following 12/17: no improvements or changes. still on full vent support. failing SBTs for tachypnea. 12/18: still failing SBTs. still on full vent support. no changes. needs placement. 12/19: Afebrile. Tolerating tube feeds at 20 cc an hour. 4 cc stool. A.m. laboratories pending. 12/20: Afebrile. Awake and alert and interactive. Tolerating tube feeds at 30 cc an hour. Positive BM. 12/21: no changes. slow vent weaning persists. 12/22: no changes. awake, on PSV. afebrile. wbc stable. 12/23: no improvements. still on PSV, slow wean. plan to remove chest tube today. 12/24: no changes or improvements. slow wean on vent. chest tube removed yesterday. 12/25: no changes. tolerated short period of t-piece today, back on vent. 12/26: on t-piece overnight. can continue t-piece as tolerated. no other acute issues. SUBJECTIVE: 12/27: continues on t-piece. no changes. Objective Vital Signs Date Time Temp Pulse Resp B/P (MAP) Pulse Ox O2 Delivery O2 Flow Rate FiO2 12/27/16 10:00 68 12/27/16 09:00 17 128/63 (84) 96 12/27/16 08:00 98.7 12/27/16 07:20 T-piece 45 12/26/16 19:56 5.00 Intake and Output 12/27/16 12/27/16 12/28/16 08:00 16:00 00:00 Intake Total 605 ml Output Total 300 ml Balance 305 ml Result Diagram: 12/26/16 0453 12/26/16 0453 Imaging Last Impressions Chest X-Ray 12/20/16 0600 Signed Impressions: Service Date/Time: November 02:58 - CONCLUSION: 1. Cardiomegaly with stable bibasilar densities. 2. Right-sided chest tube without pneumothorax. Javier Ulloa MD Abdomen X-Ray 12/19/16 0000 Signed Impressions: Service Date/Time: Monday, December 19, 2016 07:55 - CONCLUSION: Mildly dilated loops of small and large bowel characteristic of ileus. Fito Joshua MD Abdomen/Pelvis CT 12/15/16 0000 Signed Impressions: Service Date/Time: Thursday, December 15, 2016 10:50 - CONCLUSION: 1. Distended bowel especially the small bowel and the cecum. This is nonspecific. A transition point is not seen. This could relate to ileus. Oral contrast does extend to the rectum. 2. Bibasilar areas of consolidation at the lung bases. There also is a possible small pneumothorax on the right. The patient does have a right chest tube in place. 3. G-tube. 4. Distended gallbladder. 5. Increased soft tissue density in the left lateral abdominal wall which could be from prior trauma or edema. Jayson Soto MD Lower Extremity Ultrasound 12/09/16 0000 Signed Impressions: Service Date/Time: Friday, December 09, 2016 17:13 - CONCLUSION: 1. No evidence of DVT 2. Large complex mass in the pump to fossa characteristic of a hematoma. Joni Barfield MD Cervical Spine MRI 12/03/16 0000 Signed Impressions: Service Date/Time: Saturday, December 03, 2016 13:13 - CONCLUSION: Severely limited exam. I believe there is increased signal in the cervical cord mid C3 to mid C5. Ward Kim MD FACR Brain MRI 12/03/16 0000 Signed Impressions: Service Date/Time: Saturday, December 03, 2016 13:13 - CONCLUSION: 1. There is a small area of abnormal T2 signal in the left frontal cortex this is unchanged from the previous examination dated 11/26/16. This is nonspecific in appearance on the MRI. Differential considerations would be a small area of gliosis versus an old area of contusion. Follow up examination in 6 months to document stability would be warranted. 2. No findings to indicate acute cortical infarction are identified. Román Kim MD Gastrostomy Tube Placement 11/30/16 0000 Signed Impressions: Service Date/Time: Wednesday, November 30, 2016 12:22 - CONCLUSION: Uncomplicated gastrostomy tube placement as above. Jorge Jolly MD Liver Ultrasound 11/09/16 0000 Signed Impressions: Service Date/Time: Wednesday, November 09, 2016 13:58 - CONCLUSION: Sono dense liver without duct dilatation. 4 mm common duct. Ward Kim MD FACR Chest CT 11/06/16 0000 Signed Impressions: Service Date/Time: Sunday, November 06, 2016 11:24 - CONCLUSION: 1. Dense bilateral posterior lower lobe airspace consolidation consistent with aspiration versus less likely pneumonia. 2. Linear consolidation in the right middle lobe consistent with atelectasis versus aspiration. 3. Trace left and small right pleural effusions. 4. Support lines and tubes in good position. 5. Prominent coronary artery calcifications. Nico Vaughan MD Head CT 11/05/16 0000 Signed Impressions: Service Date/Time: Saturday, November 05, 2016 21:43 - CONCLUSION: 1. No acute intracranial abnormalities. Pansinus fluid opacification. Cristofer De Santiago MD Carotid Artery Ultrasound 10/25/16 0000 Signed Impressions: Service Date/Time: , October 25, 2016 08:27 - CONCLUSION: Mild to moderate plaque in both carotid systems with less than 40%% diameter stenosis by velocity criteria. Jhonathan Dietz MD CT Angiography 10/25/16 0000 Signed Impressions: Service Date/Time: , October 25, 2016 06:12 - CONCLUSION: 1. Negative for pulmonary embolism. 2. There is a fairly large area of masslike consolidation in the medial right lung involving posterior segment right upper lobe and medial aspect of right lower lobe. There is associated right hilar and mediastinal adenopathy measuring up to 2.1 cm. Differential diagnosis includes pneumonia or underlying lung neoplasm. Close followup imaging recommended after treatment for pneumonia, to assess for underlying mass. Cristofer De Santiago MD Objective Remarks GENERAL: 56-year-old male, on t-piece in no acute distress SKIN: Warm and dry. Positive intertrigo HEAD: Atraumatic. Normocephalic. EYES: Pupils equal and round about 3 mm bilaterally and reactive. ENT: No nasal bleeding or discharge. NECK: Trachea midline. No JVD. Tracheostomy site has some yellow secretions surrounding CARDIOVASCULAR: normal rate, regular rhythm. RESPIRATORY: equal chest rise. unlabored. GASTROINTESTINAL: Abdomen soft, obese, distended. PEG tube site is clean dry and intact MUSCULOSKELETAL: Extremities with trace lower extremity. No obvious deformities. NEUROLOGICAL: Eyes are open. Moves fingers and toes. Shrugs shoulders. Squeezes hands. Nods head appropriately to questions. Sensation appears intact A/P Assessment and Plan Neuro/Psych: Metabolic encephalopathy - resolved. CIM/SHEFALI s/p Neuromuscular paralysis for Prone therapy Syncope Depression MRI C-spine showing increased signals C3-C5 region. Dr Riggins reviewed MRI spine- not sure about increased signal in cord, could be cervical hyperextension injury, from intubation according to him. Unable to do flexion- extension films of the C-spine (trached patient). 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 Haloperidol 5mg iv q4h prn for agitation. Escitalopram 10 mg qhs or depression from 12/07/16. MRI brain 11/26: Small focal signal abnormality in the superior medial left frontal lobe. Could be sequela from prior insult such as a contusion or small infarct. No acute infarct MRI brain 12/[address] on admission revealed no acute intracranial findings, CT brain 11/05- no acute findings. opacification of sinuses. EEG 11/20: No seizure activity. EEG 11/09: severe encephalopathy PT/OT for range of motion, up to stretcher chair as tolerated CV: Hypotension-resolved Atrial fib/ flutter with RVR - rate controlled. Hypertension decrease amiodarone to 200mg po daily for maintenance dose. digoxin 0.125 mg po daily. recheck level 01/04 and f14tprp as long as stable. PO Diltiazem 90 mg PO q6hr, metoprolol 50mg Q6 Coumadin and heparin 12/10 held due to left popliteal fossa hematoma. Continue DVT prophylaxis with SQH. given high risk for bleeding complication and low CHADS-VaSC risk, risk/benefit at this time in favor of holding full anticoagulation. Echo 10/25 EF 60-65%. Repeat echo with bubble study: 11/22: No shunt seen Resp: Acute, now chronic hypoxemic Respiratory failure s/p trach 11/27 Spontaneous Right sided PTX secondary to barotrauma - resolved. COPD exacerbation - resolved. Pneumonia most likely community-acquired - resolved. Obesity hypoventilation syndrome Tobacco use disorder albuterol aerosols every 2 hours PRN. Ventilator bundle tolerating intermittent PSV. Budesonide 0.5 mg/2 mL aerosols twice a day. Prednisone 20 mg daily, will wean to 10mg daily. s/p trach 11/[address] Martin #[facility]. Pulmonary/Dr. Wynne has followed s/p 20Fr CT placed for right PTX 11/23, monitor CT drainage. d/c chest tube . CT pulmonary angio revealed no pulmonary embolus. Masslike consolidation in the posterior right upper lobe and medial right lower lobe. Lymphadenopathy to 1 cm right hilum and subcarinal. Atelectasis left lower lobe. Discontinued Prone therapy 11/02/16. slow wean of mechanical ventilation. continue t-piece as tolerated. GI: Ileus - resolved. Morbid Obesity Elevated LFT's- now within normal. PEG tube placement 11/30. US liver: No ductal dilatation tube feeds with vital high-protein currently at 40. increase to 50 cc/hr. Metoclopramide 10 mg every 6 hours, change to PO. No Cholecystostomy tube recommended by Dr. Nguyen. Recommended advance diet as tolerated Famotidine 20 milligrams mg twice a day for GI prophylaxis /renal/FEN: Hyponatremia Hypopotassemia Monitor renal function, I/O's, electrolytes replacement per protocol. Currently on sodium chloride 1 g every 12 hours Endo: Hyperglycemia SSI Q6h with Regular Insulin mild protocol for glycemic control. Previously insulin detemir 62 units twice a day. Restarted 15 units twice a day 12/01. Decreased attenuation units twice daily 12/19 due to hypoglycemia Adequate blood sugar control . Heme: Normocytic anemia - stable. Leukocytosis L popliteal fossa hematoma - stable. Monitor closely for compartment syndrome ID: Severe sepsis - resolved. HCAP - resolved. Placed back on piperacillin/tazobactam, d/c'd 12/20. Discontinued vancomycin and micafungin by ID, WBC trending down ID Amanda Haas, F/U ríos culture, C Diff- NGTD. ABX completed 12/11. (piperacillin/tazobactam and sulfamethoxazole/ trimethoprim 800/160 2 tablets 3 times a day) Sputum: Klebsiella, Stenotrophomonas and Pseudomonas 11/27 Sputum cx 11/23: Kleb, Pseudomonas, s/p (ceftriaxone and fluconazole course). ID is following-Dr. Patel s/p ceftriaxone 11/02-11/09 for Enterobacter pneumonia. Repeat sputum Klebsiella sensitive to Rocephin 10/29/16-Enterobacter in sputum, 11/06/16, 11/10 sputum- Klebsiella Urine Legionella and pneumococcal antigens negative and influenza negative C-diff PCR is negative observe clinically off abx. trend fever curve. Access RUE PICC placed 11/05 through 11/15 replaced 11/16 with left upper extremity PICC, d/c'd 12/23. Prophylaxis GI, famotidine. DVT - IV heparin gtt, Coumadin DCd 12/10 due to left popliteal hematoma, On Heparin 5000 U q12 sq. given bleeding complications with low CHADS- VaSC risk, risk/benefit in favor of holding full anticoagulation. 11/09 Doppler US LE negative for DVT Palliative care is following Overall impression: very slow progress. now on t-piece. continue slow wean. Keven Franco MD Dec 27, 2016 13:41
--- NOTE | 2016-12-27 19:29 | RADRPT ---
EXAM DATE/TIME: 12/27/2016 19:04 [facility] COMPARISON: No previous studies available for comparison. INDICATIONS : Pleural effusion. MEDICAL HISTORY : Hypertension. Hypercholesterolemia. Chronic obstructive pulmonary disease. Dentures. Anticoagulant th erapy. Sleep apnea. Dyspnea. Kidney stones. SURGICAL HISTORY : Circumcision. ENCOUNTER: Initial ACUITY: 2 days PAIN SCORE: Nonresponsive. LOCATION: Right chest. MEASUREMENTS: SKIN TO PARIETAL PLEURA: 1.8 cm SKIN TO MAX SAFE DEPTH: NOT APPLICABLE ESTIMATED FLUID VOLUME: NOT APPLICABLE FLUID COMPOSITION: Inadequate fluid FINDINGS: No marking was performed. Only a small right pleural effusion is present. CONCLUSION: Minimal right pleural effusion and the patient was not marked for thoracentesis. Jhonathan Dietz MD on December 27, 2016 at 19:26 Board Certified Radiologist. This report was verified electronically.
[2016-12-27] MEDS: RESP: ALBUTEROL 2.5 MG/IPRATROPIUM 0.5 MG NEB (SCH) NEB (20:12)
[2016-12-27] MEDS: ESCITALOPRAM OXALATE 10 MG TAB PO SCH (21:57)
[2016-12-28] VITALS (17 sets, daily range): BP systolic 124–142; BP diastolic 62–87; PULSE 66–86; RESP 19–50; TEMP 98.2–98.7; O2SAT 95–100
[2016-12-28] MEDS: INSULIN NovoLIN REGULAR SUPPLEMENTAL SCALE SQ SCH ×4 (02:00→20:00)
[2016-12-28] MEDS: METOPROLOL TARTRATE 50 MG TAB PO SCH ×5 (02:36→23:27)
[2016-12-28] MEDS: METOCLOPRAMIDE HCL SYRUP 10 MG/10 ML UDC PO SCH ×4 (02:36→23:27)
[2016-12-28] MEDS: DILTIAZEM HCL 90 MG TAB PO SCH ×5 (02:36→23:43)
[2016-12-28] MEDS: CHLORHEXIDINE GLUCONATE 2 % 1 PACK (2 CLOTHS) TOP SCH (04:00)
[2016-12-28 06:09] LABS: APTT (PATIENT) 22.9 SEC (24.3-30.1)
--- NOTE | 2016-12-28 06:12 | MB ---
cc: JAMAR HAILE DATE OF CONSULTATION 12/27/2016 REASON FOR CONSULTATION Respiratory failure and tracheostomy. HISTORY OF PRESENT ILLNESS This is a 56-year-old obese white male with a past history of COPD, hypertension and history for respiratory failure. He was admitted 8 weeks ago with respiratory distress and generalized fatigue, chills and complaints of leg edema. The patient was in acute respiratory failure at the time and had to be intubated due to severe hypoxemia and altered mental status. He was hypertensive and was placed on ventilator support and had to be placed on a Rotabed and was kept sedated. His O2 saturation did improve after being in the prone position and his chest x-ray showed evidence of bilateral pulmonary infiltrates with basilar effusions. He also had a CT scan of the chest following admission which showed lower lobe air space consolidation with suggestion of pneumonia and/or atelectasis with possible aspiration as well as a right pleural effusion. He was treated with antibiotic therapy and had been on bronchodilator therapy every 6 hours. His initial oxygen requirements were high but over the next several days the oxygenation improved and the patient was on high PEEP which was later gradually reduced over a period of 2 weeks. The patient was in atrial flutter fibrillation for which he had to be treated with a Cardizem drip. The chest x-rays continued to show basilar infiltrates and atelectasis. For the next 2 weeks his condition fluctuated with hypoxemia and increased atelectasis. He had been on 70% FIO2 and PEEP of 12 on 11/14/2016 and the patient remained on Diprivan drip for sedation and was also on amiodarone for his atrial arrhythmias. Fentanyl was also added. The patient then underwent a tracheostomy due to prolonged mechanical ventilator support and following that further attempts at weaning the ventilator were successful and the patient was gradually weaned off the ventilator over the next two weeks. He also was noted to be septic and there was a suspicion of cholecystitis for which no gallbladder drainage was recommended. He was subsequently weaned to a T-bar on 12/23 and he also had a chest tube inserted for a spontaneous pneumothorax possibly due to barotrauma and the chest tube was discontinued on 12/23. Over the past three days the patient has been on a T-bar, off the ventilator and FIO2 of 30% and his condition did stabilize. He was alert and cooperative and has been fairly comfortable on a T-bar but earlier today his O2 requirements again increased and he is now on up to 45% FIO2. The patient's chest x-ray has not been done over the past two days but the last chest x-ray again showed a right lower lobe infiltrate with pleural effusion with low lung volumes. The patient is alert and mildly tachypneic and denies any chest or abdominal pains. Heart rate is controlled with a rate of around 85-90 but in atrial flutter fibrillation. The patient is also mildly hypertensive. He does have some weakness of his lower extremities and some leg edema and the patient's chest x-ray shows no evidence of pneumothorax. During the course of his hospitalization, over the past 6 weeks, the patient also was noted to be anemic and hyperglycemic and hypokalemic and most of these have resolved but his tracheal culture had shown multiple gram-negative bacteria resistant to multiple drugs and the bacteria included Klebsiella, Pseudomonas, Enterobacter. Antibiotic therapy has had been instituted by Infectious Disease service and presently is off antibiotics but he is on heparin for anticoagulation. ALLERGIES No known drug allergies. SURGICAL HISTORY None. FAMILY HISTORY Noncontributory. HABITS The patient smoked one to two packs per day for over 35 years and no significant alcohol use. REVIEW OF SYSTEMS Unable to obtain due to the patient having a tracheostomy and he is unable to communicate well. PHYSICAL EXAMINATION GENERAL: Obese middle-aged white male who is a awake. Face is phethoric. He has edema 2+ of the extremities. VITAL SIGNS: Blood pressure 130/70, pulse is 90, respirations are 18, temperature 98. HEENT: Head normocephalic. Pupils are reactive. Sclerae are injected. He has no inflammation. NECK: Supple. No bruits or thyroid enlargement. Mild venous distension. CHEST: Equal movements with diminished breath sounds at the bases, more so on the right side. HEART: The heart sounds are irregular. S1 and S2 with no definite murmur. ABDOMEN: Obese, protuberant. No masses, no organomegaly. EXTREMITIES: Mild edema. Decreased peripheral pulses. Reflexes 1+. The patient has some weakness of his lower extremities. SKIN: Dry and scaly. RECTAL: Exam is deferred. IMPRESSION 1. Resolving respiratory failure. 2. Basilar pneumonia and hypoxemia. 3. COPD and chronic bronchitis. 4. Possible obstructive sleep apnea syndrome. 5. Hypertension. 6. Atrial fibrillation and CHF. 7. Severe sepsis, resolved. PLAN 1. The patient will be placed on a T-bar at 40%. 2. We will also place him on BiPap at night 5/15 and 35% FIO2. 3. Blood gas studies need to be done as well as nebulized DuoNeb solution added q.6 hours. 4. Culture from tracheal aspirate to be done and antibiotic therapy will be added if he has any recurrence of pneumonia. 5. Chest x-ray to be done today. 6. Frequent tracheal suctioning and lavage to be done. 7. Physical therapy started to get him out of bed. 8. If he is still having trouble moving his extremities, repeat neurologic evaluation to be done. Thank you, Dr. Harshad Franco, for this consultation. Jamar Haile MD JVD/ISMAEL /11:14 PM /5:52 AM
[2016-12-28 06:26] LABS: GLOMERULAR FILTRATION RATE 690 ML/MIN (>89)
[2016-12-28] MEDS: CHLORHEXIDINE 0.12% (ORAL KIT) 15 ML CUP MT SCH ×2 (08:00→23:30)
[2016-12-28] MEDS: RESP: BUDESONIDE 0.5 MG/2 ML NEB NEB SCH ×2 (08:13→19:46)
[2016-12-28] MEDS: RESP: ALBUTEROL 2.5 MG/IPRATROPIUM 0.5 MG NEB (SCH) NEB ×3 (08:13→19:46)
[2016-12-28] MEDS: ENOXAPARIN SODIUM 40 MG/0.4 ML SYRINGE SQ SCH (09:00)
[2016-12-28] MEDS: SODIUM CHLORIDE 0.9% FLUSH 10 ML FLUSH IVF SCH (09:00)
[2016-12-28] MEDS: FAMOTIDINE 20 MG TAB NG SCH ×2 (09:00→23:27)
[2016-12-28] MEDS: LISINOPRIL 10 MG TAB PO SCH (09:00)
[2016-12-28] MEDS: ARTIFICIAL TEARS OPTH OINT 3.5 APPLIC/3.5 GM TUBO EACH EYE SCH ×2 (09:00→23:28)
[2016-12-28] MEDS: DIGOXIN 0.125 MG TAB PO SCH (09:00)
[2016-12-28] MEDS: predniSONE 20 MG TAB PO SCH (09:00)
[2016-12-28] MEDS: INSULIN DETEMIR 100 UNITS/ML VIAL SQ SCH ×2 (09:00→21:00)
[2016-12-28] MEDS: SODIUM CHLORIDE 1 GRAM TAB PO SCH ×2 (09:00→23:27)
[2016-12-28] MEDS: AMIODARONE 200 MG TAB OG-TUBE SCH (09:01)
--- NOTE | 2016-12-28 09:14 | HHI.PR ---
Objective Vitals Vital Signs Date Time Temp Pulse Resp B/P (MAP) Pulse Ox O2 Delivery O2 Flow Rate FiO2 12/28/16 08:14 95 BiPAP 40 12/28/16 08:14 95 40 12/28/16 08:00 98.7 72 19 132/68 (89) 99 12/28/16 08:00 71 12/28/16 06:00 71 12/28/16 04:34 96 40 12/28/16 04:00 66 12/28/16 04:00 98.7 72 19 133/76 (95) 99 12/28/16 02:00 84 12/28/16 00:16 96 40 12/28/16 00:00 77 12/28/16 00:00 98.2 69 50 124/62 (82) 96 12/27/16 22:00 65 12/27/16 20:42 95 45 12/27/16 20:00 67 12/27/16 20:00 98.4 63 24 124/62 (82) 94 12/27/16 19:00 92 T-Piece 50 Humidified 12/27/16 18:00 140 23 106/87 (93) 96 12/27/16 18:00 67 12/27/16 17:00 73 12/27/16 17:00 135 9 127/101 (110) 95 12/27/16 16:00 98.6 69 22 125/67 (86) 91 12/27/16 16:00 69 12/27/16 15:00 74 12/27/16 15:00 74 25 131/67 (88) 86 12/27/16 14:00 65 12/27/16 14:00 65 22 116/62 (80) 93 12/27/16 13:00 64 22 114/61 (78) 96 12/27/16 12:00 71 12/27/16 12:00 98.9 71 20 126/62 (83) 94 12/27/16 11:00 72 19 127/66 (86) 95 12/27/16 10:00 68 17 136/75 (95) 97 12/27/16 10:00 68 I/O 12/27/16 12/27/16 12/27/16 12/28/16 12/28/16 12/28/16 07:00 15:00 23:00 07:00 15:00 23:00 Intake Total 605 ml 751 ml 1041 ml Output Total 300 ml 950 ml 1100 ml Balance 305 ml -199 ml -59 ml Tube Feeding 545 ml 551 ml 641 ml Tube Irrigant 60 ml Other 200 ml 400 ml Output Urine Total 300 ml 950 ml 1000 ml Stool Total 0 ml 100 ml Result Diagram: 12/26/16 0453 12/28/16 0354 Heike Yanes MD Dec 28, 2016 09:14
--- NOTE | 2016-12-28 12:05 | HHI.PR ---
Subjective Remarks Alert and breathing better. On BiPAP 12/5 CM, FIO2 40 % .Good output. Objective Vital Signs Date Time Temp Pulse Resp B/P (MAP) Pulse Ox O2 Delivery O2 Flow Rate FiO2 12/28/16 10:00 71 12/28/16 08:14 95 BiPAP 40 12/28/16 08:14 95 40 12/28/16 08:00 98.7 72 19 132/68 (89) 99 12/28/16 08:00 71 12/28/16 07:00 92 T-Piece 40 Humidified 12/28/16 06:00 71 12/28/16 04:34 96 40 12/28/16 04:00 66 12/28/16 04:00 98.7 72 19 133/76 (95) 99 12/28/16 02:00 84 12/28/16 00:16 96 40 12/28/16 00:00 77 12/28/16 00:00 98.2 69 50 124/62 (82) 96 12/27/16 22:00 65 12/27/16 20:42 95 45 12/27/16 20:00 67 12/27/16 20:00 98.4 63 24 124/62 (82) 94 12/27/16 19:00 92 T-Piece 50 Humidified 12/27/16 18:00 140 23 106/87 (93) 96 12/27/16 18:00 67 12/27/16 17:00 73 12/27/16 17:00 135 9 127/101 (110) 95 12/27/16 16:00 98.6 69 22 125/67 (86) 91 12/27/16 16:00 69 12/27/16 15:00 74 12/27/16 15:00 74 25 131/67 (88) 86 12/27/16 14:00 65 12/27/16 14:00 65 22 116/62 (80) 93 12/27/16 13:00 64 22 114/61 (78) 96 12/27/16 12:00 71 12/27/16 12:00 98.9 71 20 126/62 (83) 94 I/O 12/27/16 12/27/16 12/27/16 12/28/16 12/28/16 12/28/16 07:00 15:00 23:00 07:00 15:00 23:00 Intake Total 605 ml 751 ml 1041 ml Output Total 300 ml 950 ml 1100 ml Balance 305 ml -199 ml -59 ml Tube Feeding 545 ml 551 ml 641 ml Tube Irrigant 60 ml Other 200 ml 400 ml Output Urine Total 300 ml 950 ml 1000 ml Stool Total 0 ml 100 ml Result Diagram: 12/26/16 0453 12/28/16 0354 Objective Remarks GENERAL: Obese middle-aged white male who is a awake. Face is plethoric. He has edema 2+ of the extremities. HEENT: Head normocephalic. Pupils are reactive. Sclerae are injected. He has no inflammation. NECK: Supple. No bruits or thyroid enlargement. Mild venous distension. CHEST: Equal movements with diminished breath sounds at the bases, more so on the right side. HEART: The heart sounds are irregular. S1 and S2 with no definite murmur. ABDOMEN: Obese, protuberant. No masses, no organomegaly. EXTREMITIES: Mild edema. Decreased peripheral pulses. Reflexes 1+. The patient has some weakness of his lower extremities. SKIN: Dry and scaly. RECTAL: Exam is deferred. Assessment and Plan Assessment and Plan IMPRESSION 1. Resolving respiratory failure. 2. Basilar pneumonia and hypoxemia. 3. COPD and chronic bronchitis. 4. Possible obstructive sleep apnea syndrome. 5. Hypertension. 6. Atrial fibrillation and CHF. 7. Severe sepsis, resolved. Plan : 1. Leave on BIPAP 12/5 CM FIO2 35 %. 2. Continue Diuretic. 3. Prednisone 10 mg daily. 4. CXR,BMP in am. 5. PT Evaluation. 6. Joey nobles. Laura Haile MD Dec 28, 2016 12:05
--- NOTE | 2016-12-28 15:41 | HHI.PR ---
Subjective Remarks Patient is in bed, answering questions. says he is not sob at this time. he has at times secretions, but breathing well on T piece, No fever or chills. Scattered cough. No n/v/dc. Objective Vitals Vital Signs Date Time Temp Pulse Resp B/P (MAP) Pulse Ox O2 Delivery O2 Flow Rate FiO2 12/28/16 14:00 71 12/28/16 13:04 100 40 12/28/16 12:00 71 12/28/16 12:00 98.7 78 19 135/69 (91) 99 12/28/16 10:00 71 12/28/16 08:14 95 BiPAP 40 12/28/16 08:14 95 40 12/28/16 08:00 98.7 72 19 132/68 (89) 99 12/28/16 08:00 71 12/28/16 07:00 92 T-Piece 40 Humidified 12/28/16 06:00 71 12/28/16 04:34 96 40 12/28/16 04:00 66 12/28/16 04:00 98.7 72 19 133/76 (95) 99 12/28/16 02:00 84 12/28/16 00:16 96 40 12/28/16 00:00 77 12/28/16 00:00 98.2 69 50 124/62 (82) 96 12/27/16 22:00 65 12/27/16 20:42 95 45 12/27/16 20:00 67 12/27/16 20:00 98.4 63 24 124/62 (82) 94 12/27/16 19:00 92 T-Piece 50 Humidified 12/27/16 18:00 140 23 106/87 (93) 96 12/27/16 18:00 67 12/27/16 17:00 73 12/27/16 17:00 135 9 127/101 (110) 95 12/27/16 16:00 98.6 69 22 125/67 (86) 91 12/27/16 16:00 69 I/O 12/27/16 12/27/16 12/27/16 12/28/16 12/28/16 12/28/16 07:00 15:00 23:00 07:00 15:00 23:00 Intake Total 605 ml 751 ml 1041 ml Output Total 300 ml 950 ml 1100 ml Balance 305 ml -199 ml -59 ml Tube Feeding 545 ml 551 ml 641 ml Tube Irrigant 60 ml Other 200 ml 400 ml Output Urine Total 300 ml 950 ml 1000 ml Stool Total 0 ml 100 ml Result Diagram: 12/26/16 0453 12/28/16 0354 Imaging Last Impressions Chest Ultrasound 12/27/16 0000 Signed Impressions: Service Date/Time: December 19:04 - CONCLUSION: Minimal right pleural effusion and the patient was not marked for thoracentesis. Jhonathan Dietz MD Chest X-Ray 12/23/16 0600 Signed Impressions: Service Date/Time: Friday, December 23, 2016 02:25 - CONCLUSION: Worsening consolidation and pleural effusion at the right base. Right chest she remains in place. No pneumothorax seen. Jayson Taylor MD Abdomen X-Ray 12/19/16 0000 Signed Impressions: Service Date/Time: Monday, December 19, 2016 07:55 - CONCLUSION: Mildly dilated loops of small and large bowel characteristic of ileus. Fito Joshua MD Abdomen/Pelvis CT 12/15/16 0000 Signed Impressions: Service Date/Time: Thursday, December 15, 2016 10:50 - CONCLUSION: 1. Distended bowel especially the small bowel and the cecum. This is nonspecific. A transition point is not seen. This could relate to ileus. Oral contrast does extend to the rectum. 2. Bibasilar areas of consolidation at the lung bases. There also is a possible small pneumothorax on the right. The patient does have a right chest tube in place. 3. G-tube. 4. Distended gallbladder. 5. Increased soft tissue density in the left lateral abdominal wall which could be from prior trauma or edema. Jayson Soto MD Lower Extremity Ultrasound 12/09/16 0000 Signed Impressions: Service Date/Time: Friday, December 09, 2016 17:13 - CONCLUSION: 1. No evidence of DVT 2. Large complex mass in the pump to fossa characteristic of a hematoma. Joni Barfield MD Cervical Spine MRI 12/03/16 0000 Signed Impressions: Service Date/Time: Saturday, December 03, 2016 13:13 - CONCLUSION: Severely limited exam. I believe there is increased signal in the cervical cord mid C3 to mid C5. Ward Kim MD FACR Brain MRI 12/03/16 0000 Signed Impressions: Service Date/Time: Saturday, December 03, 2016 13:13 - CONCLUSION: 1. There is a small area of abnormal T2 signal in the left frontal cortex this is unchanged from the previous examination dated 11/26/16. This is nonspecific in appearance on the MRI. Differential considerations would be a small area of gliosis versus an old area of contusion. Follow up examination in 6 months to document stability would be warranted. 2. No findings to indicate acute cortical infarction are identified. Román Kim MD Gastrostomy Tube Placement 11/30/16 0000 Signed Impressions: Service Date/Time: Wednesday, November 30, 2016 12:22 - CONCLUSION: Uncomplicated gastrostomy tube placement as above. Jorge Jolly MD Liver Ultrasound 11/09/16 0000 Signed Impressions: Service Date/Time: Wednesday, November 09, 2016 13:58 - CONCLUSION: Sono dense liver without duct dilatation. 4 mm common duct. Ward Kim [facility] 11/06/16 0000 Signed Impressions: Service Date/Time: Sunday, November 06, 2016 11:24 - CONCLUSION: 1. Dense bilateral posterior lower lobe airspace consolidation consistent with aspiration versus less likely pneumonia. 2. Linear consolidation in the right middle lobe consistent with atelectasis versus aspiration. 3. Trace left and small right pleural effusions. 4. Support lines and tubes in good position. 5. Prominent coronary artery calcifications. Nico Vaughan MD Head CT 11/05/16 0000 Signed Impressions: Service Date/Time: Saturday, November 05, 2016 21:43 - CONCLUSION: 1. No acute intracranial abnormalities. Pansinus fluid opacification. Cristofer De Santiago MD Carotid Artery Ultrasound 10/25/16 0000 Signed Impressions: Service Date/Time: September 08:27 - CONCLUSION: Mild to moderate plaque in both carotid systems with less than 40%% diameter stenosis by velocity criteria. Jhonathan Dietz MD CT Angiography 10/25/16 0000 Signed Impressions: Service Date/Time: September 06:12 - CONCLUSION: 1. Negative for pulmonary embolism. 2. There is a fairly large area of masslike consolidation in the medial right lung involving posterior segment right upper lobe and medial aspect of right lower lobe. There is associated right hilar and mediastinal adenopathy measuring up to 2.1 cm. Differential diagnosis includes pneumonia or underlying lung neoplasm. Close followup imaging recommended after treatment for pneumonia, to assess for underlying mass. Cristofer De Santiago MD Objective Remarks GENERAL: 56-year-old male, on t-piece in no acute distress SKIN: Warm and dry. Positive intertrigo HEAD: Atraumatic. Normocephalic. EYES: Pupils equal and round about 3 mm bilaterally and reactive. ENT: No nasal bleeding or discharge. NECK: Trachea midline. No JVD. Tracheostomy site has some yellow secretions surrounding CARDIOVASCULAR: normal rate, regular rhythm. RESPIRATORY: equal chest rise. unlabored. GASTROINTESTINAL: Abdomen soft, obese, distended. PEG tube site is clean dry and intact MUSCULOSKELETAL: Extremities with trace lower extremity. No obvious deformities. NEUROLOGICAL: Eyes are open. Moves fingers and toes. Shrugs shoulders. Squeezes hands. Nods head appropriately to questions. Sensation appears intact A/P Assessment and Plan Neuro/Psych: Metabolic encephalopathy - resolved. CIM/SHEFALI s/p Neuromuscular paralysis for Prone therapy Syncope Depression MRI C-spine showing increased signals C3-C5 region. Dr Riggins reviewed MRI spine- not sure about increased signal in cord, could be cervical hyperextension injury, from intubation according to him. Unable to do flexion- extension films of the C-spine (trached patient). 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 Haloperidol 5mg iv q4h prn for agitation. Escitalopram 10 mg qhs or depression from 12/07/16. MRI brain 11/26: Small focal signal abnormality in the superior medial left frontal lobe. Could be sequela from prior insult such as a contusion or small infarct. No acute infarct MRI brain 12/[address] on admission revealed no acute intracranial findings, CT brain 11/05- no acute findings. opacification of sinuses. EEG 11/20: No seizure activity. EEG 11/09: severe encephalopathy PT/OT for range of motion, up to stretcher chair as tolerated CV: Hypotension-resolved Atrial fib/ flutter with RVR - rate controlled. Hypertension decrease amiodarone to 200mg po daily for maintenance dose. digoxin 0.125 mg po daily. recheck level 01/04 and [id number] as long as stable. PO Diltiazem 90 mg PO q6hr, metoprolol 50mg Q6 Coumadin and heparin 12/10 held due to left popliteal fossa hematoma. Continue DVT prophylaxis with SQH. given high risk for bleeding complication and low CHADS-VaSC risk, risk/benefit at this time in favor of holding full anticoagulation. Echo 10/25 EF 60-65%. Repeat echo with bubble study: 11/22: No shunt seen Resp: Acute, now chronic hypoxemic Respiratory failure s/p trach 11/27 Spontaneous Right sided PTX secondary to barotrauma - resolved. COPD exacerbation - resolved. Pneumonia most likely community-acquired - resolved. Obesity hypoventilation syndrome Tobacco use disorder albuterol aerosols every 2 hours PRN. Ventilator bundle tolerating intermittent PSV. Budesonide 0.5 mg/2 mL aerosols twice a day. Prednisone 20 mg daily, will wean to 10mg daily. s/p trach 11/[address] Martin #[facility]. Pulmonary/Dr. Wynne has followed s/p 20Fr CT placed for right PTX 11/23, monitor CT drainage. d/c chest tube . CT pulmonary angio revealed no pulmonary embolus. Masslike consolidation in the posterior right upper lobe and medial right lower lobe. Lymphadenopathy to 1 cm right hilum and subcarinal. Atelectasis left lower lobe. Discontinued Prone therapy 11/02/16. slow wean of mechanical ventilation. continue t-piece as tolerated. GI: Ileus - resolved. Morbid Obesity Elevated LFT's- now within normal. PEG tube placement 11/30. US liver: No ductal dilatation tube feeds with vital high-protein currently at 40. increase to 50 cc/hr. Metoclopramide 10 mg every 6 hours, change to PO. No Cholecystostomy tube recommended by Dr. Nguyen. Recommended advance diet as tolerated Famotidine 20 milligrams mg twice a day for GI prophylaxis /renal/FEN: Hyponatremia Hypopotassemia Monitor renal function, I/O's, electrolytes replacement per protocol. Currently on sodium chloride 1 g every 12 hours Endo: Hyperglycemia SSI Q6h with Regular Insulin mild protocol for glycemic control. Previously insulin detemir 62 units twice a day. Restarted 15 units twice a day 12/01. Decreased attenuation units twice daily 12/19 due to hypoglycemia Adequate blood sugar control . Heme: Normocytic anemia - stable. Leukocytosis L popliteal fossa hematoma - stable. Monitor closely for compartment syndrome ID: Severe sepsis - resolved. HCAP - resolved. Placed back on piperacillin/tazobactam, d/c'd 12/20. Discontinued vancomycin and micafungin by ID, WBC trending down ID Amanda Haas, F/U ríos culture, C Diff- NGTD. ABX completed 12/11. (piperacillin/tazobactam and sulfamethoxazole/ trimethoprim 800/160 2 tablets 3 times a day) Sputum: Klebsiella, Stenotrophomonas and Pseudomonas 11/27 Sputum cx 11/23: Kleb, Pseudomonas, s/p (ceftriaxone and fluconazole course). ID is following-Dr. Patel s/p ceftriaxone 11/02-11/09 for Enterobacter pneumonia. Repeat sputum Klebsiella sensitive to Rocephin 10/29/16-Enterobacter in sputum, 11/06/16, 11/10 sputum- Klebsiella Urine Legionella and pneumococcal antigens negative and influenza negative C-diff PCR is negative Observe clinically off abx. Trend fever curve. Access RUE PICC placed 11/05 through 11/15 replaced 11/16 with left upper extremity PICC, d/c'd 12/23. Prophylaxis GI, famotidine. DVT - IV heparin gtt, Coumadin DCd 12/10 due to left popliteal hematoma, On Heparin 5000 U q12 sq. given bleeding complications with low CHADS- VaSC risk, risk/benefit in favor of holding full anticoagulation. 11/09 Doppler US LE negative for DVT Palliative care is following Patient with slow progression. On T-piece. Pulmonary following. Heike Yanes MD Dec 28, 2016 15:41
[2016-12-28] MEDS ORDERED: LOPERAMIDE HCL SOLN 2 MG/10 ML UDC PO PRN (15:45)
--- NOTE | 2016-12-28 15:58 | HHI.HCPN ---
Reason for visit a. To assist with evaluation and management of symptoms including: pain, dyspnea, encephalopathy. b. To assist medical decision maker(s) with: better understanding of current medical conditions; weighing benefits/burdens of medical treatment options; making medical treatment decisions. . Subjective/Interval History Patient seen and examined in ICU. patient resting in bed in no acute distress. Awake, alert x self, place and situation. On Bipap via tracheostomy, communicating by mouthing words and nodding head to "yes/no" questions. Patient endorsing feeling weak and tired. Denies pain/ N/V or abdominal discomfort. Clinical course complicated by persistent respiratory failure, increased oxygen requirement. Pulmonology, Dr. Haile consulted on 12/27/16. During the previous 3 days, patient tolerating T-bar with FiO2 of 30%, presented with increased O2 needs requiring 45%. Plan for BiPAP at night, now requiring BiPAP during the day. Most recent chest x-ray 12/23/16 revealed worsening consolidation and pleural effusion at the right base. Chest ultrasound 12/27/16 with minimal right pleural effusion, no thoracentesis indicated. Sputum culture 12/27/16 positive for gram-negative rods. ID following. Most recent laboratory 12/26/16 revealing WBC 16.1, Hgb 10.1, platelet count 498. Patient remains afebrile, stable hemodynamically. Currently on BiPAP, 40% FiO2. Oxygen saturation in the high 90s. No family at bedside during my visit. Reviewed with patient current medical management. Patient tells me that he feels frustrated with his slow progress, reviewed that he will likely required a longer recovery time given his debilitated condition and chronic underlying comorbidities. Patient reports that he is looking forward to rehabilitate to get stronger. He wishes to continue aggressive management to include full code/return to ventilator support if required. Patient reports that all of his 3 children have been in contact, almas Juan visits often. Ongoing emotional support provided. Patient appreciative of visit today. Telephone call to patient's son Drake, left message in voicemail. . Family/friend interactions No family at bedside. . Advance Directives Living Will: Never completed Health Care Surrogate: Never completed Durable Power of Machine Hand: Never completed Advance Directive Specifics Health Care Surrogate(s): Patient appears to be regaining medical decision-making capacity. Patient is single. Has 1 son (Drake Andrews) and 2 daughters (Ira Mcgovern and Krystyna Palma). According to [place] statutes, health care proxy decision-making would fall to the majority of adult children. Krystyna Roth and Drake wish to participate. . Significant change in goals: Goals of therapy remain unchanged. . Objective Vital Signs Date Time Temp Pulse Resp B/P (MAP) Pulse Ox O2 Delivery O2 Flow Rate FiO2 12/28/16 14:00 71 12/28/16 13:04 100 40 12/28/16 12:00 71 12/28/16 12:00 98.7 78 19 135/69 (91) 99 12/28/16 10:00 71 12/28/16 08:14 95 BiPAP 40 12/28/16 08:14 95 40 12/28/16 08:00 98.7 72 19 132/68 (89) 99 12/28/16 08:00 71 12/28/16 07:00 92 T-Piece 40 Humidified 12/28/16 06:00 71 12/28/16 04:34 96 40 12/28/16 04:00 66 12/28/16 04:00 98.7 72 19 133/76 (95) 99 12/28/16 02:00 84 12/28/16 00:16 96 40 12/28/16 00:00 77 12/28/16 00:00 98.2 69 50 124/62 (82) 96 12/27/16 22:00 65 12/27/16 20:42 95 45 12/27/16 20:00 67 12/27/16 20:00 98.4 63 24 124/62 (82) 94 12/27/16 19:00 92 T-Piece 50 Humidified 12/27/16 18:00 140 23 106/87 (93) 96 12/27/16 18:00 67 12/27/16 17:00 73 12/27/16 17:00 135 9 127/101 (110) 95 12/27/16 16:00 98.6 69 22 125/67 (86) 91 12/27/16 16:00 69 Intake & Output 12/28/16 12/28/16 07:00 19:00 Intake Total 1041 ml Output Total 1100 ml Balance -59 ml Tube Feeding 641 ml Other 400 ml Output Urine Total 1000 ml Stool Total 100 ml Physical Exam CONSTITUTIONAL/GENERAL: This is an overweight male resting in bed in no acute distress. On BiPAP via tracheostomy. TUBES/LINES/DRAINS: tracheostomy, PEG, Santiago catheter, rectal tube. SCDs. SKIN: Ecchymoses on upper extremities. Abrasion/ scab on right knee. EYES: eyes open, tracking. No discharge noted. CARDIOVASCULAR: Regular rate and rhythm. No murmur. Edema to bilateral lower extremities. RESPIRATORY/CHEST: On BiPAP via tracheostomy. Breath sounds coarse with expiratory crackles, right > left. GASTROINTESTINAL: Abdomen obese, large, round. Bowel sounds present. Tolerating tube feeding. PEG tube to midabdomen. GENITOURINARY: Without palpable bladder distension. Catheter in place. MUSCULOSKELETAL: Extremities with 2+ edema. NEUROLOGICAL: Eyes open, tracking, alert to self x place and situation. Mouthing words to communicate. Following simple commands. Weak hand grasp bilaterally, right side stronger than left. Able to move right arm to command. Slightly moving bilateral lower extremities. PSYCHIATRIC: Awake, calm. . Diagnostic Tests Laboratory Laboratory Tests Test 12/26/16 04:53 12/27/16 07:56 12/28/16 03:54 White Blood Count 16.1 TH/MM3 (4.0-11.0) Red Blood Count 3.30 MIL/MM3 (4.50-5.90) Hemoglobin 10.1 GM/DL (13.0-17.0) Hematocrit 30.7 % (39.0-51.0) Mean Corpuscular Volume 93.1 FL (80.0-100.0) Mean Corpuscular Hemoglobin 30.6 PG (27.0-34.0) Mean Corpuscular Hemoglobin Concent 32.8 % (32.0-36.0) Red Cell Distribution Width 15.7 % (11.6-17.2) Platelet Count 498 TH/MM3 (150-450) Mean Platelet Volume 6.8 FL (7.0-11.0) Activated Partial Thromboplast Time 25.1 SEC (24.3-30.1) 24.8 SEC (24.3-30.1) 22.9 SEC (24.3-30.1) Creatinine LESS THAN 0.15 MG/DL LESS THAN 0.15 MG/DL Estimat Glomerular Filtration Rate 690 ML/MIN (>89) 690 ML/MIN (>89) Result Diagram: 12/26/16 0453 12/28/16 0354 Microbiology Microbiology Date/Time Source Procedure Growth Status 12/27/16 18:15 Sputum Endotracheal Gram Stain - Final Resulted 12/27/16 18:15 Sputum Culture - Preliminary Gram Negative Louis Resulted Imaging Last 48 hours Impressions Chest Ultrasound 12/27/16 0000 Signed Impressions: Service Date/Time: December 19:04 - CONCLUSION: Minimal right pleural effusion and the patient was not marked for thoracentesis. Jhonathan Dietz MD Procedures * 11/30/16 - PEG tube placement * 11/27/16 - tracheostomy * 11/23/16 - right chest tube placement. * 11/10/16 - ETT replaced. * 11/04/16 - arterial line placement. * 10/25/16 - Intubation and central line placed. . Assessment and Plan Disease Oriented Problem List: (1) Acute respiratory failure (2) ARDS (adult respiratory distress syndrome) (3) COPD (chronic obstructive pulmonary disease) (4) Obesity hypoventilation syndrome (5) Leukocytosis (6) Sepsis (7) Hyperglycemia (8) Morbid obesity (9) Hypertension Symptom Scale: (1) Pain 0-10 Scale: 0 Comment: Denies pain at this time. (2) Dyspnea 0-10 Scale: 0 Comment: on vent to trach. Pertinent Non-Medical Issues Psychosocial: notes indicate patient is single. Has one son and 2 daughters. Was living with his son prior to admission. Spiritual: unknown. Legal: Patient appears to be regaining medical decision-making capacity. Patient is single. Has 1 son (Drake Andrews) and 2 daughters (Ira Mcgovern and Krystyna Palma). According to [place] statutes, health care proxy decision- making would fall to the majority of adult children. Krystyna Roth and Drake wish to participate. Ethical issues impacting care: No ethical issues identified at this time. . . Important Contacts * Ira Mcgovern, daughter/ HCP: [phone] (cell) or [phone] ext. [phone] (work) * Drake Andrews, son/ HCP: [phone] (cell) or [phone] (work) * Krystyna Palma, daughter/ HCP: [phone] * Drake Henry girlfriend: [phone] . . Prognosis Mr. Andrews is an unfortunate 56-year-old male who was admitted with respiratory distress, pneumonia, ARDS with prolonged hospitalization/mechanical ventilation. 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 Patient remains a high risk for further complications, continue decline and . Patient will likely require acute rehabilitation upon discharge. . Code Status: Full Code Plan * MEDICAL DECISION-MAKING: Patient participating in medical decision-making. Has regained capacity, encephalopathy resolved. Patient communicating by mouthing words given tracheostomy. He appears to have a good understanding of his complex medical issues. No advance directives previously completed. Reviewed with patient that as per [place] law, healthcare proxy decision maker falls to the majority of his adult children, for which he has 3. Patient was offered assistance with completion of advance directives and was given the opportunity to appoint a designated healthcare surrogate. Patient declined at this time, mouthing that he would like to keep his 3 children as HCP decision makers. * CODE STATUS: Full code. * GOALS OF CARE: 12/28/16 -Patient electing to continue with current aggressive management to include FULL code/vent support if clinically indicated. Patient's family fully supportive of patient's wishes. Patient tells me that he feels frustrated with his slow progress, reviewed that he will likely required a longer recovery time given his debilitated condition and chronic underlying comorbidities. Patient reports that he is looking forward to rehabilitate to get stronger. Ongoing dispo planning, Patient will likely require aggressive pulmonary/physical rehabilitation; however, difficult disposition given no current payor source. Case management following, [facility] currently reviewing patient.. * SYMPTOMS: =Dyspnea s/p trach. Underlying COPD, obesity. Pulmonology following, patient currently on BiPAP. = Pain, multifactorial given prolonged hospitalization, tracheostomy. Fentanyl 50 mcg PRN available. None used in the past 24hrs. Patient appears comfortable and denies pain at the time of my visit. = Debility, myopathy likely secondary to critical illness, neuromuscular blockage and steroid use. Appears to be slightly improving. Will likely require acute rehabilitation upon discharge. * Palliative care contact information has been provided to patient and family. * Palliative care will continue to follow-up as needed throughout hospital course to assist with symptom management and clarification of goals. . Time Spent Total Floor Time (mins): 24 (Total time to include review medical records, physical exam, goals of care conversation with patient.) >50% Counseling/Coord of Care: Yes Attestation To help prompt me to consider important information that might be impacting today's encounter and assessment, information from prior notes written by myself or my colleagues may have been "brought forward" into today's note. My signature on this note, however, is an attestation that I personally performed the exam, history, and/or decision-making noted today, and, unless otherwise indicated, the interactions with patient, family, and staff as well as the review of records all occurred today. I also attest that the listed assessment and stated plan reflect my best clinical judgment today based on the combination of historical information, prior notes, and today's exam/ interactions. When time spent is documented, it refers only to time spent today by the signer, or if indicated, combined time spent today by collaborating physician/nurse practitioner. Harper Westfall Dec 28, 2016 15:58
[2016-12-28] MEDS: ESCITALOPRAM OXALATE 10 MG TAB PO SCH (23:27)
[2016-12-28] MEDS: LACTOBACILLUS ACIDOPHILUS TAB PO SCH (23:27)
[2016-12-29] VITALS (15 sets, daily range): BP systolic 113–126; BP diastolic 65–72; PULSE 60–73; RESP 14–22; TEMP 98–99.8; O2SAT 93–100
[2016-12-29] MEDS: INSULIN NovoLIN REGULAR SUPPLEMENTAL SCALE SQ SCH ×4 (02:00→20:00)
[2016-12-29] MEDS: CHLORHEXIDINE GLUCONATE 2 % 1 PACK (2 CLOTHS) TOP SCH (03:45)
[2016-12-29] MEDS: METOPROLOL TARTRATE 50 MG TAB PO SCH ×3 (05:11→17:15)
[2016-12-29] MEDS: DILTIAZEM HCL 90 MG TAB PO SCH ×3 (05:11→17:15)
[2016-12-29] MEDS: METOCLOPRAMIDE HCL SYRUP 10 MG/10 ML UDC PO SCH ×3 (05:11→22:13)
[2016-12-29 06:25] LABS: HEMATOCRIT 29.5 % (39.0-51.0); PLATELET COUNT 425 TH/MM3 (150-450); RED BLOOD COUNT 3.14 MIL/MM3 (4.50-5.90); REVIEW FLAG FINAL; WHITE BLOOD COUNT 15.5 TH/MM3 (4.0-11.0)
[2016-12-29] MEDS: RESP: ALBUTEROL 2.5 MG/IPRATROPIUM 0.5 MG NEB (SCH) NEB ×3 (07:31→19:42)
[2016-12-29] MEDS: RESP: BUDESONIDE 0.5 MG/2 ML NEB NEB SCH ×2 (07:31→19:42)
--- NOTE | 2016-12-29 08:08 | HHI.PR ---
Subjective Remarks In bed, appears in nad. Respiratory therapist at bedside, patient having nebs, Has less secretions,. no much cough. No fever or chills. Dignishield with diarrhea. Add lactinex and imodium. Monitor lytes Objective Vitals Vital Signs Date Time Temp Pulse Resp B/P (MAP) Pulse Ox O2 Delivery O2 Flow Rate FiO2 12/29/16 07:32 96 T-piece 6.00 35 12/29/16 06:00 63 12/29/16 04:00 69 12/29/16 04:00 98.0 70 20 123/70 (87) 95 12/29/16 03:40 96 40 12/29/16 02:00 67 12/29/16 00:15 97 40 12/29/16 00:00 72 12/29/16 00:00 98.2 73 14 113/65 (81) 96 12/28/16 22:00 81 12/28/16 20:00 86 12/28/16 20:00 98.2 80 20 142/82 (102) 100 12/28/16 19:46 96 40 12/28/16 19:00 97 T-Piece 40 Humidified 12/28/16 18:00 71 12/28/16 16:00 98.7 80 20 138/87 (104) 99 12/28/16 16:00 71 12/28/16 14:00 71 12/28/16 13:04 100 40 12/28/16 12:00 71 12/28/16 12:00 98.7 78 19 135/69 (91) 99 12/28/16 10:00 71 12/28/16 08:14 95 BiPAP 40 12/28/16 08:14 95 40 I/O 12/28/16 12/28/16 12/28/16 12/29/16 12/29/16 12/29/16 07:00 15:00 23:00 07:00 15:00 23:00 Intake Total 1041 ml 780 ml 787 ml Output Total 1100 ml 1150 ml 700 ml Balance -59 ml -370 ml 87 ml Intake Oral 0 ml Tube Feeding 641 ml 580 ml 537 ml Other 400 ml 200 ml 250 ml Output Urine Total 1000 ml 1050 ml 600 ml Stool Total 100 ml 100 ml 100 ml Result Diagram: 12/29/16 0343 12/28/16 0354 Imaging Last Impressions Chest Ultrasound 12/27/16 0000 Signed Impressions: Service Date/Time: December 19:04 - CONCLUSION: Minimal right pleural effusion and the patient was not marked for thoracentesis. Jhonathan Dietz MD Chest X-Ray 12/23/16 0600 Signed Impressions: Service Date/Time: Friday, December 23, 2016 02:25 - CONCLUSION: Worsening consolidation and pleural effusion at the right base. Right chest she remains in place. No pneumothorax seen. Jayson Taylor MD Abdomen X-Ray 12/19/16 0000 Signed Impressions: Service Date/Time: Monday, December 19, 2016 07:55 - CONCLUSION: Mildly dilated loops of small and large bowel characteristic of ileus. Fito Joshua MD Abdomen/Pelvis CT 12/15/16 0000 Signed Impressions: Service Date/Time: Thursday, December 15, 2016 10:50 - CONCLUSION: 1. Distended bowel especially the small bowel and the cecum. This is nonspecific. A transition point is not seen. This could relate to ileus. Oral contrast does extend to the rectum. 2. Bibasilar areas of consolidation at the lung bases. There also is a possible small pneumothorax on the right. The patient does have a right chest tube in place. 3. G-tube. 4. Distended gallbladder. 5. Increased soft tissue density in the left lateral abdominal wall which could be from prior trauma or edema. Jayson Soto MD Lower Extremity Ultrasound 12/09/16 0000 Signed Impressions: Service Date/Time: Friday, December 09, 2016 17:13 - CONCLUSION: 1. No evidence of DVT 2. Large complex mass in the pump to fossa characteristic of a hematoma. Joni Barfield MD Cervical Spine MRI 12/03/16 0000 Signed Impressions: Service Date/Time: Saturday, December 03, 2016 13:13 - CONCLUSION: Severely limited exam. I believe there is increased signal in the cervical cord mid C3 to mid C5. Ward Kim MD FACR Brain MRI 12/03/16 0000 Signed Impressions: Service Date/Time: Saturday, December 03, 2016 13:13 - CONCLUSION: 1. There is a small area of abnormal T2 signal in the left frontal cortex this is unchanged from the previous examination dated 11/26/16. This is nonspecific in appearance on the MRI. Differential considerations would be a small area of gliosis versus an old area of contusion. Follow up examination in 6 months to document stability would be warranted. 2. No findings to indicate acute cortical infarction are identified. Román Kim MD Gastrostomy Tube Placement 11/30/16 0000 Signed Impressions: Service Date/Time: Wednesday, November 30, 2016 12:22 - CONCLUSION: Uncomplicated gastrostomy tube placement as above. Jorge Jolly MD Liver Ultrasound 11/09/16 0000 Signed Impressions: Service Date/Time: Wednesday, November 09, 2016 13:58 - CONCLUSION: Sono dense liver without duct dilatation. 4 mm common duct. Ward Kim MD FACR Chest CT 11/06/16 0000 Signed Impressions: Service Date/Time: Sunday, November 06, 2016 11:24 - CONCLUSION: 1. Dense bilateral posterior lower lobe airspace consolidation consistent with aspiration versus less likely pneumonia. 2. Linear consolidation in the right middle lobe consistent with atelectasis versus aspiration. 3. Trace left and small right pleural effusions. 4. Support lines and tubes in good position. 5. Prominent coronary artery calcifications. Nico Vaughan MD Head CT 11/05/16 0000 Signed Impressions: Service Date/Time: Saturday, November 05, 2016 21:43 - CONCLUSION: 1. No acute intracranial abnormalities. Pansinus fluid opacification. Cristofer De Santiago MD Carotid Artery Ultrasound 10/25/16 0000 Signed Impressions: Service Date/Time: September 08:27 - CONCLUSION: Mild to moderate plaque in both carotid systems with less than 40%% diameter stenosis by velocity criteria. Jhonathan Dietz MD CT Angiography 10/25/16 0000 Signed Impressions: Service Date/Time: September 06:12 - CONCLUSION: 1. Negative for pulmonary embolism. 2. There is a fairly large area of masslike consolidation in the medial right lung involving posterior segment right upper lobe and medial aspect of right lower lobe. There is associated right hilar and mediastinal adenopathy measuring up to 2.1 cm. Differential diagnosis includes pneumonia or underlying lung neoplasm. Close followup imaging recommended after treatment for pneumonia, to assess for underlying mass. Cristofer De Santiago MD Objective Remarks GENERAL: 56-year-old male, on t-piece in no acute distress SKIN: Warm and dry. Positive intertrigo HEAD: Atraumatic. Normocephalic. EYES: Pupils equal and round about 3 mm bilaterally and reactive. ENT: No nasal bleeding or discharge. NECK: Trachea midline. No JVD. Tracheostomy site has some yellow secretions surrounding CARDIOVASCULAR: normal rate, regular rhythm. RESPIRATORY: equal chest rise. unlabored. GASTROINTESTINAL: Abdomen soft, obese, distended. PEG tube site is clean dry and intact MUSCULOSKELETAL: Extremities with trace lower extremity. No obvious deformities. NEUROLOGICAL: Eyes are open. Moves fingers and toes. Shrugs shoulders. Squeezes hands. Nods head appropriately to questions. Sensation appears intact A/P Assessment and Plan Neuro/Psych: Metabolic encephalopathy - resolved. CIM/SHEFALI S/p Neuromuscular paralysis for Prone therapy Syncope Depression MRI C-spine showing increased signals C3-C5 region. Dr Riggins reviewed MRI spine- not sure about increased signal in cord, could be cervical hyperextension injury, from intubation according to him. Unable to do flexion- extension films of the C-spine (trached patient). 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 Haloperidol 5mg iv q4h prn for agitation. Escitalopram 10 mg qhs or depression from 12/07/16. MRI brain 11/26: Small focal signal abnormality in the superior medial left frontal lobe. Could be sequela from prior insult such as a contusion or small infarct. No acute infarct MRI brain 12/[address] on admission revealed no acute intracranial findings, CT brain 11/05- no acute findings. opacification of sinuses. EEG 11/20: No seizure activity. EEG 11/09: severe encephalopathy PT/OT for range of motion, up to stretcher chair as tolerated CV: Hypotension-resolved Atrial fib/ flutter with RVR - rate controlled. Hypertension decrease amiodarone to 200mg po daily for maintenance dose. digoxin 0.125 mg po daily. recheck level 01/04 and [id number] as long as stable. PO Diltiazem 90 mg PO q6hr, metoprolol 50mg Q6 Coumadin and heparin 12/10 held due to left popliteal fossa hematoma. Continue DVT prophylaxis with SQH. given high risk for bleeding complication and low CHADS-VaSC risk, risk/benefit at this time in favor of holding full anticoagulation. Echo 10/25 EF 60-65%. Repeat echo with bubble study: 11/22: No shunt seen Resp: Acute, now chronic hypoxemic Respiratory failure s/p trach 11/27 Spontaneous Right sided PTX secondary to barotrauma - resolved. COPD exacerbation - resolved. Pneumonia most likely community-acquired - resolved. Obesity hypoventilation syndrome Tobacco use disorder albuterol aerosols every 2 hours PRN. Ventilator bundle tolerating intermittent PSV. Budesonide 0.5 mg/2 mL aerosols twice a day. Prednisone 20 mg daily, will wean to 10mg daily. s/p trach 11/[address] Martin #[facility]. Pulmonary/Dr. Wynne has followed s/p 20Fr CT placed for right PTX 11/23, monitor CT drainage. d/c chest tube . CT pulmonary angio revealed no pulmonary embolus. Masslike consolidation in the posterior right upper lobe and medial right lower lobe. Lymphadenopathy to 1 cm right hilum and subcarinal. Atelectasis left lower lobe. Discontinued Prone therapy 11/02/16. slow wean of mechanical ventilation. continue t-piece as tolerated. GI: Ileus - resolved. Morbid Obesity Elevated LFT's- now within normal. PEG tube placement 11/30. US liver: No ductal dilatation tube feeds with vital high-protein currently at 40. increase to 50 cc/hr. Metoclopramide 10 mg every 6 hours, change to PO. No Cholecystostomy tube recommended by Dr. Nguyen. Recommended advance diet as tolerated Famotidine 20 milligrams mg twice a day for GI prophylaxis /renal/FEN: Hyponatremia Hypopotassemia Diarrhea: C diff is negative. Add lactinex and imodium. Monitor lytes Monitor renal function, I/O's, electrolytes replacement per protocol. Currently on sodium chloride 1 g every 12 hours Endo: Hyperglycemia SSI Q6h with Regular Insulin mild protocol for glycemic control. Previously insulin detemir 62 units twice a day. Restarted 15 units twice a day 12/01. Decreased attenuation units twice daily 12/19 due to hypoglycemia Adequate blood sugar control . Heme: Normocytic anemia - stable. Leukocytosis L popliteal fossa hematoma - stable. Monitor closely for compartment syndrome ID: Severe sepsis - resolved. HCAP - resolved. Placed back on piperacillin/tazobactam, d/c'd 12/20. Discontinued vancomycin and micafungin by ID, WBC trending down ID Amanda Haas, F/U ríos culture, C Diff- NGTD. ABX completed 12/11. (piperacillin/tazobactam and sulfamethoxazole/ trimethoprim 800/160 2 tablets 3 times a day) Sputum: Klebsiella, Stenotrophomonas and Pseudomonas 11/27 Sputum cx 11/23: Kleb, Pseudomonas, s/p (ceftriaxone and fluconazole course). ID is following-Dr. Patel s/p ceftriaxone 11/02-11/09 for Enterobacter pneumonia. Repeat sputum Klebsiella sensitive to Rocephin 10/29/16-Enterobacter in sputum, 11/06/16, 11/10 sputum- Klebsiella Urine Legionella and pneumococcal antigens negative and influenza negative C-diff PCR is negative Observe clinically off abx. Trend fever curve. Access RUE PICC placed 11/05 through 11/15 replaced 11/16 with left upper extremity PICC, d/c'd 12/23. Prophylaxis GI, famotidine. DVT - IV heparin gtt, Coumadin DCd 12/10 due to left popliteal hematoma, On Heparin 5000 U q12 sq. given bleeding complications with low CHADS- VaSC risk, risk/benefit in favor of holding full anticoagulation. 11/09 Doppler US LE negative for DVT Palliative care is following Patient with slow progression. On T-piece. Pulmonary following. Heike Yanes MD Dec 29, 2016 08:08
[2016-12-29] MEDS: INSULIN DETEMIR 100 UNITS/ML VIAL SQ SCH ×2 (09:00→20:33)
[2016-12-29] MEDS: AMIODARONE 200 MG TAB OG-TUBE SCH (09:40)
[2016-12-29] MEDS: DIGOXIN 0.125 MG TAB PO SCH (09:40)
[2016-12-29] MEDS: SODIUM CHLORIDE 1 GRAM TAB PO SCH ×2 (09:40→20:25)
[2016-12-29] MEDS: FAMOTIDINE 20 MG TAB NG SCH ×2 (09:40→20:25)
[2016-12-29] MEDS: predniSONE 20 MG TAB PO SCH (09:40)
[2016-12-29] MEDS: ARTIFICIAL TEARS OPTH OINT 3.5 APPLIC/3.5 GM TUBO EACH EYE SCH ×2 (09:41→20:25)
[2016-12-29] MEDS: CHLORHEXIDINE 0.12% (ORAL KIT) 15 ML CUP MT SCH ×2 (09:41→22:12)
[2016-12-29] MEDS: SODIUM CHLORIDE 0.9% FLUSH 10 ML FLUSH IVF SCH (09:42)
[2016-12-29] MEDS: LISINOPRIL 10 MG TAB PO SCH (09:54)
[2016-12-29] MEDS: ENOXAPARIN SODIUM 40 MG/0.4 ML SYRINGE SQ SCH (10:42)
[2016-12-29] MEDS: LACTOBACILLUS ACIDOPHILUS TAB PO SCH ×2 (10:42→20:25)
--- NOTE | 2016-12-29 12:00 | HHI.PR ---
Subjective Remarks Alert and breathing easy. On a T Bar FIO2 40 % . Good output. Loose stools, and weak legs. Objective Vital Signs Date Time Temp Pulse Resp B/P (MAP) Pulse Ox O2 Delivery O2 Flow Rate FiO2 12/29/16 10:00 66 12/29/16 08:00 98.6 66 22 124/65 (84) 93 12/29/16 08:00 66 12/29/16 07:32 96 T-piece 6.00 35 12/29/16 07:00 T-Piece 5.00 40 Humidified 12/29/16 06:00 63 12/29/16 04:00 69 12/29/16 04:00 98.0 70 20 123/70 (87) 95 12/29/16 03:40 96 40 12/29/16 02:00 67 12/29/16 00:15 97 40 12/29/16 00:00 72 12/29/16 00:00 98.2 73 14 113/65 (81) 96 12/28/16 22:00 81 12/28/16 20:00 86 12/28/16 20:00 98.2 80 20 142/82 (102) 100 12/28/16 19:46 96 40 12/28/16 19:00 97 T-Piece 40 Humidified 12/28/16 18:00 71 12/28/16 16:00 98.7 80 20 138/87 (104) 99 12/28/16 16:00 71 12/28/16 14:00 71 12/28/16 13:04 100 40 12/28/16 12:00 71 12/28/16 12:00 98.7 78 19 135/69 (91) 99 I/O 12/28/16 12/28/16 12/28/16 12/29/16 12/29/16 12/29/16 07:00 15:00 23:00 07:00 15:00 23:00 Intake Total 1041 ml 780 ml 787 ml Output Total 1100 ml 1150 ml 700 ml Balance -59 ml -370 ml 87 ml Intake Oral 0 ml Tube Feeding 641 ml 580 ml 537 ml Other 400 ml 200 ml 250 ml Output Urine Total 1000 ml 1050 ml 600 ml Stool Total 100 ml 100 ml 100 ml Result Diagram: 12/29/16 0343 12/28/16 0354 Objective Remarks GENERAL: Obese middle-aged white male who is a awake. He has edema 2+ of the extremities. HEENT: Head normocephalic. Pupils are reactive. Sclerae are injected. He has no inflammation. NECK: Supple. No bruits or thyroid enlargement. Mild venous distension. CHEST: Equal movements with diminished breath sounds at the bases, more so on the right side. HEART: The heart sounds are irregular. S1 and S2 with no definite murmur. ABDOMEN: Obese, protuberant. No masses, no organomegaly. EXTREMITIES: Mild edema. Decreased peripheral pulses. Reflexes 1+. The patient has some weakness of his lower extremities.and left arm. 2 + edema of all limbs. SKIN: Dry and scaly. RECTAL: Exam is deferred. Assessment and Plan Assessment and Plan IMPRESSION 1. Resolving respiratory failure. 2. Basilar pneumonia and hypoxemia. 3. COPD and chronic bronchitis. 4. Possible obstructive sleep apnea syndrome. 5. Hypertension. 6. Atrial fibrillation and CHF. 7. Severe sepsis, resolved. Plan : 1.Place on BIPAP 12/5 CM FIO2 35 % at HS 2. Continue Diuretic. 3. Cont Prednisone 10 mg daily. 4. T bar 40 % daytime 7 am to 7 pm. 5. PT Evaluation. 6. Duoneb nebs qid. 7. Tube feeds at 55 CC. Laura Haile MD Dec 29, 2016 12:00
[2016-12-29] MEDS: ESCITALOPRAM OXALATE 10 MG TAB PO SCH (20:25)
[2016-12-30] VITALS (18 sets, daily range): BP systolic 91–128; BP diastolic 54–73; PULSE 59–69; RESP 17–25; TEMP 98.3–99.4; O2SAT 87–97
[2016-12-30] MEDS: METOPROLOL TARTRATE 50 MG TAB PO SCH ×4 (00:09→17:22)
[2016-12-30] MEDS: DILTIAZEM HCL 90 MG TAB PO SCH ×4 (00:09→17:23)
[2016-12-30] MEDS: INSULIN NovoLIN REGULAR SUPPLEMENTAL SCALE SQ SCH ×4 (02:00→20:00)
[2016-12-30] MEDS: CHLORHEXIDINE GLUCONATE 2 % 1 PACK (2 CLOTHS) TOP SCH (04:00)
--- NOTE | 2016-12-30 04:06 | RADRPT ---
EXAM DATE/TIME: 12/30/2016 04:25 [facility] COMPARISON: CHEST SINGLE AP, December 23, 2016, 2:25. INDICATIONS : Shortness of breath, possible pulmonary disease. MEDICAL HISTORY : Hypercholesterolemia. Hypertension Chronic obstructive pulmonary disease. SURGICAL HISTORY : None. ENCOUNTER: Subsequent ACUITY: 1 month PAIN SCORE: Non-responsive. LOCATION: Bilateral chest FINDINGS: Single AP view of the chest. Tracheostomy tube remains in place. Bilateral lower lung zone parenchyma l opacity and small bilateral pleural effusions unchanged. Cardiomediastinal silhouette unchanged. No evidence of pneumothorax. CONCLUSION: No significant interval change. Persistent bilateral lower lung zone consolidation versus atelectasis and pleural effusions. Austin Funes MD on December 30, 2016 at 4:04 Board Certified Radiologist. This report was verified electronically.
[2016-12-30 04:19] LABS: APTT (PATIENT) 25.6 SEC (24.3-30.1)
[2016-12-30 04:31] LABS: GLOMERULAR FILTRATION RATE 690 ML/MIN (>89)
[2016-12-30] MEDS: METOCLOPRAMIDE HCL SYRUP 10 MG/10 ML UDC PO SCH ×3 (06:01→23:09)
[2016-12-30] MEDS: RESP: BUDESONIDE 0.5 MG/2 ML NEB NEB SCH ×2 (07:29→20:23)
[2016-12-30] MEDS: RESP: ALBUTEROL 2.5 MG/IPRATROPIUM 0.5 MG NEB (SCH) NEB ×3 (07:29→20:23)
--- NOTE | 2016-12-30 07:44 | HHI.PR ---
Subjective Remarks Less diarrhea. No fever or chills. Has secretions, coughs at times, suctioned by reparatory therapist. No n/v/d/c. Objective Vitals Vital Signs Date Time Temp Pulse Resp B/P (MAP) Pulse Ox O2 Delivery O2 Flow Rate FiO2 12/30/16 06:00 67 12/30/16 04:10 94 35 12/30/16 04:00 98.8 64 19 110/61 (77) 94 12/30/16 04:00 64 12/30/16 02:00 62 12/30/16 00:07 95 35 12/30/16 00:00 67 12/30/16 00:00 98.4 67 19 127/73 (91) 94 12/29/16 22:00 66 12/29/16 20:00 60 12/29/16 20:00 99.8 60 20 113/72 (86) 100 12/29/16 19:42 95 35 12/29/16 19:00 T-Piece 5.00 35 Humidified 12/29/16 18:00 67 12/29/16 16:00 98.7 63 21 122/66 (84) 96 12/29/16 16:00 63 12/29/16 12:00 98.4 69 19 126/71 (89) 94 12/29/16 12:00 69 12/29/16 10:00 66 12/29/16 08:00 98.6 66 22 124/65 (84) 93 12/29/16 08:00 66 I/O 12/29/16 12/29/16 12/29/16 12/30/16 12/30/16 12/30/16 07:00 15:00 23:00 07:00 15:00 23:00 Intake Total 787 ml 1150 ml 818 ml Output Total 700 ml 3200 ml 2125 ml Balance 87 ml -2050 ml -1307 ml Tube Feeding 537 ml 1150 ml 643 ml Other 250 ml 175 ml Output Urine Total 600 ml 3200 ml 1525 ml Stool Total 100 ml 600 ml Result Diagram: 12/29/16 0343 12/30/16 0353 Imaging Last Impressions Chest X-Ray 12/30/16 0600 Signed Impressions: Service Date/Time: Friday, December 30, 2016 04:25 - CONCLUSION: No significant interval change. Persistent bilateral lower lung zone consolidation versus atelectasis and pleural effusions. Austin Funes MD Chest Ultrasound 12/27/16 0000 Signed Impressions: Service Date/Time: December 19:04 - CONCLUSION: Minimal right pleural effusion and the patient was not marked for thoracentesis. Jhonathan Dietz MD Abdomen X-Ray 12/19/16 0000 Signed Impressions: Service Date/Time: Monday, December 19, 2016 07:55 - CONCLUSION: Mildly dilated loops of small and large bowel characteristic of ileus. Fito Joshua MD Abdomen/Pelvis CT 12/15/16 0000 Signed Impressions: Service Date/Time: Thursday, December 15, 2016 10:50 - CONCLUSION: 1. Distended bowel especially the small bowel and the cecum. This is nonspecific. A transition point is not seen. This could relate to ileus. Oral contrast does extend to the rectum. 2. Bibasilar areas of consolidation at the lung bases. There also is a possible small pneumothorax on the right. The patient does have a right chest tube in place. 3. G-tube. 4. Distended gallbladder. 5. Increased soft tissue density in the left lateral abdominal wall which could be from prior trauma or edema. Jayson Soto MD Lower Extremity Ultrasound 12/09/16 0000 Signed Impressions: Service Date/Time: Friday, December 09, 2016 17:13 - CONCLUSION: 1. No evidence of DVT 2. Large complex mass in the pump to fossa characteristic of a hematoma. Joni Barfield MD Cervical Spine MRI 12/03/16 0000 Signed Impressions: Service Date/Time: Saturday, December 03, 2016 13:13 - CONCLUSION: Severely limited exam. I believe there is increased signal in the cervical cord mid C3 to mid C5. Ward Kim MD FACR Brain MRI 12/03/16 0000 Signed Impressions: Service Date/Time: Saturday, December 03, 2016 13:13 - CONCLUSION: 1. There is a small area of abnormal T2 signal in the left frontal cortex this is unchanged from the previous examination dated 11/26/16. This is nonspecific in appearance on the MRI. Differential considerations would be a small area of gliosis versus an old area of contusion. Follow up examination in 6 months to document stability would be warranted. 2. No findings to indicate acute cortical infarction are identified. Román Kim MD Gastrostomy Tube Placement 11/30/16 Signed Impressions: Service Date/Time: Wednesday, November 30, 2016 12:22 - CONCLUSION: Uncomplicated gastrostomy tube placement as above. Jorge Jolly MD Liver Ultrasound 11/09/16 Signed Impressions: Service Date/Time: Wednesday, November 09, 2016 13:58 - CONCLUSION: Sono dense liver without duct dilatation. 4 mm common duct. Ward Kim MD FACR Chest CT 11/06/16 Signed Impressions: Service Date/Time: Sunday, November 06, 2016 11:24 - CONCLUSION: 1. Dense bilateral posterior lower lobe airspace consolidation consistent with aspiration versus less likely pneumonia. 2. Linear consolidation in the right middle lobe consistent with atelectasis versus aspiration. 3. Trace left and small right pleural effusions. 4. Support lines and tubes in good position. 5. Prominent coronary artery calcifications. Nico Vaughan MD Head CT 11/05/16 Signed Impressions: Service Date/Time: Saturday, November 05, 2016 21:43 - CONCLUSION: 1. No acute intracranial abnormalities. Pansinus fluid opacification. Cristofer De Santiago MD Carotid Artery Ultrasound 10/25/16 Signed Impressions: Service Date/Time: September 08:27 - CONCLUSION: Mild to moderate plaque in both carotid systems with less than 40%% diameter stenosis by velocity criteria. Jhonathan Dietz MD CT Angiography 10/25/16 Signed Impressions: Service Date/Time: September 06:12 - CONCLUSION: 1. Negative for pulmonary embolism. 2. There is a fairly large area of masslike consolidation in the medial right lung involving posterior segment right upper lobe and medial aspect of right lower lobe. There is associated right hilar and mediastinal adenopathy measuring up to 2.1 cm. Differential diagnosis includes pneumonia or underlying lung neoplasm. Close followup imaging recommended after treatment for pneumonia, to assess for underlying mass. Cristofer De Santiago MD Objective Remarks GENERAL: 56-year-old male, on t-piece in no acute distress SKIN: Warm and dry. Positive intertrigo HEAD: Atraumatic. Normocephalic. EYES: Pupils equal and round about 3 mm bilaterally and reactive. ENT: No nasal bleeding or discharge. NECK: Trachea midline. No JVD. Tracheostomy site has some yellow secretions surrounding CARDIOVASCULAR: normal rate, regular rhythm. RESPIRATORY: equal chest rise. unlabored. GASTROINTESTINAL: Abdomen soft, obese, distended. PEG tube site is clean dry and intact MUSCULOSKELETAL: Extremities with trace lower extremity. No obvious deformities. NEUROLOGICAL: Eyes are open. Moves fingers and toes. Shrugs shoulders. Squeezes hands. Nods head appropriately to questions. Sensation appears intact A/P Assessment and Plan Neuro/Psych: Metabolic encephalopathy - resolved. CIM/SHEFALI S/p Neuromuscular paralysis for Prone therapy Syncope Depression MRI C-spine showing increased signals C3-C5 region. Dr Riggins reviewed MRI spine- not sure about increased signal in cord, could be cervical hyperextension injury, from intubation according to him. Unable to do flexion- extension films of the C-spine (trached patient). 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 Haloperidol 5mg iv q4h prn for agitation. Escitalopram 10 mg qhs or depression from 12/07/16. MRI brain 11/26: Small focal signal abnormality in the superior medial left frontal lobe. Could be sequela from prior insult such as a contusion or small infarct. No acute infarct MRI brain 12/[address] on admission revealed no acute intracranial findings, CT brain 11/05- no acute findings. opacification of sinuses. EEG 11/20: No seizure activity. EEG 11/09: severe encephalopathy PT/OT for range of motion, up to stretcher chair as tolerated CV: Hypotension-resolved Atrial fib/ flutter with RVR - rate controlled. Hypertension decrease amiodarone to 200mg po daily for maintenance dose. digoxin 0.125 mg po daily. recheck level 01/04 and b41tokv as long as stable. PO Diltiazem 90 mg PO q6hr, metoprolol 50mg Q6 Coumadin and heparin 12/10 held due to left popliteal fossa hematoma. Continue DVT prophylaxis with SQH. given high risk for bleeding complication and low CHADS-VaSC risk, risk/benefit at this time in favor of holding full anticoagulation. Echo 10/25 EF 60-65%. Repeat echo with bubble study: 11/22: No shunt seen Resp: Acute, now chronic hypoxemic Respiratory failure s/p trach 11/27 Spontaneous Right sided PTX secondary to barotrauma - resolved. COPD exacerbation - resolved. Pneumonia most likely community-acquired - resolved. Obesity hypoventilation syndrome Tobacco use disorder albuterol aerosols every 2 hours PRN. Ventilator bundle tolerating intermittent PSV. Budesonide 0.5 mg/2 mL aerosols twice a day. Prednisone 20 mg daily, will wean to 10mg daily. s/p trach 11/[address] Martin #8 [facility]. Pulmonary/Dr. Wynne has followed s/p 20Fr CT placed for right PTX 11/23, monitor CT drainage. d/c chest tube . CT pulmonary angio revealed no pulmonary embolus. Masslike consolidation in the posterior right upper lobe and medial right lower lobe. Lymphadenopathy to 1 cm right hilum and subcarinal. Atelectasis left lower lobe. Discontinued Prone therapy 11/02/16. slow wean of mechanical ventilation. continue t-piece as tolerated. GI: Ileus - resolved. Morbid Obesity Elevated LFT's- now within normal. PEG tube placement 11/30. US liver: No ductal dilatation tube feeds with vital high-protein currently at 40. increase to 50 cc/hr. Metoclopramide 10 mg every 6 hours, change to PO. No Cholecystostomy tube recommended by Dr. Nguyen. Recommended advance diet as tolerated Famotidine 20 milligrams mg twice a day for GI prophylaxis /renal/FEN: Hyponatremia Hypopotassemia Diarrhea: C diff is negative. Add lactinex and imodium. Monitor lytes Monitor renal function, I/O's, electrolytes replacement per protocol. Currently on sodium chloride 1 g every 12 hours Endo: Hyperglycemia SSI Q6h with Regular Insulin mild protocol for glycemic control. Previously insulin detemir 62 units twice a day. Restarted 15 units twice a day 12/01. Decreased attenuation units twice daily 12/19 due to hypoglycemia Adequate blood sugar control . Heme: Normocytic anemia - stable. Leukocytosis L popliteal fossa hematoma - stable. Monitor closely for compartment syndrome ID: Severe sepsis - resolved. HCAP - resolved. Placed back on piperacillin/tazobactam, d/c'd 12/20. Discontinued vancomycin and micafungin by ID, WBC trending down ID Amanda Haas, F/U ríos culture, C Diff- NGTD. ABX completed 12/11. (piperacillin/tazobactam and sulfamethoxazole/ trimethoprim 800/160 2 tablets 3 times a day) Sputum: Klebsiella, Stenotrophomonas and Pseudomonas 11/27 Sputum cx 11/23: Kleb, Pseudomonas, s/p (ceftriaxone and fluconazole course). ID is following-Dr. Patel s/p ceftriaxone 11/02-11/09 for Enterobacter pneumonia. Repeat sputum Klebsiella sensitive to Rocephin 10/29/16-Enterobacter in sputum, 11/06/16, 11/10 sputum- Klebsiella Urine Legionella and pneumococcal antigens negative and influenza negative C-diff PCR is negative Observe clinically off abx. Trend fever curve. Access RUE PICC placed 11/05 through 11/15 replaced 11/16 with left upper extremity PICC, d/c'd 12/23. Prophylaxis GI, famotidine. DVT - IV heparin gtt, Coumadin DCd 12/10 due to left popliteal hematoma, On Heparin 5000 U q12 sq. given bleeding complications with low CHADS- VaSC risk, risk/benefit in favor of holding full anticoagulation. 11/09 Doppler US LE negative for DVT Palliative care is following Patient with slow progression. On T-piece. Pulmonary following. Discussed with the patient , nurse Heike Yanes MD Dec 30, 2016 07:44
[2016-12-30] MEDS: CHLORHEXIDINE 0.12% (ORAL KIT) 15 ML CUP MT SCH ×2 (08:19→23:09)
[2016-12-30] MEDS: ARTIFICIAL TEARS OPTH OINT 3.5 APPLIC/3.5 GM TUBO EACH EYE SCH ×2 (08:19→21:00)
[2016-12-30] MEDS: SODIUM CHLORIDE 0.9% FLUSH 10 ML FLUSH IVF SCH (08:20)
[2016-12-30] MEDS: predniSONE 20 MG TAB PO SCH (08:20)
[2016-12-30] MEDS: AMIODARONE 200 MG TAB OG-TUBE SCH (08:20)
[2016-12-30] MEDS: FAMOTIDINE 20 MG TAB NG SCH ×2 (08:20→20:14)
[2016-12-30] MEDS: LISINOPRIL 10 MG TAB PO SCH (08:21)
[2016-12-30] MEDS: INSULIN DETEMIR 100 UNITS/ML VIAL SQ SCH ×2 (08:21→20:14)
[2016-12-30] MEDS: DIGOXIN 0.125 MG TAB PO SCH (08:21)
[2016-12-30] MEDS: SODIUM CHLORIDE 1 GRAM TAB PO SCH ×2 (08:21→20:14)
[2016-12-30] MEDS: LACTOBACILLUS ACIDOPHILUS TAB PO SCH ×2 (09:35→20:14)
[2016-12-30] MEDS: ENOXAPARIN SODIUM 40 MG/0.4 ML SYRINGE SQ SCH (10:08)
--- NOTE | 2016-12-30 12:32 | HHI.PR ---
Subjective Remarks Alert and Oriented. C/O Weakness and leg pains. On a T Bar FIO2 40 % .CXR shows basal infiltrates Good output. Loose stools. Objective Vital Signs Date Time Temp Pulse Resp B/P (MAP) Pulse Ox O2 Delivery O2 Flow Rate FiO2 12/30/16 10:00 65 12/30/16 08:00 62 12/30/16 08:00 98.3 62 18 110/55 (73) 94 12/30/16 07:29 95 T-piece 7.00 35 12/30/16 07:00 T-Piece 5.00 35 Humidified 12/30/16 06:00 67 12/30/16 04:10 94 35 12/30/16 04:00 98.8 64 19 110/61 (77) 94 12/30/16 04:00 64 12/30/16 02:00 62 12/30/16 00:07 95 35 12/30/16 00:00 67 12/30/16 00:00 98.4 67 19 127/73 (91) 94 12/29/16 22:00 66 12/29/16 20:00 60 12/29/16 20:00 99.8 60 20 113/72 (86) 100 12/29/16 19:42 95 35 12/29/16 19:00 T-Piece 5.00 35 Humidified 12/29/16 18:00 67 12/29/16 16:00 98.7 63 21 122/66 (84) 96 12/29/16 16:00 63 I/O 12/29/16 12/29/16 12/29/16 12/30/16 12/30/16 12/30/16 07:00 15:00 23:00 07:00 15:00 23:00 Intake Total 787 ml 1150 ml 818 ml Output Total 700 ml 3200 ml 2125 ml Balance 87 ml -2050 ml -1307 ml Tube Feeding 537 ml 1150 ml 643 ml Other 250 ml 175 ml Output Urine Total 600 ml 3200 ml 1525 ml Stool Total 100 ml 600 ml Result Diagram: 12/29/16 0343 12/30/16 0353 Objective Remarks GENERAL: Obese middle-aged white male who is a awake. He has edema 2+ of the extremities. HEENT: Head normocephalic. Pupils are reactive. Sclerae are injected. He has no inflammation. NECK: Supple. No bruits or thyroid enlargement. No venous distension. CHEST: Equal movements with diminished breath sounds at the bases, more so on the right side.Occ Crackles . HEART: The heart sounds are irregular. S1 and S2 with no definite murmur. ABDOMEN: Obese, protuberant. No masses, no organomegaly. EXTREMITIES: Mild edema. Decreased peripheral pulses. Reflexes 1+. The patient has some weakness of his lower extremities.and left arm. 2 + edema of all limbs. SKIN: Dry and scaly. RECTAL: Exam is deferred. Assessment and Plan Assessment and Plan IMPRESSION 1. Resolving respiratory failure. 2. Basilar pneumonia and hypoxemia. 3. COPD and chronic bronchitis. 4. Possible obstructive sleep apnea syndrome. 5. Hypertension. 6. Atrial fibrillation and CHF. 7. Severe sepsis, resolved. Plan : 1.Place on BIPAP 12/5 CM FIO2 30 % at HS 2. Continue Diuretics. 3. Prednisone 10 mg daily. 4. T bar 35 % daytime 7 am to 7 pm. 5. PT Evaluation.Up with help 6. Duoneb nebs qid. 7. Tube feeds at 55 CC. 8. Will Add mucomyst 20 % 2 CC with Laura Carrera MD Dec 30, 2016 12:32
[2016-12-30] MEDS ORDERED: RESP: ACETYLCYSTEINE 20% 30 ML NEB NEB SCH (16:00)
[2016-12-30] MEDS: ESCITALOPRAM OXALATE 10 MG TAB PO SCH (20:14)
[2016-12-30] MEDS: RESP: ACETYLCYSTEINE 20% 4 ML NEB NEB SCH (22:00)
[2016-12-31] VITALS (16 sets, daily range): BP systolic 94–118; BP diastolic 50–77; PULSE 60–80; RESP 16–18; TEMP 98.4–99.6; O2SAT 86–100
[2016-12-31] MEDS: DILTIAZEM HCL 90 MG TAB PO SCH ×5 (00:15→23:19)
[2016-12-31] MEDS: METOPROLOL TARTRATE 50 MG TAB PO SCH ×5 (00:15→23:19)
[2016-12-31] MEDS: INSULIN NovoLIN REGULAR SUPPLEMENTAL SCALE SQ SCH ×4 (02:00→20:00)
[2016-12-31] MEDS: RESP: ACETYLCYSTEINE 20% 4 ML NEB NEB SCH ×4 (04:00→20:06)
[2016-12-31] MEDS: CHLORHEXIDINE GLUCONATE 2 % 1 PACK (2 CLOTHS) TOP SCH (04:00)
[2016-12-31] MEDS: RESP: ALBUTEROL 2.5 MG/3 ML NEB (PRN) NEB ×2 (04:59→20:06)
[2016-12-31] MEDS: METOCLOPRAMIDE HCL SYRUP 10 MG/10 ML UDC PO SCH ×3 (05:03→21:43)
[2016-12-31 06:05] LABS: APTT (PATIENT) 26.3 SEC (24.3-30.1)
[2016-12-31] MEDS: CHLORHEXIDINE 0.12% (ORAL KIT) 15 ML CUP MT SCH ×2 (08:00→20:00)
--- NOTE | 2016-12-31 08:22 | HHI.PR ---
Subjective Remarks Pt complaining of pain in legs. No CP/worsening SOB/N/V Per RN, trial of T piece being done at this time and he seems to be tolerating it well. No concerns at this time. Objective Vitals Vital Signs Date Time Temp Pulse Resp B/P (MAP) Pulse Ox O2 Delivery O2 Flow Rate FiO2 12/31/16 06:00 62 12/31/16 04:30 99 40 12/31/16 04:00 98.8 60 16 94/51 (65) 92 12/31/16 04:00 60 12/31/16 02:00 61 12/31/16 00:00 98.4 67 17 108/77 (87) 86 12/31/16 00:00 67 12/30/16 23:45 96 40 12/30/16 22:00 62 12/30/16 20:23 97 40 12/30/16 20:00 98.5 59 17 91/54 (66) 93 12/30/16 20:00 59 12/30/16 19:00 93 T-Piece 5.00 40 Humidified 12/30/16 18:00 65 12/30/16 16:00 99.4 64 25 111/58 (75) 87 12/30/16 16:00 64 12/30/16 14:01 92 40 12/30/16 14:00 62 12/30/16 13:53 19 12/30/16 12:00 98.7 69 21 128/68 (88) 92 12/30/16 12:00 69 12/30/16 10:00 65 I/O 12/30/16 12/30/16 12/30/16 12/31/16 12/31/16 12/31/16 07:00 15:00 23:00 07:00 15:00 23:00 Intake Total 818 ml 554 ml 605 ml Output Total 2125 ml 425 ml 950 ml Balance -1307 ml 129 ml -345 ml Tube Feeding 643 ml 554 ml 455 ml Other 175 ml 150 ml Output Urine Total 1525 ml 425 ml 800 ml Stool Total 600 ml 150 ml Result Diagram: 12/29/16 0343 12/30/16 0353 Imaging Last Impressions Chest X-Ray 12/30/16 0600 Signed Impressions: Service Date/Time: Friday, December 30, 2016 04:25 - CONCLUSION: No significant interval change. Persistent bilateral lower lung zone consolidation versus atelectasis and pleural effusions. Austin Funes MD Chest Ultrasound 12/27/16 0000 Signed Impressions: Service Date/Time: December 19:04 - CONCLUSION: Minimal right pleural effusion and the patient was not marked for thoracentesis. Jhonathan Dietz MD Abdomen X-Ray 12/19/16 0000 Signed Impressions: Service Date/Time: Monday, December 19, 2016 07:55 - CONCLUSION: Mildly dilated loops of small and large bowel characteristic of ileus. Fito Joshua MD Abdomen/Pelvis CT 12/15/16 0000 Signed Impressions: Service Date/Time: Thursday, December 15, 2016 10:50 - CONCLUSION: 1. Distended bowel especially the small bowel and the cecum. This is nonspecific. A transition point is not seen. This could relate to ileus. Oral contrast does extend to the rectum. 2. Bibasilar areas of consolidation at the lung bases. There also is a possible small pneumothorax on the right. The patient does have a right chest tube in place. 3. G-tube. 4. Distended gallbladder. 5. Increased soft tissue density in the left lateral abdominal wall which could be from prior trauma or edema. Jayson Soto MD Lower Extremity Ultrasound 12/09/16 0000 Signed Impressions: Service Date/Time: Friday, December 09, 2016 17:13 - CONCLUSION: 1. No evidence of DVT 2. Large complex mass in the pump to fossa characteristic of a hematoma. Joni Barfield MD Cervical Spine MRI 12/03/16 0000 Signed Impressions: Service Date/Time: Saturday, December 03, 2016 13:13 - CONCLUSION: Severely limited exam. I believe there is increased signal in the cervical cord mid C3 to mid C5. Ward Kim MD FACR Brain MRI 12/03/16 0000 Signed Impressions: Service Date/Time: Saturday, December 03, 2016 13:13 - CONCLUSION: 1. There is a small area of abnormal T2 signal in the left frontal cortex this is unchanged from the previous examination dated 11/26/16. This is nonspecific in appearance on the MRI. Differential considerations would be a small area of gliosis versus an old area of contusion. Follow up examination in 6 months to document stability would be warranted. 2. No findings to indicate acute cortical infarction are identified. Román Kim MD Gastrostomy Tube Placement 11/30/16 0000 Signed Impressions: Service Date/Time: Wednesday, November 30, 2016 12:22 - CONCLUSION: Uncomplicated gastrostomy tube placement as above. Jorge Jolly MD Liver Ultrasound 11/09/16 0000 Signed Impressions: Service Date/Time: Wednesday, November 09, 2016 13:58 - CONCLUSION: Sono dense liver without duct dilatation. 4 mm common duct. Wadr Kim MD FACR Chest CT 11/06/16 0000 Signed Impressions: Service Date/Time: Sunday, November 06, 2016 11:24 - CONCLUSION: 1. Dense bilateral posterior lower lobe airspace consolidation consistent with aspiration versus less likely pneumonia. 2. Linear consolidation in the right middle lobe consistent with atelectasis versus aspiration. 3. Trace left and small right pleural effusions. 4. Support lines and tubes in good position. 5. Prominent coronary artery calcifications. Nico Vaughan MD Head CT 11/05/16 0000 Signed Impressions: Service Date/Time: Saturday, November 05, 2016 21:43 - CONCLUSION: 1. No acute intracranial abnormalities. Pansinus fluid opacification. Cristofer De Santiago MD Carotid Artery Ultrasound 10/25/16 0000 Signed Impressions: Service Date/Time: September 08:27 - CONCLUSION: Mild to moderate plaque in both carotid systems with less than 40%% diameter stenosis by velocity criteria. Jhonathan Dietz MD CT Angiography 10/25/16 0000 Signed Impressions: Service Date/Time: September 06:12 - CONCLUSION: 1. Negative for pulmonary embolism. 2. There is a fairly large area of masslike consolidation in the medial right lung involving posterior segment right upper lobe and medial aspect of right lower lobe. There is associated right hilar and mediastinal adenopathy measuring up to 2.1 cm. Differential diagnosis includes pneumonia or underlying lung neoplasm. Close followup imaging recommended after treatment for pneumonia, to assess for underlying mass. Cristofer De Santiago MD Objective Remarks GENERAL: 56-year-old male, on t-piece appears tired SKIN: Warm and dry. Positive intertrigo EYES: EOM appear intact ENT: No nasal bleeding or discharge. NECK: Trachea midline. No JVD. Tracheostomy site has some yellow secretions surrounding CARDIOVASCULAR: normal rate, regular rhythm. RESPIRATORY: equal chest rise. unlabored. coarse breath sounds GASTROINTESTINAL: Abdomen soft, obese, distended. PEG tube site is clean dry and intact MUSCULOSKELETAL: Extremities with trace lower extremity. No obvious deformities. NEUROLOGICAL: Eyes are open. able to squeeze my hands, moves his lower extremities some. Nods head and is able to mumble words when asked. A/P Assessment and Plan Assessment and Plan Neuro/Psych: Metabolic encephalopathy - resolved. CIM/SHEFALI S/p Neuromuscular paralysis for Prone therapy Syncope Depression MRI C-spine showing increased signals C3-C5 region. Dr Riggins reviewed MRI spine- not sure about increased signal in cord, could be cervical hyperextension injury, from intubation according to him. Unable to do flexion- extension films of the C-spine (trached patient). 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 Haloperidol 5mg iv q4h prn for agitation. Escitalopram 10 mg qhs or depression from 12/07/16. MRI brain 11/26: Small focal signal abnormality in the superior medial left frontal lobe. Could be sequela from prior insult such as a contusion or small infarct. No acute infarct MRI brain 12/[address] on admission revealed no acute intracranial findings, CT brain 11/05- no acute findings. opacification of sinuses. EEG 11/20: No seizure activity. EEG 11/09: severe encephalopathy PT/OT for range of motion, up to stretcher chair as tolerated CV: Hypotension-resolved Atrial fib/ flutter with RVR - rate controlled. Hypertension on amiodarone to 200mg po daily for maintenance dose. digoxin 0.125 mg po daily. recheck level 01/04 and n95ibiv as long as stable. PO Diltiazem 90 mg PO q6hr, metoprolol 50mg Q6 Coumadin and heparin 12/10 held due to left popliteal fossa hematoma. now on lovenox for prophylactic dose since 12/24. given high risk for bleeding complication and low CHADS-VaSC risk, risk/benefit at this time in favor of holding full anticoagulation. Echo 10/25 EF 60-65%. Repeat echo with bubble study: 11/22: No shunt seen Resp: Acute, now chronic hypoxemic Respiratory failure s/p trach 11/27 Spontaneous Right sided PTX secondary to barotrauma - resolved. COPD exacerbation - resolved. Pneumonia most likely community-acquired - resolved. Obesity hypoventilation syndrome Tobacco use disorder albuterol aerosols every 2 hours PRN. Ventilator bundle tolerating intermittent PSV. Budesonide 0.5 mg/2 mL aerosols twice a day. Prednisone 10 mg daily continue to wean s/p trach 11/[address] Martin #8 [place]. Pulmonary following. appreciate assistance. s/p 20Fr CT placed for right PTX 11/23, monitor CT drainage. d/c chest tube . CT pulmonary angio revealed no pulmonary embolus. Masslike consolidation in the posterior right upper lobe and medial right lower lobe. Lymphadenopathy to 1 cm right hilum and subcarinal. Atelectasis left lower lobe. Discontinued Prone therapy 11/02/16. slow wean of mechanical ventilation. continue t-piece as tolerated. GI: Ileus - resolved. Morbid Obesity Elevated LFT's- now within normal. PEG tube placement 11/30. US liver: No ductal dilatation tube feeds with vital high-protein currently at 50 cc/hr. Metoclopramide 10 mg every 6 hours, change to PO. No Cholecystostomy tube recommended by Dr. Nguyen. Recommended advance diet as tolerated Famotidine 20 milligrams mg twice a day for GI prophylaxis /renal/FEN: Hyponatremia Hypopotassemia Diarrhea: C diff is negative. on lactinex and imodium. Monitor lytes Monitor renal function, I/O's, electrolytes replacement per protocol. Currently on sodium chloride 1 g every 12 hours Endo: Hyperglycemia SSI Q6h with Regular Insulin mild protocol for glycemic control. Previously insulin detemir 62 units twice a day. now on 8 units twice a day. Monitor BS and adjust levemir dose as needed . Heme: Normocytic anemia - stable. Leukocytosis L popliteal fossa hematoma - stable. Monitor closely for compartment syndrome ID: Severe sepsis - resolved. HCAP - resolved. Placed back on piperacillin/tazobactam, d/c'd 12/20. Discontinued vancomycin and micafungin by ID, WBC trending down ID Amanda Haas, F/U ríos culture, C Diff- NGTD. ABX completed 12/11. (piperacillin/tazobactam and sulfamethoxazole/ trimethoprim 800/160 2 tablets 3 times a day) Sputum: Klebsiella, Stenotrophomonas and Pseudomonas 11/27 Sputum cx 11/23: Kleb, Pseudomonas, s/p (ceftriaxone and fluconazole course). ID is following-Dr. Patel s/p ceftriaxone 11/02-11/09 for Enterobacter pneumonia. Repeat sputum Klebsiella sensitive to Rocephin 10/29/16-Enterobacter in sputum, 11/06/16, 11/10 sputum- Klebsiella Urine Legionella and pneumococcal antigens negative and influenza negative C-diff PCR is negative Observe clinically off abx. Trend fever curve. GI, famotidine. DVT - on lovenox. s/pIV heparin gtt/Coumadin DCd 12/10 due to left popliteal hematoma. Given bleeding complications with low CHADS-VaSC risk, risk/benefit in favor of holding full anticoagulation. 11/09 Doppler US LE negative for DVT Palliative care is following Patient with slow progression. On T-piece. Pulmonary following. Discharge Planning continue care in ICU Perla Watson MD Dec 31, 2016 08:21
[2016-12-31] MEDS: AMIODARONE 200 MG TAB OG-TUBE SCH (08:24)
[2016-12-31] MEDS: SODIUM CHLORIDE 1 GRAM TAB PO SCH ×2 (08:24→21:43)
[2016-12-31] MEDS: LISINOPRIL 10 MG TAB PO SCH (08:25)
[2016-12-31] MEDS: predniSONE 20 MG TAB PO SCH (08:25)
[2016-12-31] MEDS: DIGOXIN 0.125 MG TAB PO SCH (08:26)
[2016-12-31] MEDS: ARTIFICIAL TEARS OPTH OINT 3.5 APPLIC/3.5 GM TUBO EACH EYE SCH ×2 (08:27→21:44)
[2016-12-31] MEDS: SODIUM CHLORIDE 0.9% FLUSH 10 ML FLUSH IVF SCH (08:27)
[2016-12-31] MEDS: INSULIN DETEMIR 100 UNITS/ML VIAL SQ SCH ×2 (08:27→21:44)
[2016-12-31] MEDS: RESP: ALBUTEROL 2.5 MG/IPRATROPIUM 0.5 MG NEB (SCH) NEB ×2 (08:56→15:28)
[2016-12-31] MEDS: RESP: BUDESONIDE 0.5 MG/2 ML NEB NEB SCH ×2 (08:56→20:05)
--- NOTE | 2016-12-31 11:36 | PD.PN.STU ---
Subjective Remarks Patient was awake and alert during encounter. Communication was difficult due to T Bar. He is on T Bar FiO2 50%. He still complains of some leg pains, but there is improvement in the level of edema. He is able to move, minimally, all 4 extremities against gravity. States he still has difficulty sleeping. Denies cough, chest pains, or SOB at rest. Objective Vitals Vital Signs Date Time Temp Pulse Resp B/P (MAP) Pulse Ox O2 Delivery O2 Flow Rate FiO2 12/31/16 08:22 95 T-piece 50 12/31/16 08:00 66 12/31/16 08:00 99.3 66 18 107/59 (75) 97 12/31/16 07:00 86 Bi-Pap 10.00 40 12/31/16 06:00 62 12/31/16 04:30 99 40 12/31/16 04:00 98.8 60 16 94/51 (65) 92 12/31/16 04:00 60 12/31/16 02:00 61 12/31/16 00:00 98.4 67 17 108/77 (87) 86 12/31/16 00:00 67 12/30/16 23:45 96 40 12/30/16 22:00 62 12/30/16 20:23 97 40 12/30/16 20:00 98.5 59 17 91/54 (66) 93 12/30/16 20:00 59 12/30/16 19:00 93 T-Piece 5.00 40 Humidified 12/30/16 18:00 65 12/30/16 16:00 99.4 64 25 111/58 (75) 87 12/30/16 16:00 64 12/30/16 14:01 92 40 12/30/16 14:00 62 12/30/16 13:53 19 12/30/16 12:00 98.7 69 21 128/68 (88) 92 12/30/16 12:00 69 I/O 12/30/16 12/30/16 12/30/16 12/31/16 12/31/16 12/31/16 07:00 15:00 23:00 07:00 15:00 23:00 Intake Total 818 ml 554 ml 605 ml Output Total 2125 ml 425 ml 950 ml Balance -1307 ml 129 ml -345 ml Tube Feeding 643 ml 554 ml 455 ml Other 175 ml 150 ml Output Urine Total 1525 ml 425 ml 800 ml Stool Total 600 ml 150 ml PHYSICAL EXAM: GENERAL: Obese middle-aged white male who is a awake and sitting in bed. He has edema 2+ of the extremities. HEENT: Head normocephalic. Pupils are reactive. Sclerae are injected. NECK: Supple. No bruits or thyroid enlargement. No venous distension. CHEST: Equal movements with diminished breath sounds at the bases, more so on the right side. Occ Crackles. HEART: The heart sounds are irregular. S1 and S2 with no definite murmur. ABDOMEN: Obese, protuberant. No masses, no organomegaly. EXTREMITIES: Mild edema. Decreased peripheral pulses. Reflexes 1+. The patient has some weakness of his lower extremities.and left arm. 2 + edema of all limbs. SKIN: Dry and scaly. RECTAL: Exam is deferred. Result Diagram: 12/29/16 0343 12/30/16 0353 A/P Assessment and Plan IMPRESSION 1. Resolving respiratory failure. 2. Basilar pneumonia and hypoxemia. 3. COPD and chronic bronchitis. 4. Possible obstructive sleep apnea syndrome. 5. Hypertension. 6. Atrial fibrillation and CHF. 7. Severe sepsis, resolved. Plan : 1. Place on BIPAP 12/5 CM FIO2 35 % at HS 2. Continue Diuretics. 3. Continue Prednisone 10 mg daily. 4. T bar 35 % daytime 7 am to 7 pm. 5. PT Evaluation. Look for long-term rehab placement. 6. Duoneb nebs qid. 7. Tube feeds at 55 CC. 8. Continue mucomyst 20 % 2 CC with nebs 9. CBC and BMP in a.m. Khris Yap Dec 31, 2016 11:36
--- NOTE | 2016-12-31 13:05 | HHI.PR ---
Subjective Remarks Alert and Oriented. C/O Weakness and edema On a T Bar FIO2 50 % .CXR shows basal infiltrates Has Loose stools. Objective Vital Signs Date Time Temp Pulse Resp B/P (MAP) Pulse Ox O2 Delivery O2 Flow Rate FiO2 12/31/16 08:22 95 T-piece 50 12/31/16 08:00 66 12/31/16 08:00 99.3 66 18 107/59 (75) 97 12/31/16 07:00 86 Bi-Pap 10.00 40 12/31/16 06:00 62 12/31/16 04:30 99 40 12/31/16 04:00 98.8 60 16 94/51 (65) 92 12/31/16 04:00 60 12/31/16 02:00 61 12/31/16 00:00 98.4 67 17 108/77 (87) 86 12/31/16 00:00 67 12/30/16 23:45 96 40 12/30/16 22:00 62 12/30/16 20:23 97 40 12/30/16 20:00 98.5 59 17 91/54 (66) 93 12/30/16 20:00 59 12/30/16 19:00 93 T-Piece 5.00 40 Humidified 12/30/16 18:00 65 12/30/16 16:00 99.4 64 25 111/58 (75) 87 12/30/16 16:00 64 12/30/16 14:01 92 40 12/30/16 14:00 62 12/30/16 13:53 19 I/O 12/30/16 12/30/16 12/30/16 12/31/16 12/31/16 12/31/16 07:00 15:00 23:00 07:00 15:00 23:00 Intake Total 818 ml 554 ml 605 ml Output Total 2125 ml 425 ml 950 ml Balance -1307 ml 129 ml -345 ml Tube Feeding 643 ml 554 ml 455 ml Other 175 ml 150 ml Output Urine Total 1525 ml 425 ml 800 ml Stool Total 600 ml 150 ml Result Diagram: 12/29/16 0343 12/30/16 0353 Objective Remarks GENERAL: Obese middle-aged white male who is a awake. He has edema 2+ of the extremities. HEENT: Head normocephalic. Pupils are reactive. Sclerae are clear . NECK: Supple. No bruits or thyroid enlargement. No venous distension. CHEST: Equal movements with diminished breath sounds at the bases, and Occ Crackles . HEART: The heart sounds are irregular. S1 and S2 with no definite murmur. ABDOMEN: Obese, protuberant. No masses, no organomegaly. EXTREMITIES: Mild edema. Decreased peripheral pulses. Reflexes 1+. The patient has some weakness of his lower extremities.and left arm. 2 + edema of all limbs. SKIN: Dry and scaly. RECTAL: Exam is deferred. Assessment and Plan Assessment and Plan IMPRESSION 1. Resolving respiratory failure. 2. Basilar pneumonia and hypoxemia. 3. COPD and chronic bronchitis. 4. Possible obstructive sleep apnea syndrome. 5. Hypertension. 6. Atrial fibrillation and CHF. 7. Severe sepsis, resolved. Plan : 1.Place on BIPAP 12/5 CM FIO2 30 % at HS 2. Continue Diuretics. 3. Cont Prednisone 10 mg daily. 4. T bar 35 % daytime 7 am to 7 pm. 5. PT Evaluation.Up with help 6. Duoneb nebs qid. 7. Tube feeds at 55 CC. 8. Add mucomyst 20 % 2 CC with nebs 9. CBC,BMP in am Laura Haile MD Dec 31, 2016 13:05
[2016-12-31] MEDS: FAMOTIDINE 20 MG TAB NG SCH ×2 (13:42→21:44)
[2016-12-31] MEDS: LACTOBACILLUS ACIDOPHILUS TAB PO SCH ×2 (13:42→21:44)
[2016-12-31] MEDS: ENOXAPARIN SODIUM 40 MG/0.4 ML SYRINGE SQ SCH (13:43)
[2016-12-31] MEDS: REMOVE OLD FENTANYL PATCH T-DERMAL SCH (14:00)
--- NOTE | 2016-12-31 15:52 | PD.WCN.NOT ---
Wound Consult Description: Consult received from Doctor Arredondo for wound management of sacrum Communicated with: ANEL Saleem [facility], ANEL Knowles charge nurse [facility], and call placed to Doctor Watson for orders Recommendation: 1.Please cleanse wound to Sacrococcygeal area with normal saline and apply Dakin 's 0.125% or 1/4 strength moistened gauze packed into wound bed and cover with dry gauze and ABD pad, Secure dressing with paper tape. Please apply skin prep to periwound before applying tape. Change dressing BID. 2.Please apply nystatin powder to fungal rash on bilateral buttocks. 3 Cleanse wound to R posterior thigh with normal saline and apply adhesive foam dressing. Please change dressing every 3 days or PRN if saturated or dislodged. 4.Please obtain wound culture of sacrococcygeal wound with next dressing change. 5.Order Wave bed from [facility]. 6. Continue to turn patient every 2 hours to offload pressure from sacrococcygeal area. 7. Reconsult infectious disease Additional Information: Patient seen on [facility] for evaluation of wound management of sacrum around 1440. Patient is noted laying on Charlee low airloss bed. Turned patient to L side with the assistance of ANEL Saleem and senior grant writer to reveal open wound to to sacrococcygeal area. Wound measures 4cm x 3cm x ~3.2cm. ~50% yellow loosely adherent slough is noted at the base, with ~50% pink tissue. Presence of 50% slough indicates unstageable pressure injury to sacrococcygeal area.Wound has a foul odor. Periwound is erythematous, blanchable with thickened firm skin at 9 o'clock and at 4 o'clock. Bilateral buttocks presents with satellite lesions surround large area of denuded blanching erythematous skin. Minimal Sanguinous drainage is noted from wound bed. Wound has round shape with well defined wound margins that are steep and attached.Cleansed wound with normal saline and applied saline moistened 4x4 gauze pad to wound bed packed and cover with dry 4x4 gauze , secured with ABD pad and tape. Wound noted on posterior R thigh presents as a shallow full thickness wound, possibly related to shearing. Cleansed wound and left open to air for now. ANEL Saleem to cover wound with adhesive foam dressing, when supplies obtained. Wound bed presents with ~50% red non granulation tissue and ~50% white tissue. Wound is not actively draining and appears to moist, without foul odor. Wound margins are uneven and jagged. Patient positioned off bottom to offload pressure from sacrococcygeal.Wound care recommendations noted above. Miryam Mcgovern [facility] Dec 31, 2016 15:52
[2016-12-31] MEDS: SODIUM CHLORIDE 0.9% FLUSH 10 ML FLUSH IVF PRN (21:42)
[2016-12-31] MEDS: SODIUM HYPOCHLORITE 0.125% 500 ML BTL TOPICAL SCH (21:42)
[2016-12-31] MEDS: ESCITALOPRAM OXALATE 10 MG TAB PO SCH (21:43)
[2016-12-31] MEDS: HALOPERIDOL LACTATE 5 MG/ML AMP IV PUSH PRN (23:19)
[2017-01-01] VITALS (24 sets, daily range): BP systolic 113–133; BP diastolic 59–68; PULSE 68–96; RESP 15–25; TEMP 98–99; O2SAT 90–100
[2017-01-01] MEDS: INSULIN NovoLIN REGULAR SUPPLEMENTAL SCALE SQ SCH ×4 (02:00→20:00)
[2017-01-01] MEDS: RESP: ACETYLCYSTEINE 20% 4 ML NEB NEB SCH ×4 (03:09→19:51)
[2017-01-01] MEDS: RESP: ALBUTEROL 2.5 MG/3 ML NEB (PRN) NEB ×3 (03:09→19:51)
[2017-01-01] MEDS: CHLORHEXIDINE GLUCONATE 2 % 1 PACK (2 CLOTHS) TOP SCH (03:40)
[2017-01-01] MEDS: METOCLOPRAMIDE HCL SYRUP 10 MG/10 ML UDC PO SCH ×3 (06:09→21:55)
[2017-01-01] MEDS: DILTIAZEM HCL 90 MG TAB PO SCH ×3 (06:09→18:49)
[2017-01-01] MEDS: METOPROLOL TARTRATE 50 MG TAB PO SCH ×3 (06:09→18:49)
[2017-01-01 06:36] LABS: APTT (PATIENT) 26.9 SEC (24.3-30.1)
[2017-01-01 06:43] LABS: AUTOMATED NEUTROPHIL # 11.9 TH/MM3 (1.8-7.7); BASOPHIL # 0.2 TH/MM3 (0-0.2); BASOPHIL % 1.2 % (0.0-2.0); EOSINOPHIL # 0.3 TH/MM3 (0-0.4); HEMATOCRIT 30.1 % (39.0-51.0); LYMPH % 15.8 % (9.0-44.0); LYMPHOCYTE # 2.6 TH/MM3 (1.0-4.8); MEAN CELL VOLUME 93.7 FL (80.0-100.0); MEAN CORPUSCULAR HEMOGLOBIN 31.1 PG (27.0-34.0); MEAN CORPUSCULAR HGB CONC 33.2 % (32.0-36.0); MONO % 8.7 % (0.0-8.0); NEUT % 72.3 % (16.0-70.0); PLATELET COUNT 404 TH/MM3 (150-450); RED BLOOD COUNT 3.21 MIL/MM3 (4.50-5.90); RED CELL DISTRIBUTION WIDTH 15.5 % (11.6-17.2); WHITE BLOOD COUNT 16.4 TH/MM3 (4.0-11.0)
[2017-01-01 06:45] LABS: HEMO FLAGS AUTO DIFF
[2017-01-01 06:47] LABS: ANION GAP 7 MEQ/L (5-15); BICARBONATE 28.7 MEQ/L (21.0-32.0); BLOOD UREA NITROGEN 14 MG/DL (7-18); CHLORIDE 99 MEQ/L (98-107); GLOMERULAR FILTRATION RATE 690 ML/MIN (>89); POTASSIUM 3.5 MEQ/L (3.5-5.1); SODIUM (NA) 135 MEQ/L (136-145)
[2017-01-01] MEDS: CHLORHEXIDINE 0.12% (ORAL KIT) 15 ML CUP MT SCH ×2 (08:00→20:00)
--- NOTE | 2017-01-01 09:04 | HHI.PR ---
Subjective Remarks Pt continues to have pain in his legs. no worsening SOB. Pt quiet and doesn't have any other complaints Discussed w RN, no concerns at this time Objective Vitals Vital Signs Date Time Temp Pulse Resp B/P (MAP) Pulse Ox O2 Delivery O2 Flow Rate FiO2 01/01/17 06:00 73 01/01/17 04:18 94 40 01/01/17 04:00 74 01/01/17 04:00 99.0 74 15 113/59 (77) 90 01/01/17 03:09 98 40 01/01/17 02:00 68 01/01/17 00:00 98.8 78 18 129/62 (84) 96 01/01/17 00:00 78 12/31/16 23:15 97 50 12/31/16 22:00 75 12/31/16 21:00 114/60 (78) 12/31/16 20:00 64 12/31/16 20:00 94 70 12/31/16 20:00 98.9 64 16 95 12/31/16 20:00 94 BiPAP 75 12/31/16 19:00 84 Bi-Pap 10.00 40 12/31/16 18:00 69 12/31/16 16:00 99.6 67 17 98/50 (66) 94 12/31/16 16:00 99.6 12/31/16 16:00 67 12/31/16 14:00 80 12/31/16 12:00 74 12/31/16 12:00 99.4 74 18 118/62 (80) 100 12/31/16 10:00 70 I/O 12/31/16 12/31/16 12/31/16 01/01/17 01/01/17 01/01/17 07:00 15:00 23:00 07:00 15:00 23:00 Intake Total 605 ml 810 ml 490 ml Output Total 950 ml 750 ml 450 ml Balance -345 ml 60 ml 40 ml IV Total 10 ml Tube Feeding 455 ml 650 ml 430 ml Tube Irrigant 150 ml Other 150 ml 60 ml Output Urine Total 800 ml 750 ml 350 ml Stool Total 150 ml 100 ml Result Diagram: 01/01/1761401/01/17614 Imaging Last Impressions Chest X-Ray 12/30/16599 Signed Impressions: Service Date/Time: Friday, December 30, 2016 04:25 - CONCLUSION: No significant interval change. Persistent bilateral lower lung zone consolidation versus atelectasis and pleural effusions. Austin Funes MD Chest Ultrasound 12/27/16 0000 Signed Impressions: Service Date/Time: December 19:04 - CONCLUSION: Minimal right pleural effusion and the patient was not marked for thoracentesis. Jhonathan Dietz MD Abdomen X-Ray 12/19/16 0000 Signed Impressions: Service Date/Time: Monday, December 19, 2016 07:55 - CONCLUSION: Mildly dilated loops of small and large bowel characteristic of ileus. Fito Joshua MD Abdomen/Pelvis CT 12/15/16 0000 Signed Impressions: Service Date/Time: Thursday, December 15, 2016 10:50 - CONCLUSION: 1. Distended bowel especially the small bowel and the cecum. This is nonspecific. A transition point is not seen. This could relate to ileus. Oral contrast does extend to the rectum. 2. Bibasilar areas of consolidation at the lung bases. There also is a possible small pneumothorax on the right. The patient does have a right chest tube in place. 3. G-tube. 4. Distended gallbladder. 5. Increased soft tissue density in the left lateral abdominal wall which could be from prior trauma or edema. Jayson Soto MD Lower Extremity Ultrasound 12/09/16 0000 Signed Impressions: Service Date/Time: Friday, December 09, 2016 17:13 - CONCLUSION: 1. No evidence of DVT 2. Large complex mass in the pump to fossa characteristic of a hematoma. Joni Barfield MD Cervical Spine MRI 12/03/16 0000 Signed Impressions: Service Date/Time: Saturday, December 03, 2016 13:13 - CONCLUSION: Severely limited exam. I believe there is increased signal in the cervical cord mid C3 to mid C5. Ward Kim MD FACR Brain MRI 12/03/16 0000 Signed Impressions: Service Date/Time: Saturday, December 03, 2016 13:13 - CONCLUSION: 1. There is a small area of abnormal T2 signal in the left frontal cortex this is unchanged from the previous examination dated 11/26/16. This is nonspecific in appearance on the MRI. Differential considerations would be a small area of gliosis versus an old area of contusion. Follow up examination in 6 months to document stability would be warranted. 2. No findings to indicate acute cortical infarction are identified. Román Kim MD Gastrostomy Tube Placement 11/30/16 Signed Impressions: Service Date/Time: Wednesday, November 30, 2016 12:22 - CONCLUSION: Uncomplicated gastrostomy tube placement as above. Jorge Jolly MD Liver Ultrasound 11/09/16 Signed Impressions: Service Date/Time: Wednesday, November 09, 2016 13:58 - CONCLUSION: Sono dense liver without duct dilatation. 4 mm common duct. Ward Kim MD FACR Chest CT 11/06/16 Signed Impressions: Service Date/Time: Sunday, November 06, 2016 11:24 - CONCLUSION: 1. Dense bilateral posterior lower lobe airspace consolidation consistent with aspiration versus less likely pneumonia. 2. Linear consolidation in the right middle lobe consistent with atelectasis versus aspiration. 3. Trace left and small right pleural effusions. 4. Support lines and tubes in good position. 5. Prominent coronary artery calcifications. Nico Vaughan MD Head CT 11/05/16 Signed Impressions: Service Date/Time: Saturday, November 05, 2016 21:43 - CONCLUSION: 1. No acute intracranial abnormalities. Pansinus fluid opacification. Cristofer De Santiago MD Carotid Artery Ultrasound 10/25/16 Signed Impressions: Service Date/Time: September 08:27 - CONCLUSION: Mild to moderate plaque in both carotid systems with less than 40%% diameter stenosis by velocity criteria. Jhonathan Dietz MD CT Angiography 10/25/16 Signed Impressions: Service Date/Time: September 06:12 - CONCLUSION: 1. Negative for pulmonary embolism. 2. There is a fairly large area of masslike consolidation in the medial right lung involving posterior segment right upper lobe and medial aspect of right lower lobe. There is associated right hilar and mediastinal adenopathy measuring up to 2.1 cm. Differential diagnosis includes pneumonia or underlying lung neoplasm. Close followup imaging recommended after treatment for pneumonia, to assess for underlying mass. Cristofer De Santiago MD Objective Remarks GENERAL: 56-year-old male, on t-piece appears tired SKIN: sacral coccygeal 3x4 cm wound, deep, with some purulent drainage and foul odor. EYES: EOM appear intact ENT: No nasal discharge. NECK: Trachea midline. No JVD. Tracheostomy site has some yellow secretions surrounding CARDIOVASCULAR: normal rate, regular rhythm. RESPIRATORY: equal chest rise. unlabored. coarse breath sounds GASTROINTESTINAL: Abdomen soft, obese, distended. PEG tube in place MUSCULOSKELETAL: Extremities with trace edema. No obvious deformities. NEUROLOGICAL: Eyes are open. able to squeeze my hands, moves his lower extremities some. Nods head and is able to mumble words when asked. A/P Assessment and Plan Assessment and Plan Neuro/Psych: Metabolic encephalopathy - resolved. CIM/SHEFALI S/p Neuromuscular paralysis for Prone therapy Syncope Depression MRI C-spine showing increased signals C3-C5 region. Dr Riggins reviewed MRI spine- not sure about increased signal in cord, could be cervical hyperextension injury, from intubation according to him. Unable to do flexion- extension films of the C-spine (trached patient). 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 Haloperidol 5mg iv q4h prn for agitation. Escitalopram 10 mg qhs or depression from 12/07/16. MRI brain 11/26: Small focal signal abnormality in the superior medial left frontal lobe. Could be sequela from prior insult such as a contusion or small infarct. No acute infarct MRI brain 12/[address] on admission revealed no acute intracranial findings, CT brain 11/05- no acute findings. opacification of sinuses. EEG 11/20: No seizure activity. EEG 11/09: severe encephalopathy PT/OT for range of motion, up to stretcher chair as tolerated CV: Hypotension-resolved Atrial fib/ flutter with RVR - rate controlled. Hypertension on amiodarone to 200mg po daily for maintenance dose. digoxin 0.125 mg po daily. recheck level 01/04 and [id number] as long as stable. PO Diltiazem 90 mg PO q6hr, metoprolol 50mg Q6 Coumadin and heparin 12/10 held due to left popliteal fossa hematoma. now on lovenox for prophylactic dose since 12/24. given high risk for bleeding complication and low CHADS-VaSC risk, risk/benefit at this time in favor of holding full anticoagulation. Echo 8/31 EF 60-65%. Repeat echo with bubble study: 11/22: No shunt seen Resp: Acute, now chronic hypoxemic Respiratory failure s/p trach 11/27 Spontaneous Right sided PTX secondary to barotrauma - resolved. COPD exacerbation - resolved. Pneumonia most likely community-acquired - resolved. Obesity hypoventilation syndrome Tobacco use disorder albuterol aerosols every 2 hours PRN. Ventilator bundle tolerating intermittent PSV. Budesonide 0.5 mg/2 mL aerosols twice a day. Prednisone 10 mg daily continue to wean s/p trach 11/[address] Martin #8 [place]. Pulmonary following. appreciate assistance. s/p 20Fr CT placed for right PTX 11/23, monitor CT drainage. d/c chest tube . CT pulmonary angio revealed no pulmonary embolus. Masslike consolidation in the posterior right upper lobe and medial right lower lobe. Lymphadenopathy to 1 cm right hilum and subcarinal. Atelectasis left lower lobe. Discontinued Prone therapy 11/02/16. slow wean of mechanical ventilation. continue t-piece as tolerated. GI: Ileus - resolved. Morbid Obesity Elevated LFT's- now within normal. PEG tube placement 11/30. US liver: No ductal dilatation tube feeds with vital high-protein currently at 50 cc/hr. Metoclopramide 10 mg every 6 hours, change to PO. No Cholecystostomy tube recommended by Dr. Nguyen. Recommended advance diet as tolerated Famotidine 20 milligrams mg twice a day for GI prophylaxis /renal/FEN: Hyponatremia Hypopotassemia Diarrhea: C diff is negative. on lactinex and imodium. Monitor lytes Monitor renal function, I/O's, electrolytes replacement per protocol. Currently on sodium chloride 1 g every 12 hours Endo: Hyperglycemia SSI Q6h with Regular Insulin mild protocol for glycemic control. Previously insulin detemir 62 units twice a day. now on 8 units twice a day. Monitor BS and adjust levemir dose as needed . Heme: Normocytic anemia - stable. Leukocytosis L popliteal fossa hematoma - stable. Monitor closely for compartment syndrome ID: Severe sepsis - resolved. HCAP - resolved. Leukocytosis Per psychiatric aide, pt has a sacrococcygeal Wound measuring 4cm x 3cm x ~3.2cm. ~ 50% yellow loosely adherent slough is noted at the base, with ~50% pink tissue. I did evaluate the wound. Wound is foul smelling on exam today w some yellow/ purulent discharge. Wound cultures have been obtain. ID has been reconsulted. Wound care physician also has been consulted. Placed back on piperacillin/tazobactam, d/c'd 12/20. Discontinued vancomycin and micafungin by ID, WBC trending down ID Amanda Haas, F/U ríos culture, C Diff- NGTD. ABX completed 12/11. (piperacillin/tazobactam and sulfamethoxazole/ trimethoprim 800/160 2 tablets 3 times a day) Sputum: Klebsiella, Stenotrophomonas and Pseudomonas 11/27 Sputum cx 11/23: Kleb, Pseudomonas, s/p (ceftriaxone and fluconazole course). ID is following-Dr. Patel s/p ceftriaxone 11/02-11/09 for Enterobacter pneumonia. Repeat sputum Klebsiella sensitive to Rocephin 10/29/16-Enterobacter in sputum, 11/06/16, 11/10 sputum- Klebsiella Urine Legionella and pneumococcal antigens negative and influenza negative C-diff PCR is negative Observe clinically off abx. Trend fever curve. GI, famotidine. DVT - on lovenox. s/pIV heparin gtt/Coumadin DCd 12/10 due to left popliteal hematoma. Given bleeding complications with low CHADS-VaSC risk, risk/benefit in favor of holding full anticoagulation. 11/09 Doppler US LE negative for DVT Palliative care is following Patient with slow progression. On T-piece. Pulmonary following. Discharge Planning continue care in ICU Wound cultures have been obtain. f/u on them. ID has been reconsulted. Wound care physician also has been consulted. Perla Watson MD Jan 01, 2017 09:04
[2017-01-01] MEDS: FAMOTIDINE 20 MG TAB NG SCH ×2 (09:16→21:56)
[2017-01-01] MEDS: LISINOPRIL 10 MG TAB PO SCH (09:16)
[2017-01-01] MEDS: LACTOBACILLUS ACIDOPHILUS TAB PO SCH ×2 (09:17→21:55)
[2017-01-01] MEDS: predniSONE 20 MG TAB PO SCH (09:17)
[2017-01-01] MEDS: AMIODARONE 200 MG TAB OG-TUBE SCH (09:17)
[2017-01-01] MEDS: INSULIN DETEMIR 100 UNITS/ML VIAL SQ SCH ×2 (09:17→21:00)
[2017-01-01] MEDS: DIGOXIN 0.125 MG TAB PO SCH (09:17)
[2017-01-01] MEDS: SODIUM CHLORIDE 1 GRAM TAB PO SCH ×2 (09:17→21:55)
[2017-01-01] MEDS: ENOXAPARIN SODIUM 40 MG/0.4 ML SYRINGE SQ SCH (09:18)
[2017-01-01] MEDS: ARTIFICIAL TEARS OPTH OINT 3.5 APPLIC/3.5 GM TUBO EACH EYE SCH ×2 (09:20→21:56)
[2017-01-01] MEDS: SODIUM CHLORIDE 0.9% FLUSH 10 ML FLUSH IVF SCH (09:20)
[2017-01-01] MEDS: SODIUM HYPOCHLORITE 0.125% 500 ML BTL TOPICAL SCH ×2 (09:20→21:57)
[2017-01-01 09:21] LABS: BANDS 5 % (0-6); EOSINOPHILS 2 % (0-4); METAMYELOCYTES 2 % (0-1); NEUTROPHIL # MANUAL DIFF 12.8 TH/MM3 (1.8-7.7); PLATELET ESTIMATE SMEAR NORMAL (NORMAL); PLATELET MORPHOLOGY NORMAL (NORMAL); POLYS (SEG NEUTROPHILS) 71 % (16-70); SCAN/DIFF FINAL DIFF MANUAL; WBC DIFF SAMPLE 100
[2017-01-01] MEDS ORDERED: POTASSIUM CHLORIDE 20 MEQ CONTROLLED RELEASE TAB PO ONE (09:30)
[2017-01-01] MEDS: RESP: BUDESONIDE 0.5 MG/2 ML NEB NEB SCH ×2 (09:38→19:51)
--- NOTE | 2017-01-01 11:54 | PD.PN.STU ---
Subjective Remarks Patient is awake and alert. Sitting in bed. Communication difficult as patient is on T Bar, FiO2 30 %. He seems to be in a better mood today. He laughed during the exam. Movements in the extremities are improving albeit minimally. Per nursing, it was discovered that the patient had a large ulcer near sacrum as well as a wound around T Bar. Wound care was consulted. The patient confirmed that he has been getting moved regularly, is seeing PT daily, and has been getting his wounds cleaned and dressings changed. Denies SOB, chest pain, or cough. Complains of some leg pain. Objective Vitals Vital Signs Date Time Temp Pulse Resp B/P (MAP) Pulse Ox O2 Delivery O2 Flow Rate FiO2 01/01/17 11:00 81 25 121/68 (85) 99 01/01/17 10:30 86 21 115/59 (77) 96 01/01/17 10:00 84 19 125/62 (83) 96 01/01/17 09:30 85 21 133/65 (87) 97 01/01/17 09:00 83 19 124/60 (81) 99 01/01/17 08:30 77 15 122/60 (80) 97 01/01/17 08:00 77 16 125/61 (82) 99 01/01/17 07:00 Bi-Pap 10.00 40 01/01/17 06:00 73 01/01/17 04:18 94 40 01/01/17 04:00 74 01/01/17 04:00 99.0 74 15 113/59 (77) 90 01/01/17 03:09 98 40 01/01/17 02:00 68 01/01/17 00:00 98.8 78 18 129/62 (84) 96 01/01/17 00:00 78 12/31/16 23:15 97 50 12/31/16 22:00 75 12/31/16 21:00 114/60 (78) 12/31/16 20:00 64 12/31/16 20:00 94 70 12/31/16 20:00 98.9 64 16 95 12/31/16 20:00 94 BiPAP 75 12/31/16 19:00 84 Bi-Pap 10.00 40 12/31/16 18:00 69 12/31/16 16:00 99.6 67 17 98/50 (66) 94 12/31/16 16:00 99.6 12/31/16 16:00 67 12/31/16 14:00 80 12/31/16 12:00 74 12/31/16 12:00 99.4 74 18 118/62 (80) 100 I/O 12/31/16 12/31/16 12/31/16 01/01/17 01/01/17 01/01/17 07:00 15:00 23:00 07:00 15:00 23:00 Intake Total 605 ml 810 ml 490 ml Output Total 950 ml 750 ml 450 ml Balance -345 ml 60 ml 40 ml IV Total 10 ml Tube Feeding 455 ml 650 ml 430 ml Tube Irrigant 150 ml Other 150 ml 60 ml Output Urine Total 800 ml 750 ml 350 ml Stool Total 150 ml 100 ml GENERAL: Obese middle-aged white male who is a awake and sitting in bed. He is communicating more today. Good eye contact. Improved mood. Laughed during the exam. HEENT: Head normocephalic. Pupils are reactive. Sclerae are injected. NECK: Supple. No thyroid enlargement. No venous distension. Erythematous ulcer, clear margins at site of T Bar. CHEST: Equal movements with diminished breath sounds at the bases. Occ Crackles. HEART: The heart sounds are irregular. S1 and S2 with no definite murmur. ABDOMEN: Obese, protuberant. No masses, no organomegaly. EXTREMITIES: Mild edema. Decreased peripheral pulses. The patient has some weakness of his lower extremities and left arm but is able to move all extremities against gravity. 2 + edema of all limbs. SKIN: Dry and scaly. Unable to examine sacral region. RECTAL: Exam is deferred. Result Diagram: 01/01/1715 01/01/1715 Medications and IVs Current Medications Medications (Trade) Dose Ordered Sig/Audelia Route Start Time Stop Time Status Last Admin (Tylenol) 650 mg Q6H PRN PO 10/25/16 05:30 11/23/16 13:20 (Zofran Inj) 4 mg Q6H PRN IV 10/25/16 05:30 Miscellaneous Information 1 Q361D XX 10/25/16 05:30 10/25/16 21:10 (Chlorhexidine 2% Cloth) Taper DAILY@04 TOP 10/26/16 04:00 10/22/17 03:59 11/7/17 03:40 (Chlorhexidine 2% Cloth) 3 pack UNSCH PRN TOP 10/25/16 05:30 (Milk Of Magnesia Liq) 30 ml Q12H PRN PO 10/25/16 05:30 10/26/16 20:52 (Senokot) 17.2 mg Q12H PRN PO 10/25/16 05:30 12/11/16 02:44 (Dulcolax Supp) 10 mg DAILY PRN RECTAL 10/25/16 05:30 (Lactulose Liq) 30 ml DAILY PRN PO 10/25/16 05:30 (Peridex 0.12% Liq) 15 ml BID@08,20 MT 10/25/16 20:00 12/31/16 20:00 (NS Flush) DAILY IVF 10/26/16 09:00 01/01/17 09:20 (NS Flush) UNSCH PRN IVF 10/25/16 16:45 12/31/16 21:42 (Lacrilube Opht Oint) 1 applic Q12HR EACH EYE 10/26/16 10:00 01/01/17 09:20 (Haldol Inj) 5 mg Q4H PRN IV PUSH 11/03/16 13:00 12/31/16 23:19 Potassium Chloride 100 ml @ 50 mls/hr Q2H PRN IV 11/05/16 04:45 11/29/16 09:27 Potassium Chloride 100 ml @ 50 mls/hr Q2H PRN IV 11/05/16 04:45 11/24/16 13:18 (K-Lyte Cl Eff) 50 meq UNSCH PRN PO 11/05/16 04:45 12/20/16 09:57 Potassium Chloride 100 ml @ 25 mls/hr UNSCH PRN IV 11/05/16 04:45 12/22/16 06:32 Potassium Chloride 100 ml @ 50 mls/hr Q2H PRN IV 11/05/16 04:45 Magnesium Sulfate 4 gm/Sodium Chloride 100 ml @ 50 mls/hr UNSCH PRN IV 11/05/16 04:45 (Mag-Ox) 800 mg UNSCH PRN PO 11/05/16 04:45 Magnesium Sulfate 2 gm/Sodium Chloride 100 ml @ 50 mls/hr UNSCH PRN IV 11/05/16 04:45 (K-Phos) 2,000 mg Q4H PRN PO 11/05/16 04:45 Sodium Phosphate 30 mmol/Sodium Chloride 250 ml @ 42 mls/hr UNSCH PRN IV 11/05/16 04:45 12/04/16 09:28 (K-Phos) 2,000 mg UNSCH PRN PO/TUBE 11/05/16 04:45 Potassium Phosphate 30 mmol/ Sodium Chloride 260 ml @ 42 mls/hr UNSCH PRN IV 11/05/16 04:45 (Apresoline Inj) 10 mg Q1HR PRN IV PUSH 11/15/16 16:15 12/15/16 03:34 (Trandate Inj) 10 mg Q1HR PRN IV PUSH 11/15/16 16:15 12/15/16 03:18 (Cardizem) 90 mg Q6HR PO 11/15/16 18:00 Future hold 01/01/17 06:09 (Lopressor) 50 mg Q6HR PO 11/16/16 18:00 Future hold 01/01/17 06:09 (Pepcid) 20 mg BID NG 11/16/16 21:00 01/01/17 09:16 (Lanoxin) 0.125 mg DAILY PO 11/19/16 09:00 Future hold 01/01/17 09:17 (D50w (Vial) Inj) 50 ml UNSCH PRN IV PUSH 11/20/16 07:45 12/17/16 04:15 (Glucagon Inj) 1 mg UNSCH PRN OTHER 11/20/16 07:45 (Lopressor Inj) 5 mg Q5M PRN IV PUSH 11/28/16 02:45 12/15/16 03:54 (Albuterol Neb) 2.5 mg Q2HR NEB PRN NEB 11/30/16 11:15 01/01/17 03:09 (NovoLIN R SUPPLEMENTAL SCALE) 1 Q6H SQ 12/02/16 14:00 01/01/17 08:00 (fentaNYL INJ) 50 mcg Q1H PRN IV PUSH 12/03/16 09:00 01/01/17 03:39 (Prinivil) 10 mg DAILY PO 12/04/16 02:45 01/01/17 09:16 Miscellaneous Information 1 Q3D T-DERMAL 12/07/16 14:00 10/25/17 14:00 (Lexapro) 10 mg HS PO 12/07/16 21:00 12/31/16 21:43 (Sodium Chloride) 1 gm Q12HR PO 12/07/16 09:00 01/01/17 09:17 (Levemir Inj) 8 units Q12HR SQ 12/19/16 09:00 01/01/17 09:17 (Pulmicort Respule Neb) 0.5 mg Q12HR NEB NEB 12/19/16 08:00 01/01/17 09:38 (Miralax) 17 gm DAILY PRN PO 12/20/16 17:30 (Cordarone) 200 mg DAILY OG-TUBE 12/24/16 09:00 01/01/17 09:17 (Deltasone) 10 mg DAILY PO 12/24/16 09:00 01/01/17 09:17 (Reglan Liq) 10 mg Q8HR PO 12/24/16 14:00 01/01/17 06:09 (Lovenox Inj) 40 mg Q24H SQ 12/24/16 10:00 01/01/17 09:18 (Imodium Liq) 2 mg UNSCH PRN PO 12/28/16 15:45 (Lactinex) 1 tab Q12HR PO 12/28/16 21:00 01/01/17 09:17 (Mucomyst 20% Neb) 2 ml Q6HR NEB NEB 12/30/16 22:00 01/01/17 09:38 (Dakin'S 0.125% Soln) 500 ml BID TOPICAL 12/31/16 21:00 01/01/17 09:20 A/P Assessment and Plan IMPRESSION 1. Resolving respiratory failure. 2. Basilar pneumonia and hypoxemia. 3. COPD and chronic bronchitis. 4. Possible obstructive sleep apnea syndrome. 5. Hypertension. 6. Atrial fibrillation and CHF. 7. Severe sepsis, resolved. 8. Sacral pressure ulcer 9. Wound secondary to T Bar Plan : 1. Place on BIPAP 12/5 CM FIO2 35 % at HS 2. Continue Diuretics. 3. Taper Prednisone to 7.5 mg daily. 4. T bar 30 % daytime 7 am to 7 pm. 5. PT Evaluation and get patient out of bed. Look for long-term rehab placement. 6. Duoneb nebs qid. 7. Tube feeds at 55 CC. 8. Continue mucomyst 20 % 2 CC with nebs 9. CBC and BMP in a.m. 10. Consult wound care Khris Yap Jan 01, 2017 11:54
--- NOTE | 2017-01-01 13:03 | HHI.PR ---
Subjective Remarks Alert and Oriented. Moving his arms better. On a T Bar FIO2 30 % . CXR shows basal infiltrates. Needs PT. Objective Vital Signs Date Time Temp Pulse Resp B/P (MAP) Pulse Ox O2 Delivery O2 Flow Rate FiO2 01/01/17 11:55 90 01/01/17 11:00 81 25 121/68 (85) 99 01/01/17 10:30 86 21 115/59 (77) 96 01/01/17 10:00 84 19 125/62 (83) 96 01/01/17 09:30 85 21 133/65 (87) 97 01/01/17 09:00 83 19 124/60 (81) 99 01/01/17 08:30 77 15 122/60 (80) 97 01/01/17 08:00 77 16 125/61 (82) 99 01/01/17 07:00 Bi-Pap 10.00 40 01/01/17 06:00 73 01/01/17 04:18 94 40 01/01/17 04:00 74 01/01/17 04:00 99.0 74 15 113/59 (77) 90 01/01/17 03:09 98 40 01/01/17 02:00 68 01/01/17 00:00 98.8 78 18 129/62 (84) 96 01/01/17 00:00 78 12/31/16 23:15 97 50 12/31/16 22:00 75 12/31/16 21:00 114/60 (78) 12/31/16 20:00 64 12/31/16 20:00 94 70 12/31/16 20:00 98.9 64 16 95 12/31/16 20:00 94 BiPAP 75 12/31/16 19:00 84 Bi-Pap 10.00 40 12/31/16 18:00 69 12/31/16 16:00 99.6 67 17 98/50 (66) 94 12/31/16 16:00 99.6 12/31/16 16:00 67 12/31/16 14:00 80 I/O 12/31/16 12/31/16 12/31/16 01/01/17 01/01/17 01/01/17 07:00 15:00 23:00 07:00 15:00 23:00 Intake Total 605 ml 810 ml 490 ml Output Total 950 ml 750 ml 450 ml Balance -345 ml 60 ml 40 ml IV Total 10 ml Tube Feeding 455 ml 650 ml 430 ml Tube Irrigant 150 ml Other 150 ml 60 ml Output Urine Total 800 ml 750 ml 350 ml Stool Total 150 ml 100 ml Result Diagram: 01/01/1761401/01/17614 Objective Remarks GENERAL: Obese middle-aged white male who is a awake. He has edema 2+ of the extremities. HEENT: Head normocephalic. Pupils are reactive. Sclerae are clear . NECK: Supple. No bruits or thyroid enlargement. No venous distension. CHEST: Equal movements with diminished breath sounds at the bases, and Occ Crackles . HEART: The heart sounds are regular. S1 and S2 with no definite murmur. ABDOMEN: Obese, protuberant. No masses, no organomegaly. EXTREMITIES: Mild edema. Decreased peripheral pulses. Reflexes 1+. The patient has some weakness of his lower extremities.and left arm. 2 + edema of all limbs. SKIN: Dry and scaly. RECTAL: Exam is deferred. Assessment and Plan Assessment and Plan IMPRESSION 1. Resolving respiratory failure. 2. Basilar pneumonia and hypoxemia. 3. COPD and chronic bronchitis. 4. Possible obstructive sleep apnea syndrome. 5. Hypertension. 6. Atrial fibrillation and CHF. 7. Severe sepsis, resolved. Plan : 1. Place on BIPAP 12/5 CM FIO2 28 % at HS 2. Continue Diuretics. 3. Taper Prednisone 7.5 mg daily. 4. T bar 30 % daytime 7 am to 7 pm. 5. PT Evaluation.Up with help 6. Duoneb nebs qid. 7. Tube feeds at 55 CC. 8. Consult wound care 9. BMP in am Laura Haile MD Jan 01, 2017 13:03
[2017-01-01] MEDS ORDERED: PILL SPLITTER OTHER PRN (14:15)
--- NOTE | 2017-01-01 14:49 | RADRPT ---
EXAM DATE/TIME: 01/01/2017 13:40 [facility] COMPARISON: US LEG BILATERAL VENOUS DOPPLER, November 09, 2016, 14:13. INDICATIONS : Bilateral leg pain. MEDICAL HISTORY : Hypertension. Renal calculi. Hypercholesterolemia. COPD. Sleep apnea. Dyspnea. Anticoagulant therapy, Aspirin. SURGICAL HISTORY : None. ENCOUNTER: Initial ACUITY: 1 day PAIN SCORE: 3/10 LOCATION: Bilateral legs. TECHNIQUE: Venous ultrasound of the left and right leg was performed from the inguinal ligament to the proximal calf. Real-time, color Doppler and spectral tracing, compression and augmentation techniques were us ed. FINDINGS: RIGHT LEG: There is normal compressibility of the deep venous system from the inguinal region to the proximal ca lf. No echogenic clot is seen in the lumen of the common femoral, femoral, popliteal, and posterior tibial veins. There is a normal response of the venous system to proximal and distal augmentation an d respiration. LEFT LEG: There is normal compressibility of the deep venous system from the inguinal region to the proximal ca lf. No echogenic clot is seen in the lumen of the common femoral, femoral, popliteal, and posterior tibial veins. There is a normal response of the venous system to proximal and distal augmentation an d respiration. There is a hypoechoic anechoic cystic appearing cystic lesion in the left posterior fossa extend ing into the mid calf region. Measures approximately 7.9 x 18.6 x 5.1 cm. CONCLUSION: 1. No DVT is identified within either lower extremity. 2. Complex cystic appearing collection in the popliteal fossa and calf region on the left measuring u p to 18.6 cm. 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 Jayson Levin MD on January 01, 2017 at 14:45 Board Certified Radiologist. This report was verified electronically.
--- NOTE | 2017-01-01 17:54 | HHI.IDPN ---
Subjective Subjective Remarks reconsulted 2/2 sacral decub, persistent leukocytosis noted persistent diarrhea no fever WBC up to 16 remains on Tpiece, light secretions Antibiotics zosyn Allergies: Coded Allergies: No Known Allergies (Unverified , 10/25/16) Objective . Vital Signs Date Time Temp Pulse Resp B/P (MAP) Pulse Ox O2 Delivery O2 Flow Rate FiO2 01/01/17 14:00 96 01/01/17 13:00 90 01/01/17 12:30 91 01/01/17 12:00 98.3 01/01/17 12:00 89 01/01/17 11:55 90 01/01/17 11:00 81 25 121/68 (85) 99 01/01/17 10:30 86 21 115/59 (77) 96 01/01/17 10:00 84 19 125/62 (83) 96 01/01/17 09:30 85 21 133/65 (87) 97 01/01/17 09:00 83 19 124/60 (81) 99 01/01/17 08:30 77 15 122/60 (80) 97 01/01/17 08:00 77 16 125/61 (82) 99 01/01/17 07:00 Bi-Pap 10.00 40 01/01/17 06:00 73 01/01/17 04:18 94 40 01/01/17 04:00 74 01/01/17 04:00 99.0 74 15 113/59 (77) 90 01/01/17 03:09 98 40 01/01/17 02:00 68 01/01/17 00:00 98.8 78 18 129/62 (84) 96 01/01/17 00:00 78 12/31/16 23:15 97 50 12/31/16 22:00 75 12/31/16 21:00 114/60 (78) 12/31/16 20:00 64 12/31/16 20:00 94 70 12/31/16 20:00 98.9 64 16 95 12/31/16 20:00 94 BiPAP 75 12/31/16 19:00 84 Bi-Pap 10.00 40 12/31/16 18:00 69 . Laboratory Tests Test 01/01/17 06:15 White Blood Count 16.4 TH/MM3 Red Blood Count 3.21 MIL/MM3 Hemoglobin 10.0 GM/DL Hematocrit 30.1 % Mean Corpuscular Volume 93.7 FL Mean Corpuscular Hemoglobin 31.1 PG Mean Corpuscular Hemoglobin Concent 33.2 % Red Cell Distribution Width 15.5 % Platelet Count 404 TH/MM3 Mean Platelet Volume 7.0 FL Neutrophils (%) (Auto) 72.3 % Lymphocytes (%) (Auto) 15.8 % Monocytes (%) (Auto) 8.7 % Eosinophils (%) (Auto) 2.0 % Basophils (%) (Auto) 1.2 % Neutrophils # (Auto) 11.9 TH/MM3 Lymphocytes # (Auto) 2.6 TH/MM3 Monocytes # (Auto) 1.4 TH/MM3 Eosinophils # (Auto) 0.3 TH/MM3 Basophils # (Auto) 0.2 TH/MM3 CBC Comment AUTO DIFF Differential Total Cells Counted 100 Neutrophils % (Manual) 71 % Band Neutrophils % 5 % Lymphocytes % 14 % Monocytes % 6 % Eosinophils % 2 % Neutrophils # (Manual) 12.8 TH/MM3 Metamyelocytes 2 % Differential Comment FINAL DIFF MANUAL Platelet Estimate NORMAL Platelet Morphology Comment NORMAL Red Cell Morphology Comment NORMAL Laboratory Tests Test 01/01/17 06:15 Blood Urea Nitrogen 14 MG/DL Creatinine LESS THAN 0.15 MG/DL Random Glucose 108 MG/DL Calcium Level 8.7 MG/DL Sodium Level 135 MEQ/L Potassium Level 3.5 MEQ/L Chloride Level 99 MEQ/L Carbon Dioxide Level 28.7 MEQ/L Anion Gap 7 MEQ/L Estimat Glomerular Filtration Rate 690 ML/MIN Microbiology Date/Time Source Procedure Growth Status 12/31/16 20:00 Wound Other Gram Stain - Final Resulted 12/31/16 20:00 Wound Culture - Preliminary Gram Negative Louis Resulted Imaging Last Impressions Lower Extremity Ultrasound 01/01/17 0000 Signed Impressions: Service Date/Time: Sunday, January 01, 2017 13:40 - CONCLUSION: 1. No DVT is identified within either lower extremity. 2. Complex cystic appearing collection in the popliteal fossa and calf region on the left measuring up to 18.6 cm. 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 Jayson Levin MD Chest X-Ray 12/30/16 0600 Signed Impressions: Service Date/Time: Friday, December 30, 2016 04:25 - CONCLUSION: No significant interval change. Persistent bilateral lower lung zone consolidation versus atelectasis and pleural effusions. Austin Funes MD Chest Ultrasound 12/27/16 0000 Signed Impressions: Service Date/Time: December 19:04 - CONCLUSION: Minimal right pleural effusion and the patient was not marked for thoracentesis. Jhonathan Dietz MD Abdomen X-Ray 12/19/16 0000 Signed Impressions: Service Date/Time: Monday, December 19, 2016 07:55 - CONCLUSION: Mildly dilated loops of small and large bowel characteristic of ileus. Fito Joshua MD Abdomen/Pelvis CT 12/15/16 0000 Signed Impressions: Service Date/Time: Thursday, December 15, 2016 10:50 - CONCLUSION: 1. Distended bowel especially the small bowel and the cecum. This is nonspecific. A transition point is not seen. This could relate to ileus. Oral contrast does extend to the rectum. 2. Bibasilar areas of consolidation at the lung bases. There also is a possible small pneumothorax on the right. The patient does have a right chest tube in place. 3. G-tube. 4. Distended gallbladder. 5. Increased soft tissue density in the left lateral abdominal wall which could be from prior trauma or edema. Jayson Soto MD Cervical Spine MRI 12/03/16 0000 Signed Impressions: Service Date/Time: Saturday, December 03, 2016 13:13 - CONCLUSION: Severely limited exam. I believe there is increased signal in the cervical cord mid C3 to mid C5. Ward Kim MD FACR Brain MRI 12/03/16 0000 Signed Impressions: Service Date/Time: Saturday, December 03, 2016 13:13 - CONCLUSION: 1. There is a small area of abnormal T2 signal in the left frontal cortex this is unchanged from the previous examination dated 11/26/16. This is nonspecific in appearance on the MRI. Differential considerations would be a small area of gliosis versus an old area of contusion. Follow up examination in 6 months to document stability would be warranted. 2. No findings to indicate acute cortical infarction are identified. Román Kim MD Gastrostomy Tube Placement 11/30/16 0000 Signed Impressions: Service Date/Time: Wednesday, November 30, 2016 12:22 - CONCLUSION: Uncomplicated gastrostomy tube placement as above. Jorge Jolly MD Liver Ultrasound 11/09/16 Signed Impressions: Service Date/Time: Wednesday, November 09, 2016 13:58 - CONCLUSION: Sono dense liver without duct dilatation. 4 mm common duct. Ward Kim MD FACR Chest CT 11/06/16 Signed Impressions: Service Date/Time: Sunday, November 06, 2016 11:24 - CONCLUSION: 1. Dense bilateral posterior lower lobe airspace consolidation consistent with aspiration versus less likely pneumonia. 2. Linear consolidation in the right middle lobe consistent with atelectasis versus aspiration. 3. Trace left and small right pleural effusions. 4. Support lines and tubes in good position. 5. Prominent coronary artery calcifications. Nico Vaughan MD Head CT 11/05/16 Signed Impressions: Service Date/Time: Saturday, November 05, 2016 21:43 - CONCLUSION: 1. No acute intracranial abnormalities. Pansinus fluid opacification. Cristofer De Santiago MD Carotid Artery Ultrasound 10/25/16 Signed Impressions: Service Date/Time: September 08:27 - CONCLUSION: Mild to moderate plaque in both carotid systems with less than 40%% diameter stenosis by velocity criteria. Jhonathan Dietz MD CT Angiography 10/25/16 Signed Impressions: Service Date/Time: September 06:12 - CONCLUSION: 1. Negative for pulmonary embolism. 2. There is a fairly large area of masslike consolidation in the medial right lung involving posterior segment right upper lobe and medial aspect of right lower lobe. There is associated right hilar and mediastinal adenopathy measuring up to 2.1 cm. Differential diagnosis includes pneumonia or underlying lung neoplasm. Close followup imaging recommended after treatment for pneumonia, to assess for underlying mass. 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 Peripheral pulses symmetric. RESPIRATORY/CHEST: Symmetric, unlabored respirations. coarse BS CT R with serous drainage GASTROINTESTINAL: Abdomen is soft , not distended, not tnder , no guarding or rebound. No hepato-splenomegaly, or palpable masses. No guarding. Bowel sounds present. Dignishiled in place with light brown liquid stool GENITOURINARY: Without palpable bladder distension. Santiago catheter in place with clear yellow urine MUSCULOSKELETAL: Extremities without clubbing, cyanosis, + generalysed edema, ecchymosis and indurated of L calf, NEUROLOGICAL: awake, alert, communicates and follows commands PSYCHIATRIC: calm Assessment & Plan Remarks PNA, Kleb pneumo - failrly sensitive - PSAE , Stenotrophomonas and Kleb in the sputum ? unclear is Steno malt is a coloniser vs a true pathogen, but improved after Bactrim was introdused ARDS Acute VDRF, tolerating weaning - sp trach R sided PTX sp CT Abx associated diarrhea, C.diff negative agasin 12/15 Abnormal UA, CANDIDURIA Persiastent leukocytosis and bandemia - Sacral decub, doubt infection Diarrea, abx associated REC's: r/o C.diff fu WBC Mariana Patel MD Jan 01, 2017 17:54
[2017-01-01] MEDS: ESCITALOPRAM OXALATE 10 MG TAB PO SCH (21:55)
[2017-01-02] VITALS (30 sets, daily range): BP systolic 97–120; BP diastolic 56–82; PULSE 63–86; RESP 15–26; TEMP 98.2–98.4; O2SAT 79–98
[2017-01-02] MEDS: INSULIN NovoLIN REGULAR SUPPLEMENTAL SCALE SQ SCH ×4 (02:00→20:00)
[2017-01-02] MEDS: RESP: ACETYLCYSTEINE 20% 4 ML NEB NEB SCH ×4 (03:38→21:16)
[2017-01-02] MEDS: CHLORHEXIDINE GLUCONATE 2 % 1 PACK (2 CLOTHS) TOP SCH (03:50)
[2017-01-02 05:57] LABS: ANION GAP 7 MEQ/L (5-15); BICARBONATE 28.4 MEQ/L (21.0-32.0); BLOOD UREA NITROGEN 11 MG/DL (7-18); CHLORIDE 100 MEQ/L (98-107); GLOMERULAR FILTRATION RATE 690 ML/MIN (>89); POTASSIUM 3.7 MEQ/L (3.5-5.1); SODIUM (NA) 135 MEQ/L (136-145)
[2017-01-02] MEDS: METOPROLOL TARTRATE 50 MG TAB PO SCH ×5 (06:00→22:55)
[2017-01-02] MEDS: METOCLOPRAMIDE HCL SYRUP 10 MG/10 ML UDC PO SCH ×3 (06:00→22:54)
[2017-01-02] MEDS: DILTIAZEM HCL 90 MG TAB PO SCH ×5 (06:00→22:55)
[2017-01-02] MEDS: RESP: BUDESONIDE 0.5 MG/2 ML NEB NEB SCH ×2 (07:29→21:16)
[2017-01-02] MEDS: CHLORHEXIDINE 0.12% (ORAL KIT) 15 ML CUP MT SCH ×2 (08:00→20:00)
--- NOTE | 2017-01-02 08:16 | HHI.PR ---
Subjective Remarks Pt has no complaints. no CP,worsening SOB, n or v. Discussed w RN, no concerns Objective Vitals Vital Signs Date Time Temp Pulse Resp B/P (MAP) Pulse Ox O2 Delivery O2 Flow Rate FiO2 01/02/17 07:30 98 30 01/02/17 06:00 75 01/02/17 04:25 98 30 01/02/17 04:00 98.3 68 19 116/59 (78) 98 01/02/17 04:00 68 01/02/17 02:00 82 01/02/17 00:20 97 30 01/02/17 00:00 98.4 74 15 110/60 (77) 94 01/02/17 00:00 74 01/01/17 23:15 97 30 01/01/17 22:00 81 01/01/17 20:00 98.2 79 19 126/67 (86) 100 01/01/17 20:00 79 01/01/17 19:50 100 T-piece 5.00 40 01/01/17 19:00 98 Bi-Pap 10.00 40 01/01/17 18:00 96 01/01/17 16:00 96 01/01/17 16:00 98.0 72 24 117/62 (80) 98 01/01/17 14:00 96 01/01/17 13:00 90 01/01/17 12:30 91 01/01/17 12:00 98.3 01/01/17 12:00 89 01/01/17 11:55 90 01/01/17 11:00 81 25 121/68 (85) 99 01/01/17 10:30 86 21 115/59 (77) 96 01/01/17 10:00 84 19 125/62 (83) 96 01/01/17 09:30 85 21 133/65 (87) 97 01/01/17 09:00 83 19 124/60 (81) 99 01/01/17 08:30 77 15 122/60 (80) 97 I/O 01/01/17 01/01/17 01/01/17 01/02/17 01/02/17 01/02/17 07:00 15:00 23:00 07:00 15:00 23:00 Intake Total 490 ml 691 ml 968 ml Output Total 450 ml 750 ml 1100 ml Balance 40 ml -59 ml -132 ml Tube Feeding 430 ml 571 ml 768 ml Other 60 ml 120 ml 200 ml Output Urine Total 350 ml 650 ml 1000 ml Stool Total 100 ml 100 ml 100 ml Result Diagram: 01/01/17 0615 01/02/17 0530 Imaging Last Impressions Lower Extremity Ultrasound 01/01/17 0000 Signed Impressions: Service Date/Time: Sunday, January 01, 2017 13:40 - CONCLUSION: 1. No DVT is identified within either lower extremity. 2. Complex cystic appearing collection in the popliteal fossa and calf region on the left measuring up to 18.6 cm. 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 Jayson Levin MD Chest X-Ray 12/30/16 0600 Signed Impressions: Service Date/Time: Friday, December 30, 2016 04:25 - CONCLUSION: No significant interval change. Persistent bilateral lower lung zone consolidation versus atelectasis and pleural effusions. Austin Funes MD Chest Ultrasound 12/27/16 0000 Signed Impressions: Service Date/Time: December 19:04 - CONCLUSION: Minimal right pleural effusion and the patient was not marked for thoracentesis. Jhonathan Dietz MD Abdomen X-Ray 12/19/16 0000 Signed Impressions: Service Date/Time: Monday, December 19, 2016 07:55 - CONCLUSION: Mildly dilated loops of small and large bowel characteristic of ileus. Fito Joshua MD Abdomen/Pelvis CT 12/15/16 0000 Signed Impressions: Service Date/Time: Thursday, December 15, 2016 10:50 - CONCLUSION: 1. Distended bowel especially the small bowel and the cecum. This is nonspecific. A transition point is not seen. This could relate to ileus. Oral contrast does extend to the rectum. 2. Bibasilar areas of consolidation at the lung bases. There also is a possible small pneumothorax on the right. The patient does have a right chest tube in place. 3. G-tube. 4. Distended gallbladder. 5. Increased soft tissue density in the left lateral abdominal wall which could be from prior trauma or edema. Jayson Soto MD Cervical Spine MRI 12/03/16 0000 Signed Impressions: Service Date/Time: Saturday, December 03, 2016 13:13 - CONCLUSION: Severely limited exam. I believe there is increased signal in the cervical cord mid C3 to mid C5. Ward Kim MD FACR Brain MRI 12/03/16 0000 Signed Impressions: Service Date/Time: Saturday, December 03, 2016 13:13 - CONCLUSION: 1. There is a small area of abnormal T2 signal in the left frontal cortex this is unchanged from the previous examination dated 11/26/16. This is nonspecific in appearance on the MRI. Differential considerations would be a small area of gliosis versus an old area of contusion. Follow up examination in 6 months to document stability would be warranted. 2. No findings to indicate acute cortical infarction are identified. Román Kim MD Gastrostomy Tube Placement 11/30/16 0000 Signed Impressions: Service Date/Time: Wednesday, November 30, 2016 12:22 - CONCLUSION: Uncomplicated gastrostomy tube placement as above. Jorge Jolly MD Liver Ultrasound 11/09/16 0000 Signed Impressions: Service Date/Time: Wednesday, November 09, 2016 13:58 - CONCLUSION: Sono dense liver without duct dilatation. 4 mm common duct. Ward Kim MD FACR Chest CT 11/06/16 0000 Signed Impressions: Service Date/Time: Sunday, November 06, 2016 11:24 - CONCLUSION: 1. Dense bilateral posterior lower lobe airspace consolidation consistent with aspiration versus less likely pneumonia. 2. Linear consolidation in the right middle lobe consistent with atelectasis versus aspiration. 3. Trace left and small right pleural effusions. 4. Support lines and tubes in good position. 5. Prominent coronary artery calcifications. Nico Vaughan MD Head CT 11/05/16 0000 Signed Impressions: Service Date/Time: Saturday, November 05, 2016 21:43 - CONCLUSION: 1. No acute intracranial abnormalities. Pansinus fluid opacification. Cristofer De Santiago MD Carotid Artery Ultrasound 10/25/16 0000 Signed Impressions: Service Date/Time: September 08:27 - CONCLUSION: Mild to moderate plaque in both carotid systems with less than 40%% diameter stenosis by velocity criteria. Jhonathan Dietz MD CT Angiography 10/25/16 0000 Signed Impressions: Service Date/Time: September 06:12 - CONCLUSION: 1. Negative for pulmonary embolism. 2. There is a fairly large area of masslike consolidation in the medial right lung involving posterior segment right upper lobe and medial aspect of right lower lobe. There is associated right hilar and mediastinal adenopathy measuring up to 2.1 cm. Differential diagnosis includes pneumonia or underlying lung neoplasm. Close followup imaging recommended after treatment for pneumonia, to assess for underlying mass. Cristofer De Santiago MD Objective Remarks GENERAL: 56-year-old male, on t-piece appears tired SKIN: sacral coccygeal 3x4 cm wound, not examine today EYES: EOM appear intact ENT: No nasal discharge. NECK: Trachea midline. No JVD. Tracheostomy site has some yellow secretions surrounding CARDIOVASCULAR: normal rate, regular rhythm. RESPIRATORY: equal chest rise. unlabored. coarse breath sounds GASTROINTESTINAL: Abdomen soft, obese, distended. PEG tube in place MUSCULOSKELETAL: Extremities with edema L>R. No obvious deformities. NEUROLOGICAL: Eyes are open. able to squeeze my hands, moves his lower extremities some. Nods head and is able to mumble words when asked. A/P Assessment and Plan Update care management 01/02/17: no changes to current management. ID following. at this time, doesn't feel that sacrococcygeal wound is no infected. Persistent diarrhea. No abx recommended at this time, C. Diff lab order in place, f/u result. Pt w persistent leukocytosis. Monitor WBC per ID. CBC today pending. Wound care physician has been consulted. fiber technician also following. Wound cx growing gram neg rods. Lower extremity u/s neg for DVT. Transfer to floor able to care for trach/PEG Assessment and Plan Neuro/Psych: Metabolic encephalopathy - resolved. CIM/SHEFALI S/p Neuromuscular paralysis for Prone therapy Syncope Depression MRI C-spine showing increased signals C3-C5 region. Dr Riggins reviewed MRI spine- not sure about increased signal in cord, could be cervical hyperextension injury, from intubation according to him. Unable to do flexion- extension films of the C-spine (trached patient). 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 Haloperidol 5mg iv q4h prn for agitation. Escitalopram 10 mg qhs or depression from 12/07/16. MRI brain 11/26: Small focal signal abnormality in the superior medial left frontal lobe. Could be sequela from prior insult such as a contusion or small infarct. No acute infarct MRI brain 12/[address] on admission revealed no acute intracranial findings, CT brain 11/05- no acute findings. opacification of sinuses. EEG 11/20: No seizure activity. EEG 11/09: severe encephalopathy PT/OT for range of motion, up to stretcher chair as tolerated CV: Hypotension-resolved Atrial fib/ flutter with RVR - rate controlled. Hypertension on amiodarone to 200mg po daily for maintenance dose. digoxin 0.125 mg po daily. recheck level 01/04 and [id number] as long as stable. PO Diltiazem 90 mg PO q6hr, metoprolol 50mg Q6 Coumadin and heparin 12/10 held due to left popliteal fossa hematoma. now on lovenox for prophylactic dose since 12/24. given high risk for bleeding complication and low CHADS-VaSC risk, risk/benefit at this time in favor of holding full anticoagulation. Echo 10/25 EF 60-65%. Repeat echo with bubble study: 11/22: No shunt seen Resp: Acute, now chronic hypoxemic Respiratory failure s/p trach 11/27 Spontaneous Right sided PTX secondary to barotrauma - resolved. COPD exacerbation - resolved. Pneumonia most likely community-acquired - resolved. Obesity hypoventilation syndrome Tobacco use disorder albuterol aerosols every 2 hours PRN. Ventilator bundle tolerating intermittent PSV. Budesonide 0.5 mg/2 mL aerosols twice a day. Prednisone 10 mg daily continue to wean s/p trach 11/[address] Martin #[facility]. Pulmonary following. appreciate assistance. s/p 20Fr CT placed for right PTX 11/23, monitor CT drainage. d/c chest tube . CT pulmonary angio revealed no pulmonary embolus. Masslike consolidation in the posterior right upper lobe and medial right lower lobe. Lymphadenopathy to 1 cm right hilum and subcarinal. Atelectasis left lower lobe. Discontinued Prone therapy 11/02/16. slow wean of mechanical ventilation. continue t-piece as tolerated. GI: Ileus - resolved. Morbid Obesity Elevated LFT's- now within normal. PEG tube placement 11/30. US liver: No ductal dilatation tube feeds with vital high-protein currently at 50 cc/hr. Metoclopramide 10 mg every 6 hours, change to PO. No Cholecystostomy tube recommended by Dr. Nguyen. Recommended advance diet as tolerated Famotidine 20 milligrams mg twice a day for GI prophylaxis /renal/FEN: Hyponatremia Hypopotassemia Diarrhea: C diff is negative. on lactinex and imodium. Monitor lytes Monitor renal function, I/O's, electrolytes replacement per protocol. Currently on sodium chloride 1 g every 12 hours Endo: Hyperglycemia SSI Q6h with Regular Insulin mild protocol for glycemic control. Previously insulin detemir 62 units twice a day. now on 8 units twice a day. Monitor BS and adjust levemir dose as needed . Heme: Normocytic anemia - stable. Leukocytosis L popliteal fossa hematoma - stable. Monitor closely for compartment syndrome ID: Severe sepsis - resolved. HCAP - resolved. Leukocytosis Per endless track vehicle supervisor, pt has a sacrococcygeal Wound measuring 4cm x 3cm x ~3.2cm. ~ 50% yellow loosely adherent slough is noted at the base, with ~50% pink tissue. I did evaluate the wound. Wound is foul smelling on exam today w some yellow/ purulent discharge. Wound cultures have been obtain. ID has been reconsulted. Wound care physician also has been consulted. Placed back on piperacillin/tazobactam, d/c'd 12/20. Discontinued vancomycin and micafungin by ID, WBC trending down ID Amanda Haas, F/U ríos culture, C Diff- NGTD. ABX completed 12/11. (piperacillin/tazobactam and sulfamethoxazole/ trimethoprim 800/160 2 tablets 3 times a day) Sputum: Klebsiella, Stenotrophomonas and Pseudomonas 11/27 Sputum cx 11/23: Kleb, Pseudomonas, s/p (ceftriaxone and fluconazole course). ID is following-Dr. Patel s/p ceftriaxone 11/02-11/09 for Enterobacter pneumonia. Repeat sputum Klebsiella sensitive to Rocephin 10/29/16-Enterobacter in sputum, 11/06/16, 11/10 sputum- Klebsiella Urine Legionella and pneumococcal antigens negative and influenza negative C-diff PCR is negative Observe clinically off abx. Trend fever curve. GI, famotidine. DVT - on lovenox. s/pIV heparin gtt/Coumadin DCd 12/10 due to left popliteal hematoma. Given bleeding complications with low CHADS-VaSC risk, risk/benefit in favor of holding full anticoagulation. 11/09 Doppler US LE negative for DVT Palliative care is following Patient with slow progression. On T-piece. Pulmonary following. Discharge Planning continue care in ICU Wound cultures have been obtain. f/u on them. ID has been reconsulted. Wound care physician also has been consulted. Perla Watson MD Jan 02, 2017 08:16
[2017-01-02] MEDS: INSULIN DETEMIR 100 UNITS/ML VIAL SQ SCH ×2 (09:00→21:00)
[2017-01-02] MEDS: SODIUM CHLORIDE 0.9% FLUSH 10 ML FLUSH IVF SCH ×2 (09:00→12:17)
[2017-01-02 09:30] LABS: AUTOMATED NEUTROPHIL # 9.8 TH/MM3 (1.8-7.7); BASOPHIL # 0.1 TH/MM3 (0-0.2); BASOPHIL % 1.1 % (0.0-2.0); EOSINOPHIL # 0.5 TH/MM3 (0-0.4); EOSINOPHIL % 3.5 % (0.0-4.0); HEMATOCRIT 30.8 % (39.0-51.0); LYMPH % 16.3 % (9.0-44.0); LYMPHOCYTE # 2.3 TH/MM3 (1.0-4.8); MEAN CELL VOLUME 94.1 FL (80.0-100.0); MEAN CORPUSCULAR HEMOGLOBIN 30.7 PG (27.0-34.0); MEAN CORPUSCULAR HGB CONC 32.6 % (32.0-36.0); MONO % 9.5 % (0.0-8.0); NEUT % 69.6 % (16.0-70.0); PLATELET COUNT 444 TH/MM3 (150-450); RED BLOOD COUNT 3.27 MIL/MM3 (4.50-5.90); RED CELL DISTRIBUTION WIDTH 15.4 % (11.6-17.2)
[2017-01-02 09:33] LABS: HEMO FLAGS AUTO DIFF
[2017-01-02 09:39] LABS: APTT (PATIENT) 27.3 SEC (24.3-30.1)
[2017-01-02] MEDS: DIGOXIN 0.125 MG TAB PO SCH (10:05)
[2017-01-02] MEDS: SODIUM CHLORIDE 1 GRAM TAB PO SCH ×2 (10:05→21:00)
[2017-01-02] MEDS: LACTOBACILLUS ACIDOPHILUS TAB PO SCH ×2 (10:05→22:55)
[2017-01-02] MEDS: LISINOPRIL 10 MG TAB PO SCH (10:05)
[2017-01-02] MEDS: AMIODARONE 200 MG TAB OG-TUBE SCH (10:05)
[2017-01-02] MEDS: POTASSIUM CHLORIDE 20 MEQ CONTROLLED RELEASE TAB PO SCH (10:05)
[2017-01-02] MEDS: FAMOTIDINE 20 MG TAB NG SCH ×2 (10:05→22:55)
[2017-01-02] MEDS: FUROSEMIDE 20 MG TAB PO SCH (10:06)
[2017-01-02] MEDS: ENOXAPARIN SODIUM 40 MG/0.4 ML SYRINGE SQ SCH (10:06)
[2017-01-02] MEDS: predniSONE 5 MG TAB PO SCH (10:06)
[2017-01-02] MEDS: ARTIFICIAL TEARS OPTH OINT 3.5 APPLIC/3.5 GM TUBO EACH EYE SCH ×2 (10:07→21:00)
[2017-01-02] MEDS: SODIUM HYPOCHLORITE 0.125% 500 ML BTL TOPICAL SCH ×2 (10:07→21:00)
[2017-01-02 10:10] LABS: BANDS 13 % (0-6); EOSINOPHILS 2 % (0-4); MYELOCYTES 2 % (0-0); NEUTROPHIL # MANUAL DIFF 9.9 TH/MM3 (1.8-7.7); PLATELET ESTIMATE SMEAR HIGH (NORMAL); PLATELET MORPHOLOGY NORMAL (NORMAL); POLYS (SEG NEUTROPHILS) 56 % (16-70); WBC DIFF SAMPLE 100
[2017-01-02 10:11] LABS: SCAN/DIFF FINAL DIFF MANUAL
[2017-01-02] MEDS: RESP: ALBUTEROL 2.5 MG/3 ML NEB (PRN) NEB ×2 (15:27→21:16)
--- NOTE | 2017-01-02 19:38 | HHI.PR ---
Subjective Remarks Alert and Oriented. Seems better On a T Bar FIO2 30 % . CXR shows basal infiltrates. Needs PT. Objective Vital Signs Date Time Temp Pulse Resp B/P (MAP) Pulse Ox O2 Delivery O2 Flow Rate FiO2 01/02/17 18:30 86 21 109/82 (91) 79 01/02/17 18:00 79 21 120/66 (84) 97 01/02/17 17:30 76 20 118/62 (80) 95 01/02/17 17:30 76 01/02/17 17:00 76 01/02/17 17:00 76 17 120/65 (83) 98 01/02/17 16:30 74 20 120/62 (81) 96 01/02/17 16:30 74 01/02/17 16:00 73 01/02/17 16:00 73 17 109/56 (73) 89 01/02/17 13:30 67 26 101/56 (71) 92 01/02/17 13:00 67 20 99/56 (70) 91 01/02/17 12:30 80 18 114/57 (76) 92 01/02/17 12:00 76 19 109/59 (76) 91 01/02/17 11:30 72 20 105/56 (72) 90 01/02/17 11:00 70 19 110/61 (77) 91 01/02/17 10:30 67 19 106/56 (73) 93 01/02/17 10:30 95 T-piece 40 01/02/17 10:00 66 20 100/60 (73) 95 01/02/17 09:31 67 19 109/59 (76) 94 01/02/17 09:00 63 19 97/58 (71) 93 01/02/17 08:30 65 18 99/56 (70) 86 01/02/17 08:00 64 17 102/57 (72) 92 01/02/17 07:30 98 30 01/02/17 06:00 75 01/02/17 04:25 98 30 01/02/17 04:00 98.3 68 19 116/59 (78) 98 01/02/17 04:00 68 01/02/17 02:00 82 01/02/17 00:20 97 30 01/02/17 00:00 98.4 74 15 110/60 (77) 94 01/02/17 00:00 74 01/01/17 23:15 97 30 01/01/17 22:00 81 01/01/17 20:00 98.2 79 19 126/67 (86) 100 01/01/17 20:00 79 01/01/17 19:50 100 T-piece 5.00 40 I/O 01/01/17 01/01/17 01/01/17 01/02/17 01/02/17 01/02/17 07:00 15:00 23:00 07:00 15:00 23:00 Intake Total 490 ml 691 ml 968 ml 844 ml Output Total 450 ml 750 ml 1100 ml 1300 ml Balance 40 ml -59 ml -132 ml -456 ml Tube Feeding 430 ml 571 ml 768 ml 604 ml Other 60 ml 120 ml 200 ml 240 ml Output Urine Total 350 ml 650 ml 1000 ml 1200 ml Stool Total 100 ml 100 ml 100 ml 100 ml Result Diagram: 01/02/17 0836 01/02/17 0530 Objective Remarks GENERAL: Obese middle-aged white male who is a awake. He has edema 2+ of the extremities. HEENT: Head normocephalic. Pupils are reactive. Sclerae are clear . NECK: Supple. No bruits or thyroid enlargement. No venous distension. CHEST: Equal movements with diminished breath sounds at the bases, and Occ basal Crackles . HEART: The heart sounds are regular. S1 and S2 with no definite murmur. ABDOMEN: Obese, protuberant. No masses, no organomegaly. EXTREMITIES: Mild edema. Decreased peripheral pulses. Reflexes 1+. The patient has some weakness of his lower extremities.and left arm. 1 + edema of all limbs. SKIN: Dry and scaly. Assessment and Plan Assessment and Plan IMPRESSION 1. Resolving respiratory failure. 2. Basilar pneumonia and hypoxemia. 3. COPD and chronic bronchitis. 4. Possible obstructive sleep apnea syndrome. 5. Hypertension. 6. Atrial fibrillation and CHF. 7. Severe sepsis, resolved. Plan : 1. Place on BIPAP 12/5 CM FIO2 28 % at HS 2. Continue Diuretics. 3. Prednisone 7.5 mg daily. 4. T bar 30 % daytime 7 am to 7 pm. 5. PT Evaluation.Up with help 6. Duoneb nebs qid. 7. Tube feeds at 55 CC. 8. Consult wound care 9. Continue S/Q Lovenox 40 mg daily. Laura Haile MD Jan 02, 2017 19:38
[2017-01-02] MEDS: ESCITALOPRAM OXALATE 10 MG TAB PO SCH (22:56)
[2017-01-03] VITALS (20 sets, daily range): BP systolic 100–129; BP diastolic 56–70; PULSE 61–74; RESP 14–34; TEMP 97.6–98.2; O2SAT 88–100
[2017-01-03] MEDS: INSULIN NovoLIN REGULAR SUPPLEMENTAL SCALE SQ SCH ×4 (02:00→20:00)
[2017-01-03] MEDS: RESP: ALBUTEROL 2.5 MG/3 ML NEB (PRN) NEB ×3 (03:20→14:41)
[2017-01-03] MEDS: RESP: ACETYLCYSTEINE 20% 4 ML NEB NEB SCH ×3 (03:20→14:41)
[2017-01-03] MEDS: CHLORHEXIDINE GLUCONATE 2 % 1 PACK (2 CLOTHS) TOP SCH (03:43)
[2017-01-03] MEDS: DILTIAZEM HCL 90 MG TAB PO SCH ×4 (05:39→23:21)
[2017-01-03] MEDS: METOCLOPRAMIDE HCL SYRUP 10 MG/10 ML UDC PO SCH ×3 (05:39→21:49)
[2017-01-03] MEDS: METOPROLOL TARTRATE 50 MG TAB PO SCH ×4 (05:39→23:21)
[2017-01-03 06:00] LABS: AUTOMATED NEUTROPHIL # 10.1 TH/MM3 (1.8-7.7); BASOPHIL # 0.2 TH/MM3 (0-0.2); BASOPHIL % 1.4 % (0.0-2.0); EOSINOPHIL # 0.5 TH/MM3 (0-0.4); EOSINOPHIL % 3.1 % (0.0-4.0); LYMPH % 19.6 % (9.0-44.0); MEAN CELL VOLUME 93.3 FL (80.0-100.0); MEAN CORPUSCULAR HGB CONC 32.1 % (32.0-36.0); MONO % 10.4 % (0.0-8.0); NEUT % 65.5 % (16.0-70.0); PLATELET COUNT 485 TH/MM3 (150-450); RED BLOOD COUNT 3.33 MIL/MM3 (4.50-5.90); RED CELL DISTRIBUTION WIDTH 15.4 % (11.6-17.2); WHITE BLOOD COUNT 15.4 TH/MM3 (4.0-11.0)
[2017-01-03 06:02] LABS: HEMO FLAGS AUTO DIFF
[2017-01-03 06:12] LABS: APTT (PATIENT) 27.1 SEC (24.3-30.1)
[2017-01-03 06:26] LABS: BICARBONATE 29.3 MEQ/L (21.0-32.0); POTASSIUM 3.7 MEQ/L (3.5-5.1)
--- NOTE | 2017-01-03 07:29 | HHI.PR ---
Subjective Remarks awake and alert denies any pain no acute events overnight tolerating tube feedings good sats at T piece- 28% Objective Vitals Vital Signs Date Time Temp Pulse Resp B/P (MAP) Pulse Ox O2 Delivery O2 Flow Rate FiO2 01/03/17 04:00 66 01/03/17 04:00 98.0 65 18 100/56 (71) 91 01/03/17 03:20 93 30 01/03/17 00:00 63 01/03/17 00:00 98.0 63 22 102/56 (71) 93 01/02/17 23:45 93 BiPAP 30 01/02/17 23:41 93 30 01/02/17 22:22 97 30 01/02/17 21:16 97 T-piece 7.00 40 01/02/17 20:00 98.2 67 20 117/62 (80) 98 01/02/17 20:00 67 01/02/17 18:30 86 21 109/82 (91) 79 01/02/17 18:00 79 21 120/66 (84) 97 01/02/17 17:30 76 20 118/62 (80) 95 01/02/17 17:30 76 01/02/17 17:00 76 01/02/17 17:00 76 17 120/65 (83) 98 01/02/17 16:30 74 20 120/62 (81) 96 01/02/17 16:30 74 01/02/17 16:00 73 01/02/17 16:00 73 17 109/56 (73) 89 01/02/17 13:30 67 26 101/56 (71) 92 01/02/17 13:00 67 20 99/56 (70) 91 01/02/17 12:30 80 18 114/57 (76) 92 01/02/17 12:00 76 19 109/59 (76) 91 01/02/17 11:30 72 20 105/56 (72) 90 01/02/17 11:00 70 19 110/61 (77) 91 01/02/17 10:30 67 19 106/56 (73) 93 01/02/17 10:30 95 T-piece 40 01/02/17 10:00 66 20 100/60 (73) 95 01/02/17 09:31 67 19 109/59 (76) 94 01/02/17 09:00 63 19 97/58 (71) 93 01/02/17 08:30 65 18 99/56 (70) 86 01/02/17 08:00 64 17 102/57 (72) 92 01/02/17 07:30 98 30 I/O 01/02/17 01/02/17 01/02/17 01/03/17 01/03/17 01/03/17 07:00 15:00 23:00 07:00 15:00 23:00 Intake Total 968 ml 844 ml 931 ml Output Total 1100 ml 1300 ml 1900 ml Balance -132 ml -456 ml -969 ml Tube Feeding 768 ml 604 ml 531 ml Other 200 ml 240 ml 400 ml Output Urine Total 1000 ml 1200 ml 1400 ml Stool Total 100 ml 100 ml 500 ml Result Diagram: 01/03/17 0401 01/03/17 0401 Imaging Last Impressions Lower Extremity Ultrasound 01/01/17 0000 Signed Impressions: Service Date/Time: Sunday, January 01, 2017 13:40 - CONCLUSION: 1. No DVT is identified within either lower extremity. 2. Complex cystic appearing collection in the popliteal fossa and calf region on the left measuring up to 18.6 cm. 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 Jayson Levin MD Chest X-Ray 12/30/16 0600 Signed Impressions: Service Date/Time: Friday, December 30, 2016 04:25 - CONCLUSION: No significant interval change. Persistent bilateral lower lung zone consolidation versus atelectasis and pleural effusions. Austin Funes MD Chest Ultrasound 12/27/16 0000 Signed Impressions: Service Date/Time: December 19:04 - CONCLUSION: Minimal right pleural effusion and the patient was not marked for thoracentesis. Jhonathan Dietz MD Abdomen X-Ray 12/19/16 0000 Signed Impressions: Service Date/Time: Monday, December 19, 2016 07:55 - CONCLUSION: Mildly dilated loops of small and large bowel characteristic of ileus. Fito Joshua MD Abdomen/Pelvis CT 12/15/16 0000 Signed Impressions: Service Date/Time: Thursday, December 15, 2016 10:50 - CONCLUSION: 1. Distended bowel especially the small bowel and the cecum. This is nonspecific. A transition point is not seen. This could relate to ileus. Oral contrast does extend to the rectum. 2. Bibasilar areas of consolidation at the lung bases. There also is a possible small pneumothorax on the right. The patient does have a right chest tube in place. 3. G-tube. 4. Distended gallbladder. 5. Increased soft tissue density in the left lateral abdominal wall which could be from prior trauma or edema. Jasyon Soto MD Cervical Spine MRI 12/03/16 0000 Signed Impressions: Service Date/Time: Saturday, December 03, 2016 13:13 - CONCLUSION: Severely limited exam. I believe there is increased signal in the cervical cord mid C3 to mid C5. Ward Kim MD FACR Brain MRI 12/03/16 0000 Signed Impressions: Service Date/Time: Saturday, December 03, 2016 13:13 - CONCLUSION: 1. There is a small area of abnormal T2 signal in the left frontal cortex this is unchanged from the previous examination dated 11/26/16. This is nonspecific in appearance on the MRI. Differential considerations would be a small area of gliosis versus an old area of contusion. Follow up examination in 6 months to document stability would be warranted. 2. No findings to indicate acute cortical infarction are identified. Román Kim MD Gastrostomy Tube Placement 11/30/16 0000 Signed Impressions: Service Date/Time: Wednesday, November 30, 2016 12:22 - CONCLUSION: Uncomplicated gastrostomy tube placement as above. Jorge Jolly MD Liver Ultrasound 11/09/16 0000 Signed Impressions: Service Date/Time: Wednesday, November 09, 2016 13:58 - CONCLUSION: Sono dense liver without duct dilatation. 4 mm common duct. Ward Kim MD FACR Chest CT 11/06/16 0000 Signed Impressions: Service Date/Time: Sunday, November 06, 2016 11:24 - CONCLUSION: 1. Dense bilateral posterior lower lobe airspace consolidation consistent with aspiration versus less likely pneumonia. 2. Linear consolidation in the right middle lobe consistent with atelectasis versus aspiration. 3. Trace left and small right pleural effusions. 4. Support lines and tubes in good position. 5. Prominent coronary artery calcifications. Nico Vaughan MD Head CT 11/05/16 0000 Signed Impressions: Service Date/Time: Saturday, November 05, 2016 21:43 - CONCLUSION: 1. No acute intracranial abnormalities. Pansinus fluid opacification. Cristofer De Santiago MD Carotid Artery Ultrasound 10/25/16 0000 Signed Impressions: Service Date/Time: September 08:27 - CONCLUSION: Mild to moderate plaque in both carotid systems with less than 40%% diameter stenosis by velocity criteria. Jhonathan Dietz MD CT Angiography 10/25/16 0000 Signed Impressions: Service Date/Time: September 06:12 - CONCLUSION: 1. Negative for pulmonary embolism. 2. There is a fairly large area of masslike consolidation in the medial right lung involving posterior segment right upper lobe and medial aspect of right lower lobe. There is associated right hilar and mediastinal adenopathy measuring up to 2.1 cm. Differential diagnosis includes pneumonia or underlying lung neoplasm. Close followup imaging recommended after treatment for pneumonia, to assess for underlying mass. Cristofer De Santiago MD Objective Remarks awake and alert ff all commands anicteric t piece in place lungs- occasinal few rhonchi regular rhythm abdomen soft, nontender extremities + edema, good peripheral pulses moves all extremities spontaneously Urinary Catheter: Yes Assessment to: Continue Santiago insert reason: Prolonged Immobilization A/P Assessment and Plan Update care management 01/03/17: no changes to current management. ID following. at this time, doesn't feel that sacrococcygeal wound is no infected. Persistent diarrhea. No abx recommended at this time, C. Diff lab order in place, f/u result. Pt w persistent leukocytosis. collection clerk also following. Wound cx growing gram neg rods. Lower extremity u/s neg for DVT. Transfer to floor able to care for trach/PEG Assessment and Plan Neuro/Psych: Metabolic encephalopathy - resolved. CIM/SHEFALI S/p Neuromuscular paralysis for Prone therapy Syncope Depression MRI C-spine showing increased signals C3-C5 region. Dr Riggins reviewed MRI spine- not sure about increased signal in cord, could be cervical hyperextension injury, from intubation according to him. Unable to do flexion- extension films of the C-spine (trached patient). 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 Haloperidol 5mg iv q4h prn for agitation. Escitalopram 10 mg qhs or depression from 12/07/16. MRI brain 11/26: Small focal signal abnormality in the superior medial left frontal lobe. Could be sequela from prior insult such as a contusion or small infarct. No acute infarct MRI brain 12/[address] on admission revealed no acute intracranial findings, CT brain 11/05- no acute findings. opacification of sinuses. EEG 11/20: No seizure activity. EEG 11/09: severe encephalopathy PT/OT for range of motion, up to stretcher chair as tolerated CV: Hypotension-resolved Atrial fib/ flutter with RVR - rate controlled.- telemetry in SR Hypertension on amiodarone to 200mg po daily for maintenance dose. digoxin 0.125 mg po daily. recheck level 01/04 and s20yrft as long as stable. PO Diltiazem 90 mg PO q6hr, metoprolol 50mg Q6 Coumadin and heparin 12/10 held due to left popliteal fossa hematoma. now on lovenox for prophylactic dose since 12/24. given high risk for bleeding complication and low CHADS-VaSC risk, risk/benefit at this time in favor of holding full anticoagulation. Echo 10/25 EF 60-65%. Repeat echo with bubble study: 11/22: No shunt seen Resp: Acute, now chronic hypoxemic Respiratory failure s/p trach 11/27 Spontaneous Right sided PTX secondary to barotrauma - resolved. COPD exacerbation - resolved. Pneumonia most likely community-acquired - resolved. Obesity hypoventilation syndrome Tobacco use disorder albuterol aerosols every 2 hours PRN. Ventilator bundle on T piece 28% Budesonide 0.5 mg/2 mL aerosols twice a day. on Prednisone 10 mg daily continue to wean s/p trach 11/[address] Martin #8 [place]. Pulmonary following. appreciate assistance. s/p 20Fr CT placed for right PTX 11/23, monitor CT drainage. d/c chest tube . CT pulmonary angio revealed no pulmonary embolus. Masslike consolidation in the posterior right upper lobe and medial right lower lobe. Lymphadenopathy to 1 cm right hilum and subcarinal. Atelectasis left lower lobe. Discontinued Prone therapy 11/02/16. slow wean of mechanical ventilation. continue t-piece as tolerated. GI: Ileus - resolved. Morbid Obesity Elevated LFT's- now within normal. PEG tube placement 11/30. US liver: No ductal dilatation tube feeds with vital high-protein currently at 50 cc/hr. Metoclopramide 10 mg every 6 hours, change to PO. No Cholecystostomy tube recommended by Dr. Nguyen. Recommended advance diet as tolerated Famotidine 20 milligrams mg twice a day for GI prophylaxis /renal/FEN: Hyponatremia Hypopotassemia Diarrhea: C diff is negative. on lactinex and imodium. Monitor lytes Monitor renal function, I/O's, electrolytes replacement per protocol. Currently on sodium chloride 1 g every 12 hours Endo: Hyperglycemia SSI Q6h with Regular Insulin mild protocol for glycemic control. Previously insulin detemir 62 units twice a day. now on 8 units twice a day. Monitor BS and adjust levemir dose as needed . Heme: Normocytic anemia - stable. Leukocytosis L popliteal fossa hematoma - stable. Monitor closely for compartment syndrome ID: Severe sepsis - resolved. HCAP - resolved. Leukocytosis Per chief marketing officer, pt has a sacrococcygeal Wound measuring 4cm x 3cm x ~3.2cm. ~ 50% yellow loosely adherent slough is noted at the base, with ~50% pink tissue. I did evaluate the wound. Wound is foul smelling on exam today w some yellow/ purulent discharge. Wound cultures have been obtain. ID has been reconsulted. Wound care physician also has been consulted. piperacillin/tazobactam, d/c'd 12/20. Discontinued vancomycin and micafungin by ID, WBC trending down ID Amanda Haas, F/U ríos culture, C Diff- NGTD. ABX completed 12/11. (piperacillin/tazobactam and sulfamethoxazole/ trimethoprim 800/160 2 tablets 3 times a day) Sputum: Klebsiella, Stenotrophomonas and Pseudomonas 11/27 Sputum cx 11/23: Kleb, Pseudomonas, s/p (ceftriaxone and fluconazole course). ID is following-Dr. Patel s/p ceftriaxone 11/02-11/09 for Enterobacter pneumonia. Repeat sputum Klebsiella sensitive to Rocephin 10/29/16-Enterobacter in sputum, 11/06/16, 11/10 sputum- Klebsiella Urine Legionella and pneumococcal antigens negative and influenza negative C-diff PCR is negative Observe clinically off abx. Trend fever curve. GI, famotidine. DVT - on lovenox. s/pIV heparin gtt/Coumadin DCd 12/10 due to left popliteal hematoma. Given bleeding complications with low CHADS-VaSC risk, risk/benefit in favor of holding full anticoagulation. 11/09 Doppler US LE negative for DVT Palliative care is following Patient with slow progression. On T-piece. Pulmonary following. Discharge Planning continue care in ICU Aranza Loza MD Jan 03, 2017 07:29
[2017-01-03] MEDS: CHLORHEXIDINE 0.12% (ORAL KIT) 15 ML CUP MT SCH ×2 (08:00→22:31)
[2017-01-03 08:02] LABS: BANDS 6 % (0-6); EOSINOPHILS 2 % (0-4); MYELOCYTES 3 % (0-0); NEUTROPHIL # MANUAL DIFF 10.3 TH/MM3 (1.8-7.7); POLYS (SEG NEUTROPHILS) 58 % (16-70); WBC DIFF SAMPLE 100
[2017-01-03 08:03] LABS: PLATELET ESTIMATE SMEAR HIGH (NORMAL); PLATELET MORPHOLOGY NORMAL (NORMAL); SCAN/DIFF FINAL DIFF MANUAL
[2017-01-03] MEDS: RESP: BUDESONIDE 0.5 MG/2 ML NEB NEB SCH ×2 (08:31→20:23)
[2017-01-03] MEDS: INSULIN DETEMIR 100 UNITS/ML VIAL SQ SCH ×3 (09:00→21:48)
[2017-01-03] MEDS: LISINOPRIL 10 MG TAB PO SCH (10:23)
[2017-01-03] MEDS: DIGOXIN 0.125 MG TAB PO SCH (10:24)
[2017-01-03] MEDS: LACTOBACILLUS ACIDOPHILUS TAB PO SCH ×2 (10:24→21:47)
[2017-01-03] MEDS: FAMOTIDINE 20 MG TAB NG SCH ×2 (10:24→21:47)
[2017-01-03] MEDS: predniSONE 5 MG TAB PO SCH (10:24)
[2017-01-03] MEDS: POTASSIUM CHLORIDE 20 MEQ CONTROLLED RELEASE TAB PO SCH (10:24)
[2017-01-03] MEDS: SODIUM CHLORIDE 1 GRAM TAB PO SCH ×2 (10:24→21:47)
[2017-01-03] MEDS: FUROSEMIDE 20 MG TAB PO SCH (10:24)
[2017-01-03] MEDS: ARTIFICIAL TEARS OPTH OINT 3.5 APPLIC/3.5 GM TUBO EACH EYE SCH ×2 (10:25→21:47)
[2017-01-03] MEDS: SODIUM CHLORIDE 0.9% FLUSH 10 ML FLUSH IVF SCH (10:25)
[2017-01-03] MEDS: ENOXAPARIN SODIUM 40 MG/0.4 ML SYRINGE SQ SCH (10:25)
[2017-01-03] MEDS: SODIUM HYPOCHLORITE 0.125% 500 ML BTL TOPICAL SCH ×2 (10:25→21:53)
[2017-01-03] MEDS: AMIODARONE 200 MG TAB OG-TUBE SCH (10:27)
[2017-01-03 12:17] LABS: C. DIFF EPI 027 PRESUMPTIVE NEGATIVE (NEGATIVE)
[2017-01-03] MEDS: REMOVE OLD FENTANYL PATCH T-DERMAL SCH (14:00)
--- NOTE | 2017-01-03 16:29 | HHI.IDPN ---
Subjective Subjective Remarks persistent diarrhea, repeat C.diff neg again no fever WBC up to 15K remains on Tpiece, heavy secretions Antibiotics none Allergies: Coded Allergies: No Known Allergies (Unverified , 10/25/16) Objective . Vital Signs Date Time Temp Pulse Resp B/P (MAP) Pulse Ox O2 Delivery O2 Flow Rate FiO2 01/03/17 14:00 66 22 88 01/03/17 12:00 72 20 100 01/03/17 10:23 68 17 114/59 (77) 95 01/03/17 10:00 74 21 94 01/03/17 09:30 70 34 128/66 (86) 95 01/03/17 09:01 67 17 116/60 (78) 97 01/03/17 08:38 96 T-piece 6.00 40 01/03/17 08:30 64 16 118/70 (86) 97 01/03/17 08:01 64 14 129/66 (87) 96 01/03/17 08:00 65 15 94 01/03/17 04:00 66 01/03/17 04:00 98.0 65 18 100/56 (71) 91 01/03/17 03:20 93 30 01/03/17 00:00 63 01/03/17 00:00 98.0 63 22 102/56 (71) 93 01/02/17 23:45 93 BiPAP 30 01/02/17 23:41 93 30 01/02/17 22:22 97 30 01/02/17 21:16 97 T-piece 7.00 40 01/02/17 20:00 98.2 67 20 117/62 (80) 98 01/02/17 20:00 67 01/02/17 18:30 86 21 109/82 (91) 79 01/02/17 18:00 79 21 120/66 (84) 97 01/02/17 17:30 76 20 118/62 (80) 95 01/02/17 17:30 76 01/02/17 17:00 76 01/02/17 17:00 76 17 120/65 (83) 98 01/02/17 16:30 74 20 120/62 (81) 96 01/02/17 16:30 74 . Laboratory Tests Test 01/02/17 08:36 01/03/17 04:01 White Blood Count 14.0 TH/MM3 15.4 TH/MM3 Red Blood Count 3.27 MIL/MM3 3.33 MIL/MM3 Hemoglobin 10.0 GM/DL 10.0 GM/DL Hematocrit 30.8 % 31.0 % Mean Corpuscular Volume 94.1 FL 93.3 FL Mean Corpuscular Hemoglobin 30.7 PG 30.0 PG Mean Corpuscular Hemoglobin Concent 32.6 % 32.1 % Red Cell Distribution Width 15.4 % 15.4 % Platelet Count 444 TH/MM3 485 TH/MM3 Mean Platelet Volume 7.1 FL 7.3 FL Neutrophils (%) (Auto) 69.6 % 65.5 % Lymphocytes (%) (Auto) 16.3 % 19.6 % Monocytes (%) (Auto) 9.5 % 10.4 % Eosinophils (%) (Auto) 3.5 % 3.1 % Basophils (%) (Auto) 1.1 % 1.4 % Neutrophils # (Auto) 9.8 TH/MM3 10.1 TH/MM3 Lymphocytes # (Auto) 2.3 TH/MM3 3.0 TH/MM3 Monocytes # (Auto) 1.3 TH/MM3 1.6 TH/MM3 Eosinophils # (Auto) 0.5 TH/MM3 0.5 TH/MM3 Basophils # (Auto) 0.1 TH/MM3 0.2 TH/MM3 CBC Comment AUTO DIFF AUTO DIFF Differential Total Cells Counted 100 100 Neutrophils % (Manual) 56 % 58 % Band Neutrophils % 13 % 6 % Lymphocytes % 18 % 23 % Monocytes % 9 % 8 % Eosinophils % 2 % 2 % Neutrophils # (Manual) 9.9 TH/MM3 10.3 TH/MM3 Myelocytes 2 % 3 % Differential Comment FINAL DIFF MANUAL FINAL DIFF MANUAL Platelet Estimate HIGH HIGH Platelet Morphology Comment NORMAL NORMAL Laboratory Tests Test 01/02/17 05:30 01/03/17 04:01 Blood Urea Nitrogen 11 MG/DL 15 MG/DL Creatinine LESS THAN 0.15 MG/DL 0.22 MG/DL Random Glucose 74 MG/DL 95 MG/DL Calcium Level 8.1 MG/DL 8.7 MG/DL Sodium Level 135 MEQ/L 134 MEQ/L Potassium Level 3.7 MEQ/L 3.7 MEQ/L Chloride Level 100 MEQ/L 95 MEQ/L Carbon Dioxide Level 28.4 MEQ/L 29.3 MEQ/L Anion Gap 7 MEQ/L 10 MEQ/L Estimat Glomerular Filtration Rate 690 ML/MIN 444 ML/MIN Microbiology Date/Time Source Procedure Growth Status 12/31/16 20:00 Wound Other Gram Stain - Final Resulted 12/31/16 20:00 Wound Culture - Preliminary Klebsiella Pneumoniae Pseudomonas Aeruginosa Enterococcus Faecalis Resulted Imaging Last Impressions Lower Extremity Ultrasound 01/01/17 0000 Signed Impressions: Service Date/Time: Sunday, January 01, 2017 13:40 - CONCLUSION: 1. No DVT is identified within either lower extremity. 2. Complex cystic appearing collection in the popliteal fossa and calf region on the left measuring up to 18.6 cm. 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 Jayson Levin MD Chest X-Ray 12/30/16 0600 Signed Impressions: Service Date/Time: Friday, December 30, 2016 04:25 - CONCLUSION: No significant interval change. Persistent bilateral lower lung zone consolidation versus atelectasis and pleural effusions. Austin Funes MD Chest Ultrasound 12/27/16 0000 Signed Impressions: Service Date/Time: December 19:04 - CONCLUSION: Minimal right pleural effusion and the patient was not marked for thoracentesis. Jhonathan Dietz MD Abdomen X-Ray 12/19/16 0000 Signed Impressions: Service Date/Time: Monday, December 19, 2016 07:55 - CONCLUSION: Mildly dilated loops of small and large bowel characteristic of ileus. Fito Joshua MD Abdomen/Pelvis CT 12/15/16 0000 Signed Impressions: Service Date/Time: Thursday, December 15, 2016 10:50 - CONCLUSION: 1. Distended bowel especially the small bowel and the cecum. This is nonspecific. A transition point is not seen. This could relate to ileus. Oral contrast does extend to the rectum. 2. Bibasilar areas of consolidation at the lung bases. There also is a possible small pneumothorax on the right. The patient does have a right chest tube in place. 3. G-tube. 4. Distended gallbladder. 5. Increased soft tissue density in the left lateral abdominal wall which could be from prior trauma or edema. Jayson Soto MD Cervical Spine MRI 12/03/16 0000 Signed Impressions: Service Date/Time: Saturday, December 03, 2016 13:13 - CONCLUSION: Severely limited exam. I believe there is increased signal in the cervical cord mid C3 to mid C5. Ward Kim MD FACR Brain MRI 12/03/16 0000 Signed Impressions: Service Date/Time: Saturday, December 03, 2016 13:13 - CONCLUSION: 1. There is a small area of abnormal T2 signal in the left frontal cortex this is unchanged from the previous examination dated 11/26/16. This is nonspecific in appearance on the MRI. Differential considerations would be a small area of gliosis versus an old area of contusion. Follow up examination in 6 months to document stability would be warranted. 2. No findings to indicate acute cortical infarction are identified. Román Kim MD Gastrostomy Tube Placement 11/30/16 0000 Signed Impressions: Service Date/Time: Wednesday, November 30, 2016 12:22 - CONCLUSION: Uncomplicated gastrostomy tube placement as above. Jorge Jolly MD Liver Ultrasound 11/09/16 0000 Signed Impressions: Service Date/Time: Wednesday, November 09, 2016 13:58 - CONCLUSION: Sono dense liver without duct dilatation. 4 mm common duct. Ward Kim MD FACR Chest CT 11/06/16 0000 Signed Impressions: Service Date/Time: Sunday, November 06, 2016 11:24 - CONCLUSION: 1. Dense bilateral posterior lower lobe airspace consolidation consistent with aspiration versus less likely pneumonia. 2. Linear consolidation in the right middle lobe consistent with atelectasis versus aspiration. 3. Trace left and small right pleural effusions. 4. Support lines and tubes in good position. 5. Prominent coronary artery calcifications. Nico Vaughan MD Head CT 11/05/16 0000 Signed Impressions: Service Date/Time: Saturday, November 05, 2016 21:43 - CONCLUSION: 1. No acute intracranial abnormalities. Pansinus fluid opacification. Cristofer De Santiago MD Carotid Artery Ultrasound 10/25/16 0000 Signed Impressions: Service Date/Time: September 08:27 - CONCLUSION: Mild to moderate plaque in both carotid systems with less than 40%% diameter stenosis by velocity criteria. Jhonathan Dietz MD CT Angiography 10/25/16 0000 Signed Impressions: Service Date/Time: September 06:12 - CONCLUSION: 1. Negative for pulmonary embolism. 2. There is a fairly large area of masslike consolidation in the medial right lung involving posterior segment right upper lobe and medial aspect of right lower lobe. There is associated right hilar and mediastinal adenopathy measuring up to 2.1 cm. Differential diagnosis includes pneumonia or underlying lung neoplasm. Close followup imaging recommended after treatment for pneumonia, to assess for underlying mass. 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 Peripheral pulses symmetric. RESPIRATORY/CHEST: Symmetric, unlabored respirations. coarse BS, scattered rhonchi GASTROINTESTINAL: Abdomen is soft , not distended, not tnder , no guarding or rebound. No hepato-splenomegaly, or palpable masses. No guarding. Bowel sounds present. Dignishiled in place with light brown liquid stool GENITOURINARY: Without palpable bladder distension. MUSCULOSKELETAL: Extremities without clubbing, cyanosis, + generalysed edema, ecchymosis and indurated of L calf, NEUROLOGICAL: awake, alert, communicates and follows commands PSYCHIATRIC: calm Assessment & Plan Remarks PNA, Kleb pneumo - failrly sensitive - PSAE , Stenotrophomonas and Kleb in the sputum ? unclear is Steno malt is a coloniser vs a true pathogen, but improved after Bactrim was introdused ARDS Acute VDRF, tolerating weaning - sp trach, on Tpiece R sided PTX sp CT Abx associated diarrhea, C.diff negative agasin 12/15 Abnormal UA, CANDIDURIA Persiastent leukocytosis and bandemia - ? new PNA - h/o MDRO Pseudomonas Sacral decub, doubt infection Diarrhea, abx associated REC's: fu WBC start Avicaz get sputum clx consult surgery to debride the necrotic wound Mariana Patel MD Jan 03, 2017 16:29
[2017-01-03] MEDS: metroNIDAZOLE 500 MG INJ 100 ML IV SCH ×2 (17:37→23:21)
--- NOTE | 2017-01-03 17:49 | HHI.HCPN ---
Reason for visit a. To assist with evaluation and management of symptoms including: pain, dyspnea, encephalopathy. b. To assist medical decision maker(s) with: better understanding of current medical conditions; weighing benefits/burdens of medical treatment options; making medical treatment decisions. . Subjective/Interval History Pt seen to follow up on goals, comfort. Slowly improving-- pulmonology weaning trach, tolerating T piece 28% FiO2. Transfer to regular medical floor ordered. Continues to have diarrhea--stool negative for C. difficile. Persistent leukocytosis, WBC 15. ID reconsultation for malodorous sacral wound. Wound care also following--patient noted with 4 x 3 x 3 cm sacral wound with purulent drainage. ID recommends continue to follow WBC, sputum or possible colonization. Patient also with Candiduria. Wound not felt to be infectious per ID, but may require debridement, plastic surgery consult pending. Patient seen and examined in ICU, alert watching television. Oriented to self and hospitalization. Communicates via mouthing and nodding. Appears to have reasonable insight to hospital course. Asked him about his tracheostomy, he tells me they are replacing with a smaller one and it is getting better. ROS negative he denies any GI complaints feels overall his breathing feels okay. He endorses some pain which he cannot qualify but he feels it is "better". Explore overall condition making some slight improvements though he is high risk for complications, will continue to discuss progress with him. He tells me he worked with PT earlier and it felt good to sit up. He shares his children have been in earlier today to see him and he updated them. Offered to call and provide update--he declines. . Advance Directives Living Will: Never completed Health Care Surrogate: Never completed Durable Power of Customs Examiner: Never completed Advance Directive Specifics Health Care Surrogate(s): Patient appears to be regaining medical decision-making capacity. Patient is single. Has 1 son (Drake Andrews) and 2 daughters (Ira Mcgovern and Krystyna Bowene). According to [place] statutes, health care proxy decision-making would fall to the majority of adult children. Krystyna Roth and Drake wish to participate. . Objective Vital Signs Date Time Temp Pulse Resp B/P (MAP) Pulse Ox O2 Delivery O2 Flow Rate FiO2 01/03/17 14:00 66 22 88 01/03/17 12:00 72 20 100 11/9/17 10:23 68 17 114/59 (77) 95 01/03/17 10:00 74 21 94 01/03/17 09:30 70 34 128/66 (86) 95 01/03/17 09:01 67 17 116/60 (78) 97 01/03/17 08:38 96 T-piece 6.00 40 01/03/17 08:30 64 16 118/70 (86) 97 01/03/17 08:01 64 14 129/66 (87) 96 01/03/17 08:00 65 15 94 01/03/17 04:00 66 01/03/17 04:00 98.0 65 18 100/56 (71) 91 01/03/17 03:20 93 30 01/03/17 00:00 63 01/03/17 00:00 98.0 63 22 102/56 (71) 93 01/02/17 23:45 93 BiPAP 30 01/02/17 23:41 93 30 01/02/17 22:22 97 30 01/02/17 21:16 97 T-piece 7.00 40 01/02/17 20:00 98.2 67 20 117/62 (80) 98 01/02/17 20:00 67 01/02/17 18:30 86 21 109/82 (91) 79 01/02/17 18:00 79 21 120/66 (84) 97 01/02/17 17:30 76 20 118/62 (80) 95 01/02/17 17:30 76 Intake & Output 01/03/17 01/03/17 07:00 19:00 Intake Total 931 ml Output Total 1900 ml Balance -969 ml Tube Feeding 531 ml Other 400 ml Output Urine Total 1400 ml Stool Total 500 ml Physical Exam CONSTITUTIONAL/GENERAL: This is an overweight male resting in bed in no acute distress. TUBES/LINES/DRAINS: tracheostomy to T piece, PEG, Santiago catheter, rectal tube. SCDs. SKIN: Multiple areas scattered Ecchymoses on upper extremities, left greater than right. Abrasion/ scab on right knee. . CARDIOVASCULAR: Regular rate and rhythm. No murmur. Edema to bilateral lower extremities. RESPIRATORY/CHEST: On 28% T piece. Breathing comfortably. Breath sounds coarse with expiratory crackles, right > left. GASTROINTESTINAL: Abdomen obese, large, round. Bowel sounds present. Tolerating tube feeding. PEG tube to midabdomen. GENITOURINARY: Without palpable bladder distension. Catheter in place. MUSCULOSKELETAL: Extremities with 2+ edema. NEUROLOGICAL: Eyes open, tracking, alert to self , place and situation. Mouthing words to communicate. Following commands. moves upper extremities weakly. Moves lower extremities very weakly. PSYCHIATRIC: Awake, calm, no apparent depression/anxiety . Diagnostic Tests Laboratory Laboratory Tests Test 01/01/17 06:15 01/02/17 05:30 01/02/17 08:36 01/03/17 04:01 White Blood Count 16.4 TH/MM3 (4.0-11.0) 14.0 TH/MM3 (4.0-11.0) 15.4 TH/MM3 (4.0-11.0) Red Blood Count 3.21 MIL/MM3 (4.50-5.90) 3.27 MIL/MM3 (4.50-5.90) 3.33 MIL/MM3 (4.50-5.90) Hemoglobin 10.0 GM/DL (13.0-17.0) 10.0 GM/DL (13.0-17.0) 10.0 GM/DL (13.0-17.0) Hematocrit 30.1 % (39.0-51.0) 30.8 % (39.0-51.0) 31.0 % (39.0-51.0) Mean Corpuscular Volume 93.7 FL (80.0-100.0) 94.1 FL (80.0-100.0) 93.3 FL (80.0-100.0) Mean Corpuscular Hemoglobin 31.1 PG (27.0-34.0) 30.7 PG (27.0-34.0) 30.0 PG (27.0-34.0) Mean Corpuscular Hemoglobin Concent 33.2 % (32.0-36.0) 32.6 % (32.0-36.0) 32.1 % (32.0-36.0) Red Cell Distribution Width 15.5 % (11.6-17.2) 15.4 % (11.6-17.2) 15.4 % (11.6-17.2) Platelet Count 404 TH/MM3 (150-450) 444 TH/MM3 (150-450) 485 TH/MM3 (150-450) Mean Platelet Volume 7.0 FL (7.0-11.0) 7.1 FL (7.0-11.0) 7.3 FL (7.0-11.0) Neutrophils (%) (Auto) 72.3 % (16.0-70.0) 69.6 % (16.0-70.0) 65.5 % (16.0-70.0) Lymphocytes (%) (Auto) 15.8 % (9.0-44.0) 16.3 % (9.0-44.0) 19.6 % (9.0-44.0) Monocytes (%) (Auto) 8.7 % (0.0-8.0) 9.5 % (0.0-8.0) 10.4 % (0.0-8.0) Eosinophils (%) (Auto) 2.0 % (0.0-4.0) 3.5 % (0.0-4.0) 3.1 % (0.0-4.0) Basophils (%) (Auto) 1.2 % (0.0-2.0) 1.1 % (0.0-2.0) 1.4 % (0.0-2.0) Neutrophils # (Auto) 11.9 TH/MM3 (1.8-7.7) 9.8 TH/MM3 (1.8-7.7) 10.1 TH/MM3 (1.8-7.7) Lymphocytes # (Auto) 2.6 TH/MM3 (1.0-4.8) 2.3 TH/MM3 (1.0-4.8) 3.0 TH/MM3 (1.0-4.8) Monocytes # (Auto) 1.4 TH/MM3 (0-0.9) 1.3 TH/MM3 (0-0.9) 1.6 TH/MM3 (0-0.9) Eosinophils # (Auto) 0.3 TH/MM3 (0-0.4) 0.5 TH/MM3 (0-0.4) 0.5 TH/MM3 (0-0.4) Basophils # (Auto) 0.2 TH/MM3 (0-0.2) 0.1 TH/MM3 (0-0.2) 0.2 TH/MM3 (0-0.2) CBC Comment AUTO DIFF AUTO DIFF AUTO DIFF Differential Total Cells Counted 100 100 100 Neutrophils % (Manual) 71 % (16-70) 56 % (16-70) 58 % (16-70) Band Neutrophils % 5 % (0-6) 13 % (0-6) 6 % (0-6) Lymphocytes % 14 % (9-44) 18 % (9-44) 23 % (9-44) Monocytes % 6 % (0-8) 9 % (0-8) 8 % (0-8) Eosinophils % 2 % (0-4) 2 % (0-4) 2 % (0-4) Neutrophils # (Manual) 12.8 TH/MM3 (1.8-7.7) 9.9 TH/MM3 (1.8-7.7) 10.3 TH/MM3 (1.8-7.7) Metamyelocytes 2 % (0-1) Differential Comment FINAL DIFF MANUAL FINAL DIFF MANUAL FINAL DIFF MANUAL Platelet Estimate NORMAL (NORMAL) HIGH (NORMAL) HIGH (NORMAL) Platelet Morphology Comment NORMAL (NORMAL) NORMAL (NORMAL) NORMAL (NORMAL) Red Cell Morphology Comment NORMAL (NORMAL) Activated Partial Thromboplast Time 26.9 SEC (24.3-30.1) 27.3 SEC (24.3-30.1) 27.1 SEC (24.3-30.1) Blood Urea Nitrogen 14 MG/DL (7-18) 11 MG/DL (7-18) 15 MG/DL (7-18) Creatinine LESS THAN 0.15 MG/DL LESS THAN 0.15 MG/DL 0.22 MG/DL (0.60-1.30) Random Glucose 108 MG/DL (74-106) 74 MG/DL (74-106) 95 MG/DL (74-106) Calcium Level 8.7 MG/DL (8.5-10.1) 8.1 MG/DL (8.5-10.1) 8.7 MG/DL (8.5-10.1) Sodium Level 135 MEQ/L (136-145) 135 MEQ/L (136-145) 134 MEQ/L (136-145) Potassium Level 3.5 MEQ/L (3.5-5.1) 3.7 MEQ/L (3.5-5.1) 3.7 MEQ/L (3.5-5.1) Chloride Level 99 MEQ/L (98-107) 100 MEQ/L (98-107) 95 MEQ/L (98-107) Carbon Dioxide Level 28.7 MEQ/L (21.0-32.0) 28.4 MEQ/L (21.0-32.0) 29.3 MEQ/L (21.0-32.0) Anion Gap 7 MEQ/L (5-15) 7 MEQ/L (5-15) 10 MEQ/L (5-15) Estimat Glomerular Filtration Rate 690 ML/MIN (>89) 690 ML/MIN (>89) 444 ML/MIN (>89) Myelocytes 2 % (0-0) 3 % (0-0) Test 01/03/17 06:50 Stool C. difficile Toxin (PCR) NEGATIVE (NEGATIVE) Stl C. difficile Toxin Epiderm 027 PRESUMPTIVE NEGATIVE Result Diagram: 01/03/1740001/03/17400 Microbiology Microbiology Date/Time Source Procedure Growth Status 12/31/16 20:00 Wound Other Gram Stain - Final Resulted 12/31/16 20:00 Wound Culture - Preliminary Klebsiella Pneumoniae Pseudomonas Aeruginosa Enterococcus Faecalis Resulted Imaging Last Impressions Lower Extremity Ultrasound 01/01/17 0000 Signed Impressions: Service Date/Time: Sunday, January 01, 2017 13:40 - CONCLUSION: 1. No DVT is identified within either lower extremity. 2. Complex cystic appearing collection in the popliteal fossa and calf region on the left measuring up to 18.6 cm. 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 Jayson Levin MD Chest X-Ray 12/30/16 0600 Signed Impressions: Service Date/Time: Friday, December 30, 2016 04:25 - CONCLUSION: No significant interval change. Persistent bilateral lower lung zone consolidation versus atelectasis and pleural effusions. Austin Funes MD Chest Ultrasound 12/27/16 0000 Signed Impressions: Service Date/Time: December 19:04 - CONCLUSION: Minimal right pleural effusion and the patient was not marked for thoracentesis. Jhonathan Dietz MD Abdomen X-Ray 12/19/16 0000 Signed Impressions: Service Date/Time: Monday, December 19, 2016 07:55 - CONCLUSION: Mildly dilated loops of small and large bowel characteristic of ileus. Fito Joshua MD Abdomen/Pelvis CT 12/15/16 0000 Signed Impressions: Service Date/Time: Thursday, December 15, 2016 10:50 - CONCLUSION: 1. Distended bowel especially the small bowel and the cecum. This is nonspecific. A transition point is not seen. This could relate to ileus. Oral contrast does extend to the rectum. 2. Bibasilar areas of consolidation at the lung bases. There also is a possible small pneumothorax on the right. The patient does have a right chest tube in place. 3. G-tube. 4. Distended gallbladder. 5. Increased soft tissue density in the left lateral abdominal wall which could be from prior trauma or edema. Jayson Soto MD Cervical Spine MRI 12/03/16 0000 Signed Impressions: Service Date/Time: Saturday, December 03, 2016 13:13 - CONCLUSION: Severely limited exam. I believe there is increased signal in the cervical cord mid C3 to mid C5. Ward Kim MD FACR Brain MRI 12/03/16 0000 Signed Impressions: Service Date/Time: Saturday, December 03, 2016 13:13 - CONCLUSION: 1. There is a small area of abnormal T2 signal in the left frontal cortex this is unchanged from the previous examination dated 11/26/16. This is nonspecific in appearance on the MRI. Differential considerations would be a small area of gliosis versus an old area of contusion. Follow up examination in 6 months to document stability would be warranted. 2. No findings to indicate acute cortical infarction are identified. Román Kim MD Gastrostomy Tube Placement 11/30/16 0000 Signed Impressions: Service Date/Time: Wednesday, November 30, 2016 12:22 - CONCLUSION: Uncomplicated gastrostomy tube placement as above. Jorge Jolly MD Liver Ultrasound 11/09/16 0000 Signed Impressions: Service Date/Time: Wednesday, November 09, 2016 13:58 - CONCLUSION: Sono dense liver without duct dilatation. 4 mm common duct. Ward Kim MD FACR Chest CT 11/06/16 0000 Signed Impressions: Service Date/Time: Sunday, November 06, 2016 11:24 - CONCLUSION: 1. Dense bilateral posterior lower lobe airspace consolidation consistent with aspiration versus less likely pneumonia. 2. Linear consolidation in the right middle lobe consistent with atelectasis versus aspiration. 3. Trace left and small right pleural effusions. 4. Support lines and tubes in good position. 5. Prominent coronary artery calcifications. Nico Vaughan MD Head CT 11/05/16 0000 Signed Impressions: Service Date/Time: Saturday, November 05, 2016 21:43 - CONCLUSION: 1. No acute intracranial abnormalities. Pansinus fluid opacification. Cristofer De Santiago MD Carotid Artery Ultrasound 10/25/16 0000 Signed Impressions: Service Date/Time: September 08:27 - CONCLUSION: Mild to moderate plaque in both carotid systems with less than 40%% diameter stenosis by velocity criteria. Jhonathan Dietz MD CT Angiography 10/25/16 0000 Signed Impressions: Service Date/Time: September 06:12 - CONCLUSION: 1. Negative for pulmonary embolism. 2. There is a fairly large area of masslike consolidation in the medial right lung involving posterior segment right upper lobe and medial aspect of right lower lobe. There is associated right hilar and mediastinal adenopathy measuring up to 2.1 cm. Differential diagnosis includes pneumonia or underlying lung neoplasm. Close followup imaging recommended after treatment for pneumonia, to assess for underlying mass. Cristofer De Santiago MD Procedures * 11/30/16 - PEG tube placement * 11/27/16 - tracheostomy * 11/23/16 - right chest tube placement. * 11/10/16 - ETT replaced. * 11/04/16 - arterial line placement. * 10/25/16 - Intubation and central line placed. . Assessment and Plan Disease Oriented Problem List: (1) Acute respiratory failure (2) ARDS (adult respiratory distress syndrome) (3) COPD (chronic obstructive pulmonary disease) (4) Obesity hypoventilation syndrome (5) Leukocytosis (6) Sepsis (7) Hyperglycemia (8) Morbid obesity (9) Hypertension Symptom Scale: (1) Pain 0-10 Scale: 0 Comment: Denies pain at this time. (2) Dyspnea 0-10 Scale: 0 Comment: stable on T piece Pertinent Non-Medical Issues Psychosocial: notes indicate patient is single. Has one son and 2 daughters. Was living with his son prior to admission. Spiritual: unknown. Legal: Patient appears to be regaining medical decision-making capacity. Patient is single. Has 1 son (Drake Andrews) and 2 daughters (Ira Mcgovern and Krystyna Palma). According to [place] statutes, health care proxy decision- making would fall to the majority of adult children. Krystyna Roth and Drake wish to participate. Ethical issues impacting care: No ethical issues identified at this time. . . Important Contacts * Ira Mcgovern, daughter/ HCP: [phone] (cell) or [phone] ext. [phone] (work) * Drake Andrews, son/ HCP: [phone] (cell) or [phone] (work) * Krystyna Palma, daughter/ HCP: [phone] * Drake Henry girlfriend: [phone] . . Prognosis Mr. Andrews is an unfortunate 56-year-old male who was admitted with respiratory distress, pneumonia, ARDS with prolonged hospitalization/mechanical ventilation. 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 Slowly improving, transfer out of ICU pending. Patient remains a high risk for further complications, continue decline and . Patient will likely require acute rehabilitation upon discharge. . Code Status: Full Code Plan * MEDICAL DECISION-MAKING: Patient participating in medical decision-making. Has regained capacity, encephalopathy resolved. Patient communicating by mouthing words given tracheostomy. He appears to have a good understanding of his complex medical issues. No advance directives previously completed. Reviewed with patient that as per [place] law, healthcare proxy decision maker falls to the majority of his adult children, for which he has 3. Patient was offered assistance with completion of advance directives and was given the opportunity to appoint a designated healthcare surrogate. Patient declined, mouthing that he would like to keep his 3 children as HCP decision makers. * CODE STATUS: Full code. * GOALS OF CARE: Pt more able to participate in decision making. Goals aggressive. He is updating his family. Pt has expressed frustration w slow progress. difficult disposition given no current payor source. Case management following. * SYMPTOMS: =Dyspnea s/p trach. Underlying COPD, obesity. Pulmonology following, patient tolerating T-piece.. = Pain, multifactorial given prolonged hospitalization, tracheostomy. Fentanyl 50 mcg PRN available. sparing use. Patient appears comfortable and denies pain at the time of my visit.describes pain as "ok, better" = Debility, myopathy likely secondary to critical illness, neuromuscular blockage and steroid use. Appears to be slowly improving. Will likely require acute rehabilitation upon discharge.PT working w pt, tolerating sitting on side of bed x 5 min. * Palliative care contact information has been provided to patient and family. * Palliative care will continue to follow-up as needed throughout hospital course to assist with symptom management and clarification of goals. . Time Spent Total Floor Time (mins): 20 (d/w RN) Attestation To help prompt me to consider important information that might be impacting today's encounter and assessment, information from prior notes written by myself or my colleagues may have been "brought forward" into today's note. My signature on this note, however, is an attestation that I personally performed the exam, history, and/or decision-making noted today, and, unless otherwise indicated, the interactions with patient, family, and staff as well as the review of records all occurred today. I also attest that the listed assessment and stated plan reflect my best clinical judgment today based on the combination of historical information, prior notes, and today's exam/ interactions. When time spent is documented, it refers only to time spent today by the signer, or if indicated, combined time spent today by collaborating physician/nurse practitioner. Meri Damon Jan 03, 2017 17:49
[2017-01-03] MEDS: cefTAZidime/AVIBACTAM INJ 2.5 GM in SODIUM CHLORIDE 0.9% INJ 50 ML IV SCH (18:22)
--- NOTE | 2017-01-03 20:46 | HHI.PR ---
Subjective Remarks Alert and much better On a T Bar FIO2 30 % .Has thick secretions. Needs PT. Objective Vital Signs Date Time Temp Pulse Resp B/P (MAP) Pulse Ox O2 Delivery O2 Flow Rate FiO2 01/03/17 19:28 100 T-piece 6.00 40 01/03/17 18:00 67 01/03/17 16:05 64 01/03/17 16:00 61 01/03/17 16:00 98.2 01/03/17 14:00 66 22 88 01/03/17 12:00 72 20 100 01/03/17 10:23 68 17 114/59 (77) 95 01/03/17 10:00 74 21 94 01/03/17 09:30 70 34 128/66 (86) 95 01/03/17 09:01 67 17 116/60 (78) 97 01/03/17 08:38 96 T-piece 6.00 40 01/03/17 08:30 64 16 118/70 (86) 97 01/03/17 08:01 64 14 129/66 (87) 96 01/03/17 08:00 65 15 94 01/03/17 04:00 66 01/03/17 04:00 98.0 65 18 100/56 (71) 91 01/03/17 03:20 93 30 01/03/17 00:00 63 01/03/17 00:00 98.0 63 22 102/56 (71) 93 01/02/17 23:45 93 BiPAP 30 01/02/17 23:41 93 30 01/02/17 22:22 97 30 01/02/17 21:16 97 T-piece 7.00 40 I/O 01/02/17 01/02/17 01/02/17 01/03/17 01/03/17 01/03/17 07:00 15:00 23:00 07:00 15:00 23:00 Intake Total 968 ml 844 ml 931 ml 817 ml Output Total 1100 ml 1300 ml 1900 ml 100 ml Balance -132 ml -456 ml -969 ml 717 ml Tube Feeding 768 ml 604 ml 531 ml 577 ml Other 200 ml 240 ml 400 ml 240 ml Output Urine Total 1000 ml 1200 ml 1400 ml Stool Total 100 ml 100 ml 500 ml 100 ml # Voids 4 Result Diagram: 01/03/17 0401 01/03/17 0401 Objective Remarks GENERAL: Obese middle-aged white male who is a awake. Has 2 +edema of the extremities. HEENT: Head normocephalic. Pupils are reactive. Sclerae are clear . NECK: Supple. No bruits or thyroid enlargement. No venous distension. CHEST: Equal movements with diminished breath sounds at the bases, and Occ basal Crackles . HEART: The heart sounds are regular. S1 and S2 with no definite murmur. ABDOMEN: Obese, protuberant. No masses, no organomegaly. EXTREMITIES: Mild edema. Decreased peripheral pulses. Reflexes 1+. The patient has some weakness of his lower extremities.and left arm. 1 + edema of all limbs. SKIN: Dry and scaly. Assessment and Plan Assessment and Plan IMPRESSION 1. Resolving respiratory failure. 2. Basilar pneumonia and hypoxemia. 3. COPD and chronic bronchitis. 4. Possible obstructive sleep apnea syndrome. 5. Hypertension. 6. Atrial fibrillation and CHF. 7. Severe sepsis, resolved. Plan : 1. Place on BIPAP 12/5 CM FIO2 28 % at HS 2. Continue Diuretics. 3.Prednisone 5 mg daily. 4. T bar 30 % daytime 7 am to 7 pm. 5. PT Evaluation.Up with help 6. Duoneb nebs qid. 7. Tube feeds at 55 CC. 8. Consult wound care 9. Continue S/Q Lovenox 40 mg daily. 10. Will change trach to fenestrated and with cuff. 11. PM valve as tolerated. Laura Haile MD Jan 03, 2017 20:46
[2017-01-03] MEDS: ESCITALOPRAM OXALATE 10 MG TAB PO SCH (21:47)
[2017-01-04] VITALS (15 sets, daily range): BP systolic 97–116; BP diastolic 55–77; PULSE 54–66; RESP 13–20; TEMP 97.8–98.6; O2SAT 82–100
[2017-01-04] MEDS: INSULIN NovoLIN REGULAR SUPPLEMENTAL SCALE SQ SCH ×4 (02:00→20:00)
[2017-01-04] MEDS: cefTAZidime/AVIBACTAM INJ 2.5 GM in SODIUM CHLORIDE 0.9% INJ 50 ML IV SCH ×3 (02:35→18:07)
[2017-01-04] MEDS: CHLORHEXIDINE GLUCONATE 2 % 1 PACK (2 CLOTHS) TOP SCH (03:35)
[2017-01-04 05:10] LABS: HEMATOCRIT 30.8 % (39.0-51.0); MEAN CELL VOLUME 93.4 FL (80.0-100.0); MEAN CORPUSCULAR HEMOGLOBIN 30.4 PG (27.0-34.0); MEAN CORPUSCULAR HGB CONC 32.5 % (32.0-36.0); PLATELET COUNT 442 TH/MM3 (150-450); RED BLOOD COUNT 3.29 MIL/MM3 (4.50-5.90); RED CELL DISTRIBUTION WIDTH 15.1 % (11.6-17.2); REVIEW FLAG FINAL
[2017-01-04 05:24] LABS: APTT (PATIENT) 25.3 SEC (24.3-30.1)
[2017-01-04] MEDS: METOPROLOL TARTRATE 50 MG TAB PO SCH ×3 (05:47→17:05)
[2017-01-04] MEDS: DILTIAZEM HCL 90 MG TAB PO SCH ×3 (05:47→17:05)
[2017-01-04] MEDS: METOCLOPRAMIDE HCL SYRUP 10 MG/10 ML UDC PO SCH ×2 (05:47→14:58)
[2017-01-04] MEDS: RESP: BUDESONIDE 0.5 MG/2 ML NEB NEB SCH ×2 (07:27→19:33)
[2017-01-04] MEDS: SODIUM HYPOCHLORITE 0.125% 500 ML BTL TOPICAL SCH ×2 (09:28→22:16)
[2017-01-04] MEDS: ENOXAPARIN SODIUM 40 MG/0.4 ML SYRINGE SQ SCH (09:29)
[2017-01-04] MEDS: SODIUM CHLORIDE 1 GRAM TAB PO SCH ×2 (09:29→22:15)
[2017-01-04] MEDS: ARTIFICIAL TEARS OPTH OINT 3.5 APPLIC/3.5 GM TUBO EACH EYE SCH ×2 (09:30→22:09)
[2017-01-04] MEDS: FUROSEMIDE 20 MG TAB PO SCH (09:30)
[2017-01-04] MEDS: predniSONE 5 MG TAB PO SCH (09:30)
[2017-01-04] MEDS: LACTOBACILLUS ACIDOPHILUS TAB PO SCH ×2 (09:30→22:08)
[2017-01-04] MEDS: FAMOTIDINE 20 MG TAB NG SCH ×2 (09:30→22:08)
[2017-01-04] MEDS: INSULIN DETEMIR 100 UNITS/ML VIAL SQ SCH ×2 (09:31→22:15)
[2017-01-04] MEDS: metroNIDAZOLE 500 MG INJ 100 ML IV SCH ×2 (11:06→17:07)
[2017-01-04] MEDS: LISINOPRIL 10 MG TAB PO SCH (11:24)
[2017-01-04] MEDS: DIGOXIN 0.125 MG TAB PO SCH (11:24)
[2017-01-04] MEDS: AMIODARONE 200 MG TAB OG-TUBE SCH (11:25)
[2017-01-04] MEDS: CHLORHEXIDINE 0.12% (ORAL KIT) 15 ML CUP MT SCH ×2 (11:32→20:00)
--- NOTE | 2017-01-04 12:28 | PD.PN.STU ---
Subjective Remarks Patient states he is doing okay today. No complaints with new T Bar. He enjoys being able to verbally communicate with others since it was installed. He states that he is receiving regular wound care, PT, and bed repositionings. He denies any cough, chest pains, or SOB. Objective Vitals Vital Signs Date Time Temp Pulse Resp B/P (MAP) Pulse Ox O2 Delivery O2 Flow Rate FiO2 01/04/17 10:23 40 01/04/17 08:00 98.1 56 16 97/55 (69) 95 01/04/17 07:28 99 40 01/04/17 07:28 99 BiPAP 40 01/04/17 05:02 99 BiPAP 01/04/17 04:00 65 01/04/17 04:00 98.6 57 13 105/55 (72) 100 01/04/17 03:35 16 01/04/17 03:14 100 BiPAP 01/04/17 03:13 100 50 01/04/17 00:39 97 50 01/04/17 00:00 98.5 65 17 116/63 (80) 98 01/04/17 00:00 65 01/03/17 23:31 99 T-piece 6.00 40 01/03/17 22:29 99 T-piece 6.00 40 01/03/17 20:00 97.6 63 18 99 01/03/17 20:00 63 01/03/17 20:00 97.6 01/03/17 19:28 100 T-piece 6.00 40 01/03/17 18:00 67 01/03/17 16:05 64 01/03/17 16:00 61 01/03/17 16:00 98.2 01/03/17 14:00 66 22 88 I/O 01/03/17 01/03/17 01/03/17 01/04/17 01/04/17 01/04/17 07:00 15:00 23:00 07:00 15:00 23:00 Intake Total 931 ml 967 ml 707 ml Output Total 1900 ml 100 ml 800 ml Balance -969 ml 867 ml -93 ml IV Total 150 ml 150 ml Tube Feeding 531 ml 577 ml 557 ml Other 400 ml 240 ml Output Urine Total 1400 ml 800 ml Stool Total 500 ml 100 ml # Voids 4 GENERAL: Obese middle-aged white male who is a awake and sitting in bed. He is communicating more today. Good eye contact. Able to verbally communicate. HEENT: Head normocephalic. Pupils are reactive. Sclerae are injected. NECK: Supple. No thyroid enlargement. No venous distension. Erythematous ulcer, clear margins at site of T Bar. CHEST: Equal movements with diminished breath sounds at the bases. Occ Crackles. No wheezes. HEART: The heart sounds are irregular. S1 and S2 with no definite murmur. ABDOMEN: Obese, protuberant. No masses, no organomegaly. EXTREMITIES: Mild edema. Decreased peripheral pulses. The patient has some weakness of his lower extremities and left arm but is able to move all extremities against gravity. 2 + edema of all limbs. SKIN: Dry and scaly. Unable to examine sacral region. RECTAL: Exam is deferred. Result Diagram: 01/04/17 0354 01/03/17 0401 A/P Assessment and Plan IMPRESSION 1. Resolving respiratory failure. 2. Basilar pneumonia and hypoxemia. 3. COPD and chronic bronchitis. 4. Possible obstructive sleep apnea syndrome. 5. Hypertension. 6. Atrial fibrillation and CHF. 7. Severe sepsis, resolved. Plan : 1. Place on BIPAP 12/5 CM FIO2 28 % at HS 2. Continue Diuretics. 3. Prednisone 5 mg daily. 4. T bar 30 % daytime 7 am to 7 pm. 5. PT Evaluation 6. DuoNeb nebs four times daily 7. Tube feeds at 55 CC. 8. Continue wound care treatment 9. Reposition patient every 2 hours 9. Continue S/Q Lovenox 40 mg daily 10. Continue fenestrated trach with cuff 11. PM valve as tolerated Khris Yap Jan 04, 2017 12:28
--- NOTE | 2017-01-04 15:24 | HHI.PR ---
Subjective Remarks awake and alert out of bed daily with PT tolerating tube feedings- Objective Vitals Vital Signs Date Time Temp Pulse Resp B/P (MAP) Pulse Ox O2 Delivery O2 Flow Rate FiO2 01/04/17 12:00 97.8 65 18 106/59 (75) 82 01/04/17 10:23 40 01/04/17 08:00 98.1 56 16 97/55 (69) 95 01/04/17 07:28 99 40 01/04/17 07:28 99 BiPAP 40 01/04/17 05:02 99 BiPAP 01/04/17 04:00 65 01/04/17 04:00 98.6 57 13 105/55 (72) 100 01/04/17 03:35 16 01/04/17 03:14 100 BiPAP 01/04/17 03:13 100 50 01/04/17 00:39 97 50 01/04/17 00:00 98.5 65 17 116/63 (80) 98 01/04/17 00:00 65 01/03/17 23:31 99 T-piece 6.00 40 01/03/17 22:29 99 T-piece 6.00 40 01/03/17 20:00 97.6 63 18 99 01/03/17 20:00 63 01/03/17 20:00 97.6 01/03/17 19:28 100 T-piece 6.00 40 01/03/17 18:00 67 01/03/17 16:05 64 01/03/17 16:00 61 01/03/17 16:00 98.2 I/O 01/03/17 01/03/17 01/03/17 01/04/17 01/04/17 01/04/17 07:00 15:00 23:00 07:00 15:00 23:00 Intake Total 931 ml 967 ml 707 ml Output Total 1900 ml 100 ml 800 ml Balance -969 ml 867 ml -93 ml IV Total 150 ml 150 ml Tube Feeding 531 ml 577 ml 557 ml Other 400 ml 240 ml Output Urine Total 1400 ml 800 ml Stool Total 500 ml 100 ml # Voids 4 Result Diagram: 01/04/17 0354 01/03/17 0401 Imaging Last Impressions Lower Extremity Ultrasound 01/01/17 0000 Signed Impressions: Service Date/Time: Sunday, January 01, 2017 13:40 - CONCLUSION: 1. No DVT is identified within either lower extremity. 2. Complex cystic appearing collection in the popliteal fossa and calf region on the left measuring up to 18.6 cm. 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 Jayson Levin MD Chest X-Ray 12/30/16 0600 Signed Impressions: Service Date/Time: Friday, December 30, 2016 04:25 - CONCLUSION: No significant interval change. Persistent bilateral lower lung zone consolidation versus atelectasis and pleural effusions. Austin Funes MD Chest Ultrasound 12/27/16 0000 Signed Impressions: Service Date/Time: December 19:04 - CONCLUSION: Minimal right pleural effusion and the patient was not marked for thoracentesis. Jhonathan Dietz MD Abdomen X-Ray 12/19/16 0000 Signed Impressions: Service Date/Time: Monday, December 19, 2016 07:55 - CONCLUSION: Mildly dilated loops of small and large bowel characteristic of ileus. Fito Joshua MD Abdomen/Pelvis CT 12/15/16 0000 Signed Impressions: Service Date/Time: Thursday, December 15, 2016 10:50 - CONCLUSION: 1. Distended bowel especially the small bowel and the cecum. This is nonspecific. A transition point is not seen. This could relate to ileus. Oral contrast does extend to the rectum. 2. Bibasilar areas of consolidation at the lung bases. There also is a possible small pneumothorax on the right. The patient does have a right chest tube in place. 3. G-tube. 4. Distended gallbladder. 5. Increased soft tissue density in the left lateral abdominal wall which could be from prior trauma or edema. Jayson Soto MD Cervical Spine MRI 12/03/16 0000 Signed Impressions: Service Date/Time: Saturday, December 03, 2016 13:13 - CONCLUSION: Severely limited exam. I believe there is increased signal in the cervical cord mid C3 to mid C5. Ward Kim MD FACR Brain MRI 12/03/16 0000 Signed Impressions: Service Date/Time: Saturday, December 03, 2016 13:13 - CONCLUSION: 1. There is a small area of abnormal T2 signal in the left frontal cortex this is unchanged from the previous examination dated 11/26/16. This is nonspecific in appearance on the MRI. Differential considerations would be a small area of gliosis versus an old area of contusion. Follow up examination in 6 months to document stability would be warranted. 2. No findings to indicate acute cortical infarction are identified. Román Kim MD Gastrostomy Tube Placement 11/30/16 0000 Signed Impressions: Service Date/Time: Wednesday, November 30, 2016 12:22 - CONCLUSION: Uncomplicated gastrostomy tube placement as above. Jorge Jolly MD Liver Ultrasound 11/09/16 0000 Signed Impressions: Service Date/Time: Wednesday, November 09, 2016 13:58 - CONCLUSION: Sono dense liver without duct dilatation. 4 mm common duct. Ward Kim MD FACR Chest CT 11/06/16 0000 Signed Impressions: Service Date/Time: Sunday, November 06, 2016 11:24 - CONCLUSION: 1. Dense bilateral posterior lower lobe airspace consolidation consistent with aspiration versus less likely pneumonia. 2. Linear consolidation in the right middle lobe consistent with atelectasis versus aspiration. 3. Trace left and small right pleural effusions. 4. Support lines and tubes in good position. 5. Prominent coronary artery calcifications. Nico Vaughan MD Head CT 11/05/16 0000 Signed Impressions: Service Date/Time: Saturday, November 05, 2016 21:43 - CONCLUSION: 1. No acute intracranial abnormalities. Pansinus fluid opacification. Cristofer De Santiago MD Carotid Artery Ultrasound 10/25/16 0000 Signed Impressions: Service Date/Time: September 08:27 - CONCLUSION: Mild to moderate plaque in both carotid systems with less than 40%% diameter stenosis by velocity criteria. Jhonathan Dietz MD CT Angiography 10/25/16 0000 Signed Impressions: Service Date/Time: September 06:12 - CONCLUSION: 1. Negative for pulmonary embolism. 2. There is a fairly large area of masslike consolidation in the medial right lung involving posterior segment right upper lobe and medial aspect of right lower lobe. There is associated right hilar and mediastinal adenopathy measuring up to 2.1 cm. Differential diagnosis includes pneumonia or underlying lung neoplasm. Close followup imaging recommended after treatment for pneumonia, to assess for underlying mass. Cristofer De Santiago MD Objective Remarks awake and alert ff all commands anicteric t piece in place lungs-no rales or wheezes regular rhythm abdomen soft, nontender extremities + edema, good peripheral pulses moves all extremities spontaneously condom catheter A/P Assessment and Plan Assessment and Plan Neuro/Psych: Metabolic encephalopathy - resolved. CIM/SHEFALI S/p Neuromuscular paralysis for Prone therapy Syncope Depression MRI C-spine showing increased signals C3-C5 region. Dr Riggins reviewed MRI spine- not sure about increased signal in cord, could be cervical hyperextension injury, from intubation according to him. Unable to do flexion- extension films of the C-spine (trached patient). 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 Haloperidol 5mg iv q4h prn for agitation. Escitalopram 10 mg qhs or depression from 12/07/16. MRI brain 11/26: Small focal signal abnormality in the superior medial left frontal lobe. Could be sequela from prior insult such as a contusion or small infarct. No acute infarct MRI brain 12/[address] on admission revealed no acute intracranial findings, CT brain 11/05- no acute findings. opacification of sinuses. EEG 11/20: No seizure activity. EEG 11/09: severe encephalopathy PT/OT for range of motion, up to stretcher chair as tolerated CV: Hypotension-resolved Atrial fib/ flutter with RVR - rate controlled.- telemetry in SR Hypertension on amiodarone to 200mg po daily for maintenance dose. digoxin 0.125 mg po daily. recheck level 01/04 and s47bonw as long as stable. PO Diltiazem 90 mg PO q6hr, metoprolol 50mg Q6 Coumadin and heparin 12/10 held due to left popliteal fossa hematoma. now on lovenox for prophylactic dose since 12/24. given high risk for bleeding complication and low CHADS-VaSC risk, risk/benefit at this time in favor of holding full anticoagulation. Echo 10/25 EF 60-65%. Repeat echo with bubble study: 11/22: No shunt seen Resp: Acute, now chronic hypoxemic Respiratory failure s/p trach 11/27 Spontaneous Right sided PTX secondary to barotrauma - resolved. COPD exacerbation - resolved. Pneumonia most likely community-acquired - resolved. Obesity hypoventilation syndrome Tobacco use disorder albuterol aerosols every 2 hours PRN. Ventilator bundle on T piece 28%- on fenestrated- Passimuir Budesonide 0.5 mg/2 mL aerosols twice a day. on Prednisone 10 mg daily continue to wean s/p trach 11/[address] Martin #8 [place]. Pulmonary following. appreciate assistance. s/p 20Fr CT placed for right PTX 11/23, monitor CT drainage. d/c chest tube . CT pulmonary angio revealed no pulmonary embolus. Masslike consolidation in the posterior right upper lobe and medial right lower lobe. Lymphadenopathy to 1 cm right hilum and subcarinal. Atelectasis left lower lobe. Discontinued Prone therapy 11/02/16. continue t-piece as tolerated. GI: Ileus - resolved.- now with loose stools Morbid Obesity Elevated LFT's- now within normal. PEG tube placement 11/30. US liver: No ductal dilatation tube feeds with vital high-protein currently at 50 cc/hr. Metoclopramide 10 mg every 6 hours, change to PO.- will DC with the diarreha No Cholecystostomy tube recommended by Dr. Nguyen. Recommended advance diet as tolerated Famotidine 20 milligrams mg twice a day for GI prophylaxis /renal/FEN: Hyponatremia Hypopotassemia Diarrhea: C diff is negative. on lactinex and imodium. Monitor lytes Monitor renal function, I/O's, electrolytes replacement per protocol. Currently on sodium chloride 1 g every 12 hours Endo: Hyperglycemia SSI Q6h with Regular Insulin mild protocol for glycemic control. Previously insulin detemir 62 units twice a day. now on 8 units twice a day. Monitor BS and adjust levemir dose as needed . Heme: Normocytic anemia - stable. Leukocytosis L popliteal fossa hematoma - stable. Monitor closely for compartment syndrome ID: Severe sepsis - resolved. HCAP - resolved. Leukocytosis Per orthopedic podiatrist, pt has a sacrococcygeal Wound measuring 4cm x 3cm x ~3.2cm. ~ 50% yellow loosely adherent slough is noted at the base, with ~50% pink tissue. I did evaluate the wound. Wound is foul smelling on exam today w some yellow/ purulent discharge. Wound cultures have been obtain. ID has been reconsulted. Wound care physician also has been consulted. piperacillin/tazobactam, d/c'd 12/20. Discontinued vancomycin and micafungin by ID, WBC trending down ID Amanda Haas, F/U ríos culture, C Diff- NGTD. ABX completed 12/11. (piperacillin/tazobactam and sulfamethoxazole/ trimethoprim 800/160 2 tablets 3 times a day) Sputum: Klebsiella, Stenotrophomonas and Pseudomonas 11/27 Sputum cx 11/23: Kleb, Pseudomonas, s/p (ceftriaxone and fluconazole course). ID is following-Dr. Patel s/p ceftriaxone 11/02-11/09 for Enterobacter pneumonia. Repeat sputum Klebsiella sensitive to Rocephin started on Avicaz 01/03 Flagyl DC- 01/04 C-diff PCR is negative Observe clinically off abx. Trend fever curve. GI, famotidine. DVT - on lovenox. s/pIV heparin gtt/Coumadin DCd 12/10 due to left popliteal hematoma. Given bleeding complications with low CHADS-VaSC risk, risk/benefit in favor of holding full anticoagulation. 11/09 Doppler US LE negative for DVT Palliative care is following Patient with slow progression. On T-piece. Pulmonary following. Discharge Planning continue care in ICU Aranza Loza MD Jan 04, 2017 15:24
--- NOTE | 2017-01-04 17:04 | MB ---
cc: ANIA BACON M.D. DATE OF CONSULTATION: 01/04/2017. REASON FOR CONSULTATION: Sacral ulcer. REQUESTING PHYSICIAN: Dr. Patel. HISTORY OF PRESENT ILLNESS: The patient is a 56-year-old male who was admitted on 10/25/2016. At the time, his admitting diagnosis was respiratory failure due to COPD exacerbation and possible pneumonia, obesity, hypoventilation syndrome, tobacco use disorder. The patient was admitted 10/25/2016. Since the patient has been admitted, he has had significant treatment including the placement of a trache. On November 27, he underwent percutaneous tracheostomy in the operating room. The patient is now in the intensive care unit. Consultation was requested regarding evaluation and treatment of his sacral decubitus ulcer. He was recently seen by wound care and at the time the patient had a wound on the posterior right thigh which was shallow full-thickness and considered . In addition, it was noted that he had a sacral ulcer. Consultation is requested regarding evaluation and treatment of the sacral ulcer. PAST MEDICAL HISTORY: On the chart. The patient apparently is doing well as regarding his respiratory problems. PHYSICAL EXAMINATION: VITAL SIGNS: His temperature today is 97.8, pulse of 65, respirations 18, blood pressure 106/59 with a mean of 75. Examination of the sacral area reveals a wound measuring 4 cm x 2 cm x 3.2 cm. There is approximately 50% of loosely adherent slough in the base. There is no evidence of cellulitis. No evidence of infection. Today there is no odor noted. The patient is being treated with Dakin's solution. IMPRESSION: The patient has a sacral decubitus ulcer which may benefit from continued dressing changes. At some point, debridement and placement of a wound VAC could be an option. The patient should continue on the present wound care. MD CORDELIA Vivar/JOSÉ MIGUEL /4:24 PM /4:34 PM
[2017-01-04] MEDS: POTASSIUM CHLORIDE 25 MEQ EFFERVESCENT TAB G-TUBE SCH (17:06)
--- NOTE | 2017-01-04 17:20 | HHI.IDPN ---
Subjective Subjective Remarks persistent diarrhea, repeat C.diff neg again no fever WBC up to 15K remains on Tpiece, heavy secretions growing GNB in sputum seen by Dr Marvin Marshall Zerbaxa flagyl Allergies: Coded Allergies: No Known Allergies (Unverified , 10/25/16) Objective . Vital Signs Date Time Temp Pulse Resp B/P (MAP) Pulse Ox O2 Delivery O2 Flow Rate FiO2 01/04/17 16:00 66 01/04/17 12:00 65 01/04/17 12:00 97.8 65 18 106/59 (75) 82 01/04/17 10:23 40 01/04/17 08:00 98.1 56 16 97/55 (69) 95 01/04/17 07:28 99 40 01/04/17 07:28 99 BiPAP 40 01/04/17 07:19 54 01/04/17 05:02 99 BiPAP 01/04/17 04:00 65 01/04/17 04:00 98.6 57 13 105/55 (72) 100 01/04/17 03:35 16 01/04/17 03:14 100 BiPAP 01/04/17 03:13 100 50 01/04/17 00:39 97 50 01/04/17 00:00 98.5 65 17 116/63 (80) 98 01/04/17 00:00 65 01/03/17 23:31 99 T-piece 6.00 40 01/03/17 22:29 99 T-piece 6.00 40 01/03/17 20:00 97.6 63 18 99 01/03/17 20:00 63 01/03/17 20:00 97.6 01/03/17 19:28 100 T-piece 6.00 40 01/03/17 18:00 67 . Laboratory Tests Test 01/03/17 04:01 01/04/17 03:54 White Blood Count 15.4 TH/MM3 14.0 TH/MM3 Red Blood Count 3.33 MIL/MM3 3.29 MIL/MM3 Hemoglobin 10.0 GM/DL 10.0 GM/DL Hematocrit 31.0 % 30.8 % Mean Corpuscular Volume 93.3 FL 93.4 FL Mean Corpuscular Hemoglobin 30.0 PG 30.4 PG Mean Corpuscular Hemoglobin Concent 32.1 % 32.5 % Red Cell Distribution Width 15.4 % 15.1 % Platelet Count 485 TH/MM3 442 TH/MM3 Mean Platelet Volume 7.3 FL 7.3 FL Neutrophils (%) (Auto) 65.5 % Lymphocytes (%) (Auto) 19.6 % Monocytes (%) (Auto) 10.4 % Eosinophils (%) (Auto) 3.1 % Basophils (%) (Auto) 1.4 % Neutrophils # (Auto) 10.1 TH/MM3 Lymphocytes # (Auto) 3.0 TH/MM3 Monocytes # (Auto) 1.6 TH/MM3 Eosinophils # (Auto) 0.5 TH/MM3 Basophils # (Auto) 0.2 TH/MM3 CBC Comment AUTO DIFF Differential Total Cells Counted 100 Neutrophils % (Manual) 58 % Band Neutrophils % 6 % Lymphocytes % 23 % Monocytes % 8 % Eosinophils % 2 % Neutrophils # (Manual) 10.3 TH/MM3 Myelocytes 3 % Differential Comment FINAL DIFF MANUAL Platelet Estimate HIGH Platelet Morphology Comment NORMAL Laboratory Tests Test 01/03/17 04:01 Blood Urea Nitrogen 15 MG/DL Creatinine 0.22 MG/DL Random Glucose 95 MG/DL Calcium Level 8.7 MG/DL Sodium Level 134 MEQ/L Potassium Level 3.7 MEQ/L Chloride Level 95 MEQ/L Carbon Dioxide Level 29.3 MEQ/L Anion Gap 10 MEQ/L Estimat Glomerular Filtration Rate 444 ML/MIN Microbiology Date/Time Source Procedure Growth Status 01/03/17 18:16 Sputum Endotracheal Gram Stain - Final Resulted 01/03/17 18:16 Sputum Culture - Preliminary Gram Negative Louis Resulted Imaging Last Impressions Lower Extremity Ultrasound 01/01/17 0000 Signed Impressions: Service Date/Time: Sunday, January 01, 2017 13:40 - CONCLUSION: 1. No DVT is identified within either lower extremity. 2. Complex cystic appearing collection in the popliteal fossa and calf region on the left measuring up to 18.6 cm. 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 Jayson Levin MD Chest X-Ray 12/30/16 0600 Signed Impressions: Service Date/Time: Friday, December 30, 2016 04:25 - CONCLUSION: No significant interval change. Persistent bilateral lower lung zone consolidation versus atelectasis and pleural effusions. Austin Funes MD Chest Ultrasound 12/27/16 0000 Signed Impressions: Service Date/Time: December 19:04 - CONCLUSION: Minimal right pleural effusion and the patient was not marked for thoracentesis. Jhonathan Dietz MD Abdomen X-Ray 12/19/16 0000 Signed Impressions: Service Date/Time: Monday, December 19, 2016 07:55 - CONCLUSION: Mildly dilated loops of small and large bowel characteristic of ileus. Fito Joshua MD Abdomen/Pelvis CT 12/15/16 0000 Signed Impressions: Service Date/Time: Thursday, December 15, 2016 10:50 - CONCLUSION: 1. Distended bowel especially the small bowel and the cecum. This is nonspecific. A transition point is not seen. This could relate to ileus. Oral contrast does extend to the rectum. 2. Bibasilar areas of consolidation at the lung bases. There also is a possible small pneumothorax on the right. The patient does have a right chest tube in place. 3. G-tube. 4. Distended gallbladder. 5. Increased soft tissue density in the left lateral abdominal wall which could be from prior trauma or edema. Jayson Soto MD Cervical Spine MRI 12/03/16 0000 Signed Impressions: Service Date/Time: Saturday, December 03, 2016 13:13 - CONCLUSION: Severely limited exam. I believe there is increased signal in the cervical cord mid C3 to mid C5. Ward Kim MD FACR Brain MRI 12/03/16 0000 Signed Impressions: Service Date/Time: Saturday, December 03, 2016 13:13 - CONCLUSION: 1. There is a small area of abnormal T2 signal in the left frontal cortex this is unchanged from the previous examination dated 11/26/16. This is nonspecific in appearance on the MRI. Differential considerations would be a small area of gliosis versus an old area of contusion. Follow up examination in 6 months to document stability would be warranted. 2. No findings to indicate acute cortical infarction are identified. Román Kim MD Gastrostomy Tube Placement 11/30/16 0000 Signed Impressions: Service Date/Time: Wednesday, November 30, 2016 12:22 - CONCLUSION: Uncomplicated gastrostomy tube placement as above. Jorge Jolly MD Liver Ultrasound 11/09/16 0000 Signed Impressions: Service Date/Time: Wednesday, November 09, 2016 13:58 - CONCLUSION: Sono dense liver without duct dilatation. 4 mm common duct. Ward Kim MD FACR Chest CT 11/06/16 0000 Signed Impressions: Service Date/Time: Sunday, November 06, 2016 11:24 - CONCLUSION: 1. Dense bilateral posterior lower lobe airspace consolidation consistent with aspiration versus less likely pneumonia. 2. Linear consolidation in the right middle lobe consistent with atelectasis versus aspiration. 3. Trace left and small right pleural effusions. 4. Support lines and tubes in good position. 5. Prominent coronary artery calcifications. iNco Vaughan MD Head CT 11/05/16 0000 Signed Impressions: Service Date/Time: Saturday, November 05, 2016 21:43 - CONCLUSION: 1. No acute intracranial abnormalities. Pansinus fluid opacification. Cristofer De Santiago MD Carotid Artery Ultrasound 10/25/16 0000 Signed Impressions: Service Date/Time: , October 25, 2016 08:27 - CONCLUSION: Mild to moderate plaque in both carotid systems with less than 40%% diameter stenosis by velocity criteria. Jhonathan Dietz MD CT Angiography 10/25/16 0000 Signed Impressions: Service Date/Time: , October 25, 2016 06:12 - CONCLUSION: 1. Negative for pulmonary embolism. 2. There is a fairly large area of masslike consolidation in the medial right lung involving posterior segment right upper lobe and medial aspect of right lower lobe. There is associated right hilar and mediastinal adenopathy measuring up to 2.1 cm. Differential diagnosis includes pneumonia or underlying lung neoplasm. Close followup imaging recommended after treatment for pneumonia, to assess for underlying mass. Cristofer De Santiago MD Physical Exam CONSTITUTIONAL/GENERAL: This is a morbidly obese patient, TUBES/LINES/DRAINS: SKIN: no rash NECK: trach in place, site OK, large amount of secretions CARDIOVASCULAR: No murmurs, rgular rat, rhythm No JVD. Peripheral pulses symmetric. RESPIRATORY/CHEST: Symmetric, unlabored respirations. coarse BS, scattered rhonchi GASTROINTESTINAL: Abdomen is soft , not distended, not tnder , no guarding or rebound. No hepato-splenomegaly, or palpable masses. No guarding. Bowel sounds present. Dignishiled in place with light brown liquid stool GENITOURINARY: Without palpable bladder distension. MUSCULOSKELETAL: Extremities without clubbing, cyanosis, + generalysed edema, ecchymosis and indurated of L calf, NEUROLOGICAL: awake, alert, communicates and follows commands PSYCHIATRIC: calm Assessment & Plan Remarks PNA, Kleb pneumo - failrly sensitive - PSAE , Stenotrophomonas and Kleb in the sputum ? unclear is Steno malt is a coloniser vs a true pathogen, but improved after Bactrim was introdused ARDS Acute VDRF, tolerating weaning - sp trach, on Tpiece R sided PTX sp CT Abx associated diarrhea, C.diff negative agasin 12/15 Abnormal UA, CANDIDURIA Persiastent leukocytosis and bandemia - ? new PNA - h/o MDRO Pseudomonas Sacral decub, doubt infection - dw Dr Wong Diarrhea, abx associated REC's: fu WBC cont Avicaz dc flagyl fu sputum clx untill final will adjust abx per clx agree qwith plan of plastic surgery to debride the necrotic wound Mariana Patel MD Jan 04, 2017 17:20
--- NOTE | 2017-01-04 19:27 | HHI.PR ---
Subjective Remarks Alert and doing well On a T Bar FIO2 30 % .Mild trach secretions. Needs PT.Was up in bed. Objective Vital Signs Date Time Temp Pulse Resp B/P (MAP) Pulse Ox O2 Delivery O2 Flow Rate FiO2 01/04/17 18:06 17 01/04/17 16:00 98.0 66 20 115/77 (90) 96 01/04/17 16:00 66 01/04/17 12:00 65 01/04/17 12:00 97.8 65 18 106/59 (75) 82 01/04/17 10:23 40 01/04/17 08:00 98.1 56 16 97/55 (69) 95 01/04/17 07:28 99 40 01/04/17 07:28 99 BiPAP 40 01/04/17 07:19 54 01/04/17 05:02 99 BiPAP 01/04/17 04:00 65 01/04/17 04:00 98.6 57 13 105/55 (72) 100 01/04/17 03:14 100 BiPAP 01/04/17 03:13 100 50 01/04/17 00:39 97 50 01/04/17 00:00 98.5 65 17 116/63 (80) 98 01/04/17 00:00 65 01/03/17 23:31 99 T-piece 6.00 40 01/03/17 22:29 99 T-piece 6.00 40 01/03/17 20:00 97.6 63 18 99 01/03/17 20:00 63 01/03/17 20:00 97.6 01/03/17 19:28 100 T-piece 6.00 40 I/O 01/03/17 01/03/17 01/03/17 01/04/17 01/04/17 01/04/17 07:00 15:00 23:00 07:00 15:00 23:00 Intake Total 931 ml 967 ml 707 ml 100 ml 724 ml Output Total 1900 ml 100 ml 800 ml 800 ml Balance -969 ml 867 ml -93 ml 100 ml -76 ml IV Total 150 ml 150 ml 100 ml 200 ml Tube Feeding 531 ml 577 ml 557 ml 524 ml Other 400 ml 240 ml Output Urine Total 1400 ml 800 ml 800 ml Stool Total 500 ml 100 ml # Voids 4 Result Diagram: 01/04/17 0354 01/03/17 0401 Objective Remarks GENERAL: Obese middle-aged white male who is a awake. Has 2 +edema of the extremities. HEENT: Head normocephalic. Pupils are reactive. NECK: Supple. No bruits or thyroid enlargement. No venous distension. CHEST: Equal movements with diminished breath sounds at the bases, and Occ basal Crackles . HEART: The heart sounds are regular. S1 and S2 with no definite murmur. ABDOMEN: Obese, protuberant. No masses, no organomegaly. EXTREMITIES: Mild edema. Decreased peripheral pulses. Reflexes 1+. The patient has some weakness of his lower extremities.and left arm. 1 + edema of all limbs. SKIN: Dry and scaly. Assessment and Plan Assessment and Plan IMPRESSION 1. Resolving respiratory failure. 2. Basilar pneumonia and hypoxemia. 3. COPD and chronic bronchitis. 4. Possible obstructive sleep apnea syndrome. 5. Hypertension. 6. Atrial fibrillation and CHF. 7. Severe sepsis, resolved. Plan : 1. Place on BIPAP 12/5 CM FIO2 30 % at HS 2. Continue Diuretics. 3. Prednisone 5 mg daily. 4. T bar 30 % daytime 7 am to 7 pm. 5. PT Evaluation.Up with help 6. Duoneb nebs qid. 7. Tube feeds at 55 CC. 8. Consult wound care 9. Continue S/Q Lovenox 40 mg daily. 10. Chest Xray in am 11. PM valve as tolerated. Laura Haile MD Jan 04, 2017 19:27
[2017-01-04] MEDS: ESCITALOPRAM OXALATE 10 MG TAB PO SCH (22:08)
[2017-01-05] VITALS (27 sets, daily range): BP systolic 90–122; BP diastolic 51–71; PULSE 54–86; RESP 16–26; TEMP 98–99.9; O2SAT 82–99
[2017-01-05] MEDS: metroNIDAZOLE 500 MG INJ 100 ML IV SCH ×2 (01:00→09:00)
[2017-01-05] MEDS: INSULIN NovoLIN REGULAR SUPPLEMENTAL SCALE SQ SCH ×4 (02:00→20:00)
[2017-01-05] MEDS: cefTAZidime/AVIBACTAM INJ 2.5 GM in SODIUM CHLORIDE 0.9% INJ 50 ML IV SCH ×3 (02:34→17:54)
[2017-01-05] MEDS: CHLORHEXIDINE GLUCONATE 2 % 1 PACK (2 CLOTHS) TOP SCH (04:00)
--- NOTE | 2017-01-05 05:19 | RADRPT ---
EXAM DATE/TIME: 01/05/2017 04:00 [place] COMPARISON: CHEST SINGLE AP, December 30, 2016, 4:25. INDICATIONS : Evaluate for edema MEDICAL HISTORY : Hypercholesterolemia. Hypertension Chronic obstructive pulmonary disease. SURGICAL HISTORY : None. ENCOUNTER: Subsequent ACUITY: 1 month PAIN SCORE: Non-responsive. LOCATION: Bilateral chest FINDINGS: The cardiac silhouette is enlarged in transverse diameter. A tracheostomy tube is in place in the mid line. There is prominence of the central pulmonary vasculature with indistinct vascular margins ruiz tible with vascular congestion but no evidence of overt failure. Small bilateral pleural effusions ar e identified. CONCLUSION: 1. Cardiomegaly and findings of vascular congestion without overt failure. The findings are improved when compared with the prior exam. Diego Callahan MD on January 05, 2017 at 5:17 Board Certified Radiologist. This report was verified electronically.
[2017-01-05 05:26] LABS: APTT (PATIENT) 27.2 SEC (24.3-30.1)
[2017-01-05] MEDS: DILTIAZEM HCL 90 MG TAB PO SCH ×4 (06:00→17:53)
[2017-01-05] MEDS: METOPROLOL TARTRATE 50 MG TAB PO SCH ×4 (06:00→17:53)
[2017-01-05] MEDS: LACTOBACILLUS ACIDOPHILUS TAB PO SCH ×2 (08:56→22:16)
[2017-01-05] MEDS: predniSONE 5 MG TAB PO SCH (08:56)
[2017-01-05] MEDS: FUROSEMIDE 20 MG TAB PO SCH (08:57)
[2017-01-05] MEDS: FAMOTIDINE 20 MG TAB NG SCH ×2 (08:57→22:16)
[2017-01-05] MEDS: AMIODARONE 200 MG TAB OG-TUBE SCH (08:57)
[2017-01-05] MEDS: SODIUM CHLORIDE 0.9% FLUSH 10 ML FLUSH IVF SCH (08:57)
[2017-01-05] MEDS: SODIUM CHLORIDE 1 GRAM TAB PO SCH (08:57)
[2017-01-05] MEDS: POTASSIUM CHLORIDE 25 MEQ EFFERVESCENT TAB G-TUBE SCH (08:58)
[2017-01-05] MEDS: INSULIN DETEMIR 100 UNITS/ML VIAL SQ SCH ×2 (08:58→22:16)
[2017-01-05] MEDS: DIGOXIN 0.125 MG TAB PO SCH (08:58)
[2017-01-05] MEDS: ENOXAPARIN SODIUM 40 MG/0.4 ML SYRINGE SQ SCH (08:59)
[2017-01-05] MEDS: LISINOPRIL 10 MG TAB PO SCH (09:00)
[2017-01-05] MEDS: ARTIFICIAL TEARS OPTH OINT 3.5 APPLIC/3.5 GM TUBO EACH EYE SCH ×2 (09:01→22:17)
[2017-01-05] MEDS: CHLORHEXIDINE 0.12% (ORAL KIT) 15 ML CUP MT SCH (09:02)
[2017-01-05] MEDS: SODIUM HYPOCHLORITE 0.125% 500 ML BTL TOPICAL SCH ×2 (09:02→22:16)
[2017-01-05] MEDS: RESP: BUDESONIDE 0.5 MG/2 ML NEB NEB SCH ×2 (09:14→20:09)
--- NOTE | 2017-01-05 14:21 | HHI.PR ---
Subjective Remarks awake and alert tolerating tube feedings still with loose stools Objective Vitals Vital Signs Date Time Temp Pulse Resp B/P (MAP) Pulse Ox O2 Delivery O2 Flow Rate FiO2 01/05/17 09:30 61 18 116/71 (86) 97 01/05/17 09:20 97 Venturi Mask 42 01/05/17 09:14 97 T-piece 40 01/05/17 09:00 57 16 108/59 (75) 98 01/05/17 08:31 56 16 105/53 (70) 97 01/05/17 08:00 99.9 01/05/17 08:00 54 16 90/51 (64) 96 01/05/17 08:00 60 01/05/17 04:00 63 01/05/17 04:00 98.0 63 25 109/59 (76) 96 01/05/17 03:46 16 01/05/17 03:12 99 BiPAP 01/05/17 03:09 99 40 01/05/17 00:00 71 01/05/17 00:00 98.1 71 16 117/53 (74) 98 01/04/17 23:25 99 BiPAP 01/04/17 23:19 99 40 01/04/17 20:00 63 01/04/17 20:00 98.3 63 16 104/63 (77) 98 01/04/17 19:40 98 40 01/04/17 16:00 98.0 66 20 115/77 (90) 96 01/04/17 16:00 66 I/O 01/04/17 01/04/17 01/04/17 01/05/17 01/05/17 01/05/17 07:00 15:00 23:00 07:00 15:00 23:00 Intake Total 707 ml 100 ml 724 ml 571 ml 50 ml Output Total 800 ml 800 ml 1175 ml Balance -93 ml 100 ml -76 ml -604 ml 50 ml IV Total 150 ml 100 ml 200 ml 50 ml Tube Feeding 557 ml 524 ml 571 ml Output Urine Total 800 ml 800 ml 1175 ml Stool Total 0 ml Result Diagram: 01/04/17 0354 01/05/17 035 Imaging Last Impressions Chest X-Ray 01/05/17 06 Signed Impressions: Service Date/Time: Thursday, January 05, 2017 04:00 - CONCLUSION: 1. Cardiomegaly and findings of vascular congestion without overt failure. The findings are improved when compared with the prior exam. Diego Callahan MD Lower Extremity Ultrasound 01/01/17 0000 Signed Impressions: Service Date/Time: Sunday, January 01, 2017 13:40 - CONCLUSION: 1. No DVT is identified within either lower extremity. 2. Complex cystic appearing collection in the popliteal fossa and calf region on the left measuring up to 18.6 cm. 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 Jayson Levin MD Chest Ultrasound 12/27/16 0000 Signed Impressions: Service Date/Time: December 19:04 - CONCLUSION: Minimal right pleural effusion and the patient was not marked for thoracentesis. Jhonathan Dietz MD Abdomen X-Ray 12/19/16 0000 Signed Impressions: Service Date/Time: Monday, December 19, 2016 07:55 - CONCLUSION: Mildly dilated loops of small and large bowel characteristic of ileus. Fito Joshua MD Abdomen/Pelvis CT 12/15/16 0000 Signed Impressions: Service Date/Time: Thursday, December 15, 2016 10:50 - CONCLUSION: 1. Distended bowel especially the small bowel and the cecum. This is nonspecific. A transition point is not seen. This could relate to ileus. Oral contrast does extend to the rectum. 2. Bibasilar areas of consolidation at the lung bases. There also is a possible small pneumothorax on the right. The patient does have a right chest tube in place. 3. G-tube. 4. Distended gallbladder. 5. Increased soft tissue density in the left lateral abdominal wall which could be from prior trauma or edema. Jayson Soto MD Cervical Spine MRI 12/03/16 0000 Signed Impressions: Service Date/Time: Saturday, December 03, 2016 13:13 - CONCLUSION: Severely limited exam. I believe there is increased signal in the cervical cord mid C3 to mid C5. Ward Kim MD FACR Brain MRI 12/03/16 0000 Signed Impressions: Service Date/Time: Saturday, December 03, 2016 13:13 - CONCLUSION: 1. There is a small area of abnormal T2 signal in the left frontal cortex this is unchanged from the previous examination dated 11/26/16. This is nonspecific in appearance on the MRI. Differential considerations would be a small area of gliosis versus an old area of contusion. Follow up examination in 6 months to document stability would be warranted. 2. No findings to indicate acute cortical infarction are identified. Román Kim MD Gastrostomy Tube Placement 11/30/16 0000 Signed Impressions: Service Date/Time: Wednesday, November 30, 2016 12:22 - CONCLUSION: Uncomplicated gastrostomy tube placement as above. Jorge Jolly MD Liver Ultrasound 11/09/16 0000 Signed Impressions: Service Date/Time: Wednesday, November 09, 2016 13:58 - CONCLUSION: Sono dense liver without duct dilatation. 4 mm common duct. Ward Kim MD FACR Chest CT 11/06/16 0000 Signed Impressions: Service Date/Time: Sunday, November 06, 2016 11:24 - CONCLUSION: 1. Dense bilateral posterior lower lobe airspace consolidation consistent with aspiration versus less likely pneumonia. 2. Linear consolidation in the right middle lobe consistent with atelectasis versus aspiration. 3. Trace left and small right pleural effusions. 4. Support lines and tubes in good position. 5. Prominent coronary artery calcifications. Nico Vaughan MD Head CT 11/05/16 0000 Signed Impressions: Service Date/Time: Saturday, November 05, 2016 21:43 - CONCLUSION: 1. No acute intracranial abnormalities. Pansinus fluid opacification. Cristofer De Santiago MD Carotid Artery Ultrasound 10/25/16 0000 Signed Impressions: Service Date/Time: September 08:27 - CONCLUSION: Mild to moderate plaque in both carotid systems with less than 40%% diameter stenosis by velocity criteria. Jhonathan Dietz MD CT Angiography 10/25/16 0000 Signed Impressions: Service Date/Time: September 06:12 - CONCLUSION: 1. Negative for pulmonary embolism. 2. There is a fairly large area of masslike consolidation in the medial right lung involving posterior segment right upper lobe and medial aspect of right lower lobe. There is associated right hilar and mediastinal adenopathy measuring up to 2.1 cm. Differential diagnosis includes pneumonia or underlying lung neoplasm. Close followup imaging recommended after treatment for pneumonia, to assess for underlying mass. Cristofer De Santiago MD Objective Remarks awake and alert ff all commands anicteric t piece in place lungs-no rales or wheezes regular rhythm abdomen soft, nontender extremities tr edema, good peripheral pulses moves all extremities spontaneously condom catheter A/P Assessment and Plan 56 years old male Metabolic encephalopathy - resolved. CIM/SHEFALI S/p Neuromuscular paralysis for Prone therapy Syncope Depression MRI C-spine showing increased signals C3-C5 region. Dr Riggins reviewed MRI spine- not sure about increased signal in cord, could be cervical hyperextension injury, from intubation according to him. Unable to do flexion- extension films of the C-spine (trached patient). 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 Haloperidol 5mg iv q4h prn for agitation. Escitalopram 10 mg qhs or depression from 12/07/16. MRI brain 11/26: Small focal signal abnormality in the superior medial left frontal lobe. Could be sequela from prior insult such as a contusion or small infarct. No acute infarct MRI brain 12/[address] on admission revealed no acute intracranial findings, CT brain 11/05- no acute findings. opacification of sinuses. EEG 11/20: No seizure activity. EEG 11/09: severe encephalopathy PT/OT for range of motion, up to stretcher chair as tolerated CV: Hypotension-resolved Atrial fib/ flutter with RVR - rate controlled.- telemetry in SR Hypertension on amiodarone to 200mg po daily for maintenance dose. digoxin 0.125 mg po daily. [id number] as long as stable. PO Diltiazem 90 mg PO q6hr, metoprolol 50mg Q6 Coumadin and heparin 12/10 held due to left popliteal fossa hematoma. on lovenox for prophylactic dose since 12/24. given high risk for bleeding complication and low CHADS-VaSC risk, risk/benefit at this time in favor of holding full anticoagulation. Echo 10/25 EF 60-65%. Repeat echo with bubble study: 11/22: No shunt seen Acute, now chronic hypoxemic Respiratory failure s/p trach 11/27 Spontaneous Right sided PTX secondary to barotrauma - resolved. COPD exacerbation - resolved. Pneumonia most likely community-acquired - resolved. Obesity hypoventilation syndrome Tobacco use disorder albuterol aerosols every 2 hours PRN. Ventilator bundle on T piece 28%- on fenestrated- Passimuir Budesonide 0.5 mg/2 mL aerosols twice a day. on Prednisone 10 mg daily continue to wean s/p trach 11/[address] Martin #8 [place]. Pulmonary following. appreciate assistance. s/p 20Fr CT placed for right PTX 11/23, monitor CT drainage. d/c chest tube . CT pulmonary angio revealed no pulmonary embolus. Masslike consolidation in the posterior right upper lobe and medial right lower lobe. Lymphadenopathy to 1 cm right hilum and subcarinal. Atelectasis left lower lobe. Discontinued Prone therapy 11/02/16. continue t-piece as tolerated. GI: Ileus - resolved.- now with loose stools Morbid Obesity Elevated LFT's- now within normal. PEG tube placement 11/30. US liver: No ductal dilatation tube feeds with vital high-protein currently at 50 cc/hr. Metoclopramide DC due to diarrhea- 01/04 No Cholecystostomy tube recommended by Dr. Nguyen. Recommended advance diet as tolerated Famotidine 20 milligrams mg twice a day for GI prophylaxis will get a speech therapy consult to do swallowing evaluation- /renal/FEN: Hyponatremia- resolved Hypopotassemia -contineu to ff lytes with diarrhea C diff is negative. on lactinex and imodium. Monitor lytes Monitor renal function, I/O's, electrolytes replacement per protocol. Currently on sodium chloride 1 g every 12 hours Endo: Hyperglycemia SSI Q6h with Regular Insulin mild protocol for glycemic control. Previously insulin detemir 62 units twice a day. now on 8 units twice a day. Monitor BS and adjust levemir dose as needed . Heme: Normocytic anemia - stable. Leukocytosis L popliteal fossa hematoma - stable. Monitor closely for compartment syndrome ID: Severe sepsis - resolved. HCAP - resolved. Leukocytosis Per actuary clerk, pt has a sacrococcygeal Wound measuring 4cm x 3cm x ~3.2cm. ~ 50% yellow loosely adherent slough is noted at the base, with ~50% pink tissue. I did evaluate the wound. Wound is foul smelling on exam today w some yellow/ purulent discharge. Wound cultures have been obtain. ID has been reconsulted. Wound care physician also has been consulted. piperacillin/tazobactam, d/c'd 12/20. Discontinued vancomycin and micafungin by ID, ID Amanda Haas, F/U ríos culture, C Diff- NGTD. ABX completed 12/11. (piperacillin/tazobactam and sulfamethoxazole/ trimethoprim 800/160 2 tablets 3 times a day) Sputum: Klebsiella, Stenotrophomonas and Pseudomonas 11/27 Sputum cx 11/23: Kleb, Pseudomonas, s/p (ceftriaxone and fluconazole course). ID is following-Dr. Patel s/p ceftriaxone 11/02-11/09 for Enterobacter pneumonia. Repeat sputum Klebsiella sensitive to Rocephin started on Avicaz and IV flagyl 01/03 C-diff PCR is negative GI, famotidine. DVT - on lovenox. s/pIV heparin gtt/Coumadin DCd 12/10 due to left popliteal hematoma. Given bleeding complications with low CHADS-VaSC risk, risk/benefit in favor of holding full anticoagulation. 11/09 Doppler US LE negative for DVT Palliative care is following Patient with slow progression. On T-piece. Pulmonary following. Discharge Planning continue care in ICU Aranza Loza MD Jan 05, 2017 14:21
--- NOTE | 2017-01-05 15:30 | HHI.PR ---
Subjective Remarks Alert and doing better. CXR improved. On a T Bar FIO2 30 % .Mild trach secretions. Using PM valve. Objective Vital Signs Date Time Temp Pulse Resp B/P (MAP) Pulse Ox O2 Delivery O2 Flow Rate FiO2 01/05/17 09:30 61 18 116/71 (86) 97 01/05/17 09:20 97 Venturi Mask 42 01/05/17 09:14 97 T-piece 40 01/05/17 09:00 57 16 108/59 (75) 98 01/05/17 08:31 56 16 105/53 (70) 97 01/05/17 08:00 99.9 01/05/17 08:00 54 16 90/51 (64) 96 01/05/17 08:00 60 01/05/17 04:00 63 01/05/17 04:00 98.0 63 25 109/59 (76) 96 01/05/17 03:46 16 01/05/17 03:12 99 BiPAP 01/05/17 03:09 99 40 01/05/17 00:00 71 01/05/17 00:00 98.1 71 16 117/53 (74) 98 01/04/17 23:25 99 BiPAP 01/04/17 23:19 99 40 01/04/17 20:00 63 01/04/17 20:00 98.3 63 16 104/63 (77) 98 01/04/17 19:40 98 40 01/04/17 16:00 98.0 66 20 115/77 (90) 96 01/04/17 16:00 66 I/O 01/04/17 01/04/17 01/04/17 01/05/17 01/05/17 01/05/17 07:00 15:00 23:00 07:00 15:00 23:00 Intake Total 707 ml 100 ml 724 ml 571 ml 50 ml Output Total 800 ml 800 ml 1175 ml Balance -93 ml 100 ml -76 ml -604 ml 50 ml IV Total 150 ml 100 ml 200 ml 50 ml Tube Feeding 557 ml 524 ml 571 ml Output Urine Total 800 ml 800 ml 1175 ml Stool Total 0 ml Result Diagram: 01/04/17 0354 01/05/17 0352 Objective Remarks GENERAL: Obese middle-aged white male who is a awake. Has 2 +edema of the extremities. HEENT: Head normocephalic. Pupils are reactive. NECK: Supple. No bruits or thyroid enlargement. No venous distension. CHEST: Equal movements with diminished breath sounds at the bases, with wheezes and Occ basal Crackles . HEART: The heart sounds are regular. S1 and S2 with no definite murmur. ABDOMEN: Obese, protuberant. No masses, no organomegaly. EXTREMITIES: Mild edema. Decreased peripheral pulses. Reflexes 1+. The patient has some weakness of his lower extremities.and left arm. 1 + edema of all limbs. SKIN: Dry and scaly. Assessment and Plan Assessment and Plan IMPRESSION 1. Resolving respiratory failure. 2. Basilar pneumonia and hypoxemia. 3. COPD and chronic bronchitis. 4. Possible obstructive sleep apnea syndrome. 5. Hypertension. 6. Atrial fibrillation and CHF. 7. Severe sepsis, resolved. Plan : 1. Cont on BIPAP 12/5 CM FIO2 30 % at HS 2. Continue Diuretics. 3. Prednisone 5 mg daily. 4. T bar 30 % daytime 7 am to 7 pm. 5. PT Evaluation.Up with help 6. Duoneb nebs qid. 7. Tube feeds at 55 CC. 8. Consult wound care 9. Continue S/Q Lovenox 40 mg daily. 10.BMP saturday 11. PM valve as tolerated. Laura Haile MD Jan 05, 2017 15:30
[2017-01-05] MEDS: ESCITALOPRAM OXALATE 10 MG TAB PO SCH (22:16)
[2017-01-06] VITALS (14 sets, daily range): BP systolic 94–127; BP diastolic 56–74; PULSE 62–94; RESP 13–31; TEMP 98.3–99.2; O2SAT 91–100
[2017-01-06] MEDS: INSULIN NovoLIN REGULAR SUPPLEMENTAL SCALE SQ SCH ×4 (02:00→20:00)
[2017-01-06] MEDS: cefTAZidime/AVIBACTAM INJ 2.5 GM in SODIUM CHLORIDE 0.9% INJ 50 ML IV SCH ×3 (03:24→17:20)
[2017-01-06] MEDS: CHLORHEXIDINE GLUCONATE 2 % 1 PACK (2 CLOTHS) TOP SCH (04:00)
[2017-01-06 04:28] LABS: APTT (PATIENT) 27.1 SEC (24.3-30.1)
[2017-01-06] MEDS: DILTIAZEM HCL 90 MG TAB PO SCH ×5 (06:00→23:42)
[2017-01-06] MEDS: METOPROLOL TARTRATE 50 MG TAB PO SCH ×5 (06:00→23:35)
[2017-01-06] MEDS: CHLORHEXIDINE 0.12% (ORAL KIT) 15 ML CUP MT SCH ×2 (08:00→20:00)
[2017-01-06] MEDS: RESP: BUDESONIDE 0.5 MG/2 ML NEB NEB SCH ×2 (08:03→19:51)
[2017-01-06] MEDS: SODIUM CHLORIDE 0.9% FLUSH 10 ML FLUSH IVF SCH (09:00)
[2017-01-06] MEDS: ARTIFICIAL TEARS OPTH OINT 3.5 APPLIC/3.5 GM TUBO EACH EYE SCH ×2 (09:00→20:26)
[2017-01-06] MEDS: INSULIN DETEMIR 100 UNITS/ML VIAL SQ SCH ×2 (09:00→20:26)
[2017-01-06] MEDS: DIGOXIN 0.125 MG TAB PO SCH (09:01)
[2017-01-06] MEDS: POTASSIUM CHLORIDE 25 MEQ EFFERVESCENT TAB G-TUBE SCH (09:01)
[2017-01-06] MEDS: AMIODARONE 200 MG TAB OG-TUBE SCH (09:02)
[2017-01-06] MEDS: FUROSEMIDE 20 MG TAB PO SCH (09:02)
[2017-01-06] MEDS: LACTOBACILLUS ACIDOPHILUS TAB PO SCH ×2 (09:02→20:26)
[2017-01-06] MEDS: FAMOTIDINE 20 MG TAB NG SCH ×2 (09:02→20:26)
[2017-01-06] MEDS: predniSONE 5 MG TAB PO SCH (09:02)
[2017-01-06] MEDS: SODIUM CHLORIDE 1 GRAM TAB PO SCH ×2 (09:02→20:26)
[2017-01-06] MEDS: LISINOPRIL 10 MG TAB PO SCH (09:02)
[2017-01-06] MEDS: SODIUM HYPOCHLORITE 0.125% 500 ML BTL TOPICAL SCH ×2 (09:03→20:27)
[2017-01-06] MEDS: ENOXAPARIN SODIUM 40 MG/0.4 ML SYRINGE SQ SCH (09:23)
[2017-01-06] MEDS: REMOVE OLD FENTANYL PATCH T-DERMAL SCH (13:54)
--- NOTE | 2017-01-06 14:38 | HHI.PR ---
Subjective Remarks awake and alert, waved to me ff all commands suctioned moderate amount whitish clear secretions from trach Objective Vitals Vital Signs Date Time Temp Pulse Resp B/P (MAP) Pulse Ox O2 Delivery O2 Flow Rate FiO2 01/06/17 12:00 94 01/06/17 12:00 98.6 01/06/17 12:00 94 25 127/70 (89) 95 01/06/17 09:00 77 17 124/69 (87) 96 01/06/17 08:03 98 Venturi Mask 40 01/06/17 08:00 Venturi Mask 40 01/06/17 08:00 62 01/06/17 08:00 98.9 01/06/17 08:00 77 27 117/74 (88) 91 01/06/17 06:00 62 01/06/17 04:00 99.2 62 13 99/62 (74) 96 01/06/17 04:00 62 01/06/17 03:45 100 40 01/06/17 02:00 69 01/06/17 00:30 99 40 01/06/17 00:00 69 01/06/17 00:00 98.5 65 16 114/64 (81) 98 01/05/17 23:30 16 01/05/17 22:00 66 01/05/17 22:00 98.8 65 16 114/64 (81) 98 01/05/17 20:10 96 Trach Collar 40 01/05/17 20:00 86 01/05/17 20:00 98.5 86 18 109/54 (72) 96 01/05/17 16:31 61 01/05/17 16:31 61 20 111/64 (80) 99 01/05/17 16:01 62 22 106/57 (73) 85 01/05/17 16:01 62 01/05/17 16:00 62 01/05/17 16:00 62 22 82 01/05/17 16:00 98.9 01/05/17 15:30 60 18 110/59 (76) 99 01/05/17 15:30 60 01/05/17 15:01 60 22 106/55 (72) 99 01/05/17 15:01 60 01/05/17 15:00 60 17 98 01/05/17 15:00 60 I/O 11/01/1101/05/17 01/05/17 01/06/17 01/06/17 01/06/17 07:00 15:00 23:00 07:00 15:00 23:00 Intake Total 571 ml 50 ml 1134 ml 888 ml Output Total 1175 ml 2350 ml 1100 ml Balance -604 ml 50 ml -1216 ml -212 ml Intake Oral 360 ml IV Total 50 ml 200 ml Tube Feeding 571 ml 534 ml 688 ml Other 240 ml Output Urine Total 1175 ml 2150 ml 1100 ml Stool Total 0 ml 200 ml Result Diagram: 01/04/17 0354 01/05/17 0352 Imaging Last Impressions Chest X-Ray 01/05/17 0600 Signed Impressions: Service Date/Time: Thursday, January 05, 2017 04:00 - CONCLUSION: 1. Cardiomegaly and findings of vascular congestion without overt failure. The findings are improved when compared with the prior exam. Diego Callahan MD Lower Extremity Ultrasound 01/01/17 0000 Signed Impressions: Service Date/Time: Sunday, January 01, 2017 13:40 - CONCLUSION: 1. No DVT is identified within either lower extremity. 2. Complex cystic appearing collection in the popliteal fossa and calf region on the left measuring up to 18.6 cm. 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 Jayson Levin MD Chest Ultrasound 12/27/16 0000 Signed Impressions: Service Date/Time: December 19:04 - CONCLUSION: Minimal right pleural effusion and the patient was not marked for thoracentesis. Jhonathan Dietz MD Abdomen X-Ray 12/19/16 0000 Signed Impressions: Service Date/Time: Monday, December 19, 2016 07:55 - CONCLUSION: Mildly dilated loops of small and large bowel characteristic of ileus. Fito Joshua MD Abdomen/Pelvis CT 12/15/16 0000 Signed Impressions: Service Date/Time: Thursday, December 15, 2016 10:50 - CONCLUSION: 1. Distended bowel especially the small bowel and the cecum. This is nonspecific. A transition point is not seen. This could relate to ileus. Oral contrast does extend to the rectum. 2. Bibasilar areas of consolidation at the lung bases. There also is a possible small pneumothorax on the right. The patient does have a right chest tube in place. 3. G-tube. 4. Distended gallbladder. 5. Increased soft tissue density in the left lateral abdominal wall which could be from prior trauma or edema. Jayson Soto MD Cervical Spine MRI 12/03/16 0000 Signed Impressions: Service Date/Time: Saturday, December 03, 2016 13:13 - CONCLUSION: Severely limited exam. I believe there is increased signal in the cervical cord mid C3 to mid C5. Ward Kim MD FACR Brain MRI 12/03/16 0000 Signed Impressions: Service Date/Time: Saturday, December 03, 2016 13:13 - CONCLUSION: 1. There is a small area of abnormal T2 signal in the left frontal cortex this is unchanged from the previous examination dated 11/26/16. This is nonspecific in appearance on the MRI. Differential considerations would be a small area of gliosis versus an old area of contusion. Follow up examination in 6 months to document stability would be warranted. 2. No findings to indicate acute cortical infarction are identified. Román Kim MD Gastrostomy Tube Placement 11/30/16 0000 Signed Impressions: Service Date/Time: Wednesday, November 30, 2016 12:22 - CONCLUSION: Uncomplicated gastrostomy tube placement as above. Jorge Jolly MD Liver Ultrasound 11/09/16 0000 Signed Impressions: Service Date/Time: Wednesday, November 09, 2016 13:58 - CONCLUSION: Sono dense liver without duct dilatation. 4 mm common duct. Ward Kim MD FACR Chest CT 11/06/16 0000 Signed Impressions: Service Date/Time: Sunday, November 06, 2016 11:24 - CONCLUSION: 1. Dense bilateral posterior lower lobe airspace consolidation consistent with aspiration versus less likely pneumonia. 2. Linear consolidation in the right middle lobe consistent with atelectasis versus aspiration. 3. Trace left and small right pleural effusions. 4. Support lines and tubes in good position. 5. Prominent coronary artery calcifications. Nico Vaughan MD Head CT 11/05/16 0000 Signed Impressions: Service Date/Time: Saturday, November 05, 2016 21:43 - CONCLUSION: 1. No acute intracranial abnormalities. Pansinus fluid opacification. Cristofer De Santiago MD Carotid Artery Ultrasound 10/25/16 0000 Signed Impressions: Service Date/Time: September 08:27 - CONCLUSION: Mild to moderate plaque in both carotid systems with less than 40%% diameter stenosis by velocity criteria. Jhonathan Dietz MD CT Angiography 10/25/16 0000 Signed Impressions: Service Date/Time: September 06:12 - CONCLUSION: 1. Negative for pulmonary embolism. 2. There is a fairly large area of masslike consolidation in the medial right lung involving posterior segment right upper lobe and medial aspect of right lower lobe. There is associated right hilar and mediastinal adenopathy measuring up to 2.1 cm. Differential diagnosis includes pneumonia or underlying lung neoplasm. Close followup imaging recommended after treatment for pneumonia, to assess for underlying mass. Cristofer De Santiago MD Objective Remarks awake and alert ff all commands anicteric t piece in place lungs-- occasional rhonchi regular rhythm abdomen soft, nontender extremities tr edema, good peripheral pulses sacral decubitus- stage 4- deep, edges, clean , no foul, no bleeding bilateral infragluteal area/posterior aspect of the thigh - linear open wounds edges anirudh, left greater than right moves all extremities spontaneously condom catheter A/P Assessment and Plan Assessment and Plan Neuro/Psych: Metabolic encephalopathy - resolved. CIM/SHEFALI S/p Neuromuscular paralysis for Prone therapy Syncope Depression MRI C-spine showing increased signals C3-C5 region. Dr Riggins reviewed MRI spine- not sure about increased signal in cord, could be cervical hyperextension injury, from intubation according to him. Unable to do flexion- extension films of the C-spine (trached patient). 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 Haloperidol 5mg iv q4h prn for agitation. Escitalopram 10 mg qhs or depression from 12/07/16. MRI brain 11/26: Small focal signal abnormality in the superior medial left frontal lobe. Could be sequela from prior insult such as a contusion or small infarct. No acute infarct MRI brain 12/[address] on admission revealed no acute intracranial findings, CT brain 11/05- no acute findings. opacification of sinuses. EEG 11/20: No seizure activity. EEG 11/09: severe encephalopathy PT/OT for range of motion, up to stretcher chair as tolerated CV: Hypotension-resolved Atrial fib/ flutter with RVR - rate controlled.- telemetry in SR Hypertension on amiodarone to 200mg po daily for maintenance dose. digoxin 0.125 mg po daily. recheck level 01/04 and [id number] as long as stable. PO Diltiazem 90 mg PO q6hr, metoprolol 50mg Q6 Coumadin and heparin 12/10 held due to left popliteal fossa hematoma. now on lovenox for prophylactic dose since 12/24. given high risk for bleeding complication and low CHADS-VaSC risk, risk/benefit at this time in favor of holding full anticoagulation. Echo 10/25 EF 60-65%. Repeat echo with bubble study: 11/22: No shunt seen Resp: Acute, now chronic hypoxemic Respiratory failure s/p trach 11/27 Spontaneous Right sided PTX secondary to barotrauma - resolved. COPD exacerbation - resolved. Pneumonia most likely community-acquired - resolved. Obesity hypoventilation syndrome Tobacco use disorder albuterol aerosols every 2 hours PRN. Ventilator bundle on T piece %- on fenestrated- Passimuir Budesonide 0.5 mg/2 mL aerosols twice a day. on Prednisone 10 mg daily continue to wean s/p trach 11/[address] Martin #8 [place]. Pulmonary following. appreciate assistance. s/p 20Fr CT placed for right PTX 11/23, monitor CT drainage. d/c chest tube . CT pulmonary angio revealed no pulmonary embolus. Masslike consolidation in the posterior right upper lobe and medial right lower lobe. Lymphadenopathy to 1 cm right hilum and subcarinal. Atelectasis left lower lobe. Discontinued Prone therapy 11/02/16. continue t-piece as tolerated. GI: Ileus - resolved.- now with loose stools Morbid Obesity Elevated LFT's- now within normal. PEG tube placement 11/30. US liver: No ductal dilatation tube feeds with vital high-protein currently at 50 cc/hr. Metoclopramide 10 mg every 6 hours, change to PO.- DC with the diarrhea 01/04 No Cholecystostomy tube recommended by Dr. Nguyen. Recommended advance diet as tolerated Famotidine 20 milligrams mg twice a day for GI prophylaxis /renal/FEN: Hyponatremia Hypopotassemia Diarrhea: C diff is negative. on lactinex and imodium. Monitor lytes Monitor renal function, I/O's, electrolytes replacement per protocol. Currently on sodium chloride 1 g every 12 hours Endo: Hyperglycemia SSI Q6h with Regular Insulin mild protocol for glycemic control. Previously insulin detemir 62 units twice a day. now on 8 units twice a day. Monitor BS and adjust levemir dose as needed . Heme: Normocytic anemia - stable. Leukocytosis L popliteal fossa hematoma - stable. Monitor closely for compartment syndrome ID: Severe sepsis - resolved. HCAP -resolved Leukocytosis Per telephone order dispatcher, pt has a sacrococcygeal Wound measuring 4cm x 3cm x ~3.2cm. ~ 50% yellow loosely adherent slough is noted at the base, with ~50% pink tissue. I did evaluate the wound. Wound is foul smelling on exam today w some yellow/ purulent discharge. Wound cultures have been obtain. ID ff Wound care physician also has been consulted. piperacillin/tazobactam, d/c'd 12/20. Discontinued vancomycin and micafungin by ID, WBC trending down ID Amanda Haas, F/U ríos culture, C Diff- NGTD. ABX completed 12/11. (piperacillin/tazobactam and sulfamethoxazole/ trimethoprim 800/160 2 tablets 3 times a day) Sputum: Klebsiella, Stenotrophomonas and Pseudomonas 11/27 Sputum cx 11/23: Kleb, Pseudomonas, s/p (ceftriaxone and fluconazole course). ID is following-Dr. Patel s/p ceftriaxone 11/02-11/09 for Enterobacter pneumonia. Repeat sputum Klebsiella sensitive to Rocephin started on Avicaz 01/03 Flagyl DC- 01/04 C-diff PCR is negative GI, famotidine. DVT - on lovenox. s/pIV heparin gtt/Coumadin DCd 12/10 due to left popliteal hematoma. Given bleeding complications with low CHADS-VaSC risk, risk/benefit in favor of holding full anticoagulation. 11/09 Doppler US LE negative for DVT Palliative care is following Patient with slow progression. On T-piece. Pulmonary following. Discharge Planning continue care in ICU Aranza Loza MD Jan 06, 2017 14:38
--- NOTE | 2017-01-06 15:49 | HHI.PR ---
Subjective Remarks Alert and doing better. CXR improved.No Fever. On a T Bar FIO2 30 % .No trach secretions. Using PM valve. Objective Vital Signs Date Time Temp Pulse Resp B/P (MAP) Pulse Ox O2 Delivery O2 Flow Rate FiO2 01/06/17 12:00 94 01/06/17 12:00 98.6 01/06/17 12:00 94 25 127/70 (89) 95 01/06/17 09:00 77 17 124/69 (87) 96 01/06/17 08:03 98 Venturi Mask 40 01/06/17 08:00 Venturi Mask 40 01/06/17 08:00 62 01/06/17 08:00 98.9 01/06/17 08:00 77 27 117/74 (88) 91 01/06/17 06:00 62 01/06/17 04:00 99.2 62 13 99/62 (74) 96 01/06/17 04:00 62 01/06/17 03:45 100 40 01/06/17 02:00 69 01/06/17 00:30 99 40 01/06/17 00:00 69 01/06/17 00:00 98.5 65 16 114/64 (81) 98 01/05/17 23:30 16 01/05/17 22:00 66 01/05/17 22:00 98.8 65 16 114/64 (81) 98 01/05/17 20:10 96 Trach Collar 40 01/05/17 20:00 86 01/05/17 20:00 98.5 86 18 109/54 (72) 96 01/05/17 16:31 61 01/05/17 16:31 61 20 111/64 (80) 99 01/05/17 16:01 62 22 106/57 (73) 85 01/05/17 16:01 62 01/05/17 16:00 62 01/05/17 16:00 62 22 82 01/05/17 16:00 98.9 I/O 01/05/17 01/05/17 01/05/17 01/06/17 01/06/17 01/06/17 07:00 15:00 23:00 07:00 15:00 23:00 Intake Total 571 ml 50 ml 1134 ml 888 ml 50 ml Output Total 1175 ml 2350 ml 1100 ml Balance -604 ml 50 ml -1216 ml -212 ml 50 ml Intake Oral 360 ml IV Total 50 ml 200 ml 50 ml Tube Feeding 571 ml 534 ml 688 ml Other 240 ml Output Urine Total 1175 ml 2150 ml 1100 ml Stool Total 0 ml 200 ml Result Diagram: 01/04/174 01/05/17 0352 Objective Remarks GENERAL: Obese middle-aged white male who is a awake. Has 1 +edema of the extremities. HEENT: Head normocephalic. Pupils are reactive. NECK: Supple. No bruits or thyroid enlargement. No venous distension. CHEST: Equal movements with diminished breath sounds at the bases, with wheezes. HEART: The heart sounds are regular. S1 and S2 with no definite murmur. ABDOMEN: Obese, protuberant. No masses, no organomegaly. EXTREMITIES: Mild edema. Decreased peripheral pulses. Reflexes 1+. The patient has some weakness of his lower extremities.and left arm. 1 + edema of all limbs. SKIN: Dry and scaly. Assessment and Plan Assessment and Plan IMPRESSION 1. Resolving respiratory failure. 2. Basilar pneumonia and hypoxemia. 3. COPD and chronic bronchitis. 4. Possible obstructive sleep apnea syndrome. 5. Hypertension. 6. Atrial fibrillation and CHF. 7. Severe sepsis, resolved. Plan : 1. Cont on BIPAP 12/5 CM FIO2 35 % at HS 2. Continue Diuretics. 3. D/C Prednisone 4. T bar 40 % daytime 7 am to 7 pm. 5. PT Evaluation.Up with help 6. Duoneb nebs qid. 7. Tube feeds at 55 CC. 8. Consult wound care 9. Continue S/Q Lovenox 40 mg daily. 10.BMP saturday 11. PM valve as tolerated. Laura Haile MD Jan 06, 2017 15:49
[2017-01-06] MEDS: ESCITALOPRAM OXALATE 10 MG TAB PO SCH (20:26)
[2017-01-07] VITALS (16 sets, daily range): BP systolic 93–127; BP diastolic 52–74; PULSE 63–86; RESP 17–20; TEMP 98.1–98.8; O2SAT 95–100
[2017-01-07] MEDS: INSULIN NovoLIN REGULAR SUPPLEMENTAL SCALE SQ SCH ×4 (02:00→20:00)
[2017-01-07] MEDS: cefTAZidime/AVIBACTAM INJ 2.5 GM in SODIUM CHLORIDE 0.9% INJ 50 ML IV SCH ×3 (03:32→17:25)
[2017-01-07] MEDS: CHLORHEXIDINE GLUCONATE 2 % 1 PACK (2 CLOTHS) TOP SCH ×2 (04:00→23:43)
[2017-01-07 05:48] LABS: HEMATOCRIT 32.9 % (39.0-51.0); MEAN CELL VOLUME 92.6 FL (80.0-100.0); MEAN CORPUSCULAR HEMOGLOBIN 30.7 PG (27.0-34.0); MEAN CORPUSCULAR HGB CONC 33.1 % (32.0-36.0); PLATELET COUNT 525 TH/MM3 (150-450); RED BLOOD COUNT 3.55 MIL/MM3 (4.50-5.90); RED CELL DISTRIBUTION WIDTH 15.5 % (11.6-17.2); REVIEW FLAG FINAL
[2017-01-07 05:57] LABS: APTT (PATIENT) 26.2 SEC (24.3-30.1)
[2017-01-07] MEDS: METOPROLOL TARTRATE 50 MG TAB PO SCH ×4 (06:00→23:19)
[2017-01-07] MEDS: DILTIAZEM HCL 90 MG TAB PO SCH ×4 (06:23→23:19)
[2017-01-07 06:25] LABS: BICARBONATE 33.2 MEQ/L (21.0-32.0); POTASSIUM 4.1 MEQ/L (3.5-5.1)
[2017-01-07] MEDS: RESP: BUDESONIDE 0.5 MG/2 ML NEB NEB SCH ×2 (07:36→19:30)
[2017-01-07] MEDS: INSULIN DETEMIR 100 UNITS/ML VIAL SQ SCH ×2 (09:00→21:00)
[2017-01-07] MEDS: DIGOXIN 0.125 MG TAB PO SCH (09:53)
[2017-01-07] MEDS: predniSONE 5 MG TAB PO SCH (09:53)
[2017-01-07] MEDS: LISINOPRIL 10 MG TAB PO SCH (09:53)
[2017-01-07] MEDS: FAMOTIDINE 20 MG TAB NG SCH ×2 (09:53→21:07)
[2017-01-07] MEDS: SODIUM CHLORIDE 1 GRAM TAB PO SCH ×2 (09:53→21:10)
[2017-01-07] MEDS: ENOXAPARIN SODIUM 40 MG/0.4 ML SYRINGE SQ SCH (09:54)
[2017-01-07] MEDS: POTASSIUM CHLORIDE 25 MEQ EFFERVESCENT TAB G-TUBE SCH (09:54)
[2017-01-07] MEDS: AMIODARONE 200 MG TAB OG-TUBE SCH (09:54)
[2017-01-07] MEDS: FUROSEMIDE 20 MG TAB PO SCH (09:54)
[2017-01-07] MEDS: SODIUM CHLORIDE 0.9% FLUSH 10 ML FLUSH IVF SCH (09:54)
[2017-01-07] MEDS: CHLORHEXIDINE 0.12% (ORAL KIT) 15 ML CUP MT SCH ×2 (09:55→20:00)
[2017-01-07] MEDS: LACTOBACILLUS ACIDOPHILUS TAB PO SCH ×2 (09:55→21:07)
[2017-01-07] MEDS: ARTIFICIAL TEARS OPTH OINT 3.5 APPLIC/3.5 GM TUBO EACH EYE SCH ×2 (09:57→21:06)
[2017-01-07] MEDS: SODIUM HYPOCHLORITE 0.125% 500 ML BTL TOPICAL SCH ×2 (09:57→21:08)
--- NOTE | 2017-01-07 13:32 | HHI.PR ---
Addendum to Inpatient Note Additional Information Pt 's sputum results noted MDRO PSAE - will add sensitivities to roxanebaxa, dusty, Mariana Copeland MD Jan 07, 2017 13:32
--- NOTE | 2017-01-07 14:10 | HHI.PR ---
Subjective Remarks wake and alert no complains on t piece- 35 % Objective Vitals Vital Signs Date Time Temp Pulse Resp B/P (MAP) Pulse Ox O2 Delivery O2 Flow Rate FiO2 01/07/17 08:50 35 01/07/17 07:41 97 Trach Collar 40 01/07/17 06:00 79 01/07/17 04:00 98.8 77 18 127/59 (81) 97 01/07/17 04:00 77 01/07/17 03:20 100 40 01/07/17 02:00 73 01/07/17 01:39 97 40 01/07/17 00:00 72 01/07/17 00:00 98.6 72 20 93/52 (66) 97 01/06/17 22:30 100 40 01/06/17 22:00 74 01/06/17 20:00 70 01/06/17 20:00 99 Trach Collar 6.00 40 01/06/17 20:00 98.3 70 20 94/56 (69) 100 01/06/17 16:00 70 01/06/17 16:00 98.6 70 31 105/61 (76) 98 I/O 01/06/17 01/06/17 01/06/17 01/07/17 01/07/17 01/07/17 07:00 15:00 23:00 07:00 15:00 23:00 Intake Total 888 ml 50 ml 1544 ml 628 ml Output Total 1100 ml 950 ml 900 ml Balance -212 ml 50 ml 594 ml -272 ml Intake Oral 720 ml 0 ml IV Total 200 ml 50 ml 50 ml 50 ml Tube Feeding 688 ml 534 ml 578 ml Other 240 ml Output Urine Total 1100 ml 850 ml 800 ml Stool Total 100 ml 100 ml Result Diagram: 01/07/1739901/07/170 Objective Remarks awake and alert ff all commands anicteric t piece in place lungs-- no rales regular rhythm abdomen soft, nontender extremities tr edema, good peripheral pulses sacral decubitus- stage 4- deep, edges, clean , no foul, no bleeding 01/06 exam bilateral infragluteal area/posterior aspect of the thigh - linear open wounds edges anirudh, left greater than right 01/07 exam moves all extremities spontaneously condom catheter A/P Assessment and Plan Assessment and Plan Neuro/Psych: Metabolic encephalopathy - resolved. CIM/SHEFALI S/p Neuromuscular paralysis for Prone therapy Syncope Depression MRI C-spine showing increased signals C3-C5 region. Dr Riggins reviewed MRI spine- not sure about increased signal in cord, could be cervical hyperextension injury, from intubation according to him. Unable to do flexion- extension films of the C-spine (trached patient). 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 Haloperidol 5mg iv q4h prn for agitation. Escitalopram 10 mg qhs or depression from 12/07/16. MRI brain 11/26: Small focal signal abnormality in the superior medial left frontal lobe. Could be sequela from prior insult such as a contusion or small infarct. No acute infarct MRI brain 12/[address] on admission revealed no acute intracranial findings, CT brain 11/05- no acute findings. opacification of sinuses. EEG 11/20: No seizure activity. EEG 11/09: severe encephalopathy PT/OT for range of motion, up to stretcher chair as tolerated CV: Hypotension-resolved Atrial fib/ flutter with RVR - rate controlled.- telemetry in SR Hypertension on amiodarone to 200mg po daily for maintenance dose. digoxin 0.125 mg po daily. recheck level 01/04 and [id number] as long as stable. PO Diltiazem 90 mg PO q6hr, metoprolol 50mg Q6 Coumadin and heparin 12/10 held due to left popliteal fossa hematoma. now on lovenox for prophylactic dose since 12/24. given high risk for bleeding complication and low CHADS-VaSC risk, risk/benefit at this time in favor of holding full anticoagulation. Echo 10/25 EF 60-65%. Repeat echo with bubble study: 11/22: No shunt seen Resp: Acute, now chronic hypoxemic Respiratory failure s/p trach 11/27 Spontaneous Right sided PTX secondary to barotrauma - resolved. COPD exacerbation - resolved. Pneumonia most likely community-acquired - resolved. Obesity hypoventilation syndrome Tobacco use disorder albuterol aerosols every 2 hours PRN. Ventilator bundle on T piece 28%- on fenestrated- Passimuir Budesonide 0.5 mg/2 mL aerosols twice a day. on Prednisone 10 mg daily continue to wean s/p trach 11/[address] Martin #8 [place]. Pulmonary following. appreciate assistance. s/p 20Fr CT placed for right PTX 11/23, monitor CT drainage. d/c chest tube . CT pulmonary angio revealed no pulmonary embolus. Masslike consolidation in the posterior right upper lobe and medial right lower lobe. Lymphadenopathy to 1 cm right hilum and subcarinal. Atelectasis left lower lobe. Discontinued Prone therapy 11/02/16. continue t-piece as tolerated. GI: Ileus - resolved.- now with loose stools Morbid Obesity Elevated LFT's- now within normal. PEG tube placement 11/30. US liver: No ductal dilatation tube feeds with vital high-protein currently at 50 cc/hr. Metoclopramide 10 mg every 6 hours, change to PO.- DC with the diarrhea 01/04 No Cholecystostomy tube recommended by Dr. Nguyen. Recommended advance diet as tolerated Famotidine 20 milligrams mg twice a day for GI prophylaxis /renal/FEN: Hyponatremia Hypopotassemia Diarrhea: C diff is negative. on lactinex and imodium. Monitor lytes Monitor renal function, I/O's, electrolytes replacement per protocol. Currently on sodium chloride 1 g every 12 hours Endo: Hyperglycemia SSI Q6h with Regular Insulin mild protocol for glycemic control. Previously insulin detemir 62 units twice a day. now on 8 units twice a day. Monitor BS and adjust levemir dose as needed . Heme: Normocytic anemia - stable. Leukocytosis L popliteal fossa hematoma - stable. Monitor closely for compartment syndrome ID: Severe sepsis - resolved. HCAP -resolved Leukocytosis Per calker, pt has a sacrococcygeal Wound measuring 4cm x 3cm x ~3.2cm. ~ 50% yellow loosely adherent slough is noted at the base, with ~50% pink tissue. I did evaluate the wound. Wound is foul smelling on exam today w some yellow/ purulent discharge. Wound cultures have been obtain. ID ff Wound care physician also has been consulted. piperacillin/tazobactam, d/c'd 12/20. Discontinued vancomycin and micafungin by ID, WBC trending down ID Amanda Haas, F/U ríos culture, C Diff- NGTD. ABX completed 12/11. (piperacillin/tazobactam and sulfamethoxazole/ trimethoprim 800/160 2 tablets 3 times a day) Sputum: Klebsiella, Stenotrophomonas and Pseudomonas 11/27 Sputum cx 11/23: Kleb, Pseudomonas, s/p (ceftriaxone and fluconazole course). ID is following-Dr. Patel s/p ceftriaxone 11/02-11/09 for Enterobacter pneumonia. Repeat sputum Klebsiella sensitive to Rocephin started on Avicaz 01/03 Flagyl DC- 01/04 C-diff PCR is negative GI, famotidine. DVT - on lovenox. s/pIV heparin gtt/Coumadin DCd 12/10 due to left popliteal hematoma. Given bleeding complications with low CHADS-VaSC risk, risk/benefit in favor of holding full anticoagulation. 11/09 Doppler US LE negative for DVT Palliative care is following Patient with slow progression. On T-piece. Pulmonary following. Discharge Planning continue care in ICU Aranza Loza MD Jan 07, 2017 14:10
--- NOTE | 2017-01-07 19:27 | HHI.PR ---
Subjective Remarks Alert and feels better. CXR improved.No Fever. On a T Bar FIO2 35 % .No trach secretions.Has some edema still Using PM valve. Objective Vital Signs Date Time Temp Pulse Resp B/P (MAP) Pulse Ox O2 Delivery O2 Flow Rate FiO2 01/07/17 16:00 67 01/07/17 14:00 63 01/07/17 12:00 98.8 86 18 117/57 (77) 96 01/07/17 12:00 86 01/07/17 10:00 79 01/07/17 08:50 35 01/07/17 08:00 76 01/07/17 08:00 98.3 76 17 123/74 (90) 97 01/07/17 07:41 97 Trach Collar 40 01/07/17 06:00 79 01/07/17 04:00 98.8 77 18 127/59 (81) 97 01/07/17 04:00 77 01/07/17 03:20 100 40 01/07/17 02:00 73 01/07/17 01:39 97 40 01/07/17 00:00 72 01/07/17 00:00 98.6 72 20 93/52 (66) 97 01/06/17 22:30 100 40 01/06/17 22:00 74 01/06/17 20:00 70 01/06/17 20:00 99 Trach Collar 6.00 40 01/06/17 20:00 98.3 70 20 94/56 (69) 100 I/O 01/06/17 01/06/17 01/06/17 01/07/17 01/07/17 01/07/17 07:00 15:00 23:00 07:00 15:00 23:00 Intake Total 888 ml 50 ml 1544 ml 628 ml Output Total 1100 ml 950 ml 900 ml 1450 ml Balance -212 ml 50 ml 594 ml -272 ml -1450 ml Intake Oral 720 ml 0 ml IV Total 200 ml 50 ml 50 ml 50 ml Tube Feeding 688 ml 534 ml 578 ml Other 240 ml Output Urine Total 1100 ml 850 ml 800 ml 1450 ml Stool Total 100 ml 100 ml Result Diagram: 01/07/1739901/07/17399 Objective Remarks GENERAL: Obese middle-aged white male who is a awake. Has 1 +edema of the extremities. HEENT: Head normocephalic. Pupils are reactive. NECK: Supple. No bruits or thyroid enlargement. No venous distension. CHEST: Equal movements with diminished breath sounds at the bases, with Occ Crackles and wheezes. HEART: The heart sounds are regular. S1 and S2 with no definite murmur. ABDOMEN: Obese, protuberant. No masses, no organomegaly. EXTREMITIES: Mild edema. Decreased peripheral pulses. Reflexes 1+. The patient has some weakness of his lower extremities.and left arm. 1 + edema of all limbs. SKIN: Dry and scaly. Assessment and Plan Assessment and Plan IMPRESSION 1. Resolving respiratory failure. 2. Basilar pneumonia and hypoxemia. 3. COPD and chronic bronchitis. 4. Possible obstructive sleep apnea syndrome. 5. Hypertension. 6. Atrial fibrillation and CHF. 7. Severe sepsis, resolved. Plan : 1. Cont on BIPAP 12/5 CM FIO2 30 % at HS 2. Continue Diuretics. 3. CXR in am 4. T bar 35 % daytime 7 am to 7 pm. 5. PT Evaluation.Up with help 6. Duoneb nebs qid. 7. Tube feeds at 55 CC. 8. PM valve as tolerated. [facility]. [facility] Laura Haile MD Jan 07, 2017 19:27
[2017-01-07] MEDS: ESCITALOPRAM OXALATE 10 MG TAB PO SCH (21:07)
[2017-01-08] VITALS (9 sets, daily range): BP systolic 94–117; BP diastolic 50–67; PULSE 59–73; RESP 16–26; TEMP 98.3–99.2; O2SAT 92–100
[2017-01-08] MEDS: INSULIN NovoLIN REGULAR SUPPLEMENTAL SCALE SQ SCH ×4 (02:00→20:00)
[2017-01-08] MEDS: cefTAZidime/AVIBACTAM INJ 2.5 GM in SODIUM CHLORIDE 0.9% INJ 50 ML IV SCH ×3 (02:43→17:34)
[2017-01-08] MEDS: METOPROLOL TARTRATE 50 MG TAB PO SCH ×2 (05:32→12:00)
[2017-01-08] MEDS: DILTIAZEM HCL 90 MG TAB PO SCH ×2 (05:32→13:24)
[2017-01-08 07:12] LABS: APTT (PATIENT) 26.2 SEC (24.3-30.1)
[2017-01-08] MEDS: RESP: BUDESONIDE 0.5 MG/2 ML NEB NEB SCH ×2 (07:22→19:38)
[2017-01-08] MEDS: ARTIFICIAL TEARS OPTH OINT 3.5 APPLIC/3.5 GM TUBO EACH EYE SCH ×2 (09:00→20:17)
[2017-01-08] MEDS: INSULIN DETEMIR 100 UNITS/ML VIAL SQ SCH ×2 (09:00→20:17)
--- NOTE | 2017-01-08 09:16 | HHI.PR ---
Subjective Remarks Alert and improved.. CXR improved. No Fever. On a T Bar FIO2 35 % .Mild trach secretions.Has some edema still Using PM valve. Objective Vital Signs Date Time Temp Pulse Resp B/P (MAP) Pulse Ox O2 Delivery O2 Flow Rate FiO2 01/08/17 07:24 97 Trach Collar 40 01/08/17 04:00 65 01/08/17 04:00 99.2 65 26 117/67 (84) 100 01/08/17 00:00 98.3 63 16 95/54 (68) 97 01/08/17 00:00 63 01/07/17 22:28 97 40 01/07/17 20:00 72 01/07/17 20:00 98.1 72 18 120/65 (83) 97 01/07/17 19:31 95 Trach Collar 40 01/07/17 19:00 93 T-Piece 01/07/17 18:00 67 01/07/17 16:00 67 01/07/17 16:00 98.6 67 18 106/52 (70) 96 01/07/17 14:00 63 01/07/17 12:00 98.8 86 18 117/57 (77) 96 01/07/17 12:00 86 01/07/17 10:00 79 I/O 01/07/17 01/07/17 01/07/17 01/08/17 01/08/17 01/08/17 07:00 15:00 23:00 07:00 15:00 23:00 Intake Total 628 ml 1409 ml 633 ml Output Total 900 ml 1450 ml 1150 ml Balance -272 ml -41 ml -517 ml Intake Oral 0 ml 800 ml IV Total 50 ml 50 ml 50 ml Tube Feeding 578 ml 559 ml 463 ml Other 120 ml Output Urine Total 800 ml 1450 ml 1000 ml Stool Total 100 ml 150 ml Result Diagram: 01/07/1739901/07/17 040 Objective Remarks GENERAL: Obese middle-aged white male who is a awake. Has 1 + edema of the extremities. HEENT: Head normocephalic. Pupils are reactive. NECK: Supple. No bruits or thyroid enlargement. No venous distension. CHEST: Equal movements with diminished breath sounds at the bases, with Occ Crackles . HEART: The heart sounds are regular. S1 and S2 with no definite murmur. ABDOMEN: Obese, protuberant. No masses, no organomegaly. EXTREMITIES: Mild edema. Decreased peripheral pulses. Reflexes 1+. The patient has some weakness of his lower extremities.and left arm. 1 + edema of all limbs. SKIN: Dry and scaly. Assessment and Plan Assessment and Plan IMPRESSION 1. Resolving respiratory failure. 2. Basilar pneumonia and hypoxemia. 3. COPD and chronic bronchitis. 4. Possible obstructive sleep apnea syndrome. 5. Hypertension. 6. Atrial fibrillation and CHF. 7. Severe sepsis, resolved. Plan : 1. Cont on BIPAP 12/5 CM FIO2 30 % at HS 2. Continue Diuretics. 3. BMP in am 4. T bar 35 % daytime 7 am to 7 pm. 5. PT Evaluation.Up with help 6. Duoneb nebs qid. 7. Tube feeds at 55 CC. 8. PM valve as tolerated. 9. D/C prednisone in 3 days Laura Haile MD Jan 08, 2017 09:16
[2017-01-08] MEDS: DIGOXIN 0.125 MG TAB PO SCH (09:34)
[2017-01-08] MEDS: ENOXAPARIN SODIUM 40 MG/0.4 ML SYRINGE SQ SCH (09:34)
[2017-01-08] MEDS: LISINOPRIL 10 MG TAB PO SCH (09:34)
[2017-01-08] MEDS: predniSONE 5 MG TAB PO SCH (09:34)
[2017-01-08] MEDS: AMIODARONE 200 MG TAB OG-TUBE SCH (09:35)
[2017-01-08] MEDS: FUROSEMIDE 20 MG TAB PO SCH (09:35)
[2017-01-08] MEDS: FAMOTIDINE 20 MG TAB NG SCH ×2 (09:35→20:17)
[2017-01-08] MEDS: SODIUM CHLORIDE 1 GRAM TAB PO SCH ×2 (09:35→20:17)
[2017-01-08] MEDS: LACTOBACILLUS ACIDOPHILUS TAB PO SCH ×2 (09:36→20:17)
[2017-01-08] MEDS: POTASSIUM CHLORIDE 25 MEQ EFFERVESCENT TAB G-TUBE SCH (09:36)
[2017-01-08] MEDS: SODIUM HYPOCHLORITE 0.125% 500 ML BTL TOPICAL SCH ×2 (09:37→20:17)
[2017-01-08] MEDS: SODIUM CHLORIDE 0.9% FLUSH 10 ML FLUSH IVF SCH (09:37)
[2017-01-08] MEDS: CHLORHEXIDINE 0.12% (ORAL KIT) 15 ML CUP MT SCH ×2 (09:37→20:00)
--- NOTE | 2017-01-08 13:53 | HHI.PR ---
Subjective Remarks awake and alert, appear comfortable, interactive denies any pain Objective Vitals Vital Signs Date Time Temp Pulse Resp B/P (MAP) Pulse Ox O2 Delivery O2 Flow Rate FiO2 01/08/17 08:00 98.6 59 23 111/63 (79) 95 01/08/17 07:24 97 Trach Collar 40 01/08/17 04:00 65 01/08/17 04:00 99.2 65 26 117/67 (84) 100 01/08/17 00:00 98.3 63 16 95/54 (68) 97 01/08/17 00:00 63 01/07/17 22:28 97 40 01/07/17 20:00 72 01/07/17 20:00 98.1 72 18 120/65 (83) 97 01/07/17 19:31 95 Trach Collar 40 01/07/17 19:00 93 T-Piece 01/07/17 18:00 67 01/07/17 16:00 67 01/07/17 16:00 98.6 67 18 106/52 (70) 96 01/07/17 14:00 63 I/O 01/07/17 01/07/17 01/07/17 01/08/17 01/08/17 01/08/17 07:00 15:00 23:00 07:00 15:00 23:00 Intake Total 628 ml 1409 ml 633 ml Output Total 900 ml 1450 ml 1150 ml Balance -272 ml -41 ml -517 ml Intake Oral 0 ml 800 ml IV Total 50 ml 50 ml 50 ml Tube Feeding 578 ml 559 ml 463 ml Other 120 ml Output Urine Total 800 ml 1450 ml 1000 ml Stool Total 100 ml 150 ml Result Diagram: 01/07/17 0400 01/07/17 0400 Imaging Last Impressions Chest X-Ray 01/05/17 0600 Signed Impressions: Service Date/Time: Thursday, January 05, 2017 04:00 - CONCLUSION: 1. Cardiomegaly and findings of vascular congestion without overt failure. The findings are improved when compared with the prior exam. Diego Callahan MD Lower Extremity Ultrasound 01/01/17 0000 Signed Impressions: Service Date/Time: Sunday, January 01, 2017 13:40 - CONCLUSION: 1. No DVT is identified within either lower extremity. 2. Complex cystic appearing collection in the popliteal fossa and calf region on the left measuring up to 18.6 cm. 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 Jayson Levin MD Chest Ultrasound 12/27/16 0000 Signed Impressions: Service Date/Time: December 19:04 - CONCLUSION: Minimal right pleural effusion and the patient was not marked for thoracentesis. Jhonathan Dietz MD Abdomen X-Ray 12/19/16 0000 Signed Impressions: Service Date/Time: Monday, December 19, 2016 07:55 - CONCLUSION: Mildly dilated loops of small and large bowel characteristic of ileus. Fito Jsohua MD Abdomen/Pelvis CT 12/15/16 0000 Signed Impressions: Service Date/Time: Thursday, December 15, 2016 10:50 - CONCLUSION: 1. Distended bowel especially the small bowel and the cecum. This is nonspecific. A transition point is not seen. This could relate to ileus. Oral contrast does extend to the rectum. 2. Bibasilar areas of consolidation at the lung bases. There also is a possible small pneumothorax on the right. The patient does have a right chest tube in place. 3. G-tube. 4. Distended gallbladder. 5. Increased soft tissue density in the left lateral abdominal wall which could be from prior trauma or edema. Jayson Soto MD Cervical Spine MRI 12/03/16 0000 Signed Impressions: Service Date/Time: Saturday, December 03, 2016 13:13 - CONCLUSION: Severely limited exam. I believe there is increased signal in the cervical cord mid C3 to mid C5. Ward Kim MD FACR Brain MRI 12/03/16 0000 Signed Impressions: Service Date/Time: Saturday, December 03, 2016 13:13 - CONCLUSION: 1. There is a small area of abnormal T2 signal in the left frontal cortex this is unchanged from the previous examination dated 11/26/16. This is nonspecific in appearance on the MRI. Differential considerations would be a small area of gliosis versus an old area of contusion. Follow up examination in 6 months to document stability would be warranted. 2. No findings to indicate acute cortical infarction are identified. Román Kim MD Gastrostomy Tube Placement 11/30/16 0000 Signed Impressions: Service Date/Time: Wednesday, November 30, 2016 12:22 - CONCLUSION: Uncomplicated gastrostomy tube placement as above. Jorge Jolly MD Liver Ultrasound 11/09/16 0000 Signed Impressions: Service Date/Time: Wednesday, November 09, 2016 13:58 - CONCLUSION: Sono dense liver without duct dilatation. 4 mm common duct. Ward Kim MD FACR Chest CT 11/06/16 0000 Signed Impressions: Service Date/Time: Sunday, November 06, 2016 11:24 - CONCLUSION: 1. Dense bilateral posterior lower lobe airspace consolidation consistent with aspiration versus less likely pneumonia. 2. Linear consolidation in the right middle lobe consistent with atelectasis versus aspiration. 3. Trace left and small right pleural effusions. 4. Support lines and tubes in good position. 5. Prominent coronary artery calcifications. Nico Vaughan MD Head CT 11/05/16 0000 Signed Impressions: Service Date/Time: Saturday, November 05, 2016 21:43 - CONCLUSION: 1. No acute intracranial abnormalities. Pansinus fluid opacification. Cristofer De Santiago MD Carotid Artery Ultrasound 10/25/16 0000 Signed Impressions: Service Date/Time: September 08:27 - CONCLUSION: Mild to moderate plaque in both carotid systems with less than 40%% diameter stenosis by velocity criteria. Jhonathan Dietz MD CT Angiography 10/25/16 0000 Signed Impressions: Service Date/Time: September 06:12 - CONCLUSION: 1. Negative for pulmonary embolism. 2. There is a fairly large area of masslike consolidation in the medial right lung involving posterior segment right upper lobe and medial aspect of right lower lobe. There is associated right hilar and mediastinal adenopathy measuring up to 2.1 cm. Differential diagnosis includes pneumonia or underlying lung neoplasm. Close followup imaging recommended after treatment for pneumonia, to assess for underlying mass. Cristofer De Santiago MD Objective Remarks awake and alert ff all commands anicteric t piece in place lungs-- no rales regular rhythm abdomen soft, nontender extremities tr edema, good peripheral pulses sacral decubitus- stage 4- deep, edges, clean , no foul, no bleeding 01/06 exam bilateral infragluteal area/posterior aspect of the thigh - linear open wounds edges clean, left greater than right 01/07 exam moves all extremities spontaneously condom catheter A/P Assessment and Plan Assessment and Plan Neuro/Psych: Metabolic encephalopathy - resolved. CIM/SHEFALI S/p Neuromuscular paralysis for Prone therapy Syncope Depression MRI C-spine showing increased signals C3-C5 region. Dr Riggins reviewed MRI spine- not sure about increased signal in cord, could be cervical hyperextension injury, from intubation according to him. Unable to do flexion- extension films of the C-spine (trached patient). 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 Haloperidol 5mg iv q4h prn for agitation. Escitalopram 10 mg qhs or depression from 12/07/16. MRI brain 11/26: Small focal signal abnormality in the superior medial left frontal lobe. Could be sequela from prior insult such as a contusion or small infarct. No acute infarct MRI brain 12/[address] on admission revealed no acute intracranial findings, CT brain 11/05- no acute findings. opacification of sinuses. EEG 11/20: No seizure activity. EEG 11/09: severe encephalopathy PT/OT for range of motion, up to stretcher chair as tolerated CV: Hypotension-resolved Atrial fib/ flutter with RVR - rate controlled.- telemetry in SR Hypertension on amiodarone to 200mg po daily for maintenance dose. digoxin 0.125 mg po daily. recheck level 01/04 and [id number] as long as stable. PO Diltiazem 90 mg PO q6hr- taper down to 60 mg po 6 on metoprolol 50mg Q6 - will decrease dose 25 mg po q8 with borderline SBPs Coumadin and heparin 12/10 held due to left popliteal fossa hematoma. now on lovenox for prophylactic dose since 12/24. given high risk for bleeding complication and low CHADS-VaSC risk, risk/benefit at this time in favor of holding full anticoagulation. Echo 10/25 EF 60-65%. Repeat echo with bubble study: 11/22: No shunt seen Resp: Acute, now chronic hypoxemic Respiratory failure s/p trach 11/27 Spontaneous Right sided PTX secondary to barotrauma - resolved. COPD exacerbation - resolved. Pneumonia most likely community-acquired - resolved. Obesity hypoventilation syndrome Tobacco use disorder albuterol aerosols every 2 hours PRN. Ventilator bundle on T piece 28%- on fenestrated- Passimuir Budesonide 0.5 mg/2 mL aerosols twice a day. on Prednisone 10 mg daily continue to wean s/p [facility]ach [facility] [facility] following. appreciate assistance. s/p 20Fr CT placed for right PTX 11/23, monitor CT drainage. d/c chest tube . CT pulmonary angio revealed no pulmonary embolus. Masslike consolidation in the posterior right upper lobe and medial right lower lobe. Lymphadenopathy to 1 cm right hilum and subcarinal. Atelectasis left lower lobe. Discontinued Prone therapy 11/02/16. continue t-piece as tolerated. GI: Ileus - resolved.- now with loose stools Morbid Obesity Elevated LFT's- now within normal. PEG tube placement 11/30. US liver: No ductal dilatation tube feeds with vital high-protein currently at 50 cc/hr. Metoclopramide 10 mg every 6 hours, change to PO.- DC with the diarrhea 01/04 No Cholecystostomy tube recommended by Dr. Nguyen. Recommended advance diet as tolerated Famotidine 20 milligrams mg twice a day for GI prophylaxis /renal/FEN: Hyponatremia Hypopotassemia Diarrhea: C diff is negative. on lactinex and imodium. Monitor lytes Monitor renal function, I/O's, electrolytes replacement per protocol. Currently on sodium chloride 1 g every 12 hours Endo: Hyperglycemia SSI Q6h with Regular Insulin mild protocol for glycemic control. Previously insulin detemir 62 units twice a day. now on 8 units twice a day. Monitor BS and adjust levemir dose as needed . Heme: Normocytic anemia - stable. Leukocytosis L popliteal fossa hematoma - stable. Monitor closely for compartment syndrome ID: Severe sepsis - resolved. HCAP -resolved Leukocytosis Per rn wound care, pt has a sacrococcygeal Wound measuring 4cm x 3cm x ~3.2cm. ~ 50% yellow loosely adherent slough is noted at the base, with ~50% pink tissue. I did evaluate the wound. Wound is foul smelling on exam today w some yellow/ purulent discharge. Wound cultures have been obtain. ID ff Wound care physician also has been consulted. piperacillin/tazobactam, d/c'd 12/20. Discontinued vancomycin and micafungin by ID, WBC trending down ID Amanda Haas, F/U ríos culture, C Diff- NGTD. ABX completed 12/11. (piperacillin/tazobactam and sulfamethoxazole/ trimethoprim 800/160 2 tablets 3 times a day) Sputum: Klebsiella, Stenotrophomonas and Pseudomonas 11/27 Sputum cx 11/23: Kleb, Pseudomonas, s/p (ceftriaxone and fluconazole course). ID is following-Dr. Patel s/p ceftriaxone 11/02-11/09 for Enterobacter pneumonia. Repeat sputum Klebsiella sensitive to Rocephin started on Avicaz 01/03 Flagyl DC- 01/04 C-diff PCR is negative GI, famotidine. DVT - on lovenox. s/pIV heparin gtt/Coumadin DCd 12/10 due to left popliteal hematoma. Given bleeding complications with low CHADS-VaSC risk, risk/benefit in favor of holding full anticoagulation. 11/09 Doppler US LE negative for DVT Palliative care is following Patient with slow progression. On T-piece. Pulmonary following. Discharge Planning continue care in ICU Aranza Loza MD Jan 08, 2017 13:53
[2017-01-08] MEDS: METOPROLOL TARTRATE 25 MG TAB PO SCH ×2 (14:00→20:17)
[2017-01-08] MEDS: DILTIAZEM HCL 60 MG TAB PO SCH (17:34)
--- NOTE | 2017-01-08 17:56 | HHI.IDPN ---
Subjective Subjective Remarks doing better no fever WBC up to 15K remains on Tpiece, grew MDRO PSAE along with other GNB (kleb) takes po Antibiotics avicaz Allergies: Coded Allergies: No Known Allergies (Unverified , 10/25/16) Objective . Vital Signs Date Time Temp Pulse Resp B/P (MAP) Pulse Ox O2 Delivery O2 Flow Rate FiO2 01/08/17 16:00 98.6 70 17 94/50 (65) 93 01/08/17 12:00 98.4 67 18 109/55 (73) 93 01/08/17 08:00 98.6 59 23 111/63 (79) 95 01/08/17 07:24 97 Trach Collar 40 01/08/17 07:00 87 T-Piece 40 01/08/17 04:00 65 01/08/17 04:00 99.2 65 26 117/67 (84) 100 01/08/17 00:00 98.3 63 16 95/54 (68) 97 01/08/17 00:00 63 01/07/17 22:28 97 40 01/07/17 20:00 72 01/07/17 20:00 98.1 72 18 120/65 (83) 97 01/07/17 19:31 95 Trach Collar 40 01/07/17 19:00 93 T-Piece 01/07/17 18:00 67 . Laboratory Tests Test 01/07/17 04:00 White Blood Count 14.0 TH/MM3 Red Blood Count 3.55 MIL/MM3 Hemoglobin 10.9 GM/DL Hematocrit 32.9 % Mean Corpuscular Volume 92.6 FL Mean Corpuscular Hemoglobin 30.7 PG Mean Corpuscular Hemoglobin Concent 33.1 % Red Cell Distribution Width 15.5 % Platelet Count 525 TH/MM3 Mean Platelet Volume 7.0 FL Laboratory Tests Test 01/07/17 04:00 Blood Urea Nitrogen 10 MG/DL Creatinine 0.19 MG/DL Random Glucose 103 MG/DL Calcium Level 8.8 MG/DL Sodium Level 134 MEQ/L Potassium Level 4.1 MEQ/L Chloride Level 94 MEQ/L Carbon Dioxide Level 33.2 MEQ/L Anion Gap 7 MEQ/L Estimat Glomerular Filtration Rate 525 ML/MIN Imaging Last Impressions Chest X-Ray 01/05/17 0600 Signed Impressions: Service Date/Time: SaturJanuary 05, 2017 04:00 - CONCLUSION: 1. Cardiomegaly and findings of vascular congestion without overt failure. The findings are improved when compared with the prior exam. Diego Callahan MD Lower Extremity Ultrasound 01/01/17 0000 Signed Impressions: Service Date/Time: Sunday, January 01, 2017 13:40 - CONCLUSION: 1. No DVT is identified within either lower extremity. 2. Complex cystic appearing collection in the popliteal fossa and calf region on the left measuring up to 18.6 cm. 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 Jayson Levin MD Chest Ultrasound 12/27/16 0000 Signed Impressions: Service Date/Time: December 19:04 - CONCLUSION: Minimal right pleural effusion and the patient was not marked for thoracentesis. Jhonathan Dietz MD Abdomen X-Ray 12/19/16 0000 Signed Impressions: Service Date/Time: Monday, December 19, 2016 07:55 - CONCLUSION: Mildly dilated loops of small and large bowel characteristic of ileus. Fito Joshua MD Abdomen/Pelvis CT 12/15/16 0000 Signed Impressions: Service Date/Time: Thursday, December 15, 2016 10:50 - CONCLUSION: 1. Distended bowel especially the small bowel and the cecum. This is nonspecific. A transition point is not seen. This could relate to ileus. Oral contrast does extend to the rectum. 2. Bibasilar areas of consolidation at the lung bases. There also is a possible small pneumothorax on the right. The patient does have a right chest tube in place. 3. G-tube. 4. Distended gallbladder. 5. Increased soft tissue density in the left lateral abdominal wall which could be from prior trauma or edema. Jayson Soto MD Cervical Spine MRI 12/03/16 0000 Signed Impressions: Service Date/Time: Saturday, December 03, 2016 13:13 - CONCLUSION: Severely limited exam. I believe there is increased signal in the cervical cord mid C3 to mid C5. Ward Kim MD FACR Brain MRI 12/03/16 0000 Signed Impressions: Service Date/Time: Saturday, December 03, 2016 13:13 - CONCLUSION: 1. There is a small area of abnormal T2 signal in the left frontal cortex this is unchanged from the previous examination dated 11/26/16. This is nonspecific in appearance on the MRI. Differential considerations would be a small area of gliosis versus an old area of contusion. Follow up examination in 6 months to document stability would be warranted. 2. No findings to indicate acute cortical infarction are identified. Román Kim MD Gastrostomy Tube Placement 11/30/16 0000 Signed Impressions: Service Date/Time: Wednesday, November 30, 2016 12:22 - CONCLUSION: Uncomplicated gastrostomy tube placement as above. Jorge Jolly MD Liver Ultrasound 11/09/16 0000 Signed Impressions: Service Date/Time: Wednesday, November 09, 2016 13:58 - CONCLUSION: Sono dense liver without duct dilatation. 4 mm common duct. Ward Kim MD FACR Chest CT 11/06/16 0000 Signed Impressions: Service Date/Time: Sunday, November 06, 2016 11:24 - CONCLUSION: 1. Dense bilateral posterior lower lobe airspace consolidation consistent with aspiration versus less likely pneumonia. 2. Linear consolidation in the right middle lobe consistent with atelectasis versus aspiration. 3. Trace left and small right pleural effusions. 4. Support lines and tubes in good position. 5. Prominent coronary artery calcifications. Nico Vaughan MD Head CT 11/05/16 0000 Signed Impressions: Service Date/Time: Saturday, November 05, 2016 21:43 - CONCLUSION: 1. No acute intracranial abnormalities. Pansinus fluid opacification. Cristofer De Santiago MD Carotid Artery Ultrasound 10/25/16 0000 Signed Impressions: Service Date/Time: September 08:27 - CONCLUSION: Mild to moderate plaque in both carotid systems with less than 40%% diameter stenosis by velocity criteria. Jhonathan Dietz MD CT Angiography 10/25/16 0000 Signed Impressions: Service Date/Time: September 06:12 - CONCLUSION: 1. Negative for pulmonary embolism. 2. There is a fairly large area of masslike consolidation in the medial right lung involving posterior segment right upper lobe and medial aspect of right lower lobe. There is associated right hilar and mediastinal adenopathy measuring up to 2.1 cm. Differential diagnosis includes pneumonia or underlying lung neoplasm. Close followup imaging recommended after treatment for pneumonia, to assess for underlying mass. Cristofer De Santiago MD Physical Exam CONSTITUTIONAL/GENERAL: This is a morbidly obese patient, TUBES/LINES/DRAINS: SKIN: no rash NECK: trach in place, site OK, small amount of secretions CARDIOVASCULAR: No murmurs, rgular rat, rhythm No JVD. Peripheral pulses symmetric. RESPIRATORY/CHEST: Symmetric, unlabored respirations. coarse BS, scattered rhonchi GASTROINTESTINAL: Abdomen is soft , not distended, not tender , no guarding or rebound. . Bowel sounds present. Dignishiled in place with light brown liquid stool GENITOURINARY: Without palpable bladder distension. MUSCULOSKELETAL: Extremities without clubbing, cyanosis, + improved edema, ecchymosis and indurated of L calf, NEUROLOGICAL: awake, alert, communicates and follows commands PSYCHIATRIC: calm Assessment & Plan Remarks PNA, Kleb pneumo - failrly sensitive - PSAE , Stenotrophomonas and Kleb in the sputum ? unclear is Steno malt is a coloniser vs a true pathogen, but improved after Bactrim was introdused ARDS Acute VDRF, tolerating weaning - sp trach, on Tpiece R sided PTX sp CT Abx associated diarrhea, C.diff negative agasin 12/15 Abnormal UA, CANDIDURIA Persiastent leukocytosis and bandemia - ? new PNA - h/o MDRO Pseudomonas Sacral decub, doubt infection - chirag Wong Diarrhea, abx associated - C.diff negative REC's: fu WBC cont Avicaz fu sputum clx untill final will adjust abx per clx : Avicaz, Zerbaxa S are pending Mariana Doran Dr, RN, MD Jan 08, 2017 17:56
[2017-01-08] MEDS: ESCITALOPRAM OXALATE 10 MG TAB PO SCH (20:17)
[2017-01-09] VITALS (11 sets, daily range): BP systolic 92–121; BP diastolic 53–68; PULSE 65–93; RESP 12–35; TEMP 98.1–98.8; O2SAT 90–98
[2017-01-09] MEDS: DILTIAZEM HCL 60 MG TAB PO SCH ×5 (00:09→22:19)
[2017-01-09] MEDS: cefTAZidime/AVIBACTAM INJ 2.5 GM in SODIUM CHLORIDE 0.9% INJ 50 ML IV SCH ×3 (01:46→17:30)
[2017-01-09] MEDS: INSULIN NovoLIN REGULAR SUPPLEMENTAL SCALE SQ SCH ×4 (01:50→19:41)
[2017-01-09] MEDS: CHLORHEXIDINE GLUCONATE 2 % 1 PACK (2 CLOTHS) TOP SCH (03:08)
[2017-01-09] MEDS: METOPROLOL TARTRATE 25 MG TAB PO SCH ×3 (06:00→22:19)
[2017-01-09 07:14] LABS: APTT (PATIENT) 23.5 SEC (24.3-30.1)
[2017-01-09] MEDS: RESP: BUDESONIDE 0.5 MG/2 ML NEB NEB SCH ×2 (07:50→20:38)
[2017-01-09] MEDS: DIGOXIN 0.125 MG TAB PO SCH (07:56)
[2017-01-09] MEDS: predniSONE 5 MG TAB PO SCH (07:56)
[2017-01-09] MEDS: FAMOTIDINE 20 MG TAB NG SCH ×2 (07:56→19:37)
[2017-01-09] MEDS: LISINOPRIL 10 MG TAB PO SCH (07:56)
[2017-01-09] MEDS: POTASSIUM CHLORIDE 25 MEQ EFFERVESCENT TAB G-TUBE SCH (07:56)
[2017-01-09] MEDS: SODIUM CHLORIDE 1 GRAM TAB PO SCH ×2 (07:56→19:38)
[2017-01-09] MEDS: LACTOBACILLUS ACIDOPHILUS TAB PO SCH ×2 (07:56→19:37)
[2017-01-09] MEDS: FUROSEMIDE 20 MG TAB PO SCH (07:57)
[2017-01-09] MEDS: SODIUM CHLORIDE 0.9% FLUSH 10 ML FLUSH IVF SCH (07:57)
[2017-01-09] MEDS: AMIODARONE 200 MG TAB OG-TUBE SCH (07:57)
[2017-01-09] MEDS: ARTIFICIAL TEARS OPTH OINT 3.5 APPLIC/3.5 GM TUBO EACH EYE SCH ×2 (07:58→19:41)
[2017-01-09] MEDS: CHLORHEXIDINE 0.12% (ORAL KIT) 15 ML CUP MT SCH ×2 (07:58→19:38)
[2017-01-09] MEDS: INSULIN DETEMIR 100 UNITS/ML VIAL SQ SCH (07:58)
[2017-01-09] MEDS: SODIUM HYPOCHLORITE 0.125% 500 ML BTL TOPICAL SCH ×2 (07:58→19:41)
[2017-01-09] MEDS: RESP: ALBUTEROL 2.5 MG/3 ML NEB (PRN) NEB ×2 (08:06→20:38)
[2017-01-09] MEDS: ENOXAPARIN SODIUM 40 MG/0.4 ML SYRINGE SQ SCH (08:09)
--- NOTE | 2017-01-09 12:17 | HHI.PR ---
Subjective Remarks Alert and on T Bar at 30 % FIo2 Has some edema of arms and feet Using PM valve. Objective Vital Signs Date Time Temp Pulse Resp B/P (MAP) Pulse Ox O2 Delivery O2 Flow Rate FiO2 01/09/17 08:00 98.1 72 12 121/63 (82) 97 01/09/17 08:00 72 01/09/17 07:58 18 01/09/17 07:56 93 Trach Collar 7.00 40 01/09/17 07:00 98 Bi-Pap 16.00 70 01/09/17 04:00 65 01/09/17 04:00 98.7 65 20 92/53 (66) 96 01/09/17 03:08 98 35 01/09/17 00:21 95 35 01/09/17 00:00 68 01/09/17 00:00 98.8 68 35 103/61 (75) 94 01/08/17 22:18 98 35 01/08/17 20:00 73 01/08/17 20:00 98.9 73 18 115/55 (75) 92 01/08/17 19:44 98 Trach Collar 40 01/08/17 19:00 94 T-Piece 01/08/17 16:00 98.6 70 17 94/50 (65) 93 01/08/17 16:00 70 I/O 01/08/17 01/08/17 01/08/17 01/09/17 01/09/17 01/09/17 07:00 15:00 23:00 07:00 15:00 23:00 Intake Total 633 ml 50 ml 1526 ml 735 ml Output Total 1150 ml 1350 ml 700 ml Balance -517 ml 50 ml 176 ml 35 ml Intake Oral 800 ml IV Total 50 ml 50 ml 50 ml 50 ml Tube Feeding 463 ml 556 ml 565 ml Other 120 ml 120 ml 120 ml Output Urine Total 1000 ml 1350 ml 600 ml Stool Total 150 ml 100 ml Result Diagram: 01/07/1739901/09/17 0436 Objective Remarks GENERAL: Obese middle-aged white male who is a alert Has 1 + edema of the extremities. HEENT: Head normocephalic. Pupils are reactive. NECK: Supple. No bruits or thyroid enlargement. No venous distension. CHEST: Equal movements with diminished breath sounds at the bases, with Occ Crackles . HEART: The heart sounds are regular. S1 and S2 with no definite murmur. ABDOMEN: Obese, protuberant. No masses, no organomegaly. EXTREMITIES: Mild edema. Decreased peripheral pulses. Reflexes 1+. The patient has some weakness of his lower extremities.and left arm. 1 + edema of all limbs. SKIN: Dry and scaly. Assessment and Plan Assessment and Plan IMPRESSION 1. Resolving respiratory failure. 2. Basilar pneumonia and hypoxemia. 3. COPD and chronic bronchitis. 4. Possible obstructive sleep apnea syndrome. 5. Hypertension. 6. Atrial fibrillation and CHF. 7. Severe sepsis, resolved. Plan : 1. BIPAP 12/5 CM FIO2 30 % at HS 2. Continue Diuretics. 3. Antibiotics per ID 4. T bar 35 % daytime 7 am to 7 pm. 5. PT Evaluation.Up with help 6. Duoneb nebs qid. 7. Tube feeds at 55 CC. 8. PM valve as tolerated. Laura Haile MD Jan 09, 2017 12:17
[2017-01-09] MEDS: REMOVE OLD FENTANYL PATCH T-DERMAL SCH (14:00)
--- NOTE | 2017-01-09 17:00 | HHI.PR ---
Subjective Remarks awake and alert taking good po on tpiece daytime and BiPAP at hs blood sugar readings good Objective Vitals Vital Signs Date Time Temp Pulse Resp B/P (MAP) Pulse Ox O2 Delivery O2 Flow Rate FiO2 01/09/17 16:00 84 01/09/17 16:00 98.6 84 17 108/68 (81) 93 01/09/17 12:00 82 01/09/17 12:00 98.4 82 20 113/66 (82) 90 01/09/17 08:00 98.1 72 12 121/63 (82) 97 01/09/17 08:00 72 01/09/17 07:58 18 01/09/17 07:56 93 Trach Collar 7.00 40 01/09/17 07:00 98 Bi-Pap 16.00 70 01/09/17 04:00 65 01/09/17 04:00 98.7 65 20 92/53 (66) 96 01/09/17 03:08 98 35 01/09/17 00:21 95 35 01/09/17 00:00 68 01/09/17 00:00 98.8 68 35 103/61 (75) 94 01/08/17 22:18 98 35 01/08/17 20:00 73 01/08/17 20:00 98.9 73 18 115/55 (75) 92 01/08/17 19:44 98 Trach Collar 40 01/08/17 19:00 94 T-Piece I/O 01/08/17 01/08/17 01/08/17 01/09/17 01/09/17 01/09/17 07:00 15:00 23:00 07:00 15:00 23:00 Intake Total 633 ml 50 ml 1526 ml 735 ml 50 ml Output Total 1150 ml 1350 ml 700 ml Balance -517 ml 50 ml 176 ml 35 ml 50 ml Intake Oral 800 ml IV Total 50 ml 50 ml 50 ml 50 ml 50 ml Tube Feeding 463 ml 556 ml 565 ml Other 120 ml 120 ml 120 ml Output Urine Total 1000 ml 1350 ml 600 ml Stool Total 150 ml 100 ml Result Diagram: 01/07/17 0400 01/09/17 0436 Imaging Last Impressions Chest X-Ray 01/05/17 0600 Signed Impressions: Service Date/Time: Thursday, January 05, 2017 04:00 - CONCLUSION: 1. Cardiomegaly and findings of vascular congestion without overt failure. The findings are improved when compared with the prior exam. Diego Callahan MD Lower Extremity Ultrasound 01/01/17 0000 Signed Impressions: Service Date/Time: Sunday, January 01, 2017 13:40 - CONCLUSION: 1. No DVT is identified within either lower extremity. 2. Complex cystic appearing collection in the popliteal fossa and calf region on the left measuring up to 18.6 cm. 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 Jayson Levin MD Chest Ultrasound 12/27/16 0000 Signed Impressions: Service Date/Time: December 19:04 - CONCLUSION: Minimal right pleural effusion and the patient was not marked for thoracentesis. Jhonathan Dietz MD Abdomen X-Ray 12/19/16 0000 Signed Impressions: Service Date/Time: Monday, December 19, 2016 07:55 - CONCLUSION: Mildly dilated loops of small and large bowel characteristic of ileus. Fito Joshua MD Abdomen/Pelvis CT 12/15/16 0000 Signed Impressions: Service Date/Time: Thursday, December 15, 2016 10:50 - CONCLUSION: 1. Distended bowel especially the small bowel and the cecum. This is nonspecific. A transition point is not seen. This could relate to ileus. Oral contrast does extend to the rectum. 2. Bibasilar areas of consolidation at the lung bases. There also is a possible small pneumothorax on the right. The patient does have a right chest tube in place. 3. G-tube. 4. Distended gallbladder. 5. Increased soft tissue density in the left lateral abdominal wall which could be from prior trauma or edema. Jayson Soto MD Cervical Spine MRI 12/03/16 0000 Signed Impressions: Service Date/Time: Saturday, December 03, 2016 13:13 - CONCLUSION: Severely limited exam. I believe there is increased signal in the cervical cord mid C3 to mid C5. Ward Kim MD FACR Brain MRI 12/03/16 0000 Signed Impressions: Service Date/Time: Saturday, December 03, 2016 13:13 - CONCLUSION: 1. There is a small area of abnormal T2 signal in the left frontal cortex this is unchanged from the previous examination dated 11/26/16. This is nonspecific in appearance on the MRI. Differential considerations would be a small area of gliosis versus an old area of contusion. Follow up examination in 6 months to document stability would be warranted. 2. No findings to indicate acute cortical infarction are identified. Román Kim MD Gastrostomy Tube Placement 11/30/16 0000 Signed Impressions: Service Date/Time: Wednesday, November 30, 2016 12:22 - CONCLUSION: Uncomplicated gastrostomy tube placement as above. Jorge Jolly MD Liver Ultrasound 11/09/16 0000 Signed Impressions: Service Date/Time: Wednesday, November 09, 2016 13:58 - CONCLUSION: Sono dense liver without duct dilatation. 4 mm common duct. Ward Kim MD FACR Chest CT 11/06/16 0000 Signed Impressions: Service Date/Time: Sunday, November 06, 2016 11:24 - CONCLUSION: 1. Dense bilateral posterior lower lobe airspace consolidation consistent with aspiration versus less likely pneumonia. 2. Linear consolidation in the right middle lobe consistent with atelectasis versus aspiration. 3. Trace left and small right pleural effusions. 4. Support lines and tubes in good position. 5. Prominent coronary artery calcifications. Nico Vaughan MD Head CT 11/05/16 0000 Signed Impressions: Service Date/Time: Saturday, November 05, 2016 21:43 - CONCLUSION: 1. No acute intracranial abnormalities. Pansinus fluid opacification. Cristofer De Santiago MD Carotid Artery Ultrasound 10/25/16 0000 Signed Impressions: Service Date/Time: September 08:27 - CONCLUSION: Mild to moderate plaque in both carotid systems with less than 40%% diameter stenosis by velocity criteria. Jhonathan Dietz MD CT Angiography 10/25/16 0000 Signed Impressions: Service Date/Time: September 06:12 - CONCLUSION: 1. Negative for pulmonary embolism. 2. There is a fairly large area of masslike consolidation in the medial right lung involving posterior segment right upper lobe and medial aspect of right lower lobe. There is associated right hilar and mediastinal adenopathy measuring up to 2.1 cm. Differential diagnosis includes pneumonia or underlying lung neoplasm. Close followup imaging recommended after treatment for pneumonia, to assess for underlying mass. Cristofer De Santiago MD Objective Remarks awake and alert ff all commands anicteric t piece in place lungs-- no rales regular rhythm abdomen soft, nontender extremities tr edema, good peripheral pulses sacral decubitus- stage 4- deep, edges, clean , no foul, no bleeding 01/06 exam bilateral infragluteal area/posterior aspect of the thigh - linear open wounds edges clean, left greater than right 01/07 exam moves all extremities spontaneously condom catheter A/P Assessment and Plan Assessment and Plan Neuro/Psych: Metabolic encephalopathy - resolved. CIM/SHEFALI S/p Neuromuscular paralysis for Prone therapy Syncope Depression MRI C-spine showing increased signals C3-C5 region. Dr Riggins reviewed MRI spine- not sure about increased signal in cord, could be cervical hyperextension injury, from intubation according to him. Unable to do flexion- extension films of the C-spine (trached patient). 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 Haloperidol 5mg iv q4h prn for agitation. Escitalopram 10 mg qhs or depression from 12/07/16. MRI brain 11/26: Small focal signal abnormality in the superior medial left frontal lobe. Could be sequela from prior insult such as a contusion or small infarct. No acute infarct MRI brain 12/[address] on admission revealed no acute intracranial findings, CT brain 11/05- no acute findings. opacification of sinuses. EEG 11/20: No seizure activity. EEG 11/09: severe encephalopathy PT/OT for range of motion, up to stretcher chair as tolerated CV: Hypotension-resolved Atrial fib/ flutter with RVR - rate controlled.- telemetry in SR Hypertension on amiodarone to 200mg po daily for maintenance dose. digoxin 0.125 mg po daily. recheck level 01/04 and [id number] as long as stable. PO Diltiazem 90 mg PO q6hr- taper down to 60 mg po 6 on metoprolol 50mg Q6 - will decrease dose 25 mg po q8 with borderline SBPs Coumadin and heparin 12/10 held due to left popliteal fossa hematoma. now on lovenox for prophylactic dose since 12/24. given high risk for bleeding complication and low CHADS-VaSC risk, risk/benefit at this time in favor of holding full anticoagulation. Echo 10/25 EF 60-65%. Repeat echo with bubble study: 11/22: No shunt seen Resp: Acute, now chronic hypoxemic Respiratory failure s/p trach 11/27 Spontaneous Right sided PTX secondary to barotrauma - resolved. COPD exacerbation - resolved. Pneumonia most likely community-acquired - resolved. Obesity hypoventilation syndrome Tobacco use disorder albuterol aerosols every 2 hours PRN. Ventilator bundle on T piece - on fenestrated- Passimuir Budesonide 0.5 mg/2 mL aerosols twice a day. on Prednisone 10 mg daily continue to wean s/p trach 11/[address] Martin #8 [place]. Pulmonary following. appreciate assistance. s/p 20Fr CT placed for right PTX 11/23, monitor CT drainage. d/c chest tube . CT pulmonary angio revealed no pulmonary embolus. Masslike consolidation in the posterior right upper lobe and medial right lower lobe. Lymphadenopathy to 1 cm right hilum and subcarinal. Atelectasis left lower lobe. Discontinued Prone therapy 11/02/16. continue t-piece as tolerated. BiPAP at hs GI: Ileus - resolved.- improved on dignishield Morbid Obesity Elevated LFT's- now within normal. PEG tube placement 11/30. US liver: No ductal dilatation tube feeds with vital high-protein currently at 50 cc/hr. Metoclopramide 10 mg every 6 hours, change to PO.- DC with the diarrhea 01/04 No Cholecystostomy tube recommended by Dr. Nguyen. Recommended advance diet as tolerated Famotidine 20 milligrams mg twice a day for GI prophylaxis /renal/FEN: Hyponatremia Hypopotassemia Diarrhea: - improved C diff is negative. on lactinex and imodium. Monitor lytes Monitor renal function, I/O's, electrolytes replacement per protocol. Currently on sodium chloride 1 g every 12 hours Endo: Hyperglycemia- good readings on current regimen SSI Q6h on Levemer 8 units SQ bid- -not getting it for past 3 days- will DC starting tonight 01/09 and ff blood sugars Heme: Normocytic anemia - stable. Leukocytosis L popliteal fossa hematoma - stable. Monitor closely for compartment syndrome ID: Severe sepsis - resolved. HCAP -resolved Leukocytosis Per production cost estimator, pt has a sacrococcygeal Wound measuring 4cm x 3cm x ~3.2cm. ~ 50% yellow loosely adherent slough is noted at the base, with ~50% pink tissue. I did evaluate the wound. Wound is foul smelling on exam today w some yellow/purulent discharge. Wound cultures have been obtain. I Add Patel po bid to help with wound healing Sputum: Klebsiella, Stenotrophomonas and Pseudomonas 11/27 Sputum cx 11/23: Kleb, Pseudomonas, s/p (ceftriaxone and fluconazole course). ID is following-Dr. Patel s/p ceftriaxone 11/02-11/09 for Enterobacter pneumonia. Repeat sputum Klebsiella sensitive to Rocephin started on Avicaz 01/03 Flagyl DC- 01/04 C-diff PCR is negative GI, famotidine. DVT - on lovenox. s/pIV heparin gtt/Coumadin DCd 12/10 due to left popliteal hematoma. Given bleeding complications with low CHADS-VaSC risk, risk/benefit in favor of holding full anticoagulation. 11/09 Doppler US LE negative for DVT Palliative care is following FEN- taking po very well- on mechanical soft diet will DC tube feedings starting tonight 01/09 add Patel po bid for wound healing monitor po Add ensure tid with each tray Nutrtionist will continue to ff along with us Discharge Planning continue care in ICU Aranza Loza MD Jan 09, 2017 17:00
[2017-01-09] MEDS: ESCITALOPRAM OXALATE 10 MG TAB PO SCH (19:38)
[2017-01-10] VITALS (16 sets, daily range): BP systolic 94–136; BP diastolic 50–78; PULSE 69–87; RESP 15–20; TEMP 98.2–99; O2SAT 92–98
[2017-01-10] MEDS: INSULIN NovoLIN REGULAR SUPPLEMENTAL SCALE SQ SCH ×3 (02:00→14:00)
[2017-01-10] MEDS: cefTAZidime/AVIBACTAM INJ 2.5 GM in SODIUM CHLORIDE 0.9% INJ 50 ML IV SCH ×3 (02:38→17:24)
[2017-01-10] MEDS: CHLORHEXIDINE GLUCONATE 2 % 1 PACK (2 CLOTHS) TOP SCH (04:00)
[2017-01-10] MEDS: DILTIAZEM HCL 60 MG TAB PO SCH ×3 (04:50→17:24)
[2017-01-10] MEDS: METOPROLOL TARTRATE 25 MG TAB PO SCH ×3 (04:51→22:09)
[2017-01-10 05:52] LABS: HEMATOCRIT 29.2 % (39.0-51.0); MEAN CORPUSCULAR HEMOGLOBIN 31.4 PG (27.0-34.0); MEAN CORPUSCULAR HGB CONC 33.8 % (32.0-36.0); PLATELET COUNT 447 TH/MM3 (150-450); RED BLOOD COUNT 3.14 MIL/MM3 (4.50-5.90); RED CELL DISTRIBUTION WIDTH 15.9 % (11.6-17.2); REVIEW FLAG FINAL; WHITE BLOOD COUNT 16.8 TH/MM3 (4.0-11.0)
[2017-01-10 06:06] LABS: APTT (PATIENT) 24.7 SEC (24.3-30.1)
[2017-01-10] MEDS: RESP: BUDESONIDE 0.5 MG/2 ML NEB NEB SCH ×2 (07:30→19:43)
[2017-01-10] MEDS: RESP: ALBUTEROL 2.5 MG/3 ML NEB (PRN) NEB ×2 (07:30→19:43)
[2017-01-10] MEDS: SODIUM CHLORIDE 1 GRAM TAB PO SCH ×2 (07:49→22:09)
[2017-01-10] MEDS: POTASSIUM CHLORIDE 25 MEQ EFFERVESCENT TAB G-TUBE SCH (07:49)
[2017-01-10] MEDS: LACTOBACILLUS ACIDOPHILUS TAB PO SCH ×2 (07:49→22:09)
[2017-01-10] MEDS: FUROSEMIDE 20 MG TAB PO SCH (07:50)
[2017-01-10] MEDS: FAMOTIDINE 20 MG TAB NG SCH ×2 (07:50→22:09)
[2017-01-10] MEDS: LISINOPRIL 10 MG TAB PO SCH (07:50)
[2017-01-10] MEDS: AMIODARONE 200 MG TAB OG-TUBE SCH (07:50)
[2017-01-10] MEDS: predniSONE 5 MG TAB PO SCH (07:50)
[2017-01-10] MEDS: DIGOXIN 0.125 MG TAB PO SCH (07:50)
[2017-01-10] MEDS: ARTIFICIAL TEARS OPTH OINT 3.5 APPLIC/3.5 GM TUBO EACH EYE SCH (07:51)
[2017-01-10] MEDS: CHLORHEXIDINE 0.12% (ORAL KIT) 15 ML CUP MT SCH (07:51)
[2017-01-10] MEDS: SODIUM HYPOCHLORITE 0.125% 500 ML BTL TOPICAL SCH (07:51)
[2017-01-10] MEDS: SODIUM CHLORIDE 0.9% FLUSH 10 ML FLUSH IVF SCH (07:51)
[2017-01-10] MEDS: ENOXAPARIN SODIUM 40 MG/0.4 ML SYRINGE SQ SCH (08:47)
--- NOTE | 2017-01-10 09:54 | HHI.PR ---
Subjective Remarks Follow-up for multiple medical conditions assessment plan Patient's nurse at the bedside during the interview. Patient has no complaints. Denied any shortness of breathing. He has no concerns. He remains afebrile. Per patient nurse he usually requires a lot of suctioning but that has been decreasing. Objective Vitals Vital Signs Date Time Temp Pulse Resp B/P (MAP) Pulse Ox O2 Delivery O2 Flow Rate FiO2 01/10/17 08:40 98 Nasal Cannula 5.00 01/10/17 08:40 Nasal Cannula 5.00 01/10/17 07:30 98 35 01/10/17 07:00 94 T-Piece 40 01/10/17 04:42 96 BiPAP 01/10/17 04:30 96 35 01/10/17 04:00 98.2 69 17 100/56 (71) 97 01/10/17 04:00 69 01/10/17 02:38 18 01/10/17 01:02 97 35 01/10/17 00:00 75 01/10/17 00:00 98.6 75 18 122/58 (79) 96 01/09/17 22:00 90 01/09/17 20:48 96 35 01/09/17 20:00 93 01/09/17 20:00 98.5 93 17 112/58 (76) 94 01/09/17 19:00 95 T-Piece 40 01/09/17 16:00 84 01/09/17 16:00 98.6 84 17 108/68 (81) 93 01/09/17 12:00 82 01/09/17 12:00 98.4 82 20 113/66 (82) 90 I/O 01/09/17 01/09/17 01/09/17 01/10/17 01/10/17 01/10/17 07:00 15:00 23:00 07:00 15:00 23:00 Intake Total 735 ml 50 ml 1000 ml 50 ml Output Total 700 ml 925 ml 1100 ml Balance 35 ml 50 ml 75 ml -1100 ml 50 ml Intake Oral 420 ml IV Total 50 ml 50 ml 50 ml 50 ml Tube Feeding 565 ml 430 ml Other 120 ml 100 ml Output Urine Total 600 ml 875 ml 1100 ml Stool Total 100 ml 50 ml Result Diagram: 01/10/17 0456 01/09/17 0436 Objective Remarks Gen: in NAD sitting in bed comfortably NECK: t piece in place Resp: Transmitted upper 3 sounds. CV: regular rhythm abdomen: soft, nontender extremities: tr edema, good peripheral pulses sacral decubitus: - stage 4- deep, edges, clean , no foul, no bleeding 01/06 exam bilateral infragluteal area/posterior aspect of the thigh - linear open wounds edges clean, left greater than right 01/07 exam MSK moves all extremities spontaneously condom catheter Medications and IVs Current Medications Sodium Chloride (NS Flush) 2 ml UNSCH PRN IVF FLUSH AFTER USING IV ACCESS; Start 10/25/16 at 04:00; Stop 10/25/16 at 05:31; Status DC Sodium Chloride 1,000 ml @ 999 mls/hr BOLUS ONCE IV Last administered on 10/25 04:12; Start 10/25/16 at 04:00; Stop 10/25/16 at 05:00; Status DC Magnesium Sulfate/ Dextrose 100 ml @ 100 mls/hr ONCE ONCE IV Last administered on 10/25/16 04:19; Start 10/25/16 at 04:00; Stop 10/25/16 at 04:59 ; Status DC Methylprednisolone Sodium Succinate (SoluMEDROL INJ) 125 mg ONCE ONCE IVP Last administered on 10/25/16 04:12; Start 10/25/16 at 04:00; Stop 10/25/16 at 04:01; Status DC Albuterol/ Ipratropium (Duoneb Neb) 1 ampule Q15M INH Last administered on 10/25 04:00; Start 10/25/16 at 04:00; Stop 10/25/16 at 04:31; Status DC Ondansetron HCl (Zofran Inj) 4 mg ONCE ONCE IV PUSH Last administered on 04:12; Start 10/25/16 at 04:00; Stop 10/25/16 at 04:01; Status DC Sodium Chloride 1,000 ml @ 999 mls/hr BOLUS ONCE IV Last administered on 10/25 05:30; Start 10/25/16 at 05:00; Stop 10/25/16 at 06:00; Status DC Vancomycin HCl 2050 mg/Sodium Chloride 520.5 ml @ 250 mls/hr ONCE ONCE IV Last administered on 10/25/16 08:05; Start 10/25/16 at 05:00; Stop 10/25/16 at 07:04; Status DC Piperacillin Sod/ Tazobactam Sod 50 ml @ 100 mls/hr ONCE ONCE IV Last administered on 10/25/16 05:30; Start 10/25/16 at 05:00; Stop 10/25/16 at 05:29 ; Status DC Amlodipine Besylate (Norvasc) 5 mg HS PO Last administered on 11/03/16 21:36; Start 10/25/16 at 21:00; Stop 11/04/16 at 11:58; Status DC Lisinopril (Prinivil) 20 mg HS PO Last administered on 10/27/16 20:03; Start at 21:00; Stop 10/28/16 at 08:31; Status DC Sodium Chloride (NS Flush) 2 ml UNSCH PRN .XX FLUSH AFTER USING IV ACCESS Last administered on 11/29/16 04:16; Start 10/25/16 at 05:30; Stop 12/24/16 at 08: 50; Status DC Sodium Chloride (NS Flush) 2 ml BID .XX Last administered on 12/23/16 21:24; Start 10/25/16 at 09:00; Stop 12/24/16 at 08:50; Status DC Acetaminophen (Tylenol) 650 mg Q6H PRN PO FEVER >101F Last administered on 11/23 13:20; Start 10/25/16 at 05:30 Famotidine (Pepcid) 20 mg Q12HR PO Last administered on 10/25/16 21:08; Start 10/25/16 at 09:00; Stop 10/26/16 at 08:21; Status DC Ondansetron HCl (Zofran Inj) 4 mg Q6H PRN IV NAUSEA OR VOMITING; Start at 05:30 Zolpidem Tartrate (Ambien) 5 mg HS PRN PO INSOMNIA; Start 10/25/16 at 05:30; Stop 10/25/16 at 14:09; Status DC Albuterol/ Ipratropium (Duoneb Neb) 1 ampule Q4HR NEB INH Last administered on 10/28/16 07:57; Start 10/25/16 at 08:00; Stop 10/28/16 at 08:31; Status DC Albuterol/ Ipratropium (Duoneb Neb) 1 ampule Q2HR NEB PRN INH WHEEZING; Start 10/25/16 at 05:30; Stop 10/25/16 at 12:21; Status DC Enoxaparin Sodium (Lovenox Inj) 40 mg Q24H SQ Last administered on 10/26/16 05: 06; Start 10/25/16 at 06:00; Stop 10/26/16 at 08:21; Status DC Miscellaneous Information 1 [id number] Last administered on 10/25/16 21:10; Start 10/25/16 at 05:30 Chlorhexidine Gluconate (Chlorhexidine 2% Cloth) 3 pack Taper DAILY@04 TOP Last administered on 01/10/17 04:00; Start 10/26/16 at 04:00; Stop 10/22/17 at 03:59 Chlorhexidine Gluconate (Chlorhexidine 2% Cloth) 3 pack UNSCH PRN TOP HYGIENIC CARE; Start 10/25/16 at 05:30 Senna/Docusate Sodium (Olga-Colace) 1 tab BID PO Last administered on 10/27/16 08:21; Start 10/25/16 at 09:00; Stop 10/27/16 at 12:32; Status DC Magnesium Hydroxide (Milk Of Magnesia Liq) 30 ml Q12H PRN PO MILD - MODERATE CONSTIPATION Last administered on 10/26/16 20:52; Start 10/25/16 at 05:30 Sennosides (Senokot) 17.2 mg Q12H PRN PO MODERATE - SEVERE CONSTIPATION Last administered on 12/11/16 02:44; Start 10/25/16 at 05:30 Bisacodyl (Dulcolax Supp) 10 mg DAILY PRN RECTAL SEVERE CONSITIPATION; Start at 05:30 Lactulose (Lactulose Liq) 30 ml DAILY PRN PO SEVERE CONSITIPATION; Start at 05:30 Piperacillin Sod/ Tazobactam Sod 100 ml @ 200 mls/hr Q6H IV Last administered on 11/02/16 11:37; Start 10/25/16 at 11:00; Stop 11/02/16 at 12:45; Status DC Azithromycin 500 mg/Sodium Chloride 250 ml @ 250 mls/hr Q24H IV Last administered on 11/02/16 05:04; Start 10/25/16 at 06:00; Stop 11/02/16 at 12:45; Status DC Methylprednisolone Sodium Succinate (SoluMEDROL INJ) 40 mg Q6H IV Last administered on 10/25/16 09:27; Start 10/25/16 at 10:00; Stop 10/25/16 at 13:45 ; Status DC Iohexol (Omnipaque 350 Inj) 75 ml STK-MED ONCE IVCONTRAST Last administered on 10/25/16 06:30; Start 10/25/16 at 06:30; Stop 10/25/16 at 06:31; Status DC Albuterol Sulfate (Albuterol Neb) 2.5 mg Q2HR NEB PRN NEB DYSPNEA Last administered on 11/22/16 03:15; Start 10/25/16 at 14:00; Stop 11/23/16 at 10:42 ; Status DC Budesonide (Pulmicort Respule Neb) 0.5 mg Q12HR NEB NEB Last administered on 12/17/16 07:18; Start 10/25/16 at 20:00; Stop 12/17/16 at 11:38; Status DC Sodium Chloride (Sodium Chloride 3% Neb) 2 ml Q4HR NEB NEB Last administered on 10/30/16 16:17; Start 10/25/16 at 16:00; Stop 10/30/16 at 15:59; Status DC Etomidate (Amidate Inj) 40 mg STK-MED ONCE .ROUTE ; Start 10/25/16 at 13:17; Stop 10/25/16 at 13:18; Status DC Rocuronium [place] (Zemuron Inj) 100 mg STK-MED ONCE .ROUTE Last administered on 10/25/16 13:47; Start 10/25/16 at 13:17; Stop 10/25/16 at 13:18; Status DC Etomidate (Amidate Inj) 40 mg ONCE ONCE IV PUSH ; Start 10/25/16 at 13:30; Stop 10/25/16 at 13:41; Status DC Rocuronium [place] (Zemuron Inj) 100 mg BOLUS ONCE IV Last administered on 13:30; Start 10/25/16 at 13:30; Stop 10/25/16 at 13:40; Status DC Chlorhexidine Gluconate (Peridex 0.12% Liq) 15 ml BID@08,20 MT Last administered on 01/09/17 19:38; Start 10/25/16 at 20:00 Propofol 100 ml @ 4.08 mls/hr TITRATE PRN IV SEDATION Last administered on 10/26 06:45; Start 10/25/16 at 13:30; Stop 10/26/16 at 08:16; Status DC Fentanyl Citrate 250 ml @ 5 mls/hr TITRATE PRN IV SEDATION Last administered on 11/07/16 23:20; Start 10/25/16 at 13:30; Stop 11/08/16 at 10:13; Status DC Sodium Chloride 1,000 ml @ 100 mls/hr Q10H IV Last administered on 10/27/16 15 :25; Start 10/25/16 at 13:30; Stop 10/27/16 at 16:28; Status DC Methylprednisolone Sodium Succinate (SoluMEDROL INJ) 60 mg Q6H IV Last administered on 10/28/16 05:10; Start 10/25/16 at 16:00; Stop 10/28/16 at 08:31; Status DC Dextrose (D50w (Vial) Inj) 50 ml UNSCH PRN IV HYPOGLYCEMIA-SEE COMMENTS; Start 10/25/16 at 14:15; Stop 11/20/16 at 07:52; Status DC Glucagon (Glucagon Inj) 1 mg UNSCH PRN OTHER HYPOGLYCEMIA-SEE COMMENTS; Start 10/25/16 at 14:15; Stop 11/20/16 at 07:52; Status DC Insulin Human Regular (NovoLIN R SUPPLEMENTAL SCALE) 1 Q6HR SQ Last administered on 11/03/16 12:00; Start 10/25/16 at 18:00; Stop 11/03/16 at 16:01; Status DC Potassium Chloride 100 ml @ 25 mls/hr Q2H IV ; Start 10/25/16 at 18:00; Stop at 21:59; Status DC Cisatracurium Besylate 100 mg/ Sodium Chloride 260 ml @ 21.21 mls/ hr TITRATE PRN IV TOF 1/4 Last administered on 10/26/16 02:50; Start 10/25/16 at 18:00; Stop 10/26/16 at 08:14; Status DC Midazolam HCl 100 ml @ 2 mls/hr TITRATE PRN IV SEDATION Last administered on 03:47; Start 10/25/16 at 16:15; Stop 11/03/16 at 13:00; Status DC Sodium Chloride (NS Flush) DAILY IVF Last administered on 01/10/17 07:51; Start 10/26/16 at 09:00 Sodium Chloride (NS Flush) UNSCH PRN IVF SEE PROTOCOL Last administered on 21:42; Start 10/25/16 at 16:45 Epoprostenol Sodium 87.5 ml/ Sodium Chloride 100 ml @ 8 mls/hr Q8H NEB Last administered on 10/27/16 08:20; Start 10/25/16 at 18:00; Stop 10/27/16 at 08:42; Status DC Protein (Beneprotein Powder) 2 pack TID G-TUBE Last administered on 11/12/16 18:00; Start 10/26/16 at 09:00; Stop 11/13/16 at 07:48; Status DC Cisatracurium Besylate 100 mg/ Sodium Chloride 250 ml @ 23.47 mls/ hr TITRATE PRN IV TOF goal Last administered on 11/02/16 07:10; Start 10/26/16 at 08:15; Stop 11/02/16 at 12:52; Status DC Propofol 100 ml @ 4.695 mls/ hr TITRATE PRN IV SEDATION Last administered on 12/03/16 07:47; Start 10/26/16 at 08:30; Stop 12/03/16 at 09:00; Status DC Enoxaparin Sodium (Lovenox Inj) 40 mg Q12HR SQ Last administered on 11/08/16 08:36; Start 10/26/16 at 21:00; Stop 11/08/16 at 10:13; Status DC Potassium Phosphate 15 mmol/ Sodium Chloride 155 ml @ 38.75 mls/ hr ONCE ONCE IV Last administered on 10/26/16 09:19; Start 10/26/16 at 08:45; Stop 10/26/16 at 12:44; Status DC Calcium Gluconate 1 gm/Dextrose 110 ml @ 110 mls/hr ONCE ONCE IV Last administered on 10/26/16 09:00; Start 10/26/16 at 09:00; Stop 10/26/16 at 09:59; Status DC Famotidine (Pepcid Inj) 20 mg Q12H IV PUSH Last administered on 11/16/16 08:19 ; Start 10/26/16 at 09:00; Stop 11/16/16 at 12:12; Status DC Artificial Tears (Lacrilube Opht Oint) 1 applic Q12HR EACH EYE Last administered on 01/10/17 07:51; Start 10/26/16 at 10:00 Epoprostenol Sodium 70 ml/ Sodium Chloride 100 ml @ 8 mls/hr Q8H NEB Last administered on 10/28/16 02:28; Start 10/27/16 at 16:00; Stop 10/28/16 at 09:12; Status DC Docusate Sodium (Colace Liq) 100 mg Q12HR PO Last administered on 11/09/16 21: 03; Start 10/27/16 at 21:00; Stop 11/10/16 at 09:22; Status DC Sennosides (Senna Liq) 8.8 mg BID PEG Last administered on 11/09/16 21:05; Start 10/27/16 at 21:00; Stop 11/10/16 at 09:22; Status DC Polyethylene Glycol (Miralax) 17 gm BID NG Last administered on 11/09/16 21:05 ; Start 10/27/16 at 21:00; Stop 11/10/16 at 09:22; Status DC Lactulose (Lactulose Liq) 30 ml QID PO Last administered on 11/09/16 17:39; Start 10/27/16 at 13:00; Stop 11/10/16 at 09:02; Status DC Sodium Phosphate 15 mmol/Sodium Chloride 155 ml @ 38.75 mls/ hr ONCE ONCE IV Last administered on 10/27/16 14:00; Start 10/27/16 at 14:00; Stop 10/27/16 at 17: 59; Status DC Furosemide (Lasix Inj) 40 mg ONCE ONCE IV PUSH Last administered on 10/27/16 13:54; Start 10/27/16 at 13:00; Stop 10/27/16 at 13:01; Status DC Calcium Gluconate (Calcium Gluconate Inj) 1 gm ONCE ONCE SLOW IVP Last administered on 10/28/16 07:40; Start 10/28/16 at 06:45; Stop 10/28/16 at 06:46; Status DC Insulin Human Regular (NovoLIN R INJ) 10 units ONCE ONCE IV PUSH Last administered on 10/28/16 07:38; Start 10/28/16 at 06:45; Stop 10/28/16 at 06:46; Status DC Dextrose (D50w (Vial) Inj) 50 ml ONCE ONCE IV PUSH Last administered on 07:38; Start 10/28/16 at 06:45; Stop 10/28/16 at 06:46; Status DC Sodium Bicarbonate (Sodium Bicarbonate 8.4% Inj) 50 meq ONCE ONCE SLOW IVP Last administered on 10/28/16 07:38; Start 10/28/16 at 06:45; Stop 10/28/16 at 06: 46; Status DC Sodium Polystyrene Sulfonate (Kayexalate Liq) 15 gm ONCE ONCE NG Last administered on 10/28/16 07:40; Start 10/28/16 at 06:45; Stop 10/28/16 at 06:46; Status DC Albuterol Sulfate (Albuterol Neb) 2.5 mg ONCE ONCE NEB Last administered on 06:53; Start 10/28/16 at 06:45; Stop 10/28/16 at 06:46; Status DC Albuterol/ Ipratropium (Duoneb Neb) 1 ampule Q4HR NEB INH Last administered on 11/01/16 11:21; Start 10/28/16 at 12:00; Stop 11/01/16 at 11:59; Status DC Methylprednisolone Sodium Succinate (SoluMEDROL INJ) 60 mg Q8HR IV Last administered on 10/31/16 05:08; Start 10/28/16 at 14:00; Stop 10/31/16 at 09:14; Status DC Hydralazine HCl (Apresoline) 25 mg Q8HR PO Last administered on 11/12/16 05:04 ; Start 10/28/16 at 14:00; Stop 11/12/16 at 07:25; Status DC Isosorbide Dinitrate (Isordil) 10 mg Q8HR PO Last administered on 11/23/16 05: 27; Start 10/28/16 at 14:00; Stop 12/24/16 at 08:50; Status DC Acetazolamide Sodium (Diamox Inj) 250 mg ONCE ONCE IV PUSH Last administered on 10/28/16 09:02; Start 10/28/16 at 09:00; Stop 10/28/16 at 09:08; Status DC Epoprostenol Sodium 87.5 ml/ Sodium Chloride 100 ml @ 8 mls/hr Q8H NEB Last administered on 10/31/16 04:32; Start 10/28/16 at 10:00; Stop 10/31/16 at 09:52; Status DC Methylnaltrexone [place] (Relistor Inj) 12 mg ONCE ONCE SQ Last administered on 10/28/16 10:49; Start 10/28/16 at 10:00; Stop 10/28/16 at 10:01; Status DC Mineral Oil (Kondremul Liq) 30 ml ONCE ONCE PO ; Start 10/28/16 at 09:15; Stop 10/28/16 at 09:16; Status Cancel Mineral Oil (Mineral Oil Liq) 30 ml ONCE ONCE PO Last administered on 10:50; Start 10/28/16 at 11:00; Stop 10/28/16 at 11:01; Status DC Bumetanide (Bumex Inj) 1 mg Q8H IV PUSH Last administered on 11/02/16 12:19; Start 10/29/16 at 13:00; Stop 11/02/16 at 12:51; Status DC Acetazolamide Sodium (Diamox Inj) 500 mg DAILY IV PUSH Last administered on 10/30 08:30; Start 10/29/16 at 12:45; Stop 10/31/16 at 08:59; Status DC Linezolid 300 ml @ 300 mls/hr Q12H IV Last administered on 11/10/16 14:02; Start 10/29/16 at 14:00; Stop 11/11/16 at 00:10; Status DC Hydralazine HCl (Apresoline Inj) 20 mg Q4H PRN IV PUSH SBP>160, DBP>90 Last administered on 11/04/16 12:04; Start 10/30/16 at 23:45; Stop 11/15/16 at 16:07 ; Status DC Methylprednisolone Sodium Succinate (SoluMEDROL INJ) 40 mg Q8HR IV Last administered on 11/02/16 05:04; Start 10/31/16 at 14:00; Stop 11/02/16 at 12:53; Status DC Epoprostenol Sodium 52.5 ml/ Sodium Chloride 100 ml @ 8 mls/hr Q8H NEB Last administered on 10/31/16 11:18; Start 10/31/16 at 10:00; Stop 10/31/16 at 17:59; Status DC Epoprostenol Sodium 35 ml/ Sodium Chloride 100 ml @ 8 mls/hr Q8H NEB ; Start 10/31/16 at 18:00; Stop 11/01/16 at 01:59; Status DC Epoprostenol Sodium 17.5 ml/ Sodium Chloride 100 ml @ 8 mls/hr Q8H NEB Last administered on 10/31/16 23:28; Start 11/01/16 at 02:00; Stop 11/01/16 at 10:00; Status DC Insulin Detemir (Levemir Inj) 15 units Q12H SQ Last administered on 11/02/16 12 :19; Start 11/01/16 at 13:00; Stop 11/02/16 at 12:52; Status DC Albuterol/ Ipratropium (Duoneb Neb) 1 ampule Q6HR NEB NEB Last administered on 11/06/16 08:33; Start 11/02/16 at 12:45; Stop 11/06/16 at 10:52; Status DC Ceftriaxone Sodium 2000 mg/ Sodium Chloride 100 ml @ 200 mls/hr Q24H IV Last administered on 11/09/16 14:16; Start 11/02/16 at 14:00; Stop 11/09/16 at 17:22 ; Status DC Bumetanide (Bumex Inj) 1 mg Q12H IV PUSH Last administered on 11/04/16 12:22; Start 11/02/16 at 13:00; Stop 11/04/16 at 13:00; Status DC Insulin Detemir (Levemir Inj) 20 units Q12H SQ Last administered on 11/05/16 00:23; Start 11/02/16 at 13:00; Stop 11/05/16 at 11:10; Status DC Methylprednisolone Sodium Succinate (SoluMEDROL INJ) 40 mg Q12HR IV Last administered on 11/08/16 20:33; Start 11/02/16 at 21:00; Stop 11/09/16 at 08:07 ; Status DC Oxycodone HCl (Roxicodone Intensol Liq) 10 mg Q4H PO Last administered on 06:35; Start 11/03/16 at 15:00; Stop 11/08/16 at 10:13; Status DC Haloperidol Lactate (Haldol Inj) 5 mg Q4H PRN IV PUSH agitation Last administered on 12/31/16 23:19; Start 11/03/16 at 13:00 Quetiapine Fumarate (SEROquel) 100 mg Q8HR PO Last administered on 11/08/16 05 :37; Start 11/03/16 at 15:00; Stop 11/08/16 at 10:13; Status DC Labetalol HCl (Trandate Inj) 20 mg Q15M PRN IV PUSH sbp > 160 Last administered on 11/30/16 09:39; Start 11/03/16 at 13:00; Stop 12/02/16 at 09:58 ; Status DC Hydralazine HCl (Apresoline Inj) 10 mg Q30M PRN IV PUSH sbp > 160 Last administered on 11/06/16 02:25; Start 11/03/16 at 13:00; Stop 11/15/16 at 16:07 ; Status DC Clonidine (Catapres) 0.2 mg Q8HR PO Last administered on 11/04/16 05:11; Start 11/03/16 at 15:00; Stop 11/04/16 at 11:59; Status DC Acetazolamide Sodium (Diamox Inj) 500 mg Q8H IV PUSH Last administered on 07:12; Start 11/03/16 at 15:00; Stop 11/04/16 at 07:01; Status DC Dextrose (D50w (Vial) Inj) 25 ml UNSCH PRN IV PUSH HYPOGLYCEMIA-SEE COMMENTS; Start 11/03/16 at 13:00; Stop 11/20/16 at 07:52; Status DC Insulin Human Regular (NovoLIN R SUPPLEMENTAL SCALE) 1 Q4HR SQ Last administered on 11/19/16 20:00; Start 11/03/16 at 16:00; Stop 11/20/16 at 07:40 ; Status DC Bumetanide (Bumex Inj) 1 mg Q8H IV PUSH Last administered on 11/08/16 05:38; Start 11/04/16 at 20:00; Stop 11/08/16 at 10:09; Status DC Acetazolamide Sodium (Diamox Inj) 500 mg Q8H IV PUSH Last administered on 06:11; Start 11/04/16 at 15:00; Stop 11/05/16 at 07:01; Status DC Amlodipine Besylate (Norvasc) 10 mg DAILY PO Last administered on 11/07/16 08: 00; Start 11/04/16 at 13:00; Stop 11/07/16 at 15:19; Status DC Clonidine (Catapres) 0.3 mg Q8HR PO Last administered on 11/18/16 04:58; Start 11/04/16 at 14:00; Stop 11/18/16 at 08:49; Status DC Nicardipine HCl 25 mg/Sodium Chloride 260 ml @ 52 mls/hr TITRATE PRN IV Blood pressure management; Start 11/04/16 at 12:00; Stop 11/16/16 at 12:12; Status DC Propranolol HCl (Inderal) 40 mg Q8HR PO Last administered on 11/11/16 05:15; Start 11/04/16 at 14:00; Stop 11/11/16 at 09:35; Status DC Alteplase, Recombinant (Cathflo Activase Inj) 2 mg NOW ONCE IV FLUSH Last administered on 11/04/16 21:49; Start 11/04/16 at 20:45; Stop 11/04/16 at 20:46 ; Status DC Alteplase, Recombinant (Cathflo Activase Inj) 2 mg NOW ONCE IV FLUSH ; Start at 21:00; Stop 11/04/16 at 21:01; Status DC Potassium Chloride 100 ml @ 50 mls/hr Q2H PRN IV For Potassium 2.8 - 3.2 mEq/ L Last administered on 11/29/16 09:27; Start 11/05/16 at 04:45 Potassium Chloride 100 ml @ 50 mls/hr Q2H PRN IV For Potassium 2.8 - 3.2 mEq/ L Last administered on 11/24/16 13:18; Start 11/05/16 at 04:45 Potassium Bicarb/ Potassium Chloride (K-Lyte Cl Eff) 50 meq UNSCH PRN PO For Potassium 3.3 - 3.5 mEq/L Last administered on 12/20/16 09:57; Start 11/05/16 at 04:45 Potassium Chloride 100 ml @ 25 mls/hr UNSCH PRN IV For Potassium 3.3 - 3.5 mEq /L Last administered on 12/22/16 06:32; Start 11/05/16 at 04:45 Potassium Chloride 100 ml @ 50 mls/hr Q2H PRN IV For Potassium 3.3 - 3.5 mEq/L ; Start 11/05/16 at 04:45 Magnesium Sulfate 4 gm/Sodium Chloride 100 ml @ 50 mls/hr UNSCH PRN IV For Magnesium 0.9 - 1.1 mg/dL; Start 11/05/16 at 04:45 Magnesium Oxide (Mag-Ox) 800 mg UNSCH PRN PO For Magnesium 1.2 - 1.6 mg/dL; Start 11/05/16 at 04:45 Magnesium Sulfate 2 gm/Sodium Chloride 100 ml @ 50 mls/hr UNSCH PRN IV For Magnesium 1.2 - 1.6 mg/dL; Start 11/05/16 at 04:45 Potassium Phosphate (K-Phos) 2,000 mg Q4H PRN PO For Phosphorus < 2.5 mg/dL; Start 11/05/16 at 04:45 Sodium Phosphate 30 mmol/Sodium Chloride 250 ml @ 42 mls/hr UNSCH PRN IV For Phosphorus < 2.5 mg/dL Last administered on 12/04/16 09:28; Start 11/05/16 at 04:45 Potassium Phosphate (K-Phos) 2,000 mg UNSCH PRN PO/TUBE SEE LABEL COMMENTS; Start 11/05/16 at 04:45 Potassium Phosphate 30 mmol/ Sodium Chloride 260 ml @ 42 mls/hr UNSCH PRN IV SEE LABEL COMMENTS; Start 11/05/16 at 04:45 Acetazolamide Sodium (Diamox Inj) 500 mg Q8H IV PUSH Last administered on 05:32; Start 11/05/16 at 12:00; Stop 11/06/16 at 04:01; Status DC Insulin Detemir (Levemir Inj) 30 units Q12H SQ Last administered on 11/11/16 23:59; Start 11/05/16 at 13:00; Stop 11/12/16 at 07:25; Status DC Sodium Chloride (NS Flush) See Protocol DAILY IV FLUSH Last administered on 08:20; Start 11/06/16 at 09:00; Stop 11/16/16 at 14:16; Status DC Sodium Chloride (NS Flush) See Protocol UNSCH PRN IV FLUSH SEE PROTOCOL TABLE; Start 11/05/16 at 20:00; Stop 11/16/16 at 14:16; Status DC Heparin Sodium (Porcine) (Heparin Central Flush) See Protocol DAILY IV FLUSH ; Start 11/06/16 at 09:00; Stop 11/16/16 at 14:16; Status DC Heparin Sodium (Porcine) (Heparin Central Flush) See Protocol UNSCH PRN IV FLUSH SEE PROTOCOL TABLE; Start 11/05/16 at 20:00; Stop 11/16/16 at 14:16; Status DC Sodium Chloride (NS Flush) UNSCH PRN IV FLUSH SEE PROTOCOL TABLE; Start at 20:00; Stop 11/16/16 at 14:16; Status DC Diltiazem HCl (Cardizem Inj) 15 mg ONCE ONCE IV PUSH Last administered on 11/06 04:14; Start 11/06/16 at 04:15; Stop 11/06/16 at 04:16; Status DC Diltiazem HCl 125 mg/Sodium Chloride 125 ml @ 5 mls/hr TITRATE PRN IV Tachycardia Last administered on 11/16/16 02:17; Start 11/06/16 at 04:15; Stop 11/16/16 at 12:03; Status DC Albuterol/ Ipratropium (Duoneb Neb) 1 ampule Q6HR NEB NEB Last administered on 11/10/16 15:14; Start 11/06/16 at 16:00; Stop 11/10/16 at 15:59; Status DC Diltiazem HCl (Cardizem) 60 mg Q6HR PO Last administered on 11/15/16 13:11; Start 11/07/16 at 18:00; Stop 11/15/16 at 16:20; Status DC Bumetanide (Bumex Inj) 1 mg Q12H IV PUSH Last administered on 11/09/16 23:56; Start 11/08/16 at 12:00; Stop 11/10/16 at 07:12; Status DC Heparin Sodium/ Dextrose 250 ml @ 10 mls/hr TITRATE PRN IV Coagulation management Last administered on 11/21/16 14:15; Start 11/08/16 at 10:15; Stop 11/22/16 at 06:00; Status DC Piperacillin Sod/ Tazobactam Sod 100 ml @ 200 mls/hr Q6H IV Last administered on 11/11/16 13:30; Start 11/08/16 at 13:00; Stop 11/11/16 at 15:51; Status DC Vancomycin HCl 1250 mg/Sodium Chloride 262.5 ml @ 262.5 mls/ hr ONCE ONCE IV ; Start 11/08/16 at 14:00; Stop 11/08/16 at 14:00; Status DC Pharmacy Profile Note 0 ml @ 0 mls/hr UNSCH OTHER ; Start 11/08/16 at 11:45; Stop 11/10/16 at 09:22; Status DC Vancomycin HCl 2250 mg/Sodium Chloride 522.5 ml @ 257.5 mls/ hr Q24H IV Last administered on 11/09/16 14:13; Start 11/08/16 at 14:00; Stop 11/10/16 at 09:22 ; Status DC Miscellaneous Information SPECIFIC LAB TO BE PREMA... ONCE ONCE .XX ; Start 11/11 at 13:45; Stop 11/11/16 at 13:46; Status Cancel Methylprednisolone Sodium Succinate (SoluMEDROL INJ) 40 mg DAILY IV Last administered on 12/02/16 08:19; Start 11/09/16 at 09:00; Stop 12/03/16 at 09:11 ; Status DC Piperacillin Sod/ Tazobactam Sod 100 ml @ 200 mls/hr Q6H IV ; Start 11/10/16 at 08:00; Stop 11/10/16 at 08:00; Status DC Diltiazem HCl (Cardizem Inj) 20 mg NOW ONCE IV Last administered on 11/11/16 00:24; Start 11/11/16 at 00:15; Stop 11/11/16 at 00:16; Status DC Micafungin Sodium 150 mg/Sodium Chloride 100 ml @ 100 mls/hr Q24H IV ; Start at 01:00; Stop 11/11/16 at 01:00; Status DC Micafungin Sodium 150 mg/Sodium Chloride 100 ml @ 100 mls/hr Q24H IV Last administered on 11/12/16 00:36; Start 11/11/16 at 02:00; Stop 11/12/16 at 17:46 ; Status DC Amiodarone HCl 150 mg/Dextrose 103 ml @ 600 mls/hr Q11M ONCE IV Last administered on 11/11/16 01:41; Start 11/11/16 at 01:18; Stop 11/11/16 at 01:28 ; Status DC Amiodarone HCl 450 mg/Dextrose 250 ml @ 33 mls/hr Q7H35M IV Last administered on 11/11/16 11:01; Start 11/11/16 at 01:28; Stop 11/11/16 at 12:19; Status DC Metoprolol Tartrate (Lopressor) 50 mg Q12HR PO Last administered on 11/11/16 20:05; Start 11/11/16 at 10:00; Stop 11/12/16 at 07:25; Status DC Pharmacy Profile Note 0 ml @ 0 mls/hr UNSCH OTHER ; Start 11/11/16 at 14:00; Stop 11/12/16 at 17:46; Status DC Vancomycin HCl 2000 mg/Sodium Chloride 520 ml @ 250 mls/hr Q12H IV Last administered on 11/12/16 05:04; Start 11/11/16 at 18:00; Stop 11/12/16 at 17:46 ; Status DC Miscellaneous Information SPECIFIC LAB TO BE DRAWN:VANCOMY... ONCE ONCE .XX Last administered on 11/12/16 03:13; Start 11/12/16 at 05:45; Stop 11/12/16 at 05:46; Status DC Piperacillin Sod/ Tazobactam Sod 100 ml @ 200 mls/hr Q6H IV Last administered on 11/12/16 13:07; Start 11/11/16 at 20:00; Stop 11/12/16 at 17:46; Status DC Insulin Detemir (Levemir Inj) 35 units Q12H SQ Last administered on 11/14/16 00:50; Start 11/12/16 at 13:00; Stop 11/14/16 at 06:59; Status DC Metoprolol Tartrate (Lopressor) 50 mg Q8H PO Last administered on 11/16/16 08: 19; Start 11/12/16 at 09:00; Stop 11/16/16 at 12:12; Status DC Sodium Chloride 500 ml @ 500 mls/hr BOLUS ONCE IV Last administered on 07:15; Start 11/12/16 at 07:15; Stop 11/12/16 at 08:14; Status DC Digoxin (Lanoxin Inj) 0.25 mg ONCE ONCE IV PUSH Last administered on 08:00; Start 11/12/16 at 08:00; Stop 11/12/16 at 08:01; Status DC Albuterol/ Ipratropium (Duoneb Neb) 1 ampule Q4HR NEB NEB Last administered on 11/15/16 14:46; Start 11/12/16 at 08:00; Stop 11/15/16 at 16:02; Status DC Amiodarone HCl 150 mg/Dextrose 103 ml @ 600 mls/hr Q11M ONCE IV Last administered on 11/12/16 09:16; Start 11/12/16 at 09:16; Stop 11/12/16 at 09:26 ; Status DC Amiodarone HCl 450 mg/Dextrose 250 ml @ 33 mls/hr Q7H35M IV Last administered on 11/17/16 13:11; Start 11/12/16 at 09:26; Stop 11/18/16 at 08:48; Status DC Ceftriaxone Sodium 2000 mg/ Sodium Chloride 100 ml @ 200 mls/hr Q24H IV Last administered on 11/20/16 18:51; Start 11/12/16 at 18:00; Stop 11/20/16 at 23:55 ; Status DC Fluconazole/ Sodium Chloride 100 ml @ 100 mls/hr Q24H IV Last administered on 11/18/16 20:22; Start 11/12/16 at 20:00; Stop 11/19/16 at 19:59; Status DC Sodium Chloride 1,000 ml @ 999 mls/hr BOLUS ONCE IV Last administered on 11/13 09:08; Start 11/13/16 at 07:45; Stop 11/13/16 at 08:45; Status DC Fentanyl Citrate 250 ml @ 5 mls/hr TITRATE PRN IV SEDATION Last administered on 12/03/16 06:20; Start 11/13/16 at 14:00; Stop 12/03/16 at 09:00; Status DC Insulin Detemir (Levemir Inj) 45 units Q12H SQ Last administered on 11/15/16 13:11; Start 11/14/16 at 13:00; Stop 11/16/16 at 11:55; Status DC Bumetanide (Bumex Inj) 2 mg ONCE ONCE IV PUSH Last administered on 11/14/16 11:09; Start 11/14/16 at 10:45; Stop 11/14/16 at 10:52; Status DC Albuterol/ Ipratropium (Duoneb Neb) 1 ampule Q4HR NEB NEB Last administered on 11/19/16 16:00; Start 11/15/16 at 20:00; Stop 11/19/16 at 19:59; Status DC Hydralazine HCl (Apresoline Inj) 10 mg Q1HR PRN IV PUSH sbp > 160 Last administered on 12/15/16 03:34; Start 11/15/16 at 16:15 Nitroglycerin (Nitroglycerin 2% Oint) 2 inch Q6HR PRN TOPICAL SBP>160, DBP>90; Start 11/15/16 at 16:15; Stop 12/24/16 at 08:50; Status DC Labetalol HCl (Trandate Inj) 10 mg Q1HR PRN IV PUSH SBP>160, DBP>90, HR>65 Last administered on 12/15/16 03:18; Start 11/15/16 at 16:15 Diltiazem HCl (Cardizem) 30 mg Q6HR PO ; Start 11/15/16 at 18:00; Stop 11/15/16 at 18:00; Status DC Diltiazem HCl (Cardizem) 90 mg Q6HR PO Last administered on 01/08/17 13:24; Start 11/15/16 at 18:00; Stop 01/08/17 at 13:58; Status DC Insulin Detemir (Levemir Inj) 55 units Q12H SQ Last administered on 11/17/16 13:00; Start 11/16/16 at 13:00; Stop 11/17/16 at 13:21; Status DC Esmolol HCl/ Sodium Chloride 250 ml @ 44.25 mls/ hr TITRATE PRN IV Blood Pressure Management Last administered on 11/17/16 12:07; Start 11/16/16 at 12: 15; Stop 11/19/16 at 07:48; Status DC Midazolam HCl 100 ml @ 2 mls/hr TITRATE PRN IV SEDATION Last administered on 05:52; Start 11/16/16 at 12:15; Stop 12/03/16 at 09:00; Status DC Metoprolol Tartrate (Lopressor) 50 mg Q6HR PO Last administered on 01/08/17 05:32; Start 11/16/16 at 18:00; Stop 01/08/17 at 13:51; Status DC Famotidine (Pepcid) 20 mg BID NG Last administered on 01/10/17 07:50; Start 11/16/16 at 21:00 Digoxin (Lanoxin Inj) 0.5 mg ONCE ONCE IV PUSH Last administered on 11/16/16 14:27; Start 11/16/16 at 12:30; Stop 11/16/16 at 13:01; Status DC Digoxin (Lanoxin Inj) 0.25 mg ONCE ONCE IV PUSH Last administered on 19:16; Start 11/16/16 at 18:30; Stop 11/16/16 at 18:31; Status DC Sodium Chloride (NS Flush) See Protocol DAILY IV FLUSH Last administered on 08:04; Start 11/17/16 at 09:00; Stop 12/24/16 at 08:50; Status DC Sodium Chloride (NS Flush) See Protocol UNSCH PRN IV FLUSH SEE PROTOCOL TABLE; Start 11/16/16 at 14:30; Stop 12/24/16 at 08:50; Status DC Heparin Sodium (Porcine) (Heparin Central Flush) See Protocol DAILY IV FLUSH Last administered on 12/23/16 08:03; Start 11/17/16 at 09:00; Stop 12/24/16 at 08:50; Status DC Heparin Sodium (Porcine) (Heparin Central Flush) See Protocol UNSCH PRN IV FLUSH SEE PROTOCOL TABLE; Start 11/16/16 at 14:30; Stop 12/24/16 at 08:50; Status DC Sodium Chloride (NS Flush) UNSCH PRN IV FLUSH SEE PROTOCOL TABLE; Start at 14:30; Stop 12/24/16 at 08:50; Status DC Insulin Detemir (Levemir Inj) 75 units Q12H SQ Last administered on 11/18/16 00:17; Start 11/18/16 at 01:00; Stop 11/18/16 at 12:42; Status DC Bumetanide (Bumex Inj) 1 mg ONCE ONCE IV PUSH Last administered on 11/17/16 15:11; Start 11/17/16 at 13:30; Stop 11/17/16 at 13:31; Status DC Amiodarone HCl (Cordarone) 400 mg Q12HR OG-TUBE Last administered on 11/29/16 07:53; Start 11/18/16 at 09:00; Stop 11/30/16 at 11:08; Status DC Clonidine (Catapres) 0.2 mg Q8HR OG-TUBE Last administered on 11/18/16 14:05; Start 11/18/16 at 14:00; Stop 11/18/16 at 21:29; Status DC Calcium Chloride 1 gm/Sodium Chloride 110 ml @ 110 mls/hr ONCE ONCE IV Last administered on 11/18/16 10:27; Start 11/18/16 at 10:00; Stop 11/18/16 at 10:59 ; Status DC Sodium Chloride (Sodium Chloride) 1 gm ONCE ONCE PO Last administered on 14:04; Start 11/18/16 at 10:00; Stop 11/18/16 at 10:01; Status DC Epoprostenol Sodium 87.5 ml/ Sodium Chloride 100 ml @ 8 mls/hr Q8H NEB ; Start 11/18/16 at 09:00; Status Cancel Epoprostenol Sodium 87.5 ml/ Sodium Chloride 100 ml @ 8 mls/hr Q8H NEB Last administered on 11/23/16 07:26; Start 11/18/16 at 09:00; Stop 11/24/16 at 09:59 ; Status DC Digoxin (Lanoxin) 0.125 mg ONCE ONCE PO Last administered on 11/18/16 10:27; Start 11/18/16 at 09:30; Stop 11/18/16 at 09:49; Status DC Digoxin (Lanoxin) 0.125 mg DAILY PO Last administered on 01/10/17 07:50; Start 11/19/16 at 09:00; Status Future hold Insulin Detemir (Levemir Inj) 62 units Q12H SQ Last administered on 11/18/16 13:00; Start 11/18/16 at 13:00; Stop 12/24/16 at 08:50; Status DC Clonidine (Catapres) 0.2 mg Q8HR OG-TUBE Last administered on 12/06/16 05:54 ; Start 11/18/16 at 22:00; Stop 12/06/16 at 10:42; Status DC Diltiazem HCl (Cardizem Inj) 25 mg STK-MED ONCE .ROUTE Last administered on 11:15; Start 11/19/16 at 11:09; Stop 11/19/16 at 11:10; Status DC Diltiazem HCl (Cardizem Inj) 10 mg NOW ONCE IV PUSH ; Start 11/19/16 at 13:15; Stop 11/19/16 at 13:16; Status DC Dextrose (D50w (Vial) Inj) 50 ml UNSCH PRN IV PUSH HYPOGLYCEMIA-SEE COMMENTS Last administered on 12/17/16 04:15; Start 11/20/16 at 07:45 Glucagon (Glucagon Inj) 1 mg UNSCH PRN OTHER HYPOGLYCEMIA-SEE COMMENTS; Start 11/20/16 at 07:45 Insulin Human Regular (NovoLIN R SUPPLEMENTAL SCALE) 1 Q4H SQ ; Start 11/20/16 at 07:45; Stop 11/20/16 at 07:53; Status DC Insulin Human Regular (NovoLIN R SUPPLEMENTAL SCALE) 1 Q4HR SQ Last administered on 12/01/16 20:00; Start 11/20/16 at 08:00; Stop 12/02/16 at 09:36 ; Status DC Digoxin (Lanoxin Inj) 0.25 mg ONCE ONCE IV PUSH Last administered on 12:55; Start 11/21/16 at 12:30; Stop 11/21/16 at 12:31; Status DC Bumetanide (Bumex Inj) 1 mg ONCE ONCE IV PUSH Last administered on 11/22/16 08:04; Start 11/22/16 at 07:30; Stop 11/22/16 at 07:31; Status DC Acetazolamide Sodium (Diamox Inj) 500 mg ONCE ONCE IV PUSH Last administered on 11/22/16 07:55; Start 11/22/16 at 07:30; Stop 11/22/16 at 07:31; Status DC Albuterol/ Ipratropium (Duoneb Neb) 1 ampule Q4HR NEB NEB Last administered on 11/26/16 03:35; Start 11/22/16 at 08:00; Stop 11/26/16 at 07:59; Status DC Rocuronium [place] (Zemuron Inj) 50 mg BOLUS ONCE IV ; Start 11/22/16 at 08:15 ; Stop 11/22/16 at 08:33; Status DC Fentanyl Citrate (fentaNYL INJ) 250 mcg ONCE ONCE IV PUSH ; Start 11/22/16 at 08:15; Stop 11/22/16 at 08:33; Status DC Heparin Sodium/ Dextrose 250 ml @ 10 mls/hr TITRATE IV Last administered on 15:58; Start 11/22/16 at 17:45; Stop 12/10/16 at 12:59; Status DC Heparin Sodium (Porcine) (Heparin Inj) 5,000 units UNSCH PRN IV PUSH aPTT less than 25; Start 11/22/16 at 17:45; Stop 12/10/16 at 12:59; Status DC Heparin Sodium (Porcine) (Heparin Inj) 2,500 units UNSCH PRN IV PUSH aPTT 25 to 39 Last administered on 11/28/16 16:01; Start 11/22/16 at 17:45; Stop 12/10 at 12:59; Status DC Heparin Sodium/ Dextrose 250 ml @ 10 mls/hr TITRATE PRN IV Coagulation management; Start 11/22/16 at 20:15; Status Cancel Bumetanide (Bumex Inj) 1 mg ONCE ONCE IV PUSH Last administered on 11/23/16 07:40; Start 11/23/16 at 07:15; Stop 11/23/16 at 07:29; Status DC Albuterol/ Ipratropium (Duoneb Neb) 1 ampule Q2HR NEB PRN NEB SOB/WHEEZING Last administered on 11/30/16 03:34; Start 11/23/16 at 10:45; Stop 11/30/16 at 11:08; Status DC Lidocaine HCl (Xylocaine 1% Inj (50 ml)) 50 ml STK-MED ONCE .ROUTE ; Start 11/23 at 11:26; Stop 11/23/16 at 11:27; Status DC Vancomycin HCl 1000 mg/Sodium Chloride 250 ml @ 250 mls/hr Q12H IV ; Start at 15:15; Stop 11/23/16 at 16:46; Status DC Pharmacy Profile Note 0 ml @ 0 mls/hr UNSCH OTHER ; Start 11/23/16 at 15:15; Stop 11/26/16 at 14:22; Status DC Piperacillin Sod/ Tazobactam Sod 100 ml @ 200 mls/hr Q6H IV Last administered on 12/12/16 00:47; Start 11/23/16 at 17:00; Stop 12/11/16 at 23:55; Status DC Vancomycin HCl 2000 mg/Sodium Chloride 520 ml @ 250 mls/hr Q12H IV ; Start at 18:00; Stop 11/23/16 at 21:06; Status DC Vancomycin HCl 500 mg/Sodium Chloride 100 ml @ 200 mls/hr ONCE ONCE IV Last administered on 11/23/16 22:00; Start 11/23/16 at 22:00; Stop 11/23/16 at 22:29 ; Status DC Vancomycin HCl 2500 mg/Sodium Chloride 525 ml @ 257.5 mls/ hr Q12H IV Last administered on 11/26/16 08:36; Start 11/24/16 at 09:00; Stop 11/26/16 at 14:22 ; Status DC Miscellaneous Information SPECIFIC LAB TO BE ... ONCE ONCE .XX ; Start 11/25 at 08:45; Stop 11/25/16 at 08:47; Status DC Epoprostenol Sodium 70 ml/ Sodium Chloride 100 ml @ 8 mls/hr Q8H NEB Last administered on 11/24/16 10:36; Start 11/24/16 at 10:00; Stop 11/24/16 at 17:59 ; Status DC Epoprostenol Sodium 52.5 ml/ Sodium Chloride 100 ml @ 8 mls/hr Q8H NEB Last administered on 11/24/16 20:00; Start 11/24/16 at 18:00; Stop 11/25/16 at 01:59 ; Status DC Epoprostenol Sodium 35 ml/ Sodium Chloride 100 ml @ 8 mls/hr Q8H NEB Last administered on 11/25/16 02:02; Start 11/25/16 at 02:00; Stop 11/25/16 at 09:59 ; Status DC Epoprostenol Sodium 17.5 ml/ Sodium Chloride 100 ml @ 8 mls/hr Q8H NEB Last administered on 11/25/16 09:40; Start 11/25/16 at 10:00; Stop 11/25/16 at 17:59 ; Status DC Miscellaneous Information SPECIFIC LAB TO BE DRAWN:VANCOMYCIN TROUGH DATE TO... ONCE ONCE .XX ; Start 11/27/16 at 08:45; Stop 11/27/16 at 08:45; Status DC Bumetanide (Bumex Inj) 1 mg ONCE ONCE IV PUSH Last administered on 11/26/16 08:34; Start 11/26/16 at 08:15; Stop 11/26/16 at 08:16; Status DC Diltiazem HCl (Cardizem Inj) 25 mg STK-MED ONCE .ROUTE Last administered on 10:36; Start 11/26/16 at 10:31; Stop 11/26/16 at 10:32; Status DC Diltiazem HCl (Cardizem Inj) 10 mg NOW ONCE IV PUSH ; Start 11/26/16 at 10:45; Stop 11/26/16 at 10:46; Status DC Bupivacaine HCl/ Epinephrine Bitart (Sensorcaine-Epinephrine Pf 0.5% Inj) 20 ml ONCE ONCE INFIL Last administered on 11/27/16 13:16; Start 11/27/16 at 13:16 ; Stop 11/27/16 at 13:17; Status DC Miscellaneous Information ALL NURSING DEPARTME... UNSCH PRN .XX SEE LABEL COMMENTS; Start 11/27/16 at 18:00; Stop 11/28/16 at 17:59; Status DC Metoprolol Tartrate (Lopressor Inj) 5 mg Q5M PRN IV PUSH TACHYCARDIA > 100 Last administered on 12/15/16t 03:54; Start 11/28/16 at 02:45 Sodium Chloride (Sodium Chloride 0.9% Inj) 20 ml STK-MED ONCE IV ; Start at 13:02; Stop 11/28/16 at 13:05; Status DC Propofol (Diprivan 200 Mg/20 ml Inj) 200 mg STK-MED ONCE IV ; Start 11/23/16 at 13:02; Stop 11/28/16 at 13:05; Status DC Fentanyl Citrate (fentaNYL INJ) 500 mcg STK-MED ONCE IV ; Start 11/23/16 at 13: 02; Stop 11/28/16 at 13:05; Status DC Ondansetron HCl (Zofran Inj) 4 mg STK-MED ONCE IV PUSH ; Start 11/23/16 at 13:02 ; Stop 11/28/16 at 13:05; Status DC Dexamethasone Sodium Phosphate (Decadron Inj) 4 mg STK-MED ONCE IV ; Start 11/23 at 13:02; Stop 11/28/16 at 13:05; Status DC Ketorolac Tromethamine (Toradol Inj) 60 mg STK-MED ONCE IM ; Start 11/23/16 at 13:02; Stop 11/28/16 at 13:05; Status DC Midazolam HCl (Versed Inj) 2 mg STK-MED ONCE IV ; Start 11/23/16 at 13:02; Stop 11/28/16 at 13:05; Status DC Phenylephrine HCl (Neosynephrine/ NS 1000 Mcg/10ml Syr) 1,000 mcg STK-MED ONCE IV Last administered on 11/23/16t 13:02; Start 11/23/16 at 13:02; Stop at 13:05; Status DC Rocuronium [place] (Zemuron Inj) 50 mg STK-MED ONCE IV PUSH ; Start 11/23/16 at 13:02; Stop 11/28/16 at 13:05; Status DC Lidocaine HCl (Xylocaine-Mpf 1% Inj) 5 ml STK-MED ONCE OTHER ; Start 11/23/16 at 13:02; Stop 11/28/16 at 13:05; Status DC Calcium Gluconate 1 gm/Sodium Chloride 110 ml @ 110 mls/hr ONCE ONCE IV Last administered on 11/29/16 09:27; Start 11/29/16 at 09:00; Stop 11/29/16 at 09:59 ; Status DC Nicardipine HCl 25 mg/Sodium Chloride 250 ml @ 50 mls/hr TITRATE PRN IV Blood pressure management Last administered on 11/30/16 13:51; Start 11/30/16 at 11: 15; Stop 12/03/16 at 09:00; Status DC Nitroglycerin/ Dextrose 250 ml @ 1.5 mls/hr TITRATE PRN IV Hypertension; Start 11/30/16 at 11:15; Stop 12/03/16 at 09:00; Status DC Digoxin (Lanoxin Inj) 0.25 mg ONCE ONCE IV PUSH Last administered on 13:58; Start 11/30/16 at 12:15; Stop 11/30/16 at 12:16; Status DC Amiodarone HCl (Cordarone) 200 mg Q12HR OG-TUBE Last administered on 21:23; Start 11/30/16 at 21:00; Stop 12/24/16 at 08:50; Status DC Albuterol/ Ipratropium (Duoneb Neb) 1 ampule Q4HR NEB NEB Last administered on 12/04/16 07:42; Start 11/30/16 at 12:00; Stop 12/04/16 at 11:59; Status DC Albuterol Sulfate (Albuterol Neb) 2.5 mg Q2HR NEB PRN NEB DYSPNEA Last administered on 01/10/17 07:30; Start 11/30/16 at 11:15 Magnesium Sulfate/ Dextrose 100 ml @ 100 mls/hr Q1H IV Last administered on 14:51; Start 11/30/16 at 12:00; Stop 11/30/16 at 13:59; Status DC Iohexol (Omnipaque 350 Inj) 30 ml STK-MED ONCE G-TUBE Last administered on 11/30 13:31; Start 11/30/16 at 13:31; Stop 11/30/16 at 13:32; Status DC Trimethoprim/ Sulfamethoxazole (Bactrim Ds 800-160 Mg) 2 tab Q8HR PO Last administered on 12/11/16 20:19; Start 11/30/16 at 22:00; Stop 12/11/16 at 23: 55; Status DC Magnesium Sulfate/ Dextrose 100 ml @ 100 mls/hr Q1H IV Last administered on 15:37; Start 12/01/16 at 14:00; Stop 12/01/16 at 15:59; Status DC Potassium Phosphate 15 mmol/ Sodium Chloride 155 ml @ 38.75 mls/ hr ONCE ONCE IV Last administered on 12/01/16 18:01; Start 12/01/16 at 14:00; Stop at 17:59; Status DC Calcium Gluconate 1 gm/Sodium Chloride 110 ml @ 110 mls/hr ONCE ONCE IV Last administered on 12/01/16 17:06; Start 12/01/16 at 13:45; Stop 12/01/16 at 14:44 ; Status DC Insulin Detemir (Levemir Inj) 15 units Q12HR SQ Last administered on 20:25; Start 12/01/16 at 21:00; Stop 12/19/16 at 07:31; Status DC Insulin Detemir (Levemir Inj) 10 units NOW ONCE SQ ; Start 12/01/16 at 13:30; Stop 12/01/16 at 13:31; Status DC Insulin Human Regular (NovoLIN R SUPPLEMENTAL SCALE) 1 Q6H SQ ; Start 12/02/16 at 09:45; Status Cancel Insulin Human Regular (NovoLIN R SUPPLEMENTAL SCALE) 1 Q6H SQ Last administered on 01/01/17 08:00; Start 12/02/16 at 14:00 Oxycodone HCl (Roxicodone Intensol Liq) 5 mg Q6H PEG Last administered on 12/06 09:37; Start 12/02/16 at 10:00; Stop 12/06/16 at 11:09; Status DC Fentanyl Citrate (fentaNYL INJ) 50 mcg Q1H PRN IV PUSH PAIN SCALE 5 TO 10 Last administered on 01/10/17 04:50; Start 12/03/16 at 09:00 Prednisone (Deltasone) 20 mg DAILY PO Last administered on 12/23/16 08:05; Start 12/04/16 at 09:00; Stop 12/24/16 at 08:50; Status DC Lisinopril (Prinivil) 10 mg DAILY PO Last administered on 01/10/17 07:50; Start 12/04/16 at 02:45 Fentanyl (Duragesic 50 Mcg Patch.72 Hr) 1 patch Q3D T-DERMAL Last administered on 12/13/16 15:24; Start 12/04/16 at 14:00; Stop 12/15/16 at 13 :11; Status DC Warfarin Sodium (Coumadin) 3 mg DAILY@16 PO Last administered on 12/06/16 17: 05; Start 12/04/16 at 16:00; Stop 12/07/16 at 08:17; Status DC Pharmacy Profile Note 0 ml @ 0 mls/hr UNSCH OTHER ; Start 12/04/16 at 12:15; Stop 12/13/16 at 10:46; Status DC Midazolam HCl (Versed Inj) 2 mg STK-MED ONCE IV ; Start 11/29/16 at 12:00; Stop 12/04/16 at 13:02; Status DC Propofol (Diprivan 200 Mg/20 ml Inj) 200 mg STK-MED ONCE IV ; Start 11/29/16 at 12:00; Stop 12/04/16 at 13:02; Status DC Miscellaneous Information 1 Q3D T-DERMAL Last administered on 01/03/17 14:00; Start 12/07/16 at 14:00 Patient Medication Teaching (Coumadin Booklet) 1 ONCE ONCE OTHER Last administered on 12/04/16 16:42; Start 12/04/16 at 16:00; Stop 12/04/16 at 16 :01; Status DC Albumin Human 100 ml @ 60 mls/hr ONCE ONCE IV Last administered on 22:18; Start 12/04/16 at 22:15; Stop 12/04/16 at 23:54; Status DC Albumin Human 100 ml @ 60 mls/hr ONCE ONCE IV Last administered on 01:07; Start 12/05/16 at 01:15; Stop 12/05/16 at 02:54; Status DC Calcium Gluconate 3 gm/Sodium Chloride 130 ml @ 120 mls/hr ONCE ONCE IV Last administered on 12/05/16 01:25; Start 12/05/16 at 02:00; Stop 12/05/16 at 03 :04; Status DC Warfarin Sodium (Coumadin) 2 mg ONCE ONCE PO Last administered on 12/05/16 16:01; Start 12/05/16 at 16:00; Stop 12/05/16 at 16:01; Status DC Warfarin Sodium (Coumadin) 5 mg ONCE ONCE PO Last administered on 12/06/16 17:05; Start 12/06/16 at 16:00; Stop 12/06/16 at 16:01; Status DC Oxycodone HCl (Roxicodone Intensol Liq) 5 mg Q6H PEG Last administered on 12/19 04:50; Start 12/06/16 at 16:00; Stop 12/24/16 at 08:50; Status DC Warfarin Sodium (Coumadin) 5 mg DAILY@1600 PO Last administered on 12/09/16 16:02; Start 12/07/16 at 16:00; Stop 12/10/16 at 12:59; Status DC Warfarin Sodium (Coumadin) 5 mg ONCE ONCE PO Last administered on 12/07/16 15:11; Start 12/07/16 at 16:00; Stop 12/07/16 at 16:01; Status DC Escitalopram Oxalate (Lexapro) 10 mg HS PO Last administered on 01/09/17 19: 38; Start 12/07/16 at 21:00 Bumetanide (Bumex Inj) 1 mg ONCE ONCE IV PUSH Last administered on 12/07/16 10:29; Start 12/07/16 at 08:45; Stop 12/07/16 at 09:16; Status DC Sodium Chloride (Sodium Chloride) 1 gm Q12HR PO Last administered on 07:49; Start 12/07/16 at 09:00 Warfarin Sodium (Coumadin) 2 mg ONCE@1600 ONCE PO Last administered on 15:46; Start 12/08/16 at 16:00; Stop 12/08/16 at 16:01; Status DC Warfarin Sodium (Coumadin) 5 mg ONCE ONCE PO Last administered on 12/09/16 16:02; Start 12/09/16 at 16:00; Stop 12/09/16 at 16:01; Status DC Alteplase, Recombinant (Cathflo Activase Inj) 2 mg NOW ONCE IV FLUSH Last administered on 12/13/16 11:21; Start 12/13/16 at 08:00; Stop 12/13/16 at 08 :01; Status DC Heparin Sodium (Porcine) (Heparin Inj) 5,000 units Q12HR SQ Last administered on 12/23/16 21:23; Start 12/13/16 at 21:00; Stop 12/24/16 at 09:06; Status DC Metoclopramide HCl (Reglan Inj) 10 mg Q8HR IV Last administered on 12/15/16 22:20; Start 12/14/16 at 14:30; Stop 12/16/16 at 14:28; Status DC Polyethylene Glycol/ Electrolytes (Colyte Liq) 4,000 ml ONCE ONCE PO Last administered on 12/14/16 21:50; Start 12/14/16 at 17:45; Stop 12/14/16 at 17 :51; Status DC Diatrizoate Meglum/ Diatrizoate Sod ( Gastroview Liq) 18 ml ONCE ONCE PO Last administered on 12/15/16 09:30; Start 12/15/16 at 09:30; Stop 12/15/16 at 09:31; Status DC Iohexol (Omnipaque 350 Inj) 75 ml STK-MED ONCE IVCONTRAST Last administered on 12/15/16 10:51; Start 12/15/16 at 10:51; Stop 12/15/16 at 10:59; Status DC Amiodarone HCl (Cordarone Inj) 150 mg STK-MED ONCE .ROUTE ; Start 12/15/16 at 12:08; Stop 12/15/16 at 12:09; Status DC Norepinephrine Bitartrate (Levophed Inj) 4 mg STK-MED ONCE .ROUTE ; Start 12/15 at 13:15; Stop 12/15/16 at 13:16; Status DC Piperacillin Sod/ Tazobactam Sod 100 ml @ 200 mls/hr Q6H IV Last administered on 12/20/16 15:46; Start 12/15/16 at 15:00; Stop 12/20/16 at 15:58; Status DC Levofloxacin/ Dextrose 150 ml @ 100 mls/hr Q24H IV Last administered on 15:11; Start 12/15/16 at 14:00; Stop 12/15/16 at 15:58; Status DC Vancomycin HCl 1250 mg/Sodium Chloride 262.5 ml @ 262.5 mls/ hr ONCE ONCE IV Last administered on 12/15/16 16:00; Start 12/15/16 at 16:00; Stop 12/15/16 at 16:59; Status DC Micafungin Sodium 150 mg/Sodium Chloride 100 ml @ 100 mls/hr Q24H IV Last administered on 12/15/16 17:00; Start 12/15/16 at 17:00; Stop 12/18/16 at 16 :34; Status DC Sodium Chloride 1,000 ml @ 999 mls/hr Q1H1M ONCE IV Last administered on 12/15 20:25; Start 12/15/16 at 20:00; Stop 12/15/16 at 21:00; Status DC Fentanyl Citrate (fentaNYL INJ) 100 mcg ONCE ONCE IV Last administered on 20:22; Start 12/15/16 at 20:00; Stop 12/15/16 at 20:01; Status DC Midazolam HCl (Versed Inj) 2 mg ONCE ONCE IV Last administered on 12/15/16 20:22; Start 12/15/16 at 20:00; Stop 12/15/16 at 20:01; Status DC Metoclopramide HCl (Reglan Inj) 10 mg Q6HR IV Last administered on 12/24/16 06:05; Start 12/16/16 at 18:00; Stop 12/24/16 at 08:50; Status DC Polyethylene Glycol (Miralax) 17 gm DAILY PO Last administered on 12/18/16 09 :09; Start 12/17/16 at 10:15; Stop 12/18/16 at 16:09; Status DC Polyethylene Glycol (Miralax) 34 gm DAILY PO ; Start 12/19/16 at 09:00; Stop 12/20/16 at 17:33; Status DC Insulin Detemir (Levemir Inj) 8 units Q12HR SQ Last administered on 01/06/17 09:00; Start 12/19/16 at 09:00; Stop 01/09/17 at 17:09; Status DC Budesonide (Pulmicort Respule Neb) 0.5 mg Q12HR NEB NEB Last administered on 01/10/17 07:30; Start 12/19/16 at 08:00 Albuterol/ Ipratropium (Duoneb Neb) 1 ampule Q4HR NEB NEB Last administered on 12/23/16 07:24; Start 12/19/16 at 08:00; Stop 12/23/16 at 07:59; Status DC Phenylephrine HCl (Neosynephrine Inj) 10 mg STK-MED ONCE .ROUTE ; Start at 09:19; Stop 12/19/16 at 09:20; Status DC Digoxin (Lanoxin Inj) 0.25 mg ONCE ONCE IV PUSH Last administered on 15:46; Start 12/20/16 at 14:30; Stop 12/20/16 at 14:39; Status DC Potassium Chloride (KCl Powder) 40 meq ONCE ONCE PO ; Start 12/20/16 at 14:30 ; Stop 12/20/16 at 14:39; Status DC Polyethylene Glycol (Miralax) 17 gm DAILY PRN PO MILD CONSTIPATION; Start at 17:30 Propofol 50 ml @ As Directed STK-MED ONCE .ROUTE ; Start 12/22/16 at 14:20; Stop 12/22/16 at 14:21; Status DC Norepinephrine Bitartrate 250 ml @ As Directed STK-MED ONCE IV ; Start at 14:21; Stop 12/22/16 at 14:22; Status DC Amiodarone HCl (Cordarone) 200 mg DAILY OG-TUBE Last administered on 07:50; Start 12/24/16 at 09:00 Prednisone (Deltasone) 10 mg DAILY PO Last administered on 01/01/17 09:17; Start 12/24/16 at 09:00; Stop 01/01/17 at 13:05; Status DC Metoclopramide HCl (Reglan Liq) 10 mg Q8HR PO Last administered on 01/04/17 14:58; Start 12/24/16 at 14:00; Stop 01/04/17 at 15:28; Status DC Enoxaparin Sodium (Lovenox Inj) 40 mg Q24H SQ Last administered on 01/10/17 08:47; Start 12/24/16 at 10:00 Albuterol/ Ipratropium (Duoneb Neb) 1 ampule Q6HR WHILE AWAKE NEB NEB Last administered on 12/31/16 15:28; Start 12/27/16 at 20:00; Stop 12/31/16 at 19:59 ; Status DC Loperamide HCl (Imodium Liq) 2 mg UNSCH PRN PO DIARRHEA; Start 12/28/16 at 15: 45 Lactobacillus Acidophilus (Lactinex) 1 tab Q12HR PO Last administered on 07:49; Start 12/28/16 at 21:00 Acetylcysteine (Mucomyst 20% Neb) 2 ml Q6HR NEB NEB ; Start 12/30/16 at 16:00; Stop 12/30/16 at 20:29; Status DC Acetylcysteine (Mucomyst 20% Neb) 2 ml Q6HR NEB NEB Last administered on 14:41; Start 12/30/16 at 22:00; Stop 01/03/17 at 21:59; Status DC Sodium Hypochlorite (Dakin'S 0.125% Soln) 500 ml BID TOPICAL Last administered on 01/10/17 07:51; Start 12/31/16 at 21:00 Potassium Chloride (KCl) 20 meq ONCE ONCE PO Last administered on 01/01/17 14 :42; Start 01/01/17 at 09:30; Stop 01/01/17 at 09:36; Status DC Prednisone (Deltasone) 7.5 mg DAILY PO Last administered on 01/04/17 09:30; Start 01/02/17 at 09:00; Stop 01/04/17 at 19:28; Status DC Furosemide (Lasix) 20 mg DAILY PO Last administered on 01/10/17 07:50; Start 01/02/17 at 09:00 Potassium Chloride (KCl) 20 meq DAILY PO Last administered on 01/03/17 10:24; Start 01/02/17 at 09:00; Stop 01/04/17 at 15:18; Status DC Miscellaneous (Pill Splitter) 1 ea UNSCH PRN OTHER SEE LABEL COMMENTS; Start 01/01/17 at 14:15 Rocuronium [place] (Zemuron Inj) 50 mg STK-MED ONCE IV PUSH ; Start 11/27/16 at 12:00; Stop 01/03/17 at 08:02; Status DC Vecuronium [place] (Norcuron 20 Mg Inj) 20 mg STK-MED ONCE IV ; Start 11/27/16 at 12:00; Stop 01/03/17 at 08:02; Status DC Parenteral Electrolytes 1,000 ml @ As Directed STK-MED ONCE IV ; Start at 12:00; Stop 01/03/17 at 08:02; Status DC Ceftazidime/ Avibactam 2.5 gm/ Sodium Chloride 50 ml @ 25 mls/hr Q8H IV Last administered on 01/10/17 08:47; Start 01/03/17 at 18:00 Metronidazole 100 ml @ 100 mls/hr Q8H IV Last administered on 01/05/17 01:00 ; Start 01/03/17 at 17:00; Stop 01/05/17 at 11:33; Status DC Potassium Bicarb/ Potassium Chloride (K-Lyte Cl Eff) 25 meq DAILY G-TUBE Last administered on 01/10/17 07:49; Start 01/04/17 at 15:30 Prednisone (Deltasone) 5 mg DAILY PO Last administered on 01/10/17 07:50; Start 01/05/17 at 09:00; Stop 01/11/17 at 08:59 Metoprolol Tartrate (Lopressor) 25 mg Q8HR PO Last administered on 01/09/17 22:19; Start 01/08/17 at 14:00 Diltiazem HCl (Cardizem) 60 mg Q6HR PO Last administered on 01/10/17 04:50; Start 01/08/17 at 18:00 A/P Assessment and Plan Metabolic encephalopathy - resolved. CIM/SHEFALI S/p Neuromuscular paralysis for Prone therapy Syncope Depression MRI C-spine showing increased signals C3-C5 region. Dr Riggins reviewed MRI spine- not sure about increased signal in cord, could be cervical hyperextension injury, from intubation according to him. Unable to do flexion- extension films of the C-spine (trached patient). 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 Patient will need to be on oral medication will DC that now and start Percocet. Haloperidol 5mg iv q4h prn for agitation. Escitalopram 10 mg qhs or depression from 12/07/16. MRI brain 11/26: Small focal signal abnormality in the superior medial left frontal lobe. Could be sequela from prior insult such as a contusion or small infarct. No acute infarct MRI brain 12/[address] on admission revealed no acute intracranial findings, CT brain 11/05- no acute findings. opacification of sinuses. EEG 11/20: No seizure activity. EEG 11/09: severe encephalopathy PT/OT for range of motion, up to stretcher chair as tolerated : Hypotension-resolved Atrial fib/ flutter with RVR - rate controlled.- telemetry in SR Hypertension on amiodarone to 200mg po daily for maintenance dose. digoxin 0.125 mg po daily. recheck level 01/04 and [id number] as long as stable. PO Diltiazem 90 mg PO q6hr- taper down to 60 mg po 6 on metoprolol 50mg Q6 - will decrease dose 25 mg po q8 with borderline SBPs Coumadin and heparin 12/10 held due to left popliteal fossa hematoma. now on lovenox for prophylactic dose since 12/24. given high risk for bleeding complication and low CHADS-VaSC risk, risk/benefit at this time in favor of holding full anticoagulation. Echo 10/25 EF 60-65%. Repeat echo with bubble study: 11/22: No shunt seen Acute, now chronic hypoxemic Respiratory failure s/p trach 11/27 Spontaneous Right sided PTX secondary to barotrauma - resolved. COPD exacerbation - resolved. Pneumonia most likely community-acquired - resolved. Obesity hypoventilation syndrome Tobacco use disorder albuterol aerosols every 2 hours PRN. Ventilator bundle on T piece - on fenestrated- Passimuir Budesonide 0.5 mg/2 mL aerosols twice a day. on Prednisone 10 mg daily continue to wean s/p trach 11/[address] Martin [facility] [facility]. Pulmonary following. appreciate assistance. s/p 20Fr CT placed for right PTX 11/23, monitor CT drainage. d/c chest tube . CT pulmonary angio revealed no pulmonary embolus. Masslike consolidation in the posterior right upper lobe and medial right lower lobe. Lymphadenopathy to 1 cm right hilum and subcarinal. Atelectasis left lower lobe. Discontinued Prone therapy 11/02/16. continue t-piece as tolerated. BiPAP at hs Ileus - resolved.- improved on dignishield Morbid Obesity Elevated LFT's- now within normal. PEG tube placement 11/30. US liver: No ductal dilatation tube feeds with vital high-protein currently at 50 cc/hr. Metoclopramide 10 mg every 6 hours, change to PO.- DC with the diarrhea 01/04 No Cholecystostomy tube recommended by Dr. Nguyen. Recommended advance diet as tolerated Famotidine 20 milligrams mg twice a day for GI prophylaxis Hyponatremia Hypopotassemia Diarrhea: - improved C diff is negative. on lactinex and imodium. Monitor lytes Monitor renal function, I/O's, electrolytes replacement per protocol. Currently on sodium chloride 1 g every 12 hours Hyperglycemia- good readings on current regimen SSI Q6h on Levemer 8 units SQ bid- -not getting it for past 3 days so Levemir was discontinued. and ff blood sugars Normocytic anemia - stable. Leukocytosis L popliteal fossa hematoma - stable. Monitor closely for compartment syndrome Severe sepsis - resolved. HCAP -resolved Leukocytosis Per soaking tank worker, pt has a sacrococcygeal Wound measuring 4cm x 3cm x ~3.2cm. ~ 50% yellow loosely adherent slough is noted at the base, with ~50% pink tissue. I did evaluate the wound. Wound cultures have been obtain. I Add Patel po bid to help with wound healing Sputum: Klebsiella, Stenotrophomonas and Pseudomonas 11/27 Sputum cx 11/23: Kleb, Pseudomonas, s/p (ceftriaxone and fluconazole course). ID is following-Dr. Patel s/p ceftriaxone 11/02-11/09 for Enterobacter pneumonia. Repeat sputum Klebsiella sensitive to Rocephin started on Avicaz 01/03 pending final cultures. Flagyl DC- 01/04 C-diff PCR is negative GI, famotidine. DVT - on lovenox. s/pIV heparin gtt/Coumadin DCd 12/10 due to left popliteal hematoma. Given bleeding complications with low CHADS-VaSC risk, risk/benefit in favor of holding full anticoagulation. 11/09 Doppler US LE negative for DVT Palliative care is following Discharge Planning Transfer ordered already placed for MedSurg but since patient has tracheal needs be close to nursing station. Pending final cultures for final recommendations from infectious disease. Dorene Lubin MD Jan 10, 2017 09:54
[2017-01-10] MEDS: oxyCODONE/ACETAMINOPHEN 5 MG/325 MG TAB PO PRN ×3 (11:14→22:11)
--- NOTE | 2017-01-10 11:15 | HHI.HCPN ---
Reason for visit a. To assist with evaluation and management of symptoms including: pain, dyspnea b. To assist medical decision maker(s) with: better understanding of current medical conditions; weighing benefits/burdens of medical treatment options; making medical treatment decisions. . Subjective/Interval History Pt seen to follow up on goals, comfort. Slowly improving-- pulmonology weaning trach, tolerating trach capped during day , bipap at night. CXR w some improvement . Transfer to regular medical floor ordered, awaiting room near nurses station. Persistent leukocytosis, WBC 116.8. ID cont to follow, now on Avicaz. Sputum from 01/03 + Pseudomonas Aeruginosa, Multi-Drug Resistant Klebsiella Pneumoniae. S/p plastic surgery evaluation-- cont current wound care for now, pt may require debridement and wound vac in the future. ST following, pt tolerating mechanical soft diet, eating well. TF now off as pt taking PO, PEG clamped. Patient seen and examined in ICU, alert watching television. RN at bedside. Oriented to self and hospitalization, able to speak as trach capped. Seems to have reasonable insight and understanding of hospitalization. Aware of trach capping/weaning. Explore hospital course and his preferences RE CPR/ mech vent. He appears to understand- elects to remain FULL CODE. Explore w him HCS in case of his incapacitation; he endorses he would entrust his son and daughters. he indicates he has been in touch w them RE his hospital course/updates. He denies dyspnea. Denies GI complains, says is glad to be eating. Does endorse some generalized pain LUE/ note significant edema BUE, has been keeping up on pillow. . Advance Directives Living Will: Never completed Health Care Surrogate: Never completed Durable Power of Cook [place]ilada: Never completed Advance Directive Specifics Health Care Surrogate(s): Patient appears to be regaining medical decision-making capacity. Patient is single. Has 1 son (Drake Andrews) and 2 daughters (Ira Mcgovern and Krystyna Palma). According to [place] statutes, health care proxy decision-making would fall to the majority of adult children. Krystyna Roth and Drake wish to participate. Review w him HCS designation 01/10; he endorses he would want his 3 children. . Objective Vital Signs Date Time Temp Pulse Resp B/P (MAP) Pulse Ox O2 Delivery O2 Flow Rate FiO2 01/10/17 08:40 98 Nasal Cannula 5.00 01/10/17 08:40 Nasal Cannula 5.00 01/10/17 08:00 98.7 16 123/60 (81) 95 01/10/17 08:00 72 01/10/17 07:30 98 35 01/10/17 07:00 94 T-Piece 40 01/10/17 04:42 96 BiPAP 01/10/17 04:30 96 35 01/10/17 04:00 98.2 69 17 100/56 (71) 97 01/10/17 04:00 69 01/10/17 02:38 18 01/10/17 01:02 97 35 01/10/17 00:00 75 01/10/17 00:00 98.6 75 18 122/58 (79) 96 01/09/17 22:00 90 01/09/17 20:48 96 35 01/09/17 20:00 93 01/09/17 20:00 98.5 93 17 112/58 (76) 94 01/09/17 19:00 95 T-Piece 40 01/09/17 16:00 84 01/09/17 16:00 98.6 84 17 108/68 (81) 93 01/09/17 12:00 82 01/09/17 12:00 98.4 82 20 113/66 (82) 90 Intake & Output 01/10/17 01/10/17 07:00 19:00 Intake Total 50 ml 50 ml Output Total 1100 ml Balance -1050 ml 50 ml IV Total 50 ml 50 ml Output Urine Total 1100 ml Physical Exam CONSTITUTIONAL/GENERAL: This is an overweight male resting in bed in no acute distress. TUBES/LINES/DRAINS: tracheostomy w passy marvin valve, PEG, external catheter, rectal tube. SCDs. SKIN: Multiple areas scattered Ecchymoses on upper extremities, edema BUE. Abrasion/ scab on right knee. . CARDIOVASCULAR: Regular rate and rhythm. No murmur. Edema to bilateral upper, lower extremities. RESPIRATORY/CHEST: trach midline, passy marvin valve. respirations even/ unlabored. Breathing comfortably. Breath sounds coarse with expiratory wheezes left. GASTROINTESTINAL: Abdomen obese, large, round. Bowel sounds present. PEG clamped. GENITOURINARY: Without palpable bladder distension. nurse reapplying external catheter MUSCULOSKELETAL: Extremities with 2-3+ edema. NEUROLOGICAL: Awake , oriented, approp. Speech clear w passy marvin valve. Following commands. moves upper extremities weakly. Moves lower extremities very weakly. PSYCHIATRIC: Awake, calm, no apparent depression/anxiety . Diagnostic Tests Laboratory Laboratory Tests Test 01/08/17 05:55 01/09/17 04:36 01/10/17 04:56 Activated Partial Thromboplast Time 26.2 SEC (24.3-30.1) 23.5 SEC (24.3-30.1) 24.7 SEC (24.3-30.1) Creatinine 0.32 MG/DL (0.60-1.30) Estimat Glomerular Filtration Rate 288 ML/MIN (>89) White Blood Count 16.8 TH/MM3 (4.0-11.0) Red Blood Count 3.14 MIL/MM3 (4.50-5.90) Hemoglobin 9.9 GM/DL (13.0-17.0) Hematocrit 29.2 % (39.0-51.0) Mean Corpuscular Volume 93.0 FL (80.0-100.0) Mean Corpuscular Hemoglobin 31.4 PG (27.0-34.0) Mean Corpuscular Hemoglobin Concent 33.8 % (32.0-36.0) Red Cell Distribution Width 15.9 % (11.6-17.2) Platelet Count 447 TH/MM3 (150-450) Mean Platelet Volume 7.0 FL (7.0-11.0) Result Diagram: 01/10/17 0456 01/09/17 0436 Microbiology Microbiology Date/Time Source Procedure Growth Status 12/14/16 22:15 Blood Peripheral Aerobic Blood Culture - Final NO GROWTH IN 5 DAYS Complete 12/14/16 22:15 Blood Peripheral Anaerobic Blood Culture - Final NO GROWTH IN 5 DAYS Complete 11/08/16 14:15 Stool Stool Stool Occult Blood (TYLER) - Final HEMOCCULT NEGATIVE Complete 01/03/17 18:16 Sputum Endotracheal Gram Stain - Final Complete 01/03/17 18:16 Sputum Culture - Final Pseudomonas Aeruginosa Multi-Drug Resistant Klebsiella Pneumoniae Complete 12/14/16 18:10 Urine Catheterized Urine Urine Culture - Final NO GROWTH IN 48 HOURS. Complete 12/31/16 20:00 Wound Other Gram Stain - Final Complete 12/31/16 20:00 Wound Culture - Final Klebsiella Pneumoniae Pseudomonas Aeruginosa Enterococcus Faecalis Complete Imaging Last Impressions Chest X-Ray 01/05/17 0600 Signed Impressions: Service Date/Time: Thursday, January 05, 2017 04:00 - CONCLUSION: 1. Cardiomegaly and findings of vascular congestion without overt failure. The findings are improved when compared with the prior exam. Diego Callahan MD Lower Extremity Ultrasound 01/01/17 0000 Signed Impressions: Service Date/Time: Sunday, January 01, 2017 13:40 - CONCLUSION: 1. No DVT is identified within either lower extremity. 2. Complex cystic appearing collection in the popliteal fossa and calf region on the left measuring up to 18.6 cm. 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 Jayson Levin MD Chest Ultrasound 12/27/16 0000 Signed Impressions: Service Date/Time: December 19:04 - CONCLUSION: Minimal right pleural effusion and the patient was not marked for thoracentesis. Jhonathan Dietz MD Abdomen X-Ray 12/19/16 0000 Signed Impressions: Service Date/Time: Monday, December 19, 2016 07:55 - CONCLUSION: Mildly dilated loops of small and large bowel characteristic of ileus. Fito Joshua MD Abdomen/Pelvis CT 12/15/16 0000 Signed Impressions: Service Date/Time: Thursday, December 15, 2016 10:50 - CONCLUSION: 1. Distended bowel especially the small bowel and the cecum. This is nonspecific. A transition point is not seen. This could relate to ileus. Oral contrast does extend to the rectum. 2. Bibasilar areas of consolidation at the lung bases. There also is a possible small pneumothorax on the right. The patient does have a right chest tube in place. 3. G-tube. 4. Distended gallbladder. 5. Increased soft tissue density in the left lateral abdominal wall which could be from prior trauma or edema. Jayson Soto MD Cervical Spine MRI 12/03/16 0000 Signed Impressions: Service Date/Time: Saturday, December 03, 2016 13:13 - CONCLUSION: Severely limited exam. I believe there is increased signal in the cervical cord mid C3 to mid C5. Ward Kim MD FACR Brain MRI 12/03/16 0000 Signed Impressions: Service Date/Time: Saturday, December 03, 2016 13:13 - CONCLUSION: 1. There is a small area of abnormal T2 signal in the left frontal cortex this is unchanged from the previous examination dated 11/26/16. This is nonspecific in appearance on the MRI. Differential considerations would be a small area of gliosis versus an old area of contusion. Follow up examination in 6 months to document stability would be warranted. 2. No findings to indicate acute cortical infarction are identified. Román Kim MD Gastrostomy Tube Placement 11/30/16 0000 Signed Impressions: Service Date/Time: Wednesday, November 30, 2016 12:22 - CONCLUSION: Uncomplicated gastrostomy tube placement as above. Jorge Jolly MD Liver Ultrasound 11/09/16 0000 Signed Impressions: Service Date/Time: Wednesday, November 09, 2016 13:58 - CONCLUSION: Sono dense liver without duct dilatation. 4 mm common duct. Ward Kim MD FACR Chest CT 11/06/16 0000 Signed Impressions: Service Date/Time: Sunday, November 06, 2016 11:24 - CONCLUSION: 1. Dense bilateral posterior lower lobe airspace consolidation consistent with aspiration versus less likely pneumonia. 2. Linear consolidation in the right middle lobe consistent with atelectasis versus aspiration. 3. Trace left and small right pleural effusions. 4. Support lines and tubes in good position. 5. Prominent coronary artery calcifications. Nico Vaughan MD Head CT 11/05/16 0000 Signed Impressions: Service Date/Time: Saturday, November 05, 2016 21:43 - CONCLUSION: 1. No acute intracranial abnormalities. Pansinus fluid opacification. Cristofer De Santiago MD Carotid Artery Ultrasound 10/25/16 0000 Signed Impressions: Service Date/Time: September 08:27 - CONCLUSION: Mild to moderate plaque in both carotid systems with less than 40%% diameter stenosis by velocity criteria. Jhonathan Dietz MD CT Angiography 10/25/16 0000 Signed Impressions: Service Date/Time: September 06:12 - CONCLUSION: 1. Negative for pulmonary embolism. 2. There is a fairly large area of masslike consolidation in the medial right lung involving posterior segment right upper lobe and medial aspect of right lower lobe. There is associated right hilar and mediastinal adenopathy measuring up to 2.1 cm. Differential diagnosis includes pneumonia or underlying lung neoplasm. Close followup imaging recommended after treatment for pneumonia, to assess for underlying mass. Cristofer De Santiago MD Procedures * 11/30/16 - PEG tube placement * 11/27/16 - tracheostomy * 11/23/16 - right chest tube placement. * 11/10/16 - ETT replaced. * 11/04/16 - arterial line placement. * 10/25/16 - Intubation and central line placed. . Assessment and Plan Disease Oriented Problem List: (1) Acute respiratory failure (2) ARDS (adult respiratory distress syndrome) (3) COPD (chronic obstructive pulmonary disease) (4) Obesity hypoventilation syndrome (5) Leukocytosis (6) Sepsis (7) Hyperglycemia (8) Morbid obesity (9) Hypertension Symptom Scale: (1) Pain 0-10 Scale: 0 Comment: Denies pain at this time. (2) Dyspnea 0-10 Scale: 0 Comment: stable on T piece Pertinent Non-Medical Issues Psychosocial: notes indicate patient is single. Has one son and 2 daughters. Was living with his son prior to admission. Spiritual: unknown. Legal: Patient appears to be regaining medical decision-making capacity. Patient is single. Has 1 son (Drake Andrews) and 2 daughters (Ira Mcgovern and Krystyna aPlma). According to [place] statutes, health care proxy decision- making would fall to the majority of adult children. Krystyna Roth and Drake wish to participate. Ethical issues impacting care: No ethical issues identified at this time. . . Important Contacts * Ira Mcgovern, daughter/ HCP: [phone] (cell) or [phone] ext. [phone] (work) * Drake Andrews, son/ HCP: [phone] (cell) or [phone] (work) * Krystyna Palma, daughter/ HCP: [phone] * Drake Henry girlfriend: [phone] . . Prognosis Mr. Andrews is an unfortunate 56-year-old male who was admitted with respiratory distress, pneumonia, ARDS with prolonged hospitalization/mechanical ventilation. 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 Slowly improving, transfer out of ICU pending. Patient remains a high risk for further complications, continue decline and . Patient will likely require acute rehabilitation upon discharge. . Code Status: Full Code Plan * MEDICAL DECISION-MAKING: Patient participating in medical decision-making. Has regained capacity, encephalopathy resolved. Patient communicating by mouthing words given tracheostomy. He appears to have a good understanding of his complex medical issues. No advance directives previously completed. Reviewed with patient that as per [place] law, healthcare proxy decision maker falls to the majority of his adult children, for which he has 3. Patient was offered assistance with completion of advance directives and was given the opportunity to appoint a designated healthcare surrogate. Patient indicates he would want his 3 children as HCS should he become incapacitated. * CODE STATUS: Full code. * GOALS OF CARE: Pt able to participate in decision making. Goals aggressive, wishes to remain full code. He is updating his family. * SYMPTOMS: =Dyspnea s/p trach. Underlying COPD, obesity. Pulmonology following, patient tolerating passy marvin in the daytime, Bipap at night time. = Pain, multifactorial given prolonged hospitalization, tracheostomy. Fentanyl 50 mcg PRN available. sparing use. Patient appears comfortable, endorses general pain to LUE. = Debility, myopathy likely secondary to critical illness, neuromuscular blockage and steroid use. PT, OT following, note pt slowly improving. Will likely require acute rehabilitation upon discharge.PT working w pt, tolerating sitting on side of bed x 5 min. financial limitations to discharge planning, as does not have funding for rehab. * Palliative care contact information has been provided to patient and family. * Palliative care will continue to follow-up as needed throughout hospital course to assist with symptom management and clarification of goals. . Time Spent Total Floor Time (mins): 20 (chart review, PE, exam) Meri Damon Jan 10, 2017 11:15
--- NOTE | 2017-01-10 12:01 | HHI.IDPN ---
Subjective Subjective Remarks afebrile WBC slightly up on Tpiece still increased secretions Antibiotics avicaz Allergies: Coded Allergies: No Known Allergies (Unverified , 10/25/16) Objective . Vital Signs Date Time Temp Pulse Resp B/P (MAP) Pulse Ox O2 Delivery O2 Flow Rate FiO2 01/10/17 08:40 98 Nasal Cannula 5.00 01/10/17 08:40 Nasal Cannula 5.00 01/10/17 08:00 98.7 16 123/60 (81) 95 01/10/17 08:00 72 01/10/17 07:30 98 35 01/10/17 07:00 94 T-Piece 40 01/10/17 04:42 96 BiPAP 01/10/17 04:30 96 35 01/10/17 04:00 98.2 69 17 100/56 (71) 97 01/10/17 04:00 69 01/10/17 02:38 18 01/10/17 01:02 97 35 01/10/17 00:00 75 01/10/17 00:00 98.6 75 18 122/58 (79) 96 01/09/17 22:00 90 01/09/17 20:48 96 35 01/09/17 20:00 93 01/09/17 20:00 98.5 93 17 112/58 (76) 94 01/09/17 19:00 95 T-Piece 40 01/09/17 16:00 84 01/09/17 16:00 98.6 84 17 108/68 (81) 93 01/09/17 12:00 82 01/09/17 12:00 98.4 82 20 113/66 (82) 90 01/10/17 01/10/17 01/11/17 15:00 23:00 07:00 Intake Total 50 ml Balance 50 ml IV Total 50 ml . Laboratory Tests Test 01/10/17 04:56 White Blood Count 16.8 TH/MM3 Red Blood Count 3.14 MIL/MM3 Hemoglobin 9.9 GM/DL Hematocrit 29.2 % Mean Corpuscular Volume 93.0 FL Mean Corpuscular Hemoglobin 31.4 PG Mean Corpuscular Hemoglobin Concent 33.8 % Red Cell Distribution Width 15.9 % Platelet Count 447 TH/MM3 Mean Platelet Volume 7.0 FL Laboratory Tests Test 01/09/17 04:36 Creatinine 0.32 MG/DL Estimat Glomerular Filtration Rate 288 ML/MIN Imaging Last Impressions Chest X-Ray 01/05/17 0600 Signed Impressions: Service Date/Time: Thursday, January 05, 2017 04:00 - CONCLUSION: 1. Cardiomegaly and findings of vascular congestion without overt failure. The findings are improved when compared with the prior exam. Diego Callahan MD Lower Extremity Ultrasound 01/01/17 0000 Signed Impressions: Service Date/Time: Sunday, January 01, 2017 13:40 - CONCLUSION: 1. No DVT is identified within either lower extremity. 2. Complex cystic appearing collection in the popliteal fossa and calf region on the left measuring up to 18.6 cm. 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 Jayson Levin MD Chest Ultrasound 12/27/16 0000 Signed Impressions: Service Date/Time: December 19:04 - CONCLUSION: Minimal right pleural effusion and the patient was not marked for thoracentesis. Jhonathan Dietz MD Abdomen X-Ray 12/19/16 0000 Signed Impressions: Service Date/Time: Monday, December 19, 2016 07:55 - CONCLUSION: Mildly dilated loops of small and large bowel characteristic of ileus. Fito Joshua MD Abdomen/Pelvis CT 12/15/16 0000 Signed Impressions: Service Date/Time: Thursday, December 15, 2016 10:50 - CONCLUSION: 1. Distended bowel especially the small bowel and the cecum. This is nonspecific. A transition point is not seen. This could relate to ileus. Oral contrast does extend to the rectum. 2. Bibasilar areas of consolidation at the lung bases. There also is a possible small pneumothorax on the right. The patient does have a right chest tube in place. 3. G-tube. 4. Distended gallbladder. 5. Increased soft tissue density in the left lateral abdominal wall which could be from prior trauma or edema. Jayson Soto MD Cervical Spine MRI 12/03/16 0000 Signed Impressions: Service Date/Time: Saturday, December 03, 2016 13:13 - CONCLUSION: Severely limited exam. I believe there is increased signal in the cervical cord mid C3 to mid C5. Ward Kim MD FACR Brain MRI 12/03/16 0000 Signed Impressions: Service Date/Time: Saturday, December 03, 2016 13:13 - CONCLUSION: 1. There is a small area of abnormal T2 signal in the left frontal cortex this is unchanged from the previous examination dated 11/26/16. This is nonspecific in appearance on the MRI. Differential considerations would be a small area of gliosis versus an old area of contusion. Follow up examination in 6 months to document stability would be warranted. 2. No findings to indicate acute cortical infarction are identified. Román Kim MD Gastrostomy Tube Placement 11/30/16 0000 Signed Impressions: Service Date/Time: Wednesday, November 30, 2016 12:22 - CONCLUSION: Uncomplicated gastrostomy tube placement as above. Jorge Jolly MD Liver Ultrasound 11/09/16 0000 Signed Impressions: Service Date/Time: Wednesday, November 09, 2016 13:58 - CONCLUSION: Sono dense liver without duct dilatation. 4 mm common duct. Ward Kim MD FACR Chest CT 11/06/16 0000 Signed Impressions: Service Date/Time: Sunday, November 06, 2016 11:24 - CONCLUSION: 1. Dense bilateral posterior lower lobe airspace consolidation consistent with aspiration versus less likely pneumonia. 2. Linear consolidation in the right middle lobe consistent with atelectasis versus aspiration. 3. Trace left and small right pleural effusions. 4. Support lines and tubes in good position. 5. Prominent coronary artery calcifications. Nico Vaughan MD Head CT 11/05/16 0000 Signed Impressions: Service Date/Time: Saturday, November 05, 2016 21:43 - CONCLUSION: 1. No acute intracranial abnormalities. Pansinus fluid opacification. Cristofer De Santiago MD Carotid Artery Ultrasound 10/25/16 0000 Signed Impressions: Service Date/Time: September 08:27 - CONCLUSION: Mild to moderate plaque in both carotid systems with less than 40%% diameter stenosis by velocity criteria. Jhonathan Dietz MD CT Angiography 10/25/16 0000 Signed Impressions: Service Date/Time: September 06:12 - CONCLUSION: 1. Negative for pulmonary embolism. 2. There is a fairly large area of masslike consolidation in the medial right lung involving posterior segment right upper lobe and medial aspect of right lower lobe. There is associated right hilar and mediastinal adenopathy measuring up to 2.1 cm. Differential diagnosis includes pneumonia or underlying lung neoplasm. Close followup imaging recommended after treatment for pneumonia, to assess for underlying mass. Cristofer De Santiago MD Physical Exam CONSTITUTIONAL/GENERAL: This is a morbidly obese patient, TUBES/LINES/DRAINS: SKIN: no rash Sacral decub appear clean, + bleeding good granulations no odor NECK: trach in place, using Passimuir valve to talk site OK, small amount of secretions CARDIOVASCULAR: No murmurs, rgular rat, rhythm No JVD. Peripheral pulses symmetric. RESPIRATORY/CHEST: Symmetric, unlabored respirations. coarse BS, scattered rhonchi GASTROINTESTINAL: Abdomen is soft , not distended, not tender , no guarding or rebound. . Bowel sounds present. Dignishiled in place with light brown liquid stool GENITOURINARY: Without palpable bladder distension. MUSCULOSKELETAL: Extremities without clubbing, cyanosis, mild 2+ edema of LUE, trace edema BLE ecchymosis and indurated of L calf, NEUROLOGICAL: awake, alert, communicates and follows commands PSYCHIATRIC: calm Assessment & Plan Remarks PNA, Kleb pneumo - failrly sensitive - PSAE , Stenotrophomonas and Kleb in the sputum ? unclear is Steno malt is a coloniser vs a true pathogen, but improved after Bactrim was introdused ARDS Acute VDRF, tolerating weaning - sp trach, on Tpiece R sided PTX sp CT Abx associated diarrhea, C.diff negative agasin 12/15 Abnormal UA, CANDIDURIA Persiastent leukocytosis and bandemia PNA MDRO Pseudomonas S avicaz, ZErbaxa Sacral decub, doubt infection - looks very clean Diarrhea, abx associated - C.diff negative REC's: fu WBC dc Avicaz will start Zerbaxa x 7 more days to complete 2 weeks for Pseudomonas PNA ( thru 01/16) Mariana Sofia RN, MD Jan 10, 2017 12:01
--- NOTE | 2017-01-10 13:04 | HHI.PR ---
Subjective Remarks Alert and on T Bar at 28 % FIo2 Good output Has less edema of arms and feet Using PM valve. Objective Vital Signs Date Time Temp Pulse Resp B/P (MAP) Pulse Ox O2 Delivery O2 Flow Rate FiO2 01/10/17 12:00 98.4 77 15 94/50 (65) 95 01/10/17 12:00 77 01/10/17 08:40 98 Nasal Cannula 5.00 01/10/17 08:40 Nasal Cannula 5.00 01/10/17 08:00 98.7 16 123/60 (81) 95 01/10/17 08:00 72 01/10/17 07:30 98 35 01/10/17 07:00 94 T-Piece 40 01/10/17 04:42 96 BiPAP 01/10/17 04:30 96 35 01/10/17 04:00 98.2 69 17 100/56 (71) 97 01/10/17 04:00 69 01/10/17 02:38 18 01/10/17 01:02 97 35 01/10/17 00:00 75 01/10/17 00:00 98.6 75 18 122/58 (79) 96 01/09/17 22:00 90 01/09/17 20:48 96 35 01/09/17 20:00 93 01/09/17 20:00 98.5 93 17 112/58 (76) 94 01/09/17 19:00 95 T-Piece 40 01/09/17 16:00 84 01/09/17 16:00 98.6 84 17 108/68 (81) 93 I/O 01/09/17 01/09/17 01/09/17 01/10/17 01/10/17 01/10/17 07:00 15:00 23:00 07:00 15:00 23:00 Intake Total 735 ml 50 ml 1000 ml 100 ml Output Total 700 ml 925 ml 1100 ml Balance 35 ml 50 ml 75 ml -1100 ml 100 ml Intake Oral 420 ml IV Total 50 ml 50 ml 50 ml 100 ml Tube Feeding 565 ml 430 ml Other 120 ml 100 ml Output Urine Total 600 ml 875 ml 1100 ml Stool Total 100 ml 50 ml Result Diagram: 01/10/17 0456 01/09/17 0436 Objective Remarks GENERAL: Obese middle-aged white male who is a alert Has 1 + edema of the extremities. HEENT: Head normocephalic. Pupils are reactive. NECK: Supple. No bruits or thyroid enlargement. No venous distension. CHEST: Equal movements with diminished breath sounds at the bases, with Occ wheeze HEART: The heart sounds are regular. S1 and S2 with no definite murmur. ABDOMEN: Obese, protuberant. No masses, no organomegaly. EXTREMITIES: Mild edema. Decreased peripheral pulses. Reflexes 1+. The patient has some weakness of his lower extremities.and left arm. 1 + edema of all limbs. SKIN: Dry and scaly. Assessment and Plan Assessment and Plan IMPRESSION 1. Resolving respiratory failure. 2. Basilar pneumonia and hypoxemia. 3. COPD and chronic bronchitis. 4. Possible obstructive sleep apnea syndrome. 5. Hypertension. 6. Atrial fibrillation and CHF. 7. Severe sepsis, resolved. Plan : 1. BIPAP 12/5 CM FIO2 25 % at HS 2. Continue Diuretics. 3. Antibiotics per ID 4. T bar and wean FIo2 to25 % daytime 7 am to 7 pm. 5. PT Evaluation.Up with help 6. Duoneb nebs qid. 7. Tube feeds at 55 CC. 8. PM valve as tolerated. Laura Haile MD Jan 10, 2017 13:04
[2017-01-10] MEDS: ESCITALOPRAM OXALATE 10 MG TAB PO SCH (22:09)
[2017-01-11] VITALS (13 sets, daily range): BP systolic 115–141; BP diastolic 59–67; PULSE 66–77; RESP 18–23; TEMP 98.1–98.7; O2SAT 92–98
[2017-01-11] MEDS: DILTIAZEM HCL 60 MG TAB PO SCH ×4 (00:40→18:24)
[2017-01-11] MEDS: INSULIN NovoLIN REGULAR SUPPLEMENTAL SCALE SQ SCH ×4 (02:00→20:00)
[2017-01-11] MEDS: CEFTOLOZANE-TAZOBACTAM INJ 1,500 MG in SODIUM CHLORIDE 0.9% INJ 100 ML IV SCH ×3 (02:15→18:24)
[2017-01-11] MEDS: oxyCODONE/ACETAMINOPHEN 5 MG/325 MG TAB PO PRN ×4 (03:51→22:06)
[2017-01-11] MEDS: CHLORHEXIDINE GLUCONATE 2 % 1 PACK (2 CLOTHS) TOP SCH (04:00)
[2017-01-11] MEDS: METOPROLOL TARTRATE 25 MG TAB PO SCH ×3 (05:47→22:06)
[2017-01-11 06:18] LABS: APTT (PATIENT) 24.5 SEC (24.3-30.1)
[2017-01-11] MEDS: RESP: BUDESONIDE 0.5 MG/2 ML NEB NEB SCH ×2 (07:38→19:14)
[2017-01-11] MEDS: FAMOTIDINE 20 MG TAB NG SCH ×2 (07:48→22:07)
[2017-01-11] MEDS: FUROSEMIDE 20 MG TAB PO SCH (07:49)
[2017-01-11] MEDS: AMIODARONE 200 MG TAB OG-TUBE SCH (07:49)
[2017-01-11] MEDS: LISINOPRIL 10 MG TAB PO SCH (07:49)
[2017-01-11] MEDS: SODIUM CHLORIDE 1 GRAM TAB PO SCH ×2 (07:49→22:06)
[2017-01-11] MEDS: DIGOXIN 0.125 MG TAB PO SCH (07:50)
[2017-01-11] MEDS: POTASSIUM CHLORIDE 25 MEQ EFFERVESCENT TAB G-TUBE SCH (07:50)
[2017-01-11] MEDS: LACTOBACILLUS ACIDOPHILUS TAB PO SCH ×2 (07:50→22:06)
[2017-01-11] MEDS: SODIUM HYPOCHLORITE 0.125% 500 ML BTL TOPICAL SCH ×2 (07:51→21:00)
[2017-01-11] MEDS: SODIUM CHLORIDE 0.9% FLUSH 10 ML FLUSH IVF SCH (09:00)
[2017-01-11] MEDS: ARTIFICIAL TEARS OPTH OINT 3.5 APPLIC/3.5 GM TUBO EACH EYE SCH ×3 (09:00→21:00)
[2017-01-11] MEDS: ENOXAPARIN SODIUM 40 MG/0.4 ML SYRINGE SQ SCH (09:42)
[2017-01-11] MEDS: CHLORHEXIDINE 0.12% (ORAL KIT) 15 ML CUP MT SCH ×2 (09:44→20:00)
--- NOTE | 2017-01-11 14:04 | HHI.PR ---
Subjective Remarks Follow-up for multiple medical conditions assessment and plan Patient had no complaints. Deny any shortness of breathing, cough, chest pain or any type pain. I asked him in regards to the forms that his family members wanted me to sign yesterday he said a copy was given to her nurse. I spoke with nurse yesterday and asked him to place it in the chart acute case management this was not done. Patient stated that is in regards to power of attorney lawyer. I told patient that this is usually done by a geodetic survey director not by the medical physician. He stated that they asked for a physician signature. As patient to bring another copy in for me to review this. Discussed case with case management. Patient remains afebrile. Objective Vitals Vital Signs Date Time Temp Pulse Resp B/P (MAP) Pulse Ox O2 Delivery O2 Flow Rate FiO2 01/11/17 12:46 98.7 75 23 115/59 (77) 96 01/11/17 08:00 98.3 66 18 123/63 (83) 98 01/11/17 07:44 95 Trach Collar 6.00 35 01/11/17 05:25 19 01/11/17 04:50 98.1 72 20 117/61 (79) 96 01/11/17 04:28 96 35 01/11/17 01:14 Bi-Pap 01/11/17 00:39 73 01/11/17 00:20 96 35 01/10/17 23:45 98.9 72 20 120/68 (85) 93 01/10/17 22:00 72 01/10/17 20:00 99.0 82 16 136/78 (97) 98 01/10/17 20:00 82 01/10/17 20:00 96 T-Piece 40 01/10/17 19:43 92 Trach Collar 5.00 40 01/10/17 16:00 87 01/10/17 16:00 98.6 87 16 119/62 (81) 95 I/O 01/10/17 01/10/17 01/10/17 01/11/17 01/11/17 01/11/17 07:00 15:00 23:00 07:00 15:00 23:00 Intake Total 100 ml 775 ml 100 ml Output Total 1100 ml 1175 ml 550 ml Balance -1100 ml 100 ml -400 ml -450 ml Intake Oral 600 ml 0 ml IV Total 100 ml 75 ml 100 ml Other 100 ml Output Urine Total 1100 ml 1125 ml 450 ml Stool Total 50 ml 100 ml Result Diagram: 01/10/17 0456 01/11/17 0549 Objective Remarks Gen: in NAD sitting in bed comfortably NECK: t piece in place Resp: CTA B/L CV: regular rhythm abdomen: soft, nontender extremities: tr edema, good peripheral pulses sacral decubitus: - stage 4- deep, edges, clean , no foul, no bleeding 01/06 exam bilateral infragluteal area/posterior aspect of the thigh - linear open wounds edges clean, left greater than right 01/07 exam MSK moves all extremities spontaneously condom catheter Medications and IVs Current Medications Sodium Chloride (NS Flush) 2 ml UNSCH PRN IVF FLUSH AFTER USING IV ACCESS; Start 10/25/16 at 04:00; Stop 10/25/16 at 05:31; Status DC Sodium Chloride 1,000 ml @ 999 mls/hr BOLUS ONCE IV Last administered on 10/25 04:12; Start 10/25/16 at 04:00; Stop 10/25/16 at 05:00; Status DC Magnesium Sulfate/ Dextrose 100 ml @ 100 mls/hr ONCE ONCE IV Last administered on 10/25/16 04:19; Start 10/25/16 at 04:00; Stop 10/25/16 at 04:59 ; Status DC Methylprednisolone Sodium Succinate (SoluMEDROL INJ) 125 mg ONCE ONCE IVP Last administered on 10/25/16 04:12; Start 10/25/16 at 04:00; Stop 10/25/16 at 04:01; Status DC Albuterol/ Ipratropium (Duoneb Neb) 1 ampule Q15M INH Last administered on 10/25 04:00; Start 10/25/16 at 04:00; Stop 10/25/16 at 04:31; Status DC Ondansetron HCl (Zofran Inj) 4 mg ONCE ONCE IV PUSH Last administered on 04:12; Start 10/25/16 at 04:00; Stop 10/25/16 at 04:01; Status DC Sodium Chloride 1,000 ml @ 999 mls/hr BOLUS ONCE IV Last administered on 10/25 05:30; Start 10/25/16 at 05:00; Stop 10/25/16 at 06:00; Status DC Vancomycin HCl 2050 mg/Sodium Chloride 520.5 ml @ 250 mls/hr ONCE ONCE IV Last administered on 10/25/16 08:05; Start 10/25/16 at 05:00; Stop 10/25/16 at 07:04; Status DC Piperacillin Sod/ Tazobactam Sod 50 ml @ 100 mls/hr ONCE ONCE IV Last administered on 10/25/16 05:30; Start 10/25/16 at 05:00; Stop 10/25/16 at 05:29 ; Status DC Amlodipine Besylate (Norvasc) 5 mg HS PO Last administered on 11/03/16 21:36; Start 10/25/16 at 21:00; Stop 11/04/16 at 11:58; Status DC Lisinopril (Prinivil) 20 mg HS PO Last administered on 10/27/16 20:03; Start at 21:00; Stop 10/28/16 at 08:31; Status DC Sodium Chloride (NS Flush) 2 ml UNSCH PRN .XX FLUSH AFTER USING IV ACCESS Last administered on 11/29/16 04:16; Start 10/25/16 at 05:30; Stop 12/24/16 at 08: 50; Status DC Sodium Chloride (NS Flush) 2 ml BID .XX Last administered on 12/23/16 21:24; Start 10/25/16 at 09:00; Stop 12/24/16 at 08:50; Status DC Acetaminophen (Tylenol) 650 mg Q6H PRN PO FEVER >101F Last administered on 11/23 13:20; Start 10/25/16 at 05:30 Famotidine (Pepcid) 20 mg Q12HR PO Last administered on 10/25/16 21:08; Start 10/25/16 at 09:00; Stop 10/26/16 at 08:21; Status DC Ondansetron HCl (Zofran Inj) 4 mg Q6H PRN IV NAUSEA OR VOMITING; Start at 05:30 Zolpidem Tartrate (Ambien) 5 mg HS PRN PO INSOMNIA; Start 10/25/16 at 05:30; Stop 10/25/16 at 14:09; Status DC Albuterol/ Ipratropium (Duoneb Neb) 1 ampule Q4HR NEB INH Last administered on 10/28/16 07:57; Start 10/25/16 at 08:00; Stop 10/28/16 at 08:31; Status DC Albuterol/ Ipratropium (Duoneb Neb) 1 ampule Q2HR NEB PRN INH WHEEZING; Start 10/25/16 at 05:30; Stop 10/25/16 at 12:21; Status DC Enoxaparin Sodium (Lovenox Inj) 40 mg Q24H SQ Last administered on 10/26/16 05: 06; Start 10/25/16 at 06:00; Stop 10/26/16 at 08:21; Status DC Miscellaneous Information 1 [id number] Last administered on 10/25/16 21:10; Start 10/25/16 at 05:30 Chlorhexidine Gluconate (Chlorhexidine 2% Cloth) 3 pack Taper DAILY@04 TOP Last administered on 01/10/17 04:00; Start 10/26/16 at 04:00; Stop 10/22/17 at 03:59 Chlorhexidine Gluconate (Chlorhexidine 2% Cloth) 3 pack UNSCH PRN TOP HYGIENIC CARE; Start 10/25/16 at 05:30 Senna/Docusate Sodium (Olga-Colace) 1 tab BID PO Last administered on 10/27/16 08:21; Start 10/25/16 at 09:00; Stop 10/27/16 at 12:32; Status DC Magnesium Hydroxide (Milk Of Magnesia Liq) 30 ml Q12H PRN PO MILD - MODERATE CONSTIPATION Last administered on 10/26/16 20:52; Start 10/25/16 at 05:30 Sennosides (Senokot) 17.2 mg Q12H PRN PO MODERATE - SEVERE CONSTIPATION Last administered on 12/11/16 02:44; Start 10/25/16 at 05:30 Bisacodyl (Dulcolax Supp) 10 mg DAILY PRN RECTAL SEVERE CONSITIPATION; Start at 05:30 Lactulose (Lactulose Liq) 30 ml DAILY PRN PO SEVERE CONSITIPATION; Start at 05:30 Piperacillin Sod/ Tazobactam Sod 100 ml @ 200 mls/hr Q6H IV Last administered on 11/02/16 11:37; Start 10/25/16 at 11:00; Stop 11/02/16 at 12:45; Status DC Azithromycin 500 mg/Sodium Chloride 250 ml @ 250 mls/hr Q24H IV Last administered on 11/02/16 05:04; Start 10/25/16 at 06:00; Stop 11/02/16 at 12:45; Status DC Methylprednisolone Sodium Succinate (SoluMEDROL INJ) 40 mg Q6H IV Last administered on 10/25/16 09:27; Start 10/25/16 at 10:00; Stop 10/25/16 at 13:45 ; Status DC Iohexol (Omnipaque 350 Inj) 75 ml STK-MED ONCE IVCONTRAST Last administered on 10/25/16 06:30; Start 10/25/16 at 06:30; Stop 10/25/16 at 06:31; Status DC Albuterol Sulfate (Albuterol Neb) 2.5 mg Q2HR NEB PRN NEB DYSPNEA Last administered on 11/22/16 03:15; Start 10/25/16 at 14:00; Stop 11/23/16 at 10:42 ; Status DC Budesonide (Pulmicort Respule Neb) 0.5 mg Q12HR NEB NEB Last administered on 12/17/16 07:18; Start 10/25/16 at 20:00; Stop 12/17/16 at 11:38; Status DC Sodium Chloride (Sodium Chloride 3% Neb) 2 ml Q4HR NEB NEB Last administered on 10/30/16 16:17; Start 10/25/16 at 16:00; Stop 10/30/16 at 15:59; Status DC Etomidate (Amidate Inj) 40 mg STK-MED ONCE .ROUTE ; Start 10/25/16 at 13:17; Stop 10/25/16 at 13:18; Status DC Rocuronium Alton (Zemuron Inj) 100 mg STK-MED ONCE .ROUTE Last administered on 10/25/16 13:47; Start 10/25/16 at 13:17; Stop 10/25/16 at 13:18; Status DC Etomidate (Amidate Inj) 40 mg ONCE ONCE IV PUSH ; Start 10/25/16 at 13:30; Stop 10/25/16 at 13:41; Status DC Rocuronium [place] (Zemuron Inj) 100 mg BOLUS ONCE IV Last administered on 13:30; Start 10/25/16 at 13:30; Stop 10/25/16 at 13:40; Status DC Chlorhexidine Gluconate (Peridex 0.12% Liq) 15 ml BID@08,20 MT Last administered on 01/11/17 09:44; Start 10/25/16 at 20:00 Propofol 100 ml @ 4.08 mls/hr TITRATE PRN IV SEDATION Last administered on 10/26 06:45; Start 10/25/16 at 13:30; Stop 10/26/16 at 08:16; Status DC Fentanyl Citrate 250 ml @ 5 mls/hr TITRATE PRN IV SEDATION Last administered on 11/07/16 23:20; Start 10/25/16 at 13:30; Stop 11/08/16 at 10:13; Status DC Sodium Chloride 1,000 ml @ 100 mls/hr Q10H IV Last administered on 10/27/16 15 :25; Start 10/25/16 at 13:30; Stop 10/27/16 at 16:28; Status DC Methylprednisolone Sodium Succinate (SoluMEDROL INJ) 60 mg Q6H IV Last administered on 10/28/16 05:10; Start 10/25/16 at 16:00; Stop 10/28/16 at 08:31; Status DC Dextrose (D50w (Vial) Inj) 50 ml UNSCH PRN IV HYPOGLYCEMIA-SEE COMMENTS; Start 10/25/16 at 14:15; Stop 11/20/16 at 07:52; Status DC Glucagon (Glucagon Inj) 1 mg UNSCH PRN OTHER HYPOGLYCEMIA-SEE COMMENTS; Start 10/25/16 at 14:15; Stop 11/20/16 at 07:52; Status DC Insulin Human Regular (NovoLIN R SUPPLEMENTAL SCALE) 1 Q6HR SQ Last administered on 11/03/16 12:00; Start 10/25/16 at 18:00; Stop 11/03/16 at 16:01; Status DC Potassium Chloride 100 ml @ 25 mls/hr Q2H IV ; Start 10/25/16 at 18:00; Stop at 21:59; Status DC Cisatracurium Besylate 100 mg/ Sodium Chloride 260 ml @ 21.21 mls/ hr TITRATE PRN IV TOF / Last administered on 10/26/16 02:50; Start 10/25/16 at 18:00; Stop 10/26/16 at 08:14; Status DC Midazolam HCl 100 ml @ 2 mls/hr TITRATE PRN IV SEDATION Last administered on 03:47; Start 10/25/16 at 16:15; Stop 11/03/16 at 13:00; Status DC Sodium Chloride (NS Flush) DAILY IVF Last administered on 01/10/17 07:51; Start 10/26/16 at 09:00 Sodium Chloride (NS Flush) UNSCH PRN IVF SEE PROTOCOL Last administered on 21:42; Start 10/25/16 at 16:45 Epoprostenol Sodium 87.5 ml/ Sodium Chloride 100 ml @ 8 mls/hr Q8H NEB Last administered on 10/27/16 08:20; Start 10/25/16 at 18:00; Stop 10/27/16 at 08:42; Status DC Protein (Beneprotein Powder) 2 pack TID G-TUBE Last administered on 11/12/16 18:00; Start 10/26/16 at 09:00; Stop 11/13/16 at 07:48; Status DC Cisatracurium Besylate 100 mg/ Sodium Chloride 250 ml @ 23.47 mls/ hr TITRATE PRN IV TOF goal Last administered on 11/02/16 07:10; Start 10/26/16 at 08:15; Stop 11/02/16 at 12:52; Status DC Propofol 100 ml @ 4.695 mls/ hr TITRATE PRN IV SEDATION Last administered on 12/03/16 07:47; Start 10/26/16 at 08:30; Stop 12/03/16 at 09:00; Status DC Enoxaparin Sodium (Lovenox Inj) 40 mg Q12HR SQ Last administered on 11/08/16 08:36; Start 10/26/16 at 21:00; Stop 11/08/16 at 10:13; Status DC Potassium Phosphate 15 mmol/ Sodium Chloride 155 ml @ 38.75 mls/ hr ONCE ONCE IV Last administered on 10/26/16 09:19; Start 10/26/16 at 08:45; Stop 10/26/16 at 12:44; Status DC Calcium Gluconate 1 gm/Dextrose 110 ml @ 110 mls/hr ONCE ONCE IV Last administered on 10/26/16 09:00; Start 10/26/16 at 09:00; Stop 10/26/16 at 09:59; Status DC Famotidine (Pepcid Inj) 20 mg Q12H IV PUSH Last administered on 11/16/16 08:19 ; Start 10/26/16 at 09:00; Stop 11/16/16 at 12:12; Status DC Artificial Tears (Lacrilube Opht Oint) 1 applic Q12HR EACH EYE Last administered on 01/10/17 07:51; Start 10/26/16 at 10:00 Epoprostenol Sodium 70 ml/ Sodium Chloride 100 ml @ 8 mls/hr Q8H NEB Last administered on 10/28/16 02:28; Start 10/27/16 at 16:00; Stop 10/28/16 at 09:12; Status DC Docusate Sodium (Colace Liq) 100 mg Q12HR PO Last administered on 11/09/16 21: 03; Start 10/27/16 at 21:00; Stop 11/10/16 at 09:22; Status DC Sennosides (Senna Liq) 8.8 mg BID PEG Last administered on 11/09/16 21:05; Start 10/27/16 at 21:00; Stop 11/10/16 at 09:22; Status DC Polyethylene Glycol (Miralax) 17 gm BID NG Last administered on 11/09/16 21:05 ; Start 10/27/16 at 21:00; Stop 11/10/16 at 09:22; Status DC Lactulose (Lactulose Liq) 30 ml QID PO Last administered on 11/09/16 17:39; Start 10/27/16 at 13:00; Stop 11/10/16 at 09:02; Status DC Sodium Phosphate 15 mmol/Sodium Chloride 155 ml @ 38.75 mls/ hr ONCE ONCE IV Last administered on 10/27/16 14:00; Start 10/27/16 at 14:00; Stop 10/27/16 at 17: 59; Status DC Furosemide (Lasix Inj) 40 mg ONCE ONCE IV PUSH Last administered on 10/27/16 13:54; Start 10/27/16 at 13:00; Stop 10/27/16 at 13:01; Status DC Calcium Gluconate (Calcium Gluconate Inj) 1 gm ONCE ONCE SLOW IVP Last administered on 10/28/16 07:40; Start 10/28/16 at 06:45; Stop 10/28/16 at 06:46; Status DC Insulin Human Regular (NovoLIN R INJ) 10 units ONCE ONCE IV PUSH Last administered on 10/28/16 07:38; Start 10/28/16 at 06:45; Stop 10/28/16 at 06:46; Status DC Dextrose (D50w (Vial) Inj) 50 ml ONCE ONCE IV PUSH Last administered on 07:38; Start 10/28/16 at 06:45; Stop 10/28/16 at 06:46; Status DC Sodium Bicarbonate (Sodium Bicarbonate 8.4% Inj) 50 meq ONCE ONCE SLOW IVP Last administered on 10/28/16 07:38; Start 10/28/16 at 06:45; Stop 10/28/16 at 06: 46; Status DC Sodium Polystyrene Sulfonate (Kayexalate Liq) 15 gm ONCE ONCE NG Last administered on 10/28/16 07:40; Start 10/28/16 at 06:45; Stop 10/28/16 at 06:46; Status DC Albuterol Sulfate (Albuterol Neb) 2.5 mg ONCE ONCE NEB Last administered on 06:53; Start 10/28/16 at 06:45; Stop 10/28/16 at 06:46; Status DC Albuterol/ Ipratropium (Duoneb Neb) 1 ampule Q4HR NEB INH Last administered on 11/01/16 11:21; Start 10/28/16 at 12:00; Stop 11/01/16 at 11:59; Status DC Methylprednisolone Sodium Succinate (SoluMEDROL INJ) 60 mg Q8HR IV Last administered on 10/31/16 05:08; Start 10/28/16 at 14:00; Stop 10/31/16 at 09:14; Status DC Hydralazine HCl (Apresoline) 25 mg Q8HR PO Last administered on 11/12/16 05:04 ; Start 10/28/16 at 14:00; Stop 11/12/16 at 07:25; Status DC Isosorbide Dinitrate (Isordil) 10 mg Q8HR PO Last administered on 11/23/16 05: 27; Start 10/28/16 at 14:00; Stop 12/24/16 at 08:50; Status DC Acetazolamide Sodium (Diamox Inj) 250 mg ONCE ONCE IV PUSH Last administered on 10/28/16 09:02; Start 10/28/16 at 09:00; Stop 10/28/16 at 09:08; Status DC Epoprostenol Sodium 87.5 ml/ Sodium Chloride 100 ml @ 8 mls/hr Q8H NEB Last administered on 10/31/16 04:32; Start 10/28/16 at 10:00; Stop 10/31/16 at 09:52; Status DC Methylnaltrexone Alton (Relistor Inj) 12 mg ONCE ONCE SQ Last administered on 10/28/16 10:49; Start 10/28/16 at 10:00; Stop 10/28/16 at 10:01; Status DC Mineral Oil (Kondremul Liq) 30 ml ONCE ONCE PO ; Start 10/28/16 at 09:15; Stop 10/28/16 at 09:16; Status Cancel Mineral Oil (Mineral Oil Liq) 30 ml ONCE ONCE PO Last administered on 10:50; Start 10/28/16 at 11:00; Stop 10/28/16 at 11:01; Status DC Bumetanide (Bumex Inj) 1 mg Q8H IV PUSH Last administered on 11/02/16 12:19; Start 10/29/16 at 13:00; Stop 11/02/16 at 12:51; Status DC Acetazolamide Sodium (Diamox Inj) 500 mg DAILY IV PUSH Last administered on 10/30 08:30; Start 10/29/16 at 12:45; Stop 10/31/16 at 08:59; Status DC Linezolid 300 ml @ 300 mls/hr Q12H IV Last administered on 11/10/16 14:02; Start 10/29/16 at 14:00; Stop 11/11/16 at 00:10; Status DC Hydralazine HCl (Apresoline Inj) 20 mg Q4H PRN IV PUSH SBP>160, DBP>90 Last administered on 11/04/16 12:04; Start 10/30/16 at 23:45; Stop 11/15/16 at 16:07 ; Status DC Methylprednisolone Sodium Succinate (SoluMEDROL INJ) 40 mg Q8HR IV Last administered on 11/02/16 05:04; Start 10/31/16 at 14:00; Stop 11/02/16 at 12:53; Status DC Epoprostenol Sodium 52.5 ml/ Sodium Chloride 100 ml @ 8 mls/hr Q8H NEB Last administered on 10/31/16 11:18; Start 10/31/16 at 10:00; Stop 10/31/16 at 17:59; Status DC Epoprostenol Sodium 35 ml/ Sodium Chloride 100 ml @ 8 mls/hr Q8H NEB ; Start 10/31/16 at 18:00; Stop 11/01/16 at 01:59; Status DC Epoprostenol Sodium 17.5 ml/ Sodium Chloride 100 ml @ 8 mls/hr Q8H NEB Last administered on 10/31/16 23:28; Start 11/01/16 at 02:00; Stop 11/01/16 at 10:00; Status DC Insulin Detemir (Levemir Inj) 15 units Q12H SQ Last administered on 11/02/16 12 :19; Start 11/01/16 at 13:00; Stop 11/02/16 at 12:52; Status DC Albuterol/ Ipratropium (Duoneb Neb) 1 ampule Q6HR NEB NEB Last administered on 11/06/16 08:33; Start 11/02/16 at 12:45; Stop 11/06/16 at 10:52; Status DC Ceftriaxone Sodium 2000 mg/ Sodium Chloride 100 ml @ 200 mls/hr Q24H IV Last administered on 11/09/16 14:16; Start 11/02/16 at 14:00; Stop 11/09/16 at 17:22 ; Status DC Bumetanide (Bumex Inj) 1 mg Q12H IV PUSH Last administered on 11/04/16 12:22; Start 11/02/16 at 13:00; Stop 11/04/16 at 13:00; Status DC Insulin Detemir (Levemir Inj) 20 units Q12H SQ Last administered on 11/05/16 00:23; Start 11/02/16 at 13:00; Stop 11/05/16 at 11:10; Status DC Methylprednisolone Sodium Succinate (SoluMEDROL INJ) 40 mg Q12HR IV Last administered on 11/08/16 20:33; Start 11/02/16 at 21:00; Stop 11/09/16 at 08:07 ; Status DC Oxycodone HCl (Roxicodone Intensol Liq) 10 mg Q4H PO Last administered on 06:35; Start 11/03/16 at 15:00; Stop 11/08/16 at 10:13; Status DC Haloperidol Lactate (Haldol Inj) 5 mg Q4H PRN IV PUSH agitation Last administered on 12/31/16 23:19; Start 11/03/16 at 13:00 Quetiapine Fumarate (SEROquel) 100 mg Q8HR PO Last administered on 11/08/16 05 :37; Start 11/03/16 at 15:00; Stop 11/08/16 at 10:13; Status DC Labetalol HCl (Trandate Inj) 20 mg Q15M PRN IV PUSH sbp > 160 Last administered on 11/30/16 09:39; Start 11/03/16 at 13:00; Stop 12/02/16 at 09:58 ; Status DC Hydralazine HCl (Apresoline Inj) 10 mg Q30M PRN IV PUSH sbp > 160 Last administered on 11/06/16 02:25; Start 11/03/16 at 13:00; Stop 11/15/16 at 16:07 ; Status DC Clonidine (Catapres) 0.2 mg Q8HR PO Last administered on 11/04/16 05:11; Start 11/03/16 at 15:00; Stop 11/04/16 at 11:59; Status DC Acetazolamide Sodium (Diamox Inj) 500 mg Q8H IV PUSH Last administered on 07:12; Start 11/03/16 at 15:00; Stop 11/04/16 at 07:01; Status DC Dextrose (D50w (Vial) Inj) 25 ml UNSCH PRN IV PUSH HYPOGLYCEMIA-SEE COMMENTS; Start 11/03/16 at 13:00; Stop 11/20/16 at 07:52; Status DC Insulin Human Regular (NovoLIN R SUPPLEMENTAL SCALE) 1 Q4HR SQ Last administered on 11/19/16 20:00; Start 11/03/16 at 16:00; Stop 11/20/16 at 07:40 ; Status DC Bumetanide (Bumex Inj) 1 mg Q8H IV PUSH Last administered on 11/08/16 05:38; Start 11/04/16 at 20:00; Stop 11/08/16 at 10:09; Status DC Acetazolamide Sodium (Diamox Inj) 500 mg Q8H IV PUSH Last administered on 06:11; Start 11/04/16 at 15:00; Stop 11/05/16 at 07:01; Status DC Amlodipine Besylate (Norvasc) 10 mg DAILY PO Last administered on 11/07/16 08: 00; Start 11/04/16 at 13:00; Stop 11/07/16 at 15:19; Status DC Clonidine (Catapres) 0.3 mg Q8HR PO Last administered on 11/18/16 04:58; Start 11/04/16 at 14:00; Stop 11/18/16 at 08:49; Status DC Nicardipine HCl 25 mg/Sodium Chloride 260 ml @ 52 mls/hr TITRATE PRN IV Blood pressure management; Start 11/04/16 at 12:00; Stop 11/16/16 at 12:12; Status DC Propranolol HCl (Inderal) 40 mg Q8HR PO Last administered on 11/11/16 05:15; Start 11/04/16 at 14:00; Stop 11/11/16 at 09:35; Status DC Alteplase, Recombinant (Cathflo Activase Inj) 2 mg NOW ONCE IV FLUSH Last administered on 11/04/16 21:49; Start 11/04/16 at 20:45; Stop 11/04/16 at 20:46 ; Status DC Alteplase, Recombinant (Cathflo Activase Inj) 2 mg NOW ONCE IV FLUSH ; Start at 21:00; Stop 11/04/16 at 21:01; Status DC Potassium Chloride 100 ml @ 50 mls/hr Q2H PRN IV For Potassium 2.8 - 3.2 mEq/ L Last administered on 11/29/16 09:27; Start 11/05/16 at 04:45; Stop 01/11/17 at 12:32; Status DC Potassium Chloride 100 ml @ 50 mls/hr Q2H PRN IV For Potassium 2.8 - 3.2 mEq/ L Last administered on 11/24/16 13:18; Start 11/05/16 at 04:45; Stop 01/11/17 at 12:32; Status DC Potassium Bicarb/ Potassium Chloride (K-Lyte Cl Eff) 50 meq UNSCH PRN PO For Potassium 3.3 - 3.5 mEq/L Last administered on 12/20/16 09:57; Start 11/05/16 at 04:45; Stop 01/11/17 at 12:32; Status DC Potassium Chloride 100 ml @ 25 mls/hr UNSCH PRN IV For Potassium 3.3 - 3.5 mEq /L Last administered on 12/22/16 06:32; Start 11/05/16 at 04:45; Stop at 12:32; Status DC Potassium Chloride 100 ml @ 50 mls/hr Q2H PRN IV For Potassium 3.3 - 3.5 mEq/L ; Start 11/05/16 at 04:45; Stop 01/11/17 at 12:32; Status DC Magnesium Sulfate 4 gm/Sodium Chloride 100 ml @ 50 mls/hr UNSCH PRN IV For Magnesium 0.9 - 1.1 mg/dL; Start 11/05/16 at 04:45; Stop 01/11/17 at 12:32; Status DC Magnesium Oxide (Mag-Ox) 800 mg UNSCH PRN PO For Magnesium 1.2 - 1.6 mg/dL; Start 11/05/16 at 04:45; Stop 01/11/17 at 12:32; Status DC Magnesium Sulfate 2 gm/Sodium Chloride 100 ml @ 50 mls/hr UNSCH PRN IV For Magnesium 1.2 - 1.6 mg/dL; Start 11/05/16 at 04:45; Stop 01/11/17 at 12:32; Status DC Potassium Phosphate (K-Phos) 2,000 mg Q4H PRN PO For Phosphorus < 2.5 mg/dL; Start 11/05/16 at 04:45; Stop 01/11/17 at 12:32; Status DC Sodium Phosphate 30 mmol/Sodium Chloride 250 ml @ 42 mls/hr UNSCH PRN IV For Phosphorus < 2.5 mg/dL Last administered on 12/04/16 09:28; Start 11/05/16 at 04:45; Stop 01/11/17 at 12:32; Status DC Potassium Phosphate (K-Phos) 2,000 mg UNSCH PRN PO/TUBE SEE LABEL COMMENTS; Start 11/05/16 at 04:45; Stop 01/11/17 at 12:32; Status DC Potassium Phosphate 30 mmol/ Sodium Chloride 260 ml @ 42 mls/hr UNSCH PRN IV SEE LABEL COMMENTS; Start 11/05/16 at 04:45; Stop 01/11/17 at 12:32; Status DC Acetazolamide Sodium (Diamox Inj) 500 mg Q8H IV PUSH Last administered on 05:32; Start 11/05/16 at 12:00; Stop 11/06/16 at 04:01; Status DC Insulin Detemir (Levemir Inj) 30 units Q12H SQ Last administered on 11/11/16 23:59; Start 11/05/16 at 13:00; Stop 11/12/16 at 07:25; Status DC Sodium Chloride (NS Flush) See Protocol DAILY IV FLUSH Last administered on 08:20; Start 11/06/16 at 09:00; Stop 11/16/16 at 14:16; Status DC Sodium Chloride (NS Flush) See Protocol UNSCH PRN IV FLUSH SEE PROTOCOL TABLE; Start 11/05/16 at 20:00; Stop 11/16/16 at 14:16; Status DC Heparin Sodium (Porcine) (Heparin Central Flush) See Protocol DAILY IV FLUSH ; Start 11/06/16 at 09:00; Stop 11/16/16 at 14:16; Status DC Heparin Sodium (Porcine) (Heparin Central Flush) See Protocol UNSCH PRN IV FLUSH SEE PROTOCOL TABLE; Start 11/05/16 at 20:00; Stop 11/16/16 at 14:16; Status DC Sodium Chloride (NS Flush) UNSCH PRN IV FLUSH SEE PROTOCOL TABLE; Start at 20:00; Stop 11/16/16 at 14:16; Status DC Diltiazem HCl (Cardizem Inj) 15 mg ONCE ONCE IV PUSH Last administered on 11/06 04:14; Start 11/06/16 at 04:15; Stop 11/06/16 at 04:16; Status DC Diltiazem HCl 125 mg/Sodium Chloride 125 ml @ 5 mls/hr TITRATE PRN IV Tachycardia Last administered on 11/16/16 02:17; Start 11/06/16 at 04:15; Stop 11/16/16 at 12:03; Status DC Albuterol/ Ipratropium (Duoneb Neb) 1 ampule Q6HR NEB NEB Last administered on 11/10/16 15:14; Start 11/06/16 at 16:00; Stop 11/10/16 at 15:59; Status DC Diltiazem HCl (Cardizem) 60 mg Q6HR PO Last administered on 11/15/16 13:11; Start 11/07/16 at 18:00; Stop 11/15/16 at 16:20; Status DC Bumetanide (Bumex Inj) 1 mg Q12H IV PUSH Last administered on 11/09/16 23:56; Start 11/08/16 at 12:00; Stop 11/10/16 at 07:12; Status DC Heparin Sodium/ Dextrose 250 ml @ 10 mls/hr TITRATE PRN IV Coagulation management Last administered on 11/21/16 14:15; Start 11/08/16 at 10:15; Stop 11/22/16 at 06:00; Status DC Piperacillin Sod/ Tazobactam Sod 100 ml @ 200 mls/hr Q6H IV Last administered on 11/11/16 13:30; Start 11/08/16 at 13:00; Stop 11/11/16 at 15:51; Status DC Vancomycin HCl 1250 mg/Sodium Chloride 262.5 ml @ 262.5 mls/ hr ONCE ONCE IV ; Start 11/08/16 at 14:00; Stop 11/08/16 at 14:00; Status DC Pharmacy Profile Note 0 ml @ 0 mls/hr UNSCH OTHER ; Start 11/08/16 at 11:45; Stop 11/10/16 at 09:22; Status DC Vancomycin HCl 2250 mg/Sodium Chloride 522.5 ml @ 257.5 mls/ hr Q24H IV Last administered on 11/09/16 14:13; Start 11/08/16 at 14:00; Stop 11/10/16 at 09:22 ; Status DC Miscellaneous Information SPECIFIC LAB TO BE ... ONCE ONCE .XX ; Start 11/11 at 13:45; Stop 11/11/16 at 13:46; Status Cancel Methylprednisolone Sodium Succinate (SoluMEDROL INJ) 40 mg DAILY IV Last administered on 12/02/16 08:19; Start 11/09/16 at 09:00; Stop 12/03/16 at 09:11 ; Status DC Piperacillin Sod/ Tazobactam Sod 100 ml @ 200 mls/hr Q6H IV ; Start 11/10/16 at 08:00; Stop 11/10/16 at 08:00; Status DC Diltiazem HCl (Cardizem Inj) 20 mg NOW ONCE IV Last administered on 11/11/16 00:24; Start 11/11/16 at 00:15; Stop 11/11/16 at 00:16; Status DC Micafungin Sodium 150 mg/Sodium Chloride 100 ml @ 100 mls/hr Q24H IV ; Start at 01:00; Stop 11/11/16 at 01:00; Status DC Micafungin Sodium 150 mg/Sodium Chloride 100 ml @ 100 mls/hr Q24H IV Last administered on 11/12/16 00:36; Start 11/11/16 at 02:00; Stop 11/12/16 at 17:46 ; Status DC Amiodarone HCl 150 mg/Dextrose 103 ml @ 600 mls/hr Q11M ONCE IV Last administered on 11/11/16 01:41; Start 11/11/16 at 01:18; Stop 11/11/16 at 01:28 ; Status DC Amiodarone HCl 450 mg/Dextrose 250 ml @ 33 mls/hr Q7H35M IV Last administered on 11/11/16 11:01; Start 11/11/16 at 01:28; Stop 11/11/16 at 12:19; Status DC Metoprolol Tartrate (Lopressor) 50 mg Q12HR PO Last administered on 11/11/16 20:05; Start 11/11/16 at 10:00; Stop 11/12/16 at 07:25; Status DC Pharmacy Profile Note 0 ml @ 0 mls/hr UNSCH OTHER ; Start 11/11/16 at 14:00; Stop 11/12/16 at 17:46; Status DC Vancomycin HCl 2000 mg/Sodium Chloride 520 ml @ 250 mls/hr Q12H IV Last administered on 11/12/16 05:04; Start 11/11/16 at 18:00; Stop 11/12/16 at 17:46 ; Status DC Miscellaneous Information SPECIFIC LAB TO BE DRAWN:VANCOMY... ONCE ONCE .XX Last administered on 11/12/16 03:13; Start 11/12/16 at 05:45; Stop 11/12/16 at 05:46; Status DC Piperacillin Sod/ Tazobactam Sod 100 ml @ 200 mls/hr Q6H IV Last administered on 11/12/16 13:07; Start 11/11/16 at 20:00; Stop 11/12/16 at 17:46; Status DC Insulin Detemir (Levemir Inj) 35 units Q12H SQ Last administered on 11/14/16 00:50; Start 11/12/16 at 13:00; Stop 11/14/16 at 06:59; Status DC Metoprolol Tartrate (Lopressor) 50 mg Q8H PO Last administered on 11/16/16 08: 19; Start 11/12/16 at 09:00; Stop 11/16/16 at 12:12; Status DC Sodium Chloride 500 ml @ 500 mls/hr BOLUS ONCE IV Last administered on 07:15; Start 11/12/16 at 07:15; Stop 11/12/16 at 08:14; Status DC Digoxin (Lanoxin Inj) 0.25 mg ONCE ONCE IV PUSH Last administered on 08:00; Start 11/12/16 at 08:00; Stop 11/12/16 at 08:01; Status DC Albuterol/ Ipratropium (Duoneb Neb) 1 ampule Q4HR NEB NEB Last administered on 11/15/16 14:46; Start 11/12/16 at 08:00; Stop 11/15/16 at 16:02; Status DC Amiodarone HCl 150 mg/Dextrose 103 ml @ 600 mls/hr Q11M ONCE IV Last administered on 11/12/16 09:16; Start 11/12/16 at 09:16; Stop 11/12/16 at 09:26 ; Status DC Amiodarone HCl 450 mg/Dextrose 250 ml @ 33 mls/hr Q7H35M IV Last administered on 11/17/16 13:11; Start 11/12/16 at 09:26; Stop 11/18/16 at 08:48; Status DC Ceftriaxone Sodium 2000 mg/ Sodium Chloride 100 ml @ 200 mls/hr Q24H IV Last administered on 11/20/16 18:51; Start 11/12/16 at 18:00; Stop 11/20/16 at 23:55 ; Status DC Fluconazole/ Sodium Chloride 100 ml @ 100 mls/hr Q24H IV Last administered on 11/18/16 20:22; Start 11/12/16 at 20:00; Stop 11/19/16 at 19:59; Status DC Sodium Chloride 1,000 ml @ 999 mls/hr BOLUS ONCE IV Last administered on 11/13 09:08; Start 11/13/16 at 07:45; Stop 11/13/16 at 08:45; Status DC Fentanyl Citrate 250 ml @ 5 mls/hr TITRATE PRN IV SEDATION Last administered on 12/03/16 06:20; Start 11/13/16 at 14:00; Stop 12/03/16 at 09:00; Status DC Insulin Detemir (Levemir Inj) 45 units Q12H SQ Last administered on 11/15/16 13:11; Start 11/14/16 at 13:00; Stop 11/16/16 at 11:55; Status DC Bumetanide (Bumex Inj) 2 mg ONCE ONCE IV PUSH Last administered on 11/14/16 11:09; Start 11/14/16 at 10:45; Stop 11/14/16 at 10:52; Status DC Albuterol/ Ipratropium (Duoneb Neb) 1 ampule Q4HR NEB NEB Last administered on 11/19/16 16:00; Start 11/15/16 at 20:00; Stop 11/19/16 at 19:59; Status DC Hydralazine HCl (Apresoline Inj) 10 mg Q1HR PRN IV PUSH sbp > 160 Last administered on 12/15/16 03:34; Start 11/15/16 at 16:15 Nitroglycerin (Nitroglycerin 2% Oint) 2 inch Q6HR PRN TOPICAL SBP>160, DBP>90; Start 11/15/16 at 16:15; Stop 12/24/16 at 08:50; Status DC Labetalol HCl (Trandate Inj) 10 mg Q1HR PRN IV PUSH SBP>160, DBP>90, HR>65 Last administered on 12/15/16 03:18; Start 11/15/16 at 16:15 Diltiazem HCl (Cardizem) 30 mg Q6HR PO ; Start 11/15/16 at 18:00; Stop 11/15/16 at 18:00; Status DC Diltiazem HCl (Cardizem) 90 mg Q6HR PO Last administered on 01/08/17 13:24; Start 11/15/16 at 18:00; Stop 01/08/17 at 13:58; Status DC Insulin Detemir (Levemir Inj) 55 units Q12H SQ Last administered on 11/17/16 13:00; Start 11/16/16 at 13:00; Stop 11/17/16 at 13:21; Status DC Esmolol HCl/ Sodium Chloride 250 ml @ 44.25 mls/ hr TITRATE PRN IV Blood Pressure Management Last administered on 11/17/16 12:07; Start 11/16/16 at 12: 15; Stop 11/19/16 at 07:48; Status DC Midazolam HCl 100 ml @ 2 mls/hr TITRATE PRN IV SEDATION Last administered on 05:52; Start 11/16/16 at 12:15; Stop 12/03/16 at 09:00; Status DC Metoprolol Tartrate (Lopressor) 50 mg Q6HR PO Last administered on 01/08/17 05:32; Start 11/16/16 at 18:00; Stop 01/08/17 at 13:51; Status DC Famotidine (Pepcid) 20 mg BID NG Last administered on 01/11/17 07:48; Start 11/16/16 at 21:00 Digoxin (Lanoxin Inj) 0.5 mg ONCE ONCE IV PUSH Last administered on 11/16/16 14:27; Start 11/16/16 at 12:30; Stop 11/16/16 at 13:01; Status DC Digoxin (Lanoxin Inj) 0.25 mg ONCE ONCE IV PUSH Last administered on 19:16; Start 11/16/16 at 18:30; Stop 11/16/16 at 18:31; Status DC Sodium Chloride (NS Flush) See Protocol DAILY IV FLUSH Last administered on 08:04; Start 11/17/16 at 09:00; Stop 12/24/16 at 08:50; Status DC Sodium Chloride (NS Flush) See Protocol UNSCH PRN IV FLUSH SEE PROTOCOL TABLE; Start 11/16/16 at 14:30; Stop 12/24/16 at 08:50; Status DC Heparin Sodium (Porcine) (Heparin Central Flush) See Protocol DAILY IV FLUSH Last administered on 12/23/16 08:03; Start 11/17/16 at 09:00; Stop 12/24/16 at 08:50; Status DC Heparin Sodium (Porcine) (Heparin Central Flush) See Protocol UNSCH PRN IV FLUSH SEE PROTOCOL TABLE; Start 11/16/16 at 14:30; Stop 12/24/16 at 08:50; Status DC Sodium Chloride (NS Flush) UNSCH PRN IV FLUSH SEE PROTOCOL TABLE; Start at 14:30; Stop 12/24/16 at 08:50; Status DC Insulin Detemir (Levemir Inj) 75 units Q12H SQ Last administered on 11/18/16 00:17; Start 11/18/16 at 01:00; Stop 11/18/16 at 12:42; Status DC Bumetanide (Bumex Inj) 1 mg ONCE ONCE IV PUSH Last administered on 11/17/16 15:11; Start 11/17/16 at 13:30; Stop 11/17/16 at 13:31; Status DC Amiodarone HCl (Cordarone) 400 mg Q12HR OG-TUBE Last administered on 11/29/16 07:53; Start 11/18/16 at 09:00; Stop 11/30/16 at 11:08; Status DC Clonidine (Catapres) 0.2 mg Q8HR OG-TUBE Last administered on 11/18/16 14:05; Start 11/18/16 at 14:00; Stop 11/18/16 at 21:29; Status DC Calcium Chloride 1 gm/Sodium Chloride 110 ml @ 110 mls/hr ONCE ONCE IV Last administered on 11/18/16 10:27; Start 11/18/16 at 10:00; Stop 11/18/16 at 10:59 ; Status DC Sodium Chloride (Sodium Chloride) 1 gm ONCE ONCE PO Last administered on 14:04; Start 11/18/16 at 10:00; Stop 11/18/16 at 10:01; Status DC Epoprostenol Sodium 87.5 ml/ Sodium Chloride 100 ml @ 8 mls/hr Q8H NEB ; Start 11/18/16 at 09:00; Status Cancel Epoprostenol Sodium 87.5 ml/ Sodium Chloride 100 ml @ 8 mls/hr Q8H NEB Last administered on 11/23/16 07:26; Start 11/18/16 at 09:00; Stop 11/24/16 at 09:59 ; Status DC Digoxin (Lanoxin) 0.125 mg ONCE ONCE PO Last administered on 11/18/16 10:27; Start 11/18/16 at 09:30; Stop 11/18/16 at 09:49; Status DC Digoxin (Lanoxin) 0.125 mg DAILY PO Last administered on 01/11/17 07:50; Start 11/19/16 at 09:00; Status Future hold Insulin Detemir (Levemir Inj) 62 units Q12H SQ Last administered on 11/18/16 13:00; Start 11/18/16 at 13:00; Stop 12/24/16 at 08:50; Status DC Clonidine (Catapres) 0.2 mg Q8HR OG-TUBE Last administered on 12/06/16 05:54 ; Start 11/18/16 at 22:00; Stop 12/06/16 at 10:42; Status DC Diltiazem HCl (Cardizem Inj) 25 mg STK-MED ONCE .ROUTE Last administered on 11:15; Start 11/19/16 at 11:09; Stop 11/19/16 at 11:10; Status DC Diltiazem HCl (Cardizem Inj) 10 mg NOW ONCE IV PUSH ; Start 11/19/16 at 13:15; Stop 11/19/16 at 13:16; Status DC Dextrose (D50w (Vial) Inj) 50 ml UNSCH PRN IV PUSH HYPOGLYCEMIA-SEE COMMENTS Last administered on 12/17/16 04:15; Start 11/20/16 at 07:45 Glucagon (Glucagon Inj) 1 mg UNSCH PRN OTHER HYPOGLYCEMIA-SEE COMMENTS; Start 11/20/16 at 07:45 Insulin Human Regular (NovoLIN R SUPPLEMENTAL SCALE) 1 Q4H SQ ; Start 11/20/16 at 07:45; Stop 11/20/16 at 07:53; Status DC Insulin Human Regular (NovoLIN R SUPPLEMENTAL SCALE) 1 Q4HR SQ Last administered on 12/01/16 20:00; Start 11/20/16 at 08:00; Stop 12/02/16 at 09:36 ; Status DC Digoxin (Lanoxin Inj) 0.25 mg ONCE ONCE IV PUSH Last administered on 12:55; Start 11/21/16 at 12:30; Stop 11/21/16 at 12:31; Status DC Bumetanide (Bumex Inj) 1 mg ONCE ONCE IV PUSH Last administered on 11/22/16 08:04; Start 11/22/16 at 07:30; Stop 11/22/16 at 07:31; Status DC Acetazolamide Sodium (Diamox Inj) 500 mg ONCE ONCE IV PUSH Last administered on 11/22/16 07:55; Start 11/22/16 at 07:30; Stop 11/22/16 at 07:31; Status DC Albuterol/ Ipratropium (Duoneb Neb) 1 ampule Q4HR NEB NEB Last administered on 11/26/16 03:35; Start 11/22/16 at 08:00; Stop 11/26/16 at 07:59; Status DC Rocuronium [place] (Zemuron Inj) 50 mg BOLUS ONCE IV ; Start 11/22/16 at 08:15 ; Stop 11/22/16 at 08:33; Status DC Fentanyl Citrate (fentaNYL INJ) 250 mcg ONCE ONCE IV PUSH ; Start 11/22/16 at 08:15; Stop 11/22/16 at 08:33; Status DC Heparin Sodium/ Dextrose 250 ml @ 10 mls/hr TITRATE IV Last administered on 15:58; Start 11/22/16 at 17:45; Stop 12/10/16 at 12:59; Status DC Heparin Sodium (Porcine) (Heparin Inj) 5,000 units UNSCH PRN IV PUSH aPTT less than 25; Start 11/22/16 at 17:45; Stop 12/10/16 at 12:59; Status DC Heparin Sodium (Porcine) (Heparin Inj) 2,500 units UNSCH PRN IV PUSH aPTT 25 to 39 Last administered on 11/28/16 16:01; Start 11/22/16 at 17:45; Stop 12/10 at 12:59; Status DC Heparin Sodium/ Dextrose 250 ml @ 10 mls/hr TITRATE PRN IV Coagulation management; Start 11/22/16 at 20:15; Status Cancel Bumetanide (Bumex Inj) 1 mg ONCE ONCE IV PUSH Last administered on 11/23/16 07:40; Start 11/23/16 at 07:15; Stop 11/23/16 at 07:29; Status DC Albuterol/ Ipratropium (Duoneb Neb) 1 ampule Q2HR NEB PRN NEB SOB/WHEEZING Last administered on 11/30/16 03:34; Start 11/23/16 at 10:45; Stop 11/30/16 at 11:08; Status DC Lidocaine HCl (Xylocaine 1% Inj (50 ml)) 50 ml STK-MED ONCE .ROUTE ; Start 11/23 at 11:26; Stop 11/23/16 at 11:27; Status DC Vancomycin HCl 1000 mg/Sodium Chloride 250 ml @ 250 mls/hr Q12H IV ; Start at 15:15; Stop 11/23/16 at 16:46; Status DC Pharmacy Profile Note 0 ml @ 0 mls/hr UNSCH OTHER ; Start 11/23/16 at 15:15; Stop 11/26/16 at 14:22; Status DC Piperacillin Sod/ Tazobactam Sod 100 ml @ 200 mls/hr Q6H IV Last administered on 12/12/16 00:47; Start 11/23/16 at 17:00; Stop 12/11/16 at 23:55; Status DC Vancomycin HCl 2000 mg/Sodium Chloride 520 ml @ 250 mls/hr Q12H IV ; Start at 18:00; Stop 11/23/16 at 21:06; Status DC Vancomycin HCl 500 mg/Sodium Chloride 100 ml @ 200 mls/hr ONCE ONCE IV Last administered on 11/23/16 22:00; Start 11/23/16 at 22:00; Stop 11/23/16 at 22:29 ; Status DC Vancomycin HCl 2500 mg/Sodium Chloride 525 ml @ 257.5 mls/ hr Q12H IV Last administered on 11/26/16 08:36; Start 11/24/16 at 09:00; Stop 11/26/16 at 14:22 ; Status DC Miscellaneous Information SPECIFIC LAB TO BE PREMA... ONCE ONCE .XX ; Start 11/25 at 08:45; Stop 11/25/16 at 08:47; Status DC Epoprostenol Sodium 70 ml/ Sodium Chloride 100 ml @ 8 mls/hr Q8H NEB Last administered on 11/24/16 10:36; Start 11/24/16 at 10:00; Stop 11/24/16 at 17:59 ; Status DC Epoprostenol Sodium 52.5 ml/ Sodium Chloride 100 ml @ 8 mls/hr Q8H NEB Last administered on 11/24/16 20:00; Start 11/24/16 at 18:00; Stop 11/25/16 at 01:59 ; Status DC Epoprostenol Sodium 35 ml/ Sodium Chloride 100 ml @ 8 mls/hr Q8H NEB Last administered on 11/25/16 02:02; Start 11/25/16 at 02:00; Stop 11/25/16 at 09:59 ; Status DC Epoprostenol Sodium 17.5 ml/ Sodium Chloride 100 ml @ 8 mls/hr Q8H NEB Last administered on 11/25/16 09:40; Start 11/25/16 at 10:00; Stop 11/25/16 at 17:59 ; Status DC Miscellaneous Information SPECIFIC LAB TO BE DRAWN:VANCOMYCIN TROUGH DATE TO... ONCE ONCE .XX ; Start 11/27/16 at 08:45; Stop 11/27/16 at 08:45; Status DC Bumetanide (Bumex Inj) 1 mg ONCE ONCE IV PUSH Last administered on 11/26/16 08:34; Start 11/26/16 at 08:15; Stop 11/26/16 at 08:16; Status DC Diltiazem HCl (Cardizem Inj) 25 mg STK-MED ONCE .ROUTE Last administered on 10:36; Start 11/26/16 at 10:31; Stop 11/26/16 at 10:32; Status DC Diltiazem HCl (Cardizem Inj) 10 mg NOW ONCE IV PUSH ; Start 11/26/16 at 10:45; Stop 11/26/16 at 10:46; Status DC Bupivacaine HCl/ Epinephrine Bitart (Sensorcaine-Epinephrine Pf 0.5% Inj) 20 ml ONCE ONCE INFIL Last administered on 11/27/16 13:16; Start 11/27/16 at 13:16 ; Stop 11/27/16 at 13:17; Status DC Miscellaneous Information ALL NURSING DEPARTME... UNSCH PRN .XX SEE LABEL COMMENTS; Start 11/27/16 at 18:00; Stop 11/28/16 at 17:59; Status DC Metoprolol Tartrate (Lopressor Inj) 5 mg Q5M PRN IV PUSH TACHYCARDIA > 100 Last administered on 12/15/16 03:54; Start 11/28/16 at 02:45 Sodium Chloride (Sodium Chloride 0.9% Inj) 20 ml STK-MED ONCE IV ; Start at 13:02; Stop 11/28/16 at 13:05; Status DC Propofol (Diprivan 200 Mg/20 ml Inj) 200 mg STK-MED ONCE IV ; Start 11/23/16 at 13:02; Stop 11/28/16 at 13:05; Status DC Fentanyl Citrate (fentaNYL INJ) 500 mcg STK-MED ONCE IV ; Start 11/23/16 at 13: 02; Stop 11/28/16 at 13:05; Status DC Ondansetron HCl (Zofran Inj) 4 mg STK-MED ONCE IV PUSH ; Start 11/23/16 at 13:02 ; Stop 11/28/16 at 13:05; Status DC Dexamethasone Sodium Phosphate (Decadron Inj) 4 mg STK-MED ONCE IV ; Start 11/23 at 13:02; Stop 11/28/16 at 13:05; Status DC Ketorolac Tromethamine (Toradol Inj) 60 mg STK-MED ONCE IM ; Start 11/23/16 at 13:02; Stop 11/28/16 at 13:05; Status DC Midazolam HCl (Versed Inj) 2 mg STK-MED ONCE IV ; Start 11/23/16 at 13:02; Stop 11/28/16 at 13:05; Status DC Phenylephrine HCl (Neosynephrine/ NS 1000 Mcg/10ml Syr) 1,000 mcg STK-MED ONCE IV Last administered on 11/23/16 13:02; Start 11/23/16 at 13:02; Stop at 13:05; Status DC Rocuronium [place] (Zemuron Inj) 50 mg STK-MED ONCE IV PUSH ; Start 11/23/16 at 13:02; Stop 11/28/16 at 13:05; Status DC Lidocaine HCl (Xylocaine-Mpf 1% Inj) 5 ml STK-MED ONCE OTHER ; Start 11/23/16 at 13:02; Stop 11/28/16 at 13:05; Status DC Calcium Gluconate 1 gm/Sodium Chloride 110 ml @ 110 mls/hr ONCE ONCE IV Last administered on 11/29/16 09:27; Start 11/29/16 at 09:00; Stop 11/29/16 at 09:59 ; Status DC Nicardipine HCl 25 mg/Sodium Chloride 250 ml @ 50 mls/hr TITRATE PRN IV Blood pressure management Last administered on 11/30/16 13:51; Start 11/30/16 at 11: 15; Stop 12/03/16 at 09:00; Status DC Nitroglycerin/ Dextrose 250 ml @ 1.5 mls/hr TITRATE PRN IV Hypertension; Start 11/30/16 at 11:15; Stop 12/03/16 at 09:00; Status DC Digoxin (Lanoxin Inj) 0.25 mg ONCE ONCE IV PUSH Last administered on 13:58; Start 11/30/16 at 12:15; Stop 11/30/16 at 12:16; Status DC Amiodarone HCl (Cordarone) 200 mg Q12HR OG-TUBE Last administered on 21:23; Start 11/30/16 at 21:00; Stop 12/24/16 at 08:50; Status DC Albuterol/ Ipratropium (Duoneb Neb) 1 ampule Q4HR NEB NEB Last administered on 12/04/16 07:42; Start 11/30/16 at 12:00; Stop 12/04/16 at 11:59; Status DC Albuterol Sulfate (Albuterol Neb) 2.5 mg Q2HR NEB PRN NEB DYSPNEA Last administered on 01/10/17 19:43; Start 11/30/16 at 11:15 Magnesium Sulfate/ Dextrose 100 ml @ 100 mls/hr Q1H IV Last administered on 14:51; Start 11/30/16 at 12:00; Stop 11/30/16 at 13:59; Status DC Iohexol (Omnipaque 350 Inj) 30 ml STK-MED ONCE G-TUBE Last administered on 11/30 13:31; Start 11/30/16 at 13:31; Stop 11/30/16 at 13:32; Status DC Trimethoprim/ Sulfamethoxazole (Bactrim Ds 800-160 Mg) 2 tab Q8HR PO Last administered on 12/11/16 20:19; Start 11/30/16 at 22:00; Stop 12/11/16 at 23: 55; Status DC Magnesium Sulfate/ Dextrose 100 ml @ 100 mls/hr Q1H IV Last administered on 15:37; Start 12/01/16 at 14:00; Stop 12/01/16 at 15:59; Status DC Potassium Phosphate 15 mmol/ Sodium Chloride 155 ml @ 38.75 mls/ hr ONCE ONCE IV Last administered on 12/01/16 18:01; Start 12/01/16 at 14:00; Stop at 17:59; Status DC Calcium Gluconate 1 gm/Sodium Chloride 110 ml @ 110 mls/hr ONCE ONCE IV Last administered on 12/01/16 17:06; Start 12/01/16 at 13:45; Stop 12/01/16 at 14:44 ; Status DC Insulin Detemir (Levemir Inj) 15 units Q12HR SQ Last administered on 20:25; Start 12/01/16 at 21:00; Stop 12/19/16 at 07:31; Status DC Insulin Detemir (Levemir Inj) 10 units NOW ONCE SQ ; Start 12/01/16 at 13:30; Stop 12/01/16 at 13:31; Status DC Insulin Human Regular (NovoLIN R SUPPLEMENTAL SCALE) 1 Q6H SQ ; Start 12/02/16 at 09:45; Status Cancel Insulin Human Regular (NovoLIN R SUPPLEMENTAL SCALE) 1 Q6H SQ Last administered on 01/01/17 08:00; Start 12/02/16 at 14:00 Oxycodone HCl (Roxicodone Intensol Liq) 5 mg Q6H PEG Last administered on 12/06 09:37; Start 12/02/16 at 10:00; Stop 12/06/16 at 11:09; Status DC Fentanyl Citrate (fentaNYL INJ) 50 mcg Q1H PRN IV PUSH PAIN SCALE 5 TO 10 Last administered on 01/10/17 04:50; Start 12/03/16 at 09:00; Stop 01/10/17 at 10: 00; Status DC Prednisone (Deltasone) 20 mg DAILY PO Last administered on 12/23/16 08:05; Start 12/04/16 at 09:00; Stop 12/24/16 at 08:50; Status DC Lisinopril (Prinivil) 10 mg DAILY PO Last administered on 01/11/17 07:49; Start 12/04/16 at 02:45 Fentanyl (Duragesic 50 Mcg Patch.72 Hr) 1 patch Q3D T-DERMAL Last administered on 12/13/16 15:24; Start 12/04/16 at 14:00; Stop 12/15/16 at 13 :11; Status DC Warfarin Sodium (Coumadin) 3 mg DAILY@16 PO Last administered on 12/06/16 17: 05; Start 12/04/16 at 16:00; Stop 12/07/16 at 08:17; Status DC Pharmacy Profile Note 0 ml @ 0 mls/hr UNSCH OTHER ; Start 12/04/16 at 12:15; Stop 12/13/16 at 10:46; Status DC Midazolam HCl (Versed Inj) 2 mg STK-MED ONCE IV ; Start 11/29/16 at 12:00; Stop 12/04/16 at 13:02; Status DC Propofol (Diprivan 200 Mg/20 ml Inj) 200 mg STK-MED ONCE IV ; Start 11/29/16 at 12:00; Stop 12/04/16 at 13:02; Status DC Miscellaneous Information 1 Q3D T-DERMAL Last administered on 01/03/17 14:00; Start 12/07/16 at 14:00 Patient Medication Teaching (Coumadin Booklet) 1 ONCE ONCE OTHER Last administered on 12/04/16 16:42; Start 12/04/16 at 16:00; Stop 12/04/16 at 16 :01; Status DC Albumin Human 100 ml @ 60 mls/hr ONCE ONCE IV Last administered on 22:18; Start 12/04/16 at 22:15; Stop 12/04/16 at 23:54; Status DC Albumin Human 100 ml @ 60 mls/hr ONCE ONCE IV Last administered on 01:07; Start 12/05/16 at 01:15; Stop 12/05/16 at 02:54; Status DC Calcium Gluconate 3 gm/Sodium Chloride 130 ml @ 120 mls/hr ONCE ONCE IV Last administered on 12/05/16 01:25; Start 12/05/16 at 02:00; Stop 12/05/16 at 03 :04; Status DC Warfarin Sodium (Coumadin) 2 mg ONCE ONCE PO Last administered on 12/05/16 16:01; Start 12/05/16 at 16:00; Stop 12/05/16 at 16:01; Status DC Warfarin Sodium (Coumadin) 5 mg ONCE ONCE PO Last administered on 12/06/16 17:05; Start 12/06/16 at 16:00; Stop 12/06/16 at 16:01; Status DC Oxycodone HCl (Roxicodone Intensol Liq) 5 mg Q6H PEG Last administered on 12/19 04:50; Start 12/06/16 at 16:00; Stop 12/24/16 at 08:50; Status DC Warfarin Sodium (Coumadin) 5 mg DAILY@1600 PO Last administered on 12/09/16 16:02; Start 12/07/16 at 16:00; Stop 12/10/16 at 12:59; Status DC Warfarin Sodium (Coumadin) 5 mg ONCE ONCE PO Last administered on 12/07/16 15:11; Start 12/07/16 at 16:00; Stop 12/07/16 at 16:01; Status DC Escitalopram Oxalate (Lexapro) 10 mg HS PO Last administered on 01/10/17 22: 09; Start 12/07/16 at 21:00 Bumetanide (Bumex Inj) 1 mg ONCE ONCE IV PUSH Last administered on 12/07/16 10:29; Start 12/07/16 at 08:45; Stop 12/07/16 at 09:16; Status DC Sodium Chloride (Sodium Chloride) 1 gm Q12HR PO Last administered on 07:49; Start 12/07/16 at 09:00 Warfarin Sodium (Coumadin) 2 mg ONCE@1600 ONCE PO Last administered on 15:46; Start 12/08/16 at 16:00; Stop 12/08/16 at 16:01; Status DC Warfarin Sodium (Coumadin) 5 mg ONCE ONCE PO Last administered on 12/09/16 16:02; Start 12/09/16 at 16:00; Stop 12/09/16 at 16:01; Status DC Alteplase, Recombinant (Cathflo Activase Inj) 2 mg NOW ONCE IV FLUSH Last administered on 12/13/16 11:21; Start 12/13/16 at 08:00; Stop 12/13/16 at 08 :01; Status DC Heparin Sodium (Porcine) (Heparin Inj) 5,000 units Q12HR SQ Last administered on 12/23/16 21:23; Start 12/13/16 at 21:00; Stop 12/24/16 at 09:06; Status DC Metoclopramide HCl (Reglan Inj) 10 mg Q8HR IV Last administered on 12/15/16 22:20; Start 12/14/16 at 14:30; Stop 12/16/16 at 14:28; Status DC Polyethylene Glycol/ Electrolytes (Colyte Liq) 4,000 ml ONCE ONCE PO Last administered on 12/14/16 21:50; Start 12/14/16 at 17:45; Stop 12/14/16 at 17 :51; Status DC Diatrizoate Meglum/ Diatrizoate Sod (Md Gastroview Liq) 18 ml ONCE ONCE PO Last administered on 12/15/16 09:30; Start 12/15/16 at 09:30; Stop 12/15/16 at 09:31; Status DC Iohexol (Omnipaque 350 Inj) 75 ml STK-MED ONCE IVCONTRAST Last administered on 12/15/16 10:51; Start 12/15/16 at 10:51; Stop 12/15/16 at 10:59; Status DC Amiodarone HCl (Cordarone Inj) 150 mg STK-MED ONCE .ROUTE ; Start 12/15/16 at 12:08; Stop 12/15/16 at 12:09; Status DC Norepinephrine Bitartrate (Levophed Inj) 4 mg STK-MED ONCE .ROUTE ; Start 12/15 at 13:15; Stop 12/15/16 at 13:16; Status DC Piperacillin Sod/ Tazobactam Sod 100 ml @ 200 mls/hr Q6H IV Last administered on 12/20/16 15:46; Start 12/15/16 at 15:00; Stop 12/20/16 at 15:58; Status DC Levofloxacin/ Dextrose 150 ml @ 100 mls/hr Q24H IV Last administered on 15:11; Start 12/15/16 at 14:00; Stop 12/15/16 at 15:58; Status DC Vancomycin HCl 1250 mg/Sodium Chloride 262.5 ml @ 262.5 mls/ hr ONCE ONCE IV Last administered on 12/15/16 16:00; Start 12/15/16 at 16:00; Stop 12/15/16 at 16:59; Status DC Micafungin Sodium 150 mg/Sodium Chloride 100 ml @ 100 mls/hr Q24H IV Last administered on 12/15/16 17:00; Start 12/15/16 at 17:00; Stop 12/18/16 at 16 :34; Status DC Sodium Chloride 1,000 ml @ 999 mls/hr Q1H1M ONCE IV Last administered on 12/15 20:25; Start 12/15/16 at 20:00; Stop 12/15/16 at 21:00; Status DC Fentanyl Citrate (fentaNYL INJ) 100 mcg ONCE ONCE IV Last administered on 20:22; Start 12/15/16 at 20:00; Stop 12/15/16 at 20:01; Status DC Midazolam HCl (Versed Inj) 2 mg ONCE ONCE IV Last administered on 12/15/16 20:22; Start 12/15/16 at 20:00; Stop 12/15/16 at 20:01; Status DC Metoclopramide HCl (Reglan Inj) 10 mg Q6HR IV Last administered on 12/24/16 06:05; Start 12/16/16 at 18:00; Stop 12/24/16 at 08:50; Status DC Polyethylene Glycol (Miralax) 17 gm DAILY PO Last administered on 12/18/16 09 :09; Start 12/17/16 at 10:15; Stop 12/18/16 at 16:09; Status DC Polyethylene Glycol (Miralax) 34 gm DAILY PO ; Start 12/19/16 at 09:00; Stop 12/20/16 at 17:33; Status DC Insulin Detemir (Levemir Inj) 8 units Q12HR SQ Last administered on 01/06/17 09:00; Start 12/19/16 at 09:00; Stop 01/09/17 at 17:09; Status DC Budesonide (Pulmicort Respule Neb) 0.5 mg Q12HR NEB NEB Last administered on 01/11/17 07:38; Start 12/19/16 at 08:00 Albuterol/ Ipratropium (Duoneb Neb) 1 ampule Q4HR NEB NEB Last administered on 12/23/16 07:24; Start 12/19/16 at 08:00; Stop 12/23/16 at 07:59; Status DC Phenylephrine HCl (Neosynephrine Inj) 10 mg STK-MED ONCE .ROUTE ; Start at 09:19; Stop 12/19/16 at 09:20; Status DC Digoxin (Lanoxin Inj) 0.25 mg ONCE ONCE IV PUSH Last administered on 15:46; Start 12/20/16 at 14:30; Stop 12/20/16 at 14:39; Status DC Potassium Chloride (KCl Powder) 40 meq ONCE ONCE PO ; Start 12/20/16 at 14:30 ; Stop 12/20/16 at 14:39; Status DC Polyethylene Glycol (Miralax) 17 gm DAILY PRN PO MILD CONSTIPATION; Start at 17:30 Propofol 50 ml @ As Directed STK-MED ONCE .ROUTE ; Start 12/22/16 at 14:20; Stop 12/22/16 at 14:21; Status DC Norepinephrine Bitartrate 250 ml @ As Directed STK-MED ONCE IV ; Start at 14:21; Stop 12/22/16 at 14:22; Status DC Amiodarone HCl (Cordarone) 200 mg DAILY OG-TUBE Last administered on 07:49; Start 12/24/16 at 09:00 Prednisone (Deltasone) 10 mg DAILY PO Last administered on 01/01/17 09:17; Start 12/24/16 at 09:00; Stop 01/01/17 at 13:05; Status DC Metoclopramide HCl (Reglan Liq) 10 mg Q8HR PO Last administered on 01/04/17 14:58; Start 12/24/16 at 14:00; Stop 01/04/17 at 15:28; Status DC Enoxaparin Sodium (Lovenox Inj) 40 mg Q24H SQ Last administered on 01/11/17 09:42; Start 12/24/16 at 10:00 Albuterol/ Ipratropium (Duoneb Neb) 1 ampule Q6HR WHILE AWAKE NEB NEB Last administered on 12/31/16 15:28; Start 12/27/16 at 20:00; Stop 12/31/16 at 19:59 ; Status DC Loperamide HCl (Imodium Liq) 2 mg UNSCH PRN PO DIARRHEA; Start 12/28/16 at 15: 45 Lactobacillus Acidophilus (Lactinex) 1 tab Q12HR PO Last administered on 07:50; Start 12/28/16 at 21:00 Acetylcysteine (Mucomyst 20% Neb) 2 ml Q6HR NEB NEB ; Start 12/30/16 at 16:00; Stop 12/30/16 at 20:29; Status DC Acetylcysteine (Mucomyst 20% Neb) 2 ml Q6HR NEB NEB Last administered on 14:41; Start 12/30/16 at 22:00; Stop 01/03/17 at 21:59; Status DC Sodium Hypochlorite (Dakin'S 0.125% Soln) 500 ml BID TOPICAL Last administered on 01/11/17 07:51; Start 12/31/16 at 21:00 Potassium Chloride (KCl) 20 meq ONCE ONCE PO Last administered on 01/01/17 14 :42; Start 01/01/17 at 09:30; Stop 01/01/17 at 09:36; Status DC Prednisone (Deltasone) 7.5 mg DAILY PO Last administered on 01/04/17 09:30; Start 01/02/17 at 09:00; Stop 01/04/17 at 19:28; Status DC Furosemide (Lasix) 20 mg DAILY PO Last administered on 01/11/17 07:49; Start 01/02/17 at 09:00 Potassium Chloride (KCl) 20 meq DAILY PO Last administered on 01/03/17 10:24; Start 01/02/17 at 09:00; Stop 01/04/17 at 15:18; Status DC Miscellaneous (Pill Splitter) 1 ea UNSCH PRN OTHER SEE LABEL COMMENTS; Start 01/01/17 at 14:15 Rocuronium [place] (Zemuron Inj) 50 mg STK-MED ONCE IV PUSH ; Start 11/27/16 at 12:00; Stop 01/03/17 at 08:02; Status DC Vecuronium [place] (Norcuron 20 Mg Inj) 20 mg STK-MED ONCE IV ; Start 11/27/16 at 12:00; Stop 01/03/17 at 08:02; Status DC Parenteral Electrolytes 1,000 ml @ As Directed STK-MED ONCE IV ; Start at 12:00; Stop 01/03/17 at 08:02; Status DC Ceftazidime/ Avibactam 2.5 gm/ Sodium Chloride 50 ml @ 25 mls/hr Q8H IV Last administered on 01/10/17 17:24; Start 01/03/17 at 18:00; Stop 01/10/17 at 20: 00; Status DC Metronidazole 100 ml @ 100 mls/hr Q8H IV Last administered on 01/05/17 01:00 ; Start 01/03/17 at 17:00; Stop 01/05/17 at 11:33; Status DC Potassium Bicarb/ Potassium Chloride (K-Lyte Cl Eff) 25 meq DAILY G-TUBE Last administered on 01/11/17 07:50; Start 01/04/17 at 15:30 Prednisone (Deltasone) 5 mg DAILY PO Last administered on 01/10/17 07:50; Start 01/05/17 at 09:00; Stop 01/11/17 at 08:59; Status DC Metoprolol Tartrate (Lopressor) 25 mg Q8HR PO Last administered on 01/11/17 13:16; Start 01/08/17 at 14:00 Diltiazem HCl (Cardizem) 60 mg Q6HR PO Last administered on 01/11/17 13:16; Start 01/08/17 at 18:00 Oxycodone/ Acetaminophen (Percocet 5-325 Mg) 1 tab Q4H PRN PO pain 1-8 Last administered on 01/11/17 09:42; Start 01/10/17 at 10:00 Oxycodone/ Acetaminophen (Percocet 5-325 Mg) 2 tab Q4H PRN PO 9-10 Last administered on 01/10/17 16:05; Start 01/10/17 at 10:00 Ceftolozane/ Tazobactam 1500 mg/Sodium Chloride 100 ml @ 100 mls/hr Q8H IV Last administered on 01/11/17 09:42; Start 01/11/17 at 02:00; Stop 01/16/17 at 23:59 A/P Assessment and Plan Metabolic encephalopathy - resolved. CIM/SHEFALI S/p Neuromuscular paralysis for Prone therapy Syncope Depression MRI C-spine showing increased signals C3-C5 region. Dr Riggins reviewed MRI spine- not sure about increased signal in cord, could be cervical hyperextension injury, from intubation according to him. Unable to do flexion- extension films of the C-spine (trached patient). 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 Patient will need to be on oral medication will DC that now and start Percocet. Haloperidol 5mg iv q4h prn for agitation. Escitalopram 10 mg qhs or depression from 12/07/16. MRI brain 11/26: Small focal signal abnormality in the superior medial left frontal lobe. Could be sequela from prior insult such as a contusion or small infarct. No acute infarct MRI brain 12/[address] on admission revealed no acute intracranial findings, CT brain 11/05- no acute findings. opacification of sinuses. EEG 11/20: No seizure activity. EEG 11/09: severe encephalopathy PT/OT for range of motion, up to stretcher chair as tolerated : Hypotension-resolved Atrial fib/ flutter with RVR - rate controlled.- telemetry in SR Hypertension on amiodarone to 200mg po daily for maintenance dose. digoxin 0.125 mg po daily. recheck level 01/04 and [id number] as long as stable. PO Diltiazem 90 mg PO q6hr- taper down to 60 mg po 6 on metoprolol 50mg Q6 - will decrease dose 25 mg po q8 with borderline SBPs Coumadin and heparin 12/10 held due to left popliteal fossa hematoma. now on lovenox for prophylactic dose since 12/24. given high risk for bleeding complication and low CHADS-VaSC risk, risk/benefit at this time in favor of holding full anticoagulation. Echo 10/25 EF 60-65%. Repeat echo with bubble study: 11/22: No shunt seen Acute, now chronic hypoxemic Respiratory failure s/p trach 11/27 Spontaneous Right sided PTX secondary to barotrauma - resolved. COPD exacerbation - resolved. Pneumonia most likely community-acquired - resolved. Obesity hypoventilation syndrome Tobacco use disorder albuterol aerosols every 2 hours PRN. Ventilator bundle on T piece - on fenestrated- Passimuir Budesonide 0.5 mg/2 mL aerosols twice a day. on Prednisone 10 mg daily continue to wean s/p trach 11/[address] Martin #[facility]. Pulmonary following. appreciate assistance. s/p 20Fr CT placed for right PTX 11/23, monitor CT drainage. d/c chest tube . CT pulmonary angio revealed no pulmonary embolus. Masslike consolidation in the posterior right upper lobe and medial right lower lobe. Lymphadenopathy to 1 cm right hilum and subcarinal. Atelectasis left lower lobe. Discontinued Prone therapy 11/02/16. continue t-piece as tolerated. BiPAP at hs Ileus - resolved.- improved on dignishield Morbid Obesity Elevated LFT's- now within normal. PEG tube placement 11/30. US liver: No ductal dilatation tube feeds with vital high-protein currently at 50 cc/hr. Metoclopramide 10 mg every 6 hours, change to PO.- DC with the diarrhea 01/04 No Cholecystostomy tube recommended by Dr. Nguyen. Recommended advance diet as tolerated Famotidine 20 milligrams mg twice a day for GI prophylaxis Hyponatremia Hypopotassemia Diarrhea: - improved C diff is negative. on lactinex and imodium. Monitor lytes Monitor renal function, I/O's, electrolytes replacement per protocol. Currently on sodium chloride 1 g every 12 hours Hyperglycemia- good readings on current regimen SSI Q6h on Levemer 8 units SQ bid- -not getting it for past 3 days so Levemir was discontinued. and ff blood sugars Normocytic anemia - stable. Leukocytosis L popliteal fossa hematoma - stable. Monitor closely for compartment syndrome Severe sepsis - resolved. 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 ~ 50% yellow loosely adherent slough is noted at the base, with ~50% pink tissue. I did evaluate the wound. Wound cultures have been obtain. I Add Patel po bid to help with wound healing Sputum: Klebsiella, Stenotrophomonas and Pseudomonas 11/27 Sputum cx 11/23: Kleb, Pseudomonas, s/p (ceftriaxone and fluconazole course). ID is following-Dr. Patel s/p ceftriaxone 11/02-11/09 for Enterobacter pneumonia. Repeat sputum Klebsiella sensitive to Rocephin s/p started on Avicaz 01/10 Flagyl DC- 01/04 C-diff PCR is negative now on Zerbax until 01/16 GI, famotidine. DVT - on lovenox. s/pIV heparin gtt/Coumadin DCd 12/10 due to left popliteal hematoma. Given bleeding complications with low CHADS-VaSC risk, risk/benefit in favor of holding full anticoagulation. 11/09 Doppler US LE negative for DVT Palliative care is following Discharge Planning Difficulty with placement due to IV antibiotics with zerbax. Most likely he will need to complete his course of antibiotics in order for a rehabilitation facility as outpatient. Discussed case with case management. Dorene Lubin MD Jan 11, 2017 14:04
--- NOTE | 2017-01-11 18:37 | HHI.PR ---
Subjective Remarks Alert and on T Bar at 30 % FIo2 No complaints. Moves feet better. Using PM valve. Objective Vital Signs Date Time Temp Pulse Resp B/P (MAP) Pulse Ox O2 Delivery O2 Flow Rate FiO2 01/11/17 16:00 98.6 77 20 141/67 (91) 96 01/11/17 12:46 98.7 75 23 115/59 (77) 96 01/11/17 08:00 98.3 66 18 123/63 (83) 98 01/11/17 07:55 66 01/11/17 07:44 95 Trach Collar 6.00 35 01/11/17 05:25 19 01/11/17 04:50 98.1 72 20 117/61 (79) 96 01/11/17 04:28 96 35 01/11/17 01:14 Bi-Pap 01/11/17 00:39 73 01/11/17 00:20 96 35 01/10/17 23:45 98.9 72 20 120/68 (85) 93 01/10/17 22:00 72 01/10/17 20:00 99.0 82 16 136/78 (97) 98 01/10/17 20:00 82 01/10/17 20:00 96 T-Piece 40 01/10/17 19:43 92 Trach Collar 5.00 40 I/O 01/10/17 01/10/17 01/10/17 01/11/17 01/11/17 01/11/17 07:00 15:00 23:00 07:00 15:00 23:00 Intake Total 100 ml 775 ml 100 ml 480 ml Output Total 1100 ml 1175 ml 550 ml 1200 ml Balance -1100 ml 100 ml -400 ml -450 ml -720 ml Intake Oral 600 ml 0 ml 480 ml IV Total 100 ml 75 ml 100 ml Other 100 ml Output Urine Total 1100 ml 1125 ml 450 ml 1200 ml Stool Total 50 ml 100 ml Result Diagram: 01/10/17 0456 01/11/17 0549 Objective Remarks GENERAL: Obese middle-aged white male who is a alert Has 1 + edema of the extremities. HEENT: Head normocephalic. Pupils are reactive. NECK: Supple. No bruits or thyroid enlargement. No venous distension. CHEST: Equal movements with diminished breath sounds at the bases, with Occ crackles. HEART: The heart sounds are regular. S1 and S2 with no definite murmur. ABDOMEN: Obese, protuberant. No masses, no organomegaly. EXTREMITIES: Mild edema. Decreased peripheral pulses. Reflexes 1+. The patient has some weakness of his lower extremities.and left arm. 1 + edema of all limbs. SKIN: Dry and scaly. Assessment and Plan Assessment and Plan IMPRESSION 1. Resolving respiratory failure. 2. Basilar pneumonia and hypoxemia. 3. COPD and chronic bronchitis. 4. Possible obstructive sleep apnea syndrome. 5. Hypertension. 6. Atrial fibrillation and CHF. 7. Severe sepsis, resolved. Plan : 1. BIPAP 12/5 CM FIO2 25 % at HS 2. Continue Diuretics. 3. Antibiotics per ID 4. T bar with FIo2 35 % daytime 7 am to 7 pm. 5. PT Evaluation.Up with help 6. Duoneb nebs qid. 7. Tube feeds at 55 CC. 8. PM valve as tolerated. Laura Haile MD Jan 11, 2017 18:37
[2017-01-11] MEDS: ESCITALOPRAM OXALATE 10 MG TAB PO SCH (22:06)
[2017-01-12] VITALS (10 sets, daily range): BP systolic 108–164; BP diastolic 53–82; PULSE 66–84; RESP 18–22; TEMP 98–99; O2SAT 90–98
[2017-01-12] MEDS: CEFTOLOZANE-TAZOBACTAM INJ 1,500 MG in SODIUM CHLORIDE 0.9% INJ 100 ML IV SCH ×3 (01:01→17:49)
[2017-01-12] MEDS: INSULIN NovoLIN REGULAR SUPPLEMENTAL SCALE SQ SCH ×4 (01:01→20:00)
[2017-01-12] MEDS: CHLORHEXIDINE GLUCONATE 2 % 1 PACK (2 CLOTHS) TOP SCH (03:17)
[2017-01-12] MEDS: oxyCODONE/ACETAMINOPHEN 5 MG/325 MG TAB PO PRN ×3 (04:54→22:16)
[2017-01-12] MEDS: DILTIAZEM HCL 60 MG TAB PO SCH ×4 (04:54→17:54)
[2017-01-12] MEDS: METOPROLOL TARTRATE 25 MG TAB PO SCH ×3 (04:54→22:17)
[2017-01-12] MEDS: RESP: BUDESONIDE 0.5 MG/2 ML NEB NEB SCH ×2 (07:45→20:37)
[2017-01-12] MEDS: CHLORHEXIDINE 0.12% (ORAL KIT) 15 ML CUP MT SCH ×2 (08:00→20:00)
[2017-01-12 08:11] LABS: APTT (PATIENT) 21.6 SEC (24.3-30.1)
[2017-01-12] MEDS: POTASSIUM CHLORIDE 25 MEQ EFFERVESCENT TAB G-TUBE SCH (09:42)
[2017-01-12] MEDS: DIGOXIN 0.125 MG TAB PO SCH (09:43)
[2017-01-12] MEDS: ENOXAPARIN SODIUM 40 MG/0.4 ML SYRINGE SQ SCH (09:43)
[2017-01-12] MEDS: LISINOPRIL 10 MG TAB PO SCH (09:43)
[2017-01-12] MEDS: FUROSEMIDE 20 MG TAB PO SCH (09:43)
[2017-01-12] MEDS: LACTOBACILLUS ACIDOPHILUS TAB PO SCH ×2 (09:43→22:16)
[2017-01-12] MEDS: FAMOTIDINE 20 MG TAB NG SCH ×2 (09:43→22:17)
[2017-01-12] MEDS: AMIODARONE 200 MG TAB OG-TUBE SCH (09:44)
[2017-01-12] MEDS: SODIUM HYPOCHLORITE 0.125% 500 ML BTL TOPICAL SCH ×2 (09:50→22:16)
[2017-01-12] MEDS: SODIUM CHLORIDE 0.9% FLUSH 10 ML FLUSH IVF SCH (09:51)
[2017-01-12] MEDS: ARTIFICIAL TEARS OPTH OINT 3.5 APPLIC/3.5 GM TUBO EACH EYE SCH ×2 (09:51→22:17)
[2017-01-12] MEDS: SODIUM CHLORIDE 1 GRAM TAB PO SCH ×2 (10:36→22:17)
[2017-01-12] MEDS: REMOVE OLD FENTANYL PATCH T-DERMAL SCH (14:00)
--- NOTE | 2017-01-12 14:08 | HHI.PR ---
Subjective Remarks Follow-up for multiple medical conditions and assessment and plan Patient denies any shortness of breathing. He stated that he had decreased secretion but needs to be suctioned now. Otherwise he has no other complaints. Denied any pain. His nurse at the bedside during the interview. Objective Vitals Vital Signs Date Time Temp Pulse Resp B/P (MAP) Pulse Ox O2 Delivery O2 Flow Rate FiO2 01/12/17 09:05 Aerosol Mask 50 01/12/17 09:05 95 Trach Collar 50 01/12/17 08:00 98.2 66 22 110/53 (72) 95 01/12/17 06:35 19 01/12/17 04:23 98 35 01/12/17 04:00 98.4 76 20 138/73 (94) 97 01/12/17 00:00 98.3 66 20 111/60 (77) 98 01/11/17 22:05 Bi-Pap 01/11/17 20:59 96 35 01/11/17 20:05 76 01/11/17 20:00 98.3 75 20 118/60 (79) 92 01/11/17 19:19 96 Trach Collar 6.00 35 01/11/17 16:00 98.6 77 20 141/67 (91) 96 I/O 01/11/17 01/11/17 01/11/17 01/12/17 01/12/17 01/12/17 07:00 15:00 23:00 07:00 15:00 23:00 Intake Total 100 ml 100 ml 480 ml 100 ml Output Total 550 ml 1200 ml 1675 ml Balance -450 ml 100 ml -720 ml -1575 ml Intake Oral 0 ml 480 ml IV Total 100 ml 100 ml 100 ml Output Urine Total 450 ml 1200 ml 1675 ml Stool Total 100 ml # Bowel Movements 2 Result Diagram: 01/10/17 0456 01/11/17 0549 Objective Remarks Gen: in NAD sitting in bed comfortably NECK: t piece in place Resp: CTA B/L CV: regular rhythm abdomen: soft, nontender extremities: tr edema, good peripheral pulses sacral decubitus: - stage 4- deep, edges, clean , no foul, no bleeding 01/06 exam bilateral infragluteal area/posterior aspect of the thigh - linear open wounds edges clean, left greater than right 01/07 exam condom catheter Medications and IVs Current Medications Sodium Chloride (NS Flush) 2 ml UNSCH PRN IVF FLUSH AFTER USING IV ACCESS; Start 10/25/16 at 04:00; Stop 10/25/16 at 05:31; Status DC Sodium Chloride 1,000 ml @ 999 mls/hr BOLUS ONCE IV Last administered on 10/25 04:12; Start 10/25/16 at 04:00; Stop 10/25/16 at 05:00; Status DC Magnesium Sulfate/ Dextrose 100 ml @ 100 mls/hr ONCE ONCE IV Last administered on 10/25/16 04:19; Start 10/25/16 at 04:00; Stop 10/25/16 at 04:59 ; Status DC Methylprednisolone Sodium Succinate (SoluMEDROL INJ) 125 mg ONCE ONCE IVP Last administered on 10/25/16 04:12; Start 10/25/16 at 04:00; Stop 10/25/16 at 04:01; Status DC Albuterol/ Ipratropium (Duoneb Neb) 1 ampule Q15M INH Last administered on 10/25 04:00; Start 10/25/16 at 04:00; Stop 10/25/16 at 04:31; Status DC Ondansetron HCl (Zofran Inj) 4 mg ONCE ONCE IV PUSH Last administered on 04:12; Start 10/25/16 at 04:00; Stop 10/25/16 at 04:01; Status DC Sodium Chloride 1,000 ml @ 999 mls/hr BOLUS ONCE IV Last administered on 10/25 05:30; Start 10/25/16 at 05:00; Stop 10/25/16 at 06:00; Status DC Vancomycin HCl 2050 mg/Sodium Chloride 520.5 ml @ 250 mls/hr ONCE ONCE IV Last administered on 10/25/16 08:05; Start 10/25/16 at 05:00; Stop 10/25/16 at 07:04; Status DC Piperacillin Sod/ Tazobactam Sod 50 ml @ 100 mls/hr ONCE ONCE IV Last administered on 10/25/16 05:30; Start 10/25/16 at 05:00; Stop 10/25/16 at 05:29 ; Status DC Amlodipine Besylate (Norvasc) 5 mg HS PO Last administered on 11/03/16 21:36; Start 10/25/16 at 21:00; Stop 11/04/16 at 11:58; Status DC Lisinopril (Prinivil) 20 mg HS PO Last administered on 10/27/16 20:03; Start at 21:00; Stop 10/28/16 at 08:31; Status DC Sodium Chloride (NS Flush) 2 ml UNSCH PRN .XX FLUSH AFTER USING IV ACCESS Last administered on 11/29/16 04:16; Start 10/25/16 at 05:30; Stop 12/24/16 at 08: 50; Status DC Sodium Chloride (NS Flush) 2 ml BID .XX Last administered on 12/23/16 21:24; Start 10/25/16 at 09:00; Stop 12/24/16 at 08:50; Status DC Acetaminophen (Tylenol) 650 mg Q6H PRN PO FEVER >101F Last administered on 11/23 13:20; Start 10/25/16 at 05:30 Famotidine (Pepcid) 20 mg Q12HR PO Last administered on 10/25/16 21:08; Start 10/25/16 at 09:00; Stop 10/26/16 at 08:21; Status DC Ondansetron HCl (Zofran Inj) 4 mg Q6H PRN IV NAUSEA OR VOMITING; Start at 05:30 Zolpidem Tartrate (Ambien) 5 mg HS PRN PO INSOMNIA; Start 10/25/16 at 05:30; Stop 10/25/16 at 14:09; Status DC Albuterol/ Ipratropium (Duoneb Neb) 1 ampule Q4HR NEB INH Last administered on 10/28/16 07:57; Start 10/25/16 at 08:00; Stop 10/28/16 at 08:31; Status DC Albuterol/ Ipratropium (Duoneb Neb) 1 ampule Q2HR NEB PRN INH WHEEZING; Start 10/25/16 at 05:30; Stop 10/25/16 at 12:21; Status DC Enoxaparin Sodium (Lovenox Inj) 40 mg Q24H SQ Last administered on 10/26/16 05: 06; Start 10/25/16 at 06:00; Stop 10/26/16 at 08:21; Status DC Miscellaneous Information 1 [id number] Last administered on 10/25/16 21:10; Start 10/25/16 at 05:30 Chlorhexidine Gluconate (Chlorhexidine 2% Cloth) 3 pack Taper DAILY@04 TOP Last administered on 01/10/17 04:00; Start 10/26/16 at 04:00; Stop 10/22/17 at 03:59 Chlorhexidine Gluconate (Chlorhexidine 2% Cloth) 3 pack UNSCH PRN TOP HYGIENIC CARE; Start 10/25/16 at 05:30 Senna/Docusate Sodium (Olga-Colace) 1 tab BID PO Last administered on 10/27/16 08:21; Start 10/25/16 at 09:00; Stop 10/27/16 at 12:32; Status DC Magnesium Hydroxide (Milk Of Magnesia Liq) 30 ml Q12H PRN PO MILD - MODERATE CONSTIPATION Last administered on 10/26/16 20:52; Start 10/25/16 at 05:30 Sennosides (Senokot) 17.2 mg Q12H PRN PO MODERATE - SEVERE CONSTIPATION Last administered on 12/11/16 02:44; Start 10/25/16 at 05:30 Bisacodyl (Dulcolax Supp) 10 mg DAILY PRN RECTAL SEVERE CONSITIPATION; Start at 05:30 Lactulose (Lactulose Liq) 30 ml DAILY PRN PO SEVERE CONSITIPATION; Start at 05:30 Piperacillin Sod/ Tazobactam Sod 100 ml @ 200 mls/hr Q6H IV Last administered on 11/02/16 11:37; Start 10/25/16 at 11:00; Stop 11/02/16 at 12:45; Status DC Azithromycin 500 mg/Sodium Chloride 250 ml @ 250 mls/hr Q24H IV Last administered on 11/02/16 05:04; Start 10/25/16 at 06:00; Stop 11/02/16 at 12:45; Status DC Methylprednisolone Sodium Succinate (SoluMEDROL INJ) 40 mg Q6H IV Last administered on 10/25/16 09:27; Start 10/25/16 at 10:00; Stop 10/25/16 at 13:45 ; Status DC Iohexol (Omnipaque 350 Inj) 75 ml STK-MED ONCE IVCONTRAST Last administered on 10/25/16 06:30; Start 10/25/16 at 06:30; Stop 10/25/16 at 06:31; Status DC Albuterol Sulfate (Albuterol Neb) 2.5 mg Q2HR NEB PRN NEB DYSPNEA Last administered on 11/22/16 03:15; Start 10/25/16 at 14:00; Stop 11/23/16 at 10:42 ; Status DC Budesonide (Pulmicort Respule Neb) 0.5 mg Q12HR NEB NEB Last administered on 12/17/16 07:18; Start 10/25/16 at 20:00; Stop 12/17/16 at 11:38; Status DC Sodium Chloride (Sodium Chloride 3% Neb) 2 ml Q4HR NEB NEB Last administered on 10/30/16 16:17; Start 10/25/16 at 16:00; Stop 10/30/16 at 15:59; Status DC Etomidate (Amidate Inj) 40 mg STK-MED ONCE .ROUTE ; Start 10/25/16 at 13:17; Stop 10/25/16 at 13:18; Status DC Rocuronium [place] (Zemuron Inj) 100 mg STK-MED ONCE .ROUTE Last administered on 10/25/16 13:47; Start 10/25/16 at 13:17; Stop 10/25/16 at 13:18; Status DC Etomidate (Amidate Inj) 40 mg ONCE ONCE IV PUSH ; Start 10/25/16 at 13:30; Stop 10/25/16 at 13:41; Status DC Rocuronium [place] (Zemuron Inj) 100 mg BOLUS ONCE IV Last administered on 13:30; Start 10/25/16 at 13:30; Stop 10/25/16 at 13:40; Status DC Chlorhexidine Gluconate (Peridex 0.12% Liq) 15 ml BID@08,20 MT Last administered on 01/11/17 09:44; Start 10/25/16 at 20:00 Propofol 100 ml @ 4.08 mls/hr TITRATE PRN IV SEDATION Last administered on 10/26 06:45; Start 10/25/16 at 13:30; Stop 10/26/16 at 08:16; Status DC Fentanyl Citrate 250 ml @ 5 mls/hr TITRATE PRN IV SEDATION Last administered on 11/07/16 23:20; Start 10/25/16 at 13:30; Stop 11/08/16 at 10:13; Status DC Sodium Chloride 1,000 ml @ 100 mls/hr Q10H IV Last administered on 10/27/16 15 :25; Start 10/25/16 at 13:30; Stop 10/27/16 at 16:28; Status DC Methylprednisolone Sodium Succinate (SoluMEDROL INJ) 60 mg Q6H IV Last administered on 10/28/16 05:10; Start 10/25/16 at 16:00; Stop 10/28/16 at 08:31; Status DC Dextrose (D50w (Vial) Inj) 50 ml UNSCH PRN IV HYPOGLYCEMIA-SEE COMMENTS; Start 10/25/16 at 14:15; Stop 11/20/16 at 07:52; Status DC Glucagon (Glucagon Inj) 1 mg UNSCH PRN OTHER HYPOGLYCEMIA-SEE COMMENTS; Start 10/25/16 at 14:15; Stop 11/20/16 at 07:52; Status DC Insulin Human Regular (NovoLIN R SUPPLEMENTAL SCALE) 1 Q6HR SQ Last administered on 11/03/16 12:00; Start 10/25/16 at 18:00; Stop 11/03/16 at 16:01; Status DC Potassium Chloride 100 ml @ 25 mls/hr Q2H IV ; Start 10/25/16 at 18:00; Stop at 21:59; Status DC Cisatracurium Besylate 100 mg/ Sodium Chloride 260 ml @ 21.21 mls/ hr TITRATE PRN IV TOF 1/4 Last administered on 10/26/16 02:50; Start 10/25/16 at 18:00; Stop 10/26/16 at 08:14; Status DC Midazolam HCl 100 ml @ 2 mls/hr TITRATE PRN IV SEDATION Last administered on 03:47; Start 10/25/16 at 16:15; Stop 11/03/16 at 13:00; Status DC Sodium Chloride (NS Flush) DAILY IVF Last administered on 01/12/17 09:51; Start 10/26/16 at 09:00 Sodium Chloride (NS Flush) UNSCH PRN IVF SEE PROTOCOL Last administered on 21:42; Start 10/25/16 at 16:45 Epoprostenol Sodium 87.5 ml/ Sodium Chloride 100 ml @ 8 mls/hr Q8H NEB Last administered on 10/27/16 08:20; Start 10/25/16 at 18:00; Stop 10/27/16 at 08:42; Status DC Protein (Beneprotein Powder) 2 pack TID G-TUBE Last administered on 11/12/16 18:00; Start 10/26/16 at 09:00; Stop 11/13/16 at 07:48; Status DC Cisatracurium Besylate 100 mg/ Sodium Chloride 250 ml @ 23.47 mls/ hr TITRATE PRN IV TOF goal Last administered on 11/02/16 07:10; Start 10/26/16 at 08:15; Stop 11/02/16 at 12:52; Status DC Propofol 100 ml @ 4.695 mls/ hr TITRATE PRN IV SEDATION Last administered on 12/03/16 07:47; Start 10/26/16 at 08:30; Stop 12/03/16 at 09:00; Status DC Enoxaparin Sodium (Lovenox Inj) 40 mg Q12HR SQ Last administered on 11/08/16 08:36; Start 10/26/16 at 21:00; Stop 11/08/16 at 10:13; Status DC Potassium Phosphate 15 mmol/ Sodium Chloride 155 ml @ 38.75 mls/ hr ONCE ONCE IV Last administered on 10/26/16 09:19; Start 10/26/16 at 08:45; Stop 10/26/16 at 12:44; Status DC Calcium Gluconate 1 gm/Dextrose 110 ml @ 110 mls/hr ONCE ONCE IV Last administered on 10/26/16 09:00; Start 10/26/16 at 09:00; Stop 10/26/16 at 09:59; Status DC Famotidine (Pepcid Inj) 20 mg Q12H IV PUSH Last administered on 11/16/16 08:19 ; Start 10/26/16 at 09:00; Stop 11/16/16 at 12:12; Status DC Artificial Tears (Lacrilube Opht Oint) 1 applic Q12HR EACH EYE Last administered on 01/12/17 09:51; Start 10/26/16 at 10:00 Epoprostenol Sodium 70 ml/ Sodium Chloride 100 ml @ 8 mls/hr Q8H NEB Last administered on 10/28/16 02:28; Start 10/27/16 at 16:00; Stop 10/28/16 at 09:12; Status DC Docusate Sodium (Colace Liq) 100 mg Q12HR PO Last administered on 11/09/16 21: 03; Start 10/27/16 at 21:00; Stop 11/10/16 at 09:22; Status DC Sennosides (Senna Liq) 8.8 mg BID PEG Last administered on 11/09/16 21:05; Start 10/27/16 at 21:00; Stop 11/10/16 at 09:22; Status DC Polyethylene Glycol (Miralax) 17 gm BID NG Last administered on 11/09/16 21:05 ; Start 10/27/16 at 21:00; Stop 11/10/16 at 09:22; Status DC Lactulose (Lactulose Liq) 30 ml QID PO Last administered on 11/09/16 17:39; Start 10/27/16 at 13:00; Stop 11/10/16 at 09:02; Status DC Sodium Phosphate 15 mmol/Sodium Chloride 155 ml @ 38.75 mls/ hr ONCE ONCE IV Last administered on 10/27/16 14:00; Start 10/27/16 at 14:00; Stop 10/27/16 at 17: 59; Status DC Furosemide (Lasix Inj) 40 mg ONCE ONCE IV PUSH Last administered on 10/27/16 13:54; Start 10/27/16 at 13:00; Stop 10/27/16 at 13:01; Status DC Calcium Gluconate (Calcium Gluconate Inj) 1 gm ONCE ONCE SLOW IVP Last administered on 10/28/16 07:40; Start 10/28/16 at 06:45; Stop 10/28/16 at 06:46; Status DC Insulin Human Regular (NovoLIN R INJ) 10 units ONCE ONCE IV PUSH Last administered on 10/28/16 07:38; Start 10/28/16 at 06:45; Stop 10/28/16 at 06:46; Status DC Dextrose (D50w (Vial) Inj) 50 ml ONCE ONCE IV PUSH Last administered on 07:38; Start 10/28/16 at 06:45; Stop 10/28/16 at 06:46; Status DC Sodium Bicarbonate (Sodium Bicarbonate 8.4% Inj) 50 meq ONCE ONCE SLOW IVP Last administered on 10/28/16 07:38; Start 10/28/16 at 06:45; Stop 10/28/16 at 06: 46; Status DC Sodium Polystyrene Sulfonate (Kayexalate Liq) 15 gm ONCE ONCE NG Last administered on 10/28/16 07:40; Start 10/28/16 at 06:45; Stop 10/28/16 at 06:46; Status DC Albuterol Sulfate (Albuterol Neb) 2.5 mg ONCE ONCE NEB Last administered on 06:53; Start 10/28/16 at 06:45; Stop 10/28/16 at 06:46; Status DC Albuterol/ Ipratropium (Duoneb Neb) 1 ampule Q4HR NEB INH Last administered on 11/01/16 11:21; Start 10/28/16 at 12:00; Stop 11/01/16 at 11:59; Status DC Methylprednisolone Sodium Succinate (SoluMEDROL INJ) 60 mg Q8HR IV Last administered on 10/31/16 05:08; Start 10/28/16 at 14:00; Stop 10/31/16 at 09:14; Status DC Hydralazine HCl (Apresoline) 25 mg Q8HR PO Last administered on 11/12/16 05:04 ; Start 10/28/16 at 14:00; Stop 11/12/16 at 07:25; Status DC Isosorbide Dinitrate (Isordil) 10 mg Q8HR PO Last administered on 11/23/16 05: 27; Start 10/28/16 at 14:00; Stop 12/24/16 at 08:50; Status DC Acetazolamide Sodium (Diamox Inj) 250 mg ONCE ONCE IV PUSH Last administered on 10/28/16 09:02; Start 10/28/16 at 09:00; Stop 10/28/16 at 09:08; Status DC Epoprostenol Sodium 87.5 ml/ Sodium Chloride 100 ml @ 8 mls/hr Q8H NEB Last administered on 10/31/16 04:32; Start 10/28/16 at 10:00; Stop 10/31/16 at 09:52; Status DC Methylnaltrexone [place] (Relistor Inj) 12 mg ONCE ONCE SQ Last administered on 10/28/16 10:49; Start 10/28/16 at 10:00; Stop 10/28/16 at 10:01; Status DC Mineral Oil (Kondremul Liq) 30 ml ONCE ONCE PO ; Start 10/28/16 at 09:15; Stop 10/28/16 at 09:16; Status Cancel Mineral Oil (Mineral Oil Liq) 30 ml ONCE ONCE PO Last administered on 10:50; Start 10/28/16 at 11:00; Stop 10/28/16 at 11:01; Status DC Bumetanide (Bumex Inj) 1 mg Q8H IV PUSH Last administered on 11/02/16 12:19; Start 10/29/16 at 13:00; Stop 11/02/16 at 12:51; Status DC Acetazolamide Sodium (Diamox Inj) 500 mg DAILY IV PUSH Last administered on 10/30 08:30; Start 10/29/16 at 12:45; Stop 10/31/16 at 08:59; Status DC Linezolid 300 ml @ 300 mls/hr Q12H IV Last administered on 11/10/16 14:02; Start 10/29/16 at 14:00; Stop 11/11/16 at 00:10; Status DC Hydralazine HCl (Apresoline Inj) 20 mg Q4H PRN IV PUSH SBP>160, DBP>90 Last administered on 11/04/16 12:04; Start 10/30/16 at 23:45; Stop 11/15/16 at 16:07 ; Status DC Methylprednisolone Sodium Succinate (SoluMEDROL INJ) 40 mg Q8HR IV Last administered on 11/02/16 05:04; Start 10/31/16 at 14:00; Stop 11/02/16 at 12:53; Status DC Epoprostenol Sodium 52.5 ml/ Sodium Chloride 100 ml @ 8 mls/hr Q8H NEB Last administered on 10/31/16 11:18; Start 10/31/16 at 10:00; Stop 10/31/16 at 17:59; Status DC Epoprostenol Sodium 35 ml/ Sodium Chloride 100 ml @ 8 mls/hr Q8H NEB ; Start 10/31/16 at 18:00; Stop 11/01/16 at 01:59; Status DC Epoprostenol Sodium 17.5 ml/ Sodium Chloride 100 ml @ 8 mls/hr Q8H NEB Last administered on 10/31/16 23:28; Start 11/01/16 at 02:00; Stop 11/01/16 at 10:00; Status DC Insulin Detemir (Levemir Inj) 15 units Q12H SQ Last administered on 11/02/16 12 :19; Start 11/01/16 at 13:00; Stop 11/02/16 at 12:52; Status DC Albuterol/ Ipratropium (Duoneb Neb) 1 ampule Q6HR NEB NEB Last administered on 11/06/16 08:33; Start 11/02/16 at 12:45; Stop 11/06/16 at 10:52; Status DC Ceftriaxone Sodium 2000 mg/ Sodium Chloride 100 ml @ 200 mls/hr Q24H IV Last administered on 11/09/16 14:16; Start 11/02/16 at 14:00; Stop 11/09/16 at 17:22 ; Status DC Bumetanide (Bumex Inj) 1 mg Q12H IV PUSH Last administered on 11/04/16 12:22; Start 11/02/16 at 13:00; Stop 11/04/16 at 13:00; Status DC Insulin Detemir (Levemir Inj) 20 units Q12H SQ Last administered on 11/05/16 00:23; Start 11/02/16 at 13:00; Stop 11/05/16 at 11:10; Status DC Methylprednisolone Sodium Succinate (SoluMEDROL INJ) 40 mg Q12HR IV Last administered on 11/08/16 20:33; Start 11/02/16 at 21:00; Stop 11/09/16 at 08:07 ; Status DC Oxycodone HCl (Roxicodone Intensol Liq) 10 mg Q4H PO Last administered on 06:35; Start 11/03/16 at 15:00; Stop 11/08/16 at 10:13; Status DC Haloperidol Lactate (Haldol Inj) 5 mg Q4H PRN IV PUSH agitation Last administered on 12/31/16 23:19; Start 11/03/16 at 13:00 Quetiapine Fumarate (SEROquel) 100 mg Q8HR PO Last administered on 11/08/16 05 :37; Start 11/03/16 at 15:00; Stop 11/08/16 at 10:13; Status DC Labetalol HCl (Trandate Inj) 20 mg Q15M PRN IV PUSH sbp > 160 Last administered on 11/30/16 09:39; Start 11/03/16 at 13:00; Stop 12/02/16 at 09:58 ; Status DC Hydralazine HCl (Apresoline Inj) 10 mg Q30M PRN IV PUSH sbp > 160 Last administered on 11/06/16 02:25; Start 11/03/16 at 13:00; Stop 11/15/16 at 16:07 ; Status DC Clonidine (Catapres) 0.2 mg Q8HR PO Last administered on 11/04/16 05:11; Start 11/03/16 at 15:00; Stop 11/04/16 at 11:59; Status DC Acetazolamide Sodium (Diamox Inj) 500 mg Q8H IV PUSH Last administered on 07:12; Start 11/03/16 at 15:00; Stop 11/04/16 at 07:01; Status DC Dextrose (D50w (Vial) Inj) 25 ml UNSCH PRN IV PUSH HYPOGLYCEMIA-SEE COMMENTS; Start 11/03/16 at 13:00; Stop 11/20/16 at 07:52; Status DC Insulin Human Regular (NovoLIN R SUPPLEMENTAL SCALE) 1 Q4HR SQ Last administered on 11/19/16 20:00; Start 11/03/16 at 16:00; Stop 11/20/16 at 07:40 ; Status DC Bumetanide (Bumex Inj) 1 mg Q8H IV PUSH Last administered on 11/08/16 05:38; Start 11/04/16 at 20:00; Stop 11/08/16 at 10:09; Status DC Acetazolamide Sodium (Diamox Inj) 500 mg Q8H IV PUSH Last administered on 06:11; Start 11/04/16 at 15:00; Stop 11/05/16 at 07:01; Status DC Amlodipine Besylate (Norvasc) 10 mg DAILY PO Last administered on 11/07/16 08: 00; Start 11/04/16 at 13:00; Stop 11/07/16 at 15:19; Status DC Clonidine (Catapres) 0.3 mg Q8HR PO Last administered on 11/18/16 04:58; Start 11/04/16 at 14:00; Stop 11/18/16 at 08:49; Status DC Nicardipine HCl 25 mg/Sodium Chloride 260 ml @ 52 mls/hr TITRATE PRN IV Blood pressure management; Start 11/04/16 at 12:00; Stop 11/16/16 at 12:12; Status DC Propranolol HCl (Inderal) 40 mg Q8HR PO Last administered on 11/11/16 05:15; Start 11/04/16 at 14:00; Stop 11/11/16 at 09:35; Status DC Alteplase, Recombinant (Cathflo Activase Inj) 2 mg NOW ONCE IV FLUSH Last administered on 11/04/16 21:49; Start 11/04/16 at 20:45; Stop 11/04/16 at 20:46 ; Status DC Alteplase, Recombinant (Cathflo Activase Inj) 2 mg NOW ONCE IV FLUSH ; Start at 21:00; Stop 11/04/16 at 21:01; Status DC Potassium Chloride 100 ml @ 50 mls/hr Q2H PRN IV For Potassium 2.8 - 3.2 mEq/ L Last administered on 11/29/16 09:27; Start 11/05/16 at 04:45; Stop 01/11/17 at 12:32; Status DC Potassium Chloride 100 ml @ 50 mls/hr Q2H PRN IV For Potassium 2.8 - 3.2 mEq/ L Last administered on 11/24/16 13:18; Start 11/05/16 at 04:45; Stop 01/11/17 at 12:32; Status DC Potassium Bicarb/ Potassium Chloride (K-Lyte Cl Eff) 50 meq UNSCH PRN PO For Potassium 3.3 - 3.5 mEq/L Last administered on 12/20/16 09:57; Start 11/05/16 at 04:45; Stop 01/11/17 at 12:32; Status DC Potassium Chloride 100 ml @ 25 mls/hr UNSCH PRN IV For Potassium 3.3 - 3.5 mEq /L Last administered on 12/22/16 06:32; Start 11/05/16 at 04:45; Stop at 12:32; Status DC Potassium Chloride 100 ml @ 50 mls/hr Q2H PRN IV For Potassium 3.3 - 3.5 mEq/L ; Start 11/05/16 at 04:45; Stop 01/11/17 at 12:32; Status DC Magnesium Sulfate 4 gm/Sodium Chloride 100 ml @ 50 mls/hr UNSCH PRN IV For Magnesium 0.9 - 1.1 mg/dL; Start 11/05/16 at 04:45; Stop 01/11/17 at 12:32; Status DC Magnesium Oxide (Mag-Ox) 800 mg UNSCH PRN PO For Magnesium 1.2 - 1.6 mg/dL; Start 11/05/16 at 04:45; Stop 01/11/17 at 12:32; Status DC Magnesium Sulfate 2 gm/Sodium Chloride 100 ml @ 50 mls/hr UNSCH PRN IV For Magnesium 1.2 - 1.6 mg/dL; Start 11/05/16 at 04:45; Stop 01/11/17 at 12:32; Status DC Potassium Phosphate (K-Phos) 2,000 mg Q4H PRN PO For Phosphorus < 2.5 mg/dL; Start 11/05/16 at 04:45; Stop 01/11/17 at 12:32; Status DC Sodium Phosphate 30 mmol/Sodium Chloride 250 ml @ 42 mls/hr UNSCH PRN IV For Phosphorus < 2.5 mg/dL Last administered on 12/04/16 09:28; Start 11/05/16 at 04:45; Stop 01/11/17 at 12:32; Status DC Potassium Phosphate (K-Phos) 2,000 mg UNSCH PRN PO/TUBE SEE LABEL COMMENTS; Start 11/05/16 at 04:45; Stop 01/11/17 at 12:32; Status DC Potassium Phosphate 30 mmol/ Sodium Chloride 260 ml @ 42 mls/hr UNSCH PRN IV SEE LABEL COMMENTS; Start 11/05/16 at 04:45; Stop 01/11/17 at 12:32; Status DC Acetazolamide Sodium (Diamox Inj) 500 mg Q8H IV PUSH Last administered on 05:32; Start 11/05/16 at 12:00; Stop 11/06/16 at 04:01; Status DC Insulin Detemir (Levemir Inj) 30 units Q12H SQ Last administered on 11/11/16 23:59; Start 11/05/16 at 13:00; Stop 11/12/16 at 07:25; Status DC Sodium Chloride (NS Flush) See Protocol DAILY IV FLUSH Last administered on 08:20; Start 11/06/16 at 09:00; Stop 11/16/16 at 14:16; Status DC Sodium Chloride (NS Flush) See Protocol UNSCH PRN IV FLUSH SEE PROTOCOL TABLE; Start 11/05/16 at 20:00; Stop 11/16/16 at 14:16; Status DC Heparin Sodium (Porcine) (Heparin Central Flush) See Protocol DAILY IV FLUSH ; Start 11/06/16 at 09:00; Stop 11/16/16 at 14:16; Status DC Heparin Sodium (Porcine) (Heparin Central Flush) See Protocol UNSCH PRN IV FLUSH SEE PROTOCOL TABLE; Start 11/05/16 at 20:00; Stop 11/16/16 at 14:16; Status DC Sodium Chloride (NS Flush) UNSCH PRN IV FLUSH SEE PROTOCOL TABLE; Start at 20:00; Stop 11/16/16 at 14:16; Status DC Diltiazem HCl (Cardizem Inj) 15 mg ONCE ONCE IV PUSH Last administered on 11/06 04:14; Start 11/06/16 at 04:15; Stop 11/06/16 at 04:16; Status DC Diltiazem HCl 125 mg/Sodium Chloride 125 ml @ 5 mls/hr TITRATE PRN IV Tachycardia Last administered on 11/16/16 02:17; Start 11/06/16 at 04:15; Stop 11/16/16 at 12:03; Status DC Albuterol/ Ipratropium (Duoneb Neb) 1 ampule Q6HR NEB NEB Last administered on 11/10/16 15:14; Start 11/06/16 at 16:00; Stop 11/10/16 at 15:59; Status DC Diltiazem HCl (Cardizem) 60 mg Q6HR PO Last administered on 11/15/16 13:11; Start 11/07/16 at 18:00; Stop 11/15/16 at 16:20; Status DC Bumetanide (Bumex Inj) 1 mg Q12H IV PUSH Last administered on 11/09/16 23:56; Start 11/08/16 at 12:00; Stop 11/10/16 at 07:12; Status DC Heparin Sodium/ Dextrose 250 ml @ 10 mls/hr TITRATE PRN IV Coagulation management Last administered on 11/21/16 14:15; Start 11/08/16 at 10:15; Stop 11/22/16 at 06:00; Status DC Piperacillin Sod/ Tazobactam Sod 100 ml @ 200 mls/hr Q6H IV Last administered on 11/11/16 13:30; Start 11/08/16 at 13:00; Stop 11/11/16 at 15:51; Status DC Vancomycin HCl 1250 mg/Sodium Chloride 262.5 ml @ 262.5 mls/ hr ONCE ONCE IV ; Start 11/08/16 at 14:00; Stop 11/08/16 at 14:00; Status DC Pharmacy Profile Note 0 ml @ 0 mls/hr UNSCH OTHER ; Start 11/08/16 at 11:45; Stop 11/10/16 at 09:22; Status DC Vancomycin HCl 2250 mg/Sodium Chloride 522.5 ml @ 257.5 mls/ hr Q24H IV Last administered on 11/09/16 14:13; Start 11/08/16 at 14:00; Stop 11/10/16 at 09:22 ; Status DC Miscellaneous Information SPECIFIC LAB TO BE PREMA... ONCE ONCE .XX ; Start 11/11 at 13:45; Stop 11/11/16 at 13:46; Status Cancel Methylprednisolone Sodium Succinate (SoluMEDROL INJ) 40 mg DAILY IV Last administered on 10/8/17at 08:19; Start 11/09/16 at 09:00; Stop 12/03/16 at 09:11 ; Status DC Piperacillin Sod/ Tazobactam Sod 100 ml @ 200 mls/hr Q6H IV ; Start 11/10/16 at 08:00; Stop 11/10/16 at 08:00; Status DC Diltiazem HCl (Cardizem Inj) 20 mg NOW ONCE IV Last administered on 11/11/16 00:24; Start 11/11/16 at 00:15; Stop 11/11/16 at 00:16; Status DC Micafungin Sodium 150 mg/Sodium Chloride 100 ml @ 100 mls/hr Q24H IV ; Start at 01:00; Stop 11/11/16 at 01:00; Status DC Micafungin Sodium 150 mg/Sodium Chloride 100 ml @ 100 mls/hr Q24H IV Last administered on 11/12/16 00:36; Start 11/11/16 at 02:00; Stop 11/12/16 at 17:46 ; Status DC Amiodarone HCl 150 mg/Dextrose 103 ml @ 600 mls/hr Q11M ONCE IV Last administered on 11/11/16 01:41; Start 11/11/16 at 01:18; Stop 11/11/16 at 01:28 ; Status DC Amiodarone HCl 450 mg/Dextrose 250 ml @ 33 mls/hr Q7H35M IV Last administered on 11/11/16 11:01; Start 11/11/16 at 01:28; Stop 11/11/16 at 12:19; Status DC Metoprolol Tartrate (Lopressor) 50 mg Q12HR PO Last administered on 11/11/16 20:05; Start 11/11/16 at 10:00; Stop 11/12/16 at 07:25; Status DC Pharmacy Profile Note 0 ml @ 0 mls/hr UNSCH OTHER ; Start 11/11/16 at 14:00; Stop 11/12/16 at 17:46; Status DC Vancomycin HCl 2000 mg/Sodium Chloride 520 ml @ 250 mls/hr Q12H IV Last administered on 11/12/16 05:04; Start 11/11/16 at 18:00; Stop 11/12/16 at 17:46 ; Status DC Miscellaneous Information SPECIFIC LAB TO BE DRAWN:VANCOMY... ONCE ONCE .XX Last administered on 11/12/16 03:13; Start 11/12/16 at 05:45; Stop 11/12/16 at 05:46; Status DC Piperacillin Sod/ Tazobactam Sod 100 ml @ 200 mls/hr Q6H IV Last administered on 11/12/16 13:07; Start 11/11/16 at 20:00; Stop 11/12/16 at 17:46; Status DC Insulin Detemir (Levemir Inj) 35 units Q12H SQ Last administered on 11/14/16 00:50; Start 11/12/16 at 13:00; Stop 11/14/16 at 06:59; Status DC Metoprolol Tartrate (Lopressor) 50 mg Q8H PO Last administered on 11/16/16 08: 19; Start 11/12/16 at 09:00; Stop 11/16/16 at 12:12; Status DC Sodium Chloride 500 ml @ 500 mls/hr BOLUS ONCE IV Last administered on 07:15; Start 11/12/16 at 07:15; Stop 11/12/16 at 08:14; Status DC Digoxin (Lanoxin Inj) 0.25 mg ONCE ONCE IV PUSH Last administered on 08:00; Start 11/12/16 at 08:00; Stop 11/12/16 at 08:01; Status DC Albuterol/ Ipratropium (Duoneb Neb) 1 ampule Q4HR NEB NEB Last administered on 11/15/16 14:46; Start 11/12/16 at 08:00; Stop 11/15/16 at 16:02; Status DC Amiodarone HCl 150 mg/Dextrose 103 ml @ 600 mls/hr Q11M ONCE IV Last administered on 11/12/16 09:16; Start 11/12/16 at 09:16; Stop 11/12/16 at 09:26 ; Status DC Amiodarone HCl 450 mg/Dextrose 250 ml @ 33 mls/hr Q7H35M IV Last administered on 11/17/16 13:11; Start 11/12/16 at 09:26; Stop 11/18/16 at 08:48; Status DC Ceftriaxone Sodium 2000 mg/ Sodium Chloride 100 ml @ 200 mls/hr Q24H IV Last administered on 11/20/16 18:51; Start 11/12/16 at 18:00; Stop 11/20/16 at 23:55 ; Status DC Fluconazole/ Sodium Chloride 100 ml @ 100 mls/hr Q24H IV Last administered on 11/18/16 20:22; Start 11/12/16 at 20:00; Stop 11/19/16 at 19:59; Status DC Sodium Chloride 1,000 ml @ 999 mls/hr BOLUS ONCE IV Last administered on 11/13 09:08; Start 11/13/16 at 07:45; Stop 11/13/16 at 08:45; Status DC Fentanyl Citrate 250 ml @ 5 mls/hr TITRATE PRN IV SEDATION Last administered on 12/03/16 06:20; Start 11/13/16 at 14:00; Stop 12/03/16 at 09:00; Status DC Insulin Detemir (Levemir Inj) 45 units Q12H SQ Last administered on 11/15/16 13:11; Start 11/14/16 at 13:00; Stop 11/16/16 at 11:55; Status DC Bumetanide (Bumex Inj) 2 mg ONCE ONCE IV PUSH Last administered on 11/14/16 11:09; Start 11/14/16 at 10:45; Stop 11/14/16 at 10:52; Status DC Albuterol/ Ipratropium (Duoneb Neb) 1 ampule Q4HR NEB NEB Last administered on 11/19/16 16:00; Start 11/15/16 at 20:00; Stop 11/19/16 at 19:59; Status DC Hydralazine HCl (Apresoline Inj) 10 mg Q1HR PRN IV PUSH sbp > 160 Last administered on 12/15/16 03:34; Start 11/15/16 at 16:15 Nitroglycerin (Nitroglycerin 2% Oint) 2 inch Q6HR PRN TOPICAL SBP>160, DBP>90; Start 11/15/16 at 16:15; Stop 12/24/16 at 08:50; Status DC Labetalol HCl (Trandate Inj) 10 mg Q1HR PRN IV PUSH SBP>160, DBP>90, HR>65 Last administered on 12/15/16 03:18; Start 11/15/16 at 16:15 Diltiazem HCl (Cardizem) 30 mg Q6HR PO ; Start 11/15/16 at 18:00; Stop 11/15/16 at 18:00; Status DC Diltiazem HCl (Cardizem) 90 mg Q6HR PO Last administered on 01/08/17 13:24; Start 11/15/16 at 18:00; Stop 01/08/17 at 13:58; Status DC Insulin Detemir (Levemir Inj) 55 units Q12H SQ Last administered on 11/17/16 13:00; Start 11/16/16 at 13:00; Stop 11/17/16 at 13:21; Status DC Esmolol HCl/ Sodium Chloride 250 ml @ 44.25 mls/ hr TITRATE PRN IV Blood Pressure Management Last administered on 11/17/16 12:07; Start 11/16/16 at 12: 15; Stop 11/19/16 at 07:48; Status DC Midazolam HCl 100 ml @ 2 mls/hr TITRATE PRN IV SEDATION Last administered on 05:52; Start 11/16/16 at 12:15; Stop 12/03/16 at 09:00; Status DC Metoprolol Tartrate (Lopressor) 50 mg Q6HR PO Last administered on 01/08/17 05:32; Start 11/16/16 at 18:00; Stop 01/08/17 at 13:51; Status DC Famotidine (Pepcid) 20 mg BID NG Last administered on 01/12/17 09:43; Start 11/16/16 at 21:00 Digoxin (Lanoxin Inj) 0.5 mg ONCE ONCE IV PUSH Last administered on 11/16/16 14:27; Start 11/16/16 at 12:30; Stop 11/16/16 at 13:01; Status DC Digoxin (Lanoxin Inj) 0.25 mg ONCE ONCE IV PUSH Last administered on 19:16; Start 11/16/16 at 18:30; Stop 11/16/16 at 18:31; Status DC Sodium Chloride (NS Flush) See Protocol DAILY IV FLUSH Last administered on 08:04; Start 11/17/16 at 09:00; Stop 12/24/16 at 08:50; Status DC Sodium Chloride (NS Flush) See Protocol UNSCH PRN IV FLUSH SEE PROTOCOL TABLE; Start 11/16/16 at 14:30; Stop 12/24/16 at 08:50; Status DC Heparin Sodium (Porcine) (Heparin Central Flush) See Protocol DAILY IV FLUSH Last administered on 12/23/16 08:03; Start 11/17/16 at 09:00; Stop 12/24/16 at 08:50; Status DC Heparin Sodium (Porcine) (Heparin Central Flush) See Protocol UNSCH PRN IV FLUSH SEE PROTOCOL TABLE; Start 11/16/16 at 14:30; Stop 12/24/16 at 08:50; Status DC Sodium Chloride (NS Flush) UNSCH PRN IV FLUSH SEE PROTOCOL TABLE; Start at 14:30; Stop 12/24/16 at 08:50; Status DC Insulin Detemir (Levemir Inj) 75 units Q12H SQ Last administered on 11/18/16 00:17; Start 11/18/16 at 01:00; Stop 11/18/16 at 12:42; Status DC Bumetanide (Bumex Inj) 1 mg ONCE ONCE IV PUSH Last administered on 11/17/16 15:11; Start 11/17/16 at 13:30; Stop 11/17/16 at 13:31; Status DC Amiodarone HCl (Cordarone) 400 mg Q12HR OG-TUBE Last administered on 11/29/16 07:53; Start 11/18/16 at 09:00; Stop 11/30/16 at 11:08; Status DC Clonidine (Catapres) 0.2 mg Q8HR OG-TUBE Last administered on 11/18/16 14:05; Start 11/18/16 at 14:00; Stop 11/18/16 at 21:29; Status DC Calcium Chloride 1 gm/Sodium Chloride 110 ml @ 110 mls/hr ONCE ONCE IV Last administered on 11/18/16 10:27; Start 11/18/16 at 10:00; Stop 11/18/16 at 10:59 ; Status DC Sodium Chloride (Sodium Chloride) 1 gm ONCE ONCE PO Last administered on 14:04; Start 11/18/16 at 10:00; Stop 11/18/16 at 10:01; Status DC Epoprostenol Sodium 87.5 ml/ Sodium Chloride 100 ml @ 8 mls/hr Q8H NEB ; Start 11/18/16 at 09:00; Status Cancel Epoprostenol Sodium 87.5 ml/ Sodium Chloride 100 ml @ 8 mls/hr Q8H NEB Last administered on 11/23/16 07:26; Start 11/18/16 at 09:00; Stop 11/24/16 at 09:59 ; Status DC Digoxin (Lanoxin) 0.125 mg ONCE ONCE PO Last administered on 11/18/16 10:27; Start 11/18/16 at 09:30; Stop 11/18/16 at 09:49; Status DC Digoxin (Lanoxin) 0.125 mg DAILY PO Last administered on 01/12/17 09:43; Start 11/19/16 at 09:00; Status Future hold Insulin Detemir (Levemir Inj) 62 units Q12H SQ Last administered on 11/18/16 13:00; Start 11/18/16 at 13:00; Stop 12/24/16 at 08:50; Status DC Clonidine (Catapres) 0.2 mg Q8HR OG-TUBE Last administered on 12/06/16 05:54 ; Start 11/18/16 at 22:00; Stop 12/06/16 at 10:42; Status DC Diltiazem HCl (Cardizem Inj) 25 mg STK-MED ONCE .ROUTE Last administered on 11:15; Start 11/19/16 at 11:09; Stop 11/19/16 at 11:10; Status DC Diltiazem HCl (Cardizem Inj) 10 mg NOW ONCE IV PUSH ; Start 11/19/16 at 13:15; Stop 11/19/16 at 13:16; Status DC Dextrose (D50w (Vial) Inj) 50 ml UNSCH PRN IV PUSH HYPOGLYCEMIA-SEE COMMENTS Last administered on 12/17/16 04:15; Start 11/20/16 at 07:45 Glucagon (Glucagon Inj) 1 mg UNSCH PRN OTHER HYPOGLYCEMIA-SEE COMMENTS; Start 11/20/16 at 07:45 Insulin Human Regular (NovoLIN R SUPPLEMENTAL SCALE) 1 Q4H SQ ; Start 11/20/16 at 07:45; Stop 11/20/16 at 07:53; Status DC Insulin Human Regular (NovoLIN R SUPPLEMENTAL SCALE) 1 Q4HR SQ Last administered on 12/01/16 20:00; Start 11/20/16 at 08:00; Stop 12/02/16 at 09:36 ; Status DC Digoxin (Lanoxin Inj) 0.25 mg ONCE ONCE IV PUSH Last administered on 12:55; Start 11/21/16 at 12:30; Stop 11/21/16 at 12:31; Status DC Bumetanide (Bumex Inj) 1 mg ONCE ONCE IV PUSH Last administered on 11/22/16 08:04; Start 11/22/16 at 07:30; Stop 11/22/16 at 07:31; Status DC Acetazolamide Sodium (Diamox Inj) 500 mg ONCE ONCE IV PUSH Last administered on 11/22/16 07:55; Start 11/22/16 at 07:30; Stop 11/22/16 at 07:31; Status DC Albuterol/ Ipratropium (Duoneb Neb) 1 ampule Q4HR NEB NEB Last administered on 11/26/16 03:35; Start 11/22/16 at 08:00; Stop 11/26/16 at 07:59; Status DC Rocuronium [place] (Zemuron Inj) 50 mg BOLUS ONCE IV ; Start 11/22/16 at 08:15 ; Stop 11/22/16 at 08:33; Status DC Fentanyl Citrate (fentaNYL INJ) 250 mcg ONCE ONCE IV PUSH ; Start 11/22/16 at 08:15; Stop 11/22/16 at 08:33; Status DC Heparin Sodium/ Dextrose 250 ml @ 10 mls/hr TITRATE IV Last administered on 15:58; Start 11/22/16 at 17:45; Stop 12/10/16 at 12:59; Status DC Heparin Sodium (Porcine) (Heparin Inj) 5,000 units UNSCH PRN IV PUSH aPTT less than 25; Start 11/22/16 at 17:45; Stop 12/10/16 at 12:59; Status DC Heparin Sodium (Porcine) (Heparin Inj) 2,500 units UNSCH PRN IV PUSH aPTT 25 to 39 Last administered on 11/28/16 16:01; Start 11/22/16 at 17:45; Stop 12/10 at 12:59; Status DC Heparin Sodium/ Dextrose 250 ml @ 10 mls/hr TITRATE PRN IV Coagulation management; Start 11/22/16 at 20:15; Status Cancel Bumetanide (Bumex Inj) 1 mg ONCE ONCE IV PUSH Last administered on 11/23/16 07:40; Start 11/23/16 at 07:15; Stop 11/23/16 at 07:29; Status DC Albuterol/ Ipratropium (Duoneb Neb) 1 ampule Q2HR NEB PRN NEB SOB/WHEEZING Last administered on 11/30/16 03:34; Start 11/23/16 at 10:45; Stop 11/30/16 at 11:08; Status DC Lidocaine HCl (Xylocaine 1% Inj (50 ml)) 50 ml STK-MED ONCE .ROUTE ; Start 11/23 at 11:26; Stop 11/23/16 at 11:27; Status DC Vancomycin HCl 1000 mg/Sodium Chloride 250 ml @ 250 mls/hr Q12H IV ; Start at 15:15; Stop 11/23/16 at 16:46; Status DC Pharmacy Profile Note 0 ml @ 0 mls/hr UNSCH OTHER ; Start 11/23/16 at 15:15; Stop 11/26/16 at 14:22; Status DC Piperacillin Sod/ Tazobactam Sod 100 ml @ 200 mls/hr Q6H IV Last administered on 12/12/16 00:47; Start 11/23/16 at 17:00; Stop 12/11/16 at 23:55; Status DC Vancomycin HCl 2000 mg/Sodium Chloride 520 ml @ 250 mls/hr Q12H IV ; Start at 18:00; Stop 11/23/16 at 21:06; Status DC Vancomycin HCl 500 mg/Sodium Chloride 100 ml @ 200 mls/hr ONCE ONCE IV Last administered on 11/23/16 22:00; Start 11/23/16 at 22:00; Stop 11/23/16 at 22:29 ; Status DC Vancomycin HCl 2500 mg/Sodium Chloride 525 ml @ 257.5 mls/ hr Q12H IV Last administered on 11/26/16 08:36; Start 11/24/16 at 09:00; Stop 11/26/16 at 14:22 ; Status DC Miscellaneous Information SPECIFIC LAB TO BE PREMA... ONCE ONCE .XX ; Start 11/25 at 08:45; Stop 11/25/16 at 08:47; Status DC Epoprostenol Sodium 70 ml/ Sodium Chloride 100 ml @ 8 mls/hr Q8H NEB Last administered on 11/24/16 10:36; Start 11/24/16 at 10:00; Stop 11/24/16 at 17:59 ; Status DC Epoprostenol Sodium 52.5 ml/ Sodium Chloride 100 ml @ 8 mls/hr Q8H NEB Last administered on 11/24/16 20:00; Start 11/24/16 at 18:00; Stop 11/25/16 at 01:59 ; Status DC Epoprostenol Sodium 35 ml/ Sodium Chloride 100 ml @ 8 mls/hr Q8H NEB Last administered on 11/25/16 02:02; Start 11/25/16 at 02:00; Stop 11/25/16 at 09:59 ; Status DC Epoprostenol Sodium 17.5 ml/ Sodium Chloride 100 ml @ 8 mls/hr Q8H NEB Last administered on 11/25/16 09:40; Start 11/25/16 at 10:00; Stop 11/25/16 at 17:59 ; Status DC Miscellaneous Information SPECIFIC LAB TO BE DRAWN:VANCOMYCIN TROUGH DATE TO... ONCE ONCE .XX ; Start 11/27/16 at 08:45; Stop 11/27/16 at 08:45; Status DC Bumetanide (Bumex Inj) 1 mg ONCE ONCE IV PUSH Last administered on 11/26/16 08:34; Start 11/26/16 at 08:15; Stop 11/26/16 at 08:16; Status DC Diltiazem HCl (Cardizem Inj) 25 mg STK-MED ONCE .ROUTE Last administered on 10:36; Start 11/26/16 at 10:31; Stop 11/26/16 at 10:32; Status DC Diltiazem HCl (Cardizem Inj) 10 mg NOW ONCE IV PUSH ; Start 11/26/16 at 10:45; Stop 11/26/16 at 10:46; Status DC Bupivacaine HCl/ Epinephrine Bitart (Sensorcaine-Epinephrine Pf 0.5% Inj) 20 ml ONCE ONCE INFIL Last administered on 11/27/16 13:16; Start 11/27/16 at 13:16 ; Stop 11/27/16 at 13:17; Status DC Miscellaneous Information ALL NURSING DEPARTME... UNSCH PRN .XX SEE LABEL COMMENTS; Start 11/27/16 at 18:00; Stop 11/28/16 at 17:59; Status DC Metoprolol Tartrate (Lopressor Inj) 5 mg Q5M PRN IV PUSH TACHYCARDIA > 100 Last administered on 12/15/16 03:54; Start 11/28/16 at 02:45 Sodium Chloride (Sodium Chloride 0.9% Inj) 20 ml STK-MED ONCE IV ; Start at 13:02; Stop 11/28/16 at 13:05; Status DC Propofol (Diprivan 200 Mg/20 ml Inj) 200 mg STK-MED ONCE IV ; Start 11/23/16 at 13:02; Stop 11/28/16 at 13:05; Status DC Fentanyl Citrate (fentaNYL INJ) 500 mcg STK-MED ONCE IV ; Start 11/23/16 at 13: 02; Stop 11/28/16 at 13:05; Status DC Ondansetron HCl (Zofran Inj) 4 mg STK-MED ONCE IV PUSH ; Start 11/23/16 at 13:02 ; Stop 11/28/16 at 13:05; Status DC Dexamethasone Sodium Phosphate (Decadron Inj) 4 mg STK-MED ONCE IV ; Start 11/23 at 13:02; Stop 11/28/16 at 13:05; Status DC Ketorolac Tromethamine (Toradol Inj) 60 mg STK-MED ONCE IM ; Start 11/23/16 at 13:02; Stop 11/28/16 at 13:05; Status DC Midazolam HCl (Versed Inj) 2 mg STK-MED ONCE IV ; Start 11/23/16 at 13:02; Stop 11/28/16 at 13:05; Status DC Phenylephrine HCl (Neosynephrine/ NS 1000 Mcg/10ml Syr) 1,000 mcg STK-MED ONCE IV Last administered on 11/23/16 13:02; Start 11/23/16 at 13:02; Stop at 13:05; Status DC Rocuronium [place] (Zemuron Inj) 50 mg STK-MED ONCE IV PUSH ; Start 11/23/16 at 13:02; Stop 11/28/16 at 13:05; Status DC Lidocaine HCl (Xylocaine-Mpf 1% Inj) 5 ml STK-MED ONCE OTHER ; Start 11/23/16 at 13:02; Stop 11/28/16 at 13:05; Status DC Calcium Gluconate 1 gm/Sodium Chloride 110 ml @ 110 mls/hr ONCE ONCE IV Last administered on 11/29/16 09:27; Start 11/29/16 at 09:00; Stop 11/29/16 at 09:59 ; Status DC Nicardipine HCl 25 mg/Sodium Chloride 250 ml @ 50 mls/hr TITRATE PRN IV Blood pressure management Last administered on 11/30/16 13:51; Start 11/30/16 at 11: 15; Stop 12/03/16 at 09:00; Status DC Nitroglycerin/ Dextrose 250 ml @ 1.5 mls/hr TITRATE PRN IV Hypertension; Start 11/30/16 at 11:15; Stop 12/03/16 at 09:00; Status DC Digoxin (Lanoxin Inj) 0.25 mg ONCE ONCE IV PUSH Last administered on 13:58; Start 11/30/16 at 12:15; Stop 11/30/16 at 12:16; Status DC Amiodarone HCl (Cordarone) 200 mg Q12HR OG-TUBE Last administered on 21:23; Start 11/30/16 at 21:00; Stop 12/24/16 at 08:50; Status DC Albuterol/ Ipratropium (Duoneb Neb) 1 ampule Q4HR NEB NEB Last administered on 12/04/16 07:42; Start 11/30/16 at 12:00; Stop 12/04/16 at 11:59; Status DC Albuterol Sulfate (Albuterol Neb) 2.5 mg Q2HR NEB PRN NEB DYSPNEA Last administered on 01/10/17 19:43; Start 11/30/16 at 11:15 Magnesium Sulfate/ Dextrose 100 ml @ 100 mls/hr Q1H IV Last administered on 14:51; Start 11/30/16 at 12:00; Stop 11/30/16 at 13:59; Status DC Iohexol (Omnipaque 350 Inj) 30 ml STK-MED ONCE G-TUBE Last administered on 11/30 13:31; Start 11/30/16 at 13:31; Stop 11/30/16 at 13:32; Status DC Trimethoprim/ Sulfamethoxazole (Bactrim Ds 800-160 Mg) 2 tab Q8HR PO Last administered on 12/11/16 20:19; Start 11/30/16 at 22:00; Stop 12/11/16 at 23: 55; Status DC Magnesium Sulfate/ Dextrose 100 ml @ 100 mls/hr Q1H IV Last administered on 15:37; Start 12/01/16 at 14:00; Stop 12/01/16 at 15:59; Status DC Potassium Phosphate 15 mmol/ Sodium Chloride 155 ml @ 38.75 mls/ hr ONCE ONCE IV Last administered on 12/01/16 18:01; Start 12/01/16 at 14:00; Stop at 17:59; Status DC Calcium Gluconate 1 gm/Sodium Chloride 110 ml @ 110 mls/hr ONCE ONCE IV Last administered on 12/01/16 17:06; Start 12/01/16 at 13:45; Stop 12/01/16 at 14:44 ; Status DC Insulin Detemir (Levemir Inj) 15 units Q12HR SQ Last administered on 20:25; Start 12/01/16 at 21:00; Stop 12/19/16 at 07:31; Status DC Insulin Detemir (Levemir Inj) 10 units NOW ONCE SQ ; Start 12/01/16 at 13:30; Stop 12/01/16 at 13:31; Status DC Insulin Human Regular (NovoLIN R SUPPLEMENTAL SCALE) 1 Q6H SQ ; Start 12/02/16 at 09:45; Status Cancel Insulin Human Regular (NovoLIN R SUPPLEMENTAL SCALE) 1 Q6H SQ Last administered on 01/01/17 08:00; Start 12/02/16 at 14:00 Oxycodone HCl (Roxicodone Intensol Liq) 5 mg Q6H PEG Last administered on 12/06 09:37; Start 12/02/16 at 10:00; Stop 12/06/16 at 11:09; Status DC Fentanyl Citrate (fentaNYL INJ) 50 mcg Q1H PRN IV PUSH PAIN SCALE 5 TO 10 Last administered on 01/10/17 04:50; Start 12/03/16 at 09:00; Stop 01/10/17 at 10: 00; Status DC Prednisone (Deltasone) 20 mg DAILY PO Last administered on 12/23/16 08:05; Start 12/04/16 at 09:00; Stop 12/24/16 at 08:50; Status DC Lisinopril (Prinivil) 10 mg DAILY PO Last administered on 01/12/17 09:43; Start 12/04/16 at 02:45 Fentanyl (Duragesic 50 Mcg Patch.72 Hr) 1 patch Q3D T-DERMAL Last administered on 12/13/16 15:24; Start 12/04/16 at 14:00; Stop 12/15/16 at 13 :11; Status DC Warfarin Sodium (Coumadin) 3 mg DAILY@16 PO Last administered on 12/06/16 17: 05; Start 12/04/16 at 16:00; Stop 12/07/16 at 08:17; Status DC Pharmacy Profile Note 0 ml @ 0 mls/hr UNSCH OTHER ; Start 12/04/16 at 12:15; Stop 12/13/16 at 10:46; Status DC Midazolam HCl (Versed Inj) 2 mg STK-MED ONCE IV ; Start 11/29/16 at 12:00; Stop 12/04/16 at 13:02; Status DC Propofol (Diprivan 200 Mg/20 ml Inj) 200 mg STK-MED ONCE IV ; Start 11/29/16 at 12:00; Stop 12/04/16 at 13:02; Status DC Miscellaneous Information 1 Q3D T-DERMAL Last administered on 01/03/17 14:00; Start 12/07/16 at 14:00 Patient Medication Teaching (Coumadin Booklet) 1 ONCE ONCE OTHER Last administered on 12/04/16 16:42; Start 12/04/16 at 16:00; Stop 12/04/16 at 16 :01; Status DC Albumin Human 100 ml @ 60 mls/hr ONCE ONCE IV Last administered on 22:18; Start 12/04/16 at 22:15; Stop 12/04/16 at 23:54; Status DC Albumin Human 100 ml @ 60 mls/hr ONCE ONCE IV Last administered on 01:07; Start 12/05/16 at 01:15; Stop 12/05/16 at 02:54; Status DC Calcium Gluconate 3 gm/Sodium Chloride 130 ml @ 120 mls/hr ONCE ONCE IV Last administered on 12/05/16 01:25; Start 12/05/16 at 02:00; Stop 12/05/16 at 03 :04; Status DC Warfarin Sodium (Coumadin) 2 mg ONCE ONCE PO Last administered on 12/05/16 16:01; Start 12/05/16 at 16:00; Stop 12/05/16 at 16:01; Status DC Warfarin Sodium (Coumadin) 5 mg ONCE ONCE PO Last administered on 12/06/16 17:05; Start 12/06/16 at 16:00; Stop 12/06/16 at 16:01; Status DC Oxycodone HCl (Roxicodone Intensol Liq) 5 mg Q6H PEG Last administered on 12/19 04:50; Start 12/06/16 at 16:00; Stop 12/24/16 at 08:50; Status DC Warfarin Sodium (Coumadin) 5 mg DAILY@1600 PO Last administered on 12/09/16 16:02; Start 12/07/16 at 16:00; Stop 12/10/16 at 12:59; Status DC Warfarin Sodium (Coumadin) 5 mg ONCE ONCE PO Last administered on 12/07/16 15:11; Start 12/07/16 at 16:00; Stop 12/07/16 at 16:01; Status DC Escitalopram Oxalate (Lexapro) 10 mg HS PO Last administered on 01/11/17 22: 06; Start 12/07/16 at 21:00 Bumetanide (Bumex Inj) 1 mg ONCE ONCE IV PUSH Last administered on 12/07/16 10:29; Start 12/07/16 at 08:45; Stop 12/07/16 at 09:16; Status DC Sodium Chloride (Sodium Chloride) 1 gm Q12HR PO Last administered on 10:36; Start 12/07/16 at 09:00 Warfarin Sodium (Coumadin) 2 mg ONCE@1600 ONCE PO Last administered on 15:46; Start 12/08/16 at 16:00; Stop 12/08/16 at 16:01; Status DC Warfarin Sodium (Coumadin) 5 mg ONCE ONCE PO Last administered on 12/09/16 16:02; Start 12/09/16 at 16:00; Stop 12/09/16 at 16:01; Status DC Alteplase, Recombinant (Cathflo Activase Inj) 2 mg NOW ONCE IV FLUSH Last administered on 12/13/16 11:21; Start 12/13/16 at 08:00; Stop 12/13/16 at 08 :01; Status DC Heparin Sodium (Porcine) (Heparin Inj) 5,000 units Q12HR SQ Last administered on 12/23/16 21:23; Start 12/13/16 at 21:00; Stop 12/24/16 at 09:06; Status DC Metoclopramide HCl (Reglan Inj) 10 mg Q8HR IV Last administered on 12/15/16 22:20; Start 12/14/16 at 14:30; Stop 12/16/16 at 14:28; Status DC Polyethylene Glycol/ Electrolytes (Colyte Liq) 4,000 ml ONCE ONCE PO Last administered on 12/14/16 21:50; Start 12/14/16 at 17:45; Stop 12/14/16 at 17 :51; Status DC Diatrizoate Meglum/ Diatrizoate Sod ( Gastroview Liq) 18 ml ONCE ONCE PO Last administered on 12/15/16 09:30; Start 12/15/16 at 09:30; Stop 12/15/16 at 09:31; Status DC Iohexol (Omnipaque 350 Inj) 75 ml STK-MED ONCE IVCONTRAST Last administered on 12/15/16 10:51; Start 12/15/16 at 10:51; Stop 12/15/16 at 10:59; Status DC Amiodarone HCl (Cordarone Inj) 150 mg STK-MED ONCE .ROUTE ; Start 12/15/16 at 12:08; Stop 12/15/16 at 12:09; Status DC Norepinephrine Bitartrate (Levophed Inj) 4 mg STK-MED ONCE .ROUTE ; Start 12/15 at 13:15; Stop 12/15/16 at 13:16; Status DC Piperacillin Sod/ Tazobactam Sod 100 ml @ 200 mls/hr Q6H IV Last administered on 12/20/16 15:46; Start 12/15/16 at 15:00; Stop 12/20/16 at 15:58; Status DC Levofloxacin/ Dextrose 150 ml @ 100 mls/hr Q24H IV Last administered on 15:11; Start 12/15/16 at 14:00; Stop 12/15/16 at 15:58; Status DC Vancomycin HCl 1250 mg/Sodium Chloride 262.5 ml @ 262.5 mls/ hr ONCE ONCE IV Last administered on 12/15/16 16:00; Start 12/15/16 at 16:00; Stop 12/15/16 at 16:59; Status DC Micafungin Sodium 150 mg/Sodium Chloride 100 ml @ 100 mls/hr Q24H IV Last administered on 12/15/16 17:00; Start 12/15/16 at 17:00; Stop 12/18/16 at 16 :34; Status DC Sodium Chloride 1,000 ml @ 999 mls/hr Q1H1M ONCE IV Last administered on 12/15 20:25; Start 12/15/16 at 20:00; Stop 12/15/16 at 21:00; Status DC Fentanyl Citrate (fentaNYL INJ) 100 mcg ONCE ONCE IV Last administered on 20:22; Start 12/15/16 at 20:00; Stop 12/15/16 at 20:01; Status DC Midazolam HCl (Versed Inj) 2 mg ONCE ONCE IV Last administered on 12/15/16 20:22; Start 12/15/16 at 20:00; Stop 12/15/16 at 20:01; Status DC Metoclopramide HCl (Reglan Inj) 10 mg Q6HR IV Last administered on 12/24/16 06:05; Start 12/16/16 at 18:00; Stop 12/24/16 at 08:50; Status DC Polyethylene Glycol (Miralax) 17 gm DAILY PO Last administered on 10/24/17at 09 :09; Start 12/17/16 at 10:15; Stop 12/18/16 at 16:09; Status DC Polyethylene Glycol (Miralax) 34 gm DAILY PO ; Start 12/19/16 at 09:00; Stop 12/20/16 at 17:33; Status DC Insulin Detemir (Levemir Inj) 8 units Q12HR SQ Last administered on 01/06/17 09:00; Start 12/19/16 at 09:00; Stop 01/09/17 at 17:09; Status DC Budesonide (Pulmicort Respule Neb) 0.5 mg Q12HR NEB NEB Last administered on 01/12/17 07:45; Start 12/19/16 at 08:00 Albuterol/ Ipratropium (Duoneb Neb) 1 ampule Q4HR NEB NEB Last administered on 12/23/16 07:24; Start 12/19/16 at 08:00; Stop 12/23/16 at 07:59; Status DC Phenylephrine HCl (Neosynephrine Inj) 10 mg STK-MED ONCE .ROUTE ; Start at 09:19; Stop 12/19/16 at 09:20; Status DC Digoxin (Lanoxin Inj) 0.25 mg ONCE ONCE IV PUSH Last administered on 15:46; Start 12/20/16 at 14:30; Stop 12/20/16 at 14:39; Status DC Potassium Chloride (KCl Powder) 40 meq ONCE ONCE PO ; Start 12/20/16 at 14:30 ; Stop 12/20/16 at 14:39; Status DC Polyethylene Glycol (Miralax) 17 gm DAILY PRN PO MILD CONSTIPATION; Start at 17:30 Propofol 50 ml @ As Directed STK-MED ONCE .ROUTE ; Start 12/22/16 at 14:20; Stop 12/22/16 at 14:21; Status DC Norepinephrine Bitartrate 250 ml @ As Directed STK-MED ONCE IV ; Start at 14:21; Stop 12/22/16 at 14:22; Status DC Amiodarone HCl (Cordarone) 200 mg DAILY OG-TUBE Last administered on 09:44; Start 12/24/16 at 09:00 Prednisone (Deltasone) 10 mg DAILY PO Last administered on 01/01/17 09:17; Start 12/24/16 at 09:00; Stop 01/01/17 at 13:05; Status DC Metoclopramide HCl (Reglan Liq) 10 mg Q8HR PO Last administered on 01/04/17 14:58; Start 12/24/16 at 14:00; Stop 01/04/17 at 15:28; Status DC Enoxaparin Sodium (Lovenox Inj) 40 mg Q24H SQ Last administered on 01/12/17 09:43; Start 12/24/16 at 10:00 Albuterol/ Ipratropium (Duoneb Neb) 1 ampule Q6HR WHILE AWAKE NEB NEB Last administered on 12/31/16 15:28; Start 12/27/16 at 20:00; Stop 12/31/16 at 19:59 ; Status DC Loperamide HCl (Imodium Liq) 2 mg UNSCH PRN PO DIARRHEA; Start 12/28/16 at 15: 45 Lactobacillus Acidophilus (Lactinex) 1 tab Q12HR PO Last administered on 09:43; Start 12/28/16 at 21:00 Acetylcysteine (Mucomyst 20% Neb) 2 ml Q6HR NEB NEB ; Start 12/30/16 at 16:00; Stop 12/30/16 at 20:29; Status DC Acetylcysteine (Mucomyst 20% Neb) 2 ml Q6HR NEB NEB Last administered on 14:41; Start 12/30/16 at 22:00; Stop 01/03/17 at 21:59; Status DC Sodium Hypochlorite (Dakin'S 0.125% Soln) 500 ml BID TOPICAL Last administered on 01/12/17 09:50; Start 12/31/16 at 21:00 Potassium Chloride (KCl) 20 meq ONCE ONCE PO Last administered on 01/01/17 14 :42; Start 01/01/17 at 09:30; Stop 01/01/17 at 09:36; Status DC Prednisone (Deltasone) 7.5 mg DAILY PO Last administered on 01/04/17 09:30; Start 01/02/17 at 09:00; Stop 01/04/17 at 19:28; Status DC Furosemide (Lasix) 20 mg DAILY PO Last administered on 01/12/17 09:43; Start 01/02/17 at 09:00 Potassium Chloride (KCl) 20 meq DAILY PO Last administered on 01/03/17 10:24; Start 01/02/17 at 09:00; Stop 01/04/17 at 15:18; Status DC Miscellaneous (Pill Splitter) 1 ea UNSCH PRN OTHER SEE LABEL COMMENTS; Start 01/01/17 at 14:15 Rocuronium [place] (Zemuron Inj) 50 mg STK-MED ONCE IV PUSH ; Start 11/27/16 at 12:00; Stop 01/03/17 at 08:02; Status DC Vecuronium [place] (Norcuron 20 Mg Inj) 20 mg STK-MED ONCE IV ; Start 11/27/16 at 12:00; Stop 01/03/17 at 08:02; Status DC Parenteral Electrolytes 1,000 ml @ As Directed STK-MED ONCE IV ; Start at 12:00; Stop 01/03/17 at 08:02; Status DC Ceftazidime/ Avibactam 2.5 gm/ Sodium Chloride 50 ml @ 25 mls/hr Q8H IV Last administered on 01/10/17 17:24; Start 01/03/17 at 18:00; Stop 01/10/17 at 20: 00; Status DC Metronidazole 100 ml @ 100 mls/hr Q8H IV Last administered on 01/05/17 01:00 ; Start 01/03/17 at 17:00; Stop 01/05/17 at 11:33; Status DC Potassium Bicarb/ Potassium Chloride (K-Lyte Cl Eff) 25 meq DAILY G-TUBE Last administered on 01/12/17 09:42; Start 01/04/17 at 15:30 Prednisone (Deltasone) 5 mg DAILY PO Last administered on 01/10/17 07:50; Start 01/05/17 at 09:00; Stop 01/11/17 at 08:59; Status DC Metoprolol Tartrate (Lopressor) 25 mg Q8HR PO Last administered on 01/12/17 04:54; Start 01/08/17 at 14:00 Diltiazem HCl (Cardizem) 60 mg Q6HR PO Last administered on 11/18/17at 04:54; Start 01/08/17 at 18:00 Oxycodone/ Acetaminophen (Percocet 5-325 Mg) 1 tab Q4H PRN PO pain 1-8 Last administered on 01/12/17 04:54; Start 01/10/17 at 10:00 Oxycodone/ Acetaminophen (Percocet 5-325 Mg) 2 tab Q4H PRN PO 9-10 Last administered on 01/12/17 10:37; Start 01/10/17 at 10:00 Ceftolozane/ Tazobactam 1500 mg/Sodium Chloride 100 ml @ 100 mls/hr Q8H IV Last administered on 01/12/17 10:36; Start 01/11/17 at 02:00; Stop 01/16/17 at 23:59 A/P Assessment and Plan Metabolic encephalopathy - resolved. CIM/SHEFALI S/p Neuromuscular paralysis for Prone therapy Syncope Depression MRI C-spine showing increased signals C3-C5 region. Dr Riggins reviewed MRI spine- not sure about increased signal in cord, could be cervical hyperextension injury, from intubation according to him. Unable to do flexion- extension films of the C-spine (trached patient). 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 Patient will need to be on oral medication will DC that now and start Percocet. Haloperidol 5mg iv q4h prn for agitation. Escitalopram 10 mg qhs or depression from 12/07/16. MRI brain 11/26: Small focal signal abnormality in the superior medial left frontal lobe. Could be sequela from prior insult such as a contusion or small infarct. No acute infarct MRI brain 12/[address] on admission revealed no acute intracranial findings, CT brain 11/05- no acute findings. opacification of sinuses. EEG 11/20: No seizure activity. EEG 11/09: severe encephalopathy PT/OT for range of motion, up to stretcher chair as tolerated : Hypotension-resolved Atrial fib/ flutter with RVR - rate controlled.- telemetry in SR Hypertension on amiodarone to 200mg po daily for maintenance dose. digoxin 0.125 mg po daily. recheck level 01/04 and [id number] as long as stable. PO Diltiazem 90 mg PO q6hr- taper down to 60 mg po 6 on metoprolol 50mg Q6 - will decrease dose 25 mg po q8 with borderline SBPs Coumadin and heparin 12/10 held due to left popliteal fossa hematoma. now on lovenox for prophylactic dose since 12/24. given high risk for bleeding complication and low CHADS-VaSC risk, risk/benefit at this time in favor of holding full anticoagulation. Echo 10/25 EF 60-65%. Repeat echo with bubble study: 11/22: No shunt seen Acute, now chronic hypoxemic Respiratory failure s/p trach 11/27 Spontaneous Right sided PTX secondary to barotrauma - resolved. COPD exacerbation - resolved. Pneumonia most likely community-acquired - resolved. Obesity hypoventilation syndrome Tobacco use disorder albuterol aerosols every 2 hours PRN. Ventilator bundle on T piece - on fenestrated- Passimuir Budesonide 0.5 mg/2 mL aerosols twice a day. on Prednisone 10 mg daily continue to wean s/p trach 11/[address] Martin #8 [place]. Pulmonary following. appreciate assistance. s/p 20Fr CT placed for right PTX 11/23, monitor CT drainage. d/c chest tube . CT pulmonary angio revealed no pulmonary embolus. Masslike consolidation in the posterior right upper lobe and medial right lower lobe. Lymphadenopathy to 1 cm right hilum and subcarinal. Atelectasis left lower lobe. Discontinued Prone therapy 11/02/16. continue t-piece as tolerated. BiPAP at hs Ileus - resolved.- improved on [facility] Morbid Obesity Elevated LFT's- now within normal. PEG tube placement 11/30. US liver: No ductal dilatation tube feeds with vital high-protein currently at 50 cc/hr. Metoclopramide 10 mg every 6 hours, change to PO.- DC with the diarrhea 01/04 No Cholecystostomy tube recommended by Dr. Nguyen. Recommended advance diet as tolerated Famotidine 20 milligrams mg twice a day for GI prophylaxis Hyponatremia Hypopotassemia Diarrhea: - improved C diff is negative. on lactinex and imodium. Monitor lytes Monitor renal function, I/O's, electrolytes replacement per protocol. Currently on sodium chloride 1 g every 12 hours Hyperglycemia- good readings on current regimen SSI Q6h on Levemer 8 units SQ bid- -not getting it for past 3 days so Levemir was discontinued. and ff blood sugars Normocytic anemia - stable. Leukocytosis L popliteal fossa hematoma - stable. Monitor closely for compartment syndrome Severe sepsis - resolved. HCAP -resolved Leukocytosis Per charge out clerk, pt has a sacrococcygeal Wound measuring 4cm x 3cm x ~3.2cm. ~ 50% yellow loosely adherent slough is noted at the base, with ~50% pink tissue. I did evaluate the wound. Wound cultures have been obtain. I Add Patel po bid to help with wound healing Sputum: Klebsiella, Stenotrophomonas and Pseudomonas 11/27 Sputum cx 11/23: Kleb, Pseudomonas, s/p (ceftriaxone and fluconazole course). ID is following-Dr. Patel s/p ceftriaxone 11/02-11/09 for Enterobacter pneumonia. Repeat sputum Klebsiella sensitive to Rocephin s/p started on Avicaz 01/10 Flagyl DC- 01/04 C-diff PCR is negative now on Zerbax until 01/16 GI, famotidine. DVT - on lovenox. s/pIV heparin gtt/Coumadin DCd 12/10 due to left popliteal hematoma. Given bleeding complications with low CHADS-VaSC risk, risk/benefit in favor of holding full anticoagulation. 11/09 Doppler US LE negative for DVT Palliative care is following Discharge Planning Difficulty with placement due to IV antibiotics with zerbax last day 01/16. Most likely he will need to complete his course of antibiotics in order for a rehabilitation facility as outpatient. Dorene Lubin MD Jan 12, 2017 14:08
[2017-01-12] MEDS: ESCITALOPRAM OXALATE 10 MG TAB PO SCH (22:16)
[2017-01-13] VITALS (10 sets, daily range): BP systolic 96–143; BP diastolic 60–68; PULSE 60–71; RESP 18–22; TEMP 97.9–98.8; O2SAT 91–98
[2017-01-13] MEDS: CEFTOLOZANE-TAZOBACTAM INJ 1,500 MG in SODIUM CHLORIDE 0.9% INJ 100 ML IV SCH ×3 (01:03→18:11)
[2017-01-13] MEDS: INSULIN NovoLIN REGULAR SUPPLEMENTAL SCALE SQ SCH ×4 (02:00→20:00)
[2017-01-13] MEDS: CHLORHEXIDINE GLUCONATE 2 % 1 PACK (2 CLOTHS) TOP SCH (04:00)
[2017-01-13] MEDS: METOPROLOL TARTRATE 25 MG TAB PO SCH ×3 (06:28→21:52)
[2017-01-13] MEDS: DILTIAZEM HCL 60 MG TAB PO SCH ×4 (06:28→18:11)
[2017-01-13] MEDS: CHLORHEXIDINE 0.12% (ORAL KIT) 15 ML CUP MT SCH ×2 (08:00→20:00)
[2017-01-13] MEDS: RESP: BUDESONIDE 0.5 MG/2 ML NEB NEB SCH ×2 (08:46→21:26)
[2017-01-13] MEDS: ARTIFICIAL TEARS OPTH OINT 3.5 APPLIC/3.5 GM TUBO EACH EYE SCH ×2 (09:00→21:00)
[2017-01-13] MEDS: SODIUM CHLORIDE 1 GRAM TAB PO SCH ×2 (09:00→21:52)
[2017-01-13] MEDS: SODIUM CHLORIDE 0.9% FLUSH 10 ML FLUSH IVF SCH (09:00)
[2017-01-13 09:14] LABS: HEMATOCRIT 32.7 % (39.0-51.0); MEAN CELL VOLUME 93.1 FL (80.0-100.0); MEAN CORPUSCULAR HEMOGLOBIN 30.2 PG (27.0-34.0); MEAN CORPUSCULAR HGB CONC 32.5 % (32.0-36.0); PLATELET COUNT 479 TH/MM3 (150-450); RED BLOOD COUNT 3.51 MIL/MM3 (4.50-5.90); REVIEW FLAG FINAL; WHITE BLOOD COUNT 15.3 TH/MM3 (4.0-11.0)
[2017-01-13 09:21] LABS: APTT (PATIENT) 24.7 SEC (24.3-30.1)
[2017-01-13] MEDS: POTASSIUM CHLORIDE 25 MEQ EFFERVESCENT TAB G-TUBE SCH (10:12)
[2017-01-13] MEDS: DIGOXIN 0.125 MG TAB PO SCH (10:12)
[2017-01-13] MEDS: ENOXAPARIN SODIUM 40 MG/0.4 ML SYRINGE SQ SCH (10:14)
[2017-01-13] MEDS: LACTOBACILLUS ACIDOPHILUS TAB PO SCH ×2 (10:30→21:52)
[2017-01-13] MEDS: FAMOTIDINE 20 MG TAB NG SCH ×2 (10:30→21:52)
[2017-01-13] MEDS: FUROSEMIDE 20 MG TAB PO SCH (10:30)
[2017-01-13] MEDS: LISINOPRIL 10 MG TAB PO SCH (10:30)
[2017-01-13] MEDS: SODIUM HYPOCHLORITE 0.125% 500 ML BTL TOPICAL SCH ×2 (10:31→21:00)
[2017-01-13] MEDS: AMIODARONE 200 MG TAB OG-TUBE SCH (10:31)
[2017-01-13] MEDS: oxyCODONE/ACETAMINOPHEN 5 MG/325 MG TAB PO PRN ×3 (13:51→21:52)
--- NOTE | 2017-01-13 14:18 | HHI.PR ---
Subjective Remarks Follow-up for pneumonia and trach management. Patient had no complaints. He stated that he is requiring less suctioning. Patient has no complaints. Denied any SOB or cough. Objective Vitals Vital Signs Date Time Temp Pulse Resp B/P (MAP) Pulse Ox O2 Delivery O2 Flow Rate FiO2 01/13/17 12:00 98.8 68 18 143/67 (92) 94 01/13/17 08:46 Aerosol Mask 5.00 50 01/13/17 08:46 94 Trach Collar 5.00 50 01/13/17 08:00 98.2 70 18 143/66 (91) 93 01/13/17 05:00 Bi-Pap 01/13/17 05:00 98.2 60 20 96/60 (72) 93 01/13/17 00:23 98 21 01/13/17 00:00 Bi-Pap 01/12/17 20:49 94 Trach Collar 6.00 50 01/12/17 20:12 83 01/12/17 20:00 98.0 83 20 109/56 (73) 90 01/12/17 17:40 Trach Collar 6.00 50 01/12/17 16:00 99.0 77 18 108/58 (75) 96 I/O 01/12/17 01/12/17 01/12/17 01/13/17 01/13/17 01/13/17 07:00 15:00 23:00 07:00 15:00 23:00 Intake Total 100 ml 960 ml 1200 ml 250 ml Output Total 1675 ml 1600 ml 625 ml Balance -1575 ml 960 ml -400 ml -375 ml Intake Oral 960 ml 1200 ml IV Total 100 ml 100 ml Tube Irrigant 150 ml Output Urine Total 1675 ml 1600 ml 625 ml # Bowel Movements 2 1 2 Result Diagram: 01/13/17 0847 01/13/17 0847 Objective Remarks Gen: in NAD sitting in bed comfortably NECK: t piece in place Resp: CTA B/L CV: regular rhythm abdomen: soft, nontender extremities: tr edema, good peripheral pulses sacral decubitus: - stage 4- deep, edges, clean , no foul, no bleeding 01/06 exam bilateral infragluteal area/posterior aspect of the thigh - linear open wounds edges clean, left greater than right 01/07 exam condom catheter Medications and IVs Current Medications Sodium Chloride (NS Flush) 2 ml UNSCH PRN IVF FLUSH AFTER USING IV ACCESS; Start 10/25/16 at 04:00; Stop 10/25/16 at 05:31; Status DC Sodium Chloride 1,000 ml @ 999 mls/hr BOLUS ONCE IV Last administered on 10/25 04:12; Start 10/25/16 at 04:00; Stop 10/25/16 at 05:00; Status DC Magnesium Sulfate/ Dextrose 100 ml @ 100 mls/hr ONCE ONCE IV Last administered on 10/25/16 04:19; Start 10/25/16 at 04:00; Stop 10/25/16 at 04:59 ; Status DC Methylprednisolone Sodium Succinate (SoluMEDROL INJ) 125 mg ONCE ONCE IVP Last administered on 10/25/16 04:12; Start 10/25/16 at 04:00; Stop 10/25/16 at 04:01; Status DC Albuterol/ Ipratropium (Duoneb Neb) 1 ampule Q15M INH Last administered on 10/25 04:00; Start 10/25/16 at 04:00; Stop 10/25/16 at 04:31; Status DC Ondansetron HCl (Zofran Inj) 4 mg ONCE ONCE IV PUSH Last administered on 04:12; Start 10/25/16 at 04:00; Stop 10/25/16 at 04:01; Status DC Sodium Chloride 1,000 ml @ 999 mls/hr BOLUS ONCE IV Last administered on 10/25 05:30; Start 10/25/16 at 05:00; Stop 10/25/16 at 06:00; Status DC Vancomycin HCl 2050 mg/Sodium Chloride 520.5 ml @ 250 mls/hr ONCE ONCE IV Last administered on 10/25/16 08:05; Start 10/25/16 at 05:00; Stop 10/25/16 at 07:04; Status DC Piperacillin Sod/ Tazobactam Sod 50 ml @ 100 mls/hr ONCE ONCE IV Last administered on 10/25/16 05:30; Start 10/25/16 at 05:00; Stop 10/25/16 at 05:29 ; Status DC Amlodipine Besylate (Norvasc) 5 mg HS PO Last administered on 11/03/16 21:36; Start 10/25/16 at 21:00; Stop 11/04/16 at 11:58; Status DC Lisinopril (Prinivil) 20 mg HS PO Last administered on 10/27/16 20:03; Start at 21:00; Stop 10/28/16 at 08:31; Status DC Sodium Chloride (NS Flush) 2 ml UNSCH PRN .XX FLUSH AFTER USING IV ACCESS Last administered on 11/29/16 04:16; Start 10/25/16 at 05:30; Stop 12/24/16 at 08: 50; Status DC Sodium Chloride (NS Flush) 2 ml BID .XX Last administered on 12/23/16 21:24; Start 10/25/16 at 09:00; Stop 12/24/16 at 08:50; Status DC Acetaminophen (Tylenol) 650 mg Q6H PRN PO FEVER >101F Last administered on 11/23 13:20; Start 10/25/16 at 05:30 Famotidine (Pepcid) 20 mg Q12HR PO Last administered on 10/25/16 21:08; Start 10/25/16 at 09:00; Stop 10/26/16 at 08:21; Status DC Ondansetron HCl (Zofran Inj) 4 mg Q6H PRN IV NAUSEA OR VOMITING; Start at 05:30 Zolpidem Tartrate (Ambien) 5 mg HS PRN PO INSOMNIA; Start 10/25/16 at 05:30; Stop 10/25/16 at 14:09; Status DC Albuterol/ Ipratropium (Duoneb Neb) 1 ampule Q4HR NEB INH Last administered on 10/28/16 07:57; Start 10/25/16 at 08:00; Stop 10/28/16 at 08:31; Status DC Albuterol/ Ipratropium (Duoneb Neb) 1 ampule Q2HR NEB PRN INH WHEEZING; Start 10/25/16 at 05:30; Stop 10/25/16 at 12:21; Status DC Enoxaparin Sodium (Lovenox Inj) 40 mg Q24H SQ Last administered on 10/26/16 05: 06; Start 10/25/16 at 06:00; Stop 10/26/16 at 08:21; Status DC Miscellaneous Information 1 [id number] Last administered on 10/25/16 21:10; Start 10/25/16 at 05:30 Chlorhexidine Gluconate (Chlorhexidine 2% Cloth) 3 pack Taper DAILY@04 TOP Last administered on 01/10/17 04:00; Start 10/26/16 at 04:00; Stop 10/22/17 at 03:59 Chlorhexidine Gluconate (Chlorhexidine 2% Cloth) 3 pack UNSCH PRN TOP HYGIENIC CARE; Start 10/25/16 at 05:30 Senna/Docusate Sodium (Olga-Colace) 1 tab BID PO Last administered on 10/27/16 08:21; Start 10/25/16 at 09:00; Stop 10/27/16 at 12:32; Status DC Magnesium Hydroxide (Milk Of Magnesia Liq) 30 ml Q12H PRN PO MILD - MODERATE CONSTIPATION Last administered on 10/26/16 20:52; Start 10/25/16 at 05:30 Sennosides (Senokot) 17.2 mg Q12H PRN PO MODERATE - SEVERE CONSTIPATION Last administered on 12/11/16 02:44; Start 10/25/16 at 05:30 Bisacodyl (Dulcolax Supp) 10 mg DAILY PRN RECTAL SEVERE CONSITIPATION; Start at 05:30 Lactulose (Lactulose Liq) 30 ml DAILY PRN PO SEVERE CONSITIPATION; Start at 05:30 Piperacillin Sod/ Tazobactam Sod 100 ml @ 200 mls/hr Q6H IV Last administered on 11/02/16 11:37; Start 10/25/16 at 11:00; Stop 11/02/16 at 12:45; Status DC Azithromycin 500 mg/Sodium Chloride 250 ml @ 250 mls/hr Q24H IV Last administered on 11/02/16 05:04; Start 10/25/16 at 06:00; Stop 11/02/16 at 12:45; Status DC Methylprednisolone Sodium Succinate (SoluMEDROL INJ) 40 mg Q6H IV Last administered on 10/25/16 09:27; Start 10/25/16 at 10:00; Stop 10/25/16 at 13:45 ; Status DC Iohexol (Omnipaque 350 Inj) 75 ml STK-MED ONCE IVCONTRAST Last administered on 10/25/16 06:30; Start 10/25/16 at 06:30; Stop 10/25/16 at 06:31; Status DC Albuterol Sulfate (Albuterol Neb) 2.5 mg Q2HR NEB PRN NEB DYSPNEA Last administered on 11/22/16 03:15; Start 10/25/16 at 14:00; Stop 11/23/16 at 10:42 ; Status DC Budesonide (Pulmicort Respule Neb) 0.5 mg Q12HR NEB NEB Last administered on 12/17/16 07:18; Start 10/25/16 at 20:00; Stop 12/17/16 at 11:38; Status DC Sodium Chloride (Sodium Chloride 3% Neb) 2 ml Q4HR NEB NEB Last administered on 10/30/16 16:17; Start 10/25/16 at 16:00; Stop 10/30/16 at 15:59; Status DC Etomidate (Amidate Inj) 40 mg STK-MED ONCE .ROUTE ; Start 10/25/16 at 13:17; Stop 10/25/16 at 13:18; Status DC Rocuronium Kinsey (Zemuron Inj) 100 mg STK-MED ONCE .ROUTE Last administered on 10/25/16 13:47; Start 10/25/16 at 13:17; Stop 10/25/16 at 13:18; Status DC Etomidate (Amidate Inj) 40 mg ONCE ONCE IV PUSH ; Start 10/25/16 at 13:30; Stop 10/25/16 at 13:41; Status DC Rocuronium Kinsey (Zemuron Inj) 100 mg BOLUS ONCE IV Last administered on 13:30; Start 10/25/16 at 13:30; Stop 10/25/16 at 13:40; Status DC Chlorhexidine Gluconate (Peridex 0.12% Liq) 15 ml BID@08,20 MT Last administered on 01/13/17 08:00; Start 10/25/16 at 20:00 Propofol 100 ml @ 4.08 mls/hr TITRATE PRN IV SEDATION Last administered on 10/26 06:45; Start 10/25/16 at 13:30; Stop 10/26/16 at 08:16; Status DC Fentanyl Citrate 250 ml @ 5 mls/hr TITRATE PRN IV SEDATION Last administered on 11/07/16 23:20; Start 10/25/16 at 13:30; Stop 11/08/16 at 10:13; Status DC Sodium Chloride 1,000 ml @ 100 mls/hr Q10H IV Last administered on 10/27/16 15 :25; Start 10/25/16 at 13:30; Stop 10/27/16 at 16:28; Status DC Methylprednisolone Sodium Succinate (SoluMEDROL INJ) 60 mg Q6H IV Last administered on 10/28/16 05:10; Start 10/25/16 at 16:00; Stop 10/28/16 at 08:31; Status DC Dextrose (D50w (Vial) Inj) 50 ml UNSCH PRN IV HYPOGLYCEMIA-SEE COMMENTS; Start 10/25/16 at 14:15; Stop 11/20/16 at 07:52; Status DC Glucagon (Glucagon Inj) 1 mg UNSCH PRN OTHER HYPOGLYCEMIA-SEE COMMENTS; Start 10/25/16 at 14:15; Stop 11/20/16 at 07:52; Status DC Insulin Human Regular (NovoLIN R SUPPLEMENTAL SCALE) 1 Q6HR SQ Last administered on 11/03/16 12:00; Start 10/25/16 at 18:00; Stop 11/03/16 at 16:01; Status DC Potassium Chloride 100 ml @ 25 mls/hr Q2H IV ; Start 10/25/16 at 18:00; Stop at 21:59; Status DC Cisatracurium Besylate 100 mg/ Sodium Chloride 260 ml @ 21.21 mls/ hr TITRATE PRN IV TOF 1/4 Last administered on 10/26/16 02:50; Start 10/25/16 at 18:00; Stop 10/26/16 at 08:14; Status DC Midazolam HCl 100 ml @ 2 mls/hr TITRATE PRN IV SEDATION Last administered on 03:47; Start 10/25/16 at 16:15; Stop 11/03/16 at 13:00; Status DC Sodium Chloride (NS Flush) DAILY IVF Last administered on 01/13/17 09:00; Start 10/26/16 at 09:00 Sodium Chloride (NS Flush) UNSCH PRN IVF SEE PROTOCOL Last administered on 21:42; Start 10/25/16 at 16:45 Epoprostenol Sodium 87.5 ml/ Sodium Chloride 100 ml @ 8 mls/hr Q8H NEB Last administered on 10/27/16 08:20; Start 10/25/16 at 18:00; Stop 10/27/16 at 08:42; Status DC Protein (Beneprotein Powder) 2 pack TID G-TUBE Last administered on 11/12/16 18:00; Start 10/26/16 at 09:00; Stop 11/13/16 at 07:48; Status DC Cisatracurium Besylate 100 mg/ Sodium Chloride 250 ml @ 23.47 mls/ hr TITRATE PRN IV TOF goal Last administered on 11/02/16 07:10; Start 10/26/16 at 08:15; Stop 11/02/16 at 12:52; Status DC Propofol 100 ml @ 4.695 mls/ hr TITRATE PRN IV SEDATION Last administered on 12/03/16 07:47; Start 10/26/16 at 08:30; Stop 12/03/16 at 09:00; Status DC Enoxaparin Sodium (Lovenox Inj) 40 mg Q12HR SQ Last administered on 11/08/16 08:36; Start 10/26/16 at 21:00; Stop 11/08/16 at 10:13; Status DC Potassium Phosphate 15 mmol/ Sodium Chloride 155 ml @ 38.75 mls/ hr ONCE ONCE IV Last administered on 10/26/16 09:19; Start 10/26/16 at 08:45; Stop 10/26/16 at 12:44; Status DC Calcium Gluconate 1 gm/Dextrose 110 ml @ 110 mls/hr ONCE ONCE IV Last administered on 10/26/16 09:00; Start 10/26/16 at 09:00; Stop 10/26/16 at 09:59; Status DC Famotidine (Pepcid Inj) 20 mg Q12H IV PUSH Last administered on 11/16/16 08:19 ; Start 10/26/16 at 09:00; Stop 11/16/16 at 12:12; Status DC Artificial Tears (Lacrilube Opht Oint) 1 applic Q12HR EACH EYE Last administered on 01/13/17 09:00; Start 10/26/16 at 10:00 Epoprostenol Sodium 70 ml/ Sodium Chloride 100 ml @ 8 mls/hr Q8H NEB Last administered on 10/28/16 02:28; Start 10/27/16 at 16:00; Stop 10/28/16 at 09:12; Status DC Docusate Sodium (Colace Liq) 100 mg Q12HR PO Last administered on 11/09/16 21: 03; Start 10/27/16 at 21:00; Stop 11/10/16 at 09:22; Status DC Sennosides (Senna Liq) 8.8 mg BID PEG Last administered on 11/09/16 21:05; Start 10/27/16 at 21:00; Stop 11/10/16 at 09:22; Status DC Polyethylene Glycol (Miralax) 17 gm BID NG Last administered on 11/09/16 21:05 ; Start 10/27/16 at 21:00; Stop 11/10/16 at 09:22; Status DC Lactulose (Lactulose Liq) 30 ml QID PO Last administered on 11/09/16 17:39; Start 10/27/16 at 13:00; Stop 11/10/16 at 09:02; Status DC Sodium Phosphate 15 mmol/Sodium Chloride 155 ml @ 38.75 mls/ hr ONCE ONCE IV Last administered on 10/27/16 14:00; Start 10/27/16 at 14:00; Stop 10/27/16 at 17: 59; Status DC Furosemide (Lasix Inj) 40 mg ONCE ONCE IV PUSH Last administered on 10/27/16 13:54; Start 10/27/16 at 13:00; Stop 10/27/16 at 13:01; Status DC Calcium Gluconate (Calcium Gluconate Inj) 1 gm ONCE ONCE SLOW IVP Last administered on 10/28/16 07:40; Start 10/28/16 at 06:45; Stop 10/28/16 at 06:46; Status DC Insulin Human Regular (NovoLIN R INJ) 10 units ONCE ONCE IV PUSH Last administered on 10/28/16 07:38; Start 10/28/16 at 06:45; Stop 10/28/16 at 06:46; Status DC Dextrose (D50w (Vial) Inj) 50 ml ONCE ONCE IV PUSH Last administered on 07:38; Start 10/28/16 at 06:45; Stop 10/28/16 at 06:46; Status DC Sodium Bicarbonate (Sodium Bicarbonate 8.4% Inj) 50 meq ONCE ONCE SLOW IVP Last administered on 10/28/16 07:38; Start 10/28/16 at 06:45; Stop 10/28/16 at 06: 46; Status DC Sodium Polystyrene Sulfonate (Kayexalate Liq) 15 gm ONCE ONCE NG Last administered on 10/28/16 07:40; Start 10/28/16 at 06:45; Stop 10/28/16 at 06:46; Status DC Albuterol Sulfate (Albuterol Neb) 2.5 mg ONCE ONCE NEB Last administered on 06:53; Start 10/28/16 at 06:45; Stop 10/28/16 at 06:46; Status DC Albuterol/ Ipratropium (Duoneb Neb) 1 ampule Q4HR NEB INH Last administered on 11/01/16 11:21; Start 10/28/16 at 12:00; Stop 11/01/16 at 11:59; Status DC Methylprednisolone Sodium Succinate (SoluMEDROL INJ) 60 mg Q8HR IV Last administered on 10/31/16 05:08; Start 10/28/16 at 14:00; Stop 10/31/16 at 09:14; Status DC Hydralazine HCl (Apresoline) 25 mg Q8HR PO Last administered on 11/12/16 05:04 ; Start 10/28/16 at 14:00; Stop 11/12/16 at 07:25; Status DC Isosorbide Dinitrate (Isordil) 10 mg Q8HR PO Last administered on 11/23/16 05: 27; Start 10/28/16 at 14:00; Stop 12/24/16 at 08:50; Status DC Acetazolamide Sodium (Diamox Inj) 250 mg ONCE ONCE IV PUSH Last administered on 10/28/16 09:02; Start 10/28/16 at 09:00; Stop 10/28/16 at 09:08; Status DC Epoprostenol Sodium 87.5 ml/ Sodium Chloride 100 ml @ 8 mls/hr Q8H NEB Last administered on 10/31/16 04:32; Start 10/28/16 at 10:00; Stop 10/31/16 at 09:52; Status DC Methylnaltrexone Kinsey (Relistor Inj) 12 mg ONCE ONCE SQ Last administered on 10/28/16 10:49; Start 10/28/16 at 10:00; Stop 10/28/16 at 10:01; Status DC Mineral Oil (Kondremul Liq) 30 ml ONCE ONCE PO ; Start 10/28/16 at 09:15; Stop 10/28/16 at 09:16; Status Cancel Mineral Oil (Mineral Oil Liq) 30 ml ONCE ONCE PO Last administered on 10:50; Start 10/28/16 at 11:00; Stop 10/28/16 at 11:01; Status DC Bumetanide (Bumex Inj) 1 mg Q8H IV PUSH Last administered on 11/02/16 12:19; Start 10/29/16 at 13:00; Stop 11/02/16 at 12:51; Status DC Acetazolamide Sodium (Diamox Inj) 500 mg DAILY IV PUSH Last administered on 10/30 08:30; Start 10/29/16 at 12:45; Stop 10/31/16 at 08:59; Status DC Linezolid 300 ml @ 300 mls/hr Q12H IV Last administered on 11/10/16 14:02; Start 10/29/16 at 14:00; Stop 11/11/16 at 00:10; Status DC Hydralazine HCl (Apresoline Inj) 20 mg Q4H PRN IV PUSH SBP>160, DBP>90 Last administered on 11/04/16 12:04; Start 10/30/16 at 23:45; Stop 11/15/16 at 16:07 ; Status DC Methylprednisolone Sodium Succinate (SoluMEDROL INJ) 40 mg Q8HR IV Last administered on 11/02/16 05:04; Start 10/31/16 at 14:00; Stop 11/02/16 at 12:53; Status DC Epoprostenol Sodium 52.5 ml/ Sodium Chloride 100 ml @ 8 mls/hr Q8H NEB Last administered on 10/31/16 11:18; Start 10/31/16 at 10:00; Stop 10/31/16 at 17:59; Status DC Epoprostenol Sodium 35 ml/ Sodium Chloride 100 ml @ 8 mls/hr Q8H NEB ; Start 10/31/16 at 18:00; Stop 11/01/16 at 01:59; Status DC Epoprostenol Sodium 17.5 ml/ Sodium Chloride 100 ml @ 8 mls/hr Q8H NEB Last administered on 10/31/16 23:28; Start 11/01/16 at 02:00; Stop 11/01/16 at 10:00; Status DC Insulin Detemir (Levemir Inj) 15 units Q12H SQ Last administered on 11/02/16 12 :19; Start 11/01/16 at 13:00; Stop 11/02/16 at 12:52; Status DC Albuterol/ Ipratropium (Duoneb Neb) 1 ampule Q6HR NEB NEB Last administered on 11/06/16 08:33; Start 11/02/16 at 12:45; Stop 11/06/16 at 10:52; Status DC Ceftriaxone Sodium 2000 mg/ Sodium Chloride 100 ml @ 200 mls/hr Q24H IV Last administered on 11/09/16 14:16; Start 11/02/16 at 14:00; Stop 11/09/16 at 17:22 ; Status DC Bumetanide (Bumex Inj) 1 mg Q12H IV PUSH Last administered on 11/04/16 12:22; Start 11/02/16 at 13:00; Stop 11/04/16 at 13:00; Status DC Insulin Detemir (Levemir Inj) 20 units Q12H SQ Last administered on 11/05/16 00:23; Start 11/02/16 at 13:00; Stop 11/05/16 at 11:10; Status DC Methylprednisolone Sodium Succinate (SoluMEDROL INJ) 40 mg Q12HR IV Last administered on 11/08/16 20:33; Start 11/02/16 at 21:00; Stop 11/09/16 at 08:07 ; Status DC Oxycodone HCl (Roxicodone Intensol Liq) 10 mg Q4H PO Last administered on 06:35; Start 11/03/16 at 15:00; Stop 11/08/16 at 10:13; Status DC Haloperidol Lactate (Haldol Inj) 5 mg Q4H PRN IV PUSH agitation Last administered on 12/31/16 23:19; Start 11/03/16 at 13:00 Quetiapine Fumarate (SEROquel) 100 mg Q8HR PO Last administered on 11/08/16 05 :37; Start 11/03/16 at 15:00; Stop 11/08/16 at 10:13; Status DC Labetalol HCl (Trandate Inj) 20 mg Q15M PRN IV PUSH sbp > 160 Last administered on 11/30/16 09:39; Start 11/03/16 at 13:00; Stop 12/02/16 at 09:58 ; Status DC Hydralazine HCl (Apresoline Inj) 10 mg Q30M PRN IV PUSH sbp > 160 Last administered on 11/06/16 02:25; Start 11/03/16 at 13:00; Stop 11/15/16 at 16:07 ; Status DC Clonidine (Catapres) 0.2 mg Q8HR PO Last administered on 11/04/16 05:11; Start 11/03/16 at 15:00; Stop 11/04/16 at 11:59; Status DC Acetazolamide Sodium (Diamox Inj) 500 mg Q8H IV PUSH Last administered on 07:12; Start 11/03/16 at 15:00; Stop 11/04/16 at 07:01; Status DC Dextrose (D50w (Vial) Inj) 25 ml UNSCH PRN IV PUSH HYPOGLYCEMIA-SEE COMMENTS; Start 11/03/16 at 13:00; Stop 11/20/16 at 07:52; Status DC Insulin Human Regular (NovoLIN R SUPPLEMENTAL SCALE) 1 Q4HR SQ Last administered on 11/19/16 20:00; Start 11/03/16 at 16:00; Stop 11/20/16 at 07:40 ; Status DC Bumetanide (Bumex Inj) 1 mg Q8H IV PUSH Last administered on 11/08/16 05:38; Start 11/04/16 at 20:00; Stop 11/08/16 at 10:09; Status DC Acetazolamide Sodium (Diamox Inj) 500 mg Q8H IV PUSH Last administered on 06:11; Start 11/04/16 at 15:00; Stop 11/05/16 at 07:01; Status DC Amlodipine Besylate (Norvasc) 10 mg DAILY PO Last administered on 11/07/16 08: 00; Start 11/04/16 at 13:00; Stop 11/07/16 at 15:19; Status DC Clonidine (Catapres) 0.3 mg Q8HR PO Last administered on 11/18/16 04:58; Start 11/04/16 at 14:00; Stop 11/18/16 at 08:49; Status DC Nicardipine HCl 25 mg/Sodium Chloride 260 ml @ 52 mls/hr TITRATE PRN IV Blood pressure management; Start 11/04/16 at 12:00; Stop 11/16/16 at 12:12; Status DC Propranolol HCl (Inderal) 40 mg Q8HR PO Last administered on 11/11/16 05:15; Start 11/04/16 at 14:00; Stop 11/11/16 at 09:35; Status DC Alteplase, Recombinant (Cathflo Activase Inj) 2 mg NOW ONCE IV FLUSH Last administered on 11/04/16 21:49; Start 11/04/16 at 20:45; Stop 11/04/16 at 20:46 ; Status DC Alteplase, Recombinant (Cathflo Activase Inj) 2 mg NOW ONCE IV FLUSH ; Start at 21:00; Stop 11/04/16 at 21:01; Status DC Potassium Chloride 100 ml @ 50 mls/hr Q2H PRN IV For Potassium 2.8 - 3.2 mEq/ L Last administered on 11/29/16 09:27; Start 11/05/16 at 04:45; Stop 01/11/17 at 12:32; Status DC Potassium Chloride 100 ml @ 50 mls/hr Q2H PRN IV For Potassium 2.8 - 3.2 mEq/ L Last administered on 11/24/16 13:18; Start 11/05/16 at 04:45; Stop 01/11/17 at 12:32; Status DC Potassium Bicarb/ Potassium Chloride (K-Lyte Cl Eff) 50 meq UNSCH PRN PO For Potassium 3.3 - 3.5 mEq/L Last administered on 12/20/16 09:57; Start 11/05/16 at 04:45; Stop 01/11/17 at 12:32; Status DC Potassium Chloride 100 ml @ 25 mls/hr UNSCH PRN IV For Potassium 3.3 - 3.5 mEq /L Last administered on 12/22/16 06:32; Start 11/05/16 at 04:45; Stop at 12:32; Status DC Potassium Chloride 100 ml @ 50 mls/hr Q2H PRN IV For Potassium 3.3 - 3.5 mEq/L ; Start 11/05/16 at 04:45; Stop 01/11/17 at 12:32; Status DC Magnesium Sulfate 4 gm/Sodium Chloride 100 ml @ 50 mls/hr UNSCH PRN IV For Magnesium 0.9 - 1.1 mg/dL; Start 11/05/16 at 04:45; Stop 01/11/17 at 12:32; Status DC Magnesium Oxide (Mag-Ox) 800 mg UNSCH PRN PO For Magnesium 1.2 - 1.6 mg/dL; Start 11/05/16 at 04:45; Stop 01/11/17 at 12:32; Status DC Magnesium Sulfate 2 gm/Sodium Chloride 100 ml @ 50 mls/hr UNSCH PRN IV For Magnesium 1.2 - 1.6 mg/dL; Start 11/05/16 at 04:45; Stop 01/11/17 at 12:32; Status DC Potassium Phosphate (K-Phos) 2,000 mg Q4H PRN PO For Phosphorus < 2.5 mg/dL; Start 11/05/16 at 04:45; Stop 01/11/17 at 12:32; Status DC Sodium Phosphate 30 mmol/Sodium Chloride 250 ml @ 42 mls/hr UNSCH PRN IV For Phosphorus < 2.5 mg/dL Last administered on 12/04/16 09:28; Start 11/05/16 at 04:45; Stop 01/11/17 at 12:32; Status DC Potassium Phosphate (K-Phos) 2,000 mg UNSCH PRN PO/TUBE SEE LABEL COMMENTS; Start 11/05/16 at 04:45; Stop 01/11/17 at 12:32; Status DC Potassium Phosphate 30 mmol/ Sodium Chloride 260 ml @ 42 mls/hr UNSCH PRN IV SEE LABEL COMMENTS; Start 11/05/16 at 04:45; Stop 01/11/17 at 12:32; Status DC Acetazolamide Sodium (Diamox Inj) 500 mg Q8H IV PUSH Last administered on 05:32; Start 11/05/16 at 12:00; Stop 11/06/16 at 04:01; Status DC Insulin Detemir (Levemir Inj) 30 units Q12H SQ Last administered on 11/11/16 23:59; Start 11/05/16 at 13:00; Stop 11/12/16 at 07:25; Status DC Sodium Chloride (NS Flush) See Protocol DAILY IV FLUSH Last administered on 08:20; Start 11/06/16 at 09:00; Stop 11/16/16 at 14:16; Status DC Sodium Chloride (NS Flush) See Protocol UNSCH PRN IV FLUSH SEE PROTOCOL TABLE; Start 11/05/16 at 20:00; Stop 11/16/16 at 14:16; Status DC Heparin Sodium (Porcine) (Heparin Central Flush) See Protocol DAILY IV FLUSH ; Start 11/06/16 at 09:00; Stop 11/16/16 at 14:16; Status DC Heparin Sodium (Porcine) (Heparin Central Flush) See Protocol UNSCH PRN IV FLUSH SEE PROTOCOL TABLE; Start 11/05/16 at 20:00; Stop 11/16/16 at 14:16; Status DC Sodium Chloride (NS Flush) UNSCH PRN IV FLUSH SEE PROTOCOL TABLE; Start at 20:00; Stop 11/16/16 at 14:16; Status DC Diltiazem HCl (Cardizem Inj) 15 mg ONCE ONCE IV PUSH Last administered on 11/06 04:14; Start 11/06/16 at 04:15; Stop 11/06/16 at 04:16; Status DC Diltiazem HCl 125 mg/Sodium Chloride 125 ml @ 5 mls/hr TITRATE PRN IV Tachycardia Last administered on 11/16/16 02:17; Start 11/06/16 at 04:15; Stop 11/16/16 at 12:03; Status DC Albuterol/ Ipratropium (Duoneb Neb) 1 ampule Q6HR NEB NEB Last administered on 11/10/16 15:14; Start 11/06/16 at 16:00; Stop 11/10/16 at 15:59; Status DC Diltiazem HCl (Cardizem) 60 mg Q6HR PO Last administered on 11/15/16 13:11; Start 11/07/16 at 18:00; Stop 11/15/16 at 16:20; Status DC Bumetanide (Bumex Inj) 1 mg Q12H IV PUSH Last administered on 11/09/16 23:56; Start 11/08/16 at 12:00; Stop 11/10/16 at 07:12; Status DC Heparin Sodium/ Dextrose 250 ml @ 10 mls/hr TITRATE PRN IV Coagulation management Last administered on 11/21/16 14:15; Start 11/08/16 at 10:15; Stop 11/22/16 at 06:00; Status DC Piperacillin Sod/ Tazobactam Sod 100 ml @ 200 mls/hr Q6H IV Last administered on 11/11/16 13:30; Start 11/08/16 at 13:00; Stop 11/11/16 at 15:51; Status DC Vancomycin HCl 1250 mg/Sodium Chloride 262.5 ml @ 262.5 mls/ hr ONCE ONCE IV ; Start 11/08/16 at 14:00; Stop 11/08/16 at 14:00; Status DC Pharmacy Profile Note 0 ml @ 0 mls/hr UNSCH OTHER ; Start 11/08/16 at 11:45; Stop 11/10/16 at 09:22; Status DC Vancomycin HCl 2250 mg/Sodium Chloride 522.5 ml @ 257.5 mls/ hr Q24H IV Last administered on 11/09/16 14:13; Start 11/08/16 at 14:00; Stop 11/10/16 at 09:22 ; Status DC Miscellaneous Information SPECIFIC LAB TO BE ... ONCE ONCE .XX ; Start 11/11 at 13:45; Stop 11/11/16 at 13:46; Status Cancel Methylprednisolone Sodium Succinate (SoluMEDROL INJ) 40 mg DAILY IV Last administered on 12/02/16 08:19; Start 11/09/16 at 09:00; Stop 12/03/16 at 09:11 ; Status DC Piperacillin Sod/ Tazobactam Sod 100 ml @ 200 mls/hr Q6H IV ; Start 11/10/16 at 08:00; Stop 11/10/16 at 08:00; Status DC Diltiazem HCl (Cardizem Inj) 20 mg NOW ONCE IV Last administered on 11/11/16 00:24; Start 11/11/16 at 00:15; Stop 11/11/16 at 00:16; Status DC Micafungin Sodium 150 mg/Sodium Chloride 100 ml @ 100 mls/hr Q24H IV ; Start at 01:00; Stop 11/11/16 at 01:00; Status DC Micafungin Sodium 150 mg/Sodium Chloride 100 ml @ 100 mls/hr Q24H IV Last administered on 11/12/16 00:36; Start 11/11/16 at 02:00; Stop 11/12/16 at 17:46 ; Status DC Amiodarone HCl 150 mg/Dextrose 103 ml @ 600 mls/hr Q11M ONCE IV Last administered on 11/11/16 01:41; Start 11/11/16 at 01:18; Stop 11/11/16 at 01:28 ; Status DC Amiodarone HCl 450 mg/Dextrose 250 ml @ 33 mls/hr Q7H35M IV Last administered on 11/11/16 11:01; Start 11/11/16 at 01:28; Stop 11/11/16 at 12:19; Status DC Metoprolol Tartrate (Lopressor) 50 mg Q12HR PO Last administered on 11/11/16 20:05; Start 11/11/16 at 10:00; Stop 11/12/16 at 07:25; Status DC Pharmacy Profile Note 0 ml @ 0 mls/hr UNSCH OTHER ; Start 11/11/16 at 14:00; Stop 11/12/16 at 17:46; Status DC Vancomycin HCl 2000 mg/Sodium Chloride 520 ml @ 250 mls/hr Q12H IV Last administered on 11/12/16 05:04; Start 11/11/16 at 18:00; Stop 11/12/16 at 17:46 ; Status DC Miscellaneous Information SPECIFIC LAB TO BE DRAWN:VANCOMY... ONCE ONCE .XX Last administered on 11/12/16 03:13; Start 11/12/16 at 05:45; Stop 11/12/16 at 05:46; Status DC Piperacillin Sod/ Tazobactam Sod 100 ml @ 200 mls/hr Q6H IV Last administered on 11/12/16 13:07; Start 11/11/16 at 20:00; Stop 11/12/16 at 17:46; Status DC Insulin Detemir (Levemir Inj) 35 units Q12H SQ Last administered on 11/14/16 00:50; Start 11/12/16 at 13:00; Stop 11/14/16 at 06:59; Status DC Metoprolol Tartrate (Lopressor) 50 mg Q8H PO Last administered on 11/16/16 08: 19; Start 11/12/16 at 09:00; Stop 11/16/16 at 12:12; Status DC Sodium Chloride 500 ml @ 500 mls/hr BOLUS ONCE IV Last administered on 07:15; Start 11/12/16 at 07:15; Stop 11/12/16 at 08:14; Status DC Digoxin (Lanoxin Inj) 0.25 mg ONCE ONCE IV PUSH Last administered on 08:00; Start 11/12/16 at 08:00; Stop 11/12/16 at 08:01; Status DC Albuterol/ Ipratropium (Duoneb Neb) 1 ampule Q4HR NEB NEB Last administered on 11/15/16 14:46; Start 11/12/16 at 08:00; Stop 11/15/16 at 16:02; Status DC Amiodarone HCl 150 mg/Dextrose 103 ml @ 600 mls/hr Q11M ONCE IV Last administered on 11/12/16 09:16; Start 11/12/16 at 09:16; Stop 11/12/16 at 09:26 ; Status DC Amiodarone HCl 450 mg/Dextrose 250 ml @ 33 mls/hr Q7H35M IV Last administered on 11/17/16 13:11; Start 11/12/16 at 09:26; Stop 11/18/16 at 08:48; Status DC Ceftriaxone Sodium 2000 mg/ Sodium Chloride 100 ml @ 200 mls/hr Q24H IV Last administered on 11/20/16 18:51; Start 11/12/16 at 18:00; Stop 11/20/16 at 23:55 ; Status DC Fluconazole/ Sodium Chloride 100 ml @ 100 mls/hr Q24H IV Last administered on 11/18/16 20:22; Start 11/12/16 at 20:00; Stop 11/19/16 at 19:59; Status DC Sodium Chloride 1,000 ml @ 999 mls/hr BOLUS ONCE IV Last administered on 11/13 09:08; Start 11/13/16 at 07:45; Stop 11/13/16 at 08:45; Status DC Fentanyl Citrate 250 ml @ 5 mls/hr TITRATE PRN IV SEDATION Last administered on 12/03/16 06:20; Start 11/13/16 at 14:00; Stop 12/03/16 at 09:00; Status DC Insulin Detemir (Levemir Inj) 45 units Q12H SQ Last administered on 11/15/16 13:11; Start 11/14/16 at 13:00; Stop 11/16/16 at 11:55; Status DC Bumetanide (Bumex Inj) 2 mg ONCE ONCE IV PUSH Last administered on 11/14/16 11:09; Start 11/14/16 at 10:45; Stop 11/14/16 at 10:52; Status DC Albuterol/ Ipratropium (Duoneb Neb) 1 ampule Q4HR NEB NEB Last administered on 11/19/16 16:00; Start 11/15/16 at 20:00; Stop 11/19/16 at 19:59; Status DC Hydralazine HCl (Apresoline Inj) 10 mg Q1HR PRN IV PUSH sbp > 160 Last administered on 12/15/16 03:34; Start 11/15/16 at 16:15 Nitroglycerin (Nitroglycerin 2% Oint) 2 inch Q6HR PRN TOPICAL SBP>160, DBP>90; Start 11/15/16 at 16:15; Stop 12/24/16 at 08:50; Status DC Labetalol HCl (Trandate Inj) 10 mg Q1HR PRN IV PUSH SBP>160, DBP>90, HR>65 Last administered on 12/15/16 03:18; Start 11/15/16 at 16:15 Diltiazem HCl (Cardizem) 30 mg Q6HR PO ; Start 11/15/16 at 18:00; Stop 11/15/16 at 18:00; Status DC Diltiazem HCl (Cardizem) 90 mg Q6HR PO Last administered on 01/08/17 13:24; Start 11/15/16 at 18:00; Stop 01/08/17 at 13:58; Status DC Insulin Detemir (Levemir Inj) 55 units Q12H SQ Last administered on 11/17/16 13:00; Start 11/16/16 at 13:00; Stop 11/17/16 at 13:21; Status DC Esmolol HCl/ Sodium Chloride 250 ml @ 44.25 mls/ hr TITRATE PRN IV Blood Pressure Management Last administered on 11/17/16 12:07; Start 11/16/16 at 12: 15; Stop 11/19/16 at 07:48; Status DC Midazolam HCl 100 ml @ 2 mls/hr TITRATE PRN IV SEDATION Last administered on 05:52; Start 11/16/16 at 12:15; Stop 12/03/16 at 09:00; Status DC Metoprolol Tartrate (Lopressor) 50 mg Q6HR PO Last administered on 01/08/17 05:32; Start 11/16/16 at 18:00; Stop 01/08/17 at 13:51; Status DC Famotidine (Pepcid) 20 mg BID NG Last administered on 01/13/17 10:30; Start 11/16/16 at 21:00 Digoxin (Lanoxin Inj) 0.5 mg ONCE ONCE IV PUSH Last administered on 11/16/16 14:27; Start 11/16/16 at 12:30; Stop 11/16/16 at 13:01; Status DC Digoxin (Lanoxin Inj) 0.25 mg ONCE ONCE IV PUSH Last administered on 19:16; Start 11/16/16 at 18:30; Stop 11/16/16 at 18:31; Status DC Sodium Chloride (NS Flush) See Protocol DAILY IV FLUSH Last administered on 08:04; Start 11/17/16 at 09:00; Stop 12/24/16 at 08:50; Status DC Sodium Chloride (NS Flush) See Protocol UNSCH PRN IV FLUSH SEE PROTOCOL TABLE; Start 11/16/16 at 14:30; Stop 12/24/16 at 08:50; Status DC Heparin Sodium (Porcine) (Heparin Central Flush) See Protocol DAILY IV FLUSH Last administered on 12/23/16 08:03; Start 11/17/16 at 09:00; Stop 12/24/16 at 08:50; Status DC Heparin Sodium (Porcine) (Heparin Central Flush) See Protocol UNSCH PRN IV FLUSH SEE PROTOCOL TABLE; Start 11/16/16 at 14:30; Stop 12/24/16 at 08:50; Status DC Sodium Chloride (NS Flush) UNSCH PRN IV FLUSH SEE PROTOCOL TABLE; Start at 14:30; Stop 12/24/16 at 08:50; Status DC Insulin Detemir (Levemir Inj) 75 units Q12H SQ Last administered on 11/18/16 00:17; Start 11/18/16 at 01:00; Stop 11/18/16 at 12:42; Status DC Bumetanide (Bumex Inj) 1 mg ONCE ONCE IV PUSH Last administered on 11/17/16 15:11; Start 11/17/16 at 13:30; Stop 11/17/16 at 13:31; Status DC Amiodarone HCl (Cordarone) 400 mg Q12HR OG-TUBE Last administered on 11/29/16 07:53; Start 11/18/16 at 09:00; Stop 11/30/16 at 11:08; Status DC Clonidine (Catapres) 0.2 mg Q8HR OG-TUBE Last administered on 11/18/16 14:05; Start 11/18/16 at 14:00; Stop 11/18/16 at 21:29; Status DC Calcium Chloride 1 gm/Sodium Chloride 110 ml @ 110 mls/hr ONCE ONCE IV Last administered on 11/18/16 10:27; Start 11/18/16 at 10:00; Stop 11/18/16 at 10:59 ; Status DC Sodium Chloride (Sodium Chloride) 1 gm ONCE ONCE PO Last administered on 14:04; Start 11/18/16 at 10:00; Stop 11/18/16 at 10:01; Status DC Epoprostenol Sodium 87.5 ml/ Sodium Chloride 100 ml @ 8 mls/hr Q8H NEB ; Start 11/18/16 at 09:00; Status Cancel Epoprostenol Sodium 87.5 ml/ Sodium Chloride 100 ml @ 8 mls/hr Q8H NEB Last administered on 11/23/16 07:26; Start 11/18/16 at 09:00; Stop 11/24/16 at 09:59 ; Status DC Digoxin (Lanoxin) 0.125 mg ONCE ONCE PO Last administered on 11/18/16 10:27; Start 11/18/16 at 09:30; Stop 11/18/16 at 09:49; Status DC Digoxin (Lanoxin) 0.125 mg DAILY PO Last administered on 01/13/17 10:12; Start 11/19/16 at 09:00; Status Future hold Insulin Detemir (Levemir Inj) 62 units Q12H SQ Last administered on 11/18/16 13:00; Start 11/18/16 at 13:00; Stop 12/24/16 at 08:50; Status DC Clonidine (Catapres) 0.2 mg Q8HR OG-TUBE Last administered on 12/06/16 05:54 ; Start 11/18/16 at 22:00; Stop 12/06/16 at 10:42; Status DC Diltiazem HCl (Cardizem Inj) 25 mg STK-MED ONCE .ROUTE Last administered on 11:15; Start 11/19/16 at 11:09; Stop 11/19/16 at 11:10; Status DC Diltiazem HCl (Cardizem Inj) 10 mg NOW ONCE IV PUSH ; Start 11/19/16 at 13:15; Stop 11/19/16 at 13:16; Status DC Dextrose (D50w (Vial) Inj) 50 ml UNSCH PRN IV PUSH HYPOGLYCEMIA-SEE COMMENTS Last administered on 12/17/16 04:15; Start 11/20/16 at 07:45 Glucagon (Glucagon Inj) 1 mg UNSCH PRN OTHER HYPOGLYCEMIA-SEE COMMENTS; Start 11/20/16 at 07:45 Insulin Human Regular (NovoLIN R SUPPLEMENTAL SCALE) 1 Q4H SQ ; Start 11/20/16 at 07:45; Stop 11/20/16 at 07:53; Status DC Insulin Human Regular (NovoLIN R SUPPLEMENTAL SCALE) 1 Q4HR SQ Last administered on 12/01/16 20:00; Start 11/20/16 at 08:00; Stop 12/02/16 at 09:36 ; Status DC Digoxin (Lanoxin Inj) 0.25 mg ONCE ONCE IV PUSH Last administered on 12:55; Start 11/21/16 at 12:30; Stop 11/21/16 at 12:31; Status DC Bumetanide (Bumex Inj) 1 mg ONCE ONCE IV PUSH Last administered on 11/22/16 08:04; Start 11/22/16 at 07:30; Stop 11/22/16 at 07:31; Status DC Acetazolamide Sodium (Diamox Inj) 500 mg ONCE ONCE IV PUSH Last administered on 11/22/16 07:55; Start 11/22/16 at 07:30; Stop 11/22/16 at 07:31; Status DC Albuterol/ Ipratropium (Duoneb Neb) 1 ampule Q4HR NEB NEB Last administered on 11/26/16 03:35; Start 11/22/16 at 08:00; Stop 11/26/16 at 07:59; Status DC Rocuronium Kinsey (Zemuron Inj) 50 mg BOLUS ONCE IV ; Start 11/22/16 at 08:15 ; Stop 11/22/16 at 08:33; Status DC Fentanyl Citrate (fentaNYL INJ) 250 mcg ONCE ONCE IV PUSH ; Start 11/22/16 at 08:15; Stop 11/22/16 at 08:33; Status DC Heparin Sodium/ Dextrose 250 ml @ 10 mls/hr TITRATE IV Last administered on 15:58; Start 11/22/16 at 17:45; Stop 12/10/16 at 12:59; Status DC Heparin Sodium (Porcine) (Heparin Inj) 5,000 units UNSCH PRN IV PUSH aPTT less than 25; Start 11/22/16 at 17:45; Stop 12/10/16 at 12:59; Status DC Heparin Sodium (Porcine) (Heparin Inj) 2,500 units UNSCH PRN IV PUSH aPTT 25 to 39 Last administered on 11/28/16 16:01; Start 11/22/16 at 17:45; Stop 12/10 at 12:59; Status DC Heparin Sodium/ Dextrose 250 ml @ 10 mls/hr TITRATE PRN IV Coagulation management; Start 11/22/16 at 20:15; Status Cancel Bumetanide (Bumex Inj) 1 mg ONCE ONCE IV PUSH Last administered on 11/23/16 07:40; Start 11/23/16 at 07:15; Stop 11/23/16 at 07:29; Status DC Albuterol/ Ipratropium (Duoneb Neb) 1 ampule Q2HR NEB PRN NEB SOB/WHEEZING Last administered on 11/30/16 03:34; Start 11/23/16 at 10:45; Stop 11/30/16 at 11:08; Status DC Lidocaine HCl (Xylocaine 1% Inj (50 ml)) 50 ml STK-MED ONCE .ROUTE ; Start 11/23 at 11:26; Stop 11/23/16 at 11:27; Status DC Vancomycin HCl 1000 mg/Sodium Chloride 250 ml @ 250 mls/hr Q12H IV ; Start at 15:15; Stop 11/23/16 at 16:46; Status DC Pharmacy Profile Note 0 ml @ 0 mls/hr UNSCH OTHER ; Start 11/23/16 at 15:15; Stop 11/26/16 at 14:22; Status DC Piperacillin Sod/ Tazobactam Sod 100 ml @ 200 mls/hr Q6H IV Last administered on 12/12/16 00:47; Start 11/23/16 at 17:00; Stop 12/11/16 at 23:55; Status DC Vancomycin HCl 2000 mg/Sodium Chloride 520 ml @ 250 mls/hr Q12H IV ; Start at 18:00; Stop 11/23/16 at 21:06; Status DC Vancomycin HCl 500 mg/Sodium Chloride 100 ml @ 200 mls/hr ONCE ONCE IV Last administered on 11/23/16 22:00; Start 11/23/16 at 22:00; Stop 11/23/16 at 22:29 ; Status DC Vancomycin HCl 2500 mg/Sodium Chloride 525 ml @ 257.5 mls/ hr Q12H IV Last administered on 11/26/16 08:36; Start 11/24/16 at 09:00; Stop 11/26/16 at 14:22 ; Status DC Miscellaneous Information SPECIFIC LAB TO BE PREMA... ONCE ONCE .XX ; Start 11/25 at 08:45; Stop 11/25/16 at 08:47; Status DC Epoprostenol Sodium 70 ml/ Sodium Chloride 100 ml @ 8 mls/hr Q8H NEB Last administered on 11/24/16 10:36; Start 11/24/16 at 10:00; Stop 11/24/16 at 17:59 ; Status DC Epoprostenol Sodium 52.5 ml/ Sodium Chloride 100 ml @ 8 mls/hr Q8H NEB Last administered on 11/24/16 20:00; Start 11/24/16 at 18:00; Stop 11/25/16 at 01:59 ; Status DC Epoprostenol Sodium 35 ml/ Sodium Chloride 100 ml @ 8 mls/hr Q8H NEB Last administered on 11/25/16 02:02; Start 11/25/16 at 02:00; Stop 11/25/16 at 09:59 ; Status DC Epoprostenol Sodium 17.5 ml/ Sodium Chloride 100 ml @ 8 mls/hr Q8H NEB Last administered on 11/25/16 09:40; Start 11/25/16 at 10:00; Stop 11/25/16 at 17:59 ; Status DC Miscellaneous Information SPECIFIC LAB TO BE DRAWN:VANCOMYCIN TROUGH DATE TO... ONCE ONCE .XX ; Start 11/27/16 at 08:45; Stop 11/27/16 at 08:45; Status DC Bumetanide (Bumex Inj) 1 mg ONCE ONCE IV PUSH Last administered on 11/26/16 08:34; Start 11/26/16 at 08:15; Stop 11/26/16 at 08:16; Status DC Diltiazem HCl (Cardizem Inj) 25 mg STK-MED ONCE .ROUTE Last administered on 10:36; Start 11/26/16 at 10:31; Stop 11/26/16 at 10:32; Status DC Diltiazem HCl (Cardizem Inj) 10 mg NOW ONCE IV PUSH ; Start 11/26/16 at 10:45; Stop 11/26/16 at 10:46; Status DC Bupivacaine HCl/ Epinephrine Bitart (Sensorcaine-Epinephrine Pf 0.5% Inj) 20 ml ONCE ONCE INFIL Last administered on 11/27/16 13:16; Start 11/27/16 at 13:16 ; Stop 11/27/16 at 13:17; Status DC Miscellaneous Information ALL NURSING DEPARTME... UNSCH PRN .XX SEE LABEL COMMENTS; Start 11/27/16 at 18:00; Stop 11/28/16 at 17:59; Status DC Metoprolol Tartrate (Lopressor Inj) 5 mg Q5M PRN IV PUSH TACHYCARDIA > 100 Last administered on 12/15/16 03:54; Start 11/28/16 at 02:45 Sodium Chloride (Sodium Chloride 0.9% Inj) 20 ml STK-MED ONCE IV ; Start at 13:02; Stop 11/28/16 at 13:05; Status DC Propofol (Diprivan 200 Mg/20 ml Inj) 200 mg STK-MED ONCE IV ; Start 11/23/16 at 13:02; Stop 11/28/16 at 13:05; Status DC Fentanyl Citrate (fentaNYL INJ) 500 mcg STK-MED ONCE IV ; Start 11/23/16 at 13: 02; Stop 11/28/16 at 13:05; Status DC Ondansetron HCl (Zofran Inj) 4 mg STK-MED ONCE IV PUSH ; Start 11/23/16 at 13:02 ; Stop 11/28/16 at 13:05; Status DC Dexamethasone Sodium Phosphate (Decadron Inj) 4 mg STK-MED ONCE IV ; Start 11/23 at 13:02; Stop 11/28/16 at 13:05; Status DC Ketorolac Tromethamine (Toradol Inj) 60 mg STK-MED ONCE IM ; Start 11/23/16 at 13:02; Stop 11/28/16 at 13:05; Status DC Midazolam HCl (Versed Inj) 2 mg STK-MED ONCE IV ; Start 11/23/16 at 13:02; Stop 11/28/16 at 13:05; Status DC Phenylephrine HCl (Neosynephrine/ NS 1000 Mcg/10ml Syr) 1,000 mcg STK-MED ONCE IV Last administered on 11/23/16 13:02; Start 11/23/16 at 13:02; Stop at 13:05; Status DC Rocuronium Kinsey (Zemuron Inj) 50 mg STK-MED ONCE IV PUSH ; Start 11/23/16 at 13:02; Stop 11/28/16 at 13:05; Status DC Lidocaine HCl (Xylocaine-Mpf 1% Inj) 5 ml STK-MED ONCE OTHER ; Start 11/23/16 at 13:02; Stop 11/28/16 at 13:05; Status DC Calcium Gluconate 1 gm/Sodium Chloride 110 ml @ 110 mls/hr ONCE ONCE IV Last administered on 11/29/16 09:27; Start 11/29/16 at 09:00; Stop 11/29/16 at 09:59 ; Status DC Nicardipine HCl 25 mg/Sodium Chloride 250 ml @ 50 mls/hr TITRATE PRN IV Blood pressure management Last administered on 11/30/16 13:51; Start 11/30/16 at 11: 15; Stop 12/03/16 at 09:00; Status DC Nitroglycerin/ Dextrose 250 ml @ 1.5 mls/hr TITRATE PRN IV Hypertension; Start 11/30/16 at 11:15; Stop 12/03/16 at 09:00; Status DC Digoxin (Lanoxin Inj) 0.25 mg ONCE ONCE IV PUSH Last administered on 13:58; Start 11/30/16 at 12:15; Stop 11/30/16 at 12:16; Status DC Amiodarone HCl (Cordarone) 200 mg Q12HR OG-TUBE Last administered on 21:23; Start 11/30/16 at 21:00; Stop 12/24/16 at 08:50; Status DC Albuterol/ Ipratropium (Duoneb Neb) 1 ampule Q4HR NEB NEB Last administered on 12/04/16 07:42; Start 11/30/16 at 12:00; Stop 12/04/16 at 11:59; Status DC Albuterol Sulfate (Albuterol Neb) 2.5 mg Q2HR NEB PRN NEB DYSPNEA Last administered on 01/10/17 19:43; Start 11/30/16 at 11:15 Magnesium Sulfate/ Dextrose 100 ml @ 100 mls/hr Q1H IV Last administered on 14:51; Start 11/30/16 at 12:00; Stop 11/30/16 at 13:59; Status DC Iohexol (Omnipaque 350 Inj) 30 ml STK-MED ONCE G-TUBE Last administered on 11/30 13:31; Start 11/30/16 at 13:31; Stop 11/30/16 at 13:32; Status DC Trimethoprim/ Sulfamethoxazole (Bactrim Ds 800-160 Mg) 2 tab Q8HR PO Last administered on 12/11/16 20:19; Start 11/30/16 at 22:00; Stop 12/11/16 at 23: 55; Status DC Magnesium Sulfate/ Dextrose 100 ml @ 100 mls/hr Q1H IV Last administered on 15:37; Start 12/01/16 at 14:00; Stop 12/01/16 at 15:59; Status DC Potassium Phosphate 15 mmol/ Sodium Chloride 155 ml @ 38.75 mls/ hr ONCE ONCE IV Last administered on 12/01/16 18:01; Start 12/01/16 at 14:00; Stop at 17:59; Status DC Calcium Gluconate 1 gm/Sodium Chloride 110 ml @ 110 mls/hr ONCE ONCE IV Last administered on 12/01/16 17:06; Start 12/01/16 at 13:45; Stop 12/01/16 at 14:44 ; Status DC Insulin Detemir (Levemir Inj) 15 units Q12HR SQ Last administered on 20:25; Start 12/01/16 at 21:00; Stop 12/19/16 at 07:31; Status DC Insulin Detemir (Levemir Inj) 10 units NOW ONCE SQ ; Start 12/01/16 at 13:30; Stop 12/01/16 at 13:31; Status DC Insulin Human Regular (NovoLIN R SUPPLEMENTAL SCALE) 1 Q6H SQ ; Start 12/02/16 at 09:45; Status Cancel Insulin Human Regular (NovoLIN R SUPPLEMENTAL SCALE) 1 Q6H SQ Last administered on 01/01/17 08:00; Start 12/02/16 at 14:00 Oxycodone HCl (Roxicodone Intensol Liq) 5 mg Q6H PEG Last administered on 12/06 09:37; Start 12/02/16 at 10:00; Stop 12/06/16 at 11:09; Status DC Fentanyl Citrate (fentaNYL INJ) 50 mcg Q1H PRN IV PUSH PAIN SCALE 5 TO 10 Last administered on 01/10/17 04:50; Start 12/03/16 at 09:00; Stop 01/10/17 at 10: 00; Status DC Prednisone (Deltasone) 20 mg DAILY PO Last administered on 12/23/16 08:05; Start 12/04/16 at 09:00; Stop 12/24/16 at 08:50; Status DC Lisinopril (Prinivil) 10 mg DAILY PO Last administered on 01/13/17 10:30; Start 12/04/16 at 02:45 Fentanyl (Duragesic 50 Mcg Patch.72 Hr) 1 patch Q3D T-DERMAL Last administered on 12/13/16 15:24; Start 12/04/16 at 14:00; Stop 12/15/16 at 13 :11; Status DC Warfarin Sodium (Coumadin) 3 mg DAILY@16 PO Last administered on 12/06/16 17: 05; Start 12/04/16 at 16:00; Stop 12/07/16 at 08:17; Status DC Pharmacy Profile Note 0 ml @ 0 mls/hr UNSCH OTHER ; Start 12/04/16 at 12:15; Stop 12/13/16 at 10:46; Status DC Midazolam HCl (Versed Inj) 2 mg STK-MED ONCE IV ; Start 11/29/16 at 12:00; Stop 12/04/16 at 13:02; Status DC Propofol (Diprivan 200 Mg/20 ml Inj) 200 mg STK-MED ONCE IV ; Start 11/29/16 at 12:00; Stop 12/04/16 at 13:02; Status DC Miscellaneous Information 1 Q3D T-DERMAL Last administered on 01/03/17 14:00; Start 12/07/16 at 14:00 Patient Medication Teaching (Coumadin Booklet) 1 ONCE ONCE OTHER Last administered on 12/04/16 16:42; Start 12/04/16 at 16:00; Stop 12/04/16 at 16 :01; Status DC Albumin Human 100 ml @ 60 mls/hr ONCE ONCE IV Last administered on 22:18; Start 12/04/16 at 22:15; Stop 12/04/16 at 23:54; Status DC Albumin Human 100 ml @ 60 mls/hr ONCE ONCE IV Last administered on 01:07; Start 12/05/16 at 01:15; Stop 12/05/16 at 02:54; Status DC Calcium Gluconate 3 gm/Sodium Chloride 130 ml @ 120 mls/hr ONCE ONCE IV Last administered on 12/05/16 01:25; Start 12/05/16 at 02:00; Stop 12/05/16 at 03 :04; Status DC Warfarin Sodium (Coumadin) 2 mg ONCE ONCE PO Last administered on 12/05/16 16:01; Start 12/05/16 at 16:00; Stop 12/05/16 at 16:01; Status DC Warfarin Sodium (Coumadin) 5 mg ONCE ONCE PO Last administered on 12/06/16 17:05; Start 12/06/16 at 16:00; Stop 12/06/16 at 16:01; Status DC Oxycodone HCl (Roxicodone Intensol Liq) 5 mg Q6H PEG Last administered on 12/19 04:50; Start 12/06/16 at 16:00; Stop 12/24/16 at 08:50; Status DC Warfarin Sodium (Coumadin) 5 mg DAILY@1600 PO Last administered on 12/09/16 16:02; Start 12/07/16 at 16:00; Stop 12/10/16 at 12:59; Status DC Warfarin Sodium (Coumadin) 5 mg ONCE ONCE PO Last administered on 12/07/16 15:11; Start 12/07/16 at 16:00; Stop 12/07/16 at 16:01; Status DC Escitalopram Oxalate (Lexapro) 10 mg HS PO Last administered on 01/12/17 22: 16; Start 12/07/16 at 21:00 Bumetanide (Bumex Inj) 1 mg ONCE ONCE IV PUSH Last administered on 12/07/16 10:29; Start 12/07/16 at 08:45; Stop 12/07/16 at 09:16; Status DC Sodium Chloride (Sodium Chloride) 1 gm Q12HR PO Last administered on 09:00; Start 12/07/16 at 09:00 Warfarin Sodium (Coumadin) 2 mg ONCE@1600 ONCE PO Last administered on 15:46; Start 12/08/16 at 16:00; Stop 12/08/16 at 16:01; Status DC Warfarin Sodium (Coumadin) 5 mg ONCE ONCE PO Last administered on 12/09/16 16:02; Start 12/09/16 at 16:00; Stop 12/09/16 at 16:01; Status DC Alteplase, Recombinant (Cathflo Activase Inj) 2 mg NOW ONCE IV FLUSH Last administered on 12/13/16 11:21; Start 12/13/16 at 08:00; Stop 12/13/16 at 08 :01; Status DC Heparin Sodium (Porcine) (Heparin Inj) 5,000 units Q12HR SQ Last administered on 12/23/16 21:23; Start 12/13/16 at 21:00; Stop 12/24/16 at 09:06; Status DC Metoclopramide HCl (Reglan Inj) 10 mg Q8HR IV Last administered on 12/15/16 22:20; Start 12/14/16 at 14:30; Stop 12/16/16 at 14:28; Status DC Polyethylene Glycol/ Electrolytes (Colyte Liq) 4,000 ml ONCE ONCE PO Last administered on 12/14/16 21:50; Start 12/14/16 at 17:45; Stop 12/14/16 at 17 :51; Status DC Diatrizoate Meglum/ Diatrizoate Sod ( Gastroview Liq) 18 ml ONCE ONCE PO Last administered on 12/15/16 09:30; Start 12/15/16 at 09:30; Stop 12/15/16 at 09:31; Status DC Iohexol (Omnipaque 350 Inj) 75 ml STK-MED ONCE IVCONTRAST Last administered on 12/15/16 10:51; Start 12/15/16 at 10:51; Stop 12/15/16 at 10:59; Status DC Amiodarone HCl (Cordarone Inj) 150 mg STK-MED ONCE .ROUTE ; Start 12/15/16 at 12:08; Stop 12/15/16 at 12:09; Status DC Norepinephrine Bitartrate (Levophed Inj) 4 mg STK-MED ONCE .ROUTE ; Start 12/15 at 13:15; Stop 12/15/16 at 13:16; Status DC Piperacillin Sod/ Tazobactam Sod 100 ml @ 200 mls/hr Q6H IV Last administered on 12/20/16 15:46; Start 12/15/16 at 15:00; Stop 12/20/16 at 15:58; Status DC Levofloxacin/ Dextrose 150 ml @ 100 mls/hr Q24H IV Last administered on 15:11; Start 12/15/16 at 14:00; Stop 12/15/16 at 15:58; Status DC Vancomycin HCl 1250 mg/Sodium Chloride 262.5 ml @ 262.5 mls/ hr ONCE ONCE IV Last administered on 12/15/16 16:00; Start 12/15/16 at 16:00; Stop 12/15/16 at 16:59; Status DC Micafungin Sodium 150 mg/Sodium Chloride 100 ml @ 100 mls/hr Q24H IV Last administered on 12/15/16 17:00; Start 12/15/16 at 17:00; Stop 12/18/16 at 16 :34; Status DC Sodium Chloride 1,000 ml @ 999 mls/hr Q1H1M ONCE IV Last administered on 12/15 20:25; Start 12/15/16 at 20:00; Stop 12/15/16 at 21:00; Status DC Fentanyl Citrate (fentaNYL INJ) 100 mcg ONCE ONCE IV Last administered on 20:22; Start 12/15/16 at 20:00; Stop 12/15/16 at 20:01; Status DC Midazolam HCl (Versed Inj) 2 mg ONCE ONCE IV Last administered on 12/15/16 20:22; Start 12/15/16 at 20:00; Stop 12/15/16 at 20:01; Status DC Metoclopramide HCl (Reglan Inj) 10 mg Q6HR IV Last administered on 12/24/16 06:05; Start 12/16/16 at 18:00; Stop 12/24/16 at 08:50; Status DC Polyethylene Glycol (Miralax) 17 gm DAILY PO Last administered on 12/18/16 09 :09; Start 12/17/16 at 10:15; Stop 12/18/16 at 16:09; Status DC Polyethylene Glycol (Miralax) 34 gm DAILY PO ; Start 12/19/16 at 09:00; Stop 12/20/16 at 17:33; Status DC Insulin Detemir (Levemir Inj) 8 units Q12HR SQ Last administered on 01/06/17 09:00; Start 12/19/16 at 09:00; Stop 01/09/17 at 17:09; Status DC Budesonide (Pulmicort Respule Neb) 0.5 mg Q12HR NEB NEB Last administered on 01/13/17 08:46; Start 12/19/16 at 08:00 Albuterol/ Ipratropium (Duoneb Neb) 1 ampule Q4HR NEB NEB Last administered on 12/23/16 07:24; Start 12/19/16 at 08:00; Stop 12/23/16 at 07:59; Status DC Phenylephrine HCl (Neosynephrine Inj) 10 mg STK-MED ONCE .ROUTE ; Start at 09:19; Stop 12/19/16 at 09:20; Status DC Digoxin (Lanoxin Inj) 0.25 mg ONCE ONCE IV PUSH Last administered on 15:46; Start 12/20/16 at 14:30; Stop 12/20/16 at 14:39; Status DC Potassium Chloride (KCl Powder) 40 meq ONCE ONCE PO ; Start 12/20/16 at 14:30 ; Stop 12/20/16 at 14:39; Status DC Polyethylene Glycol (Miralax) 17 gm DAILY PRN PO MILD CONSTIPATION; Start at 17:30 Propofol 50 ml @ As Directed STK-MED ONCE .ROUTE ; Start 12/22/16 at 14:20; Stop 12/22/16 at 14:21; Status DC Norepinephrine Bitartrate 250 ml @ As Directed STK-MED ONCE IV ; Start at 14:21; Stop 12/22/16 at 14:22; Status DC Amiodarone HCl (Cordarone) 200 mg DAILY OG-TUBE Last administered on 10:31; Start 12/24/16 at 09:00 Prednisone (Deltasone) 10 mg DAILY PO Last administered on 01/01/17 09:17; Start 12/24/16 at 09:00; Stop 01/01/17 at 13:05; Status DC Metoclopramide HCl (Reglan Liq) 10 mg Q8HR PO Last administered on 01/04/17 14:58; Start 12/24/16 at 14:00; Stop 01/04/17 at 15:28; Status DC Enoxaparin Sodium (Lovenox Inj) 40 mg Q24H SQ Last administered on 01/13/17 10:14; Start 12/24/16 at 10:00 Albuterol/ Ipratropium (Duoneb Neb) 1 ampule Q6HR WHILE AWAKE NEB NEB Last administered on 12/31/16 15:28; Start 12/27/16 at 20:00; Stop 12/31/16 at 19:59 ; Status DC Loperamide HCl (Imodium Liq) 2 mg UNSCH PRN PO DIARRHEA; Start 12/28/16 at 15: 45 Lactobacillus Acidophilus (Lactinex) 1 tab Q12HR PO Last administered on 10:30; Start 12/28/16 at 21:00 Acetylcysteine (Mucomyst 20% Neb) 2 ml Q6HR NEB NEB ; Start 12/30/16 at 16:00; Stop 12/30/16 at 20:29; Status DC Acetylcysteine (Mucomyst 20% Neb) 2 ml Q6HR NEB NEB Last administered on 14:41; Start 12/30/16 at 22:00; Stop 01/03/17 at 21:59; Status DC Sodium Hypochlorite (Dakin'S 0.125% Soln) 500 ml BID TOPICAL Last administered on 01/13/17 10:31; Start 12/31/16 at 21:00 Potassium Chloride (KCl) 20 meq ONCE ONCE PO Last administered on 01/01/17 14 :42; Start 01/01/17 at 09:30; Stop 01/01/17 at 09:36; Status DC Prednisone (Deltasone) 7.5 mg DAILY PO Last administered on 01/04/17 09:30; Start 01/02/17 at 09:00; Stop 01/04/17 at 19:28; Status DC Furosemide (Lasix) 20 mg DAILY PO Last administered on 01/13/17 10:30; Start 01/02/17 at 09:00 Potassium Chloride (KCl) 20 meq DAILY PO Last administered on 01/03/17 10:24; Start 01/02/17 at 09:00; Stop 01/04/17 at 15:18; Status DC Miscellaneous (Pill Splitter) 1 ea UNSCH PRN OTHER SEE LABEL COMMENTS; Start 01/01/17 at 14:15 Rocuronium Kinsey (Zemuron Inj) 50 mg STK-MED ONCE IV PUSH ; Start 11/27/16 at 12:00; Stop 01/03/17 at 08:02; Status DC Vecuronium Kinsey (Norcuron 20 Mg Inj) 20 mg STK-MED ONCE IV ; Start 11/27/16 at 12:00; Stop 01/03/17 at 08:02; Status DC Parenteral Electrolytes 1,000 ml @ As Directed STK-MED ONCE IV ; Start at 12:00; Stop 01/03/17 at 08:02; Status DC Ceftazidime/ Avibactam 2.5 gm/ Sodium Chloride 50 ml @ 25 mls/hr Q8H IV Last administered on 01/10/17 17:24; Start 01/03/17 at 18:00; Stop 01/10/17 at 20: 00; Status DC Metronidazole 100 ml @ 100 mls/hr Q8H IV Last administered on 01/05/17 01:00 ; Start 01/03/17 at 17:00; Stop 01/05/17 at 11:33; Status DC Potassium Bicarb/ Potassium Chloride (K-Lyte Cl Eff) 25 meq DAILY G-TUBE Last administered on 01/13/17 10:12; Start 01/04/17 at 15:30 Prednisone (Deltasone) 5 mg DAILY PO Last administered on 01/10/17 07:50; Start 01/05/17 at 09:00; Stop 01/11/17 at 08:59; Status DC Metoprolol Tartrate (Lopressor) 25 mg Q8HR PO Last administered on 01/13/17 13:51; Start 01/08/17 at 14:00 Diltiazem HCl (Cardizem) 60 mg Q6HR PO Last administered on 01/13/17 13:51; Start 01/08/17 at 18:00 Oxycodone/ Acetaminophen (Percocet 5-325 Mg) 1 tab Q4H PRN PO pain 1-8 Last administered on 01/12/17 04:54; Start 01/10/17 at 10:00 Oxycodone/ Acetaminophen (Percocet 5-325 Mg) 2 tab Q4H PRN PO 9-10 Last administered on 01/13/17 13:51; Start 01/10/17 at 10:00 Ceftolozane/ Tazobactam 1500 mg/Sodium Chloride 100 ml @ 100 mls/hr Q8H IV Last administered on 01/13/17 10:31; Start 01/11/17 at 02:00; Stop 01/16/17 at 23:59 A/P Assessment and Plan Metabolic encephalopathy - resolved. CIM/SHEFALI S/p Neuromuscular paralysis for Prone therapy Syncope Depression MRI C-spine showing increased signals C3-C5 region. Dr Riggins reviewed MRI spine- not sure about increased signal in cord, could be cervical hyperextension injury, from intubation according to him. Unable to do flexion- extension films of the C-spine (trached patient). 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 Patient will need to be on oral medication will DC that now and start Percocet. Haloperidol 5mg iv q4h prn for agitation. Escitalopram 10 mg qhs or depression from 12/07/16. MRI brain 11/26: Small focal signal abnormality in the superior medial left frontal lobe. Could be sequela from prior insult such as a contusion or small infarct. No acute infarct MRI brain 12/[address] on admission revealed no acute intracranial findings, CT brain 11/05- no acute findings. opacification of sinuses. EEG 11/20: No seizure activity. EEG 11/09: severe encephalopathy PT/OT for range of motion, up to stretcher chair as tolerated : Hypotension-resolved Atrial fib/ flutter with RVR - rate controlled.- telemetry in SR Hypertension on amiodarone to 200mg po daily for maintenance dose. digoxin 0.125 mg po daily. recheck level 01/04 and [id number] as long as stable. PO Diltiazem 90 mg PO q6hr- taper down to 60 mg po 6 on metoprolol 50mg Q6 - will decrease dose 25 mg po q8 with borderline SBPs Coumadin and heparin 12/10 held due to left popliteal fossa hematoma. now on lovenox for prophylactic dose since 12/24. given high risk for bleeding complication and low CHADS-VaSC risk, risk/benefit at this time in favor of holding full anticoagulation. Echo 10/25 EF 60-65%. Repeat echo with bubble study: 11/22: No shunt seen Acute, now chronic hypoxemic Respiratory failure s/p trach 11/27 Spontaneous Right sided PTX secondary to barotrauma - resolved. COPD exacerbation - resolved. Pneumonia most likely community-acquired - resolved. Obesity hypoventilation syndrome Tobacco use disorder albuterol aerosols every 2 hours PRN. Ventilator bundle on T piece - on fenestrated- Passimuir Budesonide 0.5 mg/2 mL aerosols twice a day. on Prednisone 10 mg daily continue to wean s/p trach 11/[address] Martin #8 [place]. Pulmonary following. appreciate assistance. s/p 20Fr CT placed for right PTX 11/23, monitor CT drainage. d/c chest tube . CT pulmonary angio revealed no pulmonary embolus. Masslike consolidation in the posterior right upper lobe and medial right lower lobe. Lymphadenopathy to 1 cm right hilum and subcarinal. Atelectasis left lower lobe. Discontinued Prone therapy 11/02/16. continue t-piece as tolerated. BiPAP at hs Ileus - [facility].- [facility] Mor[facility] Obesity Elevated LFT's- now within normal. PEG tube placement 11/30. US liver: No ductal dilatation tube feeds with vital high-protein currently at 50 cc/hr. Metoclopramide 10 mg every 6 hours, change to PO.- DC with the diarrhea 01/04 No Cholecystostomy tube recommended by Dr. Nguyen. Recommended advance diet as tolerated Famotidine 20 milligrams mg twice a day for GI prophylaxis Hyponatremia Hypopotassemia Diarrhea: - improved C diff is negative. on lactinex and imodium. Monitor lytes Monitor renal function, I/O's, electrolytes replacement per protocol. Currently on sodium chloride 1 g every 12 hours Hyperglycemia- good readings on current regimen SSI Q6h on Levemer 8 units SQ bid- -not getting it for past 3 days so Levemir was discontinued. and ff blood sugars Normocytic anemia - stable. Leukocytosis L popliteal fossa hematoma - stable. Monitor closely for compartment syndrome Severe sepsis - resolved. HCAP -resolved Leukocytosis Per federal aid coordinator, pt has a sacrococcygeal Wound measuring 4cm x 3cm x ~3.2cm. ~ 50% yellow loosely adherent slough is noted at the base, with ~50% pink tissue. I did evaluate the wound. Wound cultures have been obtain. I Add Patel po bid to help with wound healing Sputum: Klebsiella, Stenotrophomonas and Pseudomonas 11/27 Sputum cx 11/23: Kleb, Pseudomonas, s/p (ceftriaxone and fluconazole course). ID is following-Dr. Patel s/p ceftriaxone 11/02-11/09 for Enterobacter pneumonia. Repeat sputum Klebsiella sensitive to Rocephin s/p started on Avicaz 01/10 Flagyl DC- 01/04 C-diff PCR is negative now on Zerbax until 01/16 GI, famotidine. DVT - on lovenox. s/pIV heparin gtt/Coumadin DCd 12/10 due to left popliteal hematoma. Given bleeding complications with low CHADS-VaSC risk, risk/benefit in favor of holding full anticoagulation. 11/09 Doppler US LE negative for DVT Palliative care is following Discharge Planning Difficulty with placement due to IV antibiotics with zerbax last day 01/16 at 2359. Most likely he will need to complete his course of antibiotics in order for a rehabilitation facility as outpatient. Dorene Lubin MD Jan 13, 2017 14:18
--- NOTE | 2017-01-13 14:51 | HHI.IDPN ---
Subjective Subjective Remarks doing well afebrile WBC diarrhea resolved secretions improved Antibiotics zerbaxa Allergies: Coded Allergies: No Known Allergies (Unverified , 10/25/16) Objective . Vital Signs Date Time Temp Pulse Resp B/P (MAP) Pulse Ox O2 Delivery O2 Flow Rate FiO2 01/13/17 12:00 98.8 68 18 143/67 (92) 94 01/13/17 08:46 Aerosol Mask 5.00 50 01/13/17 08:46 94 Trach Collar 5.00 50 01/13/17 08:00 98.2 70 18 143/66 (91) 93 01/13/17 05:00 Bi-Pap 01/13/17 05:00 98.2 60 20 96/60 (72) 93 01/13/17 00:23 98 21 01/13/17 00:00 Bi-Pap 01/12/17 20:49 94 Trach Collar 6.00 50 01/12/17 20:12 83 01/12/17 20:00 98.0 83 20 109/56 (73) 90 01/12/17 17:40 Trach Collar 6.00 50 01/12/17 16:00 99.0 77 18 108/58 (75) 96 . Laboratory Tests Test 01/13/17 08:47 White Blood Count 15.3 TH/MM3 Red Blood Count 3.51 MIL/MM3 Hemoglobin 10.6 GM/DL Hematocrit 32.7 % Mean Corpuscular Volume 93.1 FL Mean Corpuscular Hemoglobin 30.2 PG Mean Corpuscular Hemoglobin Concent 32.5 % Red Cell Distribution Width 16.0 % Platelet Count 479 TH/MM3 Mean Platelet Volume 7.1 FL Laboratory Tests Test 01/13/17 08:47 Creatinine 0.18 MG/DL Estimat Glomerular Filtration Rate 559 ML/MIN Imaging Last Impressions Chest X-Ray 01/05/17 0600 Signed Impressions: Service Date/Time: Thursday, January 05, 2017 04:00 - CONCLUSION: 1. Cardiomegaly and findings of vascular congestion without overt failure. The findings are improved when compared with the prior exam. Diego Callahan MD Lower Extremity Ultrasound 01/01/17 0000 Signed Impressions: Service Date/Time: Sunday, January 01, 2017 13:40 - CONCLUSION: 1. No DVT is identified within either lower extremity. 2. Complex cystic appearing collection in the popliteal fossa and calf region on the left measuring up to 18.6 cm. 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 Jayson Levin MD Chest Ultrasound 12/27/16 0000 Signed Impressions: Service Date/Time: December 19:04 - CONCLUSION: Minimal right pleural effusion and the patient was not marked for thoracentesis. Jhonathan Dietz MD Abdomen X-Ray 12/19/16 0000 Signed Impressions: Service Date/Time: Monday, December 19, 2016 07:55 - CONCLUSION: Mildly dilated loops of small and large bowel characteristic of ileus. Fito Joshua MD Abdomen/Pelvis CT 12/15/16 0000 Signed Impressions: Service Date/Time: Thursday, December 15, 2016 10:50 - CONCLUSION: 1. Distended bowel especially the small bowel and the cecum. This is nonspecific. A transition point is not seen. This could relate to ileus. Oral contrast does extend to the rectum. 2. Bibasilar areas of consolidation at the lung bases. There also is a possible small pneumothorax on the right. The patient does have a right chest tube in place. 3. G-tube. 4. Distended gallbladder. 5. Increased soft tissue density in the left lateral abdominal wall which could be from prior trauma or edema. Jayson Soto MD Cervical Spine MRI 12/03/16 0000 Signed Impressions: Service Date/Time: Saturday, December 03, 2016 13:13 - CONCLUSION: Severely limited exam. I believe there is increased signal in the cervical cord mid C3 to mid C5. Ward Kim MD FACR Brain MRI 12/03/16 0000 Signed Impressions: Service Date/Time: Saturday, December 03, 2016 13:13 - CONCLUSION: 1. There is a small area of abnormal T2 signal in the left frontal cortex this is unchanged from the previous examination dated 11/26/16. This is nonspecific in appearance on the MRI. Differential considerations would be a small area of gliosis versus an old area of contusion. Follow up examination in 6 months to document stability would be warranted. 2. No findings to indicate acute cortical infarction are identified. Román Kim MD Gastrostomy Tube Placement 11/30/16 0000 Signed Impressions: Service Date/Time: Wednesday, November 30, 2016 12:22 - CONCLUSION: Uncomplicated gastrostomy tube placement as above. Jorge Jolly MD Liver Ultrasound 11/09/16 0000 Signed Impressions: Service Date/Time: Wednesday, November 09, 2016 13:58 - CONCLUSION: Sono dense liver without duct dilatation. 4 mm common duct. Ward Kim MD FACR Chest CT 11/06/16 0000 Signed Impressions: Service Date/Time: Sunday, November 06, 2016 11:24 - CONCLUSION: 1. Dense bilateral posterior lower lobe airspace consolidation consistent with aspiration versus less likely pneumonia. 2. Linear consolidation in the right middle lobe consistent with atelectasis versus aspiration. 3. Trace left and small right pleural effusions. 4. Support lines and tubes in good position. 5. Prominent coronary artery calcifications. Nico Vaughan MD Head CT 11/05/16 0000 Signed Impressions: Service Date/Time: Saturday, November 05, 2016 21:43 - CONCLUSION: 1. No acute intracranial abnormalities. Pansinus fluid opacification. Cristofer De Santiago MD Carotid Artery Ultrasound 10/25/16 0000 Signed Impressions: Service Date/Time: September 08:27 - CONCLUSION: Mild to moderate plaque in both carotid systems with less than 40%% diameter stenosis by velocity criteria. Jhonathan Dietz MD CT Angiography 10/25/16 0000 Signed Impressions: Service Date/Time: September 06:12 - CONCLUSION: 1. Negative for pulmonary embolism. 2. There is a fairly large area of masslike consolidation in the medial right lung involving posterior segment right upper lobe and medial aspect of right lower lobe. There is associated right hilar and mediastinal adenopathy measuring up to 2.1 cm. Differential diagnosis includes pneumonia or underlying lung neoplasm. Close followup imaging recommended after treatment for pneumonia, to assess for underlying mass. Cristofer De Santiago MD Physical Exam CONSTITUTIONAL/GENERAL: This is a morbidly obese patient, TUBES/LINES/DRAINS: SKIN: no rash NECK: trach in place, using Passimuir valve to talk CARDIOVASCULAR: No murmurs, rgular rat, rhythm No JVD. Peripheral pulses symmetric. RESPIRATORY/CHEST: Symmetric, unlabored respirations. coarse BS, still rhonchi BL GASTROINTESTINAL: Abdomen is soft , not distended, not tender , no guarding or rebound. . Bowel sounds present. Dignishiled in place with light brown liquid stool GENITOURINARY: Without palpable bladder distension. MUSCULOSKELETAL: Extremities without clubbing, cyanosis, trace edema of LUE, trace edema BLE minimal ecchymosis and indurated of L calf, NEUROLOGICAL: awake, alert, communicates and follows commands PSYCHIATRIC: calm Assessment & Plan Remarks PNA, Kleb pneumo - failrly sensitive - PSAE , Stenotrophomonas and Kleb in the sputum ? unclear is Steno malt is a coloniser vs a true pathogen, but improved after Bactrim was introdused ARDS Acute VDRF, tolerating weaning - sp trach, on Tpiece R sided PTX sp CT Abx associated diarrhea, C.diff negative agasin 12/15 Abnormal UA, CANDIDURIA Persiastent leukocytosis and bandemia PNA MDRO Pseudomonas S avicaz, ZErbaxa Sacral decub, doubt infection - looks very clean Diarrhea, abx associated - C.diff negative: resolved REC's: cont to monitor WBC and clinically cont Zerbaxa to complete up to 2 weeks for Pseudomonas PNA ( thru 01/16) (ASP'; > 7 day course 2/2 slow resolution and persistent leukocytosis) - will repeat CXR if cleared infiltrates will dc Mariana Quezada RN, MD Jan 13, 2017 14:50
--- NOTE | 2017-01-13 18:48 | RADRPT ---
EXAM DATE/TIME: 01/13/2017 18:05 [facility] COMPARISON: No previous studies available for comparison. INDICATIONS : Shortness of breath. MEDICAL HISTORY : Hypercholesterolemia. Hypertension Chronic obstructive pulmonary disease. SURGICAL HISTORY : None. ENCOUNTER: Subsequent ACUITY: 4 - 6 months PAIN SCORE: 0/10 LOCATION: Bilateral chest FINDINGS: Cardiomegaly. Tracheostomy tube. No consolidation or effusion. Osseous structures are intact. CONCLUSION: No acute disease. Nicholas Odonnell MD on January 13, 2017 at 18:47 Board Certified Radiologist. This report was verified electronically.
[2017-01-13] MEDS: ESCITALOPRAM OXALATE 10 MG TAB PO SCH (21:52)
[2017-01-14] VITALS (8 sets, daily range): BP systolic 104–119; BP diastolic 55–78; PULSE 60–82; RESP 18–20; TEMP 97.6–98; O2SAT 92–98
[2017-01-14] MEDS: CEFTOLOZANE-TAZOBACTAM INJ 1,500 MG in SODIUM CHLORIDE 0.9% INJ 100 ML IV SCH (02:00)
[2017-01-14] MEDS: INSULIN NovoLIN REGULAR SUPPLEMENTAL SCALE SQ SCH ×3 (02:00→14:00)
[2017-01-14] MEDS: oxyCODONE/ACETAMINOPHEN 5 MG/325 MG TAB PO PRN ×2 (03:45→09:46)
[2017-01-14] MEDS: CHLORHEXIDINE GLUCONATE 2 % 1 PACK (2 CLOTHS) TOP SCH (04:00)
[2017-01-14] MEDS: DILTIAZEM HCL 60 MG TAB PO SCH ×3 (05:46→12:00)
[2017-01-14] MEDS: METOPROLOL TARTRATE 25 MG TAB PO SCH ×2 (05:46→14:00)
[2017-01-14 07:59] LABS: APTT (PATIENT) 26.9 SEC (24.3-30.1)
[2017-01-14] MEDS: CHLORHEXIDINE 0.12% (ORAL KIT) 15 ML CUP MT SCH (08:00)
[2017-01-14] MEDS: RESP: BUDESONIDE 0.5 MG/2 ML NEB NEB SCH (08:48)
[2017-01-14] MEDS: SODIUM CHLORIDE 0.9% FLUSH 10 ML FLUSH IVF SCH (09:00)
[2017-01-14] MEDS: SODIUM HYPOCHLORITE 0.125% 500 ML BTL TOPICAL SCH (09:00)
[2017-01-14] MEDS: FUROSEMIDE 20 MG TAB PO SCH (09:44)
[2017-01-14] MEDS: LISINOPRIL 10 MG TAB PO SCH (09:44)
[2017-01-14] MEDS: SODIUM CHLORIDE 1 GRAM TAB PO SCH (09:44)
[2017-01-14] MEDS: AMIODARONE 200 MG TAB OG-TUBE SCH (09:44)
[2017-01-14] MEDS: FAMOTIDINE 20 MG TAB NG SCH (09:44)
[2017-01-14] MEDS: LACTOBACILLUS ACIDOPHILUS TAB PO SCH (09:44)
[2017-01-14] MEDS: POTASSIUM CHLORIDE 25 MEQ EFFERVESCENT TAB G-TUBE SCH (09:44)
[2017-01-14] MEDS: ENOXAPARIN SODIUM 40 MG/0.4 ML SYRINGE SQ SCH (09:45)
[2017-01-14] MEDS: DIGOXIN 0.125 MG TAB PO SCH (09:46)
[2017-01-14] MEDS: ARTIFICIAL TEARS OPTH OINT 3.5 APPLIC/3.5 GM TUBO EACH EYE SCH (09:47)
--- NOTE | 2017-01-14 09:59 | HHI.PR ---
Addendum to Inpatient Note Additional Information Chest X-Ray 01/13/17 0000 Signed Impressions: Service Date/Time: Friday, January 13, 2017 18:05 - CONCLUSION: No acute disease. Nicholas Odonnell MD A/P: infiltrates cleared dc abx Mariana Patel MD Jan 14, 2017 09:59
[2017-01-14] MEDS ORDERED: DILT60TA33 PO (10:56)
[2017-01-14] MEDS ORDERED: LACT PO (10:56)
[2017-01-14] MEDS ORDERED: SODI1TAB PO (10:56)
[2017-01-14] MEDS ORDERED: AMIO200T OG-TUBE (10:56)
[2017-01-14] MEDS ORDERED: KLYTECL G-TUBE (10:56)
[2017-01-14] MEDS ORDERED: FURO20TA PO (10:56)
[2017-01-14] MEDS ORDERED: BUDE.5I NEB (10:56)
[2017-01-14] MEDS ORDERED: ESCI10TA PO (10:56)
[2017-01-14] MEDS ORDERED: DIGO0.12 PO (10:56)
[2017-01-14] MEDS ORDERED: FAMO20TA2 NG (10:56)
[2017-01-14] MEDS ORDERED: OXYC1TAB63 PO (10:56)
[2017-01-14] MEDS ORDERED: ARTI3.5O EACH EYE (10:56)
[2017-01-14] MEDS ORDERED: LISI10TA3 PO (10:56)
[2017-01-14] MEDS ORDERED: METO25TA3 PO (10:56)
--- NOTE | 2017-01-14 11:56 | HHI.IDPN ---
Subjective Subjective Remarks doing well afebrile WBC diarrhea resolved no secretions Antibiotics zerbaxa Allergies: Coded Allergies: No Known Allergies (Unverified , 10/25/16) Objective . Vital Signs Date Time Temp Pulse Resp B/P (MAP) Pulse Ox O2 Delivery O2 Flow Rate FiO2 01/14/17 11:45 98 Trach Collar 6.00 01/14/17 11:44 60 01/14/17 08:48 98 Trach Collar 50 01/14/17 08:48 50 01/14/17 08:00 97.6 62 20 109/58 (75) 97 01/14/17 04:00 97.8 82 18 119/78 (92) 94 01/14/17 01:30 98 Bi-Pap 35 01/14/17 00:00 97.6 71 18 104/55 (71) 92 01/14/17 00:00 Trach Collar 50 01/13/17 21:40 96 Trach Collar 50 01/13/17 21:28 96 Trach Collar 50 01/13/17 20:10 66 01/13/17 20:00 Trach Collar 50 01/13/17 20:00 97.9 71 22 117/60 (79) 91 01/13/17 16:00 98.3 62 18 109/68 (82) 95 01/13/17 12:00 98.8 68 18 143/67 (92) 94 01/14/17 01/14/17 01/15/17 15:00 23:00 07:00 Output Total 350 ml Balance -350 ml Output Urine Total 350 ml . Laboratory Tests Test 01/13/17 08:47 White Blood Count 15.3 TH/MM3 Red Blood Count 3.51 MIL/MM3 Hemoglobin 10.6 GM/DL Hematocrit 32.7 % Mean Corpuscular Volume 93.1 FL Mean Corpuscular Hemoglobin 30.2 PG Mean Corpuscular Hemoglobin Concent 32.5 % Red Cell Distribution Width 16.0 % Platelet Count 479 TH/MM3 Mean Platelet Volume 7.1 FL Laboratory Tests Test 01/13/17 08:47 Creatinine 0.18 MG/DL Estimat Glomerular Filtration Rate 559 ML/MIN Imaging Last Impressions Chest X-Ray 01/13/17 0000 Signed Impressions: Service Date/Time: Friday, January 13, 2017 18:05 - CONCLUSION: No acute disease. Nicholas Odonnell MD Lower Extremity Ultrasound 01/01/17 0000 Signed Impressions: Service Date/Time: Sunday, January 01, 2017 13:40 - CONCLUSION: 1. No DVT is identified within either lower extremity. 2. Complex cystic appearing collection in the popliteal fossa and calf region on the left measuring up to 18.6 cm. 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 Jayson Levin MD Chest Ultrasound 12/27/16 0000 Signed Impressions: Service Date/Time: December 19:04 - CONCLUSION: Minimal right pleural effusion and the patient was not marked for thoracentesis. Jhonathan Dietz MD Abdomen X-Ray 12/19/16 0000 Signed Impressions: Service Date/Time: Monday, December 19, 2016 07:55 - CONCLUSION: Mildly dilated loops of small and large bowel characteristic of ileus. Fito Joshua MD Abdomen/Pelvis CT 12/15/16 0000 Signed Impressions: Service Date/Time: Thursday, December 15, 2016 10:50 - CONCLUSION: 1. Distended bowel especially the small bowel and the cecum. This is nonspecific. A transition point is not seen. This could relate to ileus. Oral contrast does extend to the rectum. 2. Bibasilar areas of consolidation at the lung bases. There also is a possible small pneumothorax on the right. The patient does have a right chest tube in place. 3. G-tube. 4. Distended gallbladder. 5. Increased soft tissue density in the left lateral abdominal wall which could be from prior trauma or edema. Jayson Soto MD Cervical Spine MRI 12/03/16 0000 Signed Impressions: Service Date/Time: Saturday, December 03, 2016 13:13 - CONCLUSION: Severely limited exam. I believe there is increased signal in the cervical cord mid C3 to mid C5. Ward Kim MD FACR Brain MRI 12/03/16 0000 Signed Impressions: Service Date/Time: Saturday, December 03, 2016 13:13 - CONCLUSION: 1. There is a small area of abnormal T2 signal in the left frontal cortex this is unchanged from the previous examination dated 11/26/16. This is nonspecific in appearance on the MRI. Differential considerations would be a small area of gliosis versus an old area of contusion. Follow up examination in 6 months to document stability would be warranted. 2. No findings to indicate acute cortical infarction are identified. Román Kim MD Gastrostomy Tube Placement 11/30/16 0000 Signed Impressions: Service Date/Time: Wednesday, November 30, 2016 12:22 - CONCLUSION: Uncomplicated gastrostomy tube placement as above. Jorge Jolly MD Liver Ultrasound 11/09/16 0000 Signed Impressions: Service Date/Time: Wednesday, November 09, 2016 13:58 - CONCLUSION: Sono dense liver without duct dilatation. 4 mm common duct. Ward Kim MD FACR Chest CT 11/06/16 0000 Signed Impressions: Service Date/Time: Sunday, November 06, 2016 11:24 - CONCLUSION: 1. Dense bilateral posterior lower lobe airspace consolidation consistent with aspiration versus less likely pneumonia. 2. Linear consolidation in the right middle lobe consistent with atelectasis versus aspiration. 3. Trace left and small right pleural effusions. 4. Support lines and tubes in good position. 5. Prominent coronary artery calcifications. Nico Vaughan MD Head CT 11/05/16 0000 Signed Impressions: Service Date/Time: Saturday, November 05, 2016 21:43 - CONCLUSION: 1. No acute intracranial abnormalities. Pansinus fluid opacification. Cristofer De Santiago MD Carotid Artery Ultrasound 10/25/16 0000 Signed Impressions: Service Date/Time: September 08:27 - CONCLUSION: Mild to moderate plaque in both carotid systems with less than 40%% diameter stenosis by velocity criteria. Jhonathan Dietz MD CT Angiography 10/25/16 0000 Signed Impressions: Service Date/Time: September 06:12 - CONCLUSION: 1. Negative for pulmonary embolism. 2. There is a fairly large area of masslike consolidation in the medial right lung involving posterior segment right upper lobe and medial aspect of right lower lobe. There is associated right hilar and mediastinal adenopathy measuring up to 2.1 cm. Differential diagnosis includes pneumonia or underlying lung neoplasm. Close followup imaging recommended after treatment for pneumonia, to assess for underlying mass. Cristofer De Santiago MD Physical Exam CONSTITUTIONAL/GENERAL: This is a morbidly obese patient, TUBES/LINES/DRAINS: SKIN: no rash NECK: trach in place, using Passimuir valve to talk CARDIOVASCULAR: No murmurs, rgular rat, rhythm No JVD. Peripheral pulses symmetric. RESPIRATORY/CHEST: Symmetric, unlabored respirations. coarse BS, clear to asucultation GASTROINTESTINAL: Abdomen is soft , not distended, not tender , no guarding or rebound. . Bowel sounds present. GENITOURINARY: Without palpable bladder distension. MUSCULOSKELETAL: Extremities without clubbing, cyanosis, resolved edema NEUROLOGICAL: awake, alert, communicates and follows commands PSYCHIATRIC: calm Assessment & Plan Remarks PNA, Kleb pneumo - failrly sensitive - PSAE , Stenotrophomonas and Kleb in the sputum ? unclear is Steno malt is a coloniser vs a true pathogen, but improved after Bactrim was introdused ARDS - resolved Acute VDRF, resolved - sp trach, passimuir valve R sided PTX sp CT Abx associated diarrhea, C.diff negative agasin 12/15: resolved Abnormal UA, CANDIDURIA Persiastent leukocytosis and bandemia PNA : resolved clinically and radiologically MDRO Pseudomonas sp avicaz, ZErbaxa Sacral decub, doubt infection - sp bedside debridement REC's: cont to monitor WBC and clinically dc Zerbaxa OK to dc to rehab dw Mariana De Guzman MD Jan 14, 2017 11:56
--- NOTE | 2017-01-14 15:05 | HHI.DS ---
Discharge Summary Admission Date Oct 25, 2016 at 05:38 Discharge Date: Jan 14, 2017 Admitting Diagnosis Procedures See hospital course. Brief History - From Admission 55-year-old very pleasant gentleman with past medical history of COPD, and hypertension presents complaining of shortness of breath and nausea, generalized fatigue and chills for 2 days. He thinks it has been from being out in the heat. Denies any fever, chest pain, vomiting, abdominal pain, focal weakness or numbness. In the emergency department his saturation was in mid 80s on arrival with auditory wheezing and tachypnea. He was placed on 4 liters of NC and saturating in the low 90. He does not use oxygen at home. He also mentioned 2 days ago, he came home and was sitting in a chair and was taking his shoes off when he passed out. States he woke up and was still on the chair. This has never happen before. CBC/BMP: 01/13/17 0847 01/13/17 0847 Significant Findings Laboratory Tests Test 01/12/17 07:53 01/13/17 08:47 01/14/17 06:20 Activated Partial Thromboplast Time 21.6 SEC (24.3-30.1) White Blood Count 15.3 TH/MM3 (4.0-11.0) Red Blood Count 3.51 MIL/MM3 (4.50-5.90) Hemoglobin 10.6 GM/DL (13.0-17.0) Hematocrit 32.7 % (39.0-51.0) Platelet Count 479 TH/MM3 (150-450) Creatinine 0.18 MG/DL (0.60-1.30) Imaging Last Impressions Chest X-Ray 01/13/17 0000 Signed Impressions: Service Date/Time: Friday, January 13, 2017 18:05 - CONCLUSION: No acute disease. Nicholas Odonnell MD Lower Extremity Ultrasound 01/01/17 0000 Signed Impressions: Service Date/Time: Sunday, January 01, 2017 13:40 - CONCLUSION: 1. No DVT is identified within either lower extremity. 2. Complex cystic appearing collection in the popliteal fossa and calf region on the left measuring up to 18.6 cm. 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 Jayson Levin MD Chest Ultrasound 12/27/16 0000 Signed Impressions: Service Date/Time: December 19:04 - CONCLUSION: Minimal right pleural effusion and the patient was not marked for thoracentesis. Jhonathan Dietz MD Abdomen X-Ray 12/19/16 0000 Signed Impressions: Service Date/Time: Monday, December 19, 2016 07:55 - CONCLUSION: Mildly dilated loops of small and large bowel characteristic of ileus. Fito Joshua MD Abdomen/Pelvis CT 12/15/16 0000 Signed Impressions: Service Date/Time: Thursday, December 15, 2016 10:50 - CONCLUSION: 1. Distended bowel especially the small bowel and the cecum. This is nonspecific. A transition point is not seen. This could relate to ileus. Oral contrast does extend to the rectum. 2. Bibasilar areas of consolidation at the lung bases. There also is a possible small pneumothorax on the right. The patient does have a right chest tube in place. 3. G-tube. 4. Distended gallbladder. 5. Increased soft tissue density in the left lateral abdominal wall which could be from prior trauma or edema. Jayson Soto MD Cervical Spine MRI 12/03/16 0000 Signed Impressions: Service Date/Time: Saturday, December 03, 2016 13:13 - CONCLUSION: Severely limited exam. I believe there is increased signal in the cervical cord mid C3 to mid C5. Ward Kim MD FACR Brain MRI 12/03/16 0000 Signed Impressions: Service Date/Time: Saturday, December 03, 2016 13:13 - CONCLUSION: 1. There is a small area of abnormal T2 signal in the left frontal cortex this is unchanged from the previous examination dated 11/26/16. This is nonspecific in appearance on the MRI. Differential considerations would be a small area of gliosis versus an old area of contusion. Follow up examination in 6 months to document stability would be warranted. 2. No findings to indicate acute cortical infarction are identified. Román Kim MD Gastrostomy Tube Placement 11/30/16 0000 Signed Impressions: Service Date/Time: Wednesday, November 30, 2016 12:22 - CONCLUSION: Uncomplicated gastrostomy tube placement as above. Jorge Jolly MD Liver Ultrasound 11/09/16 0000 Signed Impressions: Service Date/Time: Wednesday, November 09, 2016 13:58 - CONCLUSION: Sono dense liver without duct dilatation. 4 mm common duct. Ward Kim MD FACR Chest CT 11/06/16 0000 Signed Impressions: Service Date/Time: Sunday, November 06, 2016 11:24 - CONCLUSION: 1. Dense bilateral posterior lower lobe airspace consolidation consistent with aspiration versus less likely pneumonia. 2. Linear consolidation in the right middle lobe consistent with atelectasis versus aspiration. 3. Trace left and small right pleural effusions. 4. Support lines and tubes in good position. 5. Prominent coronary artery calcifications. Nico Vaughan MD Head CT 11/05/16 0000 Signed Impressions: Service Date/Time: Saturday, November 05, 2016 21:43 - CONCLUSION: 1. No acute intracranial abnormalities. Pansinus fluid opacification. Cristofer De Santiago MD Carotid Artery Ultrasound 10/25/16 0000 Signed Impressions: Service Date/Time: September 08:27 - CONCLUSION: Mild to moderate plaque in both carotid systems with less than 40%% diameter stenosis by velocity criteria. Jhonathan Dietz MD CT Angiography 10/25/16 0000 Signed Impressions: Service Date/Time: September 06:12 - CONCLUSION: 1. Negative for pulmonary embolism. 2. There is a fairly large area of masslike consolidation in the medial right lung involving posterior segment right upper lobe and medial aspect of right lower lobe. There is associated right hilar and mediastinal adenopathy measuring up to 2.1 cm. Differential diagnosis includes pneumonia or underlying lung neoplasm. Close followup imaging recommended after treatment for pneumonia, to assess for underlying mass. Cristofer De Sanitago MD PE at Discharge Gen: in NAD sitting in bed comfortably NECK: t piece in place Resp: CTA B/L CV: regular rhythm abdomen: soft, nontender extremities: tr edema, good peripheral pulses sacral decubitus: - stage 4- deep, edges, clean , no foul, no bleeding 01/06 exam bilateral infragluteal area/posterior aspect of the thigh - linear open wounds edges clean, left greater than right 01/07 exam condom catheter Hospital Course Metabolic encephalopathy - resolved. CIM/SHEFALI S/p Neuromuscular paralysis for Prone therapy Syncope Depression MRI C-spine showing increased signals C3-C5 region. Dr Riggins reviewed MRI spine- not sure about increased signal in cord, could be cervical hyperextension injury, from intubation according to him. Unable to do flexion- extension films of the C-spine (trached patient). 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 Patient will need to be on oral medication will DC that now and start Percocet. Haloperidol 5mg iv q4h prn for agitation. Escitalopram 10 mg qhs or depression from 12/07/16. MRI brain 11/26: Small focal signal abnormality in the superior medial left frontal lobe. Could be sequela from prior insult such as a contusion or small infarct. No acute infarct MRI brain 12/[address] on admission revealed no acute intracranial findings, CT brain 11/05- no acute findings. opacification of sinuses. EEG 11/20: No seizure activity. EEG 11/09: severe encephalopathy PT/OT for range of motion, up to stretcher chair as tolerated : Hypotension-resolved Atrial fib/ flutter with RVR - rate controlled.- telemetry in SR Hypertension on amiodarone to 200mg po daily for maintenance dose. digoxin 0.125 mg po daily. recheck level 01/04 and t96tida as long as stable. PO Diltiazem 90 mg PO q6hr- taper down to 60 mg po 6 on metoprolol 50mg Q6 - will decrease dose 25 mg po q8 with borderline SBPs Coumadin and heparin 12/10 held due to left popliteal fossa hematoma. now on lovenox for prophylactic dose since 12/24. given high risk for bleeding complication and low CHADS-VaSC risk, risk/benefit at this time in favor of holding full anticoagulation. Echo 10/25 EF 60-65%. Repeat echo with bubble study: 11/22: No shunt seen Acute, now chronic hypoxemic Respiratory failure s/p trach 11/27 Spontaneous Right sided PTX secondary to barotrauma - resolved. COPD exacerbation - resolved. Pneumonia most likely community-acquired - resolved. Obesity hypoventilation syndrome Tobacco use disorder albuterol aerosols every 2 hours PRN. Ventilator bundle on T piece - on fenestrated- Passimuir Budesonide 0.5 mg/2 mL aerosols twice a day. on Prednisone 10 mg daily continue to wean s/p trach 11/[address] Martin #[facility]. Pulmonary following. appreciate assistance. s/p 20Fr CT placed for right PTX 11/23, monitor CT drainage. d/c chest tube . CT pulmonary angio revealed no pulmonary embolus. Masslike consolidation in the posterior right upper lobe and medial right lower lobe. Lymphadenopathy to 1 cm right hilum and subcarinal. Atelectasis left lower lobe. Discontinued Prone therapy 11/02/16. continue t-piece as tolerated. BiPAP at hs Ileus - resolved.- improved on dignishield Morbid Obesity Elevated LFT's- now within normal. PEG tube placement 11/30. US liver: No ductal dilatation tube feeds with vital high-protein currently at 50 cc/hr. Metoclopramide 10 mg every 6 hours, change to PO.- DC with the diarrhea 01/04 No Cholecystostomy tube recommended by Dr. Nguyen. Recommended advance diet as tolerated Famotidine 20 milligrams mg twice a day for GI prophylaxis Hyponatremia Hypopotassemia Diarrhea: - improved C diff is negative. on lactinex and imodium. Monitor lytes Monitor renal function, I/O's, electrolytes replacement per protocol. Currently on sodium chloride 1 g every 12 hours Hyperglycemia- good readings on current regimen SSI Q6h on Levemer 8 units SQ bid- -not getting it for past 3 days so Levemir was discontinued. and ff blood sugars Normocytic anemia - stable. Leukocytosis L popliteal fossa hematoma - stable. Monitor closely for compartment syndrome Severe sepsis - resolved. 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 ~ 50% yellow loosely adherent slough is noted at the base, with ~50% pink tissue. I did evaluate the wound. Wound cultures have been obtain. I Add Patel po bid to help with wound healing Sputum: Klebsiella, Stenotrophomonas and Pseudomonas 11/27 Sputum cx 11/23: Kleb, Pseudomonas, s/p (ceftriaxone and fluconazole course). ID is following-Dr. Patel s/p ceftriaxone 11/02-11/09 for Enterobacter pneumonia. Repeat sputum Klebsiella sensitive to Rocephin s/p started on Avicaz 01/10 Flagyl DC- 01/04 C-diff PCR is negative now on Zerbax until 01/16 GI, famotidine. DVT - on lovenox. s/pIV heparin gtt/Coumadin DCd 12/10 due to left popliteal hematoma. Given bleeding complications with low CHADS-VaSC risk, risk/benefit in favor of holding full anticoagulation. 11/09 Doppler US LE negative for DVT Palliative care is following Discharge Planning Difficulty with placement due to IV antibiotics with zerbax last day 01/16 at 2359. Most likely he will need to complete his course of antibiotics in order for a rehabilitation facility as outpatient. Pt Condition on Discharge: Stable Discharge Disposition: Discharge to SNF Discharge Instructions DIET: Follow Instructions for: Heart Healthy Diet Additional Diet Instructions: mechanical soft Ensure shakes three times a day Activities you can perform: Regular-No Restrictions Follow up Referrals: Cardiology - 2 Weeks Pulmonology - 2 Weeks with Laura Haile MD [facility]/ with [facility] New Medications: Amiodarone (Amiodarone) 200 Mg Tab 200 MG OG-TUBE DAILY for atrial fibrillation, #30 TAB 0 Refills Artificial Tear Opth Ointment (Akwa Tears Opth Ointment) 2-15-83% Oint 1 APPLIC EACH EYE Q12HR for dry eyes, #1 TUBE 0 Refills Budesonide Neb (Pulmicort Respules) 0.5 Mg/2 Ml Neb 0.5 MG NEB Q12HR NEB for COPD, #1 VIAL 0 Refills Digoxin (Digoxin) 0.125 Mg Tab 0.125 MG PO DAILY for atrial fibrillation, #30 TAB 0 Refills Diltiazem (Cardizem) 60 Mg Tab 60 MG PO Q6HR for atrial fibrillation, #120 TAB 0 Refills Escitalopram (Escitalopram) 10 Mg Tab 10 MG PO HS for depression, #30 TAB 0 Refills Famotidine (Famotidine) 20 Mg Tab 20 MG NG BID for acid reflux, #60 TAB 0 Refills Furosemide (Furosemide) 20 Mg Tab 20 MG PO DAILY for fluid overload, #30 TAB 0 Refills Lactobacillus Acidophilus (Acidophilus/l-Sporogenes) 35 Million Cell-25 Million Cell Tab 1 TAB PO Q12HR for probiotics, #60 TAB 0 Refills Lisinopril (Lisinopril) 10 Mg Tab 10 MG PO DAILY for hypertension, #30 TAB 0 Refills Metoprolol Tartrate (Metoprolol Tartrate) 25 Mg Tab 25 MG PO Q8HR for atrial fibrillation, #90 TAB 0 Refills Oxycodone HCl/Acetaminophen (Oxycodone-Acetaminophen 5-325) 5 Mg-325 Mg Tablet 1 TAB PO Q4H PRN for moderate to severe pain, #20 TAB 0 Refills Potassium Bicarb-Chloride Effervescent (Effervescent Potassium Chloride 25 Meq) 25 Meq Tab 25 MEQ G-TUBE DAILY for supplement, #30 TAB 0 Refills Sodium Chloride (Sodium Chloride) 1 Gram Tab 1 GM PO Q12HR for hyponatermia, #30 TAB 0 Refills Discontinued Medications: Amlodipine (Amlodipine) 5 Mg Tab 5 MG PO HS for Blood Pressure Management, #30 TAB 0 Refills Lisinopril (Lisinopril) 20 Mg Tab 20 MG PO HS, #30 TAB 0 Refills Dorene Lubin MD Jan 14, 2017 15:05
== END 2017-01-14 17:07 | DRG 4 ==
LOC: NEPE 03:29 → NEDA 05:38 → HIMW 08:00 → HIMN 11-02 11:12 → HIMW 11-02 11:12 → N04A 01-10 23:42
PROVIDERS: ADMIT Internal Medicine Critical Care Medicine; ATTEND Family Medicine
PROC: 0BH17EZ Insertion of Endotracheal Airway into Trachea, Via Natural or Artificial Opening (ICD-10-PCS; 2016-10-25)
PROC: 5A1955Z Respiratory Ventilation, Greater than 96 Consecutive Hours (ICD-10-PCS; 2016-10-25)
PROC: 02HV33Z Insertion of Infusion Device into Superior Vena Cava, Percutaneous Approach (ICD-10-PCS; 2016-10-25)
PROC: 03HY32Z Insertion of Monitoring Device into Upper Artery, Percutaneous Approach (ICD-10-PCS; 2016-10-25)
PROC: 03HY32Z Insertion of Monitoring Device into Upper Artery, Percutaneous Approach (ICD-10-PCS; 2016-11-04)
PROC: 5A1955Z Respiratory Ventilation, Greater than 96 Consecutive Hours (ICD-10-PCS; 2016-11-27)
PROC: 0B113F4 Bypass Trachea to Cutaneous with Tracheostomy Device, Percutaneous Approach (ICD-10-PCS; principal; 2016-11-27 12:45)
PROC: 0DJ08ZZ Inspection of Upper Intestinal Tract, Via Natural or Artificial Opening Endoscopic (ICD-10-PCS; 2016-11-29)
PROC: 0DH63UZ Insertion of Feeding Device into Stomach, Percutaneous Approach (ICD-10-PCS; 2016-11-30)
DX: A41.9 Sepsis, unspecified organism (principal); G62.81 Critical illness polyneuropathy; G72.81 Critical illness myopathy; G93.41 Metabolic encephalopathy; J15.0 Pneumonia due to Klebsiella pneumoniae; J15.1 Pneumonia due to Pseudomonas; J18.9 Pneumonia, unspecified organism; J80 Acute respiratory distress syndrome; J96.01 Acute respiratory failure with hypoxia; I48.92 Unspecified atrial flutter; I48.91 Unspecified atrial fibrillation; J15.6 Pneumonia due to other Gram-negative bacteria; K56.7 Ileus, unspecified; E87.1 Hypo-osmolality and hyponatremia; B37.49 Other urogenital candidiasis; E66.2 Morbid (severe) obesity with alveolar hypoventilation; J93.83 Other pneumothorax; J44.0 Chronic obstructive pulmonary disease with (acute) lower respiratory infection; J44.1 Chronic obstructive pulmonary disease with (acute) exacerbation; Z68.41 Body mass index [BMI] 40.0-44.9, adult; K52.1 Toxic gastroenteritis and colitis; K82.1 Hydrops of gallbladder; L89.154 Pressure ulcer of sacral region, stage 4; R65.20 Severe sepsis without septic shock; E83.41 Hypermagnesemia; E87.70 Fluid overload, unspecified; E87.5 Hyperkalemia; R55 Syncope and collapse; F17.210 Nicotine dependence, cigarettes, uncomplicated; E78.5 Hyperlipidemia, unspecified; I49.3 Ventricular premature depolarization; K44.9 Diaphragmatic hernia without obstruction or gangrene; R73.9 Hyperglycemia, unspecified; E87.6 Hypokalemia; S71.101A Unspecified open wound, right thigh, initial encounter; D64.9 Anemia, unspecified; T36.95XA Adverse effect of unspecified systemic antibiotic, initial encounter; I10 Essential (primary) hypertension; E83.51 Hypocalcemia; E83.39 Other disorders of phosphorus metabolism; E86.0 Dehydration; F32.9 Major depressive disorder, single episode, unspecified; F41.9 Anxiety disorder, unspecified; K20.9 Esophagitis, unspecified; R13.10 Dysphagia, unspecified; M79.81 Nontraumatic hematoma of soft tissue; R79.89 Other specified abnormal findings of blood chemistry; Y95 Nosocomial condition; Z16.24 Resistance to multiple antibiotics; R21 Rash and other nonspecific skin eruption
CPT/HCPCS: 31500; 32551; 36556; 36569; 36600; 36620; 49440; 70450; 70551; 71010; 71250; 71275; 72141; 74000; 74177; 76604; 76705; 76937; 80048; 80053; 80076; 80162; 80202; 81001; 82140; 82150; 82272; 82550; 82565; 82805; 82948; 83605; 83690; 83735; 83880; 84100; 84132; 84145; 84155; 84439; 84443; 84481; 84484; 85007; 85025; 85027; 85384; 85610; 85730; 86631; 86632; 86738; 87015; 87040; 87070; 87077; 87086; 87185; 87186; 87205; 87449; 87493; 87641; 87804; 92960; 93005; 93306; 93308; 93880; 93970; 93971; 94002; 94003; 94640; 94664; 94667; 94799; 95819; 96365; 96375; A7520; A7521; C1769; C1887; J0282; J0360; J0456; J0610; J0695; J0696; J0714; J1100; J1120; J1160; J1325; J1450; J1630; J1642; J1644; J1650; J1815; J1885; J1940; J1956; J2020; J2212; J2248; J2250; J2370; J2405; J2543; J2765; J2920; J2930; J2997; J3010; J3370; J3475; J3480; J7030; J7040; J7050; J7060; J7512; J7608; J7613; J7626; P9047; Q9963; Q9967